=== PATIENT | male | born 1965 | race Caucasian/White ===

== ENCOUNTER 2023-05-31 09:46 | Outpatient (OUT) | payer BC, SELFPAY ==
--- NOTE | 2023-05-31 10:00 | XR_ITS ---
The [address] [address] Patient Name: LIZ SHELBY MRN: [id number] date: 1965 Sex: M Assigned Patient Location: RAD Current Patient Location: [facility] Accession/Order Number: [id number] Exam Date: 05/31/2023 10:00 Report Date: 05/31/2023 13:56 At the request of: PORSCHE AKHTAR Procedure: XR abdomen 1V EXAM: XR abdomen 1V HISTORY: Kidney Stones N20.0 COMPARISON: None. TECHNIQUE: AP view of the abdomen. FINDINGS: Nonobstructive bowel gas pattern is noted. There is a punctate calculus detected region of the right kidney. The osseous structures are intact. XR/XR abdomen 1V IMPRESSION: Nonobstructive bowel gas pattern. Punctate right nephrolithiasis. Electronically authenticated by: LIZ CHASE Date: 05/31/2023 13:56
== END 2023-05-31 09:47 | disposition home or self-care (01) ==
LOC: RAD 09:50
PROVIDERS: PCP Family Medicine; Visit Provider Urology
DX: N20.0 Calculus of kidney (principal)
CPT/HCPCS: 74018

== ENCOUNTER 2023-06-27 09:40 | Outpatient (OUT) | payer BC, SELFPAY ==
[2023-06-27 10:03] LABS: Basophils Absolute Auto 0.1 10^3/uL (0.0-0.1); Basophils Percent Auto 0.6 % (0.2-2.0); Eosinophils Absolute Auto 0.2 10^3/uL (0.0-0.7); Eosinophils Percent Auto 2.5 % (0.9-7.0); Hematocrit 42.8 % (42.0-54.0); Hemoglobin 14.3 g/dL (14.0-18.0); Immature Granulocytes Abs Auto 0.02 10^3/uL (0.00-0.03); Immature Granulocytes Pct Auto 0.2 % (0.0-0.5); Lymphocytes Absolute Auto 1.6 10^3/uL (1.2-3.8); Lymphocytes Percent Auto 20.2 % (20.5-60.0); Mean Corpuscular HGB Conc 33.4 g/dL (29.9-35.2); Mean Corpuscular Hemoglobin 31.4 pg (25.9-34.0); Mean Corpuscular Volume 93.9 fL (80.0-94.0); Mean Platelet Volume 9.4 fL (9.5-13.5); Monocytes Absolute Auto 0.6 10^3/uL (0.3-0.8); Monocytes Percent Auto 6.9 % (1.7-12.0); Neutrophils Absolute Auto 5.7 10^3/uL (1.4-6.5); Neutrophils Percent Auto 69.6 % (43.0-75.0); Platelet Count 287 10^3/uL (150-450); Red Blood Count 4.56 10^6/uL (4.70-6.10); Red Cell Distribution Width 12.4 % (11.0-15.0); White Blood Count 8.1 10^3/uL (4.0-11.0)
[2023-06-27 11:49] LABS: Alanine Aminotransferase 50 U/L (16-63); Albumin Globulin Ratio 1.1; Albumin Level 3.6 g/dL (3.4-5.0); Alkaline Phosphatase 61 U/L (46-116); Anion Gap 11.2; Aspartate Amino Transferase 23 U/L (15-37); BUN Creatinine Ratio 13.1; Bilirubin Total 0.6 mg/dL (0.2-1.0); Calcium 8.7 mg/dL (8.5-10.1); Carbon Dioxide 30.5 mmol/L (21.0-32.0); Chloride 102 mmol/L (98-107); Chol HDL Ratio 4.5; Cholesterol 188 mg/dL (<=200); Estimated GFR (African America >60 (>=60); Estimated GFR (Non-African Ame >60 (>=60); Free T3 2.25 pg/mL (2.18-3.98); Globulin 3.3 g/dL; Glucose 144 mg/dL (74-106); HDL Cholesterol 42 mg/dL (40-60); Potassium 3.7 mmol/L (3.5-5.1); Sodium 140 mmol/L (136-145); Thyroid Stimulating Hormone 5.904 uIU/mL (0.358-3.740); Total Protein 6.9 g/dL (6.4-8.2); Triglycerides 204 mg/dL (<=150); VLDL CHOLESTEROL 40.8 mg/dL
[2023-06-27 11:57] LABS: Prostate Specific Antigen Scrn 0.22 ng/mL (<=4.00)
[2023-06-27 12:05] LABS: Estimated Average Glucose 148 mg/dL; Glycohemoglobin A1C 6.8 % (4.5-6.2)
== END 2023-06-27 09:41 | disposition home or self-care (01) ==
PROVIDERS: PCP Family Medicine; Visit Provider Family Medicine
DX: Z00.00 Encounter for general adult medical examination without abnormal findings (principal); I10 Essential (primary) hypertension; E03.9 Hypothyroidism, unspecified; E11.9 Type 2 diabetes mellitus without complications; Z12.5 Encounter for screening for malignant neoplasm of prostate; D64.9 Anemia, unspecified; Z79.899 Other long term (current) drug therapy
CPT/HCPCS: 36415; 80053; 80061; 83036; 84436; 84443; 84481; 85025; G0103

== ENCOUNTER 2023-07-26 10:05 | Outpatient (OUT) | payer BC, SELFPAY ==
[2023-07-26 10:54] LABS: Free T4 0.95 ng/dL (0.76-1.46)
[2023-07-26 11:47] LABS: Free T3 2.45 pg/mL (2.18-3.98); Thyroid Stimulating Hormone 4.689 uIU/mL (0.358-3.740)
== END 2023-07-26 10:06 | disposition home or self-care (01) ==
PROVIDERS: PCP Family Medicine; Visit Provider Family Medicine
DX: E03.9 Hypothyroidism, unspecified (principal)
CPT/HCPCS: 36415; 84439; 84443; 84481

== ENCOUNTER 2023-09-30 07:50 | Outpatient (OUT) | payer BC, SELFPAY ==
--- OUTSIDE RECORDS SUMMARY | 2023-09-30 07:55 | XMS_ITS | CCD ---
Author Name Unknown Address [address] [place] [address] Organization [facility] Care Team Providers Care Pill Maker Name Role Phone Nancy Fernandez Primary Care Physician [phone] VELVET, DR CRUZ Primary Care Unavailable GIOVANA, DR YOVANY Kwan Consulting Unavailable COOK, DR YOVANY Kwan Admitting Unavailable COOK, DR YOVANY Kwan Attending Unavailable WEST, DR MANSOOR Porras Consulting Unavailable VELVET, DR CRUZ Primary Care Unavailable VELVET, DR CRUZ Admitting Unavailable VELVET, DR CRUZ Attending Unavailable VELVET, DR CRUZ Consulting Unavailable VELVET, DR CRUZ Primary Care Unavailable COOK, DR YOVANY Kwan Admitting Unavailable COOK, DR YOVANY Kwan Attending Unavailable COOK, DR YOVANY Kwan Consulting Unavailable JANIE, DR MANSOOR Porras Consulting Unavailable VELVET, DR CRUZ Primary Care Unavailable GIOVANA, DR YOVANY Kwan Admitting Unavailable COOK, DR YOVANY Kwan Attending Unavailable COOK, DR YOVANY Kwan Consulting Unavailable WEST, DR MANSOOR Porras Consulting Unavailable VELVET, DR CRUZ Admitting Unavailable VELVET, DR CRUZ Attending Unavailable VELVET, DR CRUZ Consulting Unavailable VELVET, DR CRUZ Primary Care Unavailable HUSSEIN, DR SOLO Oliver Consulting Unavailable MARILU MURGUIA Consulting Unavailable VELVET, DR CRUZ Primary Care Unavailable PETAR GARCIA Attending Unavailable PETAR GARCIA Admitting Unavailable VELVET, DR CRUZ Primary Care Unavailable RADHA TINSLEY Consulting Unavailable RADHA TINSLEY Admitting Unavailable RADHA TINSLEY Attending Unavailable BOO GUZMAN Consulting Unavailable VELVET, DR CRUZ Consulting Unavailable VELVET, DR CRUZ Admitting Unavailable VELVET, DR CRUZ Attending Unavailable VELVET, DR CRUZ Primary Care Unavailable TANISHA CHIU Consulting Unavailable Yovany AKHTAR Attending Unavailable Yovany AKHTAR Attending Unavailable Yovany AKHTAR Attending Unavailable Yovany AKHTAR Attending Unavailable Allergies Allergy Classification Reported Allergen(s) Allergy Type Date of Onset Reaction(s) Facility (6 sources) Acetaminophen / HYDROcodone; Translations: [acetaminophen-hyd rocodone] Drug Allergy Hyperactive behavior (finding) [facility] Medications Current Medications Medication Drug Class(es) Dates Sig (Normalized) Sig (Original) Albuterol (5 sources) beta2-Adrenergic Agonist Start: 04-28-2017 take 2 puff(s) by inhalation every six hours as needed for wheezing albuterol = 2 puff(s), Inhalation, q6hr, PRN Wheezing, Refills(s) 0 Start Date: 04/28/17 Status: Ordered ascorbic acid 250 mg oral tablet (1 source) Vitamin C Start: 07-29-2020 take 1 tablet by mouth once daily Vitamin C 250 mg oral tablet 250 mg = 1 tab(s), Oral, Daily, Prophylaxis Start Date: 07/29/20 Status: Ordered carvedilol 25 mg oral tablet (5 sources) alpha-Adrenergic Esperanza, beta-Adrenergic Esperanza Start: 03-06-2019 Coreg 25 mg Tab 37.5 mg = 1.5 tab(s), Oral, BID, Prophylaxis Start Date: 03/06/19 Status: Ordered Daily Multiple Vitamins (5 sources) Start: 02-19-2019 take 1 tablet by mouth once daily Daily Multiple Vitamins 1 tab(s), Oral, Daily, Refill(s) 0, Prophylaxis Start Date: 02/19/19 Status: Ordered diclofenac sodium 75 mg delayed release oral tablet (5 sources) Nonsteroidal Anti-inflammatory Drug Start: 07-29-2020 take 1 tablet by mouth twice daily diclofenac sodium 75 mg Oral EC Tab 75 mg = 1 tab(s), Oral, BID, Refills(s) 0, Inflammation Start Date: 07/29/20 Status: Ordered Start: 07-29-2020 take 1 tablet by cindy th twice daily diclofenac sodium 75 mg Oral EC Tab 75 mg = 1 tab(s), Oral, BID, Refills(s) 0, Inflammation Start Date: 07/29/20 Status: Ordered hydrALAZINE hydrochloride 100 mg oral tablet (5 sources) Arteriolar Vasodilator Start: 04-28-2017 take 100 mg by mouth three times daily hydrALAZINE 100 mg, Oral, TID, Refills(s) 0, High blood pressure Start Date: 04/28/17 Status: Ordered hydroCHLOROthiazide 25 mg oral tablet (5 sources) Thiazide Diuretic Start: 02-19-2019 take 2 tablets by mouth once daily in the morning hydrochlorothiazide 25 mg oral tablet 50 mg = 2 tab(s), Oral, qAM, Refills(s) 0, High blood pressure Start Date: 02/19/19 Status: Ordered levothyroxine sodium 0.05 mg oral tablet (5 sources) l-Thyroxine Start: 07-29-2020 take 1 tablet by mouth once daily levothyroxine 50 mcg (0.05 mg) Tab 50 mcg = 1 tab(s), Oral, Daily, Thyroid Start Date: 07/29/20 Status: Ordered Start: 07-29-2020 take 1 tablet by cindy th once daily levothyroxine 50 mcg (0.05 mg) Tab 50 mcg = 1 tab(s), Oral, Daily, Thyroid Start Date: 07/29/20 Status: Ordered metFORMIN hydrochloride 500 mg oral tablet (5 sources) Biguanide Start: 05-08-2020 take 1 tablet by mouth twice daily metformin 500 mg ER Tab 500 mg = 1 tab(s), Oral, BID, Refills(s) 0, Blood glucose Start Date: 05/08/20 Status: Ordered olmesartan medoxomil 40 mg oral tablet (5 sources) Angiotensin 2 Receptor Esperanza Start: 03-06-2019 take 1 tablet by mouth at bedtime Benicar 40 mg Tab 40 mg = 1 tab(s), Oral, Bedtime, High blood pressure Start Date: 03/06/19 Status: Ordered pravastatin sodium 20 mg oral tablet (5 sources) HMG-CoA Reductase Inhibitor Start: 04-28-2017 take 20 mg by mouth once daily pravastatin 20 mg, Oral, Daily, Refills(s) 0, High cholesterol Start Date: 04/28/17 Status: Ordered tamsulosin hydrochloride 0.4 mg oral capsule (2 sources) alpha-Adrenergic Esperanza Start: 06-10-2022 take 1 capsule by mouth once daily tamsulosin 0.4 mg Cap 0.4 mg = 1 cap(s), Oral, Daily, # 30 cap(s), Refills(s) 2, Pharmacy: [facility] [place] #[id number], 188, cm, 06/10/22 9:57:00 EDT, Height/Length Dosing, 150, kg, 06/10/22 9:57:00 EDT, Weight Dosing Start Date: 06/10/22 Status: Ordered Ultram (5 sources) Opioid Agonist Start: 01-15-2021 take 1 mg by mouth every six hours as needed for pain Ultram mg, Oral, q6hr, PRN Pain/Fever, Refills(s) 0 Start Date: 01/15/21 Status: Ordered Vitamin C 250 mg oral tablet (4 sources) Start: 07-29-2020 take 1 tablet by mouth once daily Vitamin C 250 mg oral tablet 250 mg = 1 tab(s), Oral, Daily, Prophylaxis Start Date: 07/29/20 Status: Ordered Problems Active Problems Problem Classification Problem Date Documented Date Episodic/Chronic Abdominal pain (4 sources) Unspecified abdominal pain; Translations: [UNSPECIFIED ABDOMINAL PAIN] Onset: 05-29-20 Episodic Calculus of urinary tract (19 sources) Kidney stone; Translations: [Calculus of kidney] Onset: 01-22-20 Episodic Diabetes mellitus without complication (5 sources) Type 2 diabetes mellitus 02-19-2019 Chronic Esophageal disorders (5 sources) Gastroesophageal reflux disease 07-29-2020 Chronic Essential hypertension (6 sources) Hypertensive disorder; Translations: [Essential (primary) hypertension] Onset: 05-31-2007-29-2020 Chronic Genitourinary symptoms and ill-defined conditions (5 sources) Nocturia 07-10-2020 Episodic Hyperplasia of prostate (9 sources) Benign prostatic hypertrophy without outflow obstruction; Translations: [Benign prostatic hyperplasia without lower urinary tract symptoms] Onset: 01-22-20 Chronic Neoplasms of unspecified nature or uncertain behavior (5 sources) Neoplasm of uncertain behavior of skin 07-29-2020 Episodic Osteoarthritis (5 sources) Osteoarthritis 02-19-2019 Chronic Other aftercare (5 sources) Long-term current use of anticoagulant 02-19-2019 Episodic Other aftercare (1 source) Other long term care administrator (current) drug therapy; Translations: [OTH USP CURRENT DRUG THERAPY] Onset: 05-31-20 Episodic Other aftercare (1 source) senior care (current) use of aspirin; Translations: [USP CURRENT USE OF ASPIRIN] Onset: 05-31-20 Episodic Other and unspecified benign neoplasm (5 sources) Dermatofibroma 02-19-2019 Episodic Other circulatory disease (5 sources) H/O: cardiovascular disease 04-28-2017 Episodic Comment on above: superficial left leg february 2017 Other lower respiratory disease (5 sources) History of chronic lung disease 04-28-2017 Episodic Other nutritional; endocrine; and metabolic disorders (5 sources) Body mass index 40+ - severely obese 07-10-2020 Chronic Other nutritional; endocrine; and metabolic disorders (1 source) Obesity, unspecified; Translations: [OBESITY UNSPECIFIED] Onset: 05-31-20 Chronic Other nutritional; endocrine; and metabolic disorders (1 source) Body mass index (BMI) 40.0-44.9, adult; Translations: [BODY MASS INDEX BMI 40.0-44.9 ADULT] Onset: 05-31-20 Chronic Other nutritional; endocrine; and metabolic disorders (5 sources) History of hypercholesterolemia 04-28-2017 Episodic Other screening for suspected conditions (not mental disorders or infectious disease) (5 sources) Raised prostate specific antigen 07-10-2020 Episodic Phlebitis; thrombophlebitis and thromboembolism (5 sources) Thrombophlebitis of lower extremities 07-29-2020 Episodic Residual codes; unclassified (5 sources) H/O: anticoagulant therapy 07-10-2020 Episodic Spondylosis; intervertebral disc disorders; other back problems (5 sources) Other intervertebral disc displacement, lumbar region; Translations: [Other intervertebral disc degeneration, lumbar region] Onset: 09-29-19 Chronic Thyroid disorders (5 sources) Hypothyroidism 07-29-2020 Chronic Urinary tract infections (1 source) Urinary tract infection, site not specified; Translations: [UTI SITE NOT SPECIFIED] Onset: 05-31-20 Episodic Past or Other Problems Problem Classification Problem Date Documented Da te Episodic/Chronic E Codes: Cut/pierceb (1 source) Contact with other sharp object(s), not elsewhere classified, initial encounter; Translations: [[facility] OT SHRP OB NOT ELSW CLASS INI] Onset: 10-01-2021 Episodic Immunizations and screening for infectious disease (1 source) Encounter for immunization; Translations: [ENCOUNTER FOR IMMUNIZATION] Onset: 10-01-2021 Episodic Open wounds of extremities (4 sources) Laceration without foreign body of left wrist, initial encounter; Translations: [LACERATION W/O FB LT WRIST INITIAL] Onset: 09-29-2021 Episodic Results Test Name Value Interpretation Reference Range Facility Screenson 06-07-2023 Screens [id number]# 1.00CD:127 [facility] Ambulatory Visit Summaryon 1 Ambulatory Visit Summary LIZ SHELBY :1965 Visit Date:06/06/2023 Ambulatory Visit Instructions Your Diagnosis BPH (benign prostatic hyperplasia) Kidney stone Tests Performed Urnls Dip Stick Auto w/o Microscopy POC 02919 XR Abdomen 1 View -- Results Pending -- Please visit your patient portal for your results or contact your primary care physician. Your Care Team Attending Physician - Yovany AKHTAR MD Primary Care Physician - Nancy Fernandez MD This Is Your Medications List albuterol ascorbic acid (Vitamin C 250 mg oral tablet) carvedilol (Coreg 25 mg Tab) diclofenac (diclofenac sodium 75 mg Oral EC Tab) hydrALAZINE hydrochlorothiazide (hydrochlorothiazide 25 mg oral tablet) levothyroxine (levothyroxine 50 mcg (0.05 mg) Tab) metformin (metformin 500 mg ER Tab) multivitamin (Daily Multiple Vitamins) olmesartan (Benicar 40 mg Tab) pravastatin tramadol (Ultram) Procedures Performed ESWL - Extracorporeal shockwave lithotripsy for renal calculus (05/26/2022), ESWL - Extracorporeal shockwave lithotripsy for renal calculus (08/13/2020), Closure of anal fistula, Dental surgical procedure, Gallbladder, History of tonsillectomy, Kidney stones, l4 l5 disectomy, carlo anal abcess. Discharge Vitals Heart Rate (Peripheral) 83 Blood Pressure 142/66 Height 188 cm Height 74 in Weight 145.2 kg Weight 319.44 lb BMI 41.08 What to do next Scheduled Follow-Up Appointments Monday 8:00 AM EDT With: Yovany AKHTAR MD Where: [facility] Patient Educationon 06-06-20 Patient Education Nephrology Dietary Guidelines to Help Prevent Kidney Stones Kidney stones are deposits of minerals and salts that form inside your kidneys. Your risk of developing kidney stones may be greater depending on your diet, your lifestyle, the medicines you take, and whether you have certain medical conditions. Most people can lower their chances of developing kidney stones by following the instructions below. Your dietitian may give you more specific instructions depending on your overall health and the type of kidney stones you tend to develop. What are tips for following this plan? Reading food labels ? Choose foods with no salt added or low-salt labels. Limit your salt (sodium) intake to less than 1,500 mg a day. ? Choose foods with calcium for each meal and snack. Try to eat about 300 mg of calcium at each meal. Foods that contain 200?500 mg of calcium a serving include: ? 8 oz (237 mL) of milk, calcium-fortifiednon- dairy milk, and calcium-fortifiedfrui t juice. Calcium-fortified means that calcium has been added to these drinks. ? 8 oz (237 mL) of kefir, yogurt, and soy yogurt. ? 4 oz (114 g) of tofu. ? 1 oz (28 g) of cheese. ? 1 cup (150 g) of dried figs. ? 1 cup (91 g) of cooked broccoli. ? One 3 oz (85 g) can of sardines or mackerel. Most people need 1,000?1,500 mg of calcium a day. Talk to your dietitian about how much calcium is recommended for you. Shopping ? Buy plenty of fresh fruits and vegetables. Most people do not need to avoid fruits and vegetables, even if these foods contain nutrients that may contribute to kidney stones. ? When shopping for convenience foods, choose: ? Whole pieces of fruit. ? Pre-made salads with dressing on the side. ? Low-fat fruit and yogurt smoothies. ? Avoid buying frozen meals or prepared deli foods. These can be high in sodium. ? Look for foods with live cultures, such as yogurt and kefir. ? Choose high-fiber grains, such as whole-wheat breads, oat bran, and wheat cereals. Cooking ? Do not add salt to food when cooking. Place a salt shaker on the table and allow each person to add his or her own salt to taste. ? Use vegetable protein, such as beans, textured vegetable protein (TVP), or tofu, instead of meat in pasta, casseroles, and soups. Meal planning ? Eat less salt, if told by your dietitian. To do this: ? Avoid eating processed or pre-made food. ? Avoid eating fast food. ? Eat less animal protein, including cheese, meat, poultry, or fish, if told by your dietitian. To do this: ? Limit the number of times you have meat, poultry, fish, or cheese each week. Eat a diet free of meat at least 2 days a week. ? Eat only one serving each day of meat, poultry, fish, or seafood. ? When you prepare animal protein, cut pieces into small portion sizes. For most meat and fish, one serving is about the size of the palm of your hand. ? Eat at least five servings of fresh fruits and vegetables each day. To do this: ? Keep fruits and vegetables on hand for snacks. ? Eat one piece of fruit or a handful of berries with breakfast. ? Have a salad and fruit at lunch. ? Have two kinds of vegetables at dinner. ? Limit foods that are high in a substance called oxalate. These include: ? Spinach (cooked), rhubarb, beets, sweet potatoes, and Cymro chard. ? Peanuts. ? Potato chips, martiniquais fries, and baked potatoes with skin on. ? Nuts and nut products. ? Chocolate. ? If you regularly take a diuretic medicine, make sure to eat at least 1 or 2 servings of fruits or vegetables that are high in potassium each day. These include: ? Avocado. ? Banana. ? [place]stone, prune, carrot, or tomato juice. ? Baked potato. ? Cabbage. ? Beans and split peas. Lifestyle ? Drink enough fluid to keep your urine pale yellow. This is the most important thing you can do. Spread your fluid intake throughout the day. ? If you drink alcohol: ? Limit how much you use to: ? 0?1 drink a day for women who are not . ? 0?2 drinks a day for men. ? Be aware of how much alcohol is in your drink. In the [place] one drink equals one 12 oz bottle of beer (355 mL), one 5 oz glass of wine (148 mL), or one 1? oz glass of hard liquor (44 mL). ? Lose weight if told by your health care provider. Work with your dietitian to find an eating plan and weight loss strategies that work best for you. General information ? Talk to your health care provider and dietitian about taking daily supplements. You may be told the following depending on your health and the cause of your kidney stones: ? Not to take supplements with vitamin C. ? To take a calcium supplement. ? To take a daily probiotic supplement. ? To take other supplements such as magnesium, fish oil, or vitamin B6. ? Take yksg-yrn-lynswiv and prescription medicines only as told by your health care provider. These include supplements. What foods should I limit? Limit your in (more content not included)... [facility] Urology Office/Clinic Noteon 06-06-2023 Urology Office/Clinic Note Chief Complaint 1 year follow up w/ KUB HPI Staff 1 yr f/u w/ KUB Previous DX:BPH and Kidney Stones. PSA are managed by PCP. S/p ESWL 08/13/20, 05/26/22 S/p Rt Lithotripsy 05/26/22 KUB done on 05/31/23. Dysuria: denies pain and burning Incomplete bladder emptying: denies Hematuria: denies visible blood Frequency: denies Urgency: denies Nocturia: denies Stream: denies hesitancy, good stream Leaking: denies Post void dripping: denies Wearing pads/ Depends: denies Urge incontinence: denies Stress incontinence: denies Incontinence without Sensory Awareness: denies Abdominal pain: denies Flank pain: denies Sexual complaints: denies History of Present Illness Tests reviewed: reviewed UA and KUB. I have reviewed the previous health record information and history for this patient from . I have reviewed and verified the staff HPI to be accurate for this encounter. There have been no associated fever, chills, flank pain, or blood in the urine. Denies any urinary infections since last encounter. Review of Systems PHQ Score Initial Depression Screen Score: 0 ROS - Provider Constitutional: denies weight loss, denies hot flashes. Eyes: denies eye problems. Gastrointestinal: denies nausea, denies vomiting. Cardiovascular: denies chest pain or angina. Integumentary: no dryness Musculoskeletal: denies musculoskeletal symptoms. ENMT: denies otolaryngeal symptoms. Respiratory: no shortness of breath. Heme/Lymph: denies easy bleeding tendency, denies easy bruising tendency. Psychiatric: no confusion, no anxiety. Genitourinary: See HPI. Physical Exam Vitals & Measurements HR: 83(Peripheral) BP: 142/66 HT: 74 in HT: 188 cm WT: 145.2 kg WT: 319.44 lb BMI: 41.08 General Appearance: alert, no distress, well nourished, well developed male. Assessment/Plan 1. BPH (benign prostatic hyperplasia) (N40.0: Benign prostatic hyperplasia without lower urinary tract symptoms) Most recent PSA 0.3 and 33.0% done 01/14/2021. Prior PSA was done 07/07/20 and was 0.5 which is down from 5.5 which was done 04/15/20. Gets his PSA every year from his PCP . UA today is negative for blood and infection. IPSS 3 Pt has no urinary complaints at this time. 2. Kidney stone (N20.0: Calculus of kidney) S/p ESWL 08/13/2020 S/P ESWL done 05/26/22 S/P RT Lithotripsy 05/26/22 KUB 06/16/22- neg for stones KUB 05/31/23 - punctate Rt nephrolithiasis Discussed imaging findings with pt, may have a stone in the Rt kidney, hard to view with bowels in the way. Advised pt that it is small enough to pass on it's own and will need to be monitored with routine imaging. Advised pt to drink more fluids. Follow up in 1 yr w/ KUB. All questions/concerns were discussed. Pt to call the office if he encounters any issues prior. Pt acknowledges understanding. -Will order KUB. -Encourage to continue drinking plenty of water, and adding citrate such as lemonade, lemon juice, or crystal light to help prevent making any stones. Overall the patient is doing well. He has had no stone passage since last visit. Reviewed KUB. There appears to be a 2 to 3 mm stone in the right lower pole. He does have some overlying bowel gas and stool. At this point Dr. Fernandez is still checking PSA levels and his level has remained in acceptable range despite a previous elevation to 5.5. 1 year follow-up Follow-up With When Contact Information GIOVANA CANTOR, Yovayn Kwan, URL In 1 year [address] [address]- Additional Instructions: w/KUB Patient Education Dietary Guidelines to Help Prevent Kidney Stones I, Maura Teixeira, personally scribed for Dr. Akhtar on 06/06/2023 09:27:44. . Documentation recorded by the scribe, Maura Teixeira, accurately reflects the services(s) I performed and decisions made by me. Authenticated by Dr. Akhtar on 06/06/2023 09:31:33. Portions of this record may have been created with voice recognition artificial intelligence software, specifically AGELON ?, Meta and or Cordium. Substitutions may have occurred due to the inherent limitations of voice recognition and artificial intelligence software. Problem List/Past Medical History Ongoing BMI 40.0-44.9, adult BPH (benign prostatic hyperplasia) Chronic anticoagulation Dermatofibroma of left upper arm Diabetes mellitus type 2, noninsulin dependent Elevated PSA Hx of longterm use of blood thinners Kidney stone Nocturia Osteoarthritis Historical GERD (gastroesophageal reflux disease) Neoplasm of uncertain behavior of skin Thrombophlebitis of lower extremities Procedure/Surgical History ESWL - Extracorporeal shockwave lithotripsy for renal calculus (05/26/2022), ESWL - Extracorporeal shockwave lithotripsy for renal calculus (08/13/2020), Closure of anal fistula, Dental surgical procedure, Gallbladder, (more content not included)... [facility] Comment on above: Result Comment: Elec tronically Signed By: Yovany AKHTAR MD\.br\Date and Time Signed: 06/06/23 09:32 EDT\.br\Electronically Co-Signed By: Maura Teixeira.br\Date and Time Co-Signed: 06/06/23 09:28 EDT RAD - MISCon 05-31-2023 RAD - MISC [id number]. 00CD:127 [facility] RAD - MISCon 06-20-2022 RAD - MISC [id number] .00CD:127 [facility] [id number] .00CD:127 [facility] Patient Educationon 06-17-20 Patient Education Urology Dietary Guidelines to Help Prevent Kidney Stones Kidney stones are deposits of minerals and salts that form inside your kidneys. Your risk of developing kidney stones may be greater depending on your diet, your lifestyle, the medicines you take, and whether you have certain medical conditions. Most people can reduce their chances of developing kidney stones by following the instructions below. Depending on your overall health and the type of kidney stones you tend to develop, your dietitian may give you more specific instructions. What are tips for following this plan? Reading food labels ? Choose foods with no salt added or low-salt labels. Limit your sodium intake to less than 1500 mg per day. ? Choose foods with calcium for each meal and snack. Try to eat about 300 mg of calcium at each meal. Foods that contain 200?500 mg of calcium per serving include: ? 8 oz (237 ml) of milk, fortified nondairy milk, and fortified fruit juice. ? 8 oz (237 ml) of kefir, yogurt, and soy yogurt. ? 4 oz (118 ml) of tofu. ? 1 oz of cheese. ? 1 cup (300 g) of dried figs. ? 1 cup (91 g) of cooked broccoli. ? 1?3 oz can of sardines or mackerel. ? Most people need 1000 to 1500 mg of calcium each day. Talk to your dietitian about how much calcium is recommended for you. Shopping ? Buy plenty of fresh fruits and vegetables. Most people do not need to avoid fruits and vegetables, even if they contain nutrients that may contribute to kidney stones. ? When shopping for convenience foods, choose: ? Whole pieces of fruit. ? Premade salads with dressing on the side. ? Low-fat fruit and yogurt smoothies. ? Avoid buying frozen meals or prepared deli foods. ? Look for foods with live cultures, such as yogurt and kefir. Cooking ? Do not add salt to food when cooking. Place a salt shaker on the table and allow each person to add his or her own salt to taste. ? Use vegetable protein, such as beans, textured vegetable protein (TVP), or tofu instead of meat in pasta, casseroles, and soups. Meal planning ? Eat less salt, if told by your dietitian. To do this: ? Avoid eating processed or premade food. ? Avoid eating fast food. ? Eat less animal protein, including cheese, meat, poultry, or fish, if told by your dietitian. To do this: ? Limit the number of times you have meat, poultry, fish, or cheese each week. Eat a diet free of meat at least 2 days a week. ? Eat only one serving each day of meat, poultry, fish, or seafood. ? When you prepare animal protein, cut pieces into small portion sizes. For most meat and fish, one serving is about the size of one deck of cards. ? Eat at least 5 servings of fresh fruits and vegetables each day. To do this: ? Keep fruits and vegetables on hand for snacks. ? Eat 1 piece of fruit or a handful of berries with breakfast. ? Have a salad and fruit at lunch. ? Have two kinds of vegetables at dinner. ? Limit foods that are high in a substance called oxalate. These include: ? Spinach. ? Rhubarb. ? Beets. ? Potato chips and martiniquais fries. ? Nuts. ? If you regularly take a diuretic medicine, make sure to eat at least 1?2 fruits or vegetables high in potassium each day. These include: ? Avocado. ? Banana. ? Blackstone, prune, carrot, or tomato juice. ? Baked potato. ? Cabbage. ? Beans and split peas. General instructions ? Drink enough fluid to keep your urine clear or pale yellow. This is the most important thing you can do. ? Talk to your health care provider and dietitian about taking daily supplements. Depending on your health and the cause of your kidney stones, you may be advised: ? Not to take supplements with vitamin C. ? To take a calcium supplement. ? To take a daily probiotic supplement. ? To take other supplements such as magnesium, fish oil, or vitamin B6. ? Take all medicines and supplements as told by your health care provider. ? Limit alcohol intake to no more than 1 drink a day for non women and 2 drinks a day for men. One drink equals 12 oz of beer, 5 oz of wine, or 1? oz of hard liquor. ? Lose weight if told by your health care provider. Work with your dietitian to find strategies and an eating plan that works best for you. What foods are not recommended? Limit your intake of the following foods, or as told by your dietitian. Talk to your dietitian about specific foods you should avoid based on the type of kidney stones and your overall health. Grains Breads. Bagels. Rolls. Baked goods. Salted crackers. Cereal. Pasta. Vegetables Spinach. Rhubarb. Beets. Canned vegetables. Pickles. Olives. Meats and other protein foods Nuts. Nut butters. Large portions of meat, poultry, or fish. Salted or cured meats. Deli meats. Hot dogs. Sausages. Dairy Cheese. Beverages Regular soft drinks. Regular vegetable juice. Seasonings and other foods Seasoning blends with salt. Salad dr (more content not included)... Normal [facility] Urology Office/Clinic Noteon 06-17-2022 Urology Office/Clinic Note Chief Complaint 1 week follow up w/ KUB HPI Staff 1 week follow up w/ KUB. Previous DX: elevated PSA, kidney stones, nocturia. S/P ESWL done 05/26/22. Dysuria: denies pain and burning Incomplete bladder emptying: denies Hematuria: denies visible blood Frequency: denies Urgency: denies Nocturia: denies Stream: denies Leaking: denies Post void dripping: denies Wearing pads/ Depends: denies Urge incontinence: denies Stress incontinence: denies Incontinence without Sensory Awareness: denies Abdominal pain: denies Flank pain: denies Sexual complaints: denies History of Present Illness Tests Reviewed: Reviewed UA. I have reviewed and verified the staff HPI to be accurate for this encounter. I have reviewed the previous health record information and history for this patient from Dr. Akhtar There have been no associated fever, chills, flank pain, or blood in the urine. Denies any urinary infections since last encounter. Review of Systems PHQ Score Initial Depression Screen Score: 0 ROS - Provider Constitutional: denies weight loss, denies hot flashes. Eyes: denies eye problems. Gastrointestinal: denies nausea, denies vomiting. Cardiovascular: denies chest pain or angina. Integumentary: no dryness Musculoskeletal: denies musculoskeletal symptoms. ENMT: denies otolaryngeal symptoms. Respiratory: no shortness of breath. Heme/Lymph: denies easy bleeding tendency, denies easy bruising tendency. Psychiatric: no confusion, no anxiety. Genitourinary: denies dysuria, denies hematuria, denies discharge, denies urinary frequency, denies urinary hesitancy, denies nocturia, denies incontinence, denies genital sores, denies decreased libido, and denies erectile dysfunction. Physical Exam Vitals & Measurements HR: 67(Peripheral) BP: 159/96 HT: 74 in HT: 188 cm WT: 150 kg WT: 330 lb BMI: 42.44 General Appearance: alert, no distress, well nourished, well developed male. Genitourinary: normal scrotum, normal testes, normal urethra, normal epididymis, normal vas deferens/spermatic cord. Flank Pain: none. Bladder: nonpalpable. Assessment/Plan 1. BPH (benign prostatic hyperplasia) (N40.0: Benign prostatic hyperplasia without lower urinary tract symptoms) - Most recent PSA 0.3 and 33.0% done 01/14/2021. Prior PSA was done 07/07/20 and was 0.5 which is down from 5.5 which was done 04/15/20. Gets his PSA every year from his PCP . - Pt has no urinary complaints at this time. 2. Kidney stones (N20.0: Calculus of kidney) - S/p ESWL 08/13/2020 - S/P ESWL done 05/26/22 - S/P RT Lithotripsy 05/26/22 - KUB 06/16/22- neg for stones - Pt brought stones in that he passed. - Advised pt that he can d/c Flomax - Pt had 24 hour urine in the past, discussed repeating 24 hour, to see if the results will shows anything new, to help prevent forming stones. - Pt will like to proceed with dietary modifications to help prevent forming stones. - Encourage to continue drinking plenty of water, and adding citrate such as lemonade, lemon juice, or crystal light to help prevent making any stones. - Will continue to monitor for any stones with repeat KUB in 6 months. Pt agrees with plan. He knows to call our office if he develops any stone complications prior to next appt. Overall the patient has passed very large stone fragments which will exceed the 6 mm stone with documented by CT scan. I informed the patient that he should be quite happy to have passed a stone fragment this large. KUB reviewed demonstrating no obvious calcifications. He is already on the low oxalate diet as well delineated above. Plan will be for a 6-month follow-up with KUB Follow-up With When Contact Information Yovany AKHTAR MD, URL Within 6 months [address] [place], [place] [id number]- Additional Instructions: w/ KUB Patient Education Dietary Guidelines to Help Prevent Kidney Stones I, Lucero Robles, personally scribed for Dr. Akhtar on 06/17/2022 09:35:39. . Documentation recorded by the scribe, Lucero Robles, accurately reflects the services(s) I performed and decisions made by me. Authenticated by Dr. Akhtar on 06/17/2022 09:37:11. 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 Normal [facility] Comment on above: Result Comment: Elec tronically Signed By: Yovany AKHTAR MD\.br\Date and Time Signed: 06/17/22 09:37 EDT\.br\Electronically Co-Signed By: Lucero Robles\.br\Date and Time Co-Signed: 06/17/22 09:35 EDT XR KUB 1 VIEWon 06-16-2022 XR KUB 1 VIEW EXAMINATION: XR KUB 1 VIEW HISTORY: Kidney stone COMPARISON: 06/09/2022 FINDINGS: KIDNEY/URETER - RIGHT: No visible renal or ureteral calcifications. KIDNEY/URETER - LEFT: No visible renal or ureteral calcifications. PELVIS: No visible ureteral calcifications. Any visible calcifications favor phleboliths. BOWEL: No abnormal dilation or deviation. BONES: No acute abnormality. OTHER: Negative. No abnormal gaseous collections. IMPRESSION: No definite urinary tract calculi Electronically authenticated by: MANSOOR LIMA Date: 2022-06-16 18:56 Normal [facility] Patient Educationon 06-10-20 Patient Education Urology Dietary Guidelines to Help Prevent Kidney Stones Kidney stones are deposits of minerals and salts that form inside your kidneys. Your risk of developing kidney stones may be greater depending on your diet, your lifestyle, the medicines you take, and whether you have certain medical conditions. Most people can reduce their chances of developing kidney stones by following the instructions below. Depending on your overall health and the type of kidney stones you tend to develop, your dietitian may give you more specific instructions. What are tips for following this plan? Reading food labels ? Choose foods with no salt added or low-salt labels. Limit your sodium intake to less than 1500 mg per day. ? Choose foods with calcium for each meal and snack. Try to eat about 300 mg of calcium at each meal. Foods that contain 200?500 mg of calcium per serving include: ? 8 oz (237 ml) of milk, fortified nondairy milk, and fortified fruit juice. ? 8 oz (237 ml) of kefir, yogurt, and soy yogurt. ? 4 oz (118 ml) of tofu. ? 1 oz of cheese. ? 1 cup (300 g) of dried figs. ? 1 cup (91 g) of cooked broccoli. ? 1?3 oz can of sardines or mackerel. ? Most people need 1000 to 1500 mg of calcium each day. Talk to your dietitian about how much calcium is recommended for you. Shopping ? Buy plenty of fresh fruits and vegetables. Most people do not need to avoid fruits and vegetables, even if they contain nutrients that may contribute to kidney stones. ? When shopping for convenience foods, choose: ? Whole pieces of fruit. ? Premade salads with dressing on the side. ? Low-fat fruit and yogurt smoothies. ? Avoid buying frozen meals or prepared deli foods. ? Look for foods with live cultures, such as yogurt and kefir. Cooking ? Do not add salt to food when cooking. Place a salt shaker on the table and allow each person to add his or her own salt to taste. ? Use vegetable protein, such as beans, textured vegetable protein (TVP), or tofu instead of meat in pasta, casseroles, and soups. Meal planning ? Eat less salt, if told by your dietitian. To do this: ? Avoid eating processed or premade food. ? Avoid eating fast food. ? Eat less animal protein, including cheese, meat, poultry, or fish, if told by your dietitian. To do this: ? Limit the number of times you have meat, poultry, fish, or cheese each week. Eat a diet free of meat at least 2 days a week. ? Eat only one serving each day of meat, poultry, fish, or seafood. ? When you prepare animal protein, cut pieces into small portion sizes. For most meat and fish, one serving is about the size of one deck of cards. ? Eat at least 5 servings of fresh fruits and vegetables each day. To do this: ? Keep fruits and vegetables on hand for snacks. ? Eat 1 piece of fruit or a handful of berries with breakfast. ? Have a salad and fruit at lunch. ? Have two kinds of vegetables at dinner. ? Limit foods that are high in a substance called oxalate. These include: ? Spinach. ? Rhubarb. ? Beets. ? Potato chips and martiniquais fries. ? Nuts. ? If you regularly take a diuretic medicine, make sure to eat at least 1?2 fruits or vegetables high in potassium each day. These include: ? Avocado. ? Banana. ? Blackstone, prune, carrot, or tomato juice. ? Baked potato. ? Cabbage. ? Beans and split peas. General instructions ? Drink enough fluid to keep your urine clear or pale yellow. This is the most important thing you can do. ? Talk to your health care provider and dietitian about taking daily supplements. Depending on your health and the cause of your kidney stones, you may be advised: ? Not to take supplements with vitamin C. ? To take a calcium supplement. ? To take a daily probiotic supplement. ? To take other supplements such as magnesium, fish oil, or vitamin B6. ? Take all medicines and supplements as told by your health care provider. ? Limit alcohol intake to no more than 1 drink a day for non women and 2 drinks a day for men. One drink equals 12 oz of beer, 5 oz of wine, or 1? oz of hard liquor. ? Lose weight if told by your health care provider. Work with your dietitian to find strategies and an eating plan that works best for you. What foods are not recommended? Limit your intake of the following foods, or as told by your dietitian. Talk to your dietitian about specific foods you should avoid based on the type of kidney stones and your overall health. Grains Breads. Bagels. Rolls. Baked goods. Salted crackers. Cereal. Pasta. Vegetables Spinach. Rhubarb. Beets. Canned vegetables. Pickles. Olives. Meats and other protein foods Nuts. Nut butters. Large portions of meat, poultry, or fish. Salted or cured meats. Deli meats. Hot dogs. Sausages. Dairy Cheese. Beverages Regular soft drinks. Regular vegetable juice. Seasonings and other foods Seasoning blends with salt. Anjana cruz (more content not included)... [facility] [phone] [id number] Normal [facility] Urology Office/Clinic Noteon 06-10-2022 Urology Office/Clinic Note Chief Complaint Follow up HPI Staff Pt is here for PO ESWL. Pt went to [facility] 05/29/22 for right flank pain. CT showed kidneys, ureters and bladder: 2mm right distal ureteral calculus and 6mm right UPJ stone w/ hydronephrosis. Dysuria: denies pain, some burning Incomplete bladder emptying: denies Hematuria: denies visible blood Frequency: 6-7x a day Urgency: sometimes Nocturia: 2x a night Stream: denies hesitancy, denies weak stream Leaking: yes Post void dripping: yes Wearing pads/ Depends: denies Urge incontinence: yes Stress incontinence: denies Incontinence without Sensory Awareness: denies Abdominal pain: yes Flank pain: denies Sexual complaints: denies History of Present Illness Tests Reviewed: Reviewed UA. I have reviewed and verified the staff HPI to be accurate for this encounter. I have reviewed the previous health record information and history for this patient from Dr. Akhtar There have been no associated fever, chills, flank pain, or blood in the urine. Denies any urinary infections since last encounter. Review of Systems PHQ Score Initial Depression Screen Score: 0 ROS - Provider Constitutional: denies weight loss, denies hot flashes. Eyes: denies eye problems. Gastrointestinal: denies nausea, denies vomiting. Cardiovascular: denies chest pain or angina. Integumentary: no dryness Musculoskeletal: denies musculoskeletal symptoms. ENMT: denies otolaryngeal symptoms. Respiratory: no shortness of breath. Heme/Lymph: denies easy bleeding tendency, denies easy bruising tendency. Psychiatric: no confusion, no anxiety. Genitourinary: denies dysuria, denies hematuria, denies discharge, denies urinary frequency, denies urinary hesitancy, denies nocturia, denies incontinence, denies genital sores, denies decreased libido, and denies erectile dysfunction. Physical Exam Vitals & Measurements HR: 68(Peripheral) BP: 166/102 HT: 74 in HT: 188 cm WT: 150 kg WT: 330 lb BMI: 42.44 General Appearance: alert, no distress, well nourished, well developed male. Genitourinary: normal scrotum, normal testes, normal urethra, normal epididymis, normal vas deferens/spermatic cord. Flank Pain: none. Bladder: nonpalpable. Assessment/Plan 1. BPH (benign prostatic hyperplasia) (N40.0: Benign prostatic hyperplasia without lower urinary tract symptoms) - UA today is clear/neg for any blood or infections - Most recent PSA 0.3 and 33.0% done 01/14/2021. Prior PSA was done 07/07/20 and was 0.5 which is down from 5.5 which was done 04/15/20. Gets his PSA every year from his PCP . - Pt has no urinary complaints at this time. 2. Kidney stones (N20.0: Calculus of kidney) - S/p ESWL 08/13/2020 - CT done 05/29/22 at [facility] showed 2mm right distal ureteral calculus. Additional 6mm right UPJ calculus - S/P RT Lithotripsy 05/26/22 - KUB done 06/09/22 at [facility] stated there is no visible renal or ureteral calcifications. - Pt denies any flank pain today - Pt brought in a kidney stone that he has passed recently - Pt may still have stone fragments in his ureter distally. Discussed options for treatment, such as waiting to see if he can pass the remaining stones on his own, or to schedule a surgical procedure such as laser lithotripsy. Stone frags appear to be distal on KUB. These may have travelled distally compared to prior CT scan. - Pt knows the risks of waiting instead of proceeding with a surgical procedure, and still would like to wait, and then f/u with our office in two weeks with a KUB. - Pt will start Flomax 0.4mg qd to help him pass the remaining fragments. Discussed the medication side effects, and the patient will monitor closely for these, as well as for symptom improvement. If severe side effects occur, the medication should be stopped and the office notified. Follow-up With When Contact Information GIOVANA CANTOR, Yovany Kwan, URYaquelin Within [address] [place] [id number] Additional Instructions: KUB Patient Education Dietary Guidelines to Help Prevent Kidney Stones Lucero Alvarez, personally scribed for Dr. Akhtar on 06/10/2022 10:24:14. . Documentation recorded by the scribe, Lucero Robles, accurately reflects the services(s) I performed and decisions made by me. Authenticated by Dr. Akhtar on 06/10/2022 10:29:59. Problem List/Past Medical History Ongoing BMI 40.0-44.9, adult BPH (benign prostatic hyperplasia) Chronic anticoagulation Dermatofibroma of left upper arm Diabetes mellitus type 2, noninsulin dependent Elevated PSA Hx of longterm use of blood thinners Kidney stone Nocturia Osteoarthritis Historical GERD (gastroesophageal reflux disease) Neoplasm of uncertain behavior of skin Thrombophlebitis of lower extremities Procedure/Surgical History ESWL - Extracorporeal shockwave lithotripsy for renal calculus (05/26/2022), ESWL - Extracorporeal shock (more content not included)... Normal [facility] Comment on above: Result Comment: Elec tronically Signed By: Yovany AKHTAR MD\.br\Date and Time Signed: 06/10/22 10:32 EDT\.br\Electronically Co-Signed By: Lucero Robles\.br\Date and Time Co-Signed: 06/10/22 10:24 EDT XR KUB 1 VIEWon 06-09-2022 XR KUB 1 VIEW EXAMINATION: XR KUB 1 VIEW HISTORY: Kidney stone COMPARISON: 01/20/2022 FINDINGS: KIDNEY/URETER - RIGHT: No visible renal or ureteral calcifications. KIDNEY/URETER - LEFT: No visible renal or ureteral calcifications. PELVIS: No visible ureteral calcifications. Any visible calcifications favor phleboliths. BOWEL: No abnormal dilation or deviation. BONES: Moderate degenerative changes OTHER: Negative. No abnormal gaseous collections. IMPRESSION: No definite urinary tract calculi Electronically authenticated by: MANSOOR LIMA Date: 2022-06-09 17:41 Normal [facility] CBC AUTO DIFFon 05-29-2022 BASO # 0.1 103/ul Normal 0.0-0.1 [facility] Comment on above: Performed By: #### C BC ####[facility] [address] [place] [address]Dr. Yilan Aldrich Basophils/100 WBC (Bld) 0.2 % Normal 0.2-2.0 [facility] Comment on above: Performed By: #### C BC ####[facility] [address] [place] [address]Dr. Yilan Aldrich EO # 0.0 103/ul Normal 0.0-0.7 [facility] Comment on above: Performed By: #### C BC ####[facility] [address] [place] [address]Dr. Yilan Aldrich Eosinophils/100 WBC (Bld) 0.2 % Critically low 0.9-7.0 [facility] Comment on above: Performed By: #### C BC ####[facility] [address] [place] [address]Dr. Wyatt Aldrich Erythrocyte distribution width (RBC) [Ratio] 12.3 % Normal 11.0-15.0 [facility] Comment on above: Performed By: #### C BC ####[facility] [address] [place] [address]Dr. Wyatt Aldrich Hematocrit (Bld) [Volume fraction] 45.9 % Normal 42.0-54.0 [facility] Comment on above: Performed By: #### C BC ####[facility] [address] [place] [address]Dr. Wyatt Aldrich Hemoglobin (Bld) [Mass/Vol] 15.2 g/dL Normal 14.0-18.0 [facility] Comment on above: Performed By: #### C BC ####[facility] [address] [place], [place] [address]Dr. Wyatt Valdemar IG # 0.09 10e3/ul Critically high 0.00-0.03 [facility] Comment on above: Performed By: #### C BC ####[facility] [address] [place], [place] [address]Dr. Wyatt Valdemar IG % 0.4 % Normal 0.0-0.5 [facility] Comment on above: Performed By: #### C BC ####[facility] [address] [place] [address]Dr. Wyatt Valdemar LYMPH # 1.1 103/ul Critically low 1.2-3.8 [facility] Comment on above: Performed By: #### C BC ####[facility] [address] [place], [place] [id number]. Wyatt Valdemar Lymphocytes/100 WBC (Bld) 5.1 % Critically low 20.5-60.0 [facility] Comment on above: Performed By: #### C BC ####[facility] [address] [place], [place] [address]Dr. Wyatt Valdemar MANUAL DIFF REQ NO Normal [facility] Comment on above: Performed By: #### C BC ####[facility] [address] [place], [place] [id number]. Wyatt Aldrich MCH (RBC) [Entitic mass] 30.2 pg Normal 25.9-34.0 [facility] Comment on above: Performed By: #### C BC ####[facility] [address] [place] [id number]. Wyatt Aldrich MCHC (RBC) [Mass/Vol] 33.1 g/dL Normal 29.9-35.2 [facility] Comment on above: Performed By: #### C BC ####[facility] [address] [place] [id number]. Wyatt Aldrich MCV (RBC) [Entitic vol] 91.3 fL Normal 80.0-94.0 [facility] Comment on above: Performed By: #### C BC ####[facility] [address] [place] [address]Dr. Wyatt Aldrich MONO # 1.4 103/ul Critically high 0.3-0.8 [facility] Comment on above: Performed By: #### C BC ####[facility] [address] [place], [place] [address]Dr. Wyatt Aldrich Monocytes/100 WBC (Bld) 6.7 % Normal 1.7-12.0 [facility] Comment on above: Performed By: #### C BC ####[facility] [address] [place], [place] [id number]. Wyatt Aldrich NEUT # 18.5 103/ul Critically high 1.4-6.5 The [facility] Comment on above: Performed By: #### C BC ####[facility] [address] [place], [place] [address]Dr. Wyatt Aldrich Neutrophils/100 WBC (Bld) 87.4 % Critically high 43.0-75.0 [facility] Comment on above: Performed By: #### C BC ####[facility] [address] [place], [place] [address]Dr. Wyatt Aldrich Platelet mean volume (Bld) [Entitic vol] 9.3 fL Critically low 9.5-13.5 [facility] Comment on above: Performed By: #### C BC ####[facility] [address] [place], [place] [address]Td. Wyatt Aldrich PLT 303 103/ul Normal 150-450 [facility] Comment on above: Performed By: #### C BC ####[facility] [address] [place], [place] [address]Vh. Wyatt Aldrich RBC 5.03 106/ul Normal 4.70-6.10 [facility] Comment on above: Performed By: #### C BC ####[facility] [address] [place], [place] [address]Mz. Wyatt Aldrich WBC 21.2 103/ul Critically high 4.0-11.0 The [facility] Comment on above: Performed By: #### C BC ####[facility] [address] [place], [place] [address]Wr. Wyatt [address] CT ABD/PELVIS WO CONon 05-29 CT ABD/PELVIS WO CON EXAMINATION: CT ABD/PELVIS WO CON, 05/29/2022 1:52 PM PDT HISTORY: Right flank pain. COMPARISON: None. TECHNIQUE: CT scan of the abdomen and pelvis was performed without IV contrast. CT dose reduction technique was used, including Automated Exposure Control. FINDINGS: Lung: No significant finding. Liver: Hepatic steatosis. Gallbladder: Absent. Spleen: No significant finding. Pancreas: No significant finding. Adrenal glands: No significant finding. Kidneys, ureters and bladder: 2 mm right distal ureteral calculus. Additional 6 mm right UPJ calculus. Mild to moderate right hydronephrosis. Right perinephric fat stranding. Right periureteral fat stranding. Simple right renal cyst. Additional punctate right renal calculus. Bowel: No significant finding. Peritoneum/retroperit oneum: No significant finding. Lymph nodes: No significant finding. Vessels: No significant finding. Body wall: No significant finding. Reproductive: No significant finding. Bones: No significant finding. IMPRESSION: 2 mm right distal ureteral calculus. Additional, 6 mm right UPJ calculus. Mild to moderate right hydronephrosis. Superimposed infection not excluded. Hepatic steatosis. Electronically authenticated by: BOO GUZMAN Date: 2022-05-29 17:32 Normal [facility] ER URINE PROFILEon 2 Bilirubin Ql (U) Negative Normal NEGATIVE [facility] Comment on above: Performed By: #### U MICRO, ERUR #### [facility] [address] [place] [address] Dr. Wyatt Aldrich Clarity (U) CLEAR Normal CLEAR [facility] Comment on above: Performed By: #### U MICRO, ERUR #### [facility] [address] [address] [address] Wyatt Aldrich Color (U) LT. YELLOW Normal YELLOW [facility] Comment on above: Performed By: #### U MICRO, ERUR #### [facility] [address] [place] [address] Dr. Wyatt Aldrich ERUAHD A micrscopic examination will be performed if indicated. Normal [facility] Comment on above: Performed By: #### U MICRO, ERUR #### [facility] [address] [place] [address] Dr. Wyatt Aldrich Glucose Ql (U) Negative Normal NEGATIVE [facility] Comment on above: Performed By: #### U MICRO, ERUR #### [facility] [address] [place] [address] Dr. Wyatt Aldrich Hemoglobin Ql (U) TRACE-INTACT Abnormal NEGATIVE [facility] Comment on above: Performed By: #### U MICRO, ERUR #### [facility] [address] [place] [address] Dr. Wyatt Aldrich Ketones Ql (U) Negative Normal NEGATIVE [facility] Comment on above: Performed By: #### U MICRO, ERUR #### [facility] [address] [place] [address] Dr. Wyatt Aldrich LEUKOCYTES Negative Normal NEGATIVE [facility] Comment on above: Performed By: #### U MICRO, ERUR #### [facility] [address] [place] [address] Dr. yWatt Aldrich Nitrite Ql (U) Negative Normal NEGATIVE [facility] Comment on above: Performed By: #### U MICRO, ERUR #### [facility] [address] [place] [address] Dr. Wyatt Aldrich pH (U) 7.0 [pH] Normal 5-9 [facility] Comment on above: Performed By: #### U MICRO, ERUR #### [facility] [address] [place] [address] Dr. Wyatt Aldrich SPEC GRAVITY 1.020 Normal 1.005-<=1.025 [facility] Comment on above: Performed By: #### U MICRO, ERUR #### [facility] [address] [place] [address] Dr. Wyatt Aldrich UA PROTEIN Negative Normal NEGATIVE/ TRACE [facility] Comment on above: Performed By: #### U MICRO, ERUR #### [facility] [address] [place] [address] Dr. Wyatt Aldrich UR MICRO IND INDICATED Normal [facility] Comment on above: Performed By: #### U MICRO, ERUR #### [facility] [address] [place] [address] Dr. Wyatt Aldrich Urobilinogen Qn (U) 0.2 {Sharon'U}/dL Normal 0.2 - 1. 0 [facility] Comment on above: Performed By: #### U MICRO, ERUR #### [facility] [address] [place] [address] Dr. Wyatt Aldrich PROF 14(COMP METB)on 022 Albumin [Mass/Vol] 3.9 g/dL Normal 3.4-5.0 [facility] Comment on above: Performed By: #### C MP #### [facility] [address] [place] [address] Dr. Wyatt Aldrich Albumin/Globulin [Mass ratio] 1.1 {ratio} Normal [facility] Comment on above: Performed By: #### C MP #### [facility] [address] [place] [address] Dr. Wyatt Aldrich ALP [Catalytic activity/Vol] 70 U/L Normal 46-116 [facility] Comment on above: Performed By: #### C MP #### [facility] [address] [place] [address] Dr. Wyatt Aldrich ALT [Catalytic activity/Vol] 38 U/L Normal 16-63 [facility] Comment on above: Performed By: #### C MP #### [facility] [address] [address] [address] Wyatt Aldrich Anion gap [Moles/Vol] 12.6 mmol/L Normal [facility] Comment on above: Performed By: #### C MP #### [facility] [address] [address] [address] Wyatt Aldrich AST [Catalytic activity/Vol] 20 U/L Normal 15-37 [facility] Comment on above: Performed By: #### C MP #### [facility] [address] [address] [address] Wyatt Aldrich Bilirubin [Mass/Vol] 0.6 mg/dL Normal 0.2-1.0 [facility] Comment on above: Performed By: #### C MP #### [facility] [address] [address] [address] Wyatt Aldrich Calcium [Mass/Vol] 8.7 mg/dL Normal 8.5-10.1 [facility] Comment on above: Performed By: #### C MP #### [facility] [address] [address] [address] Wyatt Aldrich Chloride [Moles/Vol] 95 mmol/L Critically low 98-107 [facility] Comment on above: Performed By: #### C MP #### [facility] [address] [address] [address] Wyatt Aldrich CO2 [Moles/Vol] 29.9 mmol/L Normal 21.0-32.0 [facility] Comment on above: Performed By: #### C MP #### [facility] [address] [address] [address] Wyatt Aldrich Creatinine [Mass/Vol] 1.04 mg/dL Normal 0.70-1.30 [facility] Comment on above: Performed By: #### C MP #### [facility] [address] [address] [address] Wyatt Aldrich EGFR-AF NIUEAN >60 Normal >=60 [facility] Comment on above: Performed By: #### C MP #### [facility] [address] [address] [address] Wyatt Aldrich EGFR-NON AF NIUEAN >60 Normal >=60 [facility] Comment on above: Performed By: #### C MP #### [facility] [address] [address] [address] Wyatt Aldrich Globulin (S) [Mass/Vol] 3.4 g/dL Normal [facility] Comment on above: Performed By: #### C MP #### [facility] [address] [address] [address] Wyatt Aldrich Glucose [Mass/Vol] 148 mg/dL Critically high 74-106 [facility] Comment on above: Performed By: #### C MP #### [facility] [address] [place] [address] Dr. Wyatt Aldrich Potassium [Moles/Vol] 4.5 mmol/L Normal 3.5-5.1 [facility] Comment on above: Performed By: #### C MP #### [facility] [address] [place] [address] Dr. Wyatt Aldrich Protein [Mass/Vol] 7.3 g/dL Normal 6.4-8.2 [facility] Comment on above: Performed By: #### C MP #### [facility] [address] [place] [address] Dr. Wyatt Aldrich Sodium [Moles/Vol] 133 mmol/L Critically low 136-145 [facility] Comment on above: Performed By: #### C MP #### [facility] [address] [place] [address] Dr. Wyatt Aldrich Urea nitrogen [Mass/Vol] 15.0 mg/dL Normal 7.0-18.0 [facility] Comment on above: Performed By: #### C MP #### [facility] [address] [place] [address] Dr. Wyatt Aldrich Urea nitrogen/Creatinine [Mass ratio] 14.4 mg/mg Normal [facility] Comment on above: Performed By: #### C MP #### [facility] [address] [place], [place] [id number] Dr. Wyatt Aldrich URINE MICROSCOPIC ONLYon BACTERIA NONE SEEN Normal NONE SEEN [facility] Comment on above: Performed By: #### U MICRO, ERUR #### [facility] [address] [place] [address] Dr. Wyatt Aldrich Bacteria identified Cx Nom (U) NOT INDICATED Normal [facility] Comment on above: Performed By: #### U MICRO, ERUR #### [facility] [address] [place] [address] Dr. Wyatt Aldrich CAST NONE SEEN Normal NONE SEEN [facility] Comment on above: Performed By: #### U MICRO, ERUR #### [facility] [address] [place] [address] Dr. Wyatt Aldrich Crystals LM Nom (Urine sed) NONE SEEN Normal NONE SEEN [facility] Comment on above: Performed By: #### U MICRO, ERUR #### [facility] [address] [place] [address] Dr. Wyatt Aldrich Epithelial cells LM Ql (Urine sed) NONE SEEN Normal NONE SEEN /RARE [facility] Comment on above: Performed By: #### U MICRO, ERUR #### [facility] [address] [place] [address] Dr. Wyatt Aldrich MUCOUS NONE SEEN Normal NONE SEEN [facility] Comment on above: Performed By: #### U MICRO, ERUR #### [facility] [address] [place] [address] Dr. Wyatt Aldrich RBC 2-5 Abnormal 0-2 [facility] Comment on above: Performed By: #### U MICRO, ERUR #### [facility] [address] [place] [address] Dr. Wyatt Aldrich WBC NONE SEEN Normal NONE SEEN [facility] Comment on above: Performed By: #### U MICRO, ERUR #### [facility] [address] [place] [address] Dr. Wyatt Aldrich T4 LABCORPon 01-29-2022 T4 [Mass/Vol] 9.1 ug/dL Normal 4.5-12.0 [facility] Comment on above: Performed By: #### T 4LC ####[facility] [address] [address]Dr. Wyatt Aldrich CBC AUTO DIFFon 01-28-2022 BASO # 0.1 103/ul Normal 0.0-0.1 [facility] Comment on above: Performed By: #### C BC ####[facility] [address] [id number]. Wyatt Valdemar Basophils/100 WBC (Bld) 0.6 % Normal 0.2-2.0 [facility] Comment on above: Performed By: #### C BC ####[facility] [address] [place], [place] [address]Dr. Wyatt Aldrich EO # 0.2 103/ul Normal 0.0-0.7 [facility] Comment on above: Performed By: #### C BC ####[facility] [address] [place], [place] [address]Dr. Wyatt Valdemar Eosinophils/100 WBC (Bld) 2.4 % Normal 0.9-7.0 [facility] Comment on above: Performed By: #### C BC ####[facility] [address] [place], [place] [address]Dr. Wyatt Aldrich Erythrocyte distribution width (RBC) [Ratio] 12.5 % Normal 11.0-15.0 [facility] Comment on above: Performed By: #### C BC ####[facility] [address] [place], [place] [address]Dr. Wyatt Aldrich Hematocrit (Bld) [Volume fraction] 43.5 % Normal 42.0-54.0 [facility] Comment on above: Performed By: #### C BC ####[facility] [address] [place], [place] [address]Dr. Wyatt Aldrich Hemoglobin (Bld) [Mass/Vol] 14.4 g/dL Normal 14.0-18.0 [facility] Comment on above: Performed By: #### C BC ####[facility] [address] [place], [place] [address]Dr. Jossielalo Aldrich IG # 0.03 10e3/ul Normal 0.00-0.03 [facility] Comment on above: Performed By: #### C BC ####[facility] [address] [address]DrCullen Aldrich IG % 0.4 % Normal 0.0-0.5 [facility] Comment on above: Performed By: #### C BC ####[facility] [address] [address]DrCullen Aldrich LYMPH # 2.1 103/ul Normal 1.2-3.8 [facility] Comment on above: Performed By: #### C BC ####[facility] [address] [address]DrCullen Aldrich Lymphocytes/100 WBC (Bld) 24.8 % Normal 20.5-60.0 [facility] Comment on above: Performed By: #### C BC ####[facility] [address] [place], [place] [address]DrCullen Aldrich MANUAL DIFF REQ NO Normal [facility] Comment on above: Performed By: #### C BC ####[facility] [address] [id number] Jossielalo Aldrich MCH (RBC) [Entitic mass] 30.6 pg Normal 25.9-34.0 [facility] Comment on above: Performed By: #### C BC ####[facility] [address] [place], [place] [address]DrCullen Aldrich MCHC (RBC) [Mass/Vol] 33.1 g/dL Normal 29.9-35.2 [facility] Comment on above: Performed By: #### C BC ####[facility] [address] [place], [place] [address]DrCullen Aldrich MCV (RBC) [Entitic vol] 92.6 fL Normal 80.0-94.0 [facility] Comment on above: Performed By: #### C BC ####[facility] [address] [address]DrCullen Aldrich MONO # 0.6 103/ul Normal 0.3-0.8 [facility] Comment on above: Performed By: #### C BC ####[facility] [address] [id number]. Wyatt Aldrich Monocytes/100 WBC (Bld) 7.7 % Normal 1.7-12.0 [facility] Comment on above: Performed By: #### C BC ####[facility] [address] [address]Dr. Wyatt Aldrich NEUT # 5.3 103/ul Normal 1.4-6.5 [facility] Comment on above: Performed By: #### C BC ####[facility] [address] [address]Dr. Wyatt Aldrich Neutrophils/100 WBC (Bld) 64.1 % Normal 43.0-75.0 [facility] Comment on above: Performed By: #### C BC ####[facility] [address] [address]Dr. Wyatt Aldrich Platelet mean volume (Bld) [Entitic vol] 9.4 fL Critically low 9.5-13.5 [facility] Comment on above: Performed By: #### C BC ####[facility] [address] [address]Dr. Wyatt Aldrich PLT 280 103/ul Normal 150-450 [facility] Comment on above: Performed By: #### C BC ####[facility] [address] [address]Dr. Wyatt Aldrich RBC 4.70 106/ul Normal 4.70-6.10 [facility] Comment on above: Performed By: #### C BC ####[facility] [address] [address]Dr. Wyatt Aldrich WBC 8.3 103/ul Normal 4.0-11.0 [facility] Comment on above: Performed By: #### C BC ####[facility] [address] [address]Dr. Wyatt Aldrich FREE T3on 01-28-2022 FREE T3 2.70 pg/mlL Normal 2.18-3.98 [facility] Comment on above: Performed By: #### L IPID, CMP, TSH, FT3 ####[facility] [address] [address]Dr. Wyatt Aldrich GLYCOHEMOGLOBIN A1Con 2021 ADA RECOMMENDATION SEE BELOW Normal [facility] Comment on above: Result Comment: ADA RECOMMENDED LIMIT 4.0 - 6.0 ADA THERAPEUTIC TARGET < 7.0 ACTION SUGGESTED > 7.0 Performed By: #### A 1C #### [facility] [address] [address] [address] Wyatt Aldrich Glucose [Mass/Vol] 143 mg/dL Normal [facility] Comment on above: Performed By: #### A 1C #### [facility] [address] [address] [address] Wyatt Aldrich HbA1c (Bld) [Mass fraction] 6.6 % Critically high 4.5-6.2 [facility] Comment on above: Performed By: #### A 1C #### [facility] [address] [address] [address] Wyatt Aldrich LIPID PROFILEon 01-28-2022 CHOL-HDL RATIO NORM SEE BELOW Normal [facility] Comment on above: Result Comment: 3.3 - 4.4 LOW RISK 4.4 - 7.1 AVERAGE RISK 7.1 - 11.0 MODERATE RISK >11.0 HIGH RISK Performed By: #### L IPID, CMP, TSH, FT3 ####[facility] [address] [address]DrCullen Aldrich Cholesterol [Mass/Vol] 176 mg/dL Normal <=200 [facility] Comment on above: Performed By: #### L IPID, CMP, TSH, FT3 ####[facility] [address] [address]DrCullen Aldrich Cholesterol in HDL [Mass/Vol] 35 mg/dL Critically low 40-60 [facility] Comment on above: Performed By: #### L IPID, CMP, TSH, FT3 ####[facility] [address] [address]DrCullen Aldrich Cholesterol in LDL [Mass/Vol] 94.4 mg/dL Normal [facility] Comment on above: Performed By: #### L IPID, CMP, TSH, FT3 ####[facility] [address] [address]Dr. Wyatt Aldrich Cholesterol.total/Cho lesterol in HDL [Mass ratio] 5.0 {ratio} Normal [facility] Comment on above: Performed By: #### L IPID, CMP, TSH, FT3 ####[facility] [address] [address]Dr. Wyatt Aldrich HDL NORMAL > or = 60 mg/dl - LO W CARDIOVASCULAR RISK <40 mg/dl - HIGH CARDIOVASCULAR RISK Normal [facility] Comment on above: Performed By: #### L IPID, CMP, TSH, FT3 ####[facility] [address] [address]Dr. Wyatt Aldrich LDL CALC NORMAL SEE BELOW Normal [facility] Comment on above: Result Comment: <100 mg/dl OPTIMAL 100 - 129 mg/dl NEAR OR ABOVE OPTIMAL 130 - 159 mg/dl BORDERLINE HIGH 160 - 189 mg/dl HIGH >190 mg/dl VERY HIGH Performed By: #### L IPID, CMP, TSH, FT3 ####[facility] [address] [address]Dr. Wyatt Aldrich Triglyceride [Mass/Vol] 233 mg/dL Critically high <=150 [facility] Comment on above: Performed By: #### L IPID, CMP, TSH, FT3 ####[facility] [address] [address]Dr. Wyatt Aldrich VLDL CALC 46.6 mg/dL Normal [facility] Comment on above: Performed By: #### L IPID, CMP, TSH, FT3 ####[facility] [address] [address]DrCullen Aldrich OCC BLD IMMUNO SCREENon 01-03 OCCULT BLOOD Negative Normal NEGATIVE [facility] Comment on above: Performed By: #### O BSCRN #### [facility] [address] [address] [address] Wyatt Aldrich PROF 14(COMP METB)on 022 Albumin [Mass/Vol] 3.4 g/dL Normal 3.4-5.0 [facility] Comment on above: Performed By: #### L IPID, CMP, TSH, FT3 ####[facility] [address] [address]Dr. Wyatt Aldrich Albumin/Globulin [Mass ratio] 1.0 {ratio} Normal [facility] Comment on above: Performed By: #### L IPID, CMP, TSH, FT3 ####[facility] [address] [address]Dr. Wyatt Aldrich ALP [Catalytic activity/Vol] 65 U/L Normal 46-116 [facility] Comment on above: Performed By: #### L IPID, CMP, TSH, FT3 ####[facility] [address] [address]Dr. Wyatt Aldrich ALT [Catalytic activity/Vol] 45 U/L Normal 16-63 [facility] Comment on above: Performed By: #### L IPID, CMP, TSH, FT3 ####[facility] [address] [place], [place] [address]Dr. Wyatt Aldrich Anion gap [Moles/Vol] 9.7 mmol/L Normal [facility] Comment on above: Performed By: #### L IPID, CMP, TSH, FT3 ####[facility] [address] [address]Dr. Wyatt Aldrich AST [Catalytic activity/Vol] 20 U/L Normal 15-37 [facility] Comment on above: Performed By: #### L IPID, CMP, TSH, FT3 ####[facility] [address] [address]Dr. Wyatt Aldrich Bilirubin [Mass/Vol] 0.4 mg/dL Normal 0.2-1.0 [facility] Comment on above: Performed By: #### L IPID, CMP, TSH, FT3 ####[facility] [address] [address]Dr. Wyatt Aldrich Calcium [Mass/Vol] 8.5 mg/dL Normal 8.5-10.1 [facility] Comment on above: Performed By: #### L IPID, CMP, TSH, FT3 ####[facility] [address] [address]Dr. Wyatt Aldrich Chloride [Moles/Vol] 101 mmol/L Normal 98-107 [facility] Comment on above: Performed By: #### L IPID, CMP, TSH, FT3 ####[facility] [address] [address]Dr. Wyatt Aldrich CO2 [Moles/Vol] 33.3 mmol/L Critically high 21.0-32.0 [facility] Comment on above: Performed By: #### L IPID, CMP, TSH, FT3 ####[facility] [address] [place], [place] [address]Dr. Wyatt Aldrich Creatinine [Mass/Vol] 0.77 mg/dL Normal 0.70-1.30 [facility] Comment on above: Performed By: #### L IPID, CMP, TSH, FT3 ####[facility] [address] [place], [place] [address]Dr. Wyatt Aldrich EGFR-AF NIUEAN >60 Normal >=60 [facility] Comment on above: Performed By: #### L IPID, CMP, TSH, FT3 ####[facility] Rdty[address] [place], [place] [address]Dr. Wyatt Aldrich EGFR-NON AF NIUEAN >60 Normal >=60 [facility] Comment on above: Performed By: #### L IPID, CMP, TSH, FT3 ####[facility] [address] [address]Dr. Wyatt Aldrich Globulin (S) [Mass/Vol] 3.3 g/dL Normal [facility] Comment on above: Performed By: #### L IPID, CMP, TSH, FT3 ####[facility] [address] [address]Dr. Wyatt Aldrich Glucose [Mass/Vol] 137 mg/dL Critically high 74-[address] [facility] Comment on above: Performed By: #### L IPID, CMP, TSH, FT3 ####[facility] [address] [address]Dr. Wyatt Aldrich Potassium [Moles/Vol] 4.0 mmol/L Normal 3.5-5.1 [facility] Comment on above: Performed By: #### L IPID, CMP, TSH, FT3 ####[facility] [address] [address]Dr. Wyatt Aldrich Protein [Mass/Vol] 6.7 g/dL Normal 6.4-8.2 [facility] Comment on above: Performed By: #### L IPID, CMP, TSH, FT3 ####[facility] [address] [place], [place] [address]Dr. Wyatt Aldrich Sodium [Moles/Vol] 140 mmol/L Normal 136-145 [facility] Comment on above: Performed By: #### L IPID, CMP, TSH, FT3 ####[facility] [address] [place], [place] [address]Dr. Wyatt Aldrich Urea nitrogen [Mass/Vol] 13.0 mg/dL Normal 7.0-18.0 [facility] Comment on above: Performed By: #### L IPID, CMP, TSH, FT3 ####[facility] En[address] [place], [place] [address]Dr. Wyatt Aldrich Urea nitrogen/Creatinine [Mass ratio] 16.9 mg/mg Normal [facility] Comment on above: Performed By: #### L IPID, CMP, TSH, FT3 ####[facility] [address] [place], [place] [address]Dr. Wyatt Aldrich TSHon 01-28-2022 TSH 5.562 uIU/mL Critically high 0.358-3.740 [facility] Comment on above: Performed By: #### L IPID, CMP, TSH, FT3 ####[facility] [address] [place], [place] [address]Dr. Wyatt Aldrich TSH RANGE SEE BELOW Normal [facility] Comment on above: Result Comment: <0.3 4 UIU/ml HYPERTHYROID 0.34-5.60 UIU/ml EUTHYROID >5.60 UIU/ml HYPOTHYROID Performed By: #### L IPID, CMP, TSH, FT3 ####[facility] [address] [place], [place] [address]MyCullen Aldrich XR KUB 1 VIEWon 01-20-2022 XR KUB 1 VIEW EXAMINATION: XR KUB 1 VIEW HISTORY: Kidney stone COMPARISON: No relevant comparison available. FINDINGS: KIDNEY/URETER - RIGHT: 7 mm calcification projects over the lower pole of the right kidney KIDNEY/URETER - LEFT: No visible renal or ureteral calcifications. PELVIS: No visible ureteral calcifications. Any visible calcifications favor phleboliths. BOWEL: No abnormal dilation or deviation. BONES: Moderate degenerative changes OTHER: Right upper quadrant surgical clips from cholecystectomy. No abnormal gaseous collections. IMPRESSION: Stable right nephrolith Electronically authenticated by: MANSOOR LIMA Date: 2022-01-20 14:12 Normal [facility] MRI LSPINE WO W CONon 2021 [facility] CON EXAMINATION: [place] HISTORY: Prolapsed lumbar intervertebral disc, chronic lumbar spine pain with bilateral leg pain. COMPARISON: Lumbar spine radiograph 09/27/2021. TECHNIQUE: Multiplanar, multisequence MRI images of the lumbar spine were obtained without contrast. FINDINGS: Straightening of the lumbar spine. No subluxation. No compression fractures. Moderate disc space narrowing at L5-S1. Remaining disc space heights are preserved. Conus medullaris terminates at L1. No abnormal signal in the distal spinal cord and conus. No pathologic enhancement. L5-S1: Left laminectomy. Bilateral foraminal disc protrusion/osteophyte s, moderate facet arthropathy. No spinal canal stenosis. Bilateral foraminal osteophytes. Moderate to severe bilateral foraminal stenosis. L4-L5: Disc bulge and mild bilateral facet arthropathy. No spinal canal stenosis. Bilateral foraminal disc osteophyte complexes. There is mild right and moderate left foraminal stenosis. L3-L4: Disc bulge with superimposed bilateral foraminal disc protrusions with annular fissures. Mild facet arthropathy and ligamentum flavum hypertrophy. There is mild thecal sac effacement and left lateral recess stenosis. There is moderate right and moderate to severe left foraminal stenosis. L2-L3: Disc bulge or superimposed right larger than left foraminal disc protrusions. No spinal canal stenosis. There is mild to moderate right and mild left foraminal stenosis. T12-L1 and L1-L2: No stenosis. IMPRESSION: 1. At L5-S1, there are findings of prior left laminectomy. There is no spinal canal stenosis. There are bilateral foraminal osteophytes and disc protrusion, with moderate to severe bilateral foraminal stenosis. 2. There are no levels of high-grade spinal canal stenosis in the remaining lumbar spine. There are additional levels of foraminal stenosis secondary to disc protrusion/osteophyto sis described. Electronically authenticated by: TANISHA CHIU Date: 2021-10-04 11:23 Normal [facility] XR LSPINE MIN 4 VIEWSon 09-05 XR LSPINE MIN 4 VIEWS EXAMINATION: XR LSPINE MIN 4 VIEWS HISTORY: Prolapsed lumbar intervertebral disc ; low back pain for one month; no known injury COMPARISON: CT abdomen pelvis 04/25/2017 FINDINGS: BONES: Moderate degenerative facet arthropathy L4-L5, L5-S1. No fracture or spondylolisthesis. DISC SPACES: Mild narrowing L2-L3. Marked narrowing L5-S1. PARASPINOUS: Negative. No paraspinous abnormality is seen. OTHER: Negative. IMPRESSION: 1. Progression of degenerative disc disease since 2017. 2. No acute bone abnormality. Electronically authenticated by: SOLO SAVAGE Date: 2021-09-27 11:31 Normal [facility] Vital Signs Date Time Vital Sign Value Performing Clinician Jessi chowdhury 06-06-2023 08:48-0400 Blood Pressure Location [facility] 06-06-2023 08:48-0400 Diastolic blood pressure 66 mm[Hg] [employer]nyCatchSquare [facility] 06-06-2023 08:48-0400 Heart rate 83 /min [facility] 06-06-2023 08:48-0400 Systolic blood pressure 142 mm[Hg] [facility]Catch[facility] 06-17-2022 09:14-0400 Blood Pressure Location Yovany COOK [facility] 06-17-2022 09:14-0400 Diastolic blood pressure 96 mm[Hg] Yovany COOK [facility] 06-17-2022 09:14-0400 Heart rate 67 /min Yovany COOK [facility] 06-17-2022 09:14-0400 Systolic blood pressure 159 mm[Hg] Yovany COOK [facility] 06-10-2022 09:54-0400 Blood Pressure Location Yovany COOK [facility] 06-10-2022 09:54-0400 Diastolic blood pressure 102 mm[Hg] Yoavny COOK [facility] 06-10-2022 09:54-0400 Heart rate 68 /min Yovany COOK [facility] 06-10-2022 09:54-0400 Systolic blood pressure 166 mm[Hg] Yovany COOK [facility] 01-21-2022 08:44-0400 Blood Pressure Location Yvoany COOK [facility] 01-21-2022 08:44-0400 Diastolic blood pressure 87 mm[Hg] Yovany COOK [facility] 01-21-2022 08:44-0400 Heart rate 72 /min Yovany COOK [facility] 01-21-2022 08:44-0400 Systolic blood pressure 140 mm[Hg] Yovany AKHTAR [facility] Encounters Encounter Date Encounter Type Care Provider Facility Start: 06-11-2024 ambulatory Yovany AKHTAR Facility :[facility] Start: 06-06-2023 End: 06-07-2023 ambulatory Yovany AKHTAR Facility:[facility] [place] Start: 06-06-2023 End: 06-06-2023 Patient encounter procedure Yovany AKHTAR [facility] Start: 06-17-2022 End: 06-18-2022 ambulatory Yovany AKHTAR Facility:[facility] Start: 06-17-2022 End: 06-17-2022 Patient encounter procedure Yovany AKHTAR [facility] Start: 06-16-2022 End: 06-17-[address] NANCY FERNANDEZ Facility:[facility] Start: 06-10-2022 End: 06-11-2022 ambulatory Yovany AKHTAR Facility:[facility] [place] Start: 06-10-2022 End: 06-10-2022 Patient encounter procedure Yovany AKHTAR [facility] Start: 06-09-2022 End: 06-10-[address] NANCY FERNANDEZ Facility:[facility] Start: 05-29-2022 End: 05-29-[address] NANCY FERNANDEZ Facility:[facility] Start: 05-11-2022 End: 05-11-2022 Patient encounter procedure Yovany AKHTAR [facility] Start: 02-03-2022 Encounter for genera l adult medical examination without abnormal findings DR NANCY FERNANDEZ [facility] Start: 01-28-2022 End: 01-29-[address] NANCY FERNANDEZ Facility:[facility] Start: 01-28-2022 End: 01-29-2022 Encounter for general adult medical examination without abnormal findings DR NANCY FERNANDEZ Facility:[facility] Start: 01-21-2022 End: 01-21-2022 Patient encounter procedure Yovany AKHTAR [facility] Start: 01-20-2022 End: 01-21-[address] NANCY FERNANDEZ Facility:[facility] Start: 10-04-2021 End: 10-05-[address] NANCY FERNANDEZ Facility:[facility] Start: 09-29-2021 End: 09-29-2021 ambulatory MARILU MURGUIA Facility:[facility] Start: 09-27-2021 End: 09-28-[address] NANCY FERNANDEZ Facility:[facility] Procedures Date Procedure Procedure Detail Performing Clinician Start: 05-26-2022 Extracorporeal shock wave lithotripsy of calculus of kidney Yovanykourtney AKHTAR Start: 01-28-[address] WES FERNANDEZ Comment on above: Performed By: #### P SAD ####[place] [id number] Aldrich Start: 08-13-2020 Extracorporeal shock wave lithotripsy of calculus of kidney Yovanykourtney AKHTAR Dental surgical procedure Gr poncho AKHTAR Entire gallbladder ( body structure) Yovany AKHTAR History of tonsillectomy Mitul viviana AKHTAR Kidney stone (disorder) Gee AKHTAR l4 l5 disectomy Yovany AKHTAR carlo anal abcess Yovany Dowling Repair of anal fistula Marvel AKHTAR Immunizations Immunization Date Immunization Notes Care Provider Mica biggs 04-19-2022 zoster vaccine recombinant Yovany AKHTAR [facility] 02-12-2022 pneumococcal 20-maría nt conjugate vaccine Yovany AKHTAR [facility] 02-03-2022 zoster vaccine recombinant Yovany AKHTAR [facility] 12-08-2020 SARS-CoV-2 (COVID-19 ) mRNA-1273 vaccine Yovany AKHTAR [facility] 11-17-2020 SARS-CoV-2 (COVID-19 ) mRNA BNT-162b2 vax Yovany AKHTAR [facility] 11-11-2020 SARS-CoV-2 (COVID-19 ) mRNA-1273 vaccine Yovany AKHTAR [facility] Payers Date Payer Category Payer Unknown [id number] 1965 Unknown [id number] 1965 Unknown [id number] 1964 Unknown [id number] ..[id number] 1964 Unknown [id number] .16.84 [id number] 1964 Unknown [id number] ..[id number] 1964 Unknown [id number] 2.16.84 [id number] 1964 Unknown [id number] 2.16.84 [id number] 1964 Unknown [id number] 2.16.84 [id number] 1964 Unknown [id number] 2.16.8 [id number] 1964 Unknown [id number] 2.16.8 [id number] 1964 Unknown [id number] 2.16.8 [id number] 1964 Unknown [id number] 2.16.8 [id number] 1960 Private Health Insurance [id number] Social History Date Type Detail Facility Start: 01-15-2021 End: 06-06-2023 Tobacco smoking status Ex-smoker (finding) [facility] Tobacco smoking status Never [facility] [place] Sex Assigned At Male [facility] [place] Functional Status Date Assessment Result Facility 06-06-2023 Functional Status N/A [facility] 06-17-2022 Functional Status N/A [facility] 06-10-2022 Functional Status N/A [facility] Clinical Notes 01-21-2022 to 06-06-2023 Laboratory Note Date & Type Note Facility 06-06-2023 Hospital Discharge instructions Patient Education 06/06/2023 09:26:04 Dietary Guidelines to Help Prevent Kidney Stones Dietary Guidelines to Help Prevent Kidney Stones Kidney stones are deposits of minerals and salts that form inside your kidneys. Your risk of developing kidney stones may be greater depending on your diet, your lifestyle, the medicines you take, and whether you have certain medical conditions. Most people can lower their chances of developing kidney stones by following the instructions below. Your dietitian may give you more specific instructions depending on your overall health and the type of kidney stones you tend to develop. What are tips for following this plan? Reading food labels Choose foods with no salt added or low-salt labels. Limit your salt (sodium) intake to less than 1,500 mg a day. Choose foods with calcium for each meal and snack. Try to eat about 300 mg of calcium at each meal. Foods that contain 200 500 mg of calcium a serving include: ?8 oz (237 mL) of milk, ufwsbtr-vmqapyeltmjf-msfwv milk, and calcium-fortifiedfruit juice. Calcium-fortified means that calcium has been added to these drinks. ?8 oz (237 mL) of kefir, yogurt, and soy yogurt. ?4 oz (114 g) of tofu. ?1 oz (28 g) of cheese. ?1 cup (150 g) of dried figs. ?1 cup (91 g) of cooked broccoli. ?One 3 oz (85 g) can of sardines or mackerel. Most people need 1,000 1,500 mg of calcium a day. Talk to your dietitian about how much calcium is recommended for you. Shopping Buy plenty of fresh fruits and vegetables. Most people do not need to avoid fruits and vegetables, even if these foods contain nutrients that may contribute to kidney stones. When shopping for convenience foods, choose: ?Whole pieces of fruit. ?Pre-made salads with dressing on the side. ?Low-fat fruit and yogurt smoothies. Avoid buying frozen meals or prepared deli foods. These can be high in sodium. Look for foods with live cultures, such as yogurt and kefir. Choose high-fiber grains, such as whole-wheat breads, oat bran, and wheat cereals. Cooking Do not add salt to food when cooking. Place a salt shaker on the table and allow each person to add his or her own salt to taste. Use vegetable protein, such as beans, textured vegetable protein (TVP), or tofu, instead of meat in pasta, casseroles, and soups. Meal planning Eat less salt, if told by your dietitian. To do this: ?Avoid eating processed or pre-made food. ?Avoid eating fast food. Eat less animal protein, including cheese, meat, poultry, or fish, if told by your dietitian. To do this: ?Limit the number of times you have meat, poultry, fish, or cheese each week. Eat a diet free of meat at least 2 days a week. ?Eat only one serving each day of meat, poultry, fish, or seafood. ?When you prepare animal protein, cut pieces into small portion sizes. For most meat and fish, one serving is about the size of the palm of your hand. Eat at least five servings of fresh fruits and vegetables each day. To do this: ?Keep fruits and vegetables on hand for snacks. ?Eat one piece of fruit or a handful of berries with breakfast. ?Have a salad and fruit at lunch. ?Have two kinds of vegetables at dinner. Limit foods that are high in a substance called oxalate. These include: ?Spinach (cooked), rhubarb, beets, sweet potatoes, and Cymro chard. ?Peanuts. ?Potato chips, martiniquais fries, and baked potatoes with skin on. ?Nuts and nut products. ?Chocolate. If you regularly take a diuretic medicine, make sure to eat at least 1 or 2 servings of fruits or vegetables that are high in potassium each day. These include: ?Avocado. ?Banana. ?Blackstone, prune, carrot, or tomato juice. ?Baked potato. ?Cabbage. ?Beans and split peas. Lifestyle Drink enough fluid to keep your urine pale yellow. This is the most important thing you can do. Spread your fluid intake throughout the day. If you drink alcohol: ?Limit how much you use to: ?0 1 drink a day for women who are not . ?0 2 drinks a day for men. ?Be aware of how much alcohol is in your drink. In the [place] one drink equals one 12 oz bottle of beer (355 mL), one 5 oz glass of wine (148 mL), or one 1 oz glass of hard liquor (44 mL). Lose weight if told by your health care provider. Work with your dietitian to find an eating plan and weight loss strategies that work best for you. General information Talk to your health care provider and dietitian about taking daily supplements. You may be told the following depending on your health and the cause of your kidney stones: ?Not to take supplements with vitamin C. ?To take a calcium supplement. ?To take a daily probiotic supplement. ?To take other supplements such as magnesium, fish oil, or vitamin B6. Take kwmx-gjd-vzudyle and prescription medicines only as told by your health care provider. These include supplements. What foods should I limit? Limit your intake of the following foods, or eat them as told by your dietitian. Vegetables Spinach. Rhubarb. Beets. Canned vegetables. Pickles. Olives. Baked potatoes with skin. Grains Wheat bran. Baked goods. Salted crackers. Cereals high in sugar. Meats and other proteins Nuts. Nut butters. Large portions of meat, poultry, or fish. Salted, precooked, or cured meats, such as sausages, meat loaves, and hot dogs. Dairy Cheese. Beverages Regular soft drinks. Regular vegetable juice. Seasonings and condiments Seasoning blends with salt. Salad dressings. Soy sauce. Ketchup. Barbecue sauce. Other foods Canned soups. Canned pasta sauce. Casseroles. Pizza. Lasagna. Frozen meals. Potato chips. Mosotho fries. The items listed above may not be a complete list of foods and beverages you should limit. Contact a dietitian for more information. What foods should I avoid? Talk to your dietitian about specific foods you should avoid based on the type of kidney stones you have and your overall health. Fruits Grapefruit. The item listed above may not be a complete list of foods and beverages you should avoid. Contact a dietitian for more information. Summary Kidney stones are deposits of minerals and salts that form inside your kidneys. You can lower your risk of kidney stones by making changes to your diet. The most important thing you can do is drink enough fluid. Drink enough fluid to keep your urine pale yellow. Talk to your dietitian about how much calcium you should have each day, and eat less salt and animal protein as told by your dietitian. This information is not intended to replace advice given to you by your health care provider. Make sure you discuss any questions you have with your health care provider. Document Revised: 05/02/2022 Document Reviewed: 05/02/2022 [employer] Patient Education 2022 [employer]. Follow Up Care 01/21/2022 09:03:45 With:GIOVANA CANTOR, Yovany Kwan, JOIL Address: Mandeep CAPUTO [address] [place] [address]- When:Within 1 Year(s) Comments:w/MT [facility] 06-17-2022 Hospital Discharge instructions Patient Education 06/17/2022 09:35:20 Dietary Guidelines to Help Prevent Kidney Stones Dietary Guidelines to Help Prevent Kidney Stones Kidney stones are deposits of minerals and salts that form inside your kidneys. Your risk of developing kidney stones may be greater depending on your diet, your lifestyle, the medicines you take, and whether you have certain medical conditions. Most people can reduce their chances of developing kidney stones by following the instructions below. Depending on your overall health and the type of kidney stones you tend to develop, your dietitian may give you more specific instructions. What are tips for following this plan? Reading food labels Choose foods with no salt added or low-salt labels. Limit your sodium intake to less than 1500 mg per day. Choose foods with calcium for each meal and snack. Try to eat about 300 mg of calcium at each meal. Foods that contain 200 500 mg of calcium per serving include: ?8 oz (237 ml) of milk, fortified nondairy milk, and fortified fruit juice. ?8 oz (237 ml) of kefir, yogurt, and soy yogurt. ?4 oz (118 ml) of tofu. ?1 oz of cheese. ?1 cup (300 g) of dried figs. ?1 cup (91 g) of cooked broccoli. ?1 3 oz can of sardines or mackerel. Most people need 1000 to 1500 mg of calcium each day. Talk to your dietitian about how much calcium is recommended for you. Shopping Buy plenty of fresh fruits and vegetables. Most people do not need to avoid fruits and vegetables, even if they contain nutrients that may contribute to kidney stones. When shopping for convenience foods, choose: ?Whole pieces of fruit. ?Premade salads with dressing on the side. ?Low-fat fruit and yogurt smoothies. Avoid buying frozen meals or prepared deli foods. Look for foods with live cultures, such as yogurt and kefir. Cooking Do not add salt to food when cooking. Place a salt shaker on the table and allow each person to add his or her own salt to taste. Use vegetable protein, such as beans, textured vegetable protein (TVP), or tofu instead of meat in pasta, casseroles, and soups. Meal planning Eat less salt, if told by your dietitian. To do this: ?Avoid eating processed or premade food. ?Avoid eating fast food. Eat less animal protein, including cheese, meat, poultry, or fish, if told by your dietitian. To do this: ?Limit the number of times you have meat, poultry, fish, or cheese each week. Eat a diet free of meat at least 2 days a week. ?Eat only one serving each day of meat, poultry, fish, or seafood. ?When you prepare animal protein, cut pieces into small portion sizes. For most meat and fish, one serving is about the size of one deck of cards. Eat at least 5 servings of fresh fruits and vegetables each day. To do this: ?Keep fruits and vegetables on hand for snacks. ?Eat 1 piece of fruit or a handful of berries with breakfast. ?Have a salad and fruit at lunch. ?Have two kinds of vegetables at dinner. Limit foods that are high in a substance called oxalate. These include: ?Spinach. ?Rhubarb. ?Beets. ?Potato chips and martiniquais fries. ?Nuts. If you regularly take a diuretic medicine, make sure to eat at least 1 2 fruits or vegetables high in potassium each day. These include: ?Avocado. ?Banana. ?Blackstone, prune, carrot, or tomato juice. ?Baked potato. ?Cabbage. ?Beans and split peas. General instructions Drink enough fluid to keep your urine clear or pale yellow. This is the most important thing you can do. Talk to your health care provider and dietitian about taking daily supplements. Depending on your health and the cause of your kidney stones, you may be advised: ?Not to take supplements with vitamin C. ?To take a calcium supplement. ?To take a daily probiotic supplement. ?To take other supplements such as magnesium, fish oil, or vitamin B6. Take all medicines and supplements as told by your health care provider. Limit alcohol intake to no more than 1 drink a day for non women and 2 drinks a day for men. One drink equals 12 oz of beer, 5 oz of wine, or 1 oz of hard liquor. Lose weight if told by your health care provider. Work with your dietitian to find strategies and an eating plan that works best for you. What foods are not recommended? Limit your intake of the following foods, or as told by your dietitian. Talk to your dietitian about specific foods you should avoid based on the type of kidney stones and your overall health. Grains Breads. Bagels. Rolls. Baked goods. Salted crackers. Cereal. Pasta. Vegetables Spinach. Rhubarb. Beets. Canned vegetables. Pickles. Olives. Meats and other protein foods Nuts. Nut butters. Large portions of meat, poultry, or fish. Salted or cured meats. Deli meats. Hot dogs. Sausages. Dairy Cheese. Beverages Regular soft drinks. Regular vegetable juice. Seasonings and other foods Seasoning blends with salt. Salad dressings. Canned soups. Soy sauce. Ketchup. Barbecue sauce. Canned pasta sauce. Casseroles. Pizza. Lasagna. Frozen meals. Potato chips. Mosotho fries. Summary You can reduce your risk of kidney stones by making changes to your diet. The most important thing you can do is drink enough fluid. You should drink enough fluid to keep your urine clear or pale yellow. Ask your health care provider or dietitian how much protein from animal sources you should eat each day, and also how much salt and calcium you should have each day. This information is not intended to replace advice given to you by your health care provider. Make sure you discuss any questions you have with your health care provider. Document Released: 12/16/2011 Document Revised: 12/11/2019 Document Reviewed: 08/01/2017 [employer] Patient Education 2020 [employer] Follow Up Care 06/10/2022 10:24:22 With:GIOVANA CANTOR, Yovany Kwan, URL Address: [address] [place], [place] [id number]- When:6 months Comments:christine AMOR [facility] 06-10-2022 Hospital Discharge instructions Patient Education 06/10/2022 09:56:18 Dietary Guidelines to Help Prevent Kidney Stones Dietary Guidelines to Help Prevent Kidney Stones Kidney stones are deposits of minerals and salts that form inside your kidneys. Your risk of developing kidney stones may be greater depending on your diet, your lifestyle, the medicines you take, and whether you have certain medical conditions. Most people can reduce their chances of developing kidney stones by following the instructions below. Depending on your overall health and the type of kidney stones you tend to develop, your dietitian may give you more specific instructions. What are tips for following this plan? Reading food labels Choose foods with no salt added or low-salt labels. Limit your sodium intake to less than 1500 mg per day. Choose foods with calcium for each meal and snack. Try to eat about 300 mg of calcium at each meal. Foods that contain 200 500 mg of calcium per serving include: ?8 oz (237 ml) of milk, fortified nondairy milk, and fortified fruit juice. ?8 oz (237 ml) of kefir, yogurt, and soy yogurt. ?4 oz (118 ml) of tofu. ?1 oz of cheese. ?1 cup (300 g) of dried figs. ?1 cup (91 g) of cooked broccoli. ?1 3 oz can of sardines or mackerel. Most people need 1000 to 1500 mg of calcium each day. Talk to your dietitian about how much calcium is recommended for you. Shopping Buy plenty of fresh fruits and vegetables. Most people do not need to avoid fruits and vegetables, even if they contain nutrients that may contribute to kidney stones. When shopping for convenience foods, choose: ?Whole pieces of fruit. ?Premade salads with dressing on the side. ?Low-fat fruit and yogurt smoothies. Avoid buying frozen meals or prepared deli foods. Look for foods with live cultures, such as yogurt and kefir. Cooking Do not add salt to food when cooking. Place a salt shaker on the table and allow each person to add his or her own salt to taste. Use vegetable protein, such as beans, textured vegetable protein (TVP), or tofu instead of meat in pasta, casseroles, and soups. Meal planning Eat less salt, if told by your dietitian. To do this: ?Avoid eating processed or premade food. ?Avoid eating fast food. Eat less animal protein, including cheese, meat, poultry, or fish, if told by your dietitian. To do this: ?Limit the number of times you have meat, poultry, fish, or cheese each week. Eat a diet free of meat at least 2 days a week. ?Eat only one serving each day of meat, poultry, fish, or seafood. ?When you prepare animal protein, cut pieces into small portion sizes. For most meat and fish, one serving is about the size of one deck of cards. Eat at least 5 servings of fresh fruits and vegetables each day. To do this: ?Keep fruits and vegetables on hand for snacks. ?Eat 1 piece of fruit or a handful of berries with breakfast. ?Have a salad and fruit at lunch. ?Have two kinds of vegetables at dinner. Limit foods that are high in a substance called oxalate. These include: ?Spinach. ?Rhubarb. ?Beets. ?Potato chips and martiniquais fries. ?Nuts. If you regularly take a diuretic medicine, make sure to eat at least 1 2 fruits or vegetables high in potassium each day. These include: ?Avocado. ?Banana. ?[place], prune, carrot, or tomato juice. ?Baked potato. ?Cabbage. ?Beans and split peas. General instructions Drink enough fluid to keep your urine clear or pale yellow. This is the most important thing you can do. Talk to your health care provider and dietitian about taking daily supplements. Depending on your health and the cause of your kidney stones, you may be advised: ?Not to take supplements with vitamin C. ?To take a calcium supplement. ?To take a daily probiotic supplement. ?To take other supplements such as magnesium, fish oil, or vitamin B6. Take all medicines and supplements as told by your health care provider. Limit alcohol intake to no more than 1 drink a day for non women and 2 drinks a day for men. One drink equals 12 oz of beer, 5 oz of wine, or 1 oz of hard liquor. Lose weight if told by your health care provider. Work with your dietitian to find strategies and an eating plan that works best for you. What foods are not recommended? Limit your intake of the following foods, or as told by your dietitian. Talk to your dietitian about specific foods you should avoid based on the type of kidney stones and your overall health. Grains Breads. Bagels. Rolls. Baked goods. Salted crackers. Cereal. Pasta. Vegetables Spinach. Rhubarb. Beets. Canned vegetables. Pickles. Olives. Meats and other protein foods Nuts. Nut butters. Large portions of meat, poultry, or fish. Salted or cured meats. Deli meats. Hot dogs. Sausages. Dairy Cheese. Beverages Regular soft drinks. Regular vegetable juice. Seasonings and other foods Seasoning blends with salt. Salad dressings. Canned soups. Soy sauce. Ketchup. Barbecue sauce. Canned pasta sauce. Casseroles. Pizza. Lasagna. Frozen meals. Potato chips. Mosotho fries. Summary You can reduce your risk of kidney stones by making changes to your diet. The most important thing you can do is drink enough fluid. You should drink enough fluid to keep your urine clear or pale yellow. Ask your health care provider or dietitian how much protein from animal sources you should eat each day, and also how much salt and calcium you should have each day. This information is not intended to replace advice given to you by your health care provider. Make sure you discuss any questions you have with your health care provider. Document Released: 12/16/2011 Document Revised: 12/11/2019 Document Reviewed: 08/01/2017 [employer] Patient [employer]. Follow Up Care 05/30/2022 09:25:01 With:GIOVANA CANTOR, Yovany Kwan, URL Address: [address] [address]- When:2 weeks Comments:MT [facility] 01-21-2022 Hospital Discharge instructions Patient Education 01/21/2022 08:33:55 Benign Prostatic Hyperplasia Benign Prostatic Hyperplasia Benign prostatic hyperplasia (BPH) is an enlarged prostate gland that is caused by the normal aging process and not by cancer. The prostate is a walnut-sized gland that is involved in the production of semen. It is located in front of the rectum and below the bladder. The bladder stores urine and the urethra is the tube that carries the urine out of the body. The prostate may get bigger as a man gets older. An enlarged prostate can press on the urethra. This can make it harder to pass urine. The build-up of urine in the bladder can cause infection. Back pressure and infection may progress to bladder damage and kidney (renal) failure. What are the causes? This condition is part of a normal aging process. However, not all men develop problems from this condition. If the prostate enlarges away from the urethra, urine flow will not be blocked. If it enlarges toward the urethra and compresses it, there will be problems passing urine. What increases the risk? This condition is more likely to develop in men over the age of 50 years. What are the signs or symptoms? Symptoms of this condition include: Getting up often during the night to urinate. Needing to urinate frequently during the day. Difficulty starting urine flow. Decrease in size and strength of your urine stream. Leaking (dribbling) after urinating. Inability to pass urine. This needs immediate treatment. Inability to completely empty your bladder. Pain when you pass urine. This is more common if there is also an infection. Urinary tract infection (UTI). How is this diagnosed? This condition is diagnosed based on your medical history, a physical exam, and your symptoms. Tests will also be done, such as: A post-void bladder scan. This measures any amount of urine that may remain in your bladder after you finish urinating. A digital rectal exam. In a rectal exam, your health care provider checks your prostate by putting a lubricated, gloved finger into your rectum to feel the back of your prostate gland. This exam detects the size of your gland and any abnormal lumps or growths. An exam of your urine (urinalysis). A prostate specific antigen (PSA) screening. This is a blood test used to screen for prostate cancer. An ultrasound. This test uses sound waves to electronically produce a picture of your prostate gland. Your health care provider may refer you to a specialist in kidney and prostate diseases (urologist). How is this treated? Once symptoms begin, your health care provider will monitor your condition (active surveillance or watchful waiting). Treatment for this condition will depend on the severity of your condition. Treatment may include: Observation and yearly exams. This may be the only treatment needed if your condition and symptoms are mild. Medicines to relieve your symptoms, including: ?Medicines to shrink the prostate. ?Medicines to relax the muscle of the prostate. Surgery in severe cases. Surgery may include: ?Prostatectomy. In this procedure, the prostate tissue is removed completely through an open incision or with a laparoscope or robotics. ?Transurethral resection of the prostate (TURP). In this procedure, a tool is inserted through the opening at the tip of the penis (urethra). It is used to cut away tissue of the inner core of the prostate. The pieces are removed through the same opening of the penis. This removes the blockage. ?Transurethral incision (TUIP). In this procedure, small cuts are made in the prostate. This lessens the prostate's pressure on the urethra. ?Transurethral microwave thermotherapy (TUMT). This procedure uses microwaves to create heat. The heat destroys and removes a small amount of prostate tissue. ?Transurethral needle ablation (TUNA). This procedure uses radio frequencies to destroy and remove a small amount of prostate tissue. ?Interstitial laser coagulation (ILC). This procedure uses a laser to destroy and remove a small amount of prostate tissue. ?Transurethral electrovaporization (TUVP). This procedure uses electrodes to destroy and remove a small amount of prostate tissue. ?Prostatic urethral lift. This procedure inserts an implant to push the lobes of the prostate away from the urethra. Follow these instructions at home: Take rxtv-[id number] and prescription medicines only as told by your health care provider. Monitor your symptoms for any changes. Contact your health care provider with any changes. Avoid drinking large amounts of liquid before going to bed or out in public. Avoid or reduce how much caffeine or alcohol you drink. Give yourself time when you urinate. Keep all follow-up visits as told by your health care provider. This is important. Contact a health care provider if: You have unexplained back pain. Your symptoms do not get better with treatment. You develop side effects from the medicine you are taking. Your urine becomes very dark or has a bad smell. Your lower abdomen becomes distended and you have trouble passing your urine. Get help right away if: You have a fever or chills. You suddenly cannot urinate. You feel lightheaded, or very dizzy, or you faint. There are large amounts of blood or clots in the urine. Your urinary problems become hard to manage. You develop moderate to severe low back or flank pain. The flank is the side of your body between the ribs and the hip. These symptoms may represent a serious problem that is an emergency. Do not wait to see if the symptoms will go away. Get medical help right away. Call your local emergency services (911 in the [place] Do not drive yourself to the hospital. Summary Benign prostatic hyperplasia (BPH) is an enlarged prostate that is caused by the normal aging process and not by cancer. An enlarged prostate can press on the urethra. This can make it hard to pass urine. This condition is part of a normal aging process and is more likely to develop in men over the age of 50 years. Get help right away if you suddenly cannot urinate. This information is not intended to replace advice given to you by your health care provider. Make sure you discuss any questions you have with your health care provider. Document Released: 08/21/2006 Document Revised: 07/16/2019 Document Reviewed: 09/25/2017 [employer] Patient Education 2020 [employer]. Follow Up Care 01/15/2021 08:45:48 With:Yovany AKHTAR MD, URL Address: [address] [place], [place] [id number]- When:01/21/2023 Comments:with PSA and x-ray [facility] Evaluation + Plan note Future Appointments Appointment Date:02/24/2023 08:00:00 AM Scheduled Provider:Yovany AKHTAR MD Location:[facility] Appointment Type:URO Office Visit [facility] Evaluation + Plan note Future Appointments Appointment Date:02/24/2023 08:00:00 AM Scheduled Provider:Yovany AKHTAR MD Location:[facility] Appointment Type:URO Office Visit Future Scheduled TestsPT & PTT 04/20/22BUN 04/20/22Creatinine 04/20/22Electrolyte Panel 04/20/22CBC w/ Auto Diff 04/20/22 [facility] Evaluation + Plan note Future Appointments Appointment Date:06/17/2022 09:15:00 AM Scheduled Provider:Yovany AKHTAR MD [facility] Appoint[facility] Type:URO Office Visit Appointment Date:02/24/2023 08:00:00 AM Scheduled Provider:Yovany AKHTAR MD [facility] Appointment Type:URO Office Visit [facility] Evaluation + Plan note Future Appointments Appointment Date:06/11/2024 08:00:00 AM Scheduled Provider:Yovany AKHTAR MD [facility] Appointment Type:URO Office Visit [facility] Hospital course Narrative No data available for this section [facility] Hospital Discharge instructions No data available for this section [facility] Progress note No data available for this section [facility] Summary Purpose Family History No Family History Records Found No data available for this section No Family History Records Found Advance Directives No Advanced Directives Records FoundNo Advanced Directives Records Found Additional Source Comments Care Team (unrecognized sect ion and content) Personnel Name: Nancy Fernandez MD Address: [address] [place] [address] Personnel Name: Nancy Fernandez MD Address: Address: [address] [place] [address] Personnel Name: Nancy Fernandez MD Address: Address: [address] [place] [address] Personnel Name: Nancy Fernandez MD Address: Address: [address] [place] [address] (unrecognized sect ion and content) No Status Records FoundNo Status Records Found INFORMATION SOURCE (unrecogn ized section and content) DATE CREATED AUTHOR 07/07/2022 [facility] DATE CREATED AUTHOR AUTHOR'S ORGANIZ ATION 06/08/2023 [facility] FOR RECORDS PERTAINING TO PATIENTS WHO ARE OR HAVE BEEN ENROLLED IN A CHEMICAL DEPENDENCY/SUBSTANCEABUSE PROGRAM, SOME INFORMATION MAY BE OMITTED. This clinical summary was aggregated from multiple sources. Caution should be exercised in using it in the provision of clinical care. This summary normalizes information from multiple sources, and as a consequence, information in this document may materially change the coding, format and clinical context of patient data. In addition, data may be omitted in some cases. CLINICAL DECISIONS SHOULD BE BASED ON THE PRIMARY CLINICAL RECORDS. [facility]. provides no warranty or guarantee of the accuracy or completeness of information in this document.
[2023-09-30 09:12] LABS: Free T3 2.52 pg/mL (2.18-3.98); Thyroid Stimulating Hormone 5.412 uIU/mL (0.358-3.740)
== END 2023-09-30 07:51 | disposition home or self-care (01) ==
PROVIDERS: PCP Family Medicine; Visit Provider Family Medicine
DX: E03.9 Hypothyroidism, unspecified (principal)
CPT/HCPCS: 36415; 84436; 84443; 84481

== ENCOUNTER 2023-11-17 09:14 | Outpatient (OUT) | payer BC, SELFPAY ==
--- OUTSIDE RECORDS SUMMARY | 2023-11-17 09:21 | XMS_ITS | CCD ---
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 Name Role Phone Nancy Fernandez Primary Care Physician VELVET, DR CRUZ Primary Care Unavailable GIOVANA, [...] Admitting Unavailable VELVET, DR CRUZ Attending Unavailable EVLVET, DR CRUZ Consulting Unavailable VELVET, DR CRUZ [...] Allergy Hyperactive behavior (finding) [facility] Andrew Medications Current Medications Medication Drug [...] Daily, # 30 cap(s), Refills(s) 2, Pharmacy: [facility] 5to1 #29054, 188, cm, 06/10/22 9:57:00 EDT, Height/Length Dosing, [...] 02-19-2019 Episodic Other aftercare (1 source) 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 OT SHRP OB NOT ELSW CLASS INI] [...] Range Facility Screenson 06-07-2023 Screens [id number]# 1.00CD:127 [facility] Ambulatory Visit Summaryon 1 Ambulatory Visit Summary LIZ SHELBY :1965 Visit Date:06/06/2023 Ambulatory Visit Instructions Your Diagnosis BPH (benign prostatic hyperplasia) Kidney stone Tests Performed Urnls Dip Stick Auto w/o Microscopy POC 69781 XR Abdomen 1 View -- Results Pending [...] Yovany AKHTAR MD Where: [facility] Patient Educationon 06-06-20 Patient Education Nephrology Dietary [...] Spinach (cooked), rhubarb, beets, sweet potatoes, and Ugandan chard. ? Peanuts. ? Potato chips, rwandan fries, and baked potatoes with skin on. ? Nuts and nut products. ? Chocolate. ? If you regularly take a diuretic medicine, make sure to eat at least 1 or 2 servings of fruits or vegetables that are high in potassium each day. These include: ? Avocado. ? Banana. ? Natrona, prune, carrot, or tomato juice. ? Baked [...] fish oil, or vitamin B6. ? Take bynh-vsg-tyfbwkb and prescription medicines only as told by your health care provider. These include supplements. What foods should I limit? Limit your in (more content not included)... Normal [facility] Urology Office/Clinic Noteon 06-06-2023 Urology Office/Clinic [...] When Contact Information GIOVANA CANTOR, Yovany Kwan, URL In 1 year [email or web address] [address]- Additional Instructions: w/KUB Patient Education Dietary Guidelines [...] with voice recognition artificial intelligence software, specifically Looxcie, Awesome Maps and or Tungle.me. Substitutions may have occurred due to the inherent limitations of voice recognition and artificial intelligence software. Problem List/Past Medical History Ongoing BMI 40.0-44.9, adult BPH (benign prostatic hyperplasia) Chronic anticoagulation Dermatofibroma of left upper arm Diabetes mellitus type 2, noninsulin dependent Elevated PSA Hx of care home use of blood thinners Kidney stone Nocturia Osteoarthritis Historical GERD (gastroesophageal reflux disease) Neoplasm of uncertain behavior of skin Thrombophlebitis of lower extremities Procedure/Surgical History ESWL - Extracorporeal shockwave lithotripsy for renal calculus (05/26/2022), ESWL - Extracorporeal shockwave lithotripsy for renal calculus (08/13/2020), Closure of anal fistula, Dental surgical procedure, Gallbladder, (more content not included)... [facility] Comment on above: Result Comment: Elec tronically Signed By: Yovany AKHTAR MD\.br\Date and Time Signed: 06/06/23 09:32 EDT\.br\Electronically Co-Signed By: Maura Teixeira.br\Date and Time Co-Signed: 06/06/23 09:28 EDT RAD - MISCon 05-31-2023 RAD - MISC [id number]. 00CD:127 [facility] RAD - MISCon 06-20-2022 RAD - MISC [id number] .00CD:127 [facility] [id number] .00CD:127 [facility] Patient Educationon 06-17-20 Patient Education Urology Dietary [...] Rhubarb. ? Beets. ? Potato chips and rwandan fries. ? Nuts. ? If you regularly take a diuretic medicine, make sure to eat at least 1?2 fruits or vegetables high in potassium each day. These include: ? Avocado. ? Banana. ? Natrona, prune, carrot, or tomato juice. ? Baked [...] Salad dr (more content not included)... 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 Normal [facility] Comment on above: Result Comment: Elec [...] by: MANSOOR LIMA Date: 2022-06-16 18:56 Normal [facility] Patient Educationon 06-10-20 Patient Education Urology Dietary [...] Rhubarb. ? Beets. ? Potato chips and rwandan fries. ? Nuts. ? If you regularly take a diuretic medicine, make sure to eat at least 1?2 fruits or vegetables high in potassium each day. These include: ? Avocado. ? Banana. ? Natrona, prune, carrot, or tomato juice. ? Baked [...] Anjana cruz (more content not included)... Normal [facility] [id number] .00CD:127 Normal [facility] Urology Office/Clinic Noteon 06-10-2022 Urology Office/Clinic Note Chief Complaint Follow up HPI Staff Pt is here for PO ESWL. Pt went to [facility] 05/29/22 for right flank pain. CT [...] ESWL 08/13/2020 - CT done 05/29/22 at [facility] showed 2mm right distal ureteral calculus. 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 Normal [facility] Comment on above: Result Comment: Elec [...] MANSOOR LIMA Date: 2022-06-09 17:41 Normal [facility] CBC AUTO DIFFon 05-29-2022 BASO # 0.1 103/ul Normal 0.0-0.1 [facility] Comment on above: Performed By: #### C BC ####[facility] [address] [place] [address]Dr. Yilan Aldrich Basophils/100 WBC (Bld) 0.2 % Normal 0.2-2.0 [facility] Comment on above: Performed By: #### C BC ####[facility] [address] [place] [address]Dr. Yilan Aldrich EO # 0.0 103/ul Normal 0.0-0.7 [facility] Comment on above: Performed By: #### C BC ####[facility] [address] [place] [address]Dr. Yilan Aldrich Eosinophils/100 WBC (Bld) 0.2 % Critically low 0.9-7.0 [facility] Comment on above: Performed By: #### C BC ####[facility] [address] [place] [address]Dr. Wyatt Aldrich Erythrocyte distribution width (RBC) [Ratio] 12.3 % Normal 11.0-15.0 [facility] Comment on above: Performed By: #### C BC ####[facility] [address] [place] [address]Dr. Wyatt Aldrich Hematocrit (Bld) [Volume fraction] 45.9 % Normal 42.0-54.0 [facility] Comment on above: Performed By: #### C BC ####[facility] [address] [place] [address]Dr. Wyatt Aldrich Hemoglobin (Bld) [Mass/Vol] 15.2 g/dL Normal 14.0-18.0 [facility] Comment on above: Performed By: #### C BC ####[facility] [address] [place], [place] [address]Dr. Wyatt Valdemar IG # 0.09 10e3/ul Critically high 0.00-0.03 [facility] Comment on above: Performed By: #### C BC ####[facility] [address] [place], [place] [address]Dr. Wyatt Valdemar IG % 0.4 % Normal 0.0-0.5 [facility] Comment on above: Performed By: #### C BC ####[facility] [address] [place] [address]Dr. Wyatt Valdemar LYMPH # 1.1 103/ul Critically low 1.2-3.8 [facility] Comment on above: Performed By: #### C BC ####[facility] [address] [place], [place] [id number]. Wyatt Valdemar Lymphocytes/100 WBC (Bld) 5.1 % Critically low 20.5-60.0 [facility] Comment on above: Performed By: #### C BC ####[facility] [address] [place], [place] [address]Dr. Wyatt Valdemar MANUAL DIFF REQ NO Normal [facility] Comment on above: Performed By: #### C BC ####[facility] [address] [place], [place] [id number]. Wyatt Aldrich MCH (RBC) [Entitic mass] 30.2 pg Normal 25.9-34.0 [facility] Comment on above: Performed By: #### C BC ####[facility] [address] [place] [id number]. Wyatt Aldrich MCHC (RBC) [Mass/Vol] 33.1 g/dL Normal 29.9-35.2 [facility] Comment on above: Performed By: #### C BC ####[facility] [address] [place] [id number]. Wyatt Aldrich MCV (RBC) [Entitic vol] 91.3 fL Normal 80.0-94.0 [facility] Comment on above: Performed By: #### C BC ####[facility] [address] [place] [address]Dr. Wyatt Aldrich MONO # 1.4 103/ul Critically high 0.3-0.8 [facility] Comment on above: Performed By: #### C BC ####[facility] [address] [place], [place] [address]Dr. Wyatt Aldrich Monocytes/100 WBC (Bld) 6.7 % Normal 1.7-12.0 [facility] Comment on above: Performed By: #### C BC ####[facility] [address] [place], [place] [address]Dr. Wyatt Aldrich NEUT # 18.5 103/ul Critically high 1.4-6.5 [facility] Comment on above: Performed By: #### C BC ####[facility] [address] [place], [place] [id number]. Wyatt Aldrich Neutrophils/100 WBC (Bld) 87.4 % Critically high 43.0-75.0 [facility] Comment on above: Performed By: #### C BC ####[facility] [address] [place], [place] [address]Dr. Wyatt Aldrich Platelet mean volume (Bld) [Entitic vol] 9.3 fL Critically low 9.5-13.5 [facility] Comment on above: Performed By: #### C BC ####[facility] [address] [place], [place] [address]Mh. Wyatt Aldrich PLT 303 103/ul Normal 150-450 [facility] Comment on above: Performed By: #### C BC ####[facility] [address] [place], [place] [address]Sz. Wyatt Aldrich RBC 5.03 106/ul Normal 4.70-6.10 [facility] Comment on above: Performed By: #### C BC ####[facility] [address] [place], [place] [address]Cg. Wyatt Aldrich WBC 21.2 103/ul Critically high 4.0-11.0 [facility] Comment on above: Performed By: #### C BC ####[facility] [address] [place], [place] [address]Rh. Wyatt [address] CT ABD/PELVIS WO CONon 05-29 [...] BOO GUZMAN Date: 2022-05-29 17:32 Normal [facility] ER URINE PROFILEon 2 Bilirubin Ql (U) Negative Normal NEGATIVE [facility] Comment on above: Performed By: #### U MICRO, ERUR #### [facility] [address] [place] [address] Dr. Wyatt Aldrich Clarity (U) CLEAR Normal CLEAR [facility] Comment on above: Performed By: #### U MICRO, ERUR #### [facility] [address] [address] [address] Wyatt Aldrich Color (U) LT. YELLOW Normal YELLOW [facility] Comment on above: Performed By: #### U MICRO, ERUR #### [facility] [address] [place] [address] Dr. Wyatt Aldrich ERUAHD A micrscopic examination will be performed if indicated. Normal [facility] Comment on above: Performed By: #### U MICRO, ERUR #### [facility] [address] [place] [address] Dr. Wyatt Aldrich Glucose Ql (U) Negative Normal NEGATIVE [facility] Comment on above: Performed By: #### U MICRO, ERUR #### [facility] [address] [place] [address] Dr. Wyatt Aldrich Hemoglobin Ql (U) TRACE-INTACT Abnormal NEGATIVE [facility] Comment on above: Performed By: #### U MICRO, ERUR #### [facility] [address] [place] [address] Dr. Wyatt Aldrich Ketones Ql (U) Negative Normal NEGATIVE [facility] Comment on above: Performed By: #### U MICRO, ERUR #### [facility] [address] [place] [address] Dr. Wyatt Aldrich LEUKOCYTES Negative Normal NEGATIVE [facility] Comment on above: Performed By: #### U MICRO, ERUR #### [facility] [address] [place] [address] Dr. Wyatt Aldrich Nitrite Ql (U) Negative Normal NEGATIVE [facility] Comment on above: Performed By: #### U MICRO, ERUR #### [facility] [address] [place] [address] Dr. Wyatt Aldrich pH (U) 7.0 [pH] Normal 5-9 [facility] Comment on above: Performed By: #### U MICRO, ERUR #### [facility] [address] [place] [address] Dr. Wyatt Aldrich SPEC GRAVITY 1.020 Normal 1.005-<=1.025 [facility] Comment on above: Performed By: #### U MICRO, ERUR #### [facility] [address] [place] [address] Dr. Wyatt Aldrich UA PROTEIN Negative Normal NEGATIVE/ TRACE [facility] Comment on above: Performed By: #### U MICRO, ERUR #### [facility] [address] [place] [address] Dr. Wyatt Aldrich UR MICRO IND INDICATED Normal [facility] Comment on above: Performed By: #### U MICRO, ERUR #### [facility] [address] [place] [address] Dr. Wyatt Aldrich Urobilinogen Qn (U) 0.2 {Sharon'U}/dL Normal 0.2 - 1. 0 [facility] Comment on above: Performed By: #### U MICRO, ERUR #### [facility] [address] [place] [address] Dr. Wyatt Aldrich PROF 14(COMP METB)on 022 Albumin [Mass/Vol] 3.9 g/dL Normal 3.4-5.0 [facility] Comment on above: Performed By: #### C MP #### [facility] [address] [place] [address] Dr. Wyatt Aldrich Albumin/Globulin [Mass ratio] 1.1 {ratio} Normal [facility] Comment on above: Performed By: #### C MP #### [facility] [address] [place] [address] Dr. Wyatt Aldrich ALP [Catalytic activity/Vol] 70 U/L Normal 46-116 [facility] Comment on above: Performed By: #### C MP #### [facility] [address] [place] [address] Dr. Wyatt Aldrich ALT [Catalytic activity/Vol] 38 U/L Normal 16-63 [facility] Comment on above: Performed By: #### C MP #### [facility] [address] [address] [address] Wyatt Aldrich Anion gap [Moles/Vol] 12.6 mmol/L Normal [facility] Comment on above: Performed By: #### C MP #### [facility] [address] [address] [address] Wyatt Aldrich AST [Catalytic activity/Vol] 20 U/L Normal 15-37 [facility] Comment on above: Performed By: #### C MP #### [facility] [address] [place] [address] [address] Wyatt Aldrich Bilirubin [Mass/Vol] 0.6 mg/dL Normal 0.2-1.0 [facility] Comment on above: Performed By: #### C MP #### [facility] [address] [address] [address] Wyatt Aldrich Calcium [Mass/Vol] 8.7 mg/dL Normal 8.5-10.1 [facility] Comment on above: Performed By: #### C MP #### [facility] [address] [address] [address] Wyatt Aldrich Chloride [Moles/Vol] 95 mmol/L Critically low 98-107 [facility] Comment on above: Performed By: #### C MP #### [facility] [address] [address] [address] Wyatt Aldrich CO2 [Moles/Vol] 29.9 mmol/L Normal 21.0-32.0 [facility] Comment on above: Performed By: #### C MP #### [facility] [address] [address] [address] Wyatt Aldrich Creatinine [Mass/Vol] 1.04 mg/dL Normal 0.70-1.30 [facility] Comment on above: Performed By: #### C MP #### [facility] [address] [address] [address] Wyatt Aldrich EGFR-AF PAKISTANI >60 Normal >=60 [facility] Comment on above: Performed By: #### C MP #### [facility] [address] [address] [address] Wyatt Aldrich EGFR-NON AF PAKISTANI >60 Normal >=60 [facility] Comment on above: Performed By: #### C MP #### [facility] [address] [address] [address] Wyatt Aldrich Globulin (S) [Mass/Vol] 3.4 g/dL Normal [facility] Comment on above: Performed By: #### C MP #### [facility] [address] [address] [address] Wyatt Aldrich Glucose [Mass/Vol] 148 mg/dL Critically high 74-106 T [facility] Comment on above: Performed By: #### C MP #### [facility] [address] [place] [address] Dr. Wyatt Aldrich Potassium [Moles/Vol] 4.5 mmol/L Normal 3.5-5.1 [facility] Comment on above: Performed By: #### C MP #### [facility] [address] [place] [address] Dr. Wyatt Aldrich Protein [Mass/Vol] 7.3 g/dL Normal 6.4-8.2 [facility] Comment on above: Performed By: #### C MP #### [facility] [address] [place] [address] Dr. Wyatt Aldrich Sodium [Moles/Vol] 133 mmol/L Critically low 136-145 Th [facility] Comment on above: Performed By: #### C MP #### [facility] [address] [place] [address] Dr. Wyatt Aldrich Urea nitrogen [Mass/Vol] 15.0 mg/dL Normal 7.0-18.0 [facility] Comment on above: Performed By: #### C MP #### [facility] [address] [place] [address] Dr. Wyatt Aldrich Urea nitrogen/Creatinine [Mass ratio] 14.4 mg/mg Normal [facility] Comment on above: Performed By: #### C MP #### [facility] [address] [place], [place] [address] Dr. Wyatt Aldrich URINE MICROSCOPIC ONLYon BACTERIA NONE SEEN Normal NONE SEEN [facility] Comment on above: Performed By: #### U MICRO, ERUR #### [facility] [address] [place] [address] Dr. Wyatt Aldrich Bacteria identified Cx Nom (U) NOT INDICATED Normal [facility] Comment on above: Performed By: #### U MICRO, ERUR #### [facility] [address] [place] [address] Dr. Wyatt Aldrich CAST NONE SEEN Normal NONE SEEN [facility] Comment on above: Performed By: #### U MICRO, ERUR #### [facility] [address] [place] [address] Dr. Wyatt Aldrich Crystals LM Nom (Urine sed) NONE SEEN Normal NONE SEEN [facility] Comment on above: Performed By: #### U MICRO, ERUR #### [facility] [address] [place] [address] Dr. Wyatt Aldrich Epithelial cells LM Ql (Urine sed) NONE SEEN Normal NONE SEEN /RARE [facility] Comment on above: Performed By: #### U MICRO, ERUR #### [facility] [address] [place] [address] Dr. Wyatt Aldrich MUCOUS NONE SEEN Normal NONE SEEN [facility] Comment on above: Performed By: #### U MICRO, ERUR #### [facility] [address] [place] [address] Dr. Wyatt Aldrich RBC 2-5 Abnormal 0-2 [facility] Comment on above: Performed By: #### U MICRO, ERUR #### [facility] [address] [place] [address] Dr. Wyatt Aldrich WBC NONE SEEN Normal NONE SEEN [facility] Comment on above: Performed By: #### U MICRO, ERUR #### [facility] [address] [place] [address] Dr. Wyatt Aldrich T4 LABCORPon 01-29-2022 T4 [Mass/Vol] 9.1 ug/dL Normal 4.5-12.0 [facility] Comment on above: Performed By: #### T 4LC ####[facility] [address] [place] [address]Dr. Wyatt Aldrich CBC AUTO DIFFon 01-28-2022 BASO # 0.1 103/ul Normal 0.0-0.1 [facility] Comment on above: Performed By: #### C BC ####[facility] [address] [place] [id number]. Wyatt Valdemar Basophils/100 WBC (Bld) 0.6 % Normal 0.2-2.0 [facility] Comment on above: Performed By: #### C BC ####[facility] [address] [place], [place] [address]Dr. Wyatt Aldrich EO # 0.2 103/ul Normal 0.0-0.7 [facility] Comment on above: Performed By: #### C BC ####[facility] [address] [place], [place] [address]Dr. Wyatt Valdemar Eosinophils/100 WBC (Bld) 2.4 % Normal 0.9-7.0 [facility] Comment on above: Performed By: #### C BC ####[facility] [address] [place], [place] [address]Dr. Wyatt Aldrich Erythrocyte distribution width (RBC) [Ratio] 12.5 % Normal 11.0-15.0 [facility] Comment on above: Performed By: #### C BC ####[facility] [address] [place], [place] [address]Dr. Wyatt Aldrich Hematocrit (Bld) [Volume fraction] 43.5 % Normal 42.0-54.0 [facility] Comment on above: Performed By: #### C BC ####[facility] [address] [place], [place] [address]Dr. Wyatt Aldrich Hemoglobin (Bld) [Mass/Vol] 14.4 g/dL Normal 14.0-18.0 [facility] Comment on above: Performed By: #### C BC ####[facility] [address] [place], [place] [address]Dr. Jossielalo Aldrich IG # 0.03 10e3/ul Normal 0.00-0.03 [facility] Comment on above: Performed By: #### C BC ####[facility] [address] [place] [address]DrCullen Aldrich IG % 0.4 % Normal 0.0-0.5 [facility] Comment on above: Performed By: #### C BC ####[facility] System [address] [place] [address]DrCullen Aldrich LYMPH # 2.1 103/ul Normal 1.2-3.8 [facility] Comment on above: Performed By: #### C BC ####[facility] [address]xkv[address] [place] [address]DrCullen Aldrich Lymphocytes/100 WBC (Bld) 24.8 % Normal 20.5-60.0 [facility] Comment on above: Performed By: #### C BC ####[facility] Sez[address] [place], [place] [address]DrCullen Aldrich MANUAL DIFF REQ NO Normal [facility] Comment on above: Performed By: #### C BC ####[facility] [address] [place] [id number] Jossielalo Aldrich MCH (RBC) [Entitic mass] 30.6 pg Normal 25.9-34.0 [facility] Comment on above: Performed By: #### C BC ####[facility] [address] [place], [place] [address]DrCullen Aldrich MCHC (RBC) [Mass/Vol] 33.1 g/dL Normal 29.9-35.2 [facility] Comment on above: Performed By: #### C BC ####[facility] Duey[address] [place], [place] [id number] Aldrich MCV (RBC) [Entitic vol] 92.6 fL Normal 80.0-94.0 [facility] Comment on above: Performed By: #### C BC ####[facility] [address] [place] [address]DrCullen Aldrich MONO # 0.6 103/ul Normal 0.3-0.8 [facility] Comment on above: Performed By: #### C BC ####[facility] Lky[address]owyyb25[address] [place] [id number]. Wyatt Aldrich Monocytes/100 WBC (Bld) 7.7 % Normal 1.7-12.0 [facility] Comment on above: Performed By: #### C BC ####[facility] [address]kbkguvvvm28[address] [place] [id number]. Wyatt Aldrich NEUT # 5.3 103/ul Normal 1.4-6.5 [facility] Comment on above: Performed By: #### C BC ####[facility] Qabtvstxfy[address] [place] [id number]. Wyatt Aldrich Neutrophils/100 WBC (Bld) 64.1 % Normal 43.0-75.0 [facility] Comment on above: Performed By: #### C BC ####[facility] Cfugtldrem[address] [place] [address]Dr. Wyatt Aldrich Platelet mean volume (Bld) [Entitic vol] 9.4 fL Critically low 9.5-13.5 [facility] Comment on above: Performed By: #### C BC ####[facility] [address]nfatvmmfu[address] [place] [address]Dr. Wyatt Aldrich PLT 280 103/ul Normal 150-450 [facility] Comment on above: Performed By: #### C BC ####[facility] Ftsvqisayg5[address] [place] [id number]. Wyatt Aldrich RBC 4.70 106/ul Normal 4.70-6.10 [facility] Comment on above: Performed By: #### C BC ####[facility] Ekqffpinzh[address] [place] [id number]. Wyatt Aldrich WBC 8.3 103/ul Normal 4.0-11.0 [facility] Comment on above: Performed By: #### C BC ####[facility] Msskdexgvu7[address] [place] [id number]. Wyatt Aldrich FREE T3on 01-28-2022 FREE T3 2.70 pg/mlL Normal 2.18-3.98 [facility] Comment on above: Performed By: #### L IPID, CMP, TSH, FT3 ####[facility] [address]zgtjvs[address] [place] [id number]. Wyatt Aldrich GLYCOHEMOGLOBIN A1Con 2021 ADA RECOMMENDATION SEE BELOW Normal [facility] Comment on above: Result Comment: ADA RECOMMENDED LIMIT 4.0 - 6.0 ADA THERAPEUTIC TARGET < 7.0 ACTION SUGGESTED > 7.0 Performed By: #### A 1C #### [facility] [address] [address] [address] Wyatt Aldrich Glucose [Mass/Vol] 143 mg/dL Normal [facility] Comment on above: Performed By: #### A 1C #### [facility] [address] [address] [address] Wyatt Aldrich HbA1c (Bld) [Mass fraction] 6.6 % Critically high 4.5-6.2 [facility] Comment on above: Performed By: #### A 1C #### [facility] [address] [address] [address] Wyatt Aldrich LIPID PROFILEon 01-28-2022 CHOL-HDL RATIO NORM SEE BELOW Normal [facility] Comment on above: Result Comment: 3.3 - 4.4 LOW RISK 4.4 - 7.1 AVERAGE RISK 7.1 - 11.0 MODERATE RISK >11.0 HIGH RISK Performed By: #### L IPID, CMP, TSH, FT3 ####[facility] [address] [place] [address]DrCullen Aldrich Cholesterol [Mass/Vol] 176 mg/dL Normal <=200 [facility] Comment on above: Performed By: #### L IPID, CMP, TSH, FT3 ####[facility] Fvafwskoye[address] [place] [id number] Aldrich Cholesterol in HDL [Mass/Vol] 35 mg/dL Critically low 40-60 [facility] Comment on above: Performed By: #### L IPID, CMP, TSH, FT3 ####[facility] [address]ekysvenfr[address] [place] [address]DrCullen Aldrich Cholesterol in LDL [Mass/Vol] 94.4 mg/dL Normal [facility] Comment on above: Performed By: #### L IPID, CMP, TSH, FT3 ####[facility] Qqzokbwfyu[address] [place] [id number]. Wyatt Aldrich Cholesterol.total/Cho lesterol in HDL [Mass ratio] 5.0 {ratio} Normal [facility] Comment on above: Performed By: #### L IPID, CMP, TSH, FT3 ####[facility] Rwwcltndqz[address] [place] [id number]. Wyatt Aldrich HDL NORMAL > or = 60 mg/dl - LO W CARDIOVASCULAR RISK <40 mg/dl - HIGH CARDIOVASCULAR RISK Normal [facility] Comment on above: Performed By: #### L IPID, CMP, TSH, FT3 ####[facility] Rmagfiahgo[address] [place] [address]Dr. Wyatt Aldrich LDL CALC NORMAL SEE BELOW Normal [facility] Comment on above: Result Comment: <100 mg/dl OPTIMAL 100 - 129 mg/dl NEAR OR ABOVE OPTIMAL 130 - 159 mg/dl BORDERLINE HIGH 160 - 189 mg/dl HIGH >190 mg/dl VERY HIGH Performed By: #### L IPID, CMP, TSH, FT3 ####[facility] Ujpootuouc[address] [place] [id number]. Wyatt Aldrich Triglyceride [Mass/Vol] 233 mg/dL Critically high <=150 [facility] Comment on above: Performed By: #### L IPID, CMP, TSH, FT3 ####[facility] Qusnajmmum[address] [place] [id number]. Wyatt Aldrich VLDL CALC 46.6 mg/dL Normal [facility] Comment on above: Performed By: #### L IPID, CMP, TSH, FT3 ####[facility] Igazdpaaha[address] [place] [id number] Aldrich OCC BLD IMMUNO SCREENon 01-03 OCCULT BLOOD Negative Normal NEGATIVE [facility] Comment on above: Performed By: #### O BSCRN #### [facility] [address] [address] [address] Wyatt Aldrich PROF 14(COMP METB)on 022 Albumin [Mass/Vol] 3.4 g/dL Normal 3.4-5.0 [facility] Comment on above: Performed By: #### L IPID, CMP, TSH, FT3 ####[facility] [address]gb[address]kb[address] [place] [address]Dr. Wyatt Aldrich Albumin/Globulin [Mass ratio] 1.0 {ratio} Normal [facility] Comment on above: Performed By: #### L IPID, CMP, TSH, FT3 ####[facility] [address]tpeuirett[address] [place] [address]Dr. Wyatt Aldrich ALP [Catalytic activity/Vol] 65 U/L Normal 46-116 [facility] Comment on above: Performed By: #### L IPID, CMP, TSH, FT3 ####[facility] Xlkyeutpjq[address] [place] [address]Dr. Wyatt Aldrich ALT [Catalytic activity/Vol] 45 U/L Normal 16-63 [facility] Comment on above: Performed By: #### L IPID, CMP, TSH, FT3 ####[facility] [address] [place], [place] [address]Dr. Wyatt Aldrich Anion gap [Moles/Vol] 9.7 mmol/L Normal [facility] Comment on above: Performed By: #### L IPID, CMP, TSH, FT3 ####[facility] Lydtprwdxg[address] [place] [address]Dr. Wyatt Aldrich AST [Catalytic activity/Vol] 20 U/L Normal 15-37 [facility] Comment on above: Performed By: #### L IPID, CMP, TSH, FT3 ####[facility] [address]hqpvrb[address] [place] [address]Dr. Wyatt Aldrich Bilirubin [Mass/Vol] 0.4 mg/dL Normal 0.2-1.0 [facility] Comment on above: Performed By: #### L IPID, CMP, TSH, FT3 ####[facility] Aqbjvjtpqg13[address] [place] [address]Dr. Wyatt Aldrich Calcium [Mass/Vol] 8.5 mg/dL Normal 8.5-10.1 [facility] Comment on above: Performed By: #### L IPID, CMP, TSH, FT3 ####[facility] Hpxjuipdaj[address] [place] [address]Dr. Wyatt Aldrich Chloride [Moles/Vol] 101 mmol/L Normal 98-107 [facility] Comment on above: Performed By: #### L IPID, CMP, TSH, FT3 ####[facility] Ptvtsjcqda[address] [place] [address]Dr. Wyatt Aldrich CO2 [Moles/Vol] 33.3 mmol/L Critically high 21.0-32.0 [facility] Comment on above: Performed By: #### L IPID, CMP, TSH, FT3 ####[facility] [address]qs[address]upc[address] [place], [place] [address]Dr. Wyatt Aldrich Creatinine [Mass/Vol] 0.77 mg/dL Normal 0.70-1.30 [facility] Comment on above: Performed By: #### L IPID, CMP, TSH, FT3 ####[facility] [address]ktf[address] [place], [place] [address]Dr. Wyatt Aldrich EGFR-AF PAKISTANI >60 Normal >=60 [facility] Comment on above: Performed By: #### L IPID, CMP, TSH, FT3 ####[facility] [address]wpzx[address] [place], [place] [address]Dr. Wyatt Aldrich EGFR-NON AF PAKISTANI >60 Normal >=60 [facility] Comment on above: Performed By: #### L IPID, CMP, TSH, FT3 ####[facility] Axxuqchuqx6[address] [place] [address]Dr. Wyatt Aldrich Globulin (S) [Mass/Vol] 3.3 g/dL Normal [facility] Comment on above: Performed By: #### L IPID, CMP, TSH, FT3 ####[facility] Dtrttrckhv[address] [place] [address]Dr. Wyatt Aldrich Glucose [Mass/Vol] 137 mg/dL Critically high 74-106 [facility] Comment on above: Performed By: #### L IPID, CMP, TSH, FT3 ####[facility] Mjmmxxydnz0216 [place] [address]Dr. Wyatt Aldrich Potassium [Moles/Vol] 4.0 mmol/L Normal 3.5-5.1 [facility] Comment on above: Performed By: #### L IPID, CMP, TSH, FT3 ####[facility] Fzaqmimpsy[address] [place] [address]Dr. Wyatt Aldrich Protein [Mass/Vol] 6.7 g/dL Normal 6.4-8.2 [facility] Comment on above: Performed By: #### L IPID, CMP, TSH, FT3 ####[facility] Hetehvxrgx[address] [place], [place] [address]Dr. Wyatt Aldrich Sodium [Moles/Vol] 140 mmol/L Normal 136-145 [facility] Comment on above: Performed By: #### L IPID, CMP, TSH, FT3 ####[facility] P[address]dzjabza[address] [place], [place] [address]Dr. Wyatt Aldrich Urea nitrogen [Mass/Vol] 13.0 mg/dL Normal 7.0-18.0 [facility] Comment on above: Performed By: #### L IPID, CMP, TSH, FT3 ####[facility] Sr[address]ugq[address] [place], [place] [address]Dr. Wyatt Aldrich Urea nitrogen/Creatinine [Mass ratio] 16.9 mg/mg Normal [facility] Comment on above: Performed By: #### L IPID, CMP, TSH, FT3 ####[facility] Ciquhex[address] [place], [place] [address]Dr. Wyatt Aldrich TSHon 01-28-2022 TSH 5.562 uIU/mL Critically high 0.358-3.740 [facility] Comment on above: Performed By: #### L IPID, CMP, TSH, FT3 ####[facility] [address] [place], [place] [address]Dr. Wyatt Aldrich TSH RANGE SEE BELOW Normal [facility] Comment on above: Result Comment: <0.3 4 UIU/ml HYPERTHYROID 0.34-5.60 UIU/ml EUTHYROID >5.60 UIU/ml HYPOTHYROID Performed By: #### L IPID, CMP, TSH, FT3 ####[facility] [address]pfvu[address] [place], [place] [address]NdCullen Aldrich XR KUB 1 VIEWon 01-20-2022 XR [...] MANSOOR LIMA Date: 2022-01-20 14:12 Normal [facility] MRI LSPINE WO W CONon 2021 MRI [facility] WO W CON EXAMINATION: MRI [place] WO W CON HISTORY: Prolapsed lumbar intervertebral [...] by: TANISHA CHIU Date: 2021-10-04 11:23 Normal [facility] XR LSPINE MIN 4 VIEWSon 09-05 XR [...] by: SOLO SAVAGE Date: 2021-09-27 11:31 Normal [facility] Vital Signs Date Time Vital Sign Value Performing Clinician Jessi chowdhury 06-06-2023 08:48-0400 Blood Pressure Location Yovany LessonFace [facility] 06-06-2023 08:48-0400 Diastolic blood pressure 66 mm[Hg] YovanyBiz In A Box JV [facility] 06-06-2023 08:48-0400 Heart rate 83 /min Yovany LessonFace [facility] 06-06-2023 08:48-0400 Systolic blood pressure 142 mm[Hg] YovanyBiz In A Box JV [facility] 06-17-2022 09:14-0400 Blood Pressure Location Yovany COOK [facility] 06-17-2022 09:14-0400 Diastolic blood pressure 96 mm[Hg] Yovany COOK [facility] 06-17-2022 09:14-0400 Heart rate 67 /min Yovany COOK [facility] 06-17-2022 09:14-0400 Systolic blood pressure 159 mm[Hg] Yovany COOK [facility] 06-10-2022 09:54-0400 Blood Pressure Location Yovany COOK [facility] 06-10-2022 09:54-0400 Diastolic blood pressure 102 mm[Hg] Yovany COOK [facility] 06-10-2022 09:54-0400 Heart rate 68 /min Yovany COOK [facility] 06-10-2022 09:54-0400 Systolic blood pressure 166 mm[Hg] Yovany COOK [facility] 01-21-2022 08:44-0400 Blood Pressure Location Yovany COOK [facility] 01-21-2022 08:44-0400 Diastolic blood pressure 87 mm[Hg] Yovany COOK [facility] 01-21-2022 08:44-0400 Heart rate 72 /min Yovany COOK [facility] 01-21-2022 08:44-0400 Systolic blood pressure 140 mm[Hg] Yovany AKHTAR [facility] Encounters Encounter Date Encounter Type Care Provider Facility Start: 06-11-2024 ambulatory Yovany AKHTAR Facility :[facility] Start: 06-06-2023 End: 06-07-2023 ambulatory Yovany AKHTAR Facility:[facility] Start: 06-06-2023 End: 06-06-2023 Patient encounter procedure Yovany AKHTAR [facility] Start: 06-17-2022 End: 06-18-2022 ambulatory Yovany AKHTAR Facility:[facility] Start: 06-17-2022 End: 06-17-2022 Patient encounter procedure Yovany AKHTAR [facility] Start: 06-16-2022 End: 06-17-[address] NANCY FERNANDEZ Facility:[facility] Start: 06-10-2022 End: 06-11-2022 ambulatory Yovany AKHTAR Facility:[facility] Start: 06-10-2022 End: 06-10-2022 Patient encounter procedure Yovany AKHTAR [facility] Start: 06-09-2022 End: 06-10-[address] NANCY FERNANDEZ Facility:[facility] Start: 05-29-2022 End: 05-29-[address] NANCY FERNANDEZ Facility:[facility] Start: 05-11-2022 End: 05-11-2022 Patient encounter procedure Yovany AKHTAR [facility] Start: 02-03-2022 Encounter for genera l adult medical examination without abnormal findings DR NANCY FERNANDEZ [facility] Start: 01-28-2022 End: 01-29-[address] NANCY FERNANDEZ Facility:[facility] Start: 01-28-2022 End: 01-29-2022 Encounter for general adult medical examination without abnormal findings DR NANCY FERNANDEZ Facility:[facility] Start: 01-21-2022 End: 01-21-2022 Patient encounter procedure Yovany AKHTAR [facility] Start: 01-20-2022 End: 01-21-2022 ambulatory [...] on above: Performed By: #### P SAD ####[place] [address]DrCullen Aldrich Start: 08-13-2020 Extracorporeal shock wave lithotripsy [...] vaccine recombinant Yovany AKHTAR [facility] 02-12-2022 pneumococcal 20-maría nt conjugate vaccine Yovany AKHTAR [facility] 02-03-2022 zoster vaccine recombinant Yovany AKHTAR [facility] 12-08-2020 SARS-CoV-2 (COVID-19 ) mRNA-1273 vaccine Yovany AKHTAR [facility] 11-17-2020 SARS-CoV-2 (COVID-19 ) mRNA BNT-162b2 vax Yovany AKHTAR [facility] 11-11-2020 SARS-CoV-2 (COVID-19 ) mRNA-1273 vaccine Yovany AKHTAR [facility] Payers Date Payer Category Payer Unknown [id number] 1965 Unknown [id number] 1965 Unknown [id number] 1964 Unknown [id number] 1964 Unknown [id number] .[id number] [id number] 1964 Unknown [id number] 1964 Unknown [id number] 2.16.84 [id number] 1964 Unknown [id number] 2.16.84 [id number] 1964 Unknown [id number] 2.16.84 [id number] 1964 Unknown [id number] 2.16.8 [id number] 1964 Unknown [id number] 2.16.8 [id number] 1964 Unknown [id number] 2.16.8 [id number] 1964 Unknown [id number] 2.16.8 [id number] 1960 Private Health Insurance [id number] Social History Date Type Detail Facility Start: 01-15-2021 End: 06-06-2023 Tobacco smoking status Ex-smoker (finding) [facility] Tobacco smoking status Never [facility] Macheen Sex Assigned At Male [facility] Macheen Functional Status Date Assessment Result Facility 06-06-2023 Functional Status N/A [facility] 06-17-2022 Functional Status N/A [facility] 06-10-2022 Functional Status N/A [facility] Clinical Notes 01-21-2022 to 06-06-2023 Laboratory Note [...] include: ?8 oz (237 mL) of milk, kvtxmnf-gupjstorvkfp-kvnxs milk, and calcium-fortifiedfruit juice. Calcium-fortified means that [...] ?Spinach (cooked), rhubarb, beets, sweet potatoes, and Ugandan chard. ?Peanuts. ?Potato chips, rwandan fries, and baked potatoes with skin on. ?Nuts and nut products. ?Chocolate. If you regularly take a diuretic medicine, make sure to eat at least 1 or 2 servings of fruits or vegetables that are high in potassium each day. These include: ?Avocado. ?Banana. ?Natrona, prune, carrot, or tomato juice. ?Baked potato. [...] magnesium, fish oil, or vitamin B6. Take xwkz-qpj-wojgiwg and prescription medicines only as told by [...] Casseroles. Pizza. Lasagna. Frozen meals. Potato chips. Palestinian fries. The items listed above may not [...] provider. Document Revised: 05/02/2022 Document Reviewed: 05/02/2022 [employer] Patient Education 2022 [employer]. Follow Up Care 01/21/2022 09:03:45 With:GIOVANA CANTOR, Yovany Kwan, JOIL Address: Mandeep CAPUTO [address] [place] [address]- When:Within 1 Year(s) Comments:w/MT [facility] 06-17-2022 Hospital Discharge instructions Patient [...] include: ?Spinach. ?Rhubarb. ?Beets. ?Potato chips and rwandan fries. ?Nuts. If you regularly take a diuretic medicine, make sure to eat at least 1 2 fruits or vegetables high in potassium each day. These include: ?Avocado. ?Banana. ?Natrona, prune, carrot, or tomato juice. ?Baked potato. [...] Casseroles. Pizza. Lasagna. Frozen meals. Potato chips. Palestinian fries. Summary You can reduce your risk [...] 12/16/2011 Document Revised: 12/11/2019 Document Reviewed: 08/01/2017 [employer] Patient Education 2020 [employer] Follow Up Care 06/10/2022 10:24:22 With:GIOVANA CANTOR, Yovany Kwan, URL Address: [address] [place], [place] [id number]- When:6 months Comments:christine AMOR [facility] 06-10-2022 Hospital Discharge instructions Patient [...] include: ?Spinach. ?Rhubarb. ?Beets. ?Potato chips and rwandan fries. ?Nuts. If you regularly take a diuretic medicine, make sure to eat at least 1 2 fruits or vegetables high in potassium each day. These include: ?Avocado. ?Banana. ?Natrona, prune, carrot, or tomato juice. ?Baked potato. [...] Casseroles. Pizza. Lasagna. Frozen meals. Potato chips. Palestinian fries. Summary You can reduce your risk [...] 12/16/2011 Document Revised: 12/11/2019 Document Reviewed: 08/01/2017 [employer] Patient Education 2020 [employer]. Follow Up Care 05/30/2022 09:25:01 With:GIOVANA CANTOR, Yovany Kwan, URL Address: [address] [address]- When:2 weeks Comments:[place] [facility] 01-21-2022 Hospital Discharge instructions Patient [...] urethra. Follow these instructions at home: Take fgfg-nnb-mfefkkx and prescription medicines only as told by [...] 08/21/2006 Document Revised: 07/16/2019 Document Reviewed: 09/25/2017 [employer] Patient Education 2020 [employer]. Follow Up Care 01/15/2021 08:45:48 With:Yovany AKHTAR MD, URL Address: [address] [place], [place] [id number]- When:01/21/2023 Comments:with PSA and x-ray [facility] Evaluation + Plan note Future Appointments Appointment Date:02/24/2023 08:00:00 AM Scheduled Provider:Yovany AKHTAR MD Location:[facility] Appointment Type:URO Office Visit [facility] Evaluation + Plan note Future Appointments Appointment Date:02/24/2023 08:00:00 AM Scheduled Provider:Yovany AKHTAR MD Location:[facility] Appointment Type:URO Office Visit Future Scheduled TestsPT & PTT 04/20/22BUN 04/20/22Creatinine 04/20/22Electrolyte Panel 04/20/22CBC w/ Auto Diff 04/20/22 [facility] Evaluation + Plan note Future Appointments Appointment Date:06/17/2022 09:15:00 AM Scheduled Provider:[facility]HTAR MD [facility]O Office Visit Appointment Date:02/24/2023 08:00:00 AM Scheduled Provider:Yovany AKHTAR MD [facility] Type:URO Office Visit [facility] Evaluation + Plan note Future Appointments Appointment Date:06/11/2024 08:00:00 AM Scheduled Provider:Yovany AKHTAR MD [facility] App[facility] Type:URO Office Visit [facility] Hospital course Narrative No data available for this section [facility] Hospital Discharge instructions No data available for this section [facility] Progress note No data available for this section [facility] Summary Purpose Family History No Family History Records Found No data available for this section No Family History Records Found Advance Directives No Advanced Directives Records FoundNo Advanced Directives Records Found Additional Source Comments Care Team (unrecognized sect ion and content) Personnel Name: Nancy Feranndez MD Address: [address] [place] [address] Personnel Name: Nancy Fernandez MD Address: Address: [address] [place] [address] Personnel Name: Nancy Fernandez MD Address: Address: [address] [place] [address] Personnel Name: Nancy Fernandez MD Address: Address: [address] [place] [address] (unrecognized sect ion and content) No Status Records FoundNo Status Records Found INFORMATION SOURCE (unrecogn ized section and content) DATE CREATED AUTHOR 07/07/2022 [facility] DATE CREATED AUTHOR AUTHOR'S ORGANIZ ATION 06/08/2023 [facility] FOR RECORDS PERTAINING TO PATIENTS WHO ARE [...] BE BASED ON THE PRIMARY CLINICAL RECORDS. [facility]. provides no warranty or guarantee of the accuracy or completeness of information in this document.
--- NOTE | 2023-11-17 09:34 | XR_ITS ---
The [address] [address] Patient Name: LIZ SHELBY MRN: [id number] date: 1965 Sex: M Assigned Patient Location: LAB Current Patient Location: LAB Accession/Order Number: [id number] Exam Date: 11/17/2023 09:43 Report Date: 11/18/2023 09:44 At the request of: NANCY VERDIN Procedure: XR thoracic spine 3V EXAMINATION: XR thoracic spine 3V HISTORY: Herniated Lumbar Disc, Cervical Radiculopathy COMPARISON: No relevant comparison available. FINDINGS: BONES: Slight anterior wedging T11 and T12 vertebral bodies. Slight reversal of normal lordotic curvature of thoracic spine. DISC SPACES: Multilevel mild narrowing of lower thoracic spine. PARASPINOUS: Negative. No paraspinous abnormality is seen. OTHER: Negative. XR/XR thoracic spine 3V IMPRESSION: 1. Mild anterior wedging of T11 and T12 vertebral bodies; remote compression fractures versus developmental. Acute changes are felt less likely. 2. Slight reversal normal lordotic curvature; positioning versus muscle spasm. Electronically authenticated by: SOLO SAVAGE Date: 11/18/2023 09:44
--- NOTE | 2023-11-17 09:34 | XR_ITS ---
The [address] [address] Patient Name: LIZ SHELBY MRN: [id number] date: 1965 Sex: M Assigned Patient Location: LAB Current Patient Location: Accession/Order Number: [id number] Exam Date: 11/17/2023 09:43 Report Date: 11/18/2023 09:41 At the request of: NANCY VERDIN Procedure: XR hip LT 2V w/ pelvis PROCEDURE: XR hip LT 2V w/ pelvis HISTORY: Herniated Lumbar Disc Without Myelopathy M51.26 ; chronic pain COMPARISON: None. FINDINGS: BONES:No fracture, acute abnormality, or significant arthropathy. Slight narrowing of the superior aspect of the left hip joint space. SOFT TISSUES:No visible soft tissue swelling. EFFUSION:None visible. OTHER: Negative. XR/XR hip LT 2V w/ pelvis IMPRESSION: 1. Slight narrowing of the left hip joint space compared to the right suggesting early degenerative changes. Electronically authenticated by: SOLO SAVAGE Date: 11/18/2023 09:41
--- NOTE | 2023-11-17 09:34 | XR_ITS ---
The [place] [id number] Patient Name: LIZ SHELBY MRN: [id number] date: 1965 Sex: M Assigned Patient Location: LAB Current Patient Location: LAB Accession/Order Number: [id number] Exam Date: 11/17/2023 09:43 Report Date: 11/17/2023 13:05 At the request of: NANCY VERDIN Procedure: XR lumbar spine 2-3V EXAM: XR lumbar spine 2-3V HISTORY: Herniated Lumbar Disc, Cervical Radiculopathy COMPARISON: None. TECHNIQUE: 2 views Findings/impression: Satisfactory alignment. Mild anterior wedging deformity of T11 and T12 vertebral bodies. Multilevel endplate degenerative changes, disc disease, anterior spurring and facet arthropathy of the thoracolumbar spine, most prominent from L3 to S1. No acute fracture or significant subluxation. Nonobstructive bowel gas pattern. Electronically authenticated by: LIZ CHASE Date: 11/17/2023 13:05
--- NOTE | 2023-11-17 09:34 | XR_ITS ---
The [address] [address] Patient Name: LIZ SHELBY MRN: [id number] date: 1965 Sex: M Assigned Patient Location: LAB Current Patient Location: LAB Accession/Order Number: [id number] Exam Date: 11/17/2023 09:43 Report Date: 11/18/2023 09:45 At the request of: NANCY VERDIN Procedure: XR cervical spine 5V EXAMINATION: XR cervical spine 5V HISTORY: Herniated Lumbar Disc, Cervical Radiculopathy COMPARISON: No relevant comparison available. FINDINGS: BONES: Straightening of normal lordotic curvature. No fracture, spondylolisthesis, or significant facet arthropathy. DISC SPACES: Mild narrowing C6-C7. PARASPINOUS: Negative. No paraspinous abnormality is seen. OTHER: Negative. XR/XR cervical spine 5V IMPRESSION: 1. No appreciable acute abnormality. 2. Mild degenerative changes. Electronically authenticated by: SOLO SAVAGE Date: 11/18/2023 09:45
[2023-11-17 10:42] LABS: Free T3 2.35 pg/mL (2.18-3.98); Thyroid Stimulating Hormone 4.891 uIU/mL (0.358-3.740)
== END 2023-11-17 09:15 | disposition home or self-care (01) ==
LOC: LAB 09:17
PROVIDERS: PCP Family Medicine; Visit Provider Family Medicine
DX: E03.9 Hypothyroidism, unspecified (principal); M51.26 Other intervertebral disc displacement, lumbar region; M54.12 Radiculopathy, cervical region
CPT/HCPCS: 72050; 72072; 72100; 73502; 84436; 84443; 84481

== ENCOUNTER 2023-12-22 11:01 | Day surgery (SDC) | payer BC, SELFPAY ==
--- NOTE | 2023-12-22 11:08 | FL_ITS ---
The [address] [address] Patient Name: LIZ SHELBY MRN: [id number] date: 1965 Sex: M Assigned Patient Location: [place] Current Patient Location: [place] Accession/Order Number: [id number] Exam Date: 12/22/2023 11:25 Report Date: 12/22/2023 12:53 At the request of: NANCY VERDIN Procedure: FL hip inj LT EXAMINATION: FL hip inj LT, FL guided needle placement HISTORY: Left Hip Pain COMPARISON: No relevant comparison available. TECHNIQUE: An arthrogram was performed under fluoroscopic guidance using non-ionic contrast material in the usual sterile manner after obtaining informed consent. Standard level fluoroscopic mode of operation utilized. FINDINGS: JOINT: Left hip NEEDLE: 25 gauge, 3.5 spinal needle. MEDICATION: 2 mL buffered 1% lidocaine for subcutaneous anesthesia. 2 mL Omnipaque-300 iodinated contrast to visualize the joint space. 40 mg Kenalog, 2 mL 0.5% bupivacaine, and 3 mL Omnipaque 300 injected into the joint space. TECHNIQUE: Anterior approach with prior localization of the femoral artery. A single stick was successful in gaining access to the joint space. CLINICAL: Improvement of joint pain post injection (preinjection 2/10; postinjection 1/10). COMPLICATIONS: None. OTHER: Negative. FL/FL hip inj LT IMPRESSION: 1. Technically successful left hip injection with slight reduction in pain. Electronically authenticated by: SOLO SAVAGE Date: 12/22/2023 12:53
--- NOTE | 2023-12-22 11:08 | FL_ITS ---
The [address] [address] Patient Name: LIZ SHELBY MRN: [id number] date: 1965 Sex: M Assigned Patient Location: [place] Current Patient Location: [place] Accession/Order Number: [id number] Exam Date: 12/22/2023 11:25 Report Date: 12/22/2023 12:53 At the request of: NANCY VERDIN Procedure: FL guided needle placement EXAMINATION: FL hip inj LT, FL guided needle placement HISTORY: Left Hip Pain COMPARISON: No relevant comparison available. TECHNIQUE: An arthrogram was performed under fluoroscopic guidance using non-ionic contrast material in the usual sterile manner after obtaining informed consent. Standard level fluoroscopic mode of operation utilized. FINDINGS: JOINT: Left hip NEEDLE: 25 gauge, 3.5 spinal needle. MEDICATION: 2 mL buffered 1% lidocaine for subcutaneous anesthesia. 2 mL Omnipaque-300 iodinated contrast to visualize the joint space. 40 mg Kenalog, 2 mL 0.5% bupivacaine, and 3 mL Omnipaque 300 injected into the joint space. TECHNIQUE: Anterior approach with prior localization of the femoral artery. A single stick was successful in gaining access to the joint space. CLINICAL: Improvement of joint pain post injection (preinjection 2/10; postinjection 1/10). COMPLICATIONS: None. OTHER: Negative. FL/FL guided needle placement IMPRESSION: 1. Technically successful left hip injection with slight reduction in pain. Electronically authenticated by: SOLO SAVAGE Date: 12/22/2023 12:53
[2023-12-22] MEDS: TRIAMCINOLONE ACETONIDE 40 MG/ML VIAL INJ (12:00)
[2023-12-22] MEDS: BUPIVACAINE HCL 0.5% PF 50 MG/10 ML VIAL 2 ML INJ (12:00)
--- NOTE | 2023-12-22 13:16 | SUR.PREOP ---
12/14/23 Pt instructed on procedure, date, time, and prep. Pt made aware to hold his ASA x 5 days prior to procedure.
[2023-12-22] MEDS: LIDOCAINE HCL 10 ML, SODIUM BICARBONATE 1 MEQ INJ (13:36)
== END 2023-12-22 12:25 | disposition home or self-care (01) ==
LOC: FL 11:01
PROVIDERS: Radiology Diagnostic Radiology; PCP Family Medicine; Visit Provider Family Medicine
DX: M25.552 Pain in left hip (principal)
CPT/HCPCS: 20610; 77002; Q9967

== ENCOUNTER 2024-01-01 08:35 | Outpatient (OUT) | payer BC, SELFPAY ==
--- NOTE | 2024-01-01 08:42 | XR_ITS ---
The [address] [address] Patient Name: LIZ SHELBY MRN: [id number] date: 1965 Sex: M Assigned Patient Location: RAD Current Patient Location: [facility] Accession/Order Number: [id number] Exam Date: 01/01/2024 08:52 Report Date: 01/01/2024 09:05 At the request of: NANCY VERDIN Procedure: XR foreign body eye EXAMINATION: XR foreign body eye HISTORY: Foreign Body Eye COMPARISON: No relevant comparison available. FINDINGS: ORBITS: Negative for a metallic foreign body. OTHER: Multiple metallic dental implants. XR/XR foreign body eye IMPRESSION: 1. No metallic foreign body within the orbits. Electronically authenticated by: SOLO SAVAGE Date: 01/01/2024 09:05
--- NOTE | 2024-01-01 08:42 | MR_ITS ---
The [place] [id number] Patient Name: LIZ SHELBY MRN: [id number] date: 1965 Sex: M Assigned Patient Location: [facility] Current Patient Location: [facility] Accession/Order Number: [id number] Exam Date: 01/01/2024 09:00 Report Date: 01/01/2024 12:35 At the request of: NANCY VERDIN Procedure: MR lumbar spine wo/w con MR lumbar spine wo/w con, 01/01/2024 9:00 AM EDT INDICATION: Intervertebral Disc Displacement Lumbar M51.26 COMPARISON: There is no appropriate prior study for comparison. TECHNIQUE: Multiplanar, multisequential MRI images of lumbar spine were obtained without and with contrast. FINDINGS: There is lumbarization of S1. For dictation purposes, the lowest complete disc space in the lumbar spine considered as S1-S2. Right renal lesion with T2 prolongation not fully characterized by this study and statistically may suggest simple renal cyst. There is normal physiologic lumbar lordosis. The vertebral height is preserved. The conus medullaris is at the level of L1. No signal abnormality within the visualized spinal cord is noted. At the level of L1-L2, there are disc bulge with no neuroforaminal narrowing and no canal stenosis. At the level of L2-L3, there are disc bulge with mild bilateral neuroforaminal narrowing and moderate canal stenosis. At the level of L3-4, there are disc bulge with severe bilateral neuroforaminal narrowing and moderate canal stenosis. At the level of L4-5, there are disc bulge with moderate right and severe left neuroforaminal narrowing and mild canal stenosis. At the level of L5-S1, there are disc bulge with severe bilateral neuroforaminal narrowing and mild canal stenosis. The left S1 nerve root is in close contact with the disc bulge in the lateral recesses. 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 The paraspinal muscles are unremarkable. No abnormal enhancing lesion is noted. MR/MR lumbar spine wo/w con IMPRESSION: Moderate degenerative changes of lumbar spine in particular at L3-L4 and L5-S1. Electronically authenticated by: CUATE COREAS Date: 01/01/2024 12:35
--- OUTSIDE RECORDS SUMMARY | 2024-01-01 08:52 | XMS_ITS | CCD ---
Author Organization [facility] Care Team Providers Care Audiovisual Production Specialist Name Role Phone Nancy Fernandez Primary Care Physician DR NANCY FERNANDEZ Primary Care Unavailable GIOVANA, DR YOVANY Kwan Consulting Unavailable COOK, DR YOVANY Kwan Admitting Unavailable COOK, DR YOVANY Kwan Attending Unavailable JANIE, DR MANSOOR Porras Consulting Unavailable VELVET, DR CRUZ Primary Care Unavailable VELVET, DR CRUZ Admitting Unavailable VELVET, DR CRUZ Attending Unavailable VELVET, DR CRUZ Consulting Unavailable VELVET, DR CRUZ Primary Care Unavailable GIOVANA, DR YOVANY Kwan Admitting Unavailable GIOVANA, DR YOVANY Kwan Attending Unavailable COOK, DR YOVANY Kwan Consulting Unavailable JANIE, DR MANSOOR Porras Consulting Unavailable VELVET, DR CRUZ Primary Care Unavailable GIOVANA, DR YOVANY Kwan Admitting Unavailable GIOVANA, DR YOVANY Kwan Attending Unavailable GIOVANA, DR YOVANY Kwan Consulting Unavailable JANIE, DR MANSOOR Porras Consulting Unavailable VELVET, DR CRUZ Admitting Unavailable VELVET, DR CRUZ Attending Unavailable VELVET, DR CRUZ Consulting Unavailable VELVET, DR CRUZ Primary Care Unavailable ZITIFFANY, DR SOLO Oliver Consulting Unavailable MARILU MURGUIA [...] AKHTAR Attending Unavailable Yovany AKHTAR Attending Unavailable MICHAEL KIM Attending Unavailable NANCY FERNANDEZ Referring Unavailable BALTA OTTO Attending Unavailable NANCY FERNANDEZ Referring Unavailable MICHAEL KIM Attending Unavailable NANCY FERNANDEZ Referring Unavailable Allergies Allergy Classification Reported Allergen(s) Allergy Type Date of Onset Reaction(s) Facility (6 sources) Acetaminophen / HYDROcodone; Translations: [acetaminophen-hyd rocodone] Drug Allergy Hyperactive behavior (finding) [facility] Medications Current Medications Medication Drug [...] Daily, # 30 cap(s), Refills(s) 2, Pharmacy: [facility] #[id number], 188, cm, 06/10/22 9:57:00 EDT, Height/Length Dosing, [...] 02-19-2019 Episodic Other aftercare (1 source) 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 inspector (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) drug therapy; Translations: [OTH TRAVEL REGISTERED NURSE NICU CURRENT DRUG THERAPY] Onset: 05-31-20 Episodic Other aftercare (1 source) snf (current) use of aspirin; Translations: [SENIOR CARE CURRENT USE OF ASPIRIN] Onset: 05-31-20 Episodic [...] object(s), not elsewhere classified, initial encounter; Translations: [CNTC OTH SHRP OB NOT ELSW CLASS INI] Onset: 10-01-2021 Episodic Immunizations and screening for infectious disease (1 source) Encounter for immunization; Translations: [ENCOUNTER FOR IMMUNIZATION] Onset: 10-01-2021 Episodic Open wounds of extremities (4 sources) Laceration without foreign body of left wrist, initial encounter; Translations: [LACERATION W/O FB LT WRIST INITIAL] Onset: 09-29-2021 Episodic Results Test Name Value Interpretation Reference Range Facility Screenson 06-07-2023 Screens [id number]# 1.00CD:127 [facility] Ambulatory Visit Summaryon 1 Ambulatory Visit Summary LIZ SHELBY :1965 Visit Date:06/06/2023 Ambulatory Visit Instructions Your Diagnosis BPH (benign prostatic hyperplasia) Kidney stone Tests Performed Urnls Dip Stick Auto w/o Microscopy POC 92815 XR Abdomen 1 View -- Results Pending [...] Yovany AKHTAR MD Where: [facility] Patient Educationon 06-06-20 Patient Education Nephrology Dietary [...] Spinach (cooked), rhubarb, beets, sweet potatoes, and Armenian chard. ? Peanuts. ? Potato chips, citizen of [place] fries, and baked potatoes with skin on. ? Nuts and nut products. ? Chocolate. ? If you regularly take a diuretic medicine, make sure to eat at least 1 or 2 servings of fruits or vegetables that are high in potassium each day. These include: ? Avocado. ? Banana. ? Kay, prune, carrot, or tomato juice. ? Baked [...] fish oil, or vitamin B6. ? Take zpmc-kwc-djccwne and prescription medicines only as told by your health care provider. These include supplements. What foods should I limit? Limit your in (more content not included)... Normal [facility] Urology Office/Clinic Noteon 06-06-2023 Urology Office/Clinic [...] year follow-up Follow-up With When Contact Information Yovany AKHTAR MD, URL In [address] [address]- Additional Instructions: w/KUB Patient Education Dietary Guidelines to Help Prevent Kidney Stones I, Marua Teixeira, personally scribed for Dr. Akhtar on 06/06/2023 09:27:44. . Documentation recorded by the scribe, Maura Teixeira, accurately reflects the services(s) I performed and decisions made by me. Authenticated by Dr. Akhtar on 06/06/2023 09:31:33. Portions of this record may have been created with voice recognition artificial intelligence software, specifically [employer] and or [employer]. Substitutions may have occurred due to the inherent limitations of voice recognition and artificial intelligence software. Problem List/Past Medical History Ongoing BMI 40.0-44.9, adult BPH (benign prostatic hyperplasia) Chronic anticoagulation Dermatofibroma of left upper arm Diabetes mellitus type 2, noninsulin dependent Elevated PSA Hx of retirement use of blood thinners Kidney stone Nocturia Osteoarthritis Historical GERD (gastroesophageal reflux disease) Neoplasm of uncertain behavior of skin Thrombophlebitis of lower extremities Procedure/Surgical History ESWL - Extracorporeal shockwave lithotripsy for renal calculus (05/26/2022), ESWL - Extracorporeal shockwave lithotripsy for renal calculus (08/13/2020), Closure of anal fistula, Dental surgical procedure, Gallbladder, (more content not included)... Normal [facility] Comment on above: Result Comment: Elec tronically Signed By: Yovany AKHTAR MD\.br\Date and Time Signed: 06/06/23 09:32 EDT\.br\Electronically Co-Signed By: Maura Teixeira\.br\Date and Time Co-Signed: 06/06/23 09:28 EDT RAD - MISCon 05-31-2023 RAD - MISC [id number]. 00CD:127 Normal [facility] RAD - MISCon 06-20-2022 RAD - MISC [id number] .00CD:127 Normal [facility] [id number] .00CD:127 Normal [facility] Patient Educationon 06-17-20 Patient Education Urology [...] Rhubarb. ? Beets. ? Potato chips and citizen of [place] fries. ? Nuts. ? If you regularly take a diuretic medicine, make sure to eat at least 1?2 fruits or vegetables high in potassium each day. These include: ? Avocado. ? Banana. ? Kay, prune, carrot, or tomato juice. ? Baked [...] Anjana cruz (more content not included)... Normal [facility] Urology Office/Clinic Noteon 06-17-2022 Urology Office/Clinic [...] AKHTAR MD, URL Within 6 months [address] [place], [place] [id number]- Additional Instructions: w/ KUB Patient Education Dietary [...] 2, noninsulin dependent Elevated PSA Hx of retirement use of blood thinners Kidney stone Nocturia Osteoarthritis Historical GERD (gastroesophageal reflux disease) Neoplasm of uncertain behavior of skin Thrombophlebitis of lower extremities Procedure/Surgical History ESWL - Extracorporeal shockwave lithotripsy for renal calculus (05/26/2022), ESWL - Extracorporeal shockwave lithotripsy for renal calculus (08/13/2020), Closure of anal fistula, Dental surgical procedure, Gallbladder, History of tonsillectomy, Kidn (more content not included)... Normal [facility] Comment on above: Result Comment: Elec tronically Signed By: Yovany AKHTAR MD\.br\Date and Time Signed: 06/17/22 09:37 EDT\.br\Electronically Co-Signed By: Lucero Robles.br\Date and Time Co-Signed: 06/17/22 09:35 EDT XR [...] by: MANSOOR LIMA Date: 2022-06-16 18:56 Normal [facility] [place] Patient Educationon 06-10-20 Patient Education Urology Dietary [...] Rhubarb. ? Beets. ? Potato chips and citizen of [place] fries. ? Nuts. ? If you regularly take a diuretic medicine, make sure to eat at least 1?2 fruits or vegetables high in potassium each day. These include: ? Avocado. ? Banana. ? Kay, prune, carrot, or tomato juice. ? Baked [...] Salad dr (more content not included)... Normal [facility]2022 [facility] [id number] .00CD:127 Normal [facility] Urology Office/Clinic Noteon 06-10-2022 Urology Office/Clinic Note Chief Complaint Follow up HPI Staff Pt is here for PO ESWL. Pt went to [place] [facility] 05/29/22 for right flank pain. CT [...] ESWL 08/13/2020 - CT done 05/29/22 at [facility] showed 2mm right distal ureteral calculus. Additional 6mm right UPJ calculus - S/P RT Lithotripsy 05/26/22 - KUB done 06/09/22 at [facility] stated there is no visible renal [...] When Contact Information GIOVANA CANTOR, Yovany Kwan, ESHA Within [address] [place] [address]- Additional Instructions: KUB Patient Education Dietary Guidelines to Help Prevent Kidney Stones I, Lucero Robles, personally scribed for Dr. Akhtar on 06/10/2022 10:24:14. . Documentation recorded by the scribe, Lucero Robles, accurately reflects the services(s) I performed and decisions made by me. Authenticated by Dr. Akhtar on 06/10/2022 10:29:59. 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 Normal [facility] Comment on above: Result Comment: Elec [...] MANSOOR LIMA Date: 2022-06-09 17:41 Normal [facility] CBC AUTO DIFFon 05-29-2022 BASO # 0.1 103/ul Normal 0.0-0.1 [facility] [place] Comment on above: Performed By: #### C BC ####[facility] [address] [place] [id number]. Wyatt Aldrich Basophils/100 WBC (Bld) 0.2 % Normal 0.2-2.0 [facility] Comment on above: Performed By: #### C BC ####[facility] [address] [place] [id number] Aldrich EO # 0.0 103/ul Normal 0.0-0.7 [facility] Comment on above: Performed By: #### C BC ####[facility] [address] [place] [id number]. Wyatt Aldrich Eosinophils/100 WBC (Bld) 0.2 % Critically low 0.9-7.0 [facility] Comment on above: Performed By: #### C BC ####[facility] [address] [place] [address]Dr. Wyatt Aldrich Erythrocyte distribution width (RBC) [Ratio] 12.3 % Normal 11.0-15.0 [facility] [place] Comment on above: Performed By: #### C BC ####[facility] [address] [place] [address]Dr. Jossielalo Valdemar Hematocrit (Bld) [Volume fraction] 45.9 % Normal 42.0-54.0 [facility] [place] Comment on above: Performed By: #### C BC ####[facility] [address] [place], [place] [address]Dr. Jossielalo Aldrich Hemoglobin (Bld) [Mass/Vol] 15.2 g/dL Normal 14.0-18.0 [facility] [place] Comment on above: Performed By: #### C BC ####[facility] Tg[address] [place], [place] [address]Dr. Jossielalo Valdemar IG # 0.09 10e3/ul Critically high 0.00-0.03 [facility] Comment on above: Performed By: #### C BC ####[facility] Ig[address]ys[address] [place], [place] [address]Dr. Jossielalo Aldrich IG % 0.4 % Normal 0.0-0.5 [facility] [place] Comment on above: Performed By: #### C BC ####[facility] [address] [place], [place] [address]Dr. Wyatt Aldrich LYMPH # 1.1 103/ul Critically low 1.2-3.8 The [facility] Comment on above: Performed By: #### C BC ####[facility] E[address] [place], [place] [address]Dr. Wyatt Aldrich Lymphocytes/100 WBC (Bld) 5.1 % Critically low 20.5-60.0 [facility] [place] Comment on above: Performed By: #### C BC ####[facility] Y[address] [place], [place] [address]Dr. Wyatt Aldrich MANUAL DIFF REQ NO Normal [facility] Comment on above: Performed By: #### C BC ####[facility] [address] [place] [address]DrCullen Aldrich MCH (RBC) [Entitic mass] 30.2 pg Normal 25.9-34.0 [facility] Comment on above: Performed By: #### C BC ####[facility] [address] [place] [address]DrCullen Aldrich MCHC (RBC) [Mass/Vol] 33.1 g/dL Normal 29.9-35.2 [facility] Comment on above: Performed By: #### C BC ####[facility] [address] [place] [address]DrCullen Aldrich MCV (RBC) [Entitic vol] 91.3 fL Normal 80.0-94.0 [facility] Comment on above: Performed By: #### C BC ####[facility] Depnok[address] [place], [place] [address]DrCullen Aldrich MONO # 1.4 103/ul Critically high 0.3-0.8 [facility] Comment on above: Performed By: #### C BC ####[facility] [address] [place], [place] [address]DrCullen Aldrich Monocytes/100 WBC (Bld) 6.7 % Normal 1.7-12.0 [facility] Comment on above: Performed By: #### C BC ####[facility] [address] [place], [place] [address]DrCullen Aldrich NEUT # 18.5 103/ul Critically high 1.4-6.5 [facility] Comment on above: Performed By: #### C BC ####[facility] [address] [place], [place] [address]DrCullen Aldrich Neutrophils/100 WBC (Bld) 87.4 % Critically high 43.0-75.0 [facility] Comment on above: Performed By: #### C BC ####[facility] [address] [place], [place] [address]DrCullen Aldrich Platelet mean volume (Bld) [Entitic vol] 9.3 fL Critically low 9.5-13.5 [facility] Comment on above: Performed By: #### C BC ####[facility] [address] [place], [place] [address]Jp. Wyatt Aldrich PLT 303 103/ul Normal 150-450 [facility] Comment on above: Performed By: #### C BC ####[facility] [address] [place], [place] [address]Gd. Wyatt Aldrich RBC 5.03 106/ul Normal 4.70-6.10 [facility] Comment on above: Performed By: #### C BC ####[facility] [address] [place], [place] [address]Pn. Wyatt Aldrich WBC 21.2 103/ul Critically high 4.0-11.0 [facility] Comment on above: Performed By: #### C BC ####[facility] [address] [place], [place] [address]Fm. Wyatt Ald[address] CT ABD/PELVIS WO CONon 05-29 [...] by: BOO GUZMAN Date: 2022-05-29 17:32 Normal [facility] [place] ER URINE PROFILEon 2 Bilirubin Ql (U) Negative Normal NEGATIVE [facility] Comment on above: Performed By: #### U MICRO, ERUR #### [facility] [address] [address] [address] Wyatt Aldrich Clarity (U) CLEAR Normal CLEAR [facility] Comment on above: Performed By: #### U MICRO, ERUR #### [facility] [address] [address] [address] Wyatt Aldrich Color (U) LT. YELLOW Normal YELLOW [facility] Comment on above: Performed By: #### U MICRO, ERUR #### [facility] [address] [place] [address] Dr. Wyatt WINKLERD A micrscopic examination will be performed if indicated. Normal [facility] Comment on above: Performed By: #### U MICRO, ERUR #### [facility] [address] [address] [address] Wyatt Aldrich Glucose Ql (U) Negative Normal NEGATIVE [facility] Comment on above: Performed By: #### U MICRO, ERUR #### [facility] [address] [place] [address] Dr. Wyatt Aldrich Hemoglobin Ql (U) TRACE-INTACT Abnormal NEGATIVE [facility] Comment on above: Performed By: #### U MICRO, ERUR #### [facility] [address] [address] [address] Wyatt Aldrich Ketones Ql (U) Negative Normal NEGATIVE [facility] Comment on above: Performed By: #### U MICRO, ERUR #### [facility] [address] [address] [address] Wyatt Aldrich LEUKOCYTES Negative Normal NEGATIVE [facility] Comment on above: Performed By: #### U MICRO, ERUR #### [facility] [address] [place] [address] Dr. Wyatt Aldrich Nitrite Ql (U) Negative Normal NEGATIVE [facility] Comment on above: Performed By: #### U MICRO, ERUR #### [facility] [address] [address] [address] Wyatt Aldrich pH (U) 7.0 [pH] Normal 5-9 [facility] Comment on above: Performed By: #### U MICRO, ERUR #### [facility] [address] [address] [address] Wyatt Aldrich SPEC GRAVITY 1.020 Normal 1.005-<=1.025 [facility] Comment on above: Performed By: #### U MICRO, ERUR #### [facility] [address] [address] [address] Wyatt Aldrich UA PROTEIN Negative Normal NEGATIVE/ TRACE [facility] Comment on above: Performed By: #### U MICRO, ERUR #### [facility] [address] [place] [address] Dr. Wyatt Aldrich UR MICRO IND INDICATED Normal [facility] [place] Comment on above: Performed By: #### U MICRO, ERUR #### [facility] [address] [address] [address] Wyatt Aldrich Urobilinogen Qn (U) 0.2 {Sharon'U}/dL Normal 0.2 - 1. 0 [facility] [place] Comment on above: Performed By: #### U MICRO, ERUR #### [facility] [address] [place] [address] Dr. Wyatt Aldrich PROF 14(COMP METB)on 022 Albumin [Mass/Vol] 3.9 g/dL Normal 3.4-5.0 [facility] Comment on above: Performed By: #### C MP #### [facility] [address] [place] [address] Dr. Wyatt Aldrich Albumin/Globulin [Mass ratio] 1.1 {ratio} Normal [facility] Comment on above: Performed By: #### C MP #### [facility] [address] [place] [address] Dr. Wyatt Aldrich ALP [Catalytic activity/Vol] 70 U/L Normal 46-116 [facility] [place] Comment on above: Performed By: #### C MP #### [facility] [address] [address] [address] Wyatt Aldrich ALT [Catalytic activity/Vol] 38 U/L Normal 16-63 [facility] Comment on above: Performed By: #### C MP #### [facility] [address] [address] [address] Wyatt Aldrich Anion gap [Moles/Vol] 12.6 mmol/L Normal Th [facility] Comment on above: Performed By: #### C MP #### [facility] [address] [address] [address] Wyatt Aldrich AST [Catalytic activity/Vol] 20 U/L Normal 15-37 [facility] [place] Comment on above: Performed By: #### C MP #### [facility] [address] [place] [address] Dr. Wyatt Aldrich Bilirubin [Mass/Vol] 0.6 mg/dL Normal 0.2-1.0 [facility] [place] Comment on above: Performed By: #### C MP #### [facility] [address] [place] [address] Dr. Wyatt Aldrich Calcium [Mass/Vol] 8.7 mg/dL Normal 8.5-10.1 [facility] Comment on above: Performed By: #### C MP #### [facility] [address] [place] [address] Dr. Wyatt Aldrich Chloride [Moles/Vol] 95 mmol/L Critically low 98-107 [facility] Comment on above: Performed By: #### C MP #### [facility] [address] [place] [address] Dr. Wyatt Aldrich CO2 [Moles/Vol] 29.9 mmol/L Normal 21.0-32.0 [facility] Comment on above: Performed By: #### C MP #### [facility] [address] [place] [address] Dr. Wyatt Aldrich Creatinine [Mass/Vol] 1.04 mg/dL Normal 0.70-1.30 [facility] [place] Comment on above: Performed By: #### C MP #### [facility] [address] [place] [address] Dr. Wyatt Aldrich EGFR-AF STATELESS >60 Normal >=60 [facility] Comment on above: Performed By: #### C MP #### [facility] [address] [address] [address] Wyatt Aldrich EGFR-NON AF STATELESS >60 Normal >=60 [facility] [place] Comment on above: Performed By: #### C MP #### [facility] [address] [address] [address] Wyatt Aldrich Globulin (S) [Mass/Vol] 3.4 g/dL Normal [facility] [place] Comment on above: Performed By: #### C MP #### [facility] [address] [address] [address] Wyatt Aldrich Glucose [Mass/Vol] 148 mg/dL Critically high 74-106 T [facility] Comment on above: Performed By: #### C MP #### [facility] [address] [place] [address] Dr. Wyatt Aldrich Potassium [Moles/Vol] 4.5 mmol/L Normal 3.5-5.1 [facility] [place] Comment on above: Performed By: #### C MP #### [facility] [address] [place] [address] Dr. Wyatt Aldrich Protein [Mass/Vol] 7.3 g/dL Normal 6.4-8.2 [facility] Comment on above: Performed By: #### C MP #### [facility] [address] [address] [address] Wyatt Aldrich Sodium [Moles/Vol] 133 mmol/L Critically low 136-145 Th [facility] Comment on above: Performed By: #### C MP #### [facility] [address] [address] [address] Wyatt Aldrich Urea nitrogen [Mass/Vol] 15.0 mg/dL Normal 7.0-18.0 [facility] [place] Comment on above: Performed By: #### C MP #### [facility] [address] [address] [address] Wyatt Aldrich Urea nitrogen/Creatinine [Mass ratio] 14.4 mg/mg Normal [facility] Comment on above: Performed By: #### C MP #### [facility] [address] [address] [address] Wyatt Aldrich URINE MICROSCOPIC ONLYon BACTERIA NONE SEEN Normal NONE SEEN [facility] Comment on above: Performed By: #### U MICRO, ERUR #### [facility] [address] [place] [address] Dr. Wyatt Aldrich Bacteria identified Cx Nom (U) NOT INDICATED Normal [facility] Comment on above: Performed By: #### U MICRO, ERUR #### [facility] [address] [place] [address] Dr. Wyatt Aldrich CAST NONE SEEN Normal NONE SEEN [facility] Comment on above: Performed By: #### U MICRO, ERUR #### [facility] [address] [place] [address] Dr. Wyatt Aldrich Crystals LM Nom (Urine sed) NONE SEEN Normal NONE SEEN [facility] Comment on above: Performed By: #### U MICRO, ERUR #### [facility] [address] [place] [address] Dr. Wyatt Aldrich Epithelial cells LM Ql (Urine sed) NONE SEEN Normal NONE SEEN /RARE [facility] Comment on above: Performed By: #### U MICRO, ERUR #### [facility] [address] [place] [address] Dr. Wyatt Aldrich MUCOUS NONE SEEN Normal NONE SEEN [facility] Comment on above: Performed By: #### U MICRO, ERUR #### [facility] [address] [place] [address] Dr. Wyatt Aldrich RBC 2-5 Abnormal 0-2 [facility] Comment on above: Performed By: #### U MICRO, ERUR #### [facility] [address] [place] [address] Dr. Wyatt Aldrich WBC NONE SEEN Normal NONE SEEN [facility] [place] Comment on above: Performed By: #### U MICRO, ERUR #### [facility] [address] [place] [address] Dr. Wyatt Aldrich T4 LABCORPon 01-29-2022 T4 [Mass/Vol] 9.1 ug/dL Normal 4.5-12.0 The [facility] Comment on above: Performed By: #### T 4LC ####[facility] [address] [place] [address]Dr. Wyatt Aldrich CBC AUTO DIFFon 01-28-2022 BASO # 0.1 103/ul Normal 0.0-0.1 [facility] Comment on above: Performed By: #### C BC ####[facility] [address] [place], [place] [address]Dr. Wyatt Valdemar Basophils/100 WBC (Bld) 0.6 % Normal 0.2-2.0 The [facility] Comment on above: Performed By: #### C BC ####[facility] [address] [place], [place] [address]Dr. Wyatt Aldrich EO # 0.2 103/ul Normal 0.0-0.7 The [facility] Comment on above: Performed By: #### C BC ####[facility] [address] [place], [place] [address]Dr. Wyatt Aldrich Eosinophils/100 WBC (Bld) 2.4 % Normal 0.9-7.0 The [facility] Comment on above: Performed By: #### C BC ####[facility] [address] [place], [place] [address]Dr. Wyatt Aldrich Erythrocyte distribution width (RBC) [Ratio] 12.5 % Normal 11.0-15.0 The [facility] Comment on above: Performed By: #### C BC ####[facility] Kw[address] [place], [place] [address]Dr. Wyatt Aldrich Hematocrit (Bld) [Volume fraction] 43.5 % Normal 42.0-54.0 The [facility] Comment on above: Performed By: #### C BC ####[facility] [address] [place], [place] [address]Dr. Wyatt Aldrich Hemoglobin (Bld) [Mass/Vol] 14.4 g/dL Normal 14.0-18.0 The [facility] Comment on above: Performed By: #### C BC ####[facility] [address] [place] [id number]. Wyatt Aldrich IG # 0.03 10e3/ul Normal 0.00-0.03 The [facility] Comment on above: Performed By: #### C BC ####[facility] [address] [place] [id number]. Wyatt Valdemar IG % 0.4 % Normal 0.0-0.5 The [facility] Comment on above: Performed By: #### C BC ####[facility] [address] [place] [address]Dr. Wyatt Valdemar LYMPH # 2.1 103/ul Normal 1.2-3.8 The [facility] Comment on above: Performed By: #### C BC ####[facility] [address] [place] [address]Dr. Wyatt Aldrich Lymphocytes/100 WBC (Bld) 24.8 % Normal 20.5-60.0 The [facility] Comment on above: Performed By: #### C BC ####[facility] F[address]ws[address] [place] [address]Dr. Jossielalo Aldrich MANUAL DIFF REQ NO Normal [facility] Comment on above: Performed By: #### C BC ####[facility] [address] [place] [address]Dr. Wyatt Valdemar MCH (RBC) [Entitic mass] 30.6 pg Normal 25.9-34.0 The [facility] Comment on above: Performed By: #### C BC ####[facility] [address] [place] [address]Dr. Wyatt Valdemar MCHC (RBC) [Mass/Vol] 33.1 g/dL Normal 29.9-35.2 The [facility] Comment on above: Performed By: #### C BC ####[facility] [address] [place] [address]Dr. Jossielalo Aldrich MCV (RBC) [Entitic vol] 92.6 fL Normal 80.0-94.0 The [facility] Comment on above: Performed By: #### C BC ####[facility] [address] [place] [id number]. Wyatt Aldrich MONO # 0.6 103/ul Normal 0.3-0.8 The [facility] Comment on above: Performed By: #### C BC ####[facility] [address] [place] [id number]. Wyatt Aldrich Monocytes/100 WBC (Bld) 7.7 % Normal 1.7-12.0 The [facility] Comment on above: Performed By: #### C BC ####[facility] [address] [place] [id number]. Wyatt Aldrich NEUT # 5.3 103/ul Normal 1.4-6.5 The [facility] Comment on above: Performed By: #### C BC ####[facility] [address] [place] [id number]. Wyatt Aldrich Neutrophils/100 WBC (Bld) 64.1 % Normal 43.0-75.0 The [facility] Comment on above: Performed By: #### C BC ####[facility] [address] [place] [id number]. Wyatt Aldrich Platelet mean volume (Bld) [Entitic vol] 9.4 fL Critically low 9.5-13.5 The [facility] Comment on above: Performed By: #### C BC ####[facility] [address] [place] [id number]. Wyatt Aldrich PLT 280 103/ul Normal 150-450 The [facility] Comment on above: Performed By: #### C BC ####[facility] [address] [place] [address]Dr. Wyatt Aldrich RBC 4.70 106/ul Normal 4.70-6.10 The [facility] Comment on above: Performed By: #### C BC ####[facility] [address]wd[address] [place] [phone]. Wyatt Aldrich WBC 8.3 103/ul Normal 4.0-11.0 The [facility] Comment on above: Performed By: #### C BC ####[facility] [address] [place], [place] [address]DrCullen Aldrich FREE T3on 01-28-2022 FREE T3 2.70 pg/mlL Normal 2.18-3.98 [facility] Comment on above: Performed By: #### L IPID, CMP, TSH, FT3 ####[facility] [address] [place], [place] [address]UtCullen Aldrich GLYCOHEMOGLOBIN A1Con 2021 ADA RECOMMENDATION SEE BELOW Normal [facility] Comment on above: Result Comment: ADA RECOMMENDED LIMIT 4.0 - 6.0 ADA THERAPEUTIC TARGET < 7.0 ACTION SUGGESTED > 7.0 Performed By: #### A 1C #### [facility] [address] [place] [address] [address] Wyatt Aldrich Glucose [Mass/Vol] 143 mg/dL Normal [facility] Comment on above: Performed By: #### A 1C #### [facility] [address] [address] [address] Wyatt Aldrich HbA1c (Bld) [Mass fraction] 6.6 % Critically high 4.5-6.2 [facility] Comment on above: Performed By: #### A 1C #### [facility] [address] [address] [address] Wyatt Aldrich LIPID PROFILEon 01-28-2022 CHOL-HDL RATIO NORM SEE BELOW Normal [facility] Comment on above: Result Comment: 3.3 - 4.4 LOW RISK 4.4 - 7.1 AVERAGE RISK 7.1 - 11.0 MODERATE RISK >11.0 HIGH RISK Performed By: #### L IPID, CMP, TSH, FT3 ####[facility] [address] [place] [phone]. Wyatt Aldrich Cholesterol [Mass/Vol] 176 mg/dL Normal <=200 [facility] Comment on above: Performed By: #### L IPID, CMP, TSH, FT3 ####[facility] [address] [place] [phone]. Wyatt Aldrich Cholesterol in HDL [Mass/Vol] 35 mg/dL Critically low 40-60 [facility] Comment on above: Performed By: #### L IPID, CMP, TSH, FT3 ####[facility] [address] [place] [phone]. Wyatt Aldrich Cholesterol in LDL [Mass/Vol] 94.4 mg/dL Normal The [facility] Comment on above: Performed By: #### L IPID, CMP, TSH, FT3 ####[facility] [address] [place] [phone]. Wyatt Aldrich Cholesterol.total/Cho lesterol in HDL [Mass ratio] 5.0 {ratio} Normal The [facility] Comment on above: Performed By: #### L IPID, CMP, TSH, FT3 ####[facility] T[address] [place] [phone]. Wyatt Aldrich HDL NORMAL > or = 60 mg/dl - LO W CARDIOVASCULAR RISK <40 mg/dl - HIGH CARDIOVASCULAR RISK Normal [facility] Comment on above: Performed By: #### L IPID, CMP, TSH, FT3 ####[facility] [address] [place] [address]Dr. Wyatt Aldrich LDL CALC NORMAL SEE BELOW Normal The [facility] Comment on above: Result Comment: <100 mg/dl OPTIMAL 100 - 129 mg/dl NEAR OR ABOVE OPTIMAL 130 - 159 mg/dl BORDERLINE HIGH 160 - 189 mg/dl HIGH >190 mg/dl VERY HIGH Performed By: #### L IPID, CMP, TSH, FT3 ####[facility] [address] [place] [phone]. Wyatt Aldrich Triglyceride [Mass/Vol] 233 mg/dL Critically high <=150 The [facility] Comment on above: Performed By: #### L IPID, CMP, TSH, FT3 ####[facility] Yub[address]pznx[address] [place] [phone]. Wyatt Aldrich VLDL CALC 46.6 mg/dL Normal The [facility] Comment on above: Performed By: #### L IPID, CMP, TSH, FT3 ####[facility] [address] [place] [phone]. Wyatt lAdrich OCC BLD IMMUNO SCREENon 05-2 OCCULT BLOOD Negative Normal NEGATIVE The [facility] Comment on above: Performed By: #### O BSCRN #### [facility] [address] [address] [address] Wyatt Aldrich PROF 14(COMP METB)on 022 Albumin [Mass/Vol] 3.4 g/dL Normal 3.4-5.0 [facility] Comment on above: Performed By: #### L IPID, CMP, TSH, FT3 ####[facility] [address] [place] [address]Dr. Wyatt Aldrich Albumin/Globulin [Mass ratio] 1.0 {ratio} Normal [facility] Comment on above: Performed By: #### L IPID, CMP, TSH, FT3 ####[facility] [address] [place] [address]Dr. Wyatt Aldrich ALP [Catalytic activity/Vol] 65 U/L Normal 46-116 [facility] Comment on above: Performed By: #### L IPID, CMP, TSH, FT3 ####[facility] [address]ets[address] [place] [address]Dr. Wyatt Aldrich ALT [Catalytic activity/Vol] 45 U/L Normal 16-63 [facility] Comment on above: Performed By: #### L IPID, CMP, TSH, FT3 ####[facility] [address] [place] [address]Dr. Wyatt Aldrich Anion gap [Moles/Vol] 9.7 mmol/L Normal [facility] Comment on above: Performed By: #### L IPID, CMP, TSH, FT3 ####[facility] W[address]cxwfjgc[address] [place] [address]Dr. Wyatt Aldrich AST [Catalytic activity/Vol] 20 U/L Normal 15-37 [facility] Comment on above: Performed By: #### L IPID, CMP, TSH, FT3 ####[facility] [address] [place] [address]Dr. Wyatt Aldrich Bilirubin [Mass/Vol] 0.4 mg/dL Normal 0.2-1.0 [facility] Comment on above: Performed By: #### L IPID, CMP, TSH, FT3 ####[facility] [address]telff[address] [place] [address]Dr. Wyatt Aldrich Calcium [Mass/Vol] 8.5 mg/dL Normal 8.5-10.1 [facility] Comment on above: Performed By: #### L IPID, CMP, TSH, FT3 ####[facility] Qpiftttfgt[address] [place] [address]Dr. Wyatt Aldrich Chloride [Moles/Vol] 101 mmol/L Normal 98-107 The [facility] Comment on above: Performed By: #### L IPID, CMP, TSH, FT3 ####[facility] [address] [place] [address]Dr. Wyatt Aldrich CO2 [Moles/Vol] 33.3 mmol/L Critically high 21.0-32.0 [facility] Comment on above: Performed By: #### L IPID, CMP, TSH, FT3 ####[facility] Th[address]blt[address] [place] [address]Dr. Wyatt Aldrich Creatinine [Mass/Vol] 0.77 mg/dL Normal 0.70-1.30 [facility] Comment on above: Performed By: #### L IPID, CMP, TSH, FT3 ####[facility] Kw[address]jlzi[address] [place] [address]Dr. Wyatt Aldrich EGFR-AF STATELESS >60 Normal >=60 The [facility] Comment on above: Performed By: #### L IPID, CMP, TSH, FT3 ####[facility] [address]xs[address]rpww[address] [place] [address]Dr. Wyatt Aldrich EGFR-NON AF STATELESS >60 Normal >=60 [facility] Comment on above: Performed By: #### L IPID, CMP, TSH, FT3 ####[facility] Prq[address]oplaf[address] [place] [address]Dr. Wyatt Aldrich Globulin (S) [Mass/Vol] 3.3 g/dL Normal [facility] Comment on above: Performed By: #### L IPID, CMP, TSH, FT3 ####[facility] Kniwrbmpuj[address] [place] [address]Dr. Wyatt Aldrich Glucose [Mass/Vol] 137 mg/dL Critically high 74-106 [facility] Comment on above: Performed By: #### L IPID, CMP, TSH, FT3 ####[facility] Hj[address]xzacxd[address] [place] [address]Dr. Wyatt Aldrich Potassium [Moles/Vol] 4.0 mmol/L Normal 3.5-5.1 [facility] Comment on above: Performed By: #### L IPID, CMP, TSH, FT3 ####[facility] Zhtxnekqaj[address] [place] [address]Dr. Wyatt Aldrich Protein [Mass/Vol] 6.7 g/dL Normal 6.4-8.2 [facility] Comment on above: Performed By: #### L IPID, CMP, TSH, FT3 ####[facility] Opvdnmgbqj[address] [place] [address]Dr. Wyatt Aldrich Sodium [Moles/Vol] 140 mmol/L Normal 136-145 [facility] Comment on above: Performed By: #### L IPID, CMP, TSH, FT3 ####[facility] [address]ff[address]ux[address] [place] [address]Dr. Wyatt Aldrich Urea nitrogen [Mass/Vol] 13.0 mg/dL Normal 7.0-18.0 [facility] Comment on above: Performed By: #### L IPID, CMP, TSH, FT3 ####[facility] [address]wcw[address] [place] [address]Dr. Wyatt Aldrich Urea nitrogen/Creatinine [Mass ratio] 16.9 mg/mg Normal [facility] Comment on above: Performed By: #### L IPID, CMP, TSH, FT3 ####[facility] [address]uslgcy[address] [place] [address]Dr. Wyatt Aldrich TSHon 01-28-2022 TSH 5.562 uIU/mL Critically high 0.358-3.740 [facility] Comment on above: Performed By: #### L IPID, CMP, TSH, FT3 ####[facility] [address]ia[address]cf[address] [place] [address]Dr. Wyatt Aldrich TSH RANGE SEE BELOW Normal [facility] Comment on above: Result Comment: <0.3 4 UIU/ml HYPERTHYROID 0.34-5.60 UIU/ml EUTHYROID >5.60 UIU/ml HYPOTHYROID Performed By: #### L IPID, CMP, TSH, FT3 ####[facility] [address] [place], [place] [address]As. Wyatt Aldrich XR KUB 1 VIEWon 01-20-2022 XR [...] MANSOOR LIMA Date: 2022-01-20 14:12 Normal [facility] MRI LSPINE WO W CONon 2021 MRI LSPINE WO W CON EXAMINATION: MRI LSPINE WO W CON HISTORY: Prolapsed lumbar intervertebral [...] by: TANISHA CHIU Date: 2021-10-04 11:23 Normal [facility] XR LSPINE MIN 4 VIEWSon 09-05 XR [...] by: SOLO SAVAGE Date: 2021-09-27 11:31 Normal [facility] Vital Signs Date Time Vital Sign Value Performing Clinician Jessi chowdhury 06-06-2023 08:48-0400 Blood Pressure Location Yovany GIOVANA [facility] 06-06-2023 08:48-0400 Diastolic blood pressure 66 mm[Hg] Yovany AKHTAR [facility] 06-06-2023 08:48-0400 Heart rate 83 /min Yovany AKHTAR [facility] 06-06-2023 08:48-0400 Systolic blood pressure 142 mm[Hg] Yovany COOK [facility] 06-17-2022 09:14-0400 Blood Pressure Location Yovany COOK [facility] 06-17-2022 09:14-0400 Diastolic blood pressure 96 mm[Hg] Yovany COOK [facility] 06-17-2022 09:14-0400 Heart rate 67 /min Yovany COOK [facility] 06-17-2022 09:14-0400 Systolic blood pressure 159 mm[Hg] Yovany COOK [facility] 06-10-2022 09:54-0400 Blood Pressure Location Yovany COOK [facility] 06-10-2022 09:54-0400 Diastolic blood pressure 102 mm[Hg] Yovany COOK [facility] 06-10-2022 09:54-0400 Heart rate 68 /min Yovany COOK [facility] 06-10-2022 09:54-0400 Systolic blood pressure 166 mm[Hg] Yovany COOK [facility] 01-21-2022 08:44-0400 Blood Pressure Location Yovany COOK [facility] 01-21-2022 08:44-0400 Diastolic blood pressure 87 mm[Hg] [facility] COOK [facility] 01-21-2022 08:44-0400 Heart rate 72 /min Yovany GIOVANA [facility] 01-21-2022 08:44-0400 Systolic blood pressure 140 mm[Hg] Yovany GIOVANA [facility] Encounters Encounter Date Encounter Type Care Provider Facility Start: 06-11-2024 ambulatory Yovany AKHTAR Facility :[facility] [place] Start: 12-25-2023 End: 12-25-2023 ambulatory MICHAEL KIM Not Available Start: 12-21-2023 End: 12-21-2023 ambulatory BALTA OTTO Not Available Start: 12-19-2023 End: 12-19-2023 ambulatory MICHAEL KIM Not Available Start: 06-06-2023 End: 06-07-2023 ambulatory Yovany AKHTAR Facility:[facility] [place] Start: 06-06-2023 End: 06-06-2023 Patient encounter procedure Yovany AKHTAR [facility] Start: 06-17-2022 End: 06-18-2022 ambulatory Yovany AKHTAR Facility:[facility] [place] Start: 06-17-2022 End: 06-17-2022 Patient encounter procedure Yovany AKHTAR [facility] Start: 06-16-2022 End: 06-17-[address] NANCY FERNANDEZ Facility:[facility] Start: 06-10-2022 End: 06-11-2022 ambulatory Yovany AKHTAR Facility:[facility] [place] Start: 06-10-2022 End: 06-10-2022 Patient encounter procedure Yovany AKHTAR [facility] Start: 06-09-2022 End: 06-10-[address] NANCY FERNANDEZ Facility:[facility] Start: 05-29-2022 End: 05-29-[address] NANCY FERNANDEZ Facility:[facility] Start: 05-11-2022 End: 05-11-2022 Patient encounter procedure Yovany AKHTAR [facility] Start: 02-03-2022 Encounter for genera l adult medical examination without abnormal findings DR NANCY FERNANDEZ [facility] Start: 01-28-2022 End: 01-29-[address] NANCY FERNANDEZ Facility:[facility] Start: 01-28-2022 End: 01-29-2022 Encounter for general adult medical examination without abnormal findings DR NANCY FERNANDEZ Facility:[facility] Start: 01-21-2022 End: 01-21-2022 Patient encounter procedure Yovany AKHTAR [facility] Start: 01-20-2022 End: 01-21-[address] NANCY FERNANDEZ Facility:[facility] Start: 10-04-2021 End: 10-05-[address] NANCY FERNANDEZ Facility:[facility] Start: 09-29-2021 End: 09-29-2021 ambulatory MARILU MURGUIA Facility:[facility] Start: 09-27-2021 End: 09-28-[address] NANCY FERNANDEZ Facility:[facility] Procedures Date Procedure Procedure Detail Performing Clinician Start: 05-26-2022 Extracorporeal shock wave lithotripsy of calculus of kidney Yovany AKHTAR Start: 01-28-[address] WES FERNANDEZ Comment on above: Performed By: #### P SAD ####[place] [address]Dr. Wyatt Aldrich Start: 08-13-2020 Extracorporeal shock wave lithotripsy of calculus of kidney Yovany AKHTAR Dental surgical procedure Gr opncho AKHTAR Entire gallbladder ( body structure) Yovany AKHTAR History of tonsillectomy Mitul AKHTAR Kidney stone (disorder) Gee AKHTAR l4 l5 disectomy Yovany AKHTAR carlo anal abcess Yovany Dowling Repair of anal fistula Marvel AKHTAR Immunizations Immunization Date Immunization Notes Care Provider [facility] 04-19-2022 zoster vaccine recombinant Yovany AKHTAR [facility] 02-12-2022 pneumococcal 20-maría nt conjugate vaccine Yovany AKHTAR [facility] 02-03-2022 zoster vaccine recombinant Yovany AKHTAR [facility] 12-08-2020 SARS-CoV-2 (COVID-19 ) mRNA-1273 vaccine Yovany AKHTAR [facility] 11-17-2020 SARS-CoV-2 (COVID-19 ) mRNA BNT-162b2 vax Yovany AKHTAR [facility] 11-11-2020 SARS-CoV-2 (COVID-19 ) mRNA-1273 vaccine Yovany AKHTAR [facility] Payers Date Payer Category Payer Unknown [id number] 1965 Unknown [id number] .16.84 [id number] 1965 Unknown [id number] .16.84 [id number] 1964 Unknown [id number] 2.16.84 [id number] 1964 Unknown [id number] 2.16.84 [id number] 1964 Unknown [id number] 2.16.84 [id number] 1964 Unknown [id number] 2.16.84 0.1.989461.3.579.2.593 1964 Unknown [id number] 2.16.84 0.1.067451.3.579.2.593 1964 Unknown [id number] 2.16.84 [id number] 1964 Unknown [id number] 2.16.8 40.1.252576.3.579.2.727 1964 Unknown [id number] 2.16.8 40.1.159620.3.579.2.727 1964 Unknown [id number] 2.16.8 40.1.268649.3.579.2.727 1964 Unknown [id number] 2.16.8 [id number] 1964 Unknown [id number] 2.16.84 0.1.525763.3.579.2.1259 1964 Unknown [id number] 2.16.84 0.1.498902.3.579.2.1259 1964 Unknown [id number] 2.16.84 [id number] 1959 Private Health Insurance [id number] Social History Date Type Detail Facility Start: 01-15-2021 End: 06-06-2023 Tobacco smoking status Ex-smoker (finding) [facility] Tobacco smoking status Never [facility] Sex Assigned At Male Judy chong [facility] Functional Status Date Assessment Result Facility 06-06-2023 Functional Status N/A [facility] 06-17-2022 Functional Status N/A [facility] 06-10-2022 Functional Status N/A [facility] Clinical Notes 01-21-2022 to 06-06-2023 Laboratory Note [...] include: ?8 oz (237 mL) of milk, rwxatjd-okbynvpqdawd-kiovi milk, and calcium-fortifiedfruit juice. Calcium-fortified means that [...] ?Spinach (cooked), rhubarb, beets, sweet potatoes, and Armenian chard. ?Peanuts. ?Potato chips, citizen of [place] fries, and baked potatoes with skin on. ?Nuts and nut products. ?Chocolate. If you regularly take a diuretic medicine, make sure to eat at least 1 or 2 servings of fruits or vegetables that are high in potassium each day. These include: ?Avocado. ?Banana. ?Kay, prune, carrot, or tomato juice. ?Baked potato. [...] magnesium, fish oil, or vitamin B6. Take uuhm-afv-gvlirih and prescription medicines only as told by [...] Casseroles. Pizza. Lasagna. Frozen meals. Potato chips. Peruvian fries. The items listed above may not [...] provider. Document Revised: 05/02/2022 Document Reviewed: 05/02/2022 [employer] Patient Education 2022 [employer]. Follow Up Care 01/21/2022 09:03:45 With:GIOVANA CANTOR, Yovany Kwan, URL Address: [facility] [place] [address]- When:Within 1 Year(s) Comments:claire/[place] [facility] 06-17-2022 Hospital Discharge instructions Patient [...] include: ?Spinach. ?Rhubarb. ?Beets. ?Potato chips and citizen of [place] fries. ?Nuts. If you regularly take a diuretic medicine, make sure to eat at least 1 2 fruits or vegetables high in potassium each day. These include: ?Avocado. ?Banana. ?Kay, prune, carrot, or tomato juice. ?Baked potato. [...] Casseroles. Pizza. Lasagna. Frozen meals. Potato chips. Peruvian fries. Summary You can reduce your risk [...] 12/16/2011 Document Revised: 12/11/2019 Document Reviewed: 08/01/2017 [employer] Patient Education 2020 [employer]. Follow Up Care 06/10/2022 10:24:22 With:GIOVANA CANTOR, Yovany Kwan, URL Address: [address] [place], [place] [id number]- When:6 months Comments:w/ [place] [facility] 06-10-2022 Hospital Discharge instructions Patient Education 06/10/2022 [...] include: ?Spinach. ?Rhubarb. ?Beets. ?Potato chips and citizen of [place] fries. ?Nuts. If you regularly take a diuretic medicine, make sure to eat at least 1 2 fruits or vegetables high in potassium each day. These include: ?Avocado. ?Banana. ?Kay, prune, carrot, or tomato juice. ?Baked potato. [...] Casseroles. Pizza. Lasagna. Frozen meals. Potato chips. Peruvian fries. Summary You can reduce your risk [...] 12/16/2011 Document Revised: 12/11/2019 Document Reviewed: 08/01/2017 [employer] Patient Education 2020 [employer]. Follow Up Care 05/30/2022 09:25:01 With:GIOVANA CANTOR, Yovany Kwan, URL Address: [address] [place] [address] [place] [id number]- When:2 weeks Comments:[place] [facility] 01-21-2022 Hospital Discharge instructions Patient [...] urethra. Follow these instructions at home: Take [id number] and prescription medicines only as told by [...] 08/21/2006 Document Revised: 07/16/2019 Document Reviewed: 09/25/2017 [employer] Patient Education 2020 [employer]. Follow Up Care 01/15/2021 08:45:48 With:GIOVANA CANTORYovany, URL Address: [address] [facility] [address] [place] [id number]- When:01/21/2023 Comments:with PSA and x-ray [facility] Evaluation + Plan note Future Appointments Appointment Date:02/24/2023 08:00:00 AM Scheduled Provider:Yovany AKHTAR MD Location[facility] Appointment Type:URO Office Visit [facility] Evaluation + Plan note Future Appointments Appointment Date:02/24/2023 08:00:00 AM Scheduled Provider:Yovany AKHTAR MD Location:[facility] Appointment Type:URO Office Visit Future Scheduled TestsPT & PTT 04/20/22BUN 04/20/22Creatinine 04/20/22Electrolyte Panel 04/20/22CBC w/ Auto Diff 04/20/22 [facility] Evaluation + Plan note Future Appointments Appointment Date:06/17/2022 09:15:00 AM Scheduled Provider:Yovany AKHTAR MD Location:[facility] Appointment Type:URO Office Visit Appointment Date:02/24/2023 08:00:00 AM Scheduled Provider:Yovany AKHTAR MD Location:[facility] Appointment Type:URO Office Visit [facility] Evaluation + Plan note Future Appointments Appointment Date:06/11/2024 08:00:00 AM Scheduled Provider:Yovany AKHTAR MD Location:[facility] Appointment Type:URO Office Visit [facility] Hospital course Narrative No data available for this section [facility] Hospital Discharge instructions No data available for this section [facility] Progress note No data available for this section [facility] Summary Purpose Family History No Family History Records Found No data available for this section No Family History Records FoundNo Family History Records Found Advance Directives No Advanced Directives Records FoundNo Advanced Directives Records FoundNo Advanced Directives Records Found Additional Source Comments Care Team (unrecognized sect ion and content) Personnel Name: aNncy Fernanedz MD Address: [address] [place] [address] Personnel Name: Nancy Fernandez MD Address: Address: [address] [place] [address] Personnel Name: Nancy Fernandez MD Address: Address: [address] [place] [address] Personnel Name: Nancy Fernandez MD Address: Address: [address] [place] [address] (unrecognized sect ion and content) No Status Records FoundNo Status Records FoundNo Status Records Found INFORMATION SOURCE (unrecogn ized section and content) DATE CREATED AUTHOR 07/07/2022 [facility] DATE CREATED AUTHOR AUTHOR'S ORGANIZ ATION 06/08/2023 [facility] DATE CREATED AUTHOR AUTHOR'S ORGANIZ ATION 12/26/2023 [facility] EPIC FOR RECORDS PERTAINING TO PATIENTS WHO ARE [...] BE BASED ON THE PRIMARY CLINICAL RECORDS. [facility] [employer] provides no warranty or guarantee of the accuracy or completeness of information in this document.
[2024-01-01 11:37] LABS: Free T3 2.18 pg/mL (2.18-3.98); Thyroid Stimulating Hormone 1.505 uIU/mL (0.358-3.740)
== END 2024-01-01 08:36 | disposition home or self-care (01) ==
LOC: RAD 08:36
PROVIDERS: PCP Family Medicine; Visit Provider Family Medicine
DX: M51.26 Other intervertebral disc displacement, lumbar region (principal); E03.9 Hypothyroidism, unspecified; M51.36 Other intervertebral disc degeneration, lumbar region
CPT/HCPCS: 36415; 70030; 72158; 84439; 84443; 84481; A9575

== ENCOUNTER 2024-01-10 09:19 | Outpatient (OUT) | payer BC, SELFPAY ==
--- OUTSIDE RECORDS SUMMARY | 2024-01-10 10:02 | XMS_ITS | CCD ---
Author Organization [facility] Care Team Providers Care [employer] Professor Name Role Phone Nancy Fernandez Primary Care [...] Allergy Hyperactive behavior (finding) [facility] Andrew Medications Current Medications Medication Drug Class(es) [...] 30 cap(s), Refills(s) 2, [facility]acy: [id number], 188, cm, 06/10/22 9:57:00 EDT, Height/Length Dosing, [...] 02-19-2019 Episodic Other aftercare (1 source) Other fpc (current) drug therapy; Translations: [OTH GAMING HOST CURRENT DRUG THERAPY] Onset: 05-31-20 Episodic Other aftercare (1 source) long-term (current) use of aspirin; Translations: [FPC CURRENT USE OF ASPIRIN] Onset: 05-31-20 Episodic [...] Interpretation Reference Range Facility [facility] 06-07-2023 Screens [id number]# 1.00CD:127 [facility] Ambulatory Visit Summaryon 1 Ambulatory Visit Summary LIZ SHELBY :1965 Visit Date:06/06/2023 Ambulatory Visit Instructions Your Diagnosis BPH (benign prostatic hyperplasia) Kidney stone Tests Performed Urnls Dip Stick Auto w/o Microscopy POC 07589 XR Abdomen 1 View -- Results Pending [...] Yovany AKHTAR MD Where: [facility] Patient Educationon 06-06-20 Patient Education Nephrology Dietary [...] Spinach (cooked), rhubarb, beets, sweet potatoes, and Lebanese chard. ? Peanuts. ? Potato chips, vietnamese fries, and baked potatoes with skin on. ? Nuts and nut products. ? Chocolate. ? If you regularly take a diuretic medicine, make sure to eat at least 1 or 2 servings of fruits or vegetables that are high in potassium each day. These include: ? Avocado. ? Banana. ? [place], prune, carrot, or tomato juice. ? Baked [...] fish oil, or vitamin B6. ? Take xrxu-rpr-eqbvjoi and prescription medicines only as told by your health care provider. These include supplements. What foods should I limit? Limit your in (more content not included)... Normal [facility] Urology Office/Clinic Noteon 06-06-2023 Urology Office/Clinic Note [...] [address] [address]- Additional Instructions: w/KUB Patient Education [...] with voice recognition artificial intelligence software, specifically [employer], [employer] and or [employer] Substitutions may have occurred due to the inherent limitations of voice recognition and artificial intelligence software. Problem List/Past Medical History Ongoing BMI 40.0-44.9, adult BPH (benign prostatic hyperplasia) Chronic anticoagulation Dermatofibroma of left upper arm Diabetes mellitus type 2, noninsulin dependent Elevated PSA Hx of fpc use of blood thinners Kidney stone Nocturia Osteoarthritis Historical GERD (gastroesophageal reflux disease) Neoplasm of uncertain behavior of skin Thrombophlebitis of lower extremities Procedure/Surgical History ESWL - Extracorporeal shockwave lithotripsy for renal calculus (05/26/2022), ESWL - Extracorporeal shockwave lithotripsy for renal calculus (08/13/2020), Closure of anal fistula, Dental surgical procedure, Gallbladder, (more content not included)... Normal [facility] Comment on above: Result Comment: Elec tronically Signed By: Yovany AKHTAR MD\.br\Date and Time Signed: 06/06/23 09:32 EDT\.br\Electronically Co-Signed By: Maura Teixeira\.br\Date and Time Co-Signed: 06/06/23 09:28 EDT RAD - MISCon 05-31-2023 RAD - MISC [id number]. 00CD:127 Normal [facility] RAD - MISCon 06-20-2022 RAD - MISC [id number] .00CD:127 Normal [facility] [id number] .00CD:127 Normal [facility] Patient Educationon 06-17-20 Patient Education Urology Dietary [...] Rhubarb. ? Beets. ? Potato chips and vietnamese fries. ? Nuts. ? If you regularly take a diuretic medicine, make sure to eat at least 1?2 fruits or vegetables high in potassium each day. These include: ? Avocado. ? Banana. ? [place], prune, carrot, or tomato juice. ? Baked [...] cruz (more content not included)... 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 Normal [facility] Comment on above: Result Comment: Elec tronically [...] by: MANSOOR LIMA Date: 2022-06-16 18:56 Normal [facility] Patient Educationon 06-10-20 Patient Education Urology Dietary [...] Rhubarb. ? Beets. ? Potato chips and vietnamese fries. ? Nuts. ? If you regularly take a diuretic medicine, make sure to eat at least 1?2 fruits or vegetables high in potassium each day. These include: ? Avocado. ? Banana. ? [place], prune, carrot, or tomato juice. ? Baked [...] Salad dr (more content not included)... Normal [facility]2022 [facility] [id number] .00CD:127 Normal [facility] Office/Clinic Noteon 06-10-2022 Urology Office/Clinic Note Chief Complaint Follow up HPI Staff Pt is here for PO ESWL. Pt went to [facility] 05/29/22 for right flank pain. CT [...] ESWL 08/13/2020 - CT done 05/29/22 at [facility] showed 2mm right distal ureteral calculus. Additional 6mm right UPJ calculus - S/P RT Lithotripsy 05/26/22 - KUB done 06/09/22 at [facility] stated there is no visible renal [...] Yovany Kwan, ESHA Within [address] [place] [address]- Additional Instructions: KUB Patient Education Dietary Guidelines [...] 2, noninsulin dependent Elevated PSA Hx of fpc use of blood thinners Kidney stone Nocturia Osteoarthritis Historical GERD (gastroesophageal reflux disease) Neoplasm of uncertain behavior of skin Thrombophlebitis of lower extremities Procedure/Surgical History ESWL - Extracorporeal shockwave lithotripsy for renal calculus (05/26/2022), ESWL - Extracorporeal shock (more content not included)... Normal [facility] Comment on above: Result Comment: Elec tronically [...] MANSOOR LIMA Date: 2022-06-09 17:41 Normal [facility] CBC AUTO DIFFon 05-29-2022 BASO # 0.1 103/ul Normal 0.0-0.1 [facility] Comment on above: Performed By: #### C BC ####[facility] [address] [place] [id number]. Wyatt Aldrich Basophils/100 WBC (Bld) 0.2 % Normal 0.2-2.0 [facility] Comment on above: Performed By: #### C BC ####[facility] [address] [place] [address]DrCullen Aldrich EO # 0.0 103/ul Normal 0.0-0.7 [facility] Comment on above: Performed By: #### C BC ####[facility] [address] [place] [address]Dr. Wyatt Aldrich Eosinophils/100 WBC (Bld) 0.2 % Critically low 0.9-7.0 [facility] Comment on above: Performed By: #### C BC ####[facility] [address] [place] [address] [address]Dr. Wyatt Aldrich Erythrocyte distribution width (RBC) [Ratio] 12.3 % Normal 11.0-15.0 [facility] Comment on above: Performed By: #### C BC ####[facility] [address] [address]Dr. Jossielalo Valdemar Hematocrit (Bld) [Volume fraction] 45.9 % Normal 42.0-54.0 [facility] Comment on above: Performed By: #### C BC ####[facility] [address] [place], [place] [address]Dr. Jossielalo Aldrich Hemoglobin (Bld) [Mass/Vol] 15.2 g/dL Normal 14.0-18.0 [facility] Comment on above: Performed By: #### C BC ####[facility] [address] [place], [place] [address]Dr. Jossielalo Valdemar IG # 0.09 10e3/ul Critically high 0.00-0.03 [facility] Comment on above: Performed By: #### C BC ####[facility] [address] [place], [place] [address]Dr. Jossielalo Aldrich IG % 0.4 % Normal 0.0-0.5 [facility] Comment on above: Performed By: #### C BC ####[facility] [address] [place], [place] [address]Dr. Wyatt Aldrich LYMPH # 1.1 103/ul Critically low 1.2-3.8 The [facility] Comment on above: Performed By: #### C BC ####[facility] [address] [place], [place] [address]Dr. Wyatt Aldrich Lymphocytes/100 WBC (Bld) 5.1 % Critically low 20.5-60.0 [facility] Comment on above: Performed By: #### C BC ####[facility] [address] [place], [place] [address]Dr. Wyatt Aldrich MANUAL DIFF REQ NO Normal [facility] Comment on above: Performed By: #### C BC ####[facility] [address] [place] [address]DrCullen Aldrich MCH (RBC) [Entitic mass] 30.2 pg Normal 25.9-34.0 [facility] Comment on above: Performed By: #### C BC ####[facility] [address] [place] [address]DrCullen Aldrich MCHC (RBC) [Mass/Vol] 33.1 g/dL Normal 29.9-35.2 [facility] Comment on above: Performed By: #### C BC ####[facility] [address] [place] [address]DrCullen Aldrich MCV (RBC) [Entitic vol] 91.3 fL Normal 80.0-94.0 [facility] Comment on above: Performed By: #### C BC ####[facility] [address] [place], [place] [address]DrCullen Aldrich MONO # 1.4 103/ul Critically high 0.3-0.8 [facility] Comment on above: Performed By: #### C BC ####[facility] [address] [place], [place] [address]DrCullen Aldrich Monocytes/100 WBC (Bld) 6.7 % Normal 1.7-12.0 [facility] Comment on above: Performed By: #### C BC ####[facility] [address] [place], [place] [address]DrCullen Aldrich NEUT # 18.5 103/ul Critically high 1.4-6.5 [facility] [place] [facility] Comment on above: Performed By: #### C BC ####[facility] [address] [place], [place] [address]DrCullen Aldrich Neutrophils/100 WBC (Bld) 87.4 % Critically high 43.0-75.0 [facility] Comment on above: Performed By: #### C BC ####[facility] [address] [place], [place] [address]DrCullen Aldrich Platelet mean volume (Bld) [Entitic vol] 9.3 fL Critically low 9.5-13.5 [facility] Comment on above: Performed By: #### C BC ####[facility] [address] [place], [place] [address]Ne. Wyatt Aldrich PLT 303 103/ul Normal 150-450 [facility] Comment on above: Performed By: #### C BC ####[facility] [address] [place], [place] [address]Hm. Wyatt Aldrich RBC 5.03 106/ul Normal 4.70-6.10 [facility] Comment on above: Performed By: #### C BC ####[facility] [address] [place], [place] [address]Mb. Wyatt Aldrich WBC 21.2 103/ul Critically high 4.0-11.0 [facility] [place] [facility] Comment on above: Performed By: #### C BC ####[facility] [address] [place], [place] [address]Gi. Wyatt Aldrich CT ABD/PELVIS WO CONon 05-29 [...] by: BOO GUZMAN Date: 2022-05-29 17:32 Normal [facility] ER URINE PROFILEon 2 Bilirubin Ql (U) Negative Normal NEGATIVE [facility] Comment on above: Performed By: #### U MICRO, ERUR #### [facility] [address] [address] [address] Wyatt Aldrich Clarity (U) CLEAR Normal CLEAR [facility] Comment on above: Performed By: #### U MICRO, ERUR #### [facility] [address] [address] [address] Wyatt Aldrich Color (U) LT. YELLOW Normal YELLOW [facility] Comment on above: Performed By: #### U MICRO, ERUR #### [facility] [address] [place] [address] Dr. Wyatt WINKLERD A micrscopic examination will be performed if indicated. Normal [facility] Comment on above: Performed By: #### U MICRO, ERUR #### [facility] [address] [address] [address] Wyatt Aldrich Glucose Ql (U) Negative Normal NEGATIVE [facility] Comment on above: Performed By: #### U MICRO, ERUR #### [facility] [address] [place] [address] Dr. Wyatt Aldrich Hemoglobin Ql (U) TRACE-INTACT Abnormal NEGATIVE [facility] Comment on above: Performed By: #### U MICRO, ERUR #### [facility] [address] [address] [address] Wyatt Aldrich Ketones Ql (U) Negative Normal NEGATIVE [facility] Comment on above: Performed By: #### U MICRO, ERUR #### [facility] [address] [address] [address] Wyatt Aldrich LEUKOCYTES Negative Normal NEGATIVE [facility] Comment on above: Performed By: #### U MICRO, ERUR #### [facility] [address] [place] [address] Dr. Wyatt Aldrich Nitrite Ql (U) Negative Normal NEGATIVE [facility] Comment on above: Performed By: #### U MICRO, ERUR #### [facility] [address] [address] [address] Wyatt Aldrich pH (U) 7.0 [pH] Normal 5-9 [facility] Comment on above: Performed By: #### U MICRO, ERUR #### [facility] [address] [address] [address] Wyatt Aldrich SPEC GRAVITY 1.020 Normal 1.005-<=1.025 [facility] Comment on above: Performed By: #### U MICRO, ERUR #### [facility] [address] [address] [address] Wyatt Aldrich UA PROTEIN Negative Normal NEGATIVE/ TRACE [facility] Comment on above: Performed By: #### U MICRO, ERUR #### [facility] [address] [place] [address] Dr. Wyatt Aldrich UR MICRO IND INDICATED Normal [facility] Comment on above: Performed By: #### U MICRO, ERUR #### [facility] [address] [address] [address] Wyatt Aldrich Urobilinogen Qn (U) 0.2 {Sharon'U}/dL Normal 0.2 - 1. 0 [facility] Comment on above: Performed By: #### U MICRO, ERUR #### [facility] [address] [place] [address] Dr. Wyatt Aldrich PROF 14(COMP METB)on 022 Albumin [Mass/Vol] 3.9 g/dL Normal 3.4-5.0 [facility] Comment on above: Performed By: #### C MP #### [facility] [address] [place] [address] Dr. Wyatt Aldrich Albumin/Globulin [Mass ratio] 1.1 {ratio} Normal [facility] Comment on above: Performed By: #### C MP #### [facility] [address] [place] [address] Dr. Wyatt Aldrich ALP [Catalytic activity/Vol] 70 U/L Normal 46-116 [facility] Comment on above: Performed By: #### C MP #### [facility] [address] [address] [address] Wyatt Aldrich ALT [Catalytic activity/Vol] 38 U/L Normal 16-63 [facility] Comment on above: Performed By: #### C MP #### [facility] [address] [address] [address] Wyatt Aldrich Anion gap [Moles/Vol] 12.6 mmol/L Normal Th [facility] Comment on above: Performed By: #### C MP #### [facility] [address] [address] [address] Wyatt Aldrich AST [Catalytic activity/Vol] 20 U/L Normal 15-37 [facility] Comment on above: Performed By: #### C MP #### [facility] [address] [place] [address] Dr. Wyatt Aldrich Bilirubin [Mass/Vol] 0.6 mg/dL Normal 0.2-1.0 [facility] Comment on above: Performed By: #### C MP #### [facility] [address] [place] [address] Dr. Wyatt Aldrich Calcium [Mass/Vol] 8.7 mg/dL Normal 8.5-10.1 [facility] Comment on above: Performed By: #### C MP #### [facility] [address] [place] [address] Dr. Wyatt Aldrich Chloride [Moles/Vol] 95 mmol/L Critically low 98-107 [facility] Comment on above: Performed By: #### C MP #### [facility] [address] [place] [address] Dr. Wyatt Aldrich CO2 [Moles/Vol] 29.9 mmol/L Normal 21.0-32.0 [facility] [place] [facility] Comment on above: Performed By: #### C MP #### [facility] [address] [place] [address] Dr. Wyatt Aldrich Creatinine [Mass/Vol] 1.04 mg/dL Normal 0.70-1.30 [facility] Comment on above: Performed By: #### C MP #### [facility] [address] [place] [address] Dr. Wyatt Aldrich EGFR-AF CYMRAES >60 Normal >=60 [facility] Comment on above: Performed By: #### C MP #### [facility] [address] [address] [address] Wyatt Aldrich EGFR-NON AF CYMRAES >60 Normal >=60 [facility] Comment on above: Performed By: #### C MP #### [facility] [address] [address] [address] Wyatt Aldrich Globulin (S) [Mass/Vol] 3.4 g/dL Normal [facility] Comment on above: Performed By: #### C MP #### [facility] [address] [address] [address] Wyatt Aldrich Glucose [Mass/Vol] 148 mg/dL Critically high 74-106 T [facility] Comment on above: Performed By: #### C MP #### [facility] [address] [place] [address] Dr. Wyatt Aldrich Potassium [Moles/Vol] 4.5 mmol/L Normal 3.5-5.1 [facility] Comment on above: Performed By: #### C MP #### [facility] [address] [place] [address] Dr. Wyatt Aldrich Protein [Mass/Vol] 7.3 g/dL Normal 6.4-8.2 [facility] Comment on above: Performed By: #### C MP #### [facility] [address] [address] [address] Wyatt Aldrich Sodium [Moles/Vol] 133 mmol/L Critically low 136-145 Th [facility] Comment on above: Performed By: #### C MP #### [facility] [address] [address] [address] Wyatt Aldrich Urea nitrogen [Mass/Vol] 15.0 mg/dL Normal 7.0-18.0 [facility] Comment on above: Performed By: #### C MP #### [facility] [address] [address] [address] Wyatt Aldrich Urea nitrogen/Creatinine [Mass ratio] 14.4 mg/mg Normal [facility] Comment on above: Performed By: #### C MP #### [facility] [address] [address] [address] Wyatt Aldrich URINE MICROSCOPIC ONLYon BACTERIA NONE SEEN Normal NONE SEEN [facility] Comment on above: Performed By: #### U MICRO, ERUR #### [facility] [address] [place] [address] Dr. Wyatt Aldrich Bacteria identified Cx Nom (U) NOT INDICATED Normal [facility] Comment on above: Performed By: #### U MICRO, ERUR #### [facility] [address] [place] [address] Dr. Wyatt Aldrich CAST NONE SEEN Normal NONE SEEN [facility] Comment on above: Performed By: #### U MICRO, ERUR #### [facility] [address] [place] [address] Dr. Wyatt Aldrich Crystals LM Nom (Urine sed) NONE SEEN Normal NONE SEEN [facility] Comment on above: Performed By: #### U MICRO, ERUR #### [facility] [address] [place] [address] Dr. Wyatt Aldrich Epithelial cells LM Ql (Urine sed) NONE SEEN Normal NONE SEEN /RARE [facility] Comment on above: Performed By: #### U MICRO, ERUR #### [facility] [address] [place] [address] Dr. Wyatt Aldrich MUCOUS NONE SEEN Normal NONE SEEN [facility] Comment on above: Performed By: #### U MICRO, ERUR #### [facility] [address] [place] [address] Dr. Wyatt Aldrich RBC 2-5 Abnormal 0-2 [facility] Comment on above: Performed By: #### U MICRO, ERUR #### [facility] [address] [place] [address] Dr. Wyatt Aldrich WBC NONE SEEN Normal NONE SEEN [facility] Comment on above: Performed By: #### U MICRO, ERUR #### [facility] [address] [place] [address] Dr. Wyatt Aldrich T4 LABCORPon 01-29-2022 T4 [Mass/Vol] 9.1 ug/dL Normal 4.5-12.0 [facility] Comment on above: Performed By: #### T 4LC ####[facility] [address] [place] [address]Dr. Wyatt Aldrich CBC AUTO DIFFon 01-28-2022 BASO # 0.1 103/ul Normal 0.0-0.1 [facility] Comment on above: Performed By: #### C BC ####[facility] [address] [place], [place] [address]Dr. Wyatt Valdemar Basophils/100 WBC (Bld) 0.6 % Normal 0.2-2.0 [facility] Comment on above: Performed By: #### C BC ####[facility] [address] [place], [place] [address]Dr. Wyatt Aldrich EO # 0.2 103/ul Normal 0.0-0.7 [facility] Comment on above: Performed By: #### C BC ####[facility] [address] [place], [place] [address]Dr. Wyatt Aldrich Eosinophils/100 WBC (Bld) 2.4 % Normal 0.9-7.0 [facility] Comment on above: Performed By: #### C BC ####[facility] [address] [place], [place] [address]Dr. Wyatt Aldrich Erythrocyte distribution width (RBC) [Ratio] 12.5 % Normal 11.0-15.0 [facility] Comment on above: Performed By: #### C BC ####[facility] [address] [place], [place] [address]Dr. Wyatt Aldrich Hematocrit (Bld) [Volume fraction] 43.5 % Normal 42.0-54.0 [facility] Comment on above: Performed By: #### C BC ####[facility] [address] [place], [place] [address]Dr. Wyatt Aldrich Hemoglobin (Bld) [Mass/Vol] 14.4 g/dL Normal 14.0-18.0 [facility] Comment on above: Performed By: #### C BC ####[facility] [address] [place] [address]Dr. Wyatt Aldrich IG # 0.03 10e3/ul Normal 0.00-0.03 [facility] Comment on above: Performed By: #### C BC ####[facility] [address] [place] [address]Dr. Wyatt Valdemar IG % 0.4 % Normal 0.0-0.5 [facility] Comment on above: Performed By: #### C BC ####[facility] [address] [place] [address]Dr. Wyatt Valdemar LYMPH # 2.1 103/ul Normal 1.2-3.8 [facility] Comment on above: Performed By: #### C BC ####[facility] [address] [place] [address]Dr. Wyatt Aldrich Lymphocytes/100 WBC (Bld) 24.8 % Normal 20.5-60.0 [facility] Comment on above: Performed By: #### C BC ####[facility] [address] [address]Dr. Jossielalo Aldrich MANUAL DIFF REQ NO Normal [facility] Comment on above: Performed By: #### C BC ####[facility] [address] [address]Dr. Wyatt Valdemar MCH (RBC) [Entitic mass] 30.6 pg Normal 25.9-34.0 [facility] Comment on above: Performed By: #### C BC ####[facility] [address] [address]Dr. Wyatt Valdemar MCHC (RBC) [Mass/Vol] 33.1 g/dL Normal 29.9-35.2 [facility] Comment on above: Performed By: #### C BC ####[facility] [address] [place] [address]Dr. Jossielalo Aldrich MCV (RBC) [Entitic vol] 92.6 fL Normal 80.0-94.0 [facility] Comment on above: Performed By: #### C BC ####[facility] [address] [place] [id number]. Wyatt Aldrich MONO # 0.6 103/ul Normal 0.3-0.8 [facility] Comment on above: Performed By: #### C BC ####[facility] [address] [place] [id number]. Wyatt Aldrich Monocytes/100 WBC (Bld) 7.7 % Normal 1.7-12.0 [facility] Comment on above: Performed By: #### C BC ####[facility] [address] [place] [id number]. Wyatt Aldrich NEUT # 5.3 103/ul Normal 1.4-6.5 [facility] Comment on above: Performed By: #### C BC ####[facility] [address] [place] [address]Dr. Wyatt Aldrich Neutrophils/100 WBC (Bld) 64.1 % Normal 43.0-75.0 [facility] Comment on above: Performed By: #### C BC ####[facility] [address] [place] [address]Dr. Wyatt Aldrich Platelet mean volume (Bld) [Entitic vol] 9.4 fL Critically low 9.5-13.5 [facility] Comment on above: Performed By: #### C BC ####[facility] [address] [place] [address]Dr. Wyatt Aldrich PLT 280 103/ul Normal 150-450 [facility] Comment on above: Performed By: #### C BC ####[facility] [address] [place] [address]Dr. Wyatt Aldrich RBC 4.70 106/ul Normal 4.70-6.10 [facility] Comment on above: Performed By: #### C BC ####[facility] [address] [place] [address]Dr. Wyatt Aldrich WBC 8.3 103/ul Normal 4.0-11.0 [facility] Comment on above: Performed By: #### C BC ####[facility] [address] [place], [place] [address]DrCullen Aldrich FREE T3on 01-28-2022 FREE T3 2.70 pg/mlL Normal 2.18-3.98 [facility] Comment on above: Performed By: #### L IPID, CMP, TSH, FT3 ####[facility] [address] [place], [place] [address]HqCullen Aldrich GLYCOHEMOGLOBIN A1Con 2021 ADA RECOMMENDATION SEE BELOW Normal [facility] Comment on above: Result Comment: ADA RECOMMENDED LIMIT 4.0 - 6.0 ADA THERAPEUTIC TARGET < 7.0 ACTION SUGGESTED > 7.0 Performed By: #### A 1C #### [facility] [address] [address] [address] Wyatt Aldrich Glucose [Mass/Vol] 143 mg/dL Normal [facility] Comment on above: Performed By: #### A 1C #### [facility] [address] [address] [address] Wyatt Aldrich HbA1c (Bld) [Mass fraction] 6.6 % Critically high 4.5-6.2 [facility] Comment on above: Performed By: #### A 1C #### [facility] [address] [address] [address] Wyatt Aldrich LIPID PROFILEon 01-28-2022 CHOL-HDL RATIO NORM SEE BELOW Normal [facility] Comment on above: Result Comment: 3.3 - 4.4 LOW RISK 4.4 - 7.1 AVERAGE RISK 7.1 - 11.0 MODERATE RISK >11.0 HIGH RISK Performed By: #### L IPID, CMP, TSH, FT3 ####[facility] [address] [place] [id number]. Wyatt Aldrich Cholesterol [Mass/Vol] 176 mg/dL Normal <=200 [facility] Comment on above: Performed By: #### L IPID, CMP, TSH, FT3 ####[facility] [address] [place] [address]Dr. Wyatt Aldrich Cholesterol in HDL [Mass/Vol] 35 mg/dL Critically low 40-60 [facility] Comment on above: Performed By: #### L IPID, CMP, TSH, FT3 ####[facility] [address] [place] [address]Dr. Wyatt Aldrich Cholesterol in LDL [Mass/Vol] 94.4 mg/dL Normal [facility] Comment on above: Performed By: #### L IPID, CMP, TSH, FT3 ####[facility] [address] [place] [address]Dr. Wyatt Aldrich Cholesterol.total/Cho lesterol in HDL [Mass ratio] 5.0 {ratio} Normal [facility] Comment on above: Performed By: #### L IPID, CMP, TSH, FT3 ####[facility] [address] [place] [address]Dr. Wyatt Aldrich HDL NORMAL > or = 60 mg/dl - LO W CARDIOVASCULAR RISK <40 mg/dl - HIGH CARDIOVASCULAR RISK Normal [facility] Comment on above: Performed By: #### L IPID, CMP, TSH, FT3 ####[facility] [address] [place] [address]Dr. Wyatt Aldrich LDL CALC NORMAL SEE BELOW Normal [facility] Comment on above: Result Comment: <100 mg/dl OPTIMAL 100 - 129 mg/dl NEAR OR ABOVE OPTIMAL 130 - 159 mg/dl BORDERLINE HIGH 160 - 189 mg/dl HIGH >190 mg/dl VERY HIGH Performed By: #### L IPID, CMP, TSH, FT3 ####[facility] [address] [place] [id number]. Wyatt Aldrich Triglyceride [Mass/Vol] 233 mg/dL Critically high <=150 [facility] Comment on above: Performed By: #### L IPID, CMP, TSH, FT3 ####[facility] [address] [place] [address]Dr. Wyatt Aldrich VLDL CALC 46.6 mg/dL Normal [facility] Comment on above: Performed By: #### L IPID, CMP, TSH, FT3 ####[facility] [address] [place] [address]Dr. Wyatt Aldrich OCC BLD IMMUNO SCREENon 05-2 OCCULT BLOOD Negative Normal NEGATIVE [facility] Comment on above: Performed By: #### O BSCRN #### [facility] [address] [address] [address] Wyatt Aldrich PROF 14(COMP METB)on 022 Albumin [Mass/Vol] 3.4 g/dL Normal 3.4-5.0 [facility] Comment on above: Performed By: #### L IPID, CMP, TSH, FT3 ####[facility] [address] [place] [address]Dr. Wyatt Aldrich Albumin/Globulin [Mass ratio] 1.0 {ratio} Normal [facility] Comment on above: Performed By: #### L IPID, CMP, TSH, FT3 ####[facility] [address] [place] [address]Dr. Wyatt Aldrich ALP [Catalytic activity/Vol] 65 U/L Normal 46-116 [facility] Comment on above: Performed By: #### L IPID, CMP, TSH, FT3 ####[facility] [address] [place] [address]Dr. Wyatt Aldrich ALT [Catalytic activity/Vol] 45 U/L Normal 16-63 [facility] Comment on above: Performed By: #### L IPID, CMP, TSH, FT3 ####[facility] [address] [place] [address]Dr. Wyatt Aldrich Anion gap [Moles/Vol] 9.7 mmol/L Normal [facility] Comment on above: Performed By: #### L IPID, CMP, TSH, FT3 ####[facility] [address] [place] [address]Dr. Wyatt Aldrich AST [Catalytic activity/Vol] 20 U/L Normal 15-37 [facility] Comment on above: Performed By: #### L IPID, CMP, TSH, FT3 ####[facility] [address] [place] [address]Dr. Wyatt Aldrich Bilirubin [Mass/Vol] 0.4 mg/dL Normal 0.2-1.0 [facility] Comment on above: Performed By: #### L IPID, CMP, TSH, FT3 ####[facility] [address] [place] [address]Dr. Wyatt Aldrich Calcium [Mass/Vol] 8.5 mg/dL Normal 8.5-10.1 [facility] Comment on above: Performed By: #### L IPID, CMP, TSH, FT3 ####[facility] [address] [place] [address]Dr. Wyatt Aldrich Chloride [Moles/Vol] 101 mmol/L Normal 98-107 [facility] Comment on above: Performed By: #### L IPID, CMP, TSH, FT3 ####[facility] [address] [place] [address]Dr. Wyatt Aldrich CO2 [Moles/Vol] 33.3 mmol/L Critically high 21.0-32.0 [facility] Comment on above: Performed By: #### L IPID, CMP, TSH, FT3 ####[facility] [address] [place] [address]Dr. Wyatt Aldrich Creatinine [Mass/Vol] 0.77 mg/dL Normal 0.70-1.30 [facility] Comment on above: Performed By: #### L IPID, CMP, TSH, FT3 ####[facility] [address] [place] [address]Dr. Wyatt Aldrich EGFR-AF CYMRAES >60 Normal >=60 [facility] Comment on above: Performed By: #### L IPID, CMP, TSH, FT3 ####[facility] [address] [place] [address]Dr. Wyatt Aldrich EGFR-NON AF CYMRAES >60 Normal >=60 [facility] Comment on above: Performed By: #### L IPID, CMP, TSH, FT3 ####[facility] [address] [place] [address]Dr. Wyatt Aldrich Globulin (S) [Mass/Vol] 3.3 g/dL Normal [facility] Comment on above: Performed By: #### L IPID, CMP, TSH, FT3 ####[facility] [address] [place] [address]Dr. Wyatt Aldrich Glucose [Mass/Vol] 137 mg/dL Critically high 74-106 [facility] Comment on above: Performed By: #### L IPID, CMP, TSH, FT3 ####[facility] [address] [place] [address]Dr. Wyatt Aldrich Potassium [Moles/Vol] 4.0 mmol/L Normal 3.5-5.1 [facility] Comment on above: Performed By: #### L IPID, CMP, TSH, FT3 ####[facility] [address] [place] [address]Dr. Wyatt Aldrich Protein [Mass/Vol] 6.7 g/dL Normal 6.4-8.2 [facility] Comment on above: Performed By: #### L IPID, CMP, TSH, FT3 ####[facility] [address] [place] [address]Dr. Wyatt Aldrich Sodium [Moles/Vol] 140 mmol/L Normal 136-145 [facility] Comment on above: Performed By: #### L IPID, CMP, TSH, FT3 ####[facility] [address] [place] [address]Dr. Wyatt Aldrich Urea nitrogen [Mass/Vol] 13.0 mg/dL Normal 7.0-18.0 [facility] Comment on above: Performed By: #### L IPID, CMP, TSH, FT3 ####[facility] [address] [place] [address]Dr. Wyatt Aldrich Urea nitrogen/Creatinine [Mass ratio] 16.9 mg/mg Normal [facility] Comment on above: Performed By: #### L IPID, CMP, TSH, FT3 ####[facility] [address] [place] [address]Dr. Wyatt Aldrich TSHon 01-28-2022 TSH 5.562 uIU/mL Critically high 0.358-3.740 [facility] Comment on above: Performed By: #### L IPID, CMP, TSH, FT3 ####[facility] [address] [place] [address]Dr. Wyatt Aldrich TSH RANGE SEE BELOW Normal [facility] Comment on above: Result Comment: <0.3 4 UIU/ml HYPERTHYROID 0.34-5.60 UIU/ml EUTHYROID >5.60 UIU/ml HYPOTHYROID Performed By: #### L IPID, CMP, TSH, FT3 ####[facility] [address] [place], [place] [address]Pa. Wyatt Aldrich XR KUB 1 VIEWon 01-20-2022 [...] [place] Date: 2022-01-20 14:12 Normal [facility] MRI LSPINE WO W CONon 2021 MRI [...] by: TANISHA CHIU Date: 2021-10-04 11:23 Normal [facility] XR LSPINE MIN 4 VIEWSon 09-05 XR [...] by: SOLO SAVAGE Date: 2021-09-27 11:31 Normal [facility] Vital Signs Date Time Vital Sign Value Performing Clinician Jessi chowdhury 06-06-2023 08:48-0400 Blood Pressure Location Yovany GIOVANA [facility] 06-06-2023 08:48-0400 Diastolic blood pressure 66 mm[Hg] Yovany AKHTAR [facility] 06-06-2023 08:48-0400 Heart rate 83 /min Yovany AKHTAR [facility] 06-06-2023 08:48-0400 Systolic blood pressure 142 mm[Hg] Yovany COOK [facility] 06-17-2022 09:14-0400 Blood Pressure Location Yovany COOK [facility] 06-17-2022 09:14-0400 Diastolic blood pressure 96 mm[Hg] Yovany COOK [facility] 06-17-2022 09:14-0400 Heart rate 67 /min Yovany COOK [facility] 06-17-2022 09:14-0400 Systolic blood pressure 159 mm[Hg] Yovany COOK [facility] 06-10-2022 09:54-0400 Blood Pressure Location Yovany COOK [facility] 06-10-2022 09:54-0400 Diastolic blood pressure 102 mm[Hg] Yovany COOK [facility] 06-10-2022 09:54-0400 Heart rate 68 /min Yovany COOK [facility] 06-10-2022 09:54-0400 Systolic blood pressure 166 mm[Hg] Yovany COOK [facility] 01-21-2022 08:44-0400 Blood Pressure Location Yovany COOK [facility] 01-21-2022 08:44-0400 Diastolic blood pressure 87 mm[Hg] [facility] COOK [facility] 01-21-2022 08:44-0400 Heart rate 72 /min Yovany GIOVANA [facility] 01-21-2022 08:44-0400 Systolic blood pressure 140 mm[Hg] Yovany GIOVANA [facility] [place] Encounters Encounter Date Encounter Type Care Provider Facility Start: 06-11-2024 ambulatory Yovany AKHTAR Facility :[facility] [place] Start: 12-25-2023 End: 12-25-2023 ambulatory MICHAEL KIM Not Available Start: 12-21-2023 End: 12-21-2023 ambulatory BALTA OTTO Not Available Start: 12-19-2023 End: 12-19-2023 ambulatory MICHAEL KIM Not Available Start: 06-06-2023 End: 06-07-2023 ambulatory Yovany AKHTAR Facility:[facility] Start: 06-06-2023 End: 06-06-2023 Patient encounter procedure Yovany AKHTAR [facility] [place] Start: 06-17-2022 End: 06-18-2022 ambulatory Yovany AKHTAR Facility:[facility] Start: 06-17-2022 End: 06-17-2022 Patient encounter procedure Yovany AKHTAR [facility] [place] Start: 06-16-2022 End: 06-17-[address] NANCY FERNANDEZ Facility:[facility] Start: 06-10-2022 End: 06-11-2022 ambulatory Yovany AKHTAR Facility:[facility] [place] Start: 06-10-2022 End: 06-10-2022 Patient encounter procedure Yvoany AKHTAR [facility] Start: 06-09-2022 End: 06-10-[address] NANCY FERNANDEZ Facility:[facility] Start: 05-29-2022 End: 05-29-[address] NANCY FERNANDEZ Facility:[facility] Start: 05-11-2022 End: 05-11-2022 Patient encounter procedure Yovany AKHTAR [facility] Start: 02-03-2022 Encounter for genera l adult medical examination without abnormal findings DR NANCY FERNANDEZ [facility] Start: 01-28-2022 End: 01-29-[address] NANCY FERNANDEZ Facility:[facility] Start: 01-28-2022 End: 01-29-2022 Encounter for general adult medical examination without abnormal findings DR NANCY FERNANDEZ Facility:[facility] Start: 01-21-2022 End: 01-21-2022 Patient encounter procedure Yovany AKHTAR [facility] Start: 01-20-2022 End: 01-21-[address] NANCY FERNANDEZ Facility:[facility] Start: 10-04-2021 End: 10-05-[address] NANCY FERNANDEZ Facility:[facility] Start: 09-29-2021 End: 09-29-2021 ambulatory MARILU MURGUIA Facility:[facility] Start: 09-27-2021 End: 09-28-[address] NANCY FERNANDEZ Facility:[facility] Procedures Date Procedure Procedure Detail Performing Clinician Start: 05-26-2022 Extracorporeal shock wave lithotripsy of calculus of kidney Yovnay AKHTAR Start: 01-28-[address] WES FERNANDEZ Comment on above: Performed By: #### P SAD ####[place] [address]Dr. Wyatt Aldrich Start: 08-13-2020 Extracorporeal shock wave lithotripsy of calculus of kidney Yovany AKHTAR Dental surgical procedure Gr poncho AKHTAR Entire gallbladder ( body structure) Yovany AKHTAR History of tonsillectomy Mitul AKHTAR Kidney stone (disorder) Gee AKHTAR l4 l5 disectomy Yovany AKHTAR carlo anal abcess Yovany Dowling Repair of anal fistula Marvel AKHTAR Immunizations Immunization Date Immunization Notes Care Provider [facility] 04-19-2022 zoster vaccine recombinant Yovany AKHTAR [facility] 02-12-2022 pneumococcal 20-maría nt conjugate vaccine Yovany AKHTAR [facility] 02-03-2022 zoster vaccine recombinant Yovany AKHTAR [facility] 12-08-2020 SARS-CoV-2 (COVID-19 ) mRNA-1273 vaccine Yovany AKHTAR [facility] 11-17-2020 SARS-CoV-2 (COVID-19 ) mRNA BNT-162b2 vax Yovany AKHTAR [facility] 11-11-2020 SARS-CoV-2 (COVID-19 ) mRNA-1273 vaccine Yovany AKHTAR [facility] Payers Date Payer Category Payer Unknown [id number] 1965 Unknown [id number] .16.84 [id number] 1965 Unknown [id number] .16.84 [id number] 1964 Unknown [id number] 2.16.84 [id number] 1964 Unknown [id number] 2.16.84 [id number] 1964 Unknown [id number] 2.16.84 [id number] 1964 Unknown [id number] 2.16.84 [id number] 1964 Unknown [id number] 2.16.84 [id number] 1964 Unknown [id number] 2.16.84 [id number] 1964 Unknown [id number] 2.16.8 [id number] 1964 Unknown [id number] 2.16.8 [id number] 1964 Unknown [id number] 2.16.8 [id number] 1964 Unknown [id number] 2.16.8 40.1.775069.3.579.2.727 1964 Unknown [id number] 2.16.84 0.1.710807.3.579.2.1259 1964 Unknown [id number] 2.16.84 0.1.907773.3.579.2.1259 1964 Unknown [id number] 2.16.84 [id number] 1960 Private Health Insurance [id number] Social History Date Type Detail Facility Start: 01-15-2021 End: 06-06-2023 Tobacco smoking status Ex-smoker (finding) [facility] Tobacco smoking status Never [facility] Sex Assigned At Male Judy chong [facility] Functional Status Date Assessment Result Facility 06-06-2023 Functional Status N/A [facility] 06-17-2022 Functional Status N/A [facility] 06-10-2022 Functional Status N/A [facility] Clinical Notes 01-21-2022 to 06-06-2023 Laboratory [...] include: ?8 oz (237 mL) of milk, ybknwqy-dzmvmrfyjvba-dqaci milk, and calcium-fortifiedfruit juice. Calcium-fortified means that [...] ?Spinach (cooked), rhubarb, beets, sweet potatoes, and Lebanese chard. ?Peanuts. ?Potato chips, vietnamese fries, and baked potatoes with skin on. ?Nuts and nut products. ?Chocolate. If you regularly take a diuretic medicine, make sure to eat at least 1 or 2 servings of fruits or vegetables that are high in potassium each day. These include: ?Avocado. ?Banana. ?[place], prune, carrot, or tomato juice. ?Baked potato. [...] magnesium, fish oil, or vitamin B6. Take zaij-vhp-tkbdeee and prescription medicines only as told by [...] Casseroles. Pizza. Lasagna. Frozen meals. Potato chips. Sierra Leonean fries. The items listed above may not [...] provider. Document Revised: 05/02/2022 Document Reviewed: 05/02/2022 DocDep Patient Education 2022 WEbook. Follow Up Care 01/21/2022 09:03:45 With:GIOVANA CANTOR, Yovany Kwan, URL Address: [facility] [place] [address]- When:Within 1 Year(s) Comments:claire/MT [facility] [place] 06-17-2022 Hospital Discharge instructions Patient Education 06/17/2022 [...] include: ?Spinach. ?Rhubarb. ?Beets. ?Potato chips and vietnamese fries. ?Nuts. If you regularly take a diuretic medicine, make sure to eat at least 1 2 fruits or vegetables high in potassium each day. These include: ?Avocado. ?Banana. ?[place], prune, carrot, or tomato juice. ?Baked potato. [...] Casseroles. Pizza. Lasagna. Frozen meals. Potato chips. Sierra Leonean fries. Summary You can reduce your risk [...] 12/16/2011 Document Revised: 12/11/2019 Document Reviewed: 08/01/2017 DocDep Patient Education 2020 WEbook. Follow Up Care 06/10/2022 10:24:22 With:GIOVANA CANTOR, Yovany Kwan, URL Address: [address] [place], [place] [id number]- When:6 months Comments:w/ [place] [facility] 06-10-2022 Hospital Discharge instructions Patient Education 06/10/2022 [...] include: ?Spinach. ?Rhubarb. ?Beets. ?Potato chips and vietnamese fries. ?Nuts. If you regularly take a diuretic medicine, make sure to eat at least 1 2 fruits or vegetables high in potassium each day. These include: ?Avocado. ?Banana. ?[place], prune, carrot, or tomato juice. ?Baked potato. [...] Casseroles. Pizza. Lasagna. Frozen meals. Potato chips. Sierra Leonean fries. Summary You can reduce your risk [...] 12/16/2011 Document Revised: 12/11/2019 Document Reviewed: 08/01/2017 DocDep Patient Education 2020 WEbook. Follow Up Care 05/30/2022 09:25:01 With:GIOVANA CANTOR, Yovany Kwan, URL Address: [address] [place] [address] [place] [address]- When:2 weeks Comments:MT [facility] 01-21-2022 Hospital Discharge instructions Patient Education [...] urethra. Follow these instructions at home: Take kmtm-axz-knynetr and prescription medicines only as told by [...] 08/21/2006 Document Revised: 07/16/2019 Document Reviewed: 09/25/2017 DocDep Patient Education 2020 WEbook. Follow Up Care 01/15/2021 08:45:48 With:GIOVANA CANTORYovany, URL Address: [address] [facility] [address] [place] [address]- When:01/21/2023 Comments:with PSA and x-ray [facility] Evaluation + Plan note Future Appointments Appointment Date:02/24/2023 08:00:00 AM Scheduled Provider:[facility]AR [facility] Type:[facility]O Office Visit [facility] Evaluation + Plan note Future Appointments Appointment Date:02/24/2023 08:00:00 AM Scheduled Provider:Yovany AKHTAR MD Location:[facility] [place] Appointment Type:URO Office Visit Future Scheduled TestsPT & PTT 04/20/22BUN 04/20/22Creatinine 04/20/22Electrolyte Panel 04/20/22CBC w/ Auto Diff 04/20/[address] [facility] Evaluation + Plan note Future Appointments Appointment Date:06/17/2022 09:15:00 AM Scheduled Provider:Yovany AKHTAR MD Location:[facility] [place] Appointment Type:URO Office Visit Appointment Date:02/24/2023 08:00:00 AM Scheduled Provider:Yovany AKHTAR MD [facility] App[facility] Type:URO Office Visit [facility] Evaluation + Plan note Future Appointments Appointment Date:06/11/2024 08:00:00 AM Scheduled Provider:Yovany AKHTAR MD [facility] App[facility] Type:URO Office Visit [facility] Hospital course Narrative No data available for this section [facility] Hospital Discharge instructions No data available for this section [facility] Progress note No data available for this section [facility] Summary Purpose Family History No Family History Records Found No data available for this section No Family History Records FoundNo Family History Records Found Advance Directives No Advanced Directives Records FoundNo Advanced Directives Records FoundNo Advanced Directives Records Found Additional Source Comments Care Team (unrecognized sect ion and content) Personnel Name: Nancy Fernandez MD Address: [address] [place] [address] Personnel Name: Nancy Fernandez MD Address: Address: [address] [place] [address] Personnel Name: Nancy Fernandez MD Address: Address: [address] [place] [address] Personnel Name: Nancy Fernandez MD Address: Address: [address] [place] [address] (unrecognized sect ion and content) No Status Records FoundNo Status Records FoundNo Status Records Found INFORMATION SOURCE (unrecogn ized section and content) DATE CREATED AUTHOR 07/07/2022 [facility] DATE CREATED AUTHOR AUTHOR'S ORGANIZ ATION 06/08/2023 [facility] DATE CREATED AUTHOR AUTHOR'S ORGANIZ ATION 12/26/2023 [facility] EPIC FOR RECORDS PERTAINING TO PATIENTS [...] BE BASED ON THE PRIMARY CLINICAL RECORDS. [facility] [employer] provides no warranty or guarantee of the accuracy or completeness of information in this document.
--- NOTE | 2024-01-10 10:10 | P.CN_ITS ---
Consult Note: HPI Data of Consult Patient: new to practice Consult date: 01/10/24 Requesting Physician: Shilpi Britton NP Primary Care Provider: Asim Fernandez MD Consult Narrative Reason for consult: chronic low back pain, left radiculopathy Narrative: Elvis Hernandez a pleasant 58 year old male presents for assessment of chronic low back pain with left sided radiculopathy. Chronic low back pain greater than 10 years, hx of lumbar discectomy in 2009. Patient recently completed greater than 6 weeks of PT/HEP without improvement, updated lumbar xray and MRI below consistent with degenerative changes as well as multilevel central and foraminal stenosis. Pain today 1/10, reports constatnt low back pain and weakness of left leg, pain increases to 8/10 with standing walking activity. Pain improved with forward flexion and rest. Patient denies loss of bowel/bladder, no falls. Failed to benefit from motrin, tramadol, tylenol. No recent ESIs, not interested in surgical referral at this time. cc:: CC: Shilpi Britton NP Review of Systems ROS Status of ROS 10 or more systems reviewed and unremark able except as noted in history and below Musculoskeletal Reports: back pain PFSH PFS Medical History (Updated 01/10/24 @ 10:18 by Shilpi Britton NP) Surgical procedures, elective ?Z41.9 - Encounter for procedure for purposes other than remedying health state, unspecified (ICD-10) Neuropathy ?G62.9 - Polyneuropathy, unspecified (ICD-10) Normal colonoscopy Renal lithiasis ?N20.0 - Calculus of kidney (ICD-10) HTN (hypertension) ?I10 - Essential (primary) hypertension (ICD-10) Hypothyroidism ?E03.9 - Hypothyroidism, unspecified (ICD-10) Diabetes ?E11.9 - Type 2 diabetes mellitus without complications (ICD-10) Traumatic brain injury ?S06.9XAA - Unspecified intracranial injury with loss of consciousness status unknown, initial encounter (ICD-10) MARGE (obstructive sleep apnea) ?G47.33 - Obstructive sleep apnea (adult) (pediatric) (ICD-10) COPD (chronic obstructive pulmonary disease) ?J44.9 - Chronic obstructive pulmonary disease, unspecified (ICD-10) 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 - Acute embolism and thrombosis of superior vena cava (ICD-10) Herniated lumbar intervertebral disc ?M51.26 - Other intervertebral disc displacement, lumbar region (ICD-10) Surgical History Pain management ?R52 - Pain, unspecified (ICD-10) History of cholecystectomy ?Z90.49 - Acquired absence of other specified parts of digestive tract (ICD- 10) History of tonsillectomy ?Z90.89 - Acquired absence of other organs (ICD-10) Hx of lithotripsy ?Z98.890 - Other specified postprocedural states (ICD-10) Hx of lumbar discectomy ?Z98.890 - Other specified postprocedural states (ICD-10) Meds Home Medications and Allergies Home Medications ?Medication ?Instructions ?Recorded ?Confirmed ?Type aspirin 81 mg capsule 81 mg PO DAILY 12/15/23 12/22/23 History carvedilol 25 mg tablet (Coreg) 37.5 mg PO Q12H 12/15/23 12/22/23 History glimepiride 2 mg tablet 2 mg PO DAILY 12/15/23 12/22/23 History hydralazine 50 mg tablet 50 mg PO TID 12/15/23 12/22/23 History hydrochlorothiazide 50 mg tablet 50 mg PO DAILY 12/15/23 12/22/23 History levothyroxine 125 mcg capsule 125 mcg PO DAILY 12/15/23 12/22/23 History metformin 500 mg tablet 500 mg PO BID 12/15/23 12/22/23 History multivitamin 1 tab PO DAILY 12/15/23 12/22/23 History olmesartan 40 mg tablet 40 mg PO DAILY 12/15/23 12/22/23 History pravastatin 20 mg tablet 20 mg PO DAILY 12/15/23 12/22/23 History tramadol 50 mg tablet 50 mg PO QID PRN pain 12/15/23 12/22/23 History Allergies Allergy/AdvReac Type Severity Reaction Status Date / Time No Known Drug Allergies Allergy Verified 12/22/23 13:42 Exam Constitutional Documenting provider has reviewed patient's vital signs: yes Common normals: no apparent distress, oriented x3, healthy appearing, alert and well nourished General appearance: cooperative HENMT Common normals: normocephalic, hearing grossly normal bilaterally and moist oral mucous membranes Head and scalp: normocephalic Eye Common normals: PERRL Pupil: PERRL Neck & C-Spine Common normals: full ROM General: normal visual inspection Chest Common normals: inspection of chest normal Respiratory Common normals: normal respiratory effort, no retractions and no use of accessory muscles Back & Pelvis Lumbar spine/lower back: ROM limited, pain with ROM and straight leg raise positive left Sacroiliac joints: SI joints normal Other: decreased sensation to left L3,4,5 and S1 pattern strength 3/5 in LLE 5/5 in RLE negative internal and external rotation of left hip, no tenderness of GTB Extremity Common normals: normal to inspection and full ROM Neuro Common normals: oriented x3, CN's II-XII intact bilaterally, moves all extremities, no focal motor deficits, no sensory deficits noted and deep tendon reflexes 2+ bilaterally Sensorium/orientation: alert Motor exam: no movement abnormalities noted and strength abnormal Psych Common normals: mental status grossly normal, thought process normal, cooperative, affect normal, speech normal and activity/motor behavior normal Speech: normal speech Thought process: normal thought process Results Imaging Lumbar MRI: Attestation: I have reviewed the pertinent imaging results. Radiologist's impression: There is lumbarization of S1. For dictation purposes, the lowest complete disc space in the lumbar spine considered as S1-S2. Right renal lesion with T2 prolongation not fully characterized by this study and statistically may suggest simple renal cyst. There is normal physiologic lumbar lordosis. The vertebral height is preserved. The conus medullaris is at the level of L1. No signal abnormality within the visualized spinal cord is noted. At the level of L1-L2, there are disc bulge with no neuroforaminal narrowing and no canal stenosis. At the level of L2-L3, there are disc bulge with mild bilateral neuroforaminal narrowing and moderate canal stenosis. At the level of L3-4, there are disc bulge with severe bilateral neuroforaminal narrowing and moderate canal stenosis. At the level of L4-5, there are disc bulge with moderate right and severe left neuroforaminal narrowing and mild canal stenosis. At the level of L5-S1, there are disc bulge with severe bilateral neuroforaminal narrowing and mild canal stenosis. The left S1 nerve root is in close contact with the disc bulge in the lateral recesses. 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 The paraspinal muscles are unremarkable. No abnormal enhancing lesion is noted. Lumbar Xray: Attestation: I have reviewed the pertinent imaging results. Radiologist's impression: Mild anterior wedging deformity of T11 and T12 vertebral bodies. Multilevel endplate degenerative changes, disc disease, anterior spurring and facet arthropathy of the thoracolumbar spine, most prominent from L3 to S1. Additional Findings Additional findings: If on a controlled substance or opioids, I have checked an [place] report on this patient and there are no aberrancies noted in the prescribing history.??If on a controlled substance or opioid a drug screen was completed and reviewed within the last year, and if there has not been a drug screen completed we ordered one today to monitor higher risk, state monitored pain medication use. As part of providing excellent, safe, comprehensive care, the following was completed at our patient's visit: 1. A medication reconciliation and review to ensure accurate knowledge of current/active medications, including asking our patients to inform us about any [id number] medications or herbal remedies/nutritional supplements/alternative remedies. 2. A review to specifically ensure our patients have had annual screening for screening for depression, screening for tobacco use, and screening for unhealthy alcohol use. For concerning screenings had a discussion with the patient, provided patient education, and recommended follow-up with primary care provider when appropriate. If patient noted with a risk of falling, they received education on strength, gait, and balance training to prevent future risk of falling. Assessment and Plan Assessment and Plan (1) Lumbar stenosis with neurogenic claudication: (2) Lumbar facet arthropathy: (3) Lumbar radiculopathy: (4) Obesity: Assessment and Plan: patient working on weight loss. DM recent A1c less than 7%. Not a candidate for vertiflex due to BMI Plan The patient has had over 3 months of moderate to severe low back with left leg pain and weaknes with functional impairment and inadequate response to conservative care including NSAIDS (unless there are contraindication such as concurrent blood thinners), multiple oral or topical pain medications, and home exercise program/physical therapy.? Patient has completed >6 weeks of guided home exercise program and/or formal physical therapy program without relief of their symptoms.? I have reviewed the imaging of the lumbar spine and no red flags were identified.? The imaging reveals radiographic findings consistent with lumbar stenosis and lumbar facet arthropathy The Oswestry Disability Index was completed, and the patient scored a 22%.? The patient noted the following:??moderate to severe pain, cannot walk more than 0.5 miles, standing increases pain, pain impacting social life, sleep, and travel We discussed the risks and benefits of the procedure with the patient, and we are*NOT planning on using sedation as outlined in the guidelines from Medicare unless there is a documented reason that sedation would be strongly recommended.?? The procedure will be completed with fluoroscopic guidance.? Left L3-4 L4-5 TFESI x2 for moderate to severe stenosis, moderate to severe low back and left leg radicular pain and weakness, neurogenic claudication continue current medications as tolerated through PCP f/u 2 weeks after injections completed
== END 2024-01-10 09:20 | disposition home or self-care (01) ==
LOC: PM 09:19
PROVIDERS: PCP Family Medicine; Visit Provider Nurse Practitioner
DX: M48.062 Spinal stenosis, lumbar region with neurogenic claudication (principal); M47.816 Spondylosis without myelopathy or radiculopathy, lumbar region; M54.16 Radiculopathy, lumbar region; E66.9 Obesity, unspecified
CPT/HCPCS: G0463

== ENCOUNTER 2024-02-05 08:55 | Day surgery (SDC) | payer BC, SELFPAY ==
[2024-02-05 09:13] VITALS: BP 133/78; PULSE 67; TEMP 36.4; O2SAT 96
[2024-02-05 09:17] LABS: Glucometer 144 mg/dL (74-106)
--- OUTSIDE RECORDS SUMMARY | 2024-02-05 09:22 | XMS_ITS ---
Patient Summarization (C-CDA 2.1 CCD) Created on: February 05, 2024 LIZ SHELBY : 1965 Sex: Male Author Organization Sample organization Care Team Providers Care Freelance Writer Name Role Phone Nancy Fernandez Primary Care Physician [phone] DR NANCY FERNANDEZ Primary Care Unavailable GIOVANA, [...] Consulting Unavailable RADHA TINSLEY Admitting Unavailable RADHA ITNSLEY Attending Unavailable BOO GUZMAN Consulting Unavailable VELVET, [...] behavior (finding) [facility] [employer] Encounters Encounter Date Encounter Type Care Provider Facility Start: 06-11-2024 ambulatory Yovany AKHTAR Facility :[facility] Start: 12-25-2023 End: 12-25-2023 ambulatory MICHAEL KIM Not Available Start: 12-21-2023 End: 12-21-2023 ambulatory BALTA OTTO Not Available Start: 12-19-2023 End: 12-19-2023 ambulatory MICHAEL KIM Not Available Start: 06-06-2023 End: 06-07-2023 ambulatory Yovany AKHTAR Facility:[facility] Start: 06-06-2023 End: 06-06-2023 Patient encounter procedure Yovany AKHTAR [facility] [employer] Start: 06-17-2022 End: 06-18-2022 ambulatory Yovany AKHTAR Facility:[facility] Start: 06-17-2022 End: 06-17-2022 Patient encounter procedure Yovany AKHTAR [facility] [employer] Start: 06-16-2022 End: 06-17-[address] NANCY FERNANDEZ Facility:[facility] Start: 06-10-2022 End: 06-11-2022 ambulatory Yovany AKHTAR Facility:[facility] Start: 06-10-2022 End: 06-10-2022 Patient encounter procedure Yovany AKHTAR [facility] [employer] Start: 06-09-2022 End: 06-10-[address] NANCY FERNANDEZ Facility:[facility] Start: 05-29-2022 End: 05-29-[address] NANCY FERNANDEZ Facility:[facility] Start: 05-11-2022 End: 05-11-2022 Patient encounter procedure Yovany AKHTAR [facility] Start: 02-03-2022 Encounter for genera l adult medical examination without abnormal findings DR NANCY FERNANDEZ [facility] Start: 01-28-2022 End: 01-29-[address] NANCY FERNANDEZ Facility:[facility] Start: 01-28-2022 End: 01-29-2022 Encounter for general adult medical examination without abnormal findings DR NANCY FERNANDEZ Facility:[facility] Start: 01-21-2022 End: 01-21-2022 Patient encounter procedure Yovany AKHTAR [facility] Start: 01-20-2022 End: 01-21-[address] NANCY FERNANDEZ Facility:[facility] Start: 10-04-2021 End: 10-05-[address] NANCY FERNANDEZ Facility:[facility] Start: 09-29-2021 End: 09-29-2021 ambulatory MARILU MURGUIA Facility:[facility] Start: 09-27-2021 End: 09-28-[address] NANCY FERNANDEZ Facility:[facility] Immunizations Immunization Date Immunization Notes Care Provider [facility] 04-19-2022 zoster vaccine recombinant Yovany AKHTAR [facility] 02-12-2022 pneumococcal 20-maría nt conjugate vaccine Yovany AKHTAR [facility] 02-03-2022 zoster vaccine recombinant Yovany AKHTAR [facility] 12-08-2020 SARS-CoV-2 (COVID-19 ) mRNA-1273 vaccine Yovany AKHTAR [facility] 11-17-2020 SARS-CoV-2 (COVID-19 ) mRNA BNT-162b2 vax Yovany AKHTAR [facility] 11-11-2020 SARS-CoV-2 (COVID-19 ) mRNA-1273 vaccine Yovany AKHTAR [facility] Medications Current Medications Medication Drug Class(es) Dates [...] 30 cap(s), Refills(s) 2, [facility]acy: [id number], 188, cm, 06/10/22 9:57:00 EDT, Height/Length Dosing, [...] Daily, Prophylaxis Start Date: 07/29/20 Status: Ordered Payers Date Payer Category Payer Unknown [id number] 1965 Unknown [id number] 2.16.84 [id number] 1965 Unknown [id number] 2.16.84 [id number] 1965 Unknown [id number] 2.16.84 0.1.258821.3.579.2.593 1965 Unknown [id number] 2.16.84 0.1.705091.3.579.2.593 1965 Unknown [id number] 2.16.84 0.1.128454.3.579.2.593 1965 Unknown [id number] 2.16.84 0.1.847966.3.579.2.593 1965 Unknown [id number] 2.16.84 0.1.957666.3.579.2.593 1965 Unknown [id number] 2.16.84 0.1.308794.3.579.2.593 1965 Unknown [id number] 2.16.8 40.1.898991.3.579.2.727 1965 Unknown [id number] 2.16.8 40.1.727750.3.579.2.727 1965 Unknown [id number] 2.16.8 40.1.801559.3.579.2.727 1965 Unknown [id number] 2.16.8 40.1.507565.3.579.2.727 1965 Unknown [id number] 2.16.84 0.1.638158.3.579.2.9 1965 Unknown [id number] 2.16.84 0.1.932153.3.579.2.1259 1965 Unknown [id number] 2.16.84 0.1.306429.3.579.2.1259 1960 Private Health Insurance [id number] Problems Active Problems Problem Classification Problem Date [...] Other fpc (current) drug therapy; Translations: [OTH LONG-TERM CURRENT DRUG THERAPY] Onset: 05-31-20 Episodic Other aftercare (1 source) 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; 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] Onset: 05-31-20 Episodic [...] object(s), not elsewhere classified, initial encounter; Translations: [[facility] OT SHRP OB NOT ELSW CLASS INI] Onset: 10-01-2021 Episodic Immunizations and screening for infectious disease (1 source) Encounter for immunization; Translations: [ENCOUNTER FOR IMMUNIZATION] Onset: 10-01-2021 Episodic Open wounds of extremities (4 sources) Laceration without foreign body of left wrist, initial encounter; Translations: [LACERATION W/O FB LT WRIST INITIAL] Onset: 09-29-2021 Episodic Procedures Date Procedure Procedure Detail Performing Clinician Start: 05-26-2022 Extracorporeal shock wave lithotripsy of calculus of kidney Yovany AKHTAR Start: 01-28-[address] WES FERNANDEZ Comment on above: Performed By: #### P SAD ####[facility] [address] [place], [place] [id number] Aldrich Start: 08-13-2020 Extracorporeal shock wave lithotripsy of calculus of kidney Yovany AKHTAR Dental surgical procedure Gr poncho AKHTAR Entire gallbladder ( body structure) Yovany AKHTAR History of tonsillectomy Mitul AKHTAR Kidney stone (disorder) Gee AKHTAR l4 l5 disectomy Yovany AKHTAR carlo anal abcess Yovany RIPSAW OPERATOR K Repair of anal fistula Marvel AKHTAR Results Test Name Value Interpretation Reference Range Facility [facility] 06-07-2023 Screens [id number]# 1.00CD:127 Normal [facility] Ambulatory Visit Summaryon 1 Ambulatory Visit Summary LIZ SHELBY Yaquelin :1965 Visit Date:06/06/2023 Ambulatory Visit Instructions Your Diagnosis BPH (benign prostatic hyperplasia) Kidney stone Tests Performed Urnls Dip Stick Auto w/o Microscopy POC 42913 XR Abdomen 1 View -- Results Pending [...] Follow-Up Appointments Monday 8:00 AM EDT With: GIOVANA CANTOR, Yovany Kwan Where: [facility] Patient Educationon 06-06-20 Patient Education Nephrology [...] Spinach (cooked), rhubarb, beets, sweet potatoes, and Kitt[place] chard. ? Peanuts. ? Potato chips, eritrean fries, and baked potatoes with skin on. ? Nuts and nut products. ? Chocolate. ? If you regularly take a diuretic medicine, make sure to eat at least 1 or 2 servings of fruits or vegetables that are high in potassium each day. These include: ? Avocado. ? Banana. ? [place], prune, carrot, or tomato juice. ? Baked [...] fish oil, or vitamin B6. ? Take pyeh-xep-zhfdyhy and prescription medicines only as told by your health care provider. These include supplements. What foods should I limit? Limit your in (more content not included)... Normal [facility] Urology Office/Clinic Noteon 06-06-2023 Urology Office/Clinic Note [...] Yovany Kwan, URL In 1 year [address] [place] [address]- Additional Instructions: w/KUB Patient Education Dietary Guidelines [...] with voice recognition artificial intelligence software, specifically LiveQoS, PingMe and or Prepair. Substitutions may have occurred due to the inherent limitations of voice recognition and artificial intelligence software. 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 [facility] Comment on above: Result Comment: Elec tronically Signed By: Yovany AKHTAR MD\.br\Date and Time Signed: 06/06/23 09:32 EDT\.br\Electronically Co-Signed By: Maura Teixeira\.br\Date and Time Co-Signed: 06/06/23 09:28 EDT [facility] 05-31-2023 [facility] [id number]. 00CD:127 [facility] 06-20-2022 [facility] [id number] .00CD:127 [facility] [id number] .00CD:127 [facility] Patient Educationon 06-17-20 Patient Education Urology [...] Rhubarb. ? Beets. ? Potato chips and eritrean fries. ? Nuts. ? If you regularly take a diuretic medicine, make sure to eat at least 1?2 fruits or vegetables high in potassium each day. These include: ? Avocado. ? Banana. ? [place], prune, carrot, or tomato juice. ? Baked [...] Anjana cruz (more content not included)... Normal [facility] Urology Office/Clinic Noteon 06-17-2022 Urology Office/Clinic Note [...] with KUB Follow-up With When Contact Information GIOVANA CANTOR, ESHA [place] Within 6 months [address] [address]- Additional Instructions: w/ KUB Patient Education Dietary Guidelines to Help Prevent Kidney Stones ILucero, personally scribed for Dr. Akhtar on 06/17/2022 09:35:39. . Documentation recorded by the porfirioibshweta, Lucero Robles, accurately reflects the services(s) I performed and decisions made by me. Authenticated by Dr. Akhtar on 06/17/2022 09:37:11. 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 Normal [facility] Comment on above: Result Comment: [...] by: MANSOOR LIMA Date: 2022-06-16 18:56 Normal [facility] Patient Educationon 06-10-20 Patient Education Urology Dietary [...] Rhubarb. ? Beets. ? Potato chips and eritrean fries. ? Nuts. ? If you regularly take a diuretic medicine, make sure to eat at least 1?2 fruits or vegetables high in potassium each day. These include: ? Avocado. ? Banana. ? [place], prune, carrot, or tomato juice. ? Baked [...] other foods Seasoning blends with salt. Salad (more content not included)... Normal [facility] RAD - MISCon 06-10-2022 [facility] MIS [id number] .00CD:127 Normal [facility] Urology Office/Clinic Noteon 06-10-2022 Urology Office/Clinic Note Chief Complaint Follow up HPI Staff Pt is here for PO ESWL. Pt went to [place] [facility] 05/29/22 for right flank pain. CT [...] ESWL 08/13/2020 - CT done 05/29/22 at [facility] showed 2mm right distal ureteral calculus. Additional 6mm right UPJ calculus - S/P RT Lithotripsy 05/26/22 - KUB done 06/09/22 at [facility] stated there is no visible renal [...] office notified. 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 Normal [facility] Comment on above: Result Comment: [...] Date: 2022-06-09 17:41 Normal [facility] CBC AUTO DIFFon 05-29-2022 BASO # 0.1 103/ul Normal 0.0-0.[address] [facility] Comment on above: Performed By: #### C BC ####[facility] [address] [place], [place] [address]Dr. Wyatt Aldrich Basophils/100 WBC (Bld) 0.2 % Normal 0.2-2.[address] [facility] Comment on above: Performed By: #### C BC ####[facility] [address] [place], [place] [address]Dr. Wyatt Aldrich EO # 0.0 103/ul Normal 0.0-0.[address] [facility] Comment on above: Performed By: #### C BC ####[facility] [address] [place], [place] [address]Dr. Wyatt Aldrich Eosinophils/100 WBC (Bld) 0.2 % Critically low 0.9-7.0 [facility] Comment on above: Performed By: #### C BC ####[facility] [address] [place], [place] [address]Dr. Wyatt Aldrich Erythrocyte distribution width (RBC) [Ratio] 12.3 % Normal 11.0-15.[address] [facility] Comment on above: Performed By: #### C BC ####[facility] [address] [place], [place] [address]Dr. Wyatt Aldrich Hematocrit (Bld) [Volume fraction] 45.9 % Normal 42.0-54.[address] [facility] Comment on above: Performed By: #### C BC ####[facility] [address] [place], [place] [address]Dr. Wyatt Aldrich Hemoglobin (Bld) [Mass/Vol] 15.2 g/dL Normal 14.0-18.[address] [facility] Comment on above: Performed By: #### C BC ####[facility] [address] [place] [id number]. Wyatt Aldrich IG # 0.09 10e3/ul Critically high 0.00-0.03 [facility] Comment on above: Performed By: #### C BC ####[facility] [address] [place] [id number]. Wyatt Aldrich IG % 0.4 % Normal 0.0-0.5 [facility] Comment on above: Performed By: #### C BC ####[facility] [address] [place] [id number]. Wyatt Aldrich LYMPH # 1.1 103/ul Critically low 1.2-3.8 [facility] Comment on above: Performed By: #### C BC ####[facility] [address] [place] [address]DrCullen Aldrich Lymphocytes/100 WBC (Bld) 5.1 % Critically low 20.5-60.0 [facility] Comment on above: Performed By: #### C BC ####[facility] [address] [place] [id number] Aldrich MANUAL DIFF REQ NO Normal [facility] Comment on above: Performed By: #### C BC ####[facility] [address] [place] [id number]. Wyatt Aldrich MCH (RBC) [Entitic mass] 30.2 pg Normal 25.9-34.0 [facility] Comment on above: Performed By: #### C BC ####[facility] [address] [place] [id number]. Wyatt Aldrich MCHC (RBC) [Mass/Vol] 33.1 g/dL Normal 29.9-35.[address] [facility] Comment on above: Performed By: #### C BC ####[facility] [address] [place] [id number]. Wyatt Aldrich MCV (RBC) [Entitic vol] 91.3 fL Normal 80.0-94.0 [facility] Comment on above: Performed By: #### C BC ####[facility] [address] [place] [id number]. Wyatt Aldrich MONO # 1.4 103/ul Critically high 0.3-0.8 [facility] Comment on above: Performed By: #### C BC ####[facility] [address] [place] [id number]. Wyatt Aldrich Monocytes/100 WBC (Bld) 6.7 % Normal 1.7-12.[address] [facility] Comment on above: Performed By: #### C BC ####[facility] [address] [place] [id number]. Wyatt Aldrich NEUT # 18.5 103/ul Critically high 1.4-6.5 [facility] Comment on above: Performed By: #### C BC ####[facility] [address] [place] [address]Dr. Wyatt Aldrich Neutrophils/100 WBC (Bld) 87.4 % Critically high 43.0-75.[address] [facility] Comment on above: Performed By: #### C BC ####[facility] [address] [place] [id number]. Wyatt Aldrich Platelet mean volume (Bld) [Entitic vol] 9.3 fL Critically low 9.5-13.[address] [facility] Comment on above: Performed By: #### C BC ####[facility] [address] [place] [id number]. Wyatt Aldrich PLT 303 103/ul Normal 150-[address] [facility] Comment on above: Performed By: #### C BC ####[facility] [address] [place] [id number]. Wyatt Aldrich RBC 5.03 106/ul Normal 4.70-6.[address] [facility] Comment on above: Performed By: #### C BC ####[facility] [address] [place] [id number]. Wyatt Aldrich WBC 21.2 103/ul Critically high 4.0-11.0 [facility] Comment on above: Performed By: #### C BC ####[facility] [address] [place] [address]Dr. Wyatt Aldrich CT ABD/PELVIS WO CONon 05-29 [...] Date: 2022-05-29 17:32 Normal [facility] ER URINE PROFILEon 2 Bilirubin Ql (U) Negative Normal NEGATIVE [facility] Comment on above: Performed By: #### U MICRO, ERUR #### [facility] [address] [place] [address] [address] Wyatt Aldrich Clarity (U) CLEAR Normal CLEAR [facility] Comment on above: Performed By: #### U MICRO, ERUR #### [facility] [address] [place] [address] [address] Wyatt Aldrich Color (U) LT. YELLOW Normal YELLOW [facility] Comment on above: Performed By: #### U MICRO, ERUR #### [facility] [address] [place] [address] [address] Wyatt Aldrich ERUAHD A micrscopic examination will be performed if indicated. Normal [facility] Comment on above: Performed By: #### U MICRO, ERUR #### [facility] [address] [place] [address] [address] Wyatt Aldrich Glucose Ql (U) Negative Normal NEGATIVE [facility] Comment on above: Performed By: #### U MICRO, ERUR #### [facility] [address] [place] [address] [address] Wyatt Aldrich Hemoglobin Ql (U) TRACE-INTACT Abnormal NEGATIVE [facility] Comment on above: Performed By: #### U MICRO, ERUR #### [facility] [address] [address] [address] Wyatt Aldrich Ketones Ql (U) Negative Normal NEGATIVE [facility] Comment on above: Performed By: #### U MICRO, ERUR #### [facility] [address] [place] [address] Dr. Wyatt Aldrich LEUKOCYTES Negative Normal NEGATIVE [facility] Comment on above: Performed By: #### U MICRO, ERUR #### [facility] [address] [place] [address] Dr. Wyatt Aldrich Nitrite Ql (U) Negative Normal NEGATIVE [facility] Comment on above: Performed By: #### U MICRO, ERUR #### [facility] [address] [place] [address] Dr. Wyatt Aldrich pH (U) 7.0 [pH] Normal 5-9 [facility] Comment on above: Performed By: #### U MICRO, ERUR #### [facility] [address] [address] [address] Wyatt Aldrich SPEC GRAVITY 1.020 Normal 1.005-<=1.025 [facility] Comment on above: Performed By: #### U MICRO, ERUR #### [facility] [address] [place] [address] Dr. Wyatt Aldrich UA PROTEIN Negative Normal NEGATIVE/ TRACE [facility] Comment on above: Performed By: #### U MICRO, ERUR #### [facility] [address] [place] [address] Dr. Wyatt Aldrich UR MICRO IND INDICATED Normal [facility] Comment on above: Performed By: #### U MICRO, ERUR #### [facility] [address] [place] [address] Dr. Wyatt Aldrich Urobilinogen Qn (U) 0.2 {Sharon'U}/dL Normal 0.2 - 1. 0 [facility] Comment on above: Performed By: #### U MICRO, ERUR #### [facility] [address] [place] [address] Dr. Wyatt Aldrich PROF 14(COMP METB)on 022 Albumin [Mass/Vol] 3.9 g/dL Normal 3.4-5.0 [facility] Comment on above: Performed By: #### C MP #### [facility] [address] [place] [address] Dr. Wyatt Aldrich Albumin/Globulin [Mass ratio] 1.1 {ratio} Normal [facility] Comment on above: Performed By: #### C MP #### [facility] [address] [place] [address] Dr. Wyatt Aldrich ALP [Catalytic activity/Vol] 70 U/L Normal 46-116 [facility] Comment on above: Performed By: #### C MP #### [facility] [address] [place] [address] Dr. Wyatt Aldrich ALT [Catalytic activity/Vol] 38 U/L Normal 16-63 [facility] Comment on above: Performed By: #### C MP #### [facility] [address] [place] [address] Dr. Wyatt Aldrich Anion gap [Moles/Vol] 12.6 mmol/L Normal Th [facility] Comment on above: Performed By: #### C MP #### [facility] [address] [place] [address] Dr. Wyatt Aldrich AST [Catalytic activity/Vol] 20 U/L Normal 15-37 [facility] Comment on above: Performed By: #### C MP #### [facility] [address] [place] [address] Dr. Wyatt Aldrich Bilirubin [Mass/Vol] 0.6 mg/dL Normal 0.2-1.0 [facility] Comment on above: Performed By: #### C MP #### [facility] [address] [place] [address] Dr. Wyatt Aldrich Calcium [Mass/Vol] 8.7 mg/dL Normal 8.5-10.1 [facility] Comment on above: Performed By: #### C MP #### [facility] [address] [place] [address] Dr. Wyatt Aldrich Chloride [Moles/Vol] 95 mmol/L Critically low 98-107 [facility] Comment on above: Performed By: #### C MP #### [facility] [address] [place] [address] Dr. Wyatt Aldrich CO2 [Moles/Vol] 29.9 mmol/L Normal 21.0-32.0 [facility] Comment on above: Performed By: #### C MP #### [facility] [address] [place] [address] Dr. Wyatt Aldrich Creatinine [Mass/Vol] 1.04 mg/dL Normal 0.70-1.30 [facility] Comment on above: Performed By: #### C MP #### [facility] [address] [place] [address] Dr. Wyatt Aldrich EGFR-AF CAMBODIAN >60 Normal >=60 [facility] Comment on above: Performed By: #### C MP #### [facility] [address] [place] [address] Dr. Waytt Aldrich EGFR-NON AF CAMBODIAN >60 Normal >=60 [facility] Comment on above: Performed By: #### C MP #### [facility] [address] [place] [address] Dr. Wyatt Aldrich Globulin (S) [Mass/Vol] 3.4 g/dL Normal [facility] Comment on above: Performed By: #### C MP #### [facility] [address] [place] [address] Dr. Wyatt Aldrich Glucose [Mass/Vol] 148 mg/dL Critically high 74-106 [facility] Comment on above: Performed By: #### C MP #### [facility] [address] [address] [address] Wyatt Aldrich Potassium [Moles/Vol] 4.5 mmol/L Normal 3.5-5.1 [facility] Comment on above: Performed By: #### C MP #### [facility] [address] [place] [address] Dr. Wyatt Aldrich Protein [Mass/Vol] 7.3 g/dL Normal 6.4-8.2 [facility] Comment on above: Performed By: #### C MP #### [facility] [address] [address] [address] Wyatt Aldrich Sodium [Moles/Vol] 133 mmol/L Critically low 136-[address] [facility] Comment on above: Performed By: #### C MP #### [facility] [address] [place] [address] Dr. Wyatt Aldrich Urea nitrogen [Mass/Vol] 15.0 mg/dL Normal 7.0-18.0 [facility] Comment on above: Performed By: #### C MP #### [facility] [address] [place] [address] Dr. Wyatt Aldrich Urea nitrogen/Creatinine [Mass ratio] 14.4 mg/mg Normal [facility] Comment on above: Performed By: #### C MP #### [facility] [address] [place] [address] Dr. Wyatt Aldrich URINE MICROSCOPIC ONLYon BACTERIA NONE SEEN Normal NONE SEEN [facility] Comment on above: Performed By: #### U MICRO, ERUR #### [facility] [address] [place] [address] Dr. Wyatt Aldrich Bacteria identified Cx Nom (U) NOT INDICATED Normal [facility] Comment on above: Performed By: #### U MICRO, ERUR #### [facility] [address] [place] [address] Dr. Wyatt Aldrich CAST NONE SEEN Normal NONE SEEN [facility] Comment on above: Performed By: #### U MICRO, ERUR #### [facility] [address] [place] [address] Dr. Wyatt Aldrich Crystals LM Nom (Urine sed) NONE SEEN Normal NONE SEEN [facility] Comment on above: Performed By: #### U MICRO, ERUR #### [facility] [address] [address] [address] Wyatt Aldrich Epithelial cells LM Ql (Urine sed) NONE SEEN Normal NONE SEEN /RARE [facility] Comment on above: Performed By: #### U MICRO, ERUR #### [facility] [address] [address] [address] Wyatt Aldrich MUCOUS NONE SEEN Normal NONE SEEN [facility] Comment on above: Performed By: #### U MICRO, ERUR #### [facility] [address] [place] [address] Dr. Wyatt Aldrich RBC 2-5 Abnormal 0-2 [facility] Comment on above: Performed By: #### U MICRO, ERUR #### [facility] [address] [address] [address] Wyatt Aldrich WBC NONE SEEN Normal NONE SEEN [facility] Comment on above: Performed By: #### U MICRO, ERUR #### [facility] [address] [place] [address] Dr. Wyatt Aldrich T4 LABCORPon 01-29-2022 T4 [Mass/Vol] 9.1 ug/dL Normal 4.5-12.0 [facility] Comment on above: Performed By: #### T 4LC ####[facility] [address] [address]Dr. Wyatt Aldrich CBC AUTO DIFFon 01-28-2022 BASO # 0.1 103/ul Normal 0.0-0.1 [facility] Comment on above: Performed By: #### C BC ####[facility] [address] [address]Dr. Wyatt Aldrich Basophils/100 WBC (Bld) 0.6 % Normal 0.2-2.0 [facility] Comment on above: Performed By: #### C BC ####[facility] [address] [address]Dr. Wyatt Aldrich EO # 0.2 103/ul Normal 0.0-0.[address] [facility] Comment on above: Performed By: #### C BC ####[facility] [address] [place], [place] [address]Dr. Wyatt Valdemar Eosinophils/100 WBC (Bld) 2.4 % Normal 0.9-7.[address] [facility] Comment on above: Performed By: #### C BC ####[facility] [address] [place], [place] [address]Dr. Wyatt Aldrich Erythrocyte distribution width (RBC) [Ratio] 12.5 % Normal 11.0-15.[address] [facility] Comment on above: Performed By: #### C BC ####[facility] [address] [place], [place] [address]Dr. Wyatt Aldrich Hematocrit (Bld) [Volume fraction] 43.5 % Normal 42.0-54.[address] [facility] Comment on above: Performed By: #### C BC ####[facility] [address] [place], [place] [address]Dr. Wyatt Aldrich Hemoglobin (Bld) [Mass/Vol] 14.4 g/dL Normal 14.0-18.[address] [facility] Comment on above: Performed By: #### C BC ####[facility] [address] [place], [place] [address]Dr. Jossielalo Valdemar IG # 0.03 10e3/ul Normal 0.00-0.[address] [facility] Comment on above: Performed By: #### C BC ####[facility] [address] [place], [place] [address]Dr. Wyatt Aldrich IG % 0.4 % Normal 0.0-0.[address] [facility] Comment on above: Performed By: #### C BC ####[facility] [address] [place], [place] [address]Dr. Wyatt Aldrich LYMPH # 2.1 103/ul Normal 1.2-3.[address] [facility] Comment on above: Performed By: #### C BC ####[facility] [address] [place], [place] [address]Dr. Wyatt Aldrich Lymphocytes/100 WBC (Bld) 24.8 % Normal 20.5-60.[address] [facility] Comment on above: Performed By: #### C BC ####[facility] [address] [address]Dr. Wyatt Aldrich MANUAL DIFF REQ NO Normal [facility] Comment on above: Performed By: #### C BC ####[facility] [address] [address]Dr. Wyatt Aldrich MCH (RBC) [Entitic mass] 30.6 pg Normal 25.9-34.[address] [facility] Comment on above: Performed By: #### C BC ####[facility] [address] [place], [place] [address]Dr. Wyatt Aldrich MCHC (RBC) [Mass/Vol] 33.1 g/dL Normal 29.9-35.[address] [facility] Comment on above: Performed By: #### C BC ####[facility] [address] [place], [place] [address]Dr. Wyatt Aldrich MCV (RBC) [Entitic vol] 92.6 fL Normal 80.0-94.[address] [facility] Comment on above: Performed By: #### C BC ####[facility] [address] [place], [place] [address]Dr. Wyatt Aldrich MONO # 0.6 103/ul Normal 0.3-0.[address] [facility] Comment on above: Performed By: #### C BC ####[facility] [address] [place], [place] [address]Dr. Wyatt Aldrich Monocytes/100 WBC (Bld) 7.7 % Normal 1.7-12.[address] [facility] Comment on above: Performed By: #### C BC ####[facility] [address] [place], [place] [address]Dr. Wyatt Aldrich NEUT # 5.3 103/ul Normal 1.4-6.[address] [facility] Comment on above: Performed By: #### C BC ####[facility] [address] [place], [place] [address]Dr. Wyatt Aldrich Neutrophils/100 WBC (Bld) 64.1 % Normal 43.0-75.0 [facility] Comment on above: Performed By: #### C BC ####[facility] [address] [address]Dr. Wyatt Aldrich Platelet mean volume (Bld) [Entitic vol] 9.4 fL Critically low 9.5-13.5 [facility] Comment on above: Performed By: #### C BC ####[facility] [address] [address]DrCullen Aldrich PLT 280 103/ul Normal 150-[address] [facility] Comment on above: Performed By: #### C BC ####[facility] [address] [address]DrCullen Aldrich RBC 4.70 106/ul Normal 4.70-6.[address] [facility] Comment on above: Performed By: #### C BC ####[facility] [address] [address]DrCullen Aldrich WBC 8.3 103/ul Normal 4.0-11.[address] [facility] Comment on above: Performed By: #### C BC ####[facility] [address] [address]Dr. Wyatt Aldrich FREE T3on 01-28-2022 FREE T3 2.70 pg/mlL Normal 2.18-3.98 [facility] Comment on above: Performed By: #### L IPID, CMP, TSH, FT3 ####[facility] [address] [address]DrCullen Aldrich GLYCOHEMOGLOBIN A1Con 2021 ADA RECOMMENDATION SEE BELOW Normal [facility] Comment on above: Result Comment: ADA RECOMMENDED LIMIT 4.0 - 6.0 ADA THERAPEUTIC TARGET < 7.0 ACTION SUGGESTED > 7.0 Performed By: #### A 1C #### [facility] [address] [address] [address] Wyatt Aldrich Glucose [Mass/Vol] 143 mg/dL Normal [facility] Comment on above: Performed By: #### A 1C #### [facility] [address] [place], [place] [address] Dr. Wyatt Aldrich HbA1c (Bld) [Mass fraction] 6.6 % Critically high 4.5-6.2 [facility] Comment on above: Performed By: #### A 1C #### [facility] [address] [place], [place] [address] Dr. Wyatt Aldrich LIPID PROFILEon 01-28-2022 CHOL-HDL RATIO NORM SEE BELOW Normal [facility] Comment on above: Result Comment: 3.3 - 4.4 LOW RISK 4.4 - 7.1 AVERAGE RISK 7.1 - 11.0 MODERATE RISK >11.0 HIGH RISK Performed By: #### L IPID, CMP, TSH, FT3 ####[facility] [address] [address]DrCullen Aldrich Cholesterol [Mass/Vol] 176 mg/dL Normal <=200 [facility] Comment on above: Performed By: #### L IPID, CMP, TSH, FT3 ####[facility] [address] [address]DrCullen Aldrich Cholesterol in HDL [Mass/Vol] 35 mg/dL Critically low 40-60 [facility] Comment on above: Performed By: #### L IPID, CMP, TSH, FT3 ####[facility] [address] [id number]. Wyatt Aldrich Cholesterol in LDL [Mass/Vol] 94.4 mg/dL Normal [facility] Comment on above: Performed By: #### L IPID, CMP, TSH, FT3 ####[facility] [address] [id number]. Wyatt Aldrich Cholesterol.total/Cho lesterol in HDL [Mass ratio] 5.0 {ratio} Normal [facility] Comment on above: Performed By: #### L IPID, CMP, TSH, FT3 ####[facility] [address] [address]Dr. Wyatt Aldrich HDL NORMAL > or = 60 mg/dl - LO W CARDIOVASCULAR RISK <40 mg/dl - HIGH CARDIOVASCULAR RISK Normal [facility] Comment on above: Performed By: #### L IPID, CMP, TSH, FT3 ####[facility] [address] [place], [place] [address]Tc. Wyatt Aldrich LDL CALC NORMAL SEE BELOW Normal [facility] Comment on above: Result Comment: <100 mg/dl OPTIMAL 100 - 129 mg/dl NEAR OR ABOVE OPTIMAL 130 - 159 mg/dl BORDERLINE HIGH 160 - 189 mg/dl HIGH >190 mg/dl VERY HIGH Performed By: #### L IPID, CMP, TSH, FT3 ####[facility] [address] [place], [place] [address]YxCullen Aldrich Triglyceride [Mass/Vol] 233 mg/dL Critically high <=150 [facility] Comment on above: Performed By: #### L IPID, CMP, TSH, FT3 ####[facility] [address] [address]Dr. Wyatt Aldrich VLDL CALC 46.6 mg/dL Normal [facility] Comment on above: Performed By: #### L IPID, CMP, TSH, FT3 ####[facility] [address] [id number]. Wyatt Aldrich OCC BLD IMMUNO SCREENon 01-03 OCCULT BLOOD Negative Normal NEGATIVE [facility] Comment on above: Performed By: #### O BSCRN #### [facility] [id number] Wyatt Aldrich PROF 14(COMP METB)on 022 Albumin [Mass/Vol] 3.4 g/dL Normal 3.4-5.0 [facility] Comment on above: Performed By: #### L IPID, CMP, TSH, FT3 ####[facility] [address] [id number] Aldrich Albumin/Globulin [Mass ratio] 1.0 {ratio} Normal [facility] Comment on above: Performed By: #### L IPID, CMP, TSH, FT3 ####[facility] [address] [id number] Aldrich ALP [Catalytic activity/Vol] 65 U/L Normal 46-116 [facility] Comment on above: Performed By: #### L IPID, CMP, TSH, FT3 ####[facility] [address] [address]Dr. Wyatt Aldrich ALT [Catalytic activity/Vol] 45 U/L Normal 16-[address] [facility] Comment on above: Performed By: #### L IPID, CMP, TSH, FT3 ####[facility] [address] [address]Dr. Wyatt Aldrich Anion gap [Moles/Vol] 9.7 mmol/L Normal [facility] Comment on above: Performed By: #### L IPID, CMP, TSH, FT3 ####[facility] [address] [place], [place] [address]Dr. Wyatt Aldrich AST [Catalytic activity/Vol] 20 U/L Normal 15-37 [facility] Comment on above: Performed By: #### L IPID, CMP, TSH, FT3 ####[facility] [address] [address]Dr. Wyatt Aldrich Bilirubin [Mass/Vol] 0.4 mg/dL Normal 0.2-1.[address] [facility] Comment on above: Performed By: #### L IPID, CMP, TSH, FT3 ####[facility] [address] [address]Dr. Wyatt Aldrich Calcium [Mass/Vol] 8.5 mg/dL Normal 8.5-10.1 [facility] Comment on above: Performed By: #### L IPID, CMP, TSH, FT3 ####[facility] [address] [address]Dr. Wyatt Aldrich Chloride [Moles/Vol] 101 mmol/L Normal 98-[address] [facility] Comment on above: Performed By: #### L IPID, CMP, TSH, FT3 ####[facility] [address] [address]Dr. Wyatt Aldrich CO2 [Moles/Vol] 33.3 mmol/L Critically high 21.0-32.[address] [facility] Comment on above: Performed By: #### L IPID, CMP, TSH, FT3 ####[facility] [address] [address]Dr. Wyatt Aldrich Creatinine [Mass/Vol] 0.77 mg/dL Normal 0.70-1.30 [facility] Comment on above: Performed By: #### L IPID, CMP, TSH, FT3 ####[facility] [address] [address]Dr. Wyatt Valdemar EGFR-AF CAMBODIAN >60 Normal >=60 [facility] Comment on above: Performed By: #### L IPID, CMP, TSH, FT3 ####[facility] [address] [place], [place] [address]Dr. Wyatt Valdemar EGFR-NON AF CAMBODIAN >60 Normal >=60 [facility] Comment on above: Performed By: #### L IPID, CMP, TSH, FT3 ####[facility] [address] [place], [place] [address]Dr. Wyatt Valdemar Globulin (S) [Mass/Vol] 3.3 g/dL Normal [facility] Comment on above: Performed By: #### L IPID, CMP, TSH, FT3 ####[facility] [address] [place], [place] [address]Dr. Wyatt Valdemar Glucose [Mass/Vol] 137 mg/dL Critically high 74-[address] [facility] Comment on above: Performed By: #### L IPID, CMP, TSH, FT3 ####[facility] [address] [place], [place] [address]Dr. Wyatt Aldrich Potassium [Moles/Vol] 4.0 mmol/L Normal 3.5-5.1 [facility] Comment on above: Performed By: #### L IPID, CMP, TSH, FT3 ####[facility] [address] [place], [place] [address]Dr. Wyatt Aldrich Protein [Mass/Vol] 6.7 g/dL Normal 6.4-8.2 [facility] Comment on above: Performed By: #### L IPID, CMP, TSH, FT3 ####[facility] [address] [place] [id number]. Wyatt Aldrich Sodium [Moles/Vol] 140 mmol/L Normal 136-145 [facility] Comment on above: Performed By: #### L IPID, CMP, TSH, FT3 ####[facility] [address] [id number]. Wyatt Aldrich Urea nitrogen [Mass/Vol] 13.0 mg/dL Normal 7.0-18.0 [facility] Comment on above: Performed By: #### L IPID, CMP, TSH, FT3 ####[facility] [address] [address]Dr. Wyatt Aldrich Urea nitrogen/Creatinine [Mass ratio] 16.9 mg/mg Normal [facility] Comment on above: Performed By: #### L IPID, CMP, TSH, FT3 ####[facility] [address] [address]Dr. Wyatt Aldrich TSHon 01-28-2022 TSH 5.562 uIU/mL Critically high 0.358-3.740 [facility] Comment on above: Performed By: #### L IPID, CMP, TSH, FT3 ####[facility] [address] [address]Dr. Wyatt Aldrich TSH RANGE SEE BELOW Normal [facility] Comment on above: Result Comment: <0.3 4 UIU/ml HYPERTHYROID 0.34-5.60 UIU/ml EUTHYROID >5.60 UIU/ml HYPOTHYROID Performed By: #### L IPID, CMP, TSH, FT3 ####[facility] [address] [id number]. Wyatt Aldrich XR KUB 1 VIEWon 01-20-2022 [...] by: MANSOOR LIMA Date: 2022-01-20 14:12 Normal [facility] MRI LSPINE WO W CONon 2021 MRI [...] by: TANISHA CHIU Date: 2021-10-04 11:23 Normal [facility] XR LSPINE MIN 4 VIEWSon 09-05 XR [...] 1. Progression of degenerative disc disease since 2016. 2. No acute bone abnormality. Electronically authenticated by: SOLO SAVAGE Date: 2021-09-27 11:31 Normal [facility] Social History Date Type Detail Facility Start: 01-15-2021 End: 06-06-2023 Tobacco smoking status Ex-smoker (finding) [facility] Tobacco smoking status Never [facility] Sex Assigned At Male [facility] Vital Signs Date Time Vital Sign Value Performing Clinician Jessi chowdhury 06-06-2023 08:48-0400 Blood Pressure Location Y[employer] [employer] [facility] 06-06-2023 08:48-0400 Diastolic blood pressure 66 mm[Hg] Yovany [employer] [facility] 06-06-2023 08:48-0400 Heart rate 83 /min Yovany [employer] [facility] 06-06-2023 08:48-0400 Systolic blood pressure 142 mm[Hg] Yovany [employer]ux [facility] 06-17-2022 09:14-0400 Blood Pressure Location [place] [facility] 06-17-2022 09:14-0400 Diastolic blood pressure 96 mm[Hg] Yovany COOK [facility] 06-17-2022 09:14-0400 Heart rate 67 /min Yovany COOK [facility] 06-17-2022 09:14-0400 Systolic blood pressure 159 mm[Hg] Yovany COOK [facility] 06-10-2022 09:54-0400 Blood Pressure Location Yovany [employer] [facility] 06-10-2022 09:54-0400 Diastolic blood pressure 102 mm[Hg] Yovany COOK [facility] 06-10-2022 09:54-0400 Heart rate 68 /min Yovany COOK [facility] 06-10-2022 09:54-0400 Systolic blood pressure 166 mm[Hg] Yovany COOK [facility] 01-21-2022 08:44-0400 Blood Pressure Location Yovany [employer] [facility] 01-21-2022 08:44-0400 Diastolic blood pressure 87 mm[Hg] Yovany COOK [facility] 01-21-2022 08:44-0400 Heart rate 72 /min Yovany COOK [facility] 01-21-2022 08:44-0400 Systolic blood pressure 140 mm[Hg] Yovany AKHTAR [facility] Functional Status Date Assessment Result Facility 06-06-2023 Functional Status N/A [facility] 06-17-2022 Functional Status N/A [facility] 06-10-2022 Functional Status N/A [facility] Clinical Notes 01-21-2022 to 06-06-2023 Laboratory [...] include: ?8 oz (237 mL) of milk, zpilcae-mwihzxcjldlu-ynjcb milk, and calcium-fortifiedfruit juice. Calcium-fortified means that [...] ?Spinach (cooked), rhubarb, beets, sweet potatoes, and [place] chard. ?Peanuts. ?Potato chips, eritrean fries, and baked potatoes with skin on. ?Nuts and nut products. ?Chocolate. If you regularly take a diuretic medicine, make sure to eat at least 1 or 2 servings of fruits or vegetables that are high in potassium each day. These include: ?Avocado. ?Banana. ?[place], prune, carrot, or tomato juice. ?Baked potato. [...] magnesium, fish oil, or vitamin B6. Take vqsc-dhi-xisksld and prescription medicines only as told by [...] Casseroles. Pizza. Lasagna. Frozen meals. Potato chips. Citizen Of [place] fries. The items listed above may not [...] provider. Document Revised: 05/02/2022 Document Reviewed: 05/02/2022 [employer] Patient Education 2022 [employer]. Follow Up Care 01/21/2022 09:03:45 With:GIOVANA CANTOR, Yovany Kwan, URL Address: [facility] [address] [place] [id number]- When:Within 1 Year(s) Comments:claire/[place] [facility] Andrew 06-17-2022 Hospital Discharge instructions Patient Education [...] include: ?Spinach. ?Rhubarb. ?Beets. ?Potato chips and eritrean fries. ?Nuts. If you regularly take a diuretic medicine, make sure to eat at least 1 2 fruits or vegetables high in potassium each day. These include: ?Avocado. ?Banana. ?[place], prune, carrot, or tomato juice. ?Baked potato. [...] Casseroles. Pizza. Lasagna. Frozen meals. Potato chips. Citizen Of [place] fries. Summary You can reduce your risk [...] 12/16/2011 Document Revised: 12/11/2019 Document Reviewed: 08/01/2017 [employer] Patient Education 2020 [employer]. Follow Up Care 06/10/2022 10:24:22 With:GIOVANA CANTOR, Yovany Kwan, URL Address: [address] [place], [place] [id number]- When:6 months Comments:w/ [place] [facility] 06-10-2022 Hospital Discharge instructions Patient Education [...] include: ?Spinach. ?Rhubarb. ?Beets. ?Potato chips and eritrean fries. ?Nuts. If you regularly take a diuretic medicine, make sure to eat at least 1 2 fruits or vegetables high in potassium each day. These include: ?Avocado. ?Banana. ?[place], prune, carrot, or tomato juice. ?Baked potato. [...] Casseroles. Pizza. Lasagna. Frozen meals. Potato chips. Citizen Of [place] fries. Summary You can reduce your risk [...] 12/16/2011 Document Revised: 12/11/2019 Document Reviewed: 08/01/2017 [employer] Patient Education 2020 [employer]ak[employer]. Follow Up Care 05/30/2022 09:25:01 With:GIOVANA CANTOR, Yovany Kwan, URL Address: [address] [place] [address] [place] [id number]- When:2 weeks Comments:[place] [facility] Andrew 01-21-2022 Hospital Discharge instructions [...] urethra. Follow these instructions at home: Take jwfl-[id number]-tzodxak and prescription medicines only as told by [...] 08/21/2006 Document Revised: 07/16/2019 Document Reviewed: 09/25/2017 [employer] Patient Education 2020 Speak[employer]. Follow Up Care 01/15/2021 08:45:48 With:COOK Yovany CANTOR, URL Address: [address] [place] [address] [place] [id number]- When:01/21/2023 Comments:with PSA and x-ray [facility] Evaluation + Plan note Future Appointments Appointment Date:02/24/2023 08:00:00 AM Scheduled Provider:Yovany AKHTAR MD Location:[facility] Appointment Type:URO Office Visit [facility] Evaluation + Plan note Future Appointments Appointment Date:02/24/2023 08:00:00 AM Scheduled Provider:Yovany AKHTAR MD Location:[facility] Appointment Type:URO Office Visit Future Scheduled TestsPT & PTT 04/20/22BUN 04/20/22Creatinine 04/20/22Electrolyte Panel 04/20/22CBC w/ Auto Diff 04/20/22 [facility] Evaluation + Plan note Future Appointments Appointment Date:06/17/2022 09:15:00 AM Scheduled Provider:Yovany AKHTAR MD Location:[facility] [place] Appointment Type:URO Office Visit Appointment Date:02/24/2023 08:00:00 AM Scheduled Provider:Yovany AKHTAR MD Location[facility] Appointment Type:URO Office Visit [facility] Evaluation + Plan note Future Appointments Appointment Date:06/11/2024 08:00:00 AM Scheduled Provider:Yovany AKHTAR MD Location:[facility] Appointment Type:URO Office Visit [facility] Hospital course Narrative No data available for this section [facility] Hospital Discharge instructions No data available for this section [facility] Progress note No data available for this section [facility] Summary Purpose Family History No Family History Records Found No data available for this section No Family History Records FoundNo Family History Records Found Advance Directives No Advanced Directives Records FoundNo Advanced Directives Records FoundNo Advanced Directives Records Found Additional Source Comments Care Team (unrecognized sect ion and content) Personnel Name: Nancy Fernandez MD Address: [address] [place] [address] Personnel Name: Nancy Fernandez MD Address: Address: [address] [place] [address] Personnel Name: Nancy Fernandez MD Address: Address: [address] [place] [address] Personnel Name: Remi Fernandez MDlas Address: Address: [address] [place] [address] (unrecognized sect ion and content) No Status Records FoundNo Status Records FoundNo Status Records Found INFORMATION SOURCE (unrecogn ized section and content) DATE CREATED AUTHOR 07/07/2022 [facility] DATE CREATED AUTHOR AUTHOR'S ORGANIZ ATION 06/08/2023 [facility] DATE CREATED AUTHOR AUTHOR'S ORGANIZ ATION 12/26/2023 [facility] FOR RECORDS PERTAINING TO PATIENTS WHO ARE [...] BE BASED ON THE PRIMARY CLINICAL RECORDS. [employer] provides no warranty or guarantee of the accuracy or completeness of information in this document.
[2024-02-05] MEDS: BUPIVACAINE HCL 0.25% PF 25 MG/10 ML VIAL INJ (09:40)
[2024-02-05] MEDS: 0.9 % SODIUM CHLORIDE 10 ML SYRINGE - SALINE FLUSH INJ (09:40)
[2024-02-05] MEDS: DEXAMETHASONE SOD PHOS 10 MG/ML VIAL INJ (09:41)
[2024-02-05] MEDS: IOHEXOL 240 MG/ML - 10 ML VIAL INJ (09:41)
[2024-02-05] MEDS: LIDOCAINE HCL 2% PF 100 MG/5 ML VIAL INJ (09:43)
--- NOTE | 2024-02-05 09:44 | P.ON_ITS ---
Date of procedure: 02/05/24 Pre-op diagnosis: Lumbar stenosis with neurogenic claudication Post-op diagnosis: same as pre-op Procedure: Procedure: Left L3-4, L4-5 transforaminal epidural steroid injection Medications: Bupivacaine 0.25% 2cc, lidocaine 2% 1cc, kenalog 80mg The patient was seen and examined in the preoperative holding area.? Informed consent was obtained and placed on the chart.? Patient was brought to the medical procedure unit and placed in the prone position where a timeout was completed verifying the correct patient, procedure site, position, and planned special equipment using sterile aseptic technique.? Under direct fluoroscopic visualization a 25-gauge Quincke tipped spinal needle was advanced to the designated neural foramen where contrast dye was injected to show adequate spread.? The needle was inserted at level left L3-4. There was no evidence of vascular or adverse uptake.? Epidural spread was appreciated.? The above- mentioned injectate was then placed in a 1.5 mL aliquot preceded by negative aspiration.? The needle was removed. The needle was inserted and the procedure repeated at level left L4-5.? The surgery site was covered.? Patient was taken to the postprocedural recovery area and monitored for an appropriate length of time before found suitable for discharge in the accompaniment of a responsible adult. Anesthesia: Local Surgeon: Heather Turcios Pathology: none sent Condition: stable Disposition: no change
[2024-02-05 09:45] VITALS: BP 161/86; BP 164/87; PULSE 63; PULSE 65; O2SAT 95
== END 2024-02-05 09:48 | disposition home or self-care (01) ==
LOC: SURGOUT 08:56
PROVIDERS: PCP Family Medicine; Visit Provider Anesthesiology
DX: M48.062 Spinal stenosis, lumbar region with neurogenic claudication (principal); Z79.84 Long term (current) use of oral hypoglycemic drugs
CPT/HCPCS: 36415; 64483; 64484; 82948; J1100; Q9966

== ENCOUNTER 2024-02-19 06:57 | Day surgery (SDC) | payer BC, SELFPAY ==
--- OUTSIDE RECORDS SUMMARY | 2024-02-19 07:00 | XMS_ITS | CCD ---
Author Organization [facility] Care Team Providers Care Spotlight Operator Name Role Phone Nancy Fernandez Primary Care [...] Unavailable COOK, DR YOVANY Kwan Attending Unavailable GIOVANA, DR [...] KIM Attending Unavailable NANCY FERNANDEZ Referring Unavailable Karolina CANTOR, Heather Voss Attending Unavailable Allergies Allergy Classification Reported Allergen(s) Allergy Type Date of Onset Reaction(s) Facility (6 sources) Acetaminophen / HYDROcodone; Translations: [acetaminophen-hyd rocodone] Drug Allergy Hyperactive behavior (finding) [facility] Andrew Medications Current Medications Medication Drug [...] # 30 cap(s), Refills(s) 2, Pharmacy: [facility] #[id number], 188, cm, 06/10/22 9:57:00 EDT, Height/Length Dosing, [...] 02-19-2019 Episodic Other aftercare (1 source) Other salvage determiner (current) drug therapy; Translations: [OTH LONGTERM CURRENT DRUG THERAPY] Onset: 05-31-20 Episodic Other aftercare (1 source) ocean transportation intermediary (current) use of aspirin; Translations: [LONGTERM CURRENT USE OF ASPIRIN] Onset: 05-31-20 Episodic [...] object(s), not elsewhere classified, initial encounter; Translations: [[facility] OT SHRP OB NOT ELSW CLASS INI] [...] Interpretation Reference Range Facility Screenson 06-07-2023 Screens [id number]# 1.00CD:127 [facility] Ambulatory Visit Summaryon 1 Ambulatory Visit Summary LIZ HERNANDEZ :1965 Visit Date:06/06/2023 Ambulatory Visit Instructions Your Diagnosis BPH (benign prostatic hyperplasia) Kidney stone Tests Performed Urnls Dip Stick Auto w/o Microscopy POC 85591 XR Abdomen 1 View -- Results Pending [...] Yovany AKHTAR MD [facility] Educationon 06-06-20 Patient Education Nephrology [...] Spinach (cooked), rhubarb, beets, sweet potatoes, and Belgian chard. ? Peanuts. ? Potato chips, syrian fries, and baked potatoes with skin on. ? Nuts and nut products. ? Chocolate. ? If you regularly take a diuretic medicine, make sure to eat at least 1 or 2 servings of fruits or vegetables that are high in potassium each day. These include: ? Avocado. ? Banana. ? Bigfork, prune, carrot, or tomato juice. ? Baked [...] fish oil, or vitamin B6. ? Take fxos-izk-nmotsvk and prescription medicines only as told by your health care provider. These include supplements. What foods should I limit? Limit your in (more content not included)... Normal [facility] Urology Office/Clinic Noteon 06-06-2023 Urology [...] With When Contact Information GIOVANA CANTOR, Yovany wKan, URL In [address] [address]- Additional Instructions: w/KUB Patient Education Dietary Guidelines [...] with voice recognition artificial intelligence software, specifically [employer], hulu and or e[employer]. Substitutions may have occurred due to the inherent limitations of voice recognition and artificial intelligence software. Problem List/Past Medical History Ongoing BMI 40.0-44.9, adult BPH (benign prostatic hyperplasia) Chronic anticoagulation Dermatofibroma of left upper arm Diabetes mellitus type 2, noninsulin dependent Elevated PSA Hx of salvage determiner use of blood thinners Kidney stone Nocturia Osteoarthritis Historical GERD (gastroesophageal reflux disease) Neoplasm of uncertain behavior of skin Thrombophlebitis of lower extremities Procedure/Surgical History ESWL - Extracorporeal shockwave lithotripsy for renal calculus (05/26/2022), ESWL - Extracorporeal shockwave lithotripsy for renal calculus (08/13/2020), Closure of anal fistula, Dental surgical procedure, Gallbladder, (more content not included)... Normal [facility] Comment on above: Result Comment: Elec tronically Signed By: Yovany AKHTAR MD\.br\Date and Time Signed: 06/06/23 09:32 EDT\.br\Electronically Co-Signed By: Maura Teixeira\.br\Date and Time Co-Signed: 06/06/23 09:28 EDT RAD - MISCon 05-31-2023 RAD - MISC [id number]. 00CD:127 Normal [facility] RAD - MISCon 06-20-2022 [facility] [id number] .00CD:127 Normal [facility] [id number]#1 .00CD:127 Normal [facility] Patient Educationon 06-17-20 Patient Education Urology [...] Rhubarb. ? Beets. ? Potato chips and syrian fries. ? Nuts. ? If you regularly take a diuretic medicine, make sure to eat at least 1?2 fruits or vegetables high in potassium each day. These include: ? Avocado. ? Banana. ? Bigfork, prune, carrot, or tomato juice. ? Baked [...] Anjana cruz (more content not included)... Normal [facility] Urology Office/Clinic Noteon 06-17-2022 Urology [...] Contact Information GIOVANA CANTOR, Yovany Kwan, URL Within 6 months [address] [place], [place] [id number]- Additional Instructions: w/ KUB Patient Education Dietary Guidelines to Help Prevent Kidney Stones I, Lucero Robles, personally scribed for Dr. Akhtar on 06/17/2022 09:35:39. . Documentation recorded by the scribe, Lucreo Robles, accurately reflects the services(s) I performed and decisions made by me. Authenticated by Dr. Akhtar on 06/17/2022 09:37:11. Problem List/Past Medical History Ongoing BMI 40.0-44.9, adult BPH (benign prostatic hyperplasia) Chronic anticoagulation Dermatofibroma of left upper arm Diabetes mellitus type 2, noninsulin dependent Elevated PSA Hx of group home use of blood thinners Kidney stone Nocturia Osteoarthritis Historical GERD (gastroesophageal reflux disease) Neoplasm of uncertain behavior of skin Thrombophlebitis of lower extremities Procedure/Surgical History ESWL - Extracorporeal shockwave lithotripsy for renal calculus (05/26/2022), ESWL - Extracorporeal shockwave lithotripsy for renal calculus (08/13/2020), Closure of anal fistula, Dental surgical procedure, Gallbladder, History of tonsillectomy, Kidn (more content not included)... Normal [facility] Comment on above: Result Comment: Elec tronically Signed By: Yovany AKHTAR MD\.br\Date and Time Signed: 06/17/22 09:37 EDT\.br\Electronically Co-Signed By: Lucero Robles\.fabián\Date and Time Co-Signed: 06/17/22 09:35 EDT XR [...] by: MANSOOR LIMA Date: 2022-06-16 18:56 Normal [facility] Patient Educationon 06-10-20 Patient Education Urology Dietary [...] Rhubarb. ? Beets. ? Potato chips and syrian fries. ? Nuts. ? If you regularly take a diuretic medicine, make sure to eat at least 1?2 fruits or vegetables high in potassium each day. These include: ? Avocado. ? Banana. ? Bigfork, prune, carrot, or tomato juice. ? Baked [...] Salad dr (more content not included)... Normal [facility] [id number] .00CD:127 Normal [facility] Urology Office/Clinic Noteon 06-10-2022 Urology Office/Clinic Note Chief Complaint Follow up HPI Staff Pt is here for PO ESWL. Pt went to [place] [facility] 05/29/22 for right flank pain. CT [...] ESWL 08/13/2020 - CT done 05/29/22 at [facility] showed 2mm right distal ureteral calculus. Additional 6mm right UPJ calculus - S/P RT Lithotripsy 05/26/22 - KUB done 06/09/22 at [facility] stated there is no visible renal [...] Contact Information GIOVANA CANTOR, Yovany Kwan, URL Within 2 weeks [address] [facility] [address] [place] [address]- Additional Instructions: KUB Patient Education Dietary Guidelines [...] 2, noninsulin dependent Elevated PSA Hx of salvage determiner use of blood thinners Kidney stone Nocturia Osteoarthritis Historical GERD (gastroesophageal reflux disease) Neoplasm of uncertain behavior of skin Thrombophlebitis of lower extremities Procedure/Surgical History ESWL - Extracorporeal shockwave lithotripsy for renal calculus (05/26/2022), ESWL - Extracorporeal shock (more content not included)... Normal [facility] Comment on above: Result Comment: [...] by: MANSOOR LIMA Date: 2022-06-09 17:41 Normal [facility] CBC AUTO DIFFon 05-29-2022 BASO # 0.1 103/ul Normal 0.0-0.1 [facility] Comment on above: Performed By: #### C BC ####[facility] [address] [place] [address]DrCullen Aldrich Basophils/100 WBC (Bld) 0.2 % Normal 0.2-2.0 [facility] Comment on above: Performed By: #### C BC ####[facility] [address] [place] [address]Dr. Wyatt Aldrich EO # 0.0 103/ul Normal 0.0-0.7 [facility] Comment on above: Performed By: #### C BC ####[facility] [address] [place], [place] [address]Dr. Wyatt Aldrich Eosinophils/100 WBC (Bld) 0.2 % Critically low 0.9-7.0 [facility] Comment on above: Performed By: #### C BC ####[facility] [address] [place] [address]Dr. Wyatt Aldrich Erythrocyte distribution width (RBC) [Ratio] 12.3 % Normal 11.0-15.0 [facility] Comment on above: Performed By: #### C BC ####[facility] [address] [place] [address]Dr. Wyatt Aldrich Hematocrit (Bld) [Volume fraction] 45.9 % Normal 42.0-54.0 [facility] Comment on above: Performed By: #### C BC ####[facility] [address] [place], [place] [address]Dr. Wyatt Aldrich Hemoglobin (Bld) [Mass/Vol] 15.2 g/dL Normal 14.0-18.0 [facility] Comment on above: Performed By: #### C BC ####[facility] [address] [place], [place] [address]Dr. Wyatt Aldrich IG # 0.09 10e3/ul Critically high 0.00-0.03 [facility] Comment on above: Performed By: #### C BC ####[facility] [address] [place], [place] [address]Dr. Wyatt Aldrich IG % 0.4 % Normal 0.0-0.5 [facility] Comment on above: Performed By: #### C BC ####[facility] [address] [place], [place] [address]Dr. Wyatt Aldrich LYMPH # 1.1 103/ul Critically low 1.2-3.8 [facility] Comment on above: Performed By: #### C BC ####[facility] [address] [place], [place] [address]Dr. Wyatt Aldrich Lymphocytes/100 WBC (Bld) 5.1 % Critically low 20.5-60.0 [facility] Comment on above: Performed By: #### C BC ####[facility] [address] [place] [address]Dr. Wyatt Valdemar MANUAL DIFF REQ NO Normal [facility] Comment on above: Performed By: #### C BC ####[facility] [address] [place] [address]Dr. Wyatt Aldrich MCH (RBC) [Entitic mass] 30.2 pg Normal 25.9-34.0 [facility] Comment on above: Performed By: #### C BC ####[facility] [address] [place], [place] [address]Dr. Wyatt Valdemar MCHC (RBC) [Mass/Vol] 33.1 g/dL Normal 29.9-35.2 [facility] Comment on above: Performed By: #### C BC ####[facility] [address] [place], [place] [address]Dr. Wyatt Valdemar MCV (RBC) [Entitic vol] 91.3 fL Normal 80.0-94.0 [facility] Comment on above: Performed By: #### C BC ####[facility] [address] [place], [place] [address]Dr. Wyatt Valdemar MONO # 1.4 103/ul Critically high 0.3-0.8 [facility] Comment on above: Performed By: #### C BC ####[facility] [address] [place], [place] [address]Dr. Jossielalo Aldrich Monocytes/100 WBC (Bld) 6.7 % Normal 1.7-12.0 [facility] Comment on above: Performed By: #### C BC ####[facility] [address] [place] [address]Dr. Wyatt Aldrich NEUT # 18.5 103/ul Critically high 1.4-6.5 [facility] Comment on above: Performed By: #### C BC ####[facility] [address] [place], [place] [address]Dr. Wyatt Aldrich Neutrophils/100 WBC (Bld) 87.4 % Critically high 43.0-75.0 [facility] Comment on above: Performed By: #### C BC ####[facility] [address] [place], [place] [address]Og. Wyatt Aldrich Platelet mean volume (Bld) [Entitic vol] 9.3 fL Critically low 9.5-13.5 [facility] Comment on above: Performed By: #### C BC ####[facility] [address] [place], [place] [address]Se. Wyatt Aldrich PLT 303 103/ul Normal 150-450 [facility] Comment on above: Performed By: #### C BC ####[facility] [address] [place], [place] [address]Xe. Wyatt Aldrich RBC 5.03 106/ul Normal 4.70-6.10 [facility] Comment on above: Performed By: #### C BC ####[facility] [address] [place], [place] [address]Qq. Wyatt Aldrich WBC 21.2 103/ul Critically high 4.0-11.0 [facility] Comment on above: Performed By: #### C BC ####[facility] [address] [place], [place] [address]Bv. Wyatt Ald[address] CT ABD/PELVIS WO CONon 05-29 [...] excluded. Hepatic steatosis. Electronically authenticated by: BOO ROLANWINSTON Date: 2022-05-29 17:32 Normal [facility] ER URINE PROFILEon 2 Bilirubin Ql (U) Negative Normal NEGATIVE [facility] Comment on above: Performed By: #### U MICRO, ERUR #### [facility] [address] [address] [address] Wyatt Aldrich Clarity (U) CLEAR Normal CLEAR [facility] Comment on above: Performed By: #### U MICRO, ERUR #### [facility] [address] [address] [address] Wyatt Aldrich Color (U) LT. YELLOW Normal YELLOW [facility] Comment on above: Performed By: #### U MICRO, ERUR #### [facility] [address] [place] [address] Dr. Wyatt LINDAAHD A micrscopic examination will be performed if indicated. Normal [facility] Comment on above: Performed By: #### U MICRO, ERUR #### [facility] [address] [address] [address] Wyatt Aldrich Glucose Ql (U) Negative Normal NEGATIVE [facility] Comment on above: Performed By: #### U MICRO, ERUR #### [facility] [address] [address] [address] Wyatt Aldrich Hemoglobin Ql (U) TRACE-INTACT Abnormal NEGATIVE [facility] Comment on above: Performed By: #### U MICRO, ERUR #### [facility] [address] [address] [address] Wyatt Aldrich Ketones Ql (U) Negative Normal NEGATIVE [facility] Comment on above: Performed By: #### U MICRO, ERUR #### [facility] [address] [address] [address] Wyatt Aldrich LEUKOCYTES Negative Normal NEGATIVE [facility] Comment on above: Performed By: #### U MICRO, ERUR #### [facility] [address] [place] [address] Dr. Wyatt Aldrich Nitrite Ql (U) Negative Normal NEGATIVE [facility] Comment on above: Performed By: #### U MICRO, ERUR #### [facility] [address] [address] [address] Wyatt Aldrich pH (U) 7.0 [pH] Normal 5-9 [facility] Comment on above: Performed By: #### U MICRO, ERUR #### [facility] [address] [address] [address] Wyatt Aldrich SPEC GRAVITY 1.020 Normal 1.005-<=1.025 [facility] Comment on above: Performed By: #### U MICRO, ERUR #### [facility] [address] [address] [address] Wyatt Aldrich UA PROTEIN Negative Normal NEGATIVE/ TRACE [facility] Comment on above: Performed By: #### U MICRO, ERUR #### [facility] [address] [place] [address] Dr. Wyatt Aldrich UR MICRO IND INDICATED Normal [facility] Comment on above: Performed By: #### U MICRO, ERUR #### [facility] [address] [place] [address] Dr. Wyatt Aldrich Urobilinogen Qn (U) 0.2 {Sharon'U}/dL Normal 0.2 - 1. 0 [facility] Comment on above: Performed By: #### U MICRO, ERUR #### [facility] [address] [address] [address] Wyatt Aldrich PROF 14(COMP METB)on 022 Albumin [Mass/Vol] 3.9 g/dL Normal 3.4-5.0 [facility] Comment on above: Performed By: #### C MP #### [facility] [address] [place] [address] Dr. Wyatt Aldrich Albumin/Globulin [Mass ratio] 1.1 {ratio} Normal [facility] Comment on above: Performed By: #### C MP #### [facility] [address] [address] [address] Wyatt Aldrich ALP [Catalytic activity/Vol] 70 U/L Normal 46-116 [facility] Comment on above: Performed By: #### C MP #### [facility] [address] [address] [address] Wyatt Aldrich ALT [Catalytic activity/Vol] 38 U/L Normal 16-63 [facility] Comment on above: Performed By: #### C MP #### [facility] [address] [address] [address] Wyatt Aldrich Anion gap [Moles/Vol] 12.6 mmol/L Normal Th [facility] Comment on above: Performed By: #### C MP #### [facility] [address] [address] [address] Wyatt Aldrich AST [Catalytic activity/Vol] 20 U/L Normal 15-37 [facility] Comment on above: Performed By: #### C MP #### [facility] [address] [place] [address] Dr. Wyatt Aldrich Bilirubin [Mass/Vol] 0.6 mg/dL Normal 0.2-1.0 [facility] Comment on above: Performed By: #### C MP #### [facility] [address] [address] [address] Wyatt Aldrich Calcium [Mass/Vol] 8.7 mg/dL Normal 8.5-10.1 [facility] Comment on above: Performed By: #### C MP #### [facility] [address] [address] [address] Wyatt Aldrich Chloride [Moles/Vol] 95 mmol/L Critically low 98-107 [facility] Comment on above: Performed By: #### C MP #### [facility] [address] [address] [address] Wyatt Aldrich CO2 [Moles/Vol] 29.9 mmol/L Normal 21.0-32.0 [facility] Comment on above: Performed By: #### C MP #### [facility] [address] [address] [address] Wyatt Aldrich Creatinine [Mass/Vol] 1.04 mg/dL Normal 0.70-1.30 [facility] Comment on above: Performed By: #### C MP #### [facility] [address] [address] [address] Wyatt Aldrich EGFR-AF KENYAN >60 Normal >=60 [facility] Comment on above: Performed By: #### C MP #### [facility] [address] [address] [address] Wyatt Aldrich EGFR-NON AF KENYAN >60 Normal >=60 [facility] Comment on above: Performed By: #### C MP #### [facility] [address] [address] [address] Wyatt Aldrich Globulin (S) [Mass/Vol] 3.4 g/dL Normal [facility] Comment on above: Performed By: #### C MP #### [facility] [address] [place] [address] Dr. Wyatt Aldrich Glucose [Mass/Vol] 148 mg/dL Critically high 74-[address] [facility] Comment on above: Performed By: #### C MP #### [facility] [address] [address] [address] Wyatt Aldrich Potassium [Moles/Vol] 4.5 mmol/L Normal 3.5-5.1 [facility] Comment on above: Performed By: #### C MP #### [facility] [address] [place] [address] Dr. Wyatt Aldrich Protein [Mass/Vol] 7.3 g/dL Normal 6.4-8.2 [facility] Comment on above: Performed By: #### C MP #### [facility] [address] [place] [address] Dr. Wyatt Aldrich Sodium [Moles/Vol] 133 mmol/L Critically low 136-145 [facility] Comment on above: Performed By: #### C MP #### [facility] [address] [address] [address] Wyatt Aldrich Urea nitrogen [Mass/Vol] 15.0 mg/dL Normal 7.0-18.0 [facility] Comment on above: Performed By: #### C MP #### [facility] [address] [address] [address] Wyatt Aldrich Urea nitrogen/Creatinine [Mass ratio] 14.4 mg/mg Normal [facility] Comment on above: Performed By: #### C MP #### [facility] [address] [place] [address] Dr. Wyatt Aldrich URINE MICROSCOPIC ONLYon BACTERIA NONE SEEN Normal NONE SEEN [facility] Comment on above: Performed By: #### U MICRO, ERUR #### [facility] [address] [place] [address] Dr. Wyatt Aldrich Bacteria identified Cx Nom (U) NOT INDICATED Normal [facility] Comment on above: Performed By: #### U MICRO, ERUR #### [facility] [address] [place] [address] Dr. Wyatt Aldrich CAST NONE SEEN Normal NONE SEEN [facility] Comment on above: Performed By: #### U MICRO, ERUR #### [facility] [address] [place] [address] Dr. Wyatt Aldrich Crystals LM Nom (Urine sed) NONE SEEN Normal NONE SEEN [facility] Comment on above: Performed By: #### U MICRO, ERUR #### [facility] [address] [place] [address] Dr. Wyatt Aldrich Epithelial cells LM Ql (Urine sed) NONE SEEN Normal NONE SEEN /RARE [facility] Comment on above: Performed By: #### U MICRO, ERUR #### [facility] [address] [place] [address] Dr. Wyatt Aldrich MUCOUS NONE SEEN Normal NONE SEEN [facility] Comment on above: Performed By: #### U MICRO, ERUR #### [facility] [address] [place] [address] Dr. Wyatt Aldrich RBC 2-5 Abnormal 0-2 [facility] Comment on above: Performed By: #### U MICRO, ERUR #### [facility] [address] [place] [address] Dr. Wyatt Aldrich WBC NONE SEEN Normal NONE SEEN [facility] Comment on above: Performed By: #### U MICRO, ERUR #### [facility] [address] [place], [place] [address] Dr. Wyatt Aldrich T4 LABCORPon 01-29-2022 T4 [Mass/Vol] 9.1 ug/dL Normal 4.5-12.0 [facility] [place] Comment on above: Performed By: #### T 4LC ####[facility] [address] [place] [id number] Aldrich CBC AUTO DIFFon 01-28-2022 BASO # 0.1 103/ul Normal 0.0-0.1 [facility] Comment on above: Performed By: #### C BC ####[facility] [address] [place] [address]DrCullen Aldrich Basophils/100 WBC (Bld) 0.6 % Normal 0.2-2.0 [facility] Comment on above: Performed By: #### C BC ####[facility] [address] [place], [place] [address]Dr. Wyatt Aldrich EO # 0.2 103/ul Normal 0.0-0.7 [facility] Comment on above: Performed By: #### C BC ####[facility] [address] [place], [place] [address]DrCullen Aldrich Eosinophils/100 WBC (Bld) 2.4 % Normal 0.9-7.0 [facility] Comment on above: Performed By: #### C BC ####[facility] [address] [place], [place] [address]DrCullen Aldrich Erythrocyte distribution width (RBC) [Ratio] 12.5 % Normal 11.0-15.0 [facility] Comment on above: Performed By: #### C BC ####[facility] [address] [place], [place] [address]DrCullen Aldrich Hematocrit (Bld) [Volume fraction] 43.5 % Normal 42.0-54.0 [facility] Comment on above: Performed By: #### C BC ####[facility] [address] [place], [place] [address]DrCullen Aldrich Hemoglobin (Bld) [Mass/Vol] 14.4 g/dL Normal 14.0-18.0 [facility] Comment on above: Performed By: #### C BC ####[facility] [address] [place] [address]Dr. Wyatt Aldrich IG # 0.03 10e3/ul Normal 0.00-0.03 [facility] Comment on above: Performed By: #### C BC ####[facility] [address] [place] [address]Dr. Wyatt Aldrich IG % 0.4 % Normal 0.0-0.5 [facility] Comment on above: Performed By: #### C BC ####[facility] [address] [place] [address]Dr. Wyatt Aldrich LYMPH # 2.1 103/ul Normal 1.2-3.8 [facility] Comment on above: Performed By: #### C BC ####[facility] [address] [place] [address]DrCullen Aldrich Lymphocytes/100 WBC (Bld) 24.8 % Normal 20.5-60.0 [facility] Comment on above: Performed By: #### C BC ####[facility] [address] [place] [address]DrCullen Aldrich MANUAL DIFF REQ NO Normal [facility] Comment on above: Performed By: #### C BC ####[facility] [address] [place] [address]Dr. Wyatt Aldrich MCH (RBC) [Entitic mass] 30.6 pg Normal 25.9-34.0 [facility] Comment on above: Performed By: #### C BC ####[facility] [address] [place] [address]Dr. Wyatt Aldrich MCHC (RBC) [Mass/Vol] 33.1 g/dL Normal 29.9-35.2 [facility] Comment on above: Performed By: #### C BC ####[facility] [address] [place] [address]Dr. Wyatt Aldrich MCV (RBC) [Entitic vol] 92.6 fL Normal 80.0-94.0 [facility] Comment on above: Performed By: #### C BC ####[facility] [address] [place] [id number]. Wyatt Aldrich MONO # 0.6 103/ul Normal 0.3-0.8 [facility] Comment on above: Performed By: #### C BC ####[facility] [address] [place] [id number]. Wyatt Aldrich Monocytes/100 WBC (Bld) 7.7 % Normal 1.7-12.0 [facility] Comment on above: Performed By: #### C BC ####[facility] X[address]os[address] [place] [id number]. Wyatt Aldrich NEUT # 5.3 103/ul Normal 1.4-6.5 [facility] Comment on above: Performed By: #### C BC ####[facility] [address] [place], [place] [address]Dr. Wyatt Aldrich Neutrophils/100 WBC (Bld) 64.1 % Normal 43.0-75.0 [facility] Comment on above: Performed By: #### C BC ####[facility] U[address] [place], [place] [id number]. Wyatt Aldrich Platelet mean volume (Bld) [Entitic vol] 9.4 fL Critically low 9.5-13.5 [facility] Comment on above: Performed By: #### C BC ####[facility] [address] [place] [id number]. Wyatt Aldrich PLT 280 103/ul Normal 150-450 [facility] Comment on above: Performed By: #### C BC ####[facility] [address] [place], [place] [id number]. Wyatt Aldrich RBC 4.70 106/ul Normal 4.70-6.10 [facility] Comment on above: Performed By: #### C BC ####[facility] [address] [place] [id number]. Wyatt Aldrich WBC 8.3 103/ul Normal 4.0-11.0 [facility] Comment on above: Performed By: #### C BC ####[facility] [address]thff[address] [place], [place] [address]Dr. Wyatt Aldrich FREE T3on 01-28-2022 FREE T3 2.70 pg/mlL Normal 2.18-3.98 [facility] Comment on above: Performed By: #### L IPID, CMP, TSH, FT3 ####[facility] [address] [place], [place] [address]ZgDr. Wyatt Aldrich GLYCOHEMOGLOBIN A1Con 2021 ADA RECOMMENDATION SEE BELOW Normal [facility] Comment on above: Result Comment: ADA RECOMMENDED LIMIT 4.0 - 6.0 ADA THERAPEUTIC TARGET < 7.0 ACTION SUGGESTED > 7.0 Performed By: #### A 1C #### [facility] [address] [address] [address] Wyatt Aldrich Glucose [Mass/Vol] 143 mg/dL Normal [facility] Comment on above: Performed By: #### A 1C #### [facility] [address] [address] [address] Wyatt Aldrich HbA1c (Bld) [Mass fraction] 6.6 % Critically high 4.5-6.2 [facility] Comment on above: Performed By: #### A 1C #### [facility] [address] [address] [address] Wyatt Aldrich LIPID PROFILEon 01-28-2022 CHOL-HDL RATIO NORM SEE BELOW Normal [facility] Comment on above: Result Comment: 3.3 - 4.4 LOW RISK 4.4 - 7.1 AVERAGE RISK 7.1 - 11.0 MODERATE RISK >11.0 HIGH RISK Performed By: #### L IPID, CMP, TSH, FT3 ####[facility] [address]xx[address] [place], [place] [address]Dr. Wyatt Aldrich Cholesterol [Mass/Vol] 176 mg/dL Normal <=200 [facility] Comment on above: Performed By: #### L IPID, CMP, TSH, FT3 ####[facility] [address] [place] [id number]. Wyatt Aldrich Cholesterol in HDL [Mass/Vol] 35 mg/dL Critically low 40-60 [facility] Comment on above: Performed By: #### L IPID, CMP, TSH, FT3 ####[facility] [address] [place] [address]Dr. Wyatt Aldrich Cholesterol in LDL [Mass/Vol] 94.4 mg/dL Normal [facility] Comment on above: Performed By: #### L IPID, CMP, TSH, FT3 ####[facility] [address] [place] [address]Dr. Wyatt Aldrich Cholesterol.total/Cho lesterol in HDL [Mass ratio] 5.0 {ratio} Normal [facility] Comment on above: Performed By: #### L IPID, CMP, TSH, FT3 ####[facility] [address] [place] [address]Dr. Wyatt Aldrich HDL NORMAL > or = 60 mg/dl - LO W CARDIOVASCULAR RISK <40 mg/dl - HIGH CARDIOVASCULAR RISK Normal [facility] Comment on above: Performed By: #### L IPID, CMP, TSH, FT3 ####[facility] [address] [place] [address]Dr. Wyatt Aldrich LDL CALC NORMAL SEE BELOW Normal [facility] Comment on above: Result Comment: <100 mg/dl OPTIMAL 100 - 129 mg/dl NEAR OR ABOVE OPTIMAL 130 - 159 mg/dl BORDERLINE HIGH 160 - 189 mg/dl HIGH >190 mg/dl VERY HIGH Performed By: #### L IPID, CMP, TSH, FT3 ####[facility] [address] [place] [address]Dr. Wyatt Aldrich Triglyceride [Mass/Vol] 233 mg/dL Critically high <=150 [facility] Comment on above: Performed By: #### L IPID, CMP, TSH, FT3 ####[facility] [address] [place] [address]Dr. Wyatt Aldrich VLDL CALC 46.6 mg/dL Normal [facility] Comment on above: Performed By: #### L IPID, CMP, TSH, FT3 ####[facility] [address]wr[address] [place] [address]Dr. Wyatt Aldrich OCC BLD IMMUNO SCREENon 05-2 7-2022 OCCULT BLOOD Negative Normal NEGATIVE [facility] Comment on above: Performed By: #### O BSCRN #### [facility] [address] [address] [address] Wyatt Aldrich PROF 14(COMP METB)on 022 Albumin [Mass/Vol] 3.4 g/dL Normal 3.4-5.0 [facility] Comment on above: Performed By: #### L IPID, CMP, TSH, FT3 ####[facility] [address] [place] [address]Dr. Wyatt Aldrich Albumin/Globulin [Mass ratio] 1.0 {ratio} Normal [facility] Comment on above: Performed By: #### L IPID, CMP, TSH, FT3 ####[facility] [address] [place] [address]Dr. Wyatt Aldrich ALP [Catalytic activity/Vol] 65 U/L Normal 46-116 [facility] Comment on above: Performed By: #### L IPID, CMP, TSH, FT3 ####[facility] [address] [place] [address]Dr. Wyatt Aldrich ALT [Catalytic activity/Vol] 45 U/L Normal 16-63 [facility] Comment on above: Performed By: #### L IPID, CMP, TSH, FT3 ####[facility] [address] [place] [id number]. Wyatt Aldrich Anion gap [Moles/Vol] 9.7 mmol/L Normal [facility] Comment on above: Performed By: #### L IPID, CMP, TSH, FT3 ####[facility] [address] [place] [address]Dr. Wyatt Aldrich AST [Catalytic activity/Vol] 20 U/L Normal 15-37 [facility] Comment on above: Performed By: #### L IPID, CMP, TSH, FT3 ####[facility] [address] [place] [address]Dr. Wyatt Aldrich Bilirubin [Mass/Vol] 0.4 mg/dL Normal 0.2-1.0 [facility] Comment on above: Performed By: #### L IPID, CMP, TSH, FT3 ####[facility] [address]jj[address] [place] [address]Dr. Wyatt Aldrich Calcium [Mass/Vol] 8.5 mg/dL Normal 8.5-10.1 [facility] Comment on above: Performed By: #### L IPID, CMP, TSH, FT3 ####[facility] [address] [place] [address]Dr. Wyatt Aldrich Chloride [Moles/Vol] 101 mmol/L Normal 98-107 [facility] Comment on above: Performed By: #### L IPID, CMP, TSH, FT3 ####[facility] [address] [place], [place] [address]Dr. Wyatt Aldrich CO2 [Moles/Vol] 33.3 mmol/L Critically high 21.0-32.0 [facility] Comment on above: Performed By: #### L IPID, CMP, TSH, FT3 ####[facility] [address] [place] [address]Dr. Wyatt Aldrich Creatinine [Mass/Vol] 0.77 mg/dL Normal 0.70-1.30 [facility] Comment on above: Performed By: #### L IPID, CMP, TSH, FT3 ####[facility] [address] [place] [address]Dr. Wyatt Aldrich EGFR-AF KENYAN >60 Normal >=60 [facility] Comment on above: Performed By: #### L IPID, CMP, TSH, FT3 ####[facility] [address] [place] [address]Dr. Wyatt Aldrich EGFR-NON AF KENYAN >60 Normal >=60 [facility] Comment on above: Performed By: #### L IPID, CMP, TSH, FT3 ####[facility] B[address]fr[address] [place] [address]Dr. Wyatt Aldrich Globulin (S) [Mass/Vol] 3.3 g/dL Normal [facility] Comment on above: Performed By: #### L IPID, CMP, TSH, FT3 ####[facility] [address] [place] [address]Dr. Wyatt Aldrich Glucose [Mass/Vol] 137 mg/dL Critically high 74-[address] [facility] Comment on above: Performed By: #### L IPID, CMP, TSH, FT3 ####[facility] [address]tt[address] [place] [address]Dr. Wyatt Aldrich Potassium [Moles/Vol] 4.0 mmol/L Normal 3.5-5.1 [facility] Comment on above: Performed By: #### L IPID, CMP, TSH, FT3 ####[facility] [address]ca[address] [place] [address]Dr. Wyatt Aldrich Protein [Mass/Vol] 6.7 g/dL Normal 6.4-8.2 [facility] Comment on above: Performed By: #### L IPID, CMP, TSH, FT3 ####[facility] [address] [place], [place] [address]Dr. Wyatt Aldrich Sodium [Moles/Vol] 140 mmol/L Normal 136-145 [facility] Comment on above: Performed By: #### L IPID, CMP, TSH, FT3 ####[facility] [address] [place] [address]Dr. Wyatt Aldrich Urea nitrogen [Mass/Vol] 13.0 mg/dL Normal 7.0-18.0 [facility] Comment on above: Performed By: #### L IPID, CMP, TSH, FT3 ####[facility] [address] [place], [place] [address]Dr. Wyatt Aldrich Urea nitrogen/Creatinine [Mass ratio] 16.9 mg/mg Normal [facility] Comment on above: Performed By: #### L IPID, CMP, TSH, FT3 ####[facility] [address] [place], [place] [address]Dr. Wyatt Aldrich TSHon 01-28-2022 TSH 5.562 uIU/mL Critically high 0.358-3.740 [facility] Comment on above: Performed By: #### L IPID, CMP, TSH, FT3 ####[facility] [address] [place], [place] [address]Cx. Wyatt Aldrich TSH RANGE SEE BELOW Normal [facility] Comment on above: Result Comment: <0.3 4 UIU/ml HYPERTHYROID 0.34-5.60 UIU/ml EUTHYROID >5.60 UIU/ml HYPOTHYROID Performed By: #### L IPID, CMP, TSH, FT3 ####[facility] [address] [place], [place] [address]Hr. Wyatt Aldrich XR KUB 1 VIEWon 01-20-2022 [...] MANSOOR LIMA Date: 2022-01-20 14:12 Normal [facility] MRI LSPINE WO W CONon 2021 [...] by: TANISHA CHIU Date: 2021-10-04 11:23 Normal [facility] XR LSPINE MIN 4 VIEWSon 09-05 XR [...] by: SOLO SAVAGE Date: 2021-09-27 11:31 Normal [facility] Vital Signs Date Time Vital Sign Value Performing Clinician Jessi chowdhury 06-06-2023 08:48-0400 Blood Pressure Location Yovany GIOVANA [facility] 06-06-2023 08:48-0400 Diastolic blood pressure 66 mm[Hg] Yovany AKHTAR [facility] 06-06-2023 08:48-0400 Heart rate 83 /min Yovany COOK [facility] 06-06-2023 08:48-0400 Systolic blood pressure 142 mm[Hg] Yovany COOK [facility] 06-17-2022 09:14-0400 Blood Pressure Location Yovany COOK [facility] 06-17-2022 09:14-0400 Diastolic blood pressure 96 mm[Hg] Yovany COOK [facility] 06-17-2022 09:14-0400 Heart rate 67 /min Yovany COOK [facility] 06-17-2022 09:14-0400 Systolic blood pressure 159 mm[Hg] Yovany COOK [facility] 06-10-2022 09:54-0400 Blood Pressure Location Yovany COOK [facility] 06-10-2022 09:54-0400 Diastolic blood pressure 102 mm[Hg] Yovany COOK [facility] 06-10-2022 09:54-0400 Heart rate 68 /min Yovany COOK [facility] 06-10-2022 09:54-0400 Systolic blood pressure 166 mm[Hg] Yovany COOK [facility] 01-21-2022 08:44-0400 Blood Pressure Location Yovany COOK [facility] 01-21-2022 08:44-0400 Diastolic blood pressure 87 mm[Hg] Yovany COOK [facility] 01-21-2022 08:44-0400 Heart rate 72 /min Yovany AKHTAR [facility] 01-21-2022 08:44-0400 Systolic blood pressure 140 mm[Hg] Yovany AKHTAR [facility] [place] Encounters Encounter Date Encounter Type Care Provider Facility Start: 06-11-2024 ambulatory Yovany AKHTAR Facility :[facility] [place] Start: 02-05-2024 End: 02-05-2024 ambulatory Heather Turcios MD Facility: [facility] Start: 12-25-2023 End: 12-25-2023 ambulatory MICHAEL KIM Not Available Start: 12-21-2023 End: 12-21-2023 ambulatory BALTA OTTO Not Available Start: 12-19-2023 End: 12-19-2023 ambulatory MICHAEL KIM Not Available Start: 06-06-2023 End: 06-07-2023 ambulatory Yovany AKTHAR Facility:[facility] Start: 06-06-2023 End: 06-06-2023 Patient encounter procedure Yovany AKHTAR [facility] Start: 06-17-2022 End: 06-18-2022 ambulatory Yovany AKHTAR Facility:[facility] [place] Start: 06-17-2022 End: 06-17-2022 Patient encounter procedure Yovany AKHTAR [facility] [place] Start: 06-16-2022 End: 06-17-[address] NANCY FERNANDEZ Facility: Start: 06-10-2022 End: 06-11-2022 ambulatory Yovany AKHTAR Facility:[facility] [place] Start: 06-10-2022 End: 06-10-2022 Patient encounter procedure Yovany AKHTAR [facility] Start: 06-09-2022 End: 06-10-[address] NANCY FERNANDEZ Facility:[facility] Start: 05-29-2022 End: 05-29-[address] NANCY FERNANDEZ Facility:[facility] Start: 05-11-2022 End: 05-11-2022 Patient encounter procedure Yovany AKHTAR [facility] Start: 02-03-2022 Encounter for genera l adult medical examination without abnormal findings DR NANCY FERNANDEZ [facility] Start: 01-28-2022 End: 01-29-[address] NANCY FERNANDEZ Facility:[facility] Start: 01-28-2022 End: 01-29-2022 Encounter for general adult medical examination without abnormal findings DR NANCY FERNANDEZ Facility:[facility] Start: 01-21-2022 End: 01-21-2022 Patient encounter procedure Yovany AKHTAR [facility] Start: 01-20-2022 End: 01-21-2022 ambulatory [...] on above: Performed By: #### P SAD ####[place] [address]DrCullen Aldrich Start: 08-13-2020 Extracorporeal shock wave lithotripsy of calculus of kidney Yovany AKHTAR Dental surgical procedure Gr poncho AKHTAR Entire gallbladder ( body structure) Yovany AKHTAR History of tonsillectomy Mitul AKHTAR Kidney stone (disorder) Gee AKHTAR l4 l5 disectomy Yovany AKHTAR carlo anal abcess Yovany TRAM DRIVER K Repair of anal fistula Marvel AKHTAR Immunizations Immunization Date Immunization Notes Care Provider Mica biggs 04-19-2022 zoster vaccine recombinant Yovany AKHTAR [facility] 02-12-2022 pneumococcal 20-maría nt conjugate vaccine Yovany AKHTAR [facility] 02-03-2022 zoster vaccine recombinant Yovany AKHTAR [facility] 12-08-2020 SARS-CoV-2 (COVID-19 ) mRNA-1273 vaccine Yovany AKHTAR [facility] 11-17-2020 SARS-CoV-2 (COVID-19 ) mRNA BNT-162b2 vax Yovany AKHTAR [facility] 11-11-2020 SARS-CoV-2 (COVID-19 ) mRNA-1273 vaccine Yovany AKHTAR [facility] Payers Date Payer Category Payer Unknown 2023 Unknown [id number] 1965 Unknown [id number] 2.16.84 [id number] 1965 Unknown [id number] 2.16.84 0.1.603726.3.579.2.593 1964 Unknown [id number] 2.16.84 0.1.772514.3.579.2.593 1964 Unknown [id number] 2.16.84 0.1.057583.3.579.2.593 1964 Unknown [id number] 2.16.84 0.1.415669.3.579.2.593 1964 Unknown [id number] 2.16.84 0.1.565984.3.579.2.593 1964 Unknown [id number] 2.16.84 0.1.936229.3.579.2.593 1964 Unknown [id number] 2.16.84 0.1.453894.3.579.2.593 1964 Unknown [id number] 2.16.8 40.1.245044.3.579.2.727 1964 Unknown [id number] 2.16.8 40.1.524380.3.579.2.727 1964 Unknown [id number] 2.16.8 40.1.113940.3.579.2.727 1964 Unknown [id number] 2.16.8 40.1.078160.3.579.2.727 1964 Unknown [id number] 2.16.84 0.1.793217.3.579.2.1259 1964 Unknown [id number] 2.16.84 0.1.426610.3.579.2.1259 1964 Unknown [id number] 2.16.84 0.1.220830.3.579.2.1259 1964 Unknown [id number] 2.16. [id number] 1959 Private Health Insurance [id number] Social History Date Type Detail Facility Start: 01-15-2021 End: 06-06-2023 Tobacco smoking status Ex-smoker (finding) [facility] Tobacco smoking status Never [facility] Sex Assigned At Male [facility] Functional Status Date Assessment Result Facility 06-06-2023 Functional Status N/A [facility] 06-17-2022 Functional Status N/A [facility] 06-10-2022 Functional Status N/A [facility] Clinical Notes 01-21-2022 to 06-06-2023 Laboratory Note [...] include: ?8 oz (237 mL) of milk, wfejkol-uoiqghipedvw-fedio milk, and calcium-fortifiedfruit juice. Calcium-fortified means that [...] ?Spinach (cooked), rhubarb, beets, sweet potatoes, and Belgian chard. ?Peanuts. ?Potato chips, syrian fries, and baked potatoes with skin on. ?Nuts and nut products. ?Chocolate. If you regularly take a diuretic medicine, make sure to eat at least 1 or 2 servings of fruits or vegetables that are high in potassium each day. These include: ?Avocado. ?Banana. ?Bigfork, prune, carrot, or tomato juice. ?Baked potato. [...] magnesium, fish oil, or vitamin B6. Take mnik-dam-sklivfu and prescription medicines only as told by [...] Casseroles. Pizza. Lasagna. Frozen meals. Potato chips. Polish fries. The items listed above may not [...] provider. Document Revised: 05/02/2022 Document Reviewed: 05/02/2022 [employer] Patient Education 2022 [employer]. Follow Up Care 01/21/2022 09:03:45 With:GIOVANA CANTOR, Yovany Kwan, URL Address: [address] [place], [place] [id number]- When:Within 1 Year(s) Comments:w/MT [facility] 06-17-2022 Hospital Discharge instructions Patient [...] include: ?Spinach. ?Rhubarb. ?Beets. ?Potato chips and syrian fries. ?Nuts. If you regularly take a diuretic medicine, make sure to eat at least 1 2 fruits or vegetables high in potassium each day. These include: ?Avocado. ?Banana. ?Bigfork, prune, carrot, or tomato juice. ?Baked potato. [...] Casseroles. Pizza. Lasagna. Frozen meals. Potato chips. Polish fries. Summary You can reduce your risk [...] 12/16/2011 Document Revised: 12/11/2019 Document Reviewed: 08/01/2017 [employer] Patient Education 2020 [employer]. Follow Up Care 06/10/2022 10:24:22 With:GIOVANA CANTOR, Yovany Kwan, URL Address: [facility] [employer] [place] [id number]- When:6 months Comments:claire/ [place] [facility] 06-10-2022 Hospital Discharge instructions Patient Education 06/10/2022 [...] include: ?Spinach. ?Rhubarb. ?Beets. ?Potato chips and syrian fries. ?Nuts. If you regularly take a diuretic medicine, make sure to eat at least 1 2 fruits or vegetables high in potassium each day. These include: ?Avocado. ?Banana. ?Bigfork, prune, carrot, or tomato juice. ?Baked potato. [...] Casseroles. Pizza. Lasagna. Frozen meals. Potato chips. Polish fries. Summary You can reduce your risk [...] 12/16/2011 Document Revised: 12/11/2019 Document Reviewed: 08/01/2017 [employer] Patient Education 2019 [employer]. Follow Up Care 05/30/2022 09:25:01 With:GIOVANA CANTOR, Yovany Kwan, URL Address: [facility] [place] [id number]- When:2 weeks Comments:MT [facility] 01-21-2022 Hospital Discharge instructions Patient Education 01/21/2022 [...] urethra. Follow these instructions at home: Take jjgl-muj-anvkdjt and prescription medicines only as told by [...] 08/21/2006 Document Revised: 07/16/2019 Document Reviewed: 09/25/2017 [employer] Patient Education 2020 [employer]. Follow Up Care 01/15/2021 08:45:48 With:Yovany AKHTAR MD, URL Address: [address] [place] [id number]- When:01/21/2023 Comments:with PSA and x-ray [facility] Evaluation + Plan note Future Appointments Appointment Date:02/24/2023 08:00:00 AM Scheduled Provider:Yovany AKHTAR MD Location:[facility] Appointment Type:URO Office Visit [facility] Evaluation + Plan note Future Appointments Appointment Date:02/24/2023 08:00:00 AM Scheduled Provider:Yovany AKHTAR MD Location[facility] Appointment Type:URO Office Visit Future Scheduled TestsPT & PTT 04/20/22BUN 04/20/22Creatinine 04/20/22Electrolyte Panel 04/20/22CBC w/ Auto Diff 04/20/22 [facility] Evaluation + Plan note Future Appointments Appointment Date:06/17/2022 09:15:00 AM Scheduled Provider:Yovany AKHTAR MD Location[facility] Appointment Type:URO Office Visit Appointment Date:02/24/2023 08:00:00 AM Scheduled Provider:Yovany AKHTAR MD Location:[facility] Appointment Type:URO Office Visit [facility] Evaluation + Plan note Future Appointments Appointment Date:06/11/2024 08:00:00 AM Scheduled Provider:Yovany AKHTAR MD Location:[facility] [place] Appointment Type:URO Office Visit [facility] Hospital course Narrative No data available for this section [facility] Discharge instructions No data available for this section [facility] Progress note No data available for this section [facility] Summary Purpose Family History No Family History Records Found No data available for this section No Family History Records FoundNo Family History Records FoundNo Family History Records Found Advance Directives No Advanced Directives Records FoundNo Advanced Directives Records FoundNo Advanced Directives Records FoundNo Advanced Directives Records Found Additional Source Comments Care Team (unrecognized sect ion and content) Personnel Name: Nancy Fernandez MD Address: [address] [place] [address] Personnel Name: Nancy Fernandez MD Address: Address: [address] [place] [address] Personnel Name: Nancy Fernandez MD Address: Address: [address] [place] [address] Personnel Name: Nancy Fernandez MD Address: Address: [address] [place] [address] (unrecognized sect ion and content) No Status Records FoundNo Status Records FoundNo Status Records FoundNo Status Records Found INFORMATION SOURCE (unrecogn ized section and content) DATE CREATED AUTHOR 07/07/2022 [facility] DATE CREATED AUTHOR AUTHOR'S ORGANIZ ATION 06/08/2023 [facility] DATE CREATED AUTHOR AUTHOR'S ORGANIZ ATION 12/26/2023 [facility] DATE CREATED AUTHOR AUTHOR'S ORGANIZ ATION 02/13/2024 [facility] FOR RECORDS PERTAINING TO PATIENTS WHO ARE [...] BE BASED ON THE PRIMARY CLINICAL RECORDS. [facility]. provides no warranty or guarantee of the accuracy or completeness of information in this document.
[2024-02-19 07:13] LABS: Glucometer 121 mg/dL (74-106)
[2024-02-19 07:19] VITALS: BP 122/71; PULSE 67; TEMP 36.1; O2SAT 95
[2024-02-19] MEDS: 0.9 % SODIUM CHLORIDE 10 ML SYRINGE - SALINE FLUSH INJ (07:54)
[2024-02-19] MEDS: TRIAMCINOLONE ACETONIDE 40 MG/ML VIAL INJ (07:55)
[2024-02-19] MEDS: BUPIVACAINE HCL 0.25% PF 25 MG/10 ML VIAL INJ (07:55)
[2024-02-19] MEDS: IOHEXOL 240 MG/ML - 10 ML VIAL INJ (07:55)
[2024-02-19] MEDS: LIDOCAINE HCL 2% PF 100 MG/5 ML VIAL INJ (07:57)
[2024-02-19 07:58] VITALS: BP 152/84; BP 158/98; PULSE 66; PULSE 68; O2SAT 94; O2SAT 95
--- NOTE | 2024-02-19 07:58 | P.ON_ITS ---
Date of procedure: 02/19/24 Pre-op diagnosis: Lumbar stenosis with neurogenic claudication Post-op diagnosis: same as pre-op Procedure: Procedure: Left L3-4, L4-5 transforaminal epidural steroid injection Medications: Bupivacaine 0.25% 2cc, lidocaine 2% 1cc, kenalog 80mg The patient was seen and examined in the preoperative holding area.? Informed consent was obtained and placed on the chart.? Patient was brought to the medical procedure unit and placed in the prone position where a timeout was completed verifying the correct patient, procedure site, position, and planned special equipment using sterile aseptic technique.? Under direct fluoroscopic visualization a 25-gauge Quincke tipped spinal needle was advanced to the designated neural foramen where contrast dye was injected to show adequate spread.? The needle was inserted at level left L3-4. There was no evidence of vascular or adverse uptake.? Epidural spread was appreciated.? The above- mentioned injectate was then placed in a 1.5 mL aliquot preceded by negative aspiration.? The needle was removed. The needle was inserted and the procedure repeated at level left L4-5.? The surgery site was covered.? Patient was taken to the postprocedural recovery area and monitored for an appropriate length of time before found suitable for discharge in the accompaniment of a responsible adult. Anesthesia: Local Surgeon: Heather Turcios Pathology: none sent Condition: stable Disposition: no change
== END 2024-02-19 08:02 | disposition home or self-care (01) ==
LOC: SURGOUT 06:57
PROVIDERS: PCP Family Medicine; Visit Provider Anesthesiology
DX: M48.062 Spinal stenosis, lumbar region with neurogenic claudication (principal)
CPT/HCPCS: 36415; 64483; 64484; 82948; J0665; J3301; Q9966

== ENCOUNTER 2024-02-29 07:55 | Outpatient (OUT) | payer BC, SELFPAY ==
--- OUTSIDE RECORDS SUMMARY | 2024-02-29 08:04 | XMS_ITS | CCD ---
Author Organization [facility] Care Team Providers Care Motor Room Controller Name Role Phone Nancy Fernandez Primary Care Physician [phone] VELVET, DR CRUZ Primary Care Unavailable GIOVANA, DR YOVANY Kwan Consulting Unavailable COOK, DR YOVANY Kwan Admitting Unavailable COOK, DR YOVANY Kwan Attending Unavailable JANIE, DR MANSOOR Porras Consulting Unavailable EVLVET, DR CRUZ Primary Care Unavailable VELVET, DR [...] Admitting Unavailable RADHA TINSLEY Attending Unavailable BOO GUMZAN Consulting Unavailable VELVET, DR CRUZ Consulting Unavailable [...] Unavailable Karolina CANTOR, Heather Voss Attending Unavailable Karolina CANTOR, Heather Voss Attending Unavailable Allergies Allergy Classification Reported Allergen(s) Allergy Type Date of Onset Reaction(s) Facility (6 sources) Acetaminophen / HYDROcodone; Translations: [acetaminophen-hyd rocodone] Drug Allergy Hyperactive behavior (finding) [facility] Medications Current Medications Medication Drug Class(es) Dates [...] 30 cap(s), Refills(s) 2, Pharmacy: [id number], 188, cm, 06/10/22 9:57:00 EDT, Height/Length Dosing, [...] 02-19-2019 Episodic Other aftercare (1 source) Other chcf (current) drug therapy; Translations: [OTH GROUP HOME CURRENT DRUG THERAPY] Onset: 05-31-20 Episodic Other aftercare (1 source) terminal carman (current) use of aspirin; Translations: [GROUP HOME CURRENT USE OF ASPIRIN] Onset: 05-31-20 Episodic [...] object(s), not elsewhere classified, initial encounter; Translations: [[facility] OT SHRP OB NOT ELSW CLASS [...] Interpretation Reference Range Facility Screenson 06-07-2023 Screens [id number]# 1.00CD:127 [facility] Ambulatory Visit Summaryon 1 Ambulatory Visit Summary LIZ HERNANDEZ :1965 Visit Date:06/06/2023 Ambulatory Visit Instructions Your Diagnosis BPH (benign prostatic hyperplasia) Kidney stone Tests Performed Urnls Dip Stick Auto w/o Microscopy POC 45611 XR Abdomen 1 View -- Results Pending [...] Yovany AKHTAR MD Where: [facility] Patient Educationon 10-03-20 23 Patient Education Nephrology Dietary Guidelines to Help [...] Spinach (cooked), rhubarb, beets, sweet potatoes, and Tu[place] chard. ? Peanuts. ? Potato chips, vincentian fries, and baked potatoes with skin on. ? Nuts and nut products. ? Chocolate. ? If you regularly take a diuretic medicine, make sure to eat at least 1 or 2 servings of fruits or vegetables that are high in potassium each day. These include: ? Avocado. ? Banana. ? Rudolph, prune, carrot, or tomato juice. ? Baked [...] fish oil, or vitamin B6. ? Take wxlr-gew-kewafsn and prescription medicines only as told by your health care provider. These include supplements. What foods should I limit? Limit your in (more content not included)... Normal [facility] Urology Office/Clinic Noteon 06-06-2023 Urology Office/Clinic [...] [address] [address]- Additional Instructions: w/KUB Patient Education Dietary Guidelines [...] with voice recognition artificial intelligence software, specifically [employer] and or [employer]. Substitutions may have occurred due to the inherent limitations of voice recognition and artificial intelligence software. Problem List/Past Medical History Ongoing BMI 40.0-44.9, adult BPH (benign prostatic hyperplasia) Chronic anticoagulation Dermatofibroma of left upper arm Diabetes mellitus type 2, noninsulin dependent Elevated PSA Hx of terminal carman use of blood thinners Kidney stone Nocturia Osteoarthritis Historical GERD (gastroesophageal reflux disease) Neoplasm of uncertain behavior of skin Thrombophlebitis of lower extremities Procedure/Surgical History ESWL - Extracorporeal shockwave lithotripsy for renal calculus (05/26/2022), ESWL - Extracorporeal shockwave lithotripsy for renal calculus (08/13/2020), Closure of anal fistula, Dental surgical procedure, Gallbladder, (more content not included)... Normal [facility] Comment on above: Result Comment: Elec tronically Signed By: Yovany AKHTAR MD\.br\Date and Time Signed: 06/06/23 09:32 EDT\.br\Electronically Co-Signed By: Maura Teixeira\.br\Date and Time Co-Signed: 06/06/23 09:28 EDT RAD - MISCon 05-31-2023 RAD - MISC [id number]. 00CD:127 Normal [facility] [facility] [id number] .00CD:127 Normal [facility] [id number] .00CD:127 Normal [facility] Patient Educationon 06-17-20 Patient Education Urology [...] Rhubarb. ? Beets. ? Potato chips and vincentian fries. ? Nuts. ? If you regularly take a diuretic medicine, make sure to eat at least 1?2 fruits or vegetables high in potassium each day. These include: ? Avocado. ? Banana. ? Rudolph, prune, carrot, or tomato juice. ? Baked [...] Anjana cruz (more content not included)... Normal [facility] Urology Office/Clinic Noteon 06-17-2022 Urology Office/Clinic [...] Information GIOVANA CANTOR, Yovany Kwan, ESHA Within 6 months [address] [place] [id number]- Additional Instructions: w/ KUB Patient Education Dietary [...] 2, noninsulin dependent Elevated PSA Hx of chcf use of blood thinners Kidney stone Nocturia Osteoarthritis Historical GERD (gastroesophageal reflux disease) Neoplasm of uncertain behavior of skin Thrombophlebitis of lower extremities Procedure/Surgical History ESWL - Extracorporeal shockwave lithotripsy for renal calculus (05/26/2022), ESWL - Extracorporeal shockwave lithotripsy for renal calculus (08/13/2020), Closure of anal fistula, Dental surgical procedure, Gallbladder, History of tonsillectomy, Kidn (more content not included)... Normal [facility] Comment on above: Result Comment: Elec [...] by: MANSOOR LIMA Date: 2022-06-16 18:56 Normal [facility] Patient Educationon 06-10-20 Patient Education [...] Rhubarb. ? Beets. ? Potato chips and vincentian fries. ? Nuts. ? If you regularly take a diuretic medicine, make sure to eat at least 1?2 fruits or vegetables high in potassium each day. These include: ? Avocado. ? Banana. ? Rudolph, prune, carrot, or tomato juice. ? Baked [...] and other foods Seasoning blends with salt. Salfroylan cruz (more content not included)... Normal [facility] RAD - MISCon 06-10-2022 [facility] - MIS [id number] .00CD:127 Normal [facility] Urology Office/Clinic Noteon 06-10-2022 Urology Office/Clinic Note Chief Complaint Follow up HPI Staff Pt is here for PO ESWL. Pt went to [facility] 05/29/22 for right flank pain. CT [...] ESWL 08/13/2020 - CT done 05/29/22 at [facility] showed 2mm right distal ureteral calculus. Additional 6mm right UPJ calculus - S/P RT Lithotripsy 05/26/22 - KUB done 06/09/22 at [facility] stated there is no visible renal or [...] With When Contact Information GIOVANA CANTOR, Yovany P, URL Within [address] [place] [address] [place], [place] [id number]- Additional Instructions: KUB Patient Education Dietary Guidelines to Help Prevent Kidney Stones ILucero, personally scribed for Dr. Akhtar on 06/10/2022 10:24:14. . Documentation recorded by the scribe, Lucero Robles, accurately reflects the services(s) I performed and decisions made by me. Authenticated by Dr. Akhtar on 06/10/2022 10:29:59. Problem List/Past Medical History Ongoing BMI 40.0-44.9, adult BPH (benign prostatic hyperplasia) Chronic anticoagulation Dermatofibroma of left upper arm Diabetes mellitus type 2, noninsulin dependent Elevated PSA Hx of chcf use of blood thinners Kidney stone Nocturia Osteoarthritis Historical GERD (gastroesophageal reflux disease) Neoplasm of uncertain behavior of skin Thrombophlebitis of lower extremities Procedure/Surgical History ESWL - Extracorporeal shockwave lithotripsy for renal calculus (05/26/2022), ESWL - Extracorporeal shock (more content not included)... Normal [facility] Comment on above: Result Comment: Elec tronically Signed By: Yovany AKHTAR MD\.br\Date and Time Signed: 06/10/22 10:32 EDT\.br\Electronically Co-Signed By: Lucreo Robles\.br\Date and Time Co-Signed: 06/10/22 10:24 EDT [...] MANSOOR LIMA Date: 2022-06-09 17:[address] [facility] CBC AUTO DIFFon 05-29-2022 BASO # 0.1 103/ul Normal 0.0-0.1 [facility] Comment on above: Performed By: #### C BC ####[facility] [address] [place] [id number]. Wyatt Aldrich Basophils/100 WBC (Bld) 0.2 % Normal 0.2-2.[address] [facility] Comment on above: Performed By: #### C BC ####[facility] [address] [place] [id number] Aldrich EO # 0.0 103/ul Normal 0.0-0.7 [facility] Comment on above: Performed By: #### C BC ####[facility] [address] [place] [id number]. Wyatt Aldrich Eosinophils/100 WBC (Bld) 0.2 % Critically low 0.9-7.[address] [facility] Comment on above: Performed By: #### C BC ####[facility] [address] [place] [address]Dr. Wyatt Aldrich Erythrocyte distribution width (RBC) [Ratio] 12.3 % Normal 11.0-15.0 [facility] Comment on above: Performed By: #### C BC ####[facility] [address] [place] [address]Dr. Wyatt Aldrich Hematocrit (Bld) [Volume fraction] 45.9 % Normal 42.0-54.0 [facility] Comment on above: Performed By: #### C BC ####[facility] [address] [place], [place] [address]Dr. Wyatt Aldrich Hemoglobin (Bld) [Mass/Vol] 15.2 g/dL Normal 14.0-18.0 [facility] Comment on above: Performed By: #### C BC ####[facility] [address] [place] [address]Dr. Wyatt Aldrich IG # 0.09 10e3/ul Critically high 0.00-0.03 [facility] Comment on above: Performed By: #### C BC ####[facility] [address] [place] [address]Dr. Wyatt Aldrich IG % 0.4 % Normal 0.0-0.[address] [facility] Comment on above: Performed By: #### C BC ####[facility] [address] [place] [id number]. Wyatt Aldrich LYMPH # 1.1 103/ul Critically low 1.2-3.8 [facility] Comment on above: Performed By: #### C BC ####[facility] [address] [place], [place] [address]Dr. Wyatt Aldrich Lymphocytes/100 WBC (Bld) 5.1 % Critically low 20.5-60.[address] [facility] Comment on above: Performed By: #### C BC ####[facility] [address] [place] [id number]. Wyatt Aldrich MANUAL DIFF REQ NO Normal [facility] Comment on above: Performed By: #### C BC ####[facility] [address] [place] [id number]. Wyatt Aldrich MCH (RBC) [Entitic mass] 30.2 pg Normal 25.9-34.[address] [facility] Comment on above: Performed By: #### C BC ####[facility] [address] [place], [place] [address]Dr. Wyatt Aldrich MCHC (RBC) [Mass/Vol] 33.1 g/dL Normal 29.9-35.[address] [facility] Comment on above: Performed By: #### C BC ####[facility] [address] [place], [place] [address]Dr. Jossielalo Aldrich MCV (RBC) [Entitic vol] 91.3 fL Normal 80.0-94.[address] [facility] Comment on above: Performed By: #### C BC ####[facility] [address] [place], [place] [address]Dr. Wyatt Aldrich MONO # 1.4 103/ul Critically high 0.3-0.8 [facility] Comment on above: Performed By: #### C BC ####[facility] [address] [place], [place] [address]Dr. Wyatt Aldirch Monocytes/100 WBC (Bld) 6.7 % Normal 1.7-12.[address] [facility] Comment on above: Performed By: #### C BC ####[facility] [address] [place], [place] [address]Dr. Jossielalo Aldrich NEUT # 18.5 103/ul Critically high 1.4-6.5 [facility] Comment on above: Performed By: #### C BC ####[facility] [address] [place], [place] [address]Dr. Wyatt Aldrich Neutrophils/100 WBC (Bld) 87.4 % Critically high 43.0-75.[address] [facility] Comment on above: Performed By: #### C BC ####[facility] [address] [place], [place] [address]Dy. Wyatt Aldrich Platelet mean volume (Bld) [Entitic vol] 9.3 fL Critically low 9.5-13.[address] [facility] Comment on above: Performed By: #### C BC ####[facility] [address] [place], [place] [address]Ey. Wyatt Aldrich PLT 303 103/ul Normal 150-[address] [facility] Comment on above: Performed By: #### C BC ####[facility] [address] [place], [place] [address]Py. Wyatt Aldrich RBC 5.03 106/ul Normal 4.70-6.[address] [facility] Comment on above: Performed By: #### C BC ####[facility] [address] [place], [place] [address]Hg. Wyatt Aldrich WBC 21.2 103/ul Critically high 4.0-11.0 [facility] Comment on above: Performed By: #### C BC ####[facility] [address] [place], [place] [address]. [address] CT ABD/PELVIS WO CONon 05-29 [...] BOO GUZMAN Date: 2022-05-29 17:[address] [facility] ER URINE PROFILEon 2 Bilirubin Ql (U) Negative Normal NEGATIVE [facility] Comment on above: Performed By: #### U MICRO, ERUR #### [facility] [address] [place] [address] [address] Wyatt Aldrich Clarity (U) CLEAR Normal CLEAR [facility] Comment on above: Performed By: #### U MICRO, ERUR #### [facility] [address] [place] [address] [address] Wyatt Aldrich Color (U) LT. YELLOW Normal YELLOW [facility] Comment on above: Performed By: #### U MICRO, ERUR #### [facility] [address] [place] [address] Dr. Wyatt Aldrich ERUAHD A micrscopic examination will be performed if indicated. Normal [facility] Comment on above: Performed By: #### U MICRO, ERUR #### [facility] [address] [place] [address] [address] Wyatt Aldrich Glucose Ql (U) Negative Normal NEGATIVE [facility] Comment on above: Performed By: #### U MICRO, ERUR #### [facility] [address] [place] [address] [address] Wyatt Aldrich Hemoglobin Ql (U) TRACE-INTACT Abnormal NEGATIVE [facility] Comment on above: Performed By: #### U MICRO, ERUR #### [facility] [address] [place] [address] [address] Wyatt Aldrich Ketones Ql (U) Negative Normal NEGATIVE [facility] Comment on above: Performed By: #### U MICRO, ERUR #### [facility] [address] [place] [address] Dr. Wyatt Aldrich LEUKOCYTES Negative Normal NEGATIVE [facility] Comment on above: Performed By: #### U MICRO, ERUR #### [facility] [address] [place] [address] [address] Wyatt Aldrich Nitrite Ql (U) Negative Normal NEGATIVE [facility] Comment on above: Performed By: #### U MICRO, ERUR #### [facility] [address] [place] [address] Dr. Wyatt Aldrich pH (U) 7.0 [pH] Normal 5-9 [facility] Comment on above: Performed By: #### U MICRO, ERUR #### [facility] [address] [place] [address] Dr. Wyatt Aldrich SPEC GRAVITY 1.020 Normal 1.005-<=1.025 [facility] Comment on above: Performed By: #### U MICRO, ERUR #### [facility] [address] [place] [address] Dr. Wyatt Aldrich UA PROTEIN Negative Normal NEGATIVE/ TRACE [facility] Comment on above: Performed By: #### U MICRO, ERUR #### [facility] [address] [place] [address] Dr. Wyatt Aldrich UR MICRO IND INDICATED Normal [facility] Comment on above: Performed By: #### U MICRO, ERUR #### [facility] [address] [place] [address] Dr. Wyatt Aldrich Urobilinogen Qn (U) 0.2 {Sharon'U}/dL Normal 0.2 - 1. 0 [facility] Comment on above: Performed By: #### U MICRO, ERUR #### [facility] [address] [place] [address] Dr. Wyatt Aldrich PROF 14(COMP METB)on 022 Albumin [Mass/Vol] 3.9 g/dL Normal 3.4-5.0 [facility] Comment on above: Performed By: #### C MP #### [facility] [address] [place] [address] Dr. Wyatt Aldrich Albumin/Globulin [Mass ratio] 1.1 {ratio} Normal [facility] Comment on above: Performed By: #### C MP #### [facility] [address] [place] [address] Dr. Wyatt Aldrich ALP [Catalytic activity/Vol] 70 U/L Normal 46-116 [facility] Comment on above: Performed By: #### C MP #### [facility] [address] [place] [address] [address] Wyatt Aldrich ALT [Catalytic activity/Vol] 38 U/L Normal 16-63 [facility] Comment on above: Performed By: #### C MP #### [facility] [address] [place] [address] [address] Wyatt Aldrich Anion gap [Moles/Vol] 12.6 mmol/L Normal [facility] Comment on above: Performed By: #### C MP #### [facility] [address] [place] [address] [address] Wyatt Aldrich AST [Catalytic activity/Vol] 20 U/L Normal 15-37 [facility] Comment on above: Performed By: #### C MP #### [facility] [address] [place] [address] Dr. Wyatt Aldrich Bilirubin [Mass/Vol] 0.6 mg/dL Normal 0.2-1.0 [facility] Comment on above: Performed By: #### C MP #### [facility] [address] [place] [address] [address] Wyatt Aldrich Calcium [Mass/Vol] 8.7 mg/dL Normal 8.5-10.1 [facility] Comment on above: Performed By: #### C MP #### [facility] [address] [place] [address] [address] Wyatt Aldrich Chloride [Moles/Vol] 95 mmol/L Critically low 98-107 [facility] Comment on above: Performed By: #### C MP #### [facility] [address] [place] [address] [address] Wyatt Aldrich CO2 [Moles/Vol] 29.9 mmol/L Normal 21.0-32.0 [facility] Comment on above: Performed By: #### C MP #### [facility] [address] [place] [address] [address] Wyatt Aldrich Creatinine [Mass/Vol] 1.04 mg/dL Normal 0.70-1.30 [facility] Comment on above: Performed By: #### C MP #### [facility] [address] [place] [address] [address] Wyatt Aldrich EGFR-AF GAMBIAN >60 Normal >=60 [facility] Comment on above: Performed By: #### C MP #### [facility] [address] [place] [address] [address] Wyatt Aldrich EGFR-NON AF GAMBIAN >60 Normal >=60 [facility] Comment on above: Performed By: #### C MP #### [facility] [address] [place] [address] [address] Wyatt Aldrich Globulin (S) [Mass/Vol] 3.4 g/dL Normal [facility] Comment on above: Performed By: #### C MP #### [facility] [address] [place] [address] Dr. Wyatt Aldrich Glucose [Mass/Vol] 148 mg/dL Critically high 74-106 [facility] Comment on above: Performed By: #### C MP #### [facility] [address] [place] [address] [address] Wyatt Aldrich Potassium [Moles/Vol] 4.5 mmol/L Normal 3.5-5.1 [facility] Comment on above: Performed By: #### C MP #### [facility] [address] [place] [address] Dr. Wyatt Aldrich Protein [Mass/Vol] 7.3 g/dL Normal 6.4-8.2 [facility] Comment on above: Performed By: #### C MP #### [facility] [address] [place] [address] [address] Wyatt Aldrich Sodium [Moles/Vol] 133 mmol/L Critically low 136-145 [facility] Comment on above: Performed By: #### C MP #### [facility] [address] [place] [address] [address] Wyatt Aldrich Urea nitrogen [Mass/Vol] 15.0 mg/dL Normal 7.0-18.0 [facility] Comment on above: Performed By: #### C MP #### [facility] [address] [place] [address] Dr. Wyatt Aldrich Urea nitrogen/Creatinine [Mass ratio] 14.4 mg/mg Normal [facility] Comment on above: Performed By: #### C MP #### [facility] [address] [place] [address] Dr. Wyatt Aldrich URINE MICROSCOPIC ONLYon BACTERIA NONE SEEN Normal NONE SEEN [facility] Comment on above: Performed By: #### U MICRO, ERUR #### [facility] [address] [place] [address] Dr. Wyatt Aldrich Bacteria identified Cx Nom (U) NOT INDICATED Normal [facility] Comment on above: Performed By: #### U MICRO, ERUR #### [facility] [address] [place] [address] Dr. Wyatt Aldrich CAST NONE SEEN Normal NONE SEEN [facility] Comment on above: Performed By: #### U MICRO, ERUR #### [facility] [address] [place] [address] Dr. Wyatt Aldrich Crystals LM Nom (Urine sed) NONE SEEN Normal NONE SEEN [facility] Comment on above: Performed By: #### U MICRO, ERUR #### [facility] [address] [place] [address] Dr. Wyatt Aldrich Epithelial cells LM Ql (Urine sed) NONE SEEN Normal NONE SEEN /RARE [facility] Comment on above: Performed By: #### U MICRO, ERUR #### [facility] [address] [place] [address] Dr. Wyatt Aldrich MUCOUS NONE SEEN Normal NONE SEEN [facility] Comment on above: Performed By: #### U MICRO, ERUR #### [facility] [address] [place] [address] Dr. Wyatt Aldrich RBC 2-5 Abnormal 0-[address] [facility] Comment on above: Performed By: #### U MICRO, ERUR #### [facility] [address] [place] [address] Dr. Wyatt Aldrich WBC NONE SEEN Normal NONE SEEN [facility] Comment on above: Performed By: #### U MICRO, ERUR #### [facility] [address] [place], [place] [address] Dr. Wyatt Aldrich T4 LABCORPon 01-29-2022 T4 [Mass/Vol] 9.1 ug/dL Normal 4.5-12.0 [facility] Comment on above: Performed By: #### T 4LC ####[facility] [address] [place] [id number]. Wyatt Aldrich CBC AUTO DIFFon 01-28-2022 BASO # 0.1 103/ul Normal 0.0-0.1 [facility] Comment on above: Performed By: #### C BC ####[facility] [address] [place] [address]Dr. Wyatt Aldrich Basophils/100 WBC (Bld) 0.6 % Normal 0.2-2.0 [facility] Comment on above: Performed By: #### C BC ####[facility] [address] [place], [place] [address]Dr. Wyatt Aldrich EO # 0.2 103/ul Normal 0.0-0.7 [facility] Comment on above: Performed By: #### C BC ####[facility] [address] [place], [place] [address]Dr. Wyatt Aldrich Eosinophils/100 WBC (Bld) 2.4 % Normal 0.9-7.0 [facility] Comment on above: Performed By: #### C BC ####[facility] [address] [place], [place] [address]Dr. Wyatt Aldrich Erythrocyte distribution width (RBC) [Ratio] 12.5 % Normal 11.0-15.[address] [facility] Comment on above: Performed By: #### C BC ####[facility] [address] [place], [place] [address]DrCullen Aldrich Hematocrit (Bld) [Volume fraction] 43.5 % Normal 42.0-54.0 [facility] Comment on above: Performed By: #### C BC ####[facility] [address] [place], [place] [address]DrCullen Aldrich Hemoglobin (Bld) [Mass/Vol] 14.4 g/dL Normal 14.0-18.0 [facility] Comment on above: Performed By: #### C BC ####[facility] [address] [place] [address]DrCullen Aldrich IG # 0.03 10e3/ul Normal 0.00-0.03 [facility] Comment on above: Performed By: #### C BC ####[facility] [address] [place] [address]DrCullen Aldrich IG % 0.4 % Normal 0.0-0.5 [facility] Comment on above: Performed By: #### C BC ####[facility] [address] [place], [place] [address]DrCullen Aldrich LYMPH # 2.1 103/ul Normal 1.2-3.8 [facility] Comment on above: Performed By: #### C BC ####[facility] [address] [place] [address]DrCullen Aldrich Lymphocytes/100 WBC (Bld) 24.8 % Normal 20.5-60.0 [facility] Comment on above: Performed By: #### C BC ####[facility] [address]gcbje36[address] [place] [address]DrCullen Aldrich MANUAL DIFF REQ NO Normal [facility] Comment on above: Performed By: #### C BC ####[facility] Vwfvybbmij[address] [place] [address]DrCullen Aldrich MCH (RBC) [Entitic mass] 30.6 pg Normal 25.9-34.[address] [facility] Comment on above: Performed By: #### C BC ####[facility] [address]xb[address]imu[address] [place] [id number] Aldrich MCHC (RBC) [Mass/Vol] 33.1 g/dL Normal 29.9-35.[address] [facility] Comment on above: Performed By: #### C BC ####[facility] [address]gdevhtptl[address] [place] [id number] Aldrich MCV (RBC) [Entitic vol] 92.6 fL Normal 80.0-94.0 [facility] Comment on above: Performed By: #### C BC ####[facility] Xoewqsyllx32[address] [place] [address]Dr. Wyatt Aldrich MONO # 0.6 103/ul Normal 0.3-0.[address] [facility] Comment on above: Performed By: #### C BC ####[facility] Khscbnedki[address] [place] [address]Dr. Wyatt Aldrich Monocytes/100 WBC (Bld) 7.7 % Normal 1.7-12.[address] [facility] Comment on above: Performed By: #### C BC ####[facility] Ifnwvrbkyd5865 [place] [address]Dr. Wyatt Aldrich NEUT # 5.3 103/ul Normal 1.4-6.[address] [facility] Comment on above: Performed By: #### C BC ####[facility] [address] [place], [place] [address]Dr. Wyatt Aldrich Neutrophils/100 WBC (Bld) 64.1 % Normal 43.0-75.[address] [facility] Comment on above: Performed By: #### C BC ####[facility] [address] [place], [place] [address]Dr. Wyatt Aldrich Platelet mean volume (Bld) [Entitic vol] 9.4 fL Critically low 9.5-13.[address] [facility] Comment on above: Performed By: #### C BC ####[facility] [address] [place], [place] [address]Dr. Wyatt Aldrich PLT 280 103/ul Normal 150-[address] [facility] Comment on above: Performed By: #### C BC ####[facility] [address] [place], [place] [id number]. Wyatt Aldrich RBC 4.70 106/ul Normal 4.70-6.[address] [facility] Comment on above: Performed By: #### C BC ####[facility] [address]ptmjzbr[address] [place] [address]Dr. Jossielalo Valdemar WBC 8.3 103/ul Normal 4.0-11.[address] [facility] Comment on above: Performed By: #### C BC ####[facility] B[address]ueebdsq[address] [place] [id number]. Wyatt Aldrich FREE T3on 01-28-2022 FREE T3 2.70 pg/mlL Normal 2.18-3.98 [facility] Comment on above: Performed By: #### L IPID, CMP, TSH, FT3 ####[facility] [address]grncn25[address] [place] [id number] Aldrich GLYCOHEMOGLOBIN A1Con 2021 ADA RECOMMENDATION SEE BELOW Normal [facility] Comment on above: Result Comment: ADA RECOMMENDED LIMIT 4.0 - 6.0 ADA THERAPEUTIC TARGET < 7.0 ACTION SUGGESTED > 7.0 Performed By: #### A 1C #### [facility] [address] [place] [address] [address] Wyatt Aldrich Glucose [Mass/Vol] 143 mg/dL Normal [facility] Comment on above: Performed By: #### A 1C #### [facility] [address] [place] [address] [address] Wyatt Aldrich HbA1c (Bld) [Mass fraction] 6.6 % Critically high 4.5-6.2 [facility] Comment on above: Performed By: #### A 1C #### [facility] [address] [place] [address] [address] Wyatt Aldrich LIPID PROFILEon 01-28-2022 CHOL-HDL RATIO NORM SEE BELOW Normal [facility] Comment on above: Result Comment: 3.3 - 4.4 LOW RISK 4.4 - 7.1 AVERAGE RISK 7.1 - 11.0 MODERATE RISK >11.0 HIGH RISK Performed By: #### L IPID, CMP, TSH, FT3 ####[facility] [address]vxacz[address] [place] [phone]. Wyatt Aldrich Cholesterol [Mass/Vol] 176 mg/dL Normal <=200 [facility] Comment on above: Performed By: #### L IPID, CMP, TSH, FT3 ####[facility] [address]aohrsb[address] [place] [address]Dr. Wyatt Aldrich Cholesterol in HDL [Mass/Vol] 35 mg/dL Critically low 40-[address] [facility] Comment on above: Performed By: #### L IPID, CMP, TSH, FT3 ####[facility] [address]ulohi[address] [place] [address]Dr. Wyatt Aldrich Cholesterol in LDL [Mass/Vol] 94.4 mg/dL Normal [facility] Comment on above: Performed By: #### L IPID, CMP, TSH, FT3 ####[facility] Ikattijrnd6616 [place] [phone]. Wyatt Aldrich Cholesterol.total/Cho lesterol in HDL [Mass ratio] 5.0 {ratio} Normal [facility] Comment on above: Performed By: #### L IPID, CMP, TSH, FT3 ####[facility] [address]fauwptnbw[address] [place] [address]Dr. Wyatt Aldrich HDL NORMAL > or = 60 mg/dl - LO W CARDIOVASCULAR RISK <40 mg/dl - HIGH CARDIOVASCULAR RISK Normal [facility] Comment on above: Performed By: #### L IPID, CMP, TSH, FT3 ####[facility] [address]jroaecap[address] [place] [address]Dr. Wyatt Aldrich LDL CALC NORMAL SEE BELOW Normal [facility] Comment on above: Result Comment: <100 mg/dl OPTIMAL 100 - 129 mg/dl NEAR OR ABOVE OPTIMAL 130 - 159 mg/dl BORDERLINE HIGH 160 - 189 mg/dl HIGH >190 mg/dl VERY HIGH Performed By: #### L IPID, CMP, TSH, FT3 ####[facility] Refuzthohj[address] [place] [id number]. Wyatt Aldrich Triglyceride [Mass/Vol] 233 mg/dL Critically high <=[address] [facility] Comment on above: Performed By: #### L IPID, CMP, TSH, FT3 ####[facility] Jsxvwgaiwn034[address] [place] [address]Dr. Wyatt Aldrich VLDL CALC 46.6 mg/dL Normal [facility] Comment on above: Performed By: #### L IPID, CMP, TSH, FT3 ####[facility] X[address]xacgzw[address] [place] [address]Dr. Wyatt Aldrich OCC BLD IMMUNO SCREENon 01-03 OCCULT BLOOD Negative Normal NEGATIVE [facility] Comment on above: Performed By: #### O BSCRN #### [facility] [address] [place] [address] [address] Wyatt Aldrich PROF 14(COMP METB)on 022 Albumin [Mass/Vol] 3.4 g/dL Normal 3.4-5.0 [facility] Comment on above: Performed By: #### L IPID, CMP, TSH, FT3 ####[facility] [address]bp[address]stly[address] [place] [address]Dr. Wyatt Aldrich Albumin/Globulin [Mass ratio] 1.0 {ratio} Normal [facility] Comment on above: Performed By: #### L IPID, CMP, TSH, FT3 ####[facility] Oghistnjhc24[address] [place] [address]Dr. Wyatt Aldrich ALP [Catalytic activity/Vol] 65 U/L Normal 46-116 [facility] Comment on above: Performed By: #### L IPID, CMP, TSH, FT3 ####[facility] Eiicnxzvql[address] [place] [address]Dr. Wyatt Aldrich ALT [Catalytic activity/Vol] 45 U/L Normal 16-63 [facility] Comment on above: Performed By: #### L IPID, CMP, TSH, FT3 ####[facility] Fojgmrmcfa60[address] [place] [address]Dr. Wyatt Aldrich Anion gap [Moles/Vol] 9.7 mmol/L Normal [facility] Comment on above: Performed By: #### L IPID, CMP, TSH, FT3 ####[facility] Vtoqlfnmqw6776 [place] [address]Dr. Wyatt Aldrich AST [Catalytic activity/Vol] 20 U/L Normal 15-37 [facility] Comment on above: Performed By: #### L IPID, CMP, TSH, FT3 ####[facility] [address]ddnww[address] [place] [address]Dr. Wyatt Aldrich Bilirubin [Mass/Vol] 0.4 mg/dL Normal 0.2-1.[address] [facility] Comment on above: Performed By: #### L IPID, CMP, TSH, FT3 ####[facility] [address]zvoxbbp[address] [place] [address]Dr. Wyatt Aldrich Calcium [Mass/Vol] 8.5 mg/dL Normal 8.5-10.1 [facility] Comment on above: Performed By: #### L IPID, CMP, TSH, FT3 ####[facility] F[address]fplrlmq[address] [place] [address]Dr. Wyatt Aldrich Chloride [Moles/Vol] 101 mmol/L Normal 98-[address] [facility] Comment on above: Performed By: #### L IPID, CMP, TSH, FT3 ####[facility] [address]jmcicny[address] [place] [address]Dr. Wyatt Aldrich CO2 [Moles/Vol] 33.3 mmol/L Critically high 21.0-32.[address] [facility] Comment on above: Performed By: #### L IPID, CMP, TSH, FT3 ####[facility] Fcjwvhloel[address] [place] [address]Dr. Wyatt Aldrich Creatinine [Mass/Vol] 0.77 mg/dL Normal 0.70-1.30 [facility] Comment on above: Performed By: #### L IPID, CMP, TSH, FT3 ####[facility] T[address]xd[address]picny[address] [place] [address]Dr. Wyatt Aldrich EGFR-AF GAMBIAN >60 Normal >=60 [facility] Comment on above: Performed By: #### L IPID, CMP, TSH, FT3 ####[facility] Gwkalxbwvy[address] [place] [address]Dr. Wyatt Aldrich EGFR-NON AF GAMBIAN >60 Normal >=[address] [facility] Comment on above: Performed By: #### L IPID, CMP, TSH, FT3 ####[facility] Bnbooopfmq[address] [place] [address]Dr. Wyatt Aldrich Globulin (S) [Mass/Vol] 3.3 g/dL Normal [facility] Comment on above: Performed By: #### L IPID, CMP, TSH, FT3 ####[facility] Ssbkdpmfff3[address] [place] [address]Dr. Wyatt Aldrich Glucose [Mass/Vol] 137 mg/dL Critically high 74-106 [facility] Comment on above: Performed By: #### L IPID, CMP, TSH, FT3 ####[facility] [address]lsiwqkozi[address] [place] [address]Dr. Wyatt Aldrich Potassium [Moles/Vol] 4.0 mmol/L Normal 3.5-5.1 [facility] Comment on above: Performed By: #### L IPID, CMP, TSH, FT3 ####[facility] V[address]jc[address]zrtfc[address] [place] [address]Dr. Wyatt Aldrich Protein [Mass/Vol] 6.7 g/dL Normal 6.4-8.2 [facility] Comment on above: Performed By: #### L IPID, CMP, TSH, FT3 ####[facility] [address] [place], [place] [address]Dr. Wyatt Aldrich Sodium [Moles/Vol] 140 mmol/L Normal 136-145 [facility] Comment on above: Performed By: #### L IPID, CMP, TSH, FT3 ####[facility] [address]scbcerbe[address] [place] [address]Dr. Wyatt Aldrich Urea nitrogen [Mass/Vol] 13.0 mg/dL Normal 7.0-18.0 [facility] Comment on above: Performed By: #### L IPID, CMP, TSH, FT3 ####[facility] [address]fcz[address] [place] [address]Dr. Wyatt Aldrich Urea nitrogen/Creatinine [Mass ratio] 16.9 mg/mg Normal [facility] Comment on above: Performed By: #### L IPID, CMP, TSH, FT3 ####[facility] Dpvnlzzsif[address] [place] [address]Dr. Wyatt Aldrich TSHon 01-28-2022 TSH 5.562 uIU/mL Critically high 0.358-3.740 [facility] Comment on above: Performed By: #### L IPID, CMP, TSH, FT3 ####[facility] [address] [place], [place] [address]Yt. Wyatt Aldrich TSH RANGE SEE BELOW Normal [facility] Comment on above: Result Comment: <0.3 4 UIU/ml HYPERTHYROID 0.34-5.60 UIU/ml EUTHYROID >5.60 UIU/ml HYPOTHYROID Performed By: #### L IPID, CMP, TSH, FT3 ####[facility] [address] [place], [place] [address]Bs. Wyatt Aldrich XR KUB 1 VIEWon 01-20-2022 [...] [place] Date: 2022-01-20 14:[address] [facility] MRI LSPINE WO W CONon 2021 [place] EXAMINATION: [place] CON HISTORY: Prolapsed lumbar intervertebral [...] by: TANISHA CHIU Date: 2021-10-04 11:23 Normal [facility] XR LSPINE MIN 4 VIEWSon [...] by: SOLO SAVAGE Date: 2021-09-27 11:31 Normal [facility] Vital Signs Date Time Vital Sign Value Performing Clinician Jessi chowdhury 06-06-2023 08:48-0400 Blood Pressure Location Yovany GIOVANA [facility] 06-06-2023 08:48-0400 Diastolic blood pressure 66 mm[Hg] Yovany GIOVANA [facility] 06-06-2023 08:48-0400 Heart rate 83 /min Yovany COOK [facility] 06-06-2023 08:48-0400 Systolic blood pressure 142 mm[Hg] Yovany COOK [facility] 06-17-2022 09:14-0400 Blood Pressure Location Yovany COOK [facility] 06-17-2022 09:14-0400 Diastolic blood pressure 96 mm[Hg] Yovany COOK [facility] 06-17-2022 09:14-0400 Heart rate 67 /min Yovany COOK [facility] 06-17-2022 09:14-0400 Systolic blood pressure 159 mm[Hg] Yovany COOK [facility] 06-10-2022 09:54-0400 Blood Pressure Location Yovany COOK [facility] 06-10-2022 09:54-0400 Diastolic blood pressure 102 mm[Hg] Yovany COOK [facility] 06-10-2022 09:54-0400 Heart rate 68 /min Yovany COOK [facility] 06-10-2022 09:54-0400 Systolic blood pressure 166 mm[Hg] Yovany COOK [facility] 01-21-2022 08:44-0400 Blood Pressure Location Yovany COOK [facility] 01-21-2022 08:44-0400 Diastolic blood pressure 87 mm[Hg] Yovany AKHTAR [facility] 01-21-2022 08:44-0400 Heart rate 72 /min Yovany AKHTAR [facility] 01-21-2022 08:44-0400 Systolic blood pressure 140 mm[Hg] Yovany AKHTAR [facility] Encounters Encounter Date Encounter Type Care Provider Facility Start: 06-11-2024 ambulatory Yovany KAHTAR Facility : [facility] Start: 02-19-2024 End: 02-19-2024 ambulatory Heather Turcios MD Facility:[facility] Start: 02-05-2024 End: 02-05-2024 ambulatory Heather Turcios MD Facility:[facility] Start: 12-25-2023 End: 12-25-2023 ambulatory MICHAEL KIM Not Available Start: 12-21-2023 End: 12-21-2023 ambulatory BALTA OTTO Not Available Start: 12-19-2023 End: 12-19-2023 ambulatory MICHAEL KIM Not Available Start: 06-06-2023 End: 06-07-2023 ambulatory Yovany AKHTAR Facility:[facility] Start: 06-06-2023 End: 06-06-2023 Patient encounter procedure Yovany Aquiles AKHTAR [facility] Start: 06-17-2022 End: 06-18-2022 ambulatory Yovanykourtney AKHTAR Facility:[facility] Start: 06-17-2022 End: 06-17-2022 Patient encounter procedure Yovany AKHTAR [facility] Start: 06-16-2022 End: 06-17-[address] NANCY FERNANDEZ Facility:[facility] Start: 06-10-2022 End: 06-11-2022 ambulatory Yovany AKHTAR Facility:[facility] Start: 06-10-2022 End: 06-10-2022 Patient encounter procedure Yovany AKHTAR [facility] Start: 06-09-2022 End: 06-10-[address] NANCY FERNANDEZ Facility:[facility] Start: 05-29-2022 End: 05-29-[address] NANCY FERNANDEZ Facility:[facility] Start: 05-11-2022 End: 05-11-2022 Patient encounter procedure Yovany AKHTAR [facility] Start: 02-03-2022 Encounter for genera l adult medical examination without abnormal findings DR NANCY FERNANDEZ [facility] Start: 01-28-2022 End: 01-29-[address] NANCY FERNANDEZ Facility:[facility] Start: 01-28-2022 End: 01-29-2022 Encounter for general adult medical examination without abnormal findings DR NANCY FERNANDEZ Facility:[facility] Start: 01-21-2022 End: 01-21-2022 Patient encounter procedure Yovany AKHTAR [facility] Start: 01-20-2022 End: 01-21-2022 [...] on above: Performed By: #### P SAD ####[place] [id number] [place] [address]DrCullen Aldrich Start: 08-13-2020 Extracorporeal shock wave lithotripsy of calculus of kidney Yovany AKHTAR Dental surgical procedure Gr poncho AKHTAR Entire gallbladder ( body structure) Yovany AKHTAR History of tonsillectomy Mitul AKHTAR Kidney stone (disorder) Gee AKHTAR l4 l5 disectomy Yovany AKHTAR carlo anal abcess Yovany Dowling Repair of anal fistula Marvel AKHTAR Immunizations Immunization Date Immunization Notes Care Provider [facility] 04-19-2022 zoster vaccine recombinant Yovany AKHTAR [facility] 02-12-2022 pneumococcal 20-maría nt conjugate vaccine Yovany AKHTAR [facility] 02-03-2022 zoster vaccine recombinant Yovany AKHTAR [facility] 12-08-2020 SARS-CoV-2 (COVID-19 ) mRNA-1273 vaccine Yovany AKHTAR [facility] 11-17-2020 SARS-CoV-2 (COVID-19 ) mRNA BNT-162b2 vax Yovany AKHTAR [facility] 11-11-2020 SARS-CoV-2 (COVID-19 ) mRNA-1273 vaccine Yovany AKHTAR [facility] Payers Date Payer Category Payer Unknown 2023 Unknown [id number] 1965 Unknown [id number] 2.16.84 [id number] 1965 Unknown [id number] 2.16.84 0.1.674010.3.579.2.593 1964 Unknown [id number] 2.16.84 0.1.060559.3.579.2.593 1964 Unknown [id number] 2.16.84 0.1.238952.3.579.2.593 1964 Unknown [id number] 2.16.84 0.1.350862.3.579.2.593 1964 Unknown [id number] 2.16.84 0.1.109522.3.579.2.593 1964 Unknown [id number] 2.16.84 0.1.882345.3.579.2.593 1964 Unknown [id number] 2.16.84 0.1.418781.3.579.2.593 1964 Unknown [id number] 2.16.8 40.1.651463.3.579.2.727 1964 Unknown [id number] 2.16.8 40.1.800474.3.579.2.727 1964 Unknown [id number] 2.16.8 40.1.060983.3.579.2.727 1964 Unknown [id number] 2.16.8 40.1.107246.3.579.2.727 1964 Unknown [id number] 2.16.84 0.1.212833.3.579.2.1259 1964 Unknown [id number] 2.16.84 0.1.577668.3.579.2.1259 1964 Unknown [id number] 2.16.84 0.1.912747.3.579.2.1259 1964 Unknown [id number] 2.16. 840.1.283319.3.579.2.196 1964 Unknown [id number] 2.16. 840.1.392529.3.579.2.196 1960 Private Health Insurance [id number] Social History Date Type Detail Facility Start: 01-15-2021 End: 06-06-2023 Tobacco smoking status Ex-smoker (finding) [facility] [place] Tobacco smoking status Never [facility] [place] Sex Assigned At Male [facility] [place] Functional Status Date Assessment Result Facility 06-06-2023 Functional Status N/A [facility] 06-17-2022 Functional Status N/A [facility] 06-10-2022 Functional Status N/A [facility] Clinical Notes 01-21-2022 to 06-06-2023 Laboratory [...] include: ?8 oz (237 mL) of milk, dkpodlq-jlqjfinqruul-bjguc milk, and calcium-fortifiedfruit juice. Calcium-fortified means that [...] ?Spinach (cooked), rhubarb, beets, sweet potatoes, and Tuvaluan chard. ?Peanuts. ?Potato chips, vincentian fries, and baked potatoes with skin on. ?Nuts and nut products. ?Chocolate. If you regularly take a diuretic medicine, make sure to eat at least 1 or 2 servings of fruits or vegetables that are high in potassium each day. These include: ?Avocado. ?Banana. ?Rudolph, prune, carrot, or tomato juice. ?Baked potato. [...] magnesium, fish oil, or vitamin B6. Take udhl-vea-baughnr and prescription medicines only as told by [...] Casseroles. Pizza. Lasagna. Frozen meals. Potato chips. Venezuelan fries. The items listed above may not [...] provider. Document Revised: 05/02/2022 Document Reviewed: 05/02/2022 [employer] Patient Education 2022 [employer] 3[employer]. Follow Up Care 01/21/2022 09:03:45 With:GIOVANA CANTOR, Yovany Kwan, URL Address: [address] [address]- When:Within 1 Year(s) Comments:w/MT [facility] 06-17-2022 Hospital Discharge instructions Patient Education 06/17/2022 [...] include: ?Spinach. ?Rhubarb. ?Beets. ?Potato chips and vincentian fries. ?Nuts. If you regularly take a diuretic medicine, make sure to eat at least 1 2 fruits or vegetables high in potassium each day. These include: ?Avocado. ?Banana. ?Rudolph, prune, carrot, or tomato juice. ?Baked potato. [...] Casseroles. Pizza. Lasagna. Frozen meals. Potato chips. Venezuelan fries. Summary You can reduce your risk [...] 12/16/2011 Document Revised: 12/11/2019 Document Reviewed: 08/01/2017 [employer] Patient Education 2020 [employer] 3D. Follow Up Care 06/10/2022 10:24:22 With:GIOVANA CANTOR, Yovany P, URL Address: [address] [place] [id number]- When:6 months Comments:w/ MT [facility] 06-10-2022 Hospital Discharge instructions Patient Education [...] include: ?Spinach. ?Rhubarb. ?Beets. ?Potato chips and vincentian fries. ?Nuts. If you regularly take a diuretic medicine, make sure to eat at least 1 2 fruits or vegetables high in potassium each day. These include: ?Avocado. ?Banana. ?Rudolph, prune, carrot, or tomato juice. ?Baked potato. [...] Casseroles. Pizza. Lasagna. Frozen meals. Potato chips. Venezuelan fries. Summary You can reduce your risk [...] 12/16/2011 Document Revised: 12/11/2019 Document Reviewed: 08/01/2017 [employer] Patient Education 2020 [employer] 3D. Follow Up Care 05/30/2022 09:25:01 With:GIOVANA CANTOR, Yovany Kwan, URL Address: [facility] [address] [id number]- When:2 weeks Comments:MT [facility] 01-21-2022 Hospital Discharge instructions [...] urethra. Follow these instructions at home: Take kekh-oxq-jkeblpv and prescription medicines only as told by [...] 08/21/2006 Document Revised: 07/16/2019 Document Reviewed: 09/25/2017 [employer] Patient Education 2020 [employer] 3D. Follow Up Care 01/15/2021 08:45:48 With:Yovany AKHTAR MD, URL Address: [address] [place], [place] [id number]- When:01/21/2023 Comments:with PSA and x-ray [facility] Evaluation + Plan note Future Appointments Appointment Date:02/24/2023 08:00:00 AM Scheduled Provider:Yovany AKHTAR MD Location:[facility] Appointment Type:URO Office Visit [facility] Evaluation + Plan note Future Appointments Appointment Date:02/24/2023 08:00:00 AM Scheduled Provider:Yovany AKHTAR MD Location[facility] Appointment Type:URO Office Visit Future Scheduled TestsPT & PTT 04/20/22BUN 04/20/22Creatinine 04/20/22Electrolyte Panel 04/20/22CBC w/ Auto Diff 04/20/22 [facility] Evaluation + Plan note Future Appointments Appointment Date:06/17/2022 09:15:00 AM Scheduled Provider:Yovany AKHTAR MD Location:[facility] Appointment Type:URO Office Visit Appointment Date:02/24/2023 08:00:00 AM Scheduled Provider:Yovany AKHTAR MD Location:[facility] Appointment Type:URO Office Visit [facility] Evaluation + Plan note Future Appointments Appointment Date:06/11/2024 08:00:00 AM Scheduled Provider:Yovany AKHTAR MD Location:[facility] Appointment Type:URO Office Visit [facility] course Narrative No data available for this section [facility] Hospital Discharge instructions No data available for this section [facility] Progress note No data available for this section [facility] Summary Purpose Family History No Family [...] content) Personnel Name: Nancy Fernandez MD Address: [address] [place] [address] Personnel Name: Nancy Fernandez MD Address: Address: [address] [place] [address] Personnel Name: Nancy Fernandez MD Address: Address: [address] [place] [address] Personnel Name: Nancy Fernandez MD Address: Address: [address] [place] [address] (unrecognized sect ion and content) No Status Records FoundNo Status Records FoundNo Status Records FoundNo Status Records Found INFORMATION SOURCE (unrecogn ized section and content) DATE CREATED AUTHOR 07/07/2022 [facility] [facility] DATE CREATED AUTHOR AUTHOR'S ORGANIZ ATION 06/08/2023 [facility] DATE CREATED AUTHOR AUTHOR'S ORGANIZ ATION 12/26/2023 [facility] DATE CREATED AUTHOR AUTHOR'S ORGANIZ ATION 02/25/2024 [facility] FOR RECORDS PERTAINING TO PATIENTS WHO [...] BE BASED ON THE PRIMARY CLINICAL RECORDS. [employer] [facility]. provides no warranty or guarantee of the accuracy or completeness of information in this document.
--- NOTE | 2024-02-29 08:06 | P.CN_ITS ---
Consult Note: HPI Data of Consult Patient: known to practice within the last 3 years Consult date: 01/10/24 Requesting Physician: Shilpi Britton NP Primary Care Provider: Asim Fernandez MD Consult Narrative Reason for consult: chronic low back pain, left radiculopathy Narrative: Elvis Hernandez a pleasant 58 year old male presents for assessment of chronic low back pain with left sided radiculopathy. Chronic low back pain greater than 10 years, hx of lumbar discectomy in 2009. Patient recently completed greater than 6 weeks of PT/HEP without improvement, updated lumbar xray and MRI below consistent with degenerative changes as well as multilevel central and foraminal stenosis. Previously reported chronic low back pain and weakness of left leg, pain increasing to 8/10 with standing walking activity. Pain improved with forward flexion and rest. Patient denies loss of bowel/bladder, no falls. Failed to benefit from motrin, tramadol, tylenol. Recently underwent left L3/4 L4% TFESI x2 with >80% improvement in pain and functional ability ongoing. Patient very pleased witht the outcome. Pain today 0-1/10 nagging low back, denies numbness tingling and weakness. cc:: CC: Shilpi Britton NP Review of Systems ROS Status of ROS 10 or more systems reviewed and unremark able except as noted in history and below Musculoskeletal Reports: back pain PFSH PFSH Medical History Surgical procedures, elective ?Z41.9 - Encounter for procedure for purposes other than remedying health state, unspecified (ICD-10) Neuropathy ?G62.9 - Polyneuropathy, unspecified (ICD-10) Normal colonoscopy Renal lithiasis ?N20.0 - Calculus of kidney (ICD-10) HTN (hypertension) ?I10 - Essential (primary) hypertension (ICD-10) Hypothyroidism ?E03.9 - Hypothyroidism, unspecified (ICD-10) Diabetes ?E11.9 - Type 2 diabetes mellitus without complications (ICD-10) Traumatic brain injury ?S06.9XAA - Unspecified intracranial injury with loss of consciousness status unknown, initial encounter (ICD-10) MARGE (obstructive sleep apnea) ?G47.33 - Obstructive sleep apnea (adult) (pediatric) (ICD-10) COPD (chronic obstructive pulmonary disease) ?J44.9 - Chronic obstructive pulmonary disease, unspecified (ICD-10) 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 - Acute embolism and thrombosis of superior vena cava (ICD-10) Herniated lumbar intervertebral disc ?M51.26 - Other intervertebral disc displacement, lumbar region (ICD-10) Surgical History Pain management ?R52 - Pain, unspecified (ICD-10) History of cholecystectomy ?Z90.49 - Acquired absence of other specified parts of digestive tract (ICD- 10) History of tonsillectomy ?Z90.89 - Acquired absence of other organs (ICD-10) Hx of lithotripsy ?Z98.890 - Other specified postprocedural states (ICD-10) Hx of lumbar discectomy ?Z98.890 - Other specified postprocedural states (ICD-10) Meds Home Medications and Allergies Home Medications ?Medication ?Instructions ?Recorded ?Confirmed ?Type aspirin 81 mg capsule 81 mg PO DAILY 12/15/23 02/19/24 History carvedilol 25 mg tablet (Coreg) 37.5 mg PO Q12H 12/15/23 02/19/24 History glimepiride 2 mg tablet 2 mg PO DAILY 12/15/23 02/19/24 History hydralazine 50 mg tablet 50 mg PO TID 12/15/23 02/19/24 History hydrochlorothiazide 50 mg tablet 50 mg PO DAILY 12/15/23 02/19/24 History levothyroxine 125 mcg capsule 125 mcg PO DAILY 12/15/23 02/19/24 History metformin 500 mg tablet 500 mg PO BID 12/15/23 02/19/24 History multivitamin 1 tab PO DAILY 12/15/23 02/19/24 History olmesartan 40 mg tablet 40 mg PO DAILY 12/15/23 02/19/24 History pravastatin 20 mg tablet 20 mg PO DAILY 12/15/23 02/19/24 History tramadol 50 mg tablet 50 mg PO QID PRN pain 12/15/23 02/19/24 History Allergies Allergy/AdvReac Type Severity Reaction Status Date / Time No Known Drug Allergies Allergy Verified 02/19/24 07:21 Exam Constitutional Documenting provider has reviewed patient's vital signs: yes Common normals: no apparent distress, oriented x3, healthy appearing, alert and well nourished General appearance: cooperative [facility] Common normals: normocephalic, hearing grossly normal bilaterally and moist oral mucous membranes Head and scalp: normocephalic Eye Common normals: PERRL Pupil: PERRL Neck & C-Spine Common normals: full ROM General: normal visual inspection Chest Common normals: inspection of chest normal Respiratory Common normals: normal respiratory effort, no retractions and no use of accessory muscles Back & Pelvis Lumbar spine/lower back: ROM limited and straight leg raise negative bilaterally Sacroiliac joints: SI joints normal Other: sensation intact BLE, strength 5/5 in BLE negative internal and external rotation of left hip, no tenderness of GTB Extremity Common normals: normal to inspection and full ROM Neuro Common normals: oriented x3, CN's II-XII intact bilaterally, moves all extremities, no focal motor deficits, no sensory deficits noted and deep tendon reflexes 2+ bilaterally Sensorium/orientation: alert Motor exam: strength 5/5 throughout and no movement abnormalities noted Psych Common normals: mental status grossly normal, thought process normal, cooperative, affect normal, speech normal and activity/motor behavior normal Speech: normal speech Thought process: normal thought process Results Imaging Lumbar MRI: Attestation: I have reviewed the pertinent imaging results. Radiologist's impression: There is lumbarization of S1. For dictation purposes, the lowest complete disc space in the lumbar spine considered as S1-S2. Right renal lesion with T2 prolongation not fully characterized by this study and statistically may suggest simple renal cyst. There is normal physiologic lumbar lordosis. The vertebral height is preserved. The conus medullaris is at the level of L1. No signal abnormality within the visualized spinal cord is noted. At the level of L1-L2, there are disc bulge with no neuroforaminal narrowing and no canal stenosis. At the level of L2-L3, there are disc bulge with mild bilateral neuroforaminal narrowing and moderate canal stenosis. At the level of L3-4, there are disc bulge with severe bilateral neuroforaminal narrowing and moderate canal stenosis. At the level of L4-5, there are disc bulge with moderate right and severe left neuroforaminal narrowing and mild canal stenosis. At the level of L5-S1, there are disc bulge with severe bilateral neuroforaminal narrowing and mild canal stenosis. The left S1 nerve root is in close contact with the disc bulge in the lateral recesses. 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 The paraspinal muscles are unremarkable. No abnormal enhancing lesion is noted. Lumbar Xray: Attestation: I have reviewed the pertinent imaging results. Radiologist's impression: Mild anterior wedging deformity of T11 and T12 vertebral bodies. Multilevel endplate degenerative changes, disc disease, anterior spurring and facet arthropathy of the thoracolumbar spine, most prominent from L3 to S1. Additional Findings Additional findings: If on a controlled substance or opioids, I have checked an [place] report on this patient and there are no aberrancies noted in the prescribing history.??If on a controlled substance or opioid a drug screen was completed and reviewed within the last year, and if there has not been a drug screen completed we ordered one today to monitor higher risk, state monitored pain medication use. As part of providing excellent, safe, comprehensive care, the following was completed at our patient's visit: 1. A medication reconciliation and review to ensure accurate knowledge of current/active medications, including asking our patients to inform us about any [id number] medications or herbal remedies/nutritional supplements/alternative remedies. 2. A review to specifically ensure our patients have had annual screening for screening for depression, screening for tobacco use, and screening for unhealthy alcohol use. For concerning screenings had a discussion with the patient, provided patient education, and recommended follow-up with primary care provider when appropriate. If patient noted with a risk of falling, they received education on strength, gait, and balance training to prevent future risk of falling. Assessment and Plan Assessment and Plan (1) Lumbar stenosis with neurogenic claudication: (2) Lumbar facet arthropathy: (3) Lumbar radiculopathy: (4) Obesity: Assessment and Plan: patient working on weight loss. DM recent A1c less than 7%. Not a candidate for vertiflex due to BMI Plan Left L3-4 L4-5 TFESI x2 for moderate to severe stenosis, moderate to severe low back and left leg radicular pain and weakness, neurogenic claudication providing >80% improvement ongoing continue current medications as tolerated through PCP f/u 3 months, sooner if needed
== END 2024-02-29 07:56 | disposition home or self-care (01) ==
LOC: PM 07:56
PROVIDERS: PCP Family Medicine; Visit Provider Nurse Practitioner
DX: M48.062 Spinal stenosis, lumbar region with neurogenic claudication (principal); M47.26 Other spondylosis with radiculopathy, lumbar region; E66.9 Obesity, unspecified
CPT/HCPCS: G0463

== ENCOUNTER 2024-03-04 14:29 | Outpatient (OUT) | payer BC, SELFPAY ==
[2024-03-04 15:10] LABS: Basophils Absolute Auto 0.1 10^3/uL (0.0-0.1); Basophils Percent Auto 0.3 % (0.2-2.0); Eosinophils Absolute Auto 0.1 10^3/uL (0.0-0.7); Eosinophils Percent Auto 0.5 % (0.9-7.0); Hematocrit 43.9 % (42.0-54.0); Hemoglobin 14.4 g/dL (14.0-18.0); Immature Granulocytes Abs Auto 0.07 10^3/uL (0.00-0.03); Immature Granulocytes Pct Auto 0.5 % (0.0-0.5); Lymphocytes Absolute Auto 1.8 10^3/uL (1.2-3.8); Mean Corpuscular HGB Conc 32.8 g/dL (29.9-35.2); Mean Corpuscular Volume 94.6 fL (80.0-94.0); Mean Platelet Volume 9.2 fL (9.5-13.5); Monocytes Percent Auto 6.5 % (1.7-12.0); Neutrophils Absolute Auto 11.9 10^3/uL (1.4-6.5); Neutrophils Percent Auto 80.2 % (43.0-75.0); Platelet Count 368 10^3/uL (150-450); Red Blood Count 4.64 10^6/uL (4.70-6.10); Red Cell Distribution Width 13.3 % (11.0-15.0); White Blood Count 14.9 10^3/uL (4.0-11.0)
[2024-03-04 15:55] LABS: Free T4 1.17 ng/dL (0.76-1.46)
[2024-03-04 16:00] LABS: Alanine Aminotransferase 39 U/L (16-63); Albumin Level 3.4 g/dL (3.4-5.0); Alkaline Phosphatase 78 U/L (46-116); Anion Gap 9.3; Aspartate Amino Transferase 19 U/L (15-37); BUN Creatinine Ratio 23.3; Bilirubin Total 0.4 mg/dL (0.2-1.0); Carbon Dioxide 32.5 mmol/L (21.0-32.0); Chloride 104 mmol/L (98-107); Estimated GFR (African America >60 (>=60); Estimated GFR (Non-African Ame >60 (>=60); Globulin 3.4 g/dL; Glucose 111 mg/dL (74-106); Potassium 3.8 mmol/L (3.5-5.1); Sodium 142 mmol/L (136-145); Thyroid Stimulating Hormone 1.301 uIU/mL (0.358-3.740); Total Protein 6.8 g/dL (6.4-8.2)
== END 2024-03-04 14:30 | disposition home or self-care (01) ==
LOC: LAB 14:31
PROVIDERS: PCP Family Medicine; Visit Provider Family Medicine
DX: R25.2 Cramp and spasm (principal)
CPT/HCPCS: 36415; 80053; 83735; 84439; 84443; 85025

== ENCOUNTER 2024-05-29 08:12 | Outpatient (OUT) | payer BC, SELFPAY ==
--- OUTSIDE RECORDS SUMMARY | 2024-05-29 08:15 | XMS_ITS | CCD ---
Author Organization [facility] Care Team Providers Care Sales Record Clerk Name Role Phone Nancy Fernandez Primary Care [...] DR YOVANY Kwan Admitting Unavailable COOK, DR OYVANY Kwan Attending Unavailable COOK, DR YOVANY Kwan [...] Allergy Hyperactive behavior (finding) [facility] Medications Current Medications Medication Drug Class(es) Dates [...] 30 cap(s), Refills(s) 2, [facility]acy: [id number], 188, cm, 06/10/22 9:57:00 EDT, Height/Length Dosing, [...] 02-19-2019 Episodic Other aftercare (1 source) Other group home (current) drug therapy; Translations: [OTH [facility] CURRENT DRUG THERAPY] Onset: 05-31-20 Episodic Other aftercare (1 source) custodial (current) use of aspirin; Translations: [[facility] CURRENT USE OF ASPIRIN] Onset: 05-31-20 Episodic [...] not elsewhere classified, initial encounter; Translations: [[facility] OT SHRP OB NOT ELSW [...] Interpretation Reference Range Facility Screenson 06-07-2023 Screens [id number]# 1.00CD:127 [facility] Ambulatory Visit Summaryon 1 Ambulatory Visit Summary LIZ HERNANDEZ :1965 Visit Date:06/06/2023 Ambulatory Visit Instructions Your Diagnosis BPH (benign prostatic hyperplasia) Kidney stone Tests Performed Urnls Dip Stick Auto w/o Microscopy POC 37717 XR Abdomen 1 View -- Results Pending [...] [facility] Patient Educationon 10-03-20 23 Patient [...] Spinach (cooked), rhubarb, beets, sweet potatoes, and Bruneian chard. ? Peanuts. ? Potato chips, greenlandic fries, and baked potatoes with skin on. ? Nuts and nut products. ? Chocolate. ? If you regularly take a diuretic medicine, make sure to eat at least 1 or 2 servings of fruits or vegetables that are high in potassium each day. These include: ? Avocado. ? Banana. ? Alabaster, prune, carrot, or tomato juice. ? Baked [...] fish oil, or vitamin B6. ? Take aatf-orx-gpaggai and prescription medicines only as told by your health care provider. These include supplements. What foods should I limit? Limit your in (more content not included)... Normal [facility] Urology Office/Clinic Noteon 06-06-2023 Urology Office/Clinic [...] [address] [address]- Additional Instructions: w/KUB Patient Education Dietary Guidelines [...] with voice recognition artificial intelligence software, specifically [employer] and or [employer]. Substitutions may have occurred due to the [...] procedure, Gallbladder, (more content not included)... Normal [facility] Comment on above: Result Comment: Elec tronically Signed By: Yovany AKHTAR MD\.br\Date and Time Signed: 06/06/23 09:32 EDT\.br\Electronically Co-Signed By: Mauar Teixeira\.br\Date and Time Co-Signed: 06/06/23 09:28 EDT RAD - MISCon 05-31-2023 RAD - MISC [id number]#1. 00CD:127 Normal [facility] [id number] .00CD:127 Normal [facility] [id number]#1 .00CD:127 Normal [facility] Patient Educationon 06-17-20 Patient Education Urology [...] Rhubarb. ? Beets. ? Potato chips and greenlandic fries. ? Nuts. ? If you regularly take a diuretic medicine, make sure to eat at least 1?2 fruits or vegetables high in potassium each day. These include: ? Avocado. ? Banana. ? Alabaster, prune, carrot, or tomato juice. ? Baked [...] Anjana cruz (more content not included)... 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 Normal [facility] Comment on above: Result Comment: Elec [...] by: MANSOOR LIMA Date: 2022-06-16 18:56 Normal [facility] Patient Educationon 06-10-20 Patient Education Urology [...] Rhubarb. ? Beets. ? Potato chips and greenlandic fries. ? Nuts. ? If you regularly take a diuretic medicine, make sure to eat at least 1?2 fruits or vegetables high in potassium each day. These include: ? Avocado. ? Banana. ? Alabaster, prune, carrot, or tomato juice. ? Baked [...] Salfroylan cruz (more content not included)... Normal [facility] RAD - MISCon 06-10-2022 [facility] - MIS [id number] .00CD:127 Normal [facility] Urology Office/Clinic Noteon 06-10-2022 Urology Office/Clinic Note Chief Complaint Follow up HPI Staff Pt is here for PO ESWL. Pt went to [facility] 05/29/22 for right flank pain. CT [...] ESWL 08/13/2020 - CT done 05/29/22 at [facility] showed 2mm right distal ureteral calculus. Additional 6mm right UPJ calculus - S/P RT Lithotripsy 05/26/22 - KUB done 06/09/22 at [facility] stated there is no visible renal [...] CANTOR, Yovany P, URL Within [address] [place] [address] [place], [place] [id number]- Additional Instructions: KUB Patient Education Dietary Guidelines [...] Extracorporeal shock (more content not included)... Normal [facility] Comment on above: Result Comment: Elec [...] MANSOOR LIMA Date: 2022-06-09 17:41 Normal [facility] CBC AUTO DIFFon 05-29-2022 BASO # 0.1 103/ul Normal 0.0-0.1 [facility] Comment on above: Performed By: #### C BC ####[facility] [address] [place] [address]Dr. Wyatt Aldrich Basophils/100 WBC (Bld) 0.2 % Normal 0.2-2.0 [facility] Comment on above: Performed By: #### C BC ####[facility] [address] [place] [address]DrCullen Aldrich EO # 0.0 103/ul Normal 0.0-0.7 [facility] Comment on above: Performed By: #### C BC ####[facility] [address] [place] [address]Dr. Wyatt Aldrich Eosinophils/100 WBC (Bld) 0.2 % Critically low 0.9-7.0 [facility] Comment on above: Performed By: #### C BC ####[facility] [address] [place] [address]Dr. Wyatt Aldrich Erythrocyte distribution width (RBC) [Ratio] 12.3 % Normal 11.0-15.0 [facility] Comment on above: Performed By: #### C BC ####[facility] [address] [place] [address]Dr. Wyatt Aldrich Hematocrit (Bld) [Volume fraction] 45.9 % Normal 42.0-54.0 [facility] Comment on above: Performed By: #### C BC ####[facility] [address] [place], [place] [address]Dr. Wyatt Aldrich Hemoglobin (Bld) [Mass/Vol] 15.2 g/dL Normal 14.0-18.0 [facility] Comment on above: Performed By: #### C BC ####[facility] [address] [place] [address]Dr. Wyatt Aldrich IG # 0.09 10e3/ul Critically high 0.00-0.03 [facility] Comment on above: Performed By: #### C BC ####[facility] [address] [place] [address]Dr. Wyatt Aldrich IG % 0.4 % Normal 0.0-0.5 [facility] Comment on above: Performed By: #### C BC ####[facility] [address] [place] [address]Dr. Wyatt Aldrich LYMPH # 1.1 103/ul Critically low 1.2-3.8 [facility] Comment on above: Performed By: #### C BC ####[facility] [address] [place], [place] [address]Dr. Wyatt Aldrich Lymphocytes/100 WBC (Bld) 5.1 % Critically low 20.5-60.0 [facility] Comment on above: Performed By: #### C BC ####[facility] [address] [place] [address]Dr. Wyatt Aldrich MANUAL DIFF REQ NO Normal [facility] Comment on above: Performed By: #### C BC ####[facility] [address] [place] [address]Dr. Wyatt Aldrich MCH (RBC) [Entitic mass] 30.2 pg Normal 25.9-34.0 [facility] Comment on above: Performed By: #### C BC ####[facility] [address] [place], [place] [address]Dr. Wyatt Aldrich MCHC (RBC) [Mass/Vol] 33.1 g/dL Normal 29.9-35.2 [facility] Comment on above: Performed By: #### C BC ####[facility] [address] [place], [place] [address]Dr. Jossielalo Aldrich MCV (RBC) [Entitic vol] 91.3 fL Normal 80.0-94.0 [facility] Comment on above: Performed By: #### C BC ####[facility] [address] [place], [place] [address]Dr. Wyatt Aldrich MONO # 1.4 103/ul Critically high 0.3-0.8 [facility] Comment on above: Performed By: #### C BC ####[facility] [address] [place], [place] [address]Dr. Wyatt Aldrich Monocytes/100 WBC (Bld) 6.7 % Normal 1.7-12.0 [facility] Comment on above: Performed By: #### C BC ####[facility] [address] [place], [place] [address]Dr. Jossielalo Aldrich NEUT # 18.5 103/ul Critically high 1.4-6.5 [facility] Comment on above: Performed By: #### C BC ####[facility] [address] [place], [place] [address]Dr. Wyatt Aldrich Neutrophils/100 WBC (Bld) 87.4 % Critically high 43.0-75.0 [facility] Comment on above: Performed By: #### C BC ####[facility] [address] [place], [place] [address]Ed. Wyatt Aldrich Platelet mean volume (Bld) [Entitic vol] 9.3 fL Critically low 9.5-13.5 [facility] Comment on above: Performed By: #### C BC ####[facility] [address] [place], [place] [address]Lk. Wyatt Aldrich PLT 303 103/ul Normal 150-450 [facility] Comment on above: Performed By: #### C BC ####[facility] [address] [place], [place] [address]Lt. Wyatt Aldrich RBC 5.03 106/ul Normal 4.70-6.10 [facility] Comment on above: Performed By: #### C BC ####[facility] [address] [place], [place] [address]Jj. Wyatt Aldrich WBC 21.2 103/ul Critically high 4.0-11.0 [facility] Comment on above: Performed By: #### C BC ####[facility] [address] [place], [place] [address]. [address] CT ABD/PELVIS WO CONon 05-29 [...] BOO GUZMAN Date: 2022-05-29 17:32 Normal [facility] ER URINE PROFILEon 2 Bilirubin Ql (U) Negative Normal NEGATIVE [facility] Comment on above: Performed By: #### U MICRO, ERUR #### [facility] [address] [place] [address] [address] Wyatt Aldrich Clarity (U) CLEAR Normal CLEAR [facility] Comment on above: Performed By: #### U MICRO, ERUR #### [facility] [address] [place] [address] [address] Wyatt Aldrich Color (U) LT. YELLOW Normal YELLOW [facility] Comment on above: Performed By: #### U MICRO, ERUR #### [facility] [address] [place] [address] Dr. Wyatt Aldrich ERUAHD A micrscopic examination will be performed if indicated. Normal [facility] Comment on above: Performed By: #### U MICRO, ERUR #### [facility] [address] [place] [address] [address] Wyatt Aldrich Glucose Ql (U) Negative Normal NEGATIVE [facility] Comment on above: Performed By: #### U MICRO, ERUR #### [facility] [address] [place] [address] [address] Wyatt Aldrich Hemoglobin Ql (U) TRACE-INTACT Abnormal NEGATIVE [facility] Comment on above: Performed By: #### U MICRO, ERUR #### [facility] [address] [place] [address] [address] Wyatt Aldrich Ketones Ql (U) Negative Normal NEGATIVE [facility] Comment on above: Performed By: #### U MICRO, ERUR #### [facility] [address] [place] [address] Dr. Wyatt Aldrich LEUKOCYTES Negative Normal NEGATIVE [facility] Comment on above: Performed By: #### U MICRO, ERUR #### [facility] [address] [place] [address] [address] Wyatt Aldrich Nitrite Ql (U) Negative Normal NEGATIVE [facility] Comment on above: Performed By: #### U MICRO, ERUR #### [facility] [address] [place] [address] Dr. Wyatt Aldrich pH (U) 7.0 [pH] Normal 5-9 [facility] Comment on above: Performed By: #### U MICRO, ERUR #### [facility] [address] [place] [address] Dr. Wyatt Aldrich SPEC GRAVITY 1.020 Normal 1.005-<=1.025 [facility] Comment on above: Performed By: #### U MICRO, ERUR #### [facility] [address] [place] [address] Dr. Wyatt Aldrich UA PROTEIN Negative Normal NEGATIVE/ TRACE [facility] Comment on above: Performed By: #### U MICRO, ERUR #### [facility] [address] [place] [address] Dr. Wyatt Aldrich UR MICRO IND INDICATED Normal [facility] Comment on above: Performed By: #### U MICRO, ERUR #### [facility] [address] [place] [address] Dr. Wyatt Aldrich Urobilinogen Qn (U) 0.2 {Sharon'U}/dL Normal 0.2 - 1. 0 [facility] Comment on above: Performed By: #### U MICRO, ERUR #### [facility] [address] [place] [address] Dr. Wyatt Aldrich PROF 14(COMP METB)on 022 Albumin [Mass/Vol] 3.9 g/dL Normal 3.4-5.0 [facility] Comment on above: Performed By: #### C MP #### [facility] [address] [place] [address] Dr. Wyatt Aldrich Albumin/Globulin [Mass ratio] 1.1 {ratio} Normal [facility] Comment on above: Performed By: #### C MP #### [facility] [address] [place] [address] Dr. Wyatt Aldrich ALP [Catalytic activity/Vol] 70 U/L Normal 46-116 [facility] Comment on above: Performed By: #### C MP #### [facility] [address] [place] [address] [address] Wyatt Aldrich ALT [Catalytic activity/Vol] 38 U/L Normal 16-63 [facility] Comment on above: Performed By: #### C MP #### [facility] [address] [place] [address] [address] Wyatt Aldrich Anion gap [Moles/Vol] 12.6 mmol/L Normal Th [facility] Comment on above: Performed By: #### C MP #### [facility] [address] [place] [address] [address] Wyatt Aldrich AST [Catalytic activity/Vol] 20 U/L Normal 15-37 [facility] Comment on above: Performed By: #### C MP #### [facility] [address] [place] [address] Dr. Wyatt Aldrich Bilirubin [Mass/Vol] 0.6 mg/dL Normal 0.2-1.0 [facility] Comment on above: Performed By: #### C MP #### [facility] [address] [place] [address] [address] Wyatt Aldrich Calcium [Mass/Vol] 8.7 mg/dL Normal 8.5-10.1 [facility] Comment on above: Performed By: #### C MP #### [facility] [address] [place] [address] [address] Wyatt Aldrich Chloride [Moles/Vol] 95 mmol/L Critically low 98-107 [facility] Comment on above: Performed By: #### C MP #### [facility] [address] [place] [address] [address] Wyatt Aldrich CO2 [Moles/Vol] 29.9 mmol/L Normal 21.0-32.0 [facility] Comment on above: Performed By: #### C MP #### [facility] [address] [place] [address] [address] Wyatt Aldrich Creatinine [Mass/Vol] 1.04 mg/dL Normal 0.70-1.30 [facility] Comment on above: Performed By: #### C MP #### [facility] [address] [place] [address] [address] Wyatt Aldrich EGFR-AF MONGOLIAN >60 Normal >=60 [facility] Comment on above: Performed By: #### C MP #### [facility] [address] [place] [address] [address] Wyatt Aldrich EGFR-NON AF MONGOLIAN >60 Normal >=60 [facility] Comment on above: Performed By: #### C MP #### [facility] [address] [place] [address] [address] Wyatt Aldrich Globulin (S) [Mass/Vol] 3.4 g/dL Normal [facility] Comment on above: Performed By: #### C MP #### [facility] [address] [place] [address] Dr. Wyatt Aldrich Glucose [Mass/Vol] 148 mg/dL Critically high 74-106 [facility] Comment on above: Performed By: #### C MP #### [facility] [address] [place] [address] [address] Wyatt Aldrich Potassium [Moles/Vol] 4.5 mmol/L Normal 3.5-5.1 [facility] Comment on above: Performed By: #### C MP #### [facility] [address] [place] [address] Dr. Wyatt Aldrich Protein [Mass/Vol] 7.3 g/dL Normal 6.4-8.2 [facility] Comment on above: Performed By: #### C MP #### [facility] [address] [place] [address] [address] Wyatt Aldrich Sodium [Moles/Vol] 133 mmol/L Critically low 136-145 [facility] Comment on above: Performed By: #### C MP #### [facility] [address] [place] [address] [address] Wyatt Aldrich Urea nitrogen [Mass/Vol] 15.0 mg/dL Normal 7.0-18.0 [facility] Comment on above: Performed By: #### C MP #### [facility] [address] [place] [address] Dr. Wyatt Aldrich Urea nitrogen/Creatinine [Mass ratio] 14.4 mg/mg Normal [facility] Comment on above: Performed By: #### C MP #### [facility] [address] [place] [address] Dr. Wyatt Aldrich URINE MICROSCOPIC ONLYon BACTERIA NONE SEEN Normal NONE SEEN [facility] Comment on above: Performed By: #### U MICRO, ERUR #### [facility] [address] [place] [address] Dr. Wyatt Aldrich Bacteria identified Cx Nom (U) NOT INDICATED Normal [facility] Comment on above: Performed By: #### U MICRO, ERUR #### [facility] [address] [place] [address] Dr. Wyatt Aldrich CAST NONE SEEN Normal NONE SEEN [facility] Comment on above: Performed By: #### U MICRO, ERUR #### [facility] [address] [place] [address] Dr. Wyatt Aldrich Crystals LM Nom (Urine sed) NONE SEEN Normal NONE SEEN [facility] Comment on above: Performed By: #### U MICRO, ERUR #### [facility] [address] [place] [address] Dr. Wyatt Aldrich Epithelial cells LM Ql (Urine sed) NONE SEEN Normal NONE SEEN /RARE [facility] Comment on above: Performed By: #### U MICRO, ERUR #### [facility] [address] [place] [address] Dr. Wyatt Aldrich MUCOUS NONE SEEN Normal NONE SEEN [facility] Comment on above: Performed By: #### U MICRO, ERUR #### [facility] [address] [place] [address] Dr. Wyatt Aldrich RBC 2-5 Abnormal 0-2 [facility] Comment on above: Performed By: #### U MICRO, ERUR #### [facility] [address] [place] [address] Dr. Wyatt Aldrich WBC NONE SEEN Normal NONE SEEN [facility] Comment on above: Performed By: #### U MICRO, ERUR #### [facility] [address] [place], [place] [address] Dr. Wyatt Aldrich T4 LABCORPon 01-29-2022 T4 [Mass/Vol] 9.1 ug/dL Normal 4.5-12.0 [facility] Comment on above: Performed By: #### T 4LC ####[facility] [address] [place] [address]Dr. Wyatt Aldrich CBC AUTO DIFFon 01-28-2022 BASO # 0.1 103/ul Normal 0.0-0.1 [facility] Comment on above: Performed By: #### C BC ####[facility] [address] [place] [address]Dr. Wyatt Aldrich Basophils/100 WBC (Bld) 0.6 % Normal 0.2-2.0 [facility] Comment on above: Performed By: #### C BC ####[facility] [address] [place], [place] [address]Dr. Wyatt Aldrich EO # 0.2 103/ul Normal 0.0-0.7 [facility] Comment on above: Performed By: #### C BC ####[facility] [address] [place], [place] [address]Dr. Wyatt Aldrich Eosinophils/100 WBC (Bld) 2.4 % Normal 0.9-7.0 [facility] Comment on above: Performed By: #### C BC ####[facility] [address] [place], [place] [address]Dr. Wyatt Aldrich Erythrocyte distribution width (RBC) [Ratio] 12.5 % Normal 11.0-15.0 [facility] Comment on above: Performed By: #### C BC ####[facility] [address] [place], [place] [address]DrCullen Aldrich Hematocrit (Bld) [Volume fraction] 43.5 % Normal 42.0-54.0 [facility] Comment on above: Performed By: #### C BC ####[facility] [address] [place], [place] [address]DrCullen Aldrich Hemoglobin (Bld) [Mass/Vol] 14.4 g/dL Normal 14.0-18.0 [facility] Comment on above: Performed By: #### C BC ####[facility] [address] [place] [address]DrCullen Aldrich IG # 0.03 10e3/ul Normal 0.00-0.03 [facility] Comment on above: Performed By: #### C BC ####[facility] [address] [place] [address]DrCullen Aldrich IG % 0.4 % Normal 0.0-0.5 [facility] Comment on above: Performed By: #### C BC ####[facility] [address] [place], [place] [address]DrCullen Aldrich LYMPH # 2.1 103/ul Normal 1.2-3.8 [facility] Comment on above: Performed By: #### C BC ####[facility] [address] [place] [address]DrCullen Aldrich Lymphocytes/100 WBC (Bld) 24.8 % Normal 20.5-60.0 [facility] Comment on above: Performed By: #### C BC ####[facility] [address] [place] [address]DrCullen Aldrich MANUAL DIFF REQ NO Normal [facility] Comment on above: Performed By: #### C BC ####[facility] [address] [place] [address]DrCullen Aldrich MCH (RBC) [Entitic mass] 30.6 pg Normal 25.9-34.0 [facility] Comment on above: Performed By: #### C BC ####[facility] [address] [place] [address]DrCullen Aldrich MCHC (RBC) [Mass/Vol] 33.1 g/dL Normal 29.9-35.2 [facility] [facility] Comment on above: Performed By: #### C BC ####[facility] [address] [id number] Aldrich MCV (RBC) [Entitic vol] 92.6 fL Normal 80.0-94.0 [facility] Comment on above: Performed By: #### C BC ####[facility] [address] [address]Dr. Wyatt Aldrich MONO # 0.6 103/ul Normal 0.3-0.8 [facility] Comment on above: Performed By: #### C BC ####[facility] [address] [address]Dr. Wyatt Aldrich Monocytes/100 WBC (Bld) 7.7 % Normal 1.7-12.0 [facility] Comment on above: Performed By: #### C BC ####[facility] [address] [place] [address] [address]Dr. Wyatt Aldrich NEUT # 5.3 103/ul Normal 1.4-6.5 [facility] Comment on above: Performed By: #### C BC ####[facility] [address] [place], [place] [address]Dr. Wyatt Aldrich Neutrophils/100 WBC (Bld) 64.1 % Normal 43.0-75.0 [facility] Comment on above: Performed By: #### C BC ####[facility] [address] [place], [place] [address]Dr. Wyatt Aldrich Platelet mean volume (Bld) [Entitic vol] 9.4 fL Critically low 9.5-13.5 [facility] Comment on above: Performed By: #### C BC ####[facility] [address] [place], [place] [address]Dr. Wyatt Aldrich PLT 280 103/ul Normal 150-450 [facility] Comment on above: Performed By: #### C BC ####[facility] [address] [place], [place] [address]Dr. Wyatt Aldrich RBC 4.70 106/ul Normal 4.70-6.10 [facility] Comment on above: Performed By: #### C BC ####[facility] [address] [address]Dr. Jossielalo Valdemar WBC 8.3 103/ul Normal 4.0-11.0 [facility] Comment on above: Performed By: #### C BC ####[facility] [address] [place] [id number]. Wyatt Aldrich FREE T3on 01-28-2022 FREE T3 2.70 pg/mlL Normal 2.18-3.98 [facility] Comment on above: Performed By: #### L IPID, CMP, TSH, FT3 ####[facility] [address] [id number] Aldrich GLYCOHEMOGLOBIN A1Con 2021 ADA RECOMMENDATION SEE BELOW Normal [facility] Comment on above: Result Comment: ADA RECOMMENDED LIMIT 4.0 - 6.0 ADA THERAPEUTIC TARGET < 7.0 ACTION SUGGESTED > 7.0 Performed By: #### A 1C #### [facility] [address] [address] [address] Wyatt Aldrich Glucose [Mass/Vol] 143 mg/dL Normal [facility] Comment on above: Performed By: #### A 1C #### [facility] [address] [address] [address] Wyatt Aldrich HbA1c (Bld) [Mass fraction] 6.6 % Critically high 4.5-6.2 [facility] Comment on above: Performed By: #### A 1C #### [facility] [address] [address] [address] Wyatt Aldrich LIPID PROFILEon 01-28-2022 CHOL-HDL RATIO NORM SEE BELOW Normal [facility] Comment on above: Result Comment: 3.3 - 4.4 LOW RISK 4.4 - 7.1 AVERAGE RISK 7.1 - 11.0 MODERATE RISK >11.0 HIGH RISK Performed By: #### L IPID, CMP, TSH, FT3 ####[facility] [address] [address]Dr. Wyatt Aldrich Cholesterol [Mass/Vol] 176 mg/dL Normal <=200 [facility] Comment on above: Performed By: #### L IPID, CMP, TSH, FT3 ####[facility] [address] [address]Dr. Wyatt Aldrich Cholesterol in HDL [Mass/Vol] 35 mg/dL Critically low 40-60 [facility] Comment on above: Performed By: #### L IPID, CMP, TSH, FT3 ####[facility] [address] [address]Dr. Wyatt Aldrich Cholesterol in LDL [Mass/Vol] 94.4 mg/dL Normal [facility] Comment on above: Performed By: #### L IPID, CMP, TSH, FT3 ####[facility] [address] [address]Dr. Wyatt Aldrich Cholesterol.total/Cho lesterol in HDL [Mass ratio] 5.0 {ratio} Normal [facility] Comment on above: Performed By: #### L IPID, CMP, TSH, FT3 ####[facility] [address] [address]Dr. Wyatt Aldrich HDL NORMAL > or = 60 mg/dl - LO W CARDIOVASCULAR RISK <40 mg/dl - HIGH CARDIOVASCULAR RISK Normal [facility] Comment on above: Performed By: #### L IPID, CMP, TSH, FT3 ####[facility] [address] [address]Dr. Wyatt Aldrich LDL CALC NORMAL SEE BELOW Normal [facility] Comment on above: Result Comment: <100 mg/dl OPTIMAL 100 - 129 mg/dl NEAR OR ABOVE OPTIMAL 130 - 159 mg/dl BORDERLINE HIGH 160 - 189 mg/dl HIGH >190 mg/dl VERY HIGH Performed By: #### L IPID, CMP, TSH, FT3 ####[facility] [address] [address]Dr. Wyatt Aldrich Triglyceride [Mass/Vol] 233 mg/dL Critically high <=150 [facility] Comment on above: Performed By: #### L IPID, CMP, TSH, FT3 ####[facility] [address] [address]Dr. Wyatt Aldrich VLDL CALC 46.6 mg/dL Normal [facility] Comment on above: Performed By: #### L IPID, CMP, TSH, FT3 ####[facility] [address] [address]Dr. Wyatt Aldrich OCC BLD IMMUNO SCREENon 01-03 OCCULT BLOOD Negative Normal NEGATIVE [facility] Comment on above: Performed By: #### O BSCRN #### [facility] [address] [address] [address] Wyatt Aldrich PROF 14(COMP METB)on 022 Albumin [Mass/Vol] 3.4 g/dL Normal 3.4-5.0 [facility] Comment on above: Performed By: #### L IPID, CMP, TSH, FT3 ####[facility] [address] [address]Dr. Wyatt Aldrich Albumin/Globulin [Mass ratio] 1.0 {ratio} Normal [facility] Comment on above: Performed By: #### L IPID, CMP, TSH, FT3 ####[facility] [address] [address]Dr. Wyatt Aldrich ALP [Catalytic activity/Vol] 65 U/L Normal 46-116 [facility] Comment on above: Performed By: #### L IPID, CMP, TSH, FT3 ####[facility] [address] [address]Dr. Wyatt Aldrich ALT [Catalytic activity/Vol] 45 U/L Normal 16-63 [facility] Comment on above: Performed By: #### L IPID, CMP, TSH, FT3 ####[facility] [address] [address]Dr. Wyatt Aldrich Anion gap [Moles/Vol] 9.7 mmol/L Normal [facility] Comment on above: Performed By: #### L IPID, CMP, TSH, FT3 ####[facility] [address] [address]Dr. Wyatt Aldrich AST [Catalytic activity/Vol] 20 U/L Normal 15-37 [facility] Comment on above: Performed By: #### L IPID, CMP, TSH, FT3 ####[facility] [address] [address]Dr. Wyatt Aldrich Bilirubin [Mass/Vol] 0.4 mg/dL Normal 0.2-1.0 [facility] Comment on above: Performed By: #### L IPID, CMP, TSH, FT3 ####[facility] [address] [address]Dr. Wyatt Aldrich Calcium [Mass/Vol] 8.5 mg/dL Normal 8.5-10.1 [facility] Comment on above: Performed By: #### L IPID, CMP, TSH, FT3 ####[facility] [address] [address]Dr. Wyatt Aldrich Chloride [Moles/Vol] 101 mmol/L Normal 98-107 [facility] Comment on above: Performed By: #### L IPID, CMP, TSH, FT3 ####[facility] [address] [place] [address]Dr. Wyatt Aldrich CO2 [Moles/Vol] 33.3 mmol/L Critically high 21.0-32.0 [facility] Comment on above: Performed By: #### L IPID, CMP, TSH, FT3 ####[facility] [address] [place] [address]Dr. Wyatt Aldrich Creatinine [Mass/Vol] 0.77 mg/dL Normal 0.70-1.30 [facility] Comment on above: Performed By: #### L IPID, CMP, TSH, FT3 ####[facility] [address] [address]Dr. Wyatt Aldrich EGFR-AF MONGOLIAN >60 Normal >=60 [facility] Comment on above: Performed By: #### L IPID, CMP, TSH, FT3 ####[facility] [address] [address]Dr. Wyatt Aldrich EGFR-NON AF MONGOLIAN >60 Normal >=60 [facility] Comment on above: Performed By: #### L IPID, CMP, TSH, FT3 ####[facility] [address] [place] [address]Dr. Wyatt Aldrich Globulin (S) [Mass/Vol] 3.3 g/dL Normal [facility] Comment on above: Performed By: #### L IPID, CMP, TSH, FT3 ####[facility] [address] [address]Dr. Wyatt Aldrich Glucose [Mass/Vol] 137 mg/dL Critically high 74-106 [facility] Comment on above: Performed By: #### L IPID, CMP, TSH, FT3 ####[facility] [address] [place] [address]Dr. Wyatt Aldrich Potassium [Moles/Vol] 4.0 mmol/L Normal 3.5-5.1 [facility] Comment on above: Performed By: #### L IPID, CMP, TSH, FT3 ####[facility] [address] [place] [address]Dr. Wyatt Aldrich Protein [Mass/Vol] 6.7 g/dL Normal 6.4-8.2 [facility] Comment on above: Performed By: #### L IPID, CMP, TSH, FT3 ####[facility] Rew[address] [place], [place] [address]Dr. Wyatt Aldrich Sodium [Moles/Vol] 140 mmol/L Normal 136-145 [facility] Comment on above: Performed By: #### L IPID, CMP, TSH, FT3 ####[facility] [address] [address]Dr. Wyatt Aldrich Urea nitrogen [Mass/Vol] 13.0 mg/dL Normal 7.0-18.0 [facility] Comment on above: Performed By: #### L IPID, CMP, TSH, FT3 ####[facility] [address] [place] [address]Dr. Wyatt Aldrich Urea nitrogen/Creatinine [Mass ratio] 16.9 mg/mg Normal [facility] Comment on above: Performed By: #### L IPID, CMP, TSH, FT3 ####[facility] [address] [place] [address]Dr. Wyatt Aldrich TSHon 01-28-2022 TSH 5.562 uIU/mL Critically high 0.358-3.740 [facility] Comment on above: Performed By: #### L IPID, CMP, TSH, FT3 ####[facility] [address] [place], [place] [address]Qi. Wyatt Aldrich TSH RANGE SEE BELOW Normal [facility] Comment on above: Result Comment: <0.3 4 UIU/ml HYPERTHYROID 0.34-5.60 UIU/ml EUTHYROID >5.60 UIU/ml HYPOTHYROID Performed By: #### L IPID, CMP, TSH, FT3 ####[facility] [address] [place], [place] [address]Wh. Wyatt Aldrich XR KUB 1 VIEWon 01-20-2022 [...] MANSOOR LIMA Date: 2022-01-20 14:12 Normal [facility] MRI LSPINE WO W CONon 2021 MRI [place] CON EXAMINATION: [place] WO W CON HISTORY: Prolapsed lumbar intervertebral [...] by: TANISHA CHIU Date: 2021-10-04 11:23 Normal [facility] XR LSPINE MIN 4 VIEWSon 09-05 [...] by: SOLO SAVAGE Date: 2021-09-27 11:31 Normal [facility] Vital Signs Date Time Vital Sign Value Performing Clinician Jessi chowdhury 06-06-2023 08:48-0400 Blood Pressure Location Yovany GIOVANA [facility] 06-06-2023 08:48-0400 Diastolic blood pressure 66 mm[Hg] Yovany GIOVANA [facility] 06-06-2023 08:48-0400 Heart rate 83 /min Yovany COOK [facility] 06-06-2023 08:48-0400 Systolic blood pressure 142 mm[Hg] Yovany COOK [facility] 06-17-2022 09:14-0400 Blood Pressure Location Yovany COOK [facility] 06-17-2022 09:14-0400 Diastolic blood pressure 96 mm[Hg] Yovany COOK [facility] 06-17-2022 09:14-0400 Heart rate 67 /min Yovany COOK [facility] 06-17-2022 09:14-0400 Systolic blood pressure 159 mm[Hg] Yovany COOK [facility] 06-10-2022 09:54-0400 Blood Pressure Location Yovany COOK [facility] 06-10-2022 09:54-0400 Diastolic blood pressure 102 mm[Hg] Yovany COOK [facility] 06-10-2022 09:54-0400 Heart rate 68 /min Yovany COOK [facility] 06-10-2022 09:54-0400 Systolic blood pressure 166 mm[Hg] Yovany COOK [facility] 01-21-2022 08:44-0400 Blood Pressure Location Yovany COOK [facility] 01-21-2022 08:44-0400 Diastolic blood pressure 87 mm[Hg] Yovany AKHTAR [facility] 01-21-2022 08:44-0400 Heart rate 72 /min Yovany AKHTAR [facility] 01-21-2022 08:44-0400 Systolic blood pressure 140 mm[Hg] Yovany AKHTAR [facility] Encounters Encounter Date Encounter Type Care Provider Facility Start: 06-11-2024 ambulatory Yovany AKHTAR Facility : [facility] Start: 02-19-2024 End: 02-19-2024 ambulatory Heather Turcios [...] procedure Yovany Aquiles AKHTAR [facility] Start: 06-17-2022 End: 06-18-2022 ambulatory Yovanykourtney AKHTAR Facility:[facility] Start: 06-17-2022 End: 06-17-2022 Patient encounter procedure Yovany AKHTAR [facility] Start: 06-16-2022 End: 06-17-[address] NANCY FERNANDEZ Facility:[facility] Start: 06-10-2022 End: 06-11-2022 ambulatory Yovany AKHTAR Facility:[facility] Start: 06-10-2022 End: 06-10-2022 Patient encounter procedure Yovany AKHTAR [facility] Start: 06-09-2022 End: 06-10-[address] NANCY FERNANDEZ Facility:[facility] Start: 05-29-2022 End: 05-29-[address] NANCY FERNANDEZ Facility:[facility] Start: 05-11-2022 End: 05-11-2022 Patient encounter procedure Yovany AKHTAR [facility] Start: 02-03-2022 Encounter for genera l adult medical examination without abnormal findings DR NANCY FERNANDEZ [facility] Start: 01-28-2022 End: 01-29-[address] NANCY FERNANDEZ Facility:[facility] Start: 01-28-2022 End: 01-29-2022 Encounter for general adult medical examination without abnormal findings DR NANCY FERNANDEZ Facility:[facility] Start: 01-21-2022 End: 01-21-2022 Patient encounter procedure Yovany AKHTAR [facility] Start: 01-20-2022 End: 01-21-2022 [...] on above: Performed By: #### P SAD ####[address] [place] [address] [place] [address]DrCullen Aldirch Start: 08-13-2020 Extracorporeal shock wave lithotripsy of calculus of kidney Yovany AKHTAR Dental surgical procedure Gr poncho AKHTAR Entire gallbladder ( body structure) Yovany AKHTAR History of tonsillectomy Mitul AKHTAR Kidney stone (disorder) Gee AKHTAR l4 l5 disectomy Yovany AKHTAR carlo anal abcess Yovany Dowling Repair of anal fistula Marvel AKHTAR Immunizations Immunization Date Immunization Notes Care Provider [facility] 04-19-2022 zoster vaccine recombinant Yovany AKHTAR [facility] 02-12-2022 pneumococcal 20-maría nt conjugate vaccine Yovany AKHTAR [facility] 02-03-2022 zoster vaccine recombinant Yovany AKHTAR [facility] 12-08-2020 SARS-CoV-2 (COVID-19 ) mRNA-1273 vaccine Yovany AKHTAR [facility] 11-17-2020 SARS-CoV-2 (COVID-19 ) mRNA BNT-162b2 vax Yovany AKHTAR [facility] 11-11-2020 SARS-CoV-2 (COVID-19 ) mRNA-1273 vaccine Yovany AKHTAR [facility] Payers Date Payer Category Payer Unknown 2023 Unknown [id number] 1965 Unknown [id number] 2.16.84 [id number] 1965 Unknown [id number] 2.16.84 [id number] 1964 Unknown [id number] 2.16.84 0.1.952334.3.579.2.593 1964 Unknown [id number] 2.16.84 0.1.495663.3.579.2.593 1964 Unknown [id number] 2.16.84 0.1.659382.3.579.2.593 1964 Unknown [id number] 2.16.84 0.1.543386.3.579.2.593 1964 Unknown [id number] 2.16.84 0.1.862191.3.579.2.593 1964 Unknown [id number] 2.16.84 0.1.809337.3.579.2.593 1964 Unknown [id number] 2.16.8 40.1.964100.3.579.2.727 1964 Unknown [id number] 2.16.8 40.1.220755.3.579.2.727 1964 Unknown [id number] 2.16.8 40.1.443006.3.579.2.727 1964 Unknown [id number] 2.16.8 40.1.495662.3.579.2.727 1964 Unknown [id number] 2.16.84 0.1.968115.3.579.2.1259 1964 Unknown [id number] 2.16.84 0.1.850096.3.579.2.1259 1964 Unknown [id number] 2.16.84 0.1.087394.3.579.2.1259 1964 Unknown [id number] 2.16. 840.1.059750.3.579.2.196 1964 Unknown [id number] 2.16. [id number] 1960 Private Health Insurance [id number] Social History Date Type Detail Facility Start: 01-15-2021 End: 06-06-2023 Tobacco smoking status Ex-smoker (finding) [facility] Tobacco smoking status Never [facility] Sex Assigned At Male [facility] Functional Status Date Assessment Result Facility 06-06-2023 Functional Status N/A [facility] 06-17-2022 Functional Status N/A [facility] 06-10-2022 Functional Status N/A [facility] Clinical Notes 01-21-2022 to 06-06-2023 Laboratory [...] include: ?8 oz (237 mL) of milk, vputenw-uifadgobfffi-ntxte milk, and calcium-fortifiedfruit juice. Calcium-fortified means that [...] ?Spinach (cooked), rhubarb, beets, sweet potatoes, and Bruneian chard. ?Peanuts. ?Potato chips, greenlandic fries, and baked potatoes with skin on. ?Nuts and nut products. ?Chocolate. If you regularly take a diuretic medicine, make sure to eat at least 1 or 2 servings of fruits or vegetables that are high in potassium each day. These include: ?Avocado. ?Banana. ?Alabaster, prune, carrot, or tomato juice. ?Baked potato. [...] magnesium, fish oil, or vitamin B6. Take xeay-ldy-uhxynuq and prescription medicines only as told by [...] Casseroles. Pizza. Lasagna. Frozen meals. Potato chips. [place] Islander fries. The items listed above may not [...] provider. Document Revised: 05/02/2022 Document Reviewed: 05/02/2022 [place] Patient Education 2022 PAYMEY. Follow Up Care 01/21/2022 09:03:45 With:GIOVANA CANTOR, Yovany Kwan, URL Address: [address] [address]- When:Within 1 Year(s) Comments:w/MT [facility] 06-17-2022 Hospital Discharge instructions Patient Education 06/17/2022 [...] include: ?Spinach. ?Rhubarb. ?Beets. ?Potato chips and greenlandic fries. ?Nuts. If you regularly take a diuretic medicine, make sure to eat at least 1 2 fruits or vegetables high in potassium each day. These include: ?Avocado. ?Banana. ?Alabaster, prune, carrot, or tomato juice. ?Baked potato. [...] Casseroles. Pizza. Lasagna. Frozen meals. Potato chips. [place] Islander fries. Summary You can reduce your risk [...] 12/16/2011 Document Revised: 12/11/2019 Document Reviewed: 08/01/2017 [place] Patient Education 2020 PAYMEY. Follow Up Care 06/10/2022 10:24:22 With:GIOVANA CANTOR, Yovany P, URL Address: [address] [place] [address]- When:6 months Comments:w/ [place] [facility] 06-10-2022 Hospital Discharge instructions [...] include: ?Spinach. ?Rhubarb. ?Beets. ?Potato chips and greenlandic fries. ?Nuts. If you regularly take a diuretic medicine, make sure to eat at least 1 2 fruits or vegetables high in potassium each day. These include: ?Avocado. ?Banana. ?Alabaster, prune, carrot, or tomato juice. ?Baked potato. [...] Casseroles. Pizza. Lasagna. Frozen meals. Potato chips. [place] Islander fries. Summary You can reduce your risk [...] 12/16/2011 Document Revised: 12/11/2019 Document Reviewed: 08/01/2017 [place] Patient Education 2020 PAYMEY. Follow Up Care 05/30/2022 09:25:01 With:GIOVANA CANTOR, Yovany Kwan, URL Address: [facility] [place] [id number]- When:2 weeks Comments:MT [facility] 01-21-2022 Hospital Discharge instructions [...] urethra. Follow these instructions at home: Take rogb-bep-sqkubxp and prescription medicines only as told by [...] 08/21/2006 Document Revised: 07/16/2019 Document Reviewed: 09/25/2017 [place] Patient Education 2020 PAYMEY. Follow Up Care 01/15/2021 08:45:48 With:Yovany AKHTAR MD, URL Address: [address] [place], [place] [id number]- When:01/21/2023 Comments:with PSA and x-ray [facility] Evaluation + Plan note Future Appointments Appointment Date:02/24/2023 08:00:00 AM Scheduled Provider:Yovany AKHTAR MD Location:[facility] Appointment Type:URO Office Visit [facility] Evaluation + Plan note Future Appointments Appointment Date:02/24/2023 08:00:00 AM Scheduled Provider:Yovany AKHTAR MD [facility] Appointment Type:URO Office Visit Future Scheduled TestsPT & PTT 04/20/22BUN 04/20/22Creatinine 04/20/22Electrolyte Panel 04/20/22CBC w/ Auto Diff 04/20/22 [facility] Evaluation + Plan note Future Appointments Appointment Date:06/17/2022 09:15:00 AM Scheduled Provider:Yovany AKHTAR MD Location:[facility] Appointment Type:URO Office Visit Appointment Date:02/24/2023 08:00:00 AM Scheduled Provider:Yovany AKHTAR MD [facility] Appointment Type:URO Office Visit [facility] Evaluation + Plan note Future Appointments Appointment Date:06/11/2024 08:00:00 AM Scheduled Provider:Yovany AKHTAR MD Location:[facility] Appointment Type:URO Office Visit [facility] course Narrative No data available for this section [facility] Hospital Discharge instructions No data available for this section [facility] Progress note No data available for this section [facility] Summary Purpose Family History No Family [...] content) Personnel Name: Nancy Fernandez MD Address: [address] [place] [address] Personnel Name: Nancy Fernandez MD Address: Address: [address] [place] [address] Personnel Name: Nancy Fernandez MD Address: Address: [address] [place] [address] Personnel Name: Nancy Fernandez MD Address: Address: [address] [place] [address] (unrecognized sect ion and content) No Status Records FoundNo Status Records FoundNo Status Records FoundNo Status Records Found INFORMATION SOURCE (unrecogn ized section and content) DATE CREATED AUTHOR 07/07/2022 [facility] DATE CREATED AUTHOR AUTHOR'S ORGANIZ ATION 06/08/2023 [facility] DATE CREATED AUTHOR AUTHOR'S ORGANIZ ATION 12/26/2023 [facility] DATE CREATED AUTHOR AUTHOR'S ORGANIZ ATION 02/25/2024 [facility] FOR RECORDS PERTAINING TO PATIENTS WHO [...] BE BASED ON THE PRIMARY CLINICAL RECORDS. [employer] [facility]. provides no warranty or guarantee of the accuracy or completeness of information in this document.
--- NOTE | 2024-05-29 08:19 | P.CN_ITS ---
Consult Note: HPI Data of Consult Patient: known to practice within the last 3 years Consult date: 01/10/24 Requesting Physician: Shilpi Britton NP Primary Care Provider: Asim Fernandez MD Consult Narrative Reason for consult: chronic low back pain, left radiculopathy Narrative: Elvis Hernandez a pleasant 58 year old male presents for assessment of chronic low back pain with left sided radiculopathy. Chronic low back pain greater than 10 years, hx of lumbar discectomy in 2009. Patient recently completed greater than 6 weeks of PT/HEP without improvement, updated lumbar xray and MRI below consistent with degenerative changes as well as multilevel central and foraminal stenosis. Previously reported chronic low back pain and weakness of left leg, pain increasing to 8/10 with standing walking activity. Pain improved with forward flexion and rest. Patient denies loss of bowel/bladder, no falls. Failed to benefit from motrin, tramadol, tylenol. Previously underwent left L3/4 L4% TFESI x2 with >50% improvement in pain and functional ability >3 months. Patient is feeling the pain worsen and would like to discuss injection options. cc:: CC: Shilpi Britton NP Review of Systems ROS Status of ROS 10 or more systems reviewed and unremark able except as noted in history and below Musculoskeletal Reports: back pain, extremity pain and joint pain PFSH PFSH Medical History Surgical procedures, elective ?Z41.9 - Encounter for procedure for purposes other than remedying health state, unspecified (ICD-10) Neuropathy ?G62.9 - Polyneuropathy, unspecified (ICD-10) Normal colonoscopy Renal lithiasis ?N20.0 - Calculus of kidney (ICD-10) HTN (hypertension) ?I10 - Essential (primary) hypertension (ICD-10) Hypothyroidism ?E03.9 - Hypothyroidism, unspecified (ICD-10) Diabetes ?E11.9 - Type 2 diabetes mellitus without complications (ICD-10) Traumatic brain injury ?S06.9XAA - Unspecified intracranial injury with loss of consciousness status unknown, initial encounter (ICD-10) MARGE (obstructive sleep apnea) ?G47.33 - Obstructive sleep apnea (adult) (pediatric) (ICD-10) COPD (chronic obstructive pulmonary disease) ?J44.9 - Chronic obstructive pulmonary disease, unspecified (ICD-10) 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 - Acute embolism and thrombosis of superior vena cava (ICD-10) Herniated lumbar intervertebral disc ?M51.26 - Other intervertebral disc displacement, lumbar region (ICD-10) Surgical History Pain management ?R52 - Pain, unspecified (ICD-10) History of cholecystectomy ?Z90.49 - Acquired absence of other specified parts of digestive tract (ICD- 10) History of tonsillectomy ?Z90.89 - Acquired absence of other organs (ICD-10) Hx of lithotripsy ?Z98.890 - Other specified postprocedural states (ICD-10) Hx of lumbar discectomy ?Z98.890 - Other specified postprocedural states (ICD-10) Meds Home Medications and Allergies Home Medications ?Medication ?Instructions ?Recorded ?Confirmed ?Type aspirin 81 mg capsule 81 mg PO DAILY 12/15/23 02/19/24 History carvedilol 25 mg tablet (Coreg) 37.5 mg PO Q12H 12/15/23 02/19/24 History glimepiride 2 mg tablet 2 mg PO DAILY 12/15/23 02/19/24 History hydralazine 50 mg tablet 50 mg PO TID 12/15/23 02/19/24 History hydrochlorothiazide 50 mg tablet 50 mg PO DAILY 12/15/23 02/19/24 History levothyroxine 125 mcg capsule 125 mcg PO DAILY 12/15/23 02/19/24 History metformin 500 mg tablet 500 mg PO BID 12/15/23 02/19/24 History multivitamin 1 tab PO DAILY 12/15/23 02/19/24 History olmesartan 40 mg tablet 40 mg PO DAILY 12/15/23 02/19/24 History pravastatin 20 mg tablet 20 mg PO DAILY 12/15/23 02/19/24 History tramadol 50 mg tablet 50 mg PO QID PRN pain 12/15/23 02/19/24 History Allergies Allergy/AdvReac Type Severity Reaction Status Date / Time No Known Drug Allergies Allergy Verified 02/19/24 07:21 Exam Constitutional Documenting provider has reviewed patient's vital signs: yes Common normals: no apparent distress, oriented x3, healthy appearing, alert and well nourished General appearance: cooperative HENMT Common normals: normocephalic, hearing grossly normal bilaterally and moist oral mucous membranes Head and scalp: normocephalic Eye Common normals: PERRL Pupil: PERRL Neck & C-Spine Common normals: full ROM General: normal visual inspection Chest Common normals: inspection of chest normal Respiratory Common normals: normal respiratory effort, no retractions and no use of accessory muscles Back & Pelvis Lumbar spine/lower back: ROM limited, pain with ROM and straight leg raise positive left Sacroiliac joints: SI joint(s) abnormal Other: altered sensation left L3,4,5 pattern, strength 4/5 in LLE 5/5 in RLE negative internal and external rotation of left hip, no tenderness of GTB left SIJ positive dave(patricks), gaenslens, thigh thrust, compression test Extremity Common normals: normal to inspection and full ROM Neuro Common normals: oriented x3, CN's II-XII intact bilaterally, moves all extre mities, no focal motor deficits, no sensory deficits noted, deep tendon reflexes 2+ bilaterally and gait normal Sensorium/orientation: alert Motor exam: strength 5/5 throughout and no movement abnormalities noted Psych Common normals: mental status grossly normal, thought process normal, cooperative, affect normal, speech normal and activity/motor behavior normal Speech: normal speech Thought process: normal thought process Results Imaging Lumbar MRI: Attestation: I have reviewed the pertinent imaging results. Radiologist's impression: There is lumbarization of S1. For dictation purposes, the lowest complete disc space in the lumbar spine considered as S1-S2. Right renal lesion with T2 prolongation not fully characterized by this study and statistically may suggest simple renal cyst. There is normal physiologic lumbar lordosis. The vertebral height is preserved. The conus medullaris is at the level of L1. No signal abnormality within the visualized spinal cord is noted. At the level of L1-L2, there are disc bulge with no neuroforaminal narrowing and no canal stenosis. At the level of L2-L3, there are disc bulge with mild bilateral neuroforaminal narrowing and moderate canal stenosis. At the level of L3-4, there are disc bulge with severe bilateral neuroforaminal narrowing and moderate canal stenosis. At the level of L4-5, there are disc bulge with moderate right and severe left neuroforaminal narrowing and mild canal stenosis. At the level of L5-S1, there are disc bulge with severe bilateral neuroforaminal narrowing and mild canal stenosis. The left S1 nerve root is in close contact with the disc bulge in the lateral recesses. 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 The paraspinal muscles are unremarkable. No abnormal enhancing lesion is noted. Lumbar Xray: Attestation: I have reviewed the pertinent imaging results. Radiologist's impression: Mild anterior wedging deformity of T11 and T12 vertebral bodies. Multilevel endplate degenerative changes, disc disease, anterior spurring and facet arthropathy of the thoracolumbar spine, most prominent from L3 to S1. Additional Findings Additional findings: If on a controlled substance or opioids, I have checked an [place]AR[place] report on this patient and there are no aberrancies noted in the prescribing history.??If on a controlled substance or opioid a drug screen was completed and reviewed within the last year, and if there has not been a drug screen completed we ordered one today to monitor higher risk, state monitored pain medication use. As part of providing excellent, safe, comprehensive care, the following was completed at our patient's visit: 1. A medication reconciliation and review to ensure accurate knowledge of current/active medications, including asking our patients to inform us about any [id number] medications or herbal remedies/nutritional supplements/al ternative remedies. 2. A review to specifically ensure our patients have had annual screening for screening for depression, screening for tobacco use, and screening for unhealthy alcohol use. For concerning screenings had a discussion with the patient, provided patient education, and recommended follow-up with primary care provider when appropriate. If patient noted with a risk of falling, they received education on strength, gait, and balance training to prevent future risk of falling. Assessment and Plan Assessment and Plan (1) Lumbar stenosis with neurogenic claudication: (2) Lumbar facet arthropathy: (3) Lumbar radiculopathy: Plan repeat left L3-4 L4-5 TFESI under fluoroscopy, risks vs benefits reviewed. previous injection provided >50% improvement in pain and functional ability for 3 months continue HEP as tolerated continue current medications f/u 2 weeks after TFESI
== END 2024-05-29 08:13 | disposition home or self-care (01) ==
LOC: PM 08:12
PROVIDERS: PCP Family Medicine; Visit Provider Nurse Practitioner
DX: M48.062 Spinal stenosis, lumbar region with neurogenic claudication (principal); M47.816 Spondylosis without myelopathy or radiculopathy, lumbar region; M54.16 Radiculopathy, lumbar region
CPT/HCPCS: G0463

== ENCOUNTER 2024-06-07 08:27 | Outpatient (OUT) | payer BC, SELFPAY ==
--- OUTSIDE RECORDS SUMMARY | 2024-06-07 08:32 | XMS_ITS | CCD ---
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 Role Phone Nancy Fernandez Primary Care [...] Unavailable PETAR GARCIA Admitting Unavailable VELVET, DR CURZ Primary Care Unavailable RADHA TINSLEY Consulting Unavailable [...] Allergy Hyperactive behavior (finding) [facility] Andrew Medications Current Medications Medication Drug [...] 30 cap(s), Refills(s) 2, [facility]: [id number], 188, cm, 06/10/22 9:57:00 EDT, Height/Length Dosing, [...] Other fpc (current) drug therapy; Translations: [OTH ALF CURRENT DRUG THERAPY] Onset: 05-31-20 Episodic Other aftercare (1 source) custodial (current) use of aspirin; 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] Onset: 05-31-20 Episodic [...] not elsewhere classified, initial encounter; Translations: [[facility] OT SHRP OB NOT ELSW CLASS INI] [...] Interpretation Reference Range Facility Screenson 06-07-2023 Screens [id number]# 1.00CD:127 [facility] Ambulatory Visit Summaryon 1 Ambulatory Visit Summary LIZ HERNANDEZ :1965 Visit Date:06/06/2023 Ambulatory Visit Instructions Your Diagnosis BPH (benign prostatic hyperplasia) Kidney stone Tests Performed Urnls Dip Stick Auto w/o Microscopy POC 52273 XR Abdomen 1 View -- Results Pending [...] Spinach (cooked), rhubarb, beets, sweet potatoes, and Paraguayan chard. ? Peanuts. ? Potato chips, cymro fries, and baked potatoes with skin on. ? Nuts and nut products. ? Chocolate. ? If you regularly take a diuretic medicine, make sure to eat at least 1 or 2 servings of fruits or vegetables that are high in potassium each day. These include: ? Avocado. ? Banana. ? Marshall, prune, carrot, or tomato juice. ? Baked [...] fish oil, or vitamin B6. ? Take skqw-ymm-skxtjii and prescription medicines only as told by your health care provider. These include supplements. What foods should I limit? Limit your in (more content not included)... Normal [facility] Urology Office/Clinic Noteon 06-06-2023 Urology [...] [address] [address]- Additional Instructions: w/KUB Patient Education Dietary Guidelines [...] with voice recognition artificial intelligence software, specifically [employer], [employer] and or [employer]. Substitutions may have occurred due to the inherent limitations of voice recognition and artificial intelligence software. 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 Normal [facility] Comment on above: Result Comment: Elec tronically Signed By: Yovany AKHTAR MD\.br\Date and Time Signed: 06/06/23 09:32 EDT\.br\Electronically Co-Signed By: Maura Teixeira\.br\Date and Time Co-Signed: 06/06/23 09:28 EDT RAD - MISCon 05-31-2023 RAD - MISC [id number]. 00CD:127 Normal [facility]22 [facility] [id number] .00CD:127 Normal [facility] [id number] .00CD:127 Normal [facility] Patient Educationon 06-17-20 Patient Education [...] Rhubarb. ? Beets. ? Potato chips and cymro fries. ? Nuts. ? If you regularly take a diuretic medicine, make sure to eat at least 1?2 fruits or vegetables high in potassium each day. These include: ? Avocado. ? Banana. ? Marshall, prune, carrot, or tomato juice. ? Baked [...] Anjana cruz (more content not included)... 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 Normal [facility] Comment on above: Result Comment: [...] by: MANSOOR LIMA Date: 2022-06-16 18:56 Normal [facility] Patient Educationon 06-10-20 Patient Education Urology [...] Rhubarb. ? Beets. ? Potato chips and cymro fries. ? Nuts. ? If you regularly take a diuretic medicine, make sure to eat at least 1?2 fruits or vegetables high in potassium each day. These include: ? Avocado. ? Banana. ? Marshall, prune, carrot, or tomato juice. ? Baked [...] Salfroylan cruz (more content not included)... Normal [facility] RAD - MISCon 06-10-2022 [facility] - M[facility] [id number] .00CD:127 Normal [facility] Urology Office/Clinic Noteon 06-10-2022 Urology Office/Clinic Note Chief Complaint Follow up HPI Staff Pt is here for PO ESWL. Pt went to [place] 05/29/22 for right flank pain. CT [...] ESWL 08/13/2020 - CT done 05/29/22 at [facility] showed 2mm right distal ureteral calculus. 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 Normal [facility] Comment on above: Result Comment: [...] MANSOOR LIMA Date: 2022-06-09 17:41 Normal [facility] CBC AUTO DIFFon 05-29-2022 BASO # 0.1 103/ul Normal 0.0-0.1 [facility] Comment on above: Performed By: #### C BC ####[facility] [address] [place] [id number]. Wyatt Aldrich Basophils/100 WBC (Bld) 0.2 % Normal 0.2-2.0 [facility] Comment on above: Performed By: #### C BC ####[facility] X[address]osxcis[address] [place] [id number] Aldrich EO # 0.0 103/ul Normal 0.0-0.7 [facility] Comment on above: Performed By: #### C BC ####[facility] [address] [place] [address]Dr. Wyatt Aldrich Eosinophils/100 WBC (Bld) 0.2 % Critically low 0.9-7.0 [facility] Comment on above: Performed By: #### C BC ####[facility] [address] [place] [address]Dr. Wyatt Aldrich Erythrocyte distribution width (RBC) [Ratio] 12.3 % Normal 11.0-15.0 [facility] Comment on above: Performed By: #### C BC ####[facility] [address] [place] [address]Dr. Wyatt Aldrich Hematocrit (Bld) [Volume fraction] 45.9 % Normal 42.0-54.0 [facility] Comment on above: Performed By: #### C BC ####[facility] L[address] [place], [place] [address]Dr. Wyatt Aldrich Hemoglobin (Bld) [Mass/Vol] 15.2 g/dL Normal 14.0-18.0 [facility] Comment on above: Performed By: #### C BC ####[facility] [address] [place] [address]Dr. Wyatt Aldrich IG # 0.09 10e3/ul Critically high 0.00-0.03 [facility] Comment on above: Performed By: #### C BC ####[facility] [address]tv[address] [place] [address]Dr. Wyatt Aldrich IG % 0.4 % Normal 0.0-0.5 [facility] Comment on above: Performed By: #### C BC ####[facility] [address] [place] [id number]. Wyatt Aldrich LYMPH # 1.1 103/ul Critically low 1.2-3.8 [facility] Comment on above: Performed By: #### C BC ####[facility] [address] [place], [place] [address]Dr. Wyatt Aldrich Lymphocytes/100 WBC (Bld) 5.1 % Critically low 20.5-60.0 [facility] Comment on above: Performed By: #### C BC ####[facility] [address] [place] [id number]. Wyatt Aldrich MANUAL DIFF REQ NO Normal [facility] Comment on above: Performed By: #### C BC ####[facility] W[address] [place] [id number]. Wyatt Aldrich MCH (RBC) [Entitic mass] 30.2 pg Normal 25.9-34.0 [facility] Comment on above: Performed By: #### C BC ####[facility] [address] [place], [place] [id number]. Wyatt Aldrich MCHC (RBC) [Mass/Vol] 33.1 g/dL Normal 29.9-35.2 [facility] Comment on above: Performed By: #### C BC ####[facility] [address] [place], [place] [address]Dr. Jossielalo Aldrich MCV (RBC) [Entitic vol] 91.3 fL Normal 80.0-94.0 [facility] Comment on above: Performed By: #### C BC ####[facility] C[address] [place], [place] [id number]. Wyatt Aldrich MONO # 1.4 103/ul Critically high 0.3-0.8 [facility] Comment on above: Performed By: #### C BC ####[facility] [address] [place], [place] [address]Dr. Wyatt Aldrich Monocytes/100 WBC (Bld) 6.7 % Normal 1.7-12.0 [facility] Comment on above: Performed By: #### C BC ####[facility] [address] [place], [place] [address]Dr. Jossielalo Aldrich NEUT # 18.5 103/ul Critically high 1.4-6.5 [facility] Comment on above: Performed By: #### C BC ####[facility] [address] [place], [place] [id number]. Wyatt Aldrich Neutrophils/100 WBC (Bld) 87.4 % Critically high 43.0-75.0 [facility] Comment on above: Performed By: #### C BC ####[facility] [address] [place], [place] [address]Rm. Wyatt Aldrich Platelet mean volume (Bld) [Entitic vol] 9.3 fL Critically low 9.5-13.5 [facility] Comment on above: Performed By: #### C BC ####[facility] [address] [place], [place] [address]Yk. Wyatt Aldrich PLT 303 103/ul Normal 150-450 [facility] Comment on above: Performed By: #### C BC ####[facility] [address] [place], [place] [address]Xq. Wyatt Aldrich RBC 5.03 106/ul Normal 4.70-6.10 [facility] Comment on above: Performed By: #### C BC ####[facility] [address] [place], [place] [address]Ns. Wyatt Aldrich WBC 21.2 103/ul Critically high 4.0-11.0 [facility] Comment on above: Performed By: #### C BC ####[facility] [address] [place], [place] [address]Ip. Wyatt Ald[address] CT ABD/PELVIS WO CONon 05-29 [...] BOO GUZMAN Date: 2022-05-29 17:32 Normal [facility] ER URINE PROFILEon 2 Bilirubin Ql (U) Negative Normal NEGATIVE [facility] Comment on above: Performed By: #### U MICRO, ERUR #### [facility] Laboratory [address] [place] [address] [address] Wyatt Aldrich Clarity (U) CLEAR Normal CLEAR [facility] Comment on above: Performed By: #### U MICRO, ERUR #### [facility] [address] [place] [address] [address] Wyatt Aldrich Color (U) LT. YELLOW Normal YELLOW [facility] Comment on above: Performed By: #### U MICRO, ERUR #### [facility] [address] [place] [address] Dr. Wyatt Aldrich ERUAHD A micrscopic examination will be performed if indicated. Normal [facility] Comment on above: Performed By: #### U MICRO, ERUR #### [facility] [address] [place] [address] [address] Wyatt Aldrich Glucose Ql (U) Negative Normal NEGATIVE [facility] Comment on above: Performed By: #### U MICRO, ERUR #### [facility] [address] [place] [address] [address] Wyatt Aldrich Hemoglobin Ql (U) TRACE-INTACT Abnormal NEGATIVE [facility] Comment on above: Performed By: #### U MICRO, ERUR #### [facility] [address] [place] [address] [address] Wyatt Aldrich Ketones Ql (U) Negative Normal NEGATIVE [facility] Comment on above: Performed By: #### U MICRO, ERUR #### [facility] [address] [place] [address] Dr. Wyatt Aldrich LEUKOCYTES Negative Normal NEGATIVE [facility] Comment on above: Performed By: #### U MICRO, ERUR #### [facility] [address] [place] [address] [address] Wyatt Aldrich Nitrite Ql (U) Negative Normal NEGATIVE [facility] Comment on above: Performed By: #### U MICRO, ERUR #### [facility] [address] [place] [address] Dr. Wyatt Aldrich pH (U) 7.0 [pH] Normal 5-9 [facility] Comment on above: Performed By: #### U MICRO, ERUR #### [facility] [address] [place] [address] Dr. Wyatt Aldrich SPEC GRAVITY 1.020 Normal 1.005-<=1.025 [facility] Comment on above: Performed By: #### U MICRO, ERUR #### [facility] [address] [place] [address] Dr. Wyatt Aldrich UA PROTEIN Negative Normal NEGATIVE/ TRACE [facility] Comment on above: Performed By: #### U MICRO, ERUR #### [facility] [address] [place] [address] Dr. Wyatt Aldrich UR MICRO IND INDICATED Normal [facility] Comment on above: Performed By: #### U MICRO, ERUR #### [facility] [address] [place] [address] Dr. Wyatt Aldrich Urobilinogen Qn (U) 0.2 {Sharon'U}/dL Normal 0.2 - 1. 0 [facility] Comment on above: Performed By: #### U MICRO, ERUR #### [facility] [address] [place] [address] Dr. Wyatt Aldrich PROF 14(COMP METB)on 022 Albumin [Mass/Vol] 3.9 g/dL Normal 3.4-5.0 [facility] Comment on above: Performed By: #### C MP #### [facility] [address] [place] [address] Dr. Wyatt Aldrich Albumin/Globulin [Mass ratio] 1.1 {ratio} Normal [facility] Comment on above: Performed By: #### C MP #### [facility] [address] [place] [address] Dr. Wyatt Aldrich ALP [Catalytic activity/Vol] 70 U/L Normal 46-116 [facility] Comment on above: Performed By: #### C MP #### [facility] [address] [place] [address] [address] Wyatt Aldrich ALT [Catalytic activity/Vol] 38 U/L Normal 16-63 [facility] Comment on above: Performed By: #### C MP #### [facility] [address] [place] [address] [address] Wyatt Aldrich Anion gap [Moles/Vol] 12.6 mmol/L Normal [facility] Comment on above: Performed By: #### C MP #### [facility] [address] [place] [address] [address] Wyatt Aldrich AST [Catalytic activity/Vol] 20 U/L Normal 15-37 [facility] Comment on above: Performed By: #### C MP #### [facility] [address] [place] [address] Dr. Wyatt Aldrich Bilirubin [Mass/Vol] 0.6 mg/dL Normal 0.2-1.0 [facility] Comment on above: Performed By: #### C MP #### [facility] [address] [place] [address] [address] Wyatt Aldrich Calcium [Mass/Vol] 8.7 mg/dL Normal 8.5-10.1 [facility] Comment on above: Performed By: #### C MP #### [facility] [address] [place] [address] [address] Wyatt Aldrich Chloride [Moles/Vol] 95 mmol/L Critically low 98-107 [facility] Comment on above: Performed By: #### C MP #### [facility] [address] [place] [address] [address] Wyatt Aldrich CO2 [Moles/Vol] 29.9 mmol/L Normal 21.0-32.0 [facility] Comment on above: Performed By: #### C MP #### [facility] [address] [place] [address] [address] Wyatt Aldrich Creatinine [Mass/Vol] 1.04 mg/dL Normal 0.70-1.30 [facility] Comment on above: Performed By: #### C MP #### [facility] [address] [place] [address] [address] Wyatt Aldrich EGFR-AF DJIBOUTIAN >60 Normal >=60 [facility] Comment on above: Performed By: #### C MP #### [facility] [address] [place] [address] [address] Wyatt Aldrich EGFR-NON AF DJIBOUTIAN >60 Normal >=60 [facility] Comment on above: Performed By: #### C MP #### [facility] [address] [place] [address] [address] Wyatt Aldrich Globulin (S) [Mass/Vol] 3.4 g/dL Normal [facility] Comment on above: Performed By: #### C MP #### [facility] [address] [place] [address] Dr. Wyatt Aldrich Glucose [Mass/Vol] 148 mg/dL Critically high 74-106 [facility] Comment on above: Performed By: #### C MP #### [facility] [address] [place] [address] [address] Wyatt Aldrich Potassium [Moles/Vol] 4.5 mmol/L Normal 3.5-5.1 [facility] Comment on above: Performed By: #### C MP #### [facility] [address] [place] [address] Dr. Wyatt Aldrich Protein [Mass/Vol] 7.3 g/dL Normal 6.4-8.2 [facility] Comment on above: Performed By: #### C MP #### [facility] [address] [place] [address] [address] Wyatt Aldrich Sodium [Moles/Vol] 133 mmol/L Critically low 136-145 [facility] Comment on above: Performed By: #### C MP #### [facility] [address] [place] [address] [address] Wyatt Aldrich Urea nitrogen [Mass/Vol] 15.0 mg/dL Normal 7.0-18.0 [facility] Comment on above: Performed By: #### C MP #### [facility] [address] [place] [address] Dr. Wyatt Aldrich Urea nitrogen/Creatinine [Mass ratio] 14.4 mg/mg Normal [facility] Comment on above: Performed By: #### C MP #### [facility] [address] [place] [address] Dr. Wyatt Aldrich URINE MICROSCOPIC ONLYon BACTERIA NONE SEEN Normal NONE SEEN [facility] Comment on above: Performed By: #### U MICRO, ERUR #### [facility] [address] [place] [address] Dr. Wyatt Aldrich Bacteria identified Cx Nom (U) NOT INDICATED Normal [facility] Comment on above: Performed By: #### U MICRO, ERUR #### [facility] [address] [place] [address] Dr. Wyatt Aldrich CAST NONE SEEN Normal NONE SEEN [facility] Comment on above: Performed By: #### U MICRO, ERUR #### [facility] [address] [place] [address] Dr. Wyatt Aldrich Crystals LM Nom (Urine sed) NONE SEEN Normal NONE SEEN [facility] Comment on above: Performed By: #### U MICRO, ERUR #### [facility] [address] [place] [address] Dr. Wyatt Aldrich Epithelial cells LM Ql (Urine sed) NONE SEEN Normal NONE SEEN /RARE [facility] Comment on above: Performed By: #### U MICRO, ERUR #### [facility] [address] [place] [address] Dr. Wyatt Aldrich MUCOUS NONE SEEN Normal NONE SEEN [facility] Comment on above: Performed By: #### U MICRO, ERUR #### [facility] [address] [place] [address] Dr. Wyatt Aldrich RBC 2-5 Abnormal 0-2 [facility] Comment on above: Performed By: #### U MICRO, ERUR #### [facility] [address] [place] [address] Dr. Wyatt Aldrich WBC NONE SEEN Normal NONE SEEN [facility] Comment on above: Performed By: #### U MICRO, ERUR #### [facility] [address] [place], [place] [address] Dr. Wyatt Aldrich T4 LABCORPon 01-29-2022 T4 [Mass/Vol] 9.1 ug/dL Normal 4.5-12.0 [facility] Comment on above: Performed By: #### T 4LC ####[facility] [address] [place] [id number]. Wyatt Aldrich CBC AUTO DIFFon 01-28-2022 BASO # 0.1 103/ul Normal 0.0-0.1 [facility] Comment on above: Performed By: #### C BC ####[facility] [address] [place] [address]Dr. Wyatt Aldrich Basophils/100 WBC (Bld) 0.6 % Normal 0.2-2.0 [facility] Comment on above: Performed By: #### C BC ####[facility] [address] [place], [place] [address]Dr. Wyatt Aldrich EO # 0.2 103/ul Normal 0.0-0.7 [facility] Comment on above: Performed By: #### C BC ####[facility] [address] [place], [place] [address]Dr. Wyatt Aldrich Eosinophils/100 WBC (Bld) 2.4 % Normal 0.9-7.0 [facility] Comment on above: Performed By: #### C BC ####[facility] [address] [place], [place] [address]Dr. Wyatt Aldrich Erythrocyte distribution width (RBC) [Ratio] 12.5 % Normal 11.0-15.0 [facility] Comment on above: Performed By: #### C BC ####[facility] [address] [place], [place] [address]DrCullen Aldrich Hematocrit (Bld) [Volume fraction] 43.5 % Normal 42.0-54.0 [facility] Comment on above: Performed By: #### C BC ####[facility] [address] [place], [place] [address]DrCullen Aldrich Hemoglobin (Bld) [Mass/Vol] 14.4 g/dL Normal 14.0-18.0 [facility] Comment on above: Performed By: #### C BC ####[facility] [address] [place] [address]DrCullen Aldrich IG # 0.03 10e3/ul Normal 0.00-0.03 [facility] Comment on above: Performed By: #### C BC ####[facility] [address] [place] [address]DrCullen Aldrich IG % 0.4 % Normal 0.0-0.5 [facility] Comment on above: Performed By: #### C BC ####[facility] [address] [place], [place] [address]DrCullen Aldrich LYMPH # 2.1 103/ul Normal 1.2-3.8 [facility] Comment on above: Performed By: #### C BC ####[facility] [address] [place] [address]DrCullen Aldrich Lymphocytes/100 WBC (Bld) 24.8 % Normal 20.5-60.0 [facility] Comment on above: Performed By: #### C BC ####[facility] [address] [place] [address]DrCullen Aldrich MANUAL DIFF REQ NO Normal [facility] Comment on above: Performed By: #### C BC ####[facility] [address] [place] [address]DrCullen Aldrich MCH (RBC) [Entitic mass] 30.6 pg Normal 25.9-34.0 [facility] Comment on above: Performed By: #### C BC ####[facility] [address] [place] [id number] Aldrich MCHC (RBC) [Mass/Vol] 33.1 g/dL Normal 29.9-35.2 [facility] Comment on above: Performed By: #### C BC ####[facility] [address] [place] [id number] Aldrich MCV (RBC) [Entitic vol] 92.6 fL Normal 80.0-94.0 [facility] Comment on above: Performed By: #### C BC ####[facility] [address] [place] [address]Dr. Wyatt Aldrich MONO # 0.6 103/ul Normal 0.3-0.8 [facility] Comment on above: Performed By: #### C BC ####[facility] [address] [place] [address]Dr. Wyatt Aldrich Monocytes/100 WBC (Bld) 7.7 % Normal 1.7-12.0 [facility] Comment on above: Performed By: #### C BC ####[facility] [address] [place] [address]Dr. Wyatt Aldrich NEUT # 5.3 103/ul Normal 1.4-6.5 [facility] Comment on above: Performed By: #### C BC ####[facility] [address] [place], [place] [address]Dr. Wyatt Aldrich Neutrophils/100 WBC (Bld) 64.1 % Normal 43.0-75.0 [facility] Comment on above: Performed By: #### C BC ####[facility] [address] [place], [place] [address]Dr. Wyatt Aldrich Platelet mean volume (Bld) [Entitic vol] 9.4 fL Critically low 9.5-13.5 [facility] Comment on above: Performed By: #### C BC ####[facility] F[address] [place], [place] [address]Dr. Wyatt Aldrich PLT 280 103/ul Normal 150-450 [facility] Comment on above: Performed By: #### C BC ####[facility] [address] [place], [place] [id number]. Wyatt Aldrich RBC 4.70 106/ul Normal 4.70-6.10 [facility] Comment on above: Performed By: #### C BC ####[facility] [address] [place] [address]Dr. Jossielalo Valdemar WBC 8.3 103/ul Normal 4.0-11.0 [facility] Comment on above: Performed By: #### C BC ####[facility] [address] [place] [id number]. Wyatt Aldrich FREE T3on 01-28-2022 FREE T3 2.70 pg/mlL Normal 2.18-3.98 [facility] Comment on above: Performed By: #### L IPID, CMP, TSH, FT3 ####[facility] [address] [place] [id number] Aldrich GLYCOHEMOGLOBIN A1Con 2021 ADA RECOMMENDATION SEE BELOW Normal [facility] Comment on above: Result Comment: ADA RECOMMENDED LIMIT 4.0 - 6.0 ADA THERAPEUTIC TARGET < 7.0 ACTION SUGGESTED > 7.0 Performed By: #### A 1C #### [facility] [address] [address] [address] Wyatt Aldrich Glucose [Mass/Vol] 143 mg/dL Normal [facility] Comment on above: Performed By: #### A 1C #### [facility] [address] [address] [address] Wyatt Aldrich HbA1c (Bld) [Mass fraction] 6.6 % Critically high 4.5-6.2 [facility] Comment on above: Performed By: #### A 1C #### [facility] [address] [address] [address] Wyatt Aldrich LIPID PROFILEon 01-28-2022 CHOL-HDL RATIO NORM SEE BELOW Normal [facility] Comment on above: Result Comment: 3.3 - 4.4 LOW RISK 4.4 - 7.1 AVERAGE RISK 7.1 - 11.0 MODERATE RISK >11.0 HIGH RISK Performed By: #### L IPID, CMP, TSH, FT3 ####[facility] [address] [place] [id number]. Wyatt Aldrich Cholesterol [Mass/Vol] 176 mg/dL Normal <=200 [facility] Comment on above: Performed By: #### L IPID, CMP, TSH, FT3 ####[facility] [address] [place] [address]Dr. Wyatt Aldrich Cholesterol in HDL [Mass/Vol] 35 mg/dL Critically low 40-60 [facility] Comment on above: Performed By: #### L IPID, CMP, TSH, FT3 ####[facility] [address] [place] [address]Dr. Wyatt Aldrich Cholesterol in LDL [Mass/Vol] 94.4 mg/dL Normal [facility] Comment on above: Performed By: #### L IPID, CMP, TSH, FT3 ####[facility] [address] [place] [id number]. Wyatt Aldrich Cholesterol.total/Cho lesterol in HDL [Mass ratio] 5.0 {ratio} Normal [facility] Comment on above: Performed By: #### L IPID, CMP, TSH, FT3 ####[facility] [address] [place] [address]Dr. Wyatt Aldrich HDL NORMAL > or = 60 mg/dl - LO W CARDIOVASCULAR RISK <40 mg/dl - HIGH CARDIOVASCULAR RISK Normal [facility] Comment on above: Performed By: #### L IPID, CMP, TSH, FT3 ####[facility] [address] [place] [address]Dr. Wyatt Aldrich LDL CALC NORMAL SEE BELOW Normal [facility] Comment on above: Result Comment: <100 mg/dl OPTIMAL 100 - 129 mg/dl NEAR OR ABOVE OPTIMAL 130 - 159 mg/dl BORDERLINE HIGH 160 - 189 mg/dl HIGH >190 mg/dl VERY HIGH Performed By: #### L IPID, CMP, TSH, FT3 ####[facility] [address] [place] [id number]. Wyatt Aldrich Triglyceride [Mass/Vol] 233 mg/dL Critically high <=150 [facility] Comment on above: Performed By: #### L IPID, CMP, TSH, FT3 ####[facility] [address] [place] [address]Dr. Wyatt Aldrich VLDL CALC 46.6 mg/dL Normal [facility] Comment on above: Performed By: #### L IPID, CMP, TSH, FT3 ####[facility] [address] [place] [address]Dr. Wyatt Aldrich OCC BLD IMMUNO SCREENon 01-03 OCCULT BLOOD Negative Normal NEGATIVE [facility] Comment on above: Performed By: #### O BSCRN #### [facility] [address] [address] [address] Wyatt Aldrich PROF 14(COMP METB)on 022 Albumin [Mass/Vol] 3.4 g/dL Normal 3.4-5.0 [facility] Comment on above: Performed By: #### L IPID, CMP, TSH, FT3 ####[facility] [address] [place] [address]Dr. Wyatt Aldrich Albumin/Globulin [Mass ratio] 1.0 {ratio} Normal [facility] Comment on above: Performed By: #### L IPID, CMP, TSH, FT3 ####[facility] [address]mq[address]wh[address] [place] [address]Dr. Wyatt Aldrich ALP [Catalytic activity/Vol] 65 U/L Normal 46-116 [facility] Comment on above: Performed By: #### L IPID, CMP, TSH, FT3 ####[facility] [address] [place] [address]Dr. Wyatt Aldrich ALT [Catalytic activity/Vol] 45 U/L Normal 16-63 [facility] Comment on above: Performed By: #### L IPID, CMP, TSH, FT3 ####[facility] [address] [place] [address]Dr. Wyatt Aldrich Anion gap [Moles/Vol] 9.7 mmol/L Normal [facility] Comment on above: Performed By: #### L IPID, CMP, TSH, FT3 ####[facility] [address] [place] [address]Dr. Wyatt Aldrich AST [Catalytic activity/Vol] 20 U/L Normal 15-37 [facility] Comment on above: Performed By: #### L IPID, CMP, TSH, FT3 ####[facility] [address] [place] [address]Dr. Wyatt Aldrich Bilirubin [Mass/Vol] 0.4 mg/dL Normal 0.2-1.0 [facility] Comment on above: Performed By: #### L IPID, CMP, TSH, FT3 ####[facility] [address] [place] [address]Dr. Wyatt Aldrich Calcium [Mass/Vol] 8.5 mg/dL Normal 8.5-10.1 [facility] Comment on above: Performed By: #### L IPID, CMP, TSH, FT3 ####[facility] [address] [place] [address]Dr. Wyatt Aldrich Chloride [Moles/Vol] 101 mmol/L Normal 98-107 [facility] Comment on above: Performed By: #### L IPID, CMP, TSH, FT3 ####[facility] [address] [place] [address]Dr. yWatt Aldrich CO2 [Moles/Vol] 33.3 mmol/L Critically high 21.0-32.0 [facility] Comment on above: Performed By: #### L IPID, CMP, TSH, FT3 ####[facility] Occ[address] [place] [address]Dr. Wyatt Aldrich Creatinine [Mass/Vol] 0.77 mg/dL Normal 0.70-1.30 [facility] Comment on above: Performed By: #### L IPID, CMP, TSH, FT3 ####[facility] [address] [place] [address]Dr. Wyatt Aldrich EGFR-AF DJIBOUTIAN >60 Normal >=60 [facility] Comment on above: Performed By: #### L IPID, CMP, TSH, FT3 ####[facility] [address] [place] [address]Dr. Wyatt Aldrich EGFR-NON AF DJIBOUTIAN >60 Normal >=60 [facility] Comment on above: Performed By: #### L IPID, CMP, TSH, FT3 ####[facility] [address] [place] [address]Dr. Wyatt Aldrich Globulin (S) [Mass/Vol] 3.3 g/dL Normal [facility] Comment on above: Performed By: #### L IPID, CMP, TSH, FT3 ####[facility] [address]isf[address] [place] [address]Dr. Wyatt Aldrich Glucose [Mass/Vol] 137 mg/dL Critically high 74-106 [facility] Comment on above: Performed By: #### L IPID, CMP, TSH, FT3 ####[facility] [address] [place] [address]Dr. Wyatt Aldrich Potassium [Moles/Vol] 4.0 mmol/L Normal 3.5-5.1 [facility] Comment on above: Performed By: #### L IPID, CMP, TSH, FT3 ####[facility] [address] [place] [address]Dr. Wyatt Aldrich Protein [Mass/Vol] 6.7 g/dL Normal 6.4-8.2 [facility] Comment on above: Performed By: #### L IPID, CMP, TSH, FT3 ####[facility] [address] [place], [place] [address]Dr. Wyatt Aldrich Sodium [Moles/Vol] 140 mmol/L Normal 136-145 [facility] Comment on above: Performed By: #### L IPID, CMP, TSH, FT3 ####[facility] [address] [place] [address]Dr. Wyatt Aldrich Urea nitrogen [Mass/Vol] 13.0 mg/dL Normal 7.0-18.0 [facility] Comment on above: Performed By: #### L IPID, CMP, TSH, FT3 ####[facility] [address] [place] [address]Dr. Wyatt Aldrich Urea nitrogen/Creatinine [Mass ratio] 16.9 mg/mg Normal [facility] Comment on above: Performed By: #### L IPID, CMP, TSH, FT3 ####[facility] [address] [place] [address]Dr. Wyatt Aldrich TSHon 01-28-2022 TSH 5.562 uIU/mL Critically high 0.358-3.740 [facility] Comment on above: Performed By: #### L IPID, CMP, TSH, FT3 ####[facility] [address] [place], [place] [address]Ll. Wyatt Aldrich TSH RANGE SEE BELOW Normal [facility] Comment on above: Result Comment: <0.3 4 UIU/ml HYPERTHYROID 0.34-5.60 UIU/ml EUTHYROID >5.60 UIU/ml HYPOTHYROID Performed By: #### L IPID, CMP, TSH, FT3 ####[facility] [address] [place], [place] [address]Zd. Wyatt Aldrich XR KUB 1 VIEWon 01-20-2022 [...] MANSOOR [place] Date: 2022-01-20 14:12 Normal [facility] MRI LSPINE WO W CONon 2021 [place] CON EXAMINATION: [place] WO W CON HISTORY: Prolapsed lumbar intervertebral [...] by: TANISHA CHIU Date: 2021-10-04 11:23 Normal [facility] XR LSPINE MIN 4 VIEWSon 09-05 [...] by: SOLO SAVAGE Date: 2021-09-27 11:31 Normal [facility] Vital Signs Date Time Vital Sign Value Performing Clinician Jessi chowdhury 06-06-2023 08:48-0400 Blood Pressure Location Yovany GIOVANA [facility] 06-06-2023 08:48-0400 Diastolic blood pressure 66 mm[Hg] Yovany GIOVANA [facility] 06-06-2023 08:48-0400 Heart rate 83 /min Yovany COOK [facility] 06-06-2023 08:48-0400 Systolic blood pressure 142 mm[Hg] Yovany COOK [facility] 06-17-2022 09:14-0400 Blood Pressure Location Yovany COOK [facility] 06-17-2022 09:14-0400 Diastolic blood pressure 96 mm[Hg] Yovany COOK [facility] 06-17-2022 09:14-0400 Heart rate 67 /min Yovany COOK [facility] 06-17-2022 09:14-0400 Systolic blood pressure 159 mm[Hg] Yovany COOK [facility] 06-10-2022 09:54-0400 Blood Pressure Location Yovany COOK [facility] 06-10-2022 09:54-0400 Diastolic blood pressure 102 mm[Hg] Yovany COOK [facility] 06-10-2022 09:54-0400 Heart rate 68 /min Yovany COOK [facility] 06-10-2022 09:54-0400 Systolic blood pressure 166 mm[Hg] Yovany COOK [facility] 01-21-2022 08:44-0400 Blood Pressure Location Yovany COOK [facility] 01-21-2022 08:44-0400 Diastolic blood pressure 87 mm[Hg] Yovany AKHTAR [facility] 01-21-2022 08:44-0400 Heart rate 72 /min Yovany AKHTAR [facility] 01-21-2022 08:44-0400 Systolic blood pressure 140 mm[Hg] Yovany AKHTAR [facility] Encounters Encounter Date Encounter Type Care Provider Facility Start: 06-11-2024 ambulatory Yovany AKHTAR Facility : [facility] Start: 02-19-2024 End: 02-19-2024 [...] procedure Yovany Aquiles AKHTAR [facility] Start: 06-17-2022 End: 06-18-2022 ambulatory Yovanykourtney AKHTAR Facility:[facility] Start: 06-17-2022 End: 06-17-2022 Patient encounter procedure Yovany AKHTAR [facility] Start: 06-16-2022 End: 06-17-[address] NANCY FERNANDEZ Facility:[facility] Start: 06-10-2022 End: 06-11-2022 ambulatory Yovany AKHTAR Facility:[facility] Start: 06-10-2022 End: 06-10-2022 Patient encounter procedure Yovany AKHTAR [facility] Start: 06-09-2022 End: 06-10-[address] NANCY FERNANDEZ Facility:[facility] Start: 05-29-2022 End: 05-29-[address] NANCY FERNANDEZ Facility:[facility] Start: 05-11-2022 End: 05-11-2022 Patient encounter procedure Yovany AKHTAR [facility] Start: 02-03-2022 Encounter for genera l adult medical examination without abnormal findings DR NANCY FERNANDEZ [facility] Start: 01-28-2022 End: 01-29-[address] NANCY FERNANDEZ Facility:[facility] Start: 01-28-2022 End: 01-29-2022 Encounter for general adult medical examination without abnormal findings DR NANCY FERNANDEZ Facility:[facility] Start: 01-21-2022 End: 01-21-2022 Patient encounter procedure Yovany AKHTAR [facility] Start: 01-20-2022 End: 01-21-2022 ambulatory [...] on above: Performed By: #### P SAD ####[place] [address] [place] [address]DrCullen Aldrich Start: 08-13-2020 Extracorporeal shock wave lithotripsy of calculus of kidney Yovany AKHTAR Dental surgical procedure Gr poncho AKHTAR Entire gallbladder ( body structure) Yovany AKHTAR History of tonsillectomy Mitul AKHTAR Kidney stone (disorder) Gee AKHTAR l4 l5 disectomy Yovany AKHTAR carlo anal abcess Yovany Dowling Repair of anal fistula Marvel AKHTAR Immunizations Immunization Date Immunization Notes Care Provider [facility] 04-19-2022 zoster vaccine recombinant Yovany AKHTAR [facility] 02-12-2022 pneumococcal 20-maría nt conjugate vaccine Yovany AKHTAR [facility] 02-03-2022 zoster vaccine recombinant Yovany AKHTAR [facility] 12-08-2020 SARS-CoV-2 (COVID-19 ) mRNA-1273 vaccine Yovany AKHTAR [facility] 11-17-2020 SARS-CoV-2 (COVID-19 ) mRNA BNT-162b2 vax Yovany AKHTAR [facility] 11-11-2020 SARS-CoV-2 (COVID-19 ) mRNA-1273 vaccine Yovany AKHTAR [facility] Payers Date Payer Category Payer Unknown 2023 Unknown [id number] 1965 Unknown [id number] 2.16.84 [id number] 1965 Unknown [id number] 2.16.84 [id number] 1964 Unknown [id number] 2.16.84 0.1.678165.3.579.2.593 1964 Unknown [id number] 2.16.84 0.1.562703.3.579.2.593 1964 Unknown [id number] 2.16.84 0.1.840536.3.579.2.593 1964 Unknown [id number] 2.16.84 0.1.067826.3.579.2.593 1964 Unknown [id number] 2.16.84 0.1.079206.3.579.2.593 1964 Unknown [id number] 2.16.84 0.1.551522.3.579.2.593 1964 Unknown [id number] 2.16.8 40.1.316774.3.579.2.727 1964 Unknown [id number] 2.16.8 40.1.646490.3.579.2.727 1964 Unknown [id number] 2.16.8 40.1.647368.3.579.2.727 1964 Unknown [id number] 2.16.8 40.1.835013.3.579.2.727 1964 Unknown [id number] 2.16.84 0.1.954748.3.579.2.1259 1964 Unknown [id number] 2.16.84 0.1.937032.3.579.2.1259 1964 Unknown [id number] 2.16.84 0.1.145207.3.579.2.1259 1964 Unknown [id number] 2.16. 840.1.092111.3.579.2.196 1964 Unknown [id number] 2.16. [id number] 1960 Private Health Insurance [id number] Social History Date Type Detail Facility Start: 01-15-2021 End: 06-06-2023 Tobacco smoking status Ex-smoker (finding) [facility] Tobacco smoking status Never [facility] Sex Assigned At Male [facility] Functional Status Date Assessment Result Facility 06-06-2023 Functional Status N/A [facility] 06-17-2022 Functional Status N/A [facility] 06-10-2022 Functional Status N/A [facility] Clinical [...] include: ?8 oz (237 mL) of milk, qmrxpix-zxeaunrmyshx-nyyxi milk, and calcium-fortifiedfruit juice. Calcium-fortified means that [...] ?Spinach (cooked), rhubarb, beets, sweet potatoes, and Paraguayan chard. ?Peanuts. ?Potato chips, cymro fries, and baked potatoes with skin on. ?Nuts and nut products. ?Chocolate. If you regularly take a diuretic medicine, make sure to eat at least 1 or 2 servings of fruits or vegetables that are high in potassium each day. These include: ?Avocado. ?Banana. ?Marshall, prune, carrot, or tomato juice. ?Baked potato. [...] magnesium, fish oil, or vitamin B6. Take wpoj-ekk-tvsxrto and prescription medicines only as told by [...] Casseroles. Pizza. Lasagna. Frozen meals. Potato chips. Sami fries. The items listed above may not [...] provider. Document Revised: 05/02/2022 Document Reviewed: 05/02/2022 [employer] Patient Education 2022 [employer]. Follow Up Care 01/21/2022 09:03:45 With:GIOVANA CANTOR, Yovany Kwan, URL Address: [address] [address]- When:Within 1 Year(s) Comments:w/MT [facility] 06-17-2022 Hospital Discharge instructions Patient Education 06/17/2022 [...] include: ?Spinach. ?Rhubarb. ?Beets. ?Potato chips and cymro fries. ?Nuts. If you regularly take a diuretic medicine, make sure to eat at least 1 2 fruits or vegetables high in potassium each day. These include: ?Avocado. ?Banana. ?Marshall, prune, carrot, or tomato juice. ?Baked potato. [...] Casseroles. Pizza. Lasagna. Frozen meals. Potato chips. Sami fries. Summary You can reduce your risk [...] 12/16/2011 Document Revised: 12/11/2019 Document Reviewed: 08/01/2017 [employer] Patient Education 2020 [employer]. Follow Up Care 06/10/2022 10:24:22 With:GIOVANA CANTOR, Yovany P, URL Address: [address] [place] [address]- When:6 months Comments:w/ [place] [facility] 06-10-2022 Hospital Discharge instructions Patient [...] include: ?Spinach. ?Rhubarb. ?Beets. ?Potato chips and cymro fries. ?Nuts. If you regularly take a diuretic medicine, make sure to eat at least 1 2 fruits or vegetables high in potassium each day. These include: ?Avocado. ?Banana. ?Marshall, prune, carrot, or tomato juice. ?Baked potato. [...] Casseroles. Pizza. Lasagna. Frozen meals. Potato chips. Sami fries. Summary You can reduce your risk [...] 12/16/2011 Document Revised: 12/11/2019 Document Reviewed: 08/01/2017 [employer] Patient Education 2020 [employer]. Follow Up Care 05/30/2022 09:25:01 With:GIOVANA CANTOR, Yovany Kwan, URL Address: [facility] [address] [id number]- When:2 weeks Comments:MT [facility] 01-21-2022 Hospital Discharge instructions Patient [...] urethra. Follow these instructions at home: Take eysb-ncd-cnwtgir and prescription medicines only as told by [...] 08/21/2006 Document Revised: 07/16/2019 Document Reviewed: 09/25/2017 [employer] Patient Education 2020 [employer]. Follow Up Care 01/15/2021 08:45:48 With:Yovany AKHTAR MD, URL Address: [address] [place], [place] [phone]- When:01/21/2023 Comments:with PSA and x-ray [facility] Evaluation + Plan note Future Appointments Appointment Date:02/24/2023 08:00:00 AM Scheduled Provider:Yovany AKHTAR MD Location:[facility] Appointment Type:URO Office Visit [facility] Evaluation + Plan note Future Appointments Appointment Date:02/24/2023 08:00:00 AM Scheduled Provider:Yovany AKHTAR MD [facility] Appoint[facility] Type:URO Office Visit Future Scheduled TestsPT & PTT 04/20/22BUN 04/20/22Creatinine 04/20/22Electrolyte Panel 04/20/22CBC w/ Auto Diff 04/20/22 [facility] Evaluation + Plan note Future Appointments Appointment Date:06/17/2022 09:15:00 AM Scheduled Provider:Yovany AKHTAR MD Location:[facility] Appointment Type:URO Office Visit Appointment Date:02/24/2023 08:00:00 AM Scheduled Provider:Yovany AKHTAR MD [facility] Appoint[facility] Type:URO Office Visit [facility] Evaluation + Plan note Future Appointments Appointment Date:06/11/2024 08:00:00 AM Scheduled Provider:Yovany AKTHAR MD Location:[facility] Appointment Type:URO Office Visit [facility] Hospital course Narrative No data available for this section [facility] Hospital Discharge instructions No data available for this section [facility] Progress note No data available for this section [facility] Summary Purpose Family History No Family History Records Found No data available for this section No Family History Records FoundNo Family History Records FoundNo Family History Records Found Advance Directives No Advanced Directives Records FoundNo Advanced Directives Records FoundNo Advanced Directives Records FoundNo Advanced Directives Records Found Additional Source Comments Care Team (unrecognized sect ion and content) Personnel Name: Nancy Fernandez MD Address: [address] [place] [address] Personnel Name: Nancy Fernandez MD Address: Address: [address] [place] [address] Personnel Name: Nancy Fernandez MD Address: Address: [address] [place] [address] Personnel Name: Nancy Fernandez MD Address: Address: [address] [place] [address] (unrecognized sect ion and content) No Status Records FoundNo Status Records FoundNo Status Records FoundNo Status Records Found INFORMATION SOURCE (unrecogn ized section and content) DATE CREATED AUTHOR [facility]2022 [facility] DATE CREATED AUTHOR AUTHOR'S ORGANIZ ATION 06/08/2023 [facility] DATE CREATED AUTHOR AUTHOR'S ORGANIZ ATION 12/26/2023 [facility] DATE CREATED AUTHOR AUTHOR'S ORGANIZ ATION 02/25/2024 [facility] FOR RECORDS PERTAINING TO PATIENTS [...] BE BASED ON THE PRIMARY CLINICAL RECORDS. [employer] [facility]. provides no warranty or guarantee of the accuracy or completeness of information in this document.
--- NOTE | 2024-06-07 08:34 | XR_ITS ---
The [address] [address] Patient Name: LIZ SHELBY MRN: [id number] date: 1965 Sex: M Assigned Patient Location: [facility] Current Patient Location: Accession/Order Number: [id number] Exam Date: 06/07/2024 08:42 Report Date: 06/09/2024 06:33 At the request of: PORSCHE AKHTAR Procedure: XR abdomen 1V EXAMINATION: XR abdomen 1V HISTORY: Kidney Stones COMPARISON: XR abdomen 05/31/2023 FINDINGS: KIDNEY/URETER - RIGHT: No visible renal or ureteral calcifications. KIDNEY/URETER - LEFT: No visible renal or ureteral calcifications. PELVIS: No visible ureteral stones. BOWEL: No abnormal dilation or deviation. BONES: No acute abnormality. OTHER: Negative. No abnormal gaseous collections. XR/XR abdomen 1V IMPRESSION: 1. No appreciable urinary tract calculi. Electronically authenticated by: SOLO SAVAGE Date: 06/09/2024 06:33
== END 2024-06-07 08:28 | disposition home or self-care (01) ==
LOC: RAD 08:29
PROVIDERS: PCP Family Medicine; Visit Provider Urology
DX: N20.0 Calculus of kidney (principal)
CPT/HCPCS: 74018

== ENCOUNTER 2024-06-10 07:25 | Day surgery (SDC) | payer BC, SELFPAY ==
--- OUTSIDE RECORDS SUMMARY | 2024-06-10 07:35 | XMS_ITS | CCD ---
Author Organization [facility] Care Team Providers Care Bilingual Customer Service Specialist Name Role Phone Nancy Fernandez Primary [...] Allergy Hyperactive behavior (finding) [facility] Andrew Medications Current Medications Medication Drug Class(es) [...] 30 cap(s), Refills(s) 2, [facility]acy: [id number], 188, cm, 06/10/22 9:57:00 EDT, Height/Length Dosing, [...] 02-19-2019 Episodic Other aftercare (1 source) Other retirement (current) drug therapy; Translations: [OTH PENITENTIARY CURRENT DRUG THERAPY] Onset: 05-31-20 Episodic Other aftercare (1 source) skilled nursing (current) use of aspirin; 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 OT SHRP OB NOT ELSW CLASS INI] [...] Interpretation Reference Range Facility [facility]enson 06-07-2023 Screens [id number]# 1.00CD:127 [facility] Ambulatory Visit Summaryon 1 Ambulatory Visit Summary LIZ HERNANDEZ :1965 Visit Date:06/06/2023 Ambulatory Visit Instructions Your Diagnosis BPH (benign prostatic hyperplasia) Kidney stone Tests Performed Urnls Dip Stick Auto w/o Microscopy POC 83239 XR Abdomen 1 View -- Results Pending [...] Spinach (cooked), rhubarb, beets, sweet potatoes, and Dutch chard. ? Peanuts. ? Potato chips, yemeni fries, and baked potatoes with skin on. ? Nuts and nut products. ? Chocolate. ? If you regularly take a diuretic medicine, make sure to eat at least 1 or 2 servings of fruits or vegetables that are high in potassium each day. These include: ? Avocado. ? Banana. ? Stearns, prune, carrot, or tomato juice. ? Baked [...] fish oil, or vitamin B6. ? Take kxpl-vwj-zwvhdry and prescription medicines only as told by your health care provider. These include supplements. What foods should I limit? Limit your in (more content not included)... Normal [facility] Urology Office/Clinic Noteon 06-06-2023 Urology Office/Clinic [...] [address] [address]- Additional Instructions: w/KUB Patient Education Dietary Guidelines [...] with voice recognition artificial intelligence software, specifically e[employer]ix, [email or web address] and or [employer]. Substitutions may have occurred due to the inherent limitations of voice recognition and artificial intelligence software. 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 Normal [facility] Comment on above: Result Comment: Elec tronically Signed By: Yovany AKHTAR MD\.br\Date and Time Signed: 06/06/23 09:32 EDT\.br\Electronically Co-Signed By: Maura Teixeira\.br\Date and Time Co-Signed: 06/06/23 09:28 EDT RAD - MISCon 05-31-2023 RAD - MISC [id number]. 00CD:127 [facility] [id number] .00CD:127 Normal [facility] [id number] .00CD:127 Normal [facility] Patient Educationon 06-17-20 Patient Education Urology [...] Rhubarb. ? Beets. ? Potato chips and yemeni fries. ? Nuts. ? If you regularly take a diuretic medicine, make sure to eat at least 1?2 fruits or vegetables high in potassium each day. These include: ? Avocado. ? Banana. ? Stearns, prune, carrot, or tomato juice. ? Baked [...] Anjana cruz (more content not included)... 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 Normal [facility] Comment on above: Result Comment: Elec [...] LIMA Date: 2022-06-16 18:56 Normal [facility] Patient Educationon 06-10-20 Patient Education Urology [...] Rhubarb. ? Beets. ? Potato chips and yemeni fries. ? Nuts. ? If you regularly take a diuretic medicine, make sure to eat at least 1?2 fruits or vegetables high in potassium each day. These include: ? Avocado. ? Banana. ? Stearns, prune, carrot, or tomato juice. ? Baked [...] Salfroylan cruz (more content not included)... Normal [facility] RAD - MISCon 06-10-2022 [facility] [id number] .00CD:127 Normal [facility] Urology Office/Clinic Noteon 06-10-2022 Urology Office/Clinic Note Chief Complaint Follow up HPI Staff Pt is here for PO ESWL. Pt went to [place] [facility] 05/29/22 for right flank pain. CT [...] ESWL 08/13/2020 - CT done 05/29/22 at [facility] showed 2mm right distal ureteral calculus. 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 Normal [facility] Comment on above: Result Comment: Elec [...] MANSOOR LIMA Date: 2022-06-09 17:41 Normal [facility] CBC AUTO DIFFon 05-29-2022 BASO # 0.1 103/ul Normal 0.0-0.1 [facility] Comment on above: Performed By: #### C BC ####[facility] [address] [place] [id number]. Wyatt Aldrich Basophils/100 WBC (Bld) 0.2 % Normal 0.2-2.0 [facility] Comment on above: Performed By: #### C BC ####[facility] [address] [place] [address]DrCullen Aldrich EO # 0.0 103/ul Normal 0.0-0.7 [facility] Comment on above: Performed By: #### C BC ####[facility] [address] [place] [address]Dr. Wyatt Aldrich Eosinophils/100 WBC (Bld) 0.2 % Critically low 0.9-7.0 [facility] Comment on above: Performed By: #### C BC ####[facility] [address] [place] [address]Dr. Wyatt Aldrich Erythrocyte distribution width (RBC) [Ratio] 12.3 % Normal 11.0-15.0 [facility] Comment on above: Performed By: #### C BC ####[facility] [address] [place] [address]Dr. Wyatt Aldrich Hematocrit (Bld) [Volume fraction] 45.9 % Normal 42.0-54.0 [facility] Comment on above: Performed By: #### C BC ####[facility] [address] [place], [place] [address]Dr. Wyatt Aldrich Hemoglobin (Bld) [Mass/Vol] 15.2 g/dL Normal 14.0-18.0 [facility] Comment on above: Performed By: #### C BC ####[facility] [address] [place] [address]Dr. Wyatt Aldrich IG # 0.09 10e3/ul Critically high 0.00-0.03 [facility] Comment on above: Performed By: #### C BC ####[facility] [address] [place] [address]Dr. Wyatt Aldrich IG % 0.4 % Normal 0.0-0.5 [facility] Comment on above: Performed By: #### C BC ####[facility] [address] [place] [id number]. Wyatt Aldrich LYMPH # 1.1 103/ul Critically low 1.2-3.8 [facility] Comment on above: Performed By: #### C BC ####[facility] [address] [place], [place] [address]Dr. Wyatt Aldrich Lymphocytes/100 WBC (Bld) 5.1 % Critically low 20.5-60.0 [facility] Comment on above: Performed By: #### C BC ####[facility] [address] [place] [address]Dr. Wyatt Aldrich MANUAL DIFF REQ NO Normal [facility] Comment on above: Performed By: #### C BC ####[facility] [address] [place] [address]Dr. Wyatt Aldrich MCH (RBC) [Entitic mass] 30.2 pg Normal 25.9-34.0 [facility] Comment on above: Performed By: #### C BC ####[facility] [address] [place], [place] [address]Dr. Wyatt Aldrich MCHC (RBC) [Mass/Vol] 33.1 g/dL Normal 29.9-35.2 [facility] Comment on above: Performed By: #### C BC ####[facility] [address] [place], [place] [address]Dr. Jossielalo Aldrich MCV (RBC) [Entitic vol] 91.3 fL Normal 80.0-94.0 [facility] Comment on above: Performed By: #### C BC ####[facility] [address] [place], [place] [address]Dr. Wyatt Aldrich MONO # 1.4 103/ul Critically high 0.3-0.8 [facility] Comment on above: Performed By: #### C BC ####[facility] [address] [place], [place] [address]Dr. Wyatt Aldrich Monocytes/100 WBC (Bld) 6.7 % Normal 1.7-12.0 [facility] Comment on above: Performed By: #### C BC ####[facility] [address] [place], [place] [address]Dr. Jossielalo Aldrich NEUT # 18.5 103/ul Critically high 1.4-6.5 [facility] Comment on above: Performed By: #### C BC ####[facility] [address] [place], [place] [address]Dr. Wyatt Aldrich Neutrophils/100 WBC (Bld) 87.4 % Critically high 43.0-75.0 [facility] Comment on above: Performed By: #### C BC ####[facility] [address] [place], [place] [address]Vy. Wyatt Aldrich Platelet mean volume (Bld) [Entitic vol] 9.3 fL Critically low 9.5-13.5 [facility] Comment on above: Performed By: #### C BC ####[facility] [address] [place], [place] [address]Qw. Wyatt Aldrich PLT 303 103/ul Normal 150-450 [facility] Comment on above: Performed By: #### C BC ####[facility] [address] [place], [place] [address]Kw. Wyatt Aldrich RBC 5.03 106/ul Normal 4.70-6.10 [facility] Comment on above: Performed By: #### C BC ####[facility] [address] [place], [place] [address]Jc. Wyatt Aldrich WBC 21.2 103/ul Critically high 4.0-11.0 [facility] Comment on above: Performed By: #### C BC ####[facility] [address] [place], [place] [address] CT ABD/PELVIS WO CONon 05-29 [...] BOO GUZMAN Date: 2022-05-29 17:32 Normal [facility] ER URINE PROFILEon 2 Bilirubin Ql (U) Negative Normal NEGATIVE [facility] Comment on above: Performed By: #### U MICRO, ERUR #### [facility] [address] [place] [address] [address] Wyatt Aldrich Clarity (U) CLEAR Normal CLEAR [facility] Comment on above: Performed By: #### U MICRO, ERUR #### [facility] [address] [place] [address] [address] Wyatt Aldrich Color (U) LT. YELLOW Normal YELLOW [facility] Comment on above: Performed By: #### U MICRO, ERUR #### [facility] [address] [place] [address] Dr. Wyatt Aldrich ERUAHD A micrscopic examination will be performed if indicated. Normal [facility] Comment on above: Performed By: #### U MICRO, ERUR #### [facility] [address] [place] [address] [address] Wyatt Aldrich Glucose Ql (U) Negative Normal NEGATIVE [facility] Comment on above: Performed By: #### U MICRO, ERUR #### [facility] [address] [place] [address] [address] Wyatt Aldrich Hemoglobin Ql (U) TRACE-INTACT Abnormal NEGATIVE [facility] Comment on above: Performed By: #### U MICRO, ERUR #### [facility] [address] [place] [address] [address] Wyatt Aldrich Ketones Ql (U) Negative Normal NEGATIVE [facility] Comment on above: Performed By: #### U MICRO, ERUR #### [facility] [address] [place] [address] Dr. Wyatt Aldrich LEUKOCYTES Negative Normal NEGATIVE [facility] Comment on above: Performed By: #### U MICRO, ERUR #### [facility] [address] [place] [address] [address] Wyatt Aldrich Nitrite Ql (U) Negative Normal NEGATIVE [facility] Comment on above: Performed By: #### U MICRO, ERUR #### [facility] [address] [place] [address] Dr. Wyatt Aldrich pH (U) 7.0 [pH] Normal 5-9 [facility] Comment on above: Performed By: #### U MICRO, ERUR #### [facility] [address] [place] [address] Dr. Wyatt Aldrich SPEC GRAVITY 1.020 Normal 1.005-<=1.025 [facility] Comment on above: Performed By: #### U MICRO, ERUR #### [facility] [address] [place] [address] Dr. Wyatt Aldrich UA PROTEIN Negative Normal NEGATIVE/ TRACE [facility] Comment on above: Performed By: #### U MICRO, ERUR #### [facility] [address] [place] [address] Dr. Wyatt Aldrich UR MICRO IND INDICATED Normal [facility] Comment on above: Performed By: #### U MICRO, ERUR #### [facility] [address] [place] [address] Dr. Wyatt Aldrich Urobilinogen Qn (U) 0.2 {Sharon'U}/dL Normal 0.2 - 1. 0 [facility] Comment on above: Performed By: #### U MICRO, ERUR #### [facility] [address] [place] [address] Dr. Wyatt Aldrich PROF 14(COMP METB)on 022 Albumin [Mass/Vol] 3.9 g/dL Normal 3.4-5.0 [facility] Comment on above: Performed By: #### C MP #### [facility] [address] [place] [address] Dr. Wyatt Aldrich Albumin/Globulin [Mass ratio] 1.1 {ratio} Normal [facility] Comment on above: Performed By: #### C MP #### [facility] [address] [place] [address] Dr. Wyatt Aldrich ALP [Catalytic activity/Vol] 70 U/L Normal 46-116 [facility] Comment on above: Performed By: #### C MP #### [facility] [address] [place] [address] [address] Wyatt Aldrich ALT [Catalytic activity/Vol] 38 U/L Normal 16-63 [facility] Comment on above: Performed By: #### C MP #### [facility] [address] [place] [address] [address] Wyatt Aldrich Anion gap [Moles/Vol] 12.6 mmol/L Normal [facility] Comment on above: Performed By: #### C MP #### [facility] [address] [place] [address] [address] Wyatt Aldrich AST [Catalytic activity/Vol] 20 U/L Normal 15-37 [facility] Comment on above: Performed By: #### C MP #### [facility] [address] [place] [address] Dr. Wyatt Aldrich Bilirubin [Mass/Vol] 0.6 mg/dL Normal 0.2-1.0 [facility] Comment on above: Performed By: #### C MP #### [facility] [address] [place] [address] [address] Wyatt Aldrich Calcium [Mass/Vol] 8.7 mg/dL Normal 8.5-10.1 [facility] Comment on above: Performed By: #### C MP #### [facility] [address] [place] [address] [address] Wyatt Aldrich Chloride [Moles/Vol] 95 mmol/L Critically low 98-107 [facility] Comment on above: Performed By: #### C MP #### [facility] [address] [place] [address] [address] Wyatt Aldrich CO2 [Moles/Vol] 29.9 mmol/L Normal 21.0-32.0 [facility] Comment on above: Performed By: #### C MP #### [facility] [address] [place] [address] [address] Wyatt Aldrich Creatinine [Mass/Vol] 1.04 mg/dL Normal 0.70-1.30 [facility] Comment on above: Performed By: #### C MP #### [facility] [address] [place] [address] [address] Wyatt Aldrich EGFR-AF PORTUGUESE >60 Normal >=60 [facility] Comment on above: Performed By: #### C MP #### [facility] [address] [place] [address] [address] Wyatt Aldrich EGFR-NON AF PORTUGUESE >60 Normal >=60 [facility] Comment on above: Performed By: #### C MP #### [facility] [address] [place] [address] [address] Wyatt Aldrich Globulin (S) [Mass/Vol] 3.4 g/dL Normal [facility] Comment on above: Performed By: #### C MP #### [facility] [address] [place] [address] Dr. Wyatt Aldrich Glucose [Mass/Vol] 148 mg/dL Critically high 74-[address] [facility] Comment on above: Performed By: #### C MP #### [facility] [address] [place] [address] [address] Wyatt Aldrich Potassium [Moles/Vol] 4.5 mmol/L Normal 3.5-5.1 [facility] Comment on above: Performed By: #### C MP #### [facility] [address] [place] [address] Dr. Wyatt Aldrich Protein [Mass/Vol] 7.3 g/dL Normal 6.4-8.2 [facility] Comment on above: Performed By: #### C MP #### [facility] [address] [place] [address] [address] Wyatt Aldrich Sodium [Moles/Vol] 133 mmol/L Critically low 136-145 [facility] Comment on above: Performed By: #### C MP #### [facility] [address] [place] [address] [address] Wyatt Aldrich Urea nitrogen [Mass/Vol] 15.0 mg/dL Normal 7.0-18.0 [facility] Comment on above: Performed By: #### C MP #### [facility] [address] [place] [address] Dr. Wyatt Aldrich Urea nitrogen/Creatinine [Mass ratio] 14.4 mg/mg Normal [facility] Comment on above: Performed By: #### C MP #### [facility] [address] [place] [address] Dr. Wyatt Aldrich URINE MICROSCOPIC ONLYon BACTERIA NONE SEEN Normal NONE SEEN [facility] Comment on above: Performed By: #### U MICRO, ERUR #### [facility] [address] [place] [address] Dr. Wyatt Aldrich Bacteria identified Cx Nom (U) NOT INDICATED Normal [facility] Comment on above: Performed By: #### U MICRO, ERUR #### [facility] [address] [place] [address] Dr. Wyatt Aldrich CAST NONE SEEN Normal NONE SEEN [facility] Comment on above: Performed By: #### U MICRO, ERUR #### [facility] [address] [place] [address] Dr. Wyatt Aldrich Crystals LM Nom (Urine sed) NONE SEEN Normal NONE SEEN [facility] Comment on above: Performed By: #### U MICRO, ERUR #### [facility] [address] [place] [address] Dr. Wyatt Aldrich Epithelial cells LM Ql (Urine sed) NONE SEEN Normal NONE SEEN /RARE [facility] Comment on above: Performed By: #### U MICRO, ERUR #### [facility] [address] [place] [address] Dr. Wyatt Aldrich MUCOUS NONE SEEN Normal NONE SEEN [facility] Comment on above: Performed By: #### U MICRO, ERUR #### [facility] [address] [place] [address] Dr. Wyatt Aldrich RBC 2-5 Abnormal 0-2 [facility] Comment on above: Performed By: #### U MICRO, ERUR #### [facility] [address] [place] [address] Dr. Wyatt Aldrich WBC NONE SEEN Normal NONE SEEN [facility] Comment on above: Performed By: #### U MICRO, ERUR #### [facility] [address] [place], [place] [address] Dr. Wyatt Aldrich T4 LABCORPon 01-29-2022 T4 [Mass/Vol] 9.1 ug/dL Normal 4.5-12.0 [facility] Comment on above: Performed By: #### T 4LC ####[facility] [address] [place] [id number]. Wyatt Aldrich CBC AUTO DIFFon 01-28-2022 BASO # 0.1 103/ul Normal 0.0-0.1 [facility] Comment on above: Performed By: #### C BC ####[facility] [address] [place] [address]Dr. Wyatt Aldrich Basophils/100 WBC (Bld) 0.6 % Normal 0.2-2.0 [facility] Comment on above: Performed By: #### C BC ####[facility] [address] [place], [place] [address]Dr. Wyatt Aldrich EO # 0.2 103/ul Normal 0.0-0.7 [facility] Comment on above: Performed By: #### C BC ####[facility] [address] [place], [place] [address]Dr. Wyatt Aldrich Eosinophils/100 WBC (Bld) 2.4 % Normal 0.9-7.0 [facility] Comment on above: Performed By: #### C BC ####[facility] [address] [place], [place] [address]Dr. Wyatt Aldrich Erythrocyte distribution width (RBC) [Ratio] 12.5 % Normal 11.0-15.0 [facility] Comment on above: Performed By: #### C BC ####[facility] [address] [place], [place] [address]DrCullen Aldrich Hematocrit (Bld) [Volume fraction] 43.5 % Normal 42.0-54.0 [facility] Comment on above: Performed By: #### C BC ####[facility] [address] [place], [place] [address]DrCullen Aldrich Hemoglobin (Bld) [Mass/Vol] 14.4 g/dL Normal 14.0-18.0 [facility] Comment on above: Performed By: #### C BC ####[facility] [address] [place] [address]DrCullen Aldrich IG # 0.03 10e3/ul Normal 0.00-0.03 [facility] Comment on above: Performed By: #### C BC ####[facility] [address] [place] [address]DrCullen Aldrich IG % 0.4 % Normal 0.0-0.5 [facility] Comment on above: Performed By: #### C BC ####[facility] [address] [place], [place] [address]DrCullen Aldrich LYMPH # 2.1 103/ul Normal 1.2-3.8 [facility] Comment on above: Performed By: #### C BC ####[facility] [address] [place] [address]DrCullen Aldrich Lymphocytes/100 WBC (Bld) 24.8 % Normal 20.5-60.0 [facility] Comment on above: Performed By: #### C BC ####[facility] [address] [place] [address]DrCullen Aldrich MANUAL DIFF REQ NO Normal [facility] Comment on above: Performed By: #### C BC ####[facility] [address] [place] [address]DrCullen Aldrich MCH (RBC) [Entitic mass] 30.6 pg Normal 25.9-34.0 [facility] Comment on above: Performed By: #### C BC ####[facility] [address] [place] [id number] Aldrich MCHC (RBC) [Mass/Vol] 33.1 g/dL Normal 29.9-35.2 [facility] Comment on above: Performed By: #### C BC ####[facility] [address] [place] [address]DrCullen Aldrich MCV (RBC) [Entitic vol] 92.6 fL Normal 80.0-94.0 [facility] Comment on above: Performed By: #### C BC ####[facility] [address] [place] [address]Dr. Wyatt Aldrich MONO # 0.6 103/ul Normal 0.3-0.8 [facility] Comment on above: Performed By: #### C BC ####[facility] [address] [place] [address]Dr. Wyatt Aldrich Monocytes/100 WBC (Bld) 7.7 % Normal 1.7-12.0 [facility] Comment on above: Performed By: #### C BC ####[facility] [address] [place] [address]Dr. Wyatt Aldrich NEUT # 5.3 103/ul Normal 1.4-6.5 [facility] Comment on above: Performed By: #### C BC ####[facility] F[address] [place], [place] [address]Dr. Wyatt Aldrich Neutrophils/100 WBC (Bld) 64.1 % Normal 43.0-75.0 [facility] Comment on above: Performed By: #### C BC ####[facility] Kl[address] [place], [place] [address]Dr. Wyatt Aldrich Platelet mean volume (Bld) [Entitic vol] 9.4 fL Critically low 9.5-13.5 [facility] Comment on above: Performed By: #### C BC ####[facility] [address] [place], [place] [address]Dr. Wyatt Aldrich PLT 280 103/ul Normal 150-450 [facility] Comment on above: Performed By: #### C BC ####[facility] [address] [place], [place] [id number]. Wyatt Aldrich RBC 4.70 106/ul Normal 4.70-6.10 [facility] Comment on above: Performed By: #### C BC ####[facility] [address] [place] [address]Dr. Jossielalo Valdemar WBC 8.3 103/ul Normal 4.0-11.0 [facility] Comment on above: Performed By: #### C BC ####[facility] [address] [place] [id number]. Wyatt Aldrich FREE T3on 01-28-2022 FREE T3 2.70 pg/mlL Normal 2.18-3.98 [facility] Comment on above: Performed By: #### L IPID, CMP, TSH, FT3 ####[facility] [address] [place] [id number] Aldrich GLYCOHEMOGLOBIN A1Con 2021 ADA RECOMMENDATION SEE BELOW Normal [facility] Comment on above: Result Comment: ADA RECOMMENDED LIMIT 4.0 - 6.0 ADA THERAPEUTIC TARGET < 7.0 ACTION SUGGESTED > 7.0 Performed By: #### A 1C #### [facility] [address] [address] [address] Wyatt Aldrich Glucose [Mass/Vol] 143 mg/dL Normal [facility] Comment on above: Performed By: #### A 1C #### [facility] [address] [address] [address] Wyatt Aldrich HbA1c (Bld) [Mass fraction] 6.6 % Critically high 4.5-6.2 [facility] Comment on above: Performed By: #### A 1C #### [facility] [address] [address] [address] Wyatt Aldrich LIPID PROFILEon 01-28-2022 CHOL-HDL RATIO NORM SEE BELOW Normal [facility] Comment on above: Result Comment: 3.3 - 4.4 LOW RISK 4.4 - 7.1 AVERAGE RISK 7.1 - 11.0 MODERATE RISK >11.0 HIGH RISK Performed By: #### L IPID, CMP, TSH, FT3 ####[facility] [address] [place] [id number]. Wyatt Aldrich Cholesterol [Mass/Vol] 176 mg/dL Normal <=200 [facility] Comment on above: Performed By: #### L IPID, CMP, TSH, FT3 ####[facility] [address] [place] [address]Dr. Wyatt Aldrich Cholesterol in HDL [Mass/Vol] 35 mg/dL Critically low 40-60 [facility] Comment on above: Performed By: #### L IPID, CMP, TSH, FT3 ####[facility] [address] [place] [address]Dr. Wyatt Aldrich Cholesterol in LDL [Mass/Vol] 94.4 mg/dL Normal [facility] Comment on above: Performed By: #### L IPID, CMP, TSH, FT3 ####[facility] [address] [place] [id number]. Wyatt Aldrich Cholesterol.total/Cho lesterol in HDL [Mass ratio] 5.0 {ratio} Normal [facility] Comment on above: Performed By: #### L IPID, CMP, TSH, FT3 ####[facility] [address] [place] [address]Dr. Wyatt Aldrich HDL NORMAL > or = 60 mg/dl - LO W CARDIOVASCULAR RISK <40 mg/dl - HIGH CARDIOVASCULAR RISK Normal [facility] Comment on above: Performed By: #### L IPID, CMP, TSH, FT3 ####[facility] [address] [place] [address]Dr. Wyatt Aldrich LDL CALC NORMAL SEE BELOW Normal [facility] Comment on above: Result Comment: <100 mg/dl OPTIMAL 100 - 129 mg/dl NEAR OR ABOVE OPTIMAL 130 - 159 mg/dl BORDERLINE HIGH 160 - 189 mg/dl HIGH >190 mg/dl VERY HIGH Performed By: #### L IPID, CMP, TSH, FT3 ####[facility] [address] [place] [id number]. Wyatt Aldrich Triglyceride [Mass/Vol] 233 mg/dL Critically high <=150 [facility] Comment on above: Performed By: #### L IPID, CMP, TSH, FT3 ####[facility] [address] [place] [address]Dr. Wyatt Aldrich VLDL CALC 46.6 mg/dL Normal [facility] Comment on above: Performed By: #### L IPID, CMP, TSH, FT3 ####[facility] [address] [place] [address]Dr. Wyatt Aldrich OCC BLD IMMUNO SCREENon 01-03 OCCULT BLOOD Negative Normal NEGATIVE [facility] Comment on above: Performed By: #### O BSCRN #### [facility] [address] [address] [address] Wyatt Aldrich PROF 14(COMP METB)on 022 Albumin [Mass/Vol] 3.4 g/dL Normal 3.4-5.0 [facility] Comment on above: Performed By: #### L IPID, CMP, TSH, FT3 ####[facility] [address] [place] [address]Dr. Wyatt Aldrich Albumin/Globulin [Mass ratio] 1.0 {ratio} Normal [facility] Comment on above: Performed By: #### L IPID, CMP, TSH, FT3 ####[facility] [address] [place] [address]Dr. Wyatt Aldrich ALP [Catalytic activity/Vol] 65 U/L Normal 46-116 [facility] Comment on above: Performed By: #### L IPID, CMP, TSH, FT3 ####[facility] [address] [place] [address]Dr. Wyatt Aldrich ALT [Catalytic activity/Vol] 45 U/L Normal 16-63 [facility] Comment on above: Performed By: #### L IPID, CMP, TSH, FT3 ####[facility] [address] [place] [address]Dr. Wyatt Aldrich Anion gap [Moles/Vol] 9.7 mmol/L Normal [facility] Comment on above: Performed By: #### L IPID, CMP, TSH, FT3 ####[facility] [address] [place] [address]Dr. Wyatt Aldrich AST [Catalytic activity/Vol] 20 U/L Normal 15-37 [facility] Comment on above: Performed By: #### L IPID, CMP, TSH, FT3 ####[facility] [address] [place] [address]Dr. Wyatt Aldrich Bilirubin [Mass/Vol] 0.4 mg/dL Normal 0.2-1.0 [facility] Comment on above: Performed By: #### L IPID, CMP, TSH, FT3 ####[facility] [address] [place] [address]Dr. Wyatt Aldrich Calcium [Mass/Vol] 8.5 mg/dL Normal 8.5-10.1 [facility] Comment on above: Performed By: #### L IPID, CMP, TSH, FT3 ####[facility] [address] [place] [address]Dr. Wyatt Aldrich Chloride [Moles/Vol] 101 mmol/L Normal 98-107 [facility] Comment on above: Performed By: #### L IPID, CMP, TSH, FT3 ####[facility] [address] [place] [address]Dr. Wyatt Aldrich CO2 [Moles/Vol] 33.3 mmol/L Critically high 21.0-32.0 [facility] Comment on above: Performed By: #### L IPID, CMP, TSH, FT3 ####[facility] [address] [place] [address]Dr. Wyatt Aldrich Creatinine [Mass/Vol] 0.77 mg/dL Normal 0.70-1.30 [facility] Comment on above: Performed By: #### L IPID, CMP, TSH, FT3 ####[facility] [address] [place] [address]Dr. Wyatt Aldrich EGFR-AF PORTUGUESE >60 Normal >=60 [facility] Comment on above: Performed By: #### L IPID, CMP, TSH, FT3 ####[facility] [address] [place] [address]Dr. Wyatt Aldrich EGFR-NON AF PORTUGUESE >60 Normal >=60 [facility] Comment on above: Performed By: #### L IPID, CMP, TSH, FT3 ####[facility] [address] [place] [address]Dr. Wyatt Aldrich Globulin (S) [Mass/Vol] 3.3 g/dL Normal [facility] Comment on above: Performed By: #### L IPID, CMP, TSH, FT3 ####[facility] [address] [place] [address]Dr. Wyatt Aldrich Glucose [Mass/Vol] 137 mg/dL Critically high 74-[address] [facility] Comment on above: Performed By: #### L IPID, CMP, TSH, FT3 ####[facility] [address] [place] [address]Dr. Wyatt Aldrich Potassium [Moles/Vol] 4.0 mmol/L Normal 3.5-5.1 [facility] Comment on above: Performed By: #### L IPID, CMP, TSH, FT3 ####[facility] [address] [place] [address]Dr. Wyatt Aldrich Protein [Mass/Vol] 6.7 g/dL Normal 6.4-8.2 [facility] Comment on above: Performed By: #### L IPID, CMP, TSH, FT3 ####[facility] [address] [place], [place] [address]Dr. Wyatt Aldrich Sodium [Moles/Vol] 140 mmol/L Normal 136-145 [facility] Comment on above: Performed By: #### L IPID, CMP, TSH, FT3 ####[facility] [address] [place] [address]Dr. Wyatt Aldrich Urea nitrogen [Mass/Vol] 13.0 mg/dL Normal 7.0-18.0 [facility] Comment on above: Performed By: #### L IPID, CMP, TSH, FT3 ####[facility] [address] [place] [address]Dr. Wyatt Aldrich Urea nitrogen/Creatinine [Mass ratio] 16.9 mg/mg Normal [facility] Comment on above: Performed By: #### L IPID, CMP, TSH, FT3 ####[facility] [address] [place] [address]Dr. Wyatt Aldrich TSHon 01-28-2022 TSH 5.562 uIU/mL Critically high 0.358-3.740 [facility] Comment on above: Performed By: #### L IPID, CMP, TSH, FT3 ####[facility] [address] [place], [place] [address]Qr. Wyatt Aldrich TSH RANGE SEE BELOW Normal [facility] Comment on above: Result Comment: <0.3 4 UIU/ml HYPERTHYROID 0.34-5.60 UIU/ml EUTHYROID >5.60 UIU/ml HYPOTHYROID Performed By: #### L IPID, CMP, TSH, FT3 ####[facility] [address] [place], [place] [address]Kn. Wyatt Aldrich XR KUB 1 VIEWon 01-20-2022 [...] MANSOOR LIMA Date: 2022-01-20 14:12 Normal [facility] MRI LSPINE WO W CONon 2021 MRI [place] WO W CON EXAMINATION: MRI [place] WO W CON HISTORY: Prolapsed lumbar intervertebral [...] CHIU Date: 2021-10-04 11:23 Normal [facility] XR LSPINE MIN 4 VIEWSon 09-05 [...] SAVAGE Date: 2021-09-27 11:31 Normal [facility] Vital Signs Date Time Vital Sign Value Performing Clinician Jessi chowdhury 06-06-2023 08:48-0400 Blood Pressure Location Yovany GIOVANA [facility] 06-06-2023 08:48-0400 Diastolic blood pressure 66 mm[Hg] Yovany GIOVANA [facility] 06-06-2023 08:48-0400 Heart rate 83 /min Yovany COOK [facility] 06-06-2023 08:48-0400 Systolic blood pressure 142 mm[Hg] Yovany COOK [facility] 06-17-2022 09:14-0400 Blood Pressure Location Yovany COOK [facility] 06-17-2022 09:14-0400 Diastolic blood pressure 96 mm[Hg] Yovayn COOK [facility] 06-17-2022 09:14-0400 Heart rate 67 /min Yovany COOK [facility] 06-17-2022 09:14-0400 Systolic blood pressure 159 mm[Hg] Yovany COOK [facility] 06-10-2022 09:54-0400 Blood Pressure Location Yovany COOK [facility] 06-10-2022 09:54-0400 Diastolic blood pressure 102 mm[Hg] Yovany COOK [facility] 06-10-2022 09:54-0400 Heart rate 68 /min Yovany COOK [facility] 06-10-2022 09:54-0400 Systolic blood pressure 166 mm[Hg] Yovany COOK [facility] 01-21-2022 08:44-0400 Blood Pressure Location Yovany COOK [facility] 01-21-2022 08:44-0400 Diastolic blood pressure 87 mm[Hg] Yovany AKHTAR [facility] 01-21-2022 08:44-0400 Heart rate 72 /min Yovany AKHTAR [facility] 01-21-2022 08:44-0400 Systolic blood pressure 140 mm[Hg] Yovany AKHTAR [facility] Encounters Encounter Date Encounter Type Care [...] 06-06-2023 End: 06-07-2023 ambulatory Yovany AKHTAR Facility:[facility] Start: 06-06-2023 End: 06-06-2023 Patient encounter procedure Yovany Aquiles AKHTAR [facility] Start: 06-17-2022 End: 06-18-2022 ambulatory Yovanykourtney AKHTAR Facility:[facility] Start: 06-17-2022 End: 06-17-2022 Patient encounter procedure Yovany AKHTAR [facility] Start: 06-16-2022 End: 06-17-[address] NANCY FERNANDEZ Facility:[facility] Start: 06-10-2022 End: 06-11-2022 ambulatory Yovany AKHTAR Facility:[facility] Start: 06-10-2022 End: 06-10-2022 Patient encounter procedure Yovany AKHTAR [facility] Start: 06-09-2022 End: 06-10-[address] NANCY FERNANDEZ Facility:[facility] Start: 05-29-2022 End: 05-29-[address] NANCY FERNANDEZ Facility:[facility] Start: 05-11-2022 End: 05-11-2022 Patient encounter procedure Yovany AKHTAR [facility] Start: 02-03-2022 Encounter for genera l adult medical examination without abnormal findings DR NANCY FERNANDEZ [facility] Start: 01-28-2022 End: 01-29-[address] NANCY FERNANDEZ Facility:[facility] Start: 01-28-2022 End: 01-29-2022 Encounter for general adult medical examination without abnormal findings DR NANCY FERNANDEZ Facility:[facility] Start: 01-21-2022 End: 01-21-2022 Patient encounter procedure Yovany AKHTAR [facility] Start: 01-20-2022 End: 01-21-[address] [...] on above: Performed By: #### P SAD ####[place] [id number] [place] [address]DrCullen Aldrich Start: 08-13-2020 Extracorporeal shock wave lithotripsy of calculus of kidney Yovany AKHTAR Dental surgical procedure Gr poncho AKHTAR Entire gallbladder ( body structure) Yovany AKHTAR History of tonsillectomy Mitul AKHTAR Kidney stone (disorder) Gee AKHTAR l4 l5 disectomy Yovany AKHTAR carlo anal abcess Yovany Dowling Repair of anal fistula Marvel AKHTAR Immunizations Immunization Date Immunization Notes Care Provider [facility] 04-19-2022 zoster vaccine recombinant Yovany AKHTAR [facility] 02-12-2022 pneumococcal 20-maría nt conjugate vaccine Yovany AKHTAR [facility] 02-03-2022 zoster vaccine recombinant Yovany AKHTAR [facility] 12-08-2020 SARS-CoV-2 (COVID-19 ) mRNA-1273 vaccine Yovany AKHTAR [facility] 11-17-2020 SARS-CoV-2 (COVID-19 ) mRNA BNT-162b2 vax Yovany AKHTAR [facility] 11-11-2020 SARS-CoV-2 (COVID-19 ) mRNA-1273 vaccine Yovany AKHTAR [facility] Payers Date Payer Category Payer Unknown 2023 Unknown [id number] 1965 Unknown [id number] 2.16.84 [id number] 1965 Unknown [id number] 2.16.84 [id number] 1964 Unknown [id number] 2.16.84 0.1.152565.3.579.2.593 1964 Unknown [id number] 2.16.84 0.1.245429.3.579.2.593 1964 Unknown [id number] 2.16.84 0.1.038474.3.579.2.593 1964 Unknown [id number] 2.16.84 0.1.570116.3.579.2.593 1964 Unknown [id number] 2.16.84 0.1.437160.3.579.2.593 1964 Unknown [id number] 2.16.84 0.1.909220.3.579.2.593 1964 Unknown [id number] 2.16.8 40.1.858215.3.579.2.727 1964 Unknown [id number] 2.16.8 40.1.993162.3.579.2.727 1964 Unknown [id number] 2.16.8 40.1.800652.3.579.2.727 1964 Unknown [id number] 2.16.8 40.1.561206.3.579.2.727 1964 Unknown [id number] 2.16.84 0.1.620238.3.579.2.1259 1964 Unknown [id number] 2.16.84 0.1.663136.3.579.2.1259 1964 Unknown [id number] 2.16.84 0.1.119201.3.579.2.1259 1964 Unknown [id number] 2.16. 840.1.456105.3.579.2.196 1964 Unknown [id number] 2.16. 840.1.211186.3.579.2.196 1959 Private Health Insurance [id number] Social History Date Type Detail Facility Start: 01-15-2021 End: 06-06-2023 Tobacco smoking status Ex-smoker (finding) [facility] [employer] Tobacco smoking status Never [facility] [employer] Sex Assigned At Male [facility] [employer] Functional Status Date Assessment Result Facility 06-06-2023 Functional Status N/A [facility] 06-17-2022 Functional Status N/A [facility] 06-10-2022 Functional Status N/A [facility] Clinical Notes 01-21-2022 to 06-06-2023 Laboratory [...] include: ?8 oz (237 mL) of milk, mzhsigv-ywewyrcnfmwf-balsw milk, and calcium-fortifiedfruit juice. Calcium-fortified means that [...] ?Spinach (cooked), rhubarb, beets, sweet potatoes, and Dutch chard. ?Peanuts. ?Potato chips, yemeni fries, and baked potatoes with skin on. ?Nuts and nut products. ?Chocolate. If you regularly take a diuretic medicine, make sure to eat at least 1 or 2 servings of fruits or vegetables that are high in potassium each day. These include: ?Avocado. ?Banana. ?Stearns, prune, carrot, or tomato juice. ?Baked potato. [...] magnesium, fish oil, or vitamin B6. Take mqhg-nwc-mwpxqoy and prescription medicines only as told by [...] Casseroles. Pizza. Lasagna. Frozen meals. Potato chips. Belarusian fries. The items listed above may not [...] provider. Document Revised: 05/02/2022 Document Reviewed: 05/02/2022 [employer] Patient Education 2022 [employer] Follow Up Care 01/21/2022 09:03:45 With:GIOVANA CANTOR, Yovany Kwan, URL Address: [address] [address]- When:Within 1 Year(s) Comments:w/MT [facility] 06-17-2022 Hospital Discharge instructions Patient Education 06/17/2022 [...] include: ?Spinach. ?Rhubarb. ?Beets. ?Potato chips and yemeni fries. ?Nuts. If you regularly take a diuretic medicine, make sure to eat at least 1 2 fruits or vegetables high in potassium each day. These include: ?Avocado. ?Banana. ?Stearns, prune, carrot, or tomato juice. ?Baked potato. [...] Casseroles. Pizza. Lasagna. Frozen meals. Potato chips. Belarusian fries. Summary You can reduce your risk [...] 12/16/2011 Document Revised: 12/11/2019 Document Reviewed: 08/01/2017 [employer] Patient Education 2020 [employer]. Follow Up Care 06/10/2022 10:24:22 With:GIOVANA CANTOR, Yovany P, URL Address: [address] [place] [address]- When:6 months Comments:w/ [place] [facility] 06-10-2022 Hospital Discharge instructions Patient Education [...] include: ?Spinach. ?Rhubarb. ?Beets. ?Potato chips and yemeni fries. ?Nuts. If you regularly take a diuretic medicine, make sure to eat at least 1 2 fruits or vegetables high in potassium each day. These include: ?Avocado. ?Banana. ?Stearns, prune, carrot, or tomato juice. ?Baked potato. [...] Casseroles. Pizza. Lasagna. Frozen meals. Potato chips. Belarusian fries. Summary You can reduce your risk [...] 12/16/2011 Document Revised: 12/11/2019 Document Reviewed: 08/01/2017 [employer] Patient Education 2020 [employer]. Follow Up Care 05/30/2022 09:25:01 With:GIOVANA CANTOR, Yovany Kwan, URL Address: [facility] [place] [id number]- When:2 weeks Comments:MT [facility] 01-21-2022 Hospital Discharge instructions Patient Education [...] urethra. Follow these instructions at home: Take tdnz-rbk-tjljajk and prescription medicines only as told by [...] 08/21/2006 Document Revised: 07/16/2019 Document Reviewed: 09/25/2017 [employer] Patient Education 2020 [employer]. Follow Up Care 01/15/2021 08:45:48 With:Yovany AKHTAR MD, URL Address: [address] [place], [place] [id number]- When:01/21/2023 Comments:with PSA and x-ray [facility] Evaluation + Plan note Future Appointments Appointment Date:02/24/2023 08:00:00 AM Scheduled Provider:Yovany AKHTAR MD Location:[facility] Appointment Type:URO Office Visit [facility] Evaluation + Plan note Future Appointments Appointment Date:02/24/2023 08:00:00 AM Scheduled Provider:Yovany AKHTAR MD [facility] Appointment Type:URO Office Visit Future Scheduled TestsPT & PTT 04/20/22BUN 04/20/22Creatinine 04/20/22Electrolyte Panel 04/20/22CBC w/ Auto Diff 04/20/22 [facility] Evaluation + Plan note Future Appointments Appointment Date:06/17/2022 09:15:00 AM Scheduled Provider:Yovany AKHTAR MD Location:[facility] [place] Appointment Type:URO Office Visit Appointment Date:02/24/2023 08:00:00 AM Scheduled Provider:Yovany AKHTAR MD [facility] Appointment Type:URO Office Visit [facility] Evaluation + Plan note Future Appointments Appointment Date:06/11/2024 08:00:00 AM Scheduled Provider:Yovany AKHTAR MD Location:[facility] Appointment Type:URO Office Visit [facility] Hospital course Narrative No data available for this section [facility] Hospital Discharge instructions No data available for this section [facility] Progress note No data available for this section [facility] Summary Purpose Family History No Family [...] content) Personnel Name: Nancy Fernandez MD Address: [address] [place] [address] Personnel Name: Nancy Fernandez MD Address: Address: [address] [place] [address] Personnel Name: Nancy Fernandez MD Address: Address: [address] [place] [address] Personnel Name: Nancy Fernandez MD Address: Address: [address] [place] [address] (unrecognized sect ion and content) No Status Records FoundNo Status Records FoundNo Status Records FoundNo Status Records Found INFORMATION SOURCE (unrecogn ized section and content) DATE CREATED AUTHOR [facility]07[facility]2022 [facility] DATE CREATED AUTHOR AUTHOR'S ORGANIZ ATION 06/08/2023 [facility] DATE CREATED AUTHOR AUTHOR'S ORGANIZ ATION 12/26/2023 [facility] DATE CREATED AUTHOR AUTHOR'S ORGANIZ ATION 02/25/2024 [facility] FOR RECORDS PERTAINING TO PATIENTS WHO [...] BE BASED ON THE PRIMARY CLINICAL RECORDS. [facility]. provides no warranty or guarantee of the accuracy or completeness of information in this document.
[2024-06-10 08:01] VITALS: BP 135/78; PULSE 70; TEMP 36.9; O2SAT 96
[2024-06-10 08:03] LABS: Glucometer 136 mg/dL (74-106)
[2024-06-10 08:33] VITALS: BP 156/74; BP 163/79; PULSE 66; PULSE 68; O2SAT 94; O2SAT 95
--- NOTE | 2024-06-10 08:37 | P.ON_ITS ---
Date of procedure: 06/10/24 Pre-op diagnosis: Pain due to lumbar stenosis with neurogenic claudication Post-op diagnosis: same as pre-op Procedure: Procedure: Left L3-4, L4-5 transforaminal epidural steroid injection Medications: Bupivacaine 0.25% 2cc, lidocaine 2% 1cc, kenalog 80mg The patient was seen and examined in the preoperative holding area.? Informed consent was obtained and placed on the chart.? Patient was brought to the medical procedure unit and placed in the prone position where a timeout was completed verifying the correct patient, procedure site, position, and planned special equipment using sterile aseptic technique.? Under direct fluoroscopic visualization a 25-gauge Quincke tipped spinal needle was advanced to the designated neural foramen where contrast dye was injected to show adequate spread.? The needle was inserted at level left L3-4. There was no evidence of vascular or adverse uptake.? Epidural spread was appreciated.? The above- mentioned injectate was then placed in a 1.5 mL aliquot preceded by negative aspiration.? The needle was removed. The needle was inserted and the procedure repeated at level left L4-5.? The surgery site was covered.? Patient was taken to the postprocedural recovery area and monitored for an appropriate length of time before found suitable for discharge in the accompaniment of a responsible adult. Anesthesia: Local Surgeon: Heather Turcios Pathology: none sent Condition: stable Disposition: no change
[2024-06-10] MEDS: 0.9 % SODIUM CHLORIDE 10 ML SYRINGE - SALINE FLUSH INJ (08:38)
[2024-06-10] MEDS: IOHEXOL 240 MG/ML - 10 ML VIAL 24 MG INJ (08:39)
[2024-06-10] MEDS: BUPIVACAINE HCL 0.25% PF 25 MG/10 ML VIAL INJ (08:39)
[2024-06-10] MEDS: LIDOCAINE HCL 2% 400 MG/20 ML MDV INJ (08:39)
[2024-06-10] MEDS: DEXAMETHASONE SOD PHOS 10 MG/ML VIAL INJ (08:40)
== END 2024-06-10 08:42 | disposition home or self-care (01) ==
LOC: SURGOUT 07:26
PROVIDERS: PCP Family Medicine; Visit Provider Anesthesiology
DX: M48.062 Spinal stenosis, lumbar region with neurogenic claudication (principal)
CPT/HCPCS: 36415; 64483; 64484; 82948; J0665; J1100; Q9966

== ENCOUNTER 2024-07-03 08:19 | Outpatient (OUT) | payer BC, SELFPAY ==
--- NOTE | 2024-07-03 08:25 | P.CN_ITS ---
Consult Note: HPI Data of Consult Patient: known to practice within the last 3 years Consult date: 01/10/24 Requesting Physician: Shilpi Britton NP Primary Care Provider: Asim Fernandez MD Consult Narrative Reason for consult: chronic low back pain, left radiculopathy Narrative: Elvis Hernandez a pleasant 58 year old male presents for assessment of chronic low back pain with left sided radiculopathy. Chronic low back pain greater than 10 years, hx of lumbar discectomy in 2009. Patient recently completed greater than 6 weeks of PT/HEP without improvement, updated lumbar xray and MRI below consistent with degenerative changes as well as multilevel central and foraminal stenosis. Previously reported chronic low back pain and weakness of left leg, pain increasing to 2/10 with standing walking activity. Pain improved with forward flexion and rest. Patient denies loss of bowel/bladder, no falls. Failed to benefit from motrin, meloxicam, celebrex and tylenol. utilizes tramadol 50mg daily as needed for moderate to severe pain with benefit without side effect. Recently underwent left L3/4 L4/5 TFESI with >50% improvement ongoing cc:: CC: Shilpi Britton NP Review of Systems ROS Status of ROS 10 or more systems reviewed and unremark able except as noted in history and below Musculoskeletal Reports: back pain and joint pain PFSH PFSH Medical History Surgical procedures, elective ?Z41.9 - Encounter for procedure for purposes other than remedying health state, unspecified (ICD-10) Neuropathy ?G62.9 - Polyneuropathy, unspecified (ICD-10) Normal colonoscopy Renal lithiasis ?N20.0 - Calculus of kidney (ICD-10) HTN (hypertension) ?I10 - Essential (primary) hypertension (ICD-10) Hypothyroidism ?E03.9 - Hypothyroidism, unspecified (ICD-10) Diabetes ?E11.9 - Type 2 diabetes mellitus without complications (ICD-10) Traumatic brain injury ?S06.9XAA - Unspecified intracranial injury with loss of consciousness status unknown, initial encounter (ICD-10) MARGE (obstructive sleep apnea) ?G47.33 - Obstructive sleep apnea (adult) (pediatric) (ICD-10) COPD (chronic obstructive pulmonary disease) ?J44.9 - Chronic obstructive pulmonary disease, unspecified (ICD-10) 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 - Acute embolism and thrombosis of superior vena cava (ICD-10) Herniated lumbar intervertebral disc ?M51.26 - Other intervertebral disc displacement, lumbar region (ICD-10) Surgical History Pain management ?R52 - Pain, unspecified (ICD-10) History of cholecystectomy ?Z90.49 - Acquired absence of other specified parts of digestive tract (ICD- 10) History of tonsillectomy ?Z90.89 - Acquired absence of other organs (ICD-10) Hx of lithotripsy ?Z98.890 - Other specified postprocedural states (ICD-10) Hx of lumbar discectomy ?Z98.890 - Other specified postprocedural states (ICD-10) Meds Home Medications and Allergies Home Medications ?Medication ?Instructions ?Recorded ?Confirmed ?Type aspirin 81 mg capsule 81 mg PO DAILY 12/15/23 06/10/24 History carvedilol 25 mg tablet (Coreg) 37.5 mg PO Q12H 12/15/23 06/10/24 History glimepiride 2 mg tablet 2 mg PO DAILY 12/15/23 06/10/24 History hydralazine 50 mg tablet 50 mg PO TID 12/15/23 06/10/24 History hydrochlorothiazide 50 mg tablet 50 mg PO DAILY 12/15/23 06/10/24 History levothyroxine 125 mcg capsule 125 mcg PO DAILY 12/15/23 06/10/24 History metformin 500 mg tablet 500 mg PO BID 12/15/23 06/10/24 History multivitamin 1 tab PO DAILY 12/15/23 06/10/24 History olmesartan 40 mg tablet 40 mg PO DAILY 12/15/23 06/10/24 History pravastatin 20 mg tablet 20 mg PO DAILY 12/15/23 06/10/24 History tramadol 50 mg tablet 50 mg PO QID PRN pain 12/15/23 06/10/24 History Allergies Allergy/AdvReac Type Severity Reaction Status Date / Time No Known Drug Allergies Allergy Verified 06/10/24 07:57 Exam Constitutional Documenting provider has reviewed patient's vital signs: yes Common normals: no apparent distress, oriented x3, healthy appearing, alert and well nourished General appearance: cooperative HENMT Common normals: normocephalic, hearing grossly normal bilaterally and moist oral mucous membranes Head and scalp: normocephalic Eye Common normals: PERRL Pupil: PERRL Neck & C-Spine Common normals: full ROM General: normal visual inspection Chest Common normals: inspection of chest normal Respiratory Common normals: normal respiratory effort, no retractions and no use of accessory muscles Back & Pelvis Lumbar spine/lower back: ROM limited and straight leg raise negative bilaterally; no pain with ROM Sacroiliac joints: SI joints normal Other: altered sensation left L3,4,5 pattern, strength 4/5 in LLE 5/5 in RLE negative internal and external rotation of left hip, no tenderness of GTB left SIJ negative dave(patricks), gaenslens, thigh thrust, compression test Extremity Common normals: normal to inspection and full ROM Neuro Common normals: oriented x3, CN's II-XII intact bilaterally, moves all extremities, no focal motor deficits, no sensory deficits noted and deep tendon reflexes 2+ bilaterally Sensorium/orientation: alert Motor exam: strength 5/5 throughout and no movement abnormalities noted Psych Common normals: mental status grossly normal, thought process normal, cooperative, affect normal, speech normal and activity/motor behavior normal Speech: normal speech Thought process: normal thought process Results Additional Findings Additional findings: If on a controlled substance or opioids, I have checked an [place] report on this patient and there are no aberrancies noted in the prescribing history.??If on a controlled substance or opioid a drug screen was completed and reviewed within the last year, and if there has not been a drug screen completed we ordered one today to monitor higher risk, state monitored pain medication use. As part of providing excellent, safe, comprehensive care, the following was completed at our patient's visit: 1. A medication reconciliation and review to ensure accurate knowledge of current/active medications, including asking our patients to inform us about any [id number] medications or herbal remedies/nutritional toscano pplements/alternative remedies. 2. A review to specifically ensure our patients have had annual screening for screening for depression, screening for tobacco use, and screening for unhealthy alcohol use. For concerning screenings had a discussion with the patient, provided patient education, and recommended follow-up with primary care provider when appropriate. If patient noted with a risk of falling, they received education on strength, gait, and balance training to prevent future risk of falling. Assessment and Plan Assessment and Plan (1) Lumbar stenosis with neurogenic claudication: (2) Post laminectomy syndrome: (3) Myofascial pain: Plan start baclofen 10mg HS PRN pain/spasms continue HEP as tolerated f/u 3 months, sooner if needed
--- OUTSIDE RECORDS SUMMARY | 2024-07-03 08:27 | XMS_ITS | CCD ---
Author Organization [facility] Care Team Providers Care Presidential Support Specialist Name Role Phone Nancy Fernandez Primary Care Physician [phone] DR NANCY FERNANDEZ Primary Care Unavailable COOK, DR YOAVNY Kwan Consulting Unavailable COOK, DR YOVANY Kwan [...] Primary Care Unavailable TANISHA CHIU Consulting Unavailable MICHAEL KIM Attending Unavailable NANCY FERNANDEZ Referring Unavailable BALTA OTTO Attending Unavailable NANCY FERNANDEZ Referring Unavailable MICHAEL KIM Attending Unavailable NANCY FERNANDEZ Referring Unavailable Yovany AKHTAR Attending Unavailable Yovany AKHTAR Attending Unavailable Giedraitis MD, Heather Voss Attending Unavailable Karolina CANTOR, Heather Voss Attending Unavailable Karolina CANTOR, Heather Voss Attending Unavailable Allergies Allergy Classification Reported Allergen(s) Allergy Type Date of Onset Reaction(s) Facility (7 sources) Acetaminophen / HYDROcodone; Translations: [acetaminophen-hyd rocodone] Drug Allergy Hyperactive behavior (finding) [facility] Medications Current Medications Medication Drug Class(es) Dates Sig (Normalized) Sig (Original) Albuterol (6 sources) beta2-Adrenergic Agonist Start: 04-28-2017 take 2 [...] Status: Ordered carvedilol 25 mg oral tablet (6 sources) alpha-Adrenergic Esperanza, beta-Adrenergic Esperanza Start: 03-06-2019 Coreg 25 mg Tab 37.5 mg = 1.5 tab(s), Oral, BID, Prophylaxis Start Date: 03/06/19 Status: Ordered Daily Multiple Vitamins (6 sources) Start: 02-19-2019 take 1 tablet by [...] 0, Inflammation Start Date: 07/29/20 Status: Ordered glimepiride 2 mg oral tablet (1 source) Sulfonylurea Start: 06-11-2024 take 1 mg by mouth once daily glimepiride 2 mg Tab mg tab(s), Oral, Daily, Refills(s) 0 Start Date: 06/11/24 Status: Ordered hydrALAZINE hydrochloride 100 mg oral tablet (6 sources) Arteriolar Vasodilator Start: 04-28-2017 take 100 mg by mouth three times daily hydrALAZINE 100 mg, Oral, TID, Refills(s) 0, High blood pressure Start Date: 04/28/17 Status: Ordered hydroCHLOROthiazide 25 mg oral tablet (6 sources) Thiazide Diuretic Start: 02-19-2019 take 2 tablets by mouth once daily in the morning hydrochlorothiazide 25 mg oral tablet 50 mg = 2 tab(s), Oral, qAM, Refills(s) 0, High blood pressure Start Date: 02/19/19 Status: Ordered levothyroxine sodium 0.05 mg oral tablet (6 sources) l-Thyroxine Start: 07-29-2020 take 1 tablet [...] Ordered metFORMIN hydrochloride 500 mg oral tablet (6 sources) Biguanide Start: 05-08-2020 take 1 tablet by mouth twice daily metformin 500 mg ER Tab 500 mg = 1 tab(s), Oral, BID, Refills(s) 0, Blood glucose Start Date: 05/08/20 Status: Ordered olmesartan medoxomil 40 mg oral tablet (6 sources) Angiotensin 2 Receptor Esperanza Start: 03-06-2019 take 1 tablet by mouth at bedtime Benicar 40 mg Tab 40 mg = 1 tab(s), Oral, Bedtime, High blood pressure Start Date: 03/06/19 Status: Ordered pravastatin sodium 20 mg oral tablet (6 sources) HMG-CoA Reductase Inhibitor Start: 04-28-2017 take 20 mg by mouth once daily pravastatin 20 mg, Oral, Daily, Refills(s) 0, High cholesterol Start Date: 04/28/17 Status: Ordered tamsulosin hydrochloride 0.4 mg oral capsule (2 sources) alpha-Adrenergic Esperanza Start: 06-10-2022 take 1 capsule by mouth once daily tamsulosin 0.4 mg Cap 0.4 mg = 1 cap(s), Oral, Daily, # 30 cap(s), Refills(s) 2, Pharmacy: [id number], 188, cm, 06/10/22 9:57:00 EDT, Height/Length Dosing, 150, kg, 06/10/22 9:57:00 EDT, Weight Dosing Start Date: 06/10/22 Status: Ordered Ultram (6 sources) Opioid Agonist Start: 01-15-2021 take 1 [...] Onset: 05-29-20 Episodic Calculus of urinary tract (20 sources) Kidney stone; Translations: [Calculus of kidney] Onset: 01-22-20 Episodic Diabetes mellitus without complication (6 sources) Type 2 diabetes mellitus 02-19-2019 Chronic Esophageal disorders (6 sources) Gastroesophageal reflux disease 07-29-2020 Chronic Essential hypertension (8 sources) Hypertensive disorder; Translations: [Essential (primary) hypertension] Onset: 05-31-2007-29-2020 Chronic Genitourinary symptoms and ill-defined conditions (6 sources) Nocturia 07-10-2020 Episodic Hyperplasia of prostate (11 sources) Benign prostatic hypertrophy without outflow obstruction; Translations: [Benign prostatic hyperplasia without lower urinary tract symptoms] Onset: 01-22-20 Chronic Neoplasms of unspecified nature or uncertain behavior (6 sources) Neoplasm of uncertain behavior of skin 07-29-2020 Episodic Osteoarthritis (6 sources) Osteoarthritis 02-19-2019 Chronic Other aftercare (6 sources) Long-term current use of anticoagulant 02-19-2019 Episodic Other aftercare (1 source) 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; Translations: [[facility] CURRENT DRUG THERAPY] Onset: 05-31-20 Episodic Other aftercare (1 source) [facility] (current) use of aspirin; 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] Onset: 05-31-20 Episodic Other and unspecified benign neoplasm (6 sources) Dermatofibroma 02-19-2019 Episodic Other circulatory disease (6 sources) H/O: cardiovascular disease 04-28-2017 Episodic Comment on above: superficial left leg february 2017 Other lower respiratory disease (6 sources) History of chronic lung disease 04-28-2017 Episodic Other nutritional; endocrine; and metabolic disorders (6 sources) Body mass index 40+ - severely obese 07-10-2020 Chronic Other nutritional; endocrine; and metabolic disorders (1 source) Obesity, unspecified; Translations: [OBESITY UNSPECIFIED] Onset: 05-31-20 Chronic Other nutritional; endocrine; and metabolic disorders (1 source) Body mass index (BMI) 40.0-44.9, adult; Translations: [BODY MASS INDEX BMI 40.0-44.9 ADULT] Onset: 05-31-20 Chronic Other nutritional; endocrine; and metabolic disorders (6 sources) History of hypercholesterolemia 04-28-2017 Episodic Other screening for suspected conditions (not mental disorders or infectious disease) (6 sources) Raised prostate specific antigen 07-10-2020 Episodic Phlebitis; thrombophlebitis and thromboembolism (6 sources) Thrombophlebitis of lower extremities 07-29-2020 Episodic Residual codes; unclassified (6 sources) H/O: anticoagulant therapy 07-10-2020 Episodic Spondylosis; intervertebral disc disorders; other back problems (5 sources) Other intervertebral disc displacement, lumbar region; Translations: [Other intervertebral disc degeneration, lumbar region] Onset: 09-29-19 Chronic Thyroid disorders (6 sources) Hypothyroidism 07-29-2020 Chronic Urinary tract infections (1 source) Urinary tract infection, site not specified; Translations: [UTI SITE NOT SPECIFIED] Onset: 05-31-20 Episodic Past or Other Problems Problem Classification Problem Date Documented Da te Episodic/Chronic E Codes: Cut/pierceb (1 source) Contact with other sharp object(s), not elsewhere classified, initial encounter; Translations: [[facility] OTH SHRP OB NOT ELSW CLASS INI] Onset: 10-01-2021 Episodic Immunizations and screening for infectious disease (1 source) Encounter for immunization; Translations: [ENCOUNTER FOR IMMUNIZATION] Onset: 10-01-2021 Episodic Open wounds of extremities (4 sources) Laceration without foreign body of left wrist, initial encounter; Translations: [LACERATION W/O FB LT WRIST INITIAL] Onset: 09-29-2021 Episodic Results Test Name Value Interpretation Reference Range Facility Ambulatory Visit Summaryon 1 Ambulatory Visit Summary Ambulatory Visit Summary LIZ SHELBY :1965 Visit Date:06/11/2024 Ambulatory Visit Instructions Your Diagnosis Kidney stone BPH (benign prostatic hyperplasia) Hypertension Tests Performed XR Abdomen 1 View -- Results Pending -- Please visit your patient portal for your results or contact your primary care physician. Your Care Team Attending Physician - Yovany AKHTAR MD Primary Care Physician - Nancy Fernandez MD This Is Your Medications List Contact prescribing physician if questions or concerns albuterol carvedilol (Coreg 25 mg Tab) glimepiride (glimepiride 2 mg Tab) hydrALAZINE hydrochlorothiazide (hydrochlorothiazide 25 mg oral [...] anal abcess. Discharge Vitals Heart Rate (Peripheral) 71 Blood Pressure 190/111 Height 188 cm Height 74 in Weight 159.2 kg Weight 350.24 lb BMI 45.04 What to do next Scheduled Follow-Up Appointments Monday 8:00 AM EDT With: Yovany AKHTAR MD Where: [facility] [address] [place] [address]- You Need to Schedule the Following Appointments Follow Up with GIOVANA CANTOR, ESHA uDrham When: Where: [address] [facility] [address] [place] [address]- Medications What How Much When Instructions Unchanged albuterol 2 Puffs Inhalation Every 6 hours as needed for Wheezing Contact prescribing physician if questions or concerns Unchanged carvedilol (Coreg 25 mg Tab) 1.5 Tablets By Mouth 2 times a day Contact prescribing physician if questions or concerns Unchanged glimepiride (glimepiride 2 mg Tab) By Mouth Every day Contact prescribing physician if questions or concerns Unchanged hydrALAZINE 100 Milligram By Mouth 3 times a day Contact prescribing physician if questions or concerns Unchanged hydrochlorothiazide (hydrochlorothiazide 25 mg oral tablet) 2 Tablets By Mouth Once a day (in the morning) Contact prescribing physician if questions or concerns Unchanged levothyroxine (levothyroxine 50 mcg (0.05 mg) Tab) 1 Tablets By Mouth Every day Contact prescribing physician if questions or concerns Unchanged metformin (metformin 500 mg ER Tab) 1 Tablets By Mouth 2 times a day Contact prescribing physician if questions or concerns Unchanged multivitamin (Daily Multiple Vitamins) 1 Tablets By Mouth Every day Contact prescribing physician if questions or concerns Unchanged olmesartan (Benicar 40 mg Tab) 1 Tablets By Mouth At bedtime Contact prescribing physician if questions or concerns Unchanged pravastatin 20 Milligram By Mouth Every day Contact prescribing physician if questions or concerns Unchanged tramadol (Ultram) By Mouth Every 6 hours as needed for Pain/Fever Contact prescribing physician if questions or concerns Allergies Vicodin (Ineffective, Hyperactive) Problems Ongoing - Any problem that you are currently receiving treatment for. 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 GERD (gastroesophageal reflux disease) Neoplasm of uncertain behavior of skin Thrombophlebitis of lower extremities Patient Survey You may receive a survey via text or e-mail asking about your office visit. Please share your experience with us by completing your survey. We appreciate your feedback and thank you for choosing us for your care. Education Materials 24-Hour Urine Collection Why am I having this test? A 24-hour urine specimen is a lab test that requires you to collect all of your urine for an entire day. This is sometimes called a timed urine test. It can provide more information than a single urine sample. There are many reasons to have this test. Your health care provider may order the test to check for or monitor the following conditions: ? High blood pressure. ? Kidney disease. ? Kidney stones. ? Urinary tract infections. ? . ? Diabetes. How do I prepare for this test? ? You may be asked to follow a special diet during or before the collection period. Follow any instructions from your health care provider. If no special instructions are given, you may eat and drink normally. (more content not included)... [facility] Urology Office/Clinic Noteon 06-11-2024 Urology Office/Clinic Note Urology Office/Clinic Note Chief Complaint 1 Year follow up w/KUB & PS HPI Staff 1 yr w/ KUB. Previous Dx: BPH, kidney stone. *No urologic meds Most recent PSA 06/27/23 - 0.22, checked by PCP. Dysuria: No Incomplete bladder emptying: No Hematuria: No Frequency: No Urgency: No Nocturia: Occasionally Stream: No Leaking: Occasionally Post void dripping: Yes Wearing pads/ Depends: No Urge incontinence: No Stress incontinence: No Incontinence without Sensory Awareness: No Abdominal pain: No Flank pain: Occasionally on Lt Sexual complaints: Yes History of Present Illness Tests reviewed: UA, KUB, PSA I have reviewed the previous health record information and history for this patient from Dr. Akhtar. I have reviewed and verified the staff HPI to be accurate for this encounter. Review of Systems PHQ Score Initial Depression Screen Score: 0 SCORE ROS - Provider Constitutional: denies weight loss, [...] HPI. Physical Exam Vitals & Measurements HR: 71(Peripheral) BP: 190/111 HT: 74 in HT: 188 cm WT: 159.2 kg WT: 350.24 lb BMI: 45.04 General Appearance: alert, no distress, well nourished, well developed male. Assessment/Plan Pt here with his today. 1. Kidney stone (N20.0: Calculus of kidney) S/p R lithotripsy 05/26/22. KUB 06/16/22 - Neg. KUB 05/31/23 - Punctate R nephrolithiasis. KUB 06/07/24 [facility] - Neg. Personal review: possible bilateral punctate stones. Reviewed imaging with pt. Shares he has passed a 0.25 stone in the past after lithotripsy. Explained a better test to eval would be a CT scan however not recommended given higher cost and more radiation. UpH today 5.5. Did complete met workup years ago, no records in powerchart, likely in [employer]. Discussed repeating met workup since he cont to make stones. Pt elects to proceed with met workup. Shares he voided Ca in the past, used to take HCTZ. Follow up 1 yr with KUB and metabolic workup or sooner if needed. Pt understands and agrees with plan. 2. BPH (benign prostatic hyperplasia) (N40.0: Benign prostatic hyperplasia without lower urinary tract symptoms) PSA (ordered by PCP annually): 04/15/20 - 5.50 & 11.6% 07/07/20 - 0.50 & 16% 01/14/21 - 0.30 & 33% 06/27/23 - 0.22 UA today negative for blood and infection. IPSS 5 (3). No urinary complaints, stable. Shares PSA levels are stable. -Cont PSA monitoring with PCP. 3. Hypertension (I10: Essential (primary) hypertension) BP high today. Monitoring/managing with PCP. Stressed the importance of BP control to prevent CVA. Overall patient is doing well. No stone passage since last visit. He has had a the elevated blood pressure here in the office today and recently saw Dr. Fernandez. He has taken a blood pressure at home as well and it was fine yesterday. I asked him to follow-up with Dr. Awan in that regard. He still takes hydrochlorothiazide. KUB was read as negative at the [facility] but to my review there may be tiny fragments perhaps on both sides measuring 1 to 2 mm. It is a difficult read secondary to overlying bowel gas and stool. Follow-up 1 year with KUB. He does want a proceed with a 24-hour urine and metabolic workup. KUB ordered, blood work ordered, 24-hour urine ordered, urinalysis reviewed. Follow-up With When Contact Information Yovany AKHTAR MD, URL [address] [place] [id number]- Additional Instructions: 1 yr with KUB and metabolic workup Patient Education 24-Hour Urine Collection Dietary Guidelines to Help Prevent Kidney Stones I, Aurora Nix, personally scribed for Dr. Akhtar on 06/11/2024 08:30:20. . Documentation recorded by the scribe, Aurora Nix, accurately reflects the services(s) I performed and decisions made by me. Authenticated by Dr. Akhtar on 06/11/2024 08:34:57. Portions of this record may have been created with voice recognition artificial intelligence software, specifically [employer], [employer] and or [employer]. Substitutions may have occurred due to the inherent limitations of voice recognition and artificial intelligence software. Problem List/Past Medical History Ongoing BMI 40.0-44.9, adult BPH (benign prostatic hyperplasia) Chronic anticoagulation Dermatofibroma of left upper arm Diabetes mellitus type 2, noninsulin dependent Elevated PSA Hx of assisted use of blood thinners Kidney stone Nocturia Osteoarthritis Historical GERD (gastroesophag (more content not included)... [facility] Comment on above: Result Comment: Elec tronically Signed By: Yovany AKHTAR MD\.br\Date and Time Signed: 06/11/24 08:42 EDT\.br\Electronically Co-Signed By: Aurora Nix\.br\Date and Time Co-Signed: 06/11/24 08:30 EDT\.br\Electronically Co-Signed By: Aurora Nix\.br\Date and Time Co-Signed: 06/11/24 08:31 EDT XR KUB 1 VIEWon 06-16-2022 XR [...] by: MANSOOR LIMA Date: 2022-06-16 18:56 Normal [facility] XR KUB 1 VIEWon 06-09-2022 XR KUB [...] by: MANSOOR LIMA Date: 2022-06-09 17:41 Normal [facility] CBC AUTO DIFFon 05-29-2022 BASO # 0.1 103/ul Normal 0.0-0.1 [facility] Comment on above: Performed By: #### C BC ####[facility] [address] [place], [place] [address]Dr. Wyatt Aldrich Basophils/100 WBC (Bld) 0.2 % Normal 0.2-2.0 [facility] Comment on above: Performed By: #### C BC ####[facility] [address] [place] [address]Dr. Wyatt Aldrich EO # 0.0 103/ul Normal 0.0-0.7 [facility] Comment on above: Performed By: #### C BC ####[facility] [address] [place] [address]Dr. Wyatt Aldrich Eosinophils/100 WBC (Bld) 0.2 % Critically low 0.9-7.0 [facility] Comment on above: Performed By: #### C BC ####[facility] [address] [place] [address]Dr. Wyatt Aldrich Erythrocyte distribution width (RBC) [Ratio] 12.3 % Normal 11.0-15.0 [facility] Comment on above: Performed By: #### C BC ####[facility] [address] [place] [address]Dr. Wyatt Aldrich Hematocrit (Bld) [Volume fraction] 45.9 % Normal 42.0-54.0 [facility] Comment on above: Performed By: #### C BC ####[facility] [address] [place] [address]Dr. Jossielalo Aldrich Hemoglobin (Bld) [Mass/Vol] 15.2 g/dL Normal 14.0-18.0 [facility] Comment on above: Performed By: #### C BC ####[facility] [address] [place] [address]Dr. Wyatt Aldrich IG # 0.09 10e3/ul Critically high 0.00-0.03 [facility] Comment on above: Performed By: #### C BC ####[facility] [address] [place], [place] [address]Dr. Wyatt Aldrich IG % 0.4 % Normal 0.0-0.5 [facility] Comment on above: Performed By: #### C BC ####[facility] [address] [place], [place] [address]Dr. Wyatt Aldrich LYMPH # 1.1 103/ul Critically low 1.2-3.8 [facility] Comment on above: Performed By: #### C BC ####[facility] [address] [place], [place] [address]DrCullen Aldrich Lymphocytes/100 WBC (Bld) 5.1 % Critically low 20.5-60.0 [facility] Comment on above: Performed By: #### C BC ####[facility] [address] [place], [place] [address]Dr. Wyatt Aldrich MANUAL DIFF REQ NO Normal [facility] Comment on above: Performed By: #### C BC ####[facility] [address] [place], [place] [address]Dr. Wyatt Aldrich MCH (RBC) [Entitic mass] 30.2 pg Normal 25.9-34.0 [facility] Comment on above: Performed By: #### C BC ####[facility] [address] [place] [address]Dr. Wyatt Aldrich MCHC (RBC) [Mass/Vol] 33.1 g/dL Normal 29.9-35.2 [facility] Comment on above: Performed By: #### C BC ####[facility] [address] [place] [address]Dr. Wyatt Aldrich MCV (RBC) [Entitic vol] 91.3 fL Normal 80.0-94.0 [facility] Comment on above: Performed By: #### C BC ####[facility] [address] [place], [place] [address]DrCullen Aldrich MONO # 1.4 103/ul Critically high 0.3-0.8 [facility] Comment on above: Performed By: #### C BC ####[facility] [address] [place], [place] [address]Dr. Wyatt Aldrich Monocytes/100 WBC (Bld) 6.7 % Normal 1.7-12.0 [facility] Comment on above: Performed By: #### C BC ####[facility] [address] [place], [place] [address]Dr. Jossielalo Aldrich NEUT # 18.5 103/ul Critically high 1.4-6.5 [facility] Comment on above: Performed By: #### C BC ####[facility] [address] [place], [place] [address]DrCullen Aldrich Neutrophils/100 WBC (Bld) 87.4 % Critically high 43.0-75.0 [facility] Comment on above: Performed By: #### C BC ####[facility] [address] [place], [place] [address]DrCullen Aldrich Platelet mean volume (Bld) [Entitic vol] 9.3 fL Critically low 9.5-13.5 [facility] Comment on above: Performed By: #### C BC ####[facility] [address] [place], [place] [address]Jt. Wyatt Aldrich PLT 303 103/ul Normal 150-450 [facility] Comment on above: Performed By: #### C BC ####[facility] [address] [place], [place] [address]Hx. Wyatt Aldrich RBC 5.03 106/ul Normal 4.70-6.10 [facility] Comment on above: Performed By: #### C BC ####[facility] [address] [place], [place] [address]Ip. Wyatt Aldrich WBC 21.2 103/ul Critically high 4.0-11.0 [facility] Comment on above: Performed By: #### C BC ####[facility] [address] [place], [place] [address]By. Wy[address] Ald[address] CT ABD/PELVIS WO CONon 05-29 [...] right renal calculus. Bowel: No significant finding. Peritoneum/retroperitone um: No significant finding. Lymph nodes: No significant finding. Vessels: No significant finding. Body wall: No significant finding. Reproductive: No significant finding. Bones: No significant finding. IMPRESSION: 2 mm right distal ureteral calculus. Additional, 6 mm right UPJ calculus. Mild to moderate right hydronephrosis. Superimposed infection not excluded. Hepatic steatosis. Electronically authenticated by: BOO GUZMAN Date: 2022-05-29 17:32 Normal [facility] ER URINE PROFILEon Bilirubin Ql (U) Negative Normal NEGATIVE [facility] Comment on above: Performed By: #### U MICRO, ERUR #### [facility] [address] [place] [address] [address] Wyatt Aldrich Clarity (U) CLEAR Normal CLEAR [facility] Comment on above: Performed By: #### U MICRO, ERUR #### [facility] [address] [place] [address] [address] Wyatt Aldrich Color (U) LT. YELLOW Normal YELLOW [facility] Comment on above: Performed By: #### U MICRO, ERUR #### [facility] [address] [place] [address] [address] Wyatt Aldrich ERUAHD A micrscopic examina tion will be performed if indicated. Normal [facility] Comment on above: Performed By: #### U MICRO, ERUR #### [facility] [address] [place] [address] [address] Wyatt Aldrich Glucose Ql (U) Negative Normal NEGATIVE [facility] Comment on above: Performed By: #### U MICRO, ERUR #### [facility] [address] [place] [address] [address] Wyatt Aldrich Hemoglobin Ql (U) TRACE-INTACT Abnormal NEGATIVE [facility] Comment on above: Performed By: #### U MICRO, ERUR #### [facility] [address] [place] [address] [address] Wyatt Aldrich Ketones Ql (U) Negative Normal NEGATIVE [facility] Comment on above: Performed By: #### U MICRO, ERUR #### [facility] [address] [place] [address] [address] Wyatt Aldrich LEUKOCYTES Negative Normal NEGATIVE [facility] Comment on above: Performed By: #### U MICRO, ERUR #### [facility] [address] [place] [address] [address] Wyatt Aldrich Nitrite Ql (U) Negative Normal NEGATIVE [facility] Comment on above: Performed By: #### U MICRO, ERUR #### [facility] [address] [place] [address] [address] Wyatt Aldrich pH (U) 7.0 [pH] Normal 5-9 [facility] Comment on above: Performed By: #### U MICRO, ERUR #### [facility] [address] [place] [address] Dr. Wyatt Aldrich SPEC GRAVITY 1.020 Normal 1.005-<=1.025 [facility] Comment on above: Performed By: #### U MICRO, ERUR #### [facility] [address] [place] [address] Dr. Wyatt Aldrich UA PROTEIN Negative Normal NEGATIVE/ TRACE [facility] Comment on above: Performed By: #### U MICRO, ERUR #### [facility] [address] [address] [address] Wyatt Aldrich UR MICRO IND INDICATED Normal [facility] Comment on above: Performed By: #### U MICRO, ERUR #### [facility] [address] [place] [address] Dr. Wyatt Aldrich Urobilinogen Qn (U) 0.2 {Sharon'U}/dL Normal 0.2 - 1. 0 [facility] Comment on above: Performed By: #### U MICRO, ERUR #### [facility] [address] [place] [address] Dr. Wyatt Aldrich PROF 14(COMP METB)on 022 Albumin [Mass/Vol] 3.9 g/dL Normal 3.4-5.0 [facility] Comment on above: Performed By: #### C MP #### [facility] [address] [place] [address] Dr. Wyatt Aldrich Albumin/Globulin [Mass ratio] 1.1 {ratio} Normal [facility] Comment on above: Performed By: #### C MP #### [facility] [address] [place] [address] Dr. Wyatt Aldrich ALP [Catalytic activity/Vol] 70 U/L Normal 46-116 [facility] Comment on above: Performed By: #### C MP #### [facility] [address] [place] [address] Dr. Wyatt Aldrich ALT [Catalytic activity/Vol] 38 U/L Normal 16-63 [facility] Comment on above: Performed By: #### C MP #### [facility] [address] [address] [address] Wyatt Aldrich Anion gap [Moles/Vol] 12.6 mmol/L Normal [facility] Comment on above: Performed By: #### C MP #### [facility] [address] [address] [address] Wyatt Aldrich AST [Catalytic activity/Vol] 20 U/L Normal 15-37 [facility] Comment on above: Performed By: #### C MP #### [facility] [address] [address] [address] Wyatt Aldrich Bilirubin [Mass/Vol] 0.6 mg/dL Normal 0.2-1.0 [facility] Comment on above: Performed By: #### C MP #### [facility] [address] [place] [address] Dr. Wyatt Aldrich Calcium [Mass/Vol] 8.7 mg/dL Normal 8.5-10.1 [facility] Comment on above: Performed By: #### C MP #### [facility] [address] [address] [address] Wyatt Aldrich Chloride [Moles/Vol] 95 mmol/L Critically low 98-107 [facility] Comment on above: Performed By: #### C MP #### [facility] [address] [address] [address] Wyatt Aldrich CO2 [Moles/Vol] 29.9 mmol/L Normal 21.0-32.0 [facility] Comment on above: Performed By: #### C MP #### [facility] [address] [address] [address] Wyatt Aldrich Creatinine [Mass/Vol] 1.04 mg/dL Normal 0.70-1.30 [facility] Comment on above: Performed By: #### C MP #### [facility] [address] [address] [address] Wyatt Aldrich EGFR-AF PAPUA NEW GUINEAN >60 Normal >=60 [facility] Comment on above: Performed By: #### C MP #### [facility] [address] [place] [address] Dr. Wyatt Aldrich EGFR-NON AF PAPUA [place] GUINEAN >60 Normal >=60 [facility] Comment on above: Performed By: #### C MP #### [facility] [address] [place] [address] Dr. Wyatt Aldrich Globulin (S) [Mass/Vol] 3.4 g/dL Normal [facility] Comment on above: Performed By: #### C MP #### [facility] [address] [address] [address] Wyatt Aldrich Glucose [Mass/Vol] 148 mg/dL Critically high 74-106 [facility] Comment on above: Performed By: #### C MP #### [facility] [address] [place] [address] Dr. Wyatt Aldrich Potassium [Moles/Vol] 4.5 mmol/L Normal 3.5-5.1 [facility] Comment on above: Performed By: #### C MP #### [facility] [address] [place] [address] Dr. Wyatt Aldrich Protein [Mass/Vol] 7.3 g/dL Normal 6.4-8.2 [facility] Comment on above: Performed By: #### C MP #### [facility] [address] [place] [address] Dr. Wyatt Aldrich Sodium [Moles/Vol] 133 mmol/L Critically low 136-145 [facility] Comment on above: Performed By: #### C MP #### [facility] [address] [place] [address] Dr. Wyatt Aldrich Urea nitrogen [Mass/Vol] 15.0 mg/dL Normal 7.0-18.0 [facility] Comment on above: Performed By: #### C MP #### [facility] [address] [place] [address] Dr. Wyatt Aldrich Urea nitrogen/Creatinine [Mass ratio] 14.4 mg/mg Normal [facility] Comment on above: Performed By: #### C MP #### [facility] [address] [place] [address] Dr. Wyatt Aldrich URINE MICROSCOPIC ONLYon BACTERIA NONE SEEN Normal NONE SEEN [facility] Comment on above: Performed By: #### U MICRO, ERUR #### [facility] [address] [place] [address] Dr. Wyatt Aldrich Bacteria identified Cx Nom (U) NOT INDICATED Normal [facility] Comment on above: Performed By: #### U MICRO, ERUR #### [facility] [address] [place] [address] Dr. Wyatt Aldrich CAST NONE SEEN Normal NONE SEEN [facility] Comment on above: Performed By: #### U MICRO, ERUR #### [facility] [address] [place] [address] Dr. Wyatt Aldrich Crystals LM Nom (Urine sed) NONE SEEN Normal NONE SEEN [facility] Comment on above: Performed By: #### U MICRO, ERUR #### [facility] [address] [place] [address] Dr. Wyatt Aldrich Epithelial cells LM Ql (Urine sed) NONE SEEN Normal NONE SEEN /RARE [facility] Comment on above: Performed By: #### U MICRO, ERUR #### [facility] [address] [place] [address] Dr. Wyatt Aldrich MUCOUS NONE SEEN Normal NONE SEEN [facility] Comment on above: Performed By: #### U MICRO, ERUR #### [facility] [address] [place] [address] Dr. Wyatt Aldrich RBC 2-5 Abnormal 0-2 [facility] Comment on above: Performed By: #### U MICRO, ERUR #### [facility] [address] [place] [address] Dr. Wyatt Aldrich WBC NONE SEEN Normal NONE SEEN [facility] Comment on above: Performed By: #### U MICRO, ERUR #### [facility] [address] [place] [address] Dr. Wyatt Aldrich T4 LABCORPon 01-29-2022 T4 [Mass/Vol] 9.1 ug/dL Normal 4.5-12.0 [facility] Comment on above: Performed By: #### T 4LC ####[facility] [address] [id number]. Wyatt Valdemar CBC AUTO DIFFon 01-28-2022 BASO # 0.1 103/ul Normal 0.0-0.1 [facility] Comment on above: Performed By: #### C BC ####[facility] [address] [id number]. Wyatt Aldrich Basophils/100 WBC (Bld) 0.6 % Normal 0.2-2.0 [facility] Comment on above: Performed By: #### C BC ####[facility] [address] [place], [place] [address]Dr. Wyatt Aldrich EO # 0.2 103/ul Normal 0.0-0.7 [facility] Comment on above: Performed By: #### C BC ####[facility] [address] [place], [place] [address]Dr. Wyatt Aldrich Eosinophils/100 WBC (Bld) 2.4 % Normal 0.9-7.0 [facility] Comment on above: Performed By: #### C BC ####[facility] [address] [place], [place] [address]Dr. Jossielalo Aldrich Erythrocyte distribution width (RBC) [Ratio] 12.5 % Normal 11.0-15.0 [facility] Comment on above: Performed By: #### C BC ####[facility] [address] [place], [place] [address]Dr. Jossielalo Aldrich Hematocrit (Bld) [Volume fraction] 43.5 % Normal 42.0-54.0 [facility] Comment on above: Performed By: #### C BC ####[facility] [address] [place], [place] [address]Dr. Jossielalo Aldrich Hemoglobin (Bld) [Mass/Vol] 14.4 g/dL Normal 14.0-18.0 [facility] Comment on above: Performed By: #### C BC ####[facility] [address] [place], [place] [address]Dr. Wyatt Aldrich IG # 0.03 10e3/ul Normal 0.00-0.03 [facility] Comment on above: Performed By: #### C BC ####[facility] [address] [address]Dr. Wyatt Aldrich IG % 0.4 % Normal 0.0-0.5 [facility] Comment on above: Performed By: #### C BC ####[facility] [address] [address]Dr. Wyatt Aldrich LYMPH # 2.1 103/ul Normal 1.2-3.8 [facility] Comment on above: Performed By: #### C BC ####[facility] [address] [address]Dr. Wyatt Aldrich Lymphocytes/100 WBC (Bld) 24.8 % Normal 20.5-60.0 [facility] Comment on above: Performed By: #### C BC ####[facility] [address] [place], [place] [address]Dr. Wyatt Aldrich MANUAL DIFF REQ NO Normal [facility] Comment on above: Performed By: #### C BC ####[facility] [address] [address]Dr. Jossielalo Aldrich MCH (RBC) [Entitic mass] 30.6 pg Normal 25.9-34.0 [facility] Comment on above: Performed By: #### C BC ####[facility] [address] [address]Dr. Wyatt Aldrich MCHC (RBC) [Mass/Vol] 33.1 g/dL Normal 29.9-35.2 [facility] Comment on above: Performed By: #### C BC ####[facility] [address] [address]Dr. Wyatt Aldrich MCV (RBC) [Entitic vol] 92.6 fL Normal 80.0-94.0 [facility] Comment on above: Performed By: #### C BC ####[facility] [address] [place], [place] [address]Dr. Wyatt Aldrich MONO # 0.6 103/ul Normal 0.3-0.8 [facility] Comment on above: Performed By: #### C BC ####[facility] [address] [id number]. Wyatt Aldrich Monocytes/100 WBC (Bld) 7.7 % Normal 1.7-12.0 [facility] Comment on above: Performed By: #### C BC ####[facility] [address] [id number]. Wyatt Aldrich NEUT # 5.3 103/ul Normal 1.4-6.5 [facility] Comment on above: Performed By: #### C BC ####[facility] [address] [id number]. Wyatt Aldrich Neutrophils/100 WBC (Bld) 64.1 % Normal 43.0-75.0 [facility] Comment on above: Performed By: #### C BC ####[facility] [address] [address]Dr. Wyatt Aldrich Platelet mean volume (Bld) [Entitic vol] 9.4 fL Critically low 9.5-13.5 [facility] Comment on above: Performed By: #### C BC ####[facility] [address] [address]Dr. Wyatt Aldrich PLT 280 103/ul Normal 150-450 [facility] Comment on above: Performed By: #### C BC ####[facility] [address] [id number]. Wyatt Aldrich RBC 4.70 106/ul Normal 4.70-6.10 [facility] Comment on above: Performed By: #### C BC ####[facility] [address] [id number]. Wyatt Aldrich WBC 8.3 103/ul Normal 4.0-11.0 [facility] Comment on above: Performed By: #### C BC ####[facility] [address] [address]Dr. Wyatt Aldrich FREE T3on 01-28-2022 FREE T3 2.70 pg/mlL Normal 2.18-3.98 [facility] Comment on above: Performed By: #### L IPID, CMP, TSH, FT3 ####[facility] [address] [place], [place] [address]LfDr. Wyatt Aldrich GLYCOHEMOGLOBIN A1Con 2021 ADA RECOMMENDATION SEE BELOW Normal [facility] Comment on above: Result Comment: ADA RECOMMENDED LIMIT 4.0 - 6.0 ADA THERAPEUTIC TARGET < 7.0 ACTION SUGGESTED > 7.0 Performed By: #### A 1C #### [facility] [address] [address] [address] Wyatt Aldrich Glucose [Mass/Vol] 143 mg/dL Normal [facility] Comment on above: Performed By: #### A 1C #### [facility] [address] [address] [address] Wyatt Aldrich HbA1c (Bld) [Mass fraction] 6.6 % Critically high 4.5-6.2 [facility] Comment on above: Performed By: #### A 1C #### [facility] [address] [address] [address] Wyatt Aldrich LIPID PROFILEon 01-28-2022 CHOL-HDL RATIO NORM SEE BELOW Normal [facility] Comment on above: Result Comment: 3.3 - 4.4 LOW RISK 4.4 - 7.1 AVERAGE RISK 7.1 - 11.0 MODERATE RISK >11.0 HIGH RISK Performed By: #### L IPID, CMP, TSH, FT3 ####[facility] [address] [id number]. Wyatt Aldrich Cholesterol [Mass/Vol] 176 mg/dL Normal <=200 [facility] Comment on above: Performed By: #### L IPID, CMP, TSH, FT3 ####[facility] [address] [place], [place] [address]Dr. Wyatt Aldrich Cholesterol in HDL [Mass/Vol] 35 mg/dL Critically low 40-60 [facility] Comment on above: Performed By: #### L IPID, CMP, TSH, FT3 ####[facility] [address] [id number]. Wyatt Aldrich Cholesterol in LDL [Mass/Vol] 94.4 mg/dL Normal [facility] Comment on above: Performed By: #### L IPID, CMP, TSH, FT3 ####[facility] [address] [address]Dr. Wyatt Aldrich Cholesterol.total/Ch olesterol in HDL [Mass ratio] 5.0 {ratio} Normal [facility] Comment on above: Performed By: #### L IPID, CMP, TSH, FT3 ####[facility] [address] [address]DrCullen Aldrich HDL NORMAL > or = 60 mg/dl - LO W CARDIOVASCULAR RISK <40 mg/dl - HIGH CARDIOVASCULAR RISK Normal [facility] Comment on above: Performed By: #### L IPID, CMP, TSH, FT3 ####[facility] [address] [address]Dr. Wyatt Aldrich LDL CALC NORMAL SEE BELOW Normal [facility] Comment on above: Result Comment: <100 mg/dl OPTIMAL 100 - 129 mg/dl NEAR OR ABOVE OPTIMAL 130 - 159 mg/dl BORDERLINE HIGH 160 - 189 mg/dl HIGH >190 mg/dl VERY HIGH Performed By: #### L IPID, CMP, TSH, FT3 ####[facility] [address] [address]DrCullen Aldrich Triglyceride [Mass/Vol] 233 mg/dL Critically high <=150 [facility] Comment on above: Performed By: #### L IPID, CMP, TSH, FT3 ####[facility] [address] [phone] Aldrich VLDL CALC 46.6 mg/dL Normal [facility] Comment on above: Performed By: #### L IPID, CMP, TSH, FT3 ####[facility] [address] [id number] Aldrich OCC BLD IMMUNO SCREENon 01-03 OCCULT BLOOD Negative Normal NEGATIVE [facility] Comment on above: Performed By: #### O BSCRN #### [facility] [address] [address] [address] Wyatt Aldrich PROF 14(COMP METB)on 022 Albumin [Mass/Vol] 3.4 g/dL Normal 3.4-5.0 [facility] Comment on above: Performed By: #### L IPID, CMP, TSH, FT3 ####[facility] [address] [address]Dr. Wyatt Aldrich Albumin/Globulin [Mass ratio] 1.0 {ratio} Normal [facility] Comment on above: Performed By: #### L IPID, CMP, TSH, FT3 ####[facility] [address] [address]Dr. Wyatt Aldrich ALP [Catalytic activity/Vol] 65 U/L Normal 46-116 [facility] Comment on above: Performed By: #### L IPID, CMP, TSH, FT3 ####[facility] [address] [address]Dr. Wyatt Aldrich ALT [Catalytic activity/Vol] 45 U/L Normal 16-63 [facility] Comment on above: Performed By: #### L IPID, CMP, TSH, FT3 ####[facility] [address] [address]Dr. Wyatt Aldrich Anion gap [Moles/Vol] 9.7 mmol/L Normal [facility] Comment on above: Performed By: #### L IPID, CMP, TSH, FT3 ####[facility] [address] [address]Dr. Wyatt Aldrich AST [Catalytic activity/Vol] 20 U/L Normal 15-37 [facility] Comment on above: Performed By: #### L IPID, CMP, TSH, FT3 ####[facility] [address] [address]Dr. Wyatt Aldrich Bilirubin [Mass/Vol] 0.4 mg/dL Normal 0.2-1.0 [facility] Comment on above: Performed By: #### L IPID, CMP, TSH, FT3 ####[facility] [address] [address]Dr. Wyatt Aldrich Calcium [Mass/Vol] 8.5 mg/dL Normal 8.5-10.1 [facility] Comment on above: Performed By: #### L IPID, CMP, TSH, FT3 ####[facility] [address] [address]Dr. Wyatt Aldrich Chloride [Moles/Vol] 101 mmol/L Normal 98-107 [facility] Comment on above: Performed By: #### L IPID, CMP, TSH, FT3 ####[facility] [address] [address]Dr. Wyatt Aldrich CO2 [Moles/Vol] 33.3 mmol/L Critically high 21.0-32.0 [facility] Comment on above: Performed By: #### L IPID, CMP, TSH, FT3 ####[facility] [address] [address]Dr. Wyatt Aldrich Creatinine [Mass/Vol] 0.77 mg/dL Normal 0.70-1.30 [facility] Comment on above: Performed By: #### L IPID, CMP, TSH, FT3 ####[facility] [address] [address]Dr. Wyatt Aldrich EGFR-AF PAPUA NEW GUINEAN >60 Normal >=60 [facility] Comment on above: Performed By: #### L IPID, CMP, TSH, FT3 ####[facility] [address] [address]Dr. Wyatt Aldrich EGFR-NON AF PAPUA NEW GUINEAN >60 Normal >=60 [facility] Comment on above: Performed By: #### L IPID, CMP, TSH, FT3 ####[facility] [address] [address]Dr. Wyatt Aldrich Globulin (S) [Mass/Vol] 3.3 g/dL Normal [facility] Comment on above: Performed By: #### L IPID, CMP, TSH, FT3 ####[facility] [address] [address]Dr. Wyatt Aldrich Glucose [Mass/Vol] 137 mg/dL Critically high 74-106 [facility] Comment on above: Performed By: #### L IPID, CMP, TSH, FT3 ####[facility] [address] [address]Dr. Wyatt Aldrich Potassium [Moles/Vol] 4.0 mmol/L Normal 3.5-5.1 [facility] Comment on above: Performed By: #### L IPID, CMP, TSH, FT3 ####[facility] [address] [address]Dr. Wyatt Aldrich Protein [Mass/Vol] 6.7 g/dL Normal 6.4-8.[address] [facility] Comment on above: Performed By: #### L IPID, CMP, TSH, FT3 ####[facility] [address] [place], [place] [address]Dr. Wyatt Aldrich Sodium [Moles/Vol] 140 mmol/L Normal 136-[address] [facility] Comment on above: Performed By: #### L IPID, CMP, TSH, FT3 ####[facility] [address] [place], [place] [address]Dr. Wyatt Aldrich Urea nitrogen [Mass/Vol] 13.0 mg/dL Normal 7.0-18.0 [facility] Comment on above: Performed By: #### L IPID, CMP, TSH, FT3 ####[facility] [address] [place], [place] [address]Dr. Wyatt Aldrich Urea nitrogen/Creatinine [Mass ratio] 16.9 mg/mg Normal [facility] Comment on above: Performed By: #### L IPID, CMP, TSH, FT3 ####[facility] [address] [place], [place] [address]Dr. Wyatt Aldrich TSHon 01-28-2022 TSH 5.562 uIU/mL Critically high 0.358-3.[address] [facility] Comment on above: Performed By: #### L IPID, CMP, TSH, FT3 ####[facility] [address] [address]Dr. Wyatt Aldrich TSH RANGE SEE BELOW Normal [facility] Comment on above: Result Comment: <0.3 4 UIU/ml HYPERTHYROID 0.34-5.60 UIU/ml EUTHYROID >5.60 UIU/ml HYPOTHYROID Performed By: #### L IPID, CMP, TSH, FT3 ####[facility] [address] [place], [place] [address]KkCullen Aldrich XR KUB 1 VIEWon 01-20-2022 XR [...] MANSOOR LIMA Date: 2022-01-20 14:12 Normal [facility] MRI LSPINE WO W CONon 2021 MRI LSPINE WO W CON EXAMINATION: MRI LSP INE WO W CON HISTORY: Prolapsed lumbar intervertebral [...] enhancement. L5-S1: Left laminectomy. Bilateral foraminal disc protrusion/osteophytes, moderate facet arthropathy. No spinal canal stenosis. [...] levels of foraminal stenosis secondary to disc protrusion/osteophytosis described. Electronically authenticated by: TANISHA CHIU Date: 2021-10-04 11:23 Normal [facility] XR LSPINE MIN 4 VIEWSon 09-05 [...] by: SOLO SAVAGE Date: 2021-09-27 11:31 Normal [facility] Vital Signs Date Time Vital Sign Value Performing Clinician Jessi chowdhury 06-11-2024 08:19-0400 Blood Pressure Location Yovany GIOVANA [facility] 06-11-2024 08:19-0400 Diastolic blood pressure 111 mm[Hg] Yovany [employer] [facility] 06-11-2024 08:19-0400 Heart rate 71 /min Yovany GIOVANA [facility] 06-11-2024 08:19-0400 Systolic blood pressure 190 mm[Hg] [facility]ov[facility] 06-06-2023 08:48-0400 Blood Pressure Location Yovany COOK [facility] 06-06-2023 08:48-0400 Diastolic blood pressure 66 mm[Hg] Yovany COOK [facility] 06-06-2023 08:48-0400 Heart rate 83 /min Yovany COOK [facility] 06-06-2023 08:48-0400 Systolic blood pressure 142 mm[Hg] Yovany COOK [facility] 06-17-2022 09:14-0400 Blood Pressure Location Yovany COOK [facility] 06-17-2022 09:14-0400 Diastolic blood pressure 96 mm[Hg] Yovany COOK [facility] 06-17-2022 09:14-0400 Heart rate 67 /min Yovany COOK [facility] 06-17-2022 09:14-0400 Systolic blood pressure 159 mm[Hg] Yovany COOK [facility] 06-10-2022 09:54-0400 Blood Pressure Location Yovany COOK [facility] 06-10-2022 09:54-0400 Diastolic blood pressure 102 mm[Hg] Yovany COOK [facility] 06-10-2022 09:54-0400 Heart rate 68 /min Yovany COOK [facility] 06-10-2022 09:54-0400 Systolic blood pressure 166 mm[Hg] Yovany AKHTAR [facility] 01-21-2022 08:44-0400 Blood Pressure Location Yovany AKHTAR [facility] 01-21-2022 08:44-0400 Diastolic blood pressure 87 mm[Hg] Yovany AKHTAR [facility] 01-21-2022 08:44-0400 Heart rate 72 /min Yovany AKHTAR [facility] [employer] 01-21-2022 08:44-0400 Systolic blood pressure 140 mm[Hg] Yovany AKHTAR [facility] [employer] Encounters Encounter Date Encounter Type Care Provider Facility Start: 06-10-2025 ambulatory Yovany AKHTAR Facility :[facility] Start: 06-11-2024 End: 06-11-2024 ambulatory Yovany AKHTAR Facility:[facility] Start: 06-11-2024 End: 06-11-2024 Patient encounter procedure Yovany AKHTAR [facility] Start: 06-10-2024 End: 06-10-2024 ambulatory Heather Turcios MD Facility: [facility] Start: 02-19-2024 End: 02-19-2024 ambulatory Heather Turcios MD Facility:[facility] Start: 02-05-2024 End: 02-05-2024 ambulatory Heather Turcios MD Facility:[facility] Start: 12-25-2023 End: 12-25-2023 ambulatory MICAHEL T JULIO Not Available Start: 12-21-2023 End: 12-21-2023 ambulatory BALTA OTTO Not Available Start: 12-19-2023 End: 12-19-2023 ambulatory MICHAEL Boudreaux JULIO Not Available Start: 06-06-2023 End: 06-06-2023 Patient encounter procedure Yovany AKHTAR [facility] [place] Start: 06-17-2022 End: 06-17-2022 Patient encounter procedure Yovany AKHTAR [facility] Start: 06-16-2022 End: 06-17-[address] NANCY FERNANDEZ Facility:[facility] Start: 06-10-2022 End: 06-10-2022 Patient encounter procedure Yovany AKHTAR [facility] [place] Start: 06-09-2022 End: 06-10-[address] NANCY FERNANDEZ Facility:[facility] Start: 05-29-2022 End: 05-29-[address] NANCY FERNANDEZ Facility:[facility] Start: 05-11-2022 End: 05-11-2022 Patient encounter procedure Yovany AKHTAR [facility] Start: 02-03-2022 Encounter for genera l adult medical examination without abnormal findings DR NANCY FERNANDEZ [facility] Start: 01-28-2022 End: 01-29-[address] NANCY FERNANDEZ Facility:[facility] Start: 01-28-2022 End: 01-29-2022 Encounter for general adult medical examination without abnormal findings DR NANCY FERNANDEZ Facility:[facility] Start: 01-21-2022 End: 01-21-2022 Patient encounter procedure Yovany AKHTAR [facility] Start: 01-20-2022 End: 01-21-[address] NANCY [...] on above: Performed By: #### P SAD ####[place] [id number] Wyatt Aldrich Start: 08-13-2020 Extracorporeal shock wave lithotripsy of calculus of kidney Yovany AKHTAR Dental surgical procedure Gr poncho AKHTAR Entire gallbladder ( body structure) Yovany AKHTAR History of tonsillectomy Mitul AKHTAR Kidney stone (disorder) Gee AKHTAR l4 l5 disectomy Yovany AKHTAR carlo anal abcess Yovany ZIPPER JOINER Nitesh Repair of anal fistula Marvel ry GIOVANA Immunizations Immunization Date Immunization Notes Care Provider Mica biggs 04-19-2022 zoster vaccine recombinant Yovany AKHTAR [facility] 02-12-2022 pneumococcal 20-maría nt conjugate vaccine Yovany AKHTAR [facility] 02-03-2022 zoster vaccine recombinant Yovany AKHTAR [facility] 12-08-2020 SARS-CoV-2 (COVID-19 ) mRNA-1273 vaccine Yovany AKHTAR [facility] 11-17-2020 SARS-CoV-2 (COVID-19 ) mRNA BNT-162b2 vax Yovany AKHTAR [facility] 11-11-2020 SARS-CoV-2 (COVID-19 ) mRNA-1273 vaccine Yovany AKHTAR [facility] Payers Date Payer Category Payer Unknown 2023 Unknown [id number] 1965 Unknown [id number] .16.84 [id number] 1964 Unknown [id number] 2.16.84 [id number] 1964 Unknown [id number] .16.84 0.1.649440.3.579.2.593 1964 Unknown [id number] 2.16.84 0.1.674346.3.579.2.593 1964 Unknown [id number] 2.16.84 0.1.786231.3.579.2.593 1964 Unknown [id number] 2.16.84 0.1.615416.3.579.2.593 1964 Unknown [id number] 2.16.84 0.1.081623.3.579.2.593 1964 Unknown [id number] 2.16.84 0.1.885718.3.579.2.593 1964 Unknown [id number] 2.16.84 0.1.769866.3.579.2.1259 1964 Unknown [id number] 2.16.84 0.1.528250.3.579.2.1259 1964 Unknown [id number] 2.16.84 0.1.152525.3.579.2.1259 1964 Unknown [id number] 2.16.8 40.1.145840.3.579.2.727 1964 Unknown [id number] 2.16.8 40.1.114337.3.579.2.727 1964 Unknown [id number] 2.16. 840.1.180385.3.579.2.196 1964 Unknown [id number] 2.16. 840.1.448921.3.579.2.196 1964 Unknown [id number] 2.16. 840.1.862295.3.579.2.196 1959 Private Health Insurance [id number] Social History Date Type Detail Facility Start: 01-15-2021 End: 06-11-2024 Tobacco smoking status Ex-smoker (finding) [facility] Tobacco smoking status Never [facility] [employer] Sex Assigned At Male [facility] [employer] Functional Status Date Assessment Result Facility 06-11-2024 Functional Status N/A [facility] 06-06-2023 Functional Status N/A [facility] 06-17-2022 Functional Status N/A [facility] 06-10-2022 Functional Status N/A [facility] Clinical Notes 01-21-2022 to 06-11-2024 Laboratory Note Date & Type Note Facility 06-11-2024 Hospital Discharge instructions Patient Education 06/11/2024 08:29:42 24-Hour Urine Collection 24-Hour Urine Collection Why am I having this test? A 24-hour urine specimen is a lab test that requires you to collect all of your urine for an entire day. This is sometimes called a timed urine test. It can provide more information than a single urine sample. There are many reasons to have this test. Your health care provider may order the test to check for or monitor the following conditions: High blood pressure. Kidney disease. Kidney stones. Urinary tract infections. . Diabetes. How do I prepare for this test? You may be asked to follow a special diet during or before the collection period. Follow any instructions from your health care provider. If no special instructions are given, you may eat and drink normally. Take etls-pzu-vfszcaj and prescription medicines only as told by your health care provider. Let your health care provider know about any medicines that you are taking, including ddrw-ucq-rgarqab medicines, vitamins, herbs, and supplements. Choose a collection day when you can be at home or when you have a place to store the urine. All urine must be collected during the testing period. How do I do a 24-hour urine collection? When you get up in the morning, urinate in the toilet and flush. Write down the time. This will be your start time on the day of collection and your end time on the next morning. From the start time on, all of your urine should be kept in the collection jug that you received from the lab. If the jug that is given to you already has liquid in it, that is okay. Do not throw out the liquid or rinse out the jug. Urinate into a specimen container, such as a urinal or alcantara that sits over the toilet. Pour the urine from the container into the collection jug. Be careful not to spill any of the urine. Use the equipment provided by the lab. Do not let any toilet paper or stool (feces) get into the jug. This will contaminate the sample. Stop collecting your urine 24 hours after you started. Collect the last specimen as close as possible to the end of the 24-hour period. Keep the jug cool in an ice chest or keep it in the refrigerator during collection. When the 24-hour collection is complete, take the jug to the lab as soon as possible. Keep the jug cool in an ice chest while you are bringing it to the lab. What do the results mean? Talk with your health care provider about what your results mean. Questions to ask your health care provider Ask your health care provider, or the department that is doing the test: When will my results be ready? How will I get my results? What are my treatment options? What other tests do I need? What are my next steps? Summary A 24-hour urine specimen is a lab test that requires you to collect all of your urine for an entire day. When you get up in the morning, urinate in the toilet and flush. Write down the time. For the next 24 hours, collect all of your urine in the collection jug that you received from the lab. Keep the jug cool while collecting the urine and while bringing it back to the lab. Take the jug of urine back to the lab as soon as possible after the collection period has ended. This information is not intended to replace advice given to you by your health care provider. Make sure you discuss any questions you have with your health care provider. Document Revised: 02/25/2022 Document Reviewed: 02/25/2022 [employer] Patient Education 2023 [email or web address]. 06/11/2024 08:23:10 Dietary Guidelines to Help Prevent Kidney Stones Dietary Guidelines to Help Prevent Kidney Stones Kidney stones are deposits of minerals and salts that form inside your kidneys. Your risk of developing kidney stones may be greater depending on your diet, your lifestyle, the medicines you take, and whether you have certain medical conditions. Most people can lower their risks of developing kidney stones by following these dietary guidelines. Your dietitian may give you more specific [...] include: ?8 oz (237 mL) of milk, nlzprlh-ayctlkiwjizk-sldve milk, and calcium-fortifiedfruit juice. Calcium-fortified means that [...] table and allow each person to add their own salt to taste. Use vegetable protein, [...] fish, or seafood. ?When you prepare animal proteins, cut pieces into small portion sizes. For [...] ?Have two kinds of vegetables at dinner. You may be told to limit foods that are high in a substance called oxalate. These include: ?Spinach (cooked), rhubarb, beets, sweet potatoes, and Puerto Rican chard. ?Peanuts. ?Potato chips, mauritanian fries, and baked potatoes with skin on. ?Nuts and nut products. ?Chocolate. If you regularly take a diuretic medicine, make sure to eat at least 1 or 2 servings of fruits or vegetables that are high in potassium each day. These include: ?Avocado. ?Banana. ?[place], prune, carrot, or tomato juice. ?Baked potato. ?Cabbage. ?Beans and split peas. Lifestyle Drink enough fluid to keep your urine pale yellow. This is the most important thing you can do. Spread your fluid intake throughout the day. If you drink alcohol: ?Limit how much you have to: ?0 1 drink a day for women who are not . ?0 2 drinks a day for men. ?Know how much alcohol is in your drink. [...] of your kidney stones, you may be told: ?Do not take high-dose supplements of vitamin C (1,000 mg a day or more). ?To take a calcium supplement. ?To take a daily probiotic supplement. ?To take other supplements such as magnesium, fish oil, or vitamin B6. Take xifa-ejd-bnfuroh and prescription medicines only as told by [...] sausages, meat loaves, and hot dogs. Dairy Cheeses. Beverages Regular soft drinks. Regular vegetable juice. Seasonings and condiments Seasoning blends with salt. Salad dressings. Soy sauce. Ketchup. Barbecue sauce. Other foods Canned soups. Canned pasta sauce. Casseroles. Pizza. Lasagna. Frozen meals. Potato chips. Grenadian fries. The items listed above may not [...] with your health care provider. Document Revised: 12/01/2022 Document Reviewed: 12/01/2022 [employer] Patient Education 2023 [email or web address]. Follow Up Care 06/06/2023 09:30:15 With:GIOVANA CANTOR, Yovany P, URL Address: [address] [place], [place] [id number]- When: Unknown [facility] 06-11-2024 Note Patient Education Nephrology Dietary Guidelines to Help Prevent Kidney Stones Kidney stones are deposits of minerals and salts that form inside your kidneys. Your risk of developing kidney stones may be greater depending on your diet, your lifestyle, the medicines you take, and whether you have certain medical conditions. Most people can lower their risks of developing kidney stones by following these dietary guidelines. Your dietitian may give you more specific [...] ? 8 oz (237 mL) of milk, qewifxp-brjdhaaaiooi-hfbxe milk, and calcium-fortifiedfruit juice. Calcium-fortified means that [...] table and allow each person to add their own salt to taste. ? Use vegetable [...] or seafood. ? When you prepare animal proteins, cut pieces into small portion sizes. For [...] two kinds of vegetables at dinner. ? You may be told to limit foods that are high in a substance called oxalate. These include: ? Spinach (cooked), rhubarb, beets, sweet potatoes, and Puerto Rican chard. ? Peanuts. ? Potato chips, mauritanian fries, and baked potatoes with skin on. ? Nuts and nut products. ? Chocolate. ? If you regularly take a diuretic medicine, make sure to eat at least 1 or 2 servings of fruits or vegetables that are high in potassium each day. These include: ? Avocado. ? Banana. ? [place], prune, carrot, or tomato juice. ? Baked potato. ? Cabbage. ? Beans and split peas. Lifestyle ? Drink enough fluid to keep your urine pale yellow. This is the most important thing you can do. Spread your fluid intake throughout the day. ? If you drink alcohol: ? Limit how much you have to: ? 0?1 drink a day for women who are not . ? 0?2 drinks a day for men. ? Know how much alcohol is in your drink. [...] of your kidney stones, you may be told: ? Do not take high-dose supplements of vitamin C (1,000 mg a day or more). ? To take a calcium supplement. ? To take a daily probiotic supplement. ? To take other supplements such as magnesium, fish oil, or vitamin B6. ? Take tkpn-jyr-hxtwjlf and prescription medicines only as told by your health care provider. These include suppleme (more content not included)... [facility] 06-06-2023 Hospital Discharge instructions Patient Education 06/06/2023 [...] include: ?8 oz (237 mL) of milk, qxosnvu-bfordfwcqeyt-qopxa milk, and calcium-fortifiedfruit juice. Calcium-fortified means that [...] ?Spinach (cooked), rhubarb, beets, sweet potatoes, and Puerto Rican chard. ?Peanuts. ?Potato chips, mauritanian fries, and baked potatoes with skin on. ?Nuts and nut products. ?Chocolate. If you regularly take a diuretic medicine, make sure to eat at least 1 or 2 servings of fruits or vegetables that are high in potassium each day. These include: ?Avocado. ?Banana. ?[place], prune, carrot, or tomato juice. ?Baked potato. [...] magnesium, fish oil, or vitamin B6. Take vfwg-uwt-xrbnaza and prescription medicines only as told by [...] Casseroles. Pizza. Lasagna. Frozen meals. Potato chips. Grenadian fries. The items listed above may not [...] provider. Document Revised: 05/02/2022 Document Reviewed: 05/02/2022 [employer] Patient Education 2022 [email or web address]. Follow Up Care 01/21/2022 09:03:45 With:GIOVANA CANTOR, Yovany Kwan, URL Address: [facility] [employer] [place] [id number]- When:Within 1 Year(s) Comments:claire/MT [facility] 06-17-2022 Hospital Discharge instructions Patient Education 06/17/2022 [...] include: ?Spinach. ?Rhubarb. ?Beets. ?Potato chips and mauritanian fries. ?Nuts. If you regularly take a diuretic medicine, make sure to eat at least 1 2 fruits or vegetables high in potassium each day. These include: ?Avocado. ?Banana. ?[place], prune, carrot, or tomato juice. ?Baked potato. [...] Casseroles. Pizza. Lasagna. Frozen meals. Potato chips. Grenadian fries. Summary You can reduce your risk [...] 12/16/2011 Document Revised: 12/11/2019 Document Reviewed: 08/01/2017 [employer] Patient Education 2020 [email or web address]. Follow Up Care 06/10/2022 10:24:22 With:GIOVANA CANTOR, Yovany Kwan, URL Address: [facility] [employer] [address] [place] [id number] When:6 months Comments:w/ [place] [facility] 06-10-2022 Hospital Discharge instructions Patient [...] include: ?Spinach. ?Rhubarb. ?Beets. ?Potato chips and mauritanian fries. ?Nuts. If you regularly take a diuretic medicine, make sure to eat at least 1 2 fruits or vegetables high in potassium each day. These include: ?Avocado. ?Banana. ?[place], prune, carrot, or tomato juice. ?Baked potato. [...] Casseroles. Pizza. Lasagna. Frozen meals. Potato chips. Grenadian fries. Summary You can reduce your risk [...] 12/16/2011 Document Revised: 12/11/2019 Document Reviewed: 08/01/2017 [employer] Patient Education 2020 [employer] Follow Up Care 05/30/2022 09:25:01 With:GIOVANA CANTOR, Yovany Kwan, URL Address: [facility] [employer] [address] [place] [id number]- When:2 weeks Comments:MT [facility] 01-21-2022 Hospital Discharge instructions Patient [...] urethra. Follow these instructions at home: Take guig-sin-spyjdzn and prescription medicines only as told by [...] 08/21/2006 Document Revised: 07/16/2019 Document Reviewed: 09/25/2017 [employer] Patient Education 2020 [employer] Follow Up Care 01/15/2021 08:45:48 With:GIOVANA CANTOR, Yovany Kwan, URL Address: [address] [employer] [address] [place] [id number]- When:01/21/2023 Comments:with PSA and x-ray [facility] Evaluation + Plan note Future Appointments Appointment Date:02/24/2023 08:00:00 AM Scheduled Provider:Yovany AKHTAR MD Location:[facility] Appointment Type:URO Office Visit [facility] Evaluation + Plan note Future Appointments Appointment Date:02/24/2023 08:00:00 AM Scheduled Provider:Yovany AKHTAR MD Location:[facility] Appointment Type:URO Office Visit Future Scheduled TestsPT & PTT 04/20/22BUN 04/20/22Creatinine 04/20/22Electrolyte Panel 04/20/22CBC w/ Auto Diff 04/20/22 [facility] Evaluation + Plan note Future Appointments Appointment Date:06/17/2022 09:15:00 AM Scheduled Provider:Yovany AKHTAR MD Location:[facility] [place] [place] Appointment Type:URO Office Visit Appointment Date:02/24/2023 08:00:00 AM Scheduled Provider:Yovany AKHTAR MD Location:[facility] Appointment Type:URO Office Visit [facility] [place] Evaluation + Plan note Future Appointments Appointment Date:06/11/2024 08:00:00 AM Scheduled Provider:Yovany AKHTAR MD Location:[facility] Appointment Type:URO Office Visit [facility] [place] Evaluation + Plan note Future Appointments Appointment Date:06/10/2025 08:00:00 AM Scheduled Provider:Yovany AKHTAR MD Location:[facility] Appointment Type:URO Office Visit [facility] Hospital course Narrative No data available for this section [facility] Hospital Discharge instructions No data available for this section [facility] Progress note No data available for this section [facility] Summary Purpose Family History No Family History Records Found No data available for this section No Family History Records FoundNo Family History Records Found No data available for this section No Family History Records Found Advance Directives No Advanced Directives Records FoundNo Advanced Directives Records FoundNo Advanced Directives Records FoundNo Advanced Directives Records Found Additional Source Comments Care Team (unrecognized sect ion and content) Personnel Name: Nancy Fernandez MD Address: [address] [place] [address] Personnel Name: Nancy Fernandez MD Address: Address: [address] [place] [address] Personnel Name: Nancy Fernandez MD Address: Address: [address] [place] [address] Personnel Name: Nancy Fernandez MD Address: Address: [address] [place] [address] Personnel Name: Nancy Fernandez MD Address: Address: [address] [place] [address] (unrecognized sect ion and content) No Status Records FoundNo Status Records FoundNo Status Records FoundNo Status Records Found INFORMATION SOURCE (unrecogn ized section and content) DATE CREATED AUTHOR 07/07/2022 [facility] DATE CREATED AUTHOR AUTHOR'S ORGANIZ ATION 12/26/2023 [facility] dical [facility] DATE CREATED AUTHOR AUTHOR'S ORGANIZ ATION 06/12/2024 [facility] DATE CREATED AUTHOR AUTHOR'S ORGANIZ ATION 06/19/2024 [facility] FOR RECORDS PERTAINING TO PATIENTS WHO [...] BE BASED ON THE PRIMARY CLINICAL RECORDS. [facility] [employer] [facility]. provides no warranty or guarantee of the accuracy or completeness of information in this document.
== END 2024-07-03 08:20 | disposition home or self-care (01) ==
LOC: PM 08:19
PROVIDERS: PCP Family Medicine; Visit Provider Nurse Practitioner
DX: M48.062 Spinal stenosis, lumbar region with neurogenic claudication (principal); M79.18 Myalgia, other site
CPT/HCPCS: G0463

== ENCOUNTER 2024-07-08 09:10 | Outpatient (OUT) | payer BC, SELFPAY ==
--- OUTSIDE RECORDS SUMMARY | 2024-07-08 09:15 | XMS_ITS | CCD ---
Author Organization [facility] CliniSyga Care Team Providers Care Manager Pacu Name Role Phone Nancy Fernandez Primary Care Physician [phone] DR NANCY FERNANDEZ Primary Care Unavailable COOK, DR YOVANY Kwan Consulting Unavailable COOK, DR [...] TINSLEY Attending Unavailable BOO GUZMAN Consulting Unavailable VEVLET, DR CRUZ Consulting Unavailable VELVET, DR CRUZ [...] Allergy Hyperactive behavior (finding) [facility] Medications Current Medications Medication Drug Class(es) Dates [...] Daily, # 30 cap(s), Refills(s) 2, Pharmacy: [facility], 188, cm, 06/10/22 9:57:00 EDT, Height/Length Dosing, [...] 02-19-2019 Episodic Other aftercare (1 source) 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; Translations: [OTH [facility] CURRENT DRUG THERAPY] Onset: 05-31-20 Episodic Other aftercare (1 source) detention (current) use of aspirin; 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] Onset: 05-31-20 Episodic [...] object(s), not elsewhere classified, initial encounter; Translations: [[facility] OTH SHRP OB NOT ELSW CLASS INI] [...] Yovany AKHTAR MD Where: [facility] [address] [place] [address]- You Need to Schedule the Following Appointments Follow Up with GIOVANA CANTOR, ESHA [place] When: Where: [address] [facility] [address] [place] [address]- Medications What How Much When [...] noninsulin dependent Elevated PSA 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 (more content not included)... Normal [facility] Urology Office/Clinic Noteon 06-11-2024 Urology Office/Clinic [...] KUB was read as negative at the [facility] but to my review there may be [...] Contact Information Yovany AKHTAR MD, URL [address] [place] [id number]- Additional Instructions: 1 yr with KUB and [...] with voice recognition artificial intelligence software, specifically EndoDex, mGaadi and or Egomotion. Substitutions may have occurred due to the inherent limitations of voice recognition and artificial intelligence software. Problem List/Past Medical History Ongoing BMI 40.0-44.9, adult BPH (benign prostatic hyperplasia) Chronic anticoagulation Dermatofibroma of left upper arm Diabetes mellitus type 2, noninsulin dependent Elevated PSA Hx of fci use of blood thinners Kidney stone Nocturia Osteoarthritis Historical GERD (gastroesophag (more content not included)... Normal [facility] Comment on above: Result Comment: Elec tronically Signed By: Yovany AKHTAR MD\\.br\\Date and Time Signed: 06/11/24 08:42 EDT\\.br\\Electronically Co-Signed By: Aurora Nix\\.br\\Date and Time Co-Signed: 06/11/24 08:30 EDT\\.br\\Electronically Co-Signed By: Aurora Nix\\.br\\Date and Time Co-Signed: 06/11/24 08:31 EDT XR [...] MANSOOR LIMA Date: 2022-06-16 18:56 Normal [facility] XR KUB 1 VIEWon 06-09-2022 XR KUB [...] by: MANSOOR LIMA Date: 2022-06-09 17:41 Normal [facility] CBC AUTO DIFFon 05-29-2022 BASO # 0.1 103/ul Normal 0.0-0.1 [facility] Comment on above: Performed By: #### C BC ####[facility] [address] [place], [place] [address]Dr. Wyatt Aldrich Basophils/100 WBC (Bld) 0.2 % Normal 0.2-2.0 [facility] Comment on above: Performed By: #### C BC ####[facility] [address] [place] [address]Dr. Wyatt Aldrich EO # 0.0 103/ul Normal 0.0-0.7 [facility] Comment on above: Performed By: #### C BC ####[facility] [address] [place] [address]Dr. Wyatt Aldrich Eosinophils/100 WBC (Bld) 0.2 % Critically low 0.9-7.0 [facility] Comment on above: Performed By: #### C BC ####[facility] [address]so[address] [place] [address]Dr. Wyatt Aldrich Erythrocyte distribution width (RBC) [Ratio] 12.3 % Normal 11.0-15.0 [facility] Comment on above: Performed By: #### C BC ####[facility] [address] [place] [address]Dr. Wyatt Aldrich Hematocrit (Bld) [Volume fraction] 45.9 % Normal 42.0-54.0 [facility] Comment on above: Performed By: #### C BC ####[facility] [address] [place] [address]Dr. Jossielalo Aldrich Hemoglobin (Bld) [Mass/Vol] 15.2 g/dL Normal 14.0-18.0 [facility] Comment on above: Performed By: #### C BC ####[facility] [address]dsl[address] [place] [address]Dr. Wyatt Aldrich IG # 0.09 10e3/ul Critically high 0.00-0.03 [facility] Comment on above: Performed By: #### C BC ####[facility] [address] [place], [place] [address]Dr. Wyatt Aldrich IG % 0.4 % Normal 0.0-0.5 [facility] Comment on above: Performed By: #### C BC ####[facility] [address] [place], [place] [address]Dr. Wyatt Aldrich LYMPH # 1.1 103/ul Critically low 1.2-3.8 [facility] Comment on above: Performed By: #### C BC ####[facility] [address] [place], [place] [address]DrCullen Aldrich Lymphocytes/100 WBC (Bld) 5.1 % Critically low 20.5-60.0 [facility] Comment on above: Performed By: #### C BC ####[facility] [address] [place], [place] [address]Dr. Wyatt Aldrich MANUAL DIFF REQ NO Normal The [facility] Comment on above: Performed By: #### C BC ####[facility] [address] [place], [place] [address]Dr. Wyatt Aldrich MCH (RBC) [Entitic mass] 30.2 pg Normal 25.9-34.0 [facility] Comment on above: Performed By: #### C BC ####[facility] [address]zuzon[address] [place] [address]Dr. Wyatt Aldrich MCHC (RBC) [Mass/Vol] 33.1 g/dL Normal 29.9-35.2 [facility] Comment on above: Performed By: #### C BC ####[facility] [address]udah[address] [place] [address]Dr. Wyatt Aldrich MCV (RBC) [Entitic vol] 91.3 fL Normal 80.0-94.0 [facility] Comment on above: Performed By: #### C BC ####[facility] [address] [place], [place] [address]DrCullen Aldrich MONO # 1.4 103/ul Critically high 0.3-0.8 The [facility] Comment on above: Performed By: #### C BC ####[facility] [address] [place], [place] [address]Dr. Wyatt Aldrich Monocytes/100 WBC (Bld) 6.7 % Normal 1.7-12.0 [facility] Comment on above: Performed By: #### C BC ####[facility] S[address] [place], [place] [address]Dr. Jossielalo Aldrich NEUT # 18.5 103/ul Critically high 1.4-6.5 [facility] Comment on above: Performed By: #### C BC ####[facility] [address] [place], [place] [address]DrCullen Aldrich Neutrophils/100 WBC (Bld) 87.4 % Critically high 43.0-75.0 [facility] Comment on above: Performed By: #### C BC ####[facility] [address] [place], [place] [address]DrCullen Aldrich Platelet mean volume (Bld) [Entitic vol] 9.3 fL Critically low 9.5-13.5 [facility] Comment on above: Performed By: #### C BC ####[facility] [address] [place], [place] [address]Jn. Wyatt Aldrich PLT 303 103/ul Normal 150-450 [facility] Comment on above: Performed By: #### C BC ####[facility] [address] [place], [place] [address]Vo. Wyatt Aldrich RBC 5.03 106/ul Normal 4.70-6.10 [facility] Comment on above: Performed By: #### C BC ####[facility] [address] [place], [place] [address]Qk. Wyatt Aldrich WBC 21.2 103/ul Critically high 4.0-11.0 [facility] Comment on above: Performed By: #### C BC ####[facility] [address] [place], [place] [address]. Wyatt [address] CT ABD/PELVIS WO CONon 05-29 [...] BOO GUZMAN Date: 2022-05-29 17:32 Normal [facility] ER URINE PROFILEon Bilirubin Ql (U) Negative Normal NEGATIVE [facility] Comment on above: Performed By: #### U MICRO, ERUR #### [facility] [address] [place] [address] [address] Wyatt Aldrich Clarity (U) CLEAR Normal CLEAR [facility] Comment on above: Performed By: #### U MICRO, ERUR #### [facility] [address] [address] [address] Wyatt Aldrich Color (U) LT. YELLOW Normal YELLOW [facility] Comment on above: Performed By: #### U MICRO, ERUR #### [facility] [address] [address] [address] Wyatt Aldrich ERUAHD A micrscopic examina tion will be performed if indicated. Normal [facility] Comment on above: Performed By: #### U MICRO, ERUR #### [facility] [address] [place] [address] [address] Wyatt Aldrich Glucose Ql (U) Negative Normal NEGATIVE [facility] Comment on above: Performed By: #### U MICRO, ERUR #### [facility] [address] [place] [address] [address] Wyatt Aldrich Hemoglobin Ql (U) TRACE-INTACT Abnormal NEGATIVE [facility] Comment on above: Performed By: #### U MICRO, ERUR #### [facility] [address] [place] [address] [address] Wyatt Aldrich Ketones Ql (U) Negative Normal NEGATIVE [facility] Comment on above: Performed By: #### U MICRO, ERUR #### [facility] [address] [place] [address] [address] Wyatt Aldrich LEUKOCYTES Negative Normal NEGATIVE [facility] Comment on above: Performed By: #### U MICRO, ERUR #### [facility] [address] [place] [address] [address] Wyatt Aldrich Nitrite Ql (U) Negative Normal NEGATIVE [facility] Comment on above: Performed By: #### U MICRO, ERUR #### [facility] [address] [place] [address] [address] Wyatt Aldrich pH (U) 7.0 [pH] Normal 5-9 [facility] Comment on above: Performed By: #### U MICRO, ERUR #### [facility] [address] [place] [address] Dr. Wyatt Aldrich SPEC GRAVITY 1.020 Normal 1.005-<=1.025 [facility] Comment on above: Performed By: #### U MICRO, ERUR #### [facility] [address] [place] [address] Dr. Wyatt Aldrich UA PROTEIN Negative Normal NEGATIVE/ TRACE [facility] Comment on above: Performed By: #### U MICRO, ERUR #### [facility] [address] [place] [address] [address] Wyatt Aldrich UR MICRO IND INDICATED Normal [facility] Comment on above: Performed By: #### U MICRO, ERUR #### [facility] [address] [place] [address] Dr. Wyatt Aldrich Urobilinogen Qn (U) 0.2 {Sharon'U}/dL Normal 0.2 - 1. 0 [facility] Comment on above: Performed By: #### U MICRO, ERUR #### [facility] [address] [place] [address] Dr. Wyatt Aldrich PROF 14(COMP METB)on 022 Albumin [Mass/Vol] 3.9 g/dL Normal 3.4-5.0 [facility] Comment on above: Performed By: #### C MP #### [facility] [address] [place] [address] Dr. Wyatt Aldrich Albumin/Globulin [Mass ratio] 1.1 {ratio} Normal [facility] Comment on above: Performed By: #### C MP #### [facility] [address] [place] [address] Dr. Wyatt Aldrich ALP [Catalytic activity/Vol] 70 U/L Normal 46-116 [facility] Comment on above: Performed By: #### C MP #### [facility] [address] [place] [address] Dr. Wyatt Aldrich ALT [Catalytic activity/Vol] 38 U/L Normal 16-63 [facility] Comment on above: Performed By: #### C MP #### [facility] [address] [place] [address] [address] Wyatt Aldrich Anion gap [Moles/Vol] 12.6 mmol/L Normal [facility] Comment on above: Performed By: #### C MP #### [facility] [address] [place] [address] [address] Wyatt Aldrich AST [Catalytic activity/Vol] 20 U/L Normal 15-37 [facility] Comment on above: Performed By: #### C MP #### [facility] [address] [place] [address] [address] Wyatt Aldrich Bilirubin [Mass/Vol] 0.6 mg/dL Normal 0.2-1.0 [facility] Comment on above: Performed By: #### C MP #### [facility] [address] [place] [address] Dr. Wyatt Aldrich Calcium [Mass/Vol] 8.7 mg/dL Normal 8.5-10.1 [facility] Comment on above: Performed By: #### C MP #### [facility] [address] [place] [address] [address] Wyatt Aldrich Chloride [Moles/Vol] 95 mmol/L Critically low 98-107 [facility] Comment on above: Performed By: #### C MP #### [facility] [address] [place] [address] [address] Wyatt Aldrich CO2 [Moles/Vol] 29.9 mmol/L Normal 21.0-32.0 [facility] Comment on above: Performed By: #### C MP #### [facility] [address] [place] [address] [address] Wyatt Aldrich Creatinine [Mass/Vol] 1.04 mg/dL Normal 0.70-1.30 [facility] Comment on above: Performed By: #### C MP #### [facility] [address] [place] [address] [address] Wyatt Aldrich EGFR-AF [place] >60 Normal >=60 [facility] Comment on above: Performed By: #### C MP #### [facility] [address] [place] [address] Dr. Wyatt Aldrich EGFR-NON AF [place] >60 Normal >=60 [facility] Comment on above: Performed By: #### C MP #### [facility] [address] [place] [address] Dr. Wyatt Aldrich Globulin (S) [Mass/Vol] 3.4 g/dL Normal [facility] Comment on above: Performed By: #### C MP #### [facility] [address] [place] [address] [address] Wyatt Aldrich Glucose [Mass/Vol] 148 mg/dL Critically high 74-106 [facility] Comment on above: Performed By: #### C MP #### [facility] [address] [place] [address] Dr. Wyatt Aldrich Potassium [Moles/Vol] 4.5 mmol/L Normal 3.5-5.1 [facility] Comment on above: Performed By: #### C MP #### [facility] [address] [place] [address] Dr. Wyatt Aldrich Protein [Mass/Vol] 7.3 g/dL Normal 6.4-8.2 [facility] Comment on above: Performed By: #### C MP #### [facility] [address] [place] [address] Dr. Wyatt Aldrich Sodium [Moles/Vol] 133 mmol/L Critically low 136-145 [facility] Comment on above: Performed By: #### C MP #### [facility] [address] [place] [address] Dr. Wyatt Aldrich Urea nitrogen [Mass/Vol] 15.0 mg/dL Normal 7.0-18.0 [facility] Comment on above: Performed By: #### C MP #### [facility] [address] [place] [address] Dr. Wyatt Aldrich Urea nitrogen/Creatinine [Mass ratio] 14.4 mg/mg Normal [facility] Comment on above: Performed By: #### C MP #### [facility] [address] [place] [address] Dr. Wyatt Aldrich URINE MICROSCOPIC ONLYon BACTERIA NONE SEEN Normal NONE SEEN [facility] Comment on above: Performed By: #### U MICRO, ERUR #### [facility] [address] [place] [address] Dr. Wyatt Aldrich Bacteria identified Cx Nom (U) NOT INDICATED Normal [facility] Comment on above: Performed By: #### U MICRO, ERUR #### [facility] [address] [place] [address] Dr. Wyatt Aldrich CAST NONE SEEN Normal NONE SEEN [facility] Comment on above: Performed By: #### U MICRO, ERUR #### [facility] [address] [place] [address] Dr. Wyatt Alrdich Crystals LM Nom (Urine sed) NONE SEEN Normal NONE SEEN [facility] Comment on above: Performed By: #### U MICRO, ERUR #### [facility] [address] [place] [address] Dr. Wyatt Aldrich Epithelial cells LM Ql (Urine sed) NONE SEEN Normal NONE SEEN /RARE [facility] Comment on above: Performed By: #### U MICRO, ERUR #### [facility] [address] [place] [address] Dr. Wyatt Aldrich MUCOUS NONE SEEN Normal NONE SEEN [facility] Comment on above: Performed By: #### U MICRO, ERUR #### [facility] [address] [place] [address] Dr. Wyatt Aldrich RBC 2-5 Abnormal 0-2 [facility] Comment on above: Performed By: #### U MICRO, ERUR #### [facility] [address] [place] [address] Dr. Wyatt Aldrich WBC NONE SEEN Normal NONE SEEN [facility] Comment on above: Performed By: #### U MICRO, ERUR #### [facility] [address] [place] [address] Dr. Wyatt Aldrich T4 LABCORPon 01-29-2022 T4 [Mass/Vol] 9.1 ug/dL Normal 4.5-12.0 [facility] Comment on above: Performed By: #### T 4LC ####[facility] [address] [place] [id number]. Wyatt Valdemar CBC AUTO DIFFon 01-28-2022 BASO # 0.1 103/ul Normal 0.0-0.1 [facility] Comment on above: Performed By: #### C BC ####[facility] [address] [place] [address]Dr. Wyatt Aldrich Basophils/100 WBC (Bld) 0.6 % Normal 0.2-2.0 [facility] Comment on above: Performed By: #### C BC ####[facility] [address] [place], [place] [address]Dr. Wyatt Aldrich EO # 0.2 103/ul Normal 0.0-0.7 [facility] Comment on above: Performed By: #### C BC ####[facility] [address] [place], [place] [address]Dr. Wyatt Aldrich Eosinophils/100 WBC (Bld) 2.4 % Normal 0.9-7.0 [facility] Comment on above: Performed By: #### C BC ####[facility] [address] [place], [place] [address]Dr. Jossielalo Aldrich Erythrocyte distribution width (RBC) [Ratio] 12.5 % Normal 11.0-15.0 [facility] Comment on above: Performed By: #### C BC ####[facility] [address] [place], [place] [address]Dr. Jossielalo Aldrich Hematocrit (Bld) [Volume fraction] 43.5 % Normal 42.0-54.0 [facility] Comment on above: Performed By: #### C BC ####[facility] [address] [place], [place] [address]Dr. Jossielalo Aldrich Hemoglobin (Bld) [Mass/Vol] 14.4 g/dL Normal 14.0-18.0 [facility] Comment on above: Performed By: #### C BC ####[facility] [address] [place], [place] [address]Dr. Wyatt Aldrich IG # 0.03 10e3/ul Normal 0.00-0.03 [facility] Comment on above: Performed By: #### C BC ####[facility] [address] [place] [address]Dr. Wyatt Aldrich IG % 0.4 % Normal 0.0-0.5 [facility] Comment on above: Performed By: #### C BC ####[facility] [address]btcujkj[address] [place] [address]Dr. Wyatt Aldrich LYMPH # 2.1 103/ul Normal 1.2-3.8 [facility] Comment on above: Performed By: #### C BC ####[facility] [address]fsg[address] [place] [address]Dr. Wyatt Aldrich Lymphocytes/100 WBC (Bld) 24.8 % Normal 20.5-60.0 [facility] Comment on above: Performed By: #### C BC ####[facility] [address] [place], [place] [address]Dr. Wyatt Aldrich MANUAL DIFF REQ NO Normal [facility] Comment on above: Performed By: #### C BC ####[facility] Q[address]xbjjtet[address] [place] [address]Dr. Jossielalo Aldrich MCH (RBC) [Entitic mass] 30.6 pg Normal 25.9-34.0 [facility] Comment on above: Performed By: #### C BC ####[facility] [address]hgtevn[address] [place] [address]Dr. Wyatt Aldrich MCHC (RBC) [Mass/Vol] 33.1 g/dL Normal 29.9-35.2 [facility] Comment on above: Performed By: #### C BC ####[facility] [address]pfurbk[address] [place] [address]Dr. Wyatt Aldrich MCV (RBC) [Entitic vol] 92.6 fL Normal 80.0-94.0 [facility] Comment on above: Performed By: #### C BC ####[facility] [address] [place], [place] [address]Dr. Wyatt Aldrich MONO # 0.6 103/ul Normal 0.3-0.8 [facility] Comment on above: Performed By: #### C BC ####[facility] [address]yp[address] [place] [address]Dr. Wyatt Aldrich Monocytes/100 WBC (Bld) 7.7 % Normal 1.7-12.0 [facility] Comment on above: Performed By: #### C BC ####[facility] [address] [place] [address]Dr. Wyatt Aldrich NEUT # 5.3 103/ul Normal 1.4-6.5 [facility] Comment on above: Performed By: #### C BC ####[facility] [address]axdfxg[address] [place] [address]Dr. Wyatt Aldrich Neutrophils/100 WBC (Bld) 64.1 % Normal 43.0-75.0 [facility] Comment on above: Performed By: #### C BC ####[facility] [address] [place] [address]Dr. Wyatt Aldrich Platelet mean volume (Bld) [Entitic vol] 9.4 fL Critically low 9.5-13.5 [facility] Comment on above: Performed By: #### C BC ####[facility] [address]oc[address] [place] [address]Dr. Wyatt Aldrich PLT 280 103/ul Normal 150-450 [facility] Comment on above: Performed By: #### C BC ####[facility] [address]osi[address] [place] [address]Dr. Wyatt Aldrich RBC 4.70 106/ul Normal 4.70-6.10 [facility] Comment on above: Performed By: #### C BC ####[facility] Q[address]endttds[address] [place] [address]Dr. Wyatt Aldrich WBC 8.3 103/ul Normal 4.0-11.0 [facility] Comment on above: Performed By: #### C BC ####[facility] [address]ug[address] [place] [address]Dr. Wyatt Aldrich FREE T3on 01-28-2022 FREE T3 2.70 pg/mlL Normal 2.18-3.98 [facility] Comment on above: Performed By: #### L IPID, CMP, TSH, FT3 ####[facility] [address] [place], [place] [address]UxDr. Wyatt Aldrich GLYCOHEMOGLOBIN A1Con 2021 ADA RECOMMENDATION SEE BELOW Normal [facility] Comment on above: Result Comment: ADA RECOMMENDED LIMIT 4.0 - 6.0 ADA THERAPEUTIC TARGET < 7.0 ACTION SUGGESTED > 7.0 Performed By: #### A 1C #### [facility] [address] [place] [address] [address] Wyatt Aldrich Glucose [Mass/Vol] 143 mg/dL Normal [facility] Comment on above: Performed By: #### A 1C #### [facility] [address] [place] [address] [address] Wyatt Aldrich HbA1c (Bld) [Mass fraction] 6.6 % Critically high 4.5-6.2 [facility] Comment on above: Performed By: #### A 1C #### [facility] [address] [address] [address] Wyatt Aldrich LIPID PROFILEon 01-28-2022 CHOL-HDL RATIO NORM SEE BELOW Normal [facility] Comment on above: Result Comment: 3.3 - 4.4 LOW RISK 4.4 - 7.1 AVERAGE RISK 7.1 - 11.0 MODERATE RISK >11.0 HIGH RISK Performed By: #### L IPID, CMP, TSH, FT3 ####[facility] X[address]suip[address] [place] [address]Dr. Wyatt Aldrich Cholesterol [Mass/Vol] 176 mg/dL Normal <=200 [facility] Comment on above: Performed By: #### L IPID, CMP, TSH, FT3 ####[facility] [address]wn[address] [place], [place] [address]EoDr. Wyatt Aldrcih Cholesterol in HDL [Mass/Vol] 35 mg/dL Critically low 40-60 [facility] Comment on above: Performed By: #### L IPID, CMP, TSH, FT3 ####[facility] [address]wi[address] [place] [address]Dr. Wyatt Aldrich Cholesterol in LDL [Mass/Vol] 94.4 mg/dL Normal [facility] Comment on above: Performed By: #### L IPID, CMP, TSH, FT3 ####[facility] [address]xodvylbg[address] [place] [address]Dr. Wyatt Aldrich Cholesterol.total/Ch olesterol in HDL [Mass ratio] 5.0 {ratio} Normal [facility] Comment on above: Performed By: #### L IPID, CMP, TSH, FT3 ####[facility] [address]junx[address] [place] [address]DrCullen Aldrich HDL NORMAL > or = 60 mg/dl - LO W CARDIOVASCULAR RISK <40 mg/dl - HIGH CARDIOVASCULAR RISK Normal [facility] Comment on above: Performed By: #### L IPID, CMP, TSH, FT3 ####[facility] [address]kl[address]ff[address] [place] [address]Dr. Wyatt Aldrich LDL CALC NORMAL SEE BELOW Normal [facility] Comment on above: Result Comment: <100 mg/dl OPTIMAL 100 - 129 mg/dl NEAR OR ABOVE OPTIMAL 130 - 159 mg/dl BORDERLINE HIGH 160 - 189 mg/dl HIGH >190 mg/dl VERY HIGH Performed By: #### L IPID, CMP, TSH, FT3 ####[facility] [address] [place] [address]DrCullen Aldrich Triglyceride [Mass/Vol] 233 mg/dL Critically high <=150 [facility] Comment on above: Performed By: #### L IPID, CMP, TSH, FT3 ####[facility] [address]mj[address] [place] [address]DrCullen Aldrich VLDL CALC 46.6 mg/dL Normal [facility] Comment on above: Performed By: #### L IPID, CMP, TSH, FT3 ####[facility] L[address]yxgeqh[address] [place] [address]11DrCullen Aldrich OCC BLD IMMUNO SCREENon 01-03 OCCULT BLOOD Negative Normal NEGATIVE [facility] Comment on above: Performed By: #### O BSCRN #### [facility] [address] [address] [address] Wyatt Aldrich PROF 14(COMP METB)on 022 Albumin [Mass/Vol] 3.4 g/dL Normal 3.4-5.0 [facility] Comment on above: Performed By: #### L IPID, CMP, TSH, FT3 ####[facility] [address]oozye[address] [place] [address]Dr. Wyatt Aldrich Albumin/Globulin [Mass ratio] 1.0 {ratio} Normal [facility] Comment on above: Performed By: #### L IPID, CMP, TSH, FT3 ####[facility] [address]ur[address] [place] [address]Dr. Wyatt Aldrich ALP [Catalytic activity/Vol] 65 U/L Normal 46-116 [facility] Comment on above: Performed By: #### L IPID, CMP, TSH, FT3 ####[place] [address] [place] [address]Dr. Wyatt Aldrich ALT [Catalytic activity/Vol] 45 U/L Normal 16-63 [facility] Comment on above: Performed By: #### L IPID, CMP, TSH, FT3 ####[place] [address] [place] [address]Dr. Wyatt Aldrich Anion gap [Moles/Vol] 9.7 mmol/L Normal [facility] Comment on above: Performed By: #### L IPID, CMP, TSH, FT3 ####[place] [address] [place] [address]Dr. Wyatt Aldrich AST [Catalytic activity/Vol] 20 U/L Normal 15-37 [facility] Comment on above: Performed By: #### L IPID, CMP, TSH, FT3 ####[place] [address] [place] [address]Dr. Wyatt Aldrich Bilirubin [Mass/Vol] 0.4 mg/dL Normal 0.2-1.0 [facility] Comment on above: Performed By: #### L IPID, CMP, TSH, FT3 ####[place] [address] [place] [address]Dr. Wyatt Aldrich Calcium [Mass/Vol] 8.5 mg/dL Normal 8.5-10.1 [facility] Comment on above: Performed By: #### L IPID, CMP, TSH, FT3 ####[place] [address] [place] [address]Dr. Wyatt Aldrich Chloride [Moles/Vol] 101 mmol/L Normal 98-107 [facility] Comment on above: Performed By: #### L IPID, CMP, TSH, FT3 ####[place] [address] [place] [address]Dr. Wyatt Aldrich CO2 [Moles/Vol] 33.3 mmol/L Critically high 21.0-32.0 [facility] Comment on above: Performed By: #### L IPID, CMP, TSH, FT3 ####[place] [address] [place] [address]Dr. Wyatt Aldrich Creatinine [Mass/Vol] 0.77 mg/dL Normal 0.70-1.30 [facility] Comment on above: Performed By: #### L IPID, CMP, TSH, FT3 ####[place] [address] [place] [address]Dr. Wyatt Aldrich EGFR-AF COSTA RICAN >60 Normal >=60 [facility] Comment on above: Performed By: #### L IPID, CMP, TSH, FT3 ####[place] [address] [place] [address]Dr. Wyatt Aldrich EGFR-NON AF [place] R[place] >60 Normal >=60 [facility] Comment on above: Performed By: #### L IPID, CMP, TSH, FT3 ####[place] [address] [place] [address]Dr. Wyatt Aldrich Globulin (S) [Mass/Vol] 3.3 g/dL Normal [facility] Comment on above: Performed By: #### L IPID, CMP, TSH, FT3 ####[place] [address] [place] [address]Dr. Wyatt Aldrich Glucose [Mass/Vol] 137 mg/dL Critically high 74-106 [facility] Comment on above: Performed By: #### L IPID, CMP, TSH, FT3 ####[place] [address] [place] [address]Dr. Wyatt Aldrich Potassium [Moles/Vol] 4.0 mmol/L Normal 3.5-5.1 [facility] Comment on above: Performed By: #### L IPID, CMP, TSH, FT3 ####[place] [address] [place] [address]Dr. Wyatt Aldrich Protein [Mass/Vol] 6.7 g/dL Normal 6.4-8.2 [facility] Comment on above: Performed By: #### L IPID, CMP, TSH, FT3 ####[place] [address] [place], [place] [address]Dr. Wyatt Aldrich Sodium [Moles/Vol] 140 mmol/L Normal 136-145 [facility] Comment on above: Performed By: #### L IPID, CMP, TSH, FT3 ####[place] [address] [place], [place] [address]Dr. Wyatt Aldrich Urea nitrogen [Mass/Vol] 13.0 mg/dL Normal 7.0-18.0 [facility] Comment on above: Performed By: #### L IPID, CMP, TSH, FT3 ####[place] [address] [place], [place] [address]Dr. Wyatt Aldrich Urea nitrogen/Creatinine [Mass ratio] 16.9 mg/mg Normal [facility] Comment on above: Performed By: #### L IPID, CMP, TSH, FT3 ####[place] [address] [place], [place] [address]Dr. Wyatt Aldrich TSHon 01-28-2022 TSH 5.562 uIU/mL Critically high 0.358-3.740 [facility] Comment on above: Performed By: #### L IPID, CMP, TSH, FT3 ####[place] [address] [place] [address]Dr. Wyatt Aldrich TSH RANGE SEE BELOW Normal [facility] Comment on above: Result Comment: <0.3 4 UIU/ml HYPERTHYROID 0.34-5.60 UIU/ml EUTHYROID >5.60 UIU/ml HYPOTHYROID Performed By: #### L IPID, CMP, TSH, FT3 ####[place] [address] [place], [place] [address]JbCullen Aldrich XR KUB 1 VIEWon 01-20-2022 XR [...] MANSOOR LIMA Date: 2022-01-20 14:12 Normal [facility] LSPINE WO W CONon 2021 MRI [...] by: TANISHA CHIU Date: 2021-10-04 11:23 Normal [facility] XR LSPINE MIN 4 VIEWSon 09-05 [...] by: SOLO SAVAGE Date: 2021-09-27 11:31 Normal [facility] Vital Signs Date Time Vital Sign Value Performing Clinician Jessi chowdhury 06-11-2024 08:19-0400 Blood Pressure Location Yovany GIOVANA [facility] 06-11-2024 08:19-0400 Diastolic blood pressure 111 mm[Hg] Yovany Dizzywood [facility] 06-11-2024 08:19-0400 Heart rate 71 /min Yovany GIOVANA [facility] 06-11-2024 08:19-0400 Systolic blood pressure 190 mm[Hg] Yovany Dizzywood [facility] 06-06-2023 08:48-0400 Blood Pressure Location Yovany COOK [facility] 06-06-2023 08:48-0400 Diastolic blood pressure 66 mm[Hg] Yovany COOK [facility] 06-06-2023 08:48-0400 Heart rate 83 /min Yovany COOK [facility] 06-06-2023 08:48-0400 Systolic blood pressure 142 mm[Hg] Yovany COOK [facility] 06-17-2022 09:14-0400 Blood Pressure Location Yovany COOK [facility] 06-17-2022 09:14-0400 Diastolic blood pressure 96 mm[Hg] Yovany COOK [facility] 06-17-2022 09:14-0400 Heart rate 67 /min Yovany COOK [facility] 06-17-2022 09:14-0400 Systolic blood pressure 159 mm[Hg] Yovany COOK [facility] 06-10-2022 09:54-0400 Blood Pressure Location Yovany COOK [facility] 06-10-2022 09:54-0400 Diastolic blood pressure 102 mm[Hg] Yovany COOK [facility] 06-10-2022 09:54-0400 Heart rate 68 /min Yovany COOK [facility] 06-10-2022 09:54-0400 Systolic blood pressure 166 mm[Hg] Yovany AKHTAR [facility] 01-21-2022 08:44-0400 Blood Pressure Location Yovany AKHTAR [facility] 01-21-2022 08:44-0400 Diastolic blood pressure 87 mm[Hg] Yovany AKHTAR [facility] 01-21-2022 08:44-0400 Heart rate 72 /min Yovany AKHTAR [facility] [employer] 01-21-2022 08:44-0400 Systolic blood pressure 140 mm[Hg] Yovany AKHTAR [facility] [employer] [facility] [employer] Encounters Encounter Date Encounter Type Care Provider Facility Start: 06-10-2025 ambulatory Yovany AKHTAR Facility :[facility] Start: 06-11-2024 End: 06-11-2024 ambulatory Yovany AKHTAR Facility:[facility] Start: 06-11-2024 End: 06-11-2024 Patient encounter procedure Yovany AKHTAR [facility] Start: 06-10-2024 End: 06-10-2024 ambulatory Heather Turcios MD Facility: [facility] Start: 02-19-2024 End: 02-19-2024 ambulatory Heather Turcios MD Facility:[facility] Start: 02-05-2024 End: 02-05-2024 ambulatory Heather Turcios MD Facility:[facility] Start: 12-25-2023 End: 12-25-2023 ambulatory MICHAEL T JULIO Not Available Start: 12-21-2023 End: 12-21-2023 ambulatory BALTA OTTO Not Available Start: 12-19-2023 End: 12-19-2023 ambulatory MICHAEL Boudreaux JULIO Not Available Start: 06-06-2023 End: 06-06-2023 Patient encounter procedure Yovany AKHTAR [facility] Start: 06-17-2022 End: 06-17-2022 Patient encounter procedure Yovany AKHTAR [facility] Start: 06-16-2022 End: 06-17-[address] NANCY FERNANDEZ Facility:[facility] Start: 06-10-2022 End: 06-10-2022 Patient encounter procedure Yovany AKHTAR [facility] Start: 06-09-2022 End: 06-10-[address] NANCY FERNANDEZ Facility:[facility] Start: 05-29-2022 End: 05-29-[address] NANCY FERNANDEZ Facility:[facility] Start: 05-11-2022 End: 05-11-2022 Patient encounter procedure Yovany AKHTAR [facility] Start: 02-03-2022 Encounter for genera l adult medical examination without abnormal findings DR NANCY FERNANDEZ [facility] Start: 01-28-2022 End: 01-29-[address] NANCY FERNANDEZ Facility:[facility] Start: 01-28-2022 End: 01-29-2022 Encounter for general adult medical examination without abnormal findings DR NANCY FERNANDEZ Facility:[facility] Start: 01-21-2022 End: 01-21-2022 Patient encounter procedure Yovany AKHTAR [facility] Start: 01-20-2022 End: 01-21-[address] NANCY [...] on above: Performed By: #### P SAD ####[place] [address]DrCullen Wyatt Aldrich Start: 08-13-2020 Extracorporeal shock wave lithotripsy of calculus of kidney Yovany AKHTAR Dental surgical procedure Gr poncho AKHTAR Entire gallbladder ( body structure) Yovany AKHTAR History of tonsillectomy Mitul AKHTAR Kidney stone (disorder) Gee AKHTAR l4 l5 disectomy Yovany AKHTAR carlo anal abcess Yovany [employer]IC[employer] Nitesh Repair of anal fistula Marvel ry GIOVANA Immunizations Immunization Date Immunization Notes Care Provider Mica biggs 04-19-2022 zoster vaccine recombinant Yovany AKHTAR [facility] 02-12-2022 pneumococcal 20-maría nt conjugate vaccine Yovany AKHTAR [facility] 02-03-2022 zoster vaccine recombinant Yovany AKHTAR [facility] 12-08-2020 SARS-CoV-2 (COVID-19 ) mRNA-1273 vaccine Yovany AKHTAR [facility] 11-17-2020 SARS-CoV-2 (COVID-19 ) mRNA BNT-162b2 vax Yovany AKHTAR [facility] 11-11-2020 SARS-CoV-2 (COVID-19 ) mRNA-1273 vaccine Yovany AKHTAR [facility] Payers Date Payer Category Payer Unknown 2023 Unknown [id number] 1965 Unknown [id number] .16.84 [id number] 1964 Unknown [id number] 2.16.84 [id number] 1964 Unknown [id number] .16.84 [id number] 1964 Unknown [id number] 2.16.84 0.1.274638.3.579.2.593 1964 Unknown [id number] 2.16.84 0.1.753195.3.579.2.593 1964 Unknown [id number] 2.16.84 0.1.951195.3.579.2.593 1964 Unknown [id number] 2.16.84 0.1.877617.3.579.2.593 1964 Unknown [id number] 2.16.84 0.1.941548.3.579.2.593 1964 Unknown [id number] 2.16.84 0.1.972863.3.579.2.1259 1964 Unknown [id number] 2.16.84 0.1.316179.3.579.2.1259 1964 Unknown [id number] 2.16.84 0.1.331917.3.579.2.1259 1964 Unknown [id number] 2.16.8 40.1.838711.3.579.2.727 1964 Unknown [id number] 2.16.8 40.1.627779.3.579.2.727 1964 Unknown [id number] 2.16. 840.1.511795.3.579.2.196 1964 Unknown [id number] 2.16. 840.1.784868.3.579.2.196 1964 Unknown [id number] 2.16. [id number] 1959 Private Health Insurance [id number] Social History Date Type Detail Facility Start: 01-15-2021 End: 06-11-2024 Tobacco smoking status Ex-smoker (finding) [facility] Tobacco smoking status Never [facility] [employer] Sex Assigned At Male [facility] [employer] Functional Status Date Assessment Result Facility 06-11-2024 Functional Status N/A [facility] 06-06-2023 Functional Status N/A [facility] 06-17-2022 Functional Status N/A [facility] 06-10-2022 Functional Status N/A [facility] Clinical Notes 01-21-2022 to 06-11-2024 Laboratory Note [...] you may eat and drink normally. Take gymq-fcl-zrpimjp and prescription medicines only as told by your health care provider. Let your health care provider know about any medicines that you are taking, including togb-jcx-ljcbidj medicines, vitamins, herbs, and supplements. Choose a [...] provider. Document Revised: 02/25/2022 Document Reviewed: 02/25/2022 [employer] Patient Education 2023 [employer]. 06/11/2024 08:23:10 Dietary Guidelines to Help Prevent [...] include: ?8 oz (237 mL) of milk, xxefatp-fzsdkspgvsjc-fpesy milk, and calcium-fortifiedfruit juice. Calcium-fortified means that [...] potatoes, and [place]agu[place] chard. ?Peanuts. ?Potato chips, ivorian fries, and baked potatoes with skin on. ?Nuts and nut products. ?Chocolate. If you regularly take a diuretic medicine, make sure to eat at least 1 or 2 servings of fruits or vegetables that are high in potassium each day. These include: ?Avocado. ?Banana. ?Cherry, prune, carrot, or tomato juice. ?Baked potato. [...] magnesium, fish oil, or vitamin B6. Take joia-lie-furhikc and prescription medicines only as told by [...] Casseroles. Pizza. Lasagna. Frozen meals. Potato chips. Guamanian fries. The items listed above may not [...] provider. Document Revised: 12/01/2022 Document Reviewed: 12/01/2022 [employer] Patient Education 2023 [employer]. Follow Up Care 06/06/2023 09:30:15 With:GIOVANA CANTOR, Yovany P, URL Address: [address] [place], [place] [id number]- When: Unknown [facility] 06-11-2024 Note Patient Education Nephrology Dietary [...] ? 8 oz (237 mL) of milk, itsgihm-mrlafgmzmikn-fkaee milk, and calcium-fortifiedfruit juice. Calcium-fortified means that [...] [place] chard. ? Peanuts. ? Potato chips, ivorian fries, and baked potatoes with skin on. ? Nuts and nut products. ? Chocolate. ? If you regularly take a diuretic medicine, make sure to eat at least 1 or 2 servings of fruits or vegetables that are high in potassium each day. These include: ? Avocado. ? Banana. ? Cherry, prune, carrot, or tomato juice. ? Baked [...] fish oil, or vitamin B6. ? Take ctlv-yfr-sudzehh and prescription medicines only as told by your health care provider. These include suppleme (more content not included)... [facility] 06-06-2023 Hospital Discharge instructions Patient Education [...] include: ?8 oz (237 mL) of milk, hohehac-gzvcpuhlblew-qtibl milk, and calcium-fortifiedfruit juice. Calcium-fortified means that [...] potatoes, and [place] chard. ?Peanuts. ?Potato chips, ivorian fries, and baked potatoes with skin on. ?Nuts and nut products. ?Chocolate. If you regularly take a diuretic medicine, make sure to eat at least 1 or 2 servings of fruits or vegetables that are high in potassium each day. These include: ?Avocado. ?Banana. ?Cherry, prune, carrot, or tomato juice. ?Baked potato. [...] magnesium, fish oil, or vitamin B6. Take akyp-aps-yretfii and prescription medicines only as told by [...] Casseroles. Pizza. Lasagna. Frozen meals. Potato chips. Guamanian fries. The items listed above may not [...] provider. Document Revised: 05/02/2022 Document Reviewed: 05/02/2022 [employer] Patient Education 2022 [employer]. Follow Up Care 01/21/2022 09:03:45 With:GIOVANA CANTOR, Yovany Kwan, URL Address: [facility] [employer] [place] [id number]- When:Within 1 Year(s) Comments:claire/MT [facility] 06-17-2022 Hospital Discharge instructions Patient Education 06/17/2022 [...] include: ?Spinach. ?Rhubarb. ?Beets. ?Potato chips and ivorian fries. ?Nuts. If you regularly take a diuretic medicine, make sure to eat at least 1 2 fruits or vegetables high in potassium each day. These include: ?Avocado. ?Banana. ?Cherry, prune, carrot, or tomato juice. ?Baked potato. [...] Casseroles. Pizza. Lasagna. Frozen meals. Potato chips. Guamanian fries. Summary You can reduce your risk [...] 12/16/2011 Document Revised: 12/11/2019 Document Reviewed: 08/01/2017 [employer] Patient Education 2020 [employer]. Follow Up Care 06/10/2022 10:24:22 With:GIOVANA CANTOR, Yovany Kwan, URL Address: [facility] [employer] [address] [place] [id number] When:6 months Comments:w/ [place] [facility] 06-10-2022 Hospital Discharge instructions [...] include: ?Spinach. ?Rhubarb. ?Beets. ?Potato chips and ivorian fries. ?Nuts. If you regularly take a diuretic medicine, make sure to eat at least 1 2 fruits or vegetables high in potassium each day. These include: ?Avocado. ?Banana. ?Cherry, prune, carrot, or tomato juice. ?Baked potato. [...] Casseroles. Pizza. Lasagna. Frozen meals. Potato chips. Guamanian fries. Summary You can reduce your risk [...] 09:25:01 With:GIOVANA CANTOR, Yovany Kwan, URL Address: [facility] [employer] [address] [place] [id number]- When:2 weeks Comments:MT [facility] 01-21-2022 Hospital Discharge instructions [...] urethra. Follow these instructions at home: Take pbra-dwy-dgbcday and prescription medicines only as told by [...] 08/21/2006 Document Revised: 07/16/2019 Document Reviewed: 09/25/2017 [employer] Patient Education 2020 [employer] Follow Up Care 01/15/2021 08:45:48 With:GIOVANA CANTOR, Yovany Kwan, URL Address: [address] [employer] [address] [place] [id number]- When:01/21/2023 Comments:with PSA and x-ray [facility] Evaluation + Plan note Future Appointments Appointment Date:02/24/2023 08:00:00 AM Scheduled Provider:[facility]any [facility]HTAR [facility] Type:URO Office Visit [facility] Evaluation + Plan note Future Appointments Appointment Date:02/24/2023 08:00:00 AM Scheduled Provider:Yovany AKHTAR MD [facility] Appoint[facility] Type:URO Office Visit Future Scheduled TestsPT & PTT 04/20/22BUN 04/20/22Creatinine 04/20/22Electrolyte Panel 04/20/22CBC w/ Auto Diff 04/20/22 [facility] Evaluation + Plan note Future Appointments Appointment Date:06/17/2022 09:15:00 AM Scheduled Provider:Yovany AKHTAR MD Location:[facility] Appointment Type:URO Office Visit Appointment Date:02/24/2023 08:00:00 AM Scheduled Provider:Yovany AKHTAR MD Location:[facility] Appointment Type:URO Office Visit [facility] Evaluation + Plan note Future Appointments Appointment Date:06/11/2024 08:00:00 AM Scheduled Provider:Yovany AKHTAR MD [facility] App[facility] Type:URO Office Visit [facility] Evaluation + Plan note Future Appointments Appointment Date:06/10/2025 08:00:00 AM Scheduled Provider:Yovany AKHTAR MD [facility] App[facility] Type:URO Office Visit [facility] course Narrative No data available for this section [facility] Discharge instructions No data available for this section [facility] Progress note No data available for this section [facility] Summary Purpose Family History No [...] Personnel Name: Nancy Fernandez MD Address: [address] [place] [address] Personnel Name: Nancy Fernandez MD Address: Address: [address] [place] [address] Personnel Name: Nancy Fernandez MD Address: Address: [address] [place] [address] Personnel Name: Nancy Fernandez MD Address: Address: [address] [place] [address] Personnel Name: Nancy Fernandez MD Address: Address: [address] [place] [address] (unrecognized sect ion and content) No Status Records FoundNo Status Records FoundNo Status Records FoundNo Status Records Found INFORMATION SOURCE (unrecogn ized section and content) DATE CREATED AUTHOR 07/07/2022 [facility] DATE CREATED AUTHOR AUTHOR'S ORGANIZ ATION 12/26/2023 [facility] DATE CREATED AUTHOR AUTHOR'S ORGANIZ ATION 06/12/2024 [facility] DATE CREATED AUTHOR AUTHOR'S ORGANIZ ATION 06/19/2024 [facility] FOR RECORDS PERTAINING TO PATIENTS [...] BE BASED ON THE PRIMARY CLINICAL RECORDS. [facility] [employer] [facility]. provides no warranty or guarantee of the accuracy or completeness of information in this document."
[2024-07-08 09:51] LABS: Calcium 8.9 mg/dL (8.5-10.1); Carbon Dioxide 29.3 mmol/L (21.0-32.0); Chloride 103 mmol/L (98-107); Estimated GFR (African America >60 (>=60 mL/min/1.73m^2); Estimated GFR (Non-African Ame >60 (>=60 mL/min/1.73m^2); Sodium 143 mmol/L (136-145); Uric Acid 7.2 mg/dL (3.5-7.2)
[2024-07-09 10:10] LABS: PTH, Intact 28 pg/mL (15-65)
== END 2024-07-08 09:11 | disposition home or self-care (01) ==
LOC: LAB 09:11
PROVIDERS: PCP Family Medicine; Visit Provider Urology
DX: N20.0 Calculus of kidney (principal)
CPT/HCPCS: 36415; 82310; 82374; 82435; 82565; 83970; 84100; 84295; 84520; 84550

== ENCOUNTER 2024-09-26 08:14 | Outpatient (OUT) | payer BC, SELFPAY ==
--- OUTSIDE RECORDS SUMMARY | 2024-09-26 08:29 | XMS_ITS | CCD ---
Author Organization [facility] Care Team Providers Care Supervisor [employer] Name Role Phone Nancy Fernandez Primary Care Physician [phone], DR CRUZ Primary Care Unavailable GIOVANA, [...] Unavailable Karolina CANTOR, Heather Voss Attending Unavailable Yovany AKHTAR Attending Unavailable Yovany AKHTAR Attending Unavailable Zena Whipple Attending Unavailable Allergies Allergy Classification Reported Allergen(s) Allergy Type Date of Onset Reaction(s) Facility (8 sources) Acetaminophen / HYDROcodone; Translations: [acetaminophen-hyd rocodone] Drug Allergy Hyperactive behavior (finding) [facility] Medications Current Medications Medication Drug Class(es) Dates Sig (Normalized) Sig (Original) Albuterol (7 sources) beta2-Adrenergic Agonist Start: 04-28-2017 take 2 [...] Daily, Prophylaxis Start Date: 07/29/20 Status: Ordered baclofen 10 mg oral tablet (1 source) gamma-Aminobutyric Acid-ergic Agonist Start: 09-10-2024 baclofen 10 mg Tab 10 mg = 1 tab(s), Oral, As Directed Start Date: 09/10/24 Status: Ordered carvedilol 25 mg oral tablet (7 sources) alpha-Adrenergic Esperanza, beta-Adrenergic Esperanza Start: 03-06-2019 Coreg 25 mg Tab 37.5 mg = 1.5 tab(s), Oral, BID, Prophylaxis Start Date: 03/06/19 Status: Ordered Daily Multiple Vitamins (7 sources) Start: 02-19-2019 take 1 tablet by [...] Status: Ordered glimepiride 2 mg oral tablet (2 sources) Sulfonylurea Start: 06-11-2024 take 1 mg by mouth once daily glimepiride 2 mg Tab mg tab(s), Oral, Daily, Refills(s) 0 Start Date: 06/11/24 Status: Ordered hydrALAZINE hydrochloride 100 mg oral tablet (7 sources) Arteriolar Vasodilator Start: 04-28-2017 take 100 mg by mouth three times daily hydrALAZINE 100 mg, Oral, TID, Refills(s) 0, High blood pressure Start Date: 04/28/17 Status: Ordered hydroCHLOROthiazide 25 mg oral tablet (7 sources) Thiazide Diuretic Start: 02-19-2019 take 2 tablets by mouth once daily in the morning hydrochlorothiazide 25 mg oral tablet 50 mg = 2 tab(s), Oral, qAM, Refills(s) 0, High blood pressure Start Date: 02/19/19 Status: Ordered levothyroxine sodium 0.05 mg oral tablet (7 sources) l-Thyroxine Start: 07-29-2020 take 1 tablet [...] Ordered metFORMIN hydrochloride 500 mg oral tablet (7 sources) Biguanide Start: 05-08-2020 take 1 tablet by mouth twice daily metformin 500 mg ER Tab 500 mg = 1 tab(s), Oral, BID, Refills(s) 0, Blood glucose Start Date: 05/08/20 Status: Ordered olmesartan medoxomil 40 mg oral tablet (7 sources) Angiotensin 2 Receptor Esperanza Start: 03-06-2019 take 1 tablet by mouth at bedtime Benicar 40 mg Tab 40 mg = 1 tab(s), Oral, Bedtime, High blood pressure Start Date: 03/06/19 Status: Ordered pravastatin sodium 20 mg oral tablet (7 sources) HMG-CoA Reductase Inhibitor Start: 04-28-2017 take [...] # 30 cap(s), Refills(s) 2, Pharmacy: [id number], 188, cm, 06/10/22 9:57:00 EDT, Height/Length Dosing, 150, kg, 06/10/22 9:57:00 EDT, Weight Dosing Start Date: 06/10/22 Status: Ordered Ultram (7 sources) Opioid Agonist Start: 01-15-2021 take 1 [...] Daily, Prophylaxis Start Date: 07/29/20 Status: Ordered Completed/Discontinued Medications Medication Drug Class(es) Dates Sig (Normalized) Sig (Original) ##### (1 source) Start: 09-10-2024 ##### 30 EA, 0 Refill(s), TAKE 1 TABLET BY MOUTH EVERYDAY AT BEDTIME NEEDED Start Date: 09/10/24 Status: Ordered Problems Active Problems Problem Classification Problem Date Documented Date Episodic/Chronic Abdominal pain (4 sources) Unspecified abdominal pain; Translations: [UNSPECIFIED ABDOMINAL PAIN] Onset: 05-29-20 Episodic Calculus of urinary tract (20 sources) Kidney stone; Translations: [Calculus of kidney] Onset: 01-22-20 Episodic Diabetes mellitus without complication (8 sources) Type 2 diabetes mellitus; Translations: [Type 2 diabetes mellitus without complication] 02-19-2019 Chronic Diseases of white blood cells (1 source) Leukocytosis 09-10-2024 Chronic Esophageal disorders (7 sources) Gastroesophageal reflux disease 07-29-2020 Chronic Essential hypertension (10 sources) Hypertensive disorder; Translations: [Essential (primary) hypertension] Onset: 05-31-2007-29-2020 Chronic Genitourinary symptoms and ill-defined conditions (9 sources) Nocturia; Translations: [Abnormal urinary product] Onset: 09-10-1907-10-2020 Episodic Hyperplasia of prostate (13 sources) Benign prostatic hypertrophy without outflow obstruction; Translations: [Benign prostatic hyperplasia without lower urinary tract symptoms] Onset: 01-22-20 Chronic Neoplasms of unspecified nature or uncertain behavior (7 sources) Neoplasm of uncertain behavior of skin 07-29-2020 Episodic Osteoarthritis (8 sources) Osteoarthritis 02-19-2019 Chronic Other aftercare (7 sources) Long-term current use of anticoagulant 02-19-2019 Episodic Other aftercare (1 source) Other tank terminal gauger (current) drug therapy; Translations: [OTH INTERMEDIATE CURRENT DRUG THERAPY] Onset: 05-31-20 Episodic Other aftercare (1 source) intermediate frame tender (current) use of aspirin; Translations: [SPORTS EQUIPMENT REPAIRER CURRENT USE OF ASPIRIN] Onset: 05-31-20 Episodic Other and unspecified benign neoplasm (7 sources) Dermatofibroma 02-19-2019 Episodic Other circulatory disease (7 sources) H/O: cardiovascular disease 04-28-2017 Episodic Comment on above: superficial left leg february 2017 Other lower respiratory disease (7 sources) History of chronic lung disease 04-28-2017 Episodic Other nervous system disorders (1 source) Neuropathy 09-10-2024 Chronic Other nutritional; endocrine; and metabolic disorders (7 sources) Body mass index 40+ - severely obese 07-10-2020 Chronic Other nutritional; endocrine; and metabolic disorders (1 source) Obesity, unspecified; Translations: [OBESITY UNSPECIFIED] Onset: 05-31-20 Chronic Other nutritional; endocrine; and metabolic disorders (1 source) Body mass index (BMI) 40.0-44.9, adult; Translations: [BODY MASS INDEX BMI 40.0-44.9 ADULT] Onset: 05-31-20 Chronic Other nutritional; endocrine; and metabolic disorders (1 source) Obesity 09-10-2024 Chronic Other nutritional; endocrine; and metabolic disorders (7 sources) History of hypercholesterolemia 04-28-2017 Episodic Other nutritional; endocrine; and metabolic disorders (1 source) Increased uric acid level 09-10-2024 Episod ic Other screening for suspected conditions (not mental disorders or infectious disease) (7 sources) Raised prostate specific antigen 07-10-2020 Episodic Phlebitis; thrombophlebitis and thromboembolism (7 sources) Thrombophlebitis of lower extremities 07-29-2020 Episodic Residual codes; unclassified (7 sources) H/O: anticoagulant therapy 07-10-2020 Episodic Residual codes; unclassified (1 source) Past history of procedure 09-10-2024 Episod ic Spondylosis; intervertebral disc disorders; other back problems (5 sources) Other intervertebral disc displacement, lumbar region; Translations: [Other intervertebral disc degeneration, lumbar region] Onset: 09-29-19 Chronic Thyroid disorders (7 sources) Hypothyroidism 07-29-2020 Chronic Unclassified (1 source) Urine finding 09-10-2024 Urinary tract infections (1 source) Urinary tract infection, site not specified; Translations: [UTI SITE NOT SPECIFIED] Onset: 05-31-20 Episodic Past or Other Problems Problem Classification Problem Date Documented Date Episodic/Chronic E Codes: Cut/pierceb (1 source) Contact with other sharp object(s), not elsewhere classified, initial encounter; Translations: [[facility] OTH SHRP OB NOT ELSW CLASS INI] Onset: 10-01-2021 Episodic Immunizations and screening for infectious disease (1 source) Encounter for immunization; Translations: [ENCOUNTER FOR IMMUNIZATION] Onset: 10-01-2021 Episodic Open wounds of extremities (4 sources) Laceration without foreign body of left wrist, initial encounter; Translations: [LACERATION W/O FB LT WRIST INITIAL] Onset: 09-29-2021 Episodic Spondylosis; intervertebral disc disorders; other back problems (1 source) Lumbar radiculopathy Onset: 01-10-2024 09-10-2024 Episodic Results Test Name Value Interpretation Reference Range Facility Urology Office/Clinic Noteon 09-12-2024 Urology Office/Clinic Note Urology Office/Clinic Note Chief Complaint 3 Month F/U HPI Staff 3 mo f/u with metabolic workup. Metabolic workup 07/08/24. Previous Dx: kidney stone, BPH, HTN. *no uro meds Dysuria: denies Incomplete bladder emptying: denies Hematuria: denies any visual blood Frequency: 3-4 x day Urgency: denies Nocturia: sometimes Stream: good stream Leaking: pt states doesn't know if he does it unnoticeable Post void dripping: denies Wearing pads/ Depends: _denies Urge incontinence: denies Stress incontinence: denies Incontinence without Sensory Awareness: denies Abdominal pain: denies Flank pain: rt sided flank pain x few weeks and pre existing back pain as well Sexual complaints: denies History of Present Illness Tests reviewed: UA and Met Workup I have reviewed the previous health record [...] See HPI. Physical Exam Vitals & Measurements T: 37 ???C(Oral) HR: 69(Peripheral) BP: 140/78 HT: 74 in HT: 188 cm WT: 165.1 kg WT: 363.983 lb BMI: 46.71 General Appearance: alert, no distress, well nourished, well developed male. Assessment/Plan 3 mo f/u with metabolic workup. Metabolic workup 07/08/24. Patient here today with . 1. Kidney stone (N20.0: Calculus of kidney) S/p R lithotripsy 05/26/22. KUB 06/16/22 - Neg. KUB 05/31/23 - Punctate R nephrolithiasis. KUB 06/07/24 [facility] - Neg. Personal review: possible bilateral punctate stones. Denies stone event since prior OV. Known to contact office w/ flank pain, suspicion for stone episode. Increase fluid intake, avoid bladder irritants ER for fever, NV, severe flank pain, inability to urinate UA w/o blood or infection Metabolic workup 07/08/2024: Urine volume of 1.44 L -discussed need for increased fluid intake, goal of 2.5 L daily. Discussed use of flavor enhancers that her low sugar, clear sodas. U 24 Ca high 315 - see #2 U 24 Oxylate mildly high 40 - educated on reducing oxalates in diet. Provided with dietary information today. U 24 Uric acid 1.224 high -educated on reducing uric acid in diet Discussed with patient Follow up in Jun 2025 w KUB as scheduled Ordered: Urnls Dip Stick Auto w/o Microscopy POC 66842 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 States he was originally started on this years ago for stone prevention, but has since been modified for his hypertension. We discussed use of hydrochlorothiazide in stone prevention. He is currently at max dose for stone prevention. We discussed reduction of calcium in the diet, reduce sodium, moderate animal protein intake. 3. BPH (benign prostatic hyperplasia) (N40.0: Benign prostatic hyperplasia without lower urinary tract symptoms) PSA (ordered by PCP annually): 04/15/20 - 5.50 & 11.6% 07/07/20 - 0.50 & 16% 01/14/21 - 0.30 & 33% 06/27/23 - 0.22 UA today neg IPSS 3 (5). No urinary complaints, stable. Shares PSA levels are stable. -Cont PSA monitoring with PCP. Ordered: Urnls Dip Stick Auto w/o Microscopy POC [id number] Follow-up With When Contact Information GIOVANA CANTOR, Yovany Kwan, URL [address] [place] [id number]- Additional Instructions: Follow up in Jun 2025 w KUB Patient Education Kidney Stones, [id number] Cecilio Alvarez, personally scribed for ELSIE Hawkins APRN on 09/10/2024 10:45:04. . Documentation recorded by the lamberto Palacio accurately reflects the services(s) I performed and decisions made by me. Authenticated by Zena Whipple APRN, FNP-C on 09/12/2024 11:39:39. 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 Normal [facility] Comment on above: Result Comment: Elec tronically Signed By: ELSIE Whipple APRN, Aurora X\.br\Date and Time Signed: 09/12/24 11:40 EST\.br\Electronically Co-Signed By: Cecilio Palacio\.br\Date and Time Co-Signed: 09/10/24 10:45 EST Ambulatory Visit Summaryon 0 09-10-2024 Ambulatory Visit Summary Ambulatory Visit Summary LIZ SHELBY :1965 Visit Date:09/10/2024 Ambulatory Visit Instructions Your Diagnosis Kidney stone Hyperuricosuria Hypocitraturia BPH (benign prostatic hyperplasia) Hypertension Your Care Team Attending Physician - ELSIE Wihpple APRN, Aurora X Primary Care Physician - Nancy Fernandez MD This Is Your Medications List Contact prescribing physician if questions or concerns Misc Prescription (#####) albuterol baclofen (baclofen 10 mg Tab) carvedilol (Coreg 25 mg Tab) glimepiride (glimepiride [...] l5 disectomy, carlo anal abcess. Discharge Vitals Temperature (Oral) 37 ???C Heart Rate (Peripheral) 69 Blood Pressure 140/78 Height 74 in Height 188 cm Weight 363.983 lb Weight 165.1 kg BMI 46.71 What to do next Scheduled Follow-Up Appointments Monday 8:00 AM EDT With: Yovany AKHTAR MD Where: [facility] [address] [place] [address]- You Need to Schedule the Following Appointments Follow Up with Yovany AKHTAR MD, URL When: Where: [address] [address]- Medications What How Much When Instructions Unchanged albuterol 2 Puffs Inhalation Every 6 hours as needed for Wheezing Contact prescribing physician if questions or concerns Unchanged baclofen (baclofen 10 mg Tab) 1 Tablets By Mouth As Directed Contact prescribing physician if questions or concerns [...] prescribing physician if questions or concerns Unchanged Misc Prescription (#####) 0 30 EA, 0 Refill(s), TAKE 1 TABLET BY MOUTH EVERYDAY AT BEDTIME NEEDED Contact prescribing physician if questions or concerns [...] mellitus type 2, noninsulin dependent Elevated PSA History of procedure Hx of detention use of blood thinners Hyperuricosuria Hypocitraturia Kidney stone Kidney stone Leukocytosis Lumbar radiculopathy Neuropathy Nocturia Obesity Osteoarthritis Osteoarthritis Type 2 diabetes mellitus without complication Historical - Any problem that you are [...] choosing us for your care. Education Materials Kidney Stones Kidney stones are rock-like masses that form inside of the kidneys. Kidneys are organs that make pee (urine). A kidney stone may move into other parts of the urinary tract, including: ??? The tubes that connect the kidneys to the bladder (ureters). ??? The bladder. (more content not included)... Normal [facility] Ambulatory Visit Summaryon 1 Ambulatory Visit Summary [...] Yovany AKHTAR MD Where: [facility] [address] 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 (more content not included)... Normal [facility] Urology Office/Clinic Noteon 06-11-2024 Urology Office/Clinic Note [...] KUB was read as negative at the [facility] but to my review there may be tiny fragments perhaps on both sides measuring 1 to 2 mm. It is a difficult read secondary to overlying bowel gas and stool. Follow-up 1 year with KUB. He does want a proceed with a 24-hour urine and metabolic workup. KUB ordered, blood work ordered, 24-hour urine ordered, urinalysis reviewed. Follow-up With When Contact Information GIOVANA CANTOR, Yovany P, URL [address] [facility] [address] [place], [place] [id number]- Additional Instructions: 1 yr with KUB and [...] with voice recognition artificial intelligence software, specifically [employer], [employer] and or [email or web address]. Substitutions may have occurred due to the inherent limitations of voice recognition and artificial intelligence software. 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 Normal [facility] Comment on above: Result Comment: Elec tronically Signed By: Yovany AKHTAR MD P\.br\Date and Time Signed: 06/11/24 08:42 EDT\.br\Electronically Co-Signed By: Aurora Nix P\.br\Date and Time Co-Signed: 06/11/24 08:30 EDT\.br\Electronically Co-Signed By: Aurora Nix P\.br\Date and Time Co-Signed: 06/11/24 08:31 EDT XR [...] by: MANSOOR LIMA Date: 2022-06-16 18:56 Normal [facility] XR KUB 1 VIEWon 06-09-2022 XR KUB [...] by: MANSOOR LIMA Date: 2022-06-09 17:41 Normal [facility] CBC AUTO DIFFon 05-29-2022 BASO # 0.1 103/ul Normal 0.0-0.1 [facility] Comment on above: Performed By: #### C BC ####[facility] [address] [place] [id number]. Wyatt Aldrich Basophils/100 WBC (Bld) 0.2 % Normal 0.2-2.0 [facility] Comment on above: Performed By: #### C BC ####[facility] [address] [place] [id number]. Wyatt Aldrich EO # 0.0 103/ul Normal 0.0-0.7 [facility] Comment on above: Performed By: #### C BC ####[facility] [address] [place], [place] [address]Dr. Wyatt Aldrich Eosinophils/100 WBC (Bld) 0.2 % Critically low 0.9-7.0 [facility] Comment on above: Performed By: #### C BC ####[facility] [address] [place], [place] [address]Dr. Wyatt Aldrich Erythrocyte distribution width (RBC) [Ratio] 12.3 % Normal 11.0-15.0 [facility] Comment on above: Performed By: #### C BC ####[facility] [address] [place], [place] [address]Dr. Wyatt Aldrich Hematocrit (Bld) [Volume fraction] 45.9 % Normal 42.0-54.0 [facility] Comment on above: Performed By: #### C BC ####[facility] [address] [place] [id number]. Wyatt Aldrich Hemoglobin (Bld) [Mass/Vol] 15.2 g/dL Normal 14.0-18.0 [facility] Comment on above: Performed By: #### C BC ####[facility] [address] [place] [address]Dr. Wyatt Aldrich IG # 0.09 10e3/ul Critically high 0.00-0.03 [facility] Comment on above: Performed By: #### C BC ####[facility] [address] [place], [place] [address]Dr. Wyatt Aldrich IG % 0.4 % Normal 0.0-0.5 [facility] Comment on above: Performed By: #### C BC ####[facility] [address] [place], [place] [address]Ft. Wyatt Aldrich LYMPH # 1.1 103/ul Critically low 1.2-3.8 [facility] Comment on above: Performed By: #### C BC ####[facility] [address] [place], [place] [address]Mo. Wyatt Aldrich Lymphocytes/100 WBC (Bld) 5.1 % Critically low 20.5-60.0 [facility] Comment on above: Performed By: #### C BC ####[facility] [address] [place] [id number]. Jossielalo Aldrich MANUAL DIFF REQ NO Normal [facility] Comment on above: Performed By: #### C BC ####[facility] [address] [place] [id number]. Wyatt Valdemar MCH (RBC) [Entitic mass] 30.2 pg Normal 25.9-34.0 [facility] Comment on above: Performed By: #### C BC ####[facility] [address] [place] [id number]. Wyatt Aldrich MCHC (RBC) [Mass/Vol] 33.1 g/dL Normal 29.9-35.2 [facility] Comment on above: Performed By: #### C BC ####[facility] [address] [place] [id number]. Wyatt Valdemar MCV (RBC) [Entitic vol] 91.3 fL Normal 80.0-94.0 [facility] Comment on above: Performed By: #### C BC ####[facility] [address] [place] [id number]. Wyatt Valdemar MONO # 1.4 103/ul Critically high 0.3-0.8 [facility] Comment on above: Performed By: #### C BC ####[facility] [address] [place] [id number]. Wyatt Valdemar Monocytes/100 WBC (Bld) 6.7 % Normal 1.7-12.0 [facility] Comment on above: Performed By: #### C BC ####[facility] [address] [place], [place] [address]Lm. Wyatt Aldrich NEUT # 18.5 103/ul Critically high 1.4-6.5 [facility] Comment on above: Performed By: #### C BC ####[facility] [address] [place] [id number]. Wyatt Aldrich Neutrophils/100 WBC (Bld) 87.4 % Critically high 43.0-75.0 [facility] Comment on above: Performed By: #### C BC ####[facility] [address] [place] [id number]. Wyatt Aldrich Platelet mean volume (Bld) [Entitic vol] 9.3 fL Critically low 9.5-13.5 [facility] Comment on above: Performed By: #### C BC ####[facility] [address] [place] [id number]. Wyatt Aldrich PLT 303 103/ul Normal 150-450 [facility] Comment on above: Performed By: #### C BC ####[facility] [address] [place] [id number]. Wyatt Aldrich RBC 5.03 106/ul Normal 4.70-6.10 [facility] Comment on above: Performed By: #### C BC ####[facility] [address] [place] [id number]. Wyatt Aldrich WBC 21.2 103/ul Critically high 4.0-11.0 [facility] Comment on above: Performed By: #### C BC ####[facility] [address] [place], [place] [id number]. Wyatt Aldrich CT ABD/PELVIS WO CONon 05-29 [...] by: BOO GUZMAN Date: 2022-05-29 17:32 Normal [facility] ER URINE PROFILEon 2 Bilirubin Ql (U) Negative Normal NEGATIVE [facility] Comment on above: Performed By: #### U MICRO, ERUR #### [facility] [address] [address] [address] Wyatt Aldrich Clarity (U) CLEAR Normal CLEAR [facility] Comment on above: Performed By: #### U MICRO, ERUR #### [facility] [address] [address] [address] Wyatt Aldrich Color (U) LT. YELLOW Normal YELLOW [facility] Comment on above: Performed By: #### U MICRO, ERUR #### [facility] [address] [address] [address] Wyatt Aldrich ERUAHD A micrscopic examina tion will be performed if indicated. Normal [facility] Comment on above: Performed By: #### U MICRO, ERUR #### [facility] [address] [address] [address] Wyatt Aldrich Glucose Ql (U) Negative Normal NEGATIVE [facility] Comment on above: Performed By: #### U MICRO, ERUR #### [facility] [address] [address] [address] Wyatt Aldrich Hemoglobin Ql (U) TRACE-INTACT Abnormal NEGATIVE [facility] Comment on above: Performed By: #### U MICRO, ERUR #### [facility] [address] [address] [address] Wyatt Aldrich Ketones Ql (U) Negative Normal NEGATIVE [facility] Comment on above: Performed By: #### U MICRO, ERUR #### [facility] [address] [address] [address] Wyatt Aldrich LEUKOCYTES Negative Normal NEGATIVE [facility] Comment on above: Performed By: #### U MICRO, ERUR #### [facility] [address] [address] [address] Wyatt Aldrich Nitrite Ql (U) Negative Normal NEGATIVE [facility] Comment on above: Performed By: #### U MICRO, ERUR #### [facility] [address] [place] [address] Dr. Wyatt Aldrich pH (U) 7.0 [pH] Normal 5-9 [facility] Comment on above: Performed By: #### U MICRO, ERUR #### [facility] [address] [address] [address] Wyatt Aldrich SPEC GRAVITY 1.020 Normal 1.005-<=1.025 [facility] Comment on above: Performed By: #### U MICRO, ERUR #### [facility] [address] [place] [address] Dr. Wyatt Aldrich UA PROTEIN Negative Normal NEGATIVE/ TRACE [facility] Comment on above: Performed By: #### U MICRO, ERUR #### [facility] [address] [address] [address] Wyatt Aldrich UR MICRO IND INDICATED Normal [facility] Comment on above: Performed By: #### U MICRO, ERUR #### [facility] [address] [address] [address] Wyatt Aldrich Urobilinogen Qn (U) 0.2 {Sharon'U}/dL Normal 0.2 - 1. 0 [facility] Comment on above: Performed By: #### U MICRO, ERUR #### [facility] [address] [place] [address] Dr. Wyatt Aldrich PROF 14(COMP METB)on 022 Albumin [Mass/Vol] 3.9 g/dL Normal 3.4-5.0 [facility] Comment on above: Performed By: #### C MP #### [facility] [address] [place] [address] Dr. Wyatt Aldrich Albumin/Globulin [Mass ratio] 1.1 {ratio} Normal [facility] Comment on above: Performed By: #### C MP #### [facility] [address] [address] [address] Wyatt Aldrich ALP [Catalytic activity/Vol] 70 U/L Normal 46-116 [facility] Comment on above: Performed By: #### C MP #### [facility] [address] [place] [address] Dr. Wyatt Aldrich ALT [Catalytic activity/Vol] 38 U/L Normal 16-63 [facility] Comment on above: Performed By: #### C MP #### [facility] [address] [place] [address] Dr. Wyatt Aldrich Anion gap [Moles/Vol] 12.6 mmol/L Normal [facility] Comment on above: Performed By: #### C MP #### [facility] [address] [place] [address] Dr. Wyatt Aldrich AST [Catalytic activity/Vol] 20 U/L Normal 15-37 [facility] Comment on above: Performed By: #### C MP #### [facility] [address] [place] [address] Dr. Wyatt Aldrich Bilirubin [Mass/Vol] 0.6 mg/dL Normal 0.2-1.0 [facility] Comment on above: Performed By: #### C MP #### [facility] [address] [place] [address] Dr. Wyatt Aldrich Calcium [Mass/Vol] 8.7 mg/dL Normal 8.5-10.1 [facility] Comment on above: Performed By: #### C MP #### [facility] [address] [place] [address] Dr. Wyatt Aldrich Chloride [Moles/Vol] 95 mmol/L Critically low 98-107 [facility] Comment on above: Performed By: #### C MP #### [facility] [address] [address] [address] Wyatt Aldrich CO2 [Moles/Vol] 29.9 mmol/L Normal 21.0-32.0 [facility] Comment on above: Performed By: #### C MP #### [facility] [address] [address] [address] Wyatt Aldrich Creatinine [Mass/Vol] 1.04 mg/dL Normal 0.70-1.30 [facility] Comment on above: Performed By: #### C MP #### [facility] [address] [address] [address] Wyatt Aldrich EGFR-AF MOZAMBICAN >60 Normal >=60 [facility] Comment on above: Performed By: #### C MP #### [facility] [address] [address] [address] Wyatt Aldrich EGFR-NON AF MOZAMBICAN >60 Normal >=60 [facility] Comment on above: Performed By: #### C MP #### [facility] [address] [address] [address] Wyatt Aldrich Globulin (S) [Mass/Vol] 3.4 g/dL Normal [facility] Comment on above: Performed By: #### C MP #### [facility] [address] [address] [address] Wyatt Aldrich Glucose [Mass/Vol] 148 mg/dL Critically high 74-106 [facility] Comment on above: Performed By: #### C MP #### [facility] [address] [address] [address] Wyatt Aldrich Potassium [Moles/Vol] 4.5 mmol/L Normal 3.5-5.1 [facility] Comment on above: Performed By: #### C MP #### [facility] [address] [address] [address] Wyatt Aldrich Protein [Mass/Vol] 7.3 g/dL Normal 6.4-8.2 [facility] Comment on above: Performed By: #### C MP #### [facility] [address] [address] [address] Wyatt Aldrich Sodium [Moles/Vol] 133 mmol/L Critically low 136-145 [facility] Comment on above: Performed By: #### C MP #### [facility] [address] [address] [address] Wyatt Aldrich Urea nitrogen [Mass/Vol] 15.0 mg/dL Normal 7.0-18.0 [facility] Comment on above: Performed By: #### C MP #### [facility] [address] [address] [address] Waytt Aldrich Urea nitrogen/Creatinine [Mass ratio] 14.4 mg/mg Normal [facility] Comment on above: Performed By: #### C MP #### [facility] [address] [place] [address] Dr. Wyatt Aldrich URINE MICROSCOPIC ONLYon BACTERIA NONE SEEN Normal NONE SEEN [facility] Comment on above: Performed By: #### U MICRO, ERUR #### [facility] [address] [place] [address] Dr. Wyatt Aldrich Bacteria identified Cx Nom (U) NOT INDICATED Normal [facility] Comment on above: Performed By: #### U MICRO, ERUR #### [facility] [address] [place] [address] Dr. Wyatt Aldrich CAST NONE SEEN Normal NONE SEEN [facility] Comment on above: Performed By: #### U MICRO, ERUR #### [facility] [address] [place] [address] Dr. Wyatt Aldrich Crystals LM Nom (Urine sed) NONE SEEN Normal NONE SEEN [facility] Comment on above: Performed By: #### U MICRO, ERUR #### [facility] [address] [place] [address] Dr. Wyatt Aldrich Epithelial cells LM Ql (Urine sed) NONE SEEN Normal NONE SEEN /RARE [facility] Comment on above: Performed By: #### U MICRO, ERUR #### [facility] [address] [place] [address] Dr. Wyatt Aldrich MUCOUS NONE SEEN Normal NONE SEEN [facility] Comment on above: Performed By: #### U MICRO, ERUR #### [facility] [address] [address] [address] Wyatt Aldrich RBC 2-5 Abnormal 0-2 [facility] Comment on above: Performed By: #### U MICRO, ERUR #### [facility] [address] [address] [address] Wyatt Aldrich WBC NONE SEEN Normal NONE SEEN [facility] Comment on above: Performed By: #### U MICRO, ERUR #### [facility] [address] [address] [address] Wyatt Aldrich T4 LABCORPon 01-29-2022 T4 [Mass/Vol] 9.1 ug/dL Normal 4.5-12.0 [facility] Comment on above: Performed By: #### T 4LC ####[facility] [address] [address]Dr. Wyatt Aldrich CBC AUTO DIFFon 01-28-2022 BASO # 0.1 103/ul Normal 0.0-0.1 [facility] Comment on above: Performed By: #### C BC ####[facility] [address] [address]DrCullen Aldrich Basophils/100 WBC (Bld) 0.6 % Normal 0.2-2.0 [facility] Comment on above: Performed By: #### C BC ####[facility] [address] [address]Dr. Wyatt Aldrich EO # 0.2 103/ul Normal 0.0-0.7 [facility] Comment on above: Performed By: #### C BC ####[facility] [address] [address]DrCullen Aldrich Eosinophils/100 WBC (Bld) 2.4 % Normal 0.9-7.0 [facility] Comment on above: Performed By: #### C BC ####[facility] [address] [address]DrCullen Aldrich Erythrocyte distribution width (RBC) [Ratio] 12.5 % Normal 11.0-15.0 [facility] Comment on above: Performed By: #### C BC ####[facility] [address] [address]Dr. Wyatt Aldrich Hematocrit (Bld) [Volume fraction] 43.5 % Normal 42.0-54.0 [facility] Comment on above: Performed By: #### C BC ####[facility] [address] [address]Dr. Wyatt Aldrich Hemoglobin (Bld) [Mass/Vol] 14.4 g/dL Normal 14.0-18.0 [facility] Comment on above: Performed By: #### C BC ####[facility] [address] [place], [place] [address]Dr. Wyatt Aldrich IG # 0.03 10e3/ul Normal 0.00-0.03 [facility] Comment on above: Performed By: #### C BC ####[facility] [address] [place], [place] [address]Dr. Wyatt Aldrich IG % 0.4 % Normal 0.0-0.5 [facility] Comment on above: Performed By: #### C BC ####[facility] [address] [place], [place] [address]Dr. Wyatt Aldrich LYMPH # 2.1 103/ul Normal 1.2-3.8 [facility] Comment on above: Performed By: #### C BC ####[facility] [address] [place], [place] [address]Dr. Wyatt Aldrich Lymphocytes/100 WBC (Bld) 24.8 % Normal 20.5-60.0 [facility] Comment on above: Performed By: #### C BC ####[facility] [address] [place], [place] [address]Dr. Wyatt Aldrich MANUAL DIFF REQ NO Normal [facility] Comment on above: Performed By: #### C BC ####[facility] [address] [address]Dr. Wyatt Aldrich MCH (RBC) [Entitic mass] 30.6 pg Normal 25.9-34.0 [facility] Comment on above: Performed By: #### C BC ####[facility] [address] [address]Dr. Jossielalo Valdemar MCHC (RBC) [Mass/Vol] 33.1 g/dL Normal 29.9-35.2 [facility] Comment on above: Performed By: #### C BC ####[facility] [address] [address]Dr. Wyatt Aldrich MCV (RBC) [Entitic vol] 92.6 fL Normal 80.0-94.0 [facility] Comment on above: Performed By: #### C BC ####[facility] [address] [place], [place] [address]DrCullen Aldrich MONO # 0.6 103/ul Normal 0.3-0.8 [facility] Comment on above: Performed By: #### C BC ####[facility] [address] [place], [place] [address]Dr. Wyatt Aldrich Monocytes/100 WBC (Bld) 7.7 % Normal 1.7-12.0 [facility] Comment on above: Performed By: #### C BC ####[facility] [address] [place], [place] [address]Dr. Wyatt Aldrich NEUT # 5.3 103/ul Normal 1.4-6.5 [facility] Comment on above: Performed By: #### C BC ####[facility] [address] [place], [place] [address]Dr. Wyatt Aldrich Neutrophils/100 WBC (Bld) 64.1 % Normal 43.0-75.0 [facility] Comment on above: Performed By: #### C BC ####[facility] [address] [place], [place] [address]DrCullen Aldrich Platelet mean volume (Bld) [Entitic vol] 9.4 fL Critically low 9.5-13.5 [facility] Comment on above: Performed By: #### C BC ####[facility] [address] [place], [place] [address]Dr. Wyatt Aldrich PLT 280 103/ul Normal 150-450 [facility] Comment on above: Performed By: #### C BC ####[facility] [address] [id number] Aldrich RBC 4.70 106/ul Normal 4.70-6.10 [facility] Comment on above: Performed By: #### C BC ####[facility] [address] [id number] Aldrich WBC 8.3 103/ul Normal 4.0-11.0 [facility] Comment on above: Performed By: #### C BC ####[facility] [address] [address]DrCullen Aldrich FREE T3on 01-28-2022 FREE T3 2.70 pg/mlL Normal 2.18-3.98 [facility] Comment on above: Performed By: #### L IPID, CMP, TSH, FT3 ####[facility] [address] [address]Dr. Wyatt Aldrich GLYCOHEMOGLOBIN A1Con 2021 ADA RECOMMENDATION SEE BELOW Normal [facility] Comment on above: Result Comment: ADA RECOMMENDED LIMIT 4.0 - 6.0 ADA THERAPEUTIC TARGET < 7.0 ACTION SUGGESTED > 7.0 Performed By: #### A 1C #### [facility] [address] [address] [address] Wyatt Aldrich Glucose [Mass/Vol] 143 mg/dL Normal [facility] Comment on above: Performed By: #### A 1C #### [facility] [address] [address] [address] Wyatt Aldrich HbA1c (Bld) [Mass fraction] 6.6 % Critically high 4.5-6.2 [facility] Comment on above: Performed By: #### A 1C #### [facility] [address] [address] [address] Wyatt Aldrich LIPID PROFILEon 01-28-2022 CHOL-HDL RATIO NORM SEE BELOW Normal [facility] Comment on above: Result Comment: 3.3 - 4.4 LOW RISK 4.4 - 7.1 AVERAGE RISK 7.1 - 11.0 MODERATE RISK >11.0 HIGH RISK Performed By: #### L IPID, CMP, TSH, FT3 ####[facility] [address] [address]Dr. Wyatt Aldrich Cholesterol [Mass/Vol] 176 mg/dL Normal <=200 [facility] Comment on above: Performed By: #### L IPID, CMP, TSH, FT3 ####[facility] [address] [address]Dr. Wyatt Aldrich Cholesterol in HDL [Mass/Vol] 35 mg/dL Critically low 40-60 [facility] Comment on above: Performed By: #### L IPID, CMP, TSH, FT3 ####[facility] [address] [place], [place] [address]Dr. Wyatt Aldrich Cholesterol in LDL [Mass/Vol] 94.4 mg/dL Normal [facility] Comment on above: Performed By: #### L IPID, CMP, TSH, FT3 ####[facility] [address] [address]Dr. Wyatt Aldrich Cholesterol.total/Ch olesterol in HDL [Mass ratio] 5.0 {ratio} Normal [facility] Comment on above: Performed By: #### L IPID, CMP, TSH, FT3 ####[facility] [address] [address]Dr. Wyatt Aldrich HDL NORMAL > or = 60 mg/dl - LO W CARDIOVASCULAR RISK <40 mg/dl - HIGH CARDIOVASCULAR RISK Normal [facility] Comment on above: Performed By: #### L IPID, CMP, TSH, FT3 ####[facility] [address] [address]Dr. Jossielalo Aldrich LDL CALC NORMAL SEE BELOW Normal [facility] Comment on above: Result Comment: <100 mg/dl OPTIMAL 100 - 129 mg/dl NEAR OR ABOVE OPTIMAL 130 - 159 mg/dl BORDERLINE HIGH 160 - 189 mg/dl HIGH >190 mg/dl VERY HIGH Performed By: #### L IPID, CMP, TSH, FT3 ####[facility] [address] [place], [place] [address]Dr. Wyatt Aldrich Triglyceride [Mass/Vol] 233 mg/dL Critically high <=150 [facility] Comment on above: Performed By: #### L IPID, CMP, TSH, FT3 ####[facility] [address] [id number]. Wyatt Aldrich VLDL CALC 46.6 mg/dL Normal [facility] Comment on above: Performed By: #### L IPID, CMP, TSH, FT3 ####[facility] [address] [id number]. Wyatt Aldrich OCC BLD IMMUNO SCREENon 01-03 OCCULT BLOOD Negative Normal NEGATIVE [facility] Comment on above: Performed By: #### O BSCRN #### [facility] [address] [address] [address] Wyatt Aldrich PROF 14(COMP METB)on 022 Albumin [Mass/Vol] 3.4 g/dL Normal 3.4-5.0 [facility] Comment on above: Performed By: #### L IPID, CMP, TSH, FT3 ####[facility] [address] [id number]. Wyatt Aldrich Albumin/Globulin [Mass ratio] 1.0 {ratio} Normal [facility] Comment on above: Performed By: #### L IPID, CMP, TSH, FT3 ####[facility] [address] [id number]. Wyatt Aldrich ALP [Catalytic activity/Vol] 65 U/L Normal 46-116 [facility] Comment on above: Performed By: #### L IPID, CMP, TSH, FT3 ####[facility] [address] [id number]. Wyatt Aldrich ALT [Catalytic activity/Vol] 45 U/L Normal 16-63 [facility] Comment on above: Performed By: #### L IPID, CMP, TSH, FT3 ####[facility] [address] [id number] Aldrich Anion gap [Moles/Vol] 9.7 mmol/L Normal [facility] Comment on above: Performed By: #### L IPID, CMP, TSH, FT3 ####[facility] [address] [address]Dr. Wyatt Aldrich AST [Catalytic activity/Vol] 20 U/L Normal 15-37 [facility] Comment on above: Performed By: #### L IPID, CMP, TSH, FT3 ####[facility] [address] [address]Dr. Wyatt Aldrich Bilirubin [Mass/Vol] 0.4 mg/dL Normal 0.2-1.0 [facility] Comment on above: Performed By: #### L IPID, CMP, TSH, FT3 ####[facility] [address] [place], [place] [address]Dr. Wyatt Aldrich Calcium [Mass/Vol] 8.5 mg/dL Normal 8.5-10.1 [facility] Comment on above: Performed By: #### L IPID, CMP, TSH, FT3 ####[facility] [address] [place], [place] [address]Dr. Wyatt Aldrich Chloride [Moles/Vol] 101 mmol/L Normal 98-107 [facility] Comment on above: Performed By: #### L IPID, CMP, TSH, FT3 ####[facility] [address] [place], [place] [address]Dr. Wyatt Aldrich CO2 [Moles/Vol] 33.3 mmol/L Critically high 21.0-32.0 [facility] Comment on above: Performed By: #### L IPID, CMP, TSH, FT3 ####[facility] [address] [place], [place] [address]Dr. Wyatt Aldrich Creatinine [Mass/Vol] 0.77 mg/dL Normal 0.70-1.30 [facility] Comment on above: Performed By: #### L IPID, CMP, TSH, FT3 ####[facility] [address] [address]Dr. Wyatt Aldrich EGFR-AF MOZAMBICAN >60 Normal >=60 [facility] Comment on above: Performed By: #### L IPID, CMP, TSH, FT3 ####[facility] [address] [address]Dr. Wyatt Aldrich EGFR-NON AF MOZAMBICAN >60 Normal >=60 [facility] Comment on above: Performed By: #### L IPID, CMP, TSH, FT3 ####[facility] [address] [address]Dr. Wyatt Aldrich Globulin (S) [Mass/Vol] 3.3 g/dL Normal [facility] Comment on above: Performed By: #### L IPID, CMP, TSH, FT3 ####[facility] [address] [address]Dr. Wyatt Aldrich Glucose [Mass/Vol] 137 mg/dL Critically high 74-106 T [facility] Comment on above: Performed By: #### L IPID, CMP, TSH, FT3 ####[facility] [address] [place], [place] [address]Dr. Wyatt Aldrich Potassium [Moles/Vol] 4.0 mmol/L Normal 3.5-5.1 [facility] Comment on above: Performed By: #### L IPID, CMP, TSH, FT3 ####[facility] [address] [place], [place] [address]Dr. Wyatt Aldrich Protein [Mass/Vol] 6.7 g/dL Normal 6.4-8.2 [facility] Comment on above: Performed By: #### L IPID, CMP, TSH, FT3 ####[facility] [address] [address]Dr. Wyatt Aldrich Sodium [Moles/Vol] 140 mmol/L Normal 136-145 [facility] Comment on above: Performed By: #### L IPID, CMP, TSH, FT3 ####[facility] [address] [address]Dr. Wyatt Aldrich Urea nitrogen [Mass/Vol] 13.0 mg/dL Normal 7.0-18.0 [facility] Comment on above: Performed By: #### L IPID, CMP, TSH, FT3 ####[facility] [address] [place], [place] [address]Ak. Wyatt Aldrich Urea nitrogen/Creatinine [Mass ratio] 16.9 mg/mg Normal [facility] Comment on above: Performed By: #### L IPID, CMP, TSH, FT3 ####[facility] [address] [place], [place] [address]Oa. Wyatt Aldrich TSHon 01-28-2022 TSH 5.562 uIU/mL Critically high 0.358-3.740 [facility] Comment on above: Performed By: #### L IPID, CMP, TSH, FT3 ####[facility] [address] [id number]. Wyatt Aldrich TSH RANGE SEE BELOW Normal [facility] Comment on above: Result Comment: <0.3 4 UIU/ml HYPERTHYROID 0.34-5.60 UIU/ml EUTHYROID >5.60 UIU/ml HYPOTHYROID Performed By: #### L IPID, CMP, TSH, FT3 ####[facility] [address] [place], [place] [address]Ci. Wyatt Aldrich XR KUB 1 VIEWon 01-20-2022 [...] MANSOOR LIMA Date: 2022-01-20 14:12 Normal [facility] MRI LSPINE WO W CONon 2021 [...] by: TANISHA CHIU Date: 2021-10-04 11:23 Normal [facility] XR LSPINE MIN 4 VIEWSon 09-05 [...] by: SOLO SAVAGE Date: 2021-09-27 11:31 Normal [facility] Vital Signs Date Time Vital Sign Value Performing Clinician Jessi chowdhury 09-10-2024 09:50-0500 Diastolic blood pressure 78 mm[Hg] Zena Orzech [facility] 09-10-2024 09:50-0500 Mean blood pressure 99 mm[Hg] Zena Orzech [facility] 09-10-2024 09:50-0500 Systolic blood pressure 140 mm[Hg] Zena Orzech [facility] 09-10-2024 09:27-0500 Blood Pressure Location Zena Orzech [facility] 09-10-2024 09:27-0500 Body temperature 98.6 [degF] Zena Orzech [facility] 09-10-2024 09:27-0500 Diastolic blood pressure 96 mm[Hg] Zena Orzech [facility] 09-10-2024 09:27-0500 Heart rate 69 /min Zena Orzech [facility] 09-10-2024 09:27-0500 Systolic blood pressure 190 mm[Hg] Zena Orzech [facility] 06-11-2024 08:19-0400 Blood Pressure Location Yovany AKHTAR [facility] 06-11-2024 08:19-0400 Diastolic blood pressure 111 mm[Hg] Yovany AKHTAR [facility] 06-11-2024 08:19-0400 Heart rate 71 /min Yovany COOK [facility] 06-11-2024 08:19-0400 Systolic blood pressure 190 mm[Hg] Yovany COOK [facility] 06-06-2023 08:48-0400 Blood Pressure Location Yovany COOK [facility] 06-06-2023 08:48-0400 Diastolic blood pressure 66 mm[Hg] Yovany COOK [facility] 06-06-2023 08:48-0400 Heart rate 83 /min Yovany COOK [facility] 06-06-2023 08:48-0400 Systolic blood pressure 142 mm[Hg] Yovany COOK [facility] 06-17-2022 09:14-0400 Blood Pressure Location Yovany COOK [facility] 06-17-2022 09:14-0400 Diastolic blood pressure 96 mm[Hg] Yovany COOK [facility] 06-17-2022 09:14-0400 Heart rate 67 /min Yovany COOK [facility] 06-17-2022 09:14-0400 Systolic blood pressure 159 mm[Hg] Yovany COOK [facility] 06-10-2022 09:54-0400 Blood Pressure Location Yovany COOK [facility] 06-10-2022 09:54-0400 Diastolic blood pressure 102 mm[Hg] Yovany AKHTAR [facility] 06-10-2022 09:54-0400 Heart rate 68 /min Yovany AKHTAR [facility] 06-10-2022 09:54-0400 Systolic blood pressure 166 mm[Hg] Yovany AKHTAR [facility] 01-21-2022 08:44-0400 Blood Pressure Location Yovany AKHTAR [facility] 01-21-2022 08:44-0400 Diastolic blood pressure 87 mm[Hg] Yovany AKHTAR [facility] 01-21-2022 08:44-0400 Heart rate 72 /min Yovany AKHTAR [facility] 01-21-2022 08:44-0400 Systolic blood pressure 140 mm[Hg] Yovany AKHTAR [facility] Encounters Encounter Date Encounter Type Care Provider Facility Start: 09-10-2024 End: 09-10-2024 ambulatory Zena X Sole Facility:[facility] Start: 09-10-2024 End: 09-10-2024 Patient encounter procedure Zena X Orzech [facility] Start: 06-11-2024 End: 06-11-2024 ambulatory Yovany AKHTAR Facility:[facility] Start: 06-11-2024 End: 06-11-2024 Patient encounter procedure Yovany AKHTAR [facility] Start: 06-10-2024 End: 06-10-2024 ambulatory Heather Turcios MD Facility:[facility] Start: 02-19-2024 End: 02-19-2024 ambulatory Heather Turcios MD Facility:[facility] Start: 02-05-2024 End: 02-05-2024 ambulatory Heather Turcios MD Facility:[facility] Start: 12-25-2023 End: 12-25-2023 ambulatory MICHAEL KIM Not Available Start: 12-21-2023 End: 12-21-2023 ambulatory BALTA OTTO Not Available Start: 12-19-2023 End: 12-19-2023 ambulatory MICHAEL KIM Not Available Start: 06-06-2023 End: 06-06-2023 Patient encounter procedure Yovany AKHTAR [facility] Start: 06-17-2022 End: 06-17-2022 Patient encounter procedure Yovany AKHTAR [facility] Start: 06-16-2022 End: 06-17-[address] NANCY FERNANDEZ Facility:[facility] Start: 06-10-2022 End: 06-10-2022 Patient encounter procedure Yovany AKHTAR [facility] Start: 06-09-2022 End: 06-10-[address] NANCY FERNANDEZ Facility:[facility] Start: 05-29-2022 End: 05-29-[address] NANCY FERNANDEZ Facility:[facility] Start: 05-11-2022 End: 05-11-2022 Patient encounter procedure Yovany AKHTAR [facility] Start: 02-03-2022 Encounter for genera l adult medical examination without abnormal findings DR NANCY FERNANDEZ [facility] Start: 01-28-2022 End: 01-29-[address] NANCY FERNANDEZ Facility:[facility] Start: 01-28-2022 End: 01-29-2022 Encounter for general adult medical examination without abnormal findings DR NANCY FERNANDEZ Facility:[facility] Start: 01-21-2022 End: 01-21-2022 Patient encounter procedure Yovany AKHTAR [facility] Start: 01-20-2022 End: [...] on above: Performed By: #### P SAD ####[place] [id number]. Wyatt Aldrich Start: 08-13-2020 Extracorporeal shock wave lithotripsy of calculus of kidney Yovanykourtney AKHTAR Dental surgical procedure Gr poncho AKHTAR Entire gallbladder ( body structure) Yovany AKHTAR History of tonsillectomy Mitul viviana AKHTAR Kidney stone (disorder) Gee AKHTAR l4 l5 disectomy Yovanykourtney AKHTAR carlo anal abcess Yovany Dowling Repair of anal fistula Marvel AKHTAR Plan of Treatment Date Care Activity Detail Author Start: 06-10-2025 ambulatory Ambulatory Facility:[facility] Immunizations Immunization Date Immunization Notes Care Provider Mica biggs 04-19-2022 zoster vaccine recombinant Yovany AKHTAR [facility] 02-12-2022 pneumococcal 20-maría nt conjugate vaccine Yovany AKHTAR [facility] 02-03-2022 zoster vaccine recombinant Yovany AKHTAR [facility] 12-08-2020 SARS-CoV-2 (COVID-19 ) mRNA-1273 vaccine Yovany AKHTAR [facility] 11-17-2020 SARS-CoV-2 (COVID-19 ) mRNA BNT-162b2 vax Yovany AKHTAR [facility] 11-11-2020 SARS-CoV-2 (COVID-19 ) mRNA-1273 vaccine Yovany AKHTAR [facility] Payers Date Payer Category Payer Unknown 2023 Unknown [id number] 1965 Unknown [id number] 2.16.84 [id number] 1965 Unknown [id number] 2.16.84 0.1.067514.3.579.2.593 1964 Unknown [id number] 2.16.84 0.1.802382.3.579.2.593 1964 Unknown [id number] 2.16.84 0.1.995668.3.579.2.593 1964 Unknown [id number] 2.16.84 0.1.045181.3.579.2.593 1964 Unknown [id number] 2.16.84 0.1.270292.3.579.2.593 1964 Unknown [id number] 2.16.84 0.1.129961.3.579.2.593 1964 Unknown [id number] 2.16.84 0.1.748313.3.579.2.593 1964 Unknown [id number] 2.16.84 0.1.580014.3.579.2.1259 1964 Unknown [id number] 2.16.84 0.1.677557.3.579.2.1259 1964 Unknown [id number] 2.16.84 0.1.391329.3.579.2.1259 1964 Unknown [id number] 2.16. 840.1.804468.3.579.2.196 1964 Unknown [id number] 2.16. 840.1.774845.3.579.2.196 1964 Unknown [id number] 2.16. 840.1.075027.3.579.2.196 1964 Unknown [id number] 2.16.8 40.1.534230.3.579.2.727 1964 Unknown [id number] 2.16.8 40.1.451635.3.579.2.727 1964 Unknown [id number] 2.16.8 40.1.096622.3.579.2.727 1959 Private Health Insurance [id number] Social History Date Type Detail Facility Start: 01-15-2021 End: 09-10-2024 Tobacco smoking status Ex-smoker (finding) [facility] Tobacco smoking status Never [facility] Sex Assigned At Male [facility] Functional Status Date Assessment Result Facility 09-10-2024 Functional Status N/A [facility] 06-11-2024 Functional Status N/A [facility] 06-06-2023 Functional Status N/A [facility] 06-17-2022 Functional Status N/A [facility] 06-10-2022 Functional Status N/A [facility] Clinical Notes 01-21-2022 to 09-10-2024 Laboratory Note Date & Type Note Facility 09-10-2024 Hospital Discharge instructions Patient Education 09/10/2024 09:53:34 Kidney Stones, Qxch-qw-Ifns Kidney Stones Kidney stones are rock-like masses that form inside of the kidneys. Kidneys are organs that make pee (urine). A kidney stone may move into other parts of the urinary tract, including: The tubes that connect the kidneys to the bladder (ureters). The bladder. The tube that carries urine out of the body (urethra). Kidney stones can cause very bad pain and can block the flow of pee. The stone usually leaves your body through your pee. A doctor may need to take out the stone. What are the causes? Kidney stones may be caused by: Too much calcium in the body. This may be caused by too much parathyroid hormone in the blood. Uric acid crystals in the bladder. The body makes uric acid when you eat certain foods. Narrowing of one or both of the ureters. A kidney blockage that you were born with. Past surgery on the kidney or the ureters. What increases the risk? You are more likely to develop this condition if: You have had a kidney stone in the past. Other people in your family have had kidney stones. You do not drink enough water. You eat a diet that is high in protein, salt (sodium), or sugar. You are very overweight (obese). What are the signs or symptoms? Symptoms of a kidney stone may include: Pain in the side of the belly, right below the ribs. Pain usually spreads to the groin. Needing to pee often or right away. Pain when peeing. Blood in your pee. Feeling like you may vomit (nauseous). Vomiting. Fever and chills. How is this treated? Treatment depends on the size, location, and makeup of the kidney stones. The stones will often pass out of the body when you pee. You may need to: Drink more fluid to help pass the stone. ?In some cases, you may be given fluids through an IV tube at the hospital. Take medicine for pain. Change your diet to help keep kidney stones from coming back. Sometimes, you may need: A procedure to break up kidney stones using a beam of light (laser) or shock waves. Surgery to remove the kidney stones. Follow these instructions at home: Medicines Take wnwi-kvn-bjczfkb and prescription medicines only as told by your doctor. Ask your doctor if the medicine prescribed to you requires you to avoid driving or using machinery. Eating and drinking Drink enough fluid to keep your pee pale yellow. ?You may be told to drink at least 8 10 glasses of water each day. This will help you pass the stone. If told by your doctor, change your diet. You may be told to: ?Limit how much salt you eat. ?Eat more fruits and vegetables. ?Limit how much meat, poultry, fish, and eggs you eat. Follow instructions from your doctor about what you may eat and drink. General instructions Collect pee samples as told by your doctor. You may need to collect a pee sample: ?24 hours after a stone comes out. ?8 12 weeks after a stone comes out, and every 6 12 months after that. Strain your pee every time you pee. Use the strainer that your doctor recommends. Do not throw out the stone. Keep it so that it can be tested by your doctor. Keep all follow-up visits. You may need X-rays and ultrasounds to make sure the stone has come out. How is this prevented? To prevent another kidney stone: Drink enough fluid to keep your pee pale yellow. This is the best way to prevent kidney stones. Eat healthy foods. Avoid certain foods as told by your doctor. You may be told to eat less protein. Stay at a healthy weight. Where to find more information National Kidney Foundation (NKF): kidney.org Urology Care Foundation (UCF): urologyhealth.org Contact a doctor if: You have pain that gets worse or does not get better with medicine. Get help right away if: You have a fever or chills. You get very bad pain. You get new pain in your belly. You faint. You cannot pee. This information is not intended to replace advice given to you by your health care provider. Make sure you discuss any questions you have with your health care provider. Document Revised: 04/14/2023 Document Reviewed: 04/14/2023 [employer] Patient Education 2023 [employer]. Follow Up Care 08/15/2024 10:52:33 With:GIOVANA CANTOR, Yovany Kwan, URL Address: [facility] [email or web address] [address] [place] [id number]- When: Unknown [facility] 09-10-2024 Note Patient Education Urology Kidney Stones Kidney stones are rock-like masses that form inside of the kidneys. Kidneys are organs that make pee (urine). A kidney stone may move into other parts of the urinary tract, including: ??? The tubes that connect the kidneys to the bladder (ureters). ??? The bladder. ??? The tube that carries urine out of the body (urethra). Kidney stones can cause very bad pain and can block the flow of pee. The stone usually leaves your body through your pee. A doctor may need to take out the stone. What are the causes? Kidney stones may be caused by: ??? Too much calcium in the body. This may be caused by too much parathyroid hormone in the blood. ??? Uric acid crystals in the bladder. The body makes uric acid when you eat certain foods. ??? Narrowing of one or both of the ureters. ??? A kidney blockage that you were born with. ??? Past surgery on the kidney or the ureters. What increases the risk? You are more likely to develop this condition if: ??? You have had a kidney stone in the past. ??? Other people in your family have had kidney stones. ??? You do not drink enough water. ??? You eat a diet that is high in protein, salt (sodium), or sugar. ??? You are very overweight (obese). What are the signs or symptoms? Symptoms of a kidney stone may include: ??? Pain in the side of the belly, right below the ribs. Pain usually spreads to the groin. ??? Needing to pee often or right away. ??? Pain when peeing. ??? Blood in your pee. ??? Feeling like you may vomit (nauseous). ??? Vomiting. ??? Fever and chills. How is this treated? Treatment depends on the size, location, and makeup of the kidney stones. The stones will often pass out of the body when you pee. You may need to: ??? Drink more fluid to help pass the stone. ? In some cases, you may be given fluids through an IV tube at the hospital. ??? Take medicine for pain. ??? Change your diet to help keep kidney stones from coming back. Sometimes, you may need: ??? A procedure to break up kidney stones using a beam of light (laser) or shock waves. ??? Surgery to remove the kidney stones. Follow these instructions at home: Medicines ??? Take pwki-ibf-ptepoqf and prescription medicines only as told by your doctor. ??? Ask your doctor if the medicine prescribed to you requires you to avoid driving or using machinery. Eating and drinking ??? Drink enough fluid to keep your pee pale yellow. ? You may be told to drink at least 8?10 glasses of water each day. This will help you pass the stone. ??? If told by your doctor, change your diet. You may be told to: ? Limit how much salt you eat. ? Eat more fruits and vegetables. ? Limit how much meat, poultry, fish, and eggs you eat. ??? Follow instructions from your doctor about what you may eat and drink. General instructions ??? Collect pee samples as told by your doctor. You may need to collect a pee sample: ? 24 hours after a stone comes out. ? 8?12 weeks after a stone comes out, and every 6?12 months after that. ??? Strain your pee every time you pee. Use the strainer that your doctor recommends. ??? Do not throw out the stone. Keep it so that it can be tested by your doctor. ??? Keep all follow-up visits. You may need X-rays and ultrasounds to make sure the stone has come out. How is this prevented? To prevent another kidney stone: ??? Drink enough fluid to keep your pee pale yellow. This is the best way to prevent kidney stones. ??? Eat healthy foods. ??? Avoid certain foods as told by your doctor. You may be told to eat less protein. ??? Stay at a healthy weight. Where to find more information ??? National Kidney Foundation (NKF): kidney.org ??? Urology Care Foundation (UCF): urologyhealth.org Contact a doctor if: ??? You have pain that gets worse or does not get better with medicine. Get help right away if: ??? You have a fever or chills. ??? You get very bad pain. ??? You get new pain in your belly. ??? You faint. ??? You cannot pee. This information is not intended to replace advice given to you by your health care provider. Make sure you discuss any questions you have with your health care provider. Document Revised: 04/14/2023 Document Reviewed: 04/14/2023 [employer] Patient Education ? 2023 [employer]. [facility] 06-11-2024 Hospital Discharge instructions Patient Education 06/11/2024 [...] you may eat and drink normally. Take ehdp-ceo-ikhnswr and prescription medicines only as told by your health care provider. Let your health care provider know about any medicines that you are taking, including igow-aes-qanhsty medicines, vitamins, herbs, and supplements. Choose a [...] provider. Document Revised: 02/25/2022 Document Reviewed: 02/25/2022 [employer] Patient Education 2023 [employer]. 06/11/2024 08:23:10 Dietary Guidelines to Help Prevent [...] include: ?8 oz (237 mL) of milk, sdgzaaz-ushukwzqktoq-ysoqt milk, and calcium-fortifiedfruit juice. Calcium-fortified means that [...] ?Spinach (cooked), rhubarb, beets, sweet potatoes, and Belarusian chard. ?Peanuts. ?Potato chips, wallisian fries, and baked potatoes with skin on. ?Nuts and nut products. ?Chocolate. If you regularly take a diuretic medicine, make sure to eat at least 1 or 2 servings of fruits or vegetables that are high in potassium each day. These include: ?Avocado. ?Banana. ?[place], prune, carrot, or tomato juice. ?Baked potato. [...] magnesium, fish oil, or vitamin B6. Take cnne-gly-jzlocge and prescription medicines only as told by [...] Casseroles. Pizza. Lasagna. Frozen meals. Potato chips. Ecuadorean fries. The items listed above may not [...] provider. Document Revised: 12/01/2022 Document Reviewed: 12/01/2022 [employer] Patient Education 2023 [employer]. Follow Up Care 06/06/2023 09:30:15 With:GIOVANA CANTOR, Yovany Kwan, URL Address: [facility] [email or web address] [place] [id number]- When: Unknown [facility] 06-11-2024 Note Patient Education Nephrology Dietary Guidelines [...] ? 8 oz (237 mL) of milk, krnkoae-prpwezosxayk-pxtgw milk, and calcium-fortifiedfruit juice. Calcium-fortified means that [...] Spinach (cooked), rhubarb, beets, sweet potatoes, and Belarusian chard. ? Peanuts. ? Potato chips, wallisian fries, and baked potatoes with skin on. ? Nuts and nut products. ? Chocolate. ? If you regularly take a diuretic medicine, make sure to eat at least 1 or 2 servings of fruits or vegetables that are high in potassium each day. These include: ? Avocado. ? Banana. ? [place], prune, carrot, or tomato juice. ? Baked [...] fish oil, or vitamin B6. ? Take vaqo-igh-bveeumf and prescription medicines only as told by your health care provider. These include suppleme (more content not included)... [facility] 06-06-2023 Hospital Discharge instructions Patient Education 06/06/2023 [...] include: ?8 oz (237 mL) of milk, ozsdtlk-bijpdwnaosnu-crbie milk, and calcium-fortifiedfruit juice. Calcium-fortified means that [...] ?Spinach (cooked), rhubarb, beets, sweet potatoes, and Belarusian chard. ?Peanuts. ?Potato chips, wallisian fries, and baked potatoes with skin on. ?Nuts and nut products. ?Chocolate. If you regularly take a diuretic medicine, make sure to eat at least 1 or 2 servings of fruits or vegetables that are high in potassium each day. These include: ?Avocado. ?Banana. ?[place], prune, carrot, or tomato juice. ?Baked potato. [...] magnesium, fish oil, or vitamin B6. Take bttz-coq-voehwau and prescription medicines only as told by [...] Casseroles. Pizza. Lasagna. Frozen meals. Potato chips. Ecuadorean fries. The items listed above may not [...] provider. Document Revised: 05/02/2022 Document Reviewed: 05/02/2022 [employer] Patient Education 2022 [employer]. Follow Up Care 01/21/2022 09:03:45 With:GIOVANA CANTOR, Yovany Kwan, URL Address: [facility] [address] [place] [id number]- When:Within 1 Year(s) Comments:Oksana [facility] 06-17-2022 Hospital Discharge instructions [...] include: ?Spinach. ?Rhubarb. ?Beets. ?Potato chips and wallisian fries. ?Nuts. If you regularly take a diuretic medicine, make sure to eat at least 1 2 fruits or vegetables high in potassium each day. These include: ?Avocado. ?Banana. ?[place], prune, carrot, or tomato juice. ?Baked potato. [...] Casseroles. Pizza. Lasagna. Frozen meals. Potato chips. Ecuadorean fries. Summary You can reduce your risk [...] 12/16/2011 Document Revised: 12/11/2019 Document Reviewed: 08/01/2017 [employer] Patient Education 2020 [employer] Follow Up Care 06/10/2022 10:24:22 With:GIOVANA CANTOR, Yovany Kwan, URL Address: [address] [address]- When:6 months Comments:w/ [place] [facility] 06-10-2022 Hospital Discharge instructions Patient Education 06/10/2022 [...] include: ?Spinach. ?Rhubarb. ?Beets. ?Potato chips and wallisian fries. ?Nuts. If you regularly take a diuretic medicine, make sure to eat at least 1 2 fruits or vegetables high in potassium each day. These include: ?Avocado. ?Banana. ?[place], prune, carrot, or tomato juice. ?Baked potato. [...] Casseroles. Pizza. Lasagna. Frozen meals. Potato chips. Ecuadorean fries. Summary You can reduce your risk [...] 12/16/2011 Document Revised: 12/11/2019 Document Reviewed: 08/01/2017 [employer] Patient Education 2020 [employer]. Follow Up Care 05/30/2022 09:25:01 With:GIOVANA CANTOR, Yovany Kwan, URL Address: [address] [place] [id number]- When:2 weeks Comments:KUB [facility] 01-21-2022 Hospital Discharge [...] urethra. Follow these instructions at home: Take tqez-nfz-otuaiue and prescription medicines only as told by [...] 08/21/2006 Document Revised: 07/16/2019 Document Reviewed: 09/25/2017 [employer] Patient Education 2020 [employer]. Follow Up Care 01/15/2021 08:45:48 With:Yovany AKHTAR MD, URL Address: [facility] [employer] [place] [address]- When:01/21/2023 Comments:with PSA and x-ray [facility] Evaluation + Plan note Future Appointments Appointment Date:02/24/2023 08:00:00 AM Scheduled Provider:Yovany AKHTAR MD Location:[facility] Appointment Type:URO Office Visit [facility] Evaluation + Plan note Future Appointments Appointment Date:02/24/2023 08:00:00 AM Scheduled Provider:Yovany AKHTAR MD [facility] Type:[facility]O Office Visit Future Scheduled TestsPT & PTT 04/20/22BUN 04/20/22Creatinine 04/20/22Electrolyte Panel 04/20/22CBC w/ Auto Diff 04/20/22 [facility] Evaluation + Plan note Future Appointments Appointment Date:06/17/2022 09:15:00 AM Scheduled Provider:Yovany AKHTAR MD Location:[facility] Appointment Type:URO Office Visit Appointment Date:02/24/2023 08:00:00 AM Scheduled Provider:Yovany AKHTAR MD Location:[facility] Appointment Type:URO Office Visit [facility] Evaluation + Plan note Future Appointments Appointment Date:06/11/2024 08:00:00 AM Scheduled Provider:Yovany AKHTAR MD Location:[facility] Appointment Type:URO Office Visit [facility] Evaluation + Plan note Future Appointments Appointment Date:06/10/2025 08:00:00 AM Scheduled Provider:Yovany AKHTAR MD Location:[facility] Appointment Type:URO Office Visit [facility] Hospital course Narrative No data available for this section [facility] Hospital Discharge instructions No data available for this section [facility] Progress note No data available for this section [facility] Summary Purpose Family History No Family History Records Found No data available for this section No Family History Records Found No data available for this section No Family History Records Found No data available for this section No Family History Records Found Advance Directives No Advanced Directives Records FoundNo Advanced Directives Records FoundNo Advanced Directives Records FoundNo Advanced Directives Records Found Additional Source Comments Care Team (unrecognized sect ion and content) Personnel Name: Nancy Fernandez MD Address: [address] [place] [address] Personnel Name: Nancy Fernandez MD Address: Address: [address] [place] [address] Personnel Name: Nancy Fernandez MD Address: Address: [address] [place] [address] Personnel Name: Nancy Fernandez MD Address: Address: [address] [place] [address] Personnel Name: Nancy Fernandez MD Address: Address: [address] [place] [address] [place] [address]- Personnel Name: Nancy Fernandez MD Address: Address: [address] [place] [address] [place] [address]- (unrecognized sect ion and content) No Status Records FoundNo Status Records FoundNo Status Records FoundNo Status Records Found INFORMATION SOURCE (unrecogn ized section and content) DATE CREATED AUTHOR 07/07/2022 [facility] DATE CREATED AUTHOR AUTHOR'S ORGANIZ ATION 12/26/2023 [facility] EPIC DATE CREATED AUTHOR AUTHOR'S ORGANIZ ATION 06/19/2024 [facility] DATE CREATED AUTHOR AUTHOR'S ORGANIZ ATION 09/15/2024 [facility] FOR RECORDS PERTAINING TO PATIENTS WHO ARE [...] BE BASED ON THE PRIMARY CLINICAL RECORDS. [employer] provides no warranty or guarantee of the accuracy or completeness of information in this document.
--- NOTE | 2024-09-26 08:34 | P.CN_ITS ---
Consult Note: HPI Data of Consult Patient: known to practice within the last 3 years Requesting Physician: Shilpi Britton NP Primary Care Provider: Asim Fernandez MD Consult Narrative Reason for consult: chronic low back pain, left radiculopathy Narrative: Elvis Hernandez a pleasant 58 year old male presents for assessment of chronic low back pain with left sided radiculopathy. Chronic low back pain greater than 10 years, hx of lumbar discectomy in 2009. Patient recently completed greater than 6 weeks of PT/HEP without improvement, updated lumbar xray and MRI below consistent with degenerative changes as well as multilevel central and foraminal stenosis. Previously reported chronic low back pain and weakness of left leg, pain increasing to 1/10 with standing walking activity. Pain improved with forward flexion and rest. Patient denies loss of bowel/bladder, no falls. Failed to benefit from motrin, meloxicam, celebrex and tylenol. utilizes motrin, baclofen and tramadol as needed for moderate to severe pain with benefit without side effect through PCP. Previously underwent left L3/4 L4/5 TFESI with >50% improvement ongoing cc:: CC: Shilpi Britton NP Review of Systems ROS Status of ROS 10 or more systems reviewed and unremark able except as noted in history and below Musculoskeletal Reports: back pain and joint pain PFSH PFSH Medical History Surgical procedures, elective ?Z41.9 - Encounter for procedure for purposes other than remedying health state, unspecified (ICD-10) Neuropathy ?G62.9 - Polyneuropathy, unspecified (ICD-10) Normal colonoscopy Renal lithiasis ?N20.0 - Calculus of kidney (ICD-10) HTN (hypertension) ?I10 - Essential (primary) hypertension (ICD-10) Hypothyroidism ?E03.9 - Hypothyroidism, unspecified (ICD-10) Diabetes ?E11.9 - Type 2 diabetes mellitus without complications (ICD-10) Traumatic brain injury ?S06.9XAA - Unspecified intracranial injury with loss of consciousness status unknown, initial encounter (ICD-10) MARGE (obstructive sleep apnea) ?G47.33 - Obstructive sleep apnea (adult) (pediatric) (ICD-10) COPD (chronic obstructive pulmonary disease) ?J44.9 - Chronic obstructive pulmonary disease, unspecified (ICD-10) 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 - Acute embolism and thrombosis of superior vena cava (ICD-10) Herniated lumbar intervertebral disc ?M51.26 - Other intervertebral disc displacement, lumbar region (ICD-10) Surgical History Pain management ?R52 - Pain, unspecified (ICD-10) History of cholecystectomy ?Z90.49 - Acquired absence of other specified parts of digestive tract (ICD- 10) History of tonsillectomy ?Z90.89 - Acquired absence of other organs (ICD-10) Hx of lithotripsy ?Z98.890 - Other specified postprocedural states (ICD-10) Hx of lumbar discectomy ?Z98.890 - Other specified postprocedural states (ICD-10) Meds Home Medications and Allergies Home Medications ?Medication ?Instructions ?Recorded ?Confirmed ?Type aspirin 81 mg capsule 81 mg PO DAILY 12/15/23 06/10/24 History carvedilol 25 mg tablet (Coreg) 37.5 mg PO Q12H 12/15/23 06/10/24 History glimepiride 2 mg tablet 2 mg PO DAILY 12/15/23 06/10/24 History hydralazine 50 mg tablet 50 mg PO TID 12/15/23 06/10/24 History hydrochlorothiazide 50 mg tablet 50 mg PO DAILY 12/15/23 06/10/24 History levothyroxine 125 mcg capsule 125 mcg PO DAILY 12/15/23 06/10/24 History metformin 500 mg tablet 500 mg PO BID 12/15/23 06/10/24 History multivitamin 1 tab PO DAILY 12/15/23 06/10/24 History olmesartan 40 mg tablet 40 mg PO DAILY 12/15/23 06/10/24 History pravastatin 20 mg tablet 20 mg PO DAILY 12/15/23 06/10/24 History tramadol 50 mg tablet 50 mg PO QID PRN pain 12/15/23 06/10/24 History Allergies Allergy/AdvReac Type Severity Reaction Status Date / Time No Known Drug Allergies Allergy Verified 06/10/24 07:57 Exam Constitutional Documenting provider has reviewed patient's vital signs: yes Common normals: no apparent distress, oriented x3, healthy appearing, alert and well nourished General appearance: cooperative HENMT Common normals: normocephalic, hearing grossly normal bilaterally and moist oral mucous membranes Head and scalp: normocephalic Eye Common normals: PERRL Pupil: PERRL Neck & C-Spine Common normals: full ROM General: normal visual inspection Chest Common normals: inspection of chest normal Respiratory Common normals: normal respiratory effort, no retractions and no use of accessory muscles Back & Pelvis Lumbar spine/lower back: ROM limited and straight leg raise negative bilaterally; no pain with ROM Sacroiliac joints: SI joints normal Other: strength 5/5 in BLE negative bilateral dave(patricks), gaenslens, thigh thrust, compression test Extremity Common normals: normal to inspection and full ROM Neuro Common normals: oriented x3, CN's II-XII intact bilaterally, moves all extremities, no focal motor deficits, no sensory deficits noted and deep tendon reflexes 2+ bilaterally Sensorium/orientation: alert Motor exam: strength 5/5 throughout and no movement abnormalities noted Psych Common normals: mental status grossly normal, thought process normal, cooperative, affect normal, speech normal and activity/motor behavior normal Speech: normal speech Thought process: normal thought process Results Additional Findings Additional findings: If on a controlled substance or opioids, I have checked an [place] report on this patient and there are no aberrancies noted in the prescribing history.??If on a controlled substance or opioid a drug screen was completed and reviewed within the last year, and if there has not been a drug screen completed we ordered one today to monitor higher risk, state monitored pain medication use. As part of providing excellent, safe, comprehensive care, the following was completed at our patient's visit: 1. A medication reconciliation and review to ensure accurate knowledge of current/active medications, including asking our patients to inform us about any [id number] medications or herbal remedies/nutritional supplements/alternative remedies. 2. A review to specifically ensure our patients have had annual screening for screening for depression, screening for tobacco use, and screening for unhealthy alcohol use. For concerning screenings had a discussion with the patient, provided patient education, and recommended follow-up with primary care provider when appropriate. If patient noted with a risk of falling, they received education on strength, gait, and balance training to prevent future risk of falling. Portions of this note may have been carried over from the previous visit and updated as appropriate. Please note this office utilizes paper charting in addition to the electronic medical record. A list of current medications, vitals, and PMH is available there as the clinical staff outside of myself do not have access to [employer] charting during the clinic day operations. As part of providing quality comprehensive care the current medications, vitals, and PMH were reviewed in the paper chart. Assessment and Plan Assessment and Plan (1) Lumbar stenosis with neurogenic claudication: (2) Post laminectomy syndrome: (3) Myofascial pain: (4) Lumbar facet arthropathy: Plan continue baclofen 10mg HS PRN pain/spasms continue HEP as tolerated f/u 6 months, sooner if needed
== END 2024-09-26 08:15 | disposition home or self-care (01) ==
LOC: PM 08:15
PROVIDERS: PCP Family Medicine; Visit Provider Nurse Practitioner
DX: M48.062 Spinal stenosis, lumbar region with neurogenic claudication (principal); M96.1 Postlaminectomy syndrome, not elsewhere classified; M79.18 Myalgia, other site; M47.816 Spondylosis without myelopathy or radiculopathy, lumbar region
CPT/HCPCS: G0463

== ENCOUNTER 2024-10-16 09:55 | Outpatient (OUT) | payer BC, SELFPAY ==
[2024-10-16 10:35] LABS: Basophils Absolute Auto 0.1 10^3/uL (0.0-0.1); Basophils Percent Auto 0.7 % (0.2-2.0); Eosinophils Absolute Auto 0.2 10^3/uL (0.0-0.7); Eosinophils Percent Auto 2.2 % (0.9-7.0); Hematocrit 41.8 % (42.0-54.0); Hemoglobin 14.2 g/dL (14.0-18.0); Immature Granulocytes Abs Auto 0.03 10^3/uL (0.00-0.03); Immature Granulocytes Pct Auto 0.3 % (0.0-0.5); Lymphocytes Absolute Auto 1.8 10^3/uL (1.2-3.8); Lymphocytes Percent Auto 19.7 % (20.5-60.0); Mean Corpuscular Hemoglobin 31.1 pg (25.9-34.0); Mean Corpuscular Volume 91.7 fL (80.0-94.0); Mean Platelet Volume 9.3 fL (9.5-13.5); Monocytes Absolute Auto 0.8 10^3/uL (0.3-0.8); Monocytes Percent Auto 8.4 % (1.7-12.0); Neutrophils Absolute Auto 6.3 10^3/uL (1.4-6.5); Neutrophils Percent Auto 68.7 % (43.0-75.0); Platelet Count 262 10^3/uL (150-450); Red Blood Count 4.56 10^6/uL (4.70-6.10); Red Cell Distribution Width 13.3 % (11.0-15.0); White Blood Count 9.2 10^3/uL (4.0-11.0)
[2024-10-16 10:47] LABS: Estimated Average Glucose 146 mg/dL; Glycohemoglobin A1C 6.7 % (4.5-6.2)
[2024-10-16 11:00] LABS: Alanine Aminotransferase 60 U/L (16-63); Albumin Level 3.2 g/dL (3.4-5.0); Alkaline Phosphatase 70 U/L (46-116); Anion Gap 10.6; Aspartate Amino Transferase 33 U/L (15-37); BUN Creatinine Ratio 14.1; Bilirubin Total 0.5 mg/dL (0.2-1.0); Calcium 8.9 mg/dL (8.5-10.1); Carbon Dioxide 31.3 mmol/L (21.0-32.0); Chloride 103 mmol/L (98-107); Chol HDL Ratio 4.8; Cholesterol 172 mg/dL (<=200); Estimated GFR (African America >60 (>=60 mL/min/1.73m^2); Estimated GFR (Non-African Ame >60 (>=60 mL/min/1.73m^2); Free T3 2.41 pg/mL (2.18-3.98); Globulin 3.3 g/dL; Glucose 146 mg/dL (74-106); HDL Cholesterol 36 mg/dL (40-60); Potassium 3.9 mmol/L (3.5-5.1); Sodium 141 mmol/L (136-145); Thyroid Stimulating Hormone 6.514 uIU/mL (0.358-3.740); Total Protein 6.5 g/dL (6.4-8.2); Triglycerides 311 mg/dL (<=150); VLDL CHOLESTEROL 62.2 mg/dL
[2024-10-16 11:27] LABS: Prostate Specific Antigen Scrn <0.13 ng/mL (<=4.00)
== END 2024-10-16 09:56 | disposition home or self-care (01) ==
LOC: LAB 09:58
PROVIDERS: PCP Family Medicine; Visit Provider Family Medicine
DX: Z00.00 Encounter for general adult medical examination without abnormal findings (principal); I10 Essential (primary) hypertension; E78.5 Hyperlipidemia, unspecified; E11.9 Type 2 diabetes mellitus without complications
CPT/HCPCS: 36415; 80053; 80061; 83036; 84436; 84443; 84481; 85025; G0103

== ENCOUNTER 2024-10-17 11:14 | Outpatient (REF) | payer BC, SELFPAY ==
--- OUTSIDE RECORDS SUMMARY | 2024-10-17 11:20 | XMS_ITS | CCD ---
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) Metabolic workup 07/08/2024: [...] Urnls Dip Stick Auto w/o Microscopy POC 22506 Follow-up With When Contact Information GIOVANA CANTOR, Yovany Kwan, URL [address] [place] [address] Additional Instructions: Follow up in Jun 2025 w KUB Patient Education Kidney Stones, Buoq-[id number] Cecilio Alvarez, personally scribed for ELSIE Hawkins [...] Elevated PSA History of procedure Hx of senior living use of blood thinners Hyperuricosuria Hypocitraturia Kidney stone Kidney stone Leukocytosis Lumbar radiculopathy Neuropathy Nocturia Obesity Osteoarthritis Osteoarthritis Type 2 diabetes mellitus without complication Historical GERD (gastroesophageal reflux disease) Neoplasm of uncertain behavior of skin Th (more content not included)... Normal [facility] Comment on above: Result Comment: Elec tronically [...] Your Care Team Attending Physician - ELSIE Whipple APRN, [place] X Primary Care Physician - [...] Yovany AKHTAR MD Where: [facility] [address] [place] [address]- You Need to Schedule the Following Appointments Follow Up with Yovany AKHTAR MD, URL When: Where: [address] [address]- Medications What How Much When [...] Elevated PSA History of procedure Hx of senior living use of blood thinners Hyperuricosuria Hypocitraturia Kidney [...] included)... Normal [facility] Ambulatory Visit Summaryon 1 Ambulatory Visit Summary [...] Yovany AKHTAR MD Where: [facility] [address] [place] [address]- You Need to Schedule the Following Appointments Follow Up with Yovany AKHTAR MD, URL When: Where: [address] [address]- Medications What How Much When [...] 2, noninsulin dependent Elevated PSA Hx of senior living use of blood thinners Kidney stone Nocturia [...] included)... Normal [facility] Urology Office/Clinic Noteon 06-11-2024 Urology Office/Clinic Note [...] KUB was read as negative at the [facility] but to my review there may [...] Information GIOVANA CANTOR, Yovany P, URL [address] [address] [facility] [address] [place], [place] [id number]- Additional Instructions: 1 yr with KUB and [...] with voice recognition artificial intelligence software, specifically [employer], [employer] and or [employer]ie. Substitutions may have occurred due to the inherent limitations of voice recognition and artificial intelligence software. Problem List/Past Medical History Ongoing BMI 40.0-44.9, adult BPH (benign prostatic hyperplasia) Chronic anticoagulation Dermatofibroma of left upper arm Diabetes mellitus type 2, noninsulin dependent Elevated PSA Hx of senior living use of blood thinners Kidney stone Nocturia Osteoarthritis Historical GERD (gastroesophag (more content not included)... Normal [facility] Comment on above: Result Comment: Elec tronically [...] MANSOOR [place] Date: 2022-06-16 18:56 Normal [facility] XR KUB 1 VIEWon 06-09-2022 XR [...] MAN[place]OR [place] Date: 2022-06-09 17:41 Normal [facility] CBC AUTO DIFFon 05-29-2022 BASO # 0.1 103/ul Normal 0.0-0.1 [facility] Comment on above: Performed By: #### C BC ####[facility] [address] [place] [id number]. Wyatt Aldrich Basophils/100 WBC (Bld) 0.2 % Normal 0.2-2.[address] [facility] Comment on above: Performed By: #### C BC ####[facility] [address] [place] [id number]. Wyatt Aldrich EO # 0.0 103/ul Normal 0.0-0.[address] [facility] Comment on above: Performed By: #### C BC ####[facility] [address] [place], [place] [address]Dr. Wyatt Aldrich Eosinophils/100 WBC (Bld) 0.2 % Critically low 0.9-7.[address] [facility] Comment on above: Performed By: #### C BC ####[facility] Zofe[address] [place], [place] [address]Dr. Wyatt Aldrcih Erythrocyte distribution width (RBC) [Ratio] 12.3 % Normal 11.0-15.0 [facility] Comment on above: Performed By: #### C BC ####[facility] Cab[address] [place], [place] [address]Dr. Wyatt Aldrich Hematocrit (Bld) [Volume fraction] 45.9 % Normal 42.0-54.0 [facility] Comment on above: Performed By: #### C BC ####[facility] [address] [place] [id number]. Wyatt Aldrich Hemoglobin (Bld) [Mass/Vol] 15.2 g/dL Normal 14.0-18.[address] [facility] Comment on above: Performed By: #### C BC ####[facility] [address] [place] [address]Dr. Wyatt Aldrich IG # 0.09 10e3/ul Critically high 0.00-0.03 [facility] Comment on above: Performed By: #### C BC ####[facility] Kst[address] [place], [place] [address]Dr. Wyatt Aldrich IG % 0.4 % Normal 0.0-0.[address] [facility] Comment on above: Performed By: #### C BC ####[facility] [address] [place], [place] [address]Ly. Wyatt Aldrich LYMPH # 1.1 103/ul Critically low 1.2-3.8 The [facility] Comment on above: Performed By: #### C BC ####[facility] [address] [place], [place] [address]Th. Wyatt Aldrich Lymphocytes/100 WBC (Bld) 5.1 % Critically low 20.5-60.[address] [facility] Comment on above: Performed By: #### C BC ####[facility] [address] [place] [id number]. Jossielalo Aldrich MANUAL DIFF REQ NO Normal [facility] Comment on above: Performed By: #### C BC ####[facility] [address] [place] [id number]. Wyatt Valdemar MCH (RBC) [Entitic mass] 30.2 pg Normal 25.9-34.[address] [facility] Comment on above: Performed By: #### C BC ####[facility] [address] [place] [id number]. Wyatt Aldrich MCHC (RBC) [Mass/Vol] 33.1 g/dL Normal 29.9-35.[address] [facility] Comment on above: Performed By: #### C BC ####[facility] [address]ep[address] [place] [id number]. Wyatt Valdemar MCV (RBC) [Entitic vol] 91.3 fL Normal 80.0-94.[address] [facility] Comment on above: Performed By: #### C BC ####[facility] [address] [place] [id number]. Wyatt Valdemar MONO # 1.4 103/ul Critically high 0.3-0.8 [facility] Comment on above: Performed By: #### C BC ####[facility] [address]av[address] [place] [id number]. Wyatt Valdemar Monocytes/100 WBC (Bld) 6.7 % Normal 1.7-12.[address] [facility] Comment on above: Performed By: #### C BC ####[facility] [address] [place], [place] [address]Ed. Wyatt Aldrich NEUT # 18.5 103/ul Critically high 1.4-6.5 The [facility] Comment on above: Performed By: #### C BC ####[facility] [address] [place] [id number]. Wyatt Aldrich Neutrophils/100 WBC (Bld) 87.4 % Critically high 43.0-75.[address] [facility] Comment on above: Performed By: #### C BC ####[facility] [address] [place] [id number]. Wyatt Aldrich Platelet mean volume (Bld) [Entitic vol] 9.3 fL Critically low 9.5-13.5 [facility] Comment on above: Performed By: #### C BC ####[facility] [address] [place] [id number]. Wyatt Aldrich PLT 303 103/ul Normal 150-[address] [facility] Comment on above: Performed By: #### C BC ####[facility] [address] [place] [id number]. Wyatt Aldrich RBC 5.03 106/ul Normal 4.70-6.[address] [facility] Comment on above: Performed By: #### C BC ####[facility] [address] [place] [id number]. Wyatt Aldrich WBC 21.2 103/ul Critically high 4.0-11.0 The [facility] Comment on above: Performed By: #### C BC ####[facility] Ur[address] [place], [place] [id number]. Wyatt Aldrich CT ABD/PELVIS WO CONon 05-29 [...] by: BOO GUZMAN Date: 2022-05-29 17:32 Normal [facility] ER URINE PROFILEon 2 Bilirubin Ql (U) Negative Normal NEGATIVE [facility] Comment on above: Performed By: #### U MICRO, ERUR #### [facility] [address] [address] [address] Wyatt Aldrich Clarity (U) CLEAR Normal CLEAR [facility] Comment on above: Performed By: #### U MICRO, ERUR #### [facility] [address] [address] [address] Wyatt Aldrich Color (U) LT. YELLOW Normal YELLOW [facility] Comment on above: Performed By: #### U MICRO, ERUR #### [facility] [address] [address] [address] Wyatt Aldrich ERUAHD A micrscopic examina tion will be performed if indicated. Normal [facility] Comment on above: Performed By: #### U MICRO, ERUR #### [facility] [address] [address] [address] Wyatt Aldrich Glucose Ql (U) Negative Normal NEGATIVE [facility] Comment on above: Performed By: #### U MICRO, ERUR #### [facility] [address] [address] [address] Wyatt Aldrich Hemoglobin Ql (U) TRACE-INTACT Abnormal NEGATIVE [facility] Comment on above: Performed By: #### U MICRO, ERUR #### [facility] [address] [address] [address] Wyatt Aldrich Ketones Ql (U) Negative Normal NEGATIVE [facility] Comment on above: Performed By: #### U MICRO, ERUR #### [facility] [address] [address] [address] Wyatt Aldrich LEUKOCYTES Negative Normal NEGATIVE [facility] Comment on above: Performed By: #### U MICRO, ERUR #### [facility] [address] [address] [address] Wyatt Aldrich Nitrite Ql (U) Negative Normal NEGATIVE [facility] Comment on above: Performed By: #### U MICRO, ERUR #### [facility] [address] [place] [address] Dr. Wyatt Aldrich pH (U) 7.0 [pH] Normal 5-9 [facility] Comment on above: Performed By: #### U MICRO, ERUR #### [facility] [address] [address] [address] Wyatt Aldrich SPEC GRAVITY 1.020 Normal 1.005-<=1.025 [facility] Comment on above: Performed By: #### U MICRO, ERUR #### [facility] [address] [place] [address] Dr. Wyatt Aldrich UA PROTEIN Negative Normal NEGATIVE/ TRACE [facility] Comment on above: Performed By: #### U MICRO, ERUR #### [facility] [address] [address] [address] Wyatt Aldrich UR MICRO IND INDICATED Normal [facility] Comment on above: Performed By: #### U MICRO, ERUR #### [facility] [address] [address] [address] Wyatt Aldrich Urobilinogen Qn (U) 0.2 {Sharon'U}/dL Normal 0.2 - 1. 0 [facility] Comment on above: Performed By: #### U MICRO, ERUR #### [facility] [address] [place] [address] Dr. Wyatt Aldrich PROF 14(COMP METB)on 022 Albumin [Mass/Vol] 3.9 g/dL Normal 3.4-5.0 The [facility] Comment on above: Performed By: #### C MP #### [facility] [address] [place] [address] Dr. Wyatt Aldrich Albumin/Globulin [Mass ratio] 1.1 {ratio} Normal [facility] Comment on above: Performed By: #### C MP #### [facility] [address] [address] [address] Wyatt Aldrich ALP [Catalytic activity/Vol] 70 U/L Normal 46-116 [facility] Comment on above: Performed By: #### C MP #### [facility] [address] [place] [address] Dr. Wyatt Aldrich ALT [Catalytic activity/Vol] 38 U/L Normal 16-63 [facility] Comment on above: Performed By: #### C MP #### [facility] [address] [place] [address] Dr. Wyatt Aldrich Anion gap [Moles/Vol] 12.6 mmol/L Normal [facility] Comment on above: Performed By: #### C MP #### [facility] [address] [place] [address] Dr. Wyatt Aldrich AST [Catalytic activity/Vol] 20 U/L Normal 15-37 [facility] Comment on above: Performed By: #### C MP #### [facility] [address] [place] [address] Dr. Wyatt Aldrich Bilirubin [Mass/Vol] 0.6 mg/dL Normal 0.2-1.0 [facility] Comment on above: Performed By: #### C MP #### [facility] [address] [place] [address] Dr. Wyatt Aldrich Calcium [Mass/Vol] 8.7 mg/dL Normal 8.5-10.1 The [facility] Comment on above: Performed By: #### C MP #### [facility] [address] [place] [address] Dr. Wyatt Aldrich Chloride [Moles/Vol] 95 mmol/L Critically low 98-[address] [facility] Comment on above: Performed By: #### C MP #### [facility] [address] [address] [address] Wyatt Aldrich CO2 [Moles/Vol] 29.9 mmol/L Normal 21.0-32.0 [facility] Comment on above: Performed By: #### C MP #### [facility] [address] [address] [address] Wyatt Aldrich Creatinine [Mass/Vol] 1.04 mg/dL Normal 0.70-1.30 [facility] Comment on above: Performed By: #### C MP #### [facility] [address] [address] [address] Wyatt Aldrich EGFR-AF ICELANDIC >60 Normal >=60 [facility] Comment on above: Performed By: #### C MP #### [facility] [address] [address] [address] Wyatt Aldrich EGFR-NON AF ICELANDIC >60 Normal >=60 [facility] Comment on above: Performed By: #### C MP #### [facility] [address] [address] [address] Wyatt Aldrich Globulin (S) [Mass/Vol] 3.4 g/dL Normal [facility] Comment on above: Performed By: #### C MP #### [facility] [address] [address] [address] Wyatt Aldrich Glucose [Mass/Vol] 148 mg/dL Critically high 74-106 [facility] Comment on above: Performed By: #### C MP #### [facility] [address] [address] [address] Wyatt Aldrich Potassium [Moles/Vol] 4.5 mmol/L Normal 3.5-5.1 [facility] Comment on above: Performed By: #### C MP #### [facility] [address] [address] [address] Wyatt Aldrich Protein [Mass/Vol] 7.3 g/dL Normal 6.4-8.2 [facility] Comment on above: Performed By: #### C MP #### [facility] [address] [address] [address] Wyatt Aldrich Sodium [Moles/Vol] 133 mmol/L Critically low 136-[address] [facility] Comment on above: Performed By: #### C MP #### [facility] [address] [address] [address] Wyatt Aldrich Urea nitrogen [Mass/Vol] 15.0 mg/dL Normal 7.0-18.0 [facility] Comment on above: Performed By: #### C MP #### [facility] [address] [address] [address] Wyatt Aldrich Urea nitrogen/Creatinine [Mass ratio] 14.4 mg/mg Normal [facility] Comment on above: Performed By: #### C MP #### [facility] [address] [place] [address] Dr. Wyatt Aldrich URINE MICROSCOPIC ONLYon BACTERIA NONE SEEN Normal NONE SEEN [facility] Comment on above: Performed By: #### U MICRO, ERUR #### [facility] [address] [place] [address] Dr. Wyatt Aldrich Bacteria identified Cx Nom (U) NOT INDICATED Normal [facility] Comment on above: Performed By: #### U MICRO, ERUR #### [facility] [address] [place] [address] Dr. Wyatt Aldrich CAST NONE SEEN Normal NONE SEEN The [facility] Comment on above: Performed By: #### U MICRO, ERUR #### [facility] [address] [place] [address] Dr. Wyatt Aldrich Crystals LM Nom (Urine sed) NONE SEEN Normal NONE SEEN [facility] Comment on above: Performed By: #### U MICRO, ERUR #### [facility] [address] [place] [address] Dr. Wyatt Aldrich Epithelial cells LM Ql (Urine sed) NONE SEEN Normal NONE SEEN /RARE The [facility] Comment on above: Performed By: #### U MICRO, ERUR #### [facility] [address] [place] [address] Dr. Wyatt Aldrich MUCOUS NONE SEEN Normal NONE SEEN The [facility] Comment on above: Performed By: #### U MICRO, ERUR #### [facility] [address] [address] [address] Wyatt Aldrich RBC 2-5 Abnormal 0-2 [facility] Comment on above: Performed By: #### U MICRO, ERUR #### [facility] [address] [address] [address] Wyatt Aldrich WBC NONE SEEN Normal NONE SEEN [facility] Comment on above: Performed By: #### U MICRO, ERUR #### [facility] [address] [address] [address] Wyatt Aldrich T4 LABCORPon 01-29-2022 T4 [Mass/Vol] 9.1 ug/dL Normal 4.5-12.0 [facility] Comment on above: Performed By: #### T 4LC ####[facility] [address] [place] [address]Dr. Wyatt Aldrich CBC AUTO DIFFon 01-28-2022 BASO # 0.1 103/ul Normal 0.0-0.1 [facility] Comment on above: Performed By: #### C BC ####[facility] [address] [place] [address]DrCullen Aldrich Basophils/100 WBC (Bld) 0.6 % Normal 0.2-2.0 [facility] Comment on above: Performed By: #### C BC ####[facility] [address] [place] [address]Dr. Wyatt Aldrich EO # 0.2 103/ul Normal 0.0-0.[address] [facility] Comment on above: Performed By: #### C BC ####[facility] [address] [place] [address]DrCullen Aldrich Eosinophils/100 WBC (Bld) 2.4 % Normal 0.9-7.[address] [facility] Comment on above: Performed By: #### C BC ####[facility] [address] [place] [address]DrCullen Aldrich Erythrocyte distribution width (RBC) [Ratio] 12.5 % Normal 11.0-15.0 [facility] Comment on above: Performed By: #### C BC ####[facility] [address] [place] [address]Dr. Wyatt Aldrich Hematocrit (Bld) [Volume fraction] 43.5 % Normal 42.0-54.0 [facility] Comment on above: Performed By: #### C BC ####[facility] [address] [place] [address]Dr. Wyatt Aldrich Hemoglobin (Bld) [Mass/Vol] 14.4 g/dL Normal 14.0-18.[address] [facility] Comment on above: Performed By: #### C BC ####[facility] [address] [place], [place] [address]Dr. Wyatt Aldrich IG # 0.03 10e3/ul Normal 0.00-0.[address] [facility] Comment on above: Performed By: #### C BC ####[facility] [address] [place], [place] [address]Dr. Wyatt Aldrich IG % 0.4 % Normal 0.0-0.5 [facility] Comment on above: Performed By: #### C BC ####[facility] [address] [place], [place] [address]Dr. Wyatt Aldrich LYMPH # 2.1 103/ul Normal 1.2-3.[address] [facility] Comment on above: Performed By: #### C BC ####[facility] [address]rxf[address] [place], [place] [address]Dr. Wyatt Aldrich Lymphocytes/100 WBC (Bld) 24.8 % Normal 20.5-60.[address] [facility] Comment on above: Performed By: #### C BC ####[facility] [address] [place], [place] [address]Dr. Wyatt Aldrich MANUAL DIFF REQ NO Normal [facility] Comment on above: Performed By: #### C BC ####[facility] [address] [place] [address]Dr. Wyatt Aldrich MCH (RBC) [Entitic mass] 30.6 pg Normal 25.9-34.0 [facility] Comment on above: Performed By: #### C BC ####[facility] [address] [place] [address]Dr. Jossielalo Valdemar MCHC (RBC) [Mass/Vol] 33.1 g/dL Normal 29.9-35.[address] [facility] Comment on above: Performed By: #### C BC ####[facility] [address] [place] [address]Dr. Wyatt Aldrich MCV (RBC) [Entitic vol] 92.6 fL Normal 80.0-94.0 [facility] Comment on above: Performed By: #### C BC ####[facility] [address] [place], [place] [address]DrCullen Aldrich MONO # 0.6 103/ul Normal 0.3-0.[address] [facility] Comment on above: Performed By: #### C BC ####[facility] [address] [place], [place] [address]Dr. Wyatt Aldrich Monocytes/100 WBC (Bld) 7.7 % Normal 1.7-12.[address] [facility] Comment on above: Performed By: #### C BC ####[facility] [address] [place], [place] [address]Dr. Wyatt Aldrich NEUT # 5.3 103/ul Normal 1.4-6.[address] [facility] Comment on above: Performed By: #### C BC ####[facility] [address] [place], [place] [address]Dr. Wyatt Aldrich Neutrophils/100 WBC (Bld) 64.1 % Normal 43.0-75.[address] [facility] Comment on above: Performed By: #### C BC ####[facility] [address] [place], [place] [address]DrCullen Aldrich Platelet mean volume (Bld) [Entitic vol] 9.4 fL Critically low 9.5-13.[address] [facility] Comment on above: Performed By: #### C BC ####[facility] [address]xpa[address] [place], [place] [address]Dr. Wyatt Aldrich PLT 280 103/ul Normal 150-450 [facility] Comment on above: Performed By: #### C BC ####[facility] [address] [place] [id number] Aldrich RBC 4.70 106/ul Normal 4.70-6.10 [facility] Comment on above: Performed By: #### C BC ####[facility] [address] [place] [id number] Aldrich WBC 8.3 103/ul Normal 4.0-11.0 [facility] Comment on above: Performed By: #### C BC ####[facility] [address] [place] [address]DrCullen Aldrich FREE T3on 01-28-2022 FREE T3 2.70 pg/mlL Normal 2.18-3.98 [facility] Comment on above: Performed By: #### L IPID, CMP, TSH, FT3 ####[facility] [address] [place] [address]Dr. Wyatt Aldrich GLYCOHEMOGLOBIN A1Con 2021 ADA RECOMMENDATION SEE BELOW Normal [facility] Comment on above: Result Comment: ADA RECOMMENDED LIMIT 4.0 - 6.0 ADA THERAPEUTIC TARGET < 7.0 ACTION SUGGESTED > 7.0 Performed By: #### A 1C #### [facility] [address] [address] [address] Wyatt Aldrich Glucose [Mass/Vol] 143 mg/dL Normal [facility] Comment on above: Performed By: #### A 1C #### [facility] [address] [address] [address] Wyatt Aldrich HbA1c (Bld) [Mass fraction] 6.6 % Critically high 4.5-6.2 [facility] Comment on above: Performed By: #### A 1C #### [facility] [address] [address] [address] Wyatt Aldrich LIPID PROFILEon 01-28-2022 CHOL-HDL RATIO NORM SEE BELOW Normal [facility] Comment on above: Result Comment: 3.3 - 4.4 LOW RISK 4.4 - 7.1 AVERAGE RISK 7.1 - 11.0 MODERATE RISK >11.0 HIGH RISK Performed By: #### L IPID, CMP, TSH, FT3 ####[facility] [address] [place] [address]Dr. Wyatt Aldrich Cholesterol [Mass/Vol] 176 mg/dL Normal <=[address] [facility] Comment on above: Performed By: #### L IPID, CMP, TSH, FT3 ####[facility] [address] [place] [address]Dr. Wyatt Aldrich Cholesterol in HDL [Mass/Vol] 35 mg/dL Critically low 40-[address] [facility] Comment on above: Performed By: #### L IPID, CMP, TSH, FT3 ####[facility] [address] [place], [place] [address]Dr. Wyatt Aldrich Cholesterol in LDL [Mass/Vol] 94.4 mg/dL Normal [facility] Comment on above: Performed By: #### L IPID, CMP, TSH, FT3 ####[facility] [address] [place] [address]Dr. Wyatt Aldrich Cholesterol.total/Ch olesterol in HDL [Mass ratio] 5.0 {ratio} Normal [facility] Comment on above: Performed By: #### L IPID, CMP, TSH, FT3 ####[facility] [address] [place] [address]Dr. Wyatt Aldrich HDL NORMAL > or = 60 mg/dl - LO W CARDIOVASCULAR RISK <40 mg/dl - HIGH CARDIOVASCULAR RISK Normal [facility] Comment on above: Performed By: #### L IPID, CMP, TSH, FT3 ####[facility] [address] [place] [address]Dr. Jossielalo Aldrich LDL CALC NORMAL SEE BELOW Normal [facility] Comment on above: Result Comment: <100 mg/dl OPTIMAL 100 - 129 mg/dl NEAR OR ABOVE OPTIMAL 130 - 159 mg/dl BORDERLINE HIGH 160 - 189 mg/dl HIGH >190 mg/dl VERY HIGH Performed By: #### L IPID, CMP, TSH, FT3 ####[facility] [address] [place], [place] [address]Dr. Wyatt Aldrich Triglyceride [Mass/Vol] 233 mg/dL Critically high <=150 [facility] Comment on above: Performed By: #### L IPID, CMP, TSH, FT3 ####[facility] [address] [place] [id number]. Wyatt Aldrich VLDL CALC 46.6 mg/dL Normal [facility] Comment on above: Performed By: #### L IPID, CMP, TSH, FT3 ####[facility] [address] [place] [id number]. Wyatt Aldrich OCC BLD IMMUNO SCREENon 01-03 OCCULT BLOOD Negative Normal NEGATIVE [facility] Comment on above: Performed By: #### O BSCRN #### [facility] [address] [address] [address] Wyatt Aldrich PROF 14(COMP METB)on 022 Albumin [Mass/Vol] 3.4 g/dL Normal 3.4-5.0 [facility] Comment on above: Performed By: #### L IPID, CMP, TSH, FT3 ####[facility] [address] [place] [id number]. Wyatt Aldrich Albumin/Globulin [Mass ratio] 1.0 {ratio} Normal [facility] Comment on above: Performed By: #### L IPID, CMP, TSH, FT3 ####[facility] [address] [place] [id number]. Wyatt Aldrich ALP [Catalytic activity/Vol] 65 U/L Normal 46-[address] [facility] Comment on above: Performed By: #### L IPID, CMP, TSH, FT3 ####[facility] [address] [place] [id number]. Wyatt Aldrich ALT [Catalytic activity/Vol] 45 U/L Normal 16-63 [facility] Comment on above: Performed By: #### L IPID, CMP, TSH, FT3 ####[facility] [address] [place] [id number] Aldrich Anion gap [Moles/Vol] 9.7 mmol/L Normal [facility] Comment on above: Performed By: #### L IPID, CMP, TSH, FT3 ####[facility] [address] [place] [address]Dr. Wyatt Aldrich AST [Catalytic activity/Vol] 20 U/L Normal 15-37 [facility] Comment on above: Performed By: #### L IPID, CMP, TSH, FT3 ####[facility] [address] [place] [address]Dr. Wyatt Aldrich Bilirubin [Mass/Vol] 0.4 mg/dL Normal 0.2-1.[address] [facility] Comment on above: Performed By: #### L IPID, CMP, TSH, FT3 ####[facility] [address] [place], [place] [address]Dr. Wyatt Aldrich Calcium [Mass/Vol] 8.5 mg/dL Normal 8.5-10.1 [facility] Comment on above: Performed By: #### L IPID, CMP, TSH, FT3 ####[facility] [address] [place], [place] [address]Dr. Wyatt Aldrich Chloride [Moles/Vol] 101 mmol/L Normal 98-[address] [facility] Comment on above: Performed By: #### L IPID, CMP, TSH, FT3 ####[facility] [address] [place], [place] [address]Dr. Wyatt Aldrich CO2 [Moles/Vol] 33.3 mmol/L Critically high 21.0-32.[address] [facility] Comment on above: Performed By: #### L IPID, CMP, TSH, FT3 ####[facility] [address] [place], [place] [address]Dr. Wyatt Aldrich Creatinine [Mass/Vol] 0.77 mg/dL Normal 0.70-1.[address] [facility] Comment on above: Performed By: #### L IPID, CMP, TSH, FT3 ####[facility] [address] [place] [address]Dr. Wyatt Aldrich EGFR-AF ICELANDIC >60 Normal >=60 [facility] Comment on above: Performed By: #### L IPID, CMP, TSH, FT3 ####[facility] [address] [place] [address]Dr. Wyatt Aldrich EGFR-NON AF ICELANDIC >60 Normal >=60 [facility] Comment on above: Performed By: #### L IPID, CMP, TSH, FT3 ####[facility] [address] [place] [address]Dr. Wyatt Aldrich Globulin (S) [Mass/Vol] 3.3 g/dL Normal [facility] Comment on above: Performed By: #### L IPID, CMP, TSH, FT3 ####[facility] [address] [place] [address]Dr. Wyatt Aldrich Glucose [Mass/Vol] 137 mg/dL Critically high 74-106 [facility] Comment on above: Performed By: #### L IPID, CMP, TSH, FT3 ####[facility] [address] [place], [place] [address]Dr. Wyatt Aldrich Potassium [Moles/Vol] 4.0 mmol/L Normal 3.5-5.1 [facility] Comment on above: Performed By: #### L IPID, CMP, TSH, FT3 ####[facility] [address] [place], [place] [address]Dr. Wyatt Aldrich Protein [Mass/Vol] 6.7 g/dL Normal 6.4-8.2 [facility] Comment on above: Performed By: #### L IPID, CMP, TSH, FT3 ####[facility] [address] [place] [address]Dr. Wyatt Aldrich Sodium [Moles/Vol] 140 mmol/L Normal 136-145 [facility] Comment on above: Performed By: #### L IPID, CMP, TSH, FT3 ####[facility] [address] [place] [address]Dr. Wyatt Aldrich Urea nitrogen [Mass/Vol] 13.0 mg/dL Normal 7.0-18.0 [facility] Comment on above: Performed By: #### L IPID, CMP, TSH, FT3 ####[facility] [address] [place], [place] [address]Dz. Wyatt Aldrich Urea nitrogen/Creatinine [Mass ratio] 16.9 mg/mg Normal [facility] Comment on above: Performed By: #### L IPID, CMP, TSH, FT3 ####[facility] [address] [place], [place] [address]Pp. Wyatt Aldrich TSHon 01-28-2022 TSH 5.562 uIU/mL Critically high 0.358-3.740 [facility] Comment on above: Performed By: #### L IPID, CMP, TSH, FT3 ####[facility] [address] [place] [id number]. Wyatt Aldrich TSH RANGE SEE BELOW Normal [facility] Comment on above: Result Comment: <0.3 4 UIU/ml HYPERTHYROID 0.34-5.60 UIU/ml EUTHYROID >5.60 UIU/ml HYPOTHYROID Performed By: #### L IPID, CMP, TSH, FT3 ####[facility] [address] [place], [place] [address]Bu. Wyatt Aldrich XR KUB 1 VIEWon 01-20-2022 [...] Date: 2022-01-20 14:12 Normal [facility] MRI LSPINE WO W CONon 2021 [...] TANISHA CHIU Date: 2021-10-04 11:23 Normal [facility] XR LSPINE MIN 4 VIEWSon 09-05 [...] by: SOLO SAVAGE Date: 2021-09-27 11:31 Normal [facility] Vital Signs Date Time Vital Sign Value Performing Clinician Jessi chowdhury 09-10-2024 09:50-0500 Diastolic blood pressure 78 mm[Hg] Zena Orzech [facility] 09-10-2024 09:50-0500 Mean blood pressure 99 mm[Hg] Zena Orzech [facility] 09-10-2024 09:50-0500 Systolic blood pressure 140 mm[Hg] Zena Orzech [facility] 09-10-2024 09:27-0500 Blood Pressure Location Zena Orzech [facility] 09-10-2024 09:27-0500 Body temperature 98.6 [degF] Zena Orzech [facility] 09-10-2024 09:27-0500 Diastolic blood pressure 96 mm[Hg] Zena Orzech [facility] 09-10-2024 09:27-0500 Heart rate 69 /min Zena Orzech [facility] 09-10-2024 09:27-0500 Systolic blood pressure 190 mm[Hg] Zena Orzech [facility] 06-11-2024 08:19-0400 Blood Pressure Location Yovany AKHTAR [facility] 06-11-2024 08:19-0400 Diastolic blood pressure 111 mm[Hg] Yovany AKHTAR [facility] 06-11-2024 08:19-0400 Heart rate 71 /min Yovany COOK [facility] 06-11-2024 08:19-0400 Systolic blood pressure 190 mm[Hg] Yovany COOK [facility] 06-06-2023 08:48-0400 Blood Pressure Location Yovany COOK [facility] 06-06-2023 08:48-0400 Diastolic blood pressure 66 mm[Hg] Yovany COOK [facility] 06-06-2023 08:48-0400 Heart rate 83 /min Yovany COOK [facility] 06-06-2023 08:48-0400 Systolic blood pressure 142 mm[Hg] Yovany COOK [facility] 06-17-2022 09:14-0400 Blood Pressure Location Yovany COOK [facility] 06-17-2022 09:14-0400 Diastolic blood pressure 96 mm[Hg] Yovany COOK [facility] 06-17-2022 09:14-0400 Heart rate 67 /min Yovany COOK [facility] 06-17-2022 09:14-0400 Systolic blood pressure 159 mm[Hg] Yovany COOK [facility] 06-10-2022 09:54-0400 Blood Pressure Location Yovany COOK [facility] 06-10-2022 09:54-0400 Diastolic blood pressure 102 mm[Hg] Yovany AKHTAR [facility] 06-10-2022 09:54-0400 Heart rate 68 /min Yovany AKHTAR [facility] 06-10-2022 09:54-0400 Systolic blood pressure 166 mm[Hg] Yovany AKHTAR [facility] 01-21-2022 08:44-0400 Blood Pressure Location Yovany AKHTAR [facility] 01-21-2022 08:44-0400 Diastolic blood pressure 87 mm[Hg] Yovany AKHTAR [facility] 01-21-2022 08:44-0400 Heart rate 72 /min Yovany AKHTAR [facility] 01-21-2022 08:44-0400 Systolic blood pressure 140 mm[Hg] Yovany AKHTAR [facility] Encounters Encounter Date Encounter Type Care Provider Facility Start: 09-10-2024 End: 09-10-2024 ambulatory Zena X Sole Facility:[facility] Start: 09-10-2024 End: 09-10-2024 Patient encounter procedure Zena X Orzech [facility] Start: 06-11-2024 End: 06-11-2024 ambulatory Yovany AKHTAR Facility:[facility] Start: 06-11-2024 End: 06-11-2024 Patient encounter procedure Yovany AKHTAR [facility] Start: 06-10-2024 End: 06-10-2024 ambulatory Heather Turcios MD Facility:[facility] Start: 02-19-2024 End: 02-19-2024 ambulatory Heather Turcios MD Facility:[facility] Start: 02-05-2024 End: 02-05-2024 ambulatory Heather Turcios MD Facility:[facility] Start: 12-25-2023 End: 12-25-2023 ambulatory MICHAEL KIM Not Available Start: 12-21-2023 End: 12-21-2023 ambulatory BALTA OTTO Not Available Start: 12-19-2023 End: 12-19-2023 ambulatory MICHAEL KIM Not Available Start: 06-06-2023 End: 06-06-2023 Patient encounter procedure Yovany AKHTAR [facility] Start: 06-17-2022 End: 06-17-2022 Patient encounter procedure Yovnay AKHTAR [facility] Start: 06-16-2022 End: 06-17-[address] NANCY FERNANDEZ Facility:[facility] Start: 06-10-2022 End: 06-10-2022 Patient encounter procedure Yovany AKHTAR [facility] Start: 06-09-2022 End: 06-10-[address] NANCY FERNANDEZ Facility:[facility] Start: 05-29-2022 End: 05-29-[address] NANCY FERNANDEZ Facility:[facility] Start: 05-11-2022 End: 05-11-2022 Patient encounter procedure Yovany AKHTAR [facility] Start: 02-03-2022 Encounter for genera l adult medical examination without abnormal findings DR NANCY FERNANDEZ [facility] Start: 01-28-2022 End: 01-29-[address] NANCY FERNANDEZ Facility:[facility] Start: 01-28-2022 End: 01-29-2022 Encounter for general adult medical examination without abnormal findings DR NANCY FERNANDEZ Facility:[facility] Start: 01-21-2022 End: 01-21-2022 Patient encounter procedure Yovany AKHTAR [facility] Start: 01-20-2022 End: 01-21-2022 ambulatory [...] on above: Performed By: #### P SAD ####[place] [address]Dr. Wyatt Aldrich Start: 08-13-2020 Extracorporeal shock wave [...] Author Start: 06-10-2025 ambulatory Ambulatory Facility:[facility] Immunizations Immunization Date Immunization Notes Care Provider Mica biggs 04-19-2022 zoster vaccine recombinant Yovany AKHTAR [facility] 02-12-2022 pneumococcal 20-maría nt conjugate vaccine Yovany AKHTAR [facility] 02-03-2022 zoster vaccine recombinant Yovany AKHTAR [facility] 12-08-2020 SARS-CoV-2 (COVID-19 ) mRNA-1273 vaccine Yovany AKHTAR [facility] 11-17-2020 SARS-CoV-2 (COVID-19 ) mRNA BNT-162b2 vax Yovany AKHTAR [facility] 11-11-2020 SARS-CoV-2 (COVID-19 ) mRNA-1273 vaccine Yovany AKHTAR [facility] Payers Date Payer Category Payer Unknown 2023 Unknown [id number] 1965 Unknown [id number] 2.16.84 [id number] 1965 Unknown [id number] 2.16.84 [id number] 1964 Unknown [id number] 2.16.84 0.1.647892.3.579.2.593 1964 Unknown [id number] 2.16.84 0.1.984976.3.579.2.593 1964 Unknown [id number] 2.16.84 0.1.490432.3.579.2.593 1964 Unknown [id number] 2.16.84 0.1.931998.3.579.2.593 1964 Unknown [id number] 2.16.84 0.1.410382.3.579.2.593 1964 Unknown [id number] 2.16.84 0.1.806186.3.579.2.593 1964 Unknown [id number] 2.16.84 0.1.058377.3.579.2.1259 1964 Unknown [id number] 2.16.84 0.1.709845.3.579.2.1259 1964 Unknown [id number] 2.16.84 0.1.727578.3.579.2.1259 1964 Unknown [id number] 2.16. 840.1.861968.3.579.2.196 1964 Unknown [id number] 2.16. 840.1.939738.3.579.2.196 1964 Unknown [id number] 2.16. 840.1.808178.3.579.2.196 1964 Unknown [id number] 2.16.8 40.1.114358.3.579.2.727 1964 Unknown [id number] 2.16.8 40.1.123856.3.579.2.727 1964 Unknown [id number] 2.16.8 40.1.785137.3.579.2.727 1959 Private Health Insurance [id number] Social History Date Type Detail Facility Start: 01-15-2021 End: 09-10-2024 Tobacco smoking status Ex-smoker (finding) [facility] Tobacco smoking status Never [facility] Sex Assigned At Male [facility] Functional Status Date Assessment Result Facility 09-10-2024 Functional Status N/A [facility] 06-11-2024 Functional Status N/A [facility] 06-06-2023 Functional Status N/A [facility] 06-17-2022 Functional Status N/A [facility] 06-10-2022 Functional Status N/A [facility] Clinical Notes 01-21-2022 to 09-10-2024 Laboratory Note Date & Type Note Facility 09-10-2024 Hospital Discharge instructions Patient Education 09/10/2024 09:53:34 Kidney Stones, Zqaj-kz-Agei Kidney Stones Kidney stones are rock-like masses [...] Follow these instructions at home: Medicines Take tfkv-oqv-lznbvkx and prescription medicines only as told by [...] provider. Document Revised: 04/14/2023 Document Reviewed: 04/14/2023 [employer] Patient Education 2023 [employer]. Follow Up Care 08/15/2024 10:52:33 With:GIOVANA CANTOR, Yovany Kwan, URL Address: [facility] [employer] [address] [place] [address]- When: Unknown [facility] 09-10-2024 Note Patient Education Urology Kidney Stones [...] these instructions at home: Medicines ??? Take bmqe-ahl-ykeddcr and prescription medicines only as told by [...] provider. Document Revised: 04/14/2023 Document Reviewed: 04/14/2023 [employer] Patient Education ? 2023 [employer]. [facility] 06-11-2024 Hospital Discharge instructions Patient Education 06/11/2024 [...] you may eat and drink normally. Take eywo-bed-eeomemv and prescription medicines only as told by your health care provider. Let your health care provider know about any medicines that you are taking, including ryyv-fza-chhnfdl medicines, vitamins, herbs, and supplements. Choose a [...] provider. Document Revised: 02/25/2022 Document Reviewed: 02/25/2022 [employer] Patient Education 2023 [employer]. 06/11/2024 08:23:10 Dietary Guidelines to Help Prevent [...] include: ?8 oz (237 mL) of milk, metjgcd-xtkruanfqcfn-iaiqz milk, and calcium-fortifiedfruit juice. Calcium-fortified means that [...] ?Spinach (cooked), rhubarb, beets, sweet potatoes, and Northern Irish chard. ?Peanuts. ?Potato chips, tongan fries, and baked potatoes with skin on. ?Nuts and nut products. ?Chocolate. If you regularly take a diuretic medicine, make sure to eat at least 1 or 2 servings of fruits or vegetables that are high in potassium each day. These include: ?Avocado. ?Banana. ?Loíza, prune, carrot, or tomato juice. ?Baked potato. [...] magnesium, fish oil, or vitamin B6. Take zkab-myu-ezgsfua and prescription medicines only as told by [...] Casseroles. Pizza. Lasagna. Frozen meals. Potato chips. [place] fries. The items listed above may not [...] provider. Document Revised: 12/01/2022 Document Reviewed: 12/01/2022 [employer] Patient Education 2023 [employer]. Follow Up Care 06/06/2023 09:30:15 With:GIOVANA CANTOR, Yovany Kwan, URL Address: [facility] [employer] [place] [phone]- When: Unknown [facility] 06-11-2024 Note Patient Education Nephrology [...] ? 8 oz (237 mL) of milk, qfqunot-ugdxgypclrvk-qvoii milk, and calcium-fortifiedfruit juice. Calcium-fortified means that [...] Spinach (cooked), rhubarb, beets, sweet potatoes, and Northern Irish chard. ? Peanuts. ? Potato chips, tongan fries, and baked potatoes with skin on. ? Nuts and nut products. ? Chocolate. ? If you regularly take a diuretic medicine, make sure to eat at least 1 or 2 servings of fruits or vegetables that are high in potassium each day. These include: ? Avocado. ? Banana. ? Loíza, prune, carrot, or tomato juice. ? Baked [...] fish oil, or vitamin B6. ? Take ryeh-xbb-emgjquy and prescription medicines only as told by your health care provider. These include suppleme (more content not included)... [facility] 06-06-2023 Hospital Discharge instructions Patient Education 06/06/2023 [...] include: ?8 oz (237 mL) of milk, lazaxai-fbbsagztmfsi-rbnar milk, and calcium-fortifiedfruit juice. Calcium-fortified means that [...] ?Spinach (cooked), rhubarb, beets, sweet potatoes, and [place] Irish chard. ?Peanuts. ?Potato chips, tongan fries, and baked potatoes with skin on. ?Nuts and nut products. ?Chocolate. If you regularly take a diuretic medicine, make sure to eat at least 1 or 2 servings of fruits or vegetables that are high in potassium each day. These include: ?Avocado. ?Banana. ?Loíza, prune, carrot, or tomato juice. ?Baked potato. [...] magnesium, fish oil, or vitamin B6. Take vtlf-hzk-jxstdxs and prescription medicines only as told by [...] Casseroles. Pizza. Lasagna. Frozen meals. Potato chips. [place] fries. The items listed above may not [...] provider. Document Revised: 05/02/2022 Document Reviewed: 05/02/2022 [employer] Patient Education 2022 [employer]. Follow Up Care 01/21/2022 09:03:45 With:GIOVANA CANTOR, Yovany Kwan, URL Address: M[address] [place] [phone]- When:Within 1 Year(s) Comments:Oksana [facility] 06-17-2022 Hospital Discharge instructions Patient [...] include: ?Spinach. ?Rhubarb. ?Beets. ?Potato chips and tongan fries. ?Nuts. If you regularly take a diuretic medicine, make sure to eat at least 1 2 fruits or vegetables high in potassium each day. These include: ?Avocado. ?Banana. ?Loíza, prune, carrot, or tomato juice. ?Baked potato. [...] Casseroles. Pizza. Lasagna. Frozen meals. Potato chips. [place] fries. Summary You can reduce your risk [...] 12/16/2011 Document Revised: 12/11/2019 Document Reviewed: 08/01/2017 [employer] Patient Education 2020 [employer] Follow Up Care 06/10/2022 10:24:22 With:GIOVANA CANTOR, Yovany Kwan, URL Address: [address] [address]- When:6 months Comments:w/ [place] [facility] 06-10-2022 Hospital Discharge instructions Patient Education [...] include: ?Spinach. ?Rhubarb. ?Beets. ?Potato chips and tongan fries. ?Nuts. If you regularly take a diuretic medicine, make sure to eat at least 1 2 fruits or vegetables high in potassium each day. These include: ?Avocado. ?Banana. ?Loíza, prune, carrot, or tomato juice. ?Baked potato. [...] Casseroles. Pizza. Lasagna. Frozen meals. Potato chips. [place] fries. Summary You can reduce your risk [...] 12/16/2011 Document Revised: 12/11/2019 Document Reviewed: 08/01/2017 [employer] Patient Education 2020 [employer]. Follow Up Care 05/30/2022 09:25:01 With:GIOVANA CANTOR, Yovany Kwan, URL Address: [address] [place] [id number]- When:2 weeks Comments:K[facility] 01-21-2022 Hospital Discharge instructions Patient [...] urethra. Follow these instructions at home: Take [id number] and prescription medicines only as told by [...] 08/21/2006 Document Revised: 07/16/2019 Document Reviewed: 09/25/2017 [employer] Patient Education 2020 [employer]. Follow Up Care 01/15/2021 08:45:48 With:Yovany AKHTAR MD, URL Address: [facility] [place] [address]- When:01/21/2023 Comments:with PSA and x-ray [facility] Evaluation + Plan note Future Appointments Appointment Date:02/24/2023 08:00:00 AM Scheduled Provider:Yovany AKHTAR MD Location:[facility] Appointment Type:URO Office Visit [facility] Evaluation + Plan note Future Appointments Appointment Date:02/24/2023 08:00:00 AM Scheduled Provider:Yovany AKHTAR MD [facility] Appoint[facility] Type:URO Office Visit Future Scheduled TestsPT & PTT 04/20/22BUN 04/20/22Creatinine 04/20/22Electrolyte Panel 04/20/22CBC w/ Auto Diff 04/20/22 [facility] Evaluation + Plan note Future Appointments Appointment Date:06/17/2022 09:15:00 AM Scheduled Provider:Yovany AKHTAR MD Location:[facility] Appointment Type:URO Office Visit Appointment Date:02/24/2023 08:00:00 AM Scheduled Provider:Yovany AKHTAR MD Location:[facility] Appointment Type:URO Office Visit [facility] Evaluation + Plan note Future Appointments Appointment Date:06/11/2024 08:00:00 AM Scheduled Provider:Yovany AKHTAR MD Location:[facility] Appointment Type:URO Office Visit [facility] Evaluation + Plan note Future Appointments Appointment Date:06/10/2025 08:00:00 AM Scheduled Provider:Yovany AKHTAR MD Location:[facility] Appointment Type:URO Office Visit [facility] Hospital course Narrative No data available for this section [facility] Hospital Discharge instructions No data available for this section [facility] Progress note No data available for this section [facility] Summary Purpose Family History No Family [...] content) Personnel Name: Nancy Fernandez MD Address: [address] [place] [address] Personnel Name: Nancy Fernandez MD Address: Address: [address] [place] [address] Personnel Name: Nancy Fernandez MD Address: Address: [address] [place] [address] Personnel Name: Nancy Fernandez MD Address: Address: [address] [place] [address] Personnel Name: Nancy Fernandez MD Address: Address: [address] [place] [address] [place] [address]- Personnel Name: Nancy Fernandez MD Address: Address: [address] [place] [address] [place] [address]- (unrecognized sect ion and content) No Status Records FoundNo Status Records FoundNo Status Records FoundNo Status Records Found INFORMATION SOURCE (unrecogn ized section and content) DATE CREATED AUTHOR 07/07/2022 [facility] DATE CREATED AUTHOR AUTHOR'S ORGANIZ ATION 12/26/2023 [facility] EPIC DATE CREATED AUTHOR AUTHOR'S ORGANIZ ATION 06/19/2024 [facility] DATE CREATED AUTHOR AUTHOR'S ORGANIZ ATION 09/15/2024 [facility] FOR RECORDS PERTAINING TO [...] BE BASED ON THE PRIMARY CLINICAL RECORDS. [employer] provides no warranty or guarantee of the accuracy or completeness of information in this document.
[2024-10-17 11:42] LABS: Internal Control Within Normal Limits; Occult Blood Positive
== END 2024-10-17 11:15 | disposition home or self-care (01) ==
LOC: LAB 11:14
PROVIDERS: PCP Family Medicine; Visit Provider Family Medicine
DX: Z00.00 Encounter for general adult medical examination without abnormal findings (principal); I10 Essential (primary) hypertension; E03.9 Hypothyroidism, unspecified; E78.5 Hyperlipidemia, unspecified; E11.9 Type 2 diabetes mellitus without complications
CPT/HCPCS: G0328

== ENCOUNTER 2024-11-15 11:03 | Outpatient (OUT) | payer BC, SELFPAY ==
--- OUTSIDE RECORDS SUMMARY | 2024-11-15 11:10 | XMS_ITS | CCD ---
Author Organization [facility] CliniSymd Care Team Providers Care Tub Washer Name Role Phone Nancy Fernandez Primary Care Physician DR NANYC FERNANDEZ Primary Care Unavailable COOK, DR YOVANY Kwan Consulting Unavailable COOK, DR YOVANY Kwan Admitting Unavailable COOK, DR YOVANY Kwan Attending Unavailable JANIE, DR MANSOOR Porras Consulting Unavailable JIM, DR CRUZ Primary Care Unavailable JIM, DR CRUZ Admitting Unavailable JIM, DR CRUZ Attending Unavailable JIM, DR CRUZ Consulting Unavailable JIM, DR CRUZ Primary Care Unavailable GIOVANA, DR YOVANY Kwan Admitting Unavailable COOK, DR YOVANY Kwan Attending Unavailable COOK, DR YOVANY Kwan Consulting Unavailable JANIE, DR MANSOOR Porras Consulting Unavailable JIM, DR CRUZ Primary Care Unavailable GIOVANA, DR YOVANY Kwan Admitting Unavailable COOK, DR YOVANY Kwan Attending Unavailable COOK, DR YOVANY Kwan Consulting Unavailable JANIE, DR MANSOOR Porras Consulting Unavailable JIM, DR CRUZ Admitting Unavailable JIM, DR CRUZ Attending Unavailable JIM, DR CRUZ Consulting Unavailable JIM, DR CRUZ Primary Care Unavailable ZITIFFANY, DR SOLO Oliver Consulting Unavailable MARILU MURGUIA Consulting Unavailable JIM, DR CRUZ Primary Care Unavailable PETAR GARCIA Attending Unavailable PETAR GARCIA Admitting Unavailable JIM, DR CRUZ Primary Care Unavailable RADHA TINSLEY Consulting Unavailable RADHA TINSLEY Admitting Unavailable RADHA TINSLEY Attending Unavailable BOO GUZMAN Consulting Unavailable JIM, DR CRUZ Consulting Unavailable JIM, DR CRUZ Admitting Unavailable JIM, DR CRUZ Attending Unavailable JIM, DR CRUZ Primary Care Unavailable TANISHA CHIU Consulting Unavailable MICHAEL KIM Attending Unavailable NANCY FERNANDEZ Referring Unavailable BALTA OTTO Attending Unavailable NANCY FERNANDEZ Referring Unavailable MICHAEL KIM Attending Unavailable NANCY FERNANDEZ Referring Unavailable Karolina CANTOR, Heather Voss Attending Unavailable Karolina CANTOR, Heather Voss Attending Unavailable Karolina CANTOR, Heather Voss Attending Unavailable Yovany AKHTAR Attending Unavailable Zena Whipple Attending Unavailable Michele RAYGOZA Attending Unavailable Nancy Fernandez Referring Unavailable Yovany AKHTAR Attending Unavailable Allergies Allergy Classification Reported Allergen(s) Allergy Type Date of Onset Reaction(s) Facility (9 sources) Acetaminophen / HYDROcodone; Translations: [acetaminophen-hyd rocodone] Drug Allergy Hyperactive behavior (finding) [facility] Medications Current Medications Medication Drug Class(es) Dates Sig (Normalized) Sig (Original) Albuterol (8 sources) beta2-Adrenergic Agonist Start: 04-28-2017 take 2 [...] Daily, Prophylaxis Start Date: 07/29/20 Status: Ordered aspirin 81 mg delayed release oral tablet (1 source) Platelet Aggregation Inhibitor, Nonsteroidal Anti-inflammatory Drug Start: 10-18-2024 take 1 tablet by mouth once daily aspirin 81 mg Oral EC Tab 81 mg = 1 tab(s), Oral, Daily, Refills(s) 0 Start Date: 10/18/24 Status: Ordered baclofen 10 mg oral tablet (2 sources) gamma-Aminobutyric Acid-ergic Agonist Start: 09-10-2024 baclofen 10 mg Tab 10 mg = 1 tab(s), Oral, As Directed Start Date: 09/10/24 Status: Ordered carvedilol 25 mg oral tablet (8 sources) alpha-Adrenergic Esperanza, beta-Adrenergic Esperanza Start: 03-06-2019 Coreg 25 mg Tab 37.5 mg = 1.5 tab(s), Oral, BID, Prophylaxis Start Date: 03/06/19 Status: Ordered Daily Multiple Vitamins (8 sources) Start: 02-19-2019 take 1 tablet by [...] 0, Inflammation Start Date: 07/29/20 Status: Ordered empagliflozin 10 mg oral tablet (1 source) Sodium-Glucose Cotransporter 2 Inhibitor Start: 10-18-2024 take 1 tablet by mouth once daily in the morning Jardiance 10 mg oral tablet 10 mg = 1 tab(s), Oral, qAM, Refills(s) 0 Start Date: 10/18/24 Status: Ordered glimepiride 4 mg oral tablet (3 sources) Sulfonylurea Start: 10-18-2024 take 1 tablet by mouth once daily glimepiride 4 mg Tab 4 mg = 1 tab(s), Oral, Daily, Refills(s) 0 Start Date: 10/18/24 Status: Ordered Start: 06-11-2024 take 1 mg by mouth once daily glimepiride 2 mg Tab mg tab(s), Oral, Daily, Refills(s) 0 Start Date: 06/11/24 Status: Ordered hydrALAZINE hydrochloride 50 mg oral tablet (8 sources) Arteriolar Vasodilator Start: 10-18-2024 take 1 tablet by mouth three times daily hydrALAZINE 50 mg Tab 50 mg = 1 tab(s), Oral, TID, Refills(s) 0 Start Date: 10/18/24 Status: Ordered Start: 04-28-2017 take 100 mg by mouth three times daily hydrALAZINE 100 mg, Oral, TID, Refills(s) 0, High blood pressure Start Date: 04/28/17 Status: Ordered hydroCHLOROthiazide 50 mg oral tablet (8 sources) Thiazide Diuretic Start: 10-18-2024 take 1 tablet by mouth once daily hydrochlorothiazide 50 mg Tab 50 mg = 1 tab(s), Oral, Daily, Refills(s) 0 Start Date: 10/18/24 Status: Ordered Start: 02-19-2019 take 2 tablets by mo [facility] once daily in the morning hydrochlorothiazide 25 mg oral tablet 50 mg = 2 tab(s), Oral, qAM, Refills(s) 0, High blood pressure Start Date: 02/19/19 Status: Ordered levothyroxine sodium 0.15 mg oral tablet (8 sources) l-Thyroxine Start: 10-18-2024 take 1 tablet by mouth once daily levothyroxine 150 mcg (0.15 mg) Tab 150 mcg = 1 tab(s), Oral, Daily, Refills(s) 0 Start Date: 10/18/24 Status: Ordered Start: 07-29-2020 take 1 tablet by cindy once daily levothyroxine 50 mcg (0.05 mg) Tab 50 mcg = 1 tab(s), Oral, Daily, Thyroid Start Date: 07/29/20 Status: Ordered Start: 07-29-2020 take 1 tablet by cindy once daily levothyroxine 50 mcg (0.05 mg) Tab 50 mcg = 1 tab(s), Oral, Daily, Thyroid Start Date: 07/29/20 Status: Ordered metFORMIN hydrochloride 500 mg oral tablet (8 sources) Biguanide Start: 10-18-2024 take 1 tablet by mouth twice daily metformin 500 mg Tab 500 mg = 1 tab(s), Oral, BID, Refills(s) 0 Start Date: 10/18/24 Status: Ordered Start: 05-08-2020 take 1 tablet by [facility] twice daily metformin 500 mg ER Tab 500 mg = 1 tab(s), Oral, BID, Refills(s) 0, Blood glucose Start Date: 05/08/20 Status: Ordered olmesartan medoxomil 40 mg oral tablet (8 sources) Angiotensin 2 Receptor Esperanza Start: 03-06-2019 take 1 tablet by mouth at bedtime Benicar 40 mg Tab 40 mg = 1 tab(s), Oral, Bedtime, High blood pressure Start Date: 03/06/19 Status: Ordered pravastatin sodium 20 mg oral tablet (8 sources) HMG-CoA Reductase Inhibitor Start: 04-28-2017 take 20 mg by mouth once daily pravastatin 20 mg, Oral, Daily, Refills(s) 0, High cholesterol Start Date: 04/28/17 Status: Ordered rOPINIRole 0.5 mg oral tablet (1 source) Nonergot Dopamine Agonist Start: 10-18-2024 take 2 tablets by mouth at bedtime ropinirole 0.5 mg Tab 1 mg = 2 tab(s), Oral, Bedtime, Refills(s) 0 Start Date: 10/18/24 Status: Ordered tamsulosin hydrochloride 0.4 mg oral capsule (2 sources) alpha-Adrenergic Esperanza Start: 06-10-2022 take 1 capsule by mouth once daily tamsulosin 0.4 mg Cap 0.4 mg = 1 cap(s), Oral, Daily, # 30 cap(s), Refills(s) 2, [id number], 188, cm, 06/10/22 9:57:00 EDT, Height/Length Dosing, 150, kg, 06/10/22 9:57:00 EDT, Weight Dosing Start Date: 06/10/22 Status: Ordered traMADol hydrochloride 50 mg oral tablet (8 sources) Opioid Agonist Start: 01-15-2021 take 50 mg by mouth four times daily as needed for pain Ultram 50 mg, Oral, QID, PRN as needed for pain, Refills(s) 0 Start Date: 01/15/21 Status: Ordered Start: 01-15-2021 take 1 mg by mouth e very six hours as needed for pain Ultram [...] Onset: 01-22-20 Episodic Diabetes mellitus without complication (9 sources) Type 2 diabetes mellitus; Translations: [Type 2 diabetes mellitus without complication] 02-19-2019 Chronic Diseases of white blood cells (2 sources) Leukocytosis 09-10-2024 Chronic Disorders of lipid metabolism (1 source) Hyperlipidemia 10-18-2024 Chronic Esophageal disorders (8 sources) Gastroesophageal reflux disease 07-29-2020 Chronic Essential hypertension (11 sources) Hypertensive disorder; Translations: [Essential (primary) hypertension] Onset: 05-31-2007-29-2020 Chronic Genitourinary symptoms and ill-defined conditions (11 sources) Nocturia; Translations: [Abnormal urinary product] Onset: 09-10-1907-10-2020 Episodic Hyperplasia of prostate (14 sources) Benign prostatic hypertrophy without outflow obstruction; Translations: [Benign prostatic hyperplasia without lower urinary tract symptoms] Onset: 01-22-20 Chronic Neoplasms of unspecified nature or uncertain behavior (8 sources) Neoplasm of uncertain behavior of skin 07-29-2020 Episodic Osteoarthritis (9 sources) Osteoarthritis 02-19-2019 Chronic Other aftercare (7 sources) Long-term current use of anticoagulant 02-19-2019 Episodic Other aftercare (1 source) Other alf (current) drug therapy; Translations: [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] Onset: 05-31-20 Episodic Other aftercare (1 source) FDC (current) use of aspirin; Translations: [FDC CURRENT USE OF ASPIRIN] Onset: 05-31-20 Episodic Other and unspecified benign neoplasm (7 sources) Dermatofibroma 02-19-2019 Episodic Other circulatory disease (8 sources) H/O: cardiovascular disease 04-28-2017 Episodic Comment on above: superficial left leg february 2017 Other gastrointestinal disorders (1 source) Abnormal feces; Translations: [Other fecal abnormalities] Onset: 10-29-19 Episodic Other gastrointestinal disorders (2 sources) Occult blood in stools 10-23-2024 Episodic Other lower respiratory disease (8 sources) History of chronic lung disease 04-28-2017 Episodic Other nervous system disorders (2 sources) Neuropathy 09-10-2024 Chronic Other nutritional; endocrine; and metabolic disorders (8 sources) Body mass index 40+ - severely [...] nutritional; endocrine; and metabolic disorders (1 source) Obese class III 10-18-2024 Chronic Other nutritional; endocrine; and metabolic disorders (8 sources) History of hypercholesterolemia 04-28-2017 Episodic Other nutritional; endocrine; and metabolic disorders (2 sources) Increased uric acid level 09-10-2024 Episod ic Other screening for suspected conditions (not mental disorders or infectious disease) (8 sources) Raised prostate specific antigen 07-10-2020 Episodic Phlebitis; thrombophlebitis and thromboembolism (8 sources) Thrombophlebitis of lower extremities 07-29-2020 Episodic Residual codes; unclassified (1 source) Obstructive sleep apnea syndrome 10-18-2024 Chronic Residual codes; unclassified (7 sources) H/O: anticoagulant therapy 07-10-2020 Episodic Residual codes; unclassified (1 source) Past history of procedure 09-10-2024 Episod ic Spondylosis; intervertebral disc disorders; other back problems (5 sources) Other intervertebral disc displacement, lumbar region; Translations: [Other intervertebral disc degeneration, lumbar region] Onset: 09-29-19 Chronic Spondylosis; intervertebral disc disorders; other back problems (3 sources) Lumbar radiculopathy; Translations: [Cervical radiculopathy] Onset: 01-10-20 24 09-10-2024 Episodic Thyroid disorders (9 sources) Hypothyroidism 07-29-2020 Chronic Unclassified (2 sources) Urine finding 09-10-2024 Urinary tract infections (1 [...] Interpretation Reference Range Facility Ambulatory Visit Summaryon 0 10-29-2024 Ambulatory Visit Summary Ambulatory Visit Summary LIZ SHELBY :1965 Visit Date:10/29/2024 Ambulatory Visit Instructions Your Diagnosis Positive fecal occult blood test Your Care Team Attending Physician - JARET CANTOR, Michele Oliver Primary Care Physician - Jim CANTOR, Nancy Referring Physician - Nancy Fernandez MD This Is Your Medications List Contact prescribing physician if questions or concerns albuterol aspirin (aspirin 81 mg Oral EC Tab) baclofen (baclofen 10 mg Tab) carvedilol (Coreg 25 mg Tab) empagliflozin (Jardiance 10 mg oral tablet) glimepiride (glimepiride 4 mg Tab) hydrALAZINE (hydrALAZINE 50 mg Tab) hydrochlorothiazide (hydrochlorothiazide 50 mg Tab) levothyroxine (levothyroxine 150 mcg (0.15 mg) Tab) metformin (metformin 500 mg Tab) multivitamin (Daily Multiple Vitamins) olmesartan (Benicar 40 mg Tab) pravastatin ropinirole (ropinirole 0.5 mg Tab) tramadol (Ultram) Procedures Performed ESWL - Extracorporeal shockwave lithotripsy for renal calculus (05/26/2022), ESWL - Extracorporeal shockwave lithotripsy for renal calculus (08/13/2020), Colonoscopy (03/27/2019), Colonoscopy (02/2014), Colonoscopy (2004), Anal fistulotomy, Cholecystectomy, Dental surgical procedure, Drainage of perirectal abscess, l4 l5 disectomy, Tonsillectomy. Discharge Vitals Heart Rate (Peripheral) 64 Respiratory Rate 16 Blood Pressure 129/72 Height 187.9 cm Height 74 in Weight 162.7 kg Weight 358.692 lb BMI 46.08 What to do next Scheduled Follow-Up Appointments Monday 8:00 AM EDT With: GIOVANA CANTOR, Yovany Kwan Where: [facility] [address] [place] [address]- Medications What How Much When Instructions Unchanged albuterol 2 Puffs Inhalation Every 6 hours as needed for Wheezing Contact prescribing physician if questions or concerns Unchanged aspirin (aspirin 81 mg Oral EC Tab) 1 Tablets By Mouth Every day Contact prescribing physician if questions or concerns Unchanged baclofen (baclofen 10 mg Tab) 1 Tablets By Mouth As Directed Contact prescribing physician if questions or concerns Unchanged carvedilol (Coreg 25 mg Tab) 1.5 Tablets By Mouth 2 times a day Contact prescribing physician if questions or concerns Unchanged empagliflozin (Jardiance 10 mg oral tablet) 1 Tablets By Mouth Once a day (in the morning) Contact prescribing physician if questions or concerns Unchanged glimepiride (glimepiride 4 mg Tab) 1 Tablets By Mouth Every day Contact prescribing physician if questions or concerns Unchanged hydrALAZINE (hydrALAZINE 50 mg Tab) 1 Tablets By Mouth 3 times a day Contact prescribing physician if questions or concerns Unchanged hydrochlorothiazide (hydrochlorothiazide 50 mg Tab) 1 Tablets By Mouth Every day Contact prescribing physician if questions or concerns Unchanged levothyroxine (levothyroxine 150 mcg (0.15 mg) Tab) 1 Tablets By Mouth Every day Contact prescribing physician if questions or concerns Unchanged metformin (metformin 500 mg Tab) 1 Tablets By Mouth 2 times [...] prescribing physician if questions or concerns Unchanged ropinirole (ropinirole 0.5 mg Tab) 2 Tablets By Mouth At bedtime Contact prescribing physician if questions or concerns Unchanged tramadol (Ultram) 50 Milligram By Mouth 4 times a day as needed for as needed for pain Contact prescribing physician if questions or concerns Allergies Vicodin (Hyperactive) Problems Ongoing - Any problem that you are currently receiving treatment for. BMI 45.0-49.9, adult BPH (benign prostatic hyperplasia) Cervical radiculopathy Class 3 obesity Diabetes mellitus type 2, noninsulin dependent Elevated PSA Hypercalciuria Hyperlipidemia Hyperuricosuria Hypocitraturia Hypothyroidism Kidney stone Leukocytosis Lumbar radiculopathy Neuropathy Nocturia Occult blood positive stool MARGE (obstructive sleep apnea) Osteoarthritis Positive fecal occult blood test Historical - Any problem that you are [...] you for choosing us for your care. Normal [facility] Reminderson 10-29-2024 Reminders Reminders From: Alexia Vega LPN To: GSN - Clinical; Sent: 10/29/2024 09:31:53 EST Show up: 02/16/2029 07:00:00 EDT Subject: colonoscopy recall Due Date/Time: 03/04/2029 07:00:00 EDT Reminder/Recall Patient is due for screening colonoscopy 03/2029. Normal [facility] Urology Office/Clinic Noteon 09-12-2024 Urology Office/Clinic Note [...] patient Follow up in Jun 2025 w MT as scheduled Ordered: Urnls Dip Stick Auto w/o Microscopy POC 15743 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 Normal [facility] Comment on above: Result Comment: Elec tronically Signed By: ELSIE Whipple APRN, Zena Huff\.br\Date and Time Signed: 09/12/24 11:40 EST\.br\Electronically Co-Signed [...] Yovany AKHTAR MD Where: [facility] [address] 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 (more content not included)... Normal [facility] Ambulatory Visit Summaryon 1 Ambulatory Visit [...] Yovany AKHTAR MD Where: [facility] [address] 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 (more content not included)... Normal [facility] Urology Office/Clinic Noteon 06-11-2024 Urology Office/Clinic Note [...] read as negative at the [facility] but to my review there may [...] Contact Information Yovany AKHTAR MD, URL [address] [place], [place] [id number]- Additional Instructions: 1 yr with KUB and [...] with voice recognition artificial intelligence software, specifically [employer], [employer] and or [employer]. Substitutions may have occurred due to the inherent limitations of voice recognition and artificial intelligence software. Problem List/Past Medical History Ongoing BMI 40.0-44.9, adult BPH (benign prostatic hyperplasia) Chronic anticoagulation Dermatofibroma of left upper arm Diabetes mellitus type 2, noninsulin dependent Elevated PSA Hx of alf use of blood thinners Kidney stone Nocturia Osteoarthritis Historical GERD (gastroesophag (more content not included)... Normal [facility] Comment on above: Result Comment: Elec tronically [...] MANSOOR LIMA Date: 2022-06-16 18:56 Normal [facility] XR KUB 1 VIEWon 06-09-2022 XR [...] Date: 2022-06-09 17:41 Normal [facility] CBC AUTO DIFFon 05-29-2022 BASO # 0.1 103/ul Normal 0.0-0.1 [facility] Comment on above: Performed By: #### C BC ####[facility] [address] [place] [id number]. Wyatt Aldrich Basophils/100 WBC (Bld) 0.2 % Normal 0.2-2.0 [facility] Comment on above: Performed By: #### C BC ####[facility] [address] [place], [place] [address]Nr. Wyatt Aldrich EO # 0.0 103/ul Normal 0.0-0.7 [facility] Comment on above: Performed By: #### C BC ####[facility] [address] [place] [id number]. Wyatt Aldrich Eosinophils/100 WBC (Bld) 0.2 % Critically low 0.9-7.0 [facility] Comment on above: Performed By: #### C BC ####[facility] [address] [place] [address]Dr. Wyatt Aldrich Erythrocyte distribution width (RBC) [Ratio] 12.3 % Normal 11.0-15.0 [facility] Comment on above: Performed By: #### C BC ####[facility] [address] [place] [address]Dr. Wyatt Aldrich Hematocrit (Bld) [Volume fraction] 45.9 % Normal 42.0-54.0 [facility] Comment on above: Performed By: #### C BC ####[facility] [address] [place], [place] [address]Dr. Wyatt Aldrich Hemoglobin (Bld) [Mass/Vol] 15.2 g/dL Normal 14.0-18.0 [facility] Comment on above: Performed By: #### C BC ####[facility] [address] [place], [place] [address]DrCullen Wyatt Aldrich IG # 0.09 10e3/ul Critically high 0.00-0.03 [facility] Comment on above: Performed By: #### C BC ####[facility] [address] [place], [place] [address]DrCullen Wyatt Aldrich IG % 0.4 % Normal 0.0-0.5 [facility] Comment on above: Performed By: #### C BC ####[facility] [address] [place], [place] [address]DrCullen Wyatt Aldrich LYMPH # 1.1 103/ul Critically low 1.2-3.8 [facility] Comment on above: Performed By: #### C BC ####[facility] [address] [place], [place] [address]DrCullen Wyatt Aldrich Lymphocytes/100 WBC (Bld) 5.1 % Critically low 20.5-60.0 [facility] Comment on above: Performed By: #### C BC ####[facility] [address] [place], [place] [address]DrCullen Wyatt Valdemar MANUAL DIFF REQ NO Normal [facility] Comment on above: Performed By: #### C BC ####[facility] [address] [place] [id number]. Wyatt Valdemar MCH (RBC) [Entitic mass] 30.2 pg Normal 25.9-34.0 [facility] Comment on above: Performed By: #### C BC ####[facility] [address] [place] [address]Dr. Jossielalo Valdemar MCHC (RBC) [Mass/Vol] 33.1 g/dL Normal 29.9-35.2 [facility] Comment on above: Performed By: #### C BC ####[facility] [address] [place] [address]Dr. Wyatt Aldrich MCV (RBC) [Entitic vol] 91.3 fL Normal 80.0-94.0 [facility] Comment on above: Performed By: #### C BC ####[facility] [address] [place], [place] [address]Dr. Wyatt Aldrich MONO # 1.4 103/ul Critically high 0.3-0.[address] [facility] Comment on above: Performed By: #### C BC ####[facility] [address] [place], [place] [address]Dr. Wyatt Aldrich Monocytes/100 WBC (Bld) 6.7 % Normal 1.7-12.0 [facility] Comment on above: Performed By: #### C BC ####[facility] [address] [place], [place] [address]Dr. Wyatt Aldrich NEUT # 18.5 103/ul Critically high 1.4-6.5 [facility] [place] [facility] Comment on above: Performed By: #### C BC ####[facility] [address] [place], [place] [id number] Aldrich Neutrophils/100 WBC (Bld) 87.4 % Critically high 43.0-75.0 [facility] Comment on above: Performed By: #### C BC ####[facility] [address] [place], [place] [address]DrCullen Aldrich Platelet mean volume (Bld) [Entitic vol] 9.3 fL Critically low 9.5-13.5 [facility] Comment on above: Performed By: #### C BC ####[facility] [address] [place], [place] [address]Ey. Wyatt Aldrich PLT 303 103/ul Normal 150-450 [facility] Comment on above: Performed By: #### C BC ####[facility] [address] [place], [place] [address]Zj. Wyatt Aldrich RBC 5.03 106/ul Normal 4.70-6.10 [facility] Comment on above: Performed By: #### C BC ####[facility] [address] [place], [place] [address]Nh. Wyatt Aldrich WBC 21.2 103/ul Critically high 4.0-11.0 [facility] [place] [facility] Comment on above: Performed By: #### C BC ####[facility] [address] [place], [place] [address] ABD/PELVIS WO CONon 05-29 [...] by: BOO GUZMAN Date: 2022-05-29 17:32 Normal [facility] ER URINE PROFILEon 2 Bilirubin Ql (U) Negative Normal NEGATIVE [facility] Comment on above: Performed By: #### U MICRO, ERUR #### [facility] [address] [place] [address] Dr. Wyatt Aldrich Clarity (U) CLEAR Normal CLEAR [facility] Comment on above: Performed By: #### U MICRO, ERUR #### [facility] [address] [address] [address] Wyatt Aldrich Color (U) LT. YELLOW Normal YELLOW [facility] Comment on above: Performed By: #### U MICRO, ERUR #### [facility] [address] [place] [address] Dr. Wyatt Aldrich ERUPANCHOD A micrscopic examina tion will be performed if indicated. Normal [facility] Comment on above: Performed By: #### U MICRO, ERUR #### [facility] [address] [address] [address] Wyatt Aldrich Glucose Ql (U) Negative Normal NEGATIVE [facility] Comment on above: Performed By: #### U MICRO, ERUR #### [facility] [address] [place] [address] Dr. Wyatt Aldrich Hemoglobin Ql (U) TRACE-INTACT Abnormal NEGATIVE [facility] Comment on above: Performed By: #### U MICRO, ERUR #### [facility] [address] [address] [address] Wyatt Aldrich Ketones Ql (U) Negative Normal NEGATIVE [facility] Comment on above: Performed By: #### U MICRO, ERUR #### [facility] [address] [address] [address] Wyatt Aldrich LEUKOCYTES Negative Normal NEGATIVE [facility] Comment on above: Performed By: #### U MICRO, ERUR #### [facility] [address] [place] [address] Dr. Wyatt Aldrich Nitrite Ql (U) Negative Normal NEGATIVE [facility] Comment on above: Performed By: #### U MICRO, ERUR #### [facility] [address] [address] [address] Wyatt Aldrich pH (U) 7.0 [pH] Normal 5-9 [facility] Comment on above: Performed By: #### U MICRO, ERUR #### [facility] [address] [address] [address] Wyatt Aldrich SPEC GRAVITY 1.020 Normal 1.005-<=1.025 [facility] Comment on above: Performed By: #### U MICRO, ERUR #### [facility] [address] [place] [address] Dr. Wyatt Aldrich UA PROTEIN Negative Normal NEGATIVE/ TRACE [facility] Comment on above: Performed By: #### U MICRO, ERUR #### [facility] [address] [place] [address] Dr. Wyatt Aldrich UR MICRO IND INDICATED Normal [facility] Comment on above: Performed By: #### U MICRO, ERUR #### [facility] [address] [place] [address] Dr. Wyatt Aldrich Urobilinogen Qn (U) 0.2 {Sharon'U}/dL Normal 0.2 - 1. 0 [facility] Comment on above: Performed By: #### U MICRO, ERUR #### [facility] [address] [place] [address] Dr. Wyatt Aldrich PROF 14(COMP METB)on 022 Albumin [Mass/Vol] 3.9 g/dL Normal 3.4-5.0 [facility] Comment on above: Performed By: #### C MP #### [facility] [address] [place] [address] Dr. Wyatt Aldrich Albumin/Globulin [Mass ratio] 1.1 {ratio} Normal [facility] Comment on above: Performed By: #### C MP #### [facility] [address] [place] [address] Dr. Wyatt Aldrich ALP [Catalytic activity/Vol] 70 U/L Normal 46-116 [facility] Comment on above: Performed By: #### C MP #### [facility] [address] [address] [address] Wyatt Aldrich ALT [Catalytic activity/Vol] 38 U/L Normal 16-63 [facility] Comment on above: Performed By: #### C MP #### [facility] [address] [place] [address] Dr. Wyatt Aldrich Anion gap [Moles/Vol] 12.6 mmol/L Normal [facility] Comment on above: Performed By: #### C MP #### [facility] [address] [address] [address] Wyatt Aldrich AST [Catalytic activity/Vol] 20 U/L Normal 15-37 [facility] Comment on above: Performed By: #### C MP #### [facility] [address] [address] [address] Wyatt Aldrich Bilirubin [Mass/Vol] 0.6 mg/dL Normal 0.2-1.0 [facility] Comment on above: Performed By: #### C MP #### [facility] [address] [place] [address] Dr. Wyatt Aldrich Calcium [Mass/Vol] 8.7 mg/dL Normal 8.5-10.1 [facility] Comment on above: Performed By: #### C MP #### [facility] [address] [place] [address] Dr. Wyatt Aldrich Chloride [Moles/Vol] 95 mmol/L Critically low 98-107 [facility] Comment on above: Performed By: #### C MP #### [facility] [address] [address] [address] Wyatt Aldrich CO2 [Moles/Vol] 29.9 mmol/L Normal 21.0-32.0 [facility] [place] [facility] Comment on above: Performed By: #### C MP #### [facility] [address] [address] [address] Wyatt Aldrich Creatinine [Mass/Vol] 1.04 mg/dL Normal 0.70-1.30 [facility] Comment on above: Performed By: #### C MP #### [facility] [address] [address] [address] Wyatt Aldrich EGFR-AF [place] >60 Normal >=60 [facility] Comment on above: Performed By: #### C MP #### [facility] [address] [address] [address] Wyatt Aldrich EGFR-NON AF [place] >60 Normal >=60 [facility] Comment on above: Performed By: #### C MP #### [facility] [address] [address] [address] Wyatt Aldrich Globulin (S) [Mass/Vol] 3.4 g/dL Normal [facility] Comment on above: Performed By: #### C MP #### [facility] [address] [address] [address] Wyatt Aldrich Glucose [Mass/Vol] 148 mg/dL Critically high 74-106 T [facility] Comment on above: Performed By: #### C MP #### [facility] [address] [address] [address] Wyatt Aldrich Potassium [Moles/Vol] 4.5 mmol/L Normal 3.5-5.1 [facility] Comment on above: Performed By: #### C MP #### [facility] [address] [address] [address] Wyatt Aldrich Protein [Mass/Vol] 7.3 g/dL Normal 6.4-8.2 [facility] Comment on above: Performed By: #### C MP #### [facility] [address] [address] [address] Wyatt Aldrich Sodium [Moles/Vol] 133 mmol/L Critically low 136-[address] [facility] Comment on above: Performed By: #### C MP #### [facility] [address] [address] [address] Wyatt Aldrich Urea nitrogen [Mass/Vol] 15.0 mg/dL Normal 7.0-18.0 [facility] Comment on above: Performed By: #### C MP #### [facility] [address] [address] [address] Wyatt Aldrich Urea nitrogen/Creatinine [Mass ratio] 14.4 mg/mg Normal [facility] Comment on above: Performed By: #### C MP #### [facility] [address] [address] [address] Wyatt Aldrich URINE MICROSCOPIC ONLYon BACTERIA NONE SEEN Normal NONE SEEN [facility] Comment on above: Performed By: #### U MICRO, ERUR #### [facility] [address] [place] [address] Dr. Wyatt Aldrich Bacteria identified Cx Nom (U) NOT INDICATED Normal [facility] Comment on above: Performed By: #### U MICRO, ERUR #### [facility] [address] [place] [address] Dr. Wyatt Aldrich CAST NONE SEEN Normal NONE SEEN [facility] Comment on above: Performed By: #### U MICRO, ERUR #### [facility] [address] [place] [address] Dr. Wyatt Aldrich Crystals LM Nom (Urine sed) NONE SEEN Normal NONE SEEN [facility] Comment on above: Performed By: #### U MICRO, ERUR #### [facility] [address] [place] [address] Dr. Wyatt Alrdich Epithelial cells LM Ql (Urine sed) NONE SEEN Normal NONE SEEN /RARE [facility] Comment on above: Performed By: #### U MICRO, ERUR #### [facility] [address] [place] [address] Dr. Wyatt Aldrich MUCOUS NONE SEEN Normal NONE SEEN [facility] Comment on above: Performed By: #### U MICRO, ERUR #### [facility] [address] [place] [address] Dr. Wyatt Aldrich RBC 2-5 Abnormal 0-2 [facility] Comment on above: Performed By: #### U MICRO, ERUR #### [facility] [address] [place] [address] Dr. Wyatt Aldrich WBC NONE SEEN Normal NONE SEEN [facility] Comment on above: Performed By: #### U MICRO, ERUR #### [facility] [address] [place] [address] Dr. Wyatt Aldrich T4 [facility]on 01-29-2022 T4 [Mass/Vol] 9.1 ug/dL Normal 4.5-12.0 [facility] Comment on above: Performed By: #### T 4LC ####[facility] [address] [address]Dr. Wyatt Valdemar CBC AUTO DIFFon 01-28-2022 BASO # 0.1 103/ul Normal 0.0-0.1 [facility] Comment on above: Performed By: #### C BC ####[facility] [address] [place], [place] [address]Dr. Wyatt Aldrich Basophils/100 WBC (Bld) 0.6 % Normal 0.2-2.0 [facility] Comment on above: Performed By: #### C BC ####[facility] [address] [place], [place] [address]Dr. Wyatt Aldrich EO # 0.2 103/ul Normal 0.0-0.7 [facility] Comment on above: Performed By: #### C BC ####[facility] [address] [place], [place] [address]Dr. Jossielalo Aldrich Eosinophils/100 WBC (Bld) 2.4 % Normal 0.9-7.0 [facility] Comment on above: Performed By: #### C BC ####[facility] [address] [place], [place] [address]Dr. Jossielalo Aldrich Erythrocyte distribution width (RBC) [Ratio] 12.5 % Normal 11.0-15.0 [facility] Comment on above: Performed By: #### C BC ####[facility] [address] [place], [place] [address]Dr. Wyatt Aldrich Hematocrit (Bld) [Volume fraction] 43.5 % Normal 42.0-54.0 [facility] Comment on above: Performed By: #### C BC ####[facility] [address] [place], [place] [address]Dr. Wyatt Aldrich Hemoglobin (Bld) [Mass/Vol] 14.4 g/dL Normal 14.0-18.0 [facility] Comment on above: Performed By: #### C BC ####[facility] [address] [id number]. Wyatt Aldrich IG # 0.03 10e3/ul Normal 0.00-0.03 [facility] Comment on above: Performed By: #### C BC ####[facility] [address] [address]Dr. Wyatt Aldrich IG % 0.4 % Normal 0.0-0.5 [facility] Comment on above: Performed By: #### C BC ####[facility] [address] [address]Dr. Wyatt Valdemar LYMPH # 2.1 103/ul Normal 1.2-3.8 [facility] Comment on above: Performed By: #### C BC ####[facility] [address] [address]Dr. Wyatt Aldrich Lymphocytes/100 WBC (Bld) 24.8 % Normal 20.5-60.0 [facility] Comment on above: Performed By: #### C BC ####[facility] [address] [address]Dr. Jossielalo Aldrich MANUAL DIFF REQ NO Normal [facility] Comment on above: Performed By: #### C BC ####[facility] [address] [address]Dr. Wyatt Aldrich MCH (RBC) [Entitic mass] 30.6 pg Normal 25.9-34.0 [facility] Comment on above: Performed By: #### C BC ####[facility] [address] [address]Dr. Wyatt Aldrich MCHC (RBC) [Mass/Vol] 33.1 g/dL Normal 29.9-35.2 [facility] Comment on above: Performed By: #### C BC ####[facility] [address] [address]Dr. Wyatt Aldrich MCV (RBC) [Entitic vol] 92.6 fL Normal 80.0-94.0 [facility] Comment on above: Performed By: #### C BC ####[facility] [address] [place] [address]Py. Wyatt Aldrich MONO # 0.6 103/ul Normal 0.3-0.8 [facility] Comment on above: Performed By: #### C BC ####[facility] [address] [address]Dr. Wyatt Aldrich Monocytes/100 WBC (Bld) 7.7 % Normal 1.7-12.0 [facility] Comment on above: Performed By: #### C BC ####[facility] [address] [place], [place] [address]Dr. Wyatt Aldrich NEUT # 5.3 103/ul Normal 1.4-6.5 [facility] Comment on above: Performed By: #### C BC ####[facility] [address] [place], [place] [address]Dr. Wyatt Aldrich Neutrophils/100 WBC (Bld) 64.1 % Normal 43.0-75.0 [facility] Comment on above: Performed By: #### C BC ####[facility] [address] [place], [place] [address]Dr. Wyatt Aldrich Platelet mean volume (Bld) [Entitic vol] 9.4 fL Critically low 9.5-13.5 [facility] Comment on above: Performed By: #### C BC ####[facility] [address] [place], [place] [address]Dr. Wyatt Aldrich PLT 280 103/ul Normal 150-450 [facility] Comment on above: Performed By: #### C BC ####[facility] [address] [place], [place] [address]Dr. Wyatt Aldrich RBC 4.70 106/ul Normal 4.70-6.10 [facility] Comment on above: Performed By: #### C BC ####[facility] [address] [place], [place] [address]Dr. Wyatt Aldrich WBC 8.3 103/ul Normal 4.0-11.0 [facility] Comment on above: Performed By: #### C BC ####[facility] [address] [place], [place] [address]Dr. Wyatt Aldrich FREE T3on 05-27-2022 FREE T3 2.70 pg/mlL Normal 2.18-3.98 [facility] Comment on above: Performed By: #### L IPID, CMP, TSH, FT3 ####[facility] [address] [place], [place] [address]QbDr. Wyatt Aldrich GLYCOHEMOGLOBIN A1Con 2021 ADA RECOMMENDATION SEE BELOW Normal [facility] Comment on above: Result Comment: ADA RECOMMENDED LIMIT 4.0 - 6.0 ADA THERAPEUTIC TARGET < 7.0 ACTION SUGGESTED > 7.0 Performed By: #### A 1C #### [facility] [address] [address] [address] Wyatt Aldrich Glucose [Mass/Vol] 143 mg/dL Normal [facility] Comment on above: Performed By: #### A 1C #### [facility] [address] [address] [address] Wyatt Aldrich HbA1c (Bld) [Mass fraction] 6.6 % Critically high 4.5-6.2 [facility] Comment on above: Performed By: #### A 1C #### [facility] [address] [address] [address] Wyatt Aldrich LIPID PROFILEon 01-28-2022 CHOL-HDL RATIO NORM SEE BELOW Normal [facility] Comment on above: Result Comment: 3.3 - 4.4 LOW RISK 4.4 - 7.1 AVERAGE RISK 7.1 - 11.0 MODERATE RISK >11.0 HIGH RISK Performed By: #### L IPID, CMP, TSH, FT3 ####[facility] [address] [id number]. Wyatt Aldrich Cholesterol [Mass/Vol] 176 mg/dL Normal <=200 [facility] Comment on above: Performed By: #### L IPID, CMP, TSH, FT3 ####[facility] [address] [id number]. Wyatt Aldrich Cholesterol in HDL [Mass/Vol] 35 mg/dL Critically low 40-60 [facility] Comment on above: Performed By: #### L IPID, CMP, TSH, FT3 ####[facility] [address] [place], [place] [address]Qn. Wyatt Valdemar Cholesterol in LDL [Mass/Vol] 94.4 mg/dL Normal [facility] Comment on above: Performed By: #### L IPID, CMP, TSH, FT3 ####[facility] [address] [place], [place] [address]Fq. Wyatt Aldrich Cholesterol.total/Ch olesterol in HDL [Mass ratio] 5.0 {ratio} Normal [facility] Comment on above: Performed By: #### L IPID, CMP, TSH, FT3 ####[facility] [address] [id number]. Wyatt Aldrich HDL NORMAL > or = 60 mg/dl - LO W CARDIOVASCULAR RISK <40 mg/dl - HIGH CARDIOVASCULAR RISK Normal [facility] Comment on above: Performed By: #### L IPID, CMP, TSH, FT3 ####[facility] [address] [id number]. Wyatt Aldrich LDL CALC NORMAL SEE BELOW Normal [facility] Comment on above: Result Comment: <100 mg/dl OPTIMAL 100 - 129 mg/dl NEAR OR ABOVE OPTIMAL 130 - 159 mg/dl BORDERLINE HIGH 160 - 189 mg/dl HIGH >190 mg/dl VERY HIGH Performed By: #### L IPID, CMP, TSH, FT3 ####[facility] [address] [id number]. Wyatt Aldrich Triglyceride [Mass/Vol] 233 mg/dL Critically high <=150 [facility] Comment on above: Performed By: #### L IPID, CMP, TSH, FT3 ####[facility] [address] [id number]. Wyatt Aldrich VLDL CALC 46.6 mg/dL Normal [facility] Comment on above: Performed By: #### L IPID, CMP, TSH, FT3 ####[facility] [address] [id number]. Wyatt Aldrich OCC BLD IMMUNO SCREENon 05 OCCULT BLOOD Negative Normal NEGATIVE [facility] Comment on above: Performed By: #### O BSCRN #### [facility] [address] [address] [address] Wyatt Aldrich PROF 14(COMP METB)on 022 Albumin [Mass/Vol] 3.4 g/dL Normal 3.4-5.0 [facility] Comment on above: Performed By: #### L IPID, CMP, TSH, FT3 ####[facility] [address] [address]Dr. Wyatt Aldrich Albumin/Globulin [Mass ratio] 1.0 {ratio} Normal [facility] Comment on above: Performed By: #### L IPID, CMP, TSH, FT3 ####[facility] [address] [address]Dr. Wyatt Aldrich ALP [Catalytic activity/Vol] 65 U/L Normal 46-116 [facility] Comment on above: Performed By: #### L IPID, CMP, TSH, FT3 ####[facility] [address] [address]Dr. Wyatt Aldrich ALT [Catalytic activity/Vol] 45 U/L Normal 16-63 [facility] Comment on above: Performed By: #### L IPID, CMP, TSH, FT3 ####[facility] [address] [address]Dr. Wyatt Aldrich Anion gap [Moles/Vol] 9.7 mmol/L Normal [facility] Comment on above: Performed By: #### L IPID, CMP, TSH, FT3 ####[facility] [address] [address]Dr. Wyatt Aldrich AST [Catalytic activity/Vol] 20 U/L Normal 15-37 [facility] Comment on above: Performed By: #### L IPID, CMP, TSH, FT3 ####[facility] [address] [address]Dr. Wyatt Aldrich Bilirubin [Mass/Vol] 0.4 mg/dL Normal 0.2-1.0 [facility] Comment on above: Performed By: #### L IPID, CMP, TSH, FT3 ####[facility] [address] [address]Dr. Wyatt Aldrich Calcium [Mass/Vol] 8.5 mg/dL Normal 8.5-10.1 [facility] Comment on above: Performed By: #### L IPID, CMP, TSH, FT3 ####[facility] [address] [address]Dr. Wyatt Aldrich Chloride [Moles/Vol] 101 mmol/L Normal 98-107 [facility] Comment on above: Performed By: #### L IPID, CMP, TSH, FT3 ####[facility] [address] [address]Dr. Wyatt Aldrich CO2 [Moles/Vol] 33.3 mmol/L Critically high 21.0-32.0 [facility] Comment on above: Performed By: #### L IPID, CMP, TSH, FT3 ####[facility] [address] [address]Dr. Wyatt Aldrich Creatinine [Mass/Vol] 0.77 mg/dL Normal 0.70-1.30 [facility] Comment on above: Performed By: #### L IPID, CMP, TSH, FT3 ####[facility] [address] [place], [place] [address]Dr. Wyatt Valdemar EGFR-AF [place] >60 Normal >=60 [facility] [place] [facility] Comment on above: Performed By: #### L IPID, CMP, TSH, FT3 ####[facility] [address] [address]Dr. Wyatt Valdemar EGFR-NON AF [place] >60 Normal >=60 [facility] Comment on above: Performed By: #### L IPID, CMP, TSH, FT3 ####[facility] [address] [address]Dr. Jossielalo Aldrich Globulin (S) [Mass/Vol] 3.3 g/dL Normal [facility] Comment on above: Performed By: #### L IPID, CMP, TSH, FT3 ####[facility] [address] [address]Dr. Wyatt Aldrich Glucose [Mass/Vol] 137 mg/dL Critically high 74-106 [facility] Comment on above: Performed By: #### L IPID, CMP, TSH, FT3 ####[facility] [address] [address]Dr. Wyatt Aldrich Potassium [Moles/Vol] 4.0 mmol/L Normal 3.5-5.1 [facility] Comment on above: Performed By: #### L IPID, CMP, TSH, FT3 ####[facility] [address] [address]Dr. Wyatt Aldrich Protein [Mass/Vol] 6.7 g/dL Normal 6.4-8.2 [facility] Comment on above: Performed By: #### L IPID, CMP, TSH, FT3 ####[facility] [address] [address]Dr. Wyatt Aldrich Sodium [Moles/Vol] 140 mmol/L Normal 136-145 [facility] Comment on above: Performed By: #### L IPID, CMP, TSH, FT3 ####[facility] [address] [address]Dr. Wyatt Aldrich Urea nitrogen [Mass/Vol] 13.0 mg/dL Normal 7.0-18.0 [facility] Comment on above: Performed By: #### L IPID, CMP, TSH, FT3 ####[facility] [address] [address]Dr. Wyatt Aldrich Urea nitrogen/Creatinine [Mass ratio] 16.9 mg/mg Normal [facility] Comment on above: Performed By: #### L IPID, CMP, TSH, FT3 ####[facility] [address] [address]Dr. Wyatt Aldrich TSHon 01-28-2022 TSH 5.562 uIU/mL Critically high 0.358-3.740 [facility] Comment on above: Performed By: #### L IPID, CMP, TSH, FT3 ####[facility] [address] [address]Dr. Wyatt Aldrich TSH RANGE SEE BELOW Normal [facility] Comment on above: Result Comment: <0.3 4 UIU/ml HYPERTHYROID 0.34-5.60 UIU/ml EUTHYROID >5.60 UIU/ml HYPOTHYROID Performed By: #### L IPID, CMP, TSH, FT3 ####[facility] [address] [place], [place] [address]Qw. Wyatt Aldrich XR KUB 1 VIEWon 01-20-2022 [...] Date: 2022-01-20 14:12 Normal [facility] MRI LSPINE WO W CONon 2021 [...] by: TANISHA CHIU Date: 2021-10-04 11:23 Normal [facility] XR LSPINE MIN 4 VIEWSon 09-05 XR [...] by: SOLO SAVAGE Date: 2021-09-27 11:31 Normal [facility] Vital Signs Date Time Vital Sign Value Performing Clinician Jessi chowdhury 10-29-2024 08:25-0500 Blood Pressure Location Michele RAYGOZA [facility] [place] 10-29-2024 08:25-0500 Diastolic blood pressure 72 mm[Hg] [facility] [facility] [place] 10-29-2024 08:25-0500 Heart rate 64 /min Michele RAYGOZA [facility] [place] 10-29-2024 08:25-0500 Respiratory rate 16 /min Michele NILL [facility] [place] 10-29-2024 08:25-0500 Systolic blood pressure 129 mm[Hg] Michlee NILL [facility] [place] 09-10-2024 09:50-0500 Diastolic blood pressure 78 mm[Hg] Zena Orzech [facility] 09-10-2024 09:50-0500 Mean blood pressure 99 mm[Hg] Zena Orzech [facility] 09-10-2024 09:50-0500 Systolic blood pressure 140 mm[Hg] Zena Orzech [facility] 09-10-2024 09:27-0500 Blood Pressure Location Zena Orzech [facility] 09-10-2024 09:27-0500 Body temperature 98.6 [degF] Zena Orzech [facility] 09-10-2024 09:27-0500 Diastolic blood pressure 96 mm[Hg] Zena Orzech [facility] 09-10-2024 09:27-0500 Heart rate 69 /min Zena Orzech [facility] 09-10-2024 09:27-0500 Systolic blood pressure 190 mm[Hg] Zena Orzech [facility] 06-11-2024 08:19-0400 Blood Pressure Location Yovany AKHTAR [facility] 06-11-2024 08:19-0400 Diastolic blood pressure 111 mm[Hg] Yovany COOK [facility] 06-11-2024 08:19-0400 Heart rate 71 /min Yovany COOK [facility] 06-11-2024 08:19-0400 Systolic blood pressure 190 mm[Hg] Yovany COOK [facility] 06-06-2023 08:48-0400 Blood Pressure Location Yovany COOK [facility] 06-06-2023 08:48-0400 Diastolic blood pressure 66 mm[Hg] Yovany COOK [facility] 06-06-2023 08:48-0400 Heart rate 83 /min Yovany COOK [facility] 06-06-2023 08:48-0400 Systolic blood pressure 142 mm[Hg] Yovany COOK [facility] 06-17-2022 09:14-0400 Blood Pressure Location Yovany COOK [facility] 06-17-2022 09:14-0400 Diastolic blood pressure 96 mm[Hg] Yovany COOK [facility] 06-17-2022 09:14-0400 Heart rate 67 /min Yovany COOK [facility] 06-17-2022 09:14-0400 Systolic blood pressure 159 mm[Hg] Yovany COOK [facility] 06-10-2022 09:54-0400 Blood Pressure Location Yovany AKHTAR [facility] 06-10-2022 09:54-0400 Diastolic blood pressure 102 mm[Hg] Yovany COOK [facility] 06-10-2022 09:54-0400 Heart rate 68 /min Yovany COOK [facility] 06-10-2022 09:54-0400 Systolic blood pressure 166 mm[Hg] Yovany COOK [facility] 01-21-2022 08:44-0400 Blood Pressure Location Yovany Skataz [facility] [place] 01-21-2022 08:44-0400 Diastolic blood pressure 87 mm[Hg] Yovany AKHTAR [facility] [place] 01-21-2022 08:44-0400 Heart rate 72 /min Yovany AKHTAR [facility] [place] 01-21-2022 08:44-0400 Systolic blood pressure 140 mm[Hg] Yovany Skataz [facility] Encounter Date Encounter Type Care Provider Facility Start: 10-29-2024 End: 10-29-2024 ambulatory Michele RAYGOZA Facility: [facility] Start: 10-29-2024 End: 10-29-2024 Patient encounter procedure Michele RAYGOZA [facility] [place] Start: 10-18-2024 ambulatory Yovany AKHTAR Facility:[facility] Start: 09-10-2024 End: 09-10-2024 ambulatory Zena X Orzech Facility:[facility] Start: 09-10-2024 End: 09-10-2024 Patient encounter procedure Zena X Orzech [facility] [place] Start: 06-11-2024 End: 06-11-2024 ambulatory Yovany AKHTAR Facility:[facility] [place] Start: 06-11-2024 End: 06-11-2024 Patient encounter procedure Yovany AKHTAR [facility] [place] Start: 06-10-2024 End: 06-10-2024 ambulatory Heather Turcios MD Facility: [facility] Start: 02-19-2024 End: 02-19-2024 ambulatory Heather Turcios MD Facility: [facility] Start: 02-05-2024 End: 02-05-2024 ambulatory Heather Turcios MD Facility: [facility] Start: 12-25-2023 End: 12-25-2023 ambulatory MICHAEL KIM Not Available Start: 12-21-2023 End: 12-21-2023 ambulatory BALTA OTTO Not Available Start: 12-19-2023 End: 12-19-2023 ambulatory MICHAEL KIM Not Available Start: 06-06-2023 End: 06-06-2023 Patient encounter procedure Yovany AKHTAR [facility] [place] Start: 06-17-2022 End: 06-17-2022 Patient encounter procedure Yovany AKHTAR [facility] [place] Start: 06-16-2022 End: 06-17-[address] NANCY FERNANDEZ Facility:[facility] Start: 06-10-2022 End: 06-10-2022 Patient encounter procedure Yovany AKHTAR [facility] [place] Start: 06-09-2022 End: 06-10-[address] NANCY FERNANDEZ Facility:[facility] Start: 05-29-2022 End: 05-29-[address] NANCY FERNANDEZ Facility:[facility] Start: 05-11-2022 End: 05-11-2022 Patient encounter procedure Yovany AKHTAR [facility] Start: 02-03-2022 Encounter for genera l adult medical examination without abnormal findings DR NANCY FERNANDEZ [facility] Start: 01-28-2022 End: 01-29-[address] NANCY FERNANDEZ Facility:[facility] Start: 01-28-2022 End: 01-29-2022 Encounter for general adult medical examination without abnormal findings DR NANCY FERNANDEZ Facility:[facility] Start: 01-21-2022 End: 01-21-2022 Patient encounter procedure Yovany AKHTAR [facility] [place] Start: 01-20-2022 End: 01-21-2022 [...] on above: Performed By: #### P SAD ####[place] [id number]. Wyatt Aldrich Start: 08-13-2020 Extracorporeal shock wave lithotripsy of calculus of kidney Yovany AKHTAR Start: 03-27-2019 Colonoscopy Michele FAUSTIN Start: 02-02-2014 Colonoscopy Michele FAUSTIN Start: 09-04-2004 Colonoscopy Michele NI LL Cholecystectomy Michele MAXWELLL Dental surgical procedure Gr poncho AKHTAR Drainage of perirect al abscess Michele RAYGOZA Entire gallbladder ( body structure) Yovany AKHTAR History of tonsillectomy Mitul AKHTAR Incision of anal fistula Fuad edwin RAYGOZA Kidney stone (disorder) Gee AKHTAR l4 l5 disectomy Yovany AKHTAR carlo anal abcess Yovany KILN HAND K Repair of anal fistula Marvel ry GIOVANA Tonsillectomy Michele RAYGOZA Plan of Treatment Date Care Activity Detail Author Start: 06-10-2025 ambulatory Ambulatory Facility:[facility] [place] Immunization Date Immunization Notes Care Provider Fa [facility] 04-19-2022 zoster vaccine recombinant Yovany AKHTAR [facility] 02-12-2022 pneumococcal 20-maría nt conjugate vaccine Yovany AKHTAR [facility] 02-03-2022 zoster vaccine recombinant Yovany AKHTAR [facility] 12-08-2020 SARS-CoV-2 (COVID-19 ) mRNA-7443 vaccine Yovany AKHTAR [facility] 11-17-2020 SARS-CoV-2 (COVID-19 ) mRNA BNT-162b2 vax Yovany AKHTAR [facility] 11-11-2020 SARS-CoV-2 (COVID-19 ) mRNA-1273 vaccine Yovany AKHTAR [facility] Payers Date Payer Category Payer Unknown 2023 Unknown [id number] 1965 Unknown [id number] 2.16.84 [id number] 1965 Unknown [id number] 2.16.84 [id number] 1964 Unknown [id number] 2.16.84 0.1.235358.3.579.2.593 1964 Unknown [id number] 2.16.84 0.1.354335.3.579.2.593 1964 Unknown [id number] 2.16.84 0.1.260144.3.579.2.593 1964 Unknown [id number] 2.16.84 0.1.680728.3.579.2.593 1964 Unknown [id number] 2.16.84 0.1.514122.3.579.2.593 1964 Unknown [id number] 2.16.84 0.1.369103.3.579.2.593 1964 Unknown [id number] 2.16.84 0.1.432688.3.579.2.1259 1964 Unknown [id number] 2.16.84 0.1.701136.3.579.2.1259 1964 Unknown [id number] 2.16.84 0.1.273520.3.579.2.1259 1964 Unknown [id number] 2.16. 840.1.507010.3.579.2.196 1964 Unknown [id number] 2.16. 840.1.934021.3.579.2.196 1964 Unknown [id number] 2.16. 840.1.132264.3.579.2.196 1964 Unknown [id number] 2.16.8 40.1.315583.3.579.2.727 1964 Unknown [id number] 2.16.8 40.1.785452.3.579.2.727 1964 Unknown [id number] 2.16.8 40.1.753678.3.579.2.727 1964 Unknown [id number] 2.16.8 40.1.607289.3.579.2.727 1959 Private Health Insurance [id number] Social History Date Type Detail Facility Start: 01-15-2021 End: 10-29-2024 Tobacco smoking status Ex-smoker (finding) [facility] Tobacco smoking status Never [facility] Sex Assigned At Male [facility] Functional Status Date Assessment Result Facility 10-29-2024 Functional Status N/A [facility] [place] 09-10-2024 Functional Status N/A [facility] 06-11-2024 Functional Status N/A [facility] 06-06-2023 Functional Status N/A [facility] 06-17-2022 Functional Status N/A [facility] 06-10-2022 Functional Status N/A [facility] Clinical Notes 01-21-2022 to 10-29-2024 Laboratory Note Date & Type Note Facility 10-29-2024 Note General Surgery Offi ce/Clinic Note Chief Complaint consultation for positive occult stool HPI Staff 58 year old male presents on consultation from Dr. Fernandez for positive occult stool. Denies abdominal or rectal pain. No rectal bleeding or change in bowel habits. Denies nausea or vomiting. No unexplained weight loss. Last colonoscopy completed 03/2019 for hem positive stool was normal. Father with history of colon cancer, diagnosed age 89. History of Present Illness 58 yo male with h/o htn, DMII, hyperlipidemia, hypothyroidism, MARGE, bph, lumbar and cervical radiculopathy, neuropathy, osteoarthritis, referred for positive fecal occult blood test; denies change in bms or gross blood in stools; no abd complaints; abd operations significant for cholecystectomy; last colonoscopy 03/2019, wnl; on baby asa daily, no NSAID use; no tobacco use; no fmhx of GI malignancy or IBD. Review of Systems PHQ Score Initial Depression Screen Score: 0 SCORE ROS - Provider Constitutional: no fever, no sweats, no weight loss. Eyes: no glasses, no blurred vision, no visual loss. ENMT: no dentures, no hoarseness, no swallowing difficulties, no hearing loss, no ear infection(s), no nose bleeds. Cardiovascular: normal blood pressure, no chest pain, regular heartbeat, no heart murmur. Respiratory: no shortness of breath, no cough, no asthma, no wheezing. Gastrointestinal: no nausea, no vomiting, no diarrhea, no constipation, no blood in stool, no change in bowel habits, no abdominal pain, no hepatitis. Genitourinary: no kidney stones, no urine infection, no dysuria. Musculoskeletal: no pain, no weakness. Skin: no changing moles, no rash, no skin lumps. Neurologic: no seizures, no epilepsy, no headache. Psychiatric: no emotional or psychiatric problem. Heme/Lymph: no bleeding problems, no anemia, no blood clots, no transfusions. Allergy/Immunologic: no swollen lymph nodes/glands, no IV drug abuse. Other: Additional ROS info: Except as noted in the above Review of Systems and in the History of Present Illness, all other systems have been reviewed and are negative or noncontributory. Physical Exam Vitals & Measurements HR: 64(Peripheral) RR: 16 BP: 129/72 HT: 74 in HT: 187.9 cm WT: 162.7 kg WT: 358.692 lb BMI: 46.08 HEENT: normal conjunctiva, sclera clear, no scleral icterus, EOM intact, PERRLA, oral mucosa moist without lesions. Neck: trachea midline, no mass, symmetric, no thyromegaly or nodules, no adenopathy Respiratory: lungs CTA, respirations non labored. Cardiovascular: regular rate and rhythm, no murmur, no pedal edema or varicosities. Gastrointestinal: obese, soft, non distended, no tenderness, no masses, no palpable hernias, diastasis recti no, no hepatosplenomegaly; normal bs Lymphatic: no cervical adenopathy, no supraclavicular adenopathy. Musculoskeletal: abnormal gait, digits and nails without infection, nodes, cyanosis, clubbing. Skin: no rashes, no lesions, no ulcers, no subcutaneous nodules, induration. Psychiatric/Neuro: oriented to time, place, person, judgement normal, affect appropriate for age, insight intact, no focal deficits. Tests: labs reviewed, review of old records completed , Assessment/Plan 1. Positive fecal occult blood test (R19.5: Other fecal abnormalities) patient not due for screening colonoscopy until 03/2025; no symptoms or change in bowel habits, no gross blood; recommend recall in 4 years for screening colonoscopy; call if any symptoms and can proceed sooner with possible diagnostic colonoscopy. call with problems/questions. Follow-up No qualifying data available Problem List/Past Medical History Ongoing BMI 45.0-49.9, adult BPH (benign prostatic hyperplasia) Cervical radiculopathy Class 3 obesity Diabetes mellitus type 2, noninsulin dependent Elevated PSA Hypercalciuria Hyperlipidemia Hyperuricosuria Hypocitraturia Hypothyroidism Kidney stone Leukocytosis Lumbar radiculopathy Neuropathy Nocturia Occult blood positive stool MARGE (obstructive sleep apnea) Osteoarthritis Positive fecal occult blood test Historical GERD (gastroesophageal reflux disease) Neoplasm of uncertain behavior of skin Thrombophlebitis of lower extremities Procedure/Surgical History ESW[facility] - Extracorporeal shockwave lithotripsy for renal calculus (05/26/2022), ESWL - Extracorporeal shockwave lithotripsy for renal calculus (08/13/2020), Colonoscopy (03/27/2019), Colonoscopy (02/2014), Colonoscopy (2004), Anal fistulotomy, Cholecystectomy, Dental surgical procedure, Drainage of perirectal abscess, l4 l5 disectomy, Tonsillectomy. Medications albuterol, 2 puff(s), Inhalation, q6hr, PRN aspirin 81 mg Oral EC Tab, 81 mg= 1 tab(s), Oral, Daily baclofen 10 mg Tab, 10 mg= 1 tab(s), Oral, As Directed Benicar 40 mg Tab, 40 mg= 1 tab(s), Oral, Bedtime Coreg 25 mg Tab, 37.5 mg= 1.5 tab(s), Oral, BID Daily Multiple Vitamins, 1 tab(s), Oral, Daily glimepiride 4 mg Tab, 4 mg= 1 tab(s), Oral, Alexus (more content not included)... [facility] Comment on above: Result Comment: Elec tronically Signed By: JARET CANTOR, Michele Prince.br\Date and Time Signed: 10/29/24 08:56 EST 09-10-2024 Hospital Discharge instructions Patient Education 09/10/2024 09:53:34 Kidney Stones, Hnwn-vy-Nnzp Kidney Stones Kidney stones are rock-like masses [...] Follow these instructions at home: Medicines Take dtip-pqm-hukxmin and prescription medicines only as told by [...] Kidney Foundation (NKF): kidney.org [facility] (F): urologyhealth.org Contact a doctor if: You have [...] provider. Document Revised: 04/14/2023 Document Reviewed: 04/14/2023 [employer] Patient Education 2023 [employer]. Follow Up Care 08/15/2024 10:52:33 With:GIOVANA CANTOR, Yovany Kwan, URL Address: [facility] [employer] [address] [place], [place] [id number]- When: Unknown [facility] 09-10-2024 Note Patient Education Urology Kidney Stones [...] these instructions at home: Medicines ??? Take kfpy-mzj-xperbtt and prescription medicines only as told by [...] provider. Document Revised: 04/14/2023 Document Reviewed: 04/14/2023 [employer] Patient Education ? 2023 [employer]. [facility] 06-11-2024 Hospital Discharge instructions Patient Education 06/11/2024 [...] you may eat and drink normally. Take vuvm-wzz-zibkqnj and prescription medicines only as told by your health care provider. Let your health care provider know about any medicines that you are taking, including zsvs-ovg-szrfcgf medicines, vitamins, herbs, and supplements. Choose a [...] provider. Document Revised: 02/25/2022 Document Reviewed: 02/25/2022 [employer] Patient Education 2023 [employer]. 06/11/2024 08:23:10 Dietary Guidelines to Help Prevent [...] include: ?8 oz (237 mL) of milk, axowemd-jnhdjhbkxuva-ozwqk milk, and calcium-fortifiedfruit juice. Calcium-fortified means that [...] ?Spinach (cooked), rhubarb, beets, sweet potatoes, and Cameroonian chard. ?Peanuts. ?Potato chips, east timorese fries, and baked potatoes with skin on. ?Nuts and nut products. ?Chocolate. If you regularly take a diuretic medicine, make sure to eat at least 1 or 2 servings of fruits or vegetables that are high in potassium each day. These include: ?Avocado. ?Banana. ?Liberty, prune, carrot, or tomato juice. ?Baked potato. [...] magnesium, fish oil, or vitamin B6. Take duyt-zcq-buxsfjl and prescription medicines only as told by [...] Casseroles. Pizza. Lasagna. Frozen meals. Potato chips. St Helenian fries. The items listed above may not [...] provider. Document Revised: 12/01/2022 Document Reviewed: 12/01/2022 [employer] Patient Education 2023 [employer]. Follow Up Care 06/06/2023 09:30:15 With:GIOVANA CANTOR, Yovany Kwan, URL Address: [address] [place] [address]- When: Unknown [facility] 06-11-2024 Note Patient Education Nephrology Dietary Guidelines [...] ? 8 oz (237 mL) of milk, omlellh-ovdkaociyrzn-ktqfk milk, and calcium-fortifiedfruit juice. Calcium-fortified means that [...] Spinach (cooked), rhubarb, beets, sweet potatoes, and Cameroonian chard. ? Peanuts. ? Potato chips, east timorese fries, and baked potatoes with skin on. ? Nuts and nut products. ? Chocolate. ? If you regularly take a diuretic medicine, make sure to eat at least 1 or 2 servings of fruits or vegetables that are high in potassium each day. These include: ? Avocado. ? Banana. ? Liberty, prune, carrot, or tomato juice. ? Baked [...] fish oil, or vitamin B6. ? Take cwct-gli-wuxfvku and prescription medicines only as told by your health care provider. These include suppleme (more content not included)... [facility] 06-06-2023 Hospital Discharge instructions Patient Education 06/06/2023 [...] include: ?8 oz (237 mL) of milk, kpyrgka-qmayiywecwuf-uwawz milk, and calcium-fortifiedfruit juice. Calcium-fortified means that [...] ?Spinach (cooked), rhubarb, beets, sweet potatoes, and Cameroonian chard. ?Peanuts. ?Potato chips, east timorese fries, and baked potatoes with skin on. ?Nuts and nut products. ?Chocolate. If you regularly take a diuretic medicine, make sure to eat at least 1 or 2 servings of fruits or vegetables that are high in potassium each day. These include: ?Avocado. ?Banana. ?Liberty, prune, carrot, or tomato juice. ?Baked potato. [...] magnesium, fish oil, or vitamin B6. Take qmuk-pqt-ygkaicd and prescription medicines only as told by [...] Casseroles. Pizza. Lasagna. Frozen meals. Potato chips. St [place]ian fries. The items listed above may not [...] provider. Document Revised: 05/02/2022 Document Reviewed: 05/02/2022 Elsevier Patient Education 2022 [employer]. Follow Up Care 01/21/2022 09:03:45 With:GIOVANA CANTOR, Yovany Kwan, ESHA Address: Mandeep CAPUTO [address] [place] [id number]- When:Within 1 Year(s) Comments:w/MT [facility] 06-17-2022 Hospital Discharge instructions Patient [...] include: ?Spinach. ?Rhubarb. ?Beets. ?Potato chips and east timorese fries. ?Nuts. If you regularly take a diuretic medicine, make sure to eat at least 1 2 fruits or vegetables high in potassium each day. These include: ?Avocado. ?Banana. ?Liberty, prune, carrot, or tomato juice. ?Baked potato. [...] Casseroles. Pizza. Lasagna. Frozen meals. Potato chips. St Helenian fries. Summary You can reduce your risk [...] 12/16/2011 Document Revised: 12/11/2019 Document Reviewed: 08/01/2017 [employer] Patient Education 2020 [employer] Follow Up Care 06/10/2022 10:24:22 With:GIOVANA CANTOR, Yovany P, URL Address: [address] [place] [address]- When:6 months Comments:claire/ [place] [facility] 06-10-2022 Hospital Discharge instructions [...] include: ?Spinach. ?Rhubarb. ?Beets. ?Potato chips and east timorese fries. ?Nuts. If you regularly take a diuretic medicine, make sure to eat at least 1 2 fruits or vegetables high in potassium each day. These include: ?Avocado. ?Banana. ?Liberty, prune, carrot, or tomato juice. ?Baked potato. [...] Casseroles. Pizza. Lasagna. Frozen meals. Potato chips. St Helenian fries. Summary You can reduce your risk [...] 12/16/2011 Document Revised: 12/11/2019 Document Reviewed: 08/01/2017 [employer] Patient Education 2020 [employer]. Follow Up Care 05/30/2022 09:25:01 With:GIOVANA CANTOR, Yovany Kwan, URL Address: [address] [address]- When:2 weeks Comments:MICHAELB [facility] 01-21-2022 Hospital Discharge instructions [...] urethra. Follow these instructions at home: Take ywjl-fll-sgwrjgj and prescription medicines only as told by [...] 08/21/2006 Document Revised: 07/16/2019 Document Reviewed: 09/25/2017 [employer] Patient Education 2020 [employer]. Follow Up Care 01/15/2021 08:45:48 With:Yovany AKHTAR MD, URL Address: [address] [place] [address]- When:01/21/2023 Comments:with PSA and x-ray [facility] Evaluation + Plan note Future Appointments Appointment Date:02/24/2023 08:00:00 AM Scheduled Provider:Yovany AKHTAR MD Location:[facility] Appointment Type:URO Office Visit [facility] Evaluation + Plan note Future Appointments Appointment Date:02/24/2023 08:00:00 AM Scheduled Provider:Yovany AKHTAR MD Location:[facility] Appointment Type:URO Office Visit Future Scheduled TestsPT & PTT 04/20/22N 04/20/22Creatinine 04/20/22Electrolyte Panel 04/20/22CBC w/ Auto Diff 04/20/22 [facility] Evaluation + Plan note Future Appointments Appointment Date:06/17/2022 09:15:00 AM Scheduled Provider:Yovany AKHTAR MD [facility] Type:URO Office Visit Appointment Date:02/24/2023 08:00:00 AM Scheduled Provider:Yovany AKHTAR MD [facility] App[facility] Type:URO Office Visit [facility] Evaluation + Plan note Future Appointments Appointment Date:06/11/2024 08:00:00 AM Scheduled Provider:Yovany AKHTAR MD [facility] App[facility] Type:URO Office Visit [facility] Evaluation + Plan note Future Appointments Appointment Date:06/10/2025 08:00:00 AM Scheduled Provider:Yovany AKHTAR MD Location:[facility] Appointment Type:URO Office Visit [facility] Hospital course Narrative No data available for this section [facility] Hospital Discharge instructions No data available for this section [facility] Progress note No data available for this section [facility] Summary Purpose Family History No Family History Records Found No data available for this section No Family History Records Found No data available for this section No Family History Records Found No data available for this section No data available for this section No Family History Records Found Advance Directives No Advanced Directives Records FoundNo Advanced Directives Records FoundNo Advanced Directives Records FoundNo Advanced Directives Records Found Additional Source Comments Care Team (unrecognized sect ion and content) Personnel Name: Nancy Fernandez MD Address: [address] [place] [address] Personnel Name: Nancy Fernandez MD Address: Address: [address] [place] [address] Personnel Name: Nancy Fernandez MD Address: Address: [address] [place] [address] [place], [place] [id number] Personnel Name: Nancy Fernandez MD Address: Address: [address] [place] [address] [place] [address]- Personnel Name: Nancy Fernandez MD Address: Address: [address] [place] [address] [place] [id number] Personnel Name: Nancy Fernandez MD Address: Address: [address] [place] [address] Personnel Name: Nancy Fernandez MD Address: Address: [address] [place] [address] (unrecognized sect ion and content) No Status Records FoundNo Status Records FoundNo Status Records FoundNo Status Records Found INFORMATION SOURCE (unrecogn ized section and content) DATE CREATED AUTHOR 07/07/2022 [facility] DATE CREATED AUTHOR AUTHOR'S ORGANIZ ATION 12/26/2023 [facility] DATE CREATED AUTHOR AUTHOR'S ORGANIZ ATION 06/19/2024 [facility] DATE CREATED AUTHOR AUTHOR'S ORGANIZ ATION 10/30/2024 [facility] FOR RECORDS PERTAINING TO PATIENTS WHO [...] BE BASED ON THE PRIMARY CLINICAL RECORDS. [facility] [employer] provides no warranty or guarantee of the accuracy or completeness of information in this document.
[2024-11-15 12:02] LABS: Free T3 2.54 pg/mL (2.18-3.98); Thyroid Stimulating Hormone 5.229 uIU/mL (0.358-3.740)
== END 2024-11-15 11:04 | disposition home or self-care (01) ==
LOC: LAB 11:04
PROVIDERS: PCP Family Medicine; Visit Provider Family Medicine
DX: E03.9 Hypothyroidism, unspecified (principal)
CPT/HCPCS: 36415; 84436; 84443; 84481

== ENCOUNTER 2024-11-27 09:27 | Outpatient (OUT) | payer BC, SELFPAY ==
--- OUTSIDE RECORDS SUMMARY | 2024-11-27 09:38 | XMS_ITS | CCD ---
Author Organization [facility] CliniSyne Care Team Providers Care Manager Front Name Role Phone Nancy Fernandez Primary Care Physician [phone] DR NANCY FERNANDEZ Primary Care Unavailable COOK, [...] behavior (finding) [facility] Medications Current Medications Medication Drug Class(es) [...] Start: 02-19-2019 take 2 tablets by mo [facility] once daily in the morning [...] Ordered Start: 05-08-2020 take 1 tablet by [facility] twice daily metformin 500 mg ER Tab [...] Daily, # 30 cap(s), Refills(s) 2, [id number], 188, cm, 06/10/22 9:57:00 EDT, Height/Length Dosing, [...] 02-19-2019 Episodic Other aftercare (1 source) Other senior living (current) drug therapy; Translations: [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 [address]- Medications What How Much When Instructions Unchanged [...] for choosing us for your care. Normal [facility] Reminderson 10-29-2024 Reminders Reminders From: Alexia Vega LPN To: GSN - Clinical; Sent: 10/29/2024 09:31:53 EST Show up: 02/16/2029 07:00:00 EDT Subject: colonoscopy recall Due Date/Time: 03/04/2029 07:00:00 EDT Reminder/Recall Patient is due for screening colonoscopy 03/2029. Normal [facility] Office/Clinic Noteon 09-12-2024 Urology Office/Clinic Note [...] Urnls Dip Stick Auto w/o Microscopy POC 49876 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 Normal [facility] Comment on above: Result Comment: Elec [...] MD Where: [facility] [address] [place] [address]- You Need to Schedule the Following Appointments Follow Up with Yovany AKHTAR MD, URL When: Where: [address] [address]- Medications What How Much When Instructions Unchanged [...] bladder. (more content not included)... Normal [facility] Ambulatory Visit Summaryon 1 Ambulatory Visit [...] Yovany AKHTAR MD Where: [facility] [address] [place] [address]- You Need to Schedule the Following Appointments Follow Up with Yovany AKHTAR MD, URL When: Where: [address] [address]- Medications What How Much When [...] drink normally. (more content not included)... Normal [facility] Office/Clinic Noteon 06-11-2024 Urology Office/Clinic Note [...] KUB was read as negative at the [facility] but to my review there may [...] Contact Information Yovany AKHTAR MD, URL [address] [place], [place] [id number]- Additional Instructions: 1 yr with KUB and [...] with voice recognition artificial intelligence software, specifically [employer], [employer] and or [employer]. Substitutions may have occurred due to the inherent limitations of voice recognition and artificial intelligence software. Problem List/Past Medical History Ongoing BMI 40.0-44.9, adult BPH (benign prostatic hyperplasia) Chronic anticoagulation Dermatofibroma of left upper arm Diabetes mellitus type 2, noninsulin dependent Elevated PSA Hx of senior living use of blood thinners Kidney stone Nocturia Osteoarthritis Historical GERD (gastroesophag (more content not included)... Normal [facility] Comment on above: Result Comment: Elec [...] [place] Date: 2022-06-16 18:56 Normal [facility] XR KUB 1 VIEWon 06-09-2022 XR [...] [place] Date: 2022-06-09 17:41 Normal [facility] CBC AUTO DIFFon 05-29-2022 BASO # 0.1 103/ul Normal 0.0-0.1 [facility] Comment on above: Performed By: #### C BC ####[facility] [address] [place] [id number]. Wyatt Aldrich Basophils/100 WBC (Bld) 0.2 % Normal 0.2-2.0 [facility] Comment on above: Performed By: #### C BC ####[facility] Jctqmeqyyr[address] [place], [place] [address]Hp. Wyatt Aldrich EO # 0.0 103/ul Normal 0.0-0.7 [facility] Comment on above: Performed By: #### C BC ####[facility] [address]mr[address] [place] [id number]. Wyatt Aldrich Eosinophils/100 WBC (Bld) 0.2 % Critically low 0.9-7.0 [facility] Comment on above: Performed By: #### C BC ####[facility] [address] [place] [address]Dr. Wyatt Aldrich Erythrocyte distribution width (RBC) [Ratio] 12.3 % Normal 11.0-15.0 [facility] Comment on above: Performed By: #### C BC ####[facility] Jr[address]mahynoy[address] [place] [address]Dr. Wyatt Aldrich Hematocrit (Bld) [Volume fraction] 45.9 % Normal 42.0-54.0 [facility] Comment on above: Performed By: #### C BC ####[facility] [address] [place], [place] [address]Dr. Wyatt Aldrich Hemoglobin (Bld) [Mass/Vol] 15.2 g/dL Normal 14.0-18.0 [facility] Comment on above: Performed By: #### C BC ####[facility] B[address] [place], [place] [address]DrCullen Wyatt Aldrich IG # 0.09 10e3/ul Critically high 0.00-0.03 [facility] Comment on above: Performed By: #### C BC ####[facility] Hosz[address] [place], [place] [address]DrCullen Wyatt Aldrich IG % 0.4 % Normal 0.0-0.5 [facility] Comment on above: Performed By: #### C BC ####[facility] H[address]ft[address] [place], [place] [address]DrCullen Wyatt Aldrich LYMPH # 1.1 103/ul Critically low 1.2-3.8 [facility] Comment on above: Performed By: #### C BC ####[facility] Bsmtwf[address] [place], [place] [address]DrCullen Wyatt Aldrich Lymphocytes/100 WBC (Bld) 5.1 % Critically low 20.5-60.0 [facility] Comment on above: Performed By: #### C BC ####[facility] Uxbjcp[address]ub[address] [place], [place] [address]DrCullen Wyatt Valdemar MANUAL DIFF REQ NO Normal [facility] Comment on above: Performed By: #### C BC ####[facility] V[address]xpri[address] [place] [id number]. Wyatt Valdemar MCH (RBC) [Entitic mass] 30.2 pg Normal 25.9-34.0 [facility] Comment on above: Performed By: #### C BC ####[facility] [address] [place] [address]Dr. Jossielalo Valdemar MCHC (RBC) [Mass/Vol] 33.1 g/dL Normal 29.9-35.2 [facility] Comment on above: Performed By: #### C BC ####[facility] [address] [place] [address]Dr. Wyatt Aldrich MCV (RBC) [Entitic vol] 91.3 fL Normal 80.0-94.0 [facility] Comment on above: Performed By: #### C BC ####[facility] Wrrzwt[address]ttz[address] [place], [place] [address]Dr. Wyatt Aldrich MONO # 1.4 103/ul Critically high 0.3-0.8 [facility] Comment on above: Performed By: #### C BC ####[facility] Ykbcrwbexp[address] [place], [place] [address]Dr. Wyatt Aldrich Monocytes/100 WBC (Bld) 6.7 % Normal 1.7-12.0 [facility] Comment on above: Performed By: #### C BC ####[facility] [address] [place], [place] [address]Dr. Wyatt Aldrich NEUT # 18.5 103/ul Critically high 1.4-6.5 [facility] Comment on above: Performed By: #### C BC ####[facility] H[address] [place], [place] [id number] Aldrich Neutrophils/100 WBC (Bld) 87.4 % Critically high 43.0-75.0 [facility] Comment on above: Performed By: #### C BC ####[facility] Csaozwskbs[address] [place], [place] [address]DrCullen Aldrich Platelet mean volume (Bld) [Entitic vol] 9.3 fL Critically low 9.5-13.5 [facility] Comment on above: Performed By: #### C BC ####[facility] Incqkmxbzh[address]204 [place], [place] [address]Kf. Wyatt Aldrich PLT 303 103/ul Normal 150-450 [facility] Comment on above: Performed By: #### C BC ####[facility] Ft[address] [place], [place] [address]Fi. Wyatt Aldrich RBC 5.03 106/ul Normal 4.70-6.10 [facility] Comment on above: Performed By: #### C BC ####[facility] [address] [place], [place] [address]Rc. Wyatt Aldrich WBC 21.2 103/ul Critically high 4.0-11.0 [facility] Comment on above: Performed By: #### C BC ####[facility] [address] [place], [place] [address] ABD/PELVIS WO CONon 05-29 [...] by: BOO GUZMAN Date: 2022-05-29 17:32 Normal [facility] ER URINE PROFILEon 2 Bilirubin Ql (U) Negative Normal NEGATIVE [facility] Comment on above: Performed By: #### U MICRO, ERUR #### [facility] [address] [place] [address] Dr. Wyatt Aldrich Clarity (U) CLEAR Normal CLEAR [facility] Comment on above: Performed By: #### U MICRO, ERUR #### [facility] [address] [place] [address] [address] Wyatt Aldrich Color (U) LT. YELLOW Normal YELLOW [facility] Comment on above: Performed By: #### U MICRO, ERUR #### [facility] [address] [place] [address] Dr. Wyatt Aldrich ERUPANCHOD A micrscopic examina tion will be performed if indicated. Normal [facility] Comment on above: Performed By: #### U MICRO, ERUR #### [facility] [address] [place] [address] [address] Wyatt Aldrich Glucose Ql (U) Negative Normal NEGATIVE [facility] Comment on above: Performed By: #### U MICRO, ERUR #### [facility] [address] [place] [address] Dr. Wyatt Aldrich Hemoglobin Ql (U) TRACE-INTACT Abnormal NEGATIVE [facility] Comment on above: Performed By: #### U MICRO, ERUR #### [facility] [address] [place] [address] [address] Wyatt Aldrich Ketones Ql (U) Negative Normal NEGATIVE [facility] Comment on above: Performed By: #### U MICRO, ERUR #### [facility] [address] [place] [address] [address] Wyatt Aldrich LEUKOCYTES Negative Normal NEGATIVE [facility] Comment on above: Performed By: #### U MICRO, ERUR #### [facility] [address] [place] [address] Dr. Wyatt Aldrich Nitrite Ql (U) Negative Normal NEGATIVE [facility] Comment on above: Performed By: #### U MICRO, ERUR #### [facility] [address] [place] [address] [address] Wyatt Aldrich pH (U) 7.0 [pH] Normal 5-9 [facility] Comment on above: Performed By: #### U MICRO, ERUR #### [facility] [address] [place] [address] [address] Wyatt Aldrich SPEC GRAVITY 1.020 Normal 1.005-<=1.025 [facility] Comment on above: Performed By: #### U MICRO, ERUR #### [facility] [address] [place] [address] Dr. Wyatt Aldrich UA PROTEIN Negative Normal NEGATIVE/ TRACE [facility] Comment on above: Performed By: #### U MICRO, ERUR #### [facility] [address] [place] [address] Dr. Wyatt Aldrich UR MICRO IND INDICATED Normal [facility] Comment on above: Performed By: #### U MICRO, ERUR #### [facility] [address] [place] [address] Dr. Wyatt Aldrich Urobilinogen Qn (U) 0.2 {Sharon'U}/dL Normal 0.2 - 1. 0 [facility] Comment on above: Performed By: #### U MICRO, ERUR #### [facility] [address] [place] [address] Dr. Wyatt Aldrich PROF 14(COMP METB)on 022 Albumin [Mass/Vol] 3.9 g/dL Normal 3.4-5.[address] [facility] Comment on above: Performed By: #### C MP #### [facility] [address] [place] [address] Dr. Wyatt Aldrich Albumin/Globulin [Mass ratio] 1.1 {ratio} Normal [facility] Comment on above: Performed By: #### C MP #### [facility] [address] [place] [address] Dr. Wyatt Aldrich ALP [Catalytic activity/Vol] 70 U/L Normal 46-116 [facility] Comment on above: Performed By: #### C MP #### [facility] [address] [place] [address] [address] Wyatt Aldrich ALT [Catalytic activity/Vol] 38 U/L Normal 16-63 [facility] Comment on above: Performed By: #### C MP #### [facility] [address] [place] [address] Dr. Wyatt Aldrich Anion gap [Moles/Vol] 12.6 mmol/L Normal [facility] Comment on above: Performed By: #### C MP #### [facility] [address] [place] [address] [address] Wyatt Aldrich AST [Catalytic activity/Vol] 20 U/L Normal 15-37 [facility] Comment on above: Performed By: #### C MP #### [facility] [address] [place] [address] [address] Wyatt Aldrich Bilirubin [Mass/Vol] 0.6 mg/dL Normal 0.2-1.0 [facility] Comment on above: Performed By: #### C MP #### [facility] [address] [place] [address] Dr. Wyatt Aldrich Calcium [Mass/Vol] 8.7 mg/dL Normal 8.5-10.1 [facility] Comment on above: Performed By: #### C MP #### [facility] [address] [place] [address] Dr. Wyatt Aldrich Chloride [Moles/Vol] 95 mmol/L Critically low 98-107 [facility] Comment on above: Performed By: #### C MP #### [facility] [address] [place] [address] [address] Wyatt Aldrich CO2 [Moles/Vol] 29.9 mmol/L Normal 21.0-32.0 [facility] Comment on above: Performed By: #### C MP #### [facility] [address] [place] [address] [address] Wyatt Aldrich Creatinine [Mass/Vol] 1.04 mg/dL Normal 0.70-1.30 [facility] Comment on above: Performed By: #### C MP #### [facility] [address] [place] [address] [address] Wyatt Aldrich EGFR-AF FINNISH >60 Normal >=[address] [facility] Comment on above: Performed By: #### C MP #### [facility] [address] [place] [address] [address] Wyatt Aldrich EGFR-NON AF FINNISH >60 Normal >=60 [facility] Comment on above: Performed By: #### C MP #### [facility] [address] [place] [address] [address] Wyatt Aldrich Globulin (S) [Mass/Vol] 3.4 g/dL Normal [facility] Comment on above: Performed By: #### C MP #### [facility] [address] [place] [address] [address] Wyatt Aldrich Glucose [Mass/Vol] 148 mg/dL Critically high 74-[address] [facility] Comment on above: Performed By: #### C MP #### [facility] [address] [place] [address] [address] Wyatt Aldrich Potassium [Moles/Vol] 4.5 mmol/L Normal 3.5-5.1 [facility] Comment on above: Performed By: #### C MP #### [facility] [address] [place] [address] [address] Wyatt Aldrich Protein [Mass/Vol] 7.3 g/dL Normal 6.4-8.2 [facility] Comment on above: Performed By: #### C MP #### [facility] [address] [place] [address] [address] Wyatt Aldrich Sodium [Moles/Vol] 133 mmol/L Critically low 136-[address] [facility] Comment on above: Performed By: #### C MP #### [facility] [address] [place] [address] [address] Wyatt Aldrich Urea nitrogen [Mass/Vol] 15.0 mg/dL Normal 7.0-18.0 [facility] Comment on above: Performed By: #### C MP #### [facility] [address] [place] [address] [address] Wyatt Aldrich Urea nitrogen/Creatinine [Mass ratio] 14.4 mg/mg Normal [facility] Comment on above: Performed By: #### C MP #### [facility] [address] [place] [address] [address] Wyatt Aldrich URINE MICROSCOPIC ONLYon BACTERIA NONE SEEN Normal NONE SEEN [facility] Comment on above: Performed By: #### U MICRO, ERUR #### [facility] [address] [place] [address] Dr. Wyatt Aldrich Bacteria identified Cx Nom (U) NOT INDICATED Normal [facility] Comment on above: Performed By: #### U MICRO, ERUR #### [facility] [address] [place] [address] Dr. Wyatt Aldrich CAST NONE SEEN Normal NONE SEEN [facility] Comment on above: Performed By: #### U MICRO, ERUR #### [facility] [address] [place] [address] Dr. Wyatt Aldrich Crystals LM Nom (Urine sed) NONE SEEN Normal NONE SEEN [facility] Comment on above: Performed By: #### U MICRO, ERUR #### [facility] [address] [place] [address] Dr. Wyatt Aldrich Epithelial cells LM Ql (Urine sed) NONE SEEN Normal NONE SEEN /RARE [facility] Comment on above: Performed By: #### U MICRO, ERUR #### [facility] [address] [place] [address] Dr. Wyatt Aldrich MUCOUS NONE SEEN Normal NONE SEEN [facility] Comment on above: Performed By: #### U MICRO, ERUR #### [facility] [address] [place] [address] Dr. Wyatt Aldrich RBC 2-5 Abnormal 0-2 [facility] Comment on above: Performed By: #### U MICRO, ERUR #### [facility] [address] [place] [address] Dr. Wyatt Aldrich WBC NONE SEEN Normal NONE SEEN [facility] Comment on above: Performed By: #### U MICRO, ERUR #### [facility] [address] [place] [address] Dr. Wyatt Aldrich T4 LABCORPon 01-29-2022 T4 [Mass/Vol] 9.1 ug/dL Normal 4.5-12.0 [facility] Comment on above: Performed By: #### T 4LC ####[facility] [address] [place] [address]Dr. Wyatt Valdemar CBC AUTO DIFFon 01-28-2022 BASO # 0.1 103/ul Normal 0.0-0.1 [facility] Comment on above: Performed By: #### C BC ####[facility] [address] [place], [place] [address]Dr. Wyatt Aldrich Basophils/100 WBC (Bld) 0.6 % Normal 0.2-2.0 [facility] Comment on above: Performed By: #### C BC ####[facility] [address]ok[address] [place], [place] [address]Dr. Wyatt Aldrich EO # 0.2 103/ul Normal 0.0-0.7 [facility] Comment on above: Performed By: #### C BC ####[facility] [address]ms[address] [place], [place] [address]Dr. Jossielalo Aldrich Eosinophils/100 WBC (Bld) 2.4 % Normal 0.9-7.0 [facility] Comment on above: Performed By: #### C BC ####[facility] [address] [place], [place] [address]Dr. Jossielalo Aldrich Erythrocyte distribution width (RBC) [Ratio] 12.5 % Normal 11.0-15.0 [facility] Comment on above: Performed By: #### C BC ####[facility] [address] [place], [place] [address]Dr. Wyatt Aldrich Hematocrit (Bld) [Volume fraction] 43.5 % Normal 42.0-54.0 [facility] Comment on above: Performed By: #### C BC ####[facility] Ez[address]etv[address] [place], [place] [address]Dr. Wyatt Aldrich Hemoglobin (Bld) [Mass/Vol] 14.4 g/dL Normal 14.0-18.0 [facility] Comment on above: Performed By: #### C BC ####[facility] [address] [place] [id number]. Wyatt Aldrich IG # 0.03 10e3/ul Normal 0.00-0.03 [facility] Comment on above: Performed By: #### C BC ####[facility] [address] [place] [address]Dr. Wyatt Aldrich IG % 0.4 % Normal 0.0-0.5 [facility] Comment on above: Performed By: #### C BC ####[facility] [address]ual[address] [place] [address]Dr. Wyatt Valdemar LYMPH # 2.1 103/ul Normal 1.2-3.8 [facility] Comment on above: Performed By: #### C BC ####[facility] [address]wt[address] [place] [address]Dr. Wyatt Aldrich Lymphocytes/100 WBC (Bld) 24.8 % Normal 20.5-60.0 [facility] Comment on above: Performed By: #### C BC ####[facility] [address]xs[address] [place] [address]Dr. Jossielalo Aldrich MANUAL DIFF REQ NO Normal [facility] Comment on above: Performed By: #### C BC ####[facility] [address] [place] [address]Dr. Wyatt Aldrich MCH (RBC) [Entitic mass] 30.6 pg Normal 25.9-34.0 [facility] Comment on above: Performed By: #### C BC ####[facility] [address] [place] [address]Dr. Wyatt Aldrich MCHC (RBC) [Mass/Vol] 33.1 g/dL Normal 29.9-35.2 [facility] Comment on above: Performed By: #### C BC ####[facility] F[address]oulexpl[address] [place] [address]Dr. Wyatt Aldrich MCV (RBC) [Entitic vol] 92.6 fL Normal 80.0-94.0 [facility] Comment on above: Performed By: #### C BC ####[facility] [address] [place] [address]Dv. Wyatt Aldrich MONO # 0.6 103/ul Normal 0.3-0.8 [facility] Comment on above: Performed By: #### C BC ####[facility] [address] [place] [address]Dr. Wyatt Aldrich Monocytes/100 WBC (Bld) 7.7 % Normal 1.7-12.0 [facility] Comment on above: Performed By: #### C BC ####[facility] [address] [place], [place] [address]Dr. Wyatt Aldrich NEUT # 5.3 103/ul Normal 1.4-6.5 [facility] Comment on above: Performed By: #### C BC ####[facility] N[address]wn[address]rah[address] [place], [place] [address]Dr. Wyatt Aldrich Neutrophils/100 WBC (Bld) 64.1 % Normal 43.0-75.0 [facility] Comment on above: Performed By: #### C BC ####[facility] J[address]vt[address]mh[address] [place], [place] [address]Dr. Wyatt Aldrich Platelet mean volume (Bld) [Entitic vol] 9.4 fL Critically low 9.5-13.5 [facility] Comment on above: Performed By: #### C BC ####[facility] [address]qu[address]ff[address] [place], [place] [address]Dr. Wyatt Aldrich PLT 280 103/ul Normal 150-450 [facility] Comment on above: Performed By: #### C BC ####[facility] [address]xkwfopnv[address] [place], [place] [address]Dr. Wyatt Aldrich RBC 4.70 106/ul Normal 4.70-6.10 [facility] Comment on above: Performed By: #### C BC ####[facility] Gxxt[address]ws[address] [place], [place] [address]Dr. Wyatt Aldrich WBC 8.3 103/ul Normal 4.0-11.0 [facility] Comment on above: Performed By: #### C BC ####[facility] [address] [place], [place] [address]Dr. Wyatt Aldrich FREE T3on 05-27-2022 FREE T3 2.70 pg/mlL Normal 2.18-3.98 [facility] Comment on above: Performed By: #### L IPID, CMP, TSH, FT3 ####[facility] [address] [place], [place] [address]XeDr. Wyatt Aldrich GLYCOHEMOGLOBIN A1Con 2021 ADA RECOMMENDATION SEE BELOW Normal [facility] Comment on above: Result Comment: ADA RECOMMENDED LIMIT 4.0 - 6.0 ADA THERAPEUTIC TARGET < 7.0 ACTION SUGGESTED > 7.0 Performed By: #### A 1C #### [facility] [address] [address] [address] Wyatt Aldrich Glucose [Mass/Vol] 143 mg/dL Normal [facility] Comment on above: Performed By: #### A 1C #### [facility] [address] [address] [address] Wyatt Aldrich HbA1c (Bld) [Mass fraction] 6.6 % Critically high 4.5-6.2 [facility] Comment on above: Performed By: #### A 1C #### [facility] [address] [address] [address] Wyatt Aldrich LIPID PROFILEon 01-28-2022 CHOL-HDL RATIO NORM SEE BELOW Normal [facility] Comment on above: Result Comment: 3.3 - 4.4 LOW RISK 4.4 - 7.1 AVERAGE RISK 7.1 - 11.0 MODERATE RISK >11.0 HIGH RISK Performed By: #### L IPID, CMP, TSH, FT3 ####[facility] [address] [place] [id number]. Wyatt Aldrich Cholesterol [Mass/Vol] 176 mg/dL Normal <=200 [facility] Comment on above: Performed By: #### L IPID, CMP, TSH, FT3 ####[facility] Elunoolsgl[address] [place] [id number]. Wyatt Aldrich Cholesterol in HDL [Mass/Vol] 35 mg/dL Critically low 40-60 [facility] Comment on above: Performed By: #### L IPID, CMP, TSH, FT3 ####[facility] [address] [place], [place] [address]Mr. Wyatt Valdemar Cholesterol in LDL [Mass/Vol] 94.4 mg/dL Normal [facility] Comment on above: Performed By: #### L IPID, CMP, TSH, FT3 ####[facility] [address]qfr[address] [place], [place] [address]Do. Wyatt Aldrich Cholesterol.total/Ch olesterol in HDL [Mass ratio] 5.0 {ratio} Normal [facility] Comment on above: Performed By: #### L IPID, CMP, TSH, FT3 ####[facility] [address] [place] [id number]. Wyatt Aldrich HDL NORMAL > or = 60 mg/dl - LO W CARDIOVASCULAR RISK <40 mg/dl - HIGH CARDIOVASCULAR RISK Normal [facility] Comment on above: Performed By: #### L IPID, CMP, TSH, FT3 ####[facility] [address] [place] [id number]. Wyatt Aldrich LDL CALC NORMAL SEE BELOW Normal [facility] Comment on above: Result Comment: <100 mg/dl OPTIMAL 100 - 129 mg/dl NEAR OR ABOVE OPTIMAL 130 - 159 mg/dl BORDERLINE HIGH 160 - 189 mg/dl HIGH >190 mg/dl VERY HIGH Performed By: #### L IPID, CMP, TSH, FT3 ####[facility] [address] [place] [id number]. Wyatt Aldrich Triglyceride [Mass/Vol] 233 mg/dL Critically high <=150 [facility] Comment on above: Performed By: #### L IPID, CMP, TSH, FT3 ####[facility] [address] [place] [id number]. Wyatt Aldrich VLDL CALC 46.6 mg/dL Normal [facility] Comment on above: Performed By: #### L IPID, CMP, TSH, FT3 ####[facility] Wtsqjcm[address]zp[address] [place] [id number]. Wyatt Aldrich OCC BLD IMMUNO SCREENon 05 OCCULT BLOOD Negative Normal NEGATIVE [facility] Comment on above: Performed By: #### O BSCRN #### [facility] [address] [place] [address] [address] Wyatt Alrdich PROF 14(COMP METB)on 022 Albumin [Mass/Vol] 3.4 g/dL Normal 3.4-5.0 [facility] Comment on above: Performed By: #### L IPID, CMP, TSH, FT3 ####[facility] [address] [place] [address]Dr. Wyatt Aldrich Albumin/Globulin [Mass ratio] 1.0 {ratio} Normal [facility] Comment on above: Performed By: #### L IPID, CMP, TSH, FT3 ####[facility] [address] [place] [address]Dr. Wyatt Aldrich ALP [Catalytic activity/Vol] 65 U/L Normal 46-116 [facility] Comment on above: Performed By: #### L IPID, CMP, TSH, FT3 ####[facility] [address] [place] [address]Dr. Wyatt Aldrich ALT [Catalytic activity/Vol] 45 U/L Normal 16-63 [facility] Comment on above: Performed By: #### L IPID, CMP, TSH, FT3 ####[facility] [address] [place] [address]Dr. Wyatt Aldrich Anion gap [Moles/Vol] 9.7 mmol/L Normal [facility] Comment on above: Performed By: #### L IPID, CMP, TSH, FT3 ####[facility] [address] [place] [address]Dr. Wyatt Aldrich AST [Catalytic activity/Vol] 20 U/L Normal 15-37 [facility] Comment on above: Performed By: #### L IPID, CMP, TSH, FT3 ####[facility] [address] [place] [address]Dr. Wyatt Aldrich Bilirubin [Mass/Vol] 0.4 mg/dL Normal 0.2-1.0 [facility] Comment on above: Performed By: #### L IPID, CMP, TSH, FT3 ####[facility] [address] [place] [address]Dr. Wyatt Aldrich Calcium [Mass/Vol] 8.5 mg/dL Normal 8.5-10.1 [facility] Comment on above: Performed By: #### L IPID, CMP, TSH, FT3 ####[facility] [address] [place] [address]Dr. Wyatt Aldrich Chloride [Moles/Vol] 101 mmol/L Normal 98-107 [facility] Comment on above: Performed By: #### L IPID, CMP, TSH, FT3 ####[facility] [address] [place] [address]Dr. Wyatt Aldrich CO2 [Moles/Vol] 33.3 mmol/L Critically high 21.0-32.0 [facility] Comment on above: Performed By: #### L IPID, CMP, TSH, FT3 ####[facility] [address] [place] [address]Dr. Wyatt Aldrich Creatinine [Mass/Vol] 0.77 mg/dL Normal 0.70-1.30 [facility] Comment on above: Performed By: #### L IPID, CMP, TSH, FT3 ####[facility] [address] [place], [place] [address]Dr. Wyatt Valdemar EGFR-AF FINNISH >60 Normal >=60 [facility] Comment on above: Performed By: #### L IPID, CMP, TSH, FT3 ####[facility] [address] [place] [address]Dr. Wyatt Valdemar EGFR-NON AF FINNISH >60 Normal >=60 [facility] Comment on above: Performed By: #### L IPID, CMP, TSH, FT3 ####[facility] [address] [place] [address]Dr. Jossielalo Aldrich Globulin (S) [Mass/Vol] 3.3 g/dL Normal [facility] Comment on above: Performed By: #### L IPID, CMP, TSH, FT3 ####[facility] [address] [place] [address]Dr. Wyatt Aldrich Glucose [Mass/Vol] 137 mg/dL Critically high 74-106 [facility] Comment on above: Performed By: #### L IPID, CMP, TSH, FT3 ####[facility] [address] [place] [address]Dr. Wyatt Aldrich Potassium [Moles/Vol] 4.0 mmol/L Normal 3.5-5.1 [facility] Comment on above: Performed By: #### L IPID, CMP, TSH, FT3 ####[facility] [address]vf[address] [place] [address]Dr. Wyatt Aldrich Protein [Mass/Vol] 6.7 g/dL Normal 6.4-8.[address] [facility] Comment on above: Performed By: #### L IPID, CMP, TSH, FT3 ####[facility] [address] [place] [address]Dr. Wyatt Aldrich Sodium [Moles/Vol] 140 mmol/L Normal 136-145 [facility] Comment on above: Performed By: #### L IPID, CMP, TSH, FT3 ####[facility] [address] [place] [address]Dr. Wyatt Aldrich Urea nitrogen [Mass/Vol] 13.0 mg/dL Normal 7.0-18.0 [facility] Comment on above: Performed By: #### L IPID, CMP, TSH, FT3 ####[facility] [address] [place] [address]Dr. Wyatt Aldrich Urea nitrogen/Creatinine [Mass ratio] 16.9 mg/mg Normal [facility] Comment on above: Performed By: #### L IPID, CMP, TSH, FT3 ####[facility] [address] [place] [address]Dr. Wyatt Aldrich TSHon 01-28-2022 TSH 5.562 uIU/mL Critically high 0.358-3.740 [facility] Comment on above: Performed By: #### L IPID, CMP, TSH, FT3 ####[facility] [address] [place] [address]Dr. Wyatt Aldrich TSH RANGE SEE BELOW Normal [facility] Comment on above: Result Comment: <0.3 4 UIU/ml HYPERTHYROID 0.34-5.60 UIU/ml EUTHYROID >5.60 UIU/ml HYPOTHYROID Performed By: #### L IPID, CMP, TSH, FT3 ####[facility] [address] [place], [place] [address]Cv. Wyatt Aldrich XR KUB 1 VIEWon 01-20-2022 [...] MANSOOR LIMA Date: 2022-01-20 14:12 Normal [facility] MRI LSPINE WO W CONon 2021 [...] by: TANISHA CHIU Date: 2021-10-04 11:23 Normal [facility] XR LSPINE MIN 4 VIEWSon 09-05 XR [...] by: SOLO SAVAGE Date: 2021-09-27 11:31 Normal [facility] Vital Signs Date Time Vital Sign Value Performing Clinician Jessi chowdhury 10-29-2024 08:25-0500 Blood Pressure Location Michele RAYGOZA [facility] [place] 10-29-2024 08:25-0500 Diastolic blood pressure 72 mm[Hg] Michele RAYGOZA [facility] [place] 10-29-2024 08:25-0500 Heart rate 64 /min Michele RAYGOZA [facility] [place] 10-29-2024 08:25-0500 Respiratory rate 16 /min Michele NILL [facility] [place] 10-29-2024 08:25-0500 Systolic blood pressure 129 mm[Hg] Michele NILL [facility] [place] 09-10-2024 09:50-0500 Diastolic blood pressure 78 mm[Hg] Zena Orzech [facility] 09-10-2024 09:50-0500 Mean blood pressure 99 mm[Hg] Zena Orzech [facility] 09-10-2024 09:50-0500 Systolic blood pressure 140 mm[Hg] Zena Orzech [facility] 09-10-2024 09:27-0500 Blood Pressure Location Zena Orzech [facility] 09-10-2024 09:27-0500 Body temperature 98.6 [degF] Zena Orzech [facility] 09-10-2024 09:27-0500 Diastolic blood pressure 96 mm[Hg] Zena Orzech [facility] 09-10-2024 09:27-0500 Heart rate 69 /min Zena Orzech [facility] 09-10-2024 09:27-0500 Systolic blood pressure 190 mm[Hg] Zena Orzech [facility] 06-11-2024 08:19-0400 Blood Pressure Location Yovany AKHTAR [facility] 06-11-2024 08:19-0400 Diastolic blood pressure 111 mm[Hg] Yovany COOK [facility] 06-11-2024 08:19-0400 Heart rate 71 /min Yovany COOK [facility] 06-11-2024 08:19-0400 Systolic blood pressure 190 mm[Hg] Yovany COOK [facility] 06-06-2023 08:48-0400 Blood Pressure Location Yovany COOK [facility] 06-06-2023 08:48-0400 Diastolic blood pressure 66 mm[Hg] Yovany COOK [facility] 06-06-2023 08:48-0400 Heart rate 83 /min Yovany COOK [facility] 06-06-2023 08:48-0400 Systolic blood pressure 142 mm[Hg] Yovany COOK [facility] 06-17-2022 09:14-0400 Blood Pressure Location Yovany COOK [facility] 06-17-2022 09:14-0400 Diastolic blood pressure 96 mm[Hg] Yovany COOK [facility] 06-17-2022 09:14-0400 Heart rate 67 /min Yovany COOK [facility] 06-17-2022 09:14-0400 Systolic blood pressure 159 mm[Hg] Yovany COOK [facility] 06-10-2022 09:54-0400 Blood Pressure Location Yovany AKHTAR [facility] 06-10-2022 09:54-0400 Diastolic blood pressure 102 mm[Hg] Yovany COOK [facility] 06-10-2022 09:54-0400 Heart rate 68 /min Yovany COOK [facility] 06-10-2022 09:54-0400 Systolic blood pressure 166 mm[Hg] Yovany COOK [facility] 01-21-2022 08:44-0400 Blood Pressure Location Yovany Weixinhai [facility] [place] 01-21-2022 08:44-0400 Diastolic blood pressure 87 mm[Hg] Yovany AKHTAR [facility] [place] 01-21-2022 08:44-0400 Heart rate 72 /min Yovany AKHTAR [facility] [place] 01-21-2022 08:44-0400 Systolic blood pressure 140 mm[Hg] [facility]ixinhai [facility] Date Encounter Type Care Provider Facility Start: 10-29-2024 End: 10-29-2024 ambulatory Michele RAYGOZA Facility: [facility] Start: 10-29-2024 End: 10-29-2024 Patient encounter procedure Michele RAYGOZA [facility] [place] Start: 10-18-2024 ambulatory Yovany AKHTAR Facility:[facility] Start: 09-10-2024 End: 09-10-2024 ambulatory Zena X Orzech Facility:[facility] [place] Start: 09-10-2024 End: 09-10-2024 Patient encounter procedure Zena X Orzech [facility] [place] Start: 06-11-2024 End: 06-11-2024 ambulatory Yovany AKHTAR Facility:[facility] [place] Start: 06-11-2024 End: 06-11-2024 Patient encounter procedure Yovany AKHTAR [facility] [place] Start: 06-10-2024 End: 06-10-2024 ambulatory Heather Turcios MD Facility: [facility] Start: 02-19-2024 End: 02-19-2024 ambulatory Heather Turcios MD Facility: [facility] Start: 02-05-2024 End: 02-05-2024 ambulatory Heather Turcios MD Facility: [facility] Start: 12-25-2023 End: 12-25-2023 ambulatory MICHALE KIM Not Available Start: 12-21-2023 End: 12-21-2023 ambulatory BALTA OTTO Not Available Start: 12-19-2023 End: 12-19-2023 ambulatory MICHAEL KIM Not Available Start: 06-06-2023 End: 06-06-2023 Patient encounter procedure Yovany AKHTAR [facility] [place] Start: 06-17-2022 End: 06-17-2022 Patient encounter procedure Yovany AKHTAR [facility] [place] Start: 06-16-2022 End: 06-17-[address] NANCY FERNANDEZ Facility:[facility] Start: 06-10-2022 End: 06-10-2022 Patient encounter procedure Yovany AKHTAR [facility] [place] Start: 06-09-2022 End: 06-10-[address] NANCY FERNANDEZ Facility:[facility] Start: 05-29-2022 End: 05-29-[address] NANCY FERNANDEZ Facility:[facility] Start: 05-11-2022 End: 05-11-2022 Patient encounter procedure Yovany AKHTAR [facility] Start: 02-03-2022 Encounter for genera l adult medical examination without abnormal findings DR NANCY FERNANDEZ [facility] Start: 01-28-2022 End: 01-29-[address] NANCY FERNANDEZ Facility:[facility] Start: 01-28-2022 End: 01-29-2022 Encounter for general adult medical examination without abnormal findings DR NANCY FERNANDEZ Facility:[facility] Start: 01-21-2022 End: 01-21-2022 Patient encounter procedure Yovany AKHTAR [facility] [place] Start: 01-20-2022 End: 01-21-[address] [...] on above: Performed By: #### P SAD ####[place] [address]Dr. Wyatt Aldrich Start: 08-13-2020 Extracorporeal shock wave [...] disectomy Yovany AKHTAR carlo anal abcess Yovany EXHAUSTER ENGINEER K Repair of anal fistula Marvel ry GIOVANA Tonsillectomy Michele RAYGOZA Plan of Treatment Date Care Activity Detail Author Start: 06-10-2025 ambulatory Ambulatory Facility:[facility] Immunization Date Immunization Notes Care Provider [facility] 04-19-2022 zoster vaccine recombinant Yovany AKHTAR [facility] 02-12-2022 pneumococcal 20-maría nt conjugate vaccine Yovany AKHTAR [facility] 02-03-2022 zoster vaccine recombinant Yovany AKHTAR [facility] 12-08-2020 SARS-CoV-2 (COVID-19 ) mRNA-5323 vaccine Yovany AKHTAR [facility] 11-17-2020 SARS-CoV-2 (COVID-19 ) mRNA BNT-162b2 vax Yovany AKHTAR [facility] 11-11-2020 SARS-CoV-2 (COVID-19 ) mRNA-1273 vaccine Yovany AKHTAR [facility] Payers Date Payer Category Payer Unknown 2023 Unknown [id number] 1965 Unknown [id number] 2.16.84 [id number] 1965 Unknown [id number] 2.16.84 [id number] 1964 Unknown [id number] 2.16.84 0.1.947481.3.579.2.593 1964 Unknown [id number] 2.16.84 0.1.931743.3.579.2.593 1964 Unknown [id number] 2.16.84 0.1.404137.3.579.2.593 1964 Unknown [id number] 2.16.84 0.1.562006.3.579.2.593 1964 Unknown [id number] 2.16.84 0.1.576205.3.579.2.593 1964 Unknown [id number] 2.16.84 0.1.361994.3.579.2.593 1964 Unknown [id number] 2.16.84 0.1.162695.3.579.2.1259 1964 Unknown [id number] 2.16.84 0.1.840497.3.579.2.1259 1964 Unknown [id number] 2.16.84 0.1.775683.3.579.2.1259 1964 Unknown [id number] 2.16. 840.1.086025.3.579.2.196 1964 Unknown [id number] 2.16. 840.1.444102.3.579.2.196 1964 Unknown [id number] 2.16. 840.1.585729.3.579.2.196 1964 Unknown [id number] 2.16.8 40.1.645548.3.579.2.727 1964 Unknown [id number] 2.16.8 40.1.776816.3.579.2.727 1964 Unknown [id number] 2.16.8 40.1.556440.3.579.2.727 1964 Unknown [id number] 2.16.8 40.1.592922.3.579.2.727 1959 Private Health Insurance [id number] Social History Date Type Detail Facility Start: 01-15-2021 End: 10-29-2024 Tobacco smoking status Ex-smoker (finding) [facility] Tobacco smoking status Never [facility] Sex Assigned At Male [facility] Functional Status Date Assessment Result Facility 10-29-2024 Functional Status N/A [facility] [place] 09-10-2024 Functional Status N/A [facility] 06-11-2024 Functional Status N/A [facility] 06-06-2023 Functional Status N/A [facility] 06-17-2022 Functional Status N/A [facility] 06-10-2022 Functional Status N/A [facility] Clinical Notes 01-21-2022 to 10-29-2024 Laboratory Note [...] tab(s), Oral, Alexus (more content not included)... [facility] Comment on above: Result Comment: Elec tronically Signed By: JARET CANTOR, Michele Prince.br\Date and Time Signed: 10/29/24 08:56 EST 09-10-2024 Hospital Discharge instructions Patient Education 09/10/2024 09:53:34 Kidney Stones, Vbhu-xa-Nffg Kidney Stones Kidney stones are rock-like masses [...] Follow these instructions at home: Medicines Take ihff-hlg-ekfinmo and prescription medicines only as told by [...] provider. Document Revised: 04/14/2023 Document Reviewed: 04/14/2023 [employer] Patient Education 2023 [employer]. Follow Up Care 08/15/2024 10:52:33 With:GIOVANA CANTOR, Yovany Kwan, URL Address: [facility] [employer] [address] [place], [place] [id number]- When: Unknown [facility] 09-10-2024 Note Patient Education Urology Kidney Stones [...] these instructions at home: Medicines ??? Take bgja-tea-zmxgzqe and prescription medicines only as told by [...] provider. Document Revised: 04/14/2023 Document Reviewed: 04/14/2023 [employer] Patient Education ? 2023 [employer]. [facility] 06-11-2024 Hospital Discharge instructions Patient Education 06/11/2024 [...] you may eat and drink normally. Take cggt-vwd-zegldmu and prescription medicines only as told by your health care provider. Let your health care provider know about any medicines that you are taking, including aocp-gov-zztqarh medicines, vitamins, herbs, and supplements. Choose a [...] provider. Document Revised: 02/25/2022 Document Reviewed: 02/25/2022 [employer] Patient Education 2023 [employer]. 06/11/2024 08:23:10 Dietary Guidelines to Help Prevent [...] include: ?8 oz (237 mL) of milk, clstckp-lluqisbsbwjv-utnvh milk, and calcium-fortifiedfruit juice. Calcium-fortified means that [...] ?Spinach (cooked), rhubarb, beets, sweet potatoes, and Indian chard. ?Peanuts. ?Potato chips, kenyan fries, and baked potatoes with skin on. ?Nuts and nut products. ?Chocolate. If you regularly take a diuretic medicine, make sure to eat at least 1 or 2 servings of fruits or vegetables that are high in potassium each day. These include: ?Avocado. ?Banana. ?Blissfield, prune, carrot, or tomato juice. ?Baked potato. [...] magnesium, fish oil, or vitamin B6. Take ethx-yam-taxytqs and prescription medicines only as told by [...] Casseroles. Pizza. Lasagna. Frozen meals. Potato chips. Nigerian fries. The items listed above may not [...] provider. Document Revised: 12/01/2022 Document Reviewed: 12/01/2022 [employer] Patient Education 2023 [employer]. Follow Up Care 06/06/2023 09:30:15 With:GIOVANA CANTOR, Yovany Kwan, URL Address: [address] [place] [address]- When: Unknown [facility] 06-11-2024 Note Patient Education Nephrology Dietary Guidelines [...] ? 8 oz (237 mL) of milk, ldqlban-hmwatpicocxe-uquhg milk, and calcium-fortifiedfruit juice. Calcium-fortified means that [...] Spinach (cooked), rhubarb, beets, sweet potatoes, and Indian chard. ? Peanuts. ? Potato chips, kenyan fries, and baked potatoes with skin on. ? Nuts and nut products. ? Chocolate. ? If you regularly take a diuretic medicine, make sure to eat at least 1 or 2 servings of fruits or vegetables that are high in potassium each day. These include: ? Avocado. ? Banana. ? Blissfield, prune, carrot, or tomato juice. ? Baked [...] fish oil, or vitamin B6. ? Take wzml-vta-znquiou and prescription medicines only as told by your health care provider. These include suppleme (more content not included)... [facility] 06-06-2023 Hospital Discharge instructions Patient Education 06/06/2023 [...] include: ?8 oz (237 mL) of milk, tkunkkh-gkzjsnexugjz-cmxvx milk, and calcium-fortifiedfruit juice. Calcium-fortified means that [...] ?Spinach (cooked), rhubarb, beets, sweet potatoes, and Indian chard. ?Peanuts. ?Potato chips, kenyan fries, and baked potatoes with skin on. ?Nuts and nut products. ?Chocolate. If you regularly take a diuretic medicine, make sure to eat at least 1 or 2 servings of fruits or vegetables that are high in potassium each day. These include: ?Avocado. ?Banana. ?Blissfield, prune, carrot, or tomato juice. ?Baked potato. [...] magnesium, fish oil, or vitamin B6. Take iaxv-zcy-ffnkjor and prescription medicines only as told by [...] Casseroles. Pizza. Lasagna. Frozen meals. Potato chips. Nigerian fries. The items listed above may not [...] Document Reviewed: 05/02/2022 Elsevier Patient Education 2022 [employer]. Follow Up Care 01/21/2022 09:03:45 With:GIOVANA CANTOR, Yovany Kwan, ESHA Address: Mandeep CAPUTO [address] [place] [id number]- When:Within 1 Year(s) Comments:w/MT [facility] 06-17-2022 Hospital Discharge instructions Patient Education [...] include: ?Spinach. ?Rhubarb. ?Beets. ?Potato chips and kenyan fries. ?Nuts. If you regularly take a diuretic medicine, make sure to eat at least 1 2 fruits or vegetables high in potassium each day. These include: ?Avocado. ?Banana. ?Blissfield, prune, carrot, or tomato juice. ?Baked potato. [...] Casseroles. Pizza. Lasagna. Frozen meals. Potato chips. Nigerian fries. Summary You can reduce your risk [...] 12/16/2011 Document Revised: 12/11/2019 Document Reviewed: 08/01/2017 [employer] Patient Education 2020 [employer] Follow Up Care 06/10/2022 10:24:22 With:GIOVANA CANTOR, Yovany P, URL Address: [address] [place] [id number]- When:6 months Comments:claire/ [place] [facility] [place] 06-10-2022 Hospital Discharge instructions Patient Education [...] include: ?Spinach. ?Rhubarb. ?Beets. ?Potato chips and kenyan fries. ?Nuts. If you regularly take a diuretic medicine, make sure to eat at least 1 2 fruits or vegetables high in potassium each day. These include: ?Avocado. ?Banana. ?Blissfield, prune, carrot, or tomato juice. ?Baked potato. [...] Casseroles. Pizza. Lasagna. Frozen meals. Potato chips. Nigerian fries. Summary You can reduce your risk [...] 12/16/2011 Document Revised: 12/11/2019 Document Reviewed: 08/01/2017 [employer] Patient Education 2020 [employer]. Follow Up Care 05/30/2022 09:25:01 With:GIOVANA CANTOR, Yovany Kwan, URL Address: [address] [address]- When:2 weeks Comments:MICHAELB [facility] [place] 01-21-2022 Hospital Discharge instructions Patient Education [...] urethra. Follow these instructions at home: Take vazt-sot-lxjrjhu and prescription medicines only as told by [...] 08/21/2006 Document Revised: 07/16/2019 Document Reviewed: 09/25/2017 [employer] Patient Education 2020 [employer]. Follow Up Care 01/15/2021 08:45:48 With:Yovany AKHTAR MD, URL Address: [address] [place] [address]- When:01/21/2023 Comments:with PSA and x-ray [facility] Evaluation + Plan note Future Appointments Appointment Date:02/24/2023 08:00:00 AM Scheduled Provider:Yovany AKHTAR MD Location:[facility] Appointment Type:URO Office Visit [facility] Evaluation + Plan note Future Appointments Appointment Date:02/24/2023 08:00:00 AM Scheduled Provider:Yovany AKHTAR MD [facility] [facility] Appointment Type:URO Office Visit Future Scheduled TestsPT & PTT 04/20/22N 04/20/22Creatinine 04/20/22Electrolyte Panel 04/20/22CBC w/ Auto Diff 04/20/22 [facility] Evaluation + Plan note Future Appointments Appointment Date:06/17/2022 09:15:00 AM Scheduled Provider:Yovany AKHTAR MD Location[facility] Appointment Type:URO Office Visit Appointment Date:02/24/2023 08:00:00 AM Scheduled Provider:Yovany AKHTAR MD Location[facility] Appointment Type:URO Office Visit [facility] Evaluation + Plan note Future Appointments Appointment Date:06/11/2024 08:00:00 AM Scheduled Provider:Yovany AKHTAR MD Location:[facility] Appointment Type:URO Office Visit [facility] Evaluation + Plan note Future Appointments Appointment Date:06/10/2025 08:00:00 AM Scheduled Provider:Yovany AKHTAR MD Location:[facility] Appointment Type:URO Office Visit [facility] Hospital course Narrative No data available for this section [facility] Hospital Discharge instructions No data available for this section [facility] Progress note No data available for this section [facility] Summary Purpose Family History No [...] content) Personnel Name: Nancy Fernandez MD Address: [address] [place] [address] Personnel Name: Nancy Fernandez MD Address: Address: [address] [place] [address] Personnel Name: Nancy Fernandez MD Address: Address: [address] [place] [address] [address] [place], [place] [address] Personnel Name: Nancy Fernandez MD Address: Address: [address] [place] [address] [place] [address]- Personnel Name: Nancy Fernandez MD Address: Address: [address] [place] [address] [place] [id number] Personnel Name: Nancy Fernandez MD Address: Address: [address] [place] [address] Personnel Name: Nancy Fernandez MD Address: Address: [address] [place] [address] (unrecognized sect ion and content) No Status Records FoundNo Status Records FoundNo Status Records FoundNo Status Records Found INFORMATION SOURCE (unrecogn ized section and content) DATE CREATED AUTHOR 07/07/2022 [facility] DATE CREATED AUTHOR AUTHOR'S ORGANIZ ATION 12/26/2023 [facility] DATE CREATED AUTHOR AUTHOR'S ORGANIZ ATION 06/19/2024 [facility] DATE CREATED AUTHOR AUTHOR'S ORGANIZ ATION 10/30/2024 [facility] FOR RECORDS PERTAINING TO PATIENTS [...] BE BASED ON THE PRIMARY CLINICAL RECORDS. [facility] provides no warranty or guarantee of the accuracy or completeness of information in this document.
--- NOTE | 2024-11-27 09:45 | P.CN_ITS ---
Consult Note: HPI Data of Consult Patient: known to practice within the last 3 years Requesting Physician: Shilpi Britton NP Primary Care Provider: Asim Fernandez MD Consult Narrative Reason for consult: chronic low back pain, left radiculopathy Narrative: Elvis Hernandez a pleasant 59 year old male presents for assessment of chronic low back pain with left sided radiculopathy. Chronic low back pain greater than 10 years, hx of lumbar discectomy in 2009. Patient completed greater than 6 weeks of PT/HEP without improvement, updated lumbar xray and MRI below consistent with degenerative changes as well as multilevel central and foraminal stenosis. Previously reported chronic low back pain and weakness of left leg, pain increasing to 10/10 with standing walking activity. Pain improved with forward flexion and rest. Patient denies loss of bowel/bladder, no falls. Failed to benefit from motrin, meloxicam, celebrex and tylenol. utilizes motrin, baclofen and tramadol as needed for moderate to severe pain with benefit without side effect through PCP. in the past failed meloxicam, celebrex, pregabalin, gabapentin. Previously underwent left L3/4 L4/5 TFESI with >50% improvement greater than 3 months cc:: CC: Shilpi Britton NP Review of Systems ROS Status of ROS 10 or more systems reviewed and unremark able except as noted in history and below Musculoskeletal Reports: back pain and joint pain PFSH PFSH Medical History Surgical procedures, elective ?Z41.9 - Encounter for procedure for purposes other than remedying health state, unspecified (ICD-10) Neuropathy ?G62.9 - Polyneuropathy, unspecified (ICD-10) Normal colonoscopy Renal lithiasis ?N20.0 - Calculus of kidney (ICD-10) HTN (hypertension) ?I10 - Essential (primary) hypertension (ICD-10) Hypothyroidism ?E03.9 - Hypothyroidism, unspecified (ICD-10) Diabetes ?E11.9 - Type 2 diabetes mellitus without complications (ICD-10) Traumatic brain injury ?S06.9XAA - Unspecified intracranial injury with loss of consciousness status unknown, initial encounter (ICD-10) MARGE (obstructive sleep apnea) ?G47.33 - Obstructive sleep apnea (adult) (pediatric) (ICD-10) COPD (chronic obstructive pulmonary disease) ?J44.9 - Chronic obstructive pulmonary disease, unspecified (ICD-10) 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 - Acute embolism and thrombosis of superior vena cava (ICD-10) Herniated lumbar intervertebral disc ?M51.26 - Other intervertebral disc displacement, lumbar region (ICD-10) Surgical History Pain management ?R52 - Pain, unspecified (ICD-10) History of cholecystectomy ?Z90.49 - Acquired absence of other specified parts of digestive tract (ICD- 10) History of tonsillectomy ?Z90.89 - Acquired absence of other organs (ICD-10) Hx of lithotripsy ?Z98.890 - Other specified postprocedural states (ICD-10) Hx of lumbar discectomy ?Z98.890 - Other specified postprocedural states (ICD-10) Meds Home Medications and Allergies Home Medications ?Medication ?Instructions ?Recorded ?Confirmed ?Type aspirin 81 mg capsule 81 mg PO DAILY 12/15/23 06/10/24 History carvedilol 25 mg tablet (Coreg) 37.5 mg PO Q12H 12/15/23 06/10/24 History glimepiride 2 mg tablet 2 mg PO DAILY 12/15/23 06/10/24 History hydralazine 50 mg tablet 50 mg PO TID 12/15/23 06/10/24 History hydrochlorothiazide 50 mg tablet 50 mg PO DAILY 12/15/23 06/10/24 History levothyroxine 125 mcg capsule 125 mcg PO DAILY 12/15/23 06/10/24 History metformin 500 mg tablet 500 mg PO BID 12/15/23 06/10/24 History multivitamin 1 tab PO DAILY 12/15/23 06/10/24 History olmesartan 40 mg tablet 40 mg PO DAILY 12/15/23 06/10/24 History pravastatin 20 mg tablet 20 mg PO DAILY 12/15/23 06/10/24 History tramadol 50 mg tablet 50 mg PO QID PRN pain 12/15/23 06/10/24 History Allergies Allergy/AdvReac Type Severity Reaction Status Date / Time No Known Drug Allergies Allergy Verified 06/10/24 07:57 Exam Constitutional Documenting provider has reviewed patient's vital signs: yes Common normals: no apparent distress, oriented x3, healthy appearing, alert and well nourished General appearance: cooperative HENMT Common normals: normocephalic, hearing grossly normal bilaterally and moist oral mucous membranes Head and scalp: normocephalic Eye Common normals: PERRL Pupil: PERRL Neck & C-Spine Common normals: full ROM General: normal visual inspection Chest Common normals: inspection of chest normal Respiratory Common normals: normal respiratory effort, no retractions and no use of accessory muscles Back & Pelvis Lumbar spine/lower back: ROM limited and pain with ROM Other: sensation decreased to left L3,4,5 strength 4/5 in LLE, 5/5 in RLE Extremity Common normals: normal to inspection and full ROM Neuro Common normals: oriented x3, CN's II-XII intact bilaterally, moves all extremities, no focal motor deficits, no sensory deficits noted and deep tendon reflexes 2+ bilaterally Sensorium/orientation: alert Motor exam: no movement abnormalities noted Psych Common normals: mental status grossly normal, thought process normal, cooperative, affect normal, speech normal and activity/motor behavior normal Speech: normal speech Thought process: normal thought process Results Imaging Lumbar MRI: Attestation: I have reviewed the pertinent imaging results. Radiologist's impression: There is lumbarization of S1. For dictation purposes, the lowest complete disc space in the lumbar spine considered as S1-S2. Right renal lesion with T2 prolongation not fully characterized by this study and statistically may suggest simple renal cyst. There is normal physiologic lumbar lordosis. The vertebral height is preserved. The conus medullaris is at the level of L1. No signal abnormality within the visualized spinal cord is noted. At the level of L1-L2, there are disc bulge with no neuroforaminal narrowing and no canal stenosis. At the level of L2-L3, there are disc bulge with mild bilateral neuroforaminal narrowing and moderate canal stenosis. At the level of L3-4, there are disc bulge with severe bilateral neuroforaminal narrowing and moderate canal stenosis. At the level of L4-5, there are disc bulge with moderate right and severe left neuroforaminal narrowing and mild canal stenosis. At the level of L5-S1, there are disc bulge with severe bilateral neuroforaminal narrowing and mild canal stenosis. The left S1 nerve root is in close contact with the disc bulge in the lateral recesses. 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 The paraspinal muscles are unremarkable. No abnormal enhancing lesion is noted. Lumbar Xray: Attestation: I have reviewed the pertinent imaging results. Radiologist's impression: Mild anterior wedging deformity of T11 and T12 vertebral bodies. Multilevel endplate degenerative changes, disc disease, anterior spurring and facet arthropathy of the thoracolumbar spine, most prominent from L3 to S1. Additional Findings Additional findings: If on a controlled substance or opioids, I have checked an [place] report on this patient and there are no aberrancies noted in the prescribing history.??If on a controlled substance or opioid a drug screen was completed and reviewed within the last year, and if there has not been a drug screen completed we ordered one today to monitor higher risk, state monitored pain medication use. As part of providing excellent, safe, comprehensive care, the following was completed at our patient's visit: 1. A medication reconciliation and review to ensure accurate knowledge of current/active medications, including asking our patients to inform us about any [id number] medications or herbal remedies/nutritional supplements/alternative remedies. 2. A review to specifically ensure our patients have had annual screening for screening for depression, screening for tobacco use, and screening for unhealthy alcohol use. For concerning screenings had a discussion with the patient, provided patient education, and recommended follow-up with primary care provider when appropriate. If patient noted with a risk of falling, they received education on strength, gait, and balance training to prevent future risk of falling. Portions of this note may have been carried over from the previous visit and updated as appropriate. Please note this office utilizes paper charting in addition to the electronic medical record. A list of current medications, vitals, and PMH is available there as the clinical staff outside of myself do not have access to [facility] charting during the clinic day operations. As part of providing quality comprehensive care the current medications, vitals, and PMH were reviewed in the paper chart. Assessment and Plan Assessment and Plan (1) Lumbar stenosis with neurogenic claudication: (2) Post laminectomy syndrome: (3) Myofascial pain: (4) Lumbar facet arthropathy: Plan repeat left L3-4 L4-5 TFESI under fluoroscopy, previous injection provided >50% improvement greater than 3 months refer to NS Dr Diehl for evaluation, pt interested in NS intervention at this time stop baclofen, start flexeril 10-20mg BID PRN pain/spasms continue motin and tramadol PRN f/u 2 weeks after DAVID
== END 2024-11-27 09:28 | disposition home or self-care (01) ==
PROVIDERS: PCP Family Medicine; Visit Provider Nurse Practitioner
DX: M48.062 Spinal stenosis, lumbar region with neurogenic claudication (principal); M96.1 Postlaminectomy syndrome, not elsewhere classified; M79.18 Myalgia, other site; M47.816 Spondylosis without myelopathy or radiculopathy, lumbar region
CPT/HCPCS: G0463

== ENCOUNTER 2024-12-09 09:36 | Day surgery (SDC) | payer BC, SELFPAY ==
--- OUTSIDE RECORDS SUMMARY | 2024-12-09 09:41 | XMS_ITS | CCD ---
Author Organization [facility] CliniSytn Care Team Providers Care Mother Tester Name Role Phone Nancy Fernandez Primary Care Physician DR NANCY FERNANDEZ Primary Care Unavailable COOK, [...] Allergy Hyperactive behavior (finding) [facility] Andrew Medications Current Medications Medication Drug [...] Start: 02-19-2019 take 2 tablets by mo [facility] once daily in the morning hydrochlorothiazide 25 [...] Ordered Start: 05-08-2020 take 1 tablet by [facility] twice daily metformin 500 mg ER Tab 500 mg = 1 tab(s), Oral, BID, Refills(s) 0, Blood glucose Start Date: 05/08/20 Status: Ordered olmesartan medoxomil 40 mg oral tablet (8 sources) Angiotensin 2 Receptor Espearnza Start: 03-06-2019 take 1 tablet by mouth [...] Daily, # 30 cap(s), Refills(s) 2, [id number], 188, cm, 06/10/22 9:57:00 EDT, Height/Length Dosing, [...] 02-19-2019 Episodic Other aftercare (1 source) Other detention (current) drug therapy; Translations: [OTH DAILY RELEASE AND DUPE PRINTER CURRENT DRUG THERAPY] Onset: 05-31-20 Episodic Other aftercare (1 source) intermediate (current) use of aspirin; Translations: [DAILY RELEASE AND DUPE PRINTER CURRENT USE OF ASPIRIN] Onset: 05-31-20 Episodic [...] CANTOR, Yovany Kwan Where: [facility] Andrew [address] [place] [address]- Medications What How Much When Instructions Unchanged [...] for choosing us for your care. Normal [facility] Reminderson 10-29-2024 Reminders Reminders From: Alexia Vega LPN To: GSN - Clinical; Sent: 10/29/2024 09:31:53 EST Show up: 02/16/2029 07:00:00 EDT Subject: colonoscopy recall Due Date/Time: 03/04/2029 07:00:00 EDT Reminder/Recall Patient is due for screening colonoscopy 03/2029. Normal [facility] Office/Clinic Noteon 09-12-2024 Urology Office/Clinic [...] Urnls Dip Stick Auto w/o Microscopy POC 04689 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) Metabolic workup 07/08/2024: [...] Urnls Dip Stick Auto w/o Microscopy POC 75612 Follow-up With When Contact Information GIOVANA CANTOR, Yovany Kwan, URL [address] [place] [id number]- Additional Instructions: Follow up in Jun 2025 w [place] Patient Education Kidney Stones, [id number] I, Cecilio Palacio, personally scribed for ELSIE [...] Elevated PSA History of procedure Hx of np use of blood thinners Hyperuricosuria Hypocitraturia Kidney stone Kidney stone Leukocytosis Lumbar radiculopathy Neuropathy Nocturia Obesity Osteoarthritis Osteoarthritis Type 2 diabetes mellitus without complication Historical GERD (gastroesophageal reflux disease) Neoplasm of uncertain behavior of skin Th (more content not included)... Normal [facility] Comment on above: Result Comment: Elec [...] Yovany AKHTAR MD Where: [facility] [address] [place] [address]- You Need to Schedule the Following Appointments Follow Up with Yovany AKHTAR MD, URL When: Where: [address] [address] Medications What How Much When Instructions Unchanged [...] Elevated PSA History of procedure Hx of np use of blood thinners Hyperuricosuria Hypocitraturia Kidney [...] bladder. (more content not included)... Normal [facility] Ambulatory Visit Summaryon 1 Ambulatory [...] Yovany AKHTAR MD Where: [facility] Anderw [address] [place] [address]- You Need to Schedule the Following Appointments Follow Up with Yovany AKHTAR MD, URL When: Where: [address] [address]- Medications What How Much When [...] 2, noninsulin dependent Elevated PSA Hx of np use of blood thinners Kidney stone Nocturia [...] drink normally. (more content not included)... Normal [facility] Office/Clinic Noteon 06-11-2024 Urology Office/Clinic [...] KUB was read as negative at the [facility] but to my review there may [...] Contact Information Yovany AKHTAR MD, URL [address] [place], [place] [id number]- Additional Instructions: 1 yr with KUB and [...] with voice recognition artificial intelligence software, specifically [employer], [email or web address] and or [employer]katter. Substitutions may have occurred due to the inherent limitations of voice recognition and artificial intelligence software. Problem List/Past Medical History Ongoing BMI 40.0-44.9, adult BPH (benign prostatic hyperplasia) Chronic anticoagulation Dermatofibroma of left upper arm Diabetes mellitus type 2, noninsulin dependent Elevated PSA Hx of np use of blood thinners Kidney stone Nocturia Osteoarthritis Historical GERD (gastroesophag (more content not included)... Normal [facility] Comment on above: Result Comment: Elec [...] MAN[place]OR [place] Date: 2022-06-16 18:56 Normal [facility] XR KUB 1 VIEWon 06-09-2022 [...] MAN[place]OR [place] Date: 2022-06-09 17:41 Normal [facility] CBC AUTO DIFFon 05-29-2022 BASO # 0.1 103/ul Normal 0.0-0.1 [facility] Comment on above: Performed By: #### C BC ####[facility] [address] [place] [id number]. Wyatt Aldrich Basophils/100 WBC (Bld) 0.2 % Normal 0.2-2.0 [facility] Comment on above: Performed By: #### C BC ####[facility] [address] [place], [place] [address]La. Wyatt Aldrich EO # 0.0 103/ul Normal 0.0-0.7 [facility] Comment on above: Performed By: #### C BC ####[facility] [address] [place] [id number]. Wyatt Aldrich Eosinophils/100 WBC (Bld) 0.2 % Critically low 0.9-7.0 [facility] Comment on above: Performed By: #### C BC ####[facility] [address] [place] [address]Dr. Wyatt Aldrich Erythrocyte distribution width (RBC) [Ratio] 12.3 % Normal 11.0-15.0 [facility] Comment on above: Performed By: #### C BC ####[facility] [address] [place] [address]Dr. Wyatt Aldrich Hematocrit (Bld) [Volume fraction] 45.9 % Normal 42.0-54.0 [facility] Comment on above: Performed By: #### C BC ####[facility] [address] [place], [place] [address]Dr. Wyatt Aldrich Hemoglobin (Bld) [Mass/Vol] 15.2 g/dL Normal 14.0-18.0 [facility] Comment on above: Performed By: #### C BC ####[facility] [address] [place], [place] [address]DrCullen Wyatt Aldrich IG # 0.09 10e3/ul Critically high 0.00-0.03 [facility] Comment on above: Performed By: #### C BC ####[facility] [address] [place], [place] [address]DrCullen Wyatt Aldrich IG % 0.4 % Normal 0.0-0.5 [facility] Comment on above: Performed By: #### C BC ####[facility] U[address] [place], [place] [address]DrCullen Wyatt Aldrich LYMPH # 1.1 103/ul Critically low 1.2-3.8 [facility] Comment on above: Performed By: #### C BC ####[facility] [address] [place], [place] [address]DrCullen Wyatt Aldrich Lymphocytes/100 WBC (Bld) 5.1 % Critically low 20.5-60.0 [facility] Comment on above: Performed By: #### C BC ####[facility] [address] [place], [place] [address]DrCullen Wyatt Valdemar MANUAL DIFF REQ NO Normal [facility] Comment on above: Performed By: #### C BC ####[facility] [address] [place] [id number]. Wyatt Valdemar MCH (RBC) [Entitic mass] 30.2 pg Normal 25.9-34.0 [facility] Comment on above: Performed By: #### C BC ####[facility] [address] [place] [address]Dr. Jossielalo Valdemar MCHC (RBC) [Mass/Vol] 33.1 g/dL Normal 29.9-35.2 [facility] Comment on above: Performed By: #### C BC ####[facility] [address] [place] [address]Dr. Wyatt Aldrich MCV (RBC) [Entitic vol] 91.3 fL Normal 80.0-94.0 [facility] Comment on above: Performed By: #### C BC ####[facility] B[address]urd[address] [place], [place] [address]Dr. Wyatt Aldrich MONO # 1.4 103/ul Critically high 0.3-0.8 [facility] Comment on above: Performed By: #### C BC ####[facility] [address]re[address] [place], [place] [address]Dr. Wyatt Aldrich Monocytes/100 WBC (Bld) 6.7 % Normal 1.7-12.0 [facility] Comment on above: Performed By: #### C BC ####[facility] Linmbgedgb[address] [place], [place] [address]Dr. Wyatt Aldrich NEUT # 18.5 103/ul Critically high 1.4-6.5 [facility] Comment on above: Performed By: #### C BC ####[facility] Ned[address] [place], [place] [address]DrCullen Aldrich Neutrophils/100 WBC (Bld) 87.4 % Critically high 43.0-75.0 [facility] Comment on above: Performed By: #### C BC ####[facility] [address] [place], [place] [address]DrCullen Aldrich Platelet mean volume (Bld) [Entitic vol] 9.3 fL Critically low 9.5-13.5 [facility] Comment on above: Performed By: #### C BC ####[facility] [address] [place], [place] [address]Hw. Wyatt Aldrich PLT 303 103/ul Normal 150-450 [facility] Comment on above: Performed By: #### C BC ####[facility] R[address]45[address] [place], [place] [address]Ij. Wyatt Aldrich RBC 5.03 106/ul Normal 4.70-6.10 [facility] Comment on above: Performed By: #### C BC ####[facility] [address] [place], [place] [address]Vk. Wyatt Aldrich WBC 21.2 103/ul Critically high 4.0-11.0 [facility] Comment on above: Performed By: #### C BC ####[facility] [address] [place], [place] [address]G[address]. Wy[address] CT ABD/PELVIS WO CONon 05-29 [...] GUZMAN Date: 2022-05-29 17:32 Normal [facility] ER URINE PROFILEon 2 Bilirubin Ql (U) Negative Normal NEGATIVE [facility] Comment on above: Performed By: #### U MICRO, ERUR #### [facility] [address] [place] [address] Dr. Wyatt Aldrich Clarity (U) CLEAR Normal CLEAR [facility] Comment on above: Performed By: #### U MICRO, ERUR #### [facility] [address] [place] [address] [address] Wyatt Aldrich Color (U) LT. YELLOW Normal YELLOW [facility] Comment on above: Performed By: #### U MICRO, ERUR #### [facility] [address] [place] [address] Dr. Wyatt Aldrich ERUPANCHOD A micrscopic examina tion will be performed if indicated. Normal [facility] Comment on above: Performed By: #### U MICRO, ERUR #### [facility] [address] [place] [address] [address] Wyatt Aldrich Glucose Ql (U) Negative Normal NEGATIVE [facility] Comment on above: Performed By: #### U MICRO, ERUR #### [facility] [address] [place] [address] Dr. Wyatt Aldrich Hemoglobin Ql (U) TRACE-INTACT Abnormal NEGATIVE [facility] Comment on above: Performed By: #### U MICRO, ERUR #### [facility] [address] [place] [address] [address] Wyatt Aldrich Ketones Ql (U) Negative Normal NEGATIVE [facility] Comment on above: Performed By: #### U MICRO, ERUR #### [facility] [address] [place] [address] [address] Wyatt Aldrich LEUKOCYTES Negative Normal NEGATIVE [facility] Comment on above: Performed By: #### U MICRO, ERUR #### [facility] [address] [place] [address] Dr. Wyatt Aldrich Nitrite Ql (U) Negative Normal NEGATIVE [facility] Comment on above: Performed By: #### U MICRO, ERUR #### [facility] [address] [place] [address] [address] Wyatt Aldrich pH (U) 7.0 [pH] Normal 5-9 [facility] Comment on above: Performed By: #### U MICRO, ERUR #### [facility] [address] [place] [address] [address] Wyatt Aldrich SPEC GRAVITY 1.020 Normal 1.005-<=1.025 [facility] [place] Comment on above: Performed By: #### U MICRO, ERUR #### [facility] [address] [place] [address] Dr. Wyatt Aldrich UA PROTEIN Negative Normal NEGATIVE/ TRACE [facility] Comment on above: Performed By: #### U MICRO, ERUR #### [facility] [address] [place] [address] Dr. Wyatt Aldrich UR MICRO IND INDICATED Normal [facility] Comment on above: Performed By: #### U MICRO, ERUR #### [facility] [address] [place] [address] Dr. Wyatt Aldrich Urobilinogen Qn (U) 0.2 {Sharon'U}/dL Normal 0.2 - 1. 0 [facility] Comment on above: Performed By: #### U MICRO, ERUR #### [facility] [address] [place] [address] Dr. Wyatt Aldrich PROF 14(COMP METB)on 022 Albumin [Mass/Vol] 3.9 g/dL Normal 3.4-5.0 [facility] Comment on above: Performed By: #### C MP #### [facility] [address] [place] [address] Dr. Wyatt Aldrich Albumin/Globulin [Mass ratio] 1.1 {ratio} Normal [facility] Comment on above: Performed By: #### C MP #### [facility] [address] [place] [address] Dr. Wyatt Aldrich ALP [Catalytic activity/Vol] 70 U/L Normal 46-116 [facility] Comment on above: Performed By: #### C MP #### [facility] [address] [place] [address] [address] Wyatt Aldrich ALT [Catalytic activity/Vol] 38 U/L Normal 16-63 [facility] Comment on above: Performed By: #### C MP #### [facility] [address] [place] [address] Dr. Wyatt Aldrich Anion gap [Moles/Vol] 12.6 mmol/L Normal [facility] Comment on above: Performed By: #### C MP #### [facility] [address] [place] [address] [address] Wyatt Aldrich AST [Catalytic activity/Vol] 20 U/L Normal 15-37 [facility] Comment on above: Performed By: #### C MP #### [facility] [address] [place] [address] [address] Wyatt Aldrich Bilirubin [Mass/Vol] 0.6 mg/dL Normal 0.2-1.0 [facility] Comment on above: Performed By: #### C MP #### [facility] [address] [place] [address] Dr. Wyatt Aldrich Calcium [Mass/Vol] 8.7 mg/dL Normal 8.5-10.1 [facility] Comment on above: Performed By: #### C MP #### [facility] [address] [place] [address] Dr. Wyatt Aldrich Chloride [Moles/Vol] 95 mmol/L Critically low 98-107 [facility] Comment on above: Performed By: #### C MP #### [facility] [address] [place] [address] [address] Wyatt Aldrich CO2 [Moles/Vol] 29.9 mmol/L Normal 21.0-32.0 [facility] Comment on above: Performed By: #### C MP #### [facility] [address] [place] [address] [address] Wyatt Aldrich Creatinine [Mass/Vol] 1.04 mg/dL Normal 0.70-1.30 [facility] Comment on above: Performed By: #### C MP #### [facility] [address] [place] [address] [address] Wyatt Aldrich EGFR-AF MALAYSIAN >60 Normal >=60 [facility] Comment on above: Performed By: #### C MP #### [facility] [address] [place] [address] [address] Wyatt Aldrich EGFR-NON AF MALAYSIAN >60 Normal >=60 [facility] Comment on above: Performed By: #### C MP #### [facility] [address] [place] [address] [address] Wyatt Aldrich Globulin (S) [Mass/Vol] 3.4 g/dL Normal [facility] Comment on above: Performed By: #### C MP #### [facility] [address] [place] [address] [address] Wyatt Aldrich Glucose [Mass/Vol] 148 mg/dL Critically high 74-106 T [facility] Comment on above: Performed By: #### C MP #### [facility] [address] [place] [address] [address] Wyatt Aldrich Potassium [Moles/Vol] 4.5 mmol/L Normal 3.5-5.1 [facility] Comment on above: Performed By: #### C MP #### [facility] [address] [place] [address] [address] Wyatt Aldrich Protein [Mass/Vol] 7.3 g/dL Normal 6.4-8.2 [facility] Comment on above: Performed By: #### C MP #### [facility] [address] [place] [address] [address] Wyatt Aldrich Sodium [Moles/Vol] 133 mmol/L Critically low 136-145 Th [facility] Comment on above: Performed By: #### C MP #### [facility] [address] [place] [address] [address] Wyatt Aldrich Urea nitrogen [Mass/Vol] 15.0 mg/dL Normal 7.0-18.0 [facility] Comment on above: Performed By: #### C MP #### [facility] [address] [place] [address] [address] Wyatt Aldrich Urea nitrogen/Creatinine [Mass ratio] 14.4 mg/mg Normal [facility] Comment on above: Performed By: #### C MP #### [facility] [address] [place] [address] [address] Wyatt Aldrich URINE MICROSCOPIC ONLYon BACTERIA NONE SEEN Normal NONE SEEN [facility] Comment on above: Performed By: #### U MICRO, ERUR #### [facility] [address] [place] [address] Dr. Wyatt Aldrich Bacteria identified Cx Nom (U) NOT INDICATED Normal [facility] Comment on above: Performed By: #### U MICRO, ERUR #### [facility] [address] [place] [address] Dr. Wyatt Aldrich CAST NONE SEEN Normal NONE SEEN [facility] Comment on above: Performed By: #### U MICRO, ERUR #### [facility] [address] [place] [address] Dr. Wyatt Aldrich Crystals LM Nom (Urine sed) NONE SEEN Normal NONE SEEN [facility] Comment on above: Performed By: #### U MICRO, ERUR #### [facility] [address] [place] [address] Dr. Wyatt Aldrich Epithelial cells LM Ql (Urine sed) NONE SEEN Normal NONE SEEN /RARE [facility] Comment on above: Performed By: #### U MICRO, ERUR #### [facility] [address] [place] [address] Dr. Wyatt Aldrich MUCOUS NONE SEEN Normal NONE SEEN [facility] Comment on above: Performed By: #### U MICRO, ERUR #### [facility] [address] [place] [address] Dr. Wyatt Aldrich RBC 2-5 Abnormal 0-2 [facility] Comment on above: Performed By: #### U MICRO, ERUR #### [facility] [address] [place] [address] Dr. Wyatt Aldrich WBC NONE SEEN Normal NONE SEEN [facility] Comment on above: Performed By: #### U MICRO, ERUR #### [facility] [address] [place] [address] Dr. Wyatt Aldrich T4 LABCORPon 01-29-2022 T4 [Mass/Vol] 9.1 ug/dL Normal 4.5-12.0 [facility] Comment on above: Performed By: #### T 4LC ####[facility] [address] [place] [address]Dr. Wyatt Valdemar CBC AUTO DIFFon 01-28-2022 BASO # 0.1 103/ul Normal 0.0-0.1 [facility] Comment on above: Performed By: #### C BC ####[facility] [address] [place], [place] [address]Dr. Wyatt Aldrich Basophils/100 WBC (Bld) 0.6 % Normal 0.2-2.0 [facility] Comment on above: Performed By: #### C BC ####[facility] [address] [place], [place] [address]Dr. Wyatt Aldrich EO # 0.2 103/ul Normal 0.0-0.7 [facility] Comment on above: Performed By: #### C BC ####[facility] [address] [place], [place] [address]Dr. Jossielalo Aldrich Eosinophils/100 WBC (Bld) 2.4 % Normal 0.9-7.0 [facility] Comment on above: Performed By: #### C BC ####[facility] [address] [place], [place] [address]Dr. Jossielalo Aldrich Erythrocyte distribution width (RBC) [Ratio] 12.5 % Normal 11.0-15.0 [facility] Comment on above: Performed By: #### C BC ####[facility] [address] [place], [place] [address]Dr. Wyatt Aldrich Hematocrit (Bld) [Volume fraction] 43.5 % Normal 42.0-54.0 [facility] Comment on above: Performed By: #### C BC ####[facility] [address] [place], [place] [address]Dr. Wyatt Aldrich Hemoglobin (Bld) [Mass/Vol] 14.4 g/dL Normal 14.0-18.0 [facility] Comment on above: Performed By: #### C BC ####[facility] [address] [place] [id number]. Wyatt Aldrich IG # 0.03 10e3/ul Normal 0.00-0.03 [facility] Comment on above: Performed By: #### C BC ####[facility] [address] [place] [address]Dr. Wyatt Aldrich IG % 0.4 % Normal 0.0-0.5 [facility] Comment on above: Performed By: #### C BC ####[facility] [address] [place] [address]Dr. Wyatt Valdemar LYMPH # 2.1 103/ul Normal 1.2-3.8 [facility] Comment on above: Performed By: #### C BC ####[facility] [address] [place] [address]Dr. Wyatt Aldrich Lymphocytes/100 WBC (Bld) 24.8 % Normal 20.5-60.0 [facility] Comment on above: Performed By: #### C BC ####[facility] [address] [place] [address]Dr. Jossielalo Aldrich MANUAL DIFF REQ NO Normal [facility] [place] Comment on above: Performed By: #### C BC ####[facility] [address] [place] [address]Dr. Wyatt Aldrich MCH (RBC) [Entitic mass] 30.6 pg Normal 25.9-34.0 [facility] Comment on above: Performed By: #### C BC ####[facility] [address] [place] [address]Dr. Wyatt Aldrich MCHC (RBC) [Mass/Vol] 33.1 g/dL Normal 29.9-35.2 [facility] Comment on above: Performed By: #### C BC ####[facility] [address] [place] [address]Dr. Wyatt Aldrich MCV (RBC) [Entitic vol] 92.6 fL Normal 80.0-94.0 [facility] Comment on above: Performed By: #### C BC ####[facility] [address] [place] [address]Pq. Wyatt Aldrich MONO # 0.6 103/ul Normal 0.3-0.8 [facility] Comment on above: Performed By: #### C BC ####[facility] [address] [place] [address]Dr. Wyatt Aldrich Monocytes/100 WBC (Bld) 7.7 % Normal 1.7-12.0 [facility] Comment on above: Performed By: #### C BC ####[facility] [address] [place], [place] [address]Dr. Wyatt Aldrich NEUT # 5.3 103/ul Normal 1.4-6.5 [facility] Comment on above: Performed By: #### C BC ####[facility] [facility] [address] [place], [place] [address]Dr. Wyatt Aldrich Neutrophils/100 WBC (Bld) 64.1 % Normal 43.0-75.0 [facility] Comment on above: Performed By: #### C BC ####[facility] [address] [place], [place] [address]Dr. Wyatt Aldrich Platelet mean volume (Bld) [Entitic vol] 9.4 fL Critically low 9.5-13.5 [facility] Comment on above: Performed By: #### C BC ####[facility] [address] [place], [place] [address]Dr. Wyatt Aldrich PLT 280 103/ul Normal 150-450 [facility] Comment on above: Performed By: #### C BC ####[facility] [address] [place], [place] [address]Dr. Wyatt Aldrich RBC 4.70 106/ul Normal 4.70-6.10 [facility] Comment on above: Performed By: #### C BC ####[facility] Ri[address] [place], [place] [address]Dr. Wyatt Aldrich WBC 8.3 103/ul Normal 4.0-11.0 [facility] Comment on above: Performed By: #### C BC ####[facility] [address] [place], [place] [address]Dr. Wyatt Aldrich FREE T3on 05-27-2022 FREE T3 2.70 pg/mlL Normal 2.18-3.98 [facility] Comment on above: Performed By: #### L IPID, CMP, TSH, FT3 ####[facility] [address] [place], [place] [address]VuDr. Wyatt Aldrich GLYCOHEMOGLOBIN A1Con 2021 ADA RECOMMENDATION SEE BELOW Normal [facility] Comment on above: Result Comment: ADA RECOMMENDED LIMIT 4.0 - 6.0 ADA THERAPEUTIC TARGET < 7.0 ACTION SUGGESTED > 7.0 Performed By: #### A 1C #### [facility] [address] [address] [address] Wyatt Aldrich Glucose [Mass/Vol] 143 mg/dL Normal [facility] Comment on above: Performed By: #### A 1C #### [facility] [address] [address] [address] Wyatt Aldrich HbA1c (Bld) [Mass fraction] 6.6 % Critically high 4.5-6.2 [facility] Comment on above: Performed By: #### A 1C #### [facility] [address] [address] [address] Wyatt Aldrich LIPID PROFILEon 01-28-2022 CHOL-HDL RATIO NORM SEE BELOW Normal [facility] Comment on above: Result Comment: 3.3 - 4.4 LOW RISK 4.4 - 7.1 AVERAGE RISK 7.1 - 11.0 MODERATE RISK >11.0 HIGH RISK Performed By: #### L IPID, CMP, TSH, FT3 ####[facility] [address] [id number]. Wyatt Aldrich Cholesterol [Mass/Vol] 176 mg/dL Normal <=200 [facility] Comment on above: Performed By: #### L IPID, CMP, TSH, FT3 ####[facility] [address] [id number]. Wyatt Aldrich Cholesterol in HDL [Mass/Vol] 35 mg/dL Critically low 40-60 [facility] Comment on above: Performed By: #### L IPID, CMP, TSH, FT3 ####[facility] [address] [place], [place] [address]Ae. Wyatt Valdemar Cholesterol in LDL [Mass/Vol] 94.4 mg/dL Normal [facility] Comment on above: Performed By: #### L IPID, CMP, TSH, FT3 ####[facility] [address] [place], [place] [address]Ch. Wyatt Aldrich Cholesterol.total/Ch olesterol in HDL [Mass ratio] 5.0 {ratio} Normal [facility] Comment on above: Performed By: #### L IPID, CMP, TSH, FT3 ####[facility] [address] [id number]. Wyatt Aldrich HDL NORMAL > or = 60 mg/dl - LO W CARDIOVASCULAR RISK <40 mg/dl - HIGH CARDIOVASCULAR RISK Normal [facility] Comment on above: Performed By: #### L IPID, CMP, TSH, FT3 ####[facility] [address] [id number]. Wyatt Aldrich LDL CALC NORMAL SEE BELOW Normal The [facility] [place] Comment on above: Result Comment: <100 mg/dl OPTIMAL 100 - 129 mg/dl NEAR OR ABOVE OPTIMAL 130 - 159 mg/dl BORDERLINE HIGH 160 - 189 mg/dl HIGH >190 mg/dl VERY HIGH Performed By: #### L IPID, CMP, TSH, FT3 ####[facility] [address] [id number]. Wyatt Aldrich Triglyceride [Mass/Vol] 233 mg/dL Critically high <=150 [facility] Comment on above: Performed By: #### L IPID, CMP, TSH, FT3 ####[facility] [address] [id number]. Wyatt Aldrich VLDL CALC 46.6 mg/dL Normal [facility] Comment on above: Performed By: #### L IPID, CMP, TSH, FT3 ####[facility] [address] [id number]. Wyatt Aldrich OCC BLD IMMUNO SCREENon 05 OCCULT BLOOD Negative Normal NEGATIVE [facility] Comment on above: Performed By: #### O BSCRN #### [facility] [address] [address] [address] Wyatt Aldrich PROF 14(COMP METB)on 022 Albumin [Mass/Vol] 3.4 g/dL Normal 3.4-5.0 [facility] Comment on above: Performed By: #### L IPID, CMP, TSH, FT3 ####[facility] [address] [address]Dr. Wyatt Aldrich Albumin/Globulin [Mass ratio] 1.0 {ratio} Normal [facility] Comment on above: Performed By: #### L IPID, CMP, TSH, FT3 ####[facility] [address] [address]Dr. Wyatt Aldrich ALP [Catalytic activity/Vol] 65 U/L Normal 46-116 [facility] Comment on above: Performed By: #### L IPID, CMP, TSH, FT3 ####[facility] [address] [address]Dr. Wyatt Aldrich ALT [Catalytic activity/Vol] 45 U/L Normal 16-63 [facility] Comment on above: Performed By: #### L IPID, CMP, TSH, FT3 ####[facility] [address] [address]Dr. Wyatt Aldrich Anion gap [Moles/Vol] 9.7 mmol/L Normal [facility] Comment on above: Performed By: #### L IPID, CMP, TSH, FT3 ####[facility] [address] [address]Dr. Wyatt Aldrich AST [Catalytic activity/Vol] 20 U/L Normal 15-37 [facility] Comment on above: Performed By: #### L IPID, CMP, TSH, FT3 ####[facility] [address] [address]Dr. Wyatt Aldrich Bilirubin [Mass/Vol] 0.4 mg/dL Normal 0.2-1.0 [facility] Comment on above: Performed By: #### L IPID, CMP, TSH, FT3 ####[facility] [address] [address]Dr. Wyatt Aldrich Calcium [Mass/Vol] 8.5 mg/dL Normal 8.5-10.1 [facility] Comment on above: Performed By: #### L IPID, CMP, TSH, FT3 ####[facility] [address] [address]Dr. Wyatt Aldrich Chloride [Moles/Vol] 101 mmol/L Normal 98-107 [facility] Comment on above: Performed By: #### L IPID, CMP, TSH, FT3 ####[facility] [address] [address]Dr. Wyatt Aldrich CO2 [Moles/Vol] 33.3 mmol/L Critically high 21.0-32.0 [facility] Comment on above: Performed By: #### L IPID, CMP, TSH, FT3 ####[facility] [address] [address]Dr. Wyatt Aldrich Creatinine [Mass/Vol] 0.77 mg/dL Normal 0.70-1.30 [facility] Comment on above: Performed By: #### L IPID, CMP, TSH, FT3 ####[facility] [address] [place], [place] [address]Dr. Wyatt Valdemar EGFR-AF MALAYSIAN >60 Normal >=60 [facility] Comment on above: Performed By: #### L IPID, CMP, TSH, FT3 ####[facility] [address] [address]Dr. Wyatt Valdemar EGFR-NON AF MALAYSIAN >60 Normal >=60 [facility] Comment on above: Performed By: #### L IPID, CMP, TSH, FT3 ####[facility] [address] [address]Dr. Jossielalo Aldrich Globulin (S) [Mass/Vol] 3.3 g/dL Normal [facility] Comment on above: Performed By: #### L IPID, CMP, TSH, FT3 ####[facility] [address] [address]Dr. Wyatt Aldrich Glucose [Mass/Vol] 137 mg/dL Critically high 74-106 [facility] Comment on above: Performed By: #### L IPID, CMP, TSH, FT3 ####[facility] [address] [address]Dr. Wyatt Aldrich Potassium [Moles/Vol] 4.0 mmol/L Normal 3.5-5.1 [facility] Comment on above: Performed By: #### L IPID, CMP, TSH, FT3 ####[facility] [address] [address]Dr. Wyatt Aldrich Protein [Mass/Vol] 6.7 g/dL Normal 6.4-8.2 [facility] Comment on above: Performed By: #### L IPID, CMP, TSH, FT3 ####[facility] [address] [address]Dr. Wyatt Aldrich Sodium [Moles/Vol] 140 mmol/L Normal 136-145 [facility] Comment on above: Performed By: #### L IPID, CMP, TSH, FT3 ####[facility] [address] [address]Dr. Wyatt Aldrich Urea nitrogen [Mass/Vol] 13.0 mg/dL Normal 7.0-18.0 [facility] Comment on above: Performed By: #### L IPID, CMP, TSH, FT3 ####[facility] [address] [address]Dr. Wyatt Aldrich Urea nitrogen/Creatinine [Mass ratio] 16.9 mg/mg Normal [facility] Comment on above: Performed By: #### L IPID, CMP, TSH, FT3 ####[facility] [address] [address]Dr. Wytat Aldrich TSHon 01-28-2022 TSH 5.562 uIU/mL Critically high 0.358-3.740 [facility] Comment on above: Performed By: #### L IPID, CMP, TSH, FT3 ####[facility] [address] [address]Dr. Wyatt Aldrich TSH RANGE SEE BELOW Normal [facility] Comment on above: Result Comment: <0.3 4 UIU/ml HYPERTHYROID 0.34-5.60 UIU/ml EUTHYROID >5.60 UIU/ml HYPOTHYROID Performed By: #### L IPID, CMP, TSH, FT3 ####[facility] [address] [place], [place] [address]Jb. Wyatt Aldrich XR KUB 1 VIEWon 01-20-2022 [...] MANSOOR LIMA Date: 2022-01-20 14:12 Normal [facility] MRI LSPINE WO W CONon 2021 [...] CHIU Date: 2021-10-04 11:23 Normal [facility] XR LSPINE MIN 4 VIEWSon 09-05 XR [...] SAVAGE Date: 2021-09-27 11:31 Normal [facility] Vital Signs Date Time Vital Sign Value Performing Clinician Jessi chowdhury 10-29-2024 08:25-0500 Blood Pressure Location Michele RAYGOZA [facility] [place] 10-29-2024 08:25-0500 Diastolic blood pressure 72 mm[Hg] Michele RAYGOZA [facility] [place] 10-29-2024 08:25-0500 Heart rate 64 /min Michele RAYGOZA [facility] [place] 10-29-2024 08:25-0500 Respiratory rate 16 /min Michele NILL [facility] [place] 10-29-2024 08:25-0500 Systolic blood pressure 129 mm[Hg] Michele NILL [facility] [place] 09-10-2024 09:50-0500 Diastolic blood pressure 78 mm[Hg] Zena Orzech [facility] 09-10-2024 09:50-0500 Mean blood pressure 99 mm[Hg] Zena Orzech [facility] 09-10-2024 09:50-0500 Systolic blood pressure 140 mm[Hg] Zena Orzech [facility] 09-10-2024 09:27-0500 Blood Pressure Location Zena Orzech [facility] 09-10-2024 09:27-0500 Body temperature 98.6 [degF] Zena Orzech [facility] 09-10-2024 09:27-0500 Diastolic blood pressure 96 mm[Hg] Zena Orzech [facility] 09-10-2024 09:27-0500 Heart rate 69 /min Zena Orzech [facility] 09-10-2024 09:27-0500 Systolic blood pressure 190 mm[Hg] Zena Orzech [facility] 06-11-2024 08:19-0400 Blood Pressure Location Yovany AKHTAR [facility] 06-11-2024 08:19-0400 Diastolic blood pressure 111 mm[Hg] Yovany COOK [facility] 06-11-2024 08:19-0400 Heart rate 71 /min Yovany COOK [facility] 06-11-2024 08:19-0400 Systolic blood pressure 190 mm[Hg] Yovany COOK [facility] 06-06-2023 08:48-0400 Blood Pressure Location Yovany COOK [facility] 06-06-2023 08:48-0400 Diastolic blood pressure 66 mm[Hg] Yovany COOK [facility] 06-06-2023 08:48-0400 Heart rate 83 /min Yovany COOK [facility] 06-06-2023 08:48-0400 Systolic blood pressure 142 mm[Hg] Yovany COOK [facility] 06-17-2022 09:14-0400 Blood Pressure Location Yovany COOK [facility] 06-17-2022 09:14-0400 Diastolic blood pressure 96 mm[Hg] Yovany COOK [facility] 06-17-2022 09:14-0400 Heart rate 67 /min Yovany COOK [facility] 06-17-2022 09:14-0400 Systolic blood pressure 159 mm[Hg] Yovany COOK [facility] 06-10-2022 09:54-0400 Blood Pressure Location Yovany AKHTAR [facility] 06-10-2022 09:54-0400 Diastolic blood pressure 102 mm[Hg] Yovany COOK [facility] 06-10-2022 09:54-0400 Heart rate 68 /min Yovany COOK [facility] 06-10-2022 09:54-0400 Systolic blood pressure 166 mm[Hg] Yovany COOK [facility] 01-21-2022 08:44-0400 Blood Pressure Location Yovany [employer] [facility] [place] 01-21-2022 08:44-0400 Diastolic blood pressure 87 mm[Hg] Yovany AKHTAR [facility] [place] 01-21-2022 08:44-0400 Heart rate 72 /min Yovany AKHTAR [facility] [place] 01-21-2022 08:44-0400 Systolic blood pressure 140 mm[Hg] Yovany [employer] [facility] Encounter Date Encounter Type Care Provider Facility Start: 10-29-2024 End: 10-29-2024 ambulatory Michele RAYGOZA Facility: [facility] Start: 10-29-2024 End: 10-29-2024 Patient encounter procedure Michele RAYGOZA [facility] [place] Start: 10-18-2024 ambulatory Yovany AKHTAR Facility:[facility] Start: 09-10-2024 End: 09-10-2024 ambulatory Zena X Orzech Facility:[facility] Start: 09-10-2024 End: 09-10-2024 Patient encounter procedure Zena X Orzech [facility] [place] Start: 06-11-2024 End: 06-11-2024 ambulatory Yovany AKHTAR Facility:[facility] Start: 06-11-2024 End: 06-11-2024 Patient encounter procedure Yovany AKHTAR [facility] [place] Start: 06-10-2024 End: 06-10-2024 ambulatory [...] encounter procedure Yovany AKHTAR [facility] [place] Start: 06-17-2022 End: 06-17-2022 Patient encounter procedure Yovany AKHTAR [facility] [place] Start: 06-16-2022 End: 06-17-[address] NANCY FERNANDEZ Facility:[facility] Start: 06-10-2022 End: 06-10-2022 Patient encounter procedure Yovany AKHTAR [facility] [place] Start: 06-09-2022 End: 06-10-[address] NANCY FERNANDEZ Facility:[facility] Start: 05-29-2022 End: 05-29-[address] NANCY FERNANDEZ Facility:[facility] Start: 05-11-2022 End: 05-11-2022 Patient encounter procedure [facility]ovany [facility] Start: 02-03-2022 Encounter for genera l adult medical examination without abnormal findings DR NANCY FERNANDEZ [facility] Start: 01-28-2022 End: 01-29-[address] NANCY FERNANDEZ Facility:[facility] Start: 01-28-2022 End: 01-29-2022 Encounter for general adult medical examination without abnormal findings DR NANCY FERNANDEZ Facility:[facility] Start: 01-21-2022 End: 01-21-2022 Patient encounter procedure Yovany AKHTAR [facility] [place] Start: 01-20-2022 End: 01-21-[address] NANCY FERNANDEZ Facility:[facility] Start: 10-04-2021 End: 10-05-[address] NANCY FERNANDEZ Facility:[facility] Start: 09-29-2021 End: 09-29-2021 ambulatory MARILU UMRGUIA Facility:[facility] Start: 09-27-2021 End: 09-28-[address] NANCY FERNANDEZ Facility:[facility] Procedures Date Procedure Procedure Detail Performing Clinician Start: 05-26-2022 Extracorporeal shock wave lithotripsy of calculus of kidney Yovany AKHTAR Start: 01-28-[address] WES FERNANDEZ Comment on above: Performed By: #### P SAD ####[place] [id number]. Wyatt Aldrich Start: 08-13-2020 Extracorporeal shock wave [...] disectomy Yovany AKHTAR carlo anal abcess Yovany [employer] [facility] Repair of anal fistula Marvel ry GIOVANA Tonsillectomy Michele RAYGOZA Plan of Treatment Date Care Activity Detail Author Start: 06-10-2025 ambulatory Ambulatory Facility:[facility] Immunization Date Immunization Notes Care Provider Fa [facility] 04-19-2022 zoster vaccine recombinant Yovany AKHTAR [facility] 02-12-2022 pneumococcal 20-maría nt conjugate vaccine Yovany AKHTAR [facility] 02-03-2022 zoster vaccine recombinant Yovany AKHTAR [facility] 12-08-2020 SARS-CoV-2 (COVID-19 ) mRNA-3453 vaccine Yovany AKHTAR [facility] 11-17-2020 SARS-CoV-2 (COVID-19 ) mRNA BNT-162b2 vax Yovany AKHTAR [facility] 11-11-2020 SARS-CoV-2 (COVID-19 ) mRNA-1273 vaccine Yovany AKHTAR [facility] Payers Date Payer Category Payer Unknown 2023 Unknown [id number] 1965 Unknown [id number] 2.16.84 [id number] 1965 Unknown [id number] 2.16.84 0.1.021478.3.579.2.593 1964 Unknown [id number] 2.16.84 0.1.674889.3.579.2.593 1964 Unknown [id number] 2.16.84 0.1.878896.3.579.2.593 1964 Unknown [id number] 2.16.84 0.1.568462.3.579.2.593 1964 Unknown [id number] 2.16.84 0.1.231640.3.579.2.593 1964 Unknown [id number] 2.16.84 0.1.719654.3.579.2.593 1964 Unknown [id number] 2.16.84 0.1.756118.3.579.2.593 1964 Unknown [id number] 2.16.84 0.1.972981.3.579.2.1259 1964 Unknown [id number] 2.16.84 0.1.692101.3.579.2.1259 1964 Unknown [id number] 2.16.84 0.1.158155.3.579.2.1259 1964 Unknown [id number] 2.16. 840.1.648045.3.579.2.196 1964 Unknown [id number] 2.16. 840.1.819033.3.579.2.196 1964 Unknown [id number] 2.16. 840.1.231199.3.579.2.196 1964 Unknown [id number] 2.16.8 40.1.743047.3.579.2.727 1964 Unknown [id number] 2.16.8 40.1.066867.3.579.2.727 1964 Unknown [id number] 2.16.8 40.1.216393.3.579.2.727 1964 Unknown [id number] 2.16.8 40.1.137954.3.579.2.727 1959 Private Health Insurance [id number] Social History Date Type Detail Facility Start: 01-15-2021 End: 10-29-2024 Tobacco smoking status Ex-smoker (finding) [facility] Tobacco smoking status Never [facility] Sex Assigned At Male [facility] ChiScan Functional Status Date Assessment Result Facility 10-29-2024 Functional Status N/A [facility] [place] 09-10-2024 Functional Status N/A [facility] 06-11-2024 Functional Status N/A [facility] 06-06-2023 Functional Status N/A [facility] 06-17-2022 Functional Status N/A [facility] 06-10-2022 Functional Status N/A [facility] Clinical Notes 01-21-2022 to 10-29-2024 Laboratory Note [...] tab(s), Oral, Alexus (more content not included)... [facility] Comment on above: Result Comment: Elec tronically Signed By: JARET CANTOR, Michele Prince.br\Date and Time Signed: 10/29/24 08:56 EST 09-10-2024 Hospital Discharge instructions Patient Education 09/10/2024 09:53:34 Kidney Stones, Jxlw-hh-Dcnb Kidney Stones Kidney stones are rock-like masses [...] Follow these instructions at home: Medicines Take fjhz-dbo-vpdscaz and prescription medicines only as told by [...] provider. Document Revised: 04/14/2023 Document Reviewed: 04/14/2023 [employer] Patient Education 2023 [employer]. Follow Up Care 08/15/2024 10:52:33 With:GIOVANA CANTOR, Yovany Kwan, URL Address: [facility] [employer] [address] [place], [place] [id number]- When: Unknown [facility] 09-10-2024 Note Patient Education Urology Kidney [...] these instructions at home: Medicines ??? Take oedw-kuv-tbphgvo and prescription medicines only as told by [...] provider. Document Revised: 04/14/2023 Document Reviewed: 04/14/2023 [employer] Patient Education ? 2023 [employer]. [facility] 06-11-2024 Hospital Discharge instructions Patient Education [...] you may eat and drink normally. Take ltix-yrf-mwbbrmo and prescription medicines only as told by your health care provider. Let your health care provider know about any medicines that you are taking, including djgt-uje-ypaofek medicines, vitamins, herbs, and supplements. Choose a [...] provider. Document Revised: 02/25/2022 Document Reviewed: 02/25/2022 [employer] Patient Education 2023 [employer]. 06/11/2024 08:23:10 Dietary Guidelines to Help Prevent [...] include: ?8 oz (237 mL) of milk, ruynboh-ggmscqlgmdwp-ggpcs milk, and calcium-fortifiedfruit juice. Calcium-fortified means that [...] ?Spinach (cooked), rhubarb, beets, sweet potatoes, and Belizean chard. ?Peanuts. ?Potato chips, bruneian fries, and baked potatoes with skin on. ?Nuts and nut products. ?Chocolate. If you regularly take a diuretic medicine, make sure to eat at least 1 or 2 servings of fruits or vegetables that are high in potassium each day. These include: ?Avocado. ?Banana. ?Gustine, prune, carrot, or tomato juice. ?Baked potato. [...] magnesium, fish oil, or vitamin B6. Take qlil-miz-qjfopsc and prescription medicines only as told by [...] Casseroles. Pizza. Lasagna. Frozen meals. Potato chips. Slovak fries. The items listed above may not [...] provider. Document Revised: 12/01/2022 Document Reviewed: 12/01/2022 [employer] Patient Education 2023 [employer]. Follow Up Care 06/06/2023 09:30:15 With:GIOVANA CANTOR, Yovany Kwan, URL Address: [address] [place] [address]- When: Unknown [facility] 06-11-2024 Note Patient Education Nephrology Dietary [...] ? 8 oz (237 mL) of milk, donxbfv-zdpdixxjrsvo-bebpl milk, and calcium-fortifiedfruit juice. Calcium-fortified means that [...] Spinach (cooked), rhubarb, beets, sweet potatoes, and Belizean chard. ? Peanuts. ? Potato chips, bruneian fries, and baked potatoes with skin on. ? Nuts and nut products. ? Chocolate. ? If you regularly take a diuretic medicine, make sure to eat at least 1 or 2 servings of fruits or vegetables that are high in potassium each day. These include: ? Avocado. ? Banana. ? Gustine, prune, carrot, or tomato juice. ? Baked [...] fish oil, or vitamin B6. ? Take vjov-sva-ejsxvmv and prescription medicines only as told by your health care provider. These include suppleme (more content not included)... [facility] 06-06-2023 Hospital Discharge instructions Patient Education [...] include: ?8 oz (237 mL) of milk, exnyhat-zzbrjbfzcvhy-nfxcp milk, and calcium-fortifiedfruit juice. Calcium-fortified means that [...] ?Spinach (cooked), rhubarb, beets, sweet potatoes, and Belizean chard. ?Peanuts. ?Potato chips, bruneian fries, and baked potatoes with skin on. ?Nuts and nut products. ?Chocolate. If you regularly take a diuretic medicine, make sure to eat at least 1 or 2 servings of fruits or vegetables that are high in potassium each day. These include: ?Avocado. ?Banana. ?Gustine, prune, carrot, or tomato juice. ?Baked potato. [...] magnesium, fish oil, or vitamin B6. Take euve-gxm-bywhgrp and prescription medicines only as told by [...] Casseroles. Pizza. Lasagna. Frozen meals. Potato chips. Slovak fries. The items listed above may not [...] Document Reviewed: 05/02/2022 Elsevier Patient Education 2022 [employer]. Follow Up Care 01/21/2022 09:03:45 With:GIOVANA CANTOR, Yovany Kwan, ESHA Address: Mandeep CAPUTO [address] [place] [id number]- When:Within 1 Year(s) Comments:w/[place] [facility] 06-17-2022 Hospital Discharge instructions Patient Education [...] include: ?Spinach. ?Rhubarb. ?Beets. ?Potato chips and bruneian fries. ?Nuts. If you regularly take a diuretic medicine, make sure to eat at least 1 2 fruits or vegetables high in potassium each day. These include: ?Avocado. ?Banana. ?Gustine, prune, carrot, or tomato juice. ?Baked potato. [...] Casseroles. Pizza. Lasagna. Frozen meals. Potato chips. Slovak fries. Summary You can reduce your risk [...] 12/16/2011 Document Revised: 12/11/2019 Document Reviewed: 08/01/2017 [employer] Patient Education 2020 [employer] Follow Up Care 06/10/2022 10:24:22 With:GIOVANA CANTOR, Yovany P, URL Address: [address] [place] [id number]- When:6 months Comments:claire/ [place] [facility] 06-10-2022 Hospital Discharge instructions Patient [...] include: ?Spinach. ?Rhubarb. ?Beets. ?Potato chips and bruneian fries. ?Nuts. If you regularly take a diuretic medicine, make sure to eat at least 1 2 fruits or vegetables high in potassium each day. These include: ?Avocado. ?Banana. ?Gustine, prune, carrot, or tomato juice. ?Baked potato. [...] Casseroles. Pizza. Lasagna. Frozen meals. Potato chips. Slovak fries. Summary You can reduce your risk [...] 12/16/2011 Document Revised: 12/11/2019 Document Reviewed: 08/01/2017 [employer] Patient Education 2020 [employer]. Follow Up Care 05/30/2022 09:25:01 With:GIOVANA CANTOR, Yovany Kwan, URL Address: [address] [address]- When:2 weeks Comments:MICHAELB [facility] 01-21-2022 Hospital Discharge instructions Patient [...] urethra. Follow these instructions at home: Take dhog-esb-dvnmjqz and prescription medicines only as told by [...] 08/21/2006 Document Revised: 07/16/2019 Document Reviewed: 09/25/2017 [employer] Patient Education 2020 [employer]. Follow Up Care 01/15/2021 08:45:48 With:Yovany AKHTAR MD, URL Address: [address] [place] [address]- When:01/21/2023 Comments:with PSA and x-ray [facility] Evaluation + Plan note Future Appointments Appointment Date:02/24/2023 08:00:00 AM Scheduled Provider:Yovany AKHTAR MD Location:[facility] Appointment Type:URO Office Visit [facility] Evaluation + Plan note Future Appointments Appointment Date:02/24/2023 08:00:00 AM Scheduled Provider:Yovany AKHTAR MD Location:[facility] Appointment Type:URO Office Visit Future Scheduled TestsPT & PTT 04/20/22N 04/20/22Creatinine 04/20/22Electrolyte Panel 04/20/22CBC w/ Auto Diff 04/20/22 [facility] Evaluation + Plan note Future Appointments Appointment Date:06/17/2022 09:15:00 AM Scheduled Provider:Yovany AKHTAR MD Location:[facility] Appointment Type:URO Office Visit Appointment Date:02/24/2023 08:00:00 AM Scheduled Provider:Yovany AKHTAR MD Location:[facility] Appointment Type:URO Office Visit [facility] Evaluation + Plan note Future Appointments Appointment Date:06/11/2024 08:00:00 AM Scheduled Provider:Yovany AKHTAR MD Location:[facility] Appointment Type:URO Office Visit [facility] Evaluation + Plan note Future Appointments Appointment Date:06/10/2025 08:00:00 AM Scheduled Provider:Yovany AKHTAR MD Location:[facility] Appointment Type:URO Office Visit [facility] Hospital course Narrative No data available for this section [facility] Hospital Discharge instructions No data available for this section [facility] Progress note No data available for this section [facility] Summary Purpose Family History No [...] content) Personnel Name: Nancy Fernandez MD Address: [address] [place] [address] Personnel Name: Nancy Fernandez MD Address: Address: [address] [place] [address] Personnel Name: Nancy Fernandez MD Address: Address: [address] [place] [address] [place], [place] [address] Personnel Name: Nancy Fernandez MD Address: Address: [address] [place] [address] [place] [address]- Personnel Name: Nancy Fernandez MD Address: Address: [address] [place] [address] [place] [id number] Personnel Name: Nancy Fernandez MD Address: Address: [address] [place] [address] Personnel Name: Nancy Fernandez MD Address: Address: [address] [place] [address] (unrecognized sect ion and content) No Status Records FoundNo Status Records FoundNo Status Records FoundNo Status Records Found INFORMATION SOURCE (unrecogn ized section and content) DATE CREATED AUTHOR 07/07/2022 [facility] DATE CREATED AUTHOR AUTHOR'S ORGANIZ ATION 12/26/2023 [facility] DATE CREATED AUTHOR AUTHOR'S ORGANIZ ATION 06/19/2024 [facility] DATE CREATED AUTHOR AUTHOR'S ORGANIZ ATION 10/30/2024 [facility] FOR RECORDS PERTAINING TO PATIENTS WHO [...] BE BASED ON THE PRIMARY CLINICAL RECORDS. [facility] [employer] provides no warranty or guarantee of the accuracy or completeness of information in this document.
[2024-12-09 09:57] VITALS: BP 178/96; PULSE 76; TEMP 36.5; O2SAT 96
[2024-12-09 10:03] LABS: Glucometer 161 mg/dL (74-106)
[2024-12-09 10:42] VITALS: BP 158/117; PULSE 70; O2SAT 93
[2024-12-09] MEDS: DEXAMETHASONE SOD PHOS 10 MG/ML VIAL INJ (10:45)
[2024-12-09] MEDS: 0.9 % SODIUM CHLORIDE 10 ML SYRINGE - SALINE FLUSH INJ (10:45)
[2024-12-09] MEDS: BUPIVACAINE HCL 0.25% PF 25 MG/10 ML VIAL INJ (10:45)
[2024-12-09] MEDS: IOHEXOL 240 MG/ML - 10 ML VIAL INJ (10:45)
[2024-12-09] MEDS: LIDOCAINE HCL 2% 400 MG/20 ML MDV 3 ML INJ (10:46)
[2024-12-09 10:48] VITALS: BP 159/93; PULSE 78; O2SAT 96
--- NOTE | 2024-12-09 10:48 | P.ON_ITS ---
Date of procedure: 12/09/24 Pre-op diagnosis: Pain due to lumbar stenosis with neurogenic claudication Post-op diagnosis: same as pre-op Procedure: Procedure: Left L3-4, 4-5 transforaminal epidural steroid injection Medications: Bupivacaine 0.25% 2cc, lidocaine 2% 1cc, depomedrol 80mg The patient was seen and examined in the preoperative holding area.? Informed consent was obtained and placed on the chart.? Patient was brought to the medical procedure unit and placed in the prone position where a timeout was completed verifying the correct patient, procedure site, position, and planned special equipment using sterile aseptic technique.? Under direct fluoroscopic visualization a 25-gauge Quincke tipped spinal needle was advanced to the designated neural foramen where contrast dye was injected to show adequate spread.? The needle was inserted at level left L3-4. There was no evidence of vascular or adverse uptake.? Epidural spread was appreciated.? The above- mentioned injectate was then placed in a 1.5 mL aliquot preceded by negative aspiration.? The needle was removed. The needle was inserted and the procedure repeated at level left L4-5.? The surgery site was covered.? Patient was taken to the postprocedural recovery area and monitored for an appropriate length of time before found suitable for discharge in the accompaniment of a responsible adult. Anesthesia: Local Surgeon: Heather Turcios Pathology: none sent Condition: stable Disposition: no change
== END 2024-12-09 10:54 | disposition home or self-care (01) ==
LOC: SURGOUT 09:36
PROVIDERS: PCP Family Medicine; Visit Provider Anesthesiology
DX: M48.062 Spinal stenosis, lumbar region with neurogenic claudication (principal); M54.50 Low back pain, unspecified; E11.8 Type 2 diabetes mellitus with unspecified complications; Z79.84 Long term (current) use of oral hypoglycemic drugs
CPT/HCPCS: 36415; 64483; 64484; 82948; J0665; J1100; Q9966

== ENCOUNTER 2024-12-18 07:46 | Outpatient (OUT) | payer BC, SELFPAY ==
--- OUTSIDE RECORDS SUMMARY | 2024-12-18 07:50 | XMS_ITS | CCD ---
Author Organization [facility] Care Team Providers Care Rubber Compounder Name Role Phone Nancy Fernandez Primary Care [...] ZITIFFANY, DR SOLO Oliver Consulting Unavailable MARILU MURGIUA Consulting Unavailable VELVET, DR CRUZ Primary Care [...] Attending Unavailable NANCY FERNANDEZ Referring Unavailable MICHAEL IKM Attending Unavailable NANCY FERNANDEZ Referring Unavailable Yovany AKHTAR Attending Unavailable Orzech, Zena X Attending Unavailable Michele RAYGOZA Attending Unavailable Nancy Fernandez Referring Unavailable Yovany AKHTAR Attending Unavailable Karolina CANTOR, Heather Voss Attending Unavailable Karolina CANTOR, Heather Voss Attending Unavailable Karolina CANTOR, Heather Voss Attending Unavailable Karolina CANTOR, Heather Voss Attending Unavailable Allergies Allergy Classification Reported Allergen(s) Allergy Type Date of Onset Reaction(s) Facility (9 sources) Acetaminophen / HYDROcodone; Translations: [acetaminophen-hyd rocodone] Drug Allergy Hyperactive behavior (finding) [facility] Medications Current Medications Medication Drug [...] Start: 02-19-2019 take 2 tablets by mo [facility] once daily in the morning hydrochlorothiazide [...] Ordered Start: 05-08-2020 take 1 tablet by cindy twice daily metformin 500 mg ER Tab [...] Daily, # 30 cap(s), Refills(s) 2, Pharmacy: [facility] #[id number], 188, cm, 06/10/22 9:57:00 EDT, Height/Length Dosing, [...] 02-19-2019 Episodic Other aftercare (1 source) Other rodent exterminator (current) drug therapy; Translations: [OTH [facility] CURRENT DRUG THERAPY] Onset: 05-31-20 Episodic Other aftercare (1 source) termination 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; Translations: [[facility] CURRENT USE OF ASPIRIN] Onset: 05-31-20 Episodic [...] object(s), not elsewhere classified, initial encounter; Translations: [[facility] OTH SHRP OB NOT ELSW CLASS INI] [...] Ambulatory Visit Summary Ambulatory Visit Summary LIZ HERNANDEZ :1965 Visit Date:10/29/2024 Ambulatory Visit Instructions Your Diagnosis Positive fecal occult blood test Your Care Team Attending Physician - JARET CANTOR, Michele Oliver Primary Care Physician - Nancy Fernandez MD Referring Physician - Nancy Fernandez MD This [...] CANTOR, Yovany Kwan Where: [facility] [address] [place] [address]- Medications What How Much When Instructions Unchanged [...] for choosing us for your care. Normal [facility] [place] [facility] Reminderson 10-29-2024 Reminders Reminders From: Alexia Vega LPN To: [facility] - Clinical; Sent: 10/29/2024 09:31:53 EST Show up: 02/16/2029 07:00:00 EDT Subject: colonoscopy recall Due Date/Time: 03/04/2029 07:00:00 EDT Reminder/Recall Patient is due for screening colonoscopy 03/2029. Normal [facility] [place] [facility] Urology Office/Clinic Noteon 09-12-2024 Urology Office/Clinic Note [...] Urnls Dip Stick Auto w/o Microscopy POC 93279 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 Normal [facility] [place] [facility] Comment on above: Result Comment: Elec tronically Signed By: ELSIE Whipple APRN, Aurora X\.br\Date and Time Signed: 09/12/24 11:40 EST\.br\Electronically Co-Signed By: Cecilio Palacio\.br\Date and Time Co-Signed: 09/10/24 10:45 EST Ambulatory Visit Summaryon 0 09-10-2024 Ambulatory Visit Summary Ambulatory Visit Summary LIZ HERNANDEZ :1965 Visit Date:09/10/2024 Ambulatory Visit Instructions Your [...] CANTOR, Yovany Kwan Where: [facility] [address] [place] [address]- You Need to Schedule the Following Appointments Follow Up with GIOVANA CANTOR, ESHA [place] When: Where: [address] [place] [address] [address] [place] [address]- Medications What How Much When [...] Elevated PSA History of procedure Hx of alf use of blood thinners Hyperuricosuria Hypocitraturia Kidney [...] Ambulatory Visit Summary Ambulatory Visit Summary LIZ HERNANDEZ :1965 Visit Date:06/11/2024 Ambulatory Visit Instructions Your [...] [facility] [address] [place] [address]- You Need to Schedule the Following Appointments Follow Up with Yovany AKHTAR MD, URL When: Where: [address] [facility] [address] [place] [address]- Medications What How Much When [...] drink normally. (more content not included)... Normal [facility] [place] [facility] Urology Office/Clinic Noteon 06-11-2024 Urology Office/Clinic Note [...] was read as negative at the [facility] but to my review there [...] Contact Information Yovany AKHTAR MD, URL [address] [place] [address]- Additional Instructions: 1 yr with KUB and [...] with voice recognition artificial intelligence software, specifically [employer], [employer] and or [employer]. Substitutions may have occurred due to the inherent limitations of voice recognition and artificial intelligence software. Problem List/Past Medical History Ongoing BMI 40.0-44.9, adult BPH (benign prostatic hyperplasia) Chronic anticoagulation Dermatofibroma of left upper arm Diabetes mellitus type 2, noninsulin dependent Elevated PSA Hx of alf use of blood thinners Kidney stone Nocturia Osteoarthritis Historical GERD (gastroesophag (more content not included)... Normal [facility] Comment on above: Result Comment: Elec tronically [...] LIMA Date: 2022-06-16 18:56 Normal [facility] XR KUB 1 VIEWon 06-09-2022 [...] LIMA Date: 2022-06-09 17:41 Normal [facility] CBC AUTO DIFFon 05-29-2022 BASO # 0.1 103/ul Normal 0.0-0.1 [facility] Comment on above: Performed By: #### C BC ####[facility] [address] [place] [address]DrCullen Aldrich Basophils/100 WBC (Bld) 0.2 % Normal 0.2-2.0 [facility] Comment on above: Performed By: #### C BC ####[facility] [address] [address]DrCullen Aldrich EO # 0.0 103/ul Normal 0.0-0.7 [facility] Comment on above: Performed By: #### C BC ####[facility] [address] [place] [address]DrCullen Aldrich Eosinophils/100 WBC (Bld) 0.2 % Critically low 0.9-7.0 [facility] Comment on above: Performed By: #### C BC ####[facility] [address] [place] [address]Dr. Wyatt Aldrcih Erythrocyte distribution width (RBC) [Ratio] 12.3 % Normal 11.0-15.0 [facility] Comment on above: Performed By: #### C BC ####[facility] [address] [place], [place] [address]Dr. Wyatt Aldrich Hematocrit (Bld) [Volume fraction] 45.9 % Normal 42.0-54.0 [facility] Comment on above: Performed By: #### C BC ####[facility] [address] [place], [place] [address]Dr. Wyatt Aldrich Hemoglobin (Bld) [Mass/Vol] 15.2 g/dL Normal 14.0-18.0 [facility] Comment on above: Performed By: #### C BC ####[facility] [address] [place], [place] [address]Dr. Wyatt Aldrich IG # 0.09 10e3/ul Critically high 0.00-0.03 [facility] Comment on above: Performed By: #### C BC ####[facility] [address] [place], [place] [address]Dr. Wyatt Aldrich IG % 0.4 % Normal 0.0-0.5 [facility] Comment on above: Performed By: #### C BC ####[facility] [address] [place], [place] [address]Dr. Wyatt Aldrich LYMPH # 1.1 103/ul Critically low 1.2-3.8 [facility] Comment on above: Performed By: #### C BC ####[facility] [address] [place], [place] [address]Dr. Wyatt Aldrich Lymphocytes/100 WBC (Bld) 5.1 % Critically low 20.5-60.0 [facility] Comment on above: Performed By: #### C BC ####[facility] [address] [place], [place] [address]Dr. Jossielalo Aldrich MANUAL DIFF REQ NO Normal [facility] Comment on above: Performed By: #### C BC ####[facility] [address] [place] [address]Dr. Wyatt Valdemar MCH (RBC) [Entitic mass] 30.2 pg Normal 25.9-34.0 [facility] Comment on above: Performed By: #### C BC ####[facility] [address] [place], [place] [address]Dr. Wyatt Valdemar MCHC (RBC) [Mass/Vol] 33.1 g/dL Normal 29.9-35.2 [facility] Comment on above: Performed By: #### C BC ####[facility] [address] [place], [place] [address]Dr. Jossielalo Aldrich MCV (RBC) [Entitic vol] 91.3 fL Normal 80.0-94.0 [facility] Comment on above: Performed By: #### C BC ####[facility] [address] [place], [place] [address]Dr. Wyatt Valdemar MONO # 1.4 103/ul Critically high 0.3-0.8 [facility] Comment on above: Performed By: #### C BC ####[facility] [address] [place], [place] [address]Dr. Wyatt Aldrich Monocytes/100 WBC (Bld) 6.7 % Normal 1.7-12.0 [facility] Comment on above: Performed By: #### C BC ####[facility] [address] [place], [place] [address]Dr. Wyatt Aldrich NEUT # 18.5 103/ul Critically high 1.4-6.[address] [facility] Comment on above: Performed By: #### C BC ####[facility] [address] [place], [place] [address]Dr. Wyatt Aldrich Neutrophils/100 WBC (Bld) 87.4 % Critically high 43.0-75.0 [facility] Comment on above: Performed By: #### C BC ####[facility] [address] [place] [address]Db. Wyatt Aldrich Platelet mean volume (Bld) [Entitic vol] 9.3 fL Critically low 9.5-13.5 [facility] Comment on above: Performed By: #### C BC ####[facility] [address] [place], [place] [address]Bl. Wyatt Aldrich PLT 303 103/ul Normal 150-450 [facility] Comment on above: Performed By: #### C BC ####[facility] [address] [place], [place] [address]Gz. Wyatt Aldrich RBC 5.03 106/ul Normal 4.70-6.10 [facility] Comment on above: Performed By: #### C BC ####[facility] [address] [place], [place] [address]Bj. Wyatt Aldrich WBC 21.2 103/ul Critically high 4.0-11.[address] [facility] Comment on above: Performed By: #### C BC ####[facility] [address] [place] [id number]. Wyatt Aldrich CT ABD/PELVIS WO CONon 05-29 [...] excluded. Hepatic steatosis. Electronically authenticated by: BOO EMGAN Date: 2022-05-29 17:32 Normal [facility] ER URINE PROFILEon 2 Bilirubin Ql (U) Negative Normal NEGATIVE [facility] Comment on above: Performed By: #### U MICRO, ERUR #### [facility] [address] [address] [address] Wyatt Aldrich Clarity (U) CLEAR Normal CLEAR [facility] Comment on above: Performed By: #### U MICRO, ERUR #### [facility] [address] [address] [address] Wyatt Aldrich Color (U) LT. YELLOW Normal YELLOW [facility] Comment on above: Performed By: #### U MICRO, ERUR #### [facility] [address] [place] [address] Dr. Wyatt Aldrich ERUAHD A micrscopic examina tion will be performed if indicated. Normal [facility] Comment on above: Performed By: #### U MICRO, ERUR #### [facility] [address] [address] [address] Wyatt Aldrich Glucose Ql (U) Negative Normal NEGATIVE [facility] Comment on above: Performed By: #### U MICRO, ERUR #### [facility] [address] [address] [address] Wyatt Aldrich Hemoglobin Ql (U) TRACE-INTACT Abnormal NEGATIVE [facility] Comment on above: Performed By: #### U MICRO, ERUR #### [facility] [address] [address] [address] Wyatt Aldrich Ketones Ql (U) Negative Normal NEGATIVE [facility] Comment on above: Performed By: #### U MICRO, ERUR #### [facility] [address] [address] [address] Wyatt Aldrich LEUKOCYTES Negative Normal NEGATIVE [facility] Comment on above: Performed By: #### U MICRO, ERUR #### [facility] [address] [address] [address] Wyatt Aldrich Nitrite Ql (U) Negative Normal NEGATIVE [facility] Comment on above: Performed By: #### U MICRO, ERUR #### [facility] [address] [address] [address] Wyatt Aldrich pH (U) 7.0 [pH] Normal 5-9 [facility] Comment on above: Performed By: #### U MICRO, ERUR #### [facility] [address] [place] [address] Dr. Wyatt Aldrich SPEC GRAVITY 1.020 Normal 1.005-<=1.025 [facility] Comment on above: Performed By: #### U MICRO, ERUR #### [facility] [address] [place] [address] Dr. Wyatt Aldrich UA PROTEIN Negative Normal NEGATIVE/ TRACE [facility] Comment on above: Performed By: #### U MICRO, ERUR #### [facility] [address] [place] [address] Dr. Wyatt Aldrich UR MICRO IND INDICATED Normal [facility] Comment on above: Performed By: #### U MICRO, ERUR #### [facility] [address] [place] [address] Dr. Wyatt Aldrich Urobilinogen Qn (U) 0.2 {Sharon'U}/dL Normal 0.2 - 1. 0 [facility] Comment on above: Performed By: #### U MICRO, ERUR #### [facility] [address] [place] [address] Dr. Wyatt Aldrich PROF 14(COMP METB)on 022 Albumin [Mass/Vol] 3.9 g/dL Normal 3.4-5.0 [facility] Comment on above: Performed By: #### C MP #### [facility] [address] [place] [address] Dr. Wyatt Aldrich Albumin/Globulin [Mass ratio] 1.1 {ratio} Normal [facility] Comment on above: Performed By: #### C MP #### [facility] [address] [place] [address] Dr. Wyatt Aldrich ALP [Catalytic activity/Vol] 70 U/L Normal 46-116 [facility] Comment on above: Performed By: #### C MP #### [facility] [address] [address] [address] Wyatt Aldrich ALT [Catalytic activity/Vol] 38 U/L Normal 16-63 [facility] Comment on above: Performed By: #### C MP #### [facility] [address] [address] [address] Wyatt Aldrich Anion gap [Moles/Vol] 12.6 mmol/L Normal [facility] Comment on above: Performed By: #### C MP #### [facility] [address] [address] [address] Wyatt Aldrich AST [Catalytic activity/Vol] 20 U/L Normal 15-37 [facility] Comment on above: Performed By: #### C MP #### [facility] [address] [address] [address] Wyatt Aldrich Bilirubin [Mass/Vol] 0.6 mg/dL Normal 0.2-1.0 [facility] Comment on above: Performed By: #### C MP #### [facility] [address] [address] [address] Wyatt Aldrich Calcium [Mass/Vol] 8.7 mg/dL Normal 8.5-10.1 [facility] Comment on above: Performed By: #### C MP #### [facility] [address] [address] [address] Wyatt Aldrich Chloride [Moles/Vol] 95 mmol/L Critically low 98-107 [facility] Comment on above: Performed By: #### C MP #### [facility] [address] [address] [address] Wyatt Aldrich CO2 [Moles/Vol] 29.9 mmol/L Normal 21.0-32.[address] [facility] Comment on above: Performed By: #### C MP #### [facility] [address] [address] [address] Wyatt Aldrich Creatinine [Mass/Vol] 1.04 mg/dL Normal 0.70-1.30 [facility] Comment on above: Performed By: #### C MP #### [facility] [address] [address] [address] Wyatt Aldrich EGFR-AF [place]OREAN >60 Normal >=60 [facility] Comment on above: Performed By: #### C MP #### [facility] [address] [address] [address] Wyatt Aldrich EGFR-NON AF [place]ORE[place] >60 Normal >=60 [facility] Comment on above: Performed By: #### C MP #### [facility] [address] [address] [address] Wyatt Aldrich Globulin (S) [Mass/Vol] 3.4 g/dL Normal [facility] Comment on above: Performed By: #### C MP #### [facility] [address] [address] [address] Wyatt Aldrich Glucose [Mass/Vol] 148 mg/dL Critically high 74-106 T [facility] Comment on above: Performed By: #### C MP #### [facility] [address] [address] [address] Wyatt Aldrich Potassium [Moles/Vol] 4.5 mmol/L Normal 3.5-5.1 [facility] Comment on above: Performed By: #### C MP #### [facility] [address] [place] [address] Dr. Wyatt Aldrich Protein [Mass/Vol] 7.3 g/dL Normal 6.4-8.2 [facility] Comment on above: Performed By: #### C MP #### [facility] [address] [address] [address] Wyatt Aldrich Sodium [Moles/Vol] 133 mmol/L Critically low 136-145 [facility] Comment on above: Performed By: #### C MP #### [facility] [address] [address] [address] Wyatt Aldrich Urea nitrogen [Mass/Vol] 15.0 mg/dL Normal 7.0-18.0 [facility] Comment on above: Performed By: #### C MP #### [facility] [address] [address] [address] Wyatt Aldrich Urea nitrogen/Creatinine [Mass ratio] 14.4 mg/mg Normal [facility] Comment on above: Performed By: #### C MP #### [facility] [address] [place] [address] Dr. Wyatt Aldrich URINE MICROSCOPIC ONLYon BACTERIA NONE SEEN Normal NONE SEEN [facility] Comment on above: Performed By: #### U MICRO, ERUR #### [facility] [address] [place] [address] Dr. Wyatt Aldrich Bacteria identified Cx Nom (U) NOT INDICATED Normal [facility] Comment on above: Performed By: #### U MICRO, ERUR #### [facility] [address] [place] [address] Dr. Wyatt Aldrich CAST NONE SEEN Normal NONE SEEN [facility] Comment on above: Performed By: #### U MICRO, ERUR #### [facility] [address] [place] [address] Dr. Wyatt Aldrich Crystals LM Nom (Urine sed) NONE SEEN Normal NONE SEEN [facility] Comment on above: Performed By: #### U MICRO, ERUR #### [facility] [address] [place] [address] Dr. Wyatt Aldrich Epithelial cells LM Ql (Urine sed) NONE SEEN Normal NONE SEEN /RARE [facility] Comment on above: Performed By: #### U MICRO, ERUR #### [facility] [address] [place] [address] Dr. Wyatt Aldrich MUCOUS NONE SEEN Normal NONE SEEN [facility] Comment on above: Performed By: #### U MICRO, ERUR #### [facility] [address] [place] [address] Dr. Wyatt Aldrich RBC 2-5 Abnormal 0-2 [facility] Comment on above: Performed By: #### U MICRO, ERUR #### [facility] [address] [place] [address] Dr. Wyatt Aldrich WBC NONE SEEN Normal NONE SEEN [facility] Comment on above: Performed By: #### U MICRO, ERUR #### [facility] [address] [place] [address] Dr. Wyatt Aldrich T4 LABCORPon 01-29-2022 T4 [Mass/Vol] 9.1 ug/dL Normal 4.5-12.0 [facility] Comment on above: Performed By: #### T 4LC ####[facility] [address] [place] [address]DrCullen Aldrich CBC AUTO DIFFon 01-28-2022 BASO # 0.1 103/ul Normal 0.0-0.1 [facility] Comment on above: Performed By: #### C BC ####[facility] [address] [place] [address]DrCullen Aldrich Basophils/100 WBC (Bld) 0.6 % Normal 0.2-2.0 [facility] Comment on above: Performed By: #### C BC ####[facility] [address] [place], [place] [address]DrCullen Aldrich EO # 0.2 103/ul Normal 0.0-0.7 [facility] Comment on above: Performed By: #### C BC ####[facility] [address] [place] [address]DrCullen Aldrich Eosinophils/100 WBC (Bld) 2.4 % Normal 0.9-7.0 [facility] Comment on above: Performed By: #### C BC ####[facility] [address] [place], [place] [address]DrCullen Aldrich Erythrocyte distribution width (RBC) [Ratio] 12.5 % Normal 11.0-15.0 [facility] Comment on above: Performed By: #### C BC ####[facility] [address] [place] [address]DrCullen Aldrich Hematocrit (Bld) [Volume fraction] 43.5 % Normal 42.0-54.0 [facility] Comment on above: Performed By: #### C BC ####[facility] [address] [place] [address]DrCullen Aldrich Hemoglobin (Bld) [Mass/Vol] 14.4 g/dL Normal 14.0-18.0 [facility] Comment on above: Performed By: #### C BC ####[facility] [address] [place] [id number]. Wyatt Aldrich IG # 0.03 10e3/ul Normal 0.00-0.03 [facility] Comment on above: Performed By: #### C BC ####[facility] [address] [place] [id number]. Wyatt Aldrich IG % 0.4 % Normal 0.0-0.5 [facility] Comment on above: Performed By: #### C BC ####[facility] [address] [place] [address]Dr. Wyatt Aldrich LYMPH # 2.1 103/ul Normal 1.2-3.8 [facility] Comment on above: Performed By: #### C BC ####[facility] [address] [place] [address]Dr. Wyatt Aldrich Lymphocytes/100 WBC (Bld) 24.8 % Normal 20.5-60.0 [facility] Comment on above: Performed By: #### C BC ####[facility] [address] [place] [id number]. Wyatt Aldrich MANUAL DIFF REQ NO Normal [facility] Comment on above: Performed By: #### C BC ####[facility] [address] [place] [id number]. Wyatt Aldrich MCH (RBC) [Entitic mass] 30.6 pg Normal 25.9-34.0 [facility] Comment on above: Performed By: #### C BC ####[facility] [address] [place] [id number]. Wyatt Aldrich MCHC (RBC) [Mass/Vol] 33.1 g/dL Normal 29.9-35.2 [facility] Comment on above: Performed By: #### C BC ####[facility] [address] [place] [id number]. Wyatt Aldrich MCV (RBC) [Entitic vol] 92.6 fL Normal 80.0-94.0 [facility] Comment on above: Performed By: #### C BC ####[facility] [address] [place] [id number]. Wyatt Aldrich MONO # 0.6 103/ul Normal 0.3-0.8 [facility] Comment on above: Performed By: #### C BC ####[facility] [address] [place] [address]Dr. Wyatt Aldrich Monocytes/100 WBC (Bld) 7.7 % Normal 1.7-12.0 [facility] Comment on above: Performed By: #### C BC ####[facility] [address] [place] [id number]. Wyatt Aldrich NEUT # 5.3 103/ul Normal 1.4-6.5 [facility] Comment on above: Performed By: #### C BC ####[facility] [address] [place], [place] [address]Dr. Wyatt Aldrich Neutrophils/100 WBC (Bld) 64.1 % Normal 43.0-75.0 [facility] Comment on above: Performed By: #### C BC ####[facility] [address] [address]Dr. Wyatt Aldrich Platelet mean volume (Bld) [Entitic vol] 9.4 fL Critically low 9.5-13.5 [facility] Comment on above: Performed By: #### C BC ####[facility] [address] [place] [id number]. Wyatt Aldrich PLT 280 103/ul Normal 150-450 [facility] Comment on above: Performed By: #### C BC ####[facility] [address] [place], [place] [id number]. Wyatt Aldrich RBC 4.70 106/ul Normal 4.70-6.10 [facility] Comment on above: Performed By: #### C BC ####[facility] [address] [place], [place] [id number]. Wyatt Aldrich WBC 8.3 103/ul Normal 4.0-11.0 [facility] Comment on above: Performed By: #### C BC ####[facility] [address] [place], [place] [address]VvDr. Wyatt Adlrich FREE T3on 01-28-2022 FREE T3 2.70 pg/mlL Normal 2.18-3.98 [facility] Comment on above: Performed By: #### L IPID, CMP, TSH, FT3 ####[facility] [address] [place], [place] [address]JmCullen Aldrich GLYCOHEMOGLOBIN A1Con 2021 ADA RECOMMENDATION SEE BELOW Normal [facility] Comment on above: Result Comment: ADA RECOMMENDED LIMIT 4.0 - 6.0 ADA THERAPEUTIC TARGET < 7.0 ACTION SUGGESTED > 7.0 Performed By: #### A 1C #### [facility] [address] [address] [address] Wyatt Aldrich Glucose [Mass/Vol] 143 mg/dL Normal [facility] Comment on above: Performed By: #### A 1C #### [facility] [address] [address] [address] Wyatt Aldrich HbA1c (Bld) [Mass fraction] 6.6 % Critically high 4.5-6.2 [facility] Comment on above: Performed By: #### A 1C #### [facility] [address] [address] [address] Wyatt Aldrich LIPID PROFILEon 01-28-2022 CHOL-HDL RATIO NORM SEE BELOW Normal [facility] Comment on above: Result Comment: 3.3 - 4.4 LOW RISK 4.4 - 7.1 AVERAGE RISK 7.1 - 11.0 MODERATE RISK >11.0 HIGH RISK Performed By: #### L IPID, CMP, TSH, FT3 ####[facility] [address] [place], [place] [address]GxDr. Wyatt Aldrich Cholesterol [Mass/Vol] 176 mg/dL Normal <=200 [facility] Comment on above: Performed By: #### L IPID, CMP, TSH, FT3 ####[facility] [address] [id number]. Wyatt Aldrich Cholesterol in HDL [Mass/Vol] 35 mg/dL Critically low 40-60 [facility] Comment on above: Performed By: #### L IPID, CMP, TSH, FT3 ####[facility] [address] [address]Dr. Wyatt Aldrich Cholesterol in LDL [Mass/Vol] 94.4 mg/dL Normal [facility] Comment on above: Performed By: #### L IPID, CMP, TSH, FT3 ####[facility] [address] [address]Dr. Wyatt Aldrich Cholesterol.total/Ch olesterol in HDL [Mass ratio] 5.0 {ratio} Normal [facility] Comment on above: Performed By: #### L IPID, CMP, TSH, FT3 ####[facility] [address] [address]Dr. Wyatt Aldrich HDL NORMAL > or = 60 mg/dl - LO W CARDIOVASCULAR RISK <40 mg/dl - HIGH CARDIOVASCULAR RISK Normal [facility] Comment on above: Performed By: #### L IPID, CMP, TSH, FT3 ####[facility] [address] [address]Dr. Wyatt Aldrich LDL CALC NORMAL SEE BELOW Normal [facility] Comment on above: Result Comment: <100 mg/dl OPTIMAL 100 - 129 mg/dl NEAR OR ABOVE OPTIMAL 130 - 159 mg/dl BORDERLINE HIGH 160 - 189 mg/dl HIGH >190 mg/dl VERY HIGH Performed By: #### L IPID, CMP, TSH, FT3 ####[facility] [address] [address]Dr. Wyatt Aldrich Triglyceride [Mass/Vol] 233 mg/dL Critically high <=150 [facility] Comment on above: Performed By: #### L IPID, CMP, TSH, FT3 ####[facility] [address] [address]Dr. Wyatt Aldrich VLDL CALC 46.6 mg/dL Normal [facility] Comment on above: Performed By: #### L IPID, CMP, TSH, FT3 ####[facility] [address] [address]Dr. Wyatt Aldrich OCC BLD IMMUNO SCREENon 05-2 7-2022 OCCULT BLOOD Negative Normal NEGATIVE [facility] Comment on above: Performed By: #### O BSCRN #### [facility] [address] [address] [address] Wyatt Aldrich PROF 14(COMP METB)on 022 Albumin [Mass/Vol] 3.4 g/dL Normal 3.4-5.0 [facility] Comment on above: Performed By: #### L IPID, CMP, TSH, FT3 ####[facility] [address] [address]Dr. Wyatt Aldrich Albumin/Globulin [Mass ratio] 1.0 {ratio} Normal [facility] Comment on above: Performed By: #### L IPID, CMP, TSH, FT3 ####[facility] [address] [address]Dr. Wyatt Aldrich ALP [Catalytic activity/Vol] 65 U/L Normal 46-116 [facility] Comment on above: Performed By: #### L IPID, CMP, TSH, FT3 ####[facility] [address] [address]Dr. Wyatt Aldrich ALT [Catalytic activity/Vol] 45 U/L Normal 16-63 [facility] Comment on above: Performed By: #### L IPID, CMP, TSH, FT3 ####[facility] [address] [id number]. Wyatt Aldrich Anion gap [Moles/Vol] 9.7 mmol/L Normal [facility] Comment on above: Performed By: #### L IPID, CMP, TSH, FT3 ####[facility] [address] [address]Dr. Wyatt Aldrich AST [Catalytic activity/Vol] 20 U/L Normal 15-37 [facility] Comment on above: Performed By: #### L IPID, CMP, TSH, FT3 ####[facility] [address] [address]Dr. Wyatt Aldrich Bilirubin [Mass/Vol] 0.4 mg/dL Normal 0.2-1.0 [facility] Comment on above: Performed By: #### L IPID, CMP, TSH, FT3 ####[facility] [address] [address]Dr. Wyatt Aldrich Calcium [Mass/Vol] 8.5 mg/dL Normal 8.5-10.1 [facility] Comment on above: Performed By: #### L IPID, CMP, TSH, FT3 ####[facility] [address] [place] [address]Dr. Wyatt Aldrich Chloride [Moles/Vol] 101 mmol/L Normal 98-107 [facility] Comment on above: Performed By: #### L IPID, CMP, TSH, FT3 ####[facility] [address] [address]Dr. Wyatt Aldrich CO2 [Moles/Vol] 33.3 mmol/L Critically high 21.0-32.0 [facility] Comment on above: Performed By: #### L IPID, CMP, TSH, FT3 ####[facility] [address] [address]Dr. Wyatt Aldrich Creatinine [Mass/Vol] 0.77 mg/dL Normal 0.70-1.30 [facility] Comment on above: Performed By: #### L IPID, CMP, TSH, FT3 ####[facility] [address] [address]Dr. Wyatt Aldrich EGFR-AF NORTH KOREAN >60 Normal >=[address] [facility] Comment on above: Performed By: #### L IPID, CMP, TSH, FT3 ####[facility] [address] [place] [address]Dr. Wyatt Aldrich EGFR-NON AF [place]TH KOREAN >60 Normal >=60 [facility] Comment on above: Performed By: #### L IPID, CMP, TSH, FT3 ####[facility] [address] [place] [address]Dr. Wyatt Aldrich Globulin (S) [Mass/Vol] 3.3 g/dL Normal [facility] Comment on above: Performed By: #### L IPID, CMP, TSH, FT3 ####[facility] [address] [address]Dr. Wyatt Aldrich Glucose [Mass/Vol] 137 mg/dL Critically high 74-106 [facility] Comment on above: Performed By: #### L IPID, CMP, TSH, FT3 ####[facility] [address] [place] [address]Dr. Wyatt Aldrich Potassium [Moles/Vol] 4.0 mmol/L Normal 3.5-5.1 [facility] Comment on above: Performed By: #### L IPID, CMP, TSH, FT3 ####[facility] [address] [place] [address]Dr. Wyatt Aldrich Protein [Mass/Vol] 6.7 g/dL Normal 6.4-8.2 [facility] Comment on above: Performed By: #### L IPID, CMP, TSH, FT3 ####[facility] [address] [place] [place] [address]Dr. Wyatt Aldrich Sodium [Moles/Vol] 140 mmol/L Normal 136-145 [facility] Comment on above: Performed By: #### L IPID, CMP, TSH, FT3 ####[facility] [address] [address]Dr. Wyatt Aldrich Urea nitrogen [Mass/Vol] 13.0 mg/dL Normal 7.0-18.0 [facility] Comment on above: Performed By: #### L IPID, CMP, TSH, FT3 ####[facility] [address] [address]Dr. Wyatt Aldrich Urea nitrogen/Creatinine [Mass ratio] 16.9 mg/mg Normal [facility] Comment on above: Performed By: #### L IPID, CMP, TSH, FT3 ####[facility] [address] [address]Dr. Wyatt Aldrich TSHon 01-28-2022 TSH 5.562 uIU/mL Critically high 0.358-3.740 [facility] Comment on above: Performed By: #### L IPID, CMP, TSH, FT3 ####[facility] [address] [place], [place] [address]Nq. Wyatt Aldrich TSH RANGE SEE BELOW Normal [facility] Comment on above: Result Comment: <0.3 4 UIU/ml HYPERTHYROID 0.34-5.60 UIU/ml EUTHYROID >5.60 UIU/ml HYPOTHYROID Performed By: #### L IPID, CMP, TSH, FT3 ####[facility] [address] [place], [place] [address]Bq. Wyatt Aldrich XR KUB 1 VIEWon 01-20-2022 [...] LIMA Date: 2022-01-20 14:12 Normal [facility] MRI LSPINE WO W CONon [...] by: TANISHA CHIU Date: 2021-10-04 11:23 Normal [facility] XR LSPINE MIN 4 VIEWSon 09-05 [...] by: SOLO SAVAGE Date: 2021-09-27 11:31 Normal [facility] Vital Signs Date Time Vital Sign Value Performing Clinician Jessi chowdhury 10-29-2024 08:25-0500 Blood Pressure Location Michele RAYGOZA [facility] [place] 10-29-2024 08:25-0500 Diastolic blood pressure 72 mm[Hg] Michele RAYGOZA [facility] [place] 10-29-2024 08:25-0500 Heart rate 64 /min Michele RAYGOZA [facility] [place] 10-29-2024 08:25-0500 Respiratory rate 16 /min Michele NILL [facility] 10-29-2024 08:25-0500 Systolic blood pressure 129 mm[Hg] Michele NILL [facility] 09-10-2024 09:50-0500 Diastolic blood pressure 78 mm[Hg] [...] Hospital 06-11-2024 08:19-0400 Blood Pressure Location Yovany COOK [facility] 06-11-2024 08:19-0400 Diastolic blood pressure 111 mm[Hg] Yovany COOK [facility] 01-21-2022 08:44-0400 Diastolic blood pressure 87 mm[Hg] Yovany AKHTAR [facility] 01-21-2022 08:44-0400 Heart rate 72 /min Yovany AKHTAR [facility] 01-21-2022 08:44-0400 Systolic blood pressure 140 mm[Hg] Yovany AKHTAR [facility] Encounters Encounter Date Encounter Type Care Provider Facility Start: 12-09-2024 End: 12-09-2024 ambulatory Heather Turcios MD Facility:[facility] Start: 10-29-2024 End: 10-29-2024 ambulatory Michele RAYGOZA Facility: [facility] Start: 10-29-2024 End: 10-29-2024 Patient encounter procedure Michele RAYGOZA [facility] [place] Start: 10-18-2024 ambulatory Yovany AKHTAR Facility: [facility] Start: 09-10-2024 End: 09-10-2024 ambulatory Zena X Orzech Facility:[facility] Start: 09-10-2024 End: 09-10-2024 Patient encounter procedure Zena X Orzech [facility] [place] Start: 06-11-2024 End: 06-11-2024 ambulatory Yovany AKHTAR Facility: [facility] Start: 06-11-2024 End: 06-11-2024 Patient encounter procedure Yovany AKHTAR [facility] Start: 06-10-2024 End: 06-10-2024 ambulatory Messius Chiquitaytautnoelle Paulsonitis Facility:[facility] Start: 02-19-2024 End: 02-19-2024 ambulatory Andtedus Bipin Paulsonitis Facility:[facility] Start: 02-05-2024 End: 02-05-2024 ambulatory Andtedus Bipin Paulson[facility] Facility:[facility] Start: 12-25-2023 End: 12-25-2023 ambulatory MICHAEL KIM Not Available Start: 12-21-2023 End: 12-21-2023 ambulatory BALTA OTTO Not Available Start: 12-19-2023 End: 12-19-2023 ambulatory MICHAEL KIM Not Available Start: 06-06-2023 End: 06-06-2023 Patient encounter procedure Yovany AKHTAR [facility] Start: 06-17-2022 End: 06-17-2022 Patient encounter procedure Yovany AKHTAR [facility] Start: 06-16-2022 End: 06-17-[address] NANCY FERNANDEZ Facility:[facility] Start: 06-10-2022 End: 06-10-2022 Patient encounter procedure Yovany AKHTAR [facility] Start: 06-09-2022 End: 06-10-[address] NANCY FERNANDEZ Facility:[facility] Start: 05-29-2022 End: 05-29-[address] NANCY FERNANDEZ Facility:[facility] Start: 05-11-2022 End: 05-11-2022 Patient encounter procedure Yovany AKHTAR [facility] Start: 02-03-2022 Encounter for genera l adult medical examination without abnormal findings DR NANCY FERNANDEZ [facility] Start: 01-28-2022 End: 01-29-[address] NANCY FERNANDEZ Facility:[facility] Start: 01-28-2022 End: 01-29-2022 Encounter for general adult medical examination without abnormal findings DR NANCY FERNANDEZ Facility:[facility] Start: 01-21-2022 End: 01-21-2022 Patient encounter procedure Yovany AKHTAR [facility] Start: 01-20-2022 End: 01-21-[address] NANCY FERNANDEZ Facility:[facility] Start: 10-04-2021 End: 10-05-[address] NANCY FERNANDEZ Facility:[facility] Start: 09-29-2021 End: 09-29-2021 ambulatory MARILU MURGUIA Facility:[facility] Start: 09-27-2021 End: 09-28-[address] NANCY FERNANDEZ Facility:[facility] Procedures Date Procedure Procedure Detail Performing Clinician Start: 05-26-2022 Extracorporeal shock wave lithotripsy of calculus of kidney oYvany AKHTAR Start: 01-28-[address] WES FERNANDEZ Comment on above: Performed By: #### P SAD ####[address] [place] [address]DrCullen Aldrich Start: 08-13-2020 Extracorporeal shock wave lithotripsy of calculus of kidney Yovany AKHTAR Start: 03-27-2019 Colonoscopy Michele NI LL Start: 02-02-2014 Colonoscopy Michele NI LL Start: 09-04-2004 Colonoscopy Michele NI LL Cholecystectomy Michele NILL Dental surgical procedure Gr poncho AKHTAR Drainage of perirect al abscess Michele MAXWELLL Entire gallbladder ( body structure) Yovany AKHTAR History of tonsillectomy Mitul viviana AKHTAR Incision of anal fistula Fuad hajimmy RAYGOZA Kidney stone (disorder) Gee AKHTAR l4 l5 disectomy Yovany AKHTAR carlo anal abcess Yovany MARISOL Dowling Repair of anal fistula Marvel escobar GIOVANA Tonsillectomy Michele RAYGOZA Plan of Treatment Date Care Activity Detail Author Start: 06-10-2025 ambulatory Ambulatory Facility:[facility] [place] [place] Immunizations Immunization Date Immunization Notes Care Provider [...] 11-11-2020 SARS-CoV-2 (COVID-19 ) mRNA-1273 vaccine Yovany MJJ Sales [facility] Payers Date Payer Category Payer Unknown 2023 Unknown [id number] 1965 Unknown [id number] 2.16.84 [id number] 1965 Unknown [id number] 2.16.84 [id number] 1964 Unknown [id number] 2.16.84 0.1.469089.3.579.2.593 1964 Unknown [id number] 2.16.84 0.1.779332.3.579.2.593 1964 Unknown [id number] 2.16.84 0.1.871828.3.579.2.593 1964 Unknown [id number] 2.16.84 0.1.417078.3.579.2.593 1964 Unknown [id number] 2.16.84 0.1.695538.3.579.2.593 1964 Unknown [id number] 2.16.84 0.1.592072.3.579.2.593 1964 Unknown [id number] 2.16.84 0.1.228676.3.579.2.1259 1964 Unknown [id number] 2.16.84 0.1.490828.3.579.2.1259 1964 Unknown [id number] 2.16.84 0.1.771649.3.579.2.1259 1964 Unknown [id number] 2.16.8 40.1.596858.3.579.2.727 1964 Unknown [id number] 2.16.8 40.1.491384.3.579.2.727 1964 Unknown [id number] 2.16.8 40.1.397933.3.579.2.727 1964 Unknown [id number] 2.16.8 40.1.717264.3.579.2.727 1964 Unknown [id number] 2.16. 840.1.206403.3.579.2.196 1964 Unknown [id number] 2.16. 840.1.209560.3.579.2.196 1964 Unknown [id number] 2.16. 840.1.670692.3.579.2.196 1964 Unknown [id number] 2.16. 840.1.863479.3.579.2.196 1959 Private Health Insurance [id number] Social History Date Type Detail Facility Start: 01-15-2021 End: 10-29-2024 Tobacco smoking status Ex-smoker (finding) [facility] Tobacco smoking status Never [facility] Sex Assigned At Male [facility] [employer] [employer] Functional Status Date Assessment Result Facility 10-29-2024 Functional Status N/A [facility] [place] 09-10-2024 Functional Status N/A [facility] 06-11-2024 Functional Status N/A [facility] 06-06-2023 Functional Status N/A [facility] 06-17-2022 Functional Status N/A [facility] 06-10-2022 Functional Status N/A [facility] Clinical Notes 01-21-2022 to 10-29-2024 Laboratory Note [...] tab(s), Oral, Alexus (more content not included)... [facility] Comment on above: Result Comment: Elec tronically Signed By: JARET CANTOR, Michele Prince.fabián\Date and Time Signed: 10/29/24 08:56 EST 09-10-2024 Hospital Discharge instructions Patient Education 09/10/2024 09:53:34 Kidney Stones, Ngmc-bk-Yrwr Kidney Stones Kidney stones are rock-like masses [...] Follow these instructions at home: Medicines Take ockv-dib-leuonwv and prescription medicines only as told by [...] provider. Document Revised: 04/14/2023 Document Reviewed: 04/14/2023 [employer] Patient Education 2023 [employer]. Follow Up Care 08/15/2024 10:52:33 With:GIOVANA CANTOR, Yovany Kwan, URL Address: [address] [place] [address] [place], [place] [id number]- When: Unknown [facility] 09-10-2024 Note Patient Education Urology Kidney Stones [...] these instructions at home: Medicines ??? Take mkwt-lbj-vzfrjna and prescription medicines only as told by [...] provider. Document Revised: 04/14/2023 Document Reviewed: 04/14/2023 [employer] Patient Education ? 2023 [employer] [facility] 06-11-2024 Hospital Discharge instructions Patient Education 06/11/2024 [...] you may eat and drink normally. Take oeka-dys-lypmzxf and prescription medicines only as told by your health care provider. Let your health care provider know about any medicines that you are taking, including jsie-nfm-fbtsync medicines, vitamins, herbs, and supplements. Choose a [...] provider. Document Revised: 02/25/2022 Document Reviewed: 02/25/2022 [employer] Patient Education 2023 [employer]. 06/11/2024 08:23:10 Dietary Guidelines to Help Prevent [...] include: ?8 oz (237 mL) of milk, ebaclkh-dzitprdesiin-zoiab milk, and calcium-fortifiedfruit juice. Calcium-fortified means that [...] ?Spinach (cooked), rhubarb, beets, sweet potatoes, and Ivorian chard. ?Peanuts. ?Potato chips, vatican citizen fries, and baked potatoes with skin on. ?Nuts and nut products. ?Chocolate. If you regularly take a diuretic medicine, make sure to eat at least 1 or 2 servings of fruits or vegetables that are high in potassium each day. These include: ?Avocado. ?Banana. ?[place], prune, carrot, or tomato juice. ?Baked potato. [...] magnesium, fish oil, or vitamin B6. Take ahrm-vdm-pqdfzjr and prescription medicines only as told by [...] Casseroles. Pizza. Lasagna. Frozen meals. Potato chips. Lithuanian fries. The items listed above may not [...] provider. Document Revised: 12/01/2022 Document Reviewed: 12/01/2022 [employer] Patient Education 2023 [employer]. Follow Up Care 06/06/2023 09:30:15 With:GIOVANA CANTOR, Yovany Kwan, URL Address: [address] [place] [address] When: Unknown [facility] 06-11-2024 Note Patient Education Nephrology [...] ? 8 oz (237 mL) of milk, vlnwhqb-vgndfkyispdz-fnggk milk, and calcium-fortifiedfruit juice. Calcium-fortified means that [...] Spinach (cooked), rhubarb, beets, sweet potatoes, and Ivorian chard. ? Peanuts. ? Potato chips, vatican citizen fries, and baked potatoes with skin on. ? Nuts and nut products. ? Chocolate. ? If you regularly take a diuretic medicine, make sure to eat at least 1 or 2 servings of fruits or vegetables that are high in potassium each day. These include: ? Avocado. ? Banana. ? [place], prune, carrot, or tomato juice. ? Baked [...] fish oil, or vitamin B6. ? Take ulmr-ahy-qgttcia and prescription medicines only as told by your health care provider. These include suppleme (more content not included)... [facility] 06-06-2023 Hospital Discharge instructions Patient Education 06/06/2023 [...] include: ?8 oz (237 mL) of milk, peiswfe-wcjpuzcnprzm-yzvfp milk, and calcium-fortifiedfruit juice. Calcium-fortified means that [...] ?Spinach (cooked), rhubarb, beets, sweet potatoes, and Ivorian chard. ?Peanuts. ?Potato chips, vatican citizen fries, and baked potatoes with skin on. ?Nuts and nut products. ?Chocolate. If you regularly take a diuretic medicine, make sure to eat at least 1 or 2 servings of fruits or vegetables that are high in potassium each day. These include: ?Avocado. ?Banana. ?[place], prune, carrot, or tomato juice. ?Baked potato. [...] magnesium, fish oil, or vitamin B6. Take uloc-bxc-zyberwq and prescription medicines only as told by [...] Casseroles. Pizza. Lasagna. Frozen meals. Potato chips. Lithuanian fries. The items listed above may not [...] provider. Document Revised: 05/02/2022 Document Reviewed: 05/02/2022 [employer] Patient Education 2022 [employer]. Follow Up Care 01/21/2022 09:03:45 With:GIOVANA CANTOR, Yovany Kwan, URL Address: [facility] Prasad [address] [place], [place] [id number]- When:Within 1 Year(s) Comments:claire/MT [facility] 06-17-2022 Hospital Discharge instructions Patient Education 06/17/2022 [...] include: ?Spinach. ?Rhubarb. ?Beets. ?Potato chips and vatican citizen fries. ?Nuts. If you regularly take a diuretic medicine, make sure to eat at least 1 2 fruits or vegetables high in potassium each day. These include: ?Avocado. ?Banana. ?[place], prune, carrot, or tomato juice. ?Baked potato. [...] Casseroles. Pizza. Lasagna. Frozen meals. Potato chips. Lithuanian fries. Summary You can reduce your risk [...] 12/16/2011 Document Revised: 12/11/2019 Document Reviewed: 08/01/2017 [employer] Patient Education 2020 [employer]. Follow Up Care 06/10/2022 10:24:22 With:GIOVANA CANTOR, Yovany Kwan, URL Address: [address] [place] [address] [place], [place] [id number]- When:6 months Comments:claire/ [place] [facility] 06-10-2022 Hospital Discharge instructions Patient [...] include: ?Spinach. ?Rhubarb. ?Beets. ?Potato chips and vatican citizen fries. ?Nuts. If you regularly take a diuretic medicine, make sure to eat at least 1 2 fruits or vegetables high in potassium each day. These include: ?Avocado. ?Banana. ?[place], prune, carrot, or tomato juice. ?Baked potato. [...] Casseroles. Pizza. Lasagna. Frozen meals. Potato chips. Lithuanian fries. Summary You can reduce your risk [...] 12/16/2011 Document Revised: 12/11/2019 Document Reviewed: 08/01/2017 [employer] Patient Education 2020 [employer]. Follow Up Care 05/30/2022 09:25:01 With:GIOVANA CANTOR, Yovany Kwan, URL Address: [address] [place] [address]- When:2 weeks Comments:MT [facility] 01-21-2022 Hospital Discharge instructions Patient [...] urethra. Follow these instructions at home: Take pawp-vjf-brkdvzf and prescription medicines only as told by [...] 08/21/2006 Document Revised: 07/16/2019 Document Reviewed: 09/25/2017 [employer] Patient Education 2020 [employer]. Follow Up Care 01/15/2021 08:45:48 With:Yovany AKHTAR MD, URL Address: [facility] [address] [address]- When:01/21/2023 Comments:with PSA and x-ray [facility] Evaluation + Plan note Future Appointments Appointment Date:02/24/2023 08:00:00 AM Scheduled Provider:Yovany AKHTAR MD Location:[facility] Appointment Type:URO Office Visit [facility] Evaluation + Plan note Future Appointments Appointment Date:02/24/2023 08:00:00 AM Scheduled Provider:Yovany AKHTAR MD Location:[facility] Appointment Type:URO Office Visit Future Scheduled TestsPT & PTT 04/20/22BUN 04/20/22Creatinine 04/20/22Electrolyte Panel 04/20/22CBC w/ Auto Diff 04/20/22 [facility] Evaluation + Plan note Future Appointments Appointment Date:06/17/2022 09:15:00 AM Scheduled Provider:Yovany AKHTAR MD Location:[facility] [place] Appointment Type:URO Office Visit Appointment Date:02/24/2023 08:00:00 AM Scheduled Provider:Yovany AKHTAR MD Location:[facility] [place] Appointment Type:URO Office Visit [facility] [place] Evaluation + Plan note Future Appointments Appointment Date:06/11/2024 08:00:00 AM Scheduled Provider:Yovany AKHTAR MD Location:[facility] [place] Appointment Type:URO Office Visit [facility] [place] Evaluation + Plan note Future Appointments Appointment Date:06/10/2025 08:00:00 AM Scheduled Provider:Yovany AKHTAR MD Location:[facility] Appointment Type:URO Office Visit [facility] Hospital course Narrative No data available for this section [facility] Hospital Discharge instructions No data available for this section [facility] Progress note No data available for this section [facility] Summary Purpose Family History No Family History [...] content) Personnel Name: Nancy Fernandez MD Address: [address] [place] [address] Personnel Name: Nancy Fernandez MD Address: Address: [address] [place], [place] [id number] Personnel Name: Nancy Fernandez MD Address: Address: [address] [place] [address] Personnel Name: Nancy Fernandez MD Address: Address: [address] [place] [address] Personnel Name: Nancy Fernandez MD Address: Address: [address] [place] [address] Personnel Name: Nancy Fernandez MD Address: Address: [address] [place] [address] Personnel Name: Nancy Fernandez MD Address: Address: [address] [place] [address] (unrecognized sect ion and content) No Status Records FoundNo Status Records FoundNo Status Records FoundNo Status Records Found INFORMATION SOURCE (unrecogn ized section and content) DATE CREATED AUTHOR 07/07/2022 [facility] pital DATE CREATED AUTHOR AUTHOR'S ORGANIZ ATION 12/26/2023 [facility] dical [facility] DATE CREATED AUTHOR AUTHOR'S ORGANIZ ATION 10/30/2024 [facility] DATE CREATED AUTHOR AUTHOR'S ORGANIZ ATION 12/15/2024 [facility] FOR RECORDS PERTAINING TO PATIENTS WHO ARE [...] BE BASED ON THE PRIMARY CLINICAL RECORDS. [facility] [employer] [facility]. provides no warranty or guarantee of the accuracy or completeness of information in this document.
--- NOTE | 2024-12-18 07:58 | P.CN_ITS ---
Consult Note: HPI Data of Consult Patient: known to practice within the last 3 years Requesting Physician: Shilpi Britton NP Primary Care Provider: Asim Fernandez MD Consult Narrative Reason for consult: f/u Narrative: 59 year old male presents for evaluation of low back pain. prior lumbar MRI consistent with multilevel lumbar stenosis, lumbar DDD, and lumbar facet arthropathy. historically has failed to benefit from PT > 6 weeks, no recent PT due to severe pain. pt has failed gabapentin, celebrex, mobic, tylenol, motrin, baclofen in the past. recently started on flexeril without improvement. pain today 4/10 stabbing increasing with standing, walking, sitting, activity. denies falls or injury. recently underwent left L3-4 L4-5 TFESI with mild relief per pt, however he has had increased right leg pain cc:: CC: Shilpi Britton NP Review of Systems ROS Status of ROS 10 or more systems reviewed and unremark able except as noted in history and below Musculoskeletal Reports: back pain and extremity pain PFSH PFSH Medical History Surgical procedures, elective ?Z41.9 - Encounter for procedure for purposes other than remedying health state, unspecified (ICD-10) Neuropathy ?G62.9 - Polyneuropathy, unspecified (ICD-10) Normal colonoscopy Renal lithiasis ?N20.0 - Calculus of kidney (ICD-10) HTN (hypertension) ?I10 - Essential (primary) hypertension (ICD-10) Hypothyroidism ?E03.9 - Hypothyroidism, unspecified (ICD-10) Diabetes ?E11.9 - Type 2 diabetes mellitus without complications (ICD-10) Traumatic brain injury ?S06.9XAA - Unspecified intracranial injury with loss of consciousness status unknown, initial encounter (ICD-10) MARGE (obstructive sleep apnea) ?G47.33 - Obstructive sleep apnea (adult) (pediatric) (ICD-10) COPD (chronic obstructive pulmonary disease) ?J44.9 - Chronic obstructive pulmonary disease, unspecified (ICD-10) 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 - Acute embolism and thrombosis of superior vena cava (ICD-10) Herniated lumbar intervertebral disc ?M51.26 - Other intervertebral disc displacement, lumbar region (ICD-10) Surgical History Pain management ?R52 - Pain, unspecified (ICD-10) History of cholecystectomy ?Z90.49 - Acquired absence of other specified parts of digestive tract (ICD- 10) History of tonsillectomy ?Z90.89 - Acquired absence of other organs (ICD-10) Hx of lithotripsy ?Z98.890 - Other specified postprocedural states (ICD-10) Hx of lumbar discectomy ?Z98.890 - Other specified postprocedural states (ICD-10) Meds Home Medications and Allergies Home Medications ?Medication ?Instructions ?Recorded ?Confirmed ?Type aspirin 81 mg capsule 81 mg PO DAILY 12/15/23 12/09/24 History carvedilol 25 mg tablet (Coreg) 37.5 mg PO Q12H 12/15/23 12/09/24 History glimepiride 2 mg tablet 2 mg PO DAILY 12/15/23 12/09/24 History hydralazine 50 mg tablet 50 mg PO TID 12/15/23 12/09/24 History hydrochlorothiazide 50 mg tablet 50 mg PO DAILY 12/15/23 12/09/24 History levothyroxine 125 mcg capsule 125 mcg PO DAILY 12/15/23 12/09/24 History metformin 500 mg tablet 500 mg PO BID 12/15/23 12/09/24 History multivitamin 1 tab PO DAILY 12/15/23 12/09/24 History olmesartan 40 mg tablet 40 mg PO DAILY 12/15/23 12/09/24 History pravastatin 20 mg tablet 20 mg PO DAILY 12/15/23 12/09/24 History tramadol 50 mg tablet 50 mg PO QID PRN pain 12/15/23 12/09/24 History cyclobenzaprine 10 mg tablet See Rx Instructions .Route 11/27/24 12/09/24 Rx .COMPLEX PRN muscle spasm #120 tabs Allergies Allergy/AdvReac Type Severity Reaction Status Date / Time No Known Drug Allergies Allergy Verified 12/09/24 10:01 Exam Constitutional Documenting provider has reviewed patient's vital signs: yes Common normals: no apparent distress, oriented x3, healthy appearing, alert and well nourished General appearance: cooperative HENMT Common normals: normocephalic, hearing grossly normal bilaterally and moist oral mucous membranes Head and scalp: normocephalic Eye Common normals: PERRL Pupil: PERRL Neck & C-Spine Common normals: full ROM General: normal visual inspection Chest Common normals: inspection of chest normal Respiratory Common normals: normal respiratory effort, no retractions and no use of accessory muscles Back & Pelvis Lumbar spine/lower back: ROM limited, pain with ROM and straight leg raise negative bilaterally Other: sensation decreased to left L3,4,5 strength 4/5 in LLE, 5/5 in RLE Extremity Common normals: normal to inspection and full ROM Neuro Common normals: oriented x3 Sensorium/orientation: alert Motor exam: no movement abnormalities noted Psych Common normals: mental status grossly normal, thought process normal, cooperative, affect normal, speech normal and activity/motor behavior normal Speech: normal speech Thought process: normal thought process Results Additional Findings Additional findings: If on a controlled substance or opioids, I have checked an [place] report on this patient and there are no aberrancies noted in the prescribing history.??If on a controlled substance or opioid a drug screen was completed and reviewed within the last year, and if there has not been a drug screen completed we ordered one today to monitor higher risk, state monitored pain medication use. As part of providing excellent, safe, comprehensive care, the following was completed at our patient's visit: 1. A medication reconciliation and review to ensure accurate knowledge of current/active medications, including asking our patients to inform us about any [id number] medications or herbal remedies/nutritional supplements/alternat arlette remedies. 2. A review to specifically ensure our patients have had annual screening for screening for depression, screening for tobacco use, and screening for unhealthy alcohol use. For concerning screenings had a discussion with the patient, provided patient education, and recommended follow-up with primary care provider when appropriate. If patient noted with a risk of falling, they received education on strength, gait, and balance training to prevent future risk of falling. Portions of this note may have been carried over from the previous visit and updated as appropriate. Please note this office utilizes paper charting in addition to the electronic medical record. A list of current medications, vitals, and PMH is available there as the clinical staff outside of myself do not have access to [facility] charting during the clinic day operations. As part of providing quality comprehensive care the current medications, vitals, and PMH were reviewed in the paper chart. Assessment and Plan Assessment and Plan (1) Lumbar stenosis with neurogenic claudication: (2) Post laminectomy syndrome: (3) Myofascial pain: (4) Lumbar facet arthropathy: Plan pending NS consultation DC flexeril, start methocarbamol 500-1000mg BID PRN pain/spasms continue motin and tramadol PRN f/u 3 months, sooner based on NS recommendations if needed
== END 2024-12-18 07:47 | disposition home or self-care (01) ==
LOC: PM 07:46
PROVIDERS: PCP Family Medicine; Visit Provider Nurse Practitioner
DX: M48.062 Spinal stenosis, lumbar region with neurogenic claudication (principal); M96.1 Postlaminectomy syndrome, not elsewhere classified; M79.18 Myalgia, other site; M47.816 Spondylosis without myelopathy or radiculopathy, lumbar region
CPT/HCPCS: G0463

== ENCOUNTER 2024-12-23 19:57 | Outpatient (OUT) | payer BC, SELFPAY | END 2024-12-23 19:58 | disposition home or self-care (01) | LOC: SLEEP 19:58 | PROVIDERS: PCP Family Medicine; Visit Provider Family Medicine | DX: G47.33 Obstructive sleep apnea (adult) (pediatric) (principal); R53.83 Other fatigue; R06.83 Snoring | CPT/HCPCS: 95811 ==

== ENCOUNTER 2025-01-02 09:28 | Outpatient (OUT) | payer BC, SELFPAY ==
--- NOTE | 2025-01-02 10:02 | XR_ITS ---
[address] [address] Patient Name: LIZ SHELBY MRN: [id number] date: 1965 Sex: M Assigned Patient Location: RAD Current Patient Location: [facility] Accession/Order Number: [id number] Exam Date: 01/02/2025 10:27 Report Date: 01/02/2025 10:27 At the request of: NANCY VERDIN MD Procedure: XR knee LT 3V LEFT KNEE - 3 views CLINICAL HISTORY: Left Knee Pain COMPARISON: Acute left knee pain FINDINGS: Small joint effusion. No acute bony process or significant degenerative change. XR/XR knee LT 3V IMPRESSION: SMALL JOINT EFFUSION WITHOUT ACUTE BONY PROCESS. Impression dictated by: Chi Mcqueen Jr., D.OCullen 01/02/2025 10:27 AM Dictation Location: [place] [address] Electronically authenticated by: [id number] Y Date: 01/02/2025 10:27
== END 2025-01-02 09:29 | disposition home or self-care (01) ==
LOC: RAD 09:29
PROVIDERS: PCP Family Medicine; Visit Provider Family Medicine
DX: M25.562 Pain in left knee (principal); M25.462 Effusion, left knee
CPT/HCPCS: 73562

== ENCOUNTER 2025-02-24 09:13 | Outpatient (OUT) | payer BC, SELFPAY ==
--- NOTE | 2025-02-24 09:23 | XR_ITS ---
[facility] [place] [id number] Patient Name: LIZ SHELBY MRN: [id number] date: 1965 Sex: M Assigned Patient Location: [facility] Current Patient Location: [facility] Accession/Order Number: [id number] Exam Date: 02/24/2025 10:02 Report Date: 02/24/2025 10:08 At the request of: NANCY VERDIN MD Procedure: XR foot RT 2V RIGHT FOOT - 2 views COMPARISON: None CLINICAL DATA: Lateral right foot pain for the past few days. No definite injury. AP and lateral views were obtained. No acute fracture or dislocation is identified. Minor spurring is seen at the dorsum of the tarsals and tarsometatarsal joints. A tiny enthesophyte is seen at the insertion of the Achilles tendon. No soft tissue swelling is noted. XR/XR foot RT 2V IMPRESSION: NO ACUTE BONY FINDINGS. Impression dictated by: Mago Mejía M.D. 02/24/2025 10:08 AM Dictation Location: [place] [address] Electronically authenticated by: [id number] Y Date: 02/24/2025 10:08
== END 2025-02-24 09:14 | disposition home or self-care (01) ==
LOC: RAD 09:15
PROVIDERS: PCP Family Medicine; Visit Provider Family Medicine
DX: M79.671 Pain in right foot (principal)
CPT/HCPCS: 73620

== ENCOUNTER 2025-05-06 12:11 | Outpatient (OUT) | payer BC, SELFPAY ==
--- OUTSIDE RECORDS SUMMARY | 2025-05-06 12:15 | XMS_ITS | Clinical Summary ---
Author Organization [facility] Address [address] [place] [address], [address] [place] [address] Care Team Providers Care Glazier Structural Glass Name Role Phone Unavailable Primary Care Provider Unavailabl e Social History Tobacco Use Types Packs/Day Years Used Date Smoking Tobacco: Never Assessed Sex and Gender Information Value Date Recorded Sex Assigned at Not on file Legal Sex Male 10:29 PM EST Gender Identity Not on file Sexual Orientation Not on file Plan of Treatment Not on file
--- OUTSIDE RECORDS SUMMARY | 2025-05-06 12:15 | XMS_ITS | Clinical Summary ---
Author Organization [facility] Address [address] [place] [address] Care Team Providers Care Clinical Science Consultant Name Role Phone Asim Fernandez MD Primary Care Provider [phone] Social History Tobacco Use Types Packs/Day Years Used Date Smoking Tobacco: Never Assessed Sex and Gender Information Value Date Recorded Sex Assigned at Not on file Legal Sex Male 7:21 PM EDT Gender Identity Not on file Sexual Orientation Not on file Last Filed Vital Signs Vital Sign Reading Time Taken Comments Blood Pressure - - Pulse - - Temperature - - Respiratory Rate - - Oxygen Saturation - - Inhaled Oxygen Concentration - - Weight 154 kg (339 lb) 12/07/2021 12:00 PM EDT Height 188 cm (6' 2 ) 12/07/2021 12:00 PM EDT Body Mass Index 43.53 12/07/2021 12:00 PM EDT Plan of Treatment Health Maintenance Due Date Last Done Comments CT Colonography 1965 Colonoscopy 1965 Colorectal Cancer Screening 1965 FIT-DNA 1965 FIT 1965 FOBT 1965 Sigmoidoscopy 1965 Influenza Vaccine (#1) 2025 Insurance [employer] Care Teams Clinical Science Consultant Relationship Specialty Start Date End Date Asim Fernandez MD [address] [place] [id number] PCP - General Family Medicine 01/17/25
--- OUTSIDE RECORDS SUMMARY | 2025-05-06 12:15 | XMS_ITS | Clinical Summary ---
Author Organization [facility] Address [id number] [place] [address] Care Team Providers Care Mountain Bike Guide Name Role Phone Unavailable Primary Care Provider Unavailabl e Social History Tobacco Use Types Packs/Day Years Used Date Smoking Tobacco: Never Assessed Childcare Answer Date Recorded Childcare Unknown 02/13/2019 Employment Answer Date Recorded Employment Unknown 02/13/2019 Purpose - Life Answer Date Recorded Purpose and direction in life Unknown Sex and Gender Information Value Date Recorded Sex Assigned at Not on file Legal Sex Male 11:30 AM EDT Gender Identity Not on file Sexual Orientation Not on file Plan of Treatment Health Maintenance Due Date Last Done Comments Depression Screening 1976 Tobacco Screening 1976 Adult BMI Screening 1982 DTaP,Tdap and Td Vaccines (1 - Tdap) 11/06/1983 Colonoscopy 2009 Zoster (Shingles) Vaccine (1 of 2) 2014 Influenza Vaccine 05/05/2025 Medical Devices Not on file
--- OUTSIDE RECORDS SUMMARY | 2025-05-06 12:17 | XMS_ITS | CCD ---
Author Organization [facility] CliniSyma Care Team Providers Care Supervisor Ski Production Name Role Phone Asim Fernandez Primary Care Physician DR ASIM FERNANDEZ Primary Care Unavailable GIOVANA, DR PORSCHE Kwan Consulting Unavailable COOK, DR PORSCHE Kwan Admitting Unavailable COOK, DR PORSCHE Kwan Attending Unavailable JANIE, DR MANSOOR Porras Consulting Unavailable VELVET, DR CRUZ Primary Care Unavailable VELVET, DR CRUZ Admitting Unavailable VELVET, DR CRUZ Attending Unavailable VELVET, DR CRUZ Consulting Unavailable VELVET, DR CRUZ Primary Care Unavailable GIOVANA, DR PORSCHE Kwan Admitting Unavailable COOK, DR PORSCHE Kwan Attending Unavailable COOK, DR PORSCHE Kwan Consulting Unavailable JANIE, DR MANSOOR Porras Consulting Unavailable VELVET, DR CRUZ Primary Care Unavailable COOK, DR PORSCHE Kwan Admitting Unavailable COOK, DR PORSCHE Kwan Attending Unavailable COOK, DR PORSCHE Kwan Consulting Unavailable JANIE, DR MANSOOR Porras [...] Primary Care Unavailable TANISHA CHIU Consulting Unavailable Porsche AKHTAR Attending Unavailable Zena Whipple Attending Unavailable Michele RAYGOZA Attending Unavailable Asim Fernandez Referring Unavailable Porsche AKHTAR Attending Unavailable Karolina CANTOR, Heather Voss Attending Unavailable Karolina CANTOR, Heather Voss Attending Unavailable Karolina CANTOR, Heather Voss Attending Unavailable Karolina CANTOR, Heather Voss Attending Unavailable Asim Fernandez MD Primary Care Provider Turovskaya ZINC ETCHER, Colleen Attending Provider Unavailable [facility] Asim Fernandez MD Primary Care Provider [phone] MICHAEL RAM Attending Unavailable TUROVSKAYA, COLLEEN Referring Unavailable MICHAEL RAM Attending Unavailable TUROVSKAYA, COLLEEN Referring Unavailable LOI BENITEZ Attending Unavailable TUROVSKAYA, COLLEEN Referring Unavailable LOI BENITEZ Attending Unavailable TUROVSKAYA, COLLEEN Referring Unavailable LOI BENITEZ Attending Unavailable TUROVSKAYA, COLLEEN Referring Unavailable LOI BENITEZ Attending Unavailable TUROVSKAYA, COLLEEN Referring Unavailable Asim Fernandez MD Primary Care Provider [phone] TurovskColleen maravilla APRN Attending Provider Tanisha Ocampo DO Attending Provider [phone] Asim Fernandez MD Primary Care Provider Colleen Aquino APRN Attending Provider Tanisha Ocampo DO Other Provider Nithin CANTOR, Williams Amaral Attending Provider [phone] Turovskaya, Colleen Admitting Unavailable Turovskaya, Colleen Attending Unavailable Asim Fernandez Primary Care Unavailable Turovskaya, Colleen Attending Unavailable Asim Fernandez Primary Care Unavailable Turovskaya, Colleen Admitting Unavailable Turovskaya, Colleen Attending Unavailable Asim Fernandez Primary Care Unavailable Turovskaya, Colleen Admitting Unavailable Asim Fernandez Primary Care Unavailable Tanisha Ocampo Admitting Unavailable Tanisha Ocampo Attending Unavailable Allergies Allergy Classification Reported Allergen(s) Allergy Type Date of Onset Reaction(s) Facility (9 sources) Acetaminophen / HYDROcodone; Translations: [acetaminophen-hyd rocodone] Drug Allergy Hyperactive behavior (finding) [facility] Andrew Medications Current Medications Medication Drug [...] aspirin 81 mg delayed release oral tablet (10 sources) Platelet Aggregation Inhibitor, Nonsteroidal Anti-inflammatory Drug Start: 12-26-2024 take 1 tablet by mouth once daily Aspirin 81 mg tablet,delayed release (DR/EC) Active 81 MG PO Daily December 26, 2024 12:00am Complies with drug therapy Start: 10-18-2024 take 1 tablet by cindy th once daily aspirin 81 mg Oral EC [...] Refills(s) 0 Start Date: 10/18/24 Status: Ordered furosemide 40 mg oral tablet (5 sources) Loop Diuretic Start: 03-04-2025 take 1 tablet by mouth once daily Furosemide (Lasix) 40 mg tablet Active 40 MG PO Daily March 04, 2025 12:00am Complies with drug therapy glimepiride 4 mg oral tablet (12 sources) Sulfonylurea Start: 12-26-2024 take 1 tablet by mouth once daily Glimepiride 4 mg tablet Active 4 MG PO Daily December 26, 2024 12:00am Complies with drug therapy Start: 10-18-2024 take 1 tablet by cindy th once daily glimepiride 4 mg Tab 4 mg = 1 tab(s), Oral, Daily, Refills(s) 0 Start Date: 10/18/24 Status: Ordered Start: 06-11-2024 take 1 mg by mouth once daily glimepiride 2 mg Tab mg tab(s), Oral, Daily, Refills(s) 0 Start Date: 06/11/24 Status: Ordered hydrALAZINE hydrochloride 100 mg oral tablet (17 sources) Arteriolar Vasodilator Start: 12-26-2024 take 1 tablet by mouth three times daily Hydralazine 100 mg tablet Active 100 MG PO Three times daily December 26, 2024 12:00am Complies with drug therapy Start: 10-18-2024 take 1 tablet by cindy th three times daily hydrALAZINE 50 mg Tab 50 mg = 1 tab(s), Oral, TID, Refills(s) 0 Start Date: 10/18/24 Status: Ordered Start: 04-28-2017 take 100 mg by mouth three times daily hydrALAZINE 100 mg, Oral, TID, Refills(s) 0, High blood pressure Start Date: 04/28/17 Status: Ordered levothyroxine sodium 0.15 mg oral capsule (17 sources) l-Thyroxine Start: 12-26-2024 take 1 capsule by mouth once daily Levothyroxine 150 mcg capsule Active 150 MCG PO Daily December 26, 2024 12:00am Complies with drug therapy Start: 10-18-2024 take 1 tablet by cindy th once daily levothyroxine 150 mcg (0.15 mg) [...] Daily, Thyroid Start Date: 07/29/20 Status: Ordered meloxicam 15 mg oral tablet (5 sources) Nonsteroidal Anti-inflammatory Drug Start: 03-04-2025 take 1 tablet by mouth once daily Meloxicam 15 mg tablet Active 15 MG PO Daily March 04, 2025 12:00am Complies with drug therapy metFORMIN hydrochloride 500 mg oral tablet (17 sources) Biguanide Start: 12-26-2024 take 1 tablet by mouth twice daily Metformin 500 mg tablet Active 500 MG PO Twice daily December 26, 2024 12:00am Complies with drug therapy Start: 10-18-2024 take 1 tablet by cindy th twice daily metformin 500 mg Tab 500 mg = 1 tab(s), Oral, BID, Refills(s) 0 Start Date: 10/18/24 Status: Ordered Start: 05-08-2020 take 1 tablet by cindy th twice daily metformin 500 mg ER Tab 500 mg = 1 tab(s), Oral, BID, Refills(s) 0, Blood glucose Start Date: 05/08/20 Status: Ordered methocarbamol 500 mg oral tablet (9 sources) Muscle Relaxant Start: 12-26-2024 Methocarbamol 500 mg tablet Active 500 MG PO .PRN December 26, 2024 12:00am Complies with drug therapy Multivitamin tablet (9 sources) Start: 12-26-2024 take 1 tablet by mouth once daily Multivitamin tablet Active 1 TAB PO Daily December 26, 2024 12:00am Complies with drug therapy Start: 12-26-2024 take 1 tablet by cindy th once daily Start: 12-26-2024 take 1 tablet by cindy th once daily Multivitamin tablet Active 1 TAB PO Daily December 26, 2024 12:00am olmesartan medoxomil 40 mg oral tablet (17 sources) Angiotensin 2 Receptor Esperanza Start: 12-26-2024 take 1 tablet by mouth once daily Olmesartan (Benicar) 40 mg tablet Active 40 MG PO Daily December 26, 2024 12:00am Complies with drug therapy Start: 03-06-2019 take 1 tablet by mouth at bedt milena Benicar 40 mg Tab 40 mg = 1 tab(s), Oral, Bedtime, High blood pressure Start Date: 03/06/19 Status: Ordered potassium chloride 10 meq extended release oral capsule (5 sources) Start: 03-04-2025 take 1 capsule by mouth twice daily Potassium Chloride 10 mEq capsule, extended release Active 10 MEQ PO Twice daily March 04, 2025 12:00am Complies with drug therapy pravastatin sodium 20 mg oral tablet (17 sources) HMG-CoA Reductase Inhibitor Start: 12-26-2024 take 1 tablet by mouth once daily Pravastatin 20 mg tablet Active 20 MG PO Daily December 26, 2024 12:00am Complies with drug therapy Start: 04-28-2017 take 20 mg by mouth [...] 30 cap(s), Refills(s) 2, [facility]: [id number], 188, cm, 06/10/22 9:57:00 EDT, Height/Length Dosing, 150, kg, 06/10/22 9:57:00 EDT, Weight Dosing Start Date: 06/10/22 Status: Ordered traMADol hydrochloride 50 mg oral tablet (17 sources) Opioid Agonist Start: 12-26-2024 take 1 tablet by mouth every six hours as needed Tramadol 50 mg tablet Active 50 MG PO Every 6 hours as needed December 26, 2024 12:00am Complies with drug therapy Start: 01-15-2021 take 50 mg by mouth [...] (Normalized) Sig (Original) ##### (1 source) Start: 5 ##### 30 EA, 0 Refill(s), TAKE 1 TABLET BY MOUTH EVERYDAY AT BEDTIME NEEDED Start Date: 09/10/24 Status: Ordered hydroCHLOROthiazide 50 mg oral tablet (17 sources) Thiazide Diuretic Start: 5 End: 5 take 1 tablet by mouth once daily Hydrochlorothiazide 50 mg tablet Discontinued 50 MG PO Daily December 26, 2024 12:00am March 04, 2025 8:43am Start: 10-18-2024 take 1 tablet by cindy once daily hydrochlorothiazide 50 mg Tab 50 mg = 1 tab(s), Oral, Daily, Refills(s) 0 Start Date: 10/18/24 Status: Ordered Start: 02-19-2019 take 2 tablets by mo [facility] once daily in the morning hydrochlorothiazide 25 mg oral tablet 50 mg = 2 tab(s), Oral, qAM, Refills(s) 0, High blood pressure Start Date: 02/19/19 Status: Ordered Problems Active Problems Problem Classification [...] 02-19-2019 Episodic Other aftercare (1 source) Other snf (current) drug therapy; Translations: [OTH CIVIL LITIGATION ATTORNEY CURRENT DRUG THERAPY] Onset: 05-31-20 Episodic Other aftercare (1 source) [employer]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; Translations: [CIVIL LITIGATION ATTORNEY CURRENT USE OF ASPIRIN] Onset: 05-31-20 Episodic Other and unspecified benign neoplasm (7 sources) Dermatofibroma 02-19-2019 Episodic Other circulatory disease (8 sources) H/O: cardiovascular disease 04-28-2017 Episodic Comment on above: superficial left leg february 2017 Other connective tissue disease (16 sources) Neurogenic claudication; Translations: [Other symptoms and signs involving the nervous system] 01-30-2025 Episodic Other gastrointestinal disorders (1 source) Abnormal feces; Translations: [Other fecal abnormalities] Onset: 10-29-19 Episodic Other gastrointestinal disorders (2 sources) Occult blood in stools 10-23-2024 Episodic Other lower respiratory disease (8 sources) History of chronic lung disease 04-28-2017 Episodic Other nervous system disorders (2 sources) Neuropathy 09-10-2024 Chronic Other nervous system disorders (20 sources) Paresthesia of foot ; Translations: [Anesthesia of skin] 12-26-2024 Episodic Other nervous system disorders (2 sources) Anesthesia of skin; Translations: [Disturbance of skin sensation] 12-26-2024 Episodic Other nutritional; endocrine; and metabolic disorders (8 [...] intervertebral disc degeneration, lumbar region] Onset: 09-29-19 22 Chronic Spondylosis; intervertebral disc disorders; other back problems (20 sources) Lumbar radiculopathy; Translations: [Cervical radiculopathy] Onset: 01-10-20 24 09-10-2024 Episodic Thyroid disorders (9 sources) Hypothyroidism 07-29-2020 Chronic Unclassified (2 sources) Urine finding 09-10-2024 Unclassified (2 sources) Patient advised about weight management; Translations: [Z78.9 - Other specified health status] Urinary tract infections (1 source) Urinary tract [...] Test Name Value Interpretation Reference Range Facility CT lumbar spine wo conon CT lumbar spine wo con [facility] [place] [address] CT Scan Report Signed Patient: Liz Hernandez MR#: [id number] 5 : 1965 Acct:[id number] Age/Sex: 59 / M ADM Date: 03/18/25 Loc: CT Room: Type: [facility] Attending Dr: Colleen Aquino APRN Copies to: Colleen Aquino APRN Ordering Provider: Colleen Aquino APRN Date of Service: 03/18/25 CT/CT lumbar spine wo con: M54.16 - Radiculopathy, lumbar region CT lumbar spine wo con 03/18/2025 8:43 AM History:Lower back pain, bilateral leg weakness, abnormal MRI TECHNIQUE: Multi detector CT axial slices of the lumbar spine were obtained without IV contrast. Volumetric acquisition sagittal, coronal, and 3-D reconstructions were performed and reviewed on a separate workstation. CT was performed with one or more of the following dose reduction techniques: Automated exposure control, adjustment of the mA and/or kV according to patient size, or use of iterative reconstruction technique. COMPARISON: MRI lumbar spine 02/28/2025 FINDINGS: There is preservation of the vertebral body heights. Mild levocurvature. Moderate severe intervertebral space narrowing narrowing with vacuum disc phenomenon L5-S1 and L2-L3. Voyb-vu-[id number] intervertebral space narrowing with mediastinal L3-L5. Multilevel moderate severe facet arthropathy greatest L4-S1. No fracture malalignment multilevel central canal and foraminal encroachment is better evaluated on recent MRI. CT/CT lumbar spine wo con IMPRESSION: Moderate severe multilevel degenerative changes. Negative acute fracture or malalignment Impression dictated by: Christopher Mendes M.D. 03/18/2025 9:20 AM Dictation Location: [place] [address] Transcribed By: [facility] 03/18/25 0920 Dictated By: Christopher Mendes MD 03/18/25 0916 Signed By: 03/18/25 0920 Normal [facility] MR lumbar spine wo conon MR lumbar spine wo con [facility] [place] [address] [place] [address] MRI Report Signed Patient: Liz Hernandez MR#: [id number] 5 : 1965 Acct:[id number] Age/Sex: 59 / M ADM Date: 02/28/25 Loc: Room: Type: [facility] Attending Dr: Colleen Aquino APRN Copies to: Colleen Aquino APRN Ordering Provider: Colleen Aquino APRN Date of Service: 02/28/25 MR/MR lumbar spine wo con: M54.16 - Radiculopathy, lumbar region MR lumbar spine wo con 02/28/2025 7:18 AM SIGNS AND SYMPTOMS: History of lumbar discectomy, new back pain with pain in hip and lower extremities PROTOCOL: Multiplanar multisequence MR images of the lumbar spine without IV contrast COMPARISON: 01/01/2024 FINDINGS: The bones of the lumbar spine are in anatomic alignment. There is preservation of vertebral body heights. There is moderate severe disc height loss at L2-L3. There is disc desiccation and mild disc height loss at L3-L4 and L4-5. There is moderate to severe disc height loss at L5-S1. There is Modic type I endplate edema at L2-L3. The conus terminates at the mid T12 vertebral body level. No epidural or paraspinous fluid collection is appreciated. At T12-L1: There is a normal disc, central canal, and neural foramen. At L1-L2: There is a normal disc, central canal, and neural foramen. At L2-L3: There is a broad-based disc bulge with endplate osteophyte formation and facet hypertrophy. There is moderate bilateral neural foraminal narrowing with mild spinal canal stenosis. At L3-L4: There is a circumferential disc bulge with facet hypertrophy. There is mild spinal canal stenosis with moderate to severe bilateral neural foraminal narrowing. This is unchanged. At L4-L5: There is a circumferential disc bulge with facet hypertrophy left greater than right. There is a small right-sided facet effusion. There is mild spinal canal narrowing with severe left and moderate to severe right neural foraminal narrowing. Is mild mass effect on the exiting right L4 nerve roots. This is unchanged. At L5-S1: There is a circumferential disc bulge with facet hypertrophy and ligamentum flavum thickening. There is endplate osteophyte formation. There is moderate severe right and severe left neural foraminal narrowing. There is mild spinal canal narrowing. Is mass effect on the exiting L5 nerve roots left greater than right. This is unchanged. MR/MR lumbar spine wo con IMPRESSION: At L3-L4: There is a circumferential disc bulge with facet hypertrophy. There is mild spinal canal stenosis with moderate to severe bilateral neural foraminal narrowing. This is unchanged. At L4-L5: There is a circumferential disc bulge with facet hypertrophy left greater than right. There is a small right-sided facet effusion. There is mild spinal canal narrowing with severe left and moderate to severe right neural foraminal narrowing. Is mild mass effect on the exiting right L4 nerve roots. This is unchanged. At L5-S1: There is a circumferential disc bulge with facet hypertrophy and ligamentum flavum thickening. There is endplate osteophyte formation. There is moderate severe right and severe left neural foraminal narrowing. There is mild spinal canal narrowing. Is mass effect on the exiting L5 nerve roots left greater than right. This is unchanged. Worsening Modic type I endplate edema at L2-L3: There is Impression dictated by: Liz Figueroa M.D. 02/28/2025 10:53 AM Dictation Location: [place] [address] Transcribed By: ARNULFO 02/28/25 1053 Dictated By: Liz Figueroa II, MD 02/28/25 1044 Signed By: 02/28/25 1053 Normal [facility] Magnetic resonance imaging r eportOrdered By: Liz Figueroa on 02-28-2025 Study report [facility] [place] [address] [place] [address] MRI Report Signed Patient: Liz Hernandez MR#: [id number] : 1965 Acct:[id number] Age/Sex: 59 / M ADM Date: 5 Loc: Room: Type: [facility] Attending Dr: Colleen Aquino APRN Copies to: Colleen Aquino APRN~ Ordering Provider: Colleen Aquino APRN Date of Service: 02/28/25 MR/MR lumbar spine wo con: M54.16 - Radiculopathy, lumbar region MR lumbar spine wo con 02/28/2025 7:18 AM SIGNS AND SYMPTOMS: History of lumbar discectomy, new back pain with pain in hipand lower extremities PROTOCOL: Multiplanar multisequence MR images of the lumbar spine without IV contrast COMPARISON: 01/01/2024 FINDINGS: The bones of the lumbar spine are in anatomic alignment. There is preservation of vertebral body heights. There is moderate severe disc height loss at L2-L3. There is disc desiccation and mild disc height loss at L3-L4 andL4-5. There is moderate to severe disc height loss at L5-S1. There is Modic type I endplate edema at L2-L3. The conus terminates at the mid T12 vertebral body level. No epidural or paraspinous fluid collection is appreciated. At T12-L1: There is a normal disc, central canal, and neural foramen. At L1-L2: There is a normal disc, central canal, and neural foramen. At L2-L3: There is a broad-based disc bulge with endplate osteophyte formation and facet hypertrophy. There is moderate bilateral neural foraminal narrowing with mild spinal canal stenosis. At L3-L4: There is a circumferential disc bulge with facet hypertrophy. There is mild spinal canal stenosis with moderate to severe bilateral neural foraminalnarrowing. This is unchanged. At L4-L5: There is a circumferential disc bulge with facet hypertrophy left greater than right. There is a small right-sided facet effusion. There is mildspinal canal narrowing with severe left and moderate to severe right neural foraminal narrowing. Is mild mass effect on the exiting right L4 nerve roots. This is unchanged. At L5-S1: There is a circumferential disc bulge with facet hypertrophy and ligamentum flavum thickening. There is endplate osteophyte formation. There ismoderate severe right and severe left neural foraminal narrowing. There is mildspinal canal narrowing. Is mass effect on the exiting L5 nerve roots left greater than right. This is unchanged. MR/MR lumbar spine wo con IMPRESSION: At L3-L4: There is a circumferential disc bulge with facet hypertrophy. There is mild spinal canal stenosis with moderate to severe bilateral neural foraminalnarrowing. This is unchanged. At L4-L5: There is a circumferential disc bulge with facet hypertrophy left greater than right. There is a small right-sided facet effusion. There is mildspinal canal narrowing with severe left and moderate to severe right neural foraminal narrowing. Is mild mass effect on the exiting right L4 nerve roots. This is unchanged. At L5-S1: There is a circumferential disc bulge with facet hypertrophy and ligamentum flavum thickening. There is endplate osteophyte formation. There ismoderate severe right and severe left neural foraminal narrowing. There is mildspinal canal narrowing. Is mass effect on the exiting L5 nerve roots left greater than right. This is unchanged. Worsening Modic type I endplate edema at L2-L3: There is Impression dictated by: Liz Figueroa M.D. 02/28/2025 10:53 AM Dictation Location: [place] [address] Transcribed By: ARNULFO 02/28/25 1053 Dictated By: Liz Figueroa II, MD 02/28/25 1044 Signed By: 02/28/25 1053 [facility] Work Phone: X-ray reportOrdered By: Foreign Mcqueen on 12-26-2024 Study report [facility] Main [address] [address] XRay Report Signed Patient: Liz Hernandez MR#: [id number] : 1965 Acct:[id number] Age/Sex: 59 / M ADM Date: 5 Loc: XD Room: Type: REG CLI Attending Dr: Colleen Aquino ZINC ETCHER Copies to: Colleen Aquino APRN~ Ordering Provider: Colleen Aquino APRN Date of Service: 12/26/24 XR/XR lumbar spine 6V w bending: M54.16 - Radiculopathy, lumbar region LUMBAR SPINE - 6 views CLINICAL HISTORY: Low back pain worsening over time rating down left leg. COMPARISON: None FINDINGS: Vertebral body heights appear maintained. Diffuse moderate degenerative disc disease with endplate and facet joint degenerative changes. No pathological motion on flexion or extension views. Relatively symmetrical sidebending. XR/XR lumbar spine 6V w bending IMPRESSION: DIFFUSE MODERATE DEGENERATIVE DISC DISEASE. Impression dictated by: Chi Mcqueen Jr., D.OCullen12/26/2024 2:42 PM Dictation Location: [place] [address] Transcribed By: [facility] 12/26/24 1442 Dictated By: Chi Mcqueen Jr, DO 12/26/24 1441 Signed By: 12/26/24 1442 [facility] XR lumbar spine 6V w bending on 12-26-2024 XR lumbar spine 6V w bending [facility] Main [address] [address] XRay Report Signed Patient: Liz Hernandez MR#: [id number] 5 : 1965 Acct:[id number] Age/Sex: 59 / M ADM Date: 12/26/24 Loc: XD Room: Type: REG CLI Attending Dr: Colleen Aquino ZINC ETCHER Copies to: Colleen Aquino APRN Ordering Provider: Colleen Turovskaya, ZINC ETCHER Date of Service: 12/26/24 XR/XR lumbar spine 6V w bending: M54.16 - Radiculopathy, lumbar region LUMBAR SPINE - 6 views CLINICAL HISTORY: Low back pain worsening over time rating down left leg. COMPARISON: None FINDINGS: Vertebral body heights appear maintained. Diffuse moderate degenerative disc disease with endplate and facet joint degenerative changes. No pathological motion on flexion or extension views. Relatively symmetrical sidebending. XR/XR lumbar spine 6V w bending IMPRESSION: DIFFUSE MODERATE DEGENERATIVE DISC DISEASE. Impression dictated by: Chi Mcqueen Jr., D.O.12/26/2024 2:42 PM Dictation Location: [place] [address] Transcribed By: [facility] 12/26/24 1442 Dictated By: Chi Mcqueen Jr, DO 12/26/24 1441 Signed By: 12/26/24 1442 Normal [facility] Phys[facility] Ambulatory Visit Summaryon 0 10-29-2024 Ambulatory Visit Summary Ambulatory Visit Summary LIZ HERNANDEZ :1965 Visit Date:10/29/2024 Ambulatory Visit Instructions Your Diagnosis Positive fecal occult blood test Your Care Team Attending Physician - Michele RAYGOZA MD Primary Care Physician - Asim Fernandez MD Referring Physician - Asim Fernandez MD This Is Your Medications List [...] Follow-Up Appointments Monday 8:00 AM EDT With: GIVOANA CANTOR, Porsche Kwan Where: [facility] [address] [place] [address]- Medications What How Much When Instructions Unchanged [...] for choosing us for your care. Normal [facility] Reminderson 10-29-2024 Reminders Reminders From: Alexia Vega LPN To: [facility] - Clinical; Sent: 10/29/2024 09:31:53 EST Show up: 02/16/2029 07:00:00 EDT Subject: colonoscopy recall Due Date/Time: 03/04/2029 07:00:00 EDT Reminder/Recall Patient is due for screening colonoscopy 03/2029. Normal [facility] Urology Office/Clinic Noteon 09-12-2024 Urology Office/Clinic Note [...] Urnls Dip Stick Auto w/o Microscopy POC [id number] 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 Normal [facility] Comment on above: Result Comment: Elec [...] APRN, [place] X Primary Care Physician - Asim Fernandez MD This Is Your Medications List [...] Follow-Up Appointments Monday 8:00 AM EDT With: Porsche AKHTAR MD Where: [facility] Andrew [address] 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 (more content not included)... Normal [facility] Ambulatory Visit Summaryon 1 Ambulatory Visit Summary Ambulatory Visit Summary LIZ HERNANDEZ :1965 Visit Date:06/11/2024 Ambulatory Visit Instructions Your Diagnosis Kidney stone BPH (benign prostatic hyperplasia) Hypertension Tests Performed XR Abdomen 1 View -- Results Pending -- Please visit your patient portal for your results or contact your primary care physician. Your Care Team Attending Physician - Porsche AKHTAR MD Primary Care Physician - Asim Fernandez MD This Is Your Medications List [...] Follow-Up Appointments Monday 8:00 AM EDT With: Porsche AKHTAR MD Where: [facility] [address] 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 (more content not included)... Normal [facility] Urology Office/Clinic Noteon 06-11-2024 Urology Office/Clinic [...] KUB was read as negative at the [facility] but to my review there may [...] Follow-up With When Contact Information GIOVANA CANTOR, Porsche Kwan, URL [address] [place] [address]- Additional Instructions: 1 yr with KUB and [...] with voice recognition artificial intelligence software, specifically [employer], [employer] and or [employer]. Substitutions may have occurred due to the inherent limitations of voice recognition and artificial intelligence software. Problem List/Past Medical History Ongoing BMI 40.0-44.9, adult BPH (benign prostatic hyperplasia) Chronic anticoagulation Dermatofibroma of left upper arm Diabetes mellitus type 2, noninsulin dependent Elevated PSA Hx of snf use of blood thinners Kidney stone Nocturia Osteoarthritis Historical GERD (gastroesophag (more content not included)... Normal [facility] Comment on above: Result Comment: Elec tronically Signed By: Porsche AKHTAR MD P\.br\Date and Time Signed: 06/11/24 [...] 18:56 Normal [facility] XR KUB 1 VIEWon 06-09-2022 XR KUB [...] MAN[place]OR [place] Date: 2022-06-09 17:41 Normal [facility] CBC AUTO DIFFon 05-29-2022 BASO # 0.1 103/ul Normal 0.0-0.1 [facility] Comment on above: Performed By: #### C BC ####[facility] [address] [place], [place] [address]OiCullen Aldrich Basophils/100 WBC (Bld) 0.2 % Normal 0.2-2.0 [facility] Comment on above: Performed By: #### C BC ####[facility] [address] [place] [id number]. Wyatt Aldrich EO # 0.0 103/ul Normal 0.0-0.7 [facility] Comment on above: Performed By: #### C BC ####[facility] [address] [place] [id number]. Wyatt Aldrich Eosinophils/100 WBC (Bld) 0.2 % Critically low 0.9-7.0 [facility] Comment on above: Performed By: #### C BC ####[facility] [address] [place], [place] [address]Dr. Wyatt Aldrich Erythrocyte distribution width (RBC) [Ratio] 12.3 % Normal 11.0-15.0 [facility] Comment on above: Performed By: #### C BC ####[facility] X[address] [place], [place] [address]Dr. Wyatt Aldrich Hematocrit (Bld) [Volume fraction] 45.9 % Normal 42.0-54.0 [facility] Comment on above: Performed By: #### C BC ####[facility] [address] [place] [address]Dr. Wyatt Aldrich Hemoglobin (Bld) [Mass/Vol] 15.2 g/dL Normal 14.0-18.0 [facility] Comment on above: Performed By: #### C BC ####[facility] [address] [place] [address]Dr. Wyatt Aldrich IG # 0.09 10e3/ul Critically high 0.00-0.03 [facility] Comment on above: Performed By: #### C BC ####[facility] [address] [place] [address]Dr. Wyatt Aldrich IG % 0.4 % Normal 0.0-0.5 [facility] Comment on above: Performed By: #### C BC ####[facility] [address] [place], [place] [address]Dr. Wyatt Aldrich LYMPH # 1.1 103/ul Critically low 1.2-3.8 [facility] Comment on above: Performed By: #### C BC ####[facility] [address] [place] [id number]. Wyatt Valdemar Lymphocytes/100 WBC (Bld) 5.1 % Critically low 20.5-60.0 [facility] Comment on above: Performed By: #### C BC ####[facility] [address] [place] [address]Dr. Jossielalo Aldrich MANUAL DIFF REQ NO Normal [facility] Comment on above: Performed By: #### C BC ####[facility] [address] [place] [address]Dr. Wyatt Valdemar MCH (RBC) [Entitic mass] 30.2 pg Normal 25.9-34.0 [facility] Comment on above: Performed By: #### C BC ####[facility] F[address]reg[address] [place], [place] [address]Dr. Jossielalo Aldrich MCHC (RBC) [Mass/Vol] 33.1 g/dL Normal 29.9-35.2 [facility] Comment on above: Performed By: #### C BC ####[facility] [address] [place], [place] [address]Dr. Wyatt Valdemar MCV (RBC) [Entitic vol] 91.3 fL Normal 80.0-94.0 [facility] Comment on above: Performed By: #### C BC ####[facility] [address] [place], [place] [address]Dr. Wyatt Aldrich MONO # 1.4 103/ul Critically high 0.3-0.8 [facility] Comment on above: Performed By: #### C BC ####[facility] [address] [place], [place] [address]Dr. Jossielalo Aldrich Monocytes/100 WBC (Bld) 6.7 % Normal 1.7-12.0 [facility] Comment on above: Performed By: #### C BC ####[facility] [address] [place], [place] [address]Dr. Wyatt Aldrich NEUT # 18.5 103/ul Critically high 1.4-6.5 [facility] Comment on above: Performed By: #### C BC ####[facility] [address] [place], [place] [address]Ap. Wyatt Aldrich Neutrophils/100 WBC (Bld) 87.4 % Critically high 43.0-75.0 [facility] Comment on above: Performed By: #### C BC ####[facility] [address] [place], [place] [address]Tj. Wyatt Aldrich Platelet mean volume (Bld) [Entitic vol] 9.3 fL Critically low 9.5-13.5 [facility] Comment on above: Performed By: #### C BC ####[facility] [address] [place], [place] [address]Fw. Wyatt Aldrich PLT 303 103/ul Normal 150-450 [facility] Comment on above: Performed By: #### C BC ####[facility] [address] [place], [place] [address]Zo. Wyatt Aldrich RBC 5.03 106/ul Normal 4.70-6.10 [facility] Comment on above: Performed By: #### C BC ####[facility] [address] [place], [place] [address]Qv. Wyatt Aldrich WBC 21.2 103/ul Critically high 4.0-11.0 [facility] Comment on above: Performed By: #### C BC ####[facility] [address] [place], [place] [address]Xj. Wyatt Ald[address] CT ABD/PELVIS WO CONon 05-29 [...] right renal calculus. Bowel: No significant finding. Peritoneum/retroperiton eum: No significant finding. Lymph nodes: No significant finding. Vessels: No significant finding. Body wall: No significant finding. Reproductive: No significant finding. Bones: No significant finding. IMPRESSION: 2 mm right distal ureteral calculus. Additional, 6 mm right UPJ calculus. Mild to moderate right hydronephrosis. Superimposed infection not excluded. Hepatic steatosis. Electronically authenticated by: BOO GUZMAN Date: 2022-05-29 17:32 Normal [facility] ER URINE PROFILEon 2 Bilirubin Ql (U) Negative Normal NEGATIVE [facility] Comment on above: Performed By: #### U MICRO, ERUR #### [facility] [address] [place] [address] Dr. Wyatt Aldrich Clarity (U) CLEAR Normal CLEAR [facility] Comment on above: Performed By: #### U MICRO, ERUR #### [facility] [address] [place] [address] Dr. Wyatt Aldrich Color (U) LT. YELLOW Normal YELLOW [facility] Comment on above: Performed By: #### U MICRO, ERUR #### [facility] [address] [place] [address] [address] Wyatt [place] A micrscopic examination will be performed if indicated. Normal [facility] Comment on above: Performed By: #### U MICRO, ERUR #### [facility] [address] [place] [address] [address] Wyatt Aldrich Glucose Ql (U) Negative Normal NEGATIVE [facility] Comment on above: Performed By: #### U MICRO, ERUR #### [facility] [address] [place] [address] [address] Wyatt Aldrich Hemoglobin Ql (U) TRACE-INTACT Abnormal NEGATIVE [facility] Comment on above: Performed By: #### U MICRO, ERUR #### [facility] [address] [place] [address] Dr. Wyatt Aldrich Ketones Ql (U) Negative Normal NEGATIVE [facility] Comment on above: Performed By: #### U MICRO, ERUR #### [facility] [address] [place] [address] Dr. Waytt Aldrich LEUKOCYTES Negative Normal NEGATIVE [facility] Comment on above: Performed By: #### U MICRO, ERUR #### [facility] [address] [place] [address] Dr. Wyatt Aldrich Nitrite Ql (U) Negative Normal NEGATIVE [facility] Comment on above: Performed By: #### U MICRO, ERUR #### [facility] [address] [place] [address] Dr. Wyatt Aldrich pH (U) 7.0 [pH] Normal 5-9 [facility] Comment on above: Performed By: #### U MICRO, ERUR #### [facility] [address] [place] [address] Dr. Wyatt Aldrich SPEC GRAVITY 1.020 Normal 1.005-<=1.025 [facility] Comment on above: Performed By: #### U MICRO, ERUR #### [facility] [address] [place] [address] Dr. Wyatt Aldrich UA PROTEIN Negative Normal NEGATIVE/ TRACE [facility] Comment on above: Performed By: #### U MICRO, ERUR #### [facility] [address] [place] [address] Dr. Wyatt Aldrich UR MICRO IND INDICATED Normal [facility] Comment on above: Performed By: #### U MICRO, ERUR #### [facility] [address] [place] [address] Dr. Wyatt Alrdich Urobilinogen Qn (U) 0.2 {Sharon'U}/dL Normal 0.2 - 1. 0 [facility] Comment on above: Performed By: #### U MICRO, ERUR #### [facility] [address] [place] [address] Dr. Wyatt Aldrich PROF 14(COMP METB)on 022 Albumin [Mass/Vol] 3.9 g/dL Normal 3.4-5.0 [facility] Comment on above: Performed By: #### C MP #### [facility] [address] [place] [address] Dr. Wyatt Aldrich Albumin/Globulin [Mass ratio] 1.1 {ratio} Normal [facility] Comment on above: Performed By: #### C MP #### [facility] [address] [place] [address] Dr. Wyatt Aldrich ALP [Catalytic activity/Vol] 70 U/L Normal 46-116 [facility] Comment on above: Performed By: #### C MP #### [facility] [address] [place] [address] Dr. Wyatt Aldrich ALT [Catalytic activity/Vol] 38 U/L Normal 16-63 [facility] Comment on above: Performed By: #### C MP #### [facility] [address] [place] [address] Dr. Wyatt Aldrich Anion gap [Moles/Vol] 12.6 mmol/L Normal [facility] Comment on above: Performed By: #### C MP #### [facility] [address] [place] [address] Dr. Wyatt Aldrich AST [Catalytic activity/Vol] 20 U/L Normal 15-37 [facility] Comment on above: Performed By: #### C MP #### [facility] [address] [place] [address] Dr. Wyatt Aldrich Bilirubin [Mass/Vol] 0.6 mg/dL Normal 0.2-1.0 [facility] Comment on above: Performed By: #### C MP #### [facility] [address] [place] [address] Dr. Wyatt Aldrich Calcium [Mass/Vol] 8.7 mg/dL Normal 8.5-10.1 [facility] Comment on above: Performed By: #### C MP #### [facility] [address] [address] [address] Wyatt Aldrich Chloride [Moles/Vol] 95 mmol/L Critically low 98-107 [facility] Comment on above: Performed By: #### C MP #### [facility] [address] [place] [address] Dr. Wyatt Aldrich CO2 [Moles/Vol] 29.9 mmol/L Normal 21.0-32.0 [facility] Comment on above: Performed By: #### C MP #### [facility] [address] [address] [address] Wyatt Aldrich Creatinine [Mass/Vol] 1.04 mg/dL Normal 0.70-1.30 [facility] Comment on above: Performed By: #### C MP #### [facility] [address] [address] [address] Wyatt Aldrich EGFR-AF PAKISTANI >60 Normal >=60 [facility] Comment on above: Performed By: #### C MP #### [facility] [address] [address] [address] Wyatt Aldrich EGFR-NON AF PAKISTANI >60 Normal >=60 [facility] Comment on above: Performed By: #### C MP #### [facility] [address] [place] [address] Dr. Wyatt Aldrich Globulin (S) [Mass/Vol] 3.4 g/dL Normal [facility] Comment on above: Performed By: #### C MP #### [facility] [address] [address] [address] Wyatt Aldrich Glucose [Mass/Vol] 148 mg/dL Critically high 74-106 [facility] Comment on above: Performed By: #### C MP #### [facility] [address] [place] [address] Dr. Wyatt Aldrich Potassium [Moles/Vol] 4.5 mmol/L Normal 3.5-5.1 [facility] Comment on above: Performed By: #### C MP #### [facility] [address] [address] [address] Wyatt Aldrich Protein [Mass/Vol] 7.3 g/dL Normal 6.4-8.2 [facility] Comment on above: Performed By: #### C MP #### [facility] [address] [place] [address] [address] Wyatt Aldrich Sodium [Moles/Vol] 133 mmol/L Critically low 136-145 [facility] Comment on above: Performed By: #### C MP #### [facility] [address] [place] [address] [address] Wyatt Aldrich Urea nitrogen [Mass/Vol] 15.0 mg/dL Normal 7.0-18.0 [facility] Comment on above: Performed By: #### C MP #### [facility] [address] [place] [address] Dr. Wyatt Aldrich Urea nitrogen/Creatinine [Mass ratio] 14.4 mg/mg Normal [facility] Comment on above: Performed By: #### C MP #### [facility] [address] [place] [address] Dr. Wyatt Aldrich URINE MICROSCOPIC ONLYon BACTERIA NONE SEEN Normal NONE SEEN [facility] Comment on above: Performed By: #### U MICRO, ERUR #### [facility] [address] [place] [address] Dr. Wyatt Aldrich Bacteria identified Cx Nom (U) NOT INDICATED Normal [facility] Comment on above: Performed By: #### U MICRO, ERUR #### [facility] [address] [place] [address] Dr. Wyatt Aldrich CAST NONE SEEN Normal NONE SEEN [facility] Comment on above: Performed By: #### U MICRO, ERUR #### [facility] [address] [place] [address] Dr. Wyatt Aldrich Crystals LM Nom (Urine sed) NONE SEEN Normal NONE SEEN [facility] Comment on above: Performed By: #### U MICRO, ERUR #### [facility] [address] [place] [address] Dr. Wyatt Aldrich Epithelial cells LM Ql (Urine sed) NONE SEEN Normal NONE SEEN /RARE [facility] Comment on above: Performed By: #### U MICRO, ERUR #### [facility] [address] [place] [address] Dr. Wyatt Aldrich MUCOUS NONE SEEN Normal NONE SEEN [facility] Comment on above: Performed By: #### U MICRO, ERUR #### [facility] [address] [place] [address] Dr. Wyatt Aldrich RBC 2-5 Abnormal 0-2 [facility] Comment on above: Performed By: #### U MICRO, ERUR #### [facility] [address] [place] [address] [address] Wyatt Aldrich WBC NONE SEEN Normal NONE SEEN [facility] Comment on above: Performed By: #### U MICRO, ERUR #### [facility] [address] [place] [address] [address] Wyatt Aldrich T4 LABCORPon 01-29-2022 T4 [Mass/Vol] 9.1 ug/dL Normal 4.5-12.0 [facility] Comment on above: Performed By: #### T 4LC ####[facility] [address] [place] [address]Dr. Wyatt Aldrich CBC AUTO DIFFon 01-28-2022 BASO # 0.1 103/ul Normal 0.0-0.1 [facility] Comment on above: Performed By: #### C BC ####[facility] [address] [place], [place] [address]DrCullen Aldrich Basophils/100 WBC (Bld) 0.6 % Normal 0.2-2.0 [facility] Comment on above: Performed By: #### C BC ####[facility] [address] [place], [place] [address]Dr. Wyatt Aldrich EO # 0.2 103/ul Normal 0.0-0.7 [facility] Comment on above: Performed By: #### C BC ####[facility] [address] [place], [place] [address]DrCullen Aldrich Eosinophils/100 WBC (Bld) 2.4 % Normal 0.9-7.0 [facility] Comment on above: Performed By: #### C BC ####[facility] [address] [place], [place] [address]DrCullen Aldrich Erythrocyte distribution width (RBC) [Ratio] 12.5 % Normal 11.0-15.0 [facility] Comment on above: Performed By: #### C BC ####[facility] [address] [place], [place] [address]DrCullen Aldrich Hematocrit (Bld) [Volume fraction] 43.5 % Normal 42.0-54.0 [facility] Comment on above: Performed By: #### C BC ####[facility] [address] [place] [address]DrCullen Aldrich Hemoglobin (Bld) [Mass/Vol] 14.4 g/dL Normal 14.0-18.0 [facility] Comment on above: Performed By: #### C BC ####[facility] [address] [place] [address]Dr. Wyatt Aldrich IG # 0.03 10e3/ul Normal 0.00-0.03 [facility] Comment on above: Performed By: #### C BC ####[facility] [address] [place], [place] [address]DrCullen Aldrich IG % 0.4 % Normal 0.0-0.5 [facility] Comment on above: Performed By: #### C BC ####[facility] [address] [place], [place] [address]DrCullen Aldrich LYMPH # 2.1 103/ul Normal 1.2-3.8 [facility] Comment on above: Performed By: #### C BC ####[facility] [address] [place], [place] [address]DrCullen Aldrich Lymphocytes/100 WBC (Bld) 24.8 % Normal 20.5-60.0 [facility] Comment on above: Performed By: #### C BC ####[facility] [address] [place] [address]DrCullen Aldrich MANUAL DIFF REQ NO Normal [facility] Comment on above: Performed By: #### C BC ####[facility] [address] [place] [address]DrCullen Aldrich MCH (RBC) [Entitic mass] 30.6 pg Normal 25.9-34.0 [facility] Comment on above: Performed By: #### C BC ####[facility] [address] [place] [address]DrCullen Aldrich MCHC (RBC) [Mass/Vol] 33.1 g/dL Normal 29.9-35.2 [facility] Comment on above: Performed By: #### C BC ####[facility] [address] [place] [address]DrCullen Wyatt Valdemar MCV (RBC) [Entitic vol] 92.6 fL Normal 80.0-94.0 [facility] Comment on above: Performed By: #### C BC ####[facility] [address] [place] [address]DrCullen Aldrich MONO # 0.6 103/ul Normal 0.3-0.8 [facility] Comment on above: Performed By: #### C BC ####[facility] [address] [place] [address]DrCullen Aldrich Monocytes/100 WBC (Bld) 7.7 % Normal 1.7-12.0 [facility] Comment on above: Performed By: #### C BC ####[facility] [address] [place], [place] [address]Dr. Wyatt Aldrich NEUT # 5.3 103/ul Normal 1.4-6.5 [facility] Comment on above: Performed By: #### C BC ####[facility] X[address] [place], [place] [address]Dr. Wyatt Aldrich Neutrophils/100 WBC (Bld) 64.1 % Normal 43.0-75.0 [facility] Comment on above: Performed By: #### C BC ####[facility] [address] [place] [address]DrCullen Aldrich Platelet mean volume (Bld) [Entitic vol] 9.4 fL Critically low 9.5-13.5 [facility] Comment on above: Performed By: #### C BC ####[facility] [address] [place], [place] [address]Dr. Wyatt Aldrich PLT 280 103/ul Normal 150-450 [facility] Comment on above: Performed By: #### C BC ####[facility] [address] [place] [address]Dr. Wyatt Aldrich RBC 4.70 106/ul Normal 4.70-6.10 [facility] Comment on above: Performed By: #### C BC ####[facility] [address] [place] [address]Dr. Wyatt Aldrich WBC 8.3 103/ul Normal 4.0-11.0 [facility] Comment on above: Performed By: #### C BC ####[facility] [address] [place] [id number]. Wyatt Aldrich FREE T3on 01-28-2022 FREE T3 2.70 pg/mlL Normal 2.18-3.98 [facility] Comment on above: Performed By: #### L IPID, CMP, TSH, FT3 ####[facility] [address] [place] [address]Dr. Wyatt Aldrich GLYCOHEMOGLOBIN A1Con 2021 ADA RECOMMENDATION SEE BELOW Normal [facility] Comment on above: Result Comment: ADA RECOMMENDED LIMIT 4.0 - 6.0 ADA THERAPEUTIC TARGET < 7.0 ACTION SUGGESTED > 7.0 Performed By: #### A 1C #### [facility] [address] [address] [address] Wyatt Aldrich Glucose [Mass/Vol] 143 mg/dL Normal [facility] Comment on above: Performed By: #### A 1C #### [facility] [address] [address] [address] Wyatt Aldrich HbA1c (Bld) [Mass fraction] 6.6 % Critically high 4.5-6.2 [facility] Comment on above: Performed By: #### A 1C #### [facility] [address] [address] [address] Wyatt Aldrich LIPID PROFILEon 01-28-2022 CHOL-HDL RATIO NORM SEE BELOW Normal [facility] Comment on above: Result Comment: 3.3 - 4.4 LOW RISK 4.4 - 7.1 AVERAGE RISK 7.1 - 11.0 MODERATE RISK >11.0 HIGH RISK Performed By: #### L IPID, CMP, TSH, FT3 ####[facility] [address] [address]Dr. Wyatt Aldrich Cholesterol [Mass/Vol] 176 mg/dL Normal <=200 [facility] Comment on above: Performed By: #### L IPID, CMP, TSH, FT3 ####[facility] [address] [address]Dr. Wyatt Aldrich Cholesterol in HDL [Mass/Vol] 35 mg/dL Critically low 40-60 [facility] Comment on above: Performed By: #### L IPID, CMP, TSH, FT3 ####[facility] [address] [address]Dr. Wyatt Aldrich Cholesterol in LDL [Mass/Vol] 94.4 mg/dL Normal [facility] Comment on above: Performed By: #### L IPID, CMP, TSH, FT3 ####[facility] [address] [address]Dr. Wyatt Aldrich Cholesterol.total/Ch olesterol in HDL [Mass ratio] 5.0 {ratio} Normal [facility] Comment on above: Performed By: #### L IPID, CMP, TSH, FT3 ####[facility] [address] [address]Dr. Wyatt Aldrich HDL NORMAL > or = 60 mg/dl - LO W CARDIOVASCULAR RISK <40 mg/dl - HIGH CARDIOVASCULAR RISK Normal [facility] Comment on above: Performed By: #### L IPID, CMP, TSH, FT3 ####[facility] [address] [address]Dr. Wyatt Aldrich LDL CALC NORMAL SEE BELOW Normal [facility] Comment on above: Result Comment: <100 mg/dl OPTIMAL 100 - 129 mg/dl NEAR OR ABOVE OPTIMAL 130 - 159 mg/dl BORDERLINE HIGH 160 - 189 mg/dl HIGH >190 mg/dl VERY HIGH Performed By: #### L IPID, CMP, TSH, FT3 ####[facility] [address] [address]Dr. Wyatt Aldrich Triglyceride [Mass/Vol] 233 mg/dL Critically high <=150 [facility] Comment on above: Performed By: #### L IPID, CMP, TSH, FT3 ####[facility] [address] [address]Dr. Wyatt Aldrich VLDL CALC 46.6 mg/dL Normal [facility] Comment on above: Performed By: #### L IPID, CMP, TSH, FT3 ####[facility] [address] [address]Dr. Wyatt Aldrich OCC BLD IMMUNO SCREENon 01-03 OCCULT BLOOD Negative Normal NEGATIVE [facility] Comment on above: Performed By: #### O BSCRN #### [facility] [address] [address] [address] Wyatt Aldrich PROF 14(COMP METB)on 022 Albumin [Mass/Vol] 3.4 g/dL Normal 3.4-5.0 [facility] Comment on above: Performed By: #### L IPID, CMP, TSH, FT3 ####[facility] [address] [address]Dr. Wyatt Aldrich Albumin/Globulin [Mass ratio] 1.0 {ratio} Normal [facility] Comment on above: Performed By: #### L IPID, CMP, TSH, FT3 ####[facility] [address] [address]Dr. Wyatt Aldrich ALP [Catalytic activity/Vol] 65 U/L Normal 46-116 [facility] Comment on above: Performed By: #### L IPID, CMP, TSH, FT3 ####[facility] [address] [address]Dr. Wyatt Aldrich ALT [Catalytic activity/Vol] 45 U/L Normal 16-63 [facility] Comment on above: Performed By: #### L IPID, CMP, TSH, FT3 ####[facility] [address] [address]Dr. Wyatt Aldrich Anion gap [Moles/Vol] 9.7 mmol/L Normal [facility] Comment on above: Performed By: #### L IPID, CMP, TSH, FT3 ####[facility] [address] [address]Dr. Wyatt Aldrich AST [Catalytic activity/Vol] 20 U/L Normal 15-37 [facility] Comment on above: Performed By: #### L IPID, CMP, TSH, FT3 ####[facility] [address] [address]Dr. Wyatt Aldrich Bilirubin [Mass/Vol] 0.4 mg/dL Normal 0.2-1.0 [facility] Comment on above: Performed By: #### L IPID, CMP, TSH, FT3 ####[facility] [address] [address]Dr. Wyatt Aldrich Calcium [Mass/Vol] 8.5 mg/dL Normal 8.5-10.1 [facility] Comment on above: Performed By: #### L IPID, CMP, TSH, FT3 ####[facility] [address] [place], [place] [address]Dr. Wyatt Aldrich Chloride [Moles/Vol] 101 mmol/L Normal 98-107 [facility] Comment on above: Performed By: #### L IPID, CMP, TSH, FT3 ####[facility] [address] [place], [place] [address]Dr. Wyatt Aldrich CO2 [Moles/Vol] 33.3 mmol/L Critically high 21.0-32.0 [facility] Comment on above: Performed By: #### L IPID, CMP, TSH, FT3 ####[facility] [address] [address]Dr. Wyatt Aldrich Creatinine [Mass/Vol] 0.77 mg/dL Normal 0.70-1.30 [facility] Comment on above: Performed By: #### L IPID, CMP, TSH, FT3 ####[facility] [address] [address]Dr. Wyatt Aldrich EGFR-AF PAKISTANI >60 Normal >=60 [facility] Comment on above: Performed By: #### L IPID, CMP, TSH, FT3 ####[facility] [address] [address]Dr. Wyatt Aldrich EGFR-NON AF PAKISTANI >60 Normal >=60 [facility] Comment on above: Performed By: #### L IPID, CMP, TSH, FT3 ####[facility] [address] [address]Dr. Wyatt Aldrich Globulin (S) [Mass/Vol] 3.3 g/dL Normal [facility] Comment on above: Performed By: #### L IPID, CMP, TSH, FT3 ####[facility] [address] [address]Dr. Wyatt Aldrich Glucose [Mass/Vol] 137 mg/dL Critically high 74-106 [facility] Comment on above: Performed By: #### L IPID, CMP, TSH, FT3 ####[facility] [address] [place], [place] [address]Dr. Wyatt Aldrich Potassium [Moles/Vol] 4.0 mmol/L Normal 3.5-5.1 [facility] Comment on above: Performed By: #### L IPID, CMP, TSH, FT3 ####[facility] [address] [place], [place] [address]Dr. Wyatt Aldrich Protein [Mass/Vol] 6.7 g/dL Normal 6.4-8.2 [facility] Comment on above: Performed By: #### L IPID, CMP, TSH, FT3 ####[facility] [address] [place], [place] [address]Dr. Wyatt Aldrich Sodium [Moles/Vol] 140 mmol/L Normal 136-145 [facility] Comment on above: Performed By: #### L IPID, CMP, TSH, FT3 ####[facility] [address] [place], [place] [address]Dr. Wyatt Aldrich Urea nitrogen [Mass/Vol] 13.0 mg/dL Normal 7.0-18.0 [facility] Comment on above: Performed By: #### L IPID, CMP, TSH, FT3 ####[facility] [address] [place], [place] [address]Dr. Wyatt Aldrich Urea nitrogen/Creatinine [Mass ratio] 16.9 mg/mg Normal [facility] Comment on above: Performed By: #### L IPID, CMP, TSH, FT3 ####[facility] [address] [place], [place] [address]Lk. Wyatt Aldrich TSHon 01-28-2022 TSH 5.562 uIU/mL Critically high 0.358-3.740 [facility] Comment on above: Performed By: #### L IPID, CMP, TSH, FT3 ####[facility] [address] [place], [place] [address]Lh. Wyatt Aldrich TSH RANGE SEE BELOW Normal [facility] Comment on above: Result Comment: <0.3 4 UIU/ml HYPERTHYROID 0.34-5.60 UIU/ml EUTHYROID >5.60 UIU/ml HYPOTHYROID Performed By: #### L IPID, CMP, TSH, FT3 ####[facility] [address] [place], [place] [address]Pm. Wyatt Aldrich XR KUB 1 VIEWon 01-20-2022 [...] MAN[place]OR [place] Date: 2022-01-20 14:12 Normal [facility] MRI LSPINE WO W CONon 2021 [...] levels of foraminal stenosis secondary to disc protrusion/osteophytosi s described. Electronically authenticated by: TANISHA CHIU Date: 2021-10-04 11:23 Normal [facility] XR LSPINE MIN 4 VIEWSon 09-05 XR [...] 11:31 Normal [facility] Vital Signs Date Time Vital Sign Value Performing Clinician Jessi chowdhury 04-23-2025 10:28-0400 Body weight 161.2 kg Asim Fernandez MD Work Phone: [facility] 03-19-2025 09:07-0400 Body height 187.96 cm Asim Fernandez MD Work Phone: [facility] 03-19-2025 09:07-0400 Body mass index (BMI) [Ratio] 46.2 kg/m2 Asim Fernandez MD Work Phone: [facility] 03-19-2025 09:07-0400 Body weight 163.2 kg Asim Fernandez MD Work Phone: [facility] 03-04-2025 08:41-0400 Body height 187.96 cm Asim Fernandez MD Work Phone: [facility] 03-04-2025 08:41-0400 Body mass index (BMI) [Ratio] 45.6 kg/m2 Asim Fernandez MD Work Phone: [facility] 03-04-2025 08:41-0400 Body weight 161.3 kg Asim Fernandez MD Work Phone: [facility] 01-30-2025 10:28-0400 Body weight 164.9 kg Asim Frenandez MD Work Phone: [facility] 12-26-2024 08:29-0400 Body weight 164 kg [facility] 10-29-2024 08:25-0500 Blood Pressure Location Michele RAYGOZA [facility] [place] 10-29-2024 08:25-0500 Diastolic blood pressure 72 mm[Hg] Michele RAYGOZA [facility] [place] 10-29-2024 08:25-0500 Heart rate 64 /min Michele RAYGOZA [facility] 10-29-2024 08:25-0500 Respiratory rate 16 /min Michele RAYGOZA [facility] [place] 10-29-2024 08:25-0500 Systolic blood pressure 129 mm[Hg] Michele NILL [facility] [place] 09-10-2024 09:50-0500 Diastolic blood pressure 78 mm[Hg] Zena Orzech [facility] 09-10-2024 09:50-0500 Mean blood pressure 99 mm[Hg] Zena Orzech [facility] 09-10-2024 09:50-0500 Systolic blood pressure 140 mm[Hg] Zena Orzech [facility] 09-10-2024 09:27-0500 Blood Pressure Location Zena Orzech [facility] 09-10-2024 09:27-0500 Body temperature 98.6 [degF] Zena Orzech [facility] 09-10-2024 09:27-0500 Diastolic blood pressure 96 mm[Hg] Zena Orzech [facility] 09-10-2024 09:27-0500 Heart rate 69 /min Zena Orzech [facility] 09-10-2024 09:27-0500 Systolic blood pressure 190 mm[Hg] Zena Orzech [facility] 06-11-2024 08:19-0400 Blood Pressure Location Porsche AKHTAR [facility] 06-11-2024 08:19-0400 Diastolic blood pressure 111 mm[Hg] Porsche AKHTAR [facility] 06-11-2024 08:19-0400 Heart rate 71 /min Porsche COOK [facility] 06-11-2024 08:19-0400 Systolic blood pressure 190 mm[Hg] Porsche COOK [facility] 06-06-2023 08:48-0400 Blood Pressure Location Porsche COOK [facility] 06-06-2023 08:48-0400 Diastolic blood pressure 66 mm[Hg] Porsche COOK [facility] 06-06-2023 08:48-0400 Heart rate 83 /min Porsche COOK [facility] 06-06-2023 08:48-0400 Systolic blood pressure 142 mm[Hg] Porsche COOK [facility] 06-17-2022 09:14-0400 Blood Pressure Location Porsche COOK [facility] 06-17-2022 09:14-0400 Diastolic blood pressure 96 mm[Hg] Porsche COOK [facility] 06-17-2022 09:14-0400 Heart rate 67 /min Porsche COOK [facility] 06-17-2022 09:14-0400 Systolic blood pressure 159 mm[Hg] Porsche COOK [facility] 06-10-2022 09:54-0400 Blood Pressure Location Porsche COOK [facility] 06-10-2022 09:54-0400 Diastolic blood pressure 102 mm[Hg] Porsche AKHTAR [facility] 06-10-2022 09:54-0400 Heart rate 68 /min Porsche AKHTAR [facility] 06-10-2022 09:54-0400 Systolic blood pressure 166 mm[Hg] Porsche AKHTAR [facility] 01-21-2022 08:44-0400 Blood Pressure Location Porsche AKHTAR [facility] [place] 01-21-2022 08:44-0400 Diastolic blood pressure 87 mm[Hg] Porsche AKHTAR [facility] 01-21-2022 08:44-0400 Heart rate 72 /min Porsche AKHTAR [facility] [place] 01-21-2022 08:44-0400 Systolic blood pressure 140 mm[Hg] Porsche AKHTAR [facility] Encounters Encounter Date Encounter Type Care Provider Facility Start: 04-23-2025 End: 04-23-2025 ambulatory Asim Fernandez MD Work Phone: [facility] Work Phone: Start: 04-23-2025 End: 04-23-2025 Patient encounter procedure Tanisha Ocampo [facility] Work Phone: Start: 04-09-2025 End: 04-09-2025 Patient encounter procedure Tanisha [place]campo [place] [place] Phone: Start: 04-09-2025 End: 04-09-2025 ambulatory Asim Fernandez MD Work Phone: [facility] Work Phone: Start: 04-09-2025 Non-patient / Non-visit Eyad Amaral MD -[facility] Work Phone: Start: 03-19-2025 End: 03-19-2025 ambulatory Asim Fernandez MD Work Phone: [facility] Work Phone: Start: 03-19-2025 End: 03-19-2025 Patient encounter procedure Tanisha Ocampo DO -[facility] Work Phone: Start: 03-18-2025 End: 03-18-2025 Patient encounter procedure Colleen Miles LOPEZN -CT [facility] [place] Work Phone: Start: 03-18-2025 End: 03-18-2025 ambulatory Asim Fernandez MD Work Phone: [facility] Work Phone: Start: 03-04-2025 End: 03-04-2025 ambulatory Asim Fernandez MD Work Phone: [facility] Work Phone: Start: 03-04-2025 End: 03-04-2025 Patient encounter procedure Colleen Aquino APRN -[facility] Work Phone: Start: 02-28-2025 End: 02-28-2025 Patient encounter procedure Colleen Aquino ZINC ETCHER -MRI [facility] [place] Work Phone: Start: 02-28-2025 End: 02-28-2025 ambulatory Asim Fernandez MD Work Phone: [facility] Work Phone: Start: 01-30-2025 End: 01-30-2025 ambulatory Asim Fernandez MD Work Phone: [facility] Work Phone: Start: 01-30-2025 End: 01-30-2025 Patient encounter procedure Asim Fernandez MD Work Phone: [facility] Work Phone: Start: 01-21-2025 End: 01-21-2025 Bamboo flowsheet Loi Benitez [facility] Start: 01-21-2025 End: 01-21-2025 Bamboo flowsheet Loi Benitez [facility] Start: 01-21-2025 End: 01-21-2025 ambulatory Loi Benitez [facility] Comment on above: Lumbar paraspinal mu scle spasm (Primary Dx); Cervical radiculopathy Start: 01-17-2025 End: 01-17-2025 Bamboo flowsheet Loi Gabriel [facility] Start: 01-17-2025 End: 01-17-2025 Bamboo flowsheet Loi Gabriel [facility] Start: 01-17-2025 End: 01-17-2025 ambulatory Loi Benitez [facility] Comment on above: Lumbar paraspinal mu scle spasm (Primary Dx); Cervical radiculopathy Start: 01-15-2025 End: 01-15-2025 Bamboo flowsheet Loi Benitez [facility] Start: 01-15-2025 End: 01-15-2025 Bamboo flowsheet Loi Benitez [facility] Start: 01-15-2025 End: 01-15-2025 ambulatory Loi Benitez [facility] Comment on above: Lumbar paraspinal mu scle spasm (Primary Dx); Cervical radiculopathy Start: 01-09-2025 End: 01-09-2025 Bamboo flowsheet Loi Gabriel [facility] Start: 01-09-2025 End: 01-09-2025 Bamboo flowsheet Loi Gabriel [facility] Start: 01-09-2025 End: 01-09-2025 ambulatory Loi Gabriel [facility] Comment on above: Lumbar paraspinal mu scle spasm (Primary Dx); Cervical radiculopathy Start: 01-07-2025 End: 01-07-2025 Bamboo flowsheet Michael Ram PT Work Phone: [facility] Start: 01-07-2025 End: 01-07-2025 Bamboo flowsheet Michael Escalanteton PT Work Phone: [facility] Start: 01-07-2025 End: 01-07-2025 ambulatory Michael Ram PT Work Phone: [facility] Comment on above: Lumbar paraspinal mu scle spasm (Primary Dx); Cervical radiculopathy Start: 01-01-2025 End: 01-01-2025 Bamboo flowsheet Michael Escalanteton PT Work Phone: [facility] Start: 01-01-2025 End: 01-01-2025 Bamboo flowsheet Michael Ram PT Work Phone: [facility] Start: 01-01-2025 End: 01-01-2025 ambulatory Michael Ram PT Work Phone: [facility] Comment on above: Lumbar paraspinal mu scle spasm (Primary Dx) Start: 12-26-2024 End: 12-26-2024 ambulatory Asim Fernandez MD Work Phone: [facility] Work Phone: Start: 12-26-2024 End: 12-26-2024 [facility]: Start: 12-09-2024 End: 12-09-2024 ambulatory Heather Turcios MD Facility:[facility] Start: 10-29-2024 End: 10-29-2024 ambulatory Michele RAYGOZA Facility:[facility] Start: 10-29-2024 End: 10-29-2024 Patient encounter procedure Michele RAYGOZA [facility] [place] Start: 10-18-2024 ambulatory Porsche AKHTAR Facility: [facility] Start: 09-10-2024 End: 09-10-2024 ambulatory Zena X Sole Facility:[facility] [place] Start: 09-10-2024 End: 09-10-2024 Patient encounter procedure Zena X Orzech [facility] [place] Start: 06-11-2024 End: 06-11-2024 ambulatory Porsche AKHTAR Facility: [place] Start: 06-11-2024 End: 06-11-2024 Patient encounter procedure Porsche AKHTAR [facility] [place] Start: 06-10-2024 End: 06-10-2024 ambulatory Heather Turcios MD Facility:[facility] Start: 02-19-2024 End: 02-19-2024 ambulatory Heather Turcios MD Facility:[facility] Start: 02-05-2024 End: 02-05-2024 ambulatory Heather Turcios MD Facility:[facility] Start: 06-06-2023 End: 06-06-2023 Patient encounter procedure Porsche AKHTAR [facility] [place] Start: 06-17-2022 End: 06-17-2022 Patient encounter procedure Porsche AKHTAR [facility] [place] Start: 06-16-2022 End: 06-17-[address] ASIM FERNANDEZ Facility: Start: 06-10-2022 End: 06-10-2022 Patient encounter procedure Porsche AKHTAR [facility] [place] Start: 06-09-2022 End: 06-10-[address] ASIM FERNANDEZ Facility:[facility] Start: 05-29-2022 End: 05-29-[address] ASIM FERNANDEZ Facility:[facility] Start: 05-11-2022 End: 05-11-2022 Patient encounter procedure Porsche AKHTAR [facility] Start: 02-03-2022 Encounter for genera l adult medical examination without abnormal findings DR ASIM FERNANDEZ [facility] Start: 01-28-2022 End: 01-29-[address] ASIM FERNANDEZ Facility:[facility] Start: 01-28-2022 End: 01-29-2022 Encounter for general adult medical examination without abnormal findings DR ASIM FERNANDEZ Facility:[facility] Start: 01-21-2022 End: 01-21-2022 Patient encounter procedure Porsche AKHTAR [facility] Start: 01-20-2022 End: 01-21-[address] ASIM FERNANDEZ Facility:[facility] Start: 10-04-2021 End: 10-05-[address] ASIM FERNANDEZ Facility:[facility] Start: 09-29-2021 End: 09-29-2021 ambulatory MARILU MURGUIA Facility:[facility] Start: 09-27-2021 End: 09-28-[address] ASIM FERNANDEZ Facility:[facility] Procedures Date Procedure Procedure Detail Performing Clinician Start: 03-18-2025 CT of lumbar spine w ithout contrast Asim Fernandez MD Work Phone: Start: 02-28-2025 MR lumbar spine wo con Asim Fernandez MD Work Phone: Start: 12-26-2024 X-ray of lumbar spin e, six views including bending views Asim Fernandez MD Work Phone: Start: 05-26-2022 Extracorporeal shock wave lithotripsy of calculus of kidney Porsche AKHTAR Start: 01-28-[address] WES FERNANDEZ Comment on above: Performed By: #### P SAD ####[facility] [address] [place], [place] [address]OcCullen Aldrich Start: 08-13-2020 Extracorporeal shock wave lithotripsy of calculus of kidney Porsche AKHTAR Start: 03-27-2019 Colonoscopy Michele NI LL Start: 02-02-2014 Colonoscopy Michele NI LL Start: 09-04-2004 Colonoscopy Michele NI LL Cholecystectomy Michele NILL Dental surgical procedure Gr poncho AKHTAR Drainage of perirect al abscess Michele NILL Entire gallbladder ( body structure) Porsche AKHTAR History of tonsillectomy Mitul viviana AKHTAR Incision of anal fistula Fuad hajimmy MAXWELLL Kidney stone (disorder) Gee AKHTAR l4 l5 disectomy Porsche AKHTAR carlo anal abcess Porsche Dowling Repair of anal fistula Marvel ry GIOVANA Tonsillectomy Michele ARYGOZA Plan of Treatment Date Care Activity Detail Author Start: 06-10-2025 ambulatory Ambulatory Facility:[facility] Start: 05-05-2025 Influenza vaccination Influenz a Vaccine (Season Ended) [facility] Start: 04-23-2025 Patient referral [facility] Work Phone: Start: 01-28-2025 End: 01-28-2025 ambulatory [facility] Start: 01-23-2025 End: 01-23-2025 ambulatory [facility] Start: 01-21-2025 End: 01-21-2025 ambulatory [facility] Start: 01-17-2025 End: 01-17-2025 ambulatory 01/17/2025 10:30 AM EDT Treatment [facility] [address] [place] [address] Loi Benitez PTA [facility] Start: 01-15-2025 End: 01-15-2025 ambulatory [facility] Comment on above: Arrived Start: 01-09-2025 End: 01-09-2025 ambulatory [facility] Comment on above: Arrived Start: 01-01-2025 End: 01-01-2025 ambulatory 01/01/2025 10:00 AM EDT Evaluation [facility] [address] [facility] [address] [place] [address] Michael Ram, PT [address] [facility] [address] [place] [address] Arrived [facility] Comment on above: Arrived Start: 12-26-2024 Patient referral [facility] Work Phone: Start: 1965 Screening for malign ant neoplasm of colon [facility] Electromyography [facility] Patient referral [facility] Work Phone: XR Lumbar spine Views [facility] Immunizations Immunization Date Immunization Notes Care Provider Mica biggs 04-19-2022 zoster vaccine recombinant Porsche AKHTAR [facility] 02-12-2022 pneumococcal 20-maría nt conjugate vaccine Porsche AKHTAR [facility] 02-03-2022 zoster vaccine recombinant Porsche AKHTAR [facility] 12-08-2020 SARS-CoV-2 (COVID-19 ) mRNA-[id number] vaccine Porsche AKHTAR [facility] 11-17-2020 SARS-CoV-2 (COVID-19 ) mRNA BNT-162b2 vax Porsche AKHTAR [facility] 11-11-2020 SARS-CoV-2 (COVID-19 ) mRNA-[id number] vaccine Porsche AKHTAR [facility] Payers Date Payer Category Payer Self-pay 2023 [facility] [id number] 2023 Private Health Insurance [id number] [id number]. 315 2023 Unknown 2023 Unknown [id number] 1965 Unknown [id number] 2.840.1.930282.3.57 9.2.593 1964 Unknown [id number] 2.16840.1.754046.3.57 9.2.593 1964 Unknown [id number] 2.16.840.1.703924.3.57 9.2.593 1964 Unknown [id number] 2.16.840.1.994477.3.57 9.2.593 1964 Unknown [id number] 2.16.840.1.586792.3.57 9.2.593 1964 Unknown [id number] 2.16.840.1.988198.3.57 9.2.593 1964 Unknown [id number] 2.16.840.1.764851.3.57 9.2.593 1964 Unknown [id number] 2.16.840.1.855642.3.57 9.2.593 1964 Unknown [id number] 2.16.840.1.216305.3.57 9.2.727 1964 Unknown [id number] 2.16840.1.560563.3.57 9.2.727 1964 Unknown [id number] 2.16.840.1.227157.3.57 9.2.727 1964 Unknown [id number] 2.16840.1.356963.3.57 9.2.727 1964 Unknown [id number] 2.16840.1.031520.3.57 9.2.196 1964 Unknown [id number] 2.840.1.402288.3.57 9.2.196 1964 Unknown [id number] 2.16840.1.183114.3.57 9.2.196 1964 Unknown [id number] 2.16840.1.660676.3.57 9.2.196 1964 Unknown [id number] 2.16840.1.873095.3.57 9.2.1259 1964 Unknown [id number] 2.840.1.619653.3.57 9.2.1259 1964 Unknown [id number] 2.16840.1.484472.3.57 9.2.1259 1964 Unknown [id number] 2.16840.1.738556.3.57 9.2.1259 1964 Unknown [id number] 2.16.840.1.330693.3.57 9.2.1259 1964 Unknown [id number] 2.16840.1.225151.3.57 9.2.1259 1959 Private Health Insurance [id number] Unknown [place] [id number] Unknown [id number] 2.16.840.1.132114.3.57 9.2.531 Unknown [id number] 2.16.840.1.409282.3.57 9.2.531 Unknown [id number] 2.16.840.1.674697.3.57 9.2.531 Unknown [id number] 2.16.840.1.055784.3.57 9.2.531 Social History Date Type Detail Facility Start: 01-15-2021 End: 12-26-2024 Tobacco smoking status Ex-smoker (finding) [facility] Tobacco smoking status Never [facility] [employer] Sex Assigned At Male [facility] Start: 12-26-2024 End: 01-30-2025 Sex Male (finding) [facility] Start: 1965 Sex Assigned At Male [facility] Tobacco smoking status NHIS Tobacco smoking consumption unknown [facility] Start: 1965 Sex assigned at Not on file [facility] Functional Status Date Assessment Result Facility 10-29-2024 Functional Status N/A [facility] General Surgery [place] 09-10-2024 Functional Status N/A [facility] 06-11-2024 Functional Status N/A [facility] 06-06-2023 Functional Status N/A [facility] 06-17-2022 Functional Status N/A [facility] 06-10-2022 Functional Status N/A [facility] Clinical Notes 01-21-2022 to 03-18-2025 Note Date & Type Note Facility 03-18-2025 Radiology Diagnostic study note [facility] [place] [address] [place] [address] CT Scan Report Signed Patient: Liz Hernandez MR#: [id number] : 1965 Acct:[id number] Age/Sex: 59 / M ADM Date: 5 Loc: CT Room: [facility] Attending Dr: Colleen Aquino APRN Copies to: Colleen Aquino APRN~ Ordering Provider: Colleen Aquino APRN Date of Service: 03/18/25 CT/CT lumbar spine wo con: M54.16 - Radiculopathy, lumbar region CT lumbar spine wo con 03/18/2025 8:43 AM History:Lower back pain, bilateral leg weakness, abnormal MRI TECHNIQUE: Multi detector CT axial slices of the lumbar spine were obtained without IV contrast. Volumetric acquisition sagittal, coronal, and 3-D reconstructions were performed and reviewed on a separate workstation. CT was performed with one or more of the following dose reduction techniques: Automatedexposure control, adjustment of the mA and/or kV according to patient size, or use of iterative reconstruction technique. COMPARISON: MRI lumbar spine 02/28/2025 FINDINGS: There is preservation of the vertebral body heights. Mild levocurvature. Moderate severe intervertebral space narrowing narrowing with vacuum disc phenomenon L5-S1 and L2-L3. Pffo-nj-jeddsgsw intervertebral space narrowing with mediastinal L3-L5. Multilevel moderate severe facet arthropathy greatest L4-S1. No fracture malalignment multilevel central canal and foraminal encroachment is better evaluated on recent MRI. CT/CT lumbar spine wo con IMPRESSION: Moderate severe multilevel degenerative changes. Negative acute fracture or malalignment Impression dictated by: Christopher Mendes M.D. 03/18/2025 9:20 AM Dictation Location: [place] [address] Transcribed By: [facility] 03/18/25919 Dictated By: Christopher Mendes MD 03/18/2516 Signed By: 03/18/25919 [facility] Work Phone: 01-30-2025 Evaluation note Diagnosis Onset Date Resolution Left lumbar radiculopathy acute January 30, 2025 10:28am Neurogenic claudication acute M ay 2024 10:28am Numbness and tingling of foot acute January 30, 2025 10:28am Left lumbar radiculopathy acute March 04, 2025 8:35am Neurogenic claudication acute J orlin2024 8:35am Numbness and tingling of foot acute March 04, 2025 8:35am Severe back pain acute March 9:02am [facility] Work Phone: 1(179) 686-447305-29-2025 Evaluation note* Diagnosis Onset Date Resolution Status Admit Date Left lumbar radiculopathy acute January 30, 2025 10:28am Neurogenic claudication acute M 2024 10:28am Numbness and tingling of foot acute January 30, 2025 10:28am Left lumbar radiculopathy acute March 04, 2025 8:35am Neurogenic claudication acute J 2024 8:35am Numbness and tingling of foot acute March 04, 2025 8:35am Severe back pain acute March 9:02am Left lumbar radiculopathy acute April 23, 2025 10:24am [facility] Work Phone: 1(718) 803-510805-06-2025 History of Present illness Narrative* Michael Ram, PT - 01/07/2025 10:00 AM EDT Images from the original note were not included. Physical Therapy Treatment Visit Patient Name: Lzi Hernandez Today's Date: 01/07/2025 Encounter Diagnoses Name Primary? Lumbar paraspinal muscle spasm Yes Cervical radiculopathy Visit number: 2 Timed Code Treatment Minutes: 30 minutes Total Treatment Time: 50 minutes Time In: 1000 Time Out: 1050 History: Pt. Presents to PT with c/c of left lumbar radiculopathy which has going on for a long time. Pt. Tired PT last year but did not help. Then seen pain management has injection but only helped for 6 months. Pt reports last year he did not have radicular symptoms down LE but now he has N/T down left LE with is affecting his quality of life. Numbness from knee down and feels his leg is going to give out. Pt has difficulty finding a comfortable place to sit/stand/walk, etc due to back and Left LE. 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 Precautions: history of disectomy Subjective: pt. Reports of no change in his back pain. Has left LE numbness. Pain: 4-5/10 most of the day; motrin helps to decrease pain to 2/10 Objective: PT Evaluation (01/01/25) Lumbar AROM: grossly decreased in all planes due to pain Flexibility: left lumbar paraspinal muscle tightness, left hamstring/piriformis muscle tightness Joint: moderate hypomobility at L4/L5/S1 segment Strength: grossly 5/5 in all planes Palpation: TTP left lumbar paraspinal muscle at L4/L5/S1 Treatment: PT evaluation Education: HEP education with demonstration, Educated on Eval Findings and POC Manual Therapy: (26 minutes) prone: lumbar PA mob, MFR to lumbar paraspinal, lumbar gapping, Passive ROM, Joint mobilization, Soft Tissue Mobilization, Myofascial Release, Muscle Energy Technique, Neural Mobilization, Myofascial Cupping, Dry Needling, IASTM, and Scar mobilization Therapeutic Exercise: Strength, Endurance, Flexibility, ROM, HEP, Neural Mobilization, Power, and Core Stability Therapeutic Activity: Exercises to improve dynamic activities, functional tasks, functional mobility to return to prior activity level Neuromuscular re-education: Balance Training, Muscle Facilitation, Dynamic Stability, Core Stabilization, and Blood Flow Restriction Training (BFRT) Modalities: (15 minutes) prone: IFC with ice to lumbar spine; Heat, Ice, Electrical Stimulation, Ultrasound, Cervical Mechanical Traction, Lumbar Mechanical Traction, Iontophoresis, and Fluidotherapy Assessment: Pt has participated in 2 PT session with start of POC on 01/01/25. Pt. Will benefit from skilled PTservices. PT treatment to focus on decrease pain and improve disc mobility. Pt. Continues demonstrate HNP disc symptoms affecting his quality of life. Outcome Measure: in chart Short Term Goal: To be met in 2 weeks Goal 1: Pt to be instructed in home exercise program. Shelter Goals: To be met in 10 weeks Goal 1: Pt to report independence and compliance with home program. Goal 2: Pt. Will report of 0/10 low back pain while performing daily tasks to help improve his quality of life. Goal 3: Pt. Will demonstrate normal lumbar paraspinal muscle flexibility to help decrease pain to help improve his quality of life. Goal 4: Pt. Will demonstrate normal lumbar spine joint mobility to help decrease pain. Plan: Will try 6 visits of PT, if no improvement recommend MRI. Pt will benefit from skilled PT for 1-3x/week from 01/01/25 to 03/12/25 to address the above impairments. I hereby deem this POC medically necessary. Please sign below. Date: [id number] History of Present illness Narrative* Michael aRm, PT - 01/01/2025 10:00 AM EDT Images from the original note were not included. Physical Therapy Evaluation Visit Patient Name: Liz Hernandez Today's Date: 01/01/2025 Encounter Diagnoses Name Primary? Lumbar paraspinal muscle spasm Yes Visit number: 1 Timed Code Treatment Minutes: 40 minutes Total Treatment Time: 60 minutes Time In: 1000 Time Out: 1100 History: Pt. Presents to PT with c/c of left lumbar radiculopathy which has going on for a long time. Pt. Tired PT last year but did not help. Then seen pain management has injection but only helped for 6 months. Pt reports last year he did not have radicular symptoms down LE but now he has N/T down left LE with is affecting his quality of life. Numbness from knee down and feels his leg is going to give out. Pt has difficulty finding a comfortable place to sit/stand/walk, etc due to back and Left LE. 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 Precautions: history of disectomy Subjective: Pain: 4-5/10 most of the day; motrin helps to decrease pain to 2/10 Objective: PT Evaluation (01/01/25) Lumbar AROM: grossly decreased in all planes due to pain Flexibility: left lumbar paraspinal muscle tightness, left hamstring/piriformis muscle tightness Joint: moderate hypomobility at L4/L5/S1 segment Strength: grossly 5/5 in all planes Palpation: TTP left lumbar paraspinal muscle at L4/L5/S1 Treatment: PT evaluation (20 minutes) Education: HEP education with demonstration, Educated on Eval Findings and POC Manual Therapy: (16 minutes) prone: lumbar PA mob, MFR to lumbar paraspinal, lumbar gapping, Passive ROM, Joint mobilization, Soft Tissue Mobilization, Myofascial Release, Muscle Energy Technique, Neural Mobilization, Myofascial Cupping, Dry Needling, IASTM, and Scar mobilization Therapeutic Exercise: Strength, Endurance, Flexibility, ROM, HEP, Neural Mobilization, Power, and Core Stability Therapeutic Activity: Exercises to improve dynamic activities, functional tasks, functional mobility to return to prior activity level Neuromuscular re-education: Balance Training, Muscle Facilitation, Dynamic Stability, Core Stabilization, and Blood Flow Restriction Training (BFRT) Modalities: (15 minutes) prone: IFC with ice to lumbar spine; Heat, Ice, Electrical Stimulation, Ultrasound, Cervical Mechanical Traction, Lumbar Mechanical Traction, Iontophoresis, and Fluidotherapy Assessment: Pt has participated in 1 PT session with start of POC on 01/01/25. Pt. Will benefit from skilled PTservices. PT treatment to focus on decrease pain and improve disc mobility. Outcome Measure: in chart Short Term Goal: To be met in 2 weeks Goal 1: Pt to be instructed in home exercise program. Shelter Goals: To be met in 10 weeks Goal 1: Pt to report independence and compliance with home program. Goal 2: Pt. Will report of 0/10 low back pain while performing daily tasks to help improve his quality of life. Goal 3: Pt. Will demonstrate normal lumbar paraspinal muscle flexibility to help decrease pain to help improve his quality of life. Goal 4: Pt. Will demonstrate normal lumbar spine joint mobility to help decrease pain. Plan: Will try 6 visits of PT, if no improvement recommend MRI. Pt will benefit from skilled PT for 1-3x/week from 01/01/25 to 03/12/25 to address the above impairments. I hereby deem this POC medically necessary. Please sign below. Date: documented in this [facility]04-24-2025 Evaluation note* Diagnosis Onset Date Resolution Status Admit Date Left lumbar radiculopathy acute December 26, 2024 8:28am Numbness and tingling of foot acute December 26, 2024 8:28am [facility] Work Phone: 1(728) 361-832904-24-2025 Evaluation note* Diagnosis Onset Date Resolution Status Admit Date Left lumbar radiculopathy acute December 26, 2024 8:28am Numbness and tingling of foot acute December 26, 2024 8:28am Left lumbar radiculopathy acute January 30, 2025 10:28am Neurogenic claudication acute M ay 2024 10:28am Numbness and tingling of foot acute January 30, 2025 10:28am [facility] Work Phone: 1(557) 916-811204-24-2025 Evaluation note* Diagnosis Onset Date Resolution Status Admit Date Left lumbar radiculopathy acute December 26, 2024 8:28am Numbness and tingling of foot acute December 26, 2024 8:28am Left lumbar radiculopathy acute January 30, 2025 10:28am Neurogenic claudication acute M ay 2024 10:28am Numbness and tingling of foot acute January 30, 2025 10:28am Left lumbar radiculopathy acute March 04, 2025 8:35am Neurogenic claudication acute J 2024 8:35am Numbness and tingling of foot acute March 04, 2025 8:35am [facility] Work Phone: 1(781) 584-630102-25-2025 NoteGeneral Surgery Office/Clinic Note Chief Complaint consultation for positive occult [...] positive fecal occult blood test; denies change inbms or gross blood in stools; no abd [...] swallowing difficulties, no hearing loss, no ear infection(s),no nose bleeds. Cardiovascular: normal blood pressure, no [...] tab(s), Oral, Alexus (more content not included)... [facility] Comment: Electronically Signed By: JARET CANTOR, Michele Campbell\Date and Time Signed: 10/29/24 08:56 EST 09-10-2024 Hospital Discharge instructions Patient Education 09/10/2024 09:53:34 Kidney Stones, Qrlk-oz-Rzbt Kidney Stones Kidney stones are rock-like masses [...] Follow these instructions at home: Medicines Take kxag-frk-fttfcpz and prescription medicines only as told by [...] provider. Document Revised: 04/14/2023 Document Reviewed: 04/14/2023 [employer] Patient Education 2023 [employer]. Follow Up Care 08/15/2024 10:52:33 With:GIOVANA CANTOR, Porsche Kwan, URL Address: [facility] [address] [place] [id number]- When: Unknown [facility] [phone] NotePatient Education Urology Kidney Stones Kidney stones are [...] these instructions at home: Medicines ??? Take zfhf-kel-oykdnqd and prescription medicines only as told by [...] provider. Document Revised: 04/14/2023 Document Reviewed: 04/14/2023 [employer] Patient Education ? 2023 [employer].[facility] 06-11-2024 Hospital Discharge instructions Patient Education 06/11/2024 08:29:42 24-Hour Urine Collection 24-Hour Urine Collection Why am I having this test? A 24-hour urine specimen is a lab test that requires you to collect all of your urine for an entireday. This is sometimes called a timed urine test. It can provide more information than a single urine sample. There are many reasons to have this test. Your health care provider may order the test to check foror monitor the following conditions: High blood pressure. Kidney disease. Kidney stones. Urinary tract infections. . Diabetes. How do I prepare for this test? You may be asked to follow a special diet during or before the collection period. Follow any instructions from your health care provider. If no special instructions are given, you may eat and drink normally. Take ttou-nqg-dbyejwx and prescription medicines only as told by your health care provider. Let your health care provider know about any medicines that you are taking, including ohiw-wgo-hlvrgik medicines, vitamins, herbs, and supplements. Choose a [...] is okay. Do not throw out the liquidor rinse out the jug. Urinate into a [...] collect all of your urine for an entireday. When you get up in the morning, [...] provider. Document Revised: 02/25/2022 Document Reviewed: 02/25/2022 [employer] Patient Education 2023 [employer]. 06/11/2024 08:23:10 Dietary Guidelines to Help Prevent [...] about 300 mg of calcium at each meal.Foods that contain 200 500 mg of calcium a serving include: ?8 oz (237 mL) of milk, fqnxplv-dyqyhazfefnj-ikwkr milk, and calcium- fortifiedfruit juice. Calcium-fortified means that calcium has been [...] the table and allow each person to addtheir own salt to taste. Use vegetable protein, such as beans, textured vegetable protein (TVP), or tofu, instead of meat inpasta, casseroles, and soups. Meal planning Eat less salt, if told by your dietitian. To do this: ?Avoid eating processed or pre-made food. ?Avoid eating fast food. Eat less animal protein, including cheese, meat, poultry, or fish, if told by your dietitian. To dothis: ?Limit the number of times you have meat, poultry, fish, or cheese each week. Eat a diet free of meat at least 2 days a week. ?Eat only one serving each day of meat, poultry, fish, or seafood. ?When you prepare animal proteins, cut pieces into small portion sizes. For most meat and fish, oneserving is about the size of the palm [...] ?Spinach (cooked), rhubarb, beets, sweet potatoes, and [place] chard. ?Peanuts. ?Potato chips, arabic fries, and baked potatoes with skin on. ?Nuts and nut products. ?Chocolate. If you regularly take a diuretic medicine, make sure to eat at least 1 or 2 servings of fruits or vegetables that are high in potassium each day. These include: ?Avocado. ?Banana. ?Grant, prune, carrot, or tomato juice. ?Baked potato. [...] magnesium, fish oil, or vitamin B6. Take bffo-spv-trsdtvx and prescription medicines only as told by [...] Casseroles. Pizza. Lasagna. Frozen meals. Potato chips. [place]ambican fries. The items listed above may not be a complete list of foods and beverages you should limit. Contact a dietitian for more information. What foods should I avoid? Talk to your dietitian about specific foods you should avoid based on the type of kidney stones youhave and your overall health. Fruits Grapefruit. The item listed above may not be a complete list of foods and beverages you should avoid. Contact adietitian for more information. Summary Kidney stones are [...] provider. Document Revised: 12/01/2022 Document Reviewed: 12/01/2022 [employer] Patient Education 2023 [employer]. Follow Up Care 06/06/2023 09:30:15 With:GIOVANA CANTOR, Porsche Kwan, URL Address: [facility] [address] [place] [id number]- When: Unknown [facility] Andrew [phone] NotePatient Education Nephrology Dietary Guidelines to Help Prevent [...] ? 8 oz (237 mL) of milk, qlohgsn-odigglqlvqqe-vdgor milk, and calcium- fortifiedfruit juice. Calcium-fortified means that calcium has been [...] Spinach (cooked), rhubarb, beets, sweet potatoes, and [place] chard. ? Peanuts. ? Potato chips, arabic fries, and baked potatoes with skin on. ? Nuts and nut products. ? Chocolate. ? If you regularly take a diuretic medicine, make sure to eat at least 1 or 2 servings of fruits orvegetables that are high in potassium each day. These include: ? Avocado. ? Banana. ? Grant, prune, carrot, or tomato juice. ? Baked [...] with your dietitian to find an eating planand weight loss strategies that work best for you. General information ? Talk to your health care provider and dietitian about taking daily supplements. Depending on yourhealth and the cause of your kidney stones, you may be told: ? Do not take high-dose supplements of vitamin C (1,000 mg a day or more). ? To take a calcium supplement. ? To take a daily probiotic supplement. ? To take other supplements such as magnesium, fish oil, or vitamin B6. ? Take aomi-wvr-bnmgnne and prescription medicines only as told by your health care provider. Theseinclude suppleme (more content not included)...[facility] Hospital Discharge instructions Patient Education 06/06/2023 09:26:04 [...] about 300 mg of calcium at each meal.Foods that contain 200 500 mg of calcium a serving include: ?8 oz (237 mL) of milk, ybehsrh-tryvwyfmuqqt-kioam milk, and calcium- fortifiedfruit juice. Calcium-fortified means that calcium has been [...] the table and allow each person to addhis or her own salt to taste. Use vegetable protein, such as beans, textured vegetable protein (TVP), or tofu, instead of meat inpasta, casseroles, and soups. Meal planning Eat less salt, if told by your dietitian. To do this: ?Avoid eating processed or pre-made food. ?Avoid eating fast food. Eat less animal protein, including cheese, meat, poultry, or fish, if told by your dietitian. To dothis: ?Limit the number of times you have [...] ?Spinach (cooked), rhubarb, beets, sweet potatoes, and [place] chard. ?Peanuts. ?Potato chips, arabic fries, and baked potatoes with skin on. ?Nuts and nut products. ?Chocolate. If you regularly take a diuretic medicine, make sure to eat at least 1 or 2 servings of fruits or vegetables that are high in potassium each day. These include: ?Avocado. ?Banana. ?Grant, prune, carrot, or tomato juice. ?Baked potato. [...] taking daily supplements. You may be told thefollowing depending on your health and the cause of your kidney stones: ?Not to take supplements with vitamin C. ?To take a calcium supplement. ?To take a daily probiotic supplement. ?To take other supplements such as magnesium, fish oil, or vitamin B6. Take yyjg-tmp-fpvxxab and prescription medicines only as told by [...] Casseroles. Pizza. Lasagna. Frozen meals. Potato chips. Mozambican fries. The items listed above may not be a complete list of foods and beverages you should limit. Contact a dietitian for more information. What foods should I avoid? Talk to your dietitian about specific foods you should avoid based on the type of kidney stones youhave and your overall health. Fruits Grapefruit. The item listed above may not be a complete list of foods and beverages you should avoid. Contact adietitian for more information. Summary Kidney stones are [...] provider. Document Revised: 05/02/2022 Document Reviewed: 05/02/2022 [employer] Patient Education 2022 [employer]. Follow Up Care 01/21/2022 09:03:45 With:GIOVANA CANTOR, Porsche Kwan, URL Address: [facility] [address] [place], [place] [id number]- When:Within 1 Year(s) Comments:Oksana [facility] Andrew [phone] Hospital Discharge instructions Patient Education 06/17/2022 09:35:20 [...] about 300 mg of calcium at each meal.Foods that contain 200 500 mg of calcium [...] Talk to your dietitian about how much calciumis recommended for you. Shopping Buy plenty of [...] the table and allow each person to addhis or her own salt to taste. Use [...] fish, if told by your dietitian. To dothis: ?Limit the number of times you have [...] include: ?Spinach. ?Rhubarb. ?Beets. ?Potato chips and arabic fries. ?Nuts. If you regularly take a diuretic medicine, make sure to eat at least 1 2 fruits or vegetables high in potassium each day. These include: ?Avocado. ?Banana. ?Grant, prune, carrot, or tomato juice. ?Baked potato. [...] fish. Salted or cured meats. Deli meats. Hotdogs. Sausages. Dairy Cheese. Beverages Regular soft drinks. Regular vegetable juice. Seasonings and other foods Seasoning blends with salt. Salad dressings. Canned soups. Soy sauce. Ketchup. Barbecue sauce. Canned pasta sauce. Casseroles. Pizza. Lasagna. Frozen meals. Potato chips. Mozambican fries. Summary You can reduce your risk of kidney stones by making changes to your diet. The most important thing you can do is drink enough fluid. You should drink enough fluid to keep your urine clear or pale yellow. Ask your health care provider or dietitian how much protein from animal sources you should eat eachday, and also how much salt and calcium you should have each day. This information is not intended to replace advice given to you by your health care provider. Make sure you discuss any questions you have with your health care provider. Document Released: 12/16/2011 Document Revised: 12/11/2019 Document Reviewed: 08/01/2017 [employer] Patient Education 2020 [employer] Follow Up Care 06/10/2022 10:24:22 With:GIOVANA CANTOR, Porsche Kwan, URL Address: [address] [address]- When:6 months Comments:w/ [place] [facility] 10-07-2022 Hospital Discharge instructions Patient Education 06/10/2022 09:56:18 [...] about 300 mg of calcium at each meal.Foods that contain 200 500 mg of calcium [...] Talk to your dietitian about how much calciumis recommended for you. Shopping Buy plenty of [...] the table and allow each person to addhis or her own salt to taste. Use [...] fish, if told by your dietitian. To dothis: ?Limit the number of times you have [...] include: ?Spinach. ?Rhubarb. ?Beets. ?Potato chips and arabic fries. ?Nuts. If you regularly take a diuretic medicine, make sure to eat at least 1 2 fruits or vegetables high in potassium each day. These include: ?Avocado. ?Banana. ?Grant, prune, carrot, or tomato juice. ?Baked potato. [...] fish. Salted or cured meats. Deli meats. Hotdogs. Sausages. Dairy Cheese. Beverages Regular soft drinks. Regular vegetable juice. Seasonings and other foods Seasoning blends with salt. Salad dressings. Canned soups. Soy sauce. Ketchup. Barbecue sauce. Canned pasta sauce. Casseroles. Pizza. Lasagna. Frozen meals. Potato chips. Mozambican fries. Summary You can reduce your risk of kidney stones by making changes to your diet. The most important thing you can do is drink enough fluid. You should drink enough fluid to keep your urine clear or pale yellow. Ask your health care provider or dietitian how much protein from animal sources you should eat eachday, and also how much salt and calcium you should have each day. This information is not intended to replace advice given to you by your health care provider. Make sure you discuss any questions you have with your health care provider. Document Released: 12/16/2011 Document Revised: 12/11/2019 Document Reviewed: 08/01/2017 [employer] Patient Education 2019 [employer]. Follow Up Care 05/30/2022 09:25:01 With:GIOVANA CANTOR, Porsche Kwan, URL Address: [address] [place] [address]- When:2 weeks Comments:KUB [facility] Andrew [id number] Hospital Discharge instructions Patient Education 01/21/2022 08:33:55 Benign Prostatic Hyperplasia Benign Prostatic Hyperplasia Benign prostatic hyperplasia (BPH) is an enlarged prostate gland that is caused by the normal agingprocess and not by cancer. The prostate is [...] urethra. Follow these instructions at home: Take eehm-ekf-zcywnsl and prescription medicines only as told by [...] 08/21/2006 Document Revised: 07/16/2019 Document Reviewed: 09/25/2017 [employer] Patient Education [employer]. Follow Up Care 01/15/2021 08:45:48 With:Porsche AKHTAR MD, URL Address: [facility] [place] [place] [address]- When:01/21/2023 Comments:with PSA and x-ray [facility] Evaluation + Plan note Future Appointments Appointment Date:02/24/2023 08:00:00 AM Scheduled Provider:Porsche AKHTAR MD Location:[facility] Appointment Type:URO Office Visit [facility] Evaluation + Plan note Future Appointments Appointment Date:02/24/2023 08:00:00 AM Scheduled Provider:Porsche AKHTAR MD Location:[facility] Appointment Type:URO Office Visit Future Scheduled Tests Laboratory* PT & PTT 04/20/22 * BUN 04/20/22 * Creatinine 04/20/22 * Electrolyte Panel 04/20/22 * CBC w/ Auto [facility]ments Appointment Date:06/17/2022 09:15:00 AM Scheduled Provider:Porsche AKHTAR MD Location:[facility] [place] Appointment Type:URO Office Visit Appointment Date:02/24/2023 08:00:00 AM Scheduled Provider:Porsche AKHTAR MD Location:[facility] [place] Appointment Type:URO Office Visit [facility] [place] evaluation + Plan note Future Appointments Appointment Date:06/11/2024 08:00:00 AM Scheduled Provider:Porsche AKHTAR MD Location:[facility] [place] Appointment Type:URO Office Visit [facility] [place] evaluation + Plan note Future Appointments Appointment Date:06/10/2025 08:00:00 AM Scheduled Provider:Porsche AKHTAR MD Location:[facility] Appointment Type:URO Office Visit [facility] [place] evaluation noteNo assessment information available [facility] Work Phone: evaluation note* Diagnosis Lumbar paraspinal muscle spasm- Primary Other symptoms referable to back [facility] Diagnosis Lumbar paraspinal muscle spasm- Primary Other symptoms referable to back Cervical radiculopathy Brachial neuritis or radiculitis nos documented [facility]* Diagnosis Lumbar paraspinal muscle spasm- Primary Other symptoms referable to back Cervical radiculopathy Brachial neuritis or radiculitis nos documented [facility]* Diagnosis Lumbar paraspinal muscle spasm- Primary Other symptoms referable to back Cervical radiculopathy Brachial neuritis or radiculitis nos documented [facility]* Diagnosis Lumbar paraspinal muscle spasm- Primary Other symptoms referable to back Cervical radiculopathy Brachial neuritis or radiculitis nos documented [facility]* Diagnosis Lumbar paraspinal muscle spasm- Primary Other symptoms referable to back Cervical radiculopathy Brachial neuritis or radiculitis nos documented [facility] Narrative No data available for this section [facility] [place] Hospital Discharge instructions No data available for this section [facility] instructions[facility] Orders* Referral to PT / OT / Speech (PT/OT/SP) Location: None [facility] Work Phone: Hospital Discharge instructionsAmbulatory Orders* Referral to Weight Management Location: None [facility] Work Phone: Progress note No data available for this section [facility])No reason for referral [facility] Work Phone: Reason for visit Narrative* Rehabilitation - Outpatient (Routine) - Pending Review Specialty Diagnoses / Procedures Referred By Cindy cyr Referred To Contact Physical Therapy Diagnoses Low back pain, unspecified Procedures [facility] PHYSICAL THERAPY EVALUATION LOW COMPLEX 20 MINS [place] OFFICE/OUTPATIENT NEW HIGH MDM 60 MINUTES Colleen Aquino MD [address] [address] Phone: tel: fax: Michael Ram, PT [address] [address] Phone: tel: fax: Referral ID Status Reason Start Date Expiration Date V isits Requested Visits Authorized [id number] Pending Review 01/01/2025 06/30/2025 2 2 [facility] HealthcareReason for visit Narrative* Rehabilitation - Outpatient (Routine) - Authorized Specialty Diagnoses / Procedures Referred By Cindy cyr Referred To Contact Physical Therapy Diagnoses Low back pain, unspecified Procedures [place] PHYSICAL THERAPY EVALUATION LOW COMPLEX 20 MINS [place] OFFICE/OUTPATIENT NEW HIGH MDM 60 MINUTES Colleen Aquino MD [address] [place] [address] Phone: tel: fax: Michael Ram, PT [address] [address] Phone: tel: fax: Referral ID Status Reason Start Date Expiration Date V isits Requested Visits Authorized [id number] Authorized 01/01/2025 03/03/2025 8 8 [facility] N[facility]* Rehabilitation - Outpatient (Routine) - Closed Specialty Diagnoses / Procedures Referred By Cindy cyr Referred To Contact Physical Therapy Diagnoses Low back pain, unspecified Procedures [place] PHYSICAL THERAPY EVALUATION LOW COMPLEX 20 MINS [place] OFFICE/OUTPATIENT NEW HIGH MDM 60 MINUTES Colleen Aquino MD 703 [facility] [address] [place] [address] Phone: tel: fax: Michael Ram, PT 112 [facility] [address] [place] [address] Phone: tel: fax: Referral ID Status Reason Start Date Expiration Date Visits Re quested Visits Authorized [id number] Closed 01/01/2025 03/03/2025 8 8 [facility] Summary Purpose Family History No Family History Records Found No data available for this section No data available for this section No data available for this section No data available for this section No Family History Records FoundNo Family History Records FoundNo Family History Records FoundNo Family History Records Found Advance Directives No Advanced Directives Records Found Advance Directive Response Recorded Date/ Time Advance Directives No December 11 4:51pm Chief Complaint and Reason for Visit Chief Complaint Admit Date BACK PAIN December 26, 2024 8:2 8am Chief Complaint Admit Date BACK PAIN December 26, 2024 8:2 8am M54.16 December 26, 2024 9:2 8am Reason for Visit Admit Date Left lumbar radiculopathy December 26 8:28am Numbness and tingling of foot December 8:28am Chief Complaint Admit Date BACK PAIN December 26, 2024 8:2 8am M54.16 December 26, 2024 9:2 8am f/u after 6 visits of pt January 30, 2025 10:28am Chief Complaint Admit Date BACK PAIN December 26, 2024 8:2 8am M54.16 December 26, 2024 9:2 8am f/u after 6 visits of pt January 30, 2025 10:28am M54.16 February 28, 2025 6:47 am Reason for Visit Admit Date Left lumbar radiculopathy December 26 8:28am Numbness and tingling of foot December 8:28am Left lumbar radiculopathy January 30, 2025 10:28am Neurogenic claudication January 30, 2025 1 0:28am Numbness and tingling of foot January 30, 2025 10:28am Chief Complaint Admit Date BACK PAIN December 26, 2024 8:2 8am M54.16 December 26, 2024 9:2 8am f/u after 6 visits of pt January 30, 2025 10:28am M54.16 February 28, 2025 6:47 am MRI results March 04, 2025 8:35a m Chief Complaint Admit Date BACK PAIN December 26, 2024 8:2 8am M54.16 December 26, 2024 9:2 8am f/u after 6 visits of pt January 30, 2025 10:28am M54.16 February 28, 2025 6:47 am MRI results March 04, 2025 8:35a m M54.16 M54.9 March 18, 2025 8:16 am Reason for Visit Admit Date Left lumbar radiculopathy December 26 8:28am Numbness and tingling of foot December 8:28am Left lumbar radiculopathy January 30, 2025 10:28am Neurogenic claudication January 30, 2025 1 0:28am Numbness and tingling of foot January 30, 2025 10:28am Left lumbar radiculopathy March 04, 2025 8:35am Neurogenic claudication March 04, 2025 8 :35am Numbness and tingling of foot March 04, 2025 8:35am Chief Complaint Admit Date BACK PAIN December 26, 2024 8:2 8am M54.16 December 26, 2024 9:2 8am f/u after 6 visits of pt January 30, 2025 10:28am M54.16 February 28, 2025 6:47 am MRI results March 04, 2025 8:35a m M54.16 M54.9 March 18, 2025 8:16 am surgery consult March 19, 2025 9:02 am Chief Complaint Admit Date f/u after 6 visits of pt January 30, 2025 10:28am M54.16 February 28, 2025 6:47 am MRI results March 04, 2025 8:35a m M54.16 M54.9 March 18, 2025 8:16 am surgery consult March 19, 2025 9:02 am M54.16 R20.0 R20.2 R29.818 April 09 025 8:15am Reason for Visit Admit Date Left lumbar radiculopathy January 30, 2025 10:28am Neurogenic claudication January 30, 2025 1 0:28am Numbness and tingling of foot January 30, 2025 10:28am Left lumbar radiculopathy March 04, 2025 8:35am Neurogenic claudication March 04, 2025 8 :35am Numbness and tingling of foot March 04, 2025 8:35am Severe back pain March 19, 2025 9:02 am Chief Complaint Admit Date f/u after 6 visits of pt January 30, 2025 10:28am M54.16 February 28, 2025 6:47 am MRI results March 04, 2025 8:35a m M54.16 M54.9 March 18, 2025 8:16 am surgery consult March 19, 2025 9:02 am M54.16 R20.0 R20.2 R29.818 April 09, 2 025 8:15am EMG results April 23, 2025 10 :24am Reason for Visit Admit Date Left lumbar radiculopathy January 30, 2025 10:28am Neurogenic claudication January 30, 2025 1 0:28am Numbness and tingling of foot January 30, 2025 10:28am Left lumbar radiculopathy March 04, 2025 8:35am Neurogenic claudication March 04, 2025 8 :35am Numbness and tingling of foot March 04, 2025 8:35am Severe back pain March 19, 2025 9:02 am Left lumbar radiculopathy April 23 10:24am Additional Source Comments Care Team (unrecognized sect ion and content) Team Status: Active Member Role Status Dates Asim Fernandez MD Primary Care Provider Active Team Status: Inactive Member Role Status Dates Asim Fernandez MD Primary Care Provider Active Start: December 26, 2024 End: December 26, 2024 Colleen Aquino APRN Attending Provider Active Start: December 26, 2024 End: December 26, 2024 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 Start Date End Date Asim Fernandez MD [address] [place] [facility] [place] [address] PCP - General Family Medicine 01/17/25 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 Start Date End Date Asim Fernandez MD [address] [place] [facility] [place] [address] PCP - General Family Medicine 01/17/25 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 Start Date End Date Asim Fernandez MD [address] [place] [facility] [place] [address] PCP - General Family Medicine 01/17/25 Team Status: Inactive Member Role Status Dates Asim Fernandez MD Primary Care Provider Active Start: January 30, 2025 End: January 30, 2025 Colleen Aquino APRN Attending Provider Active Start: January 30, 2025 End: January 30, 2025 Team Status: Inactive Member Role Status Dates Asim Fernandez MD Primary Care Provider Active Start: February 28, 2025 End: February 28, 2025 Colleen Aquino APRN Attending Provider Active Start: February 28, 2025 End: February 28, 2025 Team Status: Inactive Member Role Status Dates Asim Fernandez MD Primary Care Provider Active Start: March 04, 2025 End: March 04, 2025 Colleen Aquino APRN Attending Provider Active Start: March 04, 2025 End: March 04, 2025 Team Status: Inactive Member Role Status Dates Asim Fernandez MD Primary Care Provider Active Start: March 18, 2025 End: March 18, 2025 Colleen Aquino APRN Attending Provider Active Start: March 18, 2025 End: March 18, 2025 Team Status: Inactive Member Role Status Dates Asim Fernandez MD Primary Care Provider Active Start: March 19, 2025 End: March 19, 2025 Tanisha Ocampo DO Attending Provider Active S tart: March 19, 2025 End: March 19, 2025 Team Status: Inactive Member Role Status Dates Asim Fernandez MD Primary Care Provider Active Start: April 09, 2025 End: April 09, 2025 Tanisha Ocampo DO Attending Provider Active S tart: April 09, 2025 End: April 09, 2025 Team Status: Active Member Role Status Dates Asim Fernandez MD Primary Care Provider Active Start: April 09, 2025 Tanishalety Ocampo DO Other Provider Active Start : April 09, 2025 Williams Weller MD Attending Provider Active Start: April 09, 2025 Team Status: Inactive Member Role Status Dates Asim Fernandez MD Primary Care Provider Active Start: April 23, 2025 End: April 23, 2025 Tanishalety Ocampo DO Attending Provider Active S tart: April 23, 2025 End: April 23, 2025 (unrecognized sect ion and content) No Status Records FoundNo Status Records FoundNo Status Records FoundNo Status Records FoundNo Status Records Found INFORMATION SOURCE (unrecogn ized section and content) DATE CREATED AUTHOR [facility]/07/2022 [facility] DATE CREATED AUTHOR AUTHOR'S ORGANIZ ATION 10/30/2024 [facility] DATE CREATED AUTHOR AUTHOR'S ORGANIZ ATION 12/15/2024 [facility] DATE CREATED AUTHOR AUTHOR'S ORGANIZ ATION 01/22/2025 [facility] DATE CREATED AUTHOR AUTHOR'S ORGANIZ ATION 04/26/2025 [facility] Goals (unrecognized section and content) Goals may be documented in a n alternate section FOR RECORDS PERTAINING TO PATIENTS WHO ARE [...] BE BASED ON THE PRIMARY CLINICAL RECORDS. [facility] provides no warranty or guarantee of the accuracy or completeness of information in this document.
[2025-05-06 12:51] LABS: Hematocrit 46.7 % (42.0-54.0); Hemoglobin 15.5 g/dL (14.0-18.0); Immature Granulocytes Abs Auto 0.01 10^3/uL (0.00-0.03); Immature Granulocytes Pct Auto 0.2 % (0.0-0.5); Lymphocytes Absolute Auto 1.4 10^3/uL (1.2-3.8); Mean Corpuscular HGB Conc 33.2 g/dL (29.9-35.2); Mean Corpuscular Hemoglobin 30.5 pg (25.9-34.0); Mean Corpuscular Volume 91.9 fL (80.0-94.0); Platelet Count 195 10^3/uL (150-450); Red Blood Count 5.08 10^6/uL (4.70-6.10); White Blood Count 4.3 10^3/uL (4.0-11.0)
[2025-05-06 13:26] LABS: Alanine Aminotransferase 141 U/L (16-63); Albumin Globulin Ratio 0.9; Albumin Level 3.5 g/dL (3.4-5.0); Alkaline Phosphatase 78 U/L (46-116); Anion Gap 11.2; Aspartate Amino Transferase 90 U/L (15-37); Blood Urea Nitrogen 18.0 mg/dL (7.0-18.0); Calcium 8.3 mg/dL (8.5-10.1); Carbon Dioxide 29.9 mmol/L (21.0-32.0); Chloride 105 mmol/L (98-107); Estimated GFR (African America >60 (>=60 mL/min/1.73m^2); Estimated GFR (Non-African Ame >60 (>=60 mL/min/1.73m^2); Globulin 3.7 g/dL; Glucose 136 mg/dL (74-106); NT Pro B Type Natriuretic Pept 14.0 pg/mL (<=900.0); Potassium 4.1 mmol/L (3.5-5.1); Sodium 142 mmol/L (136-145); Total Protein 7.2 g/dL (6.4-8.2)
== END 2025-05-06 12:12 | disposition home or self-care (01) ==
PROVIDERS: PCP Family Medicine; Visit Provider Family Medicine
DX: R07.9 Chest pain, unspecified (principal)
CPT/HCPCS: 36415; 80053; 83880; 84484; 85025

== ENCOUNTER 2025-05-08 08:22 | Outpatient (OUT) | payer BC, SELFPAY ==
--- OUTSIDE RECORDS SUMMARY | 2025-04-25 05:38 | XMS_ITS ---
Author Organization [facility] [place] Address [address] [place] [address] Care Team Providers Care Weaving Supervisor Name Role Phone Remi Fernandez Primary Care Provider [phone] Medications Medication SIG (Take, Route, Fr equency, Duration) Notes Start Date End Date Status Blood Glucose Test - use strip to monito r blood glucose levels In Vitro once daily for 100 days 04/25/2025 Active Blood Glucose Meter -- Use glucose monit or daily to monitor glucose lever dx-E11.9 for 365 days 04/25/2025 Active Encounters Encounter Location Date Provider Diagnosis [facility] [address] [place] [id number] 04/25/2025 Remi Fernandez Plan Of Treatment Medication Medication Name Sig Start Date Stop Date Notes Blood Glucose Test - use strip to monito r blood glucose levels In Vitro once daily for 100 days 04/25/2025 Blood Glucose Meter -- Use glucose monit or daily to monitor glucose lever dx-E11.9 for 365 days 04/25/2025 Next Appt Details Provider Name:Remi Susan Fernandez, 08:30:00 AM, [address] [place], [address], Provider Name:Remi Davis Jim, 08:30:00 AM, [address] [place], [address], Progress Notes * Elvis HERNANDEZ LDOB:1965 (59 yo M)Acc No.[id number]:04/25/2025 Patient: Elvis BUI :1965 A ge:59 Y S ex:Male Address:[address] [place] [address], [place], [address] * Refills Start Blood Glucose Meter --, --, 1, Use glucose monitor daily to monitor glucose lever dx-E11.9, 365 days, Refills=0 Start Blood Glucose Test Strip, -, In Vitro, 100, use strip to monitor blood glucose levels, once daily, 100 days, Refills=3 * true * Date: Generated for Richi thompson/Vance/Robinsmitting on: 0 05/08/2025 08:26 AM EDT
--- OUTSIDE RECORDS SUMMARY | 2025-05-06 05:40 | XMS_ITS ---
Author Organization [facility] [place] Address [address] [place] [address] Care Team Providers Care Executive Candidate Developer Name Role Phone Remi Fernandez Primary Care Provider [phone] Encounters Encounter Location Date Provider Diagnosis [facility] [address] [place] [address] 05/06/2025 Remi Gusmanverona Plan Of Treatment Next Appt Details Provider Name:Remi Fernandez, 08:30:00 AM, [address] [place], [place], [address], Provider Name:Remi Fernandez, 08:30:00 AM, [address] [facility], [place], [place], [address], Progress Notes * MARY Elvis LDOB:1965 (59 yo M)Acc No.[id number]:05/06/2025 Patient: Elvis BUI :1965 A ge:59 Y S ex:Male Address:[address] [place] [address] [address], [place], [address] * true * Date: Generated for Richi thompson/Vance/eTransmitting on: 0 05/08/2025 08:26 AM EDT
--- OUTSIDE RECORDS SUMMARY | 2025-05-06 07:30 | XMS_ITS ---
Author Organization [facility] in [place] Address [address] [place] [address] Care Team Providers Care Sample Card Maker Name Role Phone Remi Fernandez Primary Care Provider [phone] Allergies No Known Allergies Results Component Value Reference Range Notes BNP Reviewed date:05/07/2025 12:52:37 PM Interpretation: Performing Lab: Notes/Report: [facility] , NT Pro B Type Natriuretic Pept 14.0 <=900.0 pg /mL Performing Lab: see note ML - [facility] LB CBC AUTO DIFF Reviewed date:05/07/2025 12:52:37 PM Interpretation: Performing Lab: Notes/Report: [facility] , White Blood Count 4.3 4.0-11.0 10 3/uL Red Blood Count 5.08 4.70-6.10 10 6/uL Hemoglobin 15.5 14.0-18.0 g/dL Hematocrit 46.7 42.0-54.0 % Mean Corpuscular Volume 91.9 80.0-94.0 fL Mean Corpuscular Hemoglobin 30.5 25.9-34.0 pg Mean Corpuscular HGB Conc 33.2 29.9-35.2 g/dL Red Cell Distribution Width 13.3 11.0-15.0 % Platelet Count 195 150-450 10 3/uL Mean Platelet Volume 9.7 9.5-13.5 fL Neutrophils Percent Auto 56.8 43.0-75.0 % Lymphocytes Percent Auto 31.7 20.5-60.0 % Monocytes Percent Auto 10.3 1.7-12.0 % Eosinophils Percent Auto 0.5 0.9-7.0 % Basophils Percent Auto 0.5 0.2-2.0 % Immature Granulocytes Pct Auto 0.2 0.0-0.5 % Neutrophils Absolute Auto 2.4 1.4-6.5 10 3/uL Lymphocytes Absolute Auto 1.4 1.2-3.8 10 3/uL Monocytes Absolute Auto 0.4 0.3-0.8 10 3/uL Eosinophils Absolute Auto 0.0 0.0-0.7 10 3/uL Basophils Absolute Auto 0.0 0.0-0.1 10 3/uL Immature Granulocytes Abs Auto 0.01 0.00-0.03 10 3/uL Performing Lab: see note ML - [facility] LB PROF 14(COMP METB) Reviewed date:05/07/2025 12:52:37 PM Interpretation: Performing Lab: Notes/Report: [facility] , Sodium 142 136-145 mmol/L Potassium 4.1 3.5-5.1 mmol/L Chloride 105 98-107 mmol/L Carbon Dioxide 29.9 21.0-32.0 mmol/L Anion Gap 11.2 Glucose 136 74-106 mg/dL Blood Urea Nitrogen 18.0 7.0-18.0 mg/dL Creatinine 1.04 0.70-1.30 mg/dL Estimated GFR ( Radha >60 >=60 mL/mi n/1.73m 2 Estimated GFR (Non- Niyah >60 >=60 mL/mi n/1.73m 2 BUN Creatinine Ratio 17.3 Calcium 8.3 8.5-10.1 mg/dL Bilirubin Total 0.5 0.2-1.0 mg/dL Aspartate Amino Transferase 90 15-37 U/L Alanine Aminotransferase 141 16-63 U/L Alkaline Phosphatase 78 46-116 U/L Total Protein 7.2 6.4-8.2 g/dL Albumin Level 3.5 3.4-5.0 g/dL Globulin 3.7 Albumin Globulin Ratio 0.9 Performing Lab: see note ML - [facility] LB REASON FOR VISIT Clammy, cant focus, no energy- feels out of it- no chest pain, no cough, no congestion- been going on since Monday, just started Adipex 2 weeks ago- has not taken for the last 2 days Medications Medication SIG (Take, Route, Frequency, Duration) Notes Start Date End Date Status Carvedilol 25 MG TAKE 1 AND 1/2 TABLE TS BY MOUTH TWICE DAILY for 90 Active Blood Glucose Meter -- Use glucose monit or daily to monitor glucose lever dx-E11.9 for 365 days 04/25/2025 Active Blood Glucose Test - use strip to monito r blood glucose levels In Vitro once daily for 100 days 04/25/2025 Active Aspirin 81 81 MG 1 tablet Orally Once a day Active Baclofen 10 MG Oral for 30 Days Active rOPINIRole HCl 0.5 MG 2 tablet 1 to 3 ho urs before bedtime Orally Once a day- may go up to 4 PO QHS for 30 days 03/05/2024 Active traMADol HCl 50 MG 2 tablet as needed O rally TID Herniated lumbar disc for 30 days 03/10/2025 Active Pravastatin Sodium 20 MG TAKE 1 TABLET B Y MOUTH DAILY for 90 days Active Adipex-P 37.5 MG 1 tablet before pancho kfast Orally Once a day 04/25/2025 Active Albuterol Sulfate HFA 108 (90 Base) MCG/ACT 1 puff as needed Inhalation every 4 hrs Active Potassium Chloride ER 10 MEQ 1 capsule with food Orally Twice a day for 90 days 02/24/2025 Active Olmesartan Medoxomil 40 MG TAKE 1 TABLET BY MOUTH ONCE DAILY Orally Once a day for 90 days Active metFORMIN HCl 500 MG TAKE 1 TABLET BY MO UT TWICE DAILY for 90 days Active Mounjaro 2.5 MG/0.5ML 2.5 mg Subcutaneou s weekly for 28 days 04/25/2025 Active multivitamin Multiple Vitamins Active Glimepiride 4 MG 1 tablet with breakf ast or the first main meal of the day Orally Once a day for 90 days 10/17/2024 Active hydrALAZINE HCl 50 MG TAKE 1 TABLET BY M OUT 3 TIMES DAILY for 90 Active Lasix 40 MG 1 tablet Orally Once a day for 30 days 02/24/2025 Active Levothyroxine Sodium 150 MCG TAKE 1 TABLET BY MOUTH EVERY DAY IN THE MORNING ON AN EMPTY STOMACH for 90 days Active Meloxicam 15 MG 1 tablet Orally Once a day for 90 days 02/24/2025 Active Social History Tobacco Use: Social History Observation Description Date Details (start date - stop date) Former Smoker 09/04/1979 - 09/04/1989 Tobacco Use/Smoking Question Answer Notes Patient is a former smoker When did you start smoking? 09/04/1979 When did you stop smoking? 09/04/1989 Problems Problem Type SNOMED Code ICD Code Onset Dates Problem Status W/U Status Risk Notes Problem Chill (12319093) Chills (R68.83) Active confirmed Problem Chest pain (08547778) Chest pain (R07.9) Active confirmed Vital Signs Temperature 97.9 degrees Fahrenheit 05/06/20 25 Blood pressure systolic 130 mm Hg 05/06/20 25 Blood pressure diastolic 82 mm Hg 025 Height 74 in 05/06/2025 Weight 336.8 lbs 05/06/2025 BMI 43.24 kg/m2 05/06/2025 Encounters Encounter Location Date Provider Diagnosis [address] [id number] 05/06/2025 Remi Fernandez Chest pain R07.9 and Chills R68.83 Assessments Encounter Date Diagnosis (ICD Code) Assessment Notes Treatment Notes Treatment Clinical Notes Section Notes 05/06/2025 Chest pain (ICD-10 - R07.9) 05/06/2025 Chills (ICD-10 - R68.83) Plan Of Treatment Pending Test Test Name Order Date High Sensitivity Troponin 05/06/2025 Next Appt Details Provider Name:Remi Fernandez, 08:30:00 AM, [address] [place], [address], Provider Name:Remi Fernandez, 08:30:00 AM, [address] [place] [address], [id number], Progress Notes * Elvis HERNANDEZ LDOB:1965 (59 yo M)Acc No.[id number]:05/06/2025 Progress Note Patient: Elvis BUI Provider: Cristin Fernandez ([facility])MD :1965 A ge:59 Y S ex:Male Date:05/06/2025 Address:[address] [place], [place] [id number] Check In:11:21 AM ESTCheck O ut:12:01 PM EST Subjective: * Chief Complaints: * C lammy, cant focus, no energy- feels out of it- no chest pain, no cough, no congestion- been going on since Mondayjust started Adipex 2 weeks ago- has not taken for the last 2 days * ROS: E ENT: hearing changes d enies. v isual changes d enies.?non-healing mouth sores d enies. s wollen glands or neck lumps d enies. h oarseness d enies. s ore throat d enies. d ifficulty swallowing d enies. n ose bleeds d enies. n tam congestion d enies. e ar ache d enies. e ar discharge?denies. r inging in ears d enies. l ight sensitivity d enies. e ye pain d enies. b lurring d enies. e ye irritation d enies. d ouble vision d enies.?vision loss d enies. G eneral/Constitutional: Sweats: D enies. F atigue d enies. S leep problems d enies. A norexia d enies. M alaise d enies. W eight loss d enies.?Fatigue or Weakness d enies. F ever or Chills d enies. C ardiovascular: Shortness of Breath w/lying flat d enies. L ightheadedness/dizziness d enies. C hest tightness/ heavy pressure d enies. S welling of legs, ankles, or feet d enies. W aking up with shortness of breath d enies. C hest pain denies. P alpitations d enies. W eight gain d enies. R espiratory: Chronic or frequent cough d enies. C oughing up blood?denies. D ifficulty breathing d enies. P roductive cough d enies. S noring?denies. S hortness of breath that awakens from sleep (PND) d enies. C hest pain d enies. S putum production d enies. W heezing d enies. M usculoskeletal: Joint pain d enies. J oint Fluid d enies. B ack pain d enies. K nee pain d enies. N monika pain d enies. J oint Stiffness d enies. M uscle cramps d enies. W eakness of muscles d enies. A rthritis d enies. M uscle aches d enies. P ain in shoulder(s) d enies. S wollen joints d enies. 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 Modified On:06/23/2023U Status:confirmed E11.9 Controlled type 2 di abetes mellitus Modified On:06/23/2023U Status:confirmed M17.11 Osteoarthritis of ri ght knee Modified On:06/23/2023U Status:confirmed K21.9 GERD (gastroesophage al reflux disease) Modified On:06/23/2023U Status:confirmed M51.26 Other intervertebral disc displacement, lumbar region Modified On:12/12/2023U Status:confirmed Z00.00 Well adult Modified On:06/28/2023U Status:confirmed E03.9 Hypothyroidism, unsp ecified Modified On:11/20/2023U Status:confirmed M54.12 Cervical radiculopat hy Modified On:12/14/2023U Status:confirmed M19.90 Osteoarthritis Modified On:12/11/2023U Status:confirmed R25.2 Leg cramps Modified On:03/04/2024U Status:confirmed D72.829 Elevated white blood cell count, unspecified Modified On:03/05/2024U Status:confirmed M48.062 Lumbar stenosis with neurogenic claudication Modified On:05/30/2024U Status:confirmed M25.562 Left knee pain Modified On:01/02/2025U Status:confirmed M79.671 Right foot pain Modified On:02/24/2025U Status:confirmed R07.9 Chest pain Modified On:05/06/2025U Status:confirmed R68.83 Chills Modified On:05/06/2025U Status:confirmed * Medical History: * Surgical History: f istulotomy History of back surgery History of gallbladder surgery History of lithotripsy x7 History of tonsillectomy * Hospitalization/Major Diagno stic Procedure: s ee above * Family History: F ather: alive 89 yrs. M other: alive, dementia, diagnosed with Diabetes mellitus without mention of complication, type II or unspecified type, not stated as uncontrolled. B mikoer(s): alive, diagnosed with Diabetes mellitus without mention of complication, type II or unspecified type, not stated as uncontrolled. S ister(s): alive. S on(s): alive. D colleen(s): alive. Migrated Family History:: Family history of diabetes mellitus mother;mother-mental illness, father-COPD, maternal aunt-liver CA;Family history of hypertension mother;. 1 brother(s) , 1 sister(s) - healthy. 1 son(s) , 1 daughter(s) - healthy. . * Social History: T obacco Use: T obacco Use/Smoking P atient is a f ormer smoker W hen did you start smoking? 0 09/04/1979 W hen did you stop smoking? 0 09/04/1989 * Medications: T akingAdipex-P(Phentermine HCl) 37.5 MG Tablet 1 tablet before breakfast Orally Once a day Albuterol Sulfate HFA 108 (90 Base) MCG/ACT Aerosol Solution 1 puff as needed Inhalation every 4 hrs Aspirin 81(Aspirin) 81 MG Tablet Delayed Release 1 tablet Orally Once a day Baclofen 10 MG Tablet Oral Blood Glucose Meter -- -- Use glucose monitor daily to monitor glucose tiarra dx-E11.9 Blood Glucose Test - Strip use strip to monitor blood glucose levels In Vitro once daily Carvedilol 25 MG Tablet TAKE 1 AND 1/2 TABLETS BY MOUTH TWICE DAILY Glimepiride 4 MG Tablet 1 tablet with breakfast or the first main meal of the day Orally Once a day hydrALAZINE HCl 50 MG Tablet TAKE 1 TABLET BY MOUTH 3 TIMES DAILY Lasix(Furosemide) 40 MG Tablet 1 tablet Orally Once a day Levothyroxine Sodium 150 MCG Tablet TAKE 1 TABLET BY MOUTH EVERY DAY IN THE MORNING ON AN EMPTY STOMACH Meloxicam 15 MG Tablet 1 tablet Orally Once a day metFORMIN HCl 500 MG Tablet TAKE 1 TABLET BY MOUTH TWICE DAILY Mounjaro(Tirzepatide) 2.5 MG/0.5ML Solution Auto-injector 2.5 mg Subcutaneous weekly multivitamin Multiple Vitamins Olmesartan Medoxomil 40 MG Tablet TAKE 1 TABLET BY MOUTH ONCE DAILY Orally Once a day Potassium Chloride ER 10 MEQ Capsule Extended Release 1 capsule with food Orally Twice a day Pravastatin Sodium 20 MG Tablet TAKE 1 TABLET BY MOUTH DAILY rOPINIRole HCl 0.5 MG Tablet 2 tablet 1 to 3 hours before bedtime Orally Once a day- may go up to 4 PO QHS traMADol HCl 50 MG Tablet 2 tablet as needed Orally TID Herniated lumbar disc Medication List reviewed and reconciled with the patientTaking Adipex-P(Phentermine HCl) 37.5 MG Tablet 1 tablet before breakfast Orally Once a day Taking Albuterol Sulfate HFA 108 (90 Base) MCG/ACT Aerosol Solution 1 puff as needed Inhalation every 4 hrs Taking Aspirin 81(Aspirin) 81 MG Tablet Delayed Release 1 tablet Orally Once a day Taking Baclofen 10 MG Tablet Oral Taking Blood Glucose Meter -- -- Use glucose monitor daily to monitor glucose tiarra dx-E11.9 Taking Blood Glucose Test - Strip use strip to monitor blood glucose levels In Vitro once daily Taking Carvedilol 25 MG Tablet TAKE 1 AND 1/2 TABLETS BY MOUTH TWICE DAILY Taking Glimepiride 4 MG Tablet 1 tablet with breakfast or the first main meal of the day Orally Once a day Taking hydrALAZINE HCl 50 MG Tablet TAKE 1 TABLET BY MOUTH 3 TIMES DAILY Taking Lasix(Furosemide) 40 MG Tablet 1 tablet Orally Once a day Taking Levothyroxine Sodium 150 MCG Tablet TAKE 1 TABLET BY MOUTH EVERY DAY IN THE MORNING ON AN EMPTY STOMACH Taking Meloxicam 15 MG Tablet 1 tablet Orally Once a day Taking metFORMIN HCl 500 MG Tablet TAKE 1 TABLET BY MOUTH TWICE DAILY Taking Mounjaro(Tirzepatide) 2.5 MG/0.5ML Solution Auto-injector 2.5 mg Subcutaneous weekly Taking multivitamin Multiple Vitamins Taking Olmesartan Medoxomil 40 MG Tablet TAKE 1 TABLET BY MOUTH ONCE DAILY Orally Once a day Taking Potassium Chloride ER 10 MEQ Capsule Extended Release 1 capsule with food Orally Twice a day Taking Pravastatin Sodium 20 MG Tablet TAKE 1 TABLET BY MOUTH DAILY Taking rOPINIRole HCl 0.5 MG Tablet 2 tablet 1 to 3 hours before bedtime Orally Once a day- may go up to 4 PO QHS Taking traMADol HCl 50 MG Tablet 2 tablet as needed Orally TID Herniated lumbar disc Medication List reviewed and reconciled with the patient * Allergies: N .K.D.A.no[Allergies Verified] Objective: * Vitals: W t:336.8lbs, Ht: 74 in, BP:130/82mm Hg, Temp:97.9F, BMI:43.24Index, Ht-cm: 187.96 cm, Wt-k.77 kg. * Examination: P hysical Exam: GENERAL: w ell developed, well nourished, in no acute distress. HEAD: n ormocephalic/atraumatic. EYES: p upils equal, round and reactive to light, conjunctivae and sclerae normal. EARS: n o deformity or lesion of external ear, canals and TM appear normal bilaterally, TM's intact, not inflamed with normal light reflex, hearing grossly normal to conversational speech. NOSE: n o deformity, discharge, inflammation, or lesions.? MOUTH: m ucous membranes moist, normal oropharynx and posterior pharynx without lesions or exudates, tongue normal, dentition normal. NECK: n monika supple, no masses or palpable cervical nodes, trachea midline, thyroid without nodules, masses, tenderness, or enlargement. CHEST: n o chest wall deformity, no chest wall tenderness.? LUNGS: n ormal respiratory effort and clear to auscultation, no wheezes, rales, or rhonchi, good air exchange. CARDIO: r egular rate and rhythm, normal S1 and S2, nor murmur, rub, or gallop. PULSES: n ormal capillary refill. ABDOMEN: s oft, non-distended, non-tender, no masses. MUSCULOSKELETAL: n o deformity or scoliosis noted, normal range of motion, joints normal, no erythema, edema, effusion, or ecchymosis. EXTREMITY: n o clubbing, cyanosis, edema, or deformity with normal ROM in both upper and lower bilateral extremities. NEUROLOGIC: g rossly normal. SKIN: n o rashes, ulcerations, or suspicious lesions. LYMPH NODES: n o cervical adenopathy, nodes normal. MENTAL STATUS: a lert and oriented x3, normal mood and affect. Assessment: * Assessment: 1. C hest pain - R07.9 (Primary) 2 . C hills - R68.83 Plan: * Treatment: * Labs: * L ab: PROF 14(COMP METB) (Collection Date & Time - 05/06/2025 12:26 PM) L ab: BNP (Collection Date & Time - 05/06/2025 12:26 PM) L ab: CBC AUTO DIFF (Collection Date & Time - 05/06/2025 12:26 PM) * Procedure Codes: * * Sign off status: Completed Visit Status: C HK (Check Out) true * Provider: Cristin Fernandez ([facility])MD Date: 0 05/06/2025 Generated for Printi ng/Faxing/eTransmitting on: 0 05/08/2025 08:25 AM EDT History and Physical Notes * Examination Category Sub-Category Detail Notes Category Not es Physical Exam GENERAL: well developed, well nourished, in no acute distress HEAD: normocephalic/atraum atic EYES: pupils equal, round and reactive to light, conjunctivae and sclerae normal EARS: no deformity or lesi on of external ear, canals and TM appear normal bilaterally, TM's intact, not inflamed with normal light reflex, hearing grossly normal to conversational speech NOSE: no deformity, discha rge, inflammation, or lesions MOUTH: mucous membranes ulysses st, normal oropharynx and posterior pharynx without lesions or exudates, tongue normal, dentition normal NECK: neck supple, no mass es or palpable cervical nodes, trachea midline, thyroid without nodules, masses, tenderness, or enlargement CHEST: no chest wall deform ity, no chest wall tenderness LUNGS: normal respiratory e ffort and clear to auscultation, no wheezes, rales, or rhonchi, good air exchange CARDIO: regular rate and rhy thm, normal S1 and S2, nor murmur, rub, or gallop PULSES: normal capillary ref ill ABDOMEN: soft, non-distended, non-tender, no masses RECTAL: MUSCULOSKELETAL: no deformity or scol iosis noted, normal range of motion, joints normal, no erythema, edema, effusion, or ecchymosis EXTREMITY: no clubbing, cyanosi s, edema, or deformity with normal ROM in both upper and lower bilateral extremities NEUROLOGIC: grossly normal SKIN: no rashes, ulceratio ns, or suspicious lesions LYMPH NODES: no cervical adenopat hy, nodes normal MENTAL STATUS: alert and oriented x 3, normal mood and affect
--- OUTSIDE RECORDS SUMMARY | 2025-05-07 06:07 | XMS_ITS ---
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 Name Role Phone Remi Fernandez Primary Care Provider [phone] REASON FOR VISIT Lab Results/ Update Encounters Encounter Location Date Provider Diagnosis [facility] [address] [place] [address] 05/07/2025 Remi Fernandez Elevated liver function tests R94.5 Assessments Encounter Date Diagnosis (ICD Code) Assessment Notes Treatment Notes Treatment Clinical Notes Section Notes 05/07/2025 Elevated liver function tests (ICD-10 - R94.5) Plan Of Treatment Pending Test Test Name Order Date AMMONIA 05/07/2025 HEPATITIS PANEL, ACUTE 05/07/2025 LIVER PROFILE 05/07/2025 MONO 05/07/2025 PROTIME 05/07/2025 PTT 05/07/2025 EBV Antibody Profile 05/07/2025 Next Appt Details Provider Name:Remi Fernandez, 08:30:00 AM, [address] [place], [address], Provider Name:Remi Fernandez, 08:30:00 AM, [address] [place], [address], Progress Notes * MARY Elvis LDOB:1965 (59 yo M)Acc No.[id number]:05/07/2025 Patient: Aquiles WALTERElvis VOSS Yaquelin :1965 A ge:59 Y S ex:Male Address:[address] [place] [address], [place], [address] Subjective: * Chief Complaints: * L ab Results/ Update * Medical History: * Surgical History: * Hospitalization/Major Diagno stic Procedure: * Medications: Objective: * Vitals: * Physical Examination: Assessment: * Assessment: 1. E levated liver function tests - R94.5 (Primary) Plan: * Treatment: * Procedure Codes: * true * Date: Generated for Richi thompson/Vance/eTransmitting on: 0 05/08/2025 08:25 AM EDT
--- OUTSIDE RECORDS SUMMARY | 2025-05-08 08:26 | XMS_ITS | Patient Health Record ---
Author Organization [facility] [place] Address [address] [place] [address] Care Team Providers Care Hearing Aide Technician Name Role Phone Remi Verdin Primary Care Provider Allergies No Known Allergies Results Component Value Reference Range Notes BNP Reviewed date:05/07/2025 12:52:37 PM Interpretation: Performing Lab: Notes/Report: [facility] , NT Pro B Type Natriuretic Pept 14.0 <=900.0 pg/mL Performing Lab: see note ML - [facility] LB CBC AUTO DIFF Reviewed date:05/07/2025 12:52:37 PM Interpretation: Performing Lab: Notes/Report: [facility] , White Blood Count 4.3 4.0-11.0 [...] 3/uL Performing Lab: see note ML - [facility] PROF 14(COMP METB) Reviewed date:05/07/2025 12:52:37 PM Interpretation: Performing Lab: Notes/Report: [facility] , Sodium 142 136-145 mmol/L Potassium 4.1 3.5-5.1 mmol/L Chloride 105 98-107 mmol/L Carbon Dioxide 29.9 21.0-32.0 mmol/L Anion Gap 11.2 Glucose 136 74-106 mg/dL Blood Urea Nitrogen 18.0 7.0-18.0 mg/dL Creatinine 1.04 0.70-1.30 mg/dL Estimated GFR ( Radha >60 >=60 mL/min/1.73m 2 Estimated GFR (Non- Niyah >60 >=60 mL/min/1.73m 2 BUN Creatinine Ratio 17.3 Calcium 8.3 8.5-10.1 mg/dL Bilirubin Total 0.5 0.2-1.0 mg/dL Aspartate Amino Transferase 90 15-37 U/L Alanine Aminotransferase 141 16-63 U/L Alkaline Phosphatase 78 46-116 U/L Total Protein 7.2 6.4-8.2 g/dL Albumin Level 3.5 3.4-5.0 g/dL Globulin 3.7 Albumin Globulin Ratio 0.9 Performing Lab: see note ML - [facility] LB BUN Reviewed date:07/08/2024 07:44:56 PM Interpretation: Performing Lab: Notes/Report: [facility] , Blood Urea Nitrogen 15.0 7.0-18.0 mg/dL Performing Lab: see note ML - [facility] LB CALCIUM Reviewed date:07/08/2024 07:44:56 PM Interpretation: Performing Lab: Notes/Report: [facility] , Calcium 8.9 8.5-10.1 mg/dL Performing Lab: see note ML - [facility] LB CHLORIDE Reviewed date:07/08/2024 07:44:56 PM Interpretation: Performing Lab: Notes/Report: [facility] , Chloride 103 98-107 mmol/L Performing Lab: see note ML - [facility] LB CO2 Reviewed date:07/08/2024 07:44:56 PM Interpretation: Performing Lab: Notes/Report: [facility] , Carbon Dioxide 29.3 21.0-32.0 mmol/L Performing Lab: see note ML - [facility] LB CREATININE Reviewed date:07/08/2024 07:44:56 PM Interpretation: Performing Lab: Notes/Report: [facility] , Creatinine 0.90 0.70-1.30 mg/dL Estimated GFR ( Radha >60 >=60 mL/min/1.73m 2 Estimated GFR (Non- Niyah >60 >=60 mL/min/1.73m 2 Performing Lab: see note ML - [facility] LB NA Reviewed date:07/08/2024 07:44:56 PM Interpretation: Performing Lab: Notes/Report: [facility] , Sodium 143 136-145 mmol/L Performing Lab: see note ML - [facility] LB PHOSPHORUS Reviewed date:07/08/2024 07:44:56 PM Interpretation: Performing Lab: Notes/Report: [facility] , Phosphorus 4.0 2.6-4.7 mg/dL Performing Lab: see note ML - [facility] LB URIC ACID SERUM Reviewed date:07/08/2024 07:44:56 PM Interpretation: Performing Lab: Notes/Report: [facility] , Uric Acid 7.2 3.5-7.2 mg/dL Performing Lab: see note ML - [facility] LB Troponin I High Sensitivity Reviewed date:05/07/2025 12:52:37 PM Interpretation: Performing Lab: Notes/Report: [facility] , Troponin I High Sensitivity 10.6 4.0-76.1 pg/mL WITH OTHER DIAGNOSTIC AND CLINICAL INFORMATION. UNIVERSAL DEFINITION OF MYOCARDIAL INFARCTION. THE UPPER CUT-OFF POINTS HAVE BEEN ESTABLISHED BASED ON THE FOURTH PERCENTILE OF cTnI DISTRIBUTION IN A REFERENCE POPULATION, DIAGNOSIS. 99TH PERCENTILE = 76.2 PG/ML HAS BEEN CONFIRMED THE DECISION THRESHOLD FOR AL USED IN ISOLATION BUT SHOULD BE INTERPRETED IN CONJUNCTION NOTE: HIGH-SENSITIVITY TROPONIN ASSAY IS NOT INTENDED TO BE REFERENCE LIMIT (URL) OF TROPONIN, DEFINED THE 99TH Performing Lab: see note ML - [facility] TSH Reviewed date:11/17/2024 03:22:14 PM Interpretation: Performing Lab: Notes/Report: [facility] , Thyroid Stimulating Hormone 5.229 0.358-3.740 uIU/mL Performing Lab: see note ML - [facility] LB T4 Reviewed date:11/17/2024 03:22:14 PM Interpretation: Performing Lab: Notes/Report: [facility] , T4 Thyroxine 10.50 4.50-12.10 ug/dL Performing Lab: see note ML - [facility] FREE T3 Reviewed date:11/17/2024 03:22:14 PM Interpretation: Performing Lab: Notes/Report: [facility] , Free T3 2.54 2.18-3.98 pg/mL Performing Lab: see note ML - [facility] Occult Blood* Reviewed date:10/17/2024 08:06:09 PM Interpretation: Performing Lab: Notes/Report: [facility] , Occult Blood Positive Performing Lab: see note ML - [facility] TSH Reviewed date:10/16/2024 09:55:58 PM Interpretation: Performing Lab: Notes/Report: [facility] , Thyroid Stimulating Hormone 6.514 0.358-3.740 uIU/mL Performing Lab: see note ML - [facility] LB T4 Reviewed date:10/16/2024 09:55:58 PM Interpretation: Performing Lab: Notes/Report: [facility] , T4 Thyroxine 8.60 4.50-12.10 ug/dL Performing Lab: see note ML - [facility] LB PSA SCREENING Reviewed date:10/16/2024 09:55:58 PM Interpretation: Performing Lab: Notes/Report: [facility] , Prostate Specific Antigen Scrn <0.13 <=4.00 ng/mL Performing Lab: see note ML - [facility] PROF 14(COMP METB) Reviewed date:10/16/2024 09:55:58 PM Interpretation: Performing Lab: Notes/Report: [facility] , Sodium 141 136-145 mmol/L Potassium 3.9 3.5-5.1 mmol/L Chloride 103 98-107 mmol/L Carbon Dioxide 31.3 21.0-32.0 mmol/L Anion Gap 10.6 Glucose 146 74-106 mg/dL Blood Urea Nitrogen 13.0 7.0-18.0 mg/dL Creatinine 0.92 0.70-1.30 mg/dL Estimated GFR ( Radha >60 >=60 mL/min/1.73m 2 Estimated GFR (Non- Niyah >60 >=60 mL/min/1.73m 2 BUN Creatinine Ratio 14.1 Calcium 8.9 8.5-10.1 mg/dL Bilirubin Total 0.5 0.2-1.0 mg/dL Aspartate Amino Transferase 33 15-37 U/L Alanine Aminotransferase 60 16-63 U/L Alkaline Phosphatase 70 46-116 U/L Total Protein 6.5 6.4-8.2 g/dL Albumin Level 3.2 3.4-5.0 g/dL Globulin 3.3 Albumin Globulin Ratio 1.0 Performing Lab: see note ML - [facility] LB FREE T3 Reviewed date:10/16/2024 09:55:58 PM Interpretation: Performing Lab: Notes/Report: [facility] , Free T3 2.41 2.18-3.98 pg/mL Performing Lab: see note ML - [facility] LB PTH, Intact Reviewed date:07/09/2024 02:30:01 PM Interpretation: Performing Lab: Notes/Report: [facility] , PTH, Intact 28 15-65 pg/mL [address] [place], [place] [id number] Project Development Coordinator: Jean Padilla PhD, Phone: [phone] Performed at: - [facility] [place] Performing Lab: see note - [facility] LB XR abdomen 1V Reviewed date:06/10/2024 08:32:23 PM Interpretation: Performing Lab: Notes/Report: Source Facility: [facility]-[address] [place] [address] [place] [address] XRay Report Signed Patient: LIZ HERNANDEZ MR#: [id number] : 1965 Acct:[id number] Age/Sex: 58 / M ADM Date: 06/07/24 Loc: RAD Attending Dr: Yovany Ross M.D. Ordering Physician: Yovany Ross M.D. Date of Service: 06/07/24 Procedure(s): XR abdomen 1V Accession Number(s): [id number] cc: Yovany Ross M.D.; Nancy Verdin M.D. [facility] [place] [address] Patient Name: LIZ HERNANDEZ MRN: [id number] date: 1965 Sex: M Assigned Patient Location: RAD Current Patient Location: Accession/Order Number: [id number] Exam Date: 06/07/2024 08:42 Report Date: 06/09/2024 06:33 At the request of: YOVANY ROSS Procedure: XR abdomen 1V EXAMINATION: XR abdomen 1V HISTORY: Kidney Stones COMPARISON: XR abdomen 05/31/2023 FINDINGS: KIDNEY/URETER - RIGHT: No visible renal or ureteral calcifications. KIDNEY/URETER - LEFT: No visible renal or ureteral calcifications. PELVIS: No visible ureteral stones. BOWEL: No abnormal dilation or deviation. BONES: No acute abnormality. OTHER: Negative. No abnormal gaseous collections. XR/XR abdomen 1V IMPRESSION: 1. No appreciable urinary tract calculi. Electronically authenticated by: MARCUS LYON Date: 06/09/2024 06:33 Dictated By: Marcus Lyon M.D. Signed By: 06/09/2435 DD/ TD/TT: [employer]: [place] [address] XRay Report Signed Patient: LIZ HERNANDEZ MR#: [id number] : 1965 Acct:[id number] Age/Sex: 58 / M ADM Date: 06/07/24 Loc: RAD Attending Dr: Yvette Doran Ordering Physician: Yovany Ross M.D. Date of Service: 06/07/24 Procedure(s): XR abdomen 1V Accession Number(s): [id number] cc: Yovany Ross M.D; Nancy Verdin M.D. The [place] [id number] Patient Name: LIZ HERNANDEZ MRN: [id number] date: 1965 Sex: M Assigned Patient Location: [facility] Current Patient Location: Accession/Order Numb er: [id number] Exam Date: 08:42 Report Date: 06/09/2024 06:33 At the request of: YOVANY ROSS Procedure: XR abdome n 1V EXAMINATION: XR abdo men 1V HISTORY: Kidney Stones COMPARISON: XR abdom en 05/31/2023 FINDINGS: KIDNEY/URETER - RIGH T: No visible renal or ureteral calcifications. KIDNEY/URETER - LEFT : No visible renal or ureteral calcifications. PELVIS: No visible ureteral stones. BOWEL: No abnormal dilation or deviation. BONES: No acute abnormality. OTHER: Negative. No abnormal gaseous collections. XR/XR abdomen 1V IMPRESSION: 1. No appreciable urinary tract calculi. Electronically authenticated by: MARCUS LYON Date: 06/09/2024 06:33 Dictated By: Marcus Lyon M.D. Signed By: 06/09/24634 DD/ 2 TD/TT: [employer]: [employer]FILE Reviewed date:10/16/2024 09:55:58 PM Interpretation: Performing Lab: Notes/Report: [facility] , Triglycerides 311 <=150 mg/dL Cholesterol 172 <=200 mg/dL HDL Cholesterol 36 40-60 mg/dL > or =60 mg/dl - LOW CARDIOVASCULAR RISK <40 mg/dl - HIGH CARDIOVASCULAR RISK LDL Cholesterol Calculated 74.0 >190 mg/dl VERY HIGH <100 mg/dl OPTIMAL 100-129 mg/dl NEAR OR ABOVE OPTIMAL 130-159 mg/dl BORDERLINE HIGH 160-189 mg/dl HIGH VLDL CHOLESTEROL 62.2 Chol HDL Ratio 4.8 4.4 - 7.1 AVERAGE RISK 7.1 - 11.0 MODERATE RISK >11.0 HIGH RISK 3.3 - 4.4 LOW RISK Performing Lab: see note ML - [facility] LB GLYCOHEMOGLOBIN A1C Reviewed date:10/16/2024 09:55:58 PM Interpretation: Performing Lab: Notes/Report: [facility] , Glycohemoglobin A1C 6.7 4.5-6.2 % ADA RECOMMENDED LIMIT 4.0 - 6.0 ADA THERAPEUTIC TARGET < 7.0 ACTION SUGGESTED > 7.0 Estimated Average Glucose 146 Performing Lab: see note ML - [facility] LB CBC AUTO DIFF Reviewed date:10/16/2024 09:55:58 PM Interpretation: Performing Lab: Notes/Report: [facility] , White Blood Count 9.2 4.0-11.0 10 3/uL Red Blood Count 4.56 4.70-6.10 10 6/uL Hemoglobin 14.2 14.0-18.0 g/dL Hematocrit 41.8 42.0-54.0 % Mean Corpuscular Volume 91.7 80.0-94.0 fL Mean Corpuscular Hemoglobin 31.1 25.9-34.0 pg Mean Corpuscular HGB Conc 34.0 29.9-35.2 g/dL Red Cell Distribution Width 13.3 11.0-15.0 % Platelet Count 262 150-450 10 3/uL Mean Platelet Volume 9.3 9.5-13.5 fL Neutrophils Percent Auto 68.7 43.0-75.0 % Lymphocytes Percent Auto 19.7 20.5-60.0 % Monocytes Percent Auto 8.4 1.7-12.0 % Eosinophils Percent Auto 2.2 0.9-7.0 % Basophils Percent Auto 0.7 0.2-2.0 % Immature Granulocytes Pct Auto 0.3 0.0-0.5 % Neutrophils Absolute Auto 6.3 1.4-6.5 10 3/uL Lymphocytes Absolute Auto 1.8 1.2-3.8 10 3/uL Monocytes Absolute Auto 0.8 0.3-0.8 10 3/uL Eosinophils Absolute Auto 0.2 0.0-0.7 10 3/uL Basophils Absolute Auto 0.1 0.0-0.1 10 3/uL Immature Granulocytes Abs Auto 0.03 0.00-0.03 10 3/uL Performing Lab: see note ML - [facility] LB XR FOOT RT 2V Reviewed date:02/24/2025 07:24:53 PM Interpretation: Performing Lab: Notes/Report: Source Facility: [place] [address] XRay Report Signed Patient: LIZ HERNANDEZ MR#: [id number] : 1965 Acct:[id number] Age/Sex: 59 / M ADM Date: 02/24/25 Loc: [facility] Attending Dr: Nancy Verdin M.D. Ordering Physician: Nancy Verdin M.D. Date of Service: 02/24/25 Procedure(s): XR foot RT 2V Accession Number(s): [id number] cc: Nancy Verdin M.D. [place] [address] Patient Name: LIZ HERNANDEZ MRN: [id number] date: 1965 Sex: M Assigned Patient Location: [facility] Current Patient Location: [facility] Accession/Order Number: [id number] Exam Date: 02/24/2025 10:02 Report Date: 02/24/2025 10:08 At the request of: NANCY VERDIN MD Procedure: XR foot RT 2V RIGHT FOOT - 2 views COMPARISON: None CLINICAL DATA: Lateral right foot pain for the past few days. No definite injury. AP and lateral views were obtained. No acute fracture or dislocation is identified. Minor spurring is seen at the dorsum of the tarsals and tarsometatarsal joints. A tiny enthesophyte is seen at the insertion of the Achilles tendon. No soft tissue swelling is noted. XR/XR foot RT 2V IMPRESSION: NO ACUTE BONY FINDINGS. Impression dictated by: Mago Mejía M.D. 02/24/2025 10:08 AM Dictation Location: [place] [address] Electronically authenticated by: [id number] Date: 02/24/2025 10:08 Dictated By: Mago Mejía M.D. Signed By: 02/24/25 1010 DD/ 1008 TD/TT: [employer]: [place] [address] XRay Report Signed Patient: LIZ HERNANDEZ MR#: [id number] : 1965 Acct:[id number] Age/Sex: 59 / M ADM Date: 02/24/25 Loc: [facility] Attending Dr: Navya Verdin M.D. Ordering Physician: Nancy Verdin M.D. Date of Service: 02/24/25 Procedure(s): XR aida t RT 2V Accession Number(s): [id number] cc: Nancy Verdin M.D. [place] [address] Patient Name: LIZ HERNANDEZ MRN: [id number] date: 1965 Sex: M Assigned Patient Location: [facility] Current Patient Location: [facility] Accession/Order Numb er: [id number] Exam Date: 02/24/2025 10:02 Report Date: 02/24/2025 10:08 At the request of: NANCY VERDIN MD Procedure: XR foot R T 2V RIGHT FOOT - 2 views COMPARISON: None CLINICAL DATA: Later al right foot pain for the past few days. No definite injury. AP and lateral views were obtained. No acute fracture or dislocation is identified. Minor spurring is seen at the dorsum of the tarsals and tarsometatarsal join ts. A tiny enthesophyte is seen at the insertion of the Achilles tendon. No soft tissue swelling is noted. XR/XR foot RT 2V IMPRESSION: NO ACUTE BONY FINDINGS. Impression dictated by: Mago Mejía M.D. 02/24/2025 10:08 AM Dictation Location: [place] [address] Electronically authenticated by: [id number] Y Date: 02/24/2025 10:08 Dictated By: Mago Mejía M.D. Signed By: 02/24/25 1010 DD/ 1008 TD/TT: [employer]: PHUC KNEE LT 3V Reviewed date:01/02/2025 12:29:09 PM Interpretation: Performing Lab: Notes/Report: Source Facility: [place] [address] [place] [address] XRay Report Signed Patient: LIZ HERNANDEZ MR#: [id number] : 1965 Acct:[id number] Age/Sex: 59 / M ADM Date: 01/02/25 Loc: RAD Attending Dr: Nancy Verdin M.D. Ordering Physician: Nancy Verdin M.D. Date of Service: 01/02/25 Procedure(s): XR knee LT 3V Accession Number(s): [id number] cc: Nancy Verdin M.D. [place] [id number] Patient Name: LIZ HERNANDEZ MRN: [id number] date: 1965 Sex: M Assigned Patient Location: RAD Current Patient Location: RAD Accession/Order Number: [id number] Exam Date: 01/02/2025 10:27 Report Date: 01/02/2025 10:27 At the request of: NANCY VERDIN MD Procedure: XR knee LT 3V LEFT KNEE - 3 views CLINICAL HISTORY: Left Knee Pain COMPARISON: Acute left knee pain FINDINGS: Small joint effusion. No acute bony process or significant degenerative change. XR/XR knee LT 3V IMPRESSION: SMALL JOINT EFFUSION WITHOUT ACUTE BONY PROCESS. Impression dictated by: Anali Kingsley Jr.OCullen 01/02/2025 10:27 AM Dictation Location: [place] [address] Electronically authenticated by: [id number] Y Date: 01/02/2025 10:27 Dictated By: Chi Mcqueen M.D. Signed By: 01/02/25 1030 DD/ 1027 TD/TT: [employer] Oper[employer]: [place] [address] XRay Report Signed Patient: LIZ HERNANDEZ MR#: [id number] : 1965 Acct:[id number] Age/Sex: 59 / M ADM Date: 01/02/25 Loc: RAD Attending Dr: Navya Verdin M.D. Ordering Physician: Nancy Verdin M.D. Date of Service: 01/02/25 Procedure(s): XR kne e LT 3V Accession Number(s): [id number] cc: Nancy Verdin M.D. [address] [address] Patient Name: LIZ HERNANDEZ MRN: [id number] date: 1965 Sex: M Assigned Patient Location: RAD Current Patient Location: RAD Accession/Order Numb er: [id number] Exam Date: 01/02/2025 10:27 Report Date: 01/02/2025 10:27 At the request of: NANCY VERDIN MD Procedure: XR knee L T 3V LEFT KNEE - 3 views CLINICAL HISTORY: Le ft Knee Pain COMPARISON: Acute le ft knee pain FINDINGS: Small joint effusion . No acute bony process or significant degenerative change. XR/XR knee LT 3V IMPRESSION: SMALL JOINT EFFUSION WITHOUT ACUTE BONY PROCESS. Impression dictated by: Chi Mcqueen Jr., D.OCullen 01/02/2025 10:27 AM Dictation Location: [place] [address] Electronically authenticated by: [id number] Y Date: 01/02/2025 10:27 Dictated By: Chi Mcqueen M.D. Signed By: 01/02/25 1030 DD/ 1027 TD/TT: [employer]: Reason For Referral Diagnosis 1 Positive occult stoo l blood test (R19.5) Referral Organization [facility] Referring Provider First Name Remi Referring Provider Last Name Jim Referring Provider Speciality Family Med rebecca Referred Provider Michele Hamilton Referred Provider Specialty General Surg davie Referral Priority Routine Medications Medication SIG (Take, Route, Frequency, Duration) Notes Start Date End Date Status Glimepiride 4 MG 1 tablet with breakf ast or the first main meal of the day Orally Once a day for 90 days 10/17/2024 Active rOPINIRole HCl 0.5 MG 2 tablet 1 to 3 ho urs before bedtime Orally Once a day- may go up to 4 PO QHS for 30 days 03/05/2024 Active hydrALAZINE HCl 50 MG TAKE 1 TABLET BY M OUTH 3 TIMES DAILY for 90 Active traMADol HCl 50 MG 2 tablet as needed O rally TID Herniated lumbar disc for 30 days 03/10/2025 Active Lasix 40 MG 1 tablet Orally Once a day for 30 days 02/24/2025 Active Levothyroxine Sodium 150 MCG TAKE 1 TABLET BY MOUTH EVERY DAY IN THE MORNING ON AN EMPTY STOMACH for 90 days Active Potassium Chloride ER 10 MEQ 1 capsule with food Orally Twice a day for 90 days 02/24/2025 Active Carvedilol 25 MG TAKE 1 AND 1/2 TABLE TS BY MOUTH TWICE DAILY for 90 Active Pravastatin Sodium 20 MG TAKE 1 TABLET B Y MOUTH DAILY for 90 days Active Blood Glucose Meter -- Use glucose monit or daily to monitor glucose lever dx-E11.9 for 365 days 04/25/2025 Active Olmesartan Medoxomil 40 MG TAKE 1 TABLET BY MOUTH ONCE DAILY Orally Once a day for 90 days Active Blood Glucose Test - use strip to monito r blood glucose levels In Vitro once daily for 100 days 04/25/2025 Active Adipex-P 37.5 MG 1 tablet before pancho kfast Orally Once a day 04/25/2025 Active Meloxicam 15 MG 1 tablet Orally Once a day for 90 days 02/24/2025 Active Albuterol Sulfate HFA 108 (90 Base) MCG/ACT 1 puff as needed Inhalation every 4 hrs Active metFORMIN HCl 500 MG TAKE 1 TABLET BY MO [facility] TWICE DAILY for 90 days Active Aspirin 81 81 MG 1 tablet Orally Once a day Active Mounjaro 2.5 MG/0.5ML 2.5 mg Subcutaneou s weekly for 28 days 04/25/2025 Active Baclofen 10 MG Oral for 30 Days Active multivitamin Multiple Vitamins Active Social History Tobacco Use: Social History Observation Description Date Details (start date - stop date) Former Smoker 09/04/1979 - 09/04/1989 Tobacco Use/Smoking Question Answer Notes Patient is a former smoker When did you start smoking? 09/04/1979 When did you stop smoking? 09/04/1989 Alcohol Screen (Audit-C) Question Answer Notes Did you have a drink containing alcohol in the p ast year? No Points 0 Interpretation Negative AUDIT-C (Standard) Question Answer Notes Did you have a drink containing alcohol in the p ast year? No Points 0 Interpretation Negative Problems Problem Type SNOMED Code ICD Code Onset Dates Problem Status W/U Status Risk Notes Problem 80821610 Hypothyroidism, unspecified (E03.9) Active confirmed Problem 386714989 Elevated white blood cell count, unspecified (D72.829) Active confirmed Problem 221046030 Other intervertebral disc displacement, lumbar region (M51.26) Active confirmed Problem Chest pain (28233153) Chest pain (R07.9) Active confirmed Problem Hyperlipidemia (19140544) Hyperlipidemia (E78.5) Active confirmed Problem Hypertension (06494651) Hypertension (I10) Active confirmed Problem Osteoarthritis (425582282) Osteoarthritis (M19.90) Active confirmed Problem Gastroesophageal reflux disease (154913477) GERD (gastroesophageal reflux disease) (K21.9) Active confirmed Problem Cervical radiculopathy (39881146) Cervical radiculopathy (M54.12) Active confirmed Problem Obstructive sleep apnea syndrome (99878029) MARGE (obstructive sleep apnea) (G47.33) Active confirmed Problem Left knee pain (420647449870498) Left knee pain (M25.562) Active confirmed Problem Dermatofibroma (298337194) Dermatofibroma (D23.9) Active confirmed Problem Kidney stone (57667969) Kidney stones (N20.0) Active confirmed Problem Allergic rhinitis (59757419) Allergic rhinitis (J30.9) Active confirmed Problem Pain in right foot (317236674209463) Right foot pain (M79.671) Active confirmed Problem Well adult (872411920) Well adult (Z00.00) Active confirmed Problem Cramp in lower limb (996859071) Leg cramps (R25.2) Active confirmed Problem Displacement of lumbar intervertebral disc without myelopathy (64841059) Herniated lumbar disc without myelopathy (M51.26) Active confirmed Problem Chill (80981127) Chills (R68.83) Active confirm ed Problem Degeneration of thoracic intervertebral disc (08771512) Degenerative disc disease, 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 confirmed Problem Diverticular disease of colon (825516330) Diverticular disease of colon (K57.30) Active confirmed Problem Type II diabetes mellitus without complication (316675472) Controlled type 2 diabetes mellitus (E11.9) Active confirmed Problem Neurogenic claudication (135585765) Lumbar stenosis with neurogenic claudication (M48.062) Active confirmed Problem Osteoarthritis of knee (893381053) Osteoarthritis of right knee (M17.11) Active confirmed Vital Signs Temperature 97.9 degrees Fahrenheit 05/06/2025 Blood pressure diastolic 82 mm Hg 05/06/2025 Height 74 in 05/06/2025 Blood pressure systolic 130 mm Hg 05/06/2025 Weight 336.8 lbs 05/06/2025 BMI 43.24 kg/m2 05/06/2025 Procedures Procedure Date Ordered Date Performed Result Body Sit e Sleep Study: Retitration BIPAP/CPAP 12/10/2024 N/A Encounters Encounter Location Date Provider Diagnosis [facility] [address] [place] [address] 05/06/2025 Remi Gusmany [facility] [address] [place] [address] 05/07/2025 Remi Gusmany Elevated liver funct ion tests R94.5 [facility] [address] [place] [address] 12/30/2024 Remi Verdin [facility] [address] [place] [address] 01/02/2025 Remi Gusmany [facility] [address] [place] [address] 01/28/2025 Remi Hoy Herniated lumbar dis c without myelopathy M51.26 [facility] [address] [place] [address] 02/24/2025 Remi Hoy Right foot pain M79. 671 [facility] [address] [place], [place] [id number] 02/27/2025 Remi Gusmany [facility] [address] [place] [address] 04/25/2025 Remi Hoy [facility] [address] [place] [address] 09/30/2024 Remi Hoy Well adult Z00.00 [facility] [address] [place] [address] 10/14/2024 Remi Hoy Hypertension I10 ; Hyperlipidemia E78.5 ; Controlled type 2 diabetes mellitus E11.9 ; Well adult Z00.00 and Hypothyroidism, unspecified E03.9 [facility] [address] [place] [address] 10/16/2024 Remi Hoy Other intervertebral disc displacement, lumbar region M51.26 and Hypothyroidism, unspecified E03.9 [facility] [address] [place] [address] 10/17/2024 Remi Hoy Positive occult stoo l blood test R19.5 [facility] [address] [place] [address] 11/17/2024 Remi Hoy [facility] [address] [place] [facility] [place] [address] 12/16/2024 Remi Hoy [facility] [address] [place] [facility] [place] [address] 07/24/2024 Remi Hoy [facility] [address] [place] [address] 09/11/2024 Remi Hoy Hypertension I10 ; Hyperlipidemia E78.5 ; MARGE (obstructive sleep apnea) G47.33 ; Herniated lumbar disc without myelopathy M51.26 and Controlled type 2 diabetes mellitus E11.9 [facility] [address] [place] [facility] [place] [address] 12/10/2024 Remi Hoy Hyperlipidemia E78.5 ; Hypertension I10 ; MARGE (obstructive sleep apnea) G47.33 ; Herniated lumbar disc without myelopathy M51.26 and Controlled type 2 diabetes mellitus E11.9 [facility] [address] [place] [address] 01/02/2025 Remi Hoy Left knee pain M25.5 62 [facility] [address] [place] [address] 03/10/2025 Remi Hoy Hypertension I10 ; Herniated lumbar disc without myelopathy M51.26 ; Leg cramps R25.2 and Controlled type 2 diabetes mellitus E11.9 [facility] [address] [place] [facility] [place] [address] 04/25/2025 Remi Hoy Hypertension I10 ; Herniated lumbar disc without myelopathy M51.26 and Controlled type 2 diabetes mellitus E11.9 [facility] [address] [place] [facility] [place] [address] 05/06/2025 Remi Hoy Chest pain R07.9 and Chills R68.83 [facility] [address] [place] [address] 02/24/2025 Remi Hoy Right foot pain M79. 671 Assessments Encounter Date Diagnosis (ICD Code) Assessment Notes Treatment Notes Treatment Clinical Notes Section Notes 09/11/2024 Hypertension (ICD-10 - I10) could be better contrl 09/11/2024 Hyperlipidemia (ICD-10 - E78.5) on meds 12/10/2024 Hyperlipidemia (ICD-10 - E78.5) 12/10/2024 Hypertension (ICD-10 - I10) 01/02/2025 Left knee pain (ICD-10 - M25.562) 02/24/2025 Right foot pain (ICD-10 - M79.671) 03/10/2025 Hypertension (ICD-10 - I10) 03/10/2025 Herniated lumbar disc without myelopathy (ICD-10 - M51.26) 09/30/2024 Well adult (ICD-10 - Z00.00) 10/14/2024 Hypertension (ICD-10 - I10) 05/06/2025 Chest pain (ICD-10 - R07.9) 05/06/2025 Chills (ICD-10 - R68.83) 04/25/2025 Hypertension (ICD-10 - I10) 04/25/2025 Herniated lumbar disc without myelopathy (ICD-10 - M51.26) 10/16/2024 Other intervertebral disc displacement, lumbar region (ICD-10 - M51.26) 10/17/2024 Positive occult stool blood test (ICD-10 - R19.5) 01/28/2025 Herniated lumbar disc without myelopathy (ICD-10 - M51.26) 02/24/2025 Right foot pain (ICD-10 - M79.671) 05/07/2025 Elevated liver function tests (ICD-10 - R94.5) 10/16/2024 Hypothyroidism, unspecified (ICD-10 - E03.9) 04/25/2025 Controlled type 2 diabetes mellitus (ICD-10 - E11.9) 10/14/2024 Hyperlipidemia (ICD-10 - E78.5) 03/10/2025 Leg cramps (ICD-10 - R25.2) 12/10/2024 MARGE (obstructive sleep apnea) (ICD-10 - G47.33) needs repeta sleep study - not as effective 09/11/2024 MARGE (obstructive sleep apnea) (ICD-10 - G47.33) mask helping 09/11/2024 Herniated lumbar disc without myelopathy (ICD-10 - M51.26) on meds 12/10/2024 Herniated lumbar disc without myelopathy (ICD-10 - M51.26) 03/10/2025 Controlled type 2 diabetes mellitus (ICD-10 - E11.9) 10/14/2024 Controlled type 2 diabetes mellitus (ICD-10 - E11.9) 10/14/2024 Well adult (ICD-10 - Z00.00) 12/10/2024 Controlled type 2 diabetes mellitus (ICD-10 - E11.9) 09/11/2024 Controlled type 2 diabetes mellitus (ICD-10 - E11.9) adding jarciance 10/14/2024 Hypothyroidism, unspecified (ICD-10 - E03.9) Plan Of Treatment Pending Test Test Name Order Date CMP (COMPLETE METABOLIC PANEL) 3 HEMOGLOBIN A1C (GLYCO) 06/23/2023 LIPID PANEL (CHOL/TRIG/HDL/LDL) 06/23/20 23 CBC WITH DIFF 06/23/2023 PSA, PROSTATE-SPECIFIC ANTIGEN 3 MRI Lumbar Spine w/wo contrast T3 FREE, T4 FREE and TSH 11/19/2023 T3 FREE, T4 FREE and TSH 06/27/2023 FECAL OCCULT BLOOD 10/14/2024 Sleep Study: Retitration BIPAP/CPAP 04/2025 CMP - Comprehensive Metabolic Panel 10/05 XR Orbits Complete 12/28/2023 CBC W/AUTO DIFF 03/04/2024 High Sensitivity Troponin 05/06/2025 AMMONIA 05/07/2025 HEPATITIS PANEL, ACUTE 05/07/2025 LIVER PROFILE 05/07/2025 MONO 05/07/2025 PROTIME 05/07/2025 PTT 05/07/2025 THYROID PROFILE WITH TSH 03/04/2024 XR CSPINE MIN 4 VIEWS 11/16/2023 XR LSPINE 2_3 VIEWS 11/16/2023 THYROID PANEL (T4/TSH/FREE T3) 3 THYROID PANEL (T4/TSH/FREE T3) 4 THYROID PANEL (T4/TSH/FREE T3) 5 THYROID PANEL (T4/TSH/FREE T3) 5 XR HIP LT 2 3V W PELVIS 11/16/2023 MRI FOOT RT WO CON 02/24/2025 PSA, SCREENING 10/14/2024 EBV Antibody Profile 05/07/2025 Next Appt Details Provider Name:Remi Verdin, 08:30:00 AM, [address] [place], [address], Provider Name:Remi Verdin, 08:30:00 AM, [address] [place], [address], Insurance Providers Payer Name Payer Address Payer Phone Subscriber Number Group Number Insured Name Patient Relationship to Insured Coverage Start Date Coverage End Date [employer] [address] [place] [phone] [id number] Liz Hernandez Self - patient is the insured Medications Administered Medication Instructions Date of Administration Dosage Notes Kenalog-40 11/16/2023 120 mg Kenalog-40 11/22/2023 120 mg Ketorolac Tromethamine 11/16/2023 60 mg Ketorolac Tromethamine 11/22/2023 60 mg Ketorolac Tromethamine 12/11/2023 60 mg Ketorolac Tromethamine 12/12/2023 60 mg Orphenadrine Citrate 11/16/2023 60 mg Orphenadrine Citrate 11/22/2023 60 mg Orphenadrine Citrate 12/11/2023 60 mg Orphenadrine Citrate 12/12/2023 60 mg Medical (General) History Medical History History ICD Code Hypertension I10 Kidney stones N20.0 Dermatofibroma D23.9 Herniated lumbar disc without myelopathy M51.26 Hyperlipidemia E78.5 Osteoarthritis of right knee M17.11 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 34 Controlled type 2 diabetes mellitus E11. 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
--- OUTSIDE RECORDS SUMMARY | 2025-05-08 08:26 | XMS_ITS | Clinical Summary ---
Author Organization [facility] Address [address] [place] [address] Care Team Providers Care Electric Organ Checker Name Role Phone Asim Fernandez MD Primary Care Provider [phone] Social History Tobacco Use Types Packs/Day Years [...] (#1) 2025 Insurance [employer] Care Teams Electric Organ Checker Relationship Specialty Start Date End Date Asim Fernandez MD [address] [place] [id number] PCP - General Family Medicine 01/17/25
--- OUTSIDE RECORDS SUMMARY | 2025-05-08 08:26 | XMS_ITS | Clinical Summary ---
Author Organization [facility] Address [id number] [place] [address] Care Team Providers Care Dairy Lab Technician Name Role Phone Unavailable Primary Care Provider [...]
--- OUTSIDE RECORDS SUMMARY | 2025-05-08 08:27 | XMS_ITS | Clinical Summary ---
Author Organization [facility] Address [address] [place] [address], [address] [place] [address] Care Team Providers Care As400 Programmer Name Role Phone Unavailable Primary Care Provider [...]
--- OUTSIDE RECORDS SUMMARY | 2025-05-08 08:28 | XMS_ITS | CCD ---
Author Organization [facility] CliniSynm Care Team Providers Care Bowl Attendant Name Role Phone Asim Fernandez Primary Care Physician [phone] DR ASIM FERNANDEZ Primary Care Unavailable GIOVANA, [...] Asim Fernandez MD Primary Care Provider Turovskaya REGISTERED NURSE MATERNITY, Colleen Attending Provider Unavailable Primary Care Provider [facility] Asim Fernandez MD Primary Care Provider [...] Attending Provider Tanisha Ocampo DO Attending Provider Asim Fernandez MD Primary Care Provider Colleen Aquino APRN Attending Provider Tanisha Ocampo DO Other Provider Nithin CANTOR, Williams Amaral Attending Provider Turovskaya, Colleen Admitting Unavailable Turovskaya, Colleen Attending [...] behavior (finding) [facility] Medications Current Medications Medication Drug Class(es) [...] 30 cap(s), Refills(s) 2, Pharmacy: [facility] #[id number], 188, cm, 06/10/22 9:57:00 EDT, Height/Length Dosing, [...] Start: 02-19-2019 take 2 tablets by mo [facility] once daily in the morning hydrochlorothiazide [...] 02-19-2019 Episodic Other aftercare (1 source) Other prison (current) drug therapy; Translations: [OTH [facility] CURRENT DRUG THERAPY] Onset: 05-31-20 Episodic Other aftercare (1 source) emt intermediate (current) use of aspirin; Translations: [[facility] CURRENT USE OF ASPIRIN] Onset: 05-31-20 Episodic [...] wo conon CT lumbar spine wo con [facility] [place] [address] CT Scan Report Signed Patient: Liz Hernandez MR#: [id number] 5 : 1965 Acct:[id number] Age/Sex: 59 / M ADM Date: 03/18/25 Loc: CT Room: Type: [facility] Attending Dr: Colleen Aquino APRN Copies to: [...] with vacuum disc phenomenon L5-S1 and L2-L3. Xvzp-gi-ddaczuat intervertebral space narrowing with mediastinal L3-L5. Multilevel moderate severe facet arthropathy greatest L4-S1. No fracture malalignment multilevel central canal and foraminal encroachment is better evaluated on recent MRI. CT/CT lumbar spine wo con IMPRESSION: Moderate severe multilevel degenerative changes. Negative acute fracture or malalignment Impression dictated by: Christopher Mendes M.D. 03/18/2025 9:20 AM Dictation Location: [place] [address] Transcribed By: [facility] 03/18/25 0920 Dictated By: Christopher Mendes MD 03/18/25 0916 Signed By: 03/18/25 0920 Normal [facility] MR lumbar spine wo conon MR lumbar spine wo con [facility] [place] [address] [place] [address] MRI Report Signed Patient: Liz Hernandez MR#: [id number] 5 : 1965 Acct:[id number] Age/Sex: 59 / M ADM Date: 02/28/25 Loc: Room: Type: [facility] Attending Dr: Colleen Aquino APRN Copies [...] Figueroa M.D. 02/28/2025 10:53 AM Dictation Location: [place] [address] Transcribed By: ARNULFO 02/28/25 1053 Dictated By: Liz Figueroa II, MD 02/28/25 1044 Signed By: 02/28/25 1053 Normal [facility] Magnetic resonance imaging r eportOrdered By: Liz Figueroa on 02-28-2025 Study report [facility] [place] [address] [place] [address] MRI Report Signed Patient: Liz Hernandez MR#: [id number] : 1965 Acct:[id number] Age/Sex: 59 / M ADM Date: 5 Loc: Room: Type: [facility] Attending Dr: Colleen Aquino APRN Copies to: [...] Figueroa M.D. 02/28/2025 10:53 AM Dictation Location: [place] [address] Transcribed By: ARNULFO 02/28/25 1053 Dictated By: Liz Figueroa II, MD 02/28/25 1044 Signed By: 02/28/25 1053 [facility] Work Phone: X-ray reportOrdered By: Foreign Mcqueen on 12-26-2024 Study report [facility] [place] [address] [address] XRay Report Signed Patient: Liz Hernandez MR#: [id number] : 1965 Acct:[id number] Age/Sex: 59 / M ADM Date: 5 Loc: XD Room: Type: REG CLI Attending Dr: Colleen Aquino REGISTERED NURSE MATERNITY Copies to: Colleen Aquino APRN~ Ordering Provider: [...] Mcqueen Jr., D.OCullen12/26/2024 2:42 PM Dictation Location: [place] [address] Transcribed By: [facility] 12/26/24 1442 Dictated By: Chi Mcqueen Jr, DO 12/26/24 1441 Signed By: 12/26/24 1442 [facility] XR lumbar spine 6V w bending on 12-26-2024 XR lumbar spine 6V w bending [facility] Main [address] [address] XRay Report Signed Patient: Liz Hernandez MR#: [id number] 5 : 1965 Acct:[id number] Age/Sex: 59 / M ADM Date: 12/26/24 Loc: XD Room: Type: REG CLI Attending Dr: Colleen Aquino REGISTERED NURSE MATERNITY Copies to: Colleen Aquino APRN Ordering Provider: Colleen Turovskaya, REGISTERED NURSE MATERNITY Date of Service: 12/26/24 XR/XR lumbar spine [...] Mcqueen Jr., D.O.12/26/2024 2:42 PM Dictation Location: [place] [address] Transcribed By: [facility] 12/26/24 1442 Dictated By: Chi Mcqueen Jr, DO 12/26/24 1441 Signed By: 12/26/24 1442 [facility] Ambulatory Visit Summaryon 0 10-29-2024 Ambulatory Visit [...] Monday 8:00 AM EDT With: GIOVANA CANTOR, Porsche Kwan Where: [facility] [address] [place] [address]- Medications What How Much When Instructions Unchanged [...] for choosing us for your care. Normal [facility] Reminderson 10-29-2024 Reminders Reminders From: Alexia Vega LPN To: GSN - Clinical; Sent: 10/29/2024 09:31:53 EST Show up: 02/16/2029 07:00:00 EDT Subject: colonoscopy recall Due Date/Time: 03/04/2029 07:00:00 EDT Reminder/Recall Patient is due for screening colonoscopy 03/2029. Normal [facility] Urology Office/Clinic Noteon 09-12-2024 Urology Office/Clinic [...] Urnls Dip Stick Auto w/o Microscopy POC 43042 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 Normal [facility] Comment on above: Result Comment: Elec [...] Porsche AKHTAR MD Where: [facility] [address] [place] [address]- You Need to Schedule the Following Appointments Follow Up with Porsche AKHTAR MD, URL When: Where: [address] [address]- Medications What How Much When [...] Elevated PSA History of procedure Hx of prison use of blood thinners Hyperuricosuria Hypocitraturia Kidney [...] bladder. (more content not included)... Normal [facility] Ambulatory Visit Summaryon 1 Ambulatory Visit [...] Porsche AKHTAR MD Where: [facility] [address] 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 (more content not included)... Normal [facility] Urology Office/Clinic Noteon 06-11-2024 Urology Office/Clinic [...] KUB was read as negative at the [facility] but to my review there may [...] Information GIOVANA CANTOR, Porsche Kwan, URL [address] [place] [address]- Additional Instructions: 1 yr with KUB and [...] with voice recognition artificial intelligence software, specifically Client Outlook, [employer] and or [employer]. Substitutions may have occurred due to the inherent limitations of voice recognition and artificial intelligence software. Problem List/Past Medical History Ongoing BMI 40.0-44.9, adult BPH (benign prostatic hyperplasia) Chronic anticoagulation Dermatofibroma of left upper arm Diabetes mellitus type 2, noninsulin dependent Elevated PSA Hx of prison use of blood thinners Kidney stone Nocturia Osteoarthritis Historical GERD (gastroesophag (more content not included)... Normal [facility] Comment on above: Result Comment: Elec [...] by: MANSOOR LIMA Date: 2022-06-16 18:56 Normal [facility] XR KUB 1 VIEWon 06-09-2022 [...] MANSOOR LIMA Date: 2022-06-09 17:41 Normal [facility] CBC AUTO DIFFon 05-29-2022 BASO # 0.1 103/ul Normal 0.0-0.1 [facility] Comment on above: Performed By: #### C BC ####[facility] [address] [place], [place] [address]SnCullen Aldrich Basophils/100 WBC (Bld) 0.2 % Normal 0.2-2.0 [facility] Comment on above: Performed By: #### C BC ####[facility] [address] [place] [address]Dr. Wyatt Aldrich EO # 0.0 103/ul Normal 0.0-0.7 [facility] Comment on above: Performed By: #### C BC ####[facility] [address] [place] [address]Dr. Wyatt Aldrich Eosinophils/100 WBC (Bld) 0.2 % Critically low 0.9-7.0 [facility] Comment on above: Performed By: #### C BC ####[facility] [address] [place], [place] [address]Dr. Wyatt Aldrich Erythrocyte distribution width (RBC) [Ratio] 12.3 % Normal 11.0-15.0 [facility] Comment on above: Performed By: #### C BC ####[facility] [address] [place], [place] [address]Dr. Wyatt Aldrich Hematocrit (Bld) [Volume fraction] 45.9 % Normal 42.0-54.0 [facility] Comment on above: Performed By: #### C BC ####[facility] [address] [place] [address]Dr. Wyatt Aldrich Hemoglobin (Bld) [Mass/Vol] 15.2 g/dL Normal 14.0-18.0 [facility] Comment on above: Performed By: #### C BC ####[facility] [address] [place] [address]Dr. Wyatt Aldrich IG # 0.09 10e3/ul Critically high 0.00-0.03 [facility] Comment on above: Performed By: #### C BC ####[facility] [address] [place] [address]Dr. Wyatt Aldrich IG % 0.4 % Normal 0.0-0.5 [facility] Comment on above: Performed By: #### C BC ####[facility] [address] [place], [place] [address]Dr. Wyatt Aldrich LYMPH # 1.1 103/ul Critically low 1.2-3.8 [facility] Comment on above: Performed By: #### C BC ####[facility] [address] [place] [address]Dr. Wyatt Valdemar Lymphocytes/100 WBC (Bld) 5.1 % Critically low 20.5-60.0 [facility] Comment on above: Performed By: #### C BC ####[facility] [address] [place] [address]Dr. Jossielalo Aldrich MANUAL DIFF REQ NO Normal [facility] Comment on above: Performed By: #### C BC ####[facility] [address] [place] [address]Dr. Wyatt Valdemar MCH (RBC) [Entitic mass] 30.2 pg Normal 25.9-34.0 [facility] Comment on above: Performed By: #### C BC ####[facility] [address] [place], [place] [address]Dr. Jossielalo Aldrich MCHC (RBC) [Mass/Vol] 33.1 g/dL Normal 29.9-35.2 [facility] Comment on above: Performed By: #### C BC ####[facility] [address] [place], [place] [address]Dr. Wyatt Valdemar MCV (RBC) [Entitic vol] 91.3 fL Normal 80.0-94.0 [facility] Comment on above: Performed By: #### C BC ####[facility] [address] [place], [place] [address]Dr. Wyatt Aldrich MONO # 1.4 103/ul Critically high 0.3-0.8 [facility] Comment on above: Performed By: #### C BC ####[facility] [address] [place], [place] [address]Dr. Jossielalo Aldrich Monocytes/100 WBC (Bld) 6.7 % Normal 1.7-12.0 [facility] Comment on above: Performed By: #### C BC ####[facility] [address] [place], [place] [address]Dr. Wyatt Aldrich NEUT # 18.5 103/ul Critically high 1.4-6.5 [facility] Comment on above: Performed By: #### C BC ####[facility] [address] [place], [place] [address]Vf. Wyatt Aldrich Neutrophils/100 WBC (Bld) 87.4 % Critically high 43.0-75.0 [facility] Comment on above: Performed By: #### C BC ####[facility] [address] [place], [place] [address]Pu. Wyatt Aldrich Platelet mean volume (Bld) [Entitic vol] 9.3 fL Critically low 9.5-13.5 [facility] Comment on above: Performed By: #### C BC ####[facility] [address] [place], [place] [address]Ht. Wyatt Aldrich PLT 303 103/ul Normal 150-450 [facility] Comment on above: Performed By: #### C BC ####[facility] [address] [place], [place] [address]Ux. Wyatt Aldrich RBC 5.03 106/ul Normal 4.70-6.10 [facility] Comment on above: Performed By: #### C BC ####[facility] [address] [place], [place] [address]Sp. Wyatt Aldrich WBC 21.2 103/ul Critically high 4.0-11.0 [facility] Comment on above: Performed By: #### C BC ####[facility] [address] [place], [place] [address]Nv. Wy[address] CT ABD/PELVIS WO CONon 05-29 [...] by: BOO GUZMAN Date: 2022-05-29 17:32 Normal [facility] ER URINE PROFILEon 2 Bilirubin Ql (U) Negative Normal NEGATIVE [facility] Comment on above: Performed By: #### U MICRO, ERUR #### [facility] [address] [place] [address] Dr. Wyatt Aldrich Clarity (U) CLEAR Normal CLEAR [facility] Comment on above: Performed By: #### U MICRO, ERUR #### [facility] [address] [place] [address] Dr. Wyatt Aldrich Color (U) LT. YELLOW Normal YELLOW [facility] Comment on above: Performed By: #### U MICRO, ERUR #### [facility] [address] [place] [address] [address] Wyatt [place] A micrscopic examination will be performed if indicated. Normal [facility] Comment on above: Performed By: #### U MICRO, ERUR #### [facility] [address] [place] [address] [address] Wyatt Aldrich Glucose Ql (U) Negative Normal NEGATIVE [facility] Comment on above: Performed By: #### U MICRO, ERUR #### [facility] [address] [place] [address] [address] Wyatt Aldrich Hemoglobin Ql (U) TRACE-INTACT Abnormal NEGATIVE [facility] Comment on above: Performed By: #### U MICRO, ERUR #### [facility] [address] [place] [address] Dr. Wyatt Aldrich Ketones Ql (U) Negative Normal NEGATIVE [facility] Comment on above: Performed By: #### U MICRO, ERUR #### [facility] [address] [place] [address] Dr. Wyatt Aldrich LEUKOCYTES Negative Normal NEGATIVE [facility] Comment on above: Performed By: #### U MICRO, ERUR #### [facility] [address] [place] [address] Dr. Wyatt Aldrich Nitrite Ql (U) Negative Normal NEGATIVE [facility] Comment on above: Performed By: #### U MICRO, ERUR #### [facility] [address] [place] [address] Dr. Wyatt Aldrich pH (U) 7.0 [pH] Normal 5-9 [facility] Comment on above: Performed By: #### U MICRO, ERUR #### [facility] [address] [place] [address] Dr. Wyatt Aldrich SPEC GRAVITY 1.020 Normal 1.005-<=1.025 [facility] Comment on above: Performed By: #### U MICRO, ERUR #### [facility] [address] [place] [address] Dr. Wyatt Aldrich UA PROTEIN Negative Normal NEGATIVE/ TRACE [facility] Comment on above: Performed By: #### U MICRO, ERUR #### [facility] [address] [place] [address] Dr. Wyatt Aldrich UR MICRO IND INDICATED Normal [facility] Comment on above: Performed By: #### U MICRO, ERUR #### [facility] [address] [place] [address] Dr. Wyatt Aldrich Urobilinogen Qn (U) 0.2 {Sharon'U}/dL Normal 0.2 - 1. 0 [facility] Comment on above: Performed By: #### U MICRO, ERUR #### [facility] [address] [place] [address] Dr. Wyatt Aldrich PROF 14(COMP METB)on 022 Albumin [Mass/Vol] 3.9 g/dL Normal 3.4-5.0 [facility] Comment on above: Performed By: #### C MP #### [facility] [address] [place] [address] Dr. Wyatt Aldrich Albumin/Globulin [Mass ratio] 1.1 {ratio} Normal [facility] Comment on above: Performed By: #### C MP #### [facility] [address] [place] [address] Dr. Wyatt Aldrich ALP [Catalytic activity/Vol] 70 U/L Normal 46-116 [facility] Comment on above: Performed By: #### C MP #### [facility] [address] [place] [address] Dr. Wyatt Aldrich ALT [Catalytic activity/Vol] 38 U/L Normal 16-63 [facility] Comment on above: Performed By: #### C MP #### [facility] [address] [place] [address] Dr. Wyatt Aldrich Anion gap [Moles/Vol] 12.6 mmol/L Normal [facility] Comment on above: Performed By: #### C MP #### [facility] [address] [place] [address] Dr. Wyatt Aldrich AST [Catalytic activity/Vol] 20 U/L Normal 15-37 [facility] Comment on above: Performed By: #### C MP #### [facility] [address] [place] [address] Dr. Wyatt Aldrich Bilirubin [Mass/Vol] 0.6 mg/dL Normal 0.2-1.0 [facility] Comment on above: Performed By: #### C MP #### [facility] [address] [place] [address] Dr. Wyatt Aldrich Calcium [Mass/Vol] 8.7 mg/dL Normal 8.5-10.1 [facility] Comment on above: Performed By: #### C MP #### [facility] [address] [place] [address] [address] Wyatt Aldrich Chloride [Moles/Vol] 95 mmol/L Critically low 98-107 [facility] Comment on above: Performed By: #### C MP #### [facility] [address] [place] [address] Dr. Wyatt Aldrich CO2 [Moles/Vol] 29.9 mmol/L Normal 21.0-32.0 [facility] Comment on above: Performed By: #### C MP #### [facility] [address] [place] [address] [address] Wyatt Aldrich Creatinine [Mass/Vol] 1.04 mg/dL Normal 0.70-1.30 [facility] Comment on above: Performed By: #### C MP #### [facility] [address] [place] [address] [address] Wyatt Aldrich EGFR-AF IRISH >60 Normal >=60 [facility] Comment on above: Performed By: #### C MP #### [facility] [address] [place] [address] [address] Wyatt Aldrich EGFR-NON AF IRISH >60 Normal >=60 [facility] Comment on above: Performed By: #### C MP #### [facility] [address] [place] [address] Dr. Wyatt Aldrich Globulin (S) [Mass/Vol] 3.4 g/dL Normal [facility] Comment on above: Performed By: #### C MP #### [facility] [address] [place] [address] [address] Wyatt Aldrich Glucose [Mass/Vol] 148 mg/dL Critically high 74-106 [facility] Comment on above: Performed By: #### C MP #### [facility] [address] [place] [address] Dr. Wyatt Aldrich Potassium [Moles/Vol] 4.5 mmol/L Normal 3.5-5.1 [facility] Comment on above: Performed By: #### C MP #### [facility] [address] [place] [address] [address] Wyatt Aldrich Protein [Mass/Vol] 7.3 g/dL Normal 6.4-8.2 [facility] Comment on above: Performed By: #### C MP #### [facility] [address] [place] [address] [address] Wyatt Aldrich Sodium [Moles/Vol] 133 mmol/L Critically low 136-145 [facility] Comment on above: Performed By: #### C MP #### [facility] [address] [place] [address] [address] Wyatt Aldrich Urea nitrogen [Mass/Vol] 15.0 mg/dL Normal 7.0-18.0 [facility] Comment on above: Performed By: #### C MP #### [facility] [address] [place] [address] Dr. Wyatt Aldrich Urea nitrogen/Creatinine [Mass ratio] 14.4 mg/mg Normal [facility] Comment on above: Performed By: #### C MP #### [facility] [address] [place] [address] Dr. Wyatt Aldrich URINE MICROSCOPIC ONLYon BACTERIA NONE SEEN Normal NONE SEEN [facility] Comment on above: Performed By: #### U MICRO, ERUR #### [facility] [address] [place] [address] Dr. Wyatt Aldrich Bacteria identified Cx Nom (U) NOT INDICATED Normal [facility] Comment on above: Performed By: #### U MICRO, ERUR #### [facility] [address] [place] [address] Dr. Wyatt Aldrich CAST NONE SEEN Normal NONE SEEN [facility] Comment on above: Performed By: #### U MICRO, ERUR #### [facility] [address] [place] [address] Dr. Wyatt Aldrich Crystals LM Nom (Urine sed) NONE SEEN Normal NONE SEEN [facility] Comment on above: Performed By: #### U MICRO, ERUR #### [facility] [address] [place] [address] Dr. Wyatt Aldrich Epithelial cells LM Ql (Urine sed) NONE SEEN Normal NONE SEEN /RARE [facility] Comment on above: Performed By: #### U MICRO, ERUR #### [facility] [address] [place] [address] Dr. Wyatt Aldrich MUCOUS NONE SEEN Normal NONE SEEN [facility] Comment on above: Performed By: #### U MICRO, ERUR #### [facility] [address] [place] [address] Dr. Wyatt Aldrich RBC 2-5 Abnormal 0-2 [facility] Comment on above: Performed By: #### U MICRO, ERUR #### [facility] [address] [place] [address] [address] Wyatt Aldrich WBC NONE SEEN Normal NONE SEEN [facility] Comment on above: Performed By: #### U MICRO, ERUR #### [facility] [address] [place] [address] [address] Wyatt Aldrich T4 LABCORPon 01-29-2022 T4 [Mass/Vol] 9.1 ug/dL Normal 4.5-12.0 [facility] Comment on above: Performed By: #### T 4LC ####[facility] [address] [place] [address]Dr. Wyatt Aldrich CBC AUTO DIFFon 01-28-2022 BASO # 0.1 103/ul Normal 0.0-0.1 [facility] Comment on above: Performed By: #### C BC ####[facility] [address] [place], [place] [address]DrCullen Aldrich Basophils/100 WBC (Bld) 0.6 % Normal 0.2-2.0 [facility] Comment on above: Performed By: #### C BC ####[facility] [address] [place], [place] [address]Dr. Wyatt Aldrich EO # 0.2 103/ul Normal 0.0-0.7 [facility] Comment on above: Performed By: #### C BC ####[facility] Xxou[address] [place], [place] [address]DrCullen Aldrich Eosinophils/100 WBC (Bld) 2.4 % Normal 0.9-7.0 [facility] Comment on above: Performed By: #### C BC ####[facility] S[address] [place], [place] [address]DrCullen Aldrich Erythrocyte distribution width (RBC) [Ratio] 12.5 % Normal 11.0-15.0 [facility] Comment on above: Performed By: #### C BC ####[facility] Pq[address] [place], [place] [address]DrCullen Aldrich Hematocrit (Bld) [Volume fraction] 43.5 % Normal 42.0-54.0 [facility] Comment on above: Performed By: #### C BC ####[facility] [address] [place] [address]DrCullen Aldrich Hemoglobin (Bld) [Mass/Vol] 14.4 g/dL Normal 14.0-18.0 [facility] Comment on above: Performed By: #### C BC ####[facility] [address] [place] [address]Dr. Wyatt Aldrich IG # 0.03 10e3/ul Normal 0.00-0.03 [facility] Comment on above: Performed By: #### C BC ####[facility] [address] [place], [place] [address]DrCullen Aldrich IG % 0.4 % Normal 0.0-0.5 [facility] Comment on above: Performed By: #### C BC ####[facility] [address] [place], [place] [address]DrCullen Aldrich LYMPH # 2.1 103/ul Normal 1.2-3.8 [facility] Comment on above: Performed By: #### C BC ####[facility] Fc[address]puc[address] [place], [place] [address]DrCullen Aldrich Lymphocytes/100 WBC (Bld) 24.8 % Normal 20.5-60.0 [facility] Comment on above: Performed By: #### C BC ####[facility] [address] [place] [address]DrCullen Aldrich MANUAL DIFF REQ NO Normal [facility] Comment on above: Performed By: #### C BC ####[facility] [address] [place] [id number] Aldrich MCH (RBC) [Entitic mass] 30.6 pg Normal 25.9-34.0 [facility] Comment on above: Performed By: #### C BC ####[facility] [address] [place] [id number] Aldrich MCHC (RBC) [Mass/Vol] 33.1 g/dL Normal 29.9-35.2 [facility] Comment on above: Performed By: #### C BC ####[facility] [address] [place] [address]DrCullen Wyatt Valdemar MCV (RBC) [Entitic vol] 92.6 fL Normal 80.0-94.0 [facility] Comment on above: Performed By: #### C BC ####[facility] [address] [place] [address]DrCullen Aldrich MONO # 0.6 103/ul Normal 0.3-0.8 [facility] Comment on above: Performed By: #### C BC ####[facility] Rxkwtladvm[address] [place] [address]DrCullen Aldrich Monocytes/100 WBC (Bld) 7.7 % Normal 1.7-12.0 [facility] Comment on above: Performed By: #### C BC ####[facility] Xhe[address] [place], [place] [address]Dr. Wyatt Aldrich NEUT # 5.3 103/ul Normal 1.4-6.5 [facility] Comment on above: Performed By: #### C BC ####[facility] [address] [place], [place] [address]Dr. Wyatt Aldrich Neutrophils/100 WBC (Bld) 64.1 % Normal 43.0-75.0 [facility] Comment on above: Performed By: #### C BC ####[facility] [address]uk[address] [place] [address]DrCullen Aldrich Platelet mean volume (Bld) [Entitic vol] 9.4 fL Critically low 9.5-13.5 [facility] Comment on above: Performed By: #### C BC ####[facility] X[address] [place], [place] [address]Dr. Wyatt Aldrich PLT 280 103/ul Normal 150-450 [facility] Comment on above: Performed By: #### C BC ####[facility] [address] [place] [id number]. Wyatt Aldrich RBC 4.70 106/ul Normal 4.70-6.10 [facility] Comment on above: Performed By: #### C BC ####[facility] [address]fix[address] [place] [address]Dr. Wyatt Aldrich WBC 8.3 103/ul Normal 4.0-11.0 [facility] Comment on above: Performed By: #### C BC ####[facility] [address]psks[address] [place] [id number]. Wyatt Aldrich FREE T3on 01-28-2022 FREE T3 2.70 pg/mlL Normal 2.18-3.98 [facility] Comment on above: Performed By: #### L IPID, CMP, TSH, FT3 ####[facility] [address] [place] [address]Dr. Wyatt Aldrich GLYCOHEMOGLOBIN A1Con 2021 ADA RECOMMENDATION SEE BELOW Normal [facility] Comment on above: Result Comment: ADA RECOMMENDED LIMIT 4.0 - 6.0 ADA THERAPEUTIC TARGET < 7.0 ACTION SUGGESTED > 7.0 Performed By: #### A 1C #### [facility] [address] [address] [address] Wyatt Aldrich Glucose [Mass/Vol] 143 mg/dL Normal [facility] Comment on above: Performed By: #### A 1C #### [facility] [address] [address] [address] Wyatt Aldrich HbA1c (Bld) [Mass fraction] 6.6 % Critically high 4.5-6.2 [facility] Comment on above: Performed By: #### A 1C #### [facility] [address] [address] [address] Wyatt Aldrich LIPID PROFILEon 01-28-2022 CHOL-HDL RATIO NORM SEE BELOW Normal [facility] Comment on above: Result Comment: 3.3 - 4.4 LOW RISK 4.4 - 7.1 AVERAGE RISK 7.1 - 11.0 MODERATE RISK >11.0 HIGH RISK Performed By: #### L IPID, CMP, TSH, FT3 ####[facility] [address] [place] [address]Dr. Wyatt Aldrich Cholesterol [Mass/Vol] 176 mg/dL Normal <=200 [facility] Comment on above: Performed By: #### L IPID, CMP, TSH, FT3 ####[facility] [address] [place] [address]Dr. Wyatt Aldrich Cholesterol in HDL [Mass/Vol] 35 mg/dL Critically low 40-60 [facility] Comment on above: Performed By: #### L IPID, CMP, TSH, FT3 ####[facility] [address] [place] [address]Dr. Wyatt Aldrich Cholesterol in LDL [Mass/Vol] 94.4 mg/dL Normal [facility] Comment on above: Performed By: #### L IPID, CMP, TSH, FT3 ####[facility] [address]fun[address] [place] [address]Dr. Wyatt Aldrich Cholesterol.total/Ch olesterol in HDL [Mass ratio] 5.0 {ratio} Normal [facility] Comment on above: Performed By: #### L IPID, CMP, TSH, FT3 ####[facility] [address] [place] [address]Dr. Wyatt Aldrich HDL NORMAL > or = 60 mg/dl - LO W CARDIOVASCULAR RISK <40 mg/dl - HIGH CARDIOVASCULAR RISK Normal [facility] Comment on above: Performed By: #### L IPID, CMP, TSH, FT3 ####[facility] [address] [place] [address]Dr. Wyatt Aldrich LDL CALC NORMAL SEE BELOW Normal [facility] Comment on above: Result Comment: <100 mg/dl OPTIMAL 100 - 129 mg/dl NEAR OR ABOVE OPTIMAL 130 - 159 mg/dl BORDERLINE HIGH 160 - 189 mg/dl HIGH >190 mg/dl VERY HIGH Performed By: #### L IPID, CMP, TSH, FT3 ####[facility] [address] [place] [address]Dr. Wyatt Aldrich Triglyceride [Mass/Vol] 233 mg/dL Critically high <=150 [facility] Comment on above: Performed By: #### L IPID, CMP, TSH, FT3 ####[facility] [address] [place] [address]Dr. Wyatt Aldrich VLDL CALC 46.6 mg/dL Normal [facility] Comment on above: Performed By: #### L IPID, CMP, TSH, FT3 ####[facility] [address] [place] [address]Dr. Wyatt Aldrich OCC BLD IMMUNO SCREENon 01-03 OCCULT BLOOD Negative Normal NEGATIVE [facility] Comment on above: Performed By: #### O BSCRN #### [facility] [address] [address] [address] Wyatt Aldrich PROF 14(COMP METB)on 022 Albumin [Mass/Vol] 3.4 g/dL Normal 3.4-5.0 [facility] Comment on above: Performed By: #### L IPID, CMP, TSH, FT3 ####[facility] [address] [place] [address]Dr. Wyatt Aldrich Albumin/Globulin [Mass ratio] 1.0 {ratio} Normal [facility] Comment on above: Performed By: #### L IPID, CMP, TSH, FT3 ####[facility] [address] [place] [address]Dr. Wyatt Aldrich ALP [Catalytic activity/Vol] 65 U/L Normal 46-116 [facility] Comment on above: Performed By: #### L IPID, CMP, TSH, FT3 ####[facility] [address] [place] [address]Dr. Wyatt Aldrich ALT [Catalytic activity/Vol] 45 U/L Normal 16-63 [facility] Comment on above: Performed By: #### L IPID, CMP, TSH, FT3 ####[facility] [address] [place] [address]Dr. Wyatt Aldrich Anion gap [Moles/Vol] 9.7 mmol/L Normal [facility] Comment on above: Performed By: #### L IPID, CMP, TSH, FT3 ####[facility] [address] [place] [address]Dr. Wyatt Aldrich AST [Catalytic activity/Vol] 20 U/L Normal 15-37 [facility] Comment on above: Performed By: #### L IPID, CMP, TSH, FT3 ####[facility] [address]fu[address] [place] [address]Dr. Wyatt Aldrich Bilirubin [Mass/Vol] 0.4 mg/dL Normal 0.2-1.0 [facility] Comment on above: Performed By: #### L IPID, CMP, TSH, FT3 ####[facility] [address]fer[address]us[address] [place] [address]Dr. Wyatt Aldrich Calcium [Mass/Vol] 8.5 mg/dL Normal 8.5-10.1 [facility] Comment on above: Performed By: #### L IPID, CMP, TSH, FT3 ####[facility] [address] [place], [place] [address]Dr. Wyatt Aldrich Chloride [Moles/Vol] 101 mmol/L Normal 98-107 [facility] Comment on above: Performed By: #### L IPID, CMP, TSH, FT3 ####[facility] F[address] [place], [place] [address]Dr. Wyatt Aldrich CO2 [Moles/Vol] 33.3 mmol/L Critically high 21.0-32.0 [facility] Comment on above: Performed By: #### L IPID, CMP, TSH, FT3 ####[facility] [address] [place] [address]Dr. Wyatt Aldrich Creatinine [Mass/Vol] 0.77 mg/dL Normal 0.70-1.30 [facility] Comment on above: Performed By: #### L IPID, CMP, TSH, FT3 ####[facility] [address] [place] [address]Dr. Wyatt Aldrich EGFR-AF IRISH >60 Normal >=60 [facility] Comment on above: Performed By: #### L IPID, CMP, TSH, FT3 ####[facility] [address] [place] [address]Dr. Wyatt Aldrich EGFR-NON AF IRISH >60 Normal >=60 [facility] Comment on above: Performed By: #### L IPID, CMP, TSH, FT3 ####[facility] [address]qwt[address] [place] [address]Dr. Wyatt Aldrich Globulin (S) [Mass/Vol] 3.3 g/dL Normal [facility] Comment on above: Performed By: #### L IPID, CMP, TSH, FT3 ####[facility] [address]rt[address] [place] [address]Dr. Wyatt Aldrich Glucose [Mass/Vol] 137 mg/dL Critically high 74-106 [facility] Comment on above: Performed By: #### L IPID, CMP, TSH, FT3 ####[facility] Xvm[address]ecors[address] [place], [place] [address]Dr. Wyatt Aldrich Potassium [Moles/Vol] 4.0 mmol/L Normal 3.5-5.1 [facility] Comment on above: Performed By: #### L IPID, CMP, TSH, FT3 ####[facility] [address] [place], [place] [address]Dr. Wyatt Aldrich Protein [Mass/Vol] 6.7 g/dL Normal 6.4-8.2 [facility] Comment on above: Performed By: #### L IPID, CMP, TSH, FT3 ####[facility] [address] [place], [place] [address]Dr. Wyatt Aldrich Sodium [Moles/Vol] 140 mmol/L Normal 136-145 [facility] Comment on above: Performed By: #### L IPID, CMP, TSH, FT3 ####[facility] Rxarbmdeja[address] [place], [place] [address]Dr. Wyatt Aldrich Urea nitrogen [Mass/Vol] 13.0 mg/dL Normal 7.0-18.0 [facility] Comment on above: Performed By: #### L IPID, CMP, TSH, FT3 ####[facility] Qtr[address] [place], [place] [address]Dr. Wyatt Aldrich Urea nitrogen/Creatinine [Mass ratio] 16.9 mg/mg Normal [facility] Comment on above: Performed By: #### L IPID, CMP, TSH, FT3 ####[facility] [address] [place], [place] [address]Tf. Wyatt Aldrich TSHon 01-28-2022 TSH 5.562 uIU/mL Critically high 0.358-3.740 [facility] Comment on above: Performed By: #### L IPID, CMP, TSH, FT3 ####[facility] [address]34[address] [place], [place] [address]Yl. Wyatt Aldrich TSH RANGE SEE BELOW Normal [facility] Comment on above: Result Comment: <0.3 4 UIU/ml HYPERTHYROID 0.34-5.60 UIU/ml EUTHYROID >5.60 UIU/ml HYPOTHYROID Performed By: #### L IPID, CMP, TSH, FT3 ####[facility] [address]je[address] [place], [place] [address]Zi. Wyatt Aldrich XR KUB 1 VIEWon 01-20-2022 [...] MANSOOR LIMA Date: 2022-01-20 14:12 Normal [facility] MRI LSPINE WO W CONon 2021 [...] by: TANISHA CHIU Date: 2021-10-04 11:23 Normal [facility] XR LSPINE MIN 4 VIEWSon 09-05 [...] by: SOLO SAVAGE Date: 2021-09-27 11:31 Normal [facility] Vital Signs Date Time Vital Sign Value Performing Clinician Jessi chowdhury 04-23-2025 10:28-0400 Body weight 161.2 kg Asim Fernandez MD Work Phone: [facility] 03-19-2025 09:07-0400 Body height 187.96 cm Asim Fernandez MD Work Phone: [facility] 03-19-2025 09:07-0400 Body mass index (BMI) [Ratio] 46.2 kg/m2 Asim Fernandez MD Work Phone: [facility] 03-19-2025 09:07-0400 Body weight 163.2 kg Asim Fernandez MD Work Phone: [facility] 03-04-2025 08:41-0400 Body height 187.96 cm Asim Fernandez MD Work Phone: [facility] 03-04-2025 08:41-0400 Body mass index (BMI) [Ratio] 45.6 kg/m2 Asim Fernandez MD Work Phone: [facility] 03-04-2025 08:41-0400 Body weight 161.3 kg Asim Fernandez MD Work Phone: [facility] 01-30-2025 10:28-0400 Body weight 164.9 kg Asim Fernandez MD Work Phone: [facility] 12-26-2024 08:29-0400 Body weight 164 kg [facility] 10-29-2024 08:25-0500 Blood Pressure Location Michele RAYGOZA [facility] [place] 10-29-2024 08:25-0500 Diastolic blood pressure 72 mm[Hg] Michele RAYGOZA [facility] [place] 10-29-2024 08:25-0500 Heart rate 64 /min Michele RAYGOZA [facility] 10-29-2024 08:25-0500 Respiratory rate 16 /min Michele RAYGOZA [facility] [place] 10-29-2024 08:25-0500 Systolic blood pressure 129 mm[Hg] Michele NILL [facility] [place] 09-10-2024 09:50-0500 Diastolic blood pressure 78 mm[Hg] Zena Orzech [facility] 09-10-2024 09:50-0500 Mean blood pressure 99 mm[Hg] Zena Orzech [facility] 09-10-2024 09:50-0500 Systolic blood pressure 140 mm[Hg] Zena Orzech [facility] 09-10-2024 09:27-0500 Blood Pressure Location Zena Orzech [facility] 09-10-2024 09:27-0500 Body temperature 98.6 [degF] Zena Orzech [facility] 09-10-2024 09:27-0500 Diastolic blood pressure 96 mm[Hg] Zena Orzech [facility] 09-10-2024 09:27-0500 Heart rate 69 /min Zena Orzech [facility] 09-10-2024 09:27-0500 Systolic blood pressure 190 mm[Hg] Zena Orzech [facility] 06-11-2024 08:19-0400 Blood Pressure Location Porsche AKHTAR [facility] 06-11-2024 08:19-0400 Diastolic blood pressure 111 mm[Hg] Porsche AKHTAR [facility] 06-11-2024 08:19-0400 Heart rate 71 /min Porsche COOK [facility] 06-11-2024 08:19-0400 Systolic blood pressure 190 mm[Hg] Porsche COOK [facility] 06-06-2023 08:48-0400 Blood Pressure Location Porsche COOK [facility] 06-06-2023 08:48-0400 Diastolic blood pressure 66 mm[Hg] Porsche COOK [facility] 06-06-2023 08:48-0400 Heart rate 83 /min Porsche COOK [facility] 06-06-2023 08:48-0400 Systolic blood pressure 142 mm[Hg] Porsche COOK [facility] 06-17-2022 09:14-0400 Blood Pressure Location Porsche COOK [facility] 06-17-2022 09:14-0400 Diastolic blood pressure 96 mm[Hg] Porsche COOK [facility] 06-17-2022 09:14-0400 Heart rate 67 /min Porcshe COOK [facility] 06-17-2022 09:14-0400 Systolic blood pressure 159 mm[Hg] Porsche COOK [facility] 06-10-2022 09:54-0400 Blood Pressure Location Porsche COOK [facility] 06-10-2022 09:54-0400 Diastolic blood pressure 102 mm[Hg] Porsche AKHTAR [facility] 06-10-2022 09:54-0400 Heart rate 68 /min Porsche AKHTAR [facility] 06-10-2022 09:54-0400 Systolic blood pressure 166 mm[Hg] Porsche AKHTAR [facility] 01-21-2022 08:44-0400 Blood Pressure Location Porsche AKHTAR [facility] 01-21-2022 08:44-0400 Diastolic blood pressure 87 mm[Hg] Porsche AKHTAR [facility] 01-21-2022 08:44-0400 Heart rate 72 /min Porsche AKHTAR [facility] 01-21-2022 08:44-0400 Systolic blood pressure 140 mm[Hg] Porsche AKHTAR [facility] Encounters Encounter Date Encounter Type Care Provider Facility Start: 04-23-2025 End: 04-23-2025 ambulatory Asim Fernandez MD Work Phone: [facility] Work Phone: Start: 04-23-2025 End: 04-23-2025 Patient encounter procedure Tanisha Ocampo [facility] Work Phone: Start: 04-09-2025 End: 04-09-2025 Patient encounter procedure Tanisha Ocampo DO -[facility] Work Phone: Start: 04-09-2025 End: 04-09-2025 ambulatory Asim Fernandez MD Work Phone: [facility] Work Phone: Start: 04-09-2025 Non-patient / Non-visit Eyad Amaral MD -[facility] Work Phone: Start: 03-19-2025 End: 03-19-2025 ambulatory Asim Fernandez MD Work Phone: [facility] Work Phone: Start: 03-19-2025 End: 03-19-2025 Patient encounter procedure Tanisha Ocampo DO -[facility] Work Phone: Start: 03-18-2025 End: 03-18-2025 Patient encounter procedure Colleen Miles LOPEZN -CT Scan [facility] [place] Work Phone: Start: 03-18-2025 End: 03-18-2025 ambulatory Asim Fernandez MD Work Phone: [facility] Work Phone: Start: 03-04-2025 End: 03-04-2025 ambulatory Asim Fernandez MD Work Phone: [facility] Work Phone: Start: 03-04-2025 End: 03-04-2025 Patient encounter procedure Colleen Aquino APRN -[facility] Work Phone: Start: 02-28-2025 End: 02-28-2025 Patient encounter procedure Colleen Aquino REGISTERED NURSE MATERNITY -MRI [facility] [place] Work Phone: Start: 02-28-2025 End: 02-28-2025 ambulatory Asim Fernandez MD Work Phone: [facility] Work Phone: Start: 01-30-2025 End: 01-30-2025 ambulatory Asim Fernandez MD Work Phone: [facility] Work Phone: Start: 01-30-2025 End: 01-30-2025 Patient encounter procedure Asim Fernandez MD Work Phone: [facility] Work Phone: Start: 01-21-2025 End: 01-21-2025 Bamboo flowsheet Loi Benitez [facility] Start: 01-21-2025 End: 01-21-2025 Bamboo flowsheet Loi Benitez [facility] Start: 01-21-2025 End: 01-21-2025 ambulatory Loi Benitez [facility] Comment on above: Lumbar paraspinal mu scle spasm (Primary Dx); Cervical radiculopathy Start: 01-17-2025 End: 01-17-2025 Bamboo flowsheet Loi Gabriel [facility] Start: 01-17-2025 End: 01-17-2025 Bamboo flowsheet Loi Gabriel [facility] Start: 01-17-2025 End: 01-17-2025 ambulatory Loi Benitez [facility] Comment on above: Lumbar paraspinal mu scle spasm (Primary Dx); Cervical radiculopathy Start: 01-15-2025 End: 01-15-2025 Bamboo flowsheet Loi Benitez [facility] Start: 01-15-2025 End: 01-15-2025 Bamboo flowsheet Loi Benitez [facility] Start: 01-15-2025 End: 01-15-2025 ambulatory Loi Benitez [facility] Comment on above: Lumbar paraspinal mu scle spasm (Primary Dx); Cervical radiculopathy Start: 01-09-2025 End: 01-09-2025 Bamboo flowsheet Loi Gabriel [facility] Start: 01-09-2025 End: 01-09-2025 Bamboo flowsheet Loi Gabriel [facility] Start: 01-09-2025 End: 01-09-2025 ambulatory Loi Gabriel [facility] Comment on above: Lumbar [...] 12-26-2024 ambulatory Asim Fernandez MD Work Phone: [facility] Work Phone: Start: 12-26-2024 End: 12-26-2024 [facility]: Start: 12-09-2024 End: 12-09-2024 ambulatory Heather Turcios MD Facility:[facility] Start: 10-29-2024 End: 10-29-2024 ambulatory Michele RAYGOZA Facility:[facility] Start: 10-29-2024 End: 10-29-2024 Patient encounter procedure Michele RAYGOZA [facility] [place] Start: 10-18-2024 ambulatory Porsche AKHTAR Facility: [facility] Start: 09-10-2024 End: 09-10-2024 ambulatory Zena X Sole Facility:[facility] [place] Start: 09-10-2024 End: 09-10-2024 Patient encounter procedure Zena X Orzech [facility] [place] Start: 06-11-2024 End: 06-11-2024 ambulatory Porsche AKHTAR Facility: [facility] Start: 06-11-2024 End: 06-11-2024 Patient encounter procedure Porsche AKHTAR [facility] [place] Start: 06-10-2024 End: 06-10-2024 ambulatory Heather Turcios MD Facility:[facility] [place] Start: 02-19-2024 End: 02-19-2024 ambulatory Hetaher Turcios MD Facility:[facility] [place] Start: 02-05-2024 End: 02-05-2024 ambulatory Heather Turcios MD Facility:[facility] [place] Start: 06-06-2023 End: 06-06-2023 Patient encounter procedure Porsche AKHTAR [facility] [place] Start: 06-17-2022 End: 06-17-2022 Patient encounter procedure Porsche AKHTAR [facility] [place] Start: 06-16-2022 End: 06-17-[address] ASIM FERNANDEZ Facility: Start: 06-10-2022 End: 06-10-2022 Patient encounter procedure Porsche AKHTAR [facility] [place] Start: 06-09-2022 End: 06-10-[address] ASIM FERNANDEZ Facility:[facility] Start: 05-29-2022 End: 05-29-[address] ASIM FERNANDEZ Facility:[facility] Start: 05-11-2022 End: 05-11-2022 Patient encounter procedure Porsche AKHTAR [facility] Start: 02-03-2022 Encounter for genera l adult medical examination without abnormal findings DR ASIM FERNANDEZ [facility] Start: 01-28-2022 End: 01-29-[address] ASIM FERNANDEZ Facility:H1 Start: 01-28-2022 End: 01-29-2022 Encounter for general adult medical examination without abnormal findings DR ASIM FERNANDEZ Facility:H1 Start: 01-21-2022 End: 01-21-2022 Patient encounter procedure Porsche AKHTAR [facility] Start: 01-20-2022 End: 01-21-[address] ASIM [...] on above: Performed By: #### P SAD ####[facility] [id number] [place], [place] [address]BpCullen Aldrich Start: 08-13-2020 Extracorporeal shock wave lithotripsy [...] Ended) [facility] Start: 04-23-2025 Patient referral [facility] Work Phone: Start: 01-28-2025 End: 01-28-2025 ambulatory [facility] Start: 01-23-2025 End: 01-23-2025 ambulatory [facility] Start: 01-21-2025 End: 01-21-2025 ambulatory [facility] Start: 01-17-2025 End: 01-17-2025 ambulatory 01/17/2025 10:30 AM EDT Treatment [facility] [address] [place] [address] Loi Benitez PTA [facility] Start: 01-15-2025 End: 01-15-2025 ambulatory [facility] Comment on above: Arrived Start: 01-09-2025 End: 01-09-2025 ambulatory [facility] Comment on above: Arrived Start: 01-01-2025 End: 01-01-2025 ambulatory 01/01/2025 10:00 AM EDT Evaluation [facility] [address] [facility] [address] [place] [address] Michael Ram, PT [address] [facility] [address] [place] [address] Arrived [facility] Comment on above: Arrived Start: 12-26-2024 Patient referral [facility] Work Phone: Start: 1965 Screening for malign ant neoplasm of colon [facility] Electromyography [facility] Patient referral [facility] Work Phone: XR Lumbar spine Views [facility] Immunizations Immunization Date Immunization Notes Care Provider Mica biggs 04-19-2022 zoster vaccine recombinant Porsche AKHTAR [facility] 02-12-2022 pneumococcal 20-maría nt conjugate vaccine Porsche AKHTAR [facility] 02-03-2022 zoster vaccine recombinant Porsche AKHTAR [facility] 12-08-2020 SARS-CoV-2 (COVID-19 ) mRNA-1273 vaccine Porsche AKHTAR [facility] 11-17-2020 SARS-CoV-2 (COVID-19 ) mRNA BNT-162b2 vax Porsche AKHTAR [facility] 11-11-2020 SARS-CoV-2 (COVID-19 ) mRNA-1907 vaccine Porsche AKHTAR [facility] Payers Date Payer Category Payer Self-pay 2023 [facility] [id number] 2023 Private Health Insurance [id number] 315 2023 Unknown 2023 Unknown [id number] 1965 Unknown [id number] 2.840.1.144701.3.57 9.2.593 1964 Unknown [id number] 2.16840.1.369692.3.57 9.2.593 1964 Unknown [id number] 2.16.840.1.912703.3.57 9.2.593 1964 Unknown [id number] 2.16.840.1.841603.3.57 9.2.593 1964 Unknown [id number] 2.16.840.1.930428.3.57 9.2.593 1964 Unknown [id number] 2.16.840.1.663394.3.57 9.2.593 1964 Unknown [id number] 2.16.840.1.627220.3.57 9.2.593 1964 Unknown [id number] 2.16.840.1.470317.3.57 9.2.593 1964 Unknown [id number] 2.16.840.1.121355.3.57 9.2.727 1964 Unknown [id number] 2.16840.1.963375.3.57 9.2.727 1964 Unknown [id number] 2.16.840.1.967516.3.57 9.2.727 1964 Unknown [id number] 2.16840.1.151536.3.57 9.2.727 1964 Unknown [id number] 2.16840.1.065524.3.57 9.2.196 1964 Unknown [id number] 2.840.1.794021.3.57 9.2.196 1964 Unknown [id number] 2.16840.1.220624.3.57 9.2.196 1964 Unknown [id number] 2.16840.1.279712.3.57 9.2.196 1964 Unknown [id number] 2.16840.1.487062.3.57 9.2.1259 1964 Unknown [id number] 2.840.1.123204.3.57 9.2.1259 1964 Unknown [id number] 2.16840.1.591760.3.57 9.2.1259 1964 Unknown [id number] 2.16840.1.868049.3.57 9.2.1259 1964 Unknown [id number] 2.16.840.1.551473.3.57 9.2.1259 1964 Unknown [id number] 2.16840.1.996020.3.57 9.2.1259 1959 Private Health Insurance [id number] Unknown [place] [id number] Unknown [id number] 2.16.840.1.964149.3.57 9.2.531 Unknown [id number] 2.16.840.1.887124.3.57 9.2.531 Unknown [id number] 2.16.840.1.652771.3.57 9.2.531 Unknown [id number] 2.16.840.1.083125.3.57 9.2.531 Social History Date Type Detail Facility Start: 01-15-2021 End: 12-26-2024 Tobacco smoking status Ex-smoker (finding) [facility] Tobacco smoking status Never [facility] [place] [employer] Sex Assigned At Male [facility] [employer] Start: 12-26-2024 End: 01-30-2025 Sex Male (finding) [facility] Start: 1965 Sex Assigned At Male F [facility] Tobacco smoking status NHIS Tobacco smoking consumption unknown [facility] Start: 1965 Sex assigned at Not on file [facility] Functional Status Date Assessment Result Facility 10-29-2024 Functional Status N/A [facility] [place] 09-10-2024 Functional Status N/A [facility] 06-11-2024 Functional Status N/A [facility] 06-06-2023 Functional Status N/A [facility] 06-17-2022 Functional Status N/A [facility] 06-10-2022 Functional Status N/A [facility] Clinical Notes 01-21-2022 to 03-18-2025 Note Date & Type Note Facility 03-18-2025 Radiology Diagnostic study note [facility] Main [place] [address] [place] [address] CT Scan Report Signed Patient: Liz Hernandez MR#: [id number] : 1965 Acct:[id number] Age/Sex: 59 / M ADM Date: 5 Loc: CT Room: [facility] Attending Dr: Colleen Aquino APRN Copies to: [...] with vacuum disc phenomenon L5-S1 and L2-L3. Zozk-lt-plqtcurk intervertebral space narrowing with mediastinal L3-L5. Multilevel moderate severe facet arthropathy greatest L4-S1. No fracture malalignment multilevel central canal and foraminal encroachment is better evaluated on recent MRI. CT/CT lumbar spine wo con IMPRESSION: Moderate severe multilevel degenerative changes. Negative acute fracture or malalignment Impression dictated by: Christopher Mendes M.D. 03/18/2025 9:20 AM Dictation Location: [place] [address] Transcribed By: [facility] 03/18/25919 Dictated By: Christopher Mendes MD 03/18/2516 Signed By: 03/18/25919 [facility] Work Phone: 01-30-2025 Evaluation note Diagnosis Onset [...] 8:35am Severe back pain acute March 9:02am [facility] Work Phone: 1(815) 147-427805-29-2025 Evaluation note* Diagnosis Onset Date Resolution Status [...] lumbar radiculopathy acute April 23, 2025 10:24am [facility] Work Phone: 1(839) 356-482905-06-2025 History of Present illness Narrative* Michael Ram, PT - 01/07/2025 10:00 AM EDT Images from the original note were not included. Physical Therapy Treatment Visit Patient Name: Liz Hernandez Today's Date: 01/07/2025 Encounter Diagnoses Name [...] due to back and Left LE. 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 Penitentiary Goals: To be met in 10 weeks [...] Please sign below. Date: [id number] History of Present illness Narrative* Michael Ram, PT - 01/01/2025 10:00 AM EDT Images [...] due to back and Left LE. 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 Penitentiary Goals: To be met in 10 weeks [...] Please sign below. Date: documented in this [facility]04-24-2025 Evaluation note* Diagnosis Onset Date Resolution Status Admit Date Left lumbar radiculopathy acute December 26, 2024 8:28am Numbness and tingling of foot acute December 26, 2024 8:28am [facility] Work Phone: 1(186) 511-182904-24-2025 Evaluation note* Diagnosis Onset Date Resolution Status Admit Date Left lumbar radiculopathy acute December 26, 2024 8:28am Numbness and tingling of foot acute December 26, 2024 8:28am Left lumbar radiculopathy acute January 30, 2025 10:28am Neurogenic claudication acute M ay 2024 10:28am Numbness and tingling of foot acute January 30, 2025 10:28am [facility] Work Phone: 1(306) 975-900904-24-2025 Evaluation note* Diagnosis Onset Date Resolution Status [...] of foot acute March 04, 2025 8:35am [facility] Work Phone: 1(132) 252-789302-25-2025 NoteGeneral Surgery Office/Clinic Note Chief Complaint consultation [...] tab(s), Oral, Alexus (more content not included)... [facility]:Result Comment: Electronically Signed By: JARET CANTOR, Michele Campbell\Date and Time Signed: 10/29/24 08:56 EST 09-10-2024 Hospital Discharge instructions Patient Education 09/10/2024 09:53:34 Kidney Stones, Tabo-dd-Xpnf Kidney Stones Kidney stones are rock-like masses [...] Follow these instructions at home: Medicines Take tllp-ogl-snstyiw and prescription medicines only as told by [...] provider. Document Revised: 04/14/2023 Document Reviewed: 04/14/2023 [employer] Patient Education 2023 [employer]. Follow Up Care 08/15/2024 10:52:33 With:GIOVANA CANTOR, Porsche Kwan, URL Address: [facility] [address] [place] [id number]- When: Unknown [facility] [id number] NotePatient Education Urology Kidney Stones Kidney stones [...] these instructions at home: Medicines ??? Take qnkj-djl-vxzmzms and prescription medicines only as told by [...] provider. Document Revised: 04/14/2023 Document Reviewed: 04/14/2023 [employer] Patient Education ? 2023 [employer].[facility] 06-11-2024 Hospital Discharge instructions Patient Education [...] you may eat and drink normally. Take crdk-znz-thfownn and prescription medicines only as told by your health care provider. Let your health care provider know about any medicines that you are taking, including wnyi-xfy-jnmxibp medicines, vitamins, herbs, and supplements. Choose a [...] provider. Document Revised: 02/25/2022 Document Reviewed: 02/25/2022 [employer] Patient Education 2023 [employer]. 06/11/2024 08:23:10 Dietary Guidelines to Help Prevent [...] include: ?8 oz (237 mL) of milk, ixsyxjb-ncguwieaptfj-qjqiw milk, and calcium- fortifiedfruit juice. Calcium-fortified means [...] ?Spinach (cooked), rhubarb, beets, sweet potatoes, and Latvian chard. ?Peanuts. ?Potato chips, slovenian fries, and baked potatoes with skin on. ?Nuts and nut products. ?Chocolate. If you regularly take a diuretic medicine, make sure to eat at least 1 or 2 servings of fruits or vegetables that are high in potassium each day. These include: ?Avocado. ?Banana. ?Berks, prune, carrot, or tomato juice. ?Baked potato. [...] magnesium, fish oil, or vitamin B6. Take dkpz-xwx-hcuxgny and prescription medicines only as told by [...] Casseroles. Pizza. Lasagna. Frozen meals. Potato chips. Malaysian fries. The items listed above may not [...] provider. Document Revised: 12/01/2022 Document Reviewed: 12/01/2022 [employer] Patient Education 2023 [employer]. Follow Up Care 06/06/2023 09:30:15 With:GIOVANA CANTOR, Porsche Kwan, URL Address: [facility] [employer] [place] [id number]- When: Unknown [facility] [id number] NotePatient Education Nephrology Dietary Guidelines to Help [...] ? 8 oz (237 mL) of milk, evirmbe-omkfgtruasjy-agrrt milk, and calcium- fortifiedfruit juice. Calcium-fortified means [...] Spinach (cooked), rhubarb, beets, sweet potatoes, and Latvian chard. ? Peanuts. ? Potato chips, slovenian fries, and baked potatoes with skin on. ? Nuts and nut products. ? Chocolate. ? If you regularly take a diuretic medicine, make sure to eat at least 1 or 2 servings of fruits orvegetables that are high in potassium each day. These include: ? Avocado. ? Banana. ? Berks, prune, carrot, or tomato juice. ? Baked [...] fish oil, or vitamin B6. ? Take ooni-bqi-bapixtf and prescription medicines only as told by your health care provider. Theseinclude suppleme (more content not included)...[facility]10-[facility] Hospital Discharge instructions Patient Education 06/06/2023 [...] include: ?8 oz (237 mL) of milk, vznyojm-zraqhzzqdfxp-lrdhv milk, and calcium- fortifiedfruit juice. Calcium-fortified means [...] ?Spinach (cooked), rhubarb, beets, sweet potatoes, and Latvian chard. ?Peanuts. ?Potato chips, slovenian fries, and baked potatoes with skin on. ?Nuts and nut products. ?Chocolate. If you regularly take a diuretic medicine, make sure to eat at least 1 or 2 servings of fruits or vegetables that are high in potassium each day. These include: ?Avocado. ?Banana. ?Berks, prune, carrot, or tomato juice. ?Baked potato. [...] magnesium, fish oil, or vitamin B6. Take ungh-vfd-dlteqxw and prescription medicines only as told by [...] Casseroles. Pizza. Lasagna. Frozen meals. Potato chips. Malaysian fries. The items listed above may not [...] provider. Document Revised: 05/02/2022 Document Reviewed: 05/02/2022 [employer] Patient Education 2022 [employer]. Follow Up Care 01/21/2022 09:03:45 With:GIOVANA CANTOR, Porsche Kwan, URL Address: [facility] [address] [place], [place] [id number]- When:Within 1 Year(s) Comments:Oksana [facility] [id number] Hospital Discharge instructions Patient Education 06/17/2022 09:35:20 [...] include: ?Spinach. ?Rhubarb. ?Beets. ?Potato chips and slovenian fries. ?Nuts. If you regularly take a diuretic medicine, make sure to eat at least 1 2 fruits or vegetables high in potassium each day. These include: ?Avocado. ?Banana. ?Berks, prune, carrot, or tomato juice. ?Baked potato. [...] Casseroles. Pizza. Lasagna. Frozen meals. Potato chips. Malaysian fries. Summary You can reduce your risk [...] 12/16/2011 Document Revised: 12/11/2019 Document Reviewed: 08/01/2017 [employer] Patient Education 2020 [employer] Follow Up Care 06/10/2022 10:24:22 With:GIOVANA CANTOR, Porsche Kwan, URL Address: [address] [address]- When:6 months Comments:w/ [place] [facility] 10-07-2022 Hospital Discharge instructions Patient Education 06/10/2022 [...] include: ?Spinach. ?Rhubarb. ?Beets. ?Potato chips and slovenian fries. ?Nuts. If you regularly take a diuretic medicine, make sure to eat at least 1 2 fruits or vegetables high in potassium each day. These include: ?Avocado. ?Banana. ?Berks, prune, carrot, or tomato juice. ?Baked potato. [...] Casseroles. Pizza. Lasagna. Frozen meals. Potato chips. Malaysian fries. Summary You can reduce your risk [...] 12/16/2011 Document Revised: 12/11/2019 Document Reviewed: 08/01/2017 [employer] Patient Education 2019 [employer]. Follow Up Care 05/30/2022 09:25:01 With:GIOVANA CANTOR, Porsche Kwan, URL Address: [address] [place] [address]- When:2 weeks Comments:KUB [facility] [id number] Hospital Discharge instructions Patient Education 01/21/2022 08:33:55 [...] urethra. Follow these instructions at home: Take ompw-eom-xvfnvqt and prescription medicines only as told by [...] 08/21/2006 Document Revised: 07/16/2019 Document Reviewed: 09/25/2017 [employer] Patient Education [employer]. Follow Up Care 01/15/2021 08:45:48 With:Porsche AKHTAR MD, URL Address: [facility] [place] [address]- When:01/21/2023 Comments:with PSA and x-ray [facility] Evaluation + Plan note Future Appointments Appointment Date:02/24/2023 08:00:00 AM Scheduled Provider:Porsche AKHTAR MD Location:[facility] Appointment Type:URO Office Visit [facility] Evaluation + Plan note Future Appointments Appointment Date:02/24/2023 08:00:00 AM Scheduled Provider:Porsche AKHTAR MD Location:[facility] Appointment Type:URO Office Visit Future Scheduled Tests Laboratory* PT & PTT 04/20/22 * BUN 04/20/22 * Creatinine 04/20/22 * Electrolyte Panel 04/20/22 * CBC w/ Auto Diff [facility]20[facility] Future Appointments Appointment Date:06/17/2022 09:15:00 AM Scheduled Provider:Porsche AKHTAR MD Location:[facility] [place] Appointment Type:URO Office Visit Appointment Date:02/24/2023 08:00:00 AM Scheduled Provider:Porsche AKHTAR MD Location:[facility] [place] Appointment Type:URO Office Visit [facility] evaluation + Plan note Future Appointments Appointment Date:06/11/2024 08:00:00 AM Scheduled Provider:Porsche AKHTAR MD Location:[facility] [place] Appointment Type:URO Office Visit [facility] evaluation + Plan note Future Appointments Appointment Date:06/10/2025 08:00:00 AM Scheduled Provider:Porsche AKHTAR MD [facility] Type[facility]O Office Visit [facility] evaluation noteNo assessment information available [facility] Work Phone: evaluation note* Diagnosis Lumbar [...] available for this section [facility] Discharge instructions No data available for this section [facility] instructionsAmbulatory Orders* Referral to PT / OT / Speech (PT/OT/SP) Location: None [facility] Work Phone: Hospital Discharge instructionsAmbulatory Orders* Referral to Weight Management Location: None [facility] Work Phone: Progress note No data available for this section [facility] (narrative)No reason for referral information availableAdena [facility] Work Phone: Reason for visit Narrative* Rehabilitation - Outpatient (Routine) - Pending Review Specialty Diagnoses / Procedures Referred By Cindy cyr Referred To Contact Physical Therapy Diagnoses Low back pain, unspecified Procedures MD PHYSICAL THERAPY EVALUATION LOW COMPLEX 20 MINS MD OFFICE/OUTPATIENT NEW HIGH MDM 60 MINUTES Colleen Aquino MD [address] [address] Phone: tel: fax: Michael Ram, PT [address] [address] Phone: tel: fax: Referral ID Status Reason Start Date Expiration Date V isits Requested Visits Authorized [id number] Pending Review 01/01/2025 06/30/2025 2 2 [facility] HealthcareReason for visit Narrative* Rehabilitation - Outpatient (Routine) - Authorized Specialty Diagnoses / Procedures Referred By Cindy cyr Referred To Contact Physical Therapy Diagnoses Low back pain, unspecified Procedures MD PHYSICAL THERAPY EVALUATION LOW COMPLEX 20 MINS MD OFFICE/OUTPATIENT NEW HIGH MDM 60 MINUTES Colleen Aquino MD [address] [place] [address] Phone: tel: fax: Michael Ram, PT [address] [address] Phone: tel: fax: Referral ID Status Reason Start Date Expiration Date V isits Requested Visits Authorized [id number] Authorized 01/01/2025 03/03/2025 8 8 [facility] Narrative* Rehabilitation - Outpatient (Routine) - Closed Specialty Diagnoses / Procedures Referred By Cindy cyr Referred To Contact Physical Therapy Diagnoses Low back pain, unspecified Procedures MD PHYSICAL THERAPY EVALUATION LOW COMPLEX 20 MINS MD OFFICE/OUTPATIENT NEW HIGH MDM 60 MINUTES Colleen Aquino MD 7[address] [facility] [address] [place] [address] Phone: tel: fax: Michael Ram, PT 112 [facility] [address] [place] [address] Phone: tel: fax: Referral ID Status Reason Start Date Expiration Date Visits Re quested Visits Authorized [id number] Closed 01/01/2025 03/03/2025 8 8 [facility] [...] December 26, 2024 End: December 26, 2024 Bowl Attendant Relationship Specialty Start Date End Date Asim Fernandez MD [address] [place] [facility] [address] PCP - General Family Medicine 01/17/25 Bowl Attendant Relationship Specialty Start Date End Date Asim Fernandez MD [address] [place] [facility] [address] PCP - General Family Medicine 01/17/25 Bowl Attendant Relationship Specialty Start Date End Date Asim Fernandez MD [address] [place] [facility] [address] PCP - General Family Medicine 01/17/25 Team [...] 19, 2025 End: March 19, 2025 Tanisha Ocamop DO Attending Provider Active S tart: March [...] content) DATE CREATED AUTHOR [facility]/07/2022 [facility] DATE CREATED AUTHOR AUTHOR'S ORGANIZ ATION 10/30/2024 [facility] DATE CREATED AUTHOR AUTHOR'S ORGANIZ ATION 12/15/2024 [facility] DATE CREATED AUTHOR AUTHOR'S ORGANIZ ATION 01/22/2025 [facility] DATE CREATED AUTHOR AUTHOR'S ORGANIZ ATION 04/26/2025 [facility] [employer] Goals (unrecognized section and content) [...] BE BASED ON THE PRIMARY CLINICAL RECORDS. [facility]. provides no warranty or guarantee of the accuracy or completeness of information in this document.
[2025-05-08 09:18] LABS: Ammonia 22 umol/L (11-32)
[2025-05-08 09:20] LABS: INR 1.03; Partial Thromboplastin Time 28.9 sec (22.3-36.2); Prothrombin Time 10.9 sec (9.0-11.6)
[2025-05-08 09:29] LABS: Alanine Aminotransferase 94 U/L (16-63); Albumin Globulin Ratio 1.0; Albumin Level 3.5 g/dL (3.4-5.0); Alkaline Phosphatase 69 U/L (46-116); Aspartate Amino Transferase 50 U/L (15-37); Globulin 3.5 g/dL; Total Protein 7.0 g/dL (6.4-8.2)
[2025-05-08 10:07] LABS: Mono Screen NEGATIVE (NEGATIVE)
[2025-05-09 14:08] LABS: EBV Nuclear Antigen Ab, IgG 67.6 U/mL (0.0-17.9)
== END 2025-05-08 08:23 | disposition home or self-care (01) ==
LOC: LAB 08:23
PROVIDERS: PCP Family Medicine; Visit Provider Family Medicine
DX: R94.5 Abnormal results of liver function studies (principal)
CPT/HCPCS: 36415; 80074; 80076; 82140; 85610; 85730; 86308; 86664; 86665

== ENCOUNTER 2025-05-08 12:41 | Emergency (ER) | payer BC, SELFPAY ==
[2025-05-08 12:46] VITALS: BP 165/88; PULSE 70; TEMP 37.1; O2SAT 96; BMI 42.4
--- OUTSIDE RECORDS SUMMARY | 2025-05-08 12:52 | XMS_ITS | CCD ---
Author Organization [facility]iniSyn[facility] Care Team Providers Care Buyer Intern Name Role Phone Asim Fernandez Primary Care Physician [phone] DR ASIM FERNANDEZ Primary Care Unavailable GIOVANA, [...] Asim Fernandez MD Primary Care Provider Turovskaya OUTPATIENT RECEPTIONIST, Colleen Attending Provider Unavailable Primary Care Provider [facility] Asim Fernandez MD Primary Care Provider [...] Nithin CANTOR, Williams Amaral Attending Provider [phone] Turovskaya, Colleen Admitting Unavailable Turovskaya, Colleen Attending [...] Allergy Hyperactive behavior (finding) [facility] Medications Current Medications Medication Drug [...] 30 cap(s), Refills(s) 2, Pharmacy: [id number], 188, cm, 06/10/22 9:57:00 EDT, Height/Length Dosing, [...] Start: 02-19-2019 take 2 tablets by mo [facility] once daily in the morning hydrochlorothiazide 25 [...] 02-19-2019 Episodic Other aftercare (1 source) Other penitentiary (current) drug therapy; Translations: [OTH 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 Attending Dr: Colleen Aquino APRN [...] with vacuum disc phenomenon L5-S1 and L2-L3. Mbgc-aj-edtwuenr intervertebral space narrowing with mediastinal L3-L5. Multilevel moderate severe facet arthropathy greatest L4-S1. No fracture malalignment multilevel central canal and foraminal encroachment is better evaluated on recent MRI. CT/CT lumbar spine wo con IMPRESSION: Moderate severe multilevel degenerative changes. Negative acute fracture or malalignment Impression dictated by: Christopher Mendes M.D. 03/18/2025 9:20 AM Dictation Location: [place] [address] Transcribed By: [facility] 03/18/25 0920 Dictated By: Christopher Mendes MD 03/18/25 0916 Signed By: 03/18/25 0920 Normal [facility] MR lumbar spine wo conon MR lumbar spine wo con [facility] [place] [address] [place] [address] MRI Report Signed Patient: Liz Hernandez MR#: [id number] 5 : 1965 Acct:[id number] Age/Sex: 59 / M ADM Date: 02/28/25 Loc: Room: Type: [facility] Attending Dr: Colleen Aquino APRN Copies [...] Figueroa M.D. 02/28/2025 10:53 AM Dictation Location: [place] [address] Transcribed By: ARNULFO 02/28/25 1053 Dictated By: Liz Figueroa II, MD 02/28/25 1044 Signed By: 02/28/25 1053 Normal [facility] Magnetic resonance imaging r eportOrdered By: Liz Figueroa on 02-28-2025 Study report [facility] [place] [address] [place] [address] MRI Report Signed Patient: Liz Hernandez MR#: [id number] : 1965 Acct:[id number] Age/Sex: 59 / M ADM Date: 5 Loc: Room: Type: [facility] Attending Dr: Colleen Aquino APRN [...] Figueroa M.D. 02/28/2025 10:53 AM Dictation Location: [place] [address] Transcribed By: ARNULFO 02/28/25 1053 Dictated By: Liz Figueroa II, MD 02/28/25 1044 Signed By: 02/28/25 1053 [facility] Work Phone: X-ray reportOrdered By: Foreign Mcqueen on 12-26-2024 Study report [facility] Main [address] [address] XRay Report Signed Patient: Liz Hernandez MR#: [id number] : 1965 Acct:[id number] Age/Sex: 59 / M ADM Date: 5 Loc: XD Room: Type: REG CLI Attending Dr: Colleen Aquino OUTPATIENT RECEPTIONIST Copies to: Colleen Aquino APRN~ Ordering Provider: [...] Mcqueen Jr., D.OCullen12/26/2024 2:42 PM Dictation Location: [place] [address] Transcribed By: [facility] 12/26/24 1442 Dictated By: Chi Mcqueen Jr, DO 12/26/24 1441 Signed By: 12/26/24 1442 [facility] XR lumbar spine 6V w bending on 12-26-2024 XR lumbar spine 6V w bending [facility] [place] [address] [address] XRay Report Signed Patient: Liz Hernandez MR#: [id number] 5 : 1965 Acct:[id number] Age/Sex: 59 / M ADM Date: 12/26/24 Loc: XD Room: Type: REG CLI Attending Dr: Colleen Aquino OUTPATIENT RECEPTIONIST Copies to: Colleen Aquino APRN Ordering Provider: Colleen Turovskaya, OUTPATIENT RECEPTIONIST Date of Service: 12/26/24 XR/XR lumbar spine [...] Mcqueen Jr., D.O.12/26/2024 2:42 PM Dictation Location: [place] [address] Transcribed By: [facility] 12/26/24 1442 Dictated By: Chi Mcqueen Jr, DO 12/26/24 1441 Signed By: 12/26/24 1442 Normal [facility] Ambulatory Visit Summaryon 0 10-29-2024 Ambulatory Visit [...] CANTOR, Porsche Kwan Where: [facility] [address] [place] [address]- Medications What How Much When Instructions Unchanged [...] for choosing us for your care. Normal [facility] Reminderson 10-29-2024 Reminders Reminders From: Alexia Vega LPN To: GSN - Clinical; Sent: 10/29/2024 09:31:53 EST Show up: 02/16/2029 07:00:00 EDT Subject: colonoscopy recall Due Date/Time: 03/04/2029 07:00:00 EDT Reminder/Recall Patient is due for screening colonoscopy 03/2029. Normal [facility] Urology Office/Clinic Noteon 09-12-2024 Urology Office/Clinic [...] Urnls Dip Stick Auto w/o Microscopy POC 28775 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 Normal [facility] Comment on above: Result Comment: [...] Porsche AKHTAR MD Where: [facility] [address] [place] [address]- You Need to Schedule the Following Appointments Follow Up with Porsche AKHTAR MD, URL When: Where: [address] [address]- Medications What How Much When [...] Elevated PSA History of procedure Hx of penitentiary use of blood thinners Hyperuricosuria Hypocitraturia Kidney [...] bladder. (more content not included)... Normal [facility] Ambulatory Visit Summaryon 1 Ambulatory Visit Summary [...] MD Where: [facility] [address] 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 (more content not included)... Normal [facility] Urology Office/Clinic Noteon 06-11-2024 Urology Office/Clinic [...] KUB was read as negative at the [facility] but to my review there may be [...] Information GIOVANA CANTOR, Porsche Kwan, URL [address] [place] [address]- Additional Instructions: 1 yr with KUB and [...] with voice recognition artificial intelligence software, specifically [employer] and or [employer]. Substitutions may have occurred due to the inherent limitations of voice recognition and artificial intelligence software. Problem List/Past Medical History Ongoing BMI 40.0-44.9, adult BPH (benign prostatic hyperplasia) Chronic anticoagulation Dermatofibroma of left upper arm Diabetes mellitus type 2, noninsulin dependent Elevated PSA Hx of penitentiary use of blood thinners Kidney stone Nocturia Osteoarthritis Historical GERD (gastroesophag (more content not included)... Normal [facility] Comment on above: Result Comment: [...] by: MANSOOR LIMA Date: 2022-06-16 18:56 Normal [facility] XR KUB 1 VIEWon 06-09-2022 XR [...] definite urinary tract calculi Electronically authenticated by: MASNOOR LIMA Date: 2022-06-09 17:41 Normal [facility] CBC AUTO DIFFon 05-29-2022 BASO # 0.1 103/ul Normal 0.0-0.1 [facility] Comment on above: Performed By: #### C BC ####[facility] [address] [place], [place] [address]GrCullen Aldrich Basophils/100 WBC (Bld) 0.2 % Normal 0.2-2.0 [facility] Comment on above: Performed By: #### C BC ####[facility] [address] [place] [address]Dr. Wyatt Aldrich EO # 0.0 103/ul Normal 0.0-0.7 [facility] Comment on above: Performed By: #### C BC ####[facility] [address] [place] [address]Dr. Wyatt Aldrich Eosinophils/100 WBC (Bld) 0.2 % Critically low 0.9-7.0 [facility] Comment on above: Performed By: #### C BC ####[facility] [address] [place], [place] [address]Dr. Wyatt Aldrich Erythrocyte distribution width (RBC) [Ratio] 12.3 % Normal 11.0-15.0 [facility] Comment on above: Performed By: #### C BC ####[facility] [address] [place], [place] [address]Dr. Wyatt Aldrich Hematocrit (Bld) [Volume fraction] 45.9 % Normal 42.0-54.0 [facility] Comment on above: Performed By: #### C BC ####[facility] [address] [place] [address]Dr. Wyatt Aldrich Hemoglobin (Bld) [Mass/Vol] 15.2 g/dL Normal 14.0-18.0 [facility] Comment on above: Performed By: #### C BC ####[facility] [address] [place] [address]Dr. Wyatt Aldrich IG # 0.09 10e3/ul Critically high 0.00-0.03 [facility] Comment on above: Performed By: #### C BC ####[facility] [address] [place] [address]Dr. Wyatt Aldrich IG % 0.4 % Normal 0.0-0.5 [facility] Comment on above: Performed By: #### C BC ####[facility] [address] [place], [place] [address]Dr. Wyatt Aldrich LYMPH # 1.1 103/ul Critically low 1.2-3.8 [facility] Comment on above: Performed By: #### C BC ####[facility] [address] [place] [address]Dr. Wyatt Valdemar Lymphocytes/100 WBC (Bld) 5.1 % Critically low 20.5-60.0 [facility] Comment on above: Performed By: #### C BC ####[facility] [address] [place] [address]Dr. Jossielalo Aldrich MANUAL DIFF REQ NO Normal [facility] Comment on above: Performed By: #### C BC ####[facility] [address] [place] [address]Dr. Wyatt Valdemar MCH (RBC) [Entitic mass] 30.2 pg Normal 25.9-34.0 [facility] Comment on above: Performed By: #### C BC ####[facility] [address] [place], [place] [address]Dr. Jossielalo Aldrich MCHC (RBC) [Mass/Vol] 33.1 g/dL Normal 29.9-35.2 [facility] Comment on above: Performed By: #### C BC ####[facility] [address] [place], [place] [address]Dr. Wyatt Valdemar MCV (RBC) [Entitic vol] 91.3 fL Normal 80.0-94.0 [facility] Comment on above: Performed By: #### C BC ####[facility] [address] [place], [place] [address]Dr. Wyatt Aldrich MONO # 1.4 103/ul Critically high 0.3-0.8 [facility] Comment on above: Performed By: #### C BC ####[facility] [address] [place], [place] [address]Dr. Jossielalo Aldrich Monocytes/100 WBC (Bld) 6.7 % Normal 1.7-12.0 [facility] Comment on above: Performed By: #### C BC ####[facility] [address] [place], [place] [address]Dr. Wyatt Aldrich NEUT # 18.5 103/ul Critically high 1.4-6.5 [facility] Comment on above: Performed By: #### C BC ####[facility] [address] [place], [place] [address]Mr. Wyatt Aldrich Neutrophils/100 WBC (Bld) 87.4 % Critically high 43.0-75.0 [facility] Comment on above: Performed By: #### C BC ####[facility] [address] [place], [place] [address]Kv. Wyatt Aldrich Platelet mean volume (Bld) [Entitic vol] 9.3 fL Critically low 9.5-13.5 [facility] Comment on above: Performed By: #### C BC ####[facility] [address] [place], [place] [address]Ad. Wyatt Aldrich PLT 303 103/ul Normal 150-450 [facility] Comment on above: Performed By: #### C BC ####[facility] [address] [place], [place] [address]Bq. Wyatt Aldrich RBC 5.03 106/ul Normal 4.70-6.10 [facility] Comment on above: Performed By: #### C BC ####[facility] [address] [place], [place] [address]Pu. Wyatt Aldrich WBC 21.2 103/ul Critically high 4.0-11.0 [facility] Comment on above: Performed By: #### C BC ####[facility] [address] [place], [place] [address]Cs. Wyatt Aldrich CT ABD/PELVIS WO CONon 05-29 [...] by: BOO GUZMAN Date: 2022-05-29 17:32 Normal [facility] ER URINE PROFILEon 2 Bilirubin Ql (U) Negative Normal NEGATIVE [facility] Comment on above: Performed By: #### U MICRO, ERUR #### [facility] Laboratory [address] [place] [address] Dr. Wyatt Aldrich Clarity (U) CLEAR Normal CLEAR [facility] Comment on above: Performed By: #### U MICRO, ERUR #### [facility] Laboratory [address] [place] [address] Dr. Wyatt Aldrich Color (U) LT. YELLOW Normal YELLOW [facility] Comment on above: Performed By: #### U MICRO, ERUR #### [facility] Laboratory [address] [place] [address] [address] Wyatt [place] A micrscopic examination will be performed if indicated. Normal [facility] Comment on above: Performed By: #### U MICRO, ERUR #### [facility] Laboratory [address] [place] [address] [address] Wyatt Aldrich Glucose Ql (U) Negative Normal NEGATIVE [facility] Comment on above: Performed By: #### U MICRO, ERUR #### [facility] Laboratory [address] [place] [address] [address] Wyatt Aldrich Hemoglobin Ql (U) TRACE-INTACT Abnormal NEGATIVE [facility] Comment on above: Performed By: #### U MICRO, ERUR #### [facility] Laboratory [address] [place] [address] Dr. Wyatt Aldrich Ketones Ql (U) Negative Normal NEGATIVE [facility] Comment on above: Performed By: #### U MICRO, ERUR #### [facility] Laboratory [address] [place] [address] Dr. Wyatt Aldrich LEUKOCYTES Negative Normal NEGATIVE [facility] Comment on above: Performed By: #### U MICRO, ERUR #### [facility] Laboratory [address] [place] [address] Dr. Wyatt Aldrich Nitrite Ql (U) Negative Normal NEGATIVE [facility] Comment on above: Performed By: #### U MICRO, ERUR #### [facility] Laboratory [address] [place] [address] Dr. Wyatt Aldrich pH (U) 7.0 [pH] Normal 5-9 [facility] Comment on above: Performed By: #### U MICRO, ERUR #### [facility] Laboratory [address] [place] [address] Dr. Wyatt Aldrich SPEC GRAVITY 1.020 Normal 1.005-<=1.025 [facility] Comment on above: Performed By: #### U MICRO, ERUR #### [facility] Laboratory [address] [place] [address] Dr. Wyatt Aldrich UA PROTEIN Negative Normal NEGATIVE/ TRACE [facility] Comment on above: Performed By: #### U MICRO, ERUR #### [facility] Laboratory [address] [place] [address] Dr. Wyatt Aldrich UR MICRO IND INDICATED Normal [facility] Comment on above: Performed By: #### U MICRO, ERUR #### [facility] Laboratory [address] [place] [address] Dr. Wyatt Aldrich Urobilinogen Qn (U) 0.2 {Sharon'U}/dL Normal 0.2 - 1. 0 [facility] Comment on above: Performed By: #### U MICRO, ERUR #### [facility] Laboratory [address] [place] [address] Dr. Wyatt Aldrich PROF 14(COMP METB)on 022 Albumin [Mass/Vol] 3.9 g/dL Normal 3.4-5.0 [facility] Comment on above: Performed By: #### C MP #### [facility] Laboratory [address] [place] [address] Dr. Wyatt Aldrich Albumin/Globulin [Mass ratio] 1.1 {ratio} Normal [facility] Comment on above: Performed By: #### C MP #### [facility] Laboratory [address] [place] [address] Dr. Wyatt Aldrich ALP [Catalytic activity/Vol] 70 U/L Normal 46-116 [facility] Comment on above: Performed By: #### C MP #### [facility] Laboratory [address] [place] [address] Dr. Wyatt Aldrich ALT [Catalytic activity/Vol] 38 U/L Normal 16-63 [facility] Comment on above: Performed By: #### C MP #### [facility] Laboratory [address] [place] [address] Dr. Wyatt Aldrich Anion gap [Moles/Vol] 12.6 mmol/L Normal [facility] Comment on above: Performed By: #### C MP #### [facility] Laboratory [address] [place] [address] Dr. Wyatt Aldrich AST [Catalytic activity/Vol] 20 U/L Normal 15-37 [facility] Comment on above: Performed By: #### C MP #### [facility] Laboratory [address] [place] [address] Dr. Wyatt Aldrich Bilirubin [Mass/Vol] 0.6 mg/dL Normal 0.2-1.0 [facility] Comment on above: Performed By: #### C MP #### [facility] Laboratory [address] [place] [address] Dr. Wyatt Aldrich Calcium [Mass/Vol] 8.7 mg/dL Normal 8.5-10.1 [facility] Comment on above: Performed By: #### C MP #### [facility] Laboratory [address] [place] [address] [address] Wyatt Aldrich Chloride [Moles/Vol] 95 mmol/L Critically low 98-107 [facility] Comment on above: Performed By: #### C MP #### [facility] Laboratory [address] [place] [address] Dr. Wyatt Aldrich CO2 [Moles/Vol] 29.9 mmol/L Normal 21.0-32.0 [facility] Comment on above: Performed By: #### C MP #### [facility] Laboratory [address] [place] [address] [address] Wyatt Aldrich Creatinine [Mass/Vol] 1.04 mg/dL Normal 0.70-1.30 [facility] Comment on above: Performed By: #### C MP #### [facility] Laboratory [address] [place] [address] [address] Wyatt Aldrich EGFR-AF CHINESE >60 Normal >=60 [facility] Comment on above: Performed By: #### C MP #### [facility] Laboratory [address] [place] [address] [address] Wyatt Aldrich EGFR-NON AF CHINESE >60 Normal >=60 [facility] Comment on above: Performed By: #### C MP #### [facility] Laboratory [address] [place] [address] Dr. Wyatt Aldrich Globulin (S) [Mass/Vol] 3.4 g/dL Normal [facility] Comment on above: Performed By: #### C MP #### [facility] Laboratory [address] [place] [address] [address] Wyatt Aldrich Glucose [Mass/Vol] 148 mg/dL Critically high 74-[address] [facility] Comment on above: Performed By: #### C MP #### [facility] Laboratory [address] [place] [address] Dr. Wyatt Aldrich Potassium [Moles/Vol] 4.5 mmol/L Normal 3.5-5.1 [facility] Comment on above: Performed By: #### C MP #### [facility] Laboratory [address] [place] [address] [address] Wyatt Aldrich Protein [Mass/Vol] 7.3 g/dL Normal 6.4-8.2 [facility] Comment on above: Performed By: #### C MP #### [facility] Laboratory [address] [place] [address] [address] Wyatt Aldrich Sodium [Moles/Vol] 133 mmol/L Critically low 136-145 [facility] Comment on above: Performed By: #### C MP #### [facility] Laboratory [address] [place] [address] [address] Wyatt Aldrich Urea nitrogen [Mass/Vol] 15.0 mg/dL Normal 7.0-18.0 [facility] Comment on above: Performed By: #### C MP #### [facility] Laboratory [address] [place] [address] Dr. Wyatt Aldrich Urea nitrogen/Creatinine [Mass ratio] 14.4 mg/mg Normal [facility] Comment on above: Performed By: #### C MP #### [facility] Laboratory [address] [place] [address] Dr. Wyatt Aldrich URINE MICROSCOPIC ONLYon BACTERIA NONE SEEN Normal NONE SEEN [facility] Comment on above: Performed By: #### U MICRO, ERUR #### [facility] Laboratory [address] [place] [address] Dr. Wyatt Aldrich Bacteria identified Cx Nom (U) NOT INDICATED Normal [facility] Comment on above: Performed By: #### U MICRO, ERUR #### [facility] Laboratory [address] [place] [address] Dr. Wyatt Aldrich CAST NONE SEEN Normal NONE SEEN [facility] Comment on above: Performed By: #### U MICRO, ERUR #### [facility] Laboratory [address] [place] [address] Dr. Wyatt Aldrich Crystals LM Nom (Urine sed) NONE SEEN Normal NONE SEEN [facility] Comment on above: Performed By: #### U MICRO, ERUR #### [facility] Laboratory [address] [place] [address] Dr. Wyatt Aldrich Epithelial cells LM Ql (Urine sed) NONE SEEN Normal NONE SEEN /RARE [facility] Comment on above: Performed By: #### U MICRO, ERUR #### [facility] Laboratory [address] [place] [address] Dr. Wyatt lAdrich MUCOUS NONE SEEN Normal NONE SEEN [facility] Comment on above: Performed By: #### U MICRO, ERUR #### [facility] Laboratory [address] [place] [address] Dr. Wyatt Aldrich RBC 2-5 Abnormal 0-2 [facility] Comment on above: Performed By: #### U MICRO, ERUR #### [facility] Laboratory [address] [address] [address] Wyatt Aldrich WBC NONE SEEN Normal NONE SEEN [facility] Comment on above: Performed By: #### U MICRO, ERUR #### [facility] [address] [address] [address] Wyatt Aldrich T4 LABCORPon 01-29-2022 T4 [Mass/Vol] 9.1 ug/dL Normal 4.5-12.0 [facility] Comment on above: Performed By: #### T 4LC ####[facility] [address] [address]Dr. Wyatt Aldrich CBC AUTO DIFFon 01-28-2022 BASO # 0.1 103/ul Normal 0.0-0.1 [facility] Comment on above: Performed By: #### C BC ####[facility] [address] [place], [place] [address]DrCullen Aldrich Basophils/100 WBC (Bld) 0.6 % Normal 0.2-2.0 [facility] Comment on above: Performed By: #### C BC ####[facility] [address] [place], [place] [address]Dr. Wyatt Aldrich EO # 0.2 103/ul Normal 0.0-0.7 [facility] Comment on above: Performed By: #### C BC ####[facility] [address] [place], [place] [address]DrCullen Aldrich Eosinophils/100 WBC (Bld) 2.4 % Normal 0.9-7.0 [facility] Comment on above: Performed By: #### C BC ####[facility] P[address] [place], [place] [address]DrCullen Aldrich Erythrocyte distribution width (RBC) [Ratio] 12.5 % Normal 11.0-15.0 [facility] Comment on above: Performed By: #### C BC ####[facility] G[address] [place], [place] [address]DrCullen Aldrich Hematocrit (Bld) [Volume fraction] 43.5 % Normal 42.0-54.0 [facility] Comment on above: Performed By: #### C BC ####[facility] [address] [address]DrCullen Aldrich Hemoglobin (Bld) [Mass/Vol] 14.4 g/dL Normal 14.0-18.0 [facility] Comment on above: Performed By: #### C BC ####[facility] [address] [address]Dr. Wyatt Aldrich IG # 0.03 10e3/ul Normal 0.00-0.03 [facility] Comment on above: Performed By: #### C BC ####[facility] [address] [place], [place] [address]DrCullen Aldrich IG % 0.4 % Normal 0.0-0.5 [facility] Comment on above: Performed By: #### C BC ####[facility] [address] [place], [place] [address]DrCullen Aldrich LYMPH # 2.1 103/ul Normal 1.2-3.8 [facility] Comment on above: Performed By: #### C BC ####[facility] [address] [place], [place] [address]DrCuleln Aldrich Lymphocytes/100 WBC (Bld) 24.8 % Normal 20.5-60.0 [facility] Comment on above: Performed By: #### C BC ####[facility] [address] [address]DrCullen Aldrich MANUAL DIFF REQ NO Normal [facility] Comment on above: Performed By: #### C BC ####[facility] [address] [id number] Aldrich MCH (RBC) [Entitic mass] 30.6 pg Normal 25.9-34.0 [facility] Comment on above: Performed By: #### C BC ####[facility] [address] [id number] Aldrich MCHC (RBC) [Mass/Vol] 33.1 g/dL Normal 29.9-35.2 [facility] Comment on above: Performed By: #### C BC ####[facility] [address] [address]DrCullen Wyatt Valdemar MCV (RBC) [Entitic vol] 92.6 fL Normal 80.0-94.0 [facility] Comment on above: Performed By: #### C BC ####[facility] [address] [address]DrCullen Aldrich MONO # 0.6 103/ul Normal 0.3-0.8 [facility] Comment on above: Performed By: #### C BC ####[facility] [address] [address]DrCullen Aldrich Monocytes/100 WBC (Bld) 7.7 % Normal 1.7-12.0 [facility] Comment on above: Performed By: #### C BC ####[facility] [address] [place], [place] [address]Dr. Wyatt Aldrich NEUT # 5.3 103/ul Normal 1.4-6.5 [facility] Comment on above: Performed By: #### C BC ####[facility] [address] [place], [place] [address]Dr. Wyatt Aldrich Neutrophils/100 WBC (Bld) 64.1 % Normal 43.0-75.0 [facility] Comment on above: Performed By: #### C BC ####[facility] [address] [address]DrCullen Aldrich Platelet mean volume (Bld) [Entitic vol] 9.4 fL Critically low 9.5-13.5 [facility] Comment on above: Performed By: #### C BC ####[facility] [address] [place], [place] [address]Dr. Wyatt Aldrich PLT 280 103/ul Normal 150-450 [facility] Comment on above: Performed By: #### C BC ####[facility] [address] [phone]. Wyatt Aldrich RBC 4.70 106/ul Normal 4.70-6.10 [facility] Comment on above: Performed By: #### C BC ####[facility] [address] [address]Dr. Wyatt Aldrich WBC 8.3 103/ul Normal 4.0-11.0 [facility] Comment on above: Performed By: #### C BC ####[facility] [address] [phone]. Wyatt Aldrich FREE T3on 01-28-2022 FREE T3 2.70 pg/mlL Normal 2.18-3.98 [facility] Comment on above: Performed By: #### L IPID, CMP, TSH, FT3 ####[facility] [address] [address]Dr. Wyatt Aldrich GLYCOHEMOGLOBIN A1Con 2021 ADA RECOMMENDATION SEE BELOW Normal [facility] Comment on above: Result Comment: ADA RECOMMENDED LIMIT 4.0 - 6.0 ADA THERAPEUTIC TARGET < 7.0 ACTION SUGGESTED > 7.0 Performed By: #### A 1C #### [facility] [address] [address] [address] Wyatt Aldrich Glucose [Mass/Vol] 143 mg/dL Normal [facility] Comment on above: Performed By: #### A 1C #### [facility] [address] [address] [address] Wyatt Aldrich HbA1c (Bld) [Mass fraction] 6.6 % Critically high 4.5-6.2 [facility] Comment on above: Performed By: #### A 1C #### [facility] [address] [address] [address] Wyatt Aldrich LIPID PROFILEon 01-28-2022 CHOL-HDL RATIO NORM SEE BELOW Normal [facility] Comment on above: Result Comment: 3.3 - 4.4 LOW RISK 4.4 - 7.1 AVERAGE RISK 7.1 - 11.0 MODERATE RISK >11.0 HIGH RISK Performed By: #### L IPID, CMP, TSH, FT3 ####[facility] [address] [address]Dr. Wyatt Aldrich Cholesterol [Mass/Vol] 176 mg/dL Normal <=200 [facility] Comment on above: Performed By: #### L IPID, CMP, TSH, FT3 ####[facility] [address] [address]Dr. Wyatt Aldrich Cholesterol in HDL [Mass/Vol] 35 mg/dL Critically low 40-60 [facility] Comment on above: Performed By: #### L IPID, CMP, TSH, FT3 ####[facility] [address] [address]Dr. Wyatt Aldrich Cholesterol in LDL [Mass/Vol] 94.4 mg/dL Normal [facility] Comment on above: Performed By: #### L IPID, CMP, TSH, FT3 ####[facility] [address] [address]Dr. Wyatt Aldrich Cholesterol.total/Ch olesterol in HDL [Mass ratio] 5.0 {ratio} Normal [facility] Comment on above: Performed By: #### L IPID, CMP, TSH, FT3 ####[facility] [address] [address]Dr. Wyatt Aldrich HDL NORMAL > or = 60 mg/dl - LO W CARDIOVASCULAR RISK <40 mg/dl - HIGH CARDIOVASCULAR RISK Normal [facility] Comment on above: Performed By: #### L IPID, CMP, TSH, FT3 ####[facility] [address] [address]Dr. Wyatt Aldrich LDL CALC NORMAL SEE BELOW Normal [facility] Comment on above: Result Comment: <100 mg/dl OPTIMAL 100 - 129 mg/dl NEAR OR ABOVE OPTIMAL 130 - 159 mg/dl BORDERLINE HIGH 160 - 189 mg/dl HIGH >190 mg/dl VERY HIGH Performed By: #### L IPID, CMP, TSH, FT3 ####[facility] [address] [address]Dr. Waytt Aldrich Triglyceride [Mass/Vol] 233 mg/dL Critically high <=150 [facility] Comment on above: Performed By: #### L IPID, CMP, TSH, FT3 ####[facility] [address] [address]Dr. Wyatt Aldrich VLDL CALC 46.6 mg/dL Normal [facility] Comment on above: Performed By: #### L IPID, CMP, TSH, FT3 ####[facility] [address] [address]Dr. Wyatt Aldrich OCC BLD IMMUNO SCREENon 01-03 OCCULT BLOOD Negative Normal NEGATIVE [facility] Comment on above: Performed By: #### O BSCRN #### [facility] [address] [address] [address] Wyatt Aldrich PROF 14(COMP METB)on 022 Albumin [Mass/Vol] 3.4 g/dL Normal 3.4-5.0 [facility] Comment on above: Performed By: #### L IPID, CMP, TSH, FT3 ####[facility] [address] [address]Dr. Wyatt Aldrich Albumin/Globulin [Mass ratio] 1.0 {ratio} Normal [facility] Comment on above: Performed By: #### L IPID, CMP, TSH, FT3 ####[facility] [address] [address]Dr. Wyatt Aldrich ALP [Catalytic activity/Vol] 65 U/L Normal 46-116 [facility] Comment on above: Performed By: #### L IPID, CMP, TSH, FT3 ####[facility] [address] [address]Dr. Wyatt Aldrich ALT [Catalytic activity/Vol] 45 U/L Normal 16-63 [facility] Comment on above: Performed By: #### L IPID, CMP, TSH, FT3 ####[facility] [address] [address]Dr. Wyatt Aldrich Anion gap [Moles/Vol] 9.7 mmol/L Normal [facility] Comment on above: Performed By: #### L IPID, CMP, TSH, FT3 ####[facility] [address] [address]Dr. Wyatt Aldrich AST [Catalytic activity/Vol] 20 U/L Normal 15-37 [facility] Comment on above: Performed By: #### L IPID, CMP, TSH, FT3 ####[facility] [address] [address]Dr. Wyatt Aldrich Bilirubin [Mass/Vol] 0.4 mg/dL Normal 0.2-1.0 [facility] Comment on above: Performed By: #### L IPID, CMP, TSH, FT3 ####[facility] [address] [address]Dr. Wyatt Aldrich Calcium [Mass/Vol] 8.5 mg/dL Normal 8.5-10.1 [facility] Comment on above: Performed By: #### L IPID, CMP, TSH, FT3 ####[facility] [address] [place], [place] [address]Dr. Wyatt Aldrich Chloride [Moles/Vol] 101 mmol/L Normal 98-107 [facility] Comment on above: Performed By: #### L IPID, CMP, TSH, FT3 ####[facility] [address] [place], [place] [address]Dr. Wyatt Aldrich CO2 [Moles/Vol] 33.3 mmol/L Critically high 21.0-32.0 [facility] Comment on above: Performed By: #### L IPID, CMP, TSH, FT3 ####[facility] [address] [address]Dr. Wyatt Aldrich Creatinine [Mass/Vol] 0.77 mg/dL Normal 0.70-1.30 [facility] Comment on above: Performed By: #### L IPID, CMP, TSH, FT3 ####[facility] [address] [address]Dr. Wyatt Aldrich EGFR-AF CHINESE >60 Normal >=60 [facility] Comment on above: Performed By: #### L IPID, CMP, TSH, FT3 ####[facility] [address] [address]Dr. Wyatt Aldrich EGFR-NON AF CHINESE >60 Normal >=60 [facility] Comment on above: Performed By: #### L IPID, CMP, TSH, FT3 ####[facility] [address] [address]Dr. Wyatt Aldrich Globulin (S) [Mass/Vol] 3.3 g/dL Normal [facility] Comment on above: Performed By: #### L IPID, CMP, TSH, FT3 ####[facility] [address] [address]Dr. Wyatt Aldrich Glucose [Mass/Vol] 137 mg/dL Critically high 74-[address] [facility] Comment on above: Performed By: #### L IPID, CMP, TSH, FT3 ####[facility] [address] [place], [place] [address]Dr. Wyatt Aldrich Potassium [Moles/Vol] 4.0 mmol/L Normal 3.5-5.1 [facility] Comment on above: Performed By: #### L IPID, CMP, TSH, FT3 ####[facility] R[address] [place], [place] [address]Dr. Wyatt Aldrich Protein [Mass/Vol] 6.7 g/dL Normal 6.4-8.2 [facility] Comment on above: Performed By: #### L IPID, CMP, TSH, FT3 ####[facility] [address] [place], [place] [address]Dr. Wyatt Aldrich Sodium [Moles/Vol] 140 mmol/L Normal 136-145 [facility] Comment on above: Performed By: #### L IPID, CMP, TSH, FT3 ####[facility] [address] [place], [place] [address]Dr. Wyatt Aldrich Urea nitrogen [Mass/Vol] 13.0 mg/dL Normal 7.0-18.0 [facility] Comment on above: Performed By: #### L IPID, CMP, TSH, FT3 ####[facility] [address] [place], [place] [address]Dr. Wyatt Aldrich Urea nitrogen/Creatinine [Mass ratio] 16.9 mg/mg Normal [facility] Comment on above: Performed By: #### L IPID, CMP, TSH, FT3 ####[facility] [address] [place], [place] [address]Vv. Wyatt Aldrich TSHon 01-28-2022 TSH 5.562 uIU/mL Critically high 0.358-3.740 [facility] Comment on above: Performed By: #### L IPID, CMP, TSH, FT3 ####[facility] [address] [place], [place] [address]Kq. Wyatt Aldrich TSH RANGE SEE BELOW Normal [facility] Comment on above: Result Comment: <0.3 4 UIU/ml HYPERTHYROID 0.34-5.60 UIU/ml EUTHYROID >5.60 UIU/ml HYPOTHYROID Performed By: #### L IPID, CMP, TSH, FT3 ####[facility] [address] [place], [place] [address]Mv. Wyatt Aldrich XR KUB 1 VIEWon 01-20-2022 [...] MANSOOR LIMA Date: 2022-01-20 14:12 Normal [facility] MRI LSPINE WO W CONon 2021 MRI [...] by: TANISHA CHIU Date: 2021-10-04 11:23 Normal [facility] XR LSPINE MIN 4 VIEWSon 09-05 [...] by: SOLO SAVAGE Date: 2021-09-27 11:31 Normal [facility] Vital Signs Date Time Vital Sign Value Performing Clinician Jessi chowdhury 04-23-2025 10:28-0400 Body weight 161.2 kg Asim Fernandez MD Work Phone: [facility] 03-19-2025 09:07-0400 Body height 187.96 cm Asim Fernandez MD Work Phone: [facility] 03-19-2025 09:07-0400 Body mass index (BMI) [Ratio] 46.2 kg/m2 Asim Fernandez MD Work Phone: [facility] 03-19-2025 09:07-0400 Body weight 163.2 kg Asim Fernandez MD Work Phone: [facility] 03-04-2025 08:41-0400 Body height 187.96 cm Asim Fernandez MD Work Phone: [facility] 03-04-2025 08:41-0400 Body mass index (BMI) [Ratio] 45.6 kg/m2 Asim Fernandez MD Work Phone: [facility] 03-04-2025 08:41-0400 Body weight 161.3 kg Asim Fernandez MD Work Phone: [facility] 01-30-2025 10:28-0400 Body weight 164.9 kg Asim Fernandez MD Work Phone: [facility] 12-26-2024 08:29-0400 Body weight 164 kg [facility] 10-29-2024 08:25-0500 Blood Pressure Location Michele RAYGOZA [facility] [place] 10-29-2024 08:25-0500 Diastolic blood pressure 72 mm[Hg] Michele RAYGOZA [facility] [place] 10-29-2024 08:25-0500 Heart rate 64 /min Michele RAYGOZA [facility] 10-29-2024 08:25-0500 Respiratory rate 16 /min Michele RAYGOZA [facility] [place] 10-29-2024 08:25-0500 Systolic blood pressure 129 mm[Hg] Michele NILL [facility] [place] 09-10-2024 09:50-0500 Diastolic blood pressure 78 mm[Hg] Zena Orzech [facility] 09-10-2024 09:50-0500 Mean blood pressure 99 mm[Hg] Zena Orzech [facility] 09-10-2024 09:50-0500 Systolic blood pressure 140 mm[Hg] Zena Orzech [facility] 09-10-2024 09:27-0500 Blood Pressure Location Zena Orzech [facility] 09-10-2024 09:27-0500 Body temperature 98.6 [degF] Zena Orzech [facility] 09-10-2024 09:27-0500 Diastolic blood pressure 96 mm[Hg] Zena Orzech [facility] 09-10-2024 09:27-0500 Heart rate 69 /min Zena Orzech [facility] 09-10-2024 09:27-0500 Systolic blood pressure 190 mm[Hg] Zena Orzech [facility] 06-11-2024 08:19-0400 Blood Pressure Location Porsche AKHTAR [facility] 06-11-2024 08:19-0400 Diastolic blood pressure 111 mm[Hg] Porsche AKHTAR [facility] 06-11-2024 08:19-0400 Heart rate 71 /min Porsche COOK [facility] 06-11-2024 08:19-0400 Systolic blood pressure 190 mm[Hg] Porsche COOK [facility] 06-06-2023 08:48-0400 Blood Pressure Location Porsche COOK [facility] 06-06-2023 08:48-0400 Diastolic blood pressure 66 mm[Hg] Porsche COOK [facility] 06-06-2023 08:48-0400 Heart rate 83 /min Porsche COOK [facility] 06-06-2023 08:48-0400 Systolic blood pressure 142 mm[Hg] Porsche COOK [facility] 06-17-2022 09:14-0400 Blood Pressure Location Porsche COOK [facility] 06-17-2022 09:14-0400 Diastolic blood pressure 96 mm[Hg] Porsche COOK [facility] 06-17-2022 09:14-0400 Heart rate 67 /min Porsche COOK [facility] 06-17-2022 09:14-0400 Systolic blood pressure 159 mm[Hg] Porsche COOK [facility] 06-10-2022 09:54-0400 Blood Pressure Location Porsche COOK [facility] 06-10-2022 09:54-0400 Diastolic blood pressure 102 mm[Hg] Porsche AKHTAR [facility] 06-10-2022 09:54-0400 Heart rate 68 /min Porsche AKHTAR [facility] 06-10-2022 09:54-0400 Systolic blood pressure 166 mm[Hg] Porsche AKHTAR [facility] 01-21-2022 08:44-0400 Blood Pressure Location Porsche AKHTAR [facility] 01-21-2022 08:44-0400 Diastolic blood pressure 87 mm[Hg] Porsche AKHTAR [facility] 01-21-2022 08:44-0400 Heart rate 72 /min Porsche AKHTAR [facility] 01-21-2022 08:44-0400 Systolic blood pressure 140 mm[Hg] Porsche AKHTAR [facility] Encounters Encounter Date Encounter Type Care Provider Facility Start: 04-23-2025 End: 04-23-2025 ambulatory Asim Fernandez MD Work Phone: [facility] Work Phone: Start: 04-23-2025 End: 04-23-2025 Patient encounter procedure Tanisha Ocampo [facility] Work Phone: Start: 04-09-2025 End: 04-09-2025 Patient encounter procedure Tanisha Ocampo DO -[facility] Work Phone: Start: 04-09-2025 End: 04-09-2025 ambulatory Asim Fernandez MD Work Phone: [facility] Work Phone: Start: 04-09-2025 Non-patient / Non-visit Eyad Amaral MD -[facility] Work Phone: Start: 03-19-2025 End: 03-19-2025 ambulatory Asim Fernandez MD Work Phone: [facility] Work Phone: Start: 03-19-2025 End: 03-19-2025 Patient encounter procedure Tanisha Ocampo DO -[facility] Work Phone: Start: 03-18-2025 End: 03-18-2025 Patient encounter procedure Colleen Miles LOPEZN -[facility] Work Phone: Start: 03-18-2025 End: 03-18-2025 ambulatory Asim Fernandez MD Work Phone: [facility] Work Phone: Start: 03-04-2025 End: 03-04-2025 ambulatory Asim Fernandez MD Work Phone: [facility] Work Phone: Start: 03-04-2025 End: 03-04-2025 Patient encounter procedure Colleen Aquino APRN -[facility] Work Phone: Start: 02-28-2025 End: 02-28-2025 Patient encounter procedure Colleen Aquino OUTPATIENT RECEPTIONIST -[facility] [place] Work Phone: Start: 02-28-2025 End: 02-28-2025 ambulatory Asim Fernandez MD Work Phone: [facility] Work Phone: Start: 01-30-2025 End: 01-30-2025 ambulatory Asim Fernandez MD Work Phone: [facility] Work Phone: Start: 01-30-2025 End: 01-30-2025 Patient encounter procedure Asim Fernandez MD Work Phone: [facility] Work Phone: Start: 01-21-2025 End: 01-21-2025 Bamboo flowsheet Loi Benitez INDUSTRIAL PHARMACIST [facility] Start: 01-21-2025 End: 01-21-2025 Bamboo flowsheet Loi Benitez INDUSTRIAL PHARMACIST [facility] Start: 01-21-2025 End: 01-21-2025 ambulatory Loi Benitez INDUSTRIAL PHARMACIST [facility] Comment on above: Lumbar paraspinal mu scle spasm (Primary Dx); Cervical radiculopathy Start: 01-17-2025 End: 01-17-2025 Bamboo flowsheet Loi Gabriel INDUSTRIAL PHARMACIST [facility] Start: 01-17-2025 End: 01-17-2025 Bamboo flowsheet Loi Gabriel INDUSTRIAL PHARMACIST [facility] Start: 01-17-2025 End: 01-17-2025 ambulatory Loi Benitez INDUSTRIAL PHARMACIST [facility] Comment on above: Lumbar paraspinal mu scle spasm (Primary Dx); Cervical radiculopathy Start: 01-15-2025 End: 01-15-2025 Bamboo flowsheet Loi Benitez INDUSTRIAL PHARMACIST [facility] Start: 01-15-2025 End: 01-15-2025 Bamboo flowsheet Loi Benitez INDUSTRIAL PHARMACIST [facility] Start: 01-15-2025 End: 01-15-2025 ambulatory Loi Benitez INDUSTRIAL PHARMACIST [facility] Comment on above: Lumbar paraspinal mu scle spasm (Primary Dx); Cervical radiculopathy Start: 01-09-2025 End: 01-09-2025 Bamboo flowsheet Loi Gabriel INDUSTRIAL PHARMACIST [facility] Start: 01-09-2025 End: 01-09-2025 Bamboo flowsheet Loi Gabriel INDUSTRIAL PHARMACIST [facility] Start: 01-09-2025 End: 01-09-2025 ambulatory Loi Gabriel INDUSTRIAL PHARMACIST [facility] Comment on above: Lumbar [...] 12-26-2024 ambulatory Asim Fernandez MD Work Phone: [facility] Work Phone: Start: 12-26-2024 End: 12-26-2024 Patient encounter procedure [facility] Work Phone: Start: 12-09-2024 End: 12-09-2024 ambulatory Heather Turcios MD Facility:[facility] Start: 10-29-2024 End: 10-29-2024 ambulatory Michele RAYGOZA Facility:[facility] Start: 10-29-2024 End: 10-29-2024 Patient encounter procedure Michele RAYGOZA [facility] [place] Start: 10-18-2024 ambulatory Porsche AKHTAR Facility: [facility] Start: 09-10-2024 End: 09-10-2024 ambulatory Zena X Sole Facility:[facility] Start: 09-10-2024 End: 09-10-2024 Patient encounter procedure Zena X Orzech [facility] Start: 06-11-2024 End: 06-11-2024 ambulatory Porsche AKHTAR Facility: [place] Start: 06-11-2024 End: 06-11-2024 Patient encounter procedure Porsche AKHTAR [facility] Start: 06-10-2024 End: 06-10-2024 ambulatory Heather Turcios MD Facility:[facility] [place] Start: 02-19-2024 End: 02-19-2024 ambulatory Heather Turcios MD Facility:[facility] [place] Start: 02-05-2024 End: 02-05-2024 ambulatory Heather Turcios MD Facility:[facility] [place] Start: 06-06-2023 End: 06-06-2023 Patient encounter procedure Porsche AKHTAR [facility] Start: 06-17-2022 End: 06-17-2022 Patient encounter procedure Porsche AKHTAR [facility] Start: 06-16-2022 End: 06-17-[address] ASIM FERNANDEZ Facility: Start: 06-10-2022 End: 06-10-2022 Patient encounter procedure Porsche AKHTAR [facility] Start: 06-09-2022 End: 06-10-[address] ASIM FERNANDEZ Facility:[facility] Start: 05-29-2022 End: 05-29-[address] ASIM FERNANDEZ Facility:[facility] Start: 05-11-2022 End: 05-11-2022 Patient encounter procedure Porsche AKHTAR [facility] Start: 02-03-2022 Encounter for genera l adult medical examination without abnormal findings DR ASIM FERNANDEZ [facility] Start: 01-28-2022 End: 01-29-[address] ASIM FERNANDEZ Facility:[facility] Start: 01-28-2022 End: 01-29-2022 Encounter for general adult medical examination without abnormal findings DR ASIM FERNANDEZ Facility:[facility] Start: 01-21-2022 End: 01-21-2022 Patient encounter procedure Porsche AKHTAR [facility] Start: 01-20-2022 End: 01-21-[address] ASIM FERNANDEZ Facility:[facility] Start: 10-04-2021 End: 10-05-[address] ASIM FERNANDEZ Facility:[facility] Start: 09-29-2021 End: 09-29-2021 ambulatory MARILU MURGUIA Facility:[facility] Start: 09-27-2021 End: 09-28-[address] ASIM FERNANDEZ Facility:[facility] Procedures Date Procedure Procedure Detail Performing Clinician Start: 03-18-2025 CT of lumbar spine w ithout contrast Asim Fernandez MD Work Phone: Start: 02-28-2025 MR lumbar spine wo con Asmi Fernandez MD Work Phone: Start: 12-26-2024 X-ray of lumbar spin e, six views including bending views Asim Fernandez MD Work Phone: Start: 05-26-2022 Extracorporeal shock wave lithotripsy of calculus of kidney Porsche AKHTAR Start: 01-28-[address] WES FERNANDEZ Comment on above: Performed By: #### P SAD ####[facility] [address] [place], [place] [address]HbCullen Aldrich Start: 08-13-2020 Extracorporeal shock wave lithotripsy [...] Ended) [facility] Start: 04-23-2025 Patient referral [facility] Work Phone: Start: 01-28-2025 End: 01-28-2025 ambulatory [facility] Start: 01-23-2025 End: 01-23-2025 ambulatory [facility] Start: 01-21-2025 End: 01-21-2025 ambulatory [facility] Start: 01-17-2025 End: 01-17-2025 ambulatory 01/17/2025 10:30 AM EDT Treatment [facility] [address] [place] [address] Loi Benitez PTA [facility] Start: 01-15-2025 End: 01-15-2025 ambulatory [facility] Comment on above: Arrived Start: 01-09-2025 End: 01-09-2025 ambulatory [facility] Comment on above: Arrived Start: 01-01-2025 End: 01-01-2025 ambulatory 01/01/2025 10:00 AM EDT Evaluation [facility] [address] [facility] [address] [place] [address] Michael Ram, PT [address] [facility] [address] [place] [address] Arrived [facility] Comment on above: Arrived Start: 12-26-2024 Patient referral [facility] Work Phone: Start: 1965 Screening for malign ant neoplasm of colon [facility] Electromyography [facility] Patient referral [facility] Work Phone: XR Lumbar spine Views [facility] Immunizations Immunization Date Immunization Notes Care Provider Mica biggs 04-19-2022 zoster vaccine recombinant Porsche AKHTAR [facility] 02-12-2022 pneumococcal 20-maría nt conjugate vaccine Porsche AKHTAR [facility] 02-03-2022 zoster vaccine recombinant Porsche AKHTAR [facility] 12-08-2020 SARS-CoV-2 (COVID-19 ) mRNA-1273 vaccine Porsche AKHTAR [facility] 11-17-2020 SARS-CoV-2 (COVID-19 ) mRNA BNT-162b2 vax Porsche AKHTAR [facility] 11-11-2020 SARS-CoV-2 (COVID-19 ) mRNA-5674 vaccine Porsche AKHTAR [facility] Payers Date Payer Category Payer Self-pay 2023 [facility] [id number] 2023 Private Health Insurance [id number] 315 2023 Unknown 2023 Unknown [id number] 1965 Unknown [id number] 2.840.1.292994.3.57 9.2.593 1964 Unknown [id number] 2.16840.1.650782.3.57 9.2.593 1964 Unknown [id number] 2.16.840.1.768036.3.57 9.2.593 1964 Unknown [id number] 2.16.840.1.494193.3.57 9.2.593 1964 Unknown [id number] 2.16.840.1.145599.3.57 9.2.593 1964 Unknown [id number] 2.16.840.1.617166.3.57 9.2.593 1964 Unknown [id number] 2.16.840.1.598587.3.57 9.2.593 1964 Unknown [id number] 2.16.840.1.560124.3.57 9.2.593 1964 Unknown [id number] 2.16.840.1.924401.3.57 9.2.727 1964 Unknown [id number] 2.16840.1.576925.3.57 9.2.727 1964 Unknown [id number] 2.16.840.1.623013.3.57 9.2.727 1964 Unknown [id number] 2.16840.1.314225.3.57 9.2.727 1964 Unknown [id number] 2.16840.1.830735.3.57 9.2.196 1964 Unknown [id number] 2.840.1.327719.3.57 9.2.196 1964 Unknown [id number] 2.16840.1.443997.3.57 9.2.196 1964 Unknown [id number] 2.16840.1.664361.3.57 9.2.196 1964 Unknown [id number] 2.16840.1.674074.3.57 9.2.1259 1964 Unknown [id number] 2.840.1.684847.3.57 9.2.1259 1964 Unknown [id number] 2.16840.1.160410.3.57 9.2.1259 1964 Unknown [id number] 2.16840.1.282640.3.57 9.2.1259 1964 Unknown [id number] 2.16.840.1.748204.3.57 9.2.1259 1964 Unknown [id number] 2.16840.1.854697.3.57 9.2.1259 1959 Private Health Insurance [id number] Unknown [place] BC/BS [id number] Unknown [id number] 2.16.840.1.220994.3.57 9.2.531 Unknown [id number] 2.16.840.1.789589.3.57 9.2.531 Unknown [id number] 2.16.840.1.143285.3.57 9.2.531 Unknown [id number] 2.16.840.1.159551.3.57 9.2.531 Social History Date Type Detail Facility Start: 01-15-2021 End: 12-26-2024 Tobacco smoking status Ex-smoker (finding) [facility] Tobacco smoking status Never [facility] Sex Assigned At Male [facility] Start: 12-26-2024 End: 01-30-2025 Sex Male (finding) [facility] Start: 1965 Sex Assigned At Male [facility] Tobacco smoking status NHIS Tobacco smoking consumption unknown [facility] Start: 1965 Sex assigned at Not on file [facility] Functional Status Date Assessment Result Facility 10-29-2024 Functional Status N/A [facility] [place] 09-10-2024 Functional Status N/A [facility] 06-11-2024 Functional Status N/A [facility] 06-06-2023 Functional Status N/A [facility] 06-17-2022 Functional Status N/A [facility] 06-10-2022 Functional Status N/A [facility] Clinical Notes 01-21-2022 to 03-18-2025 Note Date & Type Note Facility 03-18-2025 Radiology Diagnostic study note [facility] [place] [address] [place] [address] CT Scan Report Signed Patient: Liz Hernandez MR#: [id number] : 1965 Acct:[id number] Age/Sex: 59 / M ADM Date: 5 Loc: [facility]: Colleen Aquino APRN Copies to: [...] with vacuum disc phenomenon L5-S1 and L2-L3. Exmr-ag-crhxncxw intervertebral space narrowing with mediastinal L3-L5. Multilevel moderate severe facet arthropathy greatest L4-S1. No fracture malalignment multilevel central canal and foraminal encroachment is better evaluated on recent MRI. CT/CT lumbar spine wo con IMPRESSION: Moderate severe multilevel degenerative changes. Negative acute fracture or malalignment Impression dictated by: Christopher Mendes M.D. 03/18/2025 9:20 AM Dictation Location: [place] [address] Transcribed By: [facility] 03/18/25919 Dictated By: Christopher Mendes MD 03/18/2516 Signed By: 03/18/25919 [facility] Work Phone: 01-30-2025 Evaluation note Diagnosis [...] 8:35am Severe back pain acute March 9:02am [facility] Work Phone: 1(940) 767-617205-29-2025 Evaluation note* Diagnosis Onset Date Resolution Status [...] lumbar radiculopathy acute April 23, 2025 10:24am [facility] Work Phone: 1(517) 995-340105-06-2025 History of Present illness Narrative* Michael Ram, [...] due to back and Left LE. 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 Nursing Home Goals: To be met in 10 weeks [...] Please sign below. Date: documented in [facility] [id number] History of Present illness Narrative* Michael Ram, [...] due to back and Left LE. 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 Nursing Home Goals: To be met in 10 weeks [...] Please sign below. Date: documented in this [facility]04-24-2025 Evaluation note* Diagnosis Onset Date Resolution Status Admit Date Left lumbar radiculopathy acute December 26, 2024 8:28am Numbness and tingling of foot acute December 26, 2024 8:28am [facility] Work Phone: 1(925) 689-186704-24-2025 Evaluation note* Diagnosis Onset Date Resolution Status Admit Date Left lumbar radiculopathy acute December 26, 2024 8:28am Numbness and tingling of foot acute December 26, 2024 8:28am Left lumbar radiculopathy acute January 30, 2025 10:28am Neurogenic claudication acute M ay 2024 10:28am Numbness and tingling of foot acute January 30, 2025 10:28am [facility] Work Phone: 1(475) 491-378704-24-2025 Evaluation note* Diagnosis Onset Date Resolution Status [...] of foot acute March 04, 2025 8:35am [facility] Work Phone: 1(817) 275-753802-25-2025 NoteGeneral Surgery Office/Clinic Note Chief Complaint consultation [...] tab(s), Oral, Alexus (more content not included)... [facility]Result Comment: Electronically Signed By: JARET CANTOR, Michele Campbell\Date and Time Signed: 10/29/24 08:56 EST 09-10-2024 Hospital Discharge instructions Patient Education 09/10/2024 09:53:34 Kidney Stones, Sgqo-gs-Yqkm Kidney Stones Kidney stones are rock-like masses [...] Follow these instructions at home: Medicines Take wazx-hsl-lqbcuxx and prescription medicines only as told by [...] provider. Document Revised: 04/14/2023 Document Reviewed: 04/14/2023 [employer] Patient Education 2023 [employer]. Follow Up Care 08/15/2024 10:52:33 With:GIOVANA CANTOR, Porsche Kwan, URL Address: [facility] [address] [place] [id number]- When: Unknown [facility] [id number] NotePatient Education Urology Kidney Stones Kidney stones [...] these instructions at home: Medicines ??? Take zrjn-phf-zgwqtbf and prescription medicines only as told by [...] provider. Document Revised: 04/14/2023 Document Reviewed: 04/14/2023 [employer] Patient Education ? 2023 [employer].[facility] 06-11-[facility] Hospital Discharge instructions Patient Education [...] you may eat and drink normally. Take vnln-oeu-lwskyeh and prescription medicines only as told by your health care provider. Let your health care provider know about any medicines that you are taking, including pobc-aox-vzrgtfs medicines, vitamins, herbs, and supplements. Choose a [...] provider. Document Revised: 02/25/2022 Document Reviewed: 02/25/2022 [employer] Patient Education 2023 [employer]. 06/11/2024 08:23:10 Dietary Guidelines to Help Prevent [...] include: ?8 oz (237 mL) of milk, dqqhrkp-hktmteccgrny-yypij milk, and calcium- fortifiedfruit juice. Calcium-fortified means [...] ?Spinach (cooked), rhubarb, beets, sweet potatoes, and Cambodian chard. ?Peanuts. ?Potato chips, albanian fries, and baked potatoes with skin on. ?Nuts and nut products. ?Chocolate. If you regularly take a diuretic medicine, make sure to eat at least 1 or 2 servings of fruits or vegetables that are high in potassium each day. These include: ?Avocado. ?Banana. ?K[place], prune, carrot, or tomato juice. ?Baked potato. [...] magnesium, fish oil, or vitamin B6. Take xorg-upe-dzawiwr and prescription medicines only as told by [...] Casseroles. Pizza. Lasagna. Frozen meals. Potato chips. Namibian fries. The items listed above may not [...] provider. Document Revised: 12/01/2022 Document Reviewed: 12/01/2022 [employer] Patient Education 2023 [employer]. Follow Up Care 06/06/2023 09:30:15 With:GIOVANA CANTOR, Porsche Kwan, URL Address: [facility] [place] [id number]- When: Unknown [facility] [id number] NotePatient Education Nephrology Dietary Guidelines to Help [...] ? 8 oz (237 mL) of milk, zwegwoo-kgorzxpusyog-lkovc milk, and calcium- fortifiedfruit juice. Calcium-fortified means [...] Spinach (cooked), rhubarb, beets, sweet potatoes, and Cambodian chard. ? Peanuts. ? Potato chips, albanian fries, and baked potatoes with skin on. ? Nuts and nut products. ? Chocolate. ? If you regularly take a diuretic medicine, make sure to eat at least 1 or 2 servings of fruits orvegetables that are high in potassium each day. These include: ? Avocado. ? Banana. ? Kosciusko, prune, carrot, or tomato juice. ? Baked [...] fish oil, or vitamin B6. ? Take sjds-act-ikidogs and prescription medicines only as told by your health care provider. Theseinclude suppleme (more content not included)...[facility] Hospital Discharge instructions Patient Education 06/06/2023 [...] include: ?8 oz (237 mL) of milk, iqrcdng-nmhagvfwdccb-exjdo milk, and calcium- fortifiedfruit juice. Calcium-fortified means [...] ?Spinach (cooked), rhubarb, beets, sweet potatoes, and Cambodian chard. ?Peanuts. ?Potato chips, albanian fries, and baked potatoes with skin on. ?Nuts and nut products. ?Chocolate. If you regularly take a diuretic medicine, make sure to eat at least 1 or 2 servings of fruits or vegetables that are high in potassium each day. These include: ?Avocado. ?Banana. ?Kosciusko, prune, carrot, or tomato juice. ?Baked potato. [...] magnesium, fish oil, or vitamin B6. Take xpco-qyq-dlpyybi and prescription medicines only as told by [...] Casseroles. Pizza. Lasagna. Frozen meals. Potato chips. Namibian fries. The items listed above may not [...] provider. Document Revised: 05/02/2022 Document Reviewed: 05/02/2022 [employer] Patient Education 2022 [employer]. Follow Up Care 01/21/2022 09:03:45 With:GIOVANA CANTOR, Porsche Kwan, URL Address: [facility] [address] [place], [place] [id number]- When:Within 1 Year(s) Comments:Oksana [facility] [id number] Hospital Discharge instructions Patient Education 06/17/2022 09:35:20 [...] include: ?Spinach. ?Rhubarb. ?Beets. ?Potato chips and albanian fries. ?Nuts. If you regularly take a diuretic medicine, make sure to eat at least 1 2 fruits or vegetables high in potassium each day. These include: ?Avocado. ?Banana. ?Kosciusko, prune, carrot, or tomato juice. ?Baked potato. [...] Casseroles. Pizza. Lasagna. Frozen meals. Potato chips. Namibian fries. Summary You can reduce your risk [...] 12/16/2011 Document Revised: 12/11/2019 Document Reviewed: 08/01/2017 [employer] Patient Education 2020 [employer] Follow Up Care 06/10/2022 10:24:22 With:GIOVANA CANTOR, Porsche Kwan, URL Address: [address] [address]- When:6 months Comments:w/ [place] [facility] 10-07-2022 Hospital Discharge instructions Patient Education 06/10/2022 [...] include: ?Spinach. ?Rhubarb. ?Beets. ?Potato chips and albanian fries. ?Nuts. If you regularly take a diuretic medicine, make sure to eat at least 1 2 fruits or vegetables high in potassium each day. These include: ?Avocado. ?Banana. ?Kosciusko, prune, carrot, or tomato juice. ?Baked potato. [...] Casseroles. Pizza. Lasagna. Frozen meals. Potato chips. Namibian fries. Summary You can reduce your risk [...] 12/16/2011 Document Revised: 12/11/2019 Document Reviewed: 08/01/2017 [employer] Patient Education 2019 [employer]. Follow Up Care 05/30/2022 09:25:01 With:GIOVANA CANTOR, Porsche Kwan, URL Address: [address] [place] [address]- When:2 weeks Comments:KUB [facility] [phone] Hospital Discharge instructions Patient Education 01/21/2022 08:33:55 [...] urethra. Follow these instructions at home: Take bnxe-tnb-gdsikyv and prescription medicines only as told by [...] 08/21/2006 Document Revised: 07/16/2019 Document Reviewed: 09/25/2017 [employer] Patient Education [employer]. Follow Up Care 01/15/2021 08:45:48 With:Porsche AKHTAR MD, URL Address: [facility] [address] [place] [address]- When:01/21/2023 Comments:with PSA and x-ray [facility] Evaluation + Plan note Future Appointments Appointment Date:02/24/2023 08:00:00 AM Scheduled Provider:Porsche AKHTAR MD Location:[facility] Appointment Type:URO Office Visit [facility] Evaluation + Plan note Future Appointments Appointment Date:02/24/2023 08:00:00 AM Scheduled Provider:Porsche AKHTAR MD Location:[facility] Appointment Type:URO Office Visit Future Scheduled Tests Laboratory* PT & PTT 04/20/22 * BUN 04/20/22 * Creatinine 04/20/22 * Electrolyte Panel 04/20/22 * CBC w/ Auto Diff [facility]20[facility]ments Appointment Date:06/17/2022 09:15:00 AM Scheduled Provider:Porsche AKHTAR MD Location[facility] Appointment Type:URO Office Visit Appointment Date:02/24/2023 08:00:00 AM Scheduled Provider:Porsche AKHTAR MD Location:[facility] Appointment Type:URO Office Visit [facility] evaluation + Plan note Future Appointments Appointment Date:06/11/2024 08:00:00 AM Scheduled Provider:Porsche AKHTAR MD Location:[facility] Appointment Type:URO Office Visit [facility] evaluation + Plan note Future Appointments Appointment Date:06/10/2025 08:00:00 AM Scheduled Provider:Porsche AKHTAR MD [facility] Appointment Type:URO Office Visit [facility] evaluation noteNo assessment information available [facility] Work Phone: evaluation note* Diagnosis Lumbar [...] available for this section [facility] Hospital Discharge instructions No data available for this section [facility] instructionsAmbulatory Orders* Referral to PT / OT / Speech (PT/OT/SP) Location: None [facility] Work Phone: Hospital Discharge instructionsAmbulatory Orders* Referral to Weight Management Location: None [facility] Work Phone: Progress note No data available for this section [facility] (narrative)No reason for referral information availableThe [facility] Work Phone: Reason for visit Narrative* Rehabilitation - Outpatient (Routine) - Pending Review Specialty Diagnoses / Procedures Referred By Cindy cyr Referred To Contact Physical Therapy Diagnoses Low back pain, unspecified Procedures [place] PHYSICAL THERAPY EVALUATION LOW COMPLEX 20 MINS [place] OFFICE/OUTPATIENT NEW HIGH MDM 60 MINUTES Colleen Aquino MD [address] [address] Phone: tel: fax: Michael Ram, PT [address] [address] Phone: tel: fax: Referral ID Status Reason Start Date Expiration Date V isits Requested Visits Authorized [id number] Pending Review 01/01/2025 06/30/2025 2 2 [facility] HealthcareReason for visit Narrative* Rehabilitation - Outpatient (Routine) - Authorized Specialty Diagnoses / Procedures Referred By Cindy cyr Referred To Contact Physical Therapy Diagnoses Low back pain, unspecified Procedures [place] PHYSICAL THERAPY EVALUATION LOW COMPLEX 20 MINS [place] OFFICE/OUTPATIENT NEW HIGH MDM 60 MINUTES Colleen Aquino MD [address] [place] [address] Phone: tel: fax: Michael Ram, PT [address] [address] Phone: tel: fax: Referral ID Status Reason Start Date Expiration Date V isits Requested Visits Authorized [id number] Authorized 01/01/2025 03/03/2025 8 8 [facility] N[facility]ative* Rehabilitation - Outpatient (Routine) - Closed Specialty Diagnoses / Procedures Referred By Cindy cyr Referred To Contact Physical Therapy Diagnoses Low back pain, unspecified Procedures [place] PHYSICAL THERAPY EVALUATION LOW COMPLEX 20 MINS [place] OFFICE/OUTPATIENT NEW HIGH MDM 60 MINUTES Colleen Aquino MD 703 [facility] [address] [place] [address] Phone: tel: fax: Michael Ram, PT 112 [facility] [address] [place] [address] Phone: tel: fax: Referral ID Status Reason Start Date Expiration Date Visits Re quested Visits Authorized [id number] Closed 01/01/2025 03/03/2025 8 8 [facility] [...] December 26, 2024 End: December 26, 2024 Buyer Intern Relationship Specialty Start Date End Date Asim Fernandez MD [address] [facility] [address] PCP - General Family Medicine 01/17/25 Buyer Intern Relationship Specialty Start Date End Date Asim Fernandez MD [address] [facility] [address] PCP - General Family Medicine 01/17/25 Buyer Intern Relationship Specialty Start Date End Date Asim Fernandez MD [address] [facility] [address] PCP - General Family Medicine 01/17/25 Team [...] content) DATE CREATED AUTHOR [facility]/07/2022 [facility] DATE CREATED AUTHOR AUTHOR'S ORGANIZ ATION 10/30/2024 [facility] DATE CREATED AUTHOR AUTHOR'S ORGANIZ ATION 12/15/2024 [facility] DATE CREATED AUTHOR AUTHOR'S ORGANIZ ATION 01/22/2025 [facility] DATE CREATED AUTHOR AUTHOR'S ORGANIZ ATION 04/26/2025 [facility] Goals (unrecognized section and content) [...] BE BASED ON THE PRIMARY CLINICAL RECORDS. [facility] Center[facility]. provides no warranty or guarantee of the accuracy or completeness of information in this document.
[2025-05-08 13:32] LABS: Hematocrit 44.3 % (42.0-54.0); Hemoglobin 14.9 g/dL (14.0-18.0); Mean Corpuscular HGB Conc 33.6 g/dL (29.9-35.2); Mean Corpuscular Hemoglobin 30.3 pg (25.9-34.0); Mean Corpuscular Volume 90.0 fL (80.0-94.0); Platelet Count 207 10^3/uL (150-450); Red Blood Count 4.92 10^6/uL (4.70-6.10); White Blood Count 6.8 10^3/uL (4.0-11.0)
--- NOTE | 2025-05-08 13:38 | CT_ITS ---
[facility] [place] [id number] Patient Name: LIZ SHELBY MRN: [id number] date: 1965 Sex: M Assigned Patient Location: ER Current Patient Location: Accession/Order Number: [id number] Exam Date: 05/08/2025 13:34 Report Date: 05/08/2025 14:24 At the request of: JR SOMMERS DO Procedure: CT head/brain wo con CT head/brain wo con 05/08/2025 1:35 PM SIGNS AND SYMPTOMS: ^AMS TECHNIQUE:Multi-detector CT axial slices of the brain were obtained without IV contrast. CT was performed with one or more of the following dose reduction techniques: Automated exposure control, adjustment of the mA and/or kV according to patient size, or use of iterative reconstruction technique. COMPARISON: None. FINDINGS: There is no shift of the midline structures, acute intracranial bleeding, mass effects, or evidence of acute ischemia. There is age-related cortical atrophy. The ventricular system is normal in size. The brainstem and the cerebellum are unremarkable. The visualized intraorbital contents, the visualized paranasal sinuses, and the infratemporal soft tissues show no acute abnormality. The osseous structures in the skull base and the calvarium show no abnormality. CT/CT head/brain wo con IMPRESSION: No acute intracranial pathology. Chronic age-related neurodegenerative changes are redemonstrated as above. Impression dictated by: Liz Figueroa M.D. 05/08/2025 2:24 PM Dictation Location: [place] [address] Electronically authenticated by: [id number] Y Date: 05/08/2025 14:24
[2025-05-08 13:48] LABS: Alanine Aminotransferase 103 U/L (16-63); Albumin Globulin Ratio 1.0; Albumin Level 3.6 g/dL (3.4-5.0); Alkaline Phosphatase 79 U/L (46-116); Anion Gap 12.4; Aspartate Amino Transferase 51 U/L (15-37); Blood Urea Nitrogen 13.0 mg/dL (7.0-18.0); Calcium 8.4 mg/dL (8.5-10.1); Carbon Dioxide 28.5 mmol/L (21.0-32.0); Chloride 104 mmol/L (98-107); Estimated GFR (African America >60 (>=60 mL/min/1.73m^2); Estimated GFR (Non-African Ame >60 (>=60 mL/min/1.73m^2); Globulin 3.6 g/dL; Glucose 154 mg/dL (74-106); Magnesium 1.8 mg/dL (1.8-2.4); Potassium 3.9 mmol/L (3.5-5.1); Sodium 141 mmol/L (136-145); Total Protein 7.2 g/dL (6.4-8.2)
[2025-05-08 13:57] LABS: Band Neutrophils Absolute 0.2 10^3/uL (0.0-0.3); Basophils Abs Manual 0.00 10^3/uL (0.00-0.10); Basophils Percent Manual 0.0 % (0.2-2.0); Eosinophils Absolute Manual 0.06 10^3/uL (0.00-0.70); Eosinophils Percent Manual 1.0 % (0.9-7.0); Lymphocytes Absolute Manual 1.63 10^3/uL (1.20-3.80); Lymphocytes Percent Manual 24.0 % (20.5-60.0); Monocytes Absolute Manual 0.54 10^3/uL (0.30-0.80); Monocytes Percent Manual 8.0 % (1.7-12.0); Segmented Neut Absolute Manual 4.35 10^3/uL (1.4-6.5); Segmented Neutrophils % Manual 64.0 (43.0-75.0)
[2025-05-08 14:12] LABS: INR 1.00; Partial Thromboplastin Time 29.5 sec (22.3-36.2); Prothrombin Time 10.6 sec (9.0-11.6)
[2025-05-08 14:14] LABS: Fibrinogen 308 mg/dL (200-400)
[2025-05-08 14:52] LABS: Glucose Urine UA NEGATIVE (NEGATIVE)
--- NOTE | 2025-05-08 14:56 | PC.NURSE ---
pt recently started adipex a few weeks ago - has been feeling off last few days. Got some bloodwork done today by Dr Fernandez. called him to come to ER for elevated liver enzymes
[2025-05-08 15:06] LABS: Cast Seen? NONE SEEN #/LPF (NONE SEEN); Crystals Seen? None Seen #/HPF (None Seen); Urine Culture Indicated NO
--- NOTE | 2025-05-08 17:47 | ED.GENADUL1 ---
HPI HPI - General Adult General Chief complaint: Recheck/Abnormal Lab/Rx Stated complaint: ABNORMAL LABS SENT BY DR FERNANDEZ Time Seen by Provider: 05/08/25 12:43 Source: patient Mode of arrival: walk-in History of Present Illness HPI narrative: Patient is a 59-year-old male presenting to the emergency department at the request of his PCP for concerns of altered mental status and petechiae. According to the primary care physician, the patient had outpatient labs 2 days ago. It only showed a mild transaminitis without any other acute findings. However, the PCP spoke with the patient again today, and stated that he noted the rash/petechiae on his feet today. Additionally, the patient does feel more fatigued since his visit 2 days ago. The patient himself states that over the last 2 weeks he has felt overall fatigued and not like himself. He states he has brain fog and has a hard time processing his thoughts. His notes that he has been more tearful lately. He also noticed some puffiness around the eyes for the last few days. Additionally, they note this petechial rash on his bilateral toes starting today. Otherwise, the patient is asymptomatic without any other systemic symptoms. He denies headache, visual changes, chest pain, shortness of breath, fevers, chills, abdominal pain, nausea, vomiting, dysuria, constipation, or diarrhea. Denies any other neurologic complaint such as weakness, paresthesias, or gait imbalance. No recent travel outside of the country. He did recently start Mounjaro and Adipex 2 weeks ago, right around the time of his symptom onset. Related Data Home Medications ?Medication ?Instructions ?Recorded ?Confirmed aspirin 81 mg capsule 81 mg PO DAILY 12/15/23 12/09/24 carvedilol 25 mg tablet (Coreg) 37.5 mg PO Q12H 12/15/23 12/09/24 glimepiride 2 mg tablet 2 mg PO DAILY 12/15/23 12/09/24 hydralazine 50 mg tablet 50 mg PO TID 12/15/23 12/09/24 hydrochlorothiazide 50 mg tablet 50 mg PO DAILY 12/15/23 12/09/24 levothyroxine 125 mcg capsule 125 mcg PO DAILY 12/15/23 12/09/24 metformin 500 mg tablet 500 mg PO BID 12/15/23 12/09/24 multivitamin 1 tab PO DAILY 12/15/23 12/09/24 olmesartan 40 mg tablet 40 mg PO DAILY 12/15/23 12/09/24 pravastatin 20 mg tablet 20 mg PO DAILY 12/15/23 12/09/24 tramadol 50 mg tablet 50 mg PO QID PRN pain 12/15/23 12/09/24 methocarbamol 500 mg tablet 500 mg PO BID 12/18/24 12/18/24 Allergies Allergy/AdvReac Type Severity Reaction Status Date / Time acetaminophen (From Vicodin) Allergy Severe Hallucinati Verified 05/08/25 12:52 ng hydrocodone (From Vicodin) Allergy Severe Hallucinati Verified 05/08/25 12:52 ng Opioid HPI Opioid Management Most Recent Opioid Data: Last Pain Scale 7 12/09/24, 09:57 Review of Systems ROS Status of ROS 10 or more systems reviewed and unremarkable except as noted in history and below [facility] Medical History Surgical procedures, elective ?Z41.9 - Encounter for procedure for purposes other than remedying health state, unspecified (ICD-10) Neuropathy ?G62.9 - Polyneuropathy, unspecified (ICD-10) Normal colonoscopy Renal lithiasis ?N20.0 - Calculus of kidney (ICD-10) HTN (hypertension) ?I10 - Essential (primary) hypertension (ICD-10) Hypothyroidism ?E03.9 - Hypothyroidism, unspecified (ICD-10) Diabetes ?E11.9 - Type 2 diabetes mellitus without complications (ICD-10) Traumatic brain injury ?S06.9XAA - Unspecified intracranial injury with loss of consciousness status unknown, initial encounter (ICD-10) MARGE (obstructive sleep apnea) ?G47.33 - Obstructive sleep apnea (adult) (pediatric) (ICD-10) COPD (chronic obstructive pulmonary disease) ?J44.9 - Chronic obstructive pulmonary disease, unspecified (ICD-10) 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 - Acute embolism and thrombosis of superior vena cava (ICD-10) Herniated lumbar intervertebral disc ?M51.26 - Other intervertebral disc displacement, lumbar region (ICD-10) Surgical History Pain management ?R52 - Pain, unspecified (ICD-10) History of cholecystectomy ?Z90.49 - Acquired absence of other specified parts of digestive tract (ICD-10) History of tonsillectomy ?Z90.89 - Acquired absence of other organs (ICD-10) Hx of lithotripsy ?Z98.890 - Other specified postprocedural states (ICD-10) Hx of lumbar discectomy ?Z98.890 - Other specified postprocedural states (ICD-10) Social History Little interest or pleasure in doing things: not at all Feeling down, depressed, or hopeless: not at all Exam Narrative Exam Narrative: CONSTITUTIONAL: Nontoxic-appearing, mentating appropriately, oriented x 3, tearful and somewhat anxious, answering questions and following commands appropriately SKIN: There is a mild petechial rash involving the bilateral toes. Otherwise, skin was warm and dry. EYES: Subtle bilateral periorbital edema. No scleral icterus or conjunctival pallor EARS, NOSE, THROAT: Moist oral mucosa. No intraoral lesions or ulcerations. RESPIRATORY: Clear to auscultation bilaterally, no wheezes, crackles, or stridor, no use of accessory muscles CARDIOVASCULAR: Normal rate and regular rhythm. There is no S3, S4, murmur, rub. Radial pulses are 2+ and symmetrical. GASTROINTESTINAL: Abdomen was soft, non-tender, and non-distended. There is no guarding or rebound tenderness MUSCULOSKELETAL: There was no lower extremity edema, erythema, or tenderness. NEUROLOGIC: Patient is awake and alert. Equal strength in all extremities. Sensation intact to light touch in the bilateral upper/lower extremities. Ambulates with a steady gait. Able to spell his name backwards. Able to do serial sevens. Facies were symmetrical. Constitutional Vital Signs, click to edit/add: Last Vital Signs Temp 98.7 F 05/08/25 12:46 Pulse 70 05/08/25 12:46 Resp 18 05/08/25 12:46 BP 165/88 H 05/08/25 12:46 Pulse Ox 96 05/08/25 12:46 O2 Del Method Room Air 05/08/25 12:46 Course Vital Signs Vital signs: Vital Signs Temperature 98.7 F 05/08/25 12:46 Pulse Rate 70 05/08/25 12:46 Respiratory Rate 18 05/08/25 12:46 Blood Pressure 165/88 H 05/08/25 12:46 Pulse Oximetry 96 05/08/25 12:46 Oxygen Delivery Method Room Air 05/08/25 12:46 Temperature 98.7 F 05/08/25 12:46 Pulse Rate 70 05/08/25 12:46 Respiratory Rate 18 05/08/25 12:46 Blood Pressure 165/88 H 05/08/25 12:46 Pulse Oximetry 96 05/08/25 12:46 Oxygen Delivery Method Room Air 05/08/25 12:46 Medical Decision Making MDM Narrative Medical decision making narrative: Patient is a 59-year-old male presenting to the emergency department with a 2-week history of generalized fatigue, malaise, brain fog, and a new onset petechial rash on his toes starting today. Of note, patient recently started Mounjaro and Adipex 2 weeks ago around the time of symptom onset. Examination as noted above. He has no focal neurologic deficits. The petechial rash only involves the toes. He is otherwise well-appearing and mentating appropriately. On review of external documentation, patient had outpatient laboratory studies drawn 2 days ago that were only significant for mild transaminitis without any other acute findings. Possible differential diagnosis for non-specific cognitive changes and petechial rash include, but is not limited to, ITP, TTP, intracranial neoplasm, drug side effect, vasculitis, hemolytic anemia, nephrotic syndrome. The patient is nontoxic without signs or symptoms of severe infection, making etiologies for DIC of low likelihood. IV was established and laboratory studies were obtained. CT head was ordered. Laboratory studies were overall unremarkable and unchanged from 2 days ago. Mild transaminitis without hyperbilirubinemia no leukocytosis, anemia, or thrombocytopenia. Normal coagulation profile. Only mild elevation in the D-dimer. LDH normal. No evidence of acute renal injury. Fibrinogen normal. Urinalysis was unremarkable without evidence of proteinuria. CT head independently reviewed/interpreted by myself and demonstrated no acute intracranial pathology or hemorrhage. Unclear as to the exact etiology behind the patient's symptoms, however I do not believe there is an acute, emergent pathology that would require inpatient hospitalization. I do believe he is appropriate for outpatient follow-up and continued workup. I discussed the findings with his PCP, Dr. Fernandez, who agreed with this plan. I do believe the patient is stable for discharge at this time. They were instructed to follow up with his PCP for further diagnostic testing. Return precautions were given including any new or worsening symptoms. Patient understands and agrees to the plan. FINAL IMPRESSION: #Acute malaise and non-specific cognitive changes #Acute petechial rash of the bilateral feet DISPOSITION: Discharged home CONDITION: Fair Medical Records Medical records reviewed: Yes I reviewed the patient's medical records Lab Data Lab results reviewed: Yes I reviewed the patient's lab results Labs: Lab Results 05/08/25 05/08/25 Range/Units 13:25 14:45 WBC 6.8 (4.0-11.0) 10^3/uL RBC 4.92 (4.70-6.10) 10^6/uL Hgb 14.9 (14.0-18.0) g/dL Hct 44.3 (42.0-54.0) % MCV 90.0 (80.0-94.0) fL MCH 30.3 (25.9-34.0) pg MCHC 33.6 (29.9-35.2) g/dL RDW 13.0 (11.0-15.0) % Plt Count 207 (150-450) 10^3/uL MPV 9.8 (9.5-13.5) fL Seg Neuts % (Manual) 64.0 (43.0-75.0) Band Neutrophils % 3.0 (0-5) % Lymphocytes % (Manual) 24.0 (20.5-60.0) % Monocytes % (Manual) 8.0 (1.7-12.0) % Eosinophils % (Manual) 1.0 (0.9-7.0) % Basophils % (Manual) 0.0 L (0.2-2.0) % Neutrophils # (Manual) 4.35 (1.4-6.5) 10^3/uL Band Neutrophils # 0.2 (0.0-0.3) 10^3/uL Lymphocytes # (Manual) 1.63 (1.20-3.80) 10^3/uL Monocytes # (Manual) 0.54 (0.30-0.80) 10^3/uL Eosinophils # (Manual) 0.06 (0.00-0.70) 10^3/uL Basophils # (Manual) 0.00 (0.00-0.10) 10^3/uL PT 10.6 (9.0-11.6) sec INR 1.00 APTT 29.5 (22.3-36.2) sec Fibrinogen 308 (200-400) mg/dL D-Dimer 0.64 H* (<=0.59) mg/L FEU Sodium 141 (136-145) mmol/L Potassium 3.9 (3.5-5.1) mmol/L Chloride 104 (98-107) mmol/L Carbon Dioxide 28.5 (21.0-32.0) mmol/L Anion Gap 12.4 BUN 13.0 (7.0-18.0) mg/dL Creatinine 0.89 (0.70-1.30) mg/dL Est GFR ( Amer) >60 (>=60 mL/min/1.73m^2) Est GFR (Non-Af Amer) >60 (>=60 mL/min/1.73m^2) BUN/Creatinine Ratio 14.6 Glucose 154 H (74-106) mg/dL Calcium 8.4 L (8.5-10.1) mg/dL Magnesium 1.8 (1.8-2.4) mg/dL Total Bilirubin 0.6 (0.2-1.0) mg/dL AST 51 H (15-37) U/L ALT 103 H (16-63) U/L Alkaline Phosphatase 79 (46-116) U/L Lactate Dehydrogenase 190 (85-227) U/L Total Protein 7.2 (6.4-8.2) g/dL Albumin 3.6 (3.4-5.0) g/dL Globulin 3.6 g/dL Albumin/Globulin Ratio 1.0 Urine Color Lt. yellow (YELLOW) Urine Clarity Clear (CLEAR) Urine pH 6.0 (5.0-9.0) Ur Specific [place] 1.010 (1.005-1.025) Urine Protein Negative (NEG/TRACE) mg/dL Urine Glucose (UA) Negative (NEGATIVE) mg/dL Urine Ketones Negative (NEGATIVE) mg/dL Urine Occult Blood Negative (NEGATIVE) Urine Nitrite Negative (NEGATIVE) Urine Bilirubin Negative (NEGATIVE) Urine Urobilinogen 0.2 (0.2-1.0) EU/dL Ur Leukocyte Esterase Negative (NEGATIVE) Urine RBC 0-2 (0-2) #/HPF Urine WBC None seen (NONE SEEN) #/HPF Ur Squamous Epith Cells Rare (NONE/RARE) #/LPF Urine Crystals None seen (None Seen) #/HPF Urine Bacteria Trace A (NONE SEEN) #/HPF Urine Casts None seen (NONE SEEN) #/LPF Urine Mucus None seen (NONE SEEN) Ur Culture Indicated? No Imaging Data CT scan - head: Attestation: I personally reviewed and interpreted this imaging study as follows: Radiologist's impression: ITS Impressions Head CT 05/08/25 13:38 IMPRESSION: No acute intracranial pathology. Chronic age-related neurodegenerative changes are redemonstrated as above. Impression dictated by: Elvis Figueroa M.D. 05/08/2025 2:24 PM Dictation Location: [place] [address] Electronically authenticated by: [id number] Y Date: 05/08/2025 14:24 Discharge Plan Discharge Chief Complaint: Recheck/Abnormal Lab/Rx Clinical Impression: Malaise and fatigue, Petechial rash Patient Disposition: Home, Self-Care Time of Disposition Decision: 14:57 Condition: Fair Mode of Transportation: Private Vehicle Prescriptions / Home Meds: No Action aspirin 81 mg capsule 81 mg PO DAILY carvedilol [Coreg] 25 mg tablet 37.5 mg PO Q12H Rx Instructions: must administer with a meal/food glimepiride 2 mg tablet 2 mg PO DAILY hydralazine 50 mg tablet 50 mg PO TID hydrochlorothiazide 50 mg tablet 50 mg PO DAILY levothyroxine 125 mcg capsule 125 mcg PO DAILY metformin 500 mg tablet 500 mg PO BID multivitamin Tablet 1 tab PO DAILY olmesartan 40 mg tablet 40 mg PO DAILY pravastatin 20 mg tablet 20 mg PO DAILY tramadol 50 mg tablet 50 mg PO QID PRN (Reason: pain) methocarbamol 500 mg tablet 500 mg PO BID Rx Instructions: 1-2 TABS BID NEEDED Print Language: Telugu Instructions: Fatigue (ED) Referrals: Asim Fernandez MD [Primary Care Provider, Family Practice] - 1 week Discharge Date/Time: 05/08/25 15:08
== END 2025-05-08 15:08 | disposition home or self-care (01) ==
PROVIDERS: Emergency Provider Student in an Organized Health Care Education/Training Program; PCP Family Medicine
DX: R23.3 Spontaneous ecchymoses (principal); R53.81 Other malaise; R41.82 Altered mental status, unspecified; R53.83 Other fatigue; E11.9 Type 2 diabetes mellitus without complications; R94.5 Abnormal results of liver function studies
CPT/HCPCS: 36415; 70450; 80053; 80074; 80076; 81001; 82140; 83010; 83615; 83735; 85007; 85027; 85378; 85384; 85610; 85730; 86308; 86664; 86665; 99285

== ENCOUNTER 2025-05-14 10:08 | Outpatient (OUT) | payer BC, SELFPAY ==
--- OUTSIDE RECORDS SUMMARY | 2025-05-14 10:14 | XMS_ITS | CCD ---
Author Organization [facility] CliniSyoh Care Team Providers Care Manager New Product Name Role Phone Asim Fernandez Primary Care [...] Asim Fernandez MD Primary Care Provider Turovskaya END LATHE OPERATOR, Colleen Attending Provider Unavailable Primary Care Provider [facility] Asim Fernandez MD Primary Care Provider [...] Nithin CANTOR, Williams Amaral Attending Provider 1( [phone] Turovskaya, Colleen Admitting Unavailable Turovskaya, Colleen Attending [...] Allergy Hyperactive behavior (finding) [facility] [place] Medications Current Medications Medication Drug Class(es) Dates [...] 30 cap(s), Refills(s) 2, Pharmacy: [id number], 188, cm, 06/10/22 9:57:00 EDT, Height/Length Dosing, [...] Start: 02-19-2019 take 2 tablets by mo [facility] once daily in the morning [...] Other detention (current) drug therapy; Translations: [OTH LONG-TERM CURRENT DRUG THERAPY] Onset: 05-31-20 Episodic Other aftercare (1 source) meterman (current) use of aspirin; Translations: [LONG-TERM CURRENT USE OF ASPIRIN] Onset: 05-31-20 Episodic [...] wo conon CT lumbar spine wo [place] [address] CT Scan Report Signed Patient: Liz Hernandez MR#: [id number] 5 : 1965 Acct:[id number] Age/Sex: 59 / M ADM Date: 03/18/25 Loc: CT Room: Type: [facility] Attending Dr: Colleen Aquino APRN Copies [...] with vacuum disc phenomenon L5-S1 and L2-L3. Mnlb-nf-qihpgosu intervertebral space narrowing with mediastinal L3-L5. Multilevel moderate severe facet arthropathy greatest L4-S1. No fracture malalignment multilevel central canal and foraminal encroachment is better evaluated on recent MRI. CT/CT lumbar spine wo con IMPRESSION: Moderate severe multilevel degenerative changes. Negative acute fracture or malalignment Impression dictated by: Christopher Mendes M.D. 03/18/2025 9:20 AM Dictation Location: [place] [address] Transcribed By: [facility] 03/18/25 0920 Dictated By: Christopher Mendes MD 03/18/25 0916 Signed By: 03/18/25 0920 Normal [facility] MR lumbar spine wo conon MR lumbar spine wo con [facility] [place] [address] [place] [address] MRI Report Signed Patient: Liz Hernandez MR#: [id number] 5 : 1965 Acct:[id number] Age/Sex: 59 / M ADM Date: 02/28/25 Loc: Room: Type: [facility] Attending Dr: Colleen Aquino APRN Copies to: [...] Figueroa M.D. 02/28/2025 10:53 AM Dictation Location: [place] [address] Transcribed By: ARNULFO 02/28/25 1053 Dictated By: Liz Figueroa II, MD 02/28/25 1044 Signed By: 02/28/25 1053 Normal [facility] Magnetic resonance imaging r eportOrdered By: Liz Figueroa on 02-28-2025 Study report [facility] [place] [address] [place] [address] MRI Report Signed Patient: Liz Hernandez MR#: [id number] : 1965 Acct:[id number] Age/Sex: 59 / M ADM Date: 5 Loc: Room: Type: [facility] Attending Dr: Colleen Aquino APRN Copies [...] Figueroa M.D. 02/28/2025 10:53 AM Dictation Location: [place] [address] Transcribed By: ARNULFO 02/28/25 1053 Dictated By: Liz Figueroa II, MD 02/28/25 1044 Signed By: 02/28/25 1053 [facility] Work Phone: X-ray reportOrdered By: Foreign Mcqueen on 12-26-2024 Study report [facility] [address] [address] XRay Report Signed Patient: Liz Hernandez MR#: [id number] : 1965 Acct:[id number] Age/Sex: 59 / M ADM Date: 5 Loc: XD Room: Type: REG CLI Attending Dr: Colleen Aquino END LATHE OPERATOR Copies to: Colleen Aquino APRN~ Ordering Provider: [...] Mcqueen Jr., D.OCullen12/26/2024 2:42 PM Dictation Location: [place] [address] Transcribed By: [facility] 12/26/24 1442 Dictated By: Chi Mcqueen Jr, DO 12/26/24 1441 Signed By: 12/26/24 1442 [facility] XR lumbar spine 6V w bending on 12-26-2024 XR lumbar spine 6V w bending [facility] [address] [address] XRay Report Signed Patient: Liz Hernandez MR#: [id number] 5 : 1965 Acct:[id number] Age/Sex: 59 / M ADM Date: 12/26/24 Loc: XD Room: Type: REG CLI Attending Dr: Colleen Aquino END LATHE OPERATOR Copies to: Colleen Aquino APRN Ordering Provider: Colleen Turovskaya, END LATHE OPERATOR Date of Service: 12/26/24 XR/XR lumbar spine [...] Mcqueen Jr., D.O.12/26/2024 2:42 PM Dictation Location: [place] [address] Transcribed By: [facility] 12/26/24 1442 Dictated By: Chi Mcqueen Jr, DO 12/26/24 1441 Signed By: 12/26/24 1442 Normal [facility] Ambulatory Visit Summaryon 0 10-29-2024 Ambulatory [...] CANTOR, Porsche Kwan Where: [facility] [address] [place] [address]- Medications What How Much When Instructions Unchanged [...] for choosing us for your care. Normal [facility] Reminderson 10-29-2024 Reminders Reminders From: Alexia Vega LPN To: GSN - Clinical; Sent: 10/29/2024 09:31:53 EST Show up: 02/16/2029 07:00:00 EDT Subject: colonoscopy recall Due Date/Time: 03/04/2029 07:00:00 EDT Reminder/Recall Patient is due for screening colonoscopy 03/2029. Normal [facility] Urology Office/Clinic Noteon 09-12-2024 Urology Office/Clinic Note [...] Urnls Dip Stick Auto w/o Microscopy POC 48074 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) Metabolic workup 07/08/2024: [...] Urnls Dip Stick Auto w/o Microscopy POC 17356 Follow-up With When Contact Information GIOVANA CANTOR, Porsche Kwan, URL [address] [place] [id number]- Additional Instructions: Follow up in Jun 2025 w KUB Patient Education Kidney Stones, [id number] Cecilio Alvarez, personally scribed for ELSIE Hawkins [...] Elevated PSA History of procedure Hx of termination clerk use of blood thinners Hyperuricosuria Hypocitraturia Kidney stone Kidney stone Leukocytosis Lumbar radiculopathy Neuropathy Nocturia Obesity Osteoarthritis Osteoarthritis Type 2 diabetes mellitus without complication Historical GERD (gastroesophageal reflux disease) Neoplasm of uncertain behavior of skin Th (more content not included)... Normal [facility] Comment on above: Result Comment: [...] Porsche AKHTAR MD Where: [facility] [address] [place] [address]- You Need to Schedule the Following Appointments Follow Up with Porsche AKHTAR MD, URL When: Where: [address] [address]- Medications What How Much When [...] not included)... Normal [facility] Ambulatory Visit Summaryon 1 Ambulatory Visit [...] Porsche AKHTAR MD Where: [facility] [address] [place] [address]- You Need to Schedule the Following Appointments Follow Up with Porsche AKHTAR MD, ESHA When: Where: [address] [address]- Medications What How Much When [...] 2, noninsulin dependent Elevated PSA Hx of termination clerk use of blood thinners Kidney stone Nocturia [...] drink normally. (more content not included)... Normal [facility] Urology Office/Clinic Noteon 06-11-2024 Urology Office/Clinic Note [...] KUB was read as negative at the [facility] but to my review there may [...] Information GIOVANA CANTOR, Porsche Kwan, URL [address] [place] [address]- Additional Instructions: 1 yr with KUB and [...] with voice recognition artificial intelligence software, specifically [employer], [employer] and or [employer]. Substitutions may have occurred due to the inherent limitations of voice recognition and artificial intelligence software. Problem List/Past Medical History Ongoing BMI 40.0-44.9, adult BPH (benign prostatic hyperplasia) Chronic anticoagulation Dermatofibroma of left upper arm Diabetes mellitus type 2, noninsulin dependent Elevated PSA Hx of detention use of blood thinners Kidney stone Nocturia Osteoarthritis Historical GERD (gastroesophag (more content not included)... Normal [facility] Comment on above: Result Comment: [...] by: MANSOOR LIMA Date: 2022-06-16 18:56 Normal [facility] XR KUB 1 VIEWon 06-09-2022 XR [...] MANSOOR LIMA Date: 2022-06-09 17:41 Normal [facility] CBC AUTO DIFFon 05-29-2022 BASO # 0.1 103/ul Normal 0.0-0.1 [facility] Comment on above: Performed By: #### C BC ####[facility] [address] [place], [place] [address]PeCullen Aldrich Basophils/100 WBC (Bld) 0.2 % Normal 0.2-2.0 [facility] Comment on above: Performed By: #### C BC ####[facility] [address] [place] [id number]. Wyatt Aldrich EO # 0.0 103/ul Normal 0.0-0.7 [facility] Comment on above: Performed By: #### C BC ####[facility] [address] [place] [id number]. Wyatt lAdrich Eosinophils/100 WBC (Bld) 0.2 % Critically low 0.9-7.0 [facility] Comment on above: Performed By: #### C BC ####[facility] [address] [place], [place] [address]Dr. Wyatt Aldrich Erythrocyte distribution width (RBC) [Ratio] 12.3 % Normal 11.0-15.0 [facility] Comment on above: Performed By: #### C BC ####[facility] [address] [place], [place] [address]Dr. Wyatt Aldrich Hematocrit (Bld) [Volume fraction] 45.9 % Normal 42.0-54.0 [facility] Comment on above: Performed By: #### C BC ####[facility] [address] [place] [address]Dr. Wyatt Aldrich Hemoglobin (Bld) [Mass/Vol] 15.2 g/dL Normal 14.0-18.0 [facility] Comment on above: Performed By: #### C BC ####[facility] [address] [place] [address]Dr. Wyatt Aldrich IG # 0.09 10e3/ul Critically high 0.00-0.03 [facility] Comment on above: Performed By: #### C BC ####[facility] [address] [place] [address]Dr. Wyatt Aldrich IG % 0.4 % Normal 0.0-0.5 [facility] Comment on above: Performed By: #### C BC ####[facility] [address] [place], [place] [address]Dr. Wyatt Aldrich LYMPH # 1.1 103/ul Critically low 1.2-3.8 [facility] Comment on above: Performed By: #### C BC ####[facility] [address] [place] [id number]. Wyatt Valdemar Lymphocytes/100 WBC (Bld) 5.1 % Critically low 20.5-60.0 [facility] Comment on above: Performed By: #### C BC ####[facility] [address] [place] [address]Dr. Jossielalo Aldrich MANUAL DIFF REQ NO Normal [facility] Comment on above: Performed By: #### C BC ####[facility] X[address] [place] [address]Dr. Wyatt Valdemar MCH (RBC) [Entitic mass] 30.2 pg Normal 25.9-34.0 [facility] Comment on above: Performed By: #### C BC ####[facility] [address] [place], [place] [address]Dr. Jossielalo Aldrich MCHC (RBC) [Mass/Vol] 33.1 g/dL Normal 29.9-35.2 [facility] Comment on above: Performed By: #### C BC ####[facility] [address] [place], [place] [address]Dr. Wyatt Valdemar MCV (RBC) [Entitic vol] 91.3 fL Normal 80.0-94.0 [facility] Comment on above: Performed By: #### C BC ####[facility] [address] [place], [place] [address]Dr. Wyatt Aldrich MONO # 1.4 103/ul Critically high 0.3-0.8 [facility] Comment on above: Performed By: #### C BC ####[facility] [address] [place], [place] [address]Dr. Jossielalo Aldrich Monocytes/100 WBC (Bld) 6.7 % Normal 1.7-12.0 [facility] Comment on above: Performed By: #### C BC ####[facility] [address] [place], [place] [address]Dr. Wyatt Aldrich NEUT # 18.5 103/ul Critically high 1.4-6.5 [facility] Comment on above: Performed By: #### C BC ####[facility] [address] [place], [place] [address]Wu. Wyatt Aldrich Neutrophils/100 WBC (Bld) 87.4 % Critically high 43.0-75.0 [facility] Comment on above: Performed By: #### C BC ####[facility] [address] [place], [place] [address]Xf. Wyatt Aldrich Platelet mean volume (Bld) [Entitic vol] 9.3 fL Critically low 9.5-13.5 [facility] Comment on above: Performed By: #### C BC ####[facility] [address] [place], [place] [address]Ux. Wyatt Aldrich PLT 303 103/ul Normal 150-450 [facility] Comment on above: Performed By: #### C BC ####[facility] [address] [place], [place] [address]Ej. Wyatt Aldrich RBC 5.03 106/ul Normal 4.70-6.10 [facility] Comment on above: Performed By: #### C BC ####[facility] [address] [place], [place] [address]Rc. Wyatt Aldrich WBC 21.2 103/ul Critically high 4.0-11.0 [facility] Comment on above: Performed By: #### C BC ####[facility] [address] [place], [place] [address]U[address] Wy[address] CT ABD/PELVIS WO CONon 05-29 [...] by: BOO GUZMAN Date: 2022-05-29 17:32 Normal [facility] ER URINE PROFILEon 2 Bilirubin Ql (U) Negative Normal NEGATIVE [facility] Comment on above: Performed By: #### U MICRO, ERUR #### [facility] [address] [place] [address] Dr. Wyatt Aldrich Clarity (U) CLEAR Normal CLEAR [facility] Comment on above: Performed By: #### U MICRO, ERUR #### [facility] [address] [place] [address] Dr. Wyatt Aldrich Color (U) LT. YELLOW Normal YELLOW [facility] Comment on above: Performed By: #### U MICRO, ERUR #### [facility] [address] [place] [address] [address] Wyatt [place] A micrscopic examination will be performed if indicated. Normal [facility] Comment on above: Performed By: #### U MICRO, ERUR #### [facility] [address] [place] [address] [address] Wyatt Aldrich Glucose Ql (U) Negative Normal NEGATIVE [facility] Comment on above: Performed By: #### U MICRO, ERUR #### [facility] [address] [place] [address] [address] Wyatt Aldrich Hemoglobin Ql (U) TRACE-INTACT Abnormal NEGATIVE [facility] Comment on above: Performed By: #### U MICRO, ERUR #### [facility] [address] [place] [address] Dr. Wyatt Aldrich Ketones Ql (U) Negative Normal NEGATIVE [facility] Comment on above: Performed By: #### U MICRO, ERUR #### [facility] [address] [place] [address] Dr. Wyatt Aldrich LEUKOCYTES Negative Normal NEGATIVE [facility] Comment on above: Performed By: #### U MICRO, ERUR #### [facility] [address] [place] [address] Dr. Wyatt Aldrich Nitrite Ql (U) Negative Normal NEGATIVE [facility] Comment on above: Performed By: #### U MICRO, ERUR #### [facility] [address] [place] [address] Dr. Wyatt Aldrich pH (U) 7.0 [pH] Normal 5-9 [facility] Comment on above: Performed By: #### U MICRO, ERUR #### [facility] [address] [place] [address] Dr. Wyatt Aldrich SPEC GRAVITY 1.020 Normal 1.005-<=1.025 [facility] Comment on above: Performed By: #### U MICRO, ERUR #### [facility] [address] [place] [address] Dr. Wyatt Aldrich UA PROTEIN Negative Normal NEGATIVE/ TRACE [facility] Comment on above: Performed By: #### U MICRO, ERUR #### [facility] [address] [place] [address] Dr. Wyatt Aldrich UR MICRO IND INDICATED Normal [facility] Comment on above: Performed By: #### U MICRO, ERUR #### [facility] [address] [place] [address] Dr. Wyatt Aldrich Urobilinogen Qn (U) 0.2 {Sharon'U}/dL Normal 0.2 - 1. 0 [facility] Comment on above: Performed By: #### U MICRO, ERUR #### [facility] [address] [place] [address] Dr. Wyatt Aldrich PROF 14(COMP METB)on 022 Albumin [Mass/Vol] 3.9 g/dL Normal 3.4-5.0 [facility] Comment on above: Performed By: #### C MP #### [facility] [address] [place] [address] Dr. Wyatt Aldrich Albumin/Globulin [Mass ratio] 1.1 {ratio} Normal [facility] Comment on above: Performed By: #### C MP #### [facility] [address] [place] [address] Dr. Wyatt Aldrich ALP [Catalytic activity/Vol] 70 U/L Normal 46-116 [facility] Comment on above: Performed By: #### C MP #### [facility] [address] [place] [address] Dr. Wyatt Aldrich ALT [Catalytic activity/Vol] 38 U/L Normal 16-63 [facility] Comment on above: Performed By: #### C MP #### [facility] [address] [place] [address] Dr. Wyatt Aldrich Anion gap [Moles/Vol] 12.6 mmol/L Normal [facility] Comment on above: Performed By: #### C MP #### [facility] [address] [place] [address] Dr. Wyatt Aldrich AST [Catalytic activity/Vol] 20 U/L Normal 15-37 [facility] Comment on above: Performed By: #### C MP #### [facility] [address] [place] [address] Dr. Wyatt Aldrich Bilirubin [Mass/Vol] 0.6 mg/dL Normal 0.2-1.0 [facility] Comment on above: Performed By: #### C MP #### [facility] [address] [place] [address] Dr. Wyatt Aldrich Calcium [Mass/Vol] 8.7 mg/dL Normal 8.5-10.1 [facility] Comment on above: Performed By: #### C MP #### [facility] [address] [place] [address] [address] Wyatt Aldrich Chloride [Moles/Vol] 95 mmol/L Critically low 98-107 [facility] Comment on above: Performed By: #### C MP #### [facility] [address] [place] [address] Dr. Wyatt Aldrich CO2 [Moles/Vol] 29.9 mmol/L Normal 21.0-32.0 [facility] Comment on above: Performed By: #### C MP #### [facility] [address] [place] [address] [address] Wyatt Aldrich Creatinine [Mass/Vol] 1.04 mg/dL Normal 0.70-1.30 [facility] Comment on above: Performed By: #### C MP #### [facility] [address] [place] [address] [address] Wyatt Aldrich EGFR-AF MEXICAN >60 Normal >=60 [facility] Comment on above: Performed By: #### C MP #### [facility] [address] [place] [address] [address] Wyatt Aldrich EGFR-NON AF MEXICAN >60 Normal >=60 [facility] Comment on above: Performed By: #### C MP #### [facility] [address] [place] [address] Dr. Wyatt Aldrich Globulin (S) [Mass/Vol] 3.4 g/dL Normal [facility] Comment on above: Performed By: #### C MP #### [facility] [address] [place] [address] [address] Wyatt Aldrich Glucose [Mass/Vol] 148 mg/dL Critically high 74-106 [facility] Comment on above: Performed By: #### C MP #### [facility] [address] [place] [address] Dr. Wyatt Aldrich Potassium [Moles/Vol] 4.5 mmol/L Normal 3.5-5.1 [facility] Comment on above: Performed By: #### C MP #### [facility] [address] [place] [address] [address] Wyatt Aldrich Protein [Mass/Vol] 7.3 g/dL Normal 6.4-8.2 [facility] Comment on above: Performed By: #### C MP #### [facility] [address] [place] [address] [address] Wyatt Aldrich Sodium [Moles/Vol] 133 mmol/L Critically low 136-145 [facility] Comment on above: Performed By: #### C MP #### [facility] [address] [place] [address] [address] Wyatt Aldrich Urea nitrogen [Mass/Vol] 15.0 mg/dL Normal 7.0-18.0 [facility] Comment on above: Performed By: #### C MP #### [facility] [address] [place] [address] Dr. Wyatt Aldrich Urea nitrogen/Creatinine [Mass ratio] 14.4 mg/mg Normal [facility] Comment on above: Performed By: #### C MP #### [facility] [address] [place] [address] Dr. Wyatt Aldrich URINE MICROSCOPIC ONLYon BACTERIA NONE SEEN Normal NONE SEEN [facility] Comment on above: Performed By: #### U MICRO, ERUR #### [facility] [address] [place] [address] Dr. Wyatt Aldrich Bacteria identified Cx Nom (U) NOT INDICATED Normal [facility] Comment on above: Performed By: #### U MICRO, ERUR #### [facility] [address] [place] [address] Dr. Wyatt Aldrich CAST NONE SEEN Normal NONE SEEN [facility] Comment on above: Performed By: #### U MICRO, ERUR #### [facility] [address] [place] [address] Dr. Wyatt Aldrich Crystals LM Nom (Urine sed) NONE SEEN Normal NONE SEEN [facility] Comment on above: Performed By: #### U MICRO, ERUR #### [facility] [address] [place] [address] Dr. Waytt Aldrich Epithelial cells LM Ql (Urine sed) NONE SEEN Normal NONE SEEN /RARE [facility] Comment on above: Performed By: #### U MICRO, ERUR #### [facility] [address] [place] [address] Dr. Wyatt Aldrich MUCOUS NONE SEEN Normal NONE SEEN [facility] Comment on above: Performed By: #### U MICRO, ERUR #### [facility] [address] [place] [address] Dr. Wyatt Aldrich RBC 2-5 Abnormal 0-2 [facility] Comment on above: Performed By: #### U MICRO, ERUR #### [facility] [address] [place] [address] [address] Wyatt Aldrich WBC NONE SEEN Normal NONE SEEN [facility] Comment on above: Performed By: #### U MICRO, ERUR #### [facility] [address] [place] [address] [address] Wyatt Aldrich T4 LABCORPon 01-29-2022 T4 [Mass/Vol] 9.1 ug/dL Normal 4.5-12.0 [facility] Comment on above: Performed By: #### T 4LC ####[facility] [address] [place] [address]Dr. Wyatt Aldrich CBC AUTO DIFFon 01-28-2022 BASO # 0.1 103/ul Normal 0.0-0.1 [facility] Comment on above: Performed By: #### C BC ####[facility] [address] [place], [place] [address]DrCullen Aldrich Basophils/100 WBC (Bld) 0.6 % Normal 0.2-2.0 [facility] Comment on above: Performed By: #### C BC ####[facility] [address] [place], [place] [address]Dr. Wyatt Aldrich EO # 0.2 103/ul Normal 0.0-0.7 [facility] Comment on above: Performed By: #### C BC ####[facility] [address] [place], [place] [address]DrCullen Aldrich Eosinophils/100 WBC (Bld) 2.4 % Normal 0.9-7.0 [facility] Comment on above: Performed By: #### C BC ####[facility] [address] [place], [place] [address]DrCullen Aldrich Erythrocyte distribution width (RBC) [Ratio] 12.5 % Normal 11.0-15.0 [facility] Comment on above: Performed By: #### C BC ####[facility] [address] [place], [place] [address]DrCullen Aldrich Hematocrit (Bld) [Volume fraction] 43.5 % Normal 42.0-54.0 [facility] Comment on above: Performed By: #### C BC ####[facility] [address] [place] [address]DrCullen Aldrich Hemoglobin (Bld) [Mass/Vol] 14.4 g/dL Normal 14.0-18.0 [facility] Comment on above: Performed By: #### C BC ####[facility] [address] [place] [address]Dr. Wyatt Aldrich IG # 0.03 10e3/ul Normal 0.00-0.03 [facility] Comment on above: Performed By: #### C BC ####[facility] [address] [place], [place] [address]DrCullen Aldrich IG % 0.4 % Normal 0.0-0.5 [facility] Comment on above: Performed By: #### C BC ####[facility] [address] [place], [place] [address]DrCullen Aldrich LYMPH # 2.1 103/ul Normal 1.2-3.8 [facility] Comment on above: Performed By: #### C BC ####[facility] [address] [place], [place] [address]DrCullen Aldrich Lymphocytes/100 WBC (Bld) 24.8 % Normal 20.5-60.0 [facility] Comment on above: Performed By: #### C BC ####[facility] [address] [place] [address]DrCullen Aldrich MANUAL DIFF REQ NO Normal [facility] Comment on above: Performed By: #### C BC ####[facility] [address] [place] [id number] Aldrich MCH (RBC) [Entitic mass] 30.6 pg Normal 25.9-34.0 [facility] Comment on above: Performed By: #### C BC ####[facility] [address] [place] [id number] Aldrich MCHC (RBC) [Mass/Vol] 33.1 g/dL Normal 29.9-35.2 [facility] Comment on above: Performed By: #### C BC ####[facility] [address] [place] [address]DrCullen Wyatt Valdemar MCV (RBC) [Entitic vol] 92.6 fL Normal 80.0-94.0 [facility] Comment on above: Performed By: #### C BC ####[facility] [address] [place] [address]DrCullen Aldrich MONO # 0.6 103/ul Normal 0.3-0.8 [facility] Comment on above: Performed By: #### C BC ####[facility] [address]miduiiqs[address]64 [place] [address]DrCullen Aldrich Monocytes/100 WBC (Bld) 7.7 % Normal 1.7-12.0 [facility] Comment on above: Performed By: #### C BC ####[facility] [address] [place], [place] [address]Dr. Wyatt Aldrich NEUT # 5.3 103/ul Normal 1.4-6.5 [facility] Comment on above: Performed By: #### C BC ####[facility] [address] [place], [place] [address]Dr. Wyatt Aldrich Neutrophils/100 WBC (Bld) 64.1 % Normal 43.0-75.0 [facility] Comment on above: Performed By: #### C BC ####[facility] [address] [place] [address]DrCullen Aldrich Platelet mean volume (Bld) [Entitic vol] 9.4 fL Critically low 9.5-13.5 [facility] Comment on above: Performed By: #### C BC ####[facility] [address] [place], [place] [address]Dr. Wyatt Aldrich PLT 280 103/ul Normal 150-450 [facility] Comment on above: Performed By: #### C BC ####[facility] [address] [place] [id number]. Wyatt Aldrich RBC 4.70 106/ul Normal 4.70-6.10 [facility] Comment on above: Performed By: #### C BC ####[facility] [address] [place] [address]Dr. Wyatt Aldrich WBC 8.3 103/ul Normal 4.0-11.0 [facility] Comment on above: Performed By: #### C BC ####[facility] [address] [place] [id number]. Wyatt Aldrich FREE T3on 01-28-2022 FREE T3 2.70 pg/mlL Normal 2.18-3.98 [facility] Comment on above: Performed By: #### L IPID, CMP, TSH, FT3 ####[facility] [address] [place] [address]Dr. Wyatt Aldrich GLYCOHEMOGLOBIN A1Con 2021 ADA RECOMMENDATION SEE BELOW Normal [facility] Comment on above: Result Comment: ADA RECOMMENDED LIMIT 4.0 - 6.0 ADA THERAPEUTIC TARGET < 7.0 ACTION SUGGESTED > 7.0 Performed By: #### A 1C #### [facility] [address] [address] [address] Wyatt Aldrich Glucose [Mass/Vol] 143 mg/dL Normal [facility] Comment on above: Performed By: #### A 1C #### [facility] [address] [address] [address] Wyatt Aldrich HbA1c (Bld) [Mass fraction] 6.6 % Critically high 4.5-6.2 [facility] Comment on above: Performed By: #### A 1C #### [facility] [address] [address] [address] Wyatt Aldrich LIPID PROFILEon 01-28-2022 CHOL-HDL RATIO NORM SEE BELOW Normal [facility] Comment on above: Result Comment: 3.3 - 4.4 LOW RISK 4.4 - 7.1 AVERAGE RISK 7.1 - 11.0 MODERATE RISK >11.0 HIGH RISK Performed By: #### L IPID, CMP, TSH, FT3 ####[facility] [address] [place] [address]Dr. Wyatt Aldrich Cholesterol [Mass/Vol] 176 mg/dL Normal <=200 [facility] Comment on above: Performed By: #### L IPID, CMP, TSH, FT3 ####[facility] [address] [place] [address]Dr. Wyatt Aldrich Cholesterol in HDL [Mass/Vol] 35 mg/dL Critically low 40-60 [facility] Comment on above: Performed By: #### L IPID, CMP, TSH, FT3 ####[facility] [address] [place] [address]Dr. Wyatt Aldrich Cholesterol in LDL [Mass/Vol] 94.4 mg/dL Normal [facility] Comment on above: Performed By: #### L IPID, CMP, TSH, FT3 ####[facility] [address] [place] [address]Dr. Wyatt Aldrich Cholesterol.total/Ch olesterol in HDL [Mass ratio] 5.0 {ratio} Normal [facility] Comment on above: Performed By: #### L IPID, CMP, TSH, FT3 ####[facility] [address] [place] [address]Dr. Wyatt Aldrich HDL NORMAL > or = 60 mg/dl - LO W CARDIOVASCULAR RISK <40 mg/dl - HIGH CARDIOVASCULAR RISK Normal [facility] Comment on above: Performed By: #### L IPID, CMP, TSH, FT3 ####[facility] [address] [place] [address]Dr. Wyatt Aldrich LDL CALC NORMAL SEE BELOW Normal [facility] Comment on above: Result Comment: <100 mg/dl OPTIMAL 100 - 129 mg/dl NEAR OR ABOVE OPTIMAL 130 - 159 mg/dl BORDERLINE HIGH 160 - 189 mg/dl HIGH >190 mg/dl VERY HIGH Performed By: #### L IPID, CMP, TSH, FT3 ####[facility] [address] [place] [address]Dr. Wyatt Aldrich Triglyceride [Mass/Vol] 233 mg/dL Critically high <=150 [facility] Comment on above: Performed By: #### L IPID, CMP, TSH, FT3 ####[facility] [address] [place] [address]Dr. Wyatt Aldrich VLDL CALC 46.6 mg/dL Normal [facility] Comment on above: Performed By: #### L IPID, CMP, TSH, FT3 ####[facility] [address] [place] [address]Dr. Wyatt Aldrich OCC BLD IMMUNO SCREENon 01-03 OCCULT BLOOD Negative Normal NEGATIVE [facility] Comment on above: Performed By: #### O BSCRN #### [facility] [address] [address] [address] Wyatt Aldrich PROF 14(COMP METB)on 022 Albumin [Mass/Vol] 3.4 g/dL Normal 3.4-5.0 [facility] Comment on above: Performed By: #### L IPID, CMP, TSH, FT3 ####[facility] [address] [place] [address]Dr. Wyatt Aldrich Albumin/Globulin [Mass ratio] 1.0 {ratio} Normal [facility] Comment on above: Performed By: #### L IPID, CMP, TSH, FT3 ####[facility] [address] [place] [address]Dr. Wyatt Aldrich ALP [Catalytic activity/Vol] 65 U/L Normal 46-116 [facility] Comment on above: Performed By: #### L IPID, CMP, TSH, FT3 ####[facility] [address] [place] [address]Dr. Wyatt Aldrich ALT [Catalytic activity/Vol] 45 U/L Normal 16-63 [facility] Comment on above: Performed By: #### L IPID, CMP, TSH, FT3 ####[facility] [address]vox[address] [place] [address]Dr. Wyatt Aldrich Anion gap [Moles/Vol] 9.7 mmol/L Normal [facility] Comment on above: Performed By: #### L IPID, CMP, TSH, FT3 ####[facility] [address] [place] [address]Dr. Wyatt Aldrich AST [Catalytic activity/Vol] 20 U/L Normal 15-37 [facility] Comment on above: Performed By: #### L IPID, CMP, TSH, FT3 ####[facility] [address] [place] [address]Dr. Wyatt Aldrich Bilirubin [Mass/Vol] 0.4 mg/dL Normal 0.2-1.0 [facility] Comment on above: Performed By: #### L IPID, CMP, TSH, FT3 ####[facility] [address] [place] [address]Dr. Wyatt Aldrich Calcium [Mass/Vol] 8.5 mg/dL Normal 8.5-10.1 [facility] Comment on above: Performed By: #### L IPID, CMP, TSH, FT3 ####[facility] [address] [place], [place] [address]Dr. Wyatt Aldrich Chloride [Moles/Vol] 101 mmol/L Normal 98-107 [facility] Comment on above: Performed By: #### L IPID, CMP, TSH, FT3 ####[facility] [address] [place], [place] [address]Dr. Wyatt Aldrich CO2 [Moles/Vol] 33.3 mmol/L Critically high 21.0-32.0 [facility] Comment on above: Performed By: #### L IPID, CMP, TSH, FT3 ####[facility] [address] [place] [address]Dr. Wyatt Aldrich Creatinine [Mass/Vol] 0.77 mg/dL Normal 0.70-1.30 [facility] Comment on above: Performed By: #### L IPID, CMP, TSH, FT3 ####[facility] [address] [place] [address]Dr. Wyatt Aldrich EGFR-AF MEXICAN >60 Normal >=60 [facility] Comment on above: Performed By: #### L IPID, CMP, TSH, FT3 ####[facility] [address]xbnbj[address] [place] [address]Dr. Wyatt Aldrich EGFR-NON AF MEXICAN >60 Normal >=60 [facility] Comment on above: Performed By: #### L IPID, CMP, TSH, FT3 ####[facility] I[address]gsvr[address] [place] [address]Dr. Wyatt Aldrich Globulin (S) [Mass/Vol] 3.3 g/dL Normal [facility] Comment on above: Performed By: #### L IPID, CMP, TSH, FT3 ####[facility] [address] [place] [address]Dr. Wyatt Aldrich Glucose [Mass/Vol] 137 mg/dL Critically high 74-106 [facility] Comment on above: Performed By: #### L IPID, CMP, TSH, FT3 ####[facility] [address] [place], [place] [address]Dr. Wyatt Aldrich Potassium [Moles/Vol] 4.0 mmol/L Normal 3.5-5.1 [facility] Comment on above: Performed By: #### L IPID, CMP, TSH, FT3 ####[facility] [address] [place], [place] [address]Dr. Wyatt Aldrich Protein [Mass/Vol] 6.7 g/dL Normal 6.4-8.2 [facility] Comment on above: Performed By: #### L IPID, CMP, TSH, FT3 ####[facility] [address] [place], [place] [address]Dr. Wyatt Aldrich Sodium [Moles/Vol] 140 mmol/L Normal 136-145 [facility] Comment on above: Performed By: #### L IPID, CMP, TSH, FT3 ####[facility] [address] [place], [place] [address]Dr. Wyatt Aldrich Urea nitrogen [Mass/Vol] 13.0 mg/dL Normal 7.0-18.0 [facility] Comment on above: Performed By: #### L IPID, CMP, TSH, FT3 ####[facility] [address] [place], [place] [address]Dr. Wyatt Aldrich Urea nitrogen/Creatinine [Mass ratio] 16.9 mg/mg Normal [facility] Comment on above: Performed By: #### L IPID, CMP, TSH, FT3 ####[facility] [address] [place], [place] [address]On. yWatt Aldrich TSHon 01-28-2022 TSH 5.562 uIU/mL Critically high 0.358-3.740 [facility] Comment on above: Performed By: #### L IPID, CMP, TSH, FT3 ####[facility] [address] [place], [place] [address]Nx. Wyatt Aldrich TSH RANGE SEE BELOW Normal [facility] Comment on above: Result Comment: <0.3 4 UIU/ml HYPERTHYROID 0.34-5.60 UIU/ml EUTHYROID >5.60 UIU/ml HYPOTHYROID Performed By: #### L IPID, CMP, TSH, FT3 ####[facility] [address] [place], [place] [address]Gh. Wyatt Aldrich XR KUB 1 VIEWon 01-20-2022 [...] IMPRESSION: Stable right nephrolith Electronically authenticated by: AMNSOOR LIMA Date: 2022-01-20 14:12 Normal [facility] MRI LSPINE WO W CONon [...] by: TANISHA CHIU Date: 2021-10-04 11:23 Normal [facility] XR LSPINE MIN 4 VIEWSon 09-05 [...] by: SOLO SAVAGE Date: 2021-09-27 11:31 Normal [facility] Vital Signs Date Time Vital Sign Value Performing Clinician Jessi chowdhury 04-23-2025 10:28-0400 Body weight 161.2 kg Asim Fernandez MD Work Phone: [facility] 03-19-2025 09:07-0400 Body height 187.96 cm Asim Fernandez MD Work Phone: [facility] 03-19-2025 09:07-0400 Body mass index (BMI) [Ratio] 46.2 kg/m2 Asim Fernandez MD Work Phone: [facility] 03-19-2025 09:07-0400 Body weight 163.2 kg Asim Fernandez MD Work Phone: [facility] 03-04-2025 08:41-0400 Body height 187.96 cm Asim Fernandez MD Work Phone: [facility] 03-04-2025 08:41-0400 Body mass index (BMI) [Ratio] 45.6 kg/m2 Asim Fernandez MD Work Phone: [facility] 03-04-2025 08:41-0400 Body weight 161.3 kg Asim Fernandez MD Work Phone: [facility] 01-30-2025 10:28-0400 Body weight 164.9 kg Asim Fernandez MD Work Phone: [facility] 12-26-2024 08:29-0400 Body weight 164 kg [facility] 10-29-2024 08:25-0500 Blood Pressure Location Michele RAYGOZA [facility] [place] 10-29-2024 08:25-0500 Diastolic blood pressure 72 mm[Hg] Michele RAYGOZA [facility] [place] 10-29-2024 08:25-0500 Heart rate 64 /min Michele RAYGOZA [facility] 10-29-2024 08:25-0500 Respiratory rate 16 /min Michele RAYGOZA [facility] [place] 10-29-2024 08:25-0500 Systolic blood pressure 129 mm[Hg] Michele NILL [facility] [place] 09-10-2024 09:50-0500 Diastolic blood pressure 78 mm[Hg] Zena Orzech [facility] 09-10-2024 09:50-0500 Mean blood pressure 99 mm[Hg] Zena Orzech [facility] 09-10-2024 09:50-0500 Systolic blood pressure 140 mm[Hg] Zena Orzech [facility] 09-10-2024 09:27-0500 Blood Pressure Location Zena Orzech [facility] 09-10-2024 09:27-0500 Body temperature 98.6 [degF] Zena Orzech [facility] 09-10-2024 09:27-0500 Diastolic blood pressure 96 mm[Hg] Zena Orzech [facility] 09-10-2024 09:27-0500 Heart rate 69 /min Zena Orzech [facility] 09-10-2024 09:27-0500 Systolic blood pressure 190 mm[Hg] Zena Orzech [facility] 06-11-2024 08:19-0400 Blood Pressure Location Porsche AKHTAR [facility] 06-11-2024 08:19-0400 Diastolic blood pressure 111 mm[Hg] Porsche AKHTAR [facility] 06-11-2024 08:19-0400 Heart rate 71 /min Porsche COOK [facility] 06-11-2024 08:19-0400 Systolic blood pressure 190 mm[Hg] Porsche COOK [facility] 06-06-2023 08:48-0400 Blood Pressure Location Porsche COOK [facility] 06-06-2023 08:48-0400 Diastolic blood pressure 66 mm[Hg] Porsche COOK [facility] 06-06-2023 08:48-0400 Heart rate 83 /min Porsche COOK [facility] 06-06-2023 08:48-0400 Systolic blood pressure 142 mm[Hg] Porsche COOK [facility] 06-17-2022 09:14-0400 Blood Pressure Location Porsche COOK [facility] 06-17-2022 09:14-0400 Diastolic blood pressure 96 mm[Hg] Porsche COOK [facility] 06-17-2022 09:14-0400 Heart rate 67 /min Porsche COOK [facility] 06-17-2022 09:14-0400 Systolic blood pressure 159 mm[Hg] Porsche COOK [facility] 06-10-2022 09:54-0400 Blood Pressure Location Porsche COOK [facility] 06-10-2022 09:54-0400 Diastolic blood pressure 102 mm[Hg] Porsche AKHTAR [facility] 06-10-2022 09:54-0400 Heart rate 68 /min Porsche AKHTAR [facility] 06-10-2022 09:54-0400 Systolic blood pressure 166 mm[Hg] Porsche AKHTAR [facility] 01-21-2022 08:44-0400 Blood Pressure Location Porsche AKHTAR [facility] 01-21-2022 08:44-0400 Diastolic blood pressure 87 mm[Hg] Porsche AKHTAR [facility] 01-21-2022 08:44-0400 Heart rate 72 /min Porsche AKHTAR [facility] 01-21-2022 08:44-0400 Systolic blood pressure 140 mm[Hg] Porsche AKHTAR [facility] Encounters Encounter Date Encounter Type Care Provider Facility Start: 04-23-2025 End: 04-23-2025 ambulatory Asim Fernandez MD Work Phone: [facility] Work Phone: Start: 04-23-2025 End: 04-23-2025 Patient encounter procedure Tanisha Ocampo [facility] Work Phone: Start: 04-09-2025 End: 04-09-2025 Patient encounter procedure Tanisha Ocampo DO -[facility] Work Phone: Start: 04-09-2025 End: 04-09-2025 ambulatory Asim Fernandez MD Work Phone: [facility] Work Phone: Start: 04-09-2025 Non-patient / Non-visit Eyad Amaral MD -[facility] Work Phone: Start: 03-19-2025 End: 03-19-2025 ambulatory Asim Fernandez MD Work Phone: [facility] Work Phone: Start: 03-19-2025 End: 03-19-2025 Patient encounter procedure Tanisha Ocampo DO -[facility] Work Phone: Start: 03-18-2025 End: 03-18-2025 Patient encounter procedure Colleen Miles LOPEZN -CT [facility] Work Phone: Start: 03-18-2025 End: 03-18-2025 ambulatory Asim Fernandez MD Work Phone: [facility] Work Phone: Start: 03-04-2025 End: 03-04-2025 ambulatory Asim Fernandez MD Work Phone: [facility] Work Phone: Start: 03-04-2025 End: 03-04-2025 Patient encounter procedure Colleen Aquino APRN -[facility] Work Phone: Start: 02-28-2025 End: 02-28-2025 Patient encounter procedure Colleen Aquino END LATHE OPERATOR -[facility] Work Phone: Start: 02-28-2025 End: 02-28-2025 ambulatory Asim Fernandez MD Work Phone: [facility] Work Phone: Start: 01-30-2025 End: 01-30-2025 ambulatory Asim Fernandez MD Work Phone: [facility] Work Phone: Start: 01-30-2025 End: 01-30-2025 Patient encounter procedure Asim Fernandez MD Work Phone: [facility] Work Phone: Start: 01-21-2025 End: 01-21-2025 Bamboo flowsheet Loi Benitez HE[employer] AND WELLNESS DIRECTOR [facility] Start: 01-21-2025 End: 01-21-2025 Bamboo flowsheet Loi Benitez HEALTH AND WELLNESS DIRECTOR [facility] Start: 01-21-2025 End: 01-21-2025 ambulatory Lio Benitez HEALTH AND WELLNESS DIRECTOR [facility] Comment on above: Lumbar paraspinal mu scle spasm (Primary Dx); Cervical radiculopathy Start: 01-17-2025 End: 01-17-2025 Bamboo flowsheet Loi Gabriel HEALTH AND WELLNESS DIRECTOR [facility] Start: 01-17-2025 End: 01-17-2025 Bamboo flowsheet Loi Gabriel HEALTH AND WELLNESS DIRECTOR [facility] Start: 01-17-2025 End: 01-17-2025 ambulatory Loi Benitez HEALTH AND WELLNESS DIRECTOR [facility] Comment on above: Lumbar paraspinal mu scle spasm (Primary Dx); Cervical radiculopathy Start: 01-15-2025 End: 01-15-2025 Bamboo flowsheet Loi Benitez HEALTH AND WELLNESS DIRECTOR [facility] Start: 01-15-2025 End: 01-15-2025 Bamboo flowsheet Loi Benitez HEALTH AND WELLNESS DIRECTOR [facility] Start: 01-15-2025 End: 01-15-2025 ambulatory Loi Benitez HEALTH AND WELLNESS DIRECTOR [facility] Comment on above: Lumbar paraspinal mu scle spasm (Primary Dx); Cervical radiculopathy Start: 01-09-2025 End: 01-09-2025 Bamboo flowsheet Loi Gabriel HEALTH AND WELLNESS DIRECTOR [facility] Start: 01-09-2025 End: 01-09-2025 Bamboo flowsheet Loi Gabriel HEALTH AND WELLNESS DIRECTOR [facility] Start: 01-09-2025 End: 01-09-2025 ambulatory Loi Gabriel HEALTH AND WELLNESS DIRECTOR [facility] Comment on above: Lumbar [...] Start: 01-01-2025 End: 01-01-2025 Bamboo flowsheet Michael Escalatneton PT Work Phone: [facility] Start: 01-01-2025 End: 01-01-2025 Bamboo flowsheet Michael Ram PT Work Phone: [facility] Start: 01-01-2025 End: 01-01-2025 ambulatory Michael Ram PT Work Phone: [facility] Comment on above: Lumbar paraspinal mu scle spasm (Primary Dx) Start: 12-26-2024 End: 12-26-2024 ambulatory Asim Fernandez MD Work Phone: [facility] Work Phone: Start: 12-26-2024 End: 12-26-2024 [facility]: Start: 12-09-2024 End: 12-09-2024 ambulatory Heather Turcios MD Facility:[facility] Start: 10-29-2024 End: 10-29-2024 ambulatory Michele RAYGOZA Facility:[facility] Start: 10-29-2024 End: 10-29-2024 Patient encounter procedure Michele RAYGOZA [facility] [place] Start: 10-18-2024 ambulatory Porsche AKHTAR Facility: [facility] [place] Start: 09-10-2024 End: 09-10-2024 ambulatory Zena X Sole Facility:[facility] Start: 09-10-2024 End: 09-10-2024 Patient encounter procedure Zena X Orzech [facility] Start: 06-11-2024 End: 06-11-2024 ambulatory Porsche AKHTAR Facility: [facility] Start: 06-11-2024 End: 06-11-2024 Patient encounter procedure Porsche AKHTAR [facility] [place] Start: 06-10-2024 End: 06-10-2024 ambulatory Heather Turcios MD Facility:[facility] Start: 02-19-2024 End: 02-19-2024 ambulatory Heather Turcios MD Facility:[facility] [place] Start: 02-05-2024 End: 02-05-2024 ambulatory Heather Turcios MD Facility:[facility] [place] Start: 06-06-2023 End: 06-06-2023 Patient encounter procedure Porsche AKHTAR [facility] [place] Start: 06-17-2022 End: 06-17-2022 Patient encounter procedure Porsche AKHTAR [facility] [place] Start: 06-16-2022 End: 06-17-[address] ASIM FERNANDEZ Facility: Start: 06-10-2022 End: 06-10-2022 Patient encounter procedure Porsche AKHTAR [facility] [place] Start: 06-09-2022 End: 06-10-[address] ASIM FERNANDEZ Facility:[facility] Start: 05-29-2022 End: 05-29-[address] ASIM FERNANDEZ Facility:[facility] Start: 05-11-2022 End: 05-11-2022 Patient encounter procedure Porsche AKHTAR [facility] Start: 02-03-2022 Encounter for genera l adult medical examination without abnormal findings DR ASIM FERNANDEZ [facility] Start: 01-28-2022 End: 01-29-[address] ASIM FERNANDEZ Facility:[facility] Start: 01-28-2022 End: 01-29-2022 Encounter for general adult medical examination without abnormal findings DR ASIM FERNANDEZ Facility:[facility] Start: 01-21-2022 End: 01-21-2022 Patient encounter procedure Porsche AKHTAR [facility] Start: 01-20-2022 End: 01-21-[address] ASIM [...] on above: Performed By: #### P SAD ####[facility] [address] [place], [place] [address]XmCullen Aldrich Start: 08-13-2020 Extracorporeal shock wave lithotripsy of calculus of kidney Porsche AKHTAR Start: 03-27-2019 Colonoscopy Michele NI LL Start: 02-02-2014 Colonoscopy Michele NI LL Start: 09-04-2004 Colonoscopy Michele NI LL Cholecystectomy Michele NILL Dental surgical procedure Gr poncho AHKTAR Drainage of perirect al abscess Michele NILL [...] Ended) [facility] Start: 04-23-2025 Patient referral [facility] Work Phone: Start: 01-28-2025 End: 01-28-2025 ambulatory [facility] Start: 01-23-2025 End: 01-23-2025 ambulatory [facility] Start: 01-21-2025 End: 01-21-2025 ambulatory [facility] Start: 01-17-2025 End: 01-17-2025 ambulatory 01/17/2025 10:30 AM EDT Treatment [facility] [address] [place] [address] Loi Benitez PTA [facility] Start: 01-15-2025 End: 01-15-2025 ambulatory [facility] Comment on above: Arrived Start: 01-09-2025 End: 01-09-2025 ambulatory [facility] Comment on above: Arrived Start: 01-01-2025 End: 01-01-2025 ambulatory 01/01/2025 10:00 AM EDT Evaluation [facility] [address] [facility] [address] [place] [address] Michael Ram, PT [address] [facility] [address] [place] [address] Arrived [facility] Comment on above: Arrived Start: 12-26-2024 Patient referral [facility] Work Phone: Start: 1965 Screening for malign ant neoplasm of colon [facility] Electromyography [facility] Patient referral [facility] Work Phone: XR Lumbar spine Views [facility] Immunizations Immunization Date Immunization Notes Care Provider Mica biggs 04-19-2022 zoster vaccine recombinant Porsche AKHTAR [facility] 02-12-2022 pneumococcal 20-maría nt conjugate vaccine Porsche AKHTAR [facility] 02-03-2022 zoster vaccine recombinant Porsche AKHTAR [facility] 12-08-2020 SARS-CoV-2 (COVID-19 ) mRNA-1273 vaccine Porsche AKHTAR [facility] 11-17-2020 SARS-CoV-2 (COVID-19 ) mRNA BNT-162b2 vax Porsche AKHTAR [facility] 11-11-2020 SARS-CoV-2 (COVID-19 ) mRNA-4023 vaccine Porsche AKHTAR [facility] Payers Date Payer Category Payer Self-pay 2023 [facility] [id number] 2023 Private Health Insurance [id number]. 315 2023 Unknown 2023 Unknown [id number] 1965 Unknown [id number] 2.840.1.088452.3.57 9.2.593 1964 Unknown [id number] 2.16840.1.284648.3.57 9.2.593 1964 Unknown [id number] 2.16.840.1.356534.3.57 9.2.593 1964 Unknown [id number] 2.16.840.1.653427.3.57 9.2.593 1964 Unknown [id number] 2.16.840.1.488379.3.57 9.2.593 1964 Unknown [id number] 2.16.840.1.315925.3.57 9.2.593 1964 Unknown [id number] 2.16.840.1.310636.3.57 9.2.593 1964 Unknown [id number] 2.16.840.1.585048.3.57 9.2.593 1964 Unknown [id number] 2.16.840.1.970792.3.57 9.2.727 1964 Unknown [id number] 2.16840.1.213383.3.57 9.2.727 1964 Unknown [id number] 2.16.840.1.851670.3.57 9.2.727 1964 Unknown [id number] 2.16840.1.165399.3.57 9.2.727 1964 Unknown [id number] 2.16840.1.084430.3.57 9.2.196 1964 Unknown [id number] 2.840.1.437478.3.57 9.2.196 1964 Unknown [id number] 2.16840.1.787450.3.57 9.2.196 1964 Unknown [id number] 2.16840.1.948266.3.57 9.2.196 1964 Unknown [id number] 2.16840.1.946287.3.57 9.2.1259 1964 Unknown [id number] 2.840.1.828817.3.57 9.2.1259 1964 Unknown [id number] 2.16840.1.736777.3.57 9.2.1259 1964 Unknown [id number] 2.16840.1.418096.3.57 9.2.1259 1964 Unknown [id number] 2.16.840.1.613026.3.57 9.2.1259 1964 Unknown [id number] 2.16840.1.739163.3.57 9.2.1259 1959 Private Health Insurance [id number] Unknown [employer] [id number] Unknown [id number] 2.16.840.1.525118.3.57 9.2.531 Unknown [id number] 2.16.840.1.748957.3.57 9.2.531 Unknown [id number] 2.16.840.1.123447.3.57 9.2.531 Unknown [id number] 2.16.840.1.599756.3.57 9.2.531 Social History Date Type Detail Facility Start: 01-15-2021 End: 12-26-2024 Tobacco smoking status Ex-smoker (finding) [facility] Tobacco smoking status Never [facility] Pulsity Sex Assigned At Male [facility] Pulsity Start: 12-26-2024 End: 01-30-2025 Sex Male (finding) [facility] Start: 1965 Sex Assigned At Male F [facility] Tobacco smoking status NHIS Tobacco smoking consumption unknown [facility] Start: 1965 Sex assigned at Not on file [facility] Functional Status Date Assessment Result Facility 10-29-2024 Functional Status N/A [facility] [place] 09-10-2024 Functional Status N/A [facility] 06-11-2024 Functional Status N/A [facility] 06-06-2023 Functional Status N/A [facility] 06-17-2022 Functional Status N/A [facility] 06-10-2022 Functional Status N/A [facility] Clinical Notes 01-21-2022 to 03-18-2025 Note Date & Type Note Facility 03-18-2025 Radiology Diagnostic study note [facility] [address] [place] [address] CT Scan Report Signed Patient: Liz Hernandez MR#: [id number] : 1965 Acct:[id number] Age/Sex: 59 / M ADM Date: 5 Loc: CT Room: Type: [facility] Attending Dr: Colleen Aquino APRN Copies to: [...] with vacuum disc phenomenon L5-S1 and L2-L3. Zlrp-dz-aezndsdv intervertebral space narrowing with mediastinal L3-L5. Multilevel moderate severe facet arthropathy greatest L4-S1. No fracture malalignment multilevel central canal and foraminal encroachment is better evaluated on recent MRI. CT/CT lumbar spine wo con IMPRESSION: Moderate severe multilevel degenerative changes. Negative acute fracture or malalignment Impression dictated by: Christopher Mendes M.D. 03/18/2025 9:20 AM Dictation Location: [place] [address] Transcribed By: [facility] 03/18/25919 Dictated By: Christopher Mendes MD 03/18/2516 Signed By: 03/18/25919 [facility] Work Phone: 01-30-2025 Evaluation note Diagnosis Onset [...] 8:35am Severe back pain acute March 9:02am [facility] Work Phone: 1(674) 794-208305-29-2025 Evaluation note* Diagnosis Onset Date Resolution Status [...] lumbar radiculopathy acute April 23, 2025 10:24am [facility] Work Phone: 1(924) 162-318005-06-2025 History of Present illness Narrative* Michael Ram, [...] due to back and Left LE. 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 Date: documented [facility] this [id number] History of Present illness Narrative* Michael Ram, [...] due to back and Left LE. 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 Date: documented in this [facility]04-24-2025 Evaluation note* Diagnosis Onset Date Resolution Status Admit Date Left lumbar radiculopathy acute December 26, 2024 8:28am Numbness and tingling of foot acute December 26, 2024 8:28am [facility] Work Phone: 1(700) 460-635404-24-2025 Evaluation note* Diagnosis Onset Date Resolution Status Admit Date Left lumbar radiculopathy acute December 26, 2024 8:28am Numbness and tingling of foot acute December 26, 2024 8:28am Left lumbar radiculopathy acute January 30, 2025 10:28am Neurogenic claudication acute M ay 2024 10:28am Numbness and tingling of foot acute January 30, 2025 10:28am [facility] Work Phone: 1(741) 978-504604-24-2025 Evaluation note* Diagnosis Onset Date Resolution Status [...] of foot acute March 04, 2025 8:35am [facility] Work Phone: 1(223) 813-748402-25-2025 NoteGeneral Surgery Office/Clinic Note Chief Complaint consultation [...] tab(s), Oral, Alexus (more content not included)... [facility]Result Comment: Electronically Signed By: JARET CANTOR, Michele Campbell\Date and Time Signed: 10/29/24 08:56 EST 09-10-2024 Hospital Discharge instructions Patient Education 09/10/2024 09:53:34 Kidney Stones, Qbbk-rm-Odzy Kidney Stones Kidney stones are rock-like masses [...] Follow these instructions at home: Medicines Take foit-vdi-kmaltmw and prescription medicines only as told by [...] provider. Document Revised: 04/14/2023 Document Reviewed: 04/14/2023 Arthena Patient Education 2023 [employer]. Follow Up Care 08/15/2024 10:52:33 With:GIOVANA CANTOR, Porsche Kwan, URL Address: [facility] [employer] [address] [place] [id number]- When: Unknown [facility] [phone] NotePatient Education Urology Kidney Stones Kidney stones [...] these instructions at home: Medicines ??? Take knin-opd-yefjrqu and prescription medicines only as told by [...] provider. Document Revised: 04/14/2023 Document Reviewed: 04/14/2023 Arthena Patient Education ? 2023 [employer].[facility] 06-11-2024 Hospital Discharge instructions Patient Education 06/11/2024 [...] you may eat and drink normally. Take jsvb-hky-fwrymym and prescription medicines only as told by your health care provider. Let your health care provider know about any medicines that you are taking, including qggw-end-usyppyb medicines, vitamins, herbs, and supplements. Choose a [...] provider. Document Revised: 02/25/2022 Document Reviewed: 02/25/2022 Arthena Patient Education 2023 [employer]. 06/11/2024 08:23:10 Dietary Guidelines to Help Prevent [...] include: ?8 oz (237 mL) of milk, wrvjcko-omgiovfardam-cvpkm milk, and calcium- fortifiedfruit juice. Calcium-fortified means [...] ?Spinach (cooked), rhubarb, beets, sweet potatoes, and Solomon Islander chard. ?Peanuts. ?Potato chips, citizen of [place] and [place] fries, and baked potatoes with skin on. ?Nuts and nut products. ?Chocolate. If you regularly take a diuretic medicine, make sure to eat at least 1 or 2 servings of fruits or vegetables that are high in potassium each day. These include: ?Avocado. ?Banana. ?[place], prune, carrot, or tomato juice. ?Baked potato. [...] magnesium, fish oil, or vitamin B6. Take tzoj-kxr-viweqmz and prescription medicines only as told by [...] Casseroles. Pizza. Lasagna. Frozen meals. Potato chips. Swazi fries. The items listed above may not [...] provider. Document Revised: 12/01/2022 Document Reviewed: 12/01/2022 Arthena Patient Education 2023 [employer]. Follow Up Care 06/06/2023 09:30:15 With:GIOVANA CANTOR, Porsche Kwan, URL Address: [facility] [employer] [place] [id number]- When: Unknown [facility] [place] [phone] NotePatient Education Nephrology Dietary Guidelines to Help [...] ? 8 oz (237 mL) of milk, irsktnp-dlixsdyiynwk-axwbi milk, and calcium- fortifiedfruit juice. Calcium-fortified means [...] Spinach (cooked), rhubarb, beets, sweet potatoes, and Solomon Islander chard. ? Peanuts. ? Potato chips, citizen of [place] and [place] fries, and baked potatoes with skin on. ? Nuts and nut products. ? Chocolate. ? If you regularly take a diuretic medicine, make sure to eat at least 1 or 2 servings of fruits orvegetables that are high in potassium each day. These include: ? Avocado. ? Banana. ? Daviess, prune, carrot, or tomato juice. ? Baked [...] fish oil, or vitamin B6. ? Take ahvq-rrx-teaboyu and prescription medicines only as told by your health care provider. Theseinclude suppleme (more content not included)...[facility]10-[facility] Hospital Discharge instructions Patient Education 06/06/2023 09:26:04 [...] include: ?8 oz (237 mL) of milk, bugileb-pvregnctnjuc-kxrwv milk, and calcium- fortifiedfruit juice. Calcium-fortified means [...] ?Spinach (cooked), rhubarb, beets, sweet potatoes, and [place] Islander chard. ?Peanuts. ?Potato chips, citizen of [place] and [place] fries, and baked potatoes with skin on. ?Nuts and nut products. ?Chocolate. If you regularly take a diuretic medicine, make sure to eat at least 1 or 2 servings of fruits or vegetables that are high in potassium each day. These include: ?Avocado. ?Banana. ?Daviess, prune, carrot, or tomato juice. ?Baked potato. [...] magnesium, fish oil, or vitamin B6. Take sbts-gny-oemfbna and prescription medicines only as told by [...] Casseroles. Pizza. Lasagna. Frozen meals. Potato chips. Swazi fries. The items listed above may not [...] provider. Document Revised: 05/02/2022 Document Reviewed: 05/02/2022 Arthena Patient Education 2022 [employer]. Follow Up Care 01/21/2022 09:03:45 With:GIOVANA CANTOR, Porsche Kwan, URL Address: [facility] [address] [place], [place] [phone]- When:Within 1 Year(s) Comments:Oksana [facility] [place] [phone] Hospital Discharge instructions Patient Education 06/17/2022 09:35:20 [...] ?Rhubarb. ?Beets. ?Potato chips and citizen of [place] and [place] fries. ?Nuts. If you regularly take a diuretic medicine, make sure to eat at least 1 2 fruits or vegetables high in potassium each day. These include: ?Avocado. ?Banana. ?Daviess, prune, carrot, or tomato juice. ?Baked potato. [...] Casseroles. Pizza. Lasagna. Frozen meals. Potato chips. Swazi fries. Summary You can reduce your risk [...] 12/16/2011 Document Revised: 12/11/2019 Document Reviewed: 08/01/2017 Arthena Patient Education 2020 [employer] Follow Up Care 06/10/2022 10:24:22 With:GIOVANA CANTOR, Porsche Kwan, URL Address: [address] [address]- When:6 months Comments:w/ MT [facility] 10-07-2022 Hospital Discharge instructions Patient Education 06/10/2022 [...] ?Rhubarb. ?Beets. ?Potato chips and citizen of [place] and [place] fries. ?Nuts. If you regularly take a diuretic medicine, make sure to eat at least 1 2 fruits or vegetables high in potassium each day. These include: ?Avocado. ?Banana. ?Daviess, prune, carrot, or tomato juice. ?Baked potato. [...] Casseroles. Pizza. Lasagna. Frozen meals. Potato chips. Swazi fries. Summary You can reduce your risk [...] 12/16/2011 Document Revised: 12/11/2019 Document Reviewed: 08/01/2017 Arthena Patient Education 2019 [employer]. Follow Up Care 05/30/2022 09:25:01 With:GIOVANA CANTOR, Porsche Kwan, URL Address: [address] [place] [address]- When:2 weeks Comments:KUB [facility] [place] [phone] Hospital Discharge instructions Patient Education 01/21/2022 08:33:55 [...] urethra. Follow these instructions at home: Take ryla-dml-lspfxsh and prescription medicines only as told by [...] 08/21/2006 Document Revised: 07/16/2019 Document Reviewed: 09/25/2017 Arthena Patient Education [employer]. Follow Up Care 01/15/2021 08:45:48 With:Porsche AKHTAR MD, URL Address: [facility] [place] [address]- When:01/21/2023 Comments:with PSA and x-ray [facility] Evaluation + Plan note Future Appointments Appointment Date:02/24/2023 08:00:00 AM Scheduled Provider:Porsche AKHTAR MD Location:[facility] Appointment Type:URO Office Visit [facility] Evaluation + Plan note Future Appointments Appointment Date:02/24/2023 08:00:00 AM Scheduled Provider:Porsche AKHTAR MD Location:[facility] Appointment Type:URO Office Visit Future Scheduled Tests Laboratory* PT & PTT 04/20/22 * BUN 04/20/22 * Creatinine 04/20/22 * Electrolyte Panel 04/20/22 * CBC w/ Auto [facility]ments Appointment Date:06/17/2022 09:15:00 AM Scheduled Provider:Porsche AKHTAR MD Location:[facility] Appointment Type:URO Office Visit Appointment Date:02/24/2023 08:00:00 AM Scheduled Provider:Porsche AKHTAR MD Location:[facility] Appointment Type:URO Office Visit [facility] evaluation + Plan note Future Appointments Appointment Date:06/11/2024 08:00:00 AM Scheduled Provider:Porsche AKHTAR MD Location:[facility] Appointment Type:URO Office Visit [facility] evaluation + Plan note Future Appointments Appointment Date:06/10/2025 08:00:00 AM Scheduled Provider:Porsche AKHTAR MD [facility] Appointment Type:URO Office Visit [facility] evaluation noteNo assessment information available [facility] Work Phone: evaluation note* Diagnosis Lumbar [...] this section [facility] Hospital Discharge instructions No data available for this section [facility] instructions[facility]ulatory Orders* Referral to PT / OT / Speech (PT/OT/SP) Location: None [facility] Work Phone: Hospital Discharge instructionsAmbulatory Orders* Referral to Weight Management Location: None [facility] Work Phone: Progress note No data available for this section [facility] (narrative)No reason for referral information [facility] Work Phone: Reason for visit Narrative* Rehabilitation - Outpatient (Routine) - Pending Review Specialty Diagnoses / Procedures Referred By Cindy cyr Referred To Contact Physical Therapy Diagnoses Low back pain, unspecified Procedures [facility] PHYSICAL THERAPY EVALUATION LOW COMPLEX 20 MINS VA OFFICE/OUTPATIENT NEW HIGH MDM 60 MINUTES Colleen Aqunio MD [address] [address] Phone: tel: fax: Michael Ram, PT [address] [address] Phone: tel: fax: Referral ID Status Reason Start Date Expiration Date V isits Requested Visits Authorized [id number] Pending Review 01/01/2025 06/30/2025 2 2 [facility] HealthcareReason for visit Narrative* Rehabilitation - Outpatient (Routine) - Authorized Specialty Diagnoses / Procedures Referred By Cindy cyr Referred To Contact Physical Therapy Diagnoses Low back pain, unspecified Procedures [facility] PHYSICAL THERAPY EVALUATION LOW COMPLEX 20 MINS VA OFFICE/OUTPATIENT NEW HIGH MDM 60 MINUTES Colleen Aquino MD [address] [place] [address] Phone: tel: fax: Michael Ram, PT [address] [address] Phone: tel: fax: Referral ID Status Reason Start Date Expiration Date V isits Requested Visits Authorized [id number] Authorized 01/01/2025 03/03/2025 8 8 [facility] Narrative* Rehabilitation - Outpatient (Routine) - Closed Specialty Diagnoses / Procedures Referred By Cindy cyr Referred To Contact Physical Therapy Diagnoses Low back pain, unspecified Procedures [facility] PHYSICAL THERAPY EVALUATION LOW COMPLEX 20 MINS VA OFFICE/OUTPATIENT NEW HIGH MDM 60 MINUTES Colleen Aquino MD 703 [facility] [address] [place] [address] Phone: tel: fax: Michael Ram, PT 112 [facility] [address] [place] [address] Phone: tel: fax: Referral ID Status Reason Start Date Expiration Date Visits Re quested Visits Authorized [id number] Closed 01/01/2025 03/03/2025 8 8 [facility] [...] December 26, 2024 End: December 26, 2024 Manager New Product Relationship Specialty Start Date End Date Asim Fernandez MD [address] [facility] [place] [phone] PCP - General Family Medicine 01/17/25 Manager New Product Relationship Specialty Start Date End Date Asim Fernandez MD [address] [facility] [place] [phone] PCP - General Family Medicine 01/17/25 Manager New Product Relationship Specialty Start Date End Date Asim Fernandez MD [address] [facility] [place] [phone] PCP - General Family Medicine 01/17/25 Team [...] content) DATE CREATED AUTHOR [facility]/07/2022 [facility] DATE CREATED AUTHOR AUTHOR'S ORGANIZ ATION 10/30/2024 [facility] DATE CREATED AUTHOR AUTHOR'S ORGANIZ ATION 12/15/[address] [facility] DATE CREATED AUTHOR AUTHOR'S ORGANIZ ATION 01/22/2025 [facility] DATE CREATED AUTHOR AUTHOR'S ORGANIZ ATION 04/26/2025 [facility] [employer] [employer] Goals (unrecognized section and content) [...] BE BASED ON THE PRIMARY CLINICAL RECORDS. [facility]. provides no warranty or guarantee of the accuracy or completeness of information in this document.
[2025-05-14 10:59] LABS: Ammonia 11 umol/L (11-32)
[2025-05-14 11:22] LABS: Alanine Aminotransferase 86 U/L (16-63); Albumin Globulin Ratio 1.1; Albumin Level 3.7 g/dL (3.4-5.0); Alkaline Phosphatase 75 U/L (46-116); Anion Gap 8.7; Aspartate Amino Transferase 37 U/L (15-37); Blood Urea Nitrogen 17.0 mg/dL (7.0-18.0); Calcium 8.5 mg/dL (8.5-10.1); Carbon Dioxide 31.1 mmol/L (21.0-32.0); Chloride 103 mmol/L (98-107); Estimated GFR (African America >60 (>=60 mL/min/1.73m^2); Estimated GFR (Non-African Ame >60 (>=60 mL/min/1.73m^2); Free T3 2.20 pg/mL (2.18-3.98); Globulin 3.5 g/dL; Glucose 127 mg/dL (74-106); Potassium 3.8 mmol/L (3.5-5.1); Sodium 139 mmol/L (136-145); Thyroid Stimulating Hormone 2.895 uIU/mL (0.358-3.740); Total Protein 7.2 g/dL (6.4-8.2)
[2025-05-14 12:25] LABS: Folate 39.80 ng/mL (8.60-58.90)
[2025-05-15 11:09] LABS: Vitamin B12 743 pg/mL (232-1245)
== END 2025-05-14 10:09 | disposition home or self-care (01) ==
LOC: LAB 10:08
PROVIDERS: PCP Family Medicine; Visit Provider Family Medicine
DX: R41.82 Altered mental status, unspecified (principal); E03.9 Hypothyroidism, unspecified; I10 Essential (primary) hypertension; R53.83 Other fatigue
CPT/HCPCS: 36415; 80053; 82140; 82607; 82746; 84436; 84443; 84481

== ENCOUNTER 2025-05-28 07:32 | Outpatient (OUT) | payer BC, SELFPAY ==
--- OUTSIDE RECORDS SUMMARY | 2025-05-14 05:30 | XMS_ITS ---
Author Organization [facility] [place] Address [address] [place] [address] Care Team Providers Care Recruitment Officer Name Role Phone Remi Fernandez Primary Care Provider Allergies Allergen (clinical drug ingredient) Drug/Non Drug Allergy documented on EMR Reaction Allergy Type Onset Date Status phentermine Adipex-P just not right Drug Allergy Active Results Component Value Reference Range Notes AMMONIA Reviewed date:05/14/2025 12:39:46 PM Interpretation: Performing Lab: Notes/Report: [facility] , Ammonia 11 11-32 umol/L Performing Lab: see note ML - [facility] REASON FOR VISIT er f/u- Malasie, Petechiae rash, said had a strong ammonia smell with sweating- like somethingurinated on his shirt, Stopped taking the Adipex- things have seemed to be getting better since stopping that Medications Medication SIG (Take, Route, Frequency, Duration) Notes Start Date End Date Status Potassium Chloride ER 10 MEQ 1 capsule with food Orally Twice a day; Duration: 90 days 02/24/2025 Active Olmesartan Medoxomil 40 MG TAKE 1 TABLET BY MOUTH ONCE DAILY Orally Once a day; Duration: 90 days Active traMADol HCl 50 MG 2 tablet as needed O rally TID Herniated lumbar disc; Duration: 30 days 05/13/2025 Active rOPINIRole HCl 0.5 MG 2 tablet 1 to 3 ho urs before bedtime Orally Once a day- may go up to 4 PO QHS; Duration: 30 days 03/05/2024 Active Pravastatin Sodium 20 MG TAKE 1 TABLET B Y MOUTH DAILY; Duration: 90 days Active multivitamin Multiple Vitamins Active Mounjaro 2.5 MG/0.5ML 2.5 mg Subcutaneou s weekly; Duration: 28 days 04/25/2025 Active metFORMIN HCl 500 MG TAKE 1 TABLET BY MO [facility] TWICE DAILY; Duration: 90 days Active Meloxicam 15 MG 1 tablet Orally Once a day; Duration: 90 days 02/24/2025 Active Levothyroxine Sodium 150 MCG TAKE 1 TABLET BY MOUTH EVERY DAY IN THE MORNING ON AN EMPTY STOMACH; Duration: 90 days Active hydrALAZINE HCl 50 MG TAKE 1 TABLET BY M [facility] 3 TIMES DAILY; Duration: 90 Active Glimepiride 4 MG 1 tablet with breakf ast or the first main meal of the day Orally Once a day; Duration: 90 days 10/17/2024 Active Carvedilol 25 MG TAKE 1 AND 1/2 TABLE TS BY MOUTH TWICE DAILY; Duration: 90 Active Blood Glucose Test - use strip to monito r blood glucose levels In Vitro once daily; Duration: 100 days 04/25/2025 Active Lasix 40 MG 1 tablet Orally Once a day; Duration: 30 days 02/24/2025 Active Blood Glucose Meter -- Use glucose monit or daily to monitor glucose lever dx-E11.9; Duration: 365 days 04/25/2025 Active Baclofen 10 MG Oral; Duration: 30 Days Active Aspirin 81 81 MG 1 tablet Orally Once a day Active Albuterol Sulfate HFA 108 (90 Base) MCG/ACT 1 puff as needed Inhalation every 4 hrs Active Social History Tobacco Use: Social History Observation Description Date Details (start date - stop date) Former Smoker 09/04/1979 - 09/04/1989 Tobacco Use/Smoking Question Answer Notes Patient is a former smoker When did you start smoking? 09/04/1979 When did you stop smoking? 09/04/1989 Problems Problem Type SNOMED Code ICD Code Onset Dates Problem Status W/U Status Risk Notes Problem Altered mental status ([id number]) Altered mental status (R41.82) Active confirmed Vital Signs Weight 334.2 lbs 05/14/2025 Height 74 in 05/14/2025 Blood pressure systolic 150 mm Hg 05/14/20 25 Blood pressure diastolic 78 mm Hg 025 BMI 42.9 kg/m2 05/14/2025 Encounters Encounter Location Date Provider Diagnosis [facility] [address] [place] [address] 05/14/2025 Remi Fernandez Altered mental statu s R41.82 Assessments Encounter Date Diagnosis (ICD Code) Assessment Notes Treatment Notes Treatment Clinical Notes Section Notes 05/14/2025 Altered mental status (ICD-10 - R41.82) Plan Of Treatment Pending Test Test Name Order Date VIT B12 AND FOLATE 05/14/2025 MRI BRAIN WO CON 05/14/2025 THYROID PANEL (T4/TSH/FREE T3) CMP (COMP MET BULLARD) w/eGFR CKD-EPI 2024 CBC WITH DIFF 05/14/2025 Next Appt Details Provider Name:Remi Fernandez, 08:30:00 AM, [address] [place], [address], Provider Name:Remi Fernandez, 08:30:00 AM, [address] [place], [address], Progress Notes * Elvis HERNANDEZ LDOB:1965 (59 yo M)Acc No.[id number]:05/14/2025 Progress Note Patient: Elvis BUI Provider: Cristin Fernandez ([facility])MD :1965 A ge:59 Y S ex:Male Date:05/14/2025 Address:[address] [place], [place] [id number] Check In:09:23 AM ESTCheck O ut:09:58 AM EST Subjective: * Chief Complaints: * e r f/u- Malasie, Petechiae rashWife said had a strong ammonia smell with sweating- like something urinated on his shirtStopped taking the Adipex- things have seemed to be getting better since stopping that * HPI: G eneral: Stl hard timefocusing - seems off stil but better has strong ammonia smell with sweating DM- subgar 108. 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 Modified On:06/23/2023 Status:confirmed E11.9 Controlled type 2 di abetes [...] On:01/02/2025U Status:confirmed M79.671 Right foot pain Modified On:02/24/2025/U Status:confirmed R07.9 Chest pain Modified On:05/06/2025/U Status:confirmed R68.83 Chills Modified On:05/06/2025/U Status:confirmed R41.82 Altered mental statu s Modified On:05/14/2025/U Status:confirmed * Medical History: * Surgical History: f istulotomy History of back surgery History of gallbladder surgery History of lithotripsy x7 History of tonsillectomy * Hospitalization/Major Diagno stic Procedure: s ee above * Family History: F ather: alive 89 yrs. M other: alive, dementia, diagnosed with Diabetes mellitus without mention of complication, type II or unspecified type, not stated as uncontrolled. B rother(s): alive, diagnosed with Diabetes mellitus without mention of complication, type II or unspecified type, not stated as uncontrolled. S ister(s): alive. S on(s): alive. D michaeler(s): alive. Migrated Family History:: Family history of [...] stop smoking? 0 09/04/1989 * Medications: T akingAlbuterol Sulfate HFA 108 (90 Base) MCG/ACT Aerosol Solution 1 puff as needed Inhalation every 4 hrs Aspirin 81(Aspirin) 81 MG Tablet Delayed Release 1 tablet Orally Once a day Baclofen 10 MG Tablet Oral Blood Glucose Meter -- -- Use glucose monitor daily to monitor glucose lever dx-E11.9 Blood Glucose Test - Strip use [...] as needed Orally TID Herniated lumbar disc Taking Albuterol Sulfate HFA 108 (90 Base) MCG/ACT Aerosol Solution 1 puff as needed Inhalation every 4 hrs Taking Aspirin 81(Aspirin) 81 MG Tablet Delayed Release 1 tablet Orally Once a day Taking Baclofen 10 MG Tablet Oral Taking Blood Glucose Meter -- -- Use glucose monitor daily to monitor glucose lever dx-E11.9 Taking Blood Glucose Test - Strip [...] as needed Orally TID Herniated lumbar disc DiscontinuedAdipex-P(Phentermine HCl) 37.5 MG Tablet 1 tablet before breakfast Orally Once a day Medication List reviewed and reconciled with the patientDiscontinued Adipex-P(Phentermine HCl) 37.5 MG Tablet 1 tablet before breakfast Orally Once a day Medication List reviewed and reconciled with the patient * Allergies: A dipex-P: just not right - Allergyno[Allergies Verified] Objective: * Vitals: W t:334.2lbs, Ht: 74 in, BP:150/78mm Hg, BMI:42.9Index, Ht-cm: 187.96 cm, Wt-k.59 kg. * Examination: P hysical Exam: GENERAL: [...] mood and affect. Assessment: * Assessment: 1. A ltered mental status - R41.82 (Primary) Plan: * Treatment: * Labs: * L ab: AMMONIA (Collection Date & Time - 05/14/2025 10:35 AM) * Procedure Codes: * Preventive Medicine: Screenings/Counseling: B NH ACTION PLAN Above Normal BMI Follow-up D ietary management education, guidance, and counseling * * Sign off status: Completed Visit Status: C HK (Check Out) true * Provider: Cristin Fernandez ([facility])MD Date: 0 05/14/2025 Generated for Printi ng/Faxing/eTransmitting on: 0 05/28/2025 07:34 AM EDT History and Physical Notes * HPI (History of Present Illness) Category Sub-Category Detail Notes Category Not es General Stl hard timefocusing - seems off stil but better has strong ammonia smell with sweating DM- subgar 108 Examination Category Sub-Category Detail Notes Category Not [...]
--- OUTSIDE RECORDS SUMMARY | 2025-05-22 07:48 | XMS_ITS ---
Author Organization [facility] in [place] Address [address] [place] [address] Care Team Providers Care Wire Loop Machine Operator Name Role Phone Remi Fernandez Primary Care Provider Encounters Encounter Location Date Provider Diagnosis [facility] [address] [place] [address] 05/22/2025 Remi Fernandez Encounter for other preprocedural examination Z01.818 Assessments Encounter Date Diagnosis (ICD Code) Assessment Notes Treatment Notes Treatment Clinical Notes Section Notes 05/22/2025 Encounter for other preprocedural examination (ICD-10 - Z01.818) Plan Of Treatment Pending Test Test Name Order Date XR Orbits (4 views) 05/22/2025 Next Appt Details Provider Name:Remi Fernandez, 08:30:00 AM, [address] , [place], [place], [address], Provider Name:Remi Fernandez, 08:30:00 AM, [address] , [place], [place], [address], Progress Notes * HERONElvis LDOB:1965 (59 yo M)Acc No.[id number]:05/22/2025 Patient: Elvis BUI :1965 A ge:59 Y S ex:Male Address:[address] [place] [address] [address], [place], [address] Subjective: * Chief Complaints: * * Medical History: * Surgical History: * Hospitalization/Major Diagno stic Procedure: * Medications: Objective: * Vitals: * Physical Examination: Assessment: * Assessment: 1. E ncounter for other preprocedural examination - Z01.818 (Primary) Plan: * Treatment: * Procedure Codes: * true * Date: Generated for Richi thompson/Vance/Thomasitting on: 0 05/28/2025 07:34 AM EDT
--- OUTSIDE RECORDS SUMMARY | 2025-05-26 04:30 | XMS_ITS ---
Author Organization [facility] in [place] Address [address] [place] [address] Care Team Providers Care Nuisance Wildlife Specialist Name Role Phone Remi Fernandez Primary Care Provider Allergies Allergen (clinical drug ingredient) Drug/Non Drug Allergy documented on EMR Reaction Allergy Type Onset Date Status phentermine Adipex-P altered mental status Drug Allergy Active REASON FOR VISIT Presents to office with for 1 month follow up on weight Medications Medication SIG (Take, Route, Frequency, Duration) Notes Start Date End Date Status Potassium Chloride ER 10 MEQ 1 capsule with food Orally Twice a day; Duration: 90 days 02/24/2025 Active Pravastatin Sodium 20 MG TAKE 1 TABLET B Y MOUTH DAILY; Duration: 90 days Active rOPINIRole HCl 0.5 MG 2 tablet 1 to 3 ho urs before bedtime Orally Once a day- may go up to 4 PO QHS; Duration: 30 days 03/05/2024 Active traMADol HCl 50 MG 2 tablet as needed O rally TID Herniated lumbar disc; Duration: 30 days 05/14/2025 Active Mounjaro 5 MG/0.5ML 5 mg Subcutaneous we ekly; Duration: 28 days 04/25/2025 Active Levothyroxine Sodium 150 MCG TAKE 1 TABLET BY MOUTH EVERY DAY IN THE MORNING ON AN EMPTY STOMACH; Duration: 90 days Active Meloxicam 15 MG 1 tablet Orally Once a day; Duration: 90 days 02/24/2025 Active metFORMIN HCl 500 MG TAKE 1 TABLET BY MO UTH TWICE DAILY; Duration: 90 days Active multivitamin Multiple Vitamins Active Olmesartan Medoxomil 40 MG TAKE 1 TABLET BY MOUTH ONCE DAILY Orally Once a day; Duration: 90 days Active Lasix 40 MG 1 tablet Orally Once a day; Duration: 30 days 02/24/2025 Active Carvedilol 25 MG TAKE 1 AND 1/2 TABLE TS BY MOUTH TWICE DAILY; Duration: 90 Active Glimepiride 4 MG 1 tablet with breakf ast or the first main meal of the day Orally Once a day; Duration: 90 days 10/17/2024 Active hydrALAZINE HCl 50 MG TAKE 1 TABLET BY M OUTH 3 TIMES DAILY; Duration: 90 Active Blood Glucose Test - use strip to monito r blood glucose levels In Vitro once daily; Duration: 100 days 04/25/2025 Active Albuterol Sulfate HFA 108 (90 Base) MCG/ACT 1 puff as needed Inhalation every 4 hrs Active Aspirin 81 81 MG 1 tablet Orally Once a day Active Baclofen 10 MG Oral; Duration: 30 Days Active Blood Glucose Meter - Use glucose monito r daily to monitor glucose lever dx-E11.9; Duration: 365 days 04/25/2025 Active Social History Tobacco Use: Social History Observation Description Date Details (start date - stop date) Former Smoker 09/04/1979 - 09/04/1989 Tobacco Use/Smoking Question Answer Notes Patient is a former smoker When did you start smoking? 09/04/1979 When did you stop smoking? 09/04/1989 AUDIT-C (Standard) Question Answer Notes Did you have a drink containing alcohol in the p ast year? No Points 0 Interpretation Negative Vital Signs Weight 337.8 lbs 05/26/2025 Height 74 in 05/26/2025 Blood pressure systolic 154 mm Hg 05/26/20 25 Blood pressure diastolic 86 mm Hg 025 BMI 43.37 kg/m2 05/26/2025 Encounters Encounter Location Date Provider Diagnosis [facility] [address] [place] [address] 05/26/2025 Remi Hoy Hypertension I10 ; Herniated lumbar disc without myelopathy M51.26 ; Controlled type 2 diabetes mellitus E11.9 and Hypothyroidism, unspecified E03.9 Assessments Encounter Date Diagnosis (ICD Code) Assessment Notes Treatment Notes Treatment Clinical Notes Section Notes 05/26/2025 Hypertension (ICD-10 - I10) 05/26/2025 Herniated lumbar disc without myelopathy (ICD-10 - M51.26) 05/26/2025 Controlled type 2 diabetes mellitus (ICD-10 - E11.9) change to 7.5 in a month 120-130 - needs inc in doses some int he 115 05/26/2025 Hypothyroidism, unspecified (ICD-10 - E03.9) Plan Of Treatment Medication Medication Name Sig Start Date Stop Date Notes Mounjaro 5 MG/0.5ML 5 mg Subcutaneous we ekly; Duration: 28 days 04/25/2025 Treatment Notes Assessment Notes Controlled type 2 diabetes mellitus change to 7.5 in a month 120-130 - needs inc in doses some int he 115 Next Appt Details Provider Name:Remi Fernandez, 08:30:00 AM, [address] , [facility], [place], [address], Provider Name:Remi Fernandez, 08:30:00 AM, [address] [facility], [facility], [place], [address], Progress Notes * Elvis HERNANDEZ LDOB:1965 (59 yo M)Acc No.[id number]:05/26/2025 Progress Note Patient: Elvis BUI Provider: Cristin Fernandez ([facility])MD :1965 A ge:59 Y S ex:Male Date:05/26/2025 Address:[address] [place], [place] [address] Check In:08:28 AM ESTCheck O ut:09:05 AM EST Subjective: * Chief Complaints: * P resents to office with for 1 month follow up on weight * HPI: G eneral: Back on planet earth - back to normal self. * ROS: E ENT: hearing changes d [...] Hyperlipidemia Modified On:06/23/2023U Status:confirmed I10 Hypertension Modified On:06/23/2023 Status:confirmed G47.33 MARGE (obstructive sle ep apnea) Modified On:06/23/2023 Status:confirmed D23.9 Dermatofibroma Modified On:06/23/2023U Status:confirmed N20.0 [...] On:05/06/2025U Status:confirmed R68.83 Chills Modified On:05/06/2025U Status:confirmed R41.82 Altered mental statu s Modified On:05/14/2025W/U Status:confirmed * Medical History: * Surgical History: [...] hen did you stop smoking? 0 09/04/1989 D rug/Alcohol: A MORTEZA-C (Standard) D id you have a drink containing alcohol in the past year? N o P oints 0 I nterpretation N egative * Medications: T akingAlbuterol Sulfate HFA 108 (90 Base) MCG/ACT Aerosol Solution 1 puff as needed Inhalation every 4 hrs Aspirin 81(Aspirin) 81 MG Tablet Delayed Release 1 tablet Orally Once a day Baclofen 10 MG Tablet Oral Blood Glucose Meter - - Use glucose monitor daily to monitor glucose [...] List reviewed and reconciled with the patientTaking Albuterol Sulfate HFA 108 (90 Base) MCG/ACT Aerosol Solution 1 puff as needed Inhalation every 4 hrs Taking Aspirin 81(Aspirin) 81 MG Tablet Delayed Release 1 tablet Orally Once a day Taking Baclofen 10 MG Tablet Oral Taking Blood Glucose Meter - - Use glucose monitor daily to monitor glucose [...] with the patient * Allergies: A dipex-P: altered mental status - Allergy Objective: * Vitals: W t:337.8lbs, Ht: 74 in, BP:154/86mm Hg, BMI:43.37Index. * Examination: P hysical Exam: GENERAL: w [...] mood and affect. Assessment: * Assessment: 1. H ypertension - I10 (Primary) 2 . H erniated lumbar disc without myelopathy - M51.26 3 . C ontrolled type 2 diabetes mellitus - E11.9 4 . H ypothyroidism, unspecified - E03.9 Plan: * Treatment: * Procedure Codes: * Preventive Medicine: Screenings/Counseling: B MN ACTION PLAN Above Normal BMI Follow-up D ietary management education, guidance, and counseling See treatment section of progress note for complete details of management plan. * * Sign off status: Completed Visit Status: C HK (Check Out) true * Provider: Cristin Fernandez ([facility])MD Date: 0 05/26/2025 Generated for Printi ng/Faxing/eTransmitting on: 0 05/28/2025 07:35 AM EDT History and Physical Notes * HPI (History of Present Illness) Category Sub-Category Detail Notes Category Not es General Back on planet earth - back to normal self Examination Category Sub-Category Detail Notes Category Not [...]
--- OUTSIDE RECORDS SUMMARY | 2025-05-28 07:34 | XMS_ITS | Clinical Summary ---
Author Organization [facility] Address [address] [place] [address] Care Team Providers Care Assembly Adjuster Name Role Phone Asim Fernandez MD Primary Care Provider [phone] Social History Tobacco Use Types Packs/Day Years [...] (#1) 2025 Insurance [employer] Care Teams Assembly Adjuster Relationship Specialty Start Date End Date Asim Fernandez MD [address] [place] [id number] PCP - General Family Medicine 01/17/25
--- NOTE | 2025-05-28 07:35 | MR_ITS ---
The [address] [address] Patient Name: LIZ SHELBY MRN: [id number] date: 1965 Sex: M Assigned Patient Location: RAD Current Patient Location: RAD Accession/Order Number: [id number] Exam Date: 05/28/2025 08:15 Report Date: 05/28/2025 15:43 At the request of: NANCY VERDIN MD Procedure: MR head/brain wo con EXAMINATION: MRI OF THE BRAIN WITHOUT CONTRAST CLINICAL HISTORY: Altered Mental Status R41.52 COMPARISON: CT head 05/08/2025 TECHNIQUE: Multiecho, multiplanar imaging of the brain was performed contrast FINDINGS: No restricted diffusion. Ventricles and sulci mildly prominent configuration for the patient's age due to central involutional change. Findings appear most pronounced within the frontal lobes.. No shift of midline structure. Basal cisterns are patent. Minor periventricular subcortical T2 prolongation just of chronic small vessel ischemic disease. No abnormal GRE signal. Partially empty sella turcica. Major intracranial intravascular flow was preserved. Etqr-yr-nfvgxtox ethmoid sinus mucosal thickening. Minimal polypoid changes both maxillary sinuses. MR/MR head/brain wo con IMPRESSION: Mild central change with minimal chronic small vessel ischemic disease. Negative acute intracranial process by MRI. Impression dictated by: Christopher Mendes M.D. 05/28/2025 3:43 PM Dictation Location: [place] [address] Electronically authenticated by: [id number] Y Date: 05/28/2025 15:43
--- OUTSIDE RECORDS SUMMARY | 2025-05-28 07:35 | XMS_ITS | Clinical Summary ---
Author Organization [facility] Address [id number] [place] [address] Care Team Providers Care Senior Cognos Developer Name Role Phone Unavailable Primary Care Provider [...]
--- OUTSIDE RECORDS SUMMARY | 2025-05-28 07:35 | XMS_ITS | CCD ---
Author Organization [facility] CliniSyvt Care Team Providers Care Acute Care Surgeon Name Role Phone Asim Fernandez Primary Care [...] Asim Fernandez MD Primary Care Provider Turovskaya PROPERTY CONTROLLER, Colleen Attending Provider Unavailable Primary Care Provider [facility] Asim Fernandez MD Primary Care [...] Attending Provider Tanisha Ocampo DO Attending Provider [phone] Asim Fernandez MD Primary Care Provider Colleen [...] of [facility] [place] Medications Current Medications Medication Drug Class(es) Dates [...] 30 cap(s), Refills(s) 2, Pharmacy: [id number], 188, cm, 06/10/22 9:57:00 EDT, Height/Length Dosing, [...] Start: 02-19-2019 take 2 tablets by mo [facility] once daily in the morning hydrochlorothiazide [...] 02-19-2019 Episodic Other aftercare (1 source) Other residential (current) drug therapy; Translations: [OTH HALF-WAY CURRENT DRUG THERAPY] Onset: 05-31-20 Episodic Other aftercare (1 source) 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 Zpnc-nf-zlvagzim intervertebral space narrowing with mediastinal L3-L5. Multilevel moderate severe facet arthropathy greatest L4-S1. No fracture malalignment multilevel central canal and foraminal encroachment is better evaluated on recent MRI. CT/CT lumbar spine wo con IMPRESSION: Moderate severe multilevel degenerative changes. Negative acute fracture or malalignment Impression dictated by: Christopher Mendes M.D. 03/18/2025 9:20 AM Dictation Location: [place] [address] Transcribed By: [facility] 03/18/25 0920 Dictated By: Christopher Mendes MD 03/18/25 0916 Signed By: 03/18/25 0920 Normal [facility] MR lumbar spine wo conon MR lumbar spine wo con [facility] [place] [address] [place] [address] MRI Report Signed Patient: Liz Hernandez MR#: [id number] 5 : 1965 Acct:[id number] Age/Sex: 59 / M ADM Date: 02/28/25 Loc: Room: Type: [facility] Attending Dr: Colleen Aquino APRN Copies [...] Figueroa M.D. 02/28/2025 10:53 AM Dictation Location: [place] [address] Transcribed By: ARNULFO 02/28/25 1053 Dictated By: Liz Figueroa II, MD 02/28/25 1044 Signed By: 02/28/25 1053 Normal [facility] Magnetic resonance imaging r eportOrdered By: Liz Figueroa on 02-28-2025 Study report [facility] [place] [address] [place] [address] MRI Report Signed Patient: Liz Hernandez MR#: [id number] : 1965 Acct:[id number] Age/Sex: 59 / M ADM Date: 5 [...] Figueroa M.D. 02/28/2025 10:53 AM Dictation Location: [place] [address] Transcribed By: ARNULFO 02/28/25 1053 Dictated By: Liz Figueroa II, MD 02/28/25 1044 Signed By: 02/28/25 1053 [facility] Work Phone: X-ray reportOrdered By: Foreign Mcqueen on 12-26-2024 Study report [facility] [address] [address] XRay Report Signed Patient: Liz Hernandez MR#: [id number] : 1965 Acct:[id number] Age/Sex: 59 / M ADM Date: 5 Loc: XD Room: Type: REG CLI Attending Dr: Colleen Aquino PROPERTY CONTROLLER Copies to: Colleen Aquino APRN~ Ordering Provider: [...] Mcqueen Jr., D.OCullen12/26/2024 2:42 PM Dictation Location: [place] [address] Transcribed By: [facility] 12/26/24 1442 Dictated By: Chi Mcqueen Jr, DO 12/26/24 1441 Signed By: 12/26/24 1442 [facility] XR lumbar spine 6V w bending on 12-26-2024 XR lumbar spine 6V w bending [facility] [address] [address] XRay Report Signed Patient: Liz Hernandez MR#: [id number] 5 : 1965 Acct:[id number] Age/Sex: 59 / M ADM Date: 12/26/24 Loc: XD Room: Type: REG CLI Attending Dr: Colleen Aquino PROPERTY CONTROLLER Copies to: Colleen Aquino APRN Ordering Provider: Colleen Turovskaya, PROPERTY CONTROLLER Date of Service: 12/26/24 XR/XR lumbar spine [...] Mcqueen Jr., D.O.12/26/2024 2:42 PM Dictation Location: [place] [address] Transcribed By: [facility] 12/26/24 1442 Dictated By: Chi Mcqueen Jr, DO 12/26/24 1441 Signed By: 12/26/24 1442 Normal [facility] Ambulatory Visit Summaryon 0 10-29-2024 Ambulatory Visit [...] CANTOR, Porsche Kwan Where: [facility] [address] [place] [address]- Medications What How Much When Instructions Unchanged [...] for choosing us for your care. Normal [facility] Reminderson 10-29-2024 Reminders Reminders From: Alexia Vega LPN To: GSN - Clinical; Sent: 10/29/2024 09:31:53 EST Show up: 02/16/2029 07:00:00 EDT Subject: colonoscopy recall Due Date/Time: 03/04/2029 07:00:00 EDT Reminder/Recall Patient is due for screening colonoscopy 03/2029. Normal [facility] Urology Office/Clinic Noteon 09-12-2024 Urology Office/Clinic [...] Urnls Dip Stick Auto w/o Microscopy POC 91818 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 Normal [facility] Comment on above: Result Comment: [...] Porsche AKHTAR MD Where: [facility] Andrew [address] [place] [address]- You Need to Schedule the Following Appointments Follow Up with Porsche AKHTAR MD, URL When: Where: [address] [address]- Medications What How Much When [...] Elevated PSA History of procedure Hx of residential use of blood thinners Hyperuricosuria Hypocitraturia Kidney [...] bladder. (more content not included)... Normal [facility] Ambulatory Visit Summaryon 1 Ambulatory Visit [...] Porsche AKHTAR MD Where: [facility] [address] 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 (more content not included)... Normal [facility] Urology Office/Clinic Noteon 06-11-2024 Urology Office/Clinic [...] read as negative at the [facility] but to my review there may [...] Information GIOVANA CANTOR, Porsche Kwan, URL [address] [place] [address]- Additional Instructions: 1 yr with KUB and [...] with voice recognition artificial intelligence software, specifically Kynded, Videoflot and or Onzo. Substitutions may have occurred due to the inherent limitations of voice recognition and artificial intelligence software. Problem List/Past Medical History Ongoing BMI 40.0-44.9, adult BPH (benign prostatic hyperplasia) Chronic anticoagulation Dermatofibroma of left upper arm Diabetes mellitus type 2, noninsulin dependent Elevated PSA Hx of residential use of blood thinners Kidney stone Nocturia Osteoarthritis Historical GERD (gastroesophag (more content not included)... Normal [facility] Comment on above: Result Comment: [...] by: MANSOOR LIMA Date: 2022-06-16 18:56 Normal [facility] XR KUB 1 VIEWon 06-09-2022 XR [...] Date: 2022-06-09 17:41 Normal The [facility] CBC AUTO DIFFon 05-29-2022 BASO # 0.1 103/ul Normal 0.0-0.1 [facility] Comment on above: Performed By: #### C BC ####[facility] [address] [place], [place] [address]GnCullen Aldrich Basophils/100 WBC (Bld) 0.2 % Normal 0.2-2.0 [facility] Comment on above: Performed By: #### C BC ####[facility] [address] [place] [id number]. Wyatt Aldrich EO # 0.0 103/ul Normal 0.0-0.7 [facility] Comment on above: Performed By: #### C BC ####[facility] [address] [place] [address]Dr. Wyatt Aldrich Eosinophils/100 WBC (Bld) 0.2 % Critically low 0.9-7.0 [facility] Comment on above: Performed By: #### C BC ####[facility] [address] [place], [place] [address]Dr. Wyatt Aldrich Erythrocyte distribution width (RBC) [Ratio] 12.3 % Normal 11.0-15.0 [facility] Comment on above: Performed By: #### C BC ####[facility] [address] [place], [place] [address]Dr. Wyatt Aldrich Hematocrit (Bld) [Volume fraction] 45.9 % Normal 42.0-54.0 [facility] Comment on above: Performed By: #### C BC ####[facility] [address] [place] [address]Dr. Wyatt Aldrich Hemoglobin (Bld) [Mass/Vol] 15.2 g/dL Normal 14.0-18.0 [facility] Comment on above: Performed By: #### C BC ####[facility] [address] [place] [address]Dr. Wyatt Aldrich IG # 0.09 10e3/ul Critically high 0.00-0.03 [facility] Comment on above: Performed By: #### C BC ####[facility] [address] [place] [address]Dr. Wyatt Aldrich IG % 0.4 % Normal 0.0-0.5 [facility] Comment on above: Performed By: #### C BC ####[facility] [address] [place], [place] [address]Dr. Wyatt Aldrich LYMPH # 1.1 103/ul Critically low 1.2-3.8 [facility] Comment on above: Performed By: #### C BC ####[facility] [address] [place] [address]Dr. Wyatt Valdemar Lymphocytes/100 WBC (Bld) 5.1 % Critically low 20.5-60.0 [facility] Comment on above: Performed By: #### C BC ####[facility] [address] [place] [address]Dr. Jossielalo Aldrich MANUAL DIFF REQ NO Normal [facility] Comment on above: Performed By: #### C BC ####[facility] [address] [place] [address]Dr. Wyatt Valdemar MCH (RBC) [Entitic mass] 30.2 pg Normal 25.9-34.0 [facility] Comment on above: Performed By: #### C BC ####[facility] [address] [place], [place] [address]Dr. Jossielalo Aldrich MCHC (RBC) [Mass/Vol] 33.1 g/dL Normal 29.9-35.2 [facility] Comment on above: Performed By: #### C BC ####[facility] [address] [place], [place] [address]Dr. Wyatt Valdemar MCV (RBC) [Entitic vol] 91.3 fL Normal 80.0-94.0 [facility] Comment on above: Performed By: #### C BC ####[facility] [address] [place], [place] [address]Dr. Wyatt Aldrich MONO # 1.4 103/ul Critically high 0.3-0.8 [facility] Comment on above: Performed By: #### C BC ####[facility] [address] [place], [place] [address]Dr. Jossielalo Aldrich Monocytes/100 WBC (Bld) 6.7 % Normal 1.7-12.0 [facility] Comment on above: Performed By: #### C BC ####[facility] [address] [place], [place] [address]Dr. Wyatt Aldrich NEUT # 18.5 103/ul Critically high 1.4-6.5 [facility] Comment on above: Performed By: #### C BC ####[facility] [address] [place], [place] [address]Qp. Wyatt Aldrich Neutrophils/100 WBC (Bld) 87.4 % Critically high 43.0-75.0 [facility] Comment on above: Performed By: #### C BC ####[facility] [address] [place], [place] [address]Ss. Wyatt Aldrich Platelet mean volume (Bld) [Entitic vol] 9.3 fL Critically low 9.5-13.5 [facility] Comment on above: Performed By: #### C BC ####[facility] [address] [place], [place] [address]Ue. Wyatt Aldrich PLT 303 103/ul Normal 150-450 [facility] Comment on above: Performed By: #### C BC ####[facility] [address] [place], [place] [address]Of. Wyatt Aldrich RBC 5.03 106/ul Normal 4.70-6.10 [facility] Comment on above: Performed By: #### C BC ####[facility] [address] [place], [place] [address]Tg. Wyatt Aldrich WBC 21.2 103/ul Critically high 4.0-11.0 [facility] Comment on above: Performed By: #### C BC ####[facility] [address] [place], [place] [address]Y[address]. Wy[address] CT ABD/PELVIS WO CONon 05-29 [...] by: BOO GUZMAN Date: 2022-05-29 17:32 Normal [facility] ER URINE PROFILEon 2 Bilirubin Ql (U) Negative Normal NEGATIVE [facility] Comment on above: Performed By: #### U MICRO, ERUR #### [facility] [address] [place] [address] Dr. Wyatt Aldrich Clarity (U) CLEAR Normal CLEAR [facility] Comment on above: Performed By: #### U MICRO, ERUR #### [facility] [address] [place] [address] Dr. Wyatt Aldrich Color (U) LT. YELLOW Normal YELLOW [facility] Comment on above: Performed By: #### U MICRO, ERUR #### [facility] [address] [place] [address] [address] Wyatt [place] A micrscopic examination will be performed if indicated. Normal [facility] Comment on above: Performed By: #### U MICRO, ERUR #### [facility] [address] [place] [address] [address] Wyatt Aldrich Glucose Ql (U) Negative Normal NEGATIVE [facility] Comment on above: Performed By: #### U MICRO, ERUR #### [facility] [address] [place] [address] [address] Wyatt Aldrich Hemoglobin Ql (U) TRACE-INTACT Abnormal NEGATIVE [facility] Comment on above: Performed By: #### U MICRO, ERUR #### [facility] [address] [place] [address] Dr. Wyatt Aldrich Ketones Ql (U) Negative Normal NEGATIVE [facility] Comment on above: Performed By: #### U MICRO, ERUR #### [facility] [address] [place] [address] Dr. Wyatt Aldrich LEUKOCYTES Negative Normal NEGATIVE [facility] Comment on above: Performed By: #### U MICRO, ERUR #### [facility] [address] [place] [address] Dr. Wyatt Aldrich Nitrite Ql (U) Negative Normal NEGATIVE [facility] Comment on above: Performed By: #### U MICRO, ERUR #### [facility] [address] [place] [address] Dr. Wyatt Aldrich pH (U) 7.0 [pH] Normal 5-9 [facility] Comment on above: Performed By: #### U MICRO, ERUR #### [facility] [address] [place] [address] Dr. Wyatt Aldrich SPEC GRAVITY 1.020 Normal 1.005-<=1.025 [facility] Comment on above: Performed By: #### U MICRO, ERUR #### [facility] [address] [place] [address] Dr. Wyatt Aldrich UA PROTEIN Negative Normal NEGATIVE/ TRACE [facility] Comment on above: Performed By: #### U MICRO, ERUR #### [facility] [address] [place] [address] Dr. Wyatt Aldrich UR MICRO IND INDICATED Normal [facility] Comment on above: Performed By: #### U MICRO, ERUR #### [facility] [address] [place] [address] Dr. Wyatt Aldrich Urobilinogen Qn (U) 0.2 {Sharon'U}/dL Normal 0.2 - 1. 0 [facility] Comment on above: Performed By: #### U MICRO, ERUR #### [facility] [address] [place] [address] Dr. Wyatt Aldrich PROF 14(COMP METB)on 022 Albumin [Mass/Vol] 3.9 g/dL Normal 3.4-5.0 [facility] Comment on above: Performed By: #### C MP #### [facility] [address] [place] [address] Dr. Wyatt Aldrich Albumin/Globulin [Mass ratio] 1.1 {ratio} Normal [facility] Comment on above: Performed By: #### C MP #### [facility] [address] [place] [address] Dr. Wyatt Aldrich ALP [Catalytic activity/Vol] 70 U/L Normal 46-116 [facility] Comment on above: Performed By: #### C MP #### [facility] [address] [place] [address] Dr. Wyatt Aldrich ALT [Catalytic activity/Vol] 38 U/L Normal 16-63 [facility] Comment on above: Performed By: #### C MP #### [facility] [address] [place] [address] Dr. Wyatt Aldrich Anion gap [Moles/Vol] 12.6 mmol/L Normal [facility] Comment on above: Performed By: #### C MP #### [facility] [address] [place] [address] Dr. Wyatt Aldrich AST [Catalytic activity/Vol] 20 U/L Normal 15-37 [facility] Comment on above: Performed By: #### C MP #### [facility] [address] [place] [address] Dr. Wyatt Aldrich Bilirubin [Mass/Vol] 0.6 mg/dL Normal 0.2-1.0 [facility] Comment on above: Performed By: #### C MP #### [facility] [address] [place] [address] Dr. Wyatt Aldrich Calcium [Mass/Vol] 8.7 mg/dL Normal 8.5-10.1 [facility] Comment on above: Performed By: #### C MP #### [facility] [address] [place] [address] [address] Wyatt Aldrich Chloride [Moles/Vol] 95 mmol/L Critically low 98-107 [facility] Comment on above: Performed By: #### C MP #### [facility] [address] [place] [address] Dr. Wyatt Aldrich CO2 [Moles/Vol] 29.9 mmol/L Normal 21.0-32.0 [facility] Comment on above: Performed By: #### C MP #### [facility] [address] [place] [address] [address] Wyatt Aldrich Creatinine [Mass/Vol] 1.04 mg/dL Normal 0.70-1.30 [facility] Comment on above: Performed By: #### C MP #### [facility] [address] [place] [address] [address] Wyatt Aldrich EGFR-AF CAMEROONIAN >60 Normal >=60 [facility] Comment on above: Performed By: #### C MP #### [facility] [address] [place] [address] [address] Wyatt Aldrich EGFR-NON AF CAMEROONIAN >60 Normal >=60 [facility] Comment on above: Performed By: #### C MP #### [facility] [address] [place] [address] Dr. Wyatt Aldrich Globulin (S) [Mass/Vol] 3.4 g/dL Normal [facility] Comment on above: Performed By: #### C MP #### [facility] [address] [place] [address] [address] Wyatt Aldrich Glucose [Mass/Vol] 148 mg/dL Critically high 74-106 [facility] Comment on above: Performed By: #### C MP #### [facility] [address] [place] [address] Dr. Wyatt Aldrich Potassium [Moles/Vol] 4.5 mmol/L Normal 3.5-5.1 [facility] Comment on above: Performed By: #### C MP #### [facility] [address] [place] [address] [address] Wyatt Aldrich Protein [Mass/Vol] 7.3 g/dL Normal 6.4-8.2 [facility] Comment on above: Performed By: #### C MP #### [facility] [address] [place] [address] [address] Wyatt Aldrich Sodium [Moles/Vol] 133 mmol/L Critically low 136-145 [facility] Comment on above: Performed By: #### C MP #### [facility] [address] [place] [address] [address] Wyatt Aldrich Urea nitrogen [Mass/Vol] 15.0 mg/dL Normal 7.0-18.0 [facility] Comment on above: Performed By: #### C MP #### [facility] [address] [place] [address] Dr. Wyatt Aldrich Urea nitrogen/Creatinine [Mass ratio] 14.4 mg/mg Normal [facility] Comment on above: Performed By: #### C MP #### [facility] [address] [place] [address] Dr. Wyatt Aldrich URINE MICROSCOPIC ONLYon BACTERIA NONE SEEN Normal NONE SEEN [facility] Comment on above: Performed By: #### U MICRO, ERUR #### [facility] [address] [place] [address] Dr. Wyatt Aldrich Bacteria identified Cx Nom (U) NOT INDICATED Normal [facility] Comment on above: Performed By: #### U MICRO, ERUR #### [facility] [address] [place] [address] Dr. Wyatt Aldrich CAST NONE SEEN Normal NONE SEEN [facility] Comment on above: Performed By: #### U MICRO, ERUR #### [facility] [address] [place] [address] Dr. Wyatt Aldrich Crystals LM Nom (Urine sed) NONE SEEN Normal NONE SEEN [facility] Comment on above: Performed By: #### U MICRO, ERUR #### [facility] [address] [place] [address] Dr. Wyatt Aldrich Epithelial cells LM Ql (Urine sed) NONE SEEN Normal NONE SEEN /RARE [facility] Comment on above: Performed By: #### U MICRO, ERUR #### [facility] [address] [place] [address] Dr. Wyatt Aldrich MUCOUS NONE SEEN Normal NONE SEEN [facility] Comment on above: Performed By: #### U MICRO, ERUR #### [facility] [address] [place] [address] Dr. Wyatt Aldrich RBC 2-5 Abnormal 0-2 [facility] Comment on above: Performed By: #### U MICRO, ERUR #### [facility] [address] [place] [address] [address] Wyatt Aldrich WBC NONE SEEN Normal NONE SEEN [facility] Comment on above: Performed By: #### U MICRO, ERUR #### [facility] [address] [place] [address] [address] Wyatt Aldrich T4 LABCORPon 01-29-2022 T4 [Mass/Vol] 9.1 ug/dL Normal 4.5-12.0 [facility] Comment on above: Performed By: #### T 4LC ####[facility] [address] [place] [address]Dr. Wyatt Aldrich CBC AUTO DIFFon 01-28-2022 BASO # 0.1 103/ul Normal 0.0-0.1 [facility] Comment on above: Performed By: #### C BC ####[facility] [address] [place], [place] [address]DrCullen Aldrich Basophils/100 WBC (Bld) 0.6 % Normal 0.2-2.0 [facility] Comment on above: Performed By: #### C BC ####[facility] [address] [place], [place] [address]Dr. Wyatt Aldrich EO # 0.2 103/ul Normal 0.0-0.7 [facility] Comment on above: Performed By: #### C BC ####[facility] [address] [place], [place] [address]DrCullen Aldrich Eosinophils/100 WBC (Bld) 2.4 % Normal 0.9-7.0 [facility] Comment on above: Performed By: #### C BC ####[facility] [address] [place], [place] [address]DrCullen Aldrich Erythrocyte distribution width (RBC) [Ratio] 12.5 % Normal 11.0-15.0 [facility] Comment on above: Performed By: #### C BC ####[facility] [address] [place], [place] [address]DrCullen Aldrich Hematocrit (Bld) [Volume fraction] 43.5 % Normal 42.0-54.0 [facility] Comment on above: Performed By: #### C BC ####[facility] [address] [place] [address]DrCullen Aldrich Hemoglobin (Bld) [Mass/Vol] 14.4 g/dL Normal 14.0-18.0 [facility] Comment on above: Performed By: #### C BC ####[facility] [address] [place] [address] [address]Dr. Wyatt Aldrich IG # 0.03 10e3/ul Normal 0.00-0.03 [facility] Comment on above: Performed By: #### C BC ####[facility] R[address] [place], [place] [address]DrCullen Aldrich IG % 0.4 % Normal 0.0-0.5 [facility] Comment on above: Performed By: #### C BC ####[facility] K[address]ay[address] [place], [place] [address]DrCullen Aldrich LYMPH # 2.1 103/ul Normal 1.2-3.8 [facility] Comment on above: Performed By: #### C BC ####[facility] L[address]btdpbj[address] [place], [place] [address]DrCullen Aldrich Lymphocytes/100 WBC (Bld) 24.8 % Normal 20.5-60.0 [facility] Comment on above: Performed By: #### C BC ####[facility] [address] [place] [address]DrCullen Aldrich MANUAL DIFF REQ NO Normal [facility] Comment on above: Performed By: #### C BC ####[facility] [address] [place] [id number] Aldrich MCH (RBC) [Entitic mass] 30.6 pg Normal 25.9-34.0 [facility] Comment on above: Performed By: #### C BC ####[facility] [address] [place] [id number] Aldrich MCHC (RBC) [Mass/Vol] 33.1 g/dL Normal 29.9-35.2 [facility] Comment on above: Performed By: #### C BC ####[facility] [address] [place] [address]DrCullen Wyatt Valdemar MCV (RBC) [Entitic vol] 92.6 fL Normal 80.0-94.0 [facility] Comment on above: Performed By: #### C BC ####[facility] [address] [place] [address]DrCullen Aldrich MONO # 0.6 103/ul Normal 0.3-0.8 [facility] Comment on above: Performed By: #### C BC ####[facility] [address]dpbgr[address] [place] [address]DrCullen Aldrich Monocytes/100 WBC (Bld) 7.7 % Normal 1.7-12.0 [facility] Comment on above: Performed By: #### C BC ####[facility] [address] [place], [place] [address]Dr. Wyatt Aldrich NEUT # 5.3 103/ul Normal 1.4-6.5 [facility] Comment on above: Performed By: #### C BC ####[facility] Byhnxsmf[address] [place], [place] [address]Dr. Wyatt Aldrich Neutrophils/100 WBC (Bld) 64.1 % Normal 43.0-75.0 [facility] Comment on above: Performed By: #### C BC ####[facility] [address]cmydy[address] [place] [address]DrCullen Aldrich Platelet mean volume (Bld) [Entitic vol] 9.4 fL Critically low 9.5-13.5 [facility] Comment on above: Performed By: #### C BC ####[facility] Bucfertifx[address] [place], [place] [address]Dr. Wyatt Aldrich PLT 280 103/ul Normal 150-450 [facility] Comment on above: Performed By: #### C BC ####[facility] [address]dq[address] [place] [id number]. Wyatt Aldrich RBC 4.70 106/ul Normal 4.70-6.10 [facility] Comment on above: Performed By: #### C BC ####[facility] [address] [place] [address]Dr. Wyatt Aldrich WBC 8.3 103/ul Normal 4.0-11.0 [facility] Comment on above: Performed By: #### C BC ####[facility] [address] [place] [id number]. Wyatt Aldrich FREE T3on 01-28-2022 FREE T3 2.70 pg/mlL Normal 2.18-3.98 [facility] Comment on above: Performed By: #### L IPID, CMP, TSH, FT3 ####[facility] [address] [place] [address]Dr. Wyatt Aldrich GLYCOHEMOGLOBIN A1Con 2021 ADA RECOMMENDATION SEE BELOW Normal [facility] Comment on above: Result Comment: ADA RECOMMENDED LIMIT 4.0 - 6.0 ADA THERAPEUTIC TARGET < 7.0 ACTION SUGGESTED > 7.0 Performed By: #### A 1C #### [facility] [address] [address] [address] Wyatt Aldrich Glucose [Mass/Vol] 143 mg/dL Normal [facility] Comment on above: Performed By: #### A 1C #### [facility] [address] [address] [address] Wyatt Aldrich HbA1c (Bld) [Mass fraction] 6.6 % Critically high 4.5-6.2 [facility] Comment on above: Performed By: #### A 1C #### [facility] [address] [address] [address] Wyatt Aldrich LIPID PROFILEon 01-28-2022 CHOL-HDL RATIO NORM SEE BELOW Normal [facility] Comment on above: Result Comment: 3.3 - 4.4 LOW RISK 4.4 - 7.1 AVERAGE RISK 7.1 - 11.0 MODERATE RISK >11.0 HIGH RISK Performed By: #### L IPID, CMP, TSH, FT3 ####[facility] [address] [place] [address]Dr. Wyatt Aldrich Cholesterol [Mass/Vol] 176 mg/dL Normal <=200 [facility] Comment on above: Performed By: #### L IPID, CMP, TSH, FT3 ####[facility] [address] [place] [address]Dr. Wyatt Aldrich Cholesterol in HDL [Mass/Vol] 35 mg/dL Critically low 40-60 [facility] Comment on above: Performed By: #### L IPID, CMP, TSH, FT3 ####[facility] [address] [place] [address]Dr. Wyatt Aldrich Cholesterol in LDL [Mass/Vol] 94.4 mg/dL Normal [facility] Comment on above: Performed By: #### L IPID, CMP, TSH, FT3 ####[facility] [address] [place] [address]Dr. Wyatt Aldrich Cholesterol.total/Ch olesterol in HDL [Mass ratio] 5.0 {ratio} Normal [facility] Comment on above: Performed By: #### L IPID, CMP, TSH, FT3 ####[facility] [address] [place] [address]Dr. Wyatt Aldrich HDL NORMAL > or = 60 mg/dl - LO W CARDIOVASCULAR RISK <40 mg/dl - HIGH CARDIOVASCULAR RISK Normal [facility] Comment on above: Performed By: #### L IPID, CMP, TSH, FT3 ####[facility] [address]xs[address] [place] [address]Dr. Wyatt Aldrich LDL CALC NORMAL SEE BELOW Normal [facility] Comment on above: Result Comment: <100 mg/dl OPTIMAL 100 - 129 mg/dl NEAR OR ABOVE OPTIMAL 130 - 159 mg/dl BORDERLINE HIGH 160 - 189 mg/dl HIGH >190 mg/dl VERY HIGH Performed By: #### L IPID, CMP, TSH, FT3 ####[facility] [address] [place] [address]Dr. Wyatt Aldrich Triglyceride [Mass/Vol] 233 mg/dL Critically high <=150 [facility] Comment on above: Performed By: #### L IPID, CMP, TSH, FT3 ####[facility] [address] [place] [address]Dr. Wyatt Aldrich VLDL CALC 46.6 mg/dL Normal [facility] Comment on above: Performed By: #### L IPID, CMP, TSH, FT3 ####[facility] [address] [place] [address]Dr. Wyatt Aldrich OCC BLD IMMUNO SCREENon 01-03 OCCULT BLOOD Negative Normal NEGATIVE [facility] Comment on above: Performed By: #### O BSCRN #### [facility] [address] [address] [address] Wyatt Aldrich PROF 14(COMP METB)on 022 Albumin [Mass/Vol] 3.4 g/dL Normal 3.4-5.0 [facility] Comment on above: Performed By: #### L IPID, CMP, TSH, FT3 ####[facility] [address] [place] [address]Dr. Wyatt Aldrich Albumin/Globulin [Mass ratio] 1.0 {ratio} Normal [facility] Comment on above: Performed By: #### L IPID, CMP, TSH, FT3 ####[facility] [address]vxmeap[address] [place] [address]Dr. Wyatt Aldrich ALP [Catalytic activity/Vol] 65 U/L Normal 46-116 [facility] Comment on above: Performed By: #### L IPID, CMP, TSH, FT3 ####[facility] [address] [place] [address]Dr. Wyatt Aldrich ALT [Catalytic activity/Vol] 45 U/L Normal 16-63 [facility] Comment on above: Performed By: #### L IPID, CMP, TSH, FT3 ####[facility] [address]wuwtgc[address] [place] [address]Dr. Wyatt Aldrich Anion gap [Moles/Vol] 9.7 mmol/L Normal [facility] Comment on above: Performed By: #### L IPID, CMP, TSH, FT3 ####[facility] [address]wav[address] [place] [address]Dr. Wyatt Aldrich AST [Catalytic activity/Vol] 20 U/L Normal 15-37 [facility] Comment on above: Performed By: #### L IPID, CMP, TSH, FT3 ####[facility] [address]uwh[address] [place] [address]Dr. Wyatt Aldrich Bilirubin [Mass/Vol] 0.4 mg/dL Normal 0.2-1.0 [facility] Comment on above: Performed By: #### L IPID, CMP, TSH, FT3 ####[facility] [address]qdsms[address] [place] [address]Dr. Wyatt Aldrich Calcium [Mass/Vol] 8.5 mg/dL Normal 8.5-10.1 [facility] Comment on above: Performed By: #### L IPID, CMP, TSH, FT3 ####[facility] [address] [place], [place] [address]Dr. Wyatt Aldrich Chloride [Moles/Vol] 101 mmol/L Normal 98-107 [facility] Comment on above: Performed By: #### L IPID, CMP, TSH, FT3 ####[facility] [address] [place], [place] [address]Dr. Wyatt Aldrich CO2 [Moles/Vol] 33.3 mmol/L Critically high 21.0-32.0 [facility] Comment on above: Performed By: #### L IPID, CMP, TSH, FT3 ####[facility] [address]smadvnll[address] [place] [address]Dr. Wyatt Aldrich Creatinine [Mass/Vol] 0.77 mg/dL Normal 0.70-1.30 [facility] Comment on above: Performed By: #### L IPID, CMP, TSH, FT3 ####[facility] [address]te[address] [place] [address]Dr. Wyatt Aldrich EGFR-AF CAMEROONIAN >60 Normal >=60 [facility] Comment on above: Performed By: #### L IPID, CMP, TSH, FT3 ####[facility] [address]lo[address] [place] [address]Dr. Wyatt Aldrich EGFR-NON AF CAMEROONIAN >60 Normal >=60 [facility] Comment on above: Performed By: #### L IPID, CMP, TSH, FT3 ####[facility] [address]sqpxpxycc[address] [place] [address]Dr. Wyatt Aldrich Globulin (S) [Mass/Vol] 3.3 g/dL Normal [facility] Comment on above: Performed By: #### L IPID, CMP, TSH, FT3 ####[facility] [address]qfibxdh[address] [place] [address]Dr. Wyatt Aldrich Glucose [Mass/Vol] 137 mg/dL Critically high 74-106 [facility] Comment on above: Performed By: #### L IPID, CMP, TSH, FT3 ####[facility] [address] [place], [place] [address]Dr. Wyatt Aldrich Potassium [Moles/Vol] 4.0 mmol/L Normal 3.5-5.1 [facility] Comment on above: Performed By: #### L IPID, CMP, TSH, FT3 ####[facility] Qiryblento[address] [place], [place] [address]Dr. Wyatt Aldrich Protein [Mass/Vol] 6.7 g/dL Normal 6.4-8.2 [facility] Comment on above: Performed By: #### L IPID, CMP, TSH, FT3 ####[facility] [address] [place], [place] [address]Dr. Wyatt Aldrich Sodium [Moles/Vol] 140 mmol/L Normal 136-145 [facility] Comment on above: Performed By: #### L IPID, CMP, TSH, FT3 ####[facility] [address] [place], [place] [address]Dr. Wyatt Aldrich Urea nitrogen [Mass/Vol] 13.0 mg/dL Normal 7.0-18.0 [facility] Comment on above: Performed By: #### L IPID, CMP, TSH, FT3 ####[facility] [address] [place], [place] [address]Dr. Wyatt Aldrich Urea nitrogen/Creatinine [Mass ratio] 16.9 mg/mg Normal [facility] Comment on above: Performed By: #### L IPID, CMP, TSH, FT3 ####[facility] [address] [place], [place] [address]Bt. Wyatt Aldrich TSHon 01-28-2022 TSH 5.562 uIU/mL Critically high 0.358-3.740 [facility] Comment on above: Performed By: #### L IPID, CMP, TSH, FT3 ####[facility] [address] [place], [place] [address]Fj. Wyatt Aldrich TSH RANGE SEE BELOW Normal [facility] Comment on above: Result Comment: <0.3 4 UIU/ml HYPERTHYROID 0.34-5.60 UIU/ml EUTHYROID >5.60 UIU/ml HYPOTHYROID Performed By: #### L IPID, CMP, TSH, FT3 ####[facility] [address] [place], [place] [address]Lc. Wyatt Aldrich XR KUB 1 VIEWon 01-20-2022 [...] Date: 2022-01-20 14:12 Normal [facility] MRI LSPINE WO W CONon 2021 [...] by: TANISHA CHIU Date: 2021-10-04 11:23 Normal [facility] XR LSPINE MIN 4 VIEWSon 09-05 [...] by: SOLO SAVAGE Date: 2021-09-27 11:31 Normal [facility] Vital Signs Date Time Vital Sign Value Performing Clinician Jessi chowdhury 04-23-2025 10:28-0400 Body weight 161.2 kg Asim Fernandez MD Work Phone: [facility] 03-19-2025 09:07-0400 Body height 187.96 cm Asim Fernandez MD Work Phone: [facility] 03-19-2025 09:07-0400 Body mass index (BMI) [Ratio] 46.2 kg/m2 Asim Fernandez MD Work Phone: [facility] 03-19-2025 09:07-0400 Body weight 163.2 kg Asim Fernandez MD Work Phone: [facility] 03-04-2025 08:41-0400 Body height 187.96 cm Asim Fernandez MD Work Phone: [facility] 03-04-2025 08:41-0400 Body mass index (BMI) [Ratio] 45.6 kg/m2 Asim Fernandez MD Work Phone: [facility] 03-04-2025 08:41-0400 Body weight 161.3 kg Asim Fernandez MD Work Phone: [facility] 01-30-2025 10:28-0400 Body weight 164.9 kg Asim Fernandez MD Work Phone: [facility] 12-26-2024 08:29-0400 Body weight 164 kg [facility] 10-29-2024 08:25-0500 Blood Pressure Location Michele RAYGOZA [facility] [place] 10-29-2024 08:25-0500 Diastolic blood pressure 72 mm[Hg] iMchele RAYGOZA [facility] [place] 10-29-2024 08:25-0500 Heart rate 64 /min Michele RAYGOZA [facility] 10-29-2024 08:25-0500 Respiratory rate 16 /min Michele RAYGOZA [facility] [place] 10-29-2024 08:25-0500 Systolic blood pressure 129 mm[Hg] Michele NILL [facility] [place] 09-10-2024 09:50-0500 Diastolic blood pressure 78 mm[Hg] Zena Orzech [facility] 09-10-2024 09:50-0500 Mean blood pressure 99 mm[Hg] Zena Orzech [facility] 09-10-2024 09:50-0500 Systolic blood pressure 140 mm[Hg] Zena Orzech [facility] 09-10-2024 09:27-0500 Blood Pressure Location Zena Orzech [facility] 09-10-2024 09:27-0500 Body temperature 98.6 [degF] Zena Orzech [facility] 09-10-2024 09:27-0500 Diastolic blood pressure 96 mm[Hg] Zena Orzech [facility] 09-10-2024 09:27-0500 Heart rate 69 /min Zena Orzech [facility] 09-10-2024 09:27-0500 Systolic blood pressure 190 mm[Hg] Zena Orzech [facility] 06-11-2024 08:19-0400 Blood Pressure Location Porsche AKHTAR [facility] 06-11-2024 08:19-0400 Diastolic blood pressure 111 mm[Hg] Porsche AKHTAR [facility] 06-11-2024 08:19-0400 Heart rate 71 /min Porsche COOK [facility] 06-11-2024 08:19-0400 Systolic blood pressure 190 mm[Hg] Porsche COOK [facility] 06-06-2023 08:48-0400 Blood Pressure Location Porsche COOK [facility] 06-06-2023 08:48-0400 Diastolic blood pressure 66 mm[Hg] Porsche COOK [facility] 06-06-2023 08:48-0400 Heart rate 83 /min Porsche COOK [facility] 06-06-2023 08:48-0400 Systolic blood pressure 142 mm[Hg] Porsche COOK [facility] 06-17-2022 09:14-0400 Blood Pressure Location Porsche COOK [facility] 06-17-2022 09:14-0400 Diastolic blood pressure 96 mm[Hg] Porsche COOK [facility] 06-17-2022 09:14-0400 Heart rate 67 /min Porsche COOK [facility] 06-17-2022 09:14-0400 Systolic blood pressure 159 mm[Hg] Porsche COOK [facility] 06-10-2022 09:54-0400 Blood Pressure Location Porsche COOK [facility] 06-10-2022 09:54-0400 Diastolic blood pressure 102 mm[Hg] Porsche AKHTAR [facility] 06-10-2022 09:54-0400 Heart rate 68 /min Porsche AKHTAR [facility] 06-10-2022 09:54-0400 Systolic blood pressure 166 mm[Hg] Porsche AKHTAR [facility] 01-21-2022 08:44-0400 Blood Pressure Location Porsche AKHTAR [facility] 01-21-2022 08:44-0400 Diastolic blood pressure 87 mm[Hg] Porsche AKHTAR [facility] 01-21-2022 08:44-0400 Heart rate 72 /min Porsche AKHTAR [facility] 01-21-2022 08:44-0400 Systolic blood pressure 140 mm[Hg] Porsche AKHTAR [facility] Encounters Encounter Date Encounter Type Care Provider Facility Start: 04-23-2025 End: 04-23-2025 ambulatory Asim Fernandez MD Work Phone: [facility] Work Phone: Start: 04-23-2025 End: 04-23-2025 Patient encounter procedure Tanisha Ocampo [facility] Work Phone: Start: 04-09-2025 End: 04-09-2025 Patient encounter procedure Tanisha Ocampo DO -[facility] Work Phone: Start: 04-09-2025 End: 04-09-2025 ambulatory Asim Fernandez MD Work Phone: [facility] Work Phone: Start: 04-09-2025 Non-patient / Non-visit Eyad Amaral MD -[facility] Work Phone: Start: 03-19-2025 End: 03-19-2025 ambulatory Asim Fernandez MD Work Phone: [facility] Work Phone: Start: 03-19-2025 End: 03-19-2025 Patient encounter procedure Tanisha Ocampo DO -[facility] Work Phone: Start: 03-18-2025 End: 03-18-2025 Patient encounter procedure Colleen Miles LOPEZN -CT [facility] [place] Work Phone: Start: 03-18-2025 End: 03-18-2025 ambulatory Asim Fernandez MD Work Phone: [facility] Work Phone: Start: 03-04-2025 End: 03-04-2025 ambulatory Asim Fernandez MD Work Phone: [facility] Work Phone: Start: 03-04-2025 End: 03-04-2025 Patient encounter procedure Colleen Aquino APRN -[facility] Neuro[facility] Work Phone: Start: 02-28-2025 End: 02-28-2025 Patient encounter procedure Colleen Aquino PROPERTY CONTROLLER -[facility] [place] Work Phone: Start: 02-28-2025 End: 02-28-2025 ambulatory Asim Fernandez MD Work Phone: [facility] Work Phone: Start: 01-30-2025 End: 01-30-2025 ambulatory Asim Fernandez MD Work Phone: [facility] Work Phone: Start: 01-30-2025 End: 01-30-2025 Patient encounter procedure Asim Fernandez MD Work Phone: [facility] Work Phone: Start: 01-21-2025 End: 01-21-2025 Bamboo flowsheet Loi Benitez [employer] [facility] Start: 01-21-2025 End: 01-21-2025 Bamboo flowsheet Loi Benitez [employer] [facility] Start: 01-21-2025 End: 01-21-2025 ambulatory Loi Benitez [employer] [facility] Comment on above: Lumbar paraspinal mu scle spasm (Primary Dx); Cervical radiculopathy Start: 01-17-2025 End: 01-17-2025 Bamboo flowsheet Loi Gabriel [employer] [facility] Start: 01-17-2025 End: 01-17-2025 Bamboo flowsheet Loi Gabriel [employer] [facility] Start: 01-17-2025 End: 01-17-2025 ambulatory Loi Benitez [employer] [facility] Comment on above: Lumbar paraspinal mu scle spasm (Primary Dx); Cervical radiculopathy Start: 01-15-2025 End: 01-15-2025 Bamboo flowsheet Loi Benitez [employer] [facility] Start: 01-15-2025 End: 01-15-2025 Bamboo flowsheet Loi Benitez [employer] [facility] Start: 01-15-2025 End: 01-15-2025 ambulatory Loi Benitez [employer] [facility] Comment on above: Lumbar paraspinal mu scle spasm (Primary Dx); Cervical radiculopathy Start: 01-09-2025 End: 01-09-2025 Bamboo flowsheet Loi Gabriel [employer] [facility] Start: 01-09-2025 End: 01-09-2025 Bamboo flowsheet Loi Gabriel [employer] [facility] Start: 01-09-2025 End: 01-09-2025 ambulatory Loi Gabriel [employer] [facility] Comment on above: Lumbar [...] 12-26-2024 ambulatory Asim Fernandez MD Work Phone: [facility] Work Phone: Start: 12-26-2024 End: 12-26-2024 Patient encounter procedure [facility] Work Phone: Start: 12-09-2024 End: 12-09-2024 ambulatory Heather Turcios MD Facility:[facility] Start: 10-29-2024 End: 10-29-2024 ambulatory Michele RAYGOZA Facility:[facility] Start: 10-29-2024 End: 10-29-2024 Patient encounter procedure Michele RAYGOZA [facility] [place] Start: 10-18-2024 ambulatory Porsche AKHTAR Facility: [facility] Start: 09-10-2024 End: 09-10-2024 ambulatory Zena X Sole Facility:[facility] Start: 09-10-2024 End: 09-10-2024 Patient encounter procedure Zena X Orzech [facility] Start: 06-11-2024 End: 06-11-2024 ambulatory Porsche AKHTAR Facility: [facility] Start: 06-11-2024 End: 06-11-2024 Patient encounter procedure Porsche AKHTAR [facility] [place] Start: 06-10-2024 End: 06-10-2024 ambulatory Heather Turcios MD Facility:[facility] Start: 02-19-2024 End: 02-19-2024 ambulatory Heather Turcios MD Facility:[facility] Start: 02-05-2024 End: 02-05-2024 ambulatory Heather Turcios MD Facility:[facility] Start: 06-06-2023 End: 06-06-2023 Patient encounter procedure Porsche AKHTAR [facility] [place] Start: 06-17-2022 End: 06-17-2022 Patient encounter procedure Porsche AKHTAR [facility] [place] Start: 06-16-2022 End: 06-17-[address] ASIM FERNANDEZ Facility: Start: 06-10-2022 End: 06-10-2022 Patient encounter procedure Porsche AKHTAR [facility] [place] Start: 06-09-2022 End: 06-10-[address] ASIM FERNANDEZ Facility:[facility] Start: 05-29-2022 End: 05-29-[address] ASIM FERNANDEZ Facility:[facility] Start: 05-11-2022 End: 05-11-2022 Patient encounter procedure Porsche AKHTAR [facility] Start: 02-03-2022 Encounter for genera l adult medical examination without abnormal findings DR ASIM FERNANDEZ [facility] Start: 01-28-2022 End: 01-29-[address] ASIM FERNANDEZ Facility:[facility] Start: 01-28-2022 End: 01-29-2022 Encounter for general adult medical examination without abnormal findings DR ASIM FERNANDEZ Facility:[facility] Start: 01-21-2022 End: 01-21-2022 Patient encounter procedure Porsche AKHTAR [facility] Start: 01-20-2022 End: 01-21-2022 ambulatory [...] Performed By: #### P SAD ####[facility] [address] [place], [place] [address]KhCullen Aldrich Start: 08-13-2020 Extracorporeal shock wave lithotripsy of calculus of kidney Porsche AKHTAR Start: 03-27-2019 Colonoscopy Michele NI LL Start: 02-02-2014 Colonoscopy Michele NI LL Start: 09-04-2004 Colonoscopy Michele NI LL Cholecystectomy Michele NILL Dental surgical procedure Gr opncho AKHTAR Drainage of perirect al abscess Michele [...] Ended) [facility] Start: 04-23-2025 Patient referral [facility] Work Phone: Start: 01-28-2025 End: 01-28-2025 ambulatory [facility] Start: 01-23-2025 End: 01-23-2025 ambulatory [facility] Start: 01-21-2025 End: 01-21-2025 ambulatory [facility] Start: 01-17-2025 End: 01-17-2025 ambulatory 01/17/2025 10:30 AM EDT Treatment [facility] [address] [place] [address] Loi Benitez PTA [facility] Start: 01-15-2025 End: 01-15-2025 ambulatory [facility] Comment on above: Arrived Start: 01-09-2025 End: 01-09-2025 ambulatory [facility] Comment on above: Arrived Start: 01-01-2025 End: 01-01-2025 ambulatory 01/01/2025 10:00 AM EDT Evaluation [facility] [address] [facility] [address] [place] [address] Michael Ram, PT [address] [facility] [address] [place] [address] Arrived [facility] Comment on above: Arrived Start: 12-26-2024 Patient referral [facility] Work Phone: Start: 1965 Screening for malign ant neoplasm of colon [facility] Electromyography [facility] Patient referral [facility] Work Phone: XR Lumbar spine Views [facility] Immunizations Immunization Date Immunization Notes Care Provider Mica biggs 04-19-2022 zoster vaccine recombinant Porsche AKHTAR [facility] 02-12-2022 pneumococcal 20-maría nt conjugate vaccine Porsche AKHTAR [facility] 02-03-2022 zoster vaccine recombinant Porsche AKHTAR [facility] 12-08-2020 SARS-CoV-2 (COVID-19 ) mRNA-1273 vaccine Porsche AKHTAR [facility] 11-17-2020 SARS-CoV-2 (COVID-19 ) mRNA BNT-162b2 vax Porsche AKHTAR [facility] 11-11-2020 SARS-CoV-2 (COVID-19 ) mRNA-0768 vaccine Porsche AKHTAR [facility] Payers Date Payer Category Payer Self-pay 2023 [facility] [id number]. 315 2023 Private Health Insurance [id number]. 315 2023 Unknown 2023 Unknown [id number] 1965 Unknown [id number] 2.840.1.485982.3.57 9.2.593 1964 Unknown [id number] 2.16840.1.870281.3.57 9.2.593 1964 Unknown [id number] 2.16.840.1.610885.3.57 9.2.593 1964 Unknown [id number] 2.16.840.1.105064.3.57 9.2.593 1964 Unknown [id number] 2.16.840.1.544692.3.57 9.2.593 1964 Unknown [id number] 2.16.840.1.939139.3.57 9.2.593 1964 Unknown [id number] 2.16.840.1.256909.3.57 9.2.593 1964 Unknown [id number] 2.16.840.1.615922.3.57 9.2.593 1964 Unknown [id number] 2.16.840.1.499173.3.57 9.2.727 1964 Unknown [id number] 2.16840.1.289328.3.57 9.2.727 1964 Unknown [id number] 2.16.840.1.782585.3.57 9.2.727 1964 Unknown [id number] 2.16840.1.037268.3.57 9.2.727 1964 Unknown [id number] 2.16840.1.417337.3.57 9.2.196 1964 Unknown [id number] 2.840.1.596955.3.57 9.2.196 1964 Unknown [id number] 2.16840.1.753263.3.57 9.2.196 1964 Unknown [id number] 2.16840.1.758557.3.57 9.2.196 1964 Unknown [id number] 2.16840.1.586112.3.57 9.2.1259 1964 Unknown [id number] 2.840.1.754627.3.57 9.2.1259 1964 Unknown [id number] 2.16840.1.811537.3.57 9.2.1259 1964 Unknown [id number] 2.16840.1.206968.3.57 9.2.1259 1964 Unknown [id number] 2.16.840.1.623764.3.57 9.2.1259 1964 Unknown [id number] 2.16840.1.021743.3.57 9.2.1259 1959 Private Health Insurance [id number] Unknown [place] BC/[place] [id number] Unknown [id number] 2.16.840.1.122770.3.57 9.2.531 Unknown [id number] 2.16.840.1.897923.3.57 9.2.531 Unknown [id number] 2.16.840.1.492804.3.57 9.2.531 Unknown [id number] 2.16.840.1.015519.3.57 9.2.531 Social History Date Type Detail Facility Start: 01-15-2021 End: 12-26-2024 Tobacco smoking status Ex-smoker (finding) [facility] Tobacco smoking status Never [facility] [employer] Sex Assigned At Male [facility] [employer] Start: 12-26-2024 End: 01-30-2025 Sex Male (finding) [facility] Start: 1965 Sex Assigned At Male F [facility] Tobacco smoking status NHIS Tobacco smoking consumption unknown [facility] Start: 1965 Sex assigned at Not on file [facility] Functional Status Date Assessment Result Facility 10-29-2024 Functional Status N/A [facility] [place] 09-10-2024 Functional Status N/A [facility] 06-11-2024 Functional Status N/A [facility] 06-06-2023 Functional Status N/A [facility] 06-17-2022 Functional Status N/A [facility] 06-10-2022 Functional Status N/A [facility] Clinical Notes 01-21-2022 to 03-18-2025 Note Date & Type Note Facility 03-18-2025 Radiology Diagnostic study note [facility] [place] [address] [place] [address] CT Scan Report Signed Patient: Liz Hernandez MR#: [id number] : 1965 Acct:[id number] Age/Sex: 59 / M ADM Date: 5 Loc: CT Room: Type: [facility] Attending Dr: Colleen Aquino APRN Copies to: [...] with vacuum disc phenomenon L5-S1 and L2-L3. Wfww-lj-zogkhram intervertebral space narrowing with mediastinal L3-L5. Multilevel moderate severe facet arthropathy greatest L4-S1. No fracture malalignment multilevel central canal and foraminal encroachment is better evaluated on recent MRI. CT/CT lumbar spine wo con IMPRESSION: Moderate severe multilevel degenerative changes. Negative acute fracture or malalignment Impression dictated by: Christopher Mendes M.D. 03/18/2025 9:20 AM Dictation Location: [place] [address] Transcribed By: [facility] 03/18/25919 Dictated By: Christopher Mendes MD 03/18/2516 Signed By: 03/18/25919 [facility] Work Phone: 01-30-2025 Evaluation note Diagnosis [...] 8:35am Severe back pain acute March 9:02am [facility] Work Phone: 1(747) 502-224905-29-2025 Evaluation note* Diagnosis Onset Date Resolution Status [...] lumbar radiculopathy acute April 23, 2025 10:24am [facility] Work Phone: 1(723) 205-322305-06-2025 History of Present illness Narrative* Michael Ram, [...] due to back and Left LE. 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 Date: documented in this encounterCox [id number] History of Present illness Narrative* Michael Ram, [...] due to back and Left LE. 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 Date: documented in this [facility]04-24-2025 Evaluation note* Diagnosis Onset Date Resolution Status Admit Date Left lumbar radiculopathy acute December 26, 2024 8:28am Numbness and tingling of foot acute December 26, 2024 8:28am [facility] Work Phone: 1(117) 106-751804-24-2025 Evaluation note* Diagnosis Onset Date Resolution Status Admit Date Left lumbar radiculopathy acute December 26, 2024 8:28am Numbness and tingling of foot acute December 26, 2024 8:28am Left lumbar radiculopathy acute January 30, 2025 10:28am Neurogenic claudication acute M ay 2024 10:28am Numbness and tingling of foot acute January 30, 2025 10:28am [facility] Work Phone: 1(863) 440-763804-24-2025 Evaluation note* Diagnosis Onset Date Resolution Status [...] acute March 04, 2025 8:35am [facility] Work Phone: 1(673) 566-305702-25-2025 NoteGeneral Surgery Office/Clinic Note Chief Complaint consultation [...] tab(s), Oral, Alexus (more content not included)... [facility]Result Comment: Electronically Signed By: JARET CANTOR, Michele Campbell\Date and Time Signed: 10/29/24 08:56 EST 09-10-2024 Hospital Discharge instructions Patient Education 09/10/2024 09:53:34 Kidney Stones, Geyb-ei-Hcmz Kidney Stones Kidney stones are rock-like masses [...] Follow these instructions at home: Medicines Take lgri-abe-dcnvwkb and prescription medicines only as told by [...] provider. Document Revised: 04/14/2023 Document Reviewed: 04/14/2023 [employer] Patient Education 2023 [employer]. Follow Up Care 08/15/2024 10:52:33 With:GIOVANA CANTOR, Porsche Kwan, URL Address: [facility] [address] [place] [id number]- When: Unknown [facility] [id number] NotePatient Education Urology Kidney Stones Kidney stones [...] these instructions at home: Medicines ??? Take mcdj-aej-ciwwuwm and prescription medicines only as told by [...] provider. Document Revised: 04/14/2023 Document Reviewed: 04/14/2023 [employer] Patient Education ? 2023 [employer].[facility] 06-11-2024 Hospital Discharge instructions Patient Education [...] you may eat and drink normally. Take sctv-wxt-fsexavc and prescription medicines only as told by your health care provider. Let your health care provider know about any medicines that you are taking, including czkn-ovf-tqbslsp medicines, vitamins, herbs, and supplements. Choose a [...] provider. Document Revised: 02/25/2022 Document Reviewed: 02/25/2022 [employer] Patient Education 2023 [employer]. 06/11/2024 08:23:10 Dietary Guidelines to Help Prevent [...] include: ?8 oz (237 mL) of milk, koldssn-mttjbtuttlwq-mzelh milk, and calcium- fortifiedfruit juice. Calcium-fortified means [...] ?Spinach (cooked), rhubarb, beets, sweet potatoes, and [place] chard. ?Peanuts. ?Potato chips, greenlandic fries, and baked potatoes with skin on. ?Nuts and nut products. ?Chocolate. If you regularly take a diuretic medicine, make sure to eat at least 1 or 2 servings of fruits or vegetables that are high in potassium each day. These include: ?Avocado. ?Banana. ?Jones, prune, carrot, or tomato juice. ?Baked potato. [...] magnesium, fish oil, or vitamin B6. Take eboh-ovi-bygvsej and prescription medicines only as told by [...] Casseroles. Pizza. Lasagna. Frozen meals. Potato chips. Central [place] fries. The items listed above may not [...] provider. Document Revised: 12/01/2022 Document Reviewed: 12/01/2022 [employer] Patient Education 2023 [employer]. Follow Up Care 06/06/2023 09:30:15 With:GIOVANA CANTOR, Porsche Kwan, URL Address: [facility] [employer] [place] [id number]- When: Unknown [facility] [place] [id number] NotePatient Education Nephrology Dietary Guidelines to Help [...] ? 8 oz (237 mL) of milk, rkmesyr-xmqtylldrbdk-djmlk milk, and calcium- fortifiedfruit juice. Calcium-fortified means [...] Spinach (cooked), rhubarb, beets, sweet potatoes, and [place] chard. ? Peanuts. ? Potato chips, greenlandic fries, and baked potatoes with skin on. ? Nuts and nut products. ? Chocolate. ? If you regularly take a diuretic medicine, make sure to eat at least 1 or 2 servings of fruits orvegetables that are high in potassium each day. These include: ? Avocado. ? Banana. ? Jones, prune, carrot, or tomato juice. ? Baked [...] fish oil, or vitamin B6. ? Take tozz-zoz-zpvuarp and prescription medicines only as told by your health care provider. Theseinclude suppleme (more content not included)...[facility]10-[facility]23 Hospital Discharge instructions Patient Education 06/06/2023 [...] include: ?8 oz (237 mL) of milk, dcoohfm-oynhfjtqvyrj-mulrb milk, and calcium- fortifiedfruit juice. Calcium-fortified means [...] ?Spinach (cooked), rhubarb, beets, sweet potatoes, and [place] chard. ?Peanuts. ?Potato chips, greenlandic fries, and baked potatoes with skin on. ?Nuts and nut products. ?Chocolate. If you regularly take a diuretic medicine, make sure to eat at least 1 or 2 servings of fruits or vegetables that are high in potassium each day. These include: ?Avocado. ?Banana. ?Jones, prune, carrot, or tomato juice. ?Baked potato. [...] magnesium, fish oil, or vitamin B6. Take yklb-pqs-ihwrgba and prescription medicines only as told by [...] Casseroles. Pizza. Lasagna. Frozen meals. Potato chips. Central [place] fries. The items listed above may not [...] provider. Document Revised: 05/02/2022 Document Reviewed: 05/02/2022 [employer] Patient Education 2022 [employer]. Follow Up Care 01/21/2022 09:03:45 With:GIOVANA CANTOR, Porsche Kwan, URL Address: [facility] [address] [address] [place], [place] [id number]- When:Within 1 Year(s) Comments:Oksana [facility] [place] [id number] Hospital Discharge instructions Patient Education 06/17/2022 09:35:20 [...] potassium each day. These include: ?Avocado. ?Banana. ?Jones, prune, carrot, or tomato juice. ?Baked potato. [...] Casseroles. Pizza. Lasagna. Frozen meals. Potato chips. Central [place] fries. Summary You can reduce your risk [...] 12/16/2011 Document Revised: 12/11/2019 Document Reviewed: 08/01/2017 [employer] Patient Education 2020 [employer] Follow Up Care 06/10/2022 10:24:22 With:GIOVANA CANTOR, Porsche Kwan, URL Address: [address] [address]- When:6 months Comments:w/ [place] [facility] 10-07-2022 Hospital Discharge instructions Patient [...] potassium each day. These include: ?Avocado. ?Banana. ?Jones, prune, carrot, or tomato juice. ?Baked potato. [...] Casseroles. Pizza. Lasagna. Frozen meals. Potato chips. [place] fries. Summary You can reduce your risk [...] 12/16/2011 Document Revised: 12/11/2019 Document Reviewed: 08/01/2017 [employer] Patient Education 2019 [employer]. Follow Up Care 05/30/2022 09:25:01 With:GIOVANA CANTOR, Porsche Kwan, URL Address: [address] [place] [address]- When:2 weeks Comments:KUB [facility] [place] [id number] Hospital Discharge instructions Patient Education 01/21/2022 08:33:55 [...] urethra. Follow these instructions at home: Take ocyg-rxt-uwbrcdd and prescription medicines only as told by [...] 08/21/2006 Document Revised: 07/16/2019 Document Reviewed: 09/25/2017 [employer] Patient Education [employer]. Follow Up Care 01/15/2021 08:45:48 With:Porsche AKHTAR MD, URL Address: [facility] [place] [place] [address]- When:01/21/2023 Comments:with PSA and x-ray [facility] Evaluation + Plan note Future Appointments Appointment Date:02/24/2023 08:00:00 AM Scheduled Provider:Porsche AKHTAR MD Location:[facility] Appointment Type:URO Office Visit [facility] Evaluation + Plan note Future Appointments Appointment Date:02/24/2023 08:00:00 AM Scheduled Provider:Porsche AKHTAR MD Location:[facility] Appointment Type:URO Office Visit Future Scheduled Tests Laboratory* PT & PTT 04/20/22 * BUN 04/20/22 * Creatinine 04/20/22 * Electrolyte Panel 04/20/22 * CBC w/ Auto Diff [facility] App[facility]ments Appointment Date:06/17/2022 09:15:00 AM Scheduled Provider:Porsche AKHTAR MD Location:[facility] [place] Appointment Type:URO Office Visit Appointment Date:02/24/2023 08:00:00 AM Scheduled Provider:Porsche AKHTAR MD Location:[facility] [place] Appointment Type:URO Office Visit [facility] [place] evaluation + Plan note Future Appointments Appointment Date:06/11/2024 08:00:00 AM Scheduled Provider:Porsche AKHTAR MD Location:[facility] [place] Appointment Type:URO Office Visit [facility] [place] evaluation + Plan note Future Appointments Appointment Date:06/10/2025 08:00:00 AM Scheduled Provider:Porsche AKHTAR MD Location:[facility] Appointment Type:URO Office Visit [facility] [place] evaluation noteNo assessment information available [facility] Work Phone: evaluation note* Diagnosis Lumbar paraspinal [...] available for this section [facility] [place] Hospital Discharge instructions No data available for this section [facility] Dis[facility] instructionsAmbulatory Orders* Referral to PT / OT / Speech (PT/OT/SP) Location: None [facility] Work Phone: Hospital Discharge instructionsAmbulatory Orders* Referral to Weight Management Location: None [facility] Work Phone: Progress note No data available for this section [facility] (narrative)No reason for referral information availableMed[facility] Work Phone: Reason for visit Narrative* Rehabilitation - Outpatient (Routine) - Pending Review Specialty Diagnoses / Procedures Referred By Cindy cyr Referred To Contact Physical Therapy Diagnoses Low back pain, unspecified Procedures [place] PHYSICAL THERAPY EVALUATION LOW COMPLEX 20 MINS FL OFFICE/OUTPATIENT NEW HIGH MDM 60 MINUTES Colleen Aquino MD [address] [address] Phone: tel: fax: Michael Ram, PT [address] [address] Phone: tel: fax: Referral ID Status Reason Start Date Expiration Date V isits Requested Visits Authorized [id number] Pending Review 01/01/2025 06/30/2025 2 2 [facility] HealthcareReason for visit Narrative* Rehabilitation - Outpatient (Routine) - Authorized Specialty Diagnoses / Procedures Referred By Cindy cyr Referred To Contact Physical Therapy Diagnoses Low back pain, unspecified Procedures [place] PHYSICAL THERAPY EVALUATION LOW COMPLEX 20 MINS FL OFFICE/OUTPATIENT NEW HIGH MDM 60 MINUTES Colleen Aquino MD [address] [place] [address] Phone: tel: fax: Michael Ram, PT [address] [address] Phone: tel: fax: Referral ID Status Reason Start Date Expiration Date V isits Requested Visits Authorized [id number] Authorized 01/01/2025 03/03/2025 8 8 [facility] Narrative* Rehabilitation - Outpatient (Routine) - Closed Specialty Diagnoses / Procedures Referred By Cindy cyr Referred To Contact Physical Therapy Diagnoses Low back pain, unspecified Procedures [place] PHYSICAL THERAPY EVALUATION LOW COMPLEX 20 MINS FL OFFICE/OUTPATIENT NEW HIGH MDM 60 MINUTES Colleen Aquino MD 703 [facility] [address] [place] [address] Phone: tel: fax: Michael Ram, PT 112 [facility] [address] [place] [address] Phone: tel: fax: Referral ID Status Reason Start Date Expiration Date Visits Re quested Visits Authorized [id number] Closed 01/01/2025 03/03/2025 8 8 [facility] [...] December 26, 2024 End: December 26, 2024 Acute Care Surgeon Relationship Specialty Start Date End Date Asim Fernandez MD [address] [place] [facility] [place] [address] PCP - General Family Medicine 01/17/25 Acute Care Surgeon Relationship Specialty Start Date End Date Asim Fernandez MD [address] [place] [facility] [place] [address] PCP - General Family Medicine 01/17/25 Acute Care Surgeon Relationship Specialty Start Date End Date Asim Fernandez MD [address] [place] [facility] [place] [address] PCP - General Family Medicine 01/17/25 Team [...] content) DATE CREATED AUTHOR 07/07/2022 [facility] DATE CREATED AUTHOR AUTHOR'S ORGANIZ ATION 10/30/2024 [facility] DATE CREATED AUTHOR AUTHOR'S ORGANIZ ATION 12/15/2024 [facility] DATE CREATED AUTHOR AUTHOR'S ORGANIZ ATION 01/22/2025 [facility] DATE CREATED AUTHOR AUTHOR'S ORGANIZ ATION 04/26/2025 [facility] ysician Group Goals (unrecognized section and [...] ON THE PRIMARY CLINICAL RECORDS. [facility]. provides no warranty or guarantee of the accuracy or completeness of information in this document.
--- OUTSIDE RECORDS SUMMARY | 2025-05-28 07:35 | XMS_ITS | Clinical Summary ---
Author Organization [facility] Address [address] [place] [address], [address] [place] [address] Care Team Providers Care Calender Runner Name Role Phone Unavailable Primary Care Provider [...]
--- NOTE | 2025-05-28 07:48 | XR_ITS ---
The [address] [address] Patient Name: LIZ SHELBY MRN: [id number] date: 1965 Sex: M Assigned Patient Location: RAD Current Patient Location: [employer] Accession/Order Number: [id number] Exam Date: 05/28/2025 07:40 Report Date: 05/28/2025 08:28 At the request of: NANCY VERDIN MD Procedure: XR foreign body eye ZAIRE Orbits 2 views. Reason for exam: Pre-MRI. FINDINGS: No radiopaque foreign body is seen. No significant paranasal sinus disease. Nasal septum is relatively midline. No bony destruction. XR/XR foreign body eye ZAIRE IMPRESSION: No radiopaque foreign body. Impression dictated by: Chi Mcqueen Jr., D.O. 05/28/2025 8:28 AM Dictation Location: [place] [address] Electronically authenticated by: [id number] Y Date: 05/28/2025 08:28
== END 2025-05-28 07:33 | disposition home or self-care (01) ==
LOC: RAD 07:32
PROVIDERS: PCP Family Medicine; Visit Provider Family Medicine
DX: R41.82 Altered mental status, unspecified (principal); Z01.818 Encounter for other preprocedural examination
CPT/HCPCS: 70030; 70551

== ENCOUNTER 2025-06-04 10:51 | Outpatient (OUT) | payer BC, SELFPAY ==
--- OUTSIDE RECORDS SUMMARY | 2025-06-04 10:53 | XMS_ITS | Clinical Summary ---
Author Organization [facility] Address [id number] [place] [address] Care Team Providers Care Supervisor [employer]ler Printing Name Role Phone Unavailable Primary Care Provider [...]
== END 2025-06-04 10:52 | disposition home or self-care (01) ==
LOC: SLEEP 10:51
PROVIDERS: PCP Family Medicine; Visit Provider Psychiatry & Neurology Neurology
DX: G47.33 Obstructive sleep apnea (adult) (pediatric) (principal)

== ENCOUNTER 2025-06-09 09:16 | Outpatient (OUT) | payer BC, SELFPAY ==
--- OUTSIDE RECORDS SUMMARY | 2025-06-09 09:19 | XMS_ITS | Clinical Summary ---
Author Organization [facility] Address [address] [place] [address], [address] [place] [address] Care Team Providers Care Finishing Room Operator Name Role Phone Unavailable Primary Care Provider [...]
--- OUTSIDE RECORDS SUMMARY | 2025-06-09 09:19 | XMS_ITS | Clinical Summary ---
Author Organization [facility] Address [id number] [place] [address] Care Team Providers Care Professional Volleyball Player Name Role Phone Unavailable Primary Care Provider [...]
--- OUTSIDE RECORDS SUMMARY | 2025-06-09 09:31 | XMS_ITS | CCD ---
Author Organization [facility] CliniSywa Care Team Providers Care Signal And Communications Maintainer Name Role Phone Asim Fernandez Primary Care Physician [phone] DR ASIM FERNANDEZ Primary Care Unavailable GIOVANA, DR PORSCHE Kwna Consulting Unavailable COOK, DR PORSCHE Kwan Admitting [...] Asim Fernandez MD Primary Care Provider Turovskaya HUMAN RESOURCES TRAINEE, Colleen Attending Provider Unavailable Primary Care Provider [...] Attending Provider Tanisha Ocampo DO Other Provider [phone] Nithin CANTOR, Williams Amaral Attending Provider Turovskaya, [...] Allergy Hyperactive behavior (finding) [facility] [place] Medications Current Medications Medication Drug Class(es) Dates [...] 30 cap(s), Refills(s) 2, [facility]acy: [id number], 188, cm, 06/10/22 9:57:00 EDT, Height/Length Dosing, [...] Start: 02-19-2019 take 2 tablets by mo [facility] once daily in the morning hydrochlorothiazide 25 [...] group home (current) drug therapy; Translations: [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 Mzlj-jz-ceakuexs intervertebral space narrowing with mediastinal L3-L5. Multilevel moderate severe facet arthropathy greatest L4-S1. No fracture malalignment multilevel central canal and foraminal encroachment is better evaluated on recent MRI. CT/CT lumbar spine wo con IMPRESSION: Moderate severe multilevel degenerative changes. Negative acute fracture or malalignment Impression dictated by: Christopher Mendes M.D. 03/18/2025 9:20 AM Dictation Location: [place] [address] Transcribed By: [facility] 03/18/25 0920 Dictated By: Christopher Mendes MD 03/18/25 0916 Signed By: 03/18/25 0920 Normal [facility] MR lumbar spine wo conon MR lumbar spine wo con [facility] [place] [address] [place] [address] MRI Report Signed Patient: Liz Hernandez MR#: [id number] 5 : 1965 Acct:[id number] Age/Sex: 59 / M ADM Date: 02/28/25 Loc: Room: Type: [facility] Attending Dr: Colleen Aquino APRN Copies to: [...] Figueroa M.D. 02/28/2025 10:53 AM Dictation Location: [place] [address] Transcribed By: ARNULFO 02/28/25 1053 Dictated By: Liz Figueroa II, MD 02/28/25 1044 Signed By: 02/28/25 1053 Normal [facility] Magnetic resonance imaging r eportOrdered By: Liz Figueroa on 02-28-2025 Study report [facility] [place] [address] [place] [address] MRI Report Signed Patient: Liz Hernandez MR#: [id number] : 1965 Acct:[id number] Age/Sex: 59 / M ADM Date: 5 Loc: Room: Type: [facility] Attending Dr: Colleen Aquino APRN Copies to: Colleen Auqino APRN~ Ordering Provider: Colleen Aquino APRN Date [...] Figueroa M.D. 02/28/2025 10:53 AM Dictation Location: [place] [address] Transcribed By: ARNULFO 02/28/25 1053 Dictated By: Liz Figueroa II, MD 02/28/25 1044 Signed By: 02/28/[address] [facility] Work Phone: X-ray reportOrdered By: Foreign Mcqueen on 12-26-2024 Study report [facility] Main [address] [address] XRay Report Signed Patient: Liz Hernandez MR#: [id number] : 1965 Acct:[id number] Age/Sex: 59 / M ADM Date: 5 Loc: XD Room: Type: REG CLI Attending Dr: Colleen Aquino HUMAN [employer] TRAINEE Copies to: Colleen Aquino APRN~ Ordering Provider: [...] Mcqueen Jr., D.OCullen12/26/2024 2:42 PM Dictation Location: [place] [address] Transcribed By: [facility] 12/26/24 1442 Dictated By: Chi Mcqueen Jr, DO 12/26/24 1441 Signed By: 12/26/[address] [facility] XR lumbar spine 6V w bending on 12-26-2024 XR lumbar spine 6V w bending [facility] Main [address] [address] XRay Report Signed Patient: Liz Hernandez MR#: [id number] 5 : 1965 Acct:[id number] Age/Sex: 59 / M ADM Date: 12/26/24 Loc: XD Room: Type: REG CLI Attending Dr: Colleen Aquino HUMAN RESOURCES TRAINEE Copies to: Colleen Aquino APRN Ordering Provider: Colleen Turovskaya, HUMAN RESOURCES TRAINEE Date of Service: 12/26/24 XR/XR lumbar spine [...] Mcqueen Jr., D.O.12/26/2024 2:42 PM Dictation Location: [place] [address] Transcribed By: [facility] 12/26/24 1442 Dictated By: Chi Mcqueen Jr, DO 12/26/24 1441 Signed By: 12/26/24 1442 Normal [facility] Ambulatory Visit Summaryon 0 10-29-2024 Ambulatory Visit [...] CANTOR, Porsche Kwan Where: [facility] [address] [place] [address]- Medications What How Much When Instructions Unchanged [...] for choosing us for your care. Normal [facility] Reminderson 10-29-2024 Reminders Reminders From: Alexia Vega LPN To: GSN - Clinical; Sent: 10/29/2024 09:31:53 EST Show up: 02/16/2029 07:00:00 EDT Subject: colonoscopy recall Due Date/Time: 03/04/2029 07:00:00 EDT Reminder/Recall Patient is due for screening colonoscopy 03/2029. Normal [facility] Urology Office/Clinic Noteon 09-12-2024 Urology Office/Clinic [...] and history for this patient from Dr. Ahktar. I have reviewed and verified the staff [...] Urnls Dip Stick Auto w/o Microscopy POC 47507 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) Metabolic workup 07/08/2024: [...] Urnls Dip Stick Auto w/o Microscopy POC 86765 Follow-up With When Contact Information GIOVANA CANTOR, Porsche Kwan, URL [address] [place] [id number]- Additional Instructions: Follow up in Jun 2025 w KUB Patient Education Kidney Stones, Foiy-yz-Crce Cecilio Alvarez, personally scribed for ELSIE Hawkins [...] Elevated PSA History of procedure Hx of group home use of blood thinners Hyperuricosuria Hypocitraturia Kidney stone Kidney stone Leukocytosis Lumbar radiculopathy Neuropathy Nocturia Obesity Osteoarthritis Osteoarthritis Type 2 diabetes mellitus without complication Historical GERD (gastroesophageal reflux disease) Neoplasm of uncertain behavior of skin Th (more content not included)... Normal [facility] Comment on above: Result Comment: Elec [...] Porsche AKHTAR MD Where: [facility] Andrew 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 (more content not included)... Normal [facility] Ambulatory Visit Summaryon 1 Ambulatory Visit [...] Porsche AKHTAR MD Where: [facility] [address] [place] 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 (more content not included)... Normal [facility] Urology Office/Clinic Noteon 06-11-2024 Urology Office/Clinic [...] KUB was read as negative at the [facility] but to my review there may [...] Information GIOVANA CANTOR, Porsche Kwan, URL [address] [place] [address]- Additional Instructions: 1 yr with KUB and [...] with voice recognition artificial intelligence software, specifically [employer], [employer] and or [employer]. Substitutions may have occurred due to the inherent limitations of voice recognition and artificial intelligence software. 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 Normal [facility] Comment on above: Result Comment: Elec [...] by: MANSOOR LIMA Date: 2022-06-16 18:56 Normal [facility] XR KUB 1 VIEWon 06-09-2022 XR [...] MANSOOR LIMA Date: 2022-06-09 17:41 Normal [facility] CBC AUTO DIFFon 05-29-2022 BASO # 0.1 103/ul Normal 0.0-0.1 [facility] Comment on above: Performed By: #### C BC ####[facility] [address] [place], [place] [address]VhCullen Aldrich Basophils/100 WBC (Bld) 0.2 % Normal 0.2-2.0 [facility] Comment on above: Performed By: #### C BC ####[facility] [address] [place] [id number]. Wyatt Aldrich EO # 0.0 103/ul Normal 0.0-0.7 [facility] Comment on above: Performed By: #### C BC ####[facility] [address] [place] [id number]. Wyatt Aldrich Eosinophils/100 WBC (Bld) 0.2 % Critically low 0.9-7.0 [facility] Comment on above: Performed By: #### C BC ####[facility] [address] [place], [place] [address]Dr. Wyatt Aldrich Erythrocyte distribution width (RBC) [Ratio] 12.3 % Normal 11.0-15.0 [facility] Comment on above: Performed By: #### C BC ####[facility] [address] [place], [place] [address]Dr. Wyatt Aldrich Hematocrit (Bld) [Volume fraction] 45.9 % Normal 42.0-54.0 [facility] Comment on above: Performed By: #### C BC ####[facility] [address] [place] [address]Dr. Wyatt Aldrich Hemoglobin (Bld) [Mass/Vol] 15.2 g/dL Normal 14.0-18.0 [facility] Comment on above: Performed By: #### C BC ####[facility] [address] [place] [address]Dr. Wyatt Aldrich IG # 0.09 10e3/ul Critically high 0.00-0.03 [facility] Comment on above: Performed By: #### C BC ####[facility] [address] [place] [address]Dr. Wyatt Aldrich IG % 0.4 % Normal 0.0-0.5 [facility] Comment on above: Performed By: #### C BC ####[facility] [address] [place], [place] [address]Dr. Wyatt Aldrich LYMPH # 1.1 103/ul Critically low 1.2-3.8 [facility] Comment on above: Performed By: #### C BC ####[facility] [address] [place] [address]Dr. Wyatt Valdemar Lymphocytes/100 WBC (Bld) 5.1 % Critically low 20.5-60.0 [facility] Comment on above: Performed By: #### C BC ####[facility] [address] [place] [address]Dr. Jossielalo Aldrich MANUAL DIFF REQ NO Normal [facility] Comment on above: Performed By: #### C BC ####[facility] [address] [place] [id number]. Wyatt Valdemar MCH (RBC) [Entitic mass] 30.2 pg Normal 25.9-34.0 [facility] Comment on above: Performed By: #### C BC ####[facility] [address] [place], [place] [address]Dr. Jossielalo Aldrich MCHC (RBC) [Mass/Vol] 33.1 g/dL Normal 29.9-35.2 [facility] Comment on above: Performed By: #### C BC ####[facility] [address] [place], [place] [address]Dr. Wyatt Valdemar MCV (RBC) [Entitic vol] 91.3 fL Normal 80.0-94.0 [facility] Comment on above: Performed By: #### C BC ####[facility] [address] [place], [place] [address]Dr. Wyatt Aldrich MONO # 1.4 103/ul Critically high 0.3-0.8 [facility] Comment on above: Performed By: #### C BC ####[facility] [address] [place], [place] [address]Dr. Jossielalo Aldrich Monocytes/100 WBC (Bld) 6.7 % Normal 1.7-12.0 [facility] Comment on above: Performed By: #### C BC ####[facility] [address] [place], [place] [address]Dr. Wyatt Aldrich NEUT # 18.5 103/ul Critically high 1.4-6.5 [facility] Comment on above: Performed By: #### C BC ####[facility] [address] [place], [place] [address]Ke. Wyatt Aldrich Neutrophils/100 WBC (Bld) 87.4 % Critically high 43.0-75.0 [facility] Comment on above: Performed By: #### C BC ####[facility] [address] [place], [place] [address]Ha. Wyatt Aldrich Platelet mean volume (Bld) [Entitic vol] 9.3 fL Critically low 9.5-13.5 [facility] Comment on above: Performed By: #### C BC ####[facility] [address] [place], [place] [address]Yz. Wyatt Aldrich PLT 303 103/ul Normal 150-450 [facility] Comment on above: Performed By: #### C BC ####[facility] [address] [place], [place] [address]Rq. Wyatt Aldrich RBC 5.03 106/ul Normal 4.70-6.10 [facility] Comment on above: Performed By: #### C BC ####[facility] [address] [place], [place] [address]Me. Wyatt Aldrich WBC 21.2 103/ul Critically high 4.0-11.0 [facility] Comment on above: Performed By: #### C BC ####[facility] [address] [place], [place] [address]. Wyatt Ald[address] CT ABD/PELVIS WO CONon 05-29 [...] by: BOO GUZMAN Date: 2022-05-29 17:32 Normal [facility] ER URINE PROFILEon 2 Bilirubin Ql (U) Negative Normal NEGATIVE [facility] Comment on above: Performed By: #### U MICRO, ERUR #### [facility] [address] [place] [address] Dr. Wyatt Aldrich Clarity (U) CLEAR Normal CLEAR [facility] Comment on above: Performed By: #### U MICRO, ERUR #### [facility] [address] [place] [address] Dr. Wyatt Aldrich Color (U) LT. YELLOW Normal YELLOW [facility] Comment on above: Performed By: #### U MICRO, ERUR #### [facility] [address] [place] [address] [address] Wyatt [place] A micrscopic examination will be performed if indicated. Normal [facility] Comment on above: Performed By: #### U MICRO, ERUR #### [facility] [address] [place] [address] [address] Wyatt Aldrich Glucose Ql (U) Negative Normal NEGATIVE [facility] Comment on above: Performed By: #### U MICRO, ERUR #### [facility] [address] [place] [address] [address] Wyatt Aldrich Hemoglobin Ql (U) TRACE-INTACT Abnormal NEGATIVE [facility] Comment on above: Performed By: #### U MICRO, ERUR #### [facility] [address] [place] [address] Dr. Wyatt Aldrich Ketones Ql (U) Negative Normal NEGATIVE [facility] Comment on above: Performed By: #### U MICRO, ERUR #### [facility] [address] [place] [address] Dr. Wyatt Aldrich LEUKOCYTES Negative Normal NEGATIVE [facility] Comment on above: Performed By: #### U MICRO, ERUR #### [facility] [address] [place] [address] Dr. Wyatt Aldrich Nitrite Ql (U) Negative Normal NEGATIVE [facility] Comment on above: Performed By: #### U MICRO, ERUR #### [facility] [address] [place] [address] Dr. Wyatt Aldrich pH (U) 7.0 [pH] Normal 5-9 [facility] Comment on above: Performed By: #### U MICRO, ERUR #### [facility] [address] [place] [address] Dr. Wyatt Aldrich SPEC GRAVITY 1.020 Normal 1.005-<=1.025 [facility] Comment on above: Performed By: #### U MICRO, ERUR #### [facility] [address] [place] [address] Dr. Wyatt Aldrich UA PROTEIN Negative Normal NEGATIVE/ TRACE [facility] Comment on above: Performed By: #### U MICRO, ERUR #### [facility] [address] [place] [address] Dr. Wyatt Aldrich UR MICRO IND INDICATED Normal [facility] Comment on above: Performed By: #### U MICRO, ERUR #### [facility] [address] [place] [address] Dr. Wyatt Aldrich Urobilinogen Qn (U) 0.2 {Sharon'U}/dL Normal 0.2 - 1. 0 [facility] Comment on above: Performed By: #### U MICRO, ERUR #### [facility] [address] [place] [address] Dr. Wyatt Aldrich PROF 14(COMP METB)on 022 Albumin [Mass/Vol] 3.9 g/dL Normal 3.4-5.[address] [facility] Comment on above: Performed By: #### C MP #### [facility] [address] [place] [address] Dr. Wyatt Aldrich Albumin/Globulin [Mass ratio] 1.1 {ratio} Normal [facility] Comment on above: Performed By: #### C MP #### [facility] [address] [place] [address] Dr. Wyatt Aldrich ALP [Catalytic activity/Vol] 70 U/L Normal 46-116 [facility] Comment on above: Performed By: #### C MP #### [facility] [address] [place] [address] Dr. Wyatt Aldrich ALT [Catalytic activity/Vol] 38 U/L Normal 16-63 [facility] Comment on above: Performed By: #### C MP #### [facility] [address] [place] [address] Dr. Wyatt Aldrich Anion gap [Moles/Vol] 12.6 mmol/L Normal [facility] Comment on above: Performed By: #### C MP #### [facility] [address] [place] [address] Dr. Wyatt Aldrich AST [Catalytic activity/Vol] 20 U/L Normal 15-37 [facility] Comment on above: Performed By: #### C MP #### [facility] [address] [place] [address] Dr. Wyatt Aldrich Bilirubin [Mass/Vol] 0.6 mg/dL Normal 0.2-1.0 [facility] Comment on above: Performed By: #### C MP #### [facility] [address] [place] [address] Dr. Wyatt Aldrich Calcium [Mass/Vol] 8.7 mg/dL Normal 8.5-10.[address] [facility] Comment on above: Performed By: #### C MP #### [facility] [address] [place] [address] [address] Wyatt Aldrich Chloride [Moles/Vol] 95 mmol/L Critically low 98-107 [facility] Comment on above: Performed By: #### C MP #### [facility] [address] [place] [address] Dr. Wyatt Aldrich CO2 [Moles/Vol] 29.9 mmol/L Normal 21.0-32.0 [facility] Comment on above: Performed By: #### C MP #### [facility] [address] [place] [address] [address] Wyatt Aldrich Creatinine [Mass/Vol] 1.04 mg/dL Normal 0.70-1.30 [facility] Comment on above: Performed By: #### C MP #### [facility] [address] [place] [address] [address] Wyatt Aldrich EGFR-AF RUSSIAN >60 Normal >=60 [facility] Comment on above: Performed By: #### C MP #### [facility] [address] [place] [address] [address] Wyatt Aldrich EGFR-NON AF RUSSIAN >60 Normal >=60 [facility] Comment on above: Performed By: #### C MP #### [facility] [address] [place] [address] Dr. Wyatt Aldrich Globulin (S) [Mass/Vol] 3.4 g/dL Normal [facility] Comment on above: Performed By: #### C MP #### [facility] [address] [place] [address] [address] Wyatt Aldrich Glucose [Mass/Vol] 148 mg/dL Critically high 74-106 [facility] Comment on above: Performed By: #### C MP #### [facility] [address] [place] [address] Dr. Wyatt Aldrich Potassium [Moles/Vol] 4.5 mmol/L Normal 3.5-5.1 [facility] Comment on above: Performed By: #### C MP #### [facility] [address] [place] [address] [address] Wyatt Aldrich Protein [Mass/Vol] 7.3 g/dL Normal 6.4-8.[address] [facility] Comment on above: Performed By: #### C MP #### [facility] [address] [place] [address] [address] Wyatt Aldrich Sodium [Moles/Vol] 133 mmol/L Critically low 136-145 [facility] Comment on above: Performed By: #### C MP #### [facility] [address] [place] [address] [address] Wyatt Aldrich Urea nitrogen [Mass/Vol] 15.0 mg/dL Normal 7.0-18.0 [facility] Comment on above: Performed By: #### C MP #### [facility] [address] [place] [address] Dr. Wyatt Aldrich Urea nitrogen/Creatinine [Mass ratio] 14.4 mg/mg Normal [facility] Comment on above: Performed By: #### C MP #### [facility] [address] [place] [address] Dr. Wyatt Aldrich URINE MICROSCOPIC ONLYon BACTERIA NONE SEEN Normal NONE SEEN [facility] Comment on above: Performed By: #### U MICRO, ERUR #### [facility] [address] [place] [address] Dr. Wyatt Aldrich Bacteria identified Cx Nom (U) NOT INDICATED Normal [facility] Comment on above: Performed By: #### U MICRO, ERUR #### [facility] [address] [place] [address] Dr. Wyatt Aldrich CAST NONE SEEN Normal NONE SEEN [facility] Comment on above: Performed By: #### U MICRO, ERUR #### [facility] [address] [place] [address] Dr. Wyatt Aldrich Crystals LM Nom (Urine sed) NONE SEEN Normal NONE SEEN [facility] Comment on above: Performed By: #### U MICRO, ERUR #### [facility] [address] [place] [address] Dr. Wyatt Aldrich Epithelial cells LM Ql (Urine sed) NONE SEEN Normal NONE SEEN /RARE [facility] Comment on above: Performed By: #### U MICRO, ERUR #### [facility] [address] [place] [address] Dr. Wyatt Aldrich MUCOUS NONE SEEN Normal NONE SEEN [facility] Comment on above: Performed By: #### U MICRO, ERUR #### [facility] [address] [place] [address] Dr. Wyatt Aldrich RBC 2-5 Abnormal 0-2 [facility] Comment on above: Performed By: #### U MICRO, ERUR #### [facility] [address] [place] [address] [address] Wyatt Aldrich WBC NONE SEEN Normal NONE SEEN [facility] Comment on above: Performed By: #### U MICRO, ERUR #### [facility] [address] [place] [address] [address] Wyatt Aldrich T4 LABCORPon 01-29-2022 T4 [Mass/Vol] 9.1 ug/dL Normal 4.5-12.0 [facility] Comment on above: Performed By: #### T 4LC ####[facility] [address] [place] [id number]. Wyatt Aldrich CBC AUTO DIFFon 01-28-2022 BASO # 0.1 103/ul Normal 0.0-0.1 [facility] Comment on above: Performed By: #### C BC ####[facility] [address] [place], [place] [address]DrCullen Aldrich Basophils/100 WBC (Bld) 0.6 % Normal 0.2-2.0 [facility] Comment on above: Performed By: #### C BC ####[facility] R[address]mu[address]ixz[address] [place], [place] [address]Dr. Wyatt Aldrich EO # 0.2 103/ul Normal 0.0-0.7 [facility] Comment on above: Performed By: #### C BC ####[facility] Haaymyxzkn[address] [place], [place] [address]DrCullen Aldrich Eosinophils/100 WBC (Bld) 2.4 % Normal 0.9-7.0 [facility] Comment on above: Performed By: #### C BC ####[facility] Xwlqlzdxkq[address] [place], [place] [address]DrCullen Aldrich Erythrocyte distribution width (RBC) [Ratio] 12.5 % Normal 11.0-15.0 [facility] Comment on above: Performed By: #### C BC ####[facility] Xecfrdmbea[address] [place], [place] [address]DrCullen Aldrich Hematocrit (Bld) [Volume fraction] 43.5 % Normal 42.0-54.0 [facility] Comment on above: Performed By: #### C BC ####[facility] [address] [place] [address]DrCullen Aldrich Hemoglobin (Bld) [Mass/Vol] 14.4 g/dL Normal 14.0-18.0 [facility] Comment on above: Performed By: #### C BC ####[facility] [address]rjchr[address] [place] [address]Dr. Wyatt Aldrich IG # 0.03 10e3/ul Normal 0.00-0.03 [facility] Comment on above: Performed By: #### C BC ####[facility] Itexrsnnzm[address] [place], [place] [address]DrCullen Aldrich IG % 0.4 % Normal 0.0-0.5 [facility] Comment on above: Performed By: #### C BC ####[facility] Xxzscbszbs[address] [place], [place] [address]DrCullen Aldrich LYMPH # 2.1 103/ul Normal 1.2-3.8 [facility] Comment on above: Performed By: #### C BC ####[facility] Htroumyqeq[address] [place], [place] [address]DrCullen Aldrich Lymphocytes/100 WBC (Bld) 24.8 % Normal 20.5-60.0 [facility] Comment on above: Performed By: #### C BC ####[facility] [address] [place] [address]DrCullen Aldrich MANUAL DIFF REQ NO Normal [facility] Comment on above: Performed By: #### C BC ####[facility] [address]efhm[address] [place] [id number] Aldrich MCH (RBC) [Entitic mass] 30.6 pg Normal 25.9-34.0 [facility] Comment on above: Performed By: #### C BC ####[facility] [address]dmqkbnmq25[address] [place] [id number] Aldrich MCHC (RBC) [Mass/Vol] 33.1 g/dL Normal 29.9-35.2 [facility] Comment on above: Performed By: #### C BC ####[facility] [address]qlewsg[address] [place] [address]DrCullen Wyatt Valdemar MCV (RBC) [Entitic vol] 92.6 fL Normal 80.0-94.0 [facility] Comment on above: Performed By: #### C BC ####[facility] [address]vwvc[address] [place] [address]DrCullen Aldrich MONO # 0.6 103/ul Normal 0.3-0.8 [facility] Comment on above: Performed By: #### C BC ####[facility] Hecyqvgdnv6[address] [place] [address]DrCullen Aldrich Monocytes/100 WBC (Bld) 7.7 % Normal 1.7-12.0 [facility] Comment on above: Performed By: #### C BC ####[facility] C[address]smolymsf[address] [place], [place] [address]Dr. Wyatt Aldrich NEUT # 5.3 103/ul Normal 1.4-6.5 [facility] Comment on above: Performed By: #### C BC ####[facility] Ydwlmlahmn[address] [place], [place] [address]Dr. Wyatt Aldrich Neutrophils/100 WBC (Bld) 64.1 % Normal 43.0-75.0 [facility] Comment on above: Performed By: #### C BC ####[facility] Sexagfjxoq[address] [place] [address]DrCullen Aldrich Platelet mean volume (Bld) [Entitic vol] 9.4 fL Critically low 9.5-13.5 [facility] Comment on above: Performed By: #### C BC ####[facility] Stqiccnrgx[address] [place], [place] [address]Dr. Wyatt Aldrich PLT 280 103/ul Normal 150-450 [facility] Comment on above: Performed By: #### C BC ####[facility] [address]ch[address]yk[address] [place] [id number]. Wyatt Aldrich RBC 4.70 106/ul Normal 4.70-6.10 [facility] Comment on above: Performed By: #### C BC ####[facility] Qrltyyyypa[address] [place] [address]Dr. Wyatt Aldrich WBC 8.3 103/ul Normal 4.0-11.0 [facility] Comment on above: Performed By: #### C BC ####[facility] [address]rzjxkiq[address] [place] [id number]. Wyatt Aldrich FREE T3on 01-28-2022 FREE T3 2.70 pg/mlL Normal 2.18-3.98 [facility] Comment on above: Performed By: #### L IPID, CMP, TSH, FT3 ####[facility] [address]skas[address] [place] [address]Dr. Wyatt Aldrich GLYCOHEMOGLOBIN A1Con 2021 ADA RECOMMENDATION SEE BELOW Normal The [facility] Comment on above: Result Comment: ADA RECOMMENDED LIMIT 4.0 - 6.0 ADA THERAPEUTIC TARGET < 7.0 ACTION SUGGESTED > 7.0 Performed By: #### A 1C #### [facility] [address] [place] [address] [address] Wyatt Aldrich Glucose [Mass/Vol] 143 mg/dL Normal [facility] Comment on above: Performed By: #### A 1C #### [facility] [address] [address] [address] Wyatt Aldrich HbA1c (Bld) [Mass fraction] 6.6 % Critically high 4.5-6.2 [facility] Comment on above: Performed By: #### A 1C #### [facility] [address] [address] [address] Wyatt Aldrich LIPID PROFILEon 01-28-2022 CHOL-HDL RATIO NORM SEE BELOW Normal [facility] Comment on above: Result Comment: 3.3 - 4.4 LOW RISK 4.4 - 7.1 AVERAGE RISK 7.1 - 11.0 MODERATE RISK >11.0 HIGH RISK Performed By: #### L IPID, CMP, TSH, FT3 ####[facility] [address]cke[address] [place] [address]Dr. Wyatt Aldrich Cholesterol [Mass/Vol] 176 mg/dL Normal <=200 [facility] Comment on above: Performed By: #### L IPID, CMP, TSH, FT3 ####[facility] [address] [place] [address]Dr. Wyatt Aldrich Cholesterol in HDL [Mass/Vol] 35 mg/dL Critically low 40-60 [facility] Comment on above: Performed By: #### L IPID, CMP, TSH, FT3 ####[facility] [address] [place] [address]Dr. Wyatt Aldrich Cholesterol in LDL [Mass/Vol] 94.4 mg/dL Normal [facility] Comment on above: Performed By: #### L IPID, CMP, TSH, FT3 ####[facility] [address]wor[address] [place] [address]Dr. Wyatt Aldrich Cholesterol.total/Ch olesterol in HDL [Mass ratio] 5.0 {ratio} Normal [facility] Comment on above: Performed By: #### L IPID, CMP, TSH, FT3 ####[facility] [address]ct[address] [place] [address]Dr. Wyatt Aldrich HDL NORMAL > or = 60 mg/dl - LO W CARDIOVASCULAR RISK <40 mg/dl - HIGH CARDIOVASCULAR RISK Normal [facility] Comment on above: Performed By: #### L IPID, CMP, TSH, FT3 ####[facility] [address]pezlh[address] [place] [address]Dr. Wyatt Aldrich LDL CALC NORMAL SEE BELOW Normal The [facility] Comment on above: Result Comment: <100 mg/dl OPTIMAL 100 - 129 mg/dl NEAR OR ABOVE OPTIMAL 130 - 159 mg/dl BORDERLINE HIGH 160 - 189 mg/dl HIGH >190 mg/dl VERY HIGH Performed By: #### L IPID, CMP, TSH, FT3 ####[facility] [address]ttmxt[address] [place] [address]Dr. Wyatt Aldrich Triglyceride [Mass/Vol] 233 mg/dL Critically high <=150 [facility] Comment on above: Performed By: #### L IPID, CMP, TSH, FT3 ####[facility] [address]bv[address]uydiv[address] [place] [address]Dr. Wyatt Aldrich VLDL CALC 46.6 mg/dL Normal [facility] Comment on above: Performed By: #### L IPID, CMP, TSH, FT3 ####[facility] Cthpcbknsk[address] [place] [address]Dr. Wyatt Aldrich OCC BLD IMMUNO SCREENon 01-03 OCCULT BLOOD Negative Normal NEGATIVE [facility] Comment on above: Performed By: #### O BSCRN #### [facility] [address] [address] [address] Wyatt Aldrich PROF 14(COMP METB)on 022 Albumin [Mass/Vol] 3.4 g/dL Normal 3.4-5.[address] [facility] Comment on above: Performed By: #### L IPID, CMP, TSH, FT3 ####[facility] [address] [place] [address]Dr. Wyatt Aldrich Albumin/Globulin [Mass ratio] 1.0 {ratio} Normal [facility] Comment on above: Performed By: #### L IPID, CMP, TSH, FT3 ####[facility] [address] [place] [address]Dr. Wyatt Aldrich ALP [Catalytic activity/Vol] 65 U/L Normal 46-116 [facility] Comment on above: Performed By: #### L IPID, CMP, TSH, FT3 ####[facility] [address]du[address] [place] [address]Dr. Wyatt Aldrich ALT [Catalytic activity/Vol] 45 U/L Normal 16-63 [facility] Comment on above: Performed By: #### L IPID, CMP, TSH, FT3 ####[facility] [address]nyzr[address] [place] [address]Dr. Wyatt Alrdich Anion gap [Moles/Vol] 9.7 mmol/L Normal [facility] Comment on above: Performed By: #### L IPID, CMP, TSH, FT3 ####[facility] [address]fxs[address] [place] [address]Dr. Wyatt Aldrich AST [Catalytic activity/Vol] 20 U/L Normal 15-37 [facility] Comment on above: Performed By: #### L IPID, CMP, TSH, FT3 ####[facility] [address]ldqz[address] [place] [address]Dr. Wyatt Aldrich Bilirubin [Mass/Vol] 0.4 mg/dL Normal 0.2-1.0 [facility] Comment on above: Performed By: #### L IPID, CMP, TSH, FT3 ####[facility] [address]puqdu[address] [place] [address]Dr. Wyatt Aldrich Calcium [Mass/Vol] 8.5 mg/dL Normal 8.5-10.[address] [facility] Comment on above: Performed By: #### L IPID, CMP, TSH, FT3 ####[facility] Atyuputdly[address] [place], [place] [address]Dr. Wyatt Aldrich Chloride [Moles/Vol] 101 mmol/L Normal 98-107 [facility] Comment on above: Performed By: #### L IPID, CMP, TSH, FT3 ####[facility] Ucrppmmgum[address] [place], [place] [address]Dr. Wyatt Aldrich CO2 [Moles/Vol] 33.3 mmol/L Critically high 21.0-32.0 [facility] Comment on above: Performed By: #### L IPID, CMP, TSH, FT3 ####[facility] [address]ew[address] [place] [address]Dr. Wyatt Aldrich Creatinine [Mass/Vol] 0.77 mg/dL Normal 0.70-1.30 [facility] Comment on above: Performed By: #### L IPID, CMP, TSH, FT3 ####[facility] [address] [place] [address]Dr. Wyatt Aldrich EGFR-AF RUSSIAN >60 Normal >=60 [facility] Comment on above: Performed By: #### L IPID, CMP, TSH, FT3 ####[facility] Ts[address]eyeb[address] [place] [address]Dr. Wyatt Aldrich EGFR-NON AF RUSSIAN >60 Normal >=60 [facility] Comment on above: Performed By: #### L IPID, CMP, TSH, FT3 ####[facility] P[address]prrceya[address] [place] [address]Dr. Wyatt Aldrich Globulin (S) [Mass/Vol] 3.3 g/dL Normal [facility] Comment on above: Performed By: #### L IPID, CMP, TSH, FT3 ####[facility] [address]xrm[address] [place] [address]Dr. Wyatt Aldrich Glucose [Mass/Vol] 137 mg/dL Critically high 74-106 [facility] Comment on above: Performed By: #### L IPID, CMP, TSH, FT3 ####[facility] [address]fpefuhi[address] [place], [place] [address]Dr. Wyatt Aldrich Potassium [Moles/Vol] 4.0 mmol/L Normal 3.5-5.1 [facility] Comment on above: Performed By: #### L IPID, CMP, TSH, FT3 ####[facility] Vfcvx[address]wht[address] [place], [place] [address]Dr. Wyatt Aldrich Protein [Mass/Vol] 6.7 g/dL Normal 6.4-8.2 [facility] Comment on above: Performed By: #### L IPID, CMP, TSH, FT3 ####[facility] V[address]zefke[address] [place], [place] [address]Dr. Wyatt Aldrich Sodium [Moles/Vol] 140 mmol/L Normal 136-145 [facility] Comment on above: Performed By: #### L IPID, CMP, TSH, FT3 ####[facility] C[address]qmqmisz[address] [place], [place] [address]Dr. Wyatt Aldrich Urea nitrogen [Mass/Vol] 13.0 mg/dL Normal 7.0-18.0 [facility] Comment on above: Performed By: #### L IPID, CMP, TSH, FT3 ####[facility] Zqnfwghsqi[address] [place], [place] [address]Dr. Wyatt Aldrich Urea nitrogen/Creatinine [Mass ratio] 16.9 mg/mg Normal [facility] Comment on above: Performed By: #### L IPID, CMP, TSH, FT3 ####[facility] [address] [place], [place] [address]Pd. Wyatt Aldrich TSHon 01-28-2022 TSH 5.562 uIU/mL Critically high 0.358-3.740 [facility] Comment on above: Performed By: #### L IPID, CMP, TSH, FT3 ####[facility] [address] [place], [place] [address]Tg. Wyatt Aldrich TSH RANGE SEE BELOW Normal [facility] Comment on above: Result Comment: <0.3 4 UIU/ml HYPERTHYROID 0.34-5.60 UIU/ml EUTHYROID >5.60 UIU/ml HYPOTHYROID Performed By: #### L IPID, CMP, TSH, FT3 ####[facility] [address] [place], [place] [address]Xq. Wyatt Aldrich XR KUB 1 VIEWon 01-20-2022 [...] MANSOOR LIMA Date: 2022-01-20 14:12 Normal [facility] MRI LSPINE WO W CONon 2021 [...] by: TANISHA CHIU Date: 2021-10-04 11:23 Normal [facility] XR LSPINE MIN 4 VIEWSon [...] by: SOLO SAVAGE Date: 2021-09-27 11:31 Normal [facility] Vital Signs Date Time Vital Sign Value Performing Clinician Jessi chowdhury 04-23-2025 10:28-0400 Body weight 161.2 kg Asim Fernandez MD Work Phone: [facility] 03-19-2025 09:07-0400 Body height 187.96 cm Asim Fernandez MD Work Phone: [facility] 03-19-2025 09:07-0400 Body mass index (BMI) [Ratio] 46.2 kg/m2 Asim Fernandez MD Work Phone: [facility] 03-19-2025 09:07-0400 Body weight 163.2 kg Asim Fernandez MD Work Phone: [facility] 03-04-2025 08:41-0400 Body height 187.96 cm Asim Fernandez MD Work Phone: [facility] 03-04-2025 08:41-0400 Body mass index (BMI) [Ratio] 45.6 kg/m2 Asim Fernandez MD Work Phone: [facility] 03-04-2025 08:41-0400 Body weight 161.3 kg Asim Fernandez MD Work Phone: [facility] 01-30-2025 10:28-0400 Body weight 164.9 kg Asim Fernandez MD Work Phone: [facility] 12-26-2024 08:29-0400 Body weight 164 kg [facility] 10-29-2024 08:25-0500 Blood Pressure Location Michele RAYGOZA [facility] [place] 10-29-2024 08:25-0500 Diastolic blood pressure 72 mm[Hg] Michele RAYGOZA [facility] [place] 10-29-2024 08:25-0500 Heart rate 64 /min Michele RAYGOZA [facility] 10-29-2024 08:25-0500 Respiratory rate 16 /min Michele RAYGOZA [facility] [place] 10-29-2024 08:25-0500 Systolic blood pressure 129 mm[Hg] Michele NILL [facility] [place] 09-10-2024 09:50-0500 Diastolic blood pressure 78 mm[Hg] Zena Orzech [facility] 09-10-2024 09:50-0500 Mean blood pressure 99 mm[Hg] Zena Orzech [facility] 09-10-2024 09:50-0500 Systolic blood pressure 140 mm[Hg] Zena Orzech [facility] 09-10-2024 09:27-0500 Blood Pressure Location Zena Orzech [facility] 09-10-2024 09:27-0500 Body temperature 98.6 [degF] Zena Orzech [facility] 09-10-2024 09:27-0500 Diastolic blood pressure 96 mm[Hg] Zena Orzech [facility] 09-10-2024 09:27-0500 Heart rate 69 /min Zena Orzech [facility] 09-10-2024 09:27-0500 Systolic blood pressure 190 mm[Hg] Zena Orzech [facility] 06-11-2024 08:19-0400 Blood Pressure Location Porsche AKHTAR [facility] 06-11-2024 08:19-0400 Diastolic blood pressure 111 mm[Hg] Porsche AKHTAR [facility] 06-11-2024 08:19-0400 Heart rate 71 /min Porsche COOK [facility] 06-11-2024 08:19-0400 Systolic blood pressure 190 mm[Hg] Porsche COOK [facility] 06-06-2023 08:48-0400 Blood Pressure Location Porsche COOK [facility] 06-06-2023 08:48-0400 Diastolic blood pressure 66 mm[Hg] Porsche COOK [facility] 06-06-2023 08:48-0400 Heart rate 83 /min Porsche COOK [facility] 06-06-2023 08:48-0400 Systolic blood pressure 142 mm[Hg] Porsche COOK [facility] 06-17-2022 09:14-0400 Blood Pressure Location Porsche COOK [facility] 06-17-2022 09:14-0400 Diastolic blood pressure 96 mm[Hg] Porsche COOK [facility] 06-17-2022 09:14-0400 Heart rate 67 /min Porsche COOK [facility] 06-17-2022 09:14-0400 Systolic blood pressure 159 mm[Hg] Porsche COOK [facility] 06-10-2022 09:54-0400 Blood Pressure Location Porsche COOK [facility] 06-10-2022 09:54-0400 Diastolic blood pressure 102 mm[Hg] Porsche AKHTAR [facility] 06-10-2022 09:54-0400 Heart rate 68 /min Porsche AKHTAR [facility] 06-10-2022 09:54-0400 Systolic blood pressure 166 mm[Hg] Porsche AKHTAR [facility] 01-21-2022 08:44-0400 Blood Pressure Location Porsche AKHTAR [facility] 01-21-2022 08:44-0400 Diastolic blood pressure 87 mm[Hg] Porsche AKHTAR [facility] 01-21-2022 08:44-0400 Heart rate 72 /min Porsche AKHTAR [facility] 01-21-2022 08:44-0400 Systolic blood pressure 140 mm[Hg] Porsche AKHTAR [facility] Encounters Encounter Date Encounter Type Care Provider Facility Start: 04-23-2025 End: 04-23-2025 ambulatory Asim Fernandez MD Work Phone: [facility] Work Phone: Start: 04-23-2025 End: 04-23-2025 Patient encounter procedure Tanisha Ocampo [facility] Work Phone: Start: 04-09-2025 End: 04-09-2025 Patient encounter procedure Tanisha Ocampo DO -[facility] Work Phone: Start: 04-09-2025 End: 04-09-2025 ambulatory Asim Fernandez MD Work Phone: [facility] Work Phone: Start: 04-09-2025 Non-patient / Non-visit Eyad Amaral MD -[facility] Work Phone: Start: 03-19-2025 End: 03-19-2025 ambulatory Asim Fernandez MD Work Phone: [facility] Work Phone: Start: 03-19-2025 End: 03-19-2025 Patient encounter procedure Tanisha Ocampo DO -[facility] Work Phone: Start: 03-18-2025 End: 03-18-2025 Patient encounter procedure Colleen Miles LOPEZN -CT [facility] Work Phone: Start: 03-18-2025 End: 03-18-2025 ambulatory Asim Fernandez MD Work Phone: [facility] Work Phone: Start: 03-04-2025 End: 03-04-2025 ambulatory Asim Fernandez MD Work Phone: [facility] Work Phone: Start: 03-04-2025 End: 03-04-2025 Patient encounter procedure Colleen Aquino APRN -[facility] Neurosurgery Work Phone: Start: 02-28-2025 End: 02-28-2025 Patient encounter procedure Colleen Aquino [employer] -MRI [facility] Work Phone: Start: 02-28-2025 End: 02-28-2025 ambulatory Asim Fernandez MD Work Phone: [facility] Work Phone: Start: 01-30-2025 End: 01-30-2025 ambulatory Asim Fernandez MD Work Phone: [facility] Work Phone: Start: 01-30-2025 End: 01-30-2025 Patient encounter procedure Asim Fernandez MD Work Phone: [facility] Work Phone: Start: 01-21-2025 End: 01-21-2025 Bamboo flowsheet Loi Benitez [employer] [facility] Start: 01-21-2025 End: 01-21-2025 Bamboo flowsheet Loi Benitez [employer] ENG[employer] [facility] Start: 01-21-2025 End: 01-21-2025 ambulatory Loi Benitez [employer] [facility] Comment on above: Lumbar paraspinal mu scle spasm (Primary Dx); Cervical radiculopathy Start: 01-17-2025 End: 01-17-2025 Bamboo flowsheet Loi Gabriel [employer] ENGINE[employer] [facility] Start: 01-17-2025 End: 01-17-2025 Bamboo flowsheet Loi Gabriel [employer] ENG[employer] [facility] Start: 01-17-2025 End: 01-17-2025 ambulatory Loi Benitez [employer] [facility] Comment on above: Lumbar paraspinal mu scle spasm (Primary Dx); Cervical radiculopathy Start: 01-15-2025 End: 01-15-2025 Bamboo flowsheet Loi Benitez [employer] SYSTEM[employer] ENGINE[employer] [facility] Start: 01-15-2025 End: 01-15-2025 Bamboo flowsheet Loi Benitez [employer] ENGINE[employer] [facility] Start: 01-15-2025 End: 01-15-2025 ambulatory Loi Benitez [employer] [facility] Comment on above: Lumbar paraspinal mu scle spasm (Primary Dx); Cervical radiculopathy Start: 01-09-2025 End: 01-09-2025 Bamboo flowsheet Loi Gabriel [employer] SYSTEMS ENGINE[employer] [facility] Start: 01-09-2025 End: 01-09-2025 Bamboo flowsheet Loi Gabriel [employer] ENGINE[employer] [facility] Start: 01-09-2025 End: 01-09-2025 ambulatory Loi Gabriel [employer] [facility] Comment on above: Lumbar [...] 12-26-2024 ambulatory Asim Fernandez MD Work Phone: [facility] Work Phone: Start: 12-26-2024 End: 12-26-2024 [facility]: Start: 12-09-2024 End: 12-09-2024 ambulatory Heather Turcios MD Facility:[facility] Start: 10-29-2024 End: 10-29-2024 ambulatory Michele RAYGOZA Facility:[facility] Start: 10-29-2024 End: 10-29-2024 Patient encounter procedure Michele RAYGOZA [facility] [place] Start: 10-18-2024 ambulatory Porsche AKHTAR Facility: [facility] Start: 09-10-2024 End: 09-10-2024 ambulatory Zena X Sole Facility:[facility] Start: 09-10-2024 End: 09-10-2024 Patient encounter procedure Zena X Orzech [facility] Start: 06-11-2024 End: 06-11-2024 ambulatory Porsche AKHTAR Facility: [facility] Start: 06-11-2024 End: 06-11-2024 Patient encounter procedure Porsche AKHTAR [facility] [place] Start: 06-10-2024 End: 06-10-2024 ambulatory Heather Turcios MD Facility:[facility] Start: 02-19-2024 End: 02-19-2024 ambulatory Heather Turcios MD Facility:[facility] Start: 02-05-2024 End: 02-05-2024 ambulatory Heather Turcios MD Facility:[facility] Start: 06-06-2023 End: 06-06-2023 Patient encounter procedure Porsche AKHTAR [facility] [place] Start: 06-17-2022 End: 06-17-2022 Patient encounter procedure Porsche AKHTAR [facility] Start: 06-16-2022 End: 06-17-[address] ASIM FERNANDEZ Facility: Start: 06-10-2022 End: 06-10-2022 Patient encounter procedure Porsche AKHTAR [facility] [place] Start: 06-09-2022 End: 06-10-[address] ASIM FERNANDEZ Facility:[facility] Start: 05-29-2022 End: 05-29-[address] ASIM FERNANDEZ Facility:[facility] Start: 05-11-2022 End: 05-11-2022 Patient encounter procedure Prosche AKHTAR [facility] Start: 02-03-2022 Encounter for genera l adult medical examination without abnormal findings DR ASIM FERNANDEZ [facility] Start: 01-28-2022 End: 01-29-[address] ASIM FERNANDEZ Facility:[facility] Start: 01-28-2022 End: 01-29-2022 Encounter for general adult medical examination without abnormal findings DR ASIM FERNANDEZ Facility:[facility] Start: 01-21-2022 End: 01-21-2022 Patient encounter procedure Porsche AKHTAR [facility] Start: 01-20-2022 End: 01-21-[address] ASIM [...] on above: Performed By: #### P SAD ####[facility] [address] [place], [place] [address]NdCullen Aldrich Start: 08-13-2020 Extracorporeal shock wave lithotripsy [...] PT [address] [place] [address] Loi Benitez PTA [facility] Start: 01-15-2025 End: 01-15-2025 ambulatory [facility] Comment on above: Arrived Start: 01-09-2025 End: 01-09-2025 ambulatory [facility] Comment on above: Arrived Start: 01-01-2025 End: 01-01-2025 ambulatory 01/01/2025 10:00 AM EDT Evaluation [facility] [address] [facility] [address] [place] [address] Michael Ram, PT [address] [facility] [address] [place] [address] Arrived [facility] Comment on above: Arrived Start: 12-26-2024 Patient referral [facility] Work Phone: Start: 1965 Screening for malign ant neoplasm of colon [facility] Electromyography [facility] Patient referral [facility] Work Phone: XR Lumbar spine Views [facility] Immunizations Immunization Date Immunization Notes Care Provider Mica biggs 04-19-2022 zoster vaccine recombinant Porsche AKHTAR [facility] 02-12-2022 pneumococcal 20-maría nt conjugate vaccine Porsche AKHTAR [facility] 02-03-2022 zoster vaccine recombinant Porsche AKHTAR [facility] 12-08-2020 SARS-CoV-2 (COVID-19 ) mRNA-1273 vaccine Porsche AKHTAR [facility] 11-17-2020 SARS-CoV-2 (COVID-19 ) mRNA BNT-162b2 vax Porsche AKHTAR [facility] 11-11-2020 SARS-CoV-2 (COVID-19 ) mRNA-3906 vaccine Porsche AKHTAR [facility] Payers Date Payer Category Payer Self-pay 2023 [facility] [id number] 2023 Private Health Insurance [id number]. 315 2023 Unknown 2023 Unknown [id number] 1965 Unknown [id number] 2.840.1.458369.3.57 9.2.593 1964 Unknown [id number] 2.16840.1.710064.3.57 9.2.593 1964 Unknown [id number] 2.16.840.1.774730.3.57 9.2.593 1964 Unknown [id number] 2.16.840.1.315102.3.57 9.2.593 1964 Unknown [id number] 2.16.840.1.577952.3.57 9.2.593 1964 Unknown [id number] 2.16.840.1.877287.3.57 9.2.593 1964 Unknown [id number] 2.16.840.1.280209.3.57 9.2.593 1964 Unknown [id number] 2.16.840.1.831574.3.57 9.2.593 1964 Unknown [id number] 2.16.840.1.227425.3.57 9.2.727 1964 Unknown [id number] 2.16840.1.473917.3.57 9.2.727 1964 Unknown [id number] 2.16.840.1.537482.3.57 9.2.727 1964 Unknown [id number] 2.16840.1.333099.3.57 9.2.727 1964 Unknown [id number] 2.16840.1.608988.3.57 9.2.196 1964 Unknown [id number] 2.840.1.567971.3.57 9.2.196 1964 Unknown [id number] 2.16840.1.405961.3.57 9.2.196 1964 Unknown [id number] 2.16840.1.140175.3.57 9.2.196 1964 Unknown [id number] 2.16840.1.630802.3.57 9.2.1259 1964 Unknown [id number] 2.840.1.646334.3.57 9.2.1259 1964 Unknown [id number] 2.16840.1.847892.3.57 9.2.1259 1964 Unknown [id number] 2.16840.1.057784.3.57 9.2.1259 1964 Unknown [id number] 2.16.840.1.474068.3.57 9.2.1259 1964 Unknown [id number] 2.16840.1.704491.3.57 9.2.1259 1959 Private Health Insurance [id number] Unknown [place] [employer]/BS [id number] Unknown [id number] 2.16.840.1.306285.3.57 9.2.531 Unknown [id number] 2.16.840.1.055764.3.57 9.2.531 Unknown [id number] 2.16.840.1.739544.3.57 9.2.531 Unknown [id number] 2.16.840.1.960300.3.57 9.2.531 Social History Date Type Detail Facility Start: 01-15-2021 End: 12-26-2024 Tobacco smoking status Ex-smoker (finding) [facility] Tobacco smoking status Never [facility] Sex Assigned At Male [facility] Start: 12-26-2024 End: 01-30-2025 Sex Male (finding) [facility] Start: 1965 Sex Assigned At Male F [facility] Tobacco smoking status NHIS Tobacco smoking consumption unknown [facility] Start: 1965 Sex assigned at Not on file [facility] Functional Status Date Assessment Result Facility 10-29-2024 Functional Status N/A [facility] [place] 09-10-2024 Functional Status N/A [facility] 06-11-2024 Functional Status N/A [facility] 06-06-2023 Functional Status N/A [facility] 06-17-2022 Functional Status N/A [facility] 06-10-2022 Functional Status N/A [facility] Clinical Notes 01-21-2022 to 03-18-2025 Note Date & Type Note Facility 03-18-2025 Radiology Diagnostic study note [facility] [address] [place] [address] CT Scan Report Signed Patient: Liz Hernandez MR#: [id number] : 1965 Acct:[id number] Age/Sex: 59 / M ADM Date: 5 [...] with vacuum disc phenomenon L5-S1 and L2-L3. Yrop-wz-ljfirzce intervertebral space narrowing with mediastinal L3-L5. Multilevel moderate severe facet arthropathy greatest L4-S1. No fracture malalignment multilevel central canal and foraminal encroachment is better evaluated on recent MRI. CT/CT lumbar spine wo con IMPRESSION: Moderate severe multilevel degenerative changes. Negative acute fracture or malalignment Impression dictated by: Christopher Mendes M.D. 03/18/2025 9:20 AM Dictation Location: [place] [address] Transcribed By: [facility] 03/18/25919 Dictated By: Christopher Mendes MD 03/18/2516 Signed By: 03/18/[address] [facility] Work Phone: 01-30-2025 Evaluation note Diagnosis [...] 8:35am Severe back pain acute March 9:02am [facility] Work Phone: 1(435) 464-738705-29-2025 Evaluation note* Diagnosis Onset Date Resolution Status [...] lumbar radiculopathy acute April 23, 2025 10:24am [facility] Work Phone: 1(408) 649-297905-06-2025 History of Present illness Narrative* Michael Ram, [...] due to back and Left LE. 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 General Internal Medicine Doctor Goals: To be met in 10 weeks [...] Please sign below. Date: documented in [facility] [id number] History of Present illness Narrative* Michael Ram, [...] due to back and Left LE. 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 General Internal Medicine Doctor Goals: To be met in 10 weeks [...] Please sign below. Date[facility]* Diagnosis Onset Date Resolution Status Admit Date Left lumbar radiculopathy acute December 26, 2024 8:28am Numbness and tingling of foot acute December 26, 2024 8:28am [facility] Work Phone: 1(456) 113-496304-24-2025 Evaluation note* Diagnosis Onset Date Resolution Status Admit Date Left lumbar radiculopathy acute December 26, 2024 8:28am Numbness and tingling of foot acute December 26, 2024 8:28am Left lumbar radiculopathy acute January 30, 2025 10:28am Neurogenic claudication acute M ay 2024 10:28am Numbness and tingling of foot acute January 30, 2025 10:28am [facility] Work Phone: 1(771) 293-185204-24-2025 Evaluation note* Diagnosis Onset Date Resolution Status [...] of foot acute March 04, 2025 8:35am [facility] Work Phone: 1(157) 250-872102-25-2025 NoteGeneral Surgery Office/Clinic Note Chief Complaint consultation [...] tab(s), Oral, Alexus (more content not included)... [facility] Comment: Electronically Signed By: JARET CANTOR, Michele Campbell\Date and Time Signed: 10/29/24 08:56 EST 09-10-2024 Hospital Discharge instructions Patient Education 09/10/2024 09:53:34 Kidney Stones, Dngz-ck-Jawn Kidney Stones Kidney stones are rock-like masses [...] Follow these instructions at home: Medicines Take ynlu-abx-vuxqexp and prescription medicines only as told by [...] provider. Document Revised: 04/14/2023 Document Reviewed: 04/14/2023 [employer] Patient Education 2023 [employer]. Follow Up Care 08/15/2024 10:52:33 With:GIOVANA CANTOR, Porsche Kwan, URL Address: [facility] [address] [place] [id number]- When: Unknown [facility] [phone] NotePatient Education Urology Kidney Stones Kidney stones [...] these instructions at home: Medicines ??? Take upse-uzy-okqrvxr and prescription medicines only as told by [...] provider. Document Revised: 04/14/2023 Document Reviewed: 04/14/2023 [employer] Patient Education ? 2023 [employer].[facility] 06-11-2024 Hospital Discharge instructions Patient Education [...] you may eat and drink normally. Take sgqu-lcs-lghriig and prescription medicines only as told by your health care provider. Let your health care provider know about any medicines that you are taking, including oyro-gqs-drvdaxx medicines, vitamins, herbs, and supplements. Choose a [...] provider. Document Revised: 02/25/2022 Document Reviewed: 02/25/2022 [employer] Patient Education 2023 [employer]. 06/11/2024 08:23:10 Dietary Guidelines to Help Prevent [...] include: ?8 oz (237 mL) of milk, cnlqguf-envhimzufcxy-uekau milk, and calcium- fortifiedfruit juice. Calcium-fortified means [...] ?Spinach (cooked), rhubarb, beets, sweet potatoes, and Yemeni chard. ?Peanuts. ?Potato chips, surinamese fries, and baked potatoes with skin on. ?Nuts and nut products. ?Chocolate. If you regularly take a diuretic medicine, make sure to eat at least 1 or 2 servings of fruits or vegetables that are high in potassium each day. These include: ?Avocado. ?Banana. ?Cleves, prune, carrot, or tomato juice. ?Baked potato. [...] magnesium, fish oil, or vitamin B6. Take buzg-rpp-jetcgwg and prescription medicines only as told by [...] Casseroles. Pizza. Lasagna. Frozen meals. Potato chips. Puerto Rican fries. The items listed above may not [...] provider. Document Revised: 12/01/2022 Document Reviewed: 12/01/2022 [employer] Patient Education 2023 [employer]. Follow Up Care 06/06/2023 09:30:15 With:GIOVANA CANTOR, Porsche Kwan, URL Address: [facility] [address] [place] [id number]- When: Unknown [facility] [phone] NotePatient Education Nephrology Dietary Guidelines to Help [...] ? 8 oz (237 mL) of milk, gridhzw-pbkowickxdil-zhnnf milk, and calcium- fortifiedfruit juice. Calcium-fortified means [...] Spinach (cooked), rhubarb, beets, sweet potatoes, and Yemeni chard. ? Peanuts. ? Potato chips, surinamese fries, and baked potatoes with skin on. ? Nuts and nut products. ? Chocolate. ? If you regularly take a diuretic medicine, make sure to eat at least 1 or 2 servings of fruits orvegetables that are high in potassium each day. These include: ? Avocado. ? Banana. ? Cleves, prune, carrot, or tomato juice. ? Baked [...] fish oil, or vitamin B6. ? Take przg-myz-jwjcxby and prescription medicines only as told by your health care provider. Theseinclude suppleme (more content not included)...[facility] Discharge instructions Patient Education 06/06/2023 [...] include: ?8 oz (237 mL) of milk, lifzcyo-blazaxzfwpiy-maepm milk, and calcium- fortifiedfruit juice. Calcium-fortified means [...] ?Spinach (cooked), rhubarb, beets, sweet potatoes, and Yemeni chard. ?Peanuts. ?Potato chips, surinamese fries, and baked potatoes with skin on. ?Nuts and nut products. ?Chocolate. If you regularly take a diuretic medicine, make sure to eat at least 1 or 2 servings of fruits or vegetables that are high in potassium each day. These include: ?Avocado. ?Banana. ?Cleves, prune, carrot, or tomato juice. ?Baked potato. [...] magnesium, fish oil, or vitamin B6. Take bnyb-exr-thgjxvc and prescription medicines only as told by [...] Casseroles. Pizza. Lasagna. Frozen meals. Potato chips. Puerto Rican fries. The items listed above may not [...] provider. Document Revised: 05/02/2022 Document Reviewed: 05/02/2022 [employer] Patient Education 2022 [employer]. Follow Up Care 01/21/2022 09:03:45 With:GIOVANA CANTOR, Porsche Kwan, URL Address: [facility] [address] [place], [place] [id number]- When:Within 1 Year(s) Comments:Oksana [facility] [id number] Hospital Discharge instructions Patient Education 06/17/2022 09:35:20 [...] include: ?Spinach. ?Rhubarb. ?Beets. ?Potato chips and surinamese fries. ?Nuts. If you regularly take a diuretic medicine, make sure to eat at least 1 2 fruits or vegetables high in potassium each day. These include: ?Avocado. ?Banana. ?Cleves, prune, carrot, or tomato juice. ?Baked potato. [...] Casseroles. Pizza. Lasagna. Frozen meals. Potato chips. Puerto Rican fries. Summary You can reduce your risk [...] 12/16/2011 Document Revised: 12/11/2019 Document Reviewed: 08/01/2017 [employer] Patient Education 2020 [employer] Follow Up Care 06/10/2022 10:24:22 With:GIOVANA CANTOR, Porsche Kwan, URL Address: [address] [address]- When:6 months Comments:w/ MT [facility] 10-07-2022 Hospital Discharge instructions Patient Education 06/10/2022 [...] include: ?Spinach. ?Rhubarb. ?Beets. ?Potato chips and surinamese fries. ?Nuts. If you regularly take a diuretic medicine, make sure to eat at least 1 2 fruits or vegetables high in potassium each day. These include: ?Avocado. ?Banana. ?Cleves, prune, carrot, or tomato juice. ?Baked potato. [...] Casseroles. Pizza. Lasagna. Frozen meals. Potato chips. Puerto Rican fries. Summary You can reduce your risk [...] 12/16/2011 Document Revised: 12/11/2019 Document Reviewed: 08/01/2017 [employer] Patient Education 2019 [employer]. Follow Up Care 05/30/2022 09:25:01 With:GIOVANA CANTOR, Porsche Kwan, URL Address: [address] [place] [address]- When:2 weeks Comments:KUB [facility] [phone] Hospital Discharge instructions Patient Education 01/21/2022 08:33:55 [...] urethra. Follow these instructions at home: Take sddk-hbn-rabuhgb and prescription medicines only as told by [...] 08/21/2006 Document Revised: 07/16/2019 Document Reviewed: 09/25/2017 [employer] Patient Education [employer]. Follow Up Care 01/15/2021 08:45:48 With:Porsche AKHTAR MD, URL Address: [facility] [place] [address]- When:01/21/2023 Comments:with PSA and x-ray [facility] Evaluation + Plan note Future Appointments Appointment Date:02/24/2023 08:00:00 AM Scheduled Provider:Porsche AKHTAR MD Location:[facility] Appointment Type:URO Office Visit [facility] Evaluation + Plan note Future Appointments Appointment Date:02/24/2023 08:00:00 AM Scheduled Provider:Porsche AKHTAR MD Location:[facility] Appointment Type:URO Office Visit Future Scheduled Tests Laboratory* PT & PTT 04/20/22 * BUN 04/20/22 * Creatinine 04/20/22 * Electrolyte Panel 04/20/22 * CBC w/ Auto Diff [facility]ments Appointment Date:06/17/2022 09:15:00 AM Scheduled Provider:Porsche AKHTAR MD Location:[facility] Appointment Type:URO Office Visit Appointment Date:02/24/2023 08:00:00 AM Scheduled Provider:Porsche AKHTAR MD Location:[facility] [place] Appointment Type:URO Office Visit [facility] evaluation + Plan note Future Appointments Appointment Date:06/11/2024 08:00:00 AM Scheduled Provider:Porsche AKHTAR MD Location:[facility] [place] Appointment Type:URO Office Visit [facility] [place] evaluation + Plan note Future Appointments Appointment Date:06/10/2025 08:00:00 AM Scheduled Provider:[facility] Office Visit [facility] [place] evaluation noteNo assessment information available [facility] Work Phone: evaluation note* Diagnosis Lumbar paraspinal [...] available for this section [facility] [place] Hospital Discharge instructions No data available for this section [facility] instructionsAmbulatory Orders* Referral to PT / OT / Speech (PT/OT/SP) Location: None [facility] Work Phone: Hospital Discharge instructionsAmbulatory Orders* Referral to Weight Management Location: None [facility] Work Phone: Progress note No data available for this section [facility] for referral (narrative)No reason for referral information availableCincinnati [facility] Work Phone: Reason for visit Narrative* Rehabilitation - Outpatient (Routine) - Pending Review Specialty Diagnoses / Procedures Referred By Cindy cyr Referred To Contact Physical Therapy Diagnoses Low back pain, unspecified Procedures RI PHYSICAL THERAPY EVALUATION LOW COMPLEX 20 MINS RI OFFICE/OUTPATIENT NEW HIGH MDM 60 MINUTES Colleen Aquino MD [address] [address] Phone: tel: fax: Michael Ram, PT [address] [address] Phone: tel: fax: Referral ID Status Reason Start Date Expiration Date V isits Requested Visits Authorized [id number] Pending Review 01/01/2025 06/30/2025 2 2 [facility] HealthcareReason for visit Narrative* Rehabilitation - Outpatient (Routine) - Authorized Specialty Diagnoses / Procedures Referred By Cindy cyr Referred To Contact Physical Therapy Diagnoses Low back pain, unspecified Procedures RI PHYSICAL THERAPY EVALUATION LOW COMPLEX 20 MINS RI OFFICE/OUTPATIENT NEW HIGH MDM 60 MINUTES Colleen Aquino MD [address] [place] [address] Phone: tel: fax: Michael Ram, PT [address] [address] Phone: tel: fax: Referral ID Status Reason Start Date Expiration Date V isits Requested Visits Authorized [id number] Authorized 01/01/2025 03/03/2025 8 8 [facility] for [facility] Narrative* Rehabilitation - Outpatient (Routine) - Closed Specialty Diagnoses / Procedures Referred By Cindy cyr Referred To Contact Physical Therapy Diagnoses Low back pain, unspecified Procedures RI PHYSICAL THERAPY EVALUATION LOW COMPLEX 20 MINS RI OFFICE/OUTPATIENT NEW HIGH MDM 60 MINUTES Colleen Aquino MD 703 [facility] [address] [place] [address] Phone: tel: fax: Michael Ram, PT 112 [facility] [address] [place] [address] Phone: tel: fax: Referral ID Status Reason Start Date Expiration Date Visits Re quested Visits Authorized [id number] Closed 01/01/2025 03/03/2025 8 8 [facility] [...] December 26, 2024 End: December 26, 2024 [employer] Communications Maintainer Relationship Specialty Start Date End Date Asim Fernandez MD [address] [place] [facility] [place] [address] PCP - General Family Medicine 01/17/25 [employer] Maintainer Relationship Specialty Start Date End Date Asim Fernandez MD [address] [place] [facility] [place] [address] PCP - General Family Medicine 01/17/25 [employer] Maintainer Relationship Specialty Start Date End Date Asim Fernandez MD [address] [place] [facility] [place] [address] PCP - General Family Medicine 01/17/25 Team [...] content) DATE CREATED AUTHOR [facility]/07/2022 [facility] DATE CREATED AUTHOR AUTHOR'S ORGANIZ ATION 10/30/2024 [facility] DATE CREATED AUTHOR AUTHOR'S ORGANIZ ATION 12/15/2024 [facility] DATE CREATED AUTHOR AUTHOR'S ORGANIZ ATION 01/22/2025 [facility] DATE CREATED AUTHOR AUTHOR'S ORGANIZ ATION 04/26/2025 [facility] Goals (unrecognized section and content) [...] BE BASED ON THE PRIMARY CLINICAL RECORDS. [facility] CenterPel[facility] [employer] [facility]. provides no warranty or guarantee of the accuracy or completeness of information in this document.
== END 2025-06-09 09:17 | disposition home or self-care (01) ==
LOC: RAD 09:17
PROVIDERS: PCP Family Medicine; Visit Provider Urology
DX: N20.0 Calculus of kidney (principal)
CPT/HCPCS: 74018